=== PATIENT | male | born 1960 | race Caucasian/White ===

== ENCOUNTER 2018-04-04 14:20 | Emergency (ER) | payer OTHER ==
--- NOTE | 2018-04-04 15:04 | RAD REPORT ---
EXAM DESCRIPTION: RAD - Lumbar Spine 3 Views - 04/04/2018 2:56 pm CLINICAL HISTORY: Back pain FINDINGS: Mild anterior subluxation of L5 on S1 is seen. Marked disc space narrowing is present. Mild posterior subluxation of L4 on L5 is present. The bones are osteoporotic. No fracture is visualized
--- NOTE | 2018-04-04 15:38 | EDPHYS ---
Physician Documentation [facility] Name: Gregory Dumont Age: 57 yrs Sex: Male : 1960 Arrival Date: 04/04/2018 Time: 14:22 Bed 15 Private MD: Lucy Gomes ED Physician Cameron Avery HPI: 04/04 15:34 This 57 yrs old Male presents to ER via Ambulatory with complaints of Low rn Back Pain. 15:34 The patient presents with pain that is acute. The symptoms are located in the low back. rn The pain does not radiate. Onset: The symptoms/episode began/occurred 4 day(s) ago. Associated signs and symptoms: The patient has no apparent associated signs or symptoms, Pertinent negatives: abdominal pain, constipation, incontinence, numbness, tingling, urinary retention, weakness. Severity of symptoms: At their worst the symptoms were moderate, in the emergency department the symptoms have improved. The patient has experienced similar episodes in the past. Reports left lower back pain, no trauma, has had before but problems with "tailbone" disks, no bowel/bladder issues. . Historical: - Allergies: 14:30 NKA; aa5 - Home Meds: 15:09 Seroquel 400 mg Oral tab 1 tab once daily [Active]; tw2 - PMHx: 14:30 Bipolar disorder; CVA; HEP C; HYPOGLYCEMIA; Irregular heart rate; aa5 - PSHx: 14:30 None; aa5 - Immunization history:: Adult Immunizations unknown. - Social history:: Smoking status: Patient uses tobacco products, denies chronic smoking, but will smoke occasionally. - Ebola Screening: : No symptoms or risks identified at this time. - Family history:: not pertinent. - Hospitalizations: : No recent hospitalization is reported. ROS: 15:34 Constitutional: Negative for fever, chills, and weight loss, Cardiovascular: Negative rn for chest pain, palpitations, and edema, Respiratory: Negative for shortness of breath, cough, wheezing, and pleuritic chest pain, Abdomen/GI: Negative for abdominal pain, nausea, vomiting, diarrhea, and constipation, Back: Negative for injury MS/Extremity: Negative for injury and deformity, Skin: Negative for injury, rash, and discoloration, Neuro: Negative for headache, weakness, numbness, tingling, and seizure. Exam: 15:34 Constitutional: This is a well developed, well nourished patient who is awake, alert, rn and in no acute distress. Abdomen/GI: Soft, non-tender, with normal bowel sounds. No distension or tympany. No guarding or rebound. No evidence of tenderness throughout. Back: No spinal tenderness. No costovertebral tenderness. Full range of motion. Skin: Warm, dry with normal turgor. Normal color with no rashes, no lesions, and no evidence of cellulitis. MS/ Extremity: Pulses equal, no cyanosis. Neurovascular intact. Full, normal range of motion. Equal circumference. Neuro: Awake and alert, GCS 15, oriented to person, place, time, and situation. Cranial nerves II-XII grossly intact. Motor strength 5/5 in all extremities. Sensory grossly intact. Cerebellar exam normal. Normal gait. Vital Signs: 14:30 BP 116 / 90; Pulse 80; Resp 16 S; Temp 97.9(TE); Pulse Ox 95% on R/A; Weight 72.57 kg aa5 (R); Height 5 ft. 11 in. (180.34 cm) (R); Pain 10/10; 15:14 BP 126 / 86; Pulse 62; Resp 17; Pulse Ox 96% on R/A; tw2 15:56 BP 116 / 89; Pulse 64; Resp 18; Pulse Ox 99% on R/A; tw2 14:30 Body Mass Index 22.32 (72.57 kg, 180.34 cm) aa5 MDM: 14:31 Patient medically screened. rn 15:34 Differential diagnosis: arthritis, strain, Herniated disc. Data reviewed: vital signs, rn nurses notes, radiologic studies, plain films, and as a result, I will discharge patient. Counseling: I had a detailed discussion with the patient and/or guardian regarding: the historical points, exam findings, and any diagnostic results supporting the discharge/admit diagnosis, radiology results, the need for outpatient follow up, to return to the emergency department if symptoms worsen or persist or if there are any questions or concerns that arise at home. Special discussion: I discussed with the patient/guardian in detail that at this point there is no indication for admission to the hospital. It is understood, however, that if the symptoms persist or worsen the patient needs to return immediately for re-evaluation. 04/04 14:38 Order name: XRAY Lumbar Spine (3 Views); Complete Time: 15:34 rn 04/04 14:39 Order name: Urine Dipstick-Ancillary (obtain specimen); Complete Time: 14:56 rn Administered Medications: No medications were administered Disposition: 04/04/18 15:37 Discharged to Home. Impression: Low back pain, Lumbosacral disc herniation and subluxation. - Condition is Stable. - Discharge Instructions: Back Pain, Adult, Herniated Disk, Musculoskeletal Pain. - Prescriptions for Cyclobenzaprine 10 mg Oral Tablet - take 1 tablet by ORAL route every 8 hours As needed; 20 tablet. Medrol (Casimiro) 4 mg Oral Tablets, Dose Pack - take 1 tablet by ORAL route as directed - follow package instructions; 1 packet. - Medication Reconciliation Form, Thank You Letter, Antibiotic Education, Prescription Opioid Use form. - Follow up: Private Physician; When: As needed; Reason: Recheck today's complaints, Re-evaluation by your physician. - Problem is new. - Symptoms have improved. Signatures: Dispatcher [employer] EDMS Cameron Avery MD MD rn Calderon, Audri RN RN aa5 Kaylee Tate RN RN tw2 Corrections: (The following items were deleted from the chart) 15:57 15:37 04/04/2018 15:37 Discharged to Home. Impression: Low back pain; Lumbosacral disc tw2 herniation and subluxation. Condition is Stable. Forms are Medication Reconciliation Form, Thank You Letter, Antibiotic Education, Prescription Opioid Use. Follow up: Private Physician; When: As needed; Reason: Recheck today's complaints, Re-evaluation by your physician. Problem is new. Symptoms have improved. rn
--- NOTE | 2018-04-04 15:38 | ER ---
Nurse's Notes [facility] Name: Gregory Dumont Age: 57 yrs Sex: Male : 1960 Arrival Date: 04/04/2018 Time: 14:22 Bed 15 Private MD: Lucy Gomes Diagnosis: Low back pain;Lumbosacral disc herniation and subluxation Presentation: 04/04 14:28 Presenting complaint: Patient states: left low back pain that began 4 days ago. Pt aa5 denies urinary symptoms, denies pain radiating, denies known injury. Transition of care: patient was not received from another setting of care. Onset of symptoms was March 2018. Risk Assessment: Do you want to hurt yourself or someone else? Patient reports no desire to harm self or others. Initial Sepsis Screen: Does the patient meet any 2 criteria? No. Patient's initial sepsis screen is negative. Does the patient have a suspected source of infection? No. Patient's initial sepsis screen is negative. Care prior to arrival: None. 14:28 Method Of Arrival: Ambulatory aa5 14:28 Acuity: MARION 4 aa5 Triage Assessment: 15:57 General: Behavior is calm. tw2 Historical: - Allergies: 14:30 NKA; aa5 - Home Meds: 15:09 Seroquel 400 mg Oral tab 1 tab once daily [Active]; tw2 - PMHx: 14:30 Bipolar disorder; CVA; HEP C; HYPOGLYCEMIA; Irregular heart rate; aa5 - PSHx: 14:30 None; aa5 - Immunization history:: Adult Immunizations unknown. - Social history:: Smoking status: Patient uses tobacco products, denies chronic smoking, but will smoke occasionally. - Ebola Screening: : No symptoms or risks identified at this time. - Family history:: not pertinent. - Hospitalizations: : No recent hospitalization is reported. Screenin:08 Abuse screen: Denies threats or abuse. Nutritional screening: No deficits noted. tw2 Tuberculosis screening: No symptoms or risk factors identified. Fall Risk None identified. Assessment: 14:30 General: Appears in no apparent distress. Pain: Complains of pain in left low back and tw2 right low back. Neuro: Level of Consciousness is awake, alert, obeys commands, Oriented to person, place, time, situation. Cardiovascular: Denies chest pain, palpitations, Heart tones S1 S2 Capillary refill < 3 seconds Patient's skin is warm and dry. Respiratory: Airway is patent Respiratory effort is even, unlabored, Respiratory pattern is regular, symmetrical, Breath sounds are clear bilaterally. GI: Abdomen is round non-distended, Bowel sounds present X 4 quads. : No signs and/or symptoms were reported regarding the genitourinary system. EENT: No signs and/or symptoms were reported regarding the EENT system. EENT:. Derm: No signs and/or symptoms reported regarding the dermatologic system. Musculoskeletal: Range of motion: intact in all extremities, Reports pain in low back area. 15:14 Reassessment: Patient appears in no apparent distress at this time. No changes from tw2 previously documented assessment. Patient and/or family updated on plan of care and expected duration. Pain level reassessed. Patient is alert, oriented x 3, equal unlabored respirations, skin warm/dry/pink. 15:56 Reassessment: Patient appears in no apparent distress at this time. No changes from tw2 previously documented assessment. Patient and/or family updated on plan of care and expected duration. Pain level reassessed. Patient is alert, oriented x 3, equal unlabored respirations, skin warm/dry/pink. Vital Signs: 14:30 BP 116 / 90; Pulse 80; Resp 16 S; Temp 97.9(TE); Pulse Ox 95% on R/A; Weight 72.57 kg aa5 (R); Height 5 ft. 11 in. (180.34 cm) (R); Pain 10/10; 15:14 BP 126 / 86; Pulse 62; Resp 17; Pulse Ox 96% on R/A; tw2 15:56 BP 116 / 89; Pulse 64; Resp 18; Pulse Ox 99% on R/A; tw2 14:30 Body Mass Index 22.32 (72.57 kg, 180.34 cm) aa5 ED Course: 14:22 Patient arrived in ED. sb2 14:22 Lucy Gomes MD is Private Physician. sb2 14:29 Arm band placed on. aa5 14:30 Triage completed. aa5 14:30 Bed in low position. Call light in reach. Pulse ox on. NIBP on. tw2 14:31 Cameron Avery MD is Attending Physician. rn 14:39 Tate, Kaylee, RN is Primary Nurse. tw2 14:54 Patient moved to radiology via wheelchair. ml 14:54 X-ray completed. Patient tolerated procedure well. ml 14:54 Patient moved back from radiology. ml 14:55 XRAY Lumbar Spine (3 Views) In Process Unspecified. EDMS 15:56 No provider procedures requiring assistance completed. Patient did not have IV access tw2 during this emergency room visit. Administered Medications: No medications were administered Outcome: 15:37 Discharge ordered by . rn 15:56 Discharged to home ambulatory, with significant other. tw2 15:56 Condition: stable 15:56 Discharge instructions given to patient, significant other, Instructed on discharge instructions, follow up and referral plans. no drinking with medication, no driving heavy equipment, medication usage, Demonstrated understanding of instructions, follow-up care, medications, Prescriptions given X 2. 15:57 Patient left the ED. tw2 Signatures: Dispatcher [employer] EDMS Norma Leon Cameron Avery MD MD rn Calderon, Audri, RN RN aa5 Kaylee Tate RN RN tw2 Roro Cheng sb2 Corrections: (The following items were deleted from the chart) 14:31 14:28 Presenting complaint: Patient states: left low back pain that began 4 days ago. aa5 Pt denies urinary symptoms, denies pain radiating. aa5
[2018-04-04 16:04] VITALS: TEMP 97.9
[2018-04-04 16:06] VITALS: BP 116/89; O2SAT 99
== END 2018-04-04 15:57 | disposition home or self-care (01) ==
LOC: ER 14:20
DX: M51.27 Other intervertebral disc displacement, lumbosacral region (principal); B19.20 Unspecified viral hepatitis C without hepatic coma; E16.2 Hypoglycemia, unspecified; F17.200 Nicotine dependence, unspecified, uncomplicated; Z86.73 Personal history of transient ischemic attack (TIA), and cerebral infarction without residual deficits
CPT/HCPCS: 72100; 99283

== ENCOUNTER 2018-04-22 18:32 | Emergency (ER) | payer OTHER ==
[2018-04-22] MEDS ORDERED: CODEINE 30MG/APAP 300MG TAB ONE (20:07)
--- NOTE | 2018-04-22 20:21 | RAD REPORT ---
EXAM DESCRIPTION: RAD - Knee Right 3 View - 04/22/2018 7:26 pm CLINICAL HISTORY: Right knee pain FINDINGS: Postsurgical changes of a right knee arthroplasty are seen. The prosthesis is in good posi tion without evidence loosening. No fracture or dislocation is seen.
--- NOTE | 2018-04-22 20:50 | ER ---
Nurse's Notes [facility] Name: Gregory Dumont Age: 57 yrs Sex: Male : 1960 Arrival Date: 04/22/2018 Time: 18:37 Bed 23 Private MD: Lucy Gomes Diagnosis: Pain in right knee Presentation: 04/22 18:38 Presenting complaint: Patient states: my R knee is hurting since this morning; both my hj knees have had surgery; denies swelling; denies trauma to the area;. Transition of care: patient was not received from another setting of care. Onset of symptoms was April 22, 2018. Risk Assessment: Do you want to hurt yourself or someone else? Patient reports no desire to harm self or others. Initial Sepsis Screen: Does the patient meet any 2 criteria? No. Patient's initial sepsis screen is negative. Does the patient have a suspected source of infection? No. Patient's initial sepsis screen is negative. Care prior to arrival: None. 18:38 Method Of Arrival: Ambulatory 18:38 Acuity: MARION 4 hj Triage Assessment: 18:40 General: Appears in no apparent distress. uncomfortable, Behavior is calm, cooperative, hj appropriate for age. Pain: Complains of pain in right knee. Historical: - Allergies: 18:40 NKA; hj - Home Meds: 18:40 Seroquel 400 mg Oral tab 1 tab once daily [Active]; Trazodone Oral [Active]; [place] hj Carbonate Oral [Active]; Depakote Oral [Active]; - PMHx: 18:40 Bipolar disorder; CVA; HEP C; HYPOGLYCEMIA; Irregular heart rate; hj - PSHx: 18:40 Knee surgery; hj - Immunization history:: Adult Immunizations not immunized. - Social history:: Smoking status: Patient uses tobacco products, smokes one pack cigarettes per day. Patient/guardian denies using alcohol. - Ebola Screening: : Patient negative for fever greater than or equal to 101.5 degrees Fahrenheit, and additional compatible Ebola Virus Disease symptoms Patient denies exposure to infectious person Patient denies travel to an Ebola-affected area in the 21 days before illness onset. Screenin:40 Abuse screen: Denies threats or abuse. Denies injuries from another. Nutritional hj screening: No deficits noted. Tuberculosis screening: No symptoms or risk factors identified. Fall Risk None identified. Assessment: 19:07 General: Appears in no apparent distress. comfortable, slender, well groomed, well tl3 developed, well nourished, Behavior is calm, cooperative, appropriate for age. Pain: Complains of pain in right knee Pain currently is 8 out of 10 on a pain scale. Neuro: Level of Consciousness is awake, alert, obeys commands, Oriented to person, place, time, situation, Appropriate for age. Cardiovascular: Patient's skin is warm and dry. Respiratory: Airway is patent Respiratory effort is even, unlabored, Respiratory pattern is regular, symmetrical. GI: No signs and/or symptoms were reported involving the gastrointestinal system. : No signs and/or symptoms were reported regarding the genitourinary system. EENT: No signs and/or symptoms were reported regarding the EENT system. Derm: No signs and/or symptoms reported regarding the dermatologic system. Musculoskeletal: No signs and/or symptoms reported regarding the musculoskeletal system. 20:08 Reassessment: Patient appears in no apparent distress at this time. No changes from tl3 previously documented assessment. Patient and/or family updated on plan of care and expected duration. Pain level reassessed. Patient is alert, oriented x 3, equal unlabored respirations, skin warm/dry/pink. 21:30 Reassessment: Patient appears in no apparent distress at this time. No changes from tl3 previously documented assessment. Patient and/or family updated on plan of care and expected duration. Pain level reassessed. Patient is alert, oriented x 3, equal unlabored respirations, skin warm/dry/pink. Vital Signs: 18:41 BP 125 / 93; Pulse 97; Resp 18; Temp 98.0(O); Pulse Ox 96% on R/A; Weight 77.11 kg; Height 5 ft. 11 in. (180.34 cm); Pain 10/10; 20:08 BP 121 / 83; Pulse 70; Resp 18; Pulse Ox 99% ; tl3 21:30 BP 132 / 89; Pulse 71; Resp 18; Pulse Ox 96% ; tl3 18:41 Body Mass Index 23.71 (77.11 kg, 180.34 cm) ED Course: 18:37 Patient arrived in ED. mr 18:37 Lucy Gomes MD is Private Physician. mr 18:39 Triage completed. hj 18:40 Arm band placed on right wrist. hj 18:40 Patient has correct armband on for positive identification. Bed in low position. Call hj light in reach. Side rails up X 1. 18:59 [facility] pm1 18:59 Bjorn Nuno MD is Attending Physician. pm1 19:06 Karena Swenson, RN is Primary Nurse. tl3 19:07 Awaiting radiology results. tl3 19:07 No provider procedures requiring assistance completed. X-ray(s) taken. Patient did not tl3 have IV access during this emergency room visit. 19:26 XRAY Knee RIGHT 3 view In Process Unspecified. EDMS 20:49 Panfilo Ruiz MD is Referral Physician. pm1 Administered Medications: 20:09 Drug: Tylenol #3 (300 mg-30 mg) 1 tablet Route: PO; tl3 Outcome: 20:49 Discharge ordered by . pm1 21:57 Discharged to home ambulatory. mg2 21:57 Condition: good 22:21 Patient left the ED. bb 04/23 01:11 Discharge instructions given to patient, Instructed on discharge instructions, follow tl3 up and referral plans. medication usage, Demonstrated understanding of instructions, follow-up care, medications, Prescriptions given X 1. Signatures: Dispatcher [employer] [facility] Carli Taylor Brenda, RN RN bb Lucas Chavez RN RN Himanshu Yates NP REHAB ASSISTANT pm1 Karena Swenson, NIKI PRINCE tl3 Delroy Hernandez RN RN mg2 Corrections: (The following items were deleted from the chart) 04/22 18:42 18:41 Pulse 97bpm; Resp 18bpm; Pulse Ox 96% RA; Temp 98.0F Oral; 77.11 kg; Height 5 ft. hj 11 in.; BMI: 23.7; Pain 10/10; hj
--- NOTE | 2018-04-22 20:50 | EDPHYS ---
Physician Documentation [facility] Name: Gregory Dumont Age: 57 yrs Sex: Male : 1960 Arrival Date: 04/22/2018 Time: 18:37 Bed 23 Private MD: Lucy Gomes ED Physician Bjorn Nuno HPI: 04/22 19:30 This 57 yrs old Male presents to ER via Ambulatory with complaints of Knee pm1 Pain. 19:30 The patient presents with pain. The complaints affect the right knee. Context: The pm1 problem was sustained at home, resulted from an unknown cause, the patient can fully bear weight, the patient is able to ambulate, Problem is a result from a previous injury: No. Onset: The symptoms/episode began/occurred 2 day(s) ago. Modifying factors: the symptoms are aggravated by movement. Associated signs and symptoms: Pertinent negatives calf tenderness, fever, swelling, warmth. Treatment prior to arrival includes: no previous treatment. Severity of symptoms: in the emergency department the symptoms are unchanged. The patient has not experienced similar symptoms in the past. Patient with bilateral knee surgery from Dr. Dubon 1 year ago. Patient without any knee issues since. Two days ago onset of right knee pain. No trauma. No swelling or redness. No fevers. Historical: - Allergies: 18:40 NKA; hj - Home Meds: 18:40 Seroquel 400 mg Oral tab 1 tab once daily [Active]; Trazodone Oral [Active]; [place] hj Carbonate Oral [Active]; Depakote Oral [Active]; - PMHx: 18:40 Bipolar disorder; CVA; HEP C; HYPOGLYCEMIA; Irregular heart rate; hj - PSHx: 18:40 Knee surgery; hj - Immunization history:: Adult Immunizations not immunized. - Social history:: Smoking status: Patient uses tobacco products, smokes one pack cigarettes per day. Patient/guardian denies using alcohol. - Ebola Screening: : Patient negative for fever greater than or equal to 101.5 degrees Fahrenheit, and additional compatible Ebola Virus Disease symptoms Patient denies exposure to infectious person Patient denies travel to an Ebola-affected area in the 21 days before illness onset. ROS: 19:30 Constitutional: Negative for fever, chills, and weight loss, Eyes: Negative for injury, pm1 pain, redness, and discharge, ENT: Negative for injury, pain, and discharge, Neck: Negative for injury, pain, and swelling, Cardiovascular: Negative for chest pain, palpitations, and edema, Respiratory: Negative for shortness of breath, cough, wheezing, and pleuritic chest pain, Abdomen/GI: Negative for abdominal pain, nausea, vomiting, diarrhea, and constipation, Back: Negative for injury and pain, : Negative for injury, bleeding, discharge, and swelling. 19:30 Skin: Negative for injury, rash, and discoloration, Neuro: Negative for headache, weakness, numbness, tingling, and seizure. 19:30 MS/extremity: Positive for pain, of the right knee, Negative for erythema, swelling. Exam: 19:30 Constitutional: This is a well developed, well nourished patient who is awake, alert, pm1 and in no acute distress. Head/Face: Normocephalic, atraumatic. Eyes: Pupils equal round and reactive to light, extra-ocular motions intact. Lids and lashes normal. Conjunctiva and sclera are non-icteric and not injected. Cornea within normal limits. Periorbital areas with no swelling, redness, or edema. ENT: Nares patent. No nasal discharge, no septal abnormalities noted. Tympanic membranes are normal and external auditory canals are clear. Oropharynx with no redness, swelling, or masses, exudates, or evidence of obstruction, uvula midline. Mucous membranes moist. Neck: Trachea midline, no thyromegaly or masses palpated, and no cervical lymphadenopathy. Supple, full range of motion without nuchal rigidity, or vertebral point tenderness. No Meningismus. Chest/axilla: Normal chest wall appearance and motion. Nontender with no deformity. No lesions are appreciated. Cardiovascular: Regular rate and rhythm with a normal S1 and S2. No gallops, murmurs, or rubs. Normal PMI, no JVD. No pulse deficits. Respiratory: Lungs have equal breath sounds bilaterally, clear to auscultation and percussion. No rales, rhonchi or wheezes noted. No increased work of breathing, no retractions or nasal flaring. Abdomen/GI: Soft, non-tender, with normal bowel sounds. No distension or tympany. No guarding or rebound. No evidence of tenderness throughout. Back: No spinal tenderness. No costovertebral tenderness. Full range of motion. Skin: Warm, dry with normal turgor. Normal color with no rashes, no lesions, and no evidence of cellulitis. 19:30 Musculoskeletal/extremity: Extremities: all appear grossly normal, with no appreciated pain with palpation, ROM: intact in all extremities, full active range of motion, in the right knee, full passive range of motion, in the right knee, Circulation is intact in all extremities. 19:30 Neuro: Orientation: is normal, Motor: moves all fours. Vital Signs: 18:41 BP 125 / 93; Pulse 97; Resp 18; Temp 98.0(O); Pulse Ox 96% on R/A; Weight 77.11 kg; hj Height 5 ft. 11 in. (180.34 cm); Pain 10/10; 20:08 BP 121 / 83; Pulse 70; Resp 18; Pulse Ox 99% ; tl3 21:30 BP 132 / 89; Pulse 71; Resp 18; Pulse Ox 96% ; tl3 18:41 Body Mass Index 23.71 (77.11 kg, 180.34 cm) MDM: 19:00 Patient medically screened. pm1 20:48 Data reviewed: vital signs. Data interpreted: Pulse oximetry: on room air is 99 %. pm1 Interpretation: normal. Counseling: I had a detailed discussion with the patient and/or guardian regarding: the historical points, exam findings, and any diagnostic results supporting the discharge/admit diagnosis, radiology results, the need for outpatient follow up, to return to the emergency department if symptoms worsen or persist or if there are any questions or concerns that arise at home. 04/22 18:42 Order name: XRAY Knee RIGHT 3 view; Complete Time: 20:48 Administered Medications: 20:09 Drug: Tylenol #3 (300 mg-30 mg) 1 tablet Route: PO; tl3 Disposition: 04/22/18 20:49 Discharged to Home. Impression: Pain in right knee. - Condition is Stable. - Discharge Instructions: Knee Pain. - Prescriptions for Ultram 50 mg Oral Tablet - take 1 tablet by ORAL route every 6 hours As needed; 20 tablet. - Medication Reconciliation Form, Thank You Letter, Prescription Opioid Use form. - Follow up: Emergency Department; When: As needed; Reason: Worsening of condition. Follow up: Panfilo Dubon MD; When: 2 - 3 days; Reason: Recheck today's complaints, Continuance of care, Re-evaluation by your physician. - Problem is new. - Symptoms have improved. Addendum: 04/24/2018 09:24 Co-signature as Attending Physician, Bjorn Nuno MD I agree with the assessment and c marcelino plan of care. PA/UX SPECIALIST's history reviewed, patient interviewed, and examined. Signatures: Dispatcher [employer] EDMT Bjorn Nuno MD MD cha Ballard, Brenda, RN RN Lucas Gallego, RN RN Himanshu Mari NP UX SPECIALIST pm1 Karena Swenson RN RN tl3 Corrections: (The following items were deleted from the chart) 04/22 22:21 20:49 04/22/2018 20:49 Discharged to Home. Impression: Pain in right knee. Condition is bb Stable. Forms are Medication Reconciliation Form, Thank You Letter, Antibiotic Education, Prescription Opioid Use. Follow up: Emergency Department; When: As needed; Reason: Worsening of condition. Follow up: Panfilo Dubon; When: 2 - 3 days; Reason: Recheck today's complaints, Continuance of care, Re-evaluation by your physician. Problem is new. Symptoms have improved. pm1
[2018-04-22 22:30] VITALS: TEMP 98
[2018-04-22 22:31] VITALS: BP 121/83; O2SAT 99
== END 2018-04-22 22:21 | disposition home or self-care (01) ==
LOC: ER 18:32
DX: M25.561 Pain in right knee (principal); F17.210 Nicotine dependence, cigarettes, uncomplicated; F31.9 Bipolar disorder, unspecified
CPT/HCPCS: 99283

== ENCOUNTER 2018-06-10 20:49 | Emergency (ER) | payer OTHER ==
--- OUTSIDE RECORDS SUMMARY | 2018-06-10 20:51 | XMS REPORT ---
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
--- OUTSIDE RECORDS SUMMARY | 2018-06-10 20:51 | XMS REPORT ---
:1960 Author Organization e[employer] Care Team Providers Name Role Phone Gomes, Na Provider Role Unavailable Allergies, Adverse Reactions, Alerts Substance Reaction Event Type N.K.D.A. 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 multiple joints Problem Smoker F17.200 Active Problem Essential hypertension I10 Active Problem Other chronic pain G89.29 Active Problem Irritability and anger R45.4 Active Assessment Encounter for tobacco use cessation Z71.6 Active counseling Assessment Smoker F17.200 Active Assessment Essential hypertension I10 Active Assessment Mixed hyperlipidemia E78.2 Active Assessment Mild memory disturbance R41.3 Active Assessment Primary osteoarthritis involving 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
--- NOTE | 2018-06-10 21:47 | RAD REPORT ---
EXAM DESCRIPTION: US - Extremity Nonvascular Complete - 06/10/2018 9:40 pm CLINICAL HISTORY: Left axillary mass and pain COMPARISON: None FINDINGS: Patient has a palpable area within the left axilla. Sonogram does not demonstrate a mass/abscess. IMPRESSION: Unremarkable exam
--- NOTE | 2018-06-10 22:02 | EDPHYS ---
Physician Documentation [facility] Name: Gregory Dumont Age: 58 yrs Sex: Male : 1960 Arrival Date: 06/10/2018 Time: 20:52 Bed 27 Private MD: Lucy Gomes ED Physician Cameron Avery HPI: 06/10 21:30 This 58 yrs old Male presents to ER via Ambulatory with complaints of Arm cp Pain, Insect Bite. 21:30 The patient or guardian complains of pain, that is acute. cp 21:30 The complaints affect the left axilla. Context: resulted from possible spider bite. cp Onset: The symptoms/episode began/occurred today. Treatment prior to arrival includes: over the counter medications. Associated signs and symptoms: Pertinent positives: radiating pain down left arm, Pertinent negatives: fever, numbness, swelling, chest pain. Severity of symptoms: in the emergency department the symptoms have improved, mildly. Historical: - Allergies: 20:58 NKA; sr5 - Home Meds: 22:12 Depakote Oral [Active]; Seroquel 400 mg Oral tab 1 tab once daily [Active]; Trazodone tl3 Oral [Active]; - PMHx: 20:58 Bipolar disorder; CVA; HEP C; HYPOGLYCEMIA; Irregular heart rate; sr5 - PSHx: 20:58 Knee surgery; sr5 - Immunization history:: Adult Immunizations unknown, Last tetanus immunization: > 10 years ago. - Social history:: Smoking status: Patient uses tobacco products, denies chronic smoking, but will smoke occasionally. - Ebola Screening: : Patient negative for fever greater than or equal to 101.5 degrees Fahrenheit, and additional compatible Ebola Virus Disease symptoms. ROS: 21:35 Constitutional: Negative for body aches, chills, fever, poor PO intake. cp 21:35 Cardiovascular: Negative for chest pain, edema, palpitations. cp 21:35 Respiratory: Negative for cough, shortness of breath, wheezing. 21:35 Abdomen/GI: Negative for abdominal pain, nausea, vomiting, and diarrhea. 21:35 MS/extremity: Positive for pain, of the left axilla, Negative for injury or acute deformity, paresthesias. 21:35 All other systems are negative. Exam: 21:40 Constitutional: The patient appears in no acute distress, alert, awake, cp non-diaphoretic, non-toxic, well developed, well nourished. 21:40 Head/Face: Normocephalic, atraumatic. cp 21:40 Eyes: Periorbital structures: appear normal, Conjunctiva: normal, no exudate, no cp injection, Sclera: no appreciated abnormality, Lids and lashes: appear normal, bilaterally. 21:40 ENT: External ear(s): are unremarkable, Nose: is normal, Mouth: Lips: moist, Oral mucosa: moist, Posterior pharynx: is normal, airway is patent. 21:40 Neck: ROM/movement: is normal, is supple. 21:40 Chest/axilla: Inspection: normal, Palpation: is normal, no crepitus, no tenderness. 21:40 Cardiovascular: Rate: normal, Rhythm: regular. 21:40 Respiratory: the patient does not display signs of respiratory distress, Respirations: normal, no use of accessory muscles, no retractions, no splinting, no tachypnea. 21:40 Abdomen/GI: Exam negative for discomfort, distension, guarding, Inspection: abdomen appears normal. 21:40 Back: pain, is absent, ROM is normal. 21:40 Musculoskeletal/extremity: Extremities: grossly normal except: noted in the left axilla: pain, tenderness, ROM: full active range of motion, in the left arm. 21:40 Skin: abscess, not appreciated, cellulitis, is not appreciated. Vital Signs: 20:58 BP 146 / 94; Pulse 84; Resp 18; Temp 98.4; Pulse Ox 95% on R/A; Weight 72.57 kg (R); sr5 Height 5 ft. 11 in. (180.34 cm); Pain 6/10; 21:05 BP 132 / 101 LA Supine (auto/reg); Pulse 79; Resp 19; Temp 98.3(O); Pulse Ox 96% on jp3 R/A; Pain 6/10; 20:58 Body Mass Index 22.32 (72.57 kg, 180.34 cm) sr5 MDM: 21:04 Patient medically screened. cp 21:30 Differential diagnosis: abscess, DVT, cellulitis, insect bite. cp 22:00 Data reviewed: vital signs, nurses notes, radiologic studies, plain films, and as a cp result, I will discharge patient. 22:00 Counseling: I had a detailed discussion with the patient and/or guardian regarding: the cp historical points, exam findings, and any diagnostic results supporting the discharge/admit diagnosis, radiology results, to return to the emergency department if symptoms worsen or persist or if there are any questions or concerns that arise at home. 06/10 21:27 Order name: Extremity Nonvascular Complete; Complete Time: 21:48 EDSC 06/10 21:48 Interpretation: Report reviewed. cp Administered Medications: No medications were administered Disposition: 22:30 Chart complete. cp 06/11 01:59 Co-signature as Attending Physician, Cameron Avery MD. rn Disposition: 06/10/18 22:01 Discharged to Home. Impression: Pain in upper arm - Left Axilla. - Condition is Stable. - Prescriptions for Naprosyn 500 mg Oral Tablet - take 1 tablet by ORAL route 2 times per day take with food; 20 tablet. - Medication Reconciliation Form, Thank You Letter, Antibiotic Education, Prescription Opioid Use form. - Follow up: Private Physician; When: 1 - 2 days; Reason: pain continues. - Problem is new. - Symptoms have improved. Signatures: Dispatcher [employer] [facility] Cameron Avery MD MD rn Page, Corey, PA PA cp Branden Baldwin RN RN sr5 Karena Swenson, RN RN tl3 Corrections: (The following items were deleted from the chart) 06/10 21:27 21:26 Extrmty Nonvasular Limited+US.RAD.BRZ ordered. [facility] 22:12 22:01 06/10/2018 22:01 Discharged to Home. Impression: Pain in upper arm - Left Axilla. tl3 Condition is Stable. Forms are Medication Reconciliation Form, Thank You Letter, Antibiotic Education, Prescription Opioid Use. Follow up: Private Physician; When: 1 - 2 days; Reason: pain continues. Problem is new. Symptoms have improved. cp
--- NOTE | 2018-06-10 22:02 | ER ---
Nurse's Notes [facility] Name: Gregory Dumont Age: 58 yrs Sex: Male : 1960 Arrival Date: 06/10/2018 Time: 20:52 Bed 27 Private MD: Lucy Gomes Diagnosis: Pain in upper arm-Left Axilla Presentation: 06/10 20:56 Presenting complaint: Patient states: LEFT arm pain/knot started 7pm, took 2 tabs sr5 ibuprofen. "Think I might have gotten bite by some insect". Transition of care: patient was not received from another setting of care. Onset of symptoms was June 10, 2018. Risk Assessment: Do you want to hurt yourself or someone else? Patient reports no desire to harm self or others. Initial Sepsis Screen: Does the patient meet any 2 criteria? No. Patient's initial sepsis screen is negative. Does the patient have a suspected source of infection? No. Patient's initial sepsis screen is negative. Care prior to arrival: Medication(s) given: patient RX for pain. 20:56 Method Of Arrival: Ambulatory sr5 20:56 Acuity: MARION 4 sr5 Triage Assessment: 20:58 General: Appears uncomfortable, Behavior is calm, cooperative. Pain: Complains of pain sr5 in left arm Pain currently is 6 out of 10 on a pain scale. Quality of pain is described as throbbing. Neuro: No deficits noted. Cardiovascular: No deficits noted. Respiratory: No deficits noted. 22:10 Bite description: by mite, animal information:. tl3 22:11 Bite description: bite sustained to left axilla. tl3 22:12 Bite description: animal information: vaccination(s) is not applicable. tl3 Historical: - Allergies: 20:58 NKA; sr5 - Home Meds: 22:12 Depakote Oral [Active]; Seroquel 400 mg Oral tab 1 tab once daily [Active]; Trazodone tl3 Oral [Active]; - PMHx: 20:58 Bipolar disorder; CVA; HEP C; HYPOGLYCEMIA; Irregular heart rate; sr5 - PSHx: 20:58 Knee surgery; sr5 - Immunization history:: Adult Immunizations unknown, Last tetanus immunization: > 10 years ago. - Social history:: Smoking status: Patient uses tobacco products, denies chronic smoking, but will smoke occasionally. - Ebola Screening: : Patient negative for fever greater than or equal to 101.5 degrees Fahrenheit, and additional compatible Ebola Virus Disease symptoms. Screenin:10 Abuse screen: Denies threats or abuse. Nutritional screening: No deficits noted. tl3 Tuberculosis screening: No symptoms or risk factors identified. Fall Risk None identified. Assessment: 21:10 General: Appears in no apparent distress. uncomfortable, well groomed, well developed, tl3 well nourished, Behavior is calm, cooperative, appropriate for age. Pain: Complains of pain in left arm. Neuro: Level of Consciousness is awake, alert, obeys commands, Oriented to person, place, time, situation, Appropriate for age. Cardiovascular: Patient's skin is warm and dry. Respiratory: Airway is patent Respiratory effort is even, unlabored, Respiratory pattern is regular, symmetrical. GI: No signs and/or symptoms were reported involving the gastrointestinal system. : EENT: No signs and/or symptoms were reported regarding the EENT system. Derm: Skin is intact, Skin is pink, warm \\T\\ dry. pt reports possible "mite" under his left arm, now has pain that radiates down arm. Vital Signs: 20:58 BP 146 / 94; Pulse 84; Resp 18; Temp 98.4; Pulse Ox 95% on R/A; Weight 72.57 kg (R); sr5 Height 5 ft. 11 in. (180.34 cm); Pain 6/10; 21:05 BP 132 / 101 LA Supine (auto/reg); Pulse 79; Resp 19; Temp 98.3(O); Pulse Ox 96% on jp3 R/A; Pain 6/10; 20:58 Body Mass Index 22.32 (72.57 kg, 180.34 cm) sr5 ED Course: 20:52 Patient arrived in ED. es 20:52 Lucy Gomes MD is Private Physician. es 20:57 Triage completed. sr5 20:58 Arm band placed on right wrist. sr5 21:04 Bjorn Boyce PA is PHCP. cp 21:04 Cameron Avery MD is Attending Physician. cp 21:10 No provider procedures requiring assistance completed. Patient did not have IV access tl3 during this emergency room visit. 21:13 Placed in gown. Bed in low position. Call light in reach. Side rails up X 1. Pulse ox jp3 on. NIBP on. 21:33 Karena Swenson, RN is Primary Nurse. tl3 21:37 Ultrasound completed. Patient tolerated well. aa4 21:38 Extremity Nonvascular Complete In Process Unspecified. EDMS Administered Medications: No medications were administered Outcome: 22:01 Discharge ordered by MD. cp 22:10 Discharged to home ambulatory. tl3 22:10 Condition: stable 22:10 Discharge instructions given to patient, family, Instructed on discharge instructions, follow up and referral plans. medication usage, Demonstrated understanding of instructions, follow-up care, medications, Prescriptions given X 1. 22:12 Patient left the ED. tl3 Signatures: Dispatcher [employer] EDMS Aida Serrato Amanda aa4 Bjorn Boyce PA PA cp Resecker, Sam, RN RN sr5 Karena Swenson, RN RN tl3 Jc Mae jp3
[2018-06-10 22:26] VITALS: BP 132/101; TEMP 98.3; O2SAT 96
== END 2018-06-10 22:12 | disposition home or self-care (01) ==
LOC: ER 20:49
DX: M79.622 Pain in left upper arm (principal); Z72.0 Tobacco use; F31.9 Bipolar disorder, unspecified; B18.2 Chronic viral hepatitis C; Z86.73 Personal history of transient ischemic attack (TIA), and cerebral infarction without residual deficits
CPT/HCPCS: 76881; 99283

== ENCOUNTER 2018-06-28 19:18 | Emergency (ER) | payer OTHER ==
--- OUTSIDE RECORDS SUMMARY | 2018-06-28 19:20 | XMS REPORT ---
[...] Start Date End Date Status Dosage Zetia [facility] [id number] 10 MG Orally Once Jun 06, Active 1 tablet a day 2018 Results No Known Results Summary Purpose eClinicalWorks Submission
[2018-06-28 20:47] LABS: Absolute Lymphocytes (CBC) 2.2 K/uL (0.7-4.9); Absolute Monocytes 1.2 K/uL (0.1-1.3); Absolute Neutrophil 9.6 K/uL (1.8-8.0); Basophils % 0.6 % (0-1.3); Hematocrit 45.3 % (39.6-49.0); MCH 31.9 pg (27.0-35.0); MCV 93.8 fL (80-100); MPV 9.9 fL (7.6-11.3); Monocytes % 8.7 % (3.3-12.3); RBC Red Blood Cell Count 4.83 M/uL (4.33-5.43)
[2018-06-28 20:53] LABS: Protime INR 0.9
--- NOTE | 2018-06-28 20:55 | RAD REPORT ---
EXAM DESCRIPTION: RAD - Chest Single View - 06/28/2018 8:50 pm CLINICAL HISTORY: Weakness, dizziness, shortness of breath COMPARISON: September 2017 TECHNIQUE: AP portable chest image was obtained 2038 hours . FINDINGS: No focal mass, consolidation or failure finding. Interstitial markings are prominent but n ot clearly different. Heart and vasculature are normal. No measurable pleural effusion and no pneumot horax. No gross bony abnormality seen. No acute aortic findings suspected. IMPRESSION: Mild chronic interstitial lung disease. No significant change from comparison.
--- NOTE | 2018-06-28 20:58 | RAD REPORT ---
EXAM DESCRIPTION: CT - Head Brain Wo Cont - 06/28/2018 8:43 pm CLINICAL HISTORY: Weakness, dizziness, TIA COMPARISON: CT head November 2017 TECHNIQUE: Axial 5 mm thick images of the head were obtained without IV contrast. All CT scans are performed using dose optimization technique as appropriate and may include automated exposure control or mA/KV adjustment according to patient size. FINDINGS: No intracranial hemorrhage, mass, edema or shift of mid-line structures. No acute cortical based infarction seen. No measurable atrophy or chronic ischemic change. There is heterogeneous dimi nished attenuation in the cerebral white matter. Pattern is similar to the prior study. Early onset c hronic ischemic changes possible. Ventricles are normal. Mastoid air cells and visualized portions of the paranasal sinuses are clear. No acute bony findings. IMPRESSION: No acute infarction. No hemorrhage, mass or acute intracranial finding. White matter disease is evident similar to November. This may be early onset chronic ischemic change. Followup nonemergent MRI imaging may be helpful for more sensitive assessment of white matter.
[2018-06-28 21:07] LABS: ALT/SGPT 18 U/L (12-78); AST/SGOT 16 U/L (15-37); Albumin 4.3 g/dL (3.4-5.0); Alkaline Phosphatase 73 U/L (45-117); BUN Blood Urea Nitrogen 14 mg/dL (7-18); Bicarbonate 25 mmol/L (21-32); Bilirubin Direct 0.1 mg/dL (0-0.2); Bilirubin Total 0.4 mg/dL (0.2-1.0); Glucose Level 82 mg/dL (74-106); Magnesium 2.2 mg/dL (1.8-2.4); Potassium 3.8 mmol/L (3.5-5.1); Protein, Total 7.6 g/dL (6.4-8.2); Sodium Level 138 mmol/L (136-145); Troponin (Emerg Dept Use Only) < 0.02 ng/mL (0.0-0.045)
[2018-06-28 22:18] LABS: Urine Blood NEGATIVE (NEG); Urine Glucose NEGATIVE (NEG); Urine Protein NEGATIVE (NEG); Urine Specific Gravity 1.015 (1.005-1.030); Urine pH 6.5 (5.0-7.0)
--- NOTE | 2018-06-28 22:41 | ER ---
Nurse's Notes [facility] Name: Gregory Dumont Age: 58 yrs Sex: Male : 1960 Arrival Date: 06/28/2018 Time: 19:22 Bed 20 Private MD: Lucy Gomes Diagnosis: Transient cerebral ischemic attack, unspecified Presentation: 06/28 19:30 Presenting complaint: Patient states: he is hypoglycemic and had an episode of low bb blood sugar today at approx [id number] he has had similar symptoms in the past but it has been a long time. Symptoms were blurred vision and difficulty speaking he ate some sugar and felt better but is still having a headache now. Transition of care: patient was not received from another setting of care. Onset of symptoms was June 28, 2018. Risk Assessment: Do you want to hurt yourself or someone else? Patient reports no desire to harm self or others. Initial Sepsis Screen: Does the patient meet any 2 criteria? No. Patient's initial sepsis screen is negative. Does the patient have a suspected source of infection? No. Patient's initial sepsis screen is negative. Care prior to arrival: None. 19:30 Method Of Arrival: Ambulatory bb 19:30 Acuity: MARION 3 bb Historical: - Allergies: 19:49 NKA; bb - Home Meds: 19:49 Seroquel 400 mg Oral tab 1 tab once daily [Active]; Depakote Oral [Active]; Trazodone bb Oral [Active]; - PMHx: 19:49 Bipolar disorder; CVA; HEP C; HYPOGLYCEMIA; Irregular heart rate; bb - PSHx: 19:49 Knee surgery; bb - Immunization history:: Adult Immunizations up to date. - Social history:: Smoking status: Patient uses tobacco products, denies chronic smoking, but will smoke occasionally, Patient/guardian denies using alcohol, street drugs. - Ebola Screening: : Patient negative for fever greater than or equal to 101.5 degrees Fahrenheit, and additional compatible Ebola Virus Disease symptoms. Screenin:42 Abuse screen: Denies threats or abuse. Nutritional screening: No deficits noted. jd3 Tuberculosis screening: No symptoms or risk factors identified. Fall Risk Ambulatory Aid- None/Bed Rest/Nurse Assist (0 pts). Gait- Normal/Bed Rest/Wheelchair (0 pts) Mental Status- Oriented to own ability (0 pts). Total Mcdaniel Fall Scale indicates No Risk (0-24 pts). Assessment: 19:40 General: Appears in no apparent distress. uncomfortable, Behavior is calm, cooperative, jd3 appropriate for age. Pain: Complains of pain in head Quality of pain is described as aching, sharp, Is continuous. Neuro: Level of Consciousness is awake, alert, obeys commands, Oriented to person, place, time, situation, Moves all extremities. Full function Speech is normal, Facial symmetry appears normal, Pupils are PERRLA, Intact. Cardiovascular: Capillary refill < 3 seconds Patient's skin is warm and dry. Respiratory: Airway is patent Respiratory effort is even, unlabored, Respiratory pattern is regular, symmetrical. GI: No signs and/or symptoms were reported involving the gastrointestinal system. : No signs and/or symptoms were reported regarding the genitourinary system. EENT: No signs and/or symptoms were reported regarding the EENT system. Derm: Skin is intact, Skin is dry, Skin is normal, Skin temperature is warm. Musculoskeletal: Circulation, motion, and sensation intact. Range of motion: intact in all extremities. 20:17 Reassessment: Patient appears in no apparent distress at this time. No changes from jd3 previously documented assessment. Patient and/or family updated on plan of care and expected duration. Pain level reassessed. Patient is alert, oriented x 3, equal unlabored respirations, skin warm/dry/pink. 21:39 Reassessment: Patient appears in no apparent distress at this time. No changes from jd3 previously documented assessment. Patient and/or family updated on plan of care and expected duration. Pain level reassessed. Patient is alert, oriented x 3, equal unlabored respirations, skin warm/dry/pink. 22:40 Reassessment: Patient appears in no apparent distress at this time. Patient and/or jd3 family updated on plan of care and expected duration. Pain level reassessed. Patient is alert, oriented x 3, equal unlabored respirations, skin warm/dry/pink. Vital Signs: 19:49 BP 134 / 97; Pulse 83; Resp 16 S; Temp 97.6(O); Pulse Ox 96% on R/A; Weight 74.84 kg bb (R); Height 5 ft. 11 in. (180.34 cm) (R); Pain 10/10; 20:17 BP 120 / 81; Pulse 70; Resp 16 S; Pulse Ox 100% on R/A; jd3 21:38 BP 106 / 87; Pulse 65; Resp 20 S; Pulse Ox 95% on R/A; jd3 22:40 BP 124 / 83; Pulse 67; Resp 16 S; Pulse Ox 96% on R/A; jd3 19:49 Body Mass Index 23.01 (74.84 kg, 180.34 cm) bb NIH Stroke Scale Scores: 21:46 NIHSS Score: 0 jr8 ED Course: 19:22 Patient arrived in ED. es 19:23 Lucy Gomes MD is Private Physician. es 19:31 Carlos Kulkarni, NIKI is Primary Nurse. jd3 19:33 Zane Gonzalez PA is PHCP. jr8 19:33 Bjorn Nuno MD is Attending Physician. jr8 19:43 Patient has correct armband on for positive identification. Bed in low position. Call jd3 light in reach. Side rails up X 1. 19:43 Arm band placed on. jd3 19:45 Triage completed. bb 20:[address] sj 20:36 EKG done, by ED staff, reviewed by Zane NORIEGA. jp3 20:40 Inserted saline lock: 20 gauge in left antecubital area, using aseptic technique. Blood jd3 collected. 20:42 CT Head Brain wo Cont In Process Unspecified. EDMS 20:50 XRAY Chest (1 view) In Process Unspecified. EDMS 21:38 Urine collected: clean catch specimen, clear, justino colored, Amount Voided: 90mL. jp3 22:40 Tigre Romero MD is Referral Physician. jr8 22:47 No provider procedures requiring assistance completed. IV discontinued, intact, jd3 bleeding controlled, No redness/swelling at site. Pressure dressing applied. Administered Medications: 22:43 Drug: Aspirin 325 mg Route: PO; jd3 22:43 Follow up: Response: Medication administered at discharge. jd3 Outcome: 22:40 Discharge ordered by . jr8 22:47 Discharged to home ambulatory, with family. jd3 22:47 Condition: stable 22:47 Discharge instructions given to patient, family, Instructed on discharge instructions, follow up and referral plans. Demonstrated understanding of instructions, follow-up care. 22:47 Patient left the ED. jd3 NIH Stroke Scale - NIH Stroke Score Date: 06/28/2018 Time: 21:46 Total Score = 0 1a. Level of Consciousness (LOC) - 0(Alert) 1b. Level of Consciousness (LOC) (Year \T\ Age) - 0(Both) 1c. LOC Commands (Open \T\ Closes Eyes/Cut Off Machine Unloader) - 0(Both) 2. Best Gaze (Lateral Gaze Paresis) - 0(Normal) 3. Visual Field Loss - 0(No visual loss) 4. Facial Palsy - 0(Normal) 5a. Left Arm: Motor (10-second hold) - 0(No drift) 5b. Right Arm: Motor (10-second hold) - 0(No drift) 6a. Left Leg: Motor (5-second hold - always test supine) - 0(No drift) 6b. Right Leg: Motor (5-second hold - always test supine) - 0(No drift) 7. Limb Ataxia (finger/nose \T\ heel/armstrong - test with eyes open) - 0(Absent) 8. Sensory Loss (pinprick arms/legs/face) - 0(Normal) 9. Best Language: Aphasia (description/naming/reading) - 0(No aphasia) 10. Dysarthria (speech clarity - read or repeat words) - 0(Normal) 11. Extinction and Inattention (visual/tactile/auditory/spatial/personal) - 0(No abnormality) Initials: mihaela Signatures: Dispatcher [employer] Aida Bowie Susan sj Ballard, Brenda, RN RN bb Roszak, Josh, PA PA jr8 Davies, Jonathon, RN RN jJc Ham jp3
--- NOTE | 2018-06-28 22:41 | EDPHYS ---
Physician Documentation [facility] Name: Gregory Dumont Age: 58 yrs Sex: Male : 1960 Arrival Date: 06/28/2018 Time: 19:22 Bed 20 Private MD: Lucy Gomes ED Physician Bjorn Nuno HPI: 06/28 21:46 This 58 yrs old Male presents to ER via Ambulatory with complaints of PROBLEM jr8 WITH SUGAR. 21:46 Onset: The symptoms/episode began/occurred acutely, today. Duration: This was a single jr8 incident. The symptoms are alleviated by nothing. The symptoms are aggravated by nothing. Associated signs and symptoms: The patient has no apparent associated signs or symptoms. Severity of symptoms: At their worst the symptoms were moderate in the emergency department the symptoms have resolved. Patient's baseline: Neuro: alert and fully oriented, Motor: no deficits, Ambulation: walks without assistance, Speech: normal. It is unknown whether or not the patient has had similar symptoms in the past. The patient has not recently seen a physician. At approximately 18:30 tonight patient had sudden onset of slurred speech, blurred vision, left hand numbness, and weakness lasting approximately one hour. Resolved administered sugar packets. Patient currently at baseline. Stated that this has happened in past. Continues to complain of mild headache. Historical: - Allergies: 19:49 NKA; bb - Home Meds: 19:49 Seroquel 400 mg Oral tab 1 tab once daily [Active]; Depakote Oral [Active]; Trazodone bb Oral [Active]; - PMHx: 19:49 Bipolar disorder; CVA; HEP C; HYPOGLYCEMIA; Irregular heart rate; bb - PSHx: 19:49 Knee surgery; bb - Immunization history:: Adult Immunizations up to date. - Social history:: Smoking status: Patient uses tobacco products, denies chronic smoking, but will smoke occasionally, Patient/guardian denies using alcohol, street drugs. - Ebola Screening: : Patient negative for fever greater than or equal to 101.5 degrees Fahrenheit, and additional compatible Ebola Virus Disease symptoms. ROS: 21:46 Eyes: Negative for injury, pain, redness, and discharge, ENT: Negative for injury, jr8 pain, and discharge, Neck: Negative for injury, pain, and swelling, Cardiovascular: Negative for chest pain, palpitations, and edema, Respiratory: Negative for shortness of breath, cough, wheezing, and pleuritic chest pain, Abdomen/GI: Negative for abdominal pain, nausea, vomiting, diarrhea, and constipation, Back: Negative for injury and pain, MS/Extremity: Negative for injury and deformity, Skin: Negative for injury, rash, and discoloration. 21:46 Neuro: Positive for headache, numbness, speech changes, weakness, Negative for altered mental status, dizziness, gait disturbance, loss of consciousness, syncope. Exam: 21:46 Radiologist reports: No acute findings jr8 21:46 Head/Face: Normocephalic, atraumatic. Eyes: Pupils equal round and reactive to light, extra-ocular motions intact. Lids and lashes normal. Conjunctiva and sclera are non-icteric and not injected. Cornea within normal limits. Periorbital areas with no swelling, redness, or edema. ENT: Nares patent. No nasal discharge, no septal abnormalities noted. Tympanic membranes are normal and external auditory canals are clear. Oropharynx with no redness, swelling, or masses, exudates, or evidence of obstruction, uvula midline. Mucous membranes moist. Neck: Trachea midline, no thyromegaly or masses palpated, and no cervical lymphadenopathy. Supple, full range of motion without nuchal rigidity, or vertebral point tenderness. No Meningismus. Cardiovascular: Regular rate and rhythm with a normal S1 and S2. No gallops, murmurs, or rubs. Normal PMI, no JVD. No pulse deficits. Respiratory: Lungs have equal breath sounds bilaterally, clear to auscultation and percussion. No rales, rhonchi or wheezes noted. No increased work of breathing, no retractions or nasal flaring. Abdomen/GI: Soft, non-tender, with normal bowel sounds. No distension or tympany. No guarding or rebound. No evidence of tenderness throughout. Back: No spinal tenderness. No costovertebral tenderness. Full range of motion. Skin: Warm, dry with normal turgor. Normal color with no rashes, no lesions, and no evidence of cellulitis. MS/ Extremity: Pulses equal, no cyanosis. Neurovascular intact. Full, normal range of motion. Neuro: Awake and alert, GCS 15, oriented to person, place, time, and situation. Cranial nerves II-XII grossly intact. Motor strength 5/5 in all extremities. Sensory grossly intact. Cerebellar exam normal. Normal gait. Vital Signs: 19:49 BP 134 / 97; Pulse 83; Resp 16 S; Temp 97.6(O); Pulse Ox 96% on R/A; Weight 74.84 kg bb (R); Height 5 ft. 11 in. (180.34 cm) (R); Pain 10/10; 20:17 BP 120 / 81; Pulse 70; Resp 16 S; Pulse Ox 100% on R/A; jd3 21:38 BP 106 / 87; Pulse 65; Resp 20 S; Pulse Ox 95% on R/A; jd3 22:40 BP 124 / 83; Pulse 67; Resp 16 S; Pulse Ox 96% on R/A; jd3 19:49 Body Mass Index 23.01 (74.84 kg, 180.34 cm) bb NIH Stroke Scale Scores: 21:46 NIHSS Score: 0 jr MDM: 19:33 Patient medically screened. foster 21:46 Data reviewed: vital signs, nurses notes, lab test result(s), EKG, radiologic studies, [facility] CT scan, plain films. Data interpreted: Pulse oximetry: on room air is 95 %. Interpretation: normal. Counseling: I had a detailed discussion with the patient and/or guardian regarding: the historical points, exam findings, and any diagnostic results supporting the discharge/admit diagnosis, lab results, radiology results. ED course: Patient had complete resolution of symptoms. More then likely from blood glucose or TIA. Patient not a TPA candidate . 22:36 ED course: Patient has never had a clinical diagnosis or documented Low BGL before. mihaela Stated that he has gone by this because his mother had it and thought that that is what he was having. Explained to him that there is suspicion for TIA's. Sugar was fine here. Should be admitted and seen by neurologist for further workup. Patient stated that he cannot leave his at home a lone and must leave but would follow up out patient syed. Will give him aspirin here and follow up information since he does not want to be admitted . 06/28 20:18 Order name: Basic Metabolic Panel; Complete Time: 21:14 8 06/28 20:18 Order name: CBC with Diff; Complete Time: 21:14 8 06/28 20:18 Order name: LFT's; Complete Time: 21:14 06/28 20:18 Order name: Magnesium; Complete Time: 21:14 06/28 20:18 Order name: PT-INR; Complete Time: 21:46 06/28 20:18 Order name: Troponin (emerg Dept Use Only); Complete Time: 21:14 06/28 20:18 Order name: XRAY Chest (1 view); Complete Time: 21:14 06/28 20:18 Order name: EKG; Complete Time: 20:19 06/28 20:18 Order name: Cardiac monitoring; Complete Time: 20:21 06/28 20:18 Order name: CT Head Brain wo Cont; Complete Time: 21:14 06/28 20:19 Order name: Nye; Complete Time: 22:19 06/28 21:39 Order name: Urine Dipstick--Ancillary (enter results); Complete Time: 22:19 mt 06/28 21:48 Order name: Glucose, Ancillary Testing; Complete Time: 21:50 EDMS 06/28 20:18 Order name: EKG - Nurse/Tech; Complete Time: 20:48 [facility] 06/28 20:18 Order name: IV Saline Lock; Complete Time: 20:37 [facility] 06/28 20:18 Order name: Labs collected and sent; Complete Time: 20:48 06/28 20:18 Order name: O2 Per Protocol; Complete Time: 20:21 06/28 20:18 Order name: O2 Sat Monitoring; Complete Time: 20:20 [facility] 06/28 20:18 Order name: Urine Dipstick-Ancillary (obtain specimen); Complete Time: 21:41 06/28 20:18 Order name: Glucose Level; Complete Time: 20:20 Administered Medications: 22:43 Drug: Aspirin 325 mg Route: PO; jd3 22:43 Follow up: Response: Medication administered at discharge. jd3 Disposition: 06/29 06:49 Co-signature as Attending Physician, Bjorn Nuno MD I agree with the assessment and foster plan of care. Disposition: 06/28/18 22:40 Discharged to Home. Impression: Transient cerebral ischemic attack, unspecified. - Condition is Stable. - Discharge Instructions: Stroke Prevention, Transient Ischemic Attack. - Medication Reconciliation Form, Thank You Letter, Antibiotic Education, Prescription Opioid Use form. - Follow up: Tigre Romero MD; When: 1 - 2 days; Reason: Recheck today's complaints, Continuance of care, Re-evaluation by your physician. - Problem is new. - Symptoms are resolved. NIH Stroke Scale - NIH Stroke Score Date: 06/28/2018 Time: 21:46 Total Score = 0 1a. Level of Consciousness (LOC) - 0(Alert) 1b. Level of Consciousness (LOC) (Year \T\ Age) - 0(Both) 1c. LOC Commands (Open \T\ Closes Eyes/Wallpaper Installer) - 0(Both) 2. Best Gaze (Lateral Gaze Paresis) - 0(Normal) 3. Visual Field Loss - 0(No visual loss) 4. Facial Palsy - 0(Normal) 5a. Left Arm: Motor (10-second hold) - 0(No drift) 5b. Right Arm: Motor (10-second hold) - 0(No drift) 6a. Left Leg: Motor (5-second hold - always test supine) - 0(No drift) 6b. Right Leg: Motor (5-second hold - always test supine) - 0(No drift) 7. Limb Ataxia (finger/nose \T\ heel/armstrong - test with eyes open) - 0(Absent) 8. Sensory Loss (pinprick arms/legs/face) - 0(Normal) 9. Best Language: Aphasia (description/naming/reading) - 0(No aphasia) 10. Dysarthria (speech clarity - read or repeat words) - 0(Normal) 11. Extinction and Inattention (visual/tactile/auditory/spatial/personal) - 0(No abnormality) Initials: jr8 Signatures: Dispatcher [employer] EDAL Bjorn Nuno MD MD cha Ballard, Brenda, RN RN Zane Snell PA PA jr8 Davies, Jonathon, RN RN jd3 Corrections: (The following items were deleted from the chart) 06/28 22:47 22:40 06/28/2018 22:40 Discharged to Home. Impression: Transient cerebral jd3 ischemic attack, unspecified. Condition is Stable. Forms are Medication Reconciliation Form, Thank You Letter, Antibiotic Education, Prescription Opioid Use. Follow up: Tigre Romero; When: 1 - 2 days; Reason: Recheck today's complaints, Continuance of care, Re-evaluation by your physician. Problem is new. Symptoms are resolved. jr8
[2018-06-28] MEDS ORDERED: ASPIRIN 325 MG TAB ONE (22:48)
[2018-06-28 23:11] VITALS: TEMP 97.6
[2018-06-28 23:15] VITALS: BP 124/83; O2SAT 96
--- NOTE | 2018-06-29 11:06 | EKG ---
Test Date: 2018-06-28 Test Time: 20:33:34 City Letter Carrier: DARLEEN MEASUREMENT RESULTS: Intervals: Rate: 63 MS: 150 QRSD: 100 QT: 422 QTc: 431 [place]: P: 40 MS: 150 QRS: 57 T: 34 INTERPRETIVE STATEMENTS: Normal sinus rhythm Normal ECG Compared to ECG 09/19/2017 20:28:21 Sinus bradycardia no longer present Electronically Signed On 06-29-18 11:03:51 CDT by Hoang Burns
== END 2018-06-28 22:47 | disposition home or self-care (01) ==
LOC: ER 19:18
DX: G45.9 Transient cerebral ischemic attack, unspecified (principal); F31.9 Bipolar disorder, unspecified; Z72.0 Tobacco use
CPT/HCPCS: 36415; 70450; 71045; 80048; 80076; 80178; 81003; 82962; 83735; 84484; 85025; 85610; 93005; 99284

== ENCOUNTER 2018-10-14 12:16 | Emergency (ER) | payer OTHER ==
--- OUTSIDE RECORDS SUMMARY | 2018-10-14 12:17 | XMS REPORT ---
[...] Start Date End Date Status Dosage Zetia [facility] [id number] 10 MG Orally Once Jun 06, Active 1 tablet a day 2018 Results No Known Results Summary Purpose eClinicalWorks Submission
--- NOTE | 2018-10-14 14:48 | ER ---
Nurse's Notes [facility] Name: Gregory Dumont Age: 58 yrs Sex: Male : 1960 Arrival Date: 10/14/2018 Time: 12:22 Bed 18 Private MD: Lucy Gomes Diagnosis: Low back pain-chronic Presentation: 10/14 12:41 Presenting complaint: Patient states: coccyx pain started last night, states he has had sv this pain since he was 20 y.o. Transition of care: patient was not received from another setting of care. Onset of symptoms was October 13, 2018. Care prior to arrival: None. 12:41 Method Of Arrival: Wheelchair sv 12:41 Acuity: MARION 4 sv 12:41 Method Of Arrival: EMS: [facility] ss 15:01 Risk Assessment: Do you want to hurt yourself or someone else? Patient reports no ss desire to harm self or others. Initial Sepsis Screen: Does the patient meet any 2 criteria? No. Patient's initial sepsis screen is negative. Does the patient have a suspected source of infection? No. Patient's initial sepsis screen is negative. Historical: - Allergies: 12:42 NKA; sv - PMHx: 12:42 Bipolar disorder; CVA; HEP C; HYPOGLYCEMIA; Irregular heart rate; sv - PSHx: 12:42 Knee surgery; sv - Immunization history:: Flu vaccine is not up to date. - Social history:: Smoking status: Patient uses tobacco products, smokes one-half pack cigarettes per day. - Ebola Screening: : No symptoms or risks identified at this time. Screenin:15 Abuse screen: Denies threats or abuse. Denies injuries from another. Nutritional ss screening: No deficits noted. Tuberculosis screening: No symptoms or risk factors identified. Never had TB. Fall Risk None identified. Assessment: 14:15 General: Appears in no apparent distress. comfortable, Behavior is calm, cooperative, ss Denies fever, feeling ill, fatigue, chills. Pain: Complains of pain in coccyx Pain currently is 10 out of 10 on a pain scale. Quality of pain is described as aching, Is continuous, chronic. Neuro: Level of Consciousness is awake, alert, obeys commands, Oriented to person, place, time, situation. Neuro: Gait is steady. Cardiovascular: Capillary refill < 3 seconds is brisk in bilateral Patient's skin is warm and dry. Respiratory: Airway is patent Respiratory effort is even, unlabored, Respiratory pattern is regular, symmetrical. GI: Patient currently denies abdominal pain, diarrhea, nausea, vomiting. EENT: Throat is clear. Derm: Skin is intact, is healthy with good turgor, Skin is dry, Skin is pink, warm \T\ dry. normal. Musculoskeletal: Circulation, motion, and sensation intact. Range of motion: intact in all extremities, Swelling absent. Vital Signs: 12:42 BP 107 / 77; Pulse 78; Resp 18; Temp 97.3; Pulse Ox 99% ; Weight 77.11 kg; Height 5 ft. sv 11 in. (180.34 cm); Pain 10/10; 12:42 Body Mass Index 23.71 (77.11 kg, 180.34 cm) sv ED Course: 12:22 Patient arrived in ED. mr 12:22 Lucy Gomes MD is Private Physician. mr 12:41 Triage completed. sv 13:57 Lily Graves FNP-C is [facility]. kb 13:57 Shahnaz Miles MD is Attending Physician. kb 14:15 Patient has correct armband on for positive identification. Bed in low position. Call ss light in reach. 14:45 Aura Jacobs RN is Primary Nurse. ss 14:59 No provider procedures requiring assistance completed. Patient did not have IV access ss during this emergency room visit. Administered Medications: 14:51 Drug: [place] 10 mg-325 mg 1 tabs Route: PO; ss 14:56 Follow up: Response: No adverse reaction; Medication administered at discharge. ss Outcome: 14:47 Discharge ordered by MD. kb 14:59 Discharged to home ambulatory. ss 14:59 Condition: good 14:59 Discharge instructions given to patient, Instructed on discharge instructions, follow up and referral plans. Demonstrated understanding of instructions, follow-up care. 15:02 Patient left the ED. ss Signatures: Lily Graves FNP-C FNP-Ckb Verde, Stephanie, RN RN Elaine Taylor mr Aura Jacobs, NIKI RN ss Corrections: (The following items were deleted from the chart) 15:01 12:41 Transition of care: patient was not received from another setting of care. sv ss
--- NOTE | 2018-10-14 14:48 | EDPHYS ---
Physician Documentation [facility] Name: Gregory Dumont Age: 58 yrs Sex: Male : 1960 Arrival Date: 10/14/2018 Time: 12:22 Bed 18 Private MD: Lucy Gomes ED Physician Shahnaz Miles HPI: 10/14 15:38 This 58 yrs old Male presents to ER via EMS with complaints of Back Pain. kb 15:38 The patient presents with pain that is chronic, with no known mechanism of injury. The kb symptoms are located in the low back, coccyx area. Onset: The symptoms/episode began/occurred 15 year(s) ago. The pain does not radiate. Associated signs and symptoms: The patient has no apparent associated signs or symptoms. The problem was sustained without known cause. Modifying factors: The patient symptoms are alleviated by nothing, the patient symptoms are aggravated by any movement. Severity of symptoms: At their worst the symptoms were moderate, in the emergency department the symptoms are unchanged. The patient has experienced similar episodes in the past, chronically. The patient has not recently seen a physician. Pt reports low back/coccyx pain that started 15 years ago. Has been seen multiple times and told he needed surgery, but he hasn't seen anyone to have it done. . Historical: - Allergies: 12:42 NKA; sv - PMHx: 12:42 Bipolar disorder; CVA; HEP C; HYPOGLYCEMIA; Irregular heart rate; sv - PSHx: 12:42 Knee surgery; sv - Immunization history:: Flu vaccine is not up to date. - Social history:: Smoking status: Patient uses tobacco products, smokes one-half pack cigarettes per day. - Ebola Screening: : No symptoms or risks identified at this time. ROS: 15:37 Constitutional: Negative for fever, chills, and weight loss, Cardiovascular: Negative kb for chest pain, palpitations, and edema, Respiratory: Negative for shortness of breath, cough, wheezing, and pleuritic chest pain, Abdomen/GI: Negative for abdominal pain, nausea, vomiting, diarrhea, and constipation, MS/Extremity: Negative for injury and deformity, Skin: Negative for injury, rash, and discoloration, Neuro: Negative for headache, weakness, numbness, tingling, and seizure. 15:37 Back: Positive for pain at rest, pain with movement, of the sacrum. Exam: 15:37 Constitutional: This is a well developed, well nourished patient who is awake, alert, kb and in no acute distress. Head/Face: Normocephalic, atraumatic. Chest/axilla: Normal chest wall appearance and motion. Nontender with no deformity. No lesions are appreciated. Cardiovascular: Regular rate and rhythm with a normal S1 and S2. No gallops, murmurs, or rubs. Normal PMI, no JVD. No pulse deficits. Respiratory: Lungs have equal breath sounds bilaterally, clear to auscultation and percussion. No rales, rhonchi or wheezes noted. No increased work of breathing, no retractions or nasal flaring. Abdomen/GI: Soft, non-tender, with normal bowel sounds. No distension or tympany. No guarding or rebound. No evidence of tenderness throughout. Skin: Warm, dry with normal turgor. Normal color with no rashes, no lesions, and no evidence of cellulitis. MS/ Extremity: Pulses equal, no cyanosis. Neurovascular intact. Full, normal range of motion. Neuro: Awake and alert, GCS 15, oriented to person, place, time, and situation. Cranial nerves II-XII grossly intact. Motor strength 5/5 in all extremities. Sensory grossly intact. Cerebellar exam normal. Normal gait. 15:37 Back: pain, that is mild, that is moderate, of the sacrum, ROM is painful, with all movement, normal spinal alignment noted. 15:56 Neuro: Orientation: is normal, to person, place, time \T\ situation. Mentation: is kb normal, Memory: is normal, Cranial nerves: grossly normal, Cerebellar function: is grossly normal, Motor: is normal, Sensation: is normal, Gait: is steady. Vital Signs: 12:42 BP 107 / 77; Pulse 78; Resp 18; Temp 97.3; Pulse Ox 99% ; Weight 77.11 kg; Height 5 ft. sv 11 in. (180.34 cm); Pain 10/10; 12:42 Body Mass Index 23.71 (77.11 kg, 180.34 cm) sv MDM: 13:57 Patient medically screened. kb 15:38 Data reviewed: vital signs, nurses notes. Data interpreted: Pulse oximetry: on room air kb is 99 %. Interpretation: normal. Counseling: I had a detailed discussion with the patient and/or guardian regarding: the historical points, exam findings, and any diagnostic results supporting the discharge/admit diagnosis, the need for outpatient follow up, a family practitioner, a neurosurgeon, to return to the emergency department if symptoms worsen or persist or if there are any questions or concerns that arise at home. Administered Medications: 14:51 Drug: [place] 10 mg-325 mg 1 tabs Route: PO; 14:56 Follow up: Response: No adverse reaction; Medication administered at discharge. Disposition: 17:28 Co-signature as Attending Physician, Shahnaz Miles MD. ma2 Disposition: 10/14/18 14:47 Discharged to Home. Impression: Low back pain - chronic. - Condition is Stable. - Discharge Instructions: Back Pain, Adult, [id number]. - Medication Reconciliation Form, Thank You Letter, Antibiotic Education, Prescription Opioid Use form. - Follow up: Emergency Department; When: As needed; Reason: Worsening of condition. Follow up: Private Physician; When: 2 - 3 days; Reason: Recheck today's complaints, Continuance of care, Re-evaluation by your physician. Signatures: Lily Graves, VERO-C VERO-Tracey Vidales RN RN Aura Jacobs RN RN ss Alzahri, Mohammad, MD MD ms2 Corrections: (The following items were deleted from the chart) 15:02 14:47 10/14/2018 14:47 Discharged to Home. Impression: Low back pain - chronic. ss Condition is Stable. Forms are Medication Reconciliation Form, Thank You Letter, Antibiotic Education, Prescription Opioid Use. Follow up: Emergency Department; When: As needed; Reason: Worsening of condition. Follow up: Private Physician; When: 2 - 3 days; Reason: Recheck today's complaints, Continuance of care, Re-evaluation by your physician. kb
[2018-10-14] MEDS ORDERED: HYDROCODONE/APAP 10/325 TAB ONE (14:59)
[2018-10-14 15:30] VITALS: BP 107/77; TEMP 97.3; O2SAT 99
== END 2018-10-14 15:02 | disposition home or self-care (01) ==
LOC: ER 12:16
DX: M54.5 Low back pain (principal); G89.29 Other chronic pain; F17.210 Nicotine dependence, cigarettes, uncomplicated; Z86.73 Personal history of transient ischemic attack (TIA), and cerebral infarction without residual deficits; Z86.19 Personal history of other infectious and parasitic diseases
CPT/HCPCS: 99283

== ENCOUNTER 2019-02-01 09:03 | Emergency (ER) | payer OTHER ==
--- OUTSIDE RECORDS SUMMARY | 2019-02-01 09:05 | XMS REPORT ---
:1960 Author Organization eClinicalWorks Care Team Providers Name Role Phone Gomes, Na Provider Role Unavailable Allergies No Known Allergies Problems Problem Type Condition Code Onset Dates Condition Status Problem Pure hypercholesterolemia E78.00 Active Problem Primary osteoarthritis involving M15.0 Active multiple joints Problem Mixed hyperlipidemia E78.2 Active Problem Otalgia of left ear H92.02 Active Assessment Mild memory disturbance R41.3 Active Problem Dementia in other diseases F02.80 Active classified elsewhere without behavioral disturbance Problem Impacted cerumen of left ear H61.22 Active Problem Paresthesia of skin R20.2 Active Problem Encounter for tobacco use cessation Z71.6 Active counseling Problem Alzheimer''s disease, unspecified G30.9 Active Problem Mild memory disturbance R41.3 Active Problem Smoker F17.200 Active Problem Irritability and anger R45.4 Active Assessment Mixed hyperlipidemia E78.2 Active Problem Bipolar 1 disorder F31.9 Active Problem Arthritis M19.90 Active Problem Elevated blood pressure reading R03.0 Active without diagnosis of hypertension Problem Essential hypertension I10 Active Problem Folliculitis L73.9 Active Problem Other chronic pain G89.29 Active Medications Medication Code System Code Instructions Start End Date Status Dosage Date Vitamin B12 [facility] 90136683237 1000 MCG Orally Active 1 tablet Once a day Ezetimibe [facility] 05532393375 10 MG Orally Once Nov 15, Active 1 tablet a day 2019 Results No Known Results Summary Purpose eClinicalWorks Submission
--- OUTSIDE RECORDS SUMMARY | 2019-02-01 09:05 | XMS REPORT ---
:1960 Author Organization eClinicalWorks Care Team Providers Name Role Phone Gomes, Na Provider Role Unavailable Allergies No Known Allergies Problems Problem Type Condition Code Onset Dates Condition Status Problem Pure hypercholesterolemia E78.00 Active Problem Primary osteoarthritis involving M15.0 Active multiple joints Problem Mixed hyperlipidemia E78.2 Active Problem Otalgia of left ear H92.02 Active Problem Dementia in other diseases F02.80 Active classified elsewhere without behavioral disturbance Problem Impacted cerumen of left ear H61.22 Active Problem Paresthesia of skin R20.2 Active Problem Encounter for tobacco use cessation Z71.6 Active counseling Problem Alzheimer''s disease, unspecified G30.9 Active Problem Mild memory disturbance R41.3 Active Problem Smoker F17.200 Active Problem Irritability and anger R45.4 Active Problem Bipolar 1 disorder F31.9 Active Problem Arthritis M19.90 Active Problem Elevated blood pressure reading R03.0 Active without diagnosis of hypertension Problem Essential hypertension I10 Active Problem Folliculitis L73.9 Active Problem Other chronic pain G89.29 Active Medications Medication Code Code Instructions Start End Date Status Dosage System Date Ranitidine HCl [facility] [place] 48166798511 150 MG Orally Nov 20, Active 1 tablet Twice a day 2019 as needed Results No Known Results Summary Purpose eClinicalWorks Submission
--- OUTSIDE RECORDS SUMMARY | 2019-02-01 09:05 | XMS REPORT ---
:1960 Author Organization eClinicalWorks Care Team Providers Name Role Phone Gomes, Na Provider Role Unavailable Allergies, Adverse Reactions, Alerts Substance Reaction Event Type N.K.D.A. Info Not Available Non Drug Allergy Problems Problem Type Condition Code Onset Dates Condition Status Assessment Paresthesia of skin R20.2 Active Assessment Anesthesia of skin R20.0 Active Assessment Weakness R53.1 Active Assessment Vitamin deficiency E56.9 Active Assessment Mild memory disturbance R41.3 Active Assessment Smoker F17.200 Active Assessment Encounter for tobacco use cessation Z71.6 Active counseling Problem Essential hypertension I10 Active Assessment Dementia in other diseases F02.80 Active classified elsewhere without behavioral disturbance Problem Other chronic pain G89.29 Active Assessment Primary osteoarthritis involving M15.0 Active multiple joints Problem Pure hypercholesterolemia E78.00 Active Problem Primary osteoarthritis involving M15.0 Active multiple joints Problem Mixed hyperlipidemia E78.2 Active Problem Otalgia of left ear H92.02 Active Problem Dementia in other diseases F02.80 Active classified elsewhere without behavioral disturbance Assessment Gastroesophageal reflux disease, K21.9 Active esophagitis presence not specified Assessment Alzheimer''s disease, unspecified G30.9 Active Problem Impacted cerumen of left ear H61.22 Active Assessment Essential hypertension I10 Active Problem Paresthesia of skin R20.2 Active [...] R03.0 Active without diagnosis of hypertension Problem Folliculitis L73.9 Active Medications Medication Code Code Instructions Start End Status Dosage System Date Date Memantine HCl [facility] 21755406235 10 MG Orally Active 1 tablet Twice a day Cyanocobalamin [facility] 46678323709 2500 MCG Active as Sublingual once directed a day Trazodone HCl [facility] 45369440816 100 MG Orally Active 1 tablet Once a day at bedtime Lithobid [facility] 52267672647 300 MG Orally Active 1 tablet twice a day Super B-Complex [facility] 99960079309 - Orally once a Active as day directed Ascorbic Acid [facility] 02119213799 500 MG Orally Active 1 tablet twice a day Ezetimibe ND 71881999643 10 MG Orally Nov 15, Active 1 tablet Once a day 2018 Fish Oil [facility] 16222507478 1000 MG Orally Active 1 capsule Once a day Vitamin B12 [facility] 03271852051 1000 MCG Orally Active 1 tablet Once a day Seroquel [facility] 84190336699 400 MG Orally Dec 14, Active 1 tablet Once a day at 2018 bedtime Atorvastatin [facility] 53475201050 20 MG Orally Inactive 1 tablet Calcium Once a day Vitamin B12 [facility] 59287207960 1000 MCG Orally Active 1 tablet Once a day D3 Maximum [facility] 16539810507 5000 UNIT Active 1 capsule Strength Orally Once a day Melatonin [facility] 92338399207 3 MG Orally Active 1 tablet Once a day at bedtime as needed with food Thiamine [facility] 13917061644 50 MG Orally Active 2 capsules Once a day Co-Enzyme Q-10 [facility] 48978126342 100 MG Orally Active 2 capsule Once a day with a meal Zetia [facility] 47050296691 10 MG Orally Active 1 tablet Once a day Results No Known Results Summary Purpose eClinicalWorks Submission
--- OUTSIDE RECORDS SUMMARY | 2019-02-01 09:05 | XMS REPORT ---
:1960 Author Organization eClinicalWorks Care Team Providers Name Role Phone Gomes, Na Provider Role Unavailable Allergies No Known Allergies Problems Problem Type Condition Code Onset Dates Condition Status Problem Essential hypertension I10 Active Problem Irritability and anger R45.4 Active Problem Smoker F17.200 Active Problem Encounter for tobacco use cessation Z71.6 Active counseling Problem Mild memory disturbance R41.3 Active Problem Paresthesia of skin R20.2 Active Problem Pure hypercholesterolemia E78.00 Active Problem Other chronic pain G89.29 Active Problem Primary osteoarthritis involving M15.0 Active multiple joints Problem Mixed hyperlipidemia E78.2 Active Assessment Primary osteoarthritis involving M15.0 Active multiple joints Problem Elevated blood pressure reading R03.0 Active without diagnosis of hypertension Problem Folliculitis L73.9 Active Assessment Bipolar 1 disorder F31.9 Active Problem Bipolar 1 disorder F31.9 Active Problem Arthritis M19.90 Active Medications Medication Code Code Instructions Start End Date Status Dosage System Date Diclofenac [facility] [place] 08909258501 75 MG Orally May 11, Nov 11, Active 1 tablet Sodium Twice a day 2017 2018 with food or milk Results No Known Results Summary Purpose eClinicalWorks Submission
--- OUTSIDE RECORDS SUMMARY | 2019-02-01 09:05 | XMS REPORT ---
:1960 Author Organization eClinicalWorks Care Team Providers Name Role Phone Gmoes, Na Provider Role Unavailable Allergies No Known [...] Start Date End Date Status Dosage Zetia [facility] [place] 02995229171 10 MG Orally Once Jun 06, Active 1 tablet a day 2018 Results No Known Results Summary Purpose eClinicalWorks Submission
--- OUTSIDE RECORDS SUMMARY | 2019-02-01 09:05 | XMS REPORT ---
:1960 Author Organization eClinicalWorks Care Team Providers Name Role Phone Karla Weinstein Provider Role Unavailable Allergies, Adverse Reactions, Alerts Substance Reaction Event Type N.K.D.A. Info Not Available Non Drug Allergy Problems Problem Type Condition Code Onset Dates Condition Status Problem Pure hypercholesterolemia E78.00 Active Problem Primary osteoarthritis involving M15.0 Active multiple joints Problem Mixed hyperlipidemia E78.2 Active Problem Otalgia of left ear H92.02 Active Assessment Impacted cerumen of left ear H61.22 Active Problem Dementia in other diseases F02.80 Active classified elsewhere without behavioral disturbance Problem Impacted cerumen of left ear H61.22 Active Problem Paresthesia of skin R20.2 Active Problem Encounter for tobacco use cessation Z71.6 Active counseling Problem Alzheimer''s disease, unspecified G30.9 Active Problem Mild memory disturbance R41.3 Active Problem Smoker F17.200 Active Problem Irritability and anger R45.4 Active Assessment Otalgia of left ear H92.02 Active Problem Bipolar 1 disorder F31.9 Active Problem Arthritis M19.90 Active Problem Elevated blood pressure reading R03.0 Active without diagnosis of hypertension Problem Essential hypertension I10 Active Problem Folliculitis L73.9 Active Problem Other chronic pain G89.29 Active Medications Medication Code Code Instructions Start End Status Dosage System Date Date Ascorbic Acid [facility] 47982001839 500 MG Orally Active 1 tablet twice a day Lithobid [facility] 91777357673 300 MG Orally Active 1 tablet twice a day Vitamin B12 ND 56036615883 1000 MCG Orally Active 1 tablet Once a day Fish Oil ND 92548555400 1000 MG Orally Active 1 capsule Once a day Seroquel ND 07368568140 400 MG Orally Dec 14, Active 1 tablet Once a day at 2018 bedtime Zetia ND 99247840534 10 MG Orally Active 1 tablet Once a day Trazodone HCl ND 67724938309 100 MG Orally Active 1 tablet Once a day at bedtime Ezetimibe ND 76863883758 10 MG Orally Nov 15, Active 1 tablet Once a day 2018 Ranitidine HCl [facility] 69553434039 150 MG Orally Nov 20, Active 1 tablet Twice a day 2018 as needed Thiamine [facility] 55273040610 50 MG Orally Active 2 capsules Once a day Melatonin ND 72207160586 3 MG Orally Active 1 tablet Once a day at bedtime as needed with food Ciprodex [facility] 83219465033 0.3-0.1 % Otic Nov 23, Active 4 drops Twice a day 2018 into affected ear Vitamin B12 [facility] 48226980253 1000 MCG Orally Active 1 tablet Once a day Cyanocobalamin [facility] 20642724701 2500 MCG Active as Sublingual once directed a day Memantine HCl [facility] 73832591086 10 MG Orally Active 1 tablet Twice a day Super B-Complex [facility] 67815178578 - Orally once a Active as day directed D3 Maximum [facility] 17021555679 5000 UNIT Active 1 capsule Strength Orally Once a day Co-Enzyme Q-10 [facility] 94940451047 100 MG Orally Active 2 capsule Once a day with a meal Results No Known Results Summary Purpose eClinicalWorks Submission
--- NOTE | 2019-02-01 09:35 | ER ---
Nurse's Notes [facility] Name: Gregory Dumont Age: 58 yrs Sex: Male : 1960 Arrival Date: 02/01/2019 Time: 09:09 Bed 5 Private MD: Lucy Gomes Diagnosis: Rash and other nonspecific skin eruption;Insect bite (nonvenomous) of abdominal wall;Insect bite (nonvenomous) of upper arm-bilateral Presentation: 02/01 09:12 Presenting complaint: Patient states: "I got bed bug bites and I used some bed bug and aa5 flea fogger and now I have hives". 09:12 Transition of care: patient was not received from another setting of care. Onset of aa5 symptoms was January 31, 2019. Risk Assessment: Do you want to hurt yourself or someone else? Patient reports no desire to harm self or others. Care prior to arrival: None. 09:12 Method Of Arrival: Ambulatory aa5 09:12 Acuity: MARION 4 aa5 09:15 Initial Sepsis Screen: Does the patient meet any 2 criteria? No. Patient's initial bp sepsis screen is negative. Does the patient have a suspected source of infection? No. Patient's initial sepsis screen is negative. Triage Assessment: 10:00 General: Appears in no apparent distress. comfortable, Behavior is cooperative, bp appropriate for age, anxious. Historical: - Allergies: 09:12 NKA; aa5 - PMHx: 09:12 Bipolar disorder; CVA; HEP C; HYPOGLYCEMIA; Irregular heart rate; aa5 - PSHx: 09:12 Knee surgery; aa5 - Immunization history:: Adult Immunizations unknown. - Ebola Screening: : No symptoms or risks identified at this time. - Social history:: Smoking status: Patient uses tobacco products, unknown amount. Screenin:22 Abuse screen: Denies threats or abuse. Denies injuries from another. Nutritional bp screening: No deficits noted. Tuberculosis screening: No symptoms or risk factors identified. Fall Risk None identified. Assessment: 09:22 General: Appears in no apparent distress. comfortable, Behavior is cooperative, bp appropriate for age, anxious. Pain: Denies pain. Neuro: Level of Consciousness is awake, alert, obeys commands, Oriented to person, place, time, situation, Appropriate for age. Cardiovascular: No deficits noted. Respiratory: Airway is patent Respiratory effort is even, unlabored, Respiratory pattern is regular, symmetrical. GI: No signs and/or symptoms were reported involving the gastrointestinal system. : No signs and/or symptoms were reported regarding the genitourinary system. EENT: No deficits noted. Derm: Rash noted that is itchy, red, raised. Musculoskeletal: Circulation, motion, and sensation intact. Range of motion: intact in all extremities. Vital Signs: 09:21 BP 131 / 100; Pulse 72; Resp 14; Temp 98; Pulse Ox 92% ; Weight 72.57 kg; bp 10:00 BP 137 / 95; Pulse 75; Resp 16; Pulse Ox 94% ; bp ED Course: 09:09 Patient arrived in ED. mr 09:09 Lucy Gomes MD is Private Physician. mr 09:11 Arm band placed on. aa5 09:16 Himanshu Yates NP is [facility]. pm1 09:16 Marty Sims MD is Attending Physician. pm1 09:21 Triage completed. aa5 09:21 Carlos Eduardo Goddard RN is Primary Nurse. bp 09:22 Patient has correct armband on for positive identification. Bed in low position. Call bp light in reach. Side rails up X2. 10:03 No provider procedures requiring assistance completed. Patient did not have IV access bp during this emergency room visit. Administered Medications: 09:30 Drug: SOLU-Medrol 125 mg Route: IM; Site: right deltoid; bp 10:01 Follow up: Response: No adverse reaction bp 09:30 Drug: Pepcid 20 mg Route: PO; bp 10:01 Follow up: Response: No adverse reaction bp 09:30 Drug: Benadryl 25 mg Route: PO; bp 10:01 Follow up: Response: No adverse reaction bp Outcome: 09:34 Discharge ordered by . pm1 10:03 Discharged to home ambulatory. bp 10:03 Condition: stable 10:03 Discharge instructions given to patient, Instructed on discharge instructions, follow up and referral plans. medication usage, Demonstrated understanding of instructions, follow-up care, medications, Prescriptions given X 3. 10:04 Patient left the ED. bp Signatures: Brandon Elaine Jessie Mcdermott RN RN aa5 Himanshu Yates NP [employer] pm1 Rupesh, Carlos Eduardo, RN RN bp
--- NOTE | 2019-02-01 09:35 | EDPHYS ---
Physician Documentation [facility] Name: Gregory Dumont Age: 58 yrs Sex: Male : 1960 Arrival Date: 02/01/2019 Time: 09:09 Bed 5 Private MD: Lucy Gomes ED Physician Marty Sims HPI: 02/01 09:27 This 58 yrs old Male presents to ER via Ambulatory with complaints of Rash. pm1 09:27 The patient's rash thought to be caused by insect bites, bug spray. The rash is located pm1 on the abdomen, right arm, left arm, right leg and left leg. The rash can be described as urticarial. Onset: The symptoms/episode began/occurred yesterday. Associated signs and symptoms: Pertinent positives: itching, Pertinent negatives: burning sensation, difficulty breathing, swelling of lips, swelling of throat, swelling of tongue, vomiting, wheezing. Severity of symptoms: in the emergency department the symptoms have improved mildly. Treatment given at home: None. The patient has not experienced similar symptoms in the past. The patient has not recently seen a physician. Patient with bites to extremity from bed bugs. He was spraying for them and started getting a rash to his abdomen and extremities that is raised and itchy. The rash to his lower extremities that have now resolved. . Historical: - Allergies: 09:12 NKA; aa5 - PMHx: 09:12 Bipolar disorder; CVA; HEP C; HYPOGLYCEMIA; Irregular heart rate; aa5 - PSHx: 09:12 Knee surgery; aa5 - Immunization history:: Adult Immunizations unknown. - Ebola Screening: : No symptoms or risks identified at this time. - Social history:: Smoking status: Patient uses tobacco products, unknown amount. ROS: 09:27 Constitutional: Negative for fever, chills, and weight loss, Eyes: Negative for injury, pm1 pain, redness, and discharge, ENT: Negative for injury, pain, and discharge, Neck: Negative for injury, pain, and swelling, Cardiovascular: Negative for chest pain, palpitations, and edema, Respiratory: Negative for shortness of breath, cough, wheezing, and pleuritic chest pain, Abdomen/GI: Negative for abdominal pain, nausea, vomiting, diarrhea, and constipation, Back: Negative for injury and pain, : Negative for injury, bleeding, discharge, and swelling, MS/Extremity: Negative for injury and deformity. 09: Neuro: Negative for headache, weakness, numbness, tingling, and seizure. 09: Skin: Positive for rash, of the left arm and right arm and left leg and right leg and abdomen. Exam: : Constitutional: This is a well developed, well nourished patient who is awake, alert, pm1 and in no acute distress. Head/Face: Normocephalic, atraumatic. Eyes: Pupils equal round and reactive to light, extra-ocular motions intact. Lids and lashes normal. Conjunctiva and sclera are non-icteric and not injected. Cornea within normal limits. Periorbital areas with no swelling, redness, or edema. ENT: Nares patent. No nasal discharge, no septal abnormalities noted. Tympanic membranes are normal and external auditory canals are clear. Oropharynx with no redness, swelling, or masses, exudates, or evidence of obstruction, uvula midline. Mucous membranes moist. Neck: Trachea midline, no thyromegaly or masses palpated, and no cervical lymphadenopathy. Supple, full range of motion without nuchal rigidity, or vertebral point tenderness. No Meningismus. Chest/axilla: Normal chest wall appearance and motion. Nontender with no deformity. No lesions are appreciated. Cardiovascular: Regular rate and rhythm with a normal S1 and S2. No gallops, murmurs, or rubs. Normal PMI, no JVD. No pulse deficits. Respiratory: Lungs have equal breath sounds bilaterally, clear to auscultation and percussion. No rales, rhonchi or wheezes noted. No increased work of breathing, no retractions or nasal flaring. Abdomen/GI: Soft, non-tender, with normal bowel sounds. No distension or tympany. No guarding or rebound. No evidence of tenderness throughout. Back: No spinal tenderness. No costovertebral tenderness. Full range of motion. : MS/ Extremity: Pulses equal, no cyanosis. Neurovascular intact. Full, normal range of motion. : Skin: Appearance: normal except for affected area, consistent with urticaria, on the abdomen, right arm and left arm. : Neuro: Orientation: is normal, Motor: is normal, moves all fours. Vital Signs: 09:21 BP 131 / 100; Pulse 72; Resp 14; Temp 98; Pulse Ox 92% ; Weight 72.57 kg; bp 10:00 BP 137 / 95; Pulse 75; Resp 16; Pulse Ox 94% ; bp MDM: 09:22 Patient medically screened. pm1 09:27 Data reviewed: vital signs. Counseling: I had a detailed discussion with the patient pm1 and/or guardian regarding: the historical points, exam findings, and any diagnostic results supporting the discharge/admit diagnosis, the need for outpatient follow up, to return to the emergency department if symptoms worsen or persist or if there are any questions or concerns that arise at home. Administered Medications: 09:30 Drug: SOLU-Medrol 125 mg Route: IM; Site: right deltoid; bp 10:01 Follow up: Response: No adverse reaction bp 09:30 Drug: Pepcid 20 mg Route: PO; bp 10:01 Follow up: Response: No adverse reaction bp 09:30 Drug: Benadryl 25 mg Route: PO; bp 10:01 Follow up: Response: No adverse reaction bp Disposition: 02/01/19 09:34 Discharged to Home. Impression: Rash and other nonspecific skin eruption, Insect bite (nonvenomous) of abdominal wall, Insect bite (nonvenomous) of upper arm - bilateral. - Condition is Stable. - Discharge Instructions: Insect Bite, Rash. - Prescriptions for Benadryl 25 mg Oral Capsule - take 1 capsule by ORAL route every 6 hours As needed; 30 tablet. Pepcid 20 mg Oral Tablet - take 1 tablet by ORAL route every 12 hours for 10 days; 20 tablet. Medrol (Casimiro) 4 mg Oral Tablets, Dose Pack - take 1 tablet by ORAL route as directed - follow package instructions; 1 packet. - Medication Reconciliation Form, Thank You Letter, Antibiotic Education, Prescription Opioid Use form. - Follow up: Emergency Department; When: As needed; Reason: Worsening of condition. Follow up: Private Physician; When: 2 - 3 days; Reason: Recheck today's complaints, Continuance of care, Re-evaluation by your physician. Addendum: 02/04/2019 00:08 Co-signature as Attending Physician, Marty Sims MD. g s Signatures: Jessie Palmer, RN RN aa5 Himanshu Yates, BI[employer] BINDING FOLDER BI[employer] BINDING FOLDER pm1 Sims, Marty, Carlos Eduardo Monson MD, RN RN bp Corrections: (The following items were deleted from the chart) 02/01 09:31 09:27 Patient with bites to extremity from bed bugs. He was spraying for them and pm1 started getting a rash to his abdomen and extremities that is raised and itchy. The rash to his lower extremities that have no resolved. . pm1 10:04 09:34 02/01/2019 09:34 Discharged to Home. Impression: Rash and other nonspecific skin bp eruption; Insect bite (nonvenomous) of abdominal wall; Insect bite (nonvenomous) of upper arm - bilateral. Condition is Stable. Forms are Medication Reconciliation Form, Thank You Letter, Antibiotic Education, Prescription Opioid Use. Follow up: Emergency Department; When: As needed; Reason: Worsening of condition. Follow up: Private Physician; When: 2 - 3 days; Reason: Recheck today's complaints, Continuance of care, Re-evaluation by your physician. pm1
[2019-02-01] MEDS ORDERED: FAMOTIDINE 20 MG TAB ONE (09:42)
[2019-02-01] MEDS ORDERED: METHYLPREDNISOLONE 125 MG INJ ONE (09:42)
[2019-02-01] MEDS ORDERED: DIPHENHYDRAMINE 25 MG TAB/CAP ONE (09:42)
[2019-02-01 10:09] VITALS: TEMP 98
[2019-02-01 10:12] VITALS: BP 137/95; O2SAT 94
== END 2019-02-01 10:04 | disposition home or self-care (01) ==
LOC: ER 09:03
DX: S30.861A Insect bite (nonvenomous) of abdominal wall, initial encounter (principal); S40.862A Insect bite (nonvenomous) of left upper arm, initial encounter; S40.861A Insect bite (nonvenomous) of right upper arm, initial encounter; Z72.0 Tobacco use; Z86.73 Personal history of transient ischemic attack (TIA), and cerebral infarction without residual deficits
CPT/HCPCS: 96372; 99283; J2930

== ENCOUNTER 2019-02-08 15:46 | Emergency (ER) | payer OTHER ==
--- OUTSIDE RECORDS SUMMARY | 2019-02-08 15:48 | XMS REPORT ---
[...] Start Date End Date Status Dosage Zetia [facility] 30402810577 10 MG Orally Once Jun 06, Active 1 tablet a day 2018 Results No Known Results Summary Purpose eClinicalWorks Submission
--- OUTSIDE RECORDS SUMMARY | 2019-02-08 15:48 | XMS REPORT ---
[...] End Date Status Dosage Date Vitamin B12 [facility] 27613763643 1000 MCG Orally Active 1 tablet Once a day Ezetimibe [facility] 52232542783 10 MG Orally Once Nov 15, Active 1 tablet a day 2019 Results No Known Results Summary Purpose eClinicalWorks Submission
--- OUTSIDE RECORDS SUMMARY | 2019-02-08 15:48 | XMS REPORT ---
[...] Status Dosage System Date Date Ascorbic Acid [facility] 14065156534 500 MG Orally Active 1 tablet twice a day Lithobid [facility] 46234152040 300 MG Orally Active 1 tablet twice a day Vitamin B12 ND 03869078399 1000 MCG Orally Active 1 tablet Once a day Fish Oil ND 24694405436 1000 MG Orally Active 1 capsule Once a day Seroquel ND 72195655551 400 MG Orally Dec 14, Active 1 tablet Once a day at 2018 bedtime Zetia ND 19122770277 10 MG Orally Active 1 tablet Once a day Trazodone HCl ND 59880260800 100 MG Orally Active 1 tablet Once a day at bedtime Ezetimibe ND 11048357716 10 MG Orally Nov 15, Active 1 tablet Once a day 2018 Ranitidine HCl [facility] 93016598767 150 MG Orally Nov 20, Active 1 tablet Twice a day 2018 as needed Thiamine [facility] 04606035522 50 MG Orally Active 2 capsules Once a day Melatonin ND 56364441932 3 MG Orally Active 1 tablet Once a day at bedtime as needed with food Ciprodex [facility] 96432946487 0.3-0.1 % Otic Nov 23, Active 4 drops Twice a day 2018 into affected ear Vitamin B12 [facility] 64174014339 1000 MCG Orally Active 1 tablet Once a day Cyanocobalamin [facility] 89036475651 2500 MCG Active as Sublingual once directed a day Memantine HCl [facility] 09470389338 10 MG Orally Active 1 tablet Twice a day Super B-Complex [facility] 90437681647 - Orally once a Active as day directed D3 Maximum [facility] 17171728056 5000 UNIT Active 1 capsule Strength Orally Once a day Co-Enzyme Q-10 [facility] 22731595527 100 MG Orally Active 2 capsule Once a day with a meal Results No Known Results Summary Purpose eClinicalWorks Submission
--- OUTSIDE RECORDS SUMMARY | 2019-02-08 15:48 | XMS REPORT ---
[...] Status Dosage System Date Date Memantine HCl [facility] 47838414378 10 MG Orally Active 1 tablet Twice a day Cyanocobalamin [facility] 56508552431 2500 MCG Active as Sublingual once directed a day Trazodone HCl [facility] 40165954695 100 MG Orally Active 1 tablet Once a day at bedtime Lithobid [facility] 32124113589 300 MG Orally Active 1 tablet twice a day Super B-Complex [facility] 85483215006 - Orally once a Active as day directed Ascorbic Acid [facility] 91456059996 500 MG Orally Active 1 tablet twice a day Ezetimibe ND 45813975143 10 MG Orally Nov 15, Active 1 tablet Once a day 2018 Fish Oil [facility] 12948627558 1000 MG Orally Active 1 capsule Once a day Vitamin B12 [facility] 23689151861 1000 MCG Orally Active 1 tablet Once a day Seroquel [facility] 30912283261 400 MG Orally Dec 14, Active 1 tablet Once a day at 2018 bedtime Atorvastatin [facility] 00544094917 20 MG Orally Inactive 1 tablet Calcium Once a day Vitamin B12 [facility] 12270004014 1000 MCG Orally Active 1 tablet Once a day D3 Maximum [facility] 50339468566 5000 UNIT Active 1 capsule Strength Orally Once a day Melatonin [facility] 82737568068 3 MG Orally Active 1 tablet Once a day at bedtime as needed with food Thiamine [facility] 53521046079 50 MG Orally Active 2 capsules Once a day Co-Enzyme Q-10 [facility] 40987789505 100 MG Orally Active 2 capsule Once a day with a meal Zetia [facility] 04806671534 10 MG Orally Active 1 tablet Once a day Results No Known Results Summary Purpose eClinicalWorks Submission
--- OUTSIDE RECORDS SUMMARY | 2019-02-08 15:48 | XMS REPORT ---
[...] End Date Status Dosage System Date Diclofenac [facility] [place][NOTE 2] 26387292840 75 MG Orally May 11, Nov 11, Active 1 tablet Sodium Twice a day 2017 2018 with food or milk Results No Known Results Summary Purpose eClinicalWorks Submission
--- OUTSIDE RECORDS SUMMARY | 2019-02-08 15:48 | XMS REPORT ---
[...] Date Status Dosage System Date Ranitidine HCl [facility] 32887883241 150 MG Orally Nov 20, Active 1 tablet Twice a day 2019 as needed Results No Known Results Summary Purpose eClinicalWorks Submission
--- NOTE | 2019-02-08 17:23 | RAD REPORT ---
EXAM DESCRIPTION: CT - Head Brain Wo Cont - 02/08/2019 5:02 pm CLINICAL HISTORY: HEADACHE Headache, drowsiness COMPARISON: Head Brain Wo Cont dated 06/28/2018; Head Brain Wo Cont dated 12/09/2017 TECHNIQUE: All CT scans are performed using dose optimization technique as appropriate and may inclu de automated exposure control or mA/KV adjustment according to patient size. FINDINGS: No intracranial hemorrhage, hydrocephalus or extra-axial fluid collection.Mild periventric ular chronic microvascular ischemic changes are seen.No areas of brain edema or evidence of midline s hift. The paranasal sinuses and mastoids are clear. The calvarium is intact. IMPRESSION: No acute intracranial abnormality.
[2019-02-08] MEDS ORDERED: KETOROLAC 30 MG/ML INJ ONE (17:36)
[2019-02-08] MEDS ORDERED: DIPHENHYDRAMINE 50 MG/ML VIAL ONE (17:36)
[2019-02-08] MEDS ORDERED: METOCLOPRAMIDE 10 MG/2mL INJ ONE (17:36)
--- NOTE | 2019-02-08 18:04 | EDPHYS ---
Physician Documentation [facility] Name: Gregory Dumont Age: 58 yrs Sex: Male : 1960 Arrival Date: 02/08/2019 Time: 15:48 Bed 15 Private MD: Lucy Gomes ED Physician Mick Arshad HPI: 02/08 17:17 This 58 yrs old Male presents to ER via Ambulatory with complaints of pm1 Headache. 17:17 The patient complains of pain to the top of head, forehead, left frontal area, left pm1 side of the back of head, left temporal area, right frontal area, right side of the back of head, right temporal area and right side of forehead. The patient describes the headache as aching, constant. Onset: The symptoms/episode began/occurred today, at 12:00. Associated signs and symptoms: Pertinent negatives: dizziness, fever, nausea, neck stiffness, paresthesias, rash, sinus congestion, sinus tenderness, vision changes, vomiting, weakness. Severity of symptoms: in the emergency department the pain is unchanged. Headache History: The patient has had previous headaches and this one is different than previous episodes. The symptoms are alleviated by nothing. the symptoms are aggravated by nothing. The patient has experienced similar episodes in the past, several times. The patient has not recently seen a physician. Historical: - Allergies: 16:22 NKA; ss - PMHx: 16:22 Bipolar disorder; CVA; HEP C; HYPOGLYCEMIA; Irregular heart rate; ss - PSHx: 16:22 Knee surgery; ss - Immunization history:: Adult Immunizations up to date. - Social history:: Smoking status: Patient uses tobacco products, denies chronic smoking, but will smoke occasionally. - Ebola Screening: : Patient denies exposure to infectious person Patient denies travel to an Ebola-affected area in the 21 days before illness onset. ROS: 17:17 Constitutional: Negative for fever, chills, and weight loss, Eyes: Negative for injury, pm1 pain, redness, and discharge, ENT: Negative for injury, pain, and discharge, Neck: Negative for injury, pain, and swelling, Cardiovascular: Negative for chest pain, palpitations, and edema, Respiratory: Negative for shortness of breath, cough, wheezing, and pleuritic chest pain, Abdomen/GI: Negative for abdominal pain, nausea, vomiting, diarrhea, and constipation, Back: Negative for injury and pain, : Negative for injury, bleeding, discharge, and swelling, MS/Extremity: Negative for injury and deformity, Skin: Negative for injury, rash, and discoloration. 17:17 Neuro: Positive for headache. Exam: 17:17 Constitutional: This is a well developed, well nourished patient who is awake, alert, pm1 and in no acute distress. Head/Face: Normocephalic, atraumatic. Eyes: Pupils equal round and reactive to light, extra-ocular motions intact. Lids and lashes normal. Conjunctiva and sclera are non-icteric and not injected. Cornea within normal limits. Periorbital areas with no swelling, redness, or edema. ENT: Nares patent. No nasal discharge, no septal abnormalities noted. Tympanic membranes are normal and external auditory canals are clear. Oropharynx with no redness, swelling, or masses, exudates, or evidence of obstruction, uvula midline. Mucous membranes moist. Neck: Trachea midline, no thyromegaly or masses palpated, and no cervical lymphadenopathy. Supple, full range of motion without nuchal rigidity, or vertebral point tenderness. No Meningismus. Chest/axilla: Normal chest wall appearance and motion. Nontender with no deformity. No lesions are appreciated. Cardiovascular: Regular rate and rhythm with a normal S1 and S2. No gallops, murmurs, or rubs. Normal PMI, no JVD. No pulse deficits. Respiratory: Lungs have equal breath sounds bilaterally, clear to auscultation and percussion. No rales, rhonchi or wheezes noted. No increased work of breathing, no retractions or nasal flaring. Abdomen/GI: Soft, non-tender, with normal bowel sounds. No distension or tympany. No guarding or rebound. No evidence of tenderness throughout. Back: No spinal tenderness. No costovertebral tenderness. Full range of motion. Skin: Warm, dry with normal turgor. Normal color with no rashes, no lesions, and no evidence of cellulitis. MS/ Extremity: Pulses equal, no cyanosis. Neurovascular intact. Full, normal range of motion. 17:17 Neuro: Orientation: is normal, Mentation: is normal, Cranial nerves: CN II- XII are normal as tested, Cerebellar function: normal finger to nose testing, Motor: moves all fours, strength is normal, strength is 5/5 in all extremities, Sensation: is normal, no obvious gross deficits. Vital Signs: 16:22 BP 121 / 78; Pulse 67; Resp 16; Temp 97.7(TE); Pulse Ox 95% on R/A; Weight 72.57 kg; ss Height 5 ft. 11 in. (180.34 cm); Pain 10/10; 17:20 BP 119 / 77; Pulse 63; Resp 17; Pulse Ox 99% ; rb1 18:20 BP 118 / 80; Pulse 64; Resp 17; Pulse Ox 99% on R/A; Pain 8/10; rb1 16:22 Body Mass Index 22.32 (72.57 kg, 180.34 cm) ss MDM: 16:35 Patient medically screened. pm1 17:17 Data reviewed: vital signs. Data interpreted: Pulse oximetry: on room air is 95 %. pm1 Interpretation: normal. 18:02 Counseling: I had a detailed discussion with the patient and/or guardian regarding: the pm1 historical points, exam findings, and any diagnostic results supporting the discharge/admit diagnosis, radiology results, the need for outpatient follow up, for definitive care, a neurologist, to return to the emergency department if symptoms worsen or persist or if there are any questions or concerns that arise at home. 02/08 16:53 Order name: CT Head Brain wo Cont; Complete Time: 17:27 pm1 Administered Medications: 17:45 Drug: Benadryl 25 mg Route: IVP; Site: right wrist; rb1 17:45 Drug: Reglan 10 mg Route: IVP; Site: right wrist; rb1 17:45 Drug: TORadol 30 mg Route: IVP; Site: right wrist; rb1 Disposition: 02/08/19 18:03 Discharged to Home. Impression: Headache. - Condition is Stable. - Discharge Instructions: General Headache Without Cause. - Medication Reconciliation Form, Thank You Letter, Antibiotic Education, Prescription Opioid Use form. - Follow up: Emergency Department; When: As needed; Reason: Worsening of condition. Follow up: Private Physician; When: 2 - 3 days; Reason: Recheck today's complaints, Continuance of care, Re-evaluation by your physician. - Problem is new. - Symptoms have improved. Addendum: 02/13/2019 10:27 Co-signature as Attending Physician, Mick Arshad MD I agree with the assessment and k dr plan of care. Signatures: Dispatcher [employer] EDSC Mick Arshad MD MD [facility] Aura Jacobs RN RN ss Tara Slaughter RN RN rb1 Himanshu Yates, [employer]PER[employer] pm1 Corrections: (The following items were deleted from the chart) 02/08 19:02 18:03 02/08/2019 18:03 Discharged to Home. Impression: Headache. Condition is Stable. rb1 Forms are Medication Reconciliation Form, Thank You Letter, Antibiotic Education, Prescription Opioid Use. Follow up: Emergency Department; When: As needed; Reason: Worsening of condition. Follow up: Private Physician; When: 2 - 3 days; Reason: Recheck today's complaints, Continuance of care, Re-evaluation by your physician. Problem is new. Symptoms have improved. pm1
--- NOTE | 2019-02-08 18:04 | ER ---
Nurse's Notes [facility] Name: Gregory Dumont Age: 58 yrs Sex: Male : 1960 Arrival Date: 02/08/2019 Time: 15:48 Bed 15 Private MD: Lucy Gomes Diagnosis: Headache Presentation: 02/08 16:20 Presenting complaint: Patient states: generalized headache that began at 1200 today. Pt ss has no other symptoms/ complaints at this time. Transition of care: patient was not received from another setting of care. Onset of symptoms was February 08, 2019. Risk Assessment: Do you want to hurt yourself or someone else? Patient reports no desire to harm self or others. Initial Sepsis Screen: Does the patient meet any 2 criteria? No. Patient's initial sepsis screen is negative. Does the patient have a suspected source of infection? No. Patient's initial sepsis screen is negative. Care prior to arrival: None. 16:20 Method Of Arrival: Ambulatory ss 16:20 Acuity: MARION 3 ss Triage Assessment: 16:35 Headache History: The patient has had previous headaches. Pain: Pain currently is 10 rb1 out of 10 on a pain scale. Also complains of no other associated symptoms. Historical: - Allergies: 16:22 NKA; ss - PMHx: 16:22 Bipolar disorder; CVA; HEP C; HYPOGLYCEMIA; Irregular heart rate; ss - PSHx: 16:22 Knee surgery; ss - Immunization history:: Adult Immunizations up to date. - Social history:: Smoking status: Patient uses tobacco products, denies chronic smoking, but will smoke occasionally. - Ebola Screening: : Patient denies exposure to infectious person Patient denies travel to an Ebola-affected area in the 21 days before illness onset. Screenin:35 Abuse screen: Denies threats or abuse. Nutritional screening: No deficits noted. rb1 Tuberculosis screening: No symptoms or risk factors identified. Fall Risk None identified. Assessment: 16:35 General: Appears in no apparent distress. comfortable, Behavior is calm, cooperative. rb1 16:35 Pain: Complains of pain in top of head Pain currently is 10 out of 10 on a pain scale. rb1 Neuro: Level of Consciousness is awake, alert, obeys commands, Oriented to person, place, time, situation. Cardiovascular: Capillary refill < 3 seconds is brisk in bilateral fingers. Respiratory: Airway is patent Respiratory effort is even, unlabored, Respiratory pattern is regular, symmetrical. GI: No signs and/or symptoms were reported involving the gastrointestinal system. : No signs and/or symptoms were reported regarding the genitourinary system. Derm: Skin is pink, warm \T\ dry. Musculoskeletal: Range of motion: intact in all extremities. 17:35 Reassessment: Patient appears in no apparent distress at this time. No changes from rb1 previously documented assessment. 18:33 Reassessment: Patient appears in no apparent distress at this time. Patient and/or rb1 family updated on plan of care and expected duration. Pain level reassessed. Patient is alert, oriented x 3, equal unlabored respirations, skin warm/dry/pink. Patient states feeling better. Vital Signs: 16:22 BP 121 / 78; Pulse 67; Resp 16; Temp 97.7(TE); Pulse Ox 95% on R/A; Weight 72.57 kg; ss Height 5 ft. 11 in. (180.34 cm); Pain 10/10; 17:20 BP 119 / 77; Pulse 63; Resp 17; Pulse Ox 99% ; rb1 18:20 BP 118 / 80; Pulse 64; Resp 17; Pulse Ox 99% on R/A; Pain 8/10; rb1 16:22 Body Mass Index 22.32 (72.57 kg, 180.34 cm) ED Course: 15:48 Patient arrived in ED. as 15:48 Lucy Gomes MD is Private Physician. as 16:22 Triage completed. ss 16:22 Arm band placed on right wrist. ss 16:35 Himanshu Yates NP is PHCP. pm1 16:35 Mick Arshad MD is Attending Physician. pm1 16:35 Patient has correct armband on for positive identification. Bed in low position. Call rb1 light in reach. Side rails up X 1. laboratory monitor on. Pulse ox on. NIBP on. Warm blanket given. 17:01 CT completed. Patient tolerated procedure well. Patient moved to CT via wheelchair. nj Patient moved back from CT. 17:02 CT Head Brain wo Cont In Process Unspecified. EDMS 17:22 Tara Slaughter, NIKI is Primary Nurse. rb1 17:43 Inserted saline lock: 22 gauge in right wrist, using aseptic technique. Blood collected.rb1 19:02 No provider procedures requiring assistance completed. IV discontinued, intact, rb1 bleeding controlled, No redness/swelling at site. Pressure dressing applied. Administered Medications: 17:45 Drug: Benadryl 25 mg Route: IVP; Site: right wrist; rb1 17:45 Drug: Reglan 10 mg Route: IVP; Site: right wrist; rb1 17:45 Drug: TORadol 30 mg Route: IVP; Site: right wrist; rb1 Outcome: 18:03 Discharge ordered by . pm1 19:02 Patient left the ED. rb1 19:02 Discharged to home ambulatory. rb1 19:02 Condition: stable 19:02 Discharge instructions given to patient, Instructed on discharge instructions, follow up and referral plans. Demonstrated understanding of instructions, follow-up care, Prescriptions given X none Signatures: Dispatcher [employer] EDMS Padmini Donovan Shelby, RN RN ss Tara Slaughter RN RN rb1 Hmianshu Yates, [employer]ICE SUPERVISOR pm1 Reagan Ruiz
[2019-02-08 20:16] VITALS: BP 121/78; TEMP 97.7; O2SAT 95
== END 2019-02-08 19:02 | disposition home or self-care (01) ==
LOC: ER 15:46
DX: R51 Headache (principal); F31.9 Bipolar disorder, unspecified; Z72.0 Tobacco use
CPT/HCPCS: 70450; 96375; 96374; 99285; J2765

== ENCOUNTER 2019-02-23 11:56 | Observation (INO) | payer OTHER ==
--- OUTSIDE RECORDS SUMMARY | 2019-02-23 11:58 | XMS REPORT ---
[...] Start Date End Date Status Dosage Zetia [facility] 81144489687 10 MG Orally Once Jun 06, Active 1 tablet a day 2018 Results No Known Results Summary Purpose eClinicalWorks Submission
--- OUTSIDE RECORDS SUMMARY | 2019-02-23 11:59 | XMS REPORT ---
[...] Status Dosage System Date Ranitidine HCl [facility] 13134591268 150 MG Orally Nov 20, Active 1 tablet Twice a day 2019 as needed Results No Known Results Summary Purpose eClinicalWorks Submission
--- OUTSIDE RECORDS SUMMARY | 2019-02-23 11:59 | XMS REPORT ---
[...] End Date Status Dosage System Date Diclofenac [facility] 94662456325 75 MG Orally May 11, Nov 11, Active 1 tablet Sodium Twice a day 2017 2018 with food or milk Results No Known Results Summary Purpose eClinicalWorks Submission
--- OUTSIDE RECORDS SUMMARY | 2019-02-23 11:59 | XMS REPORT ---
[...] Status Dosage System Date Date Ascorbic Acid [facility] 08835864466 500 MG Orally Active 1 tablet twice a day Lithobid [facility] 47160717041 300 MG Orally Active 1 tablet twice a day Vitamin B12 ND 48461399684 1000 MCG Orally Active 1 tablet Once a day Fish Oil ND 69499130185 1000 MG Orally Active 1 capsule Once a day Seroquel ND 34042539460 400 MG Orally Dec 14, Active 1 tablet Once a day at 2018 bedtime Zetia ND 93414043624 10 MG Orally Active 1 tablet Once a day Trazodone HCl ND 73050051574 100 MG Orally Active 1 tablet Once a day at bedtime Ezetimibe ND 01286660103 10 MG Orally Nov 15, Active 1 tablet Once a day 2018 Ranitidine HCl [facility] 73643858823 150 MG Orally Nov 20, Active 1 tablet Twice a day 2018 as needed Thiamine [facility] 84843671226 50 MG Orally Active 2 capsules Once a day Melatonin ND 55011667318 3 MG Orally Active 1 tablet Once a day at bedtime as needed with food Ciprodex [facility] 83090273781 0.3-0.1 % Otic Nov 23, Active 4 drops Twice a day 2018 into affected ear Vitamin B12 [facility] 14580936139 1000 MCG Orally Active 1 tablet Once a day Cyanocobalamin [facility] 51632730104 2500 MCG Active as Sublingual once directed a day Memantine HCl [facility] 86479862850 10 MG Orally Active 1 tablet Twice a day Super B-Complex [facility] 49125503156 - Orally once a Active as day directed D3 Maximum [facility] 66942685660 5000 UNIT Active 1 capsule Strength Orally Once a day Co-Enzyme Q-10 [facility] 12942579294 100 MG Orally Active 2 capsule Once a day with a meal Results No Known Results Summary Purpose eClinicalWorks Submission
--- OUTSIDE RECORDS SUMMARY | 2019-02-23 11:59 | XMS REPORT ---
[...] Dosage System Date Date Memantine HCl [facility] 72558949576 10 MG Orally Active 1 tablet Twice a day Cyanocobalamin [facility] 88827338100 2500 MCG Active as Sublingual once directed a day Trazodone HCl [facility] 73049078029 100 MG Orally Active 1 tablet Once a day at bedtime Lithobid [facility] 43315056512 300 MG Orally Active 1 tablet twice a day Super B-Complex [facility] 90949627755 - Orally once a Active as day directed Ascorbic Acid [facility] 98776362445 500 MG Orally Active 1 tablet twice a day Ezetimibe ND 70232254245 10 MG Orally Nov 15, Active 1 tablet Once a day 2018 Fish Oil [facility] 82561579665 1000 MG Orally Active 1 capsule Once a day Vitamin B12 [facility] 87661593605 1000 MCG Orally Active 1 tablet Once a day Seroquel [facility] 16626284359 400 MG Orally Dec 14, Active 1 tablet Once a day at 2018 bedtime Atorvastatin [facility] 12812716649 20 MG Orally Inactive 1 tablet Calcium Once a day Vitamin B12 [facility] 15055508356 1000 MCG Orally Active 1 tablet Once a day D3 Maximum [facility] 22177506207 5000 UNIT Active 1 capsule Strength Orally Once a day Melatonin [facility] 02726510836 3 MG Orally Active 1 tablet Once a day at bedtime as needed with food Thiamine [facility] 17426808793 50 MG Orally Active 2 capsules Once a day Co-Enzyme Q-10 [facility] 49428266638 100 MG Orally Active 2 capsule Once a day with a meal Zetia [facility] 91471105647 10 MG Orally Active 1 tablet Once a day Results No Known Results Summary Purpose eClinicalWorks Submission
--- OUTSIDE RECORDS SUMMARY | 2019-02-23 11:59 | XMS REPORT ---
[...] End Date Status Dosage Date Vitamin B12 [facility] 13447107052 1000 MCG Orally Active 1 tablet Once a day Ezetimibe [facility] 07370065000 10 MG Orally Once Nov 15, Active 1 tablet a day 2019 Results No Known Results Summary Purpose eClinicalWorks Submission
[2019-02-23] MEDS ORDERED: NA CHLORIDE 0.9% 1,000 ML ONE (15:21)
[2019-02-23 15:22] LABS: Urine Blood NEGATIVE (NEG); Urine Glucose NEGATIVE (NEG); Urine Protein TRACE (NEG); Urine Specific Gravity 1.015 (1.005-1.030)
[2019-02-23 15:36] LABS: Urine Bacteria <20 /HPF (NONE SEEN); Urine RBC <5 /HPF (NONE SEEN)
[2019-02-23 15:37] LABS: Urine Culture Reflex Order NOT NEEDED
[2019-02-23 15:40] LABS: Absolute Lymphocytes (CBC) 1.8 K/uL (0.7-4.9); Absolute Monocytes 1.4 K/uL (0.1-1.3); Absolute Neutrophil 11.3 K/uL (1.8-8.0); Basophils % 0.6 % (0-1.3); Eosinophils % 3.1 % (0-4.4); Hematocrit 48.2 % (39.6-49.0); Lymphocytes % 11.9 % (15.3-44.8); Monocytes % 9.4 % (3.3-12.3); RBC Red Blood Cell Count 5.13 M/uL (4.33-5.43)
[2019-02-23 15:54] LABS: ALT/SGPT 20 U/L (12-78); AST/SGOT 16 U/L (15-37); Albumin 4.3 g/dL (3.4-5.0); Alkaline Phosphatase 84 U/L (45-117); BUN Blood Urea Nitrogen 10 mg/dL (7-18); Bicarbonate 23 mmol/L (21-32); Bilirubin Direct < 0.1 mg/dL (0-0.2); Bilirubin Total 0.5 mg/dL (0.2-1.0); Glucose Level 88 mg/dL (74-106); Lipase 205 U/L (73-393); Potassium 4.1 mmol/L (3.5-5.1); Protein, Total 8.3 g/dL (6.4-8.2); Sodium Level 140 mmol/L (136-145)
--- NOTE | 2019-02-23 16:23 | RAD REPORT ---
EXAM DESCRIPTION: CT - Abdomen Pelvis W Contrast - 02/23/2019 4:10 pm CLINICAL HISTORY: Right-sided abdominal pain for 2 days, history of hep C COMPARISON: CT study April 2017 TECHNIQUE: Biphasic, helical CT imaging of the abdomen and pelvis was performed following 100 ml non -ionic IV contrast. No oral contrast administered. All CT scans are performed using dose optimization technique as appropriate and may include automated exposure control or mA/KV adjustment according to patient size. FINDINGS: Trace pleural fluid in the left lung base. No acute lung base parenchymal process. No ward cardial thickening effusion. The liver, spleen, and pancreas show no suspicious findings. Gallbladder and biliary tree are also wi thout suspicious finding. Symmetric renal function is seen with no hydronephrosis or suspicious renal mass. No pyelonephritis o r acute parenchymal process. Punctate nonobstructing calyx calculi seen in each kidney. Partially gisselle led urinary bladder shows no suspicious finding. Prostate gland and seminal vesicles within normal ra nge. Multiple phleboliths are seen along the pelvic floor. Small bilateral fat filled inguinal hernia s are present. No adrenal abnormalities. Benign lower pole right renal cyst present. No gastric dilatation or wall thickening. No dilated small bowel loops. There are several mildly prom inent fluid-filled distal small bowel loops. No appendicitis findings. Moderate stool volume is prese nt in the colon from cecum through splenic flexure. No acute findings in this portion of the colon. I n the mid descending colon there is short segment of wall thickening of the colon. Patient has divert iculosis in this region. There is stranding in the adjacent fat. More distally the sigmoid colon show s prominent diverticulosis with prominence of the sarabia. No adjacent inflammatory stranding. Mass of the colon is doubtful. No free fluid seen. There is no pneumatosis. No bulky lymphadenopathy, suspicious mass or omental thickening. Vascular calcifications. No acute bone finding. Prominent degenerative changes at the L5-S1 disc spac e. IMPRESSION: Short-segment mild diverticulitis change in the mid descending colon left mid abdomen. Correlation is needed with history and exam findings. Provided history indicated right-sided abdomina l pain. No pyelonephritis, cholecystitis or other finding to explain focal right-sided abdominal pain. Patient has a few mildly prominent distal small bowel loops in a nonspecific enteritis would be possi ble. Trace left pleural effusion.
--- NOTE | 2019-02-23 16:35 | ER ---
Nurse's Notes [facility] Name: Gregory Dumont Age: 58 yrs Sex: Male : 1960 Arrival Date: 02/23/2019 Time: 11:58 Bed 30 Private MD: Lucy Gomes Diagnosis: Recurrent Diverticulitis Presentation: 02/23 12:57 Presenting complaint: Patient states: my pancreas or something on my RIGHT side of my tw2 stomach, i had some cephaxin left over but it has been going on for 2 days. Transition of care: patient was not received from another setting of care. Onset of symptoms was February 23, 2019. Risk Assessment: Do you want to hurt yourself or someone else? Patient reports no desire to harm self or others. Initial Sepsis Screen: Does the patient meet any 2 criteria? No. Patient's initial sepsis screen is negative. Does the patient have a suspected source of infection? No. Patient's initial sepsis screen is negative. Care prior to arrival: None. 12:57 Method Of Arrival: Ambulatory tw2 12:57 Acuity: MARION 3 tw2 Triage Assessment: 12:59 General: Appears in no apparent distress. unkempt, Behavior is calm, cooperative, tw2 appropriate for age. Pain: Complains of pain in left upper quadrant. GI: Reports lower abdominal pain, upper abdominal pain, Patient currently denies nausea. Historical: - Allergies: 12:59 NKA; tw2 - Home Meds: 12:59 Trazodone Oral [Active]; Kalihiwai Carbonate Oral [Active]; "sleeping pill ambersol or tw2 something like that" [Active]; 13:00 Zolpidem Tartrate Oral [Active]; tw2 - PMHx: 12:59 Bipolar disorder; CVA; HEP C; HYPOGLYCEMIA; Irregular heart rate; tw2 - PSHx: 12:59 Knee surgery; tw2 - Immunization history:: Adult Immunizations. - Social history:: Smoking status: Patient/guardian denies using tobacco, Smoking status: Patient uses tobacco products, cigars. - Ebola Screening: : Patient denies travel to an Ebola-affected area in the 21 days before illness onset. Screenin:58 Abuse screen: Denies threats or abuse. Denies injuries from another. Nutritional mg2 screening: No deficits noted. Tuberculosis screening: No symptoms or risk factors identified. 17:54 Fall Risk IV access (20 points). mg2 Assessment: 15:05 General: Appears in no apparent distress. comfortable, Behavior is calm, cooperative. mg2 Pain: Complains of pain in left upper quadrant Pain does not radiate. Pain currently is 5 out of 10 on a pain scale. Quality of pain is described as aching, Pain began gradually, 2-3 days ago. Is intermittent. Neuro: Level of Consciousness is awake, alert, obeys commands, Oriented to person, place, time, situation. Cardiovascular:. Respiratory: Airway is patent Respiratory effort is even, unlabored, Respiratory pattern is regular, symmetrical. GI: Bowel sounds present X 4 quads. Abd is soft Abd is non tender. EENT: No signs and/or symptoms were reported regarding the EENT system. Derm: Skin is intact, is healthy with good turgor, Skin is pink, warm \\T\\ dry. normal. Musculoskeletal: Circulation, motion, and sensation intact. Capillary refill < 3 seconds. 16:46 Reassessment: patient informed about the plan for hospitalization. patient agreed. mg2 Vital Signs: 13:00 BP 109 / 82; Pulse 82; Resp 17; Temp 98.0(O); Pulse Ox 95% on R/A; Weight 77.11 kg (R); tw2 Height 5 ft. 11 in. (180.34 cm); Pain 10/10; 15:06 BP 117 / 89; Pulse 78; Resp 18; Pulse Ox 100% on R/A; mg2 16:10 BP 127 / 93; Pulse 80; Resp 18; Temp 98.1; Pulse Ox 100% on R/A; mg2 18:01 BP 123 / 78; Pulse 81; Resp 18; Temp 98(O); Pulse Ox 100% on R/A; Pain 0/10; mg2 13:00 Body Mass Index 23.71 (77.11 kg, 180.34 cm) tw2 ED Course: 11:58 Patient arrived in ED. rg4 11:58 Lucy Gomes MD is Private Physician. rg4 12:57 Triage completed. tw2 12:57 Arm band placed on. tw2 14:51 Cad[facility]aj[facility]C [facility]. snw 14:51 Mick Arshad MD is Attending Physician. snw 14:57 Delroy Hernandez, RN is Primary Nurse. mg2 15:04 No provider procedures requiring assistance completed. mg2 15:06 Patient has correct armband on for positive identification. Door closed. Warm blanket mg2 given. 15:17 Radiology exam delayed due to lab results not completed at this time. (BUN/Creatinine). vm2 15:18 Inserted saline lock: 20 gauge in right antecubital area, using aseptic technique. mg2 Blood collected. 15:41 Radiology exam delayed due to lab results not completed at this time. (BUN/Creatinine). vm2 16:10 CT Abd/Pelvis - W/Contrast In Process Unspecified. EDMS 16:10 CT completed. Patient tolerated procedure well. Patient moved to CT. Patient moved back ls3 from CT. 16:33 Sara Serrano MD is Hospitalizing Provider. snw 17:54 Patient admitted, IV remains in place. mg2 Administered Medications: 15:18 Drug: NS 0.9% 1000 ml Route: IV; Rate: 125 ml/hr; Site: right antecubital; mg2 18:00 Follow up: Response: No adverse reaction; IV Status: Infusion continued upon admission; mg2 IV Intake: 250ml 16:45 Drug: Ciprofloxacin 400 mg Volume: 200 ml; Route: IVPB; Infused Over: 60 mins; Site: mg2 right antecubital; 18:00 Follow up: Response: No adverse reaction; IV Status: Completed infusion mg2 16:45 Drug: fentaNYL (PF) 25 mcg Route: IVP; Site: right antecubital; mg2 17:47 Follow up: Response: No adverse reaction mg2 Intake: 18:00 IV: 250ml; Total: 250ml. mg2 Outcome: 16:34 Decision to Hospitalize by Provider. snw 17:54 Admitted to Med/surg accompanied by tech, via wheelchair, room 216, with chart, Report mg2 called to NIKI QUINTEROS 17:54 Condition: stable 17:54 Instructed on the need for admit, Demonstrated understanding of instructions. 18:15 Patient left the ED. mg2 Signatures: Dispatcher [employer] EDMS Cadence Najera, QUANTOMETER OPERATOR-C QUANTOMETER OPERATOR-Csnw Kaylee Tate RN RN 2 Lora Almendarez 4 Anne Ballard 2 Delroy Hernandez, NIKI RN mg2 Pablito Mcduffie ls3 Corrections: (The following items were deleted from the chart) 16:12 16:10 BP 127 / 93; mg2 mg2
--- NOTE | 2019-02-23 16:35 | EDPHYS ---
Physician Documentation [facility] Name: Gregory Dumont Age: 58 yrs Sex: Male : 1960 Arrival Date: 02/23/2019 Time: 11:58 Bed 30 Private MD: Lucy Gomes ED Physician Mick Arshad HPI: 02/23 15:23 This 58 yrs old Male presents to ER via Ambulatory with complaints of snw Abdominal Pain, Flank Pain. 15:23 The patient presents with abdominal pain in the lower abdomen, in the left lower snw quadrant. Onset: The symptoms/episode began/occurred 3 day(s) ago, and became persistent. The symptoms do not radiate. Associated signs and symptoms: none. The symptoms are described as crampy, steady. Severity of pain: At its worst the pain was moderate. The patient has experienced similar episodes in the past. It is unknown whether or not the patient has recently seen a physician. pt states he drank some miralax without relief. Pt has hx of diverticulitis and colitis. Historical: - Allergies: 12:59 NKA; tw2 - Home Meds: 12:59 Trazodone Oral [Active]; [place] Carbonate Oral [Active]; "sleeping pill ambersol or tw2 something like that" [Active]; 13:00 Zolpidem Tartrate Oral [Active]; tw2 - PMHx: 12:59 Bipolar disorder; CVA; HEP C; HYPOGLYCEMIA; Irregular heart rate; tw2 - PSHx: 12:59 Knee surgery; tw2 - Immunization history:: Adult Immunizations. - Social history:: Smoking status: Patient/guardian denies using tobacco, Smoking status: Patient uses tobacco products, cigars. - Ebola Screening: : Patient denies travel to an Ebola-affected area in the 21 days before illness onset. ROS: 15:23 Constitutional: Negative for fever, chills, and weight loss, Eyes: Negative for injury, snw pain, redness, and discharge, ENT: Negative for injury, pain, and discharge, Neck: Negative for injury, pain, and swelling, Cardiovascular: Negative for chest pain, palpitations, and edema, Respiratory: Negative for shortness of breath, cough, wheezing, and pleuritic chest pain, Back: Negative for injury and pain, : Negative for injury, bleeding, discharge, and swelling, MS/Extremity: Negative for injury and deformity, Skin: Negative for injury, rash, and discoloration, Neuro: Negative for headache, weakness, numbness, tingling, and seizure. 15:23 Abdomen/GI: Positive for abdominal pain, Negative for vomiting, diarrhea, constipation. Exam: 15:23 Constitutional: This is a well developed, well nourished patient who is awake, alert, snw and in no acute distress. Head/Face: Normocephalic, atraumatic. Eyes: Pupils equal round and reactive to light, extra-ocular motions intact. Lids and lashes normal. Conjunctiva and sclera are non-icteric and not injected. Cornea within normal limits. Periorbital areas with no swelling, redness, or edema. ENT: Nares patent. No nasal discharge, no septal abnormalities noted. Tympanic membranes are normal and external auditory canals are clear. Oropharynx with no redness, swelling, or masses, exudates, or evidence of obstruction, uvula midline. Mucous membranes moist. Neck: Trachea midline, no thyromegaly or masses palpated, and no cervical lymphadenopathy. Supple, full range of motion without nuchal rigidity, or vertebral point tenderness. No Meningismus. Chest/axilla: Normal chest wall appearance and motion. Nontender with no deformity. No lesions are appreciated. Cardiovascular: Regular rate and rhythm with a normal S1 and S2. No gallops, murmurs, or rubs. Normal PMI, no JVD. No pulse deficits. Respiratory: Lungs have equal breath sounds bilaterally, clear to auscultation and percussion. No rales, rhonchi or wheezes noted. No increased work of breathing, no retractions or nasal flaring. Back: No spinal tenderness. No costovertebral tenderness. Full range of motion. Skin: Warm, dry with normal turgor. Normal color with no rashes, no lesions, and no evidence of cellulitis. MS/ Extremity: Pulses equal, no cyanosis. Neurovascular intact. Full, normal range of motion. Neuro: Awake and alert, GCS 15, oriented to person, place, time, and situation. Cranial nerves II-XII grossly intact. Motor strength 5/5 in all extremities. Sensory grossly intact. Cerebellar exam normal. Normal gait. Psych: Awake, alert, with orientation to person, place and time. Behavior, mood, and affect are within normal limits. 15:23 Abdomen/GI: Inspection: obese Bowel sounds: normal, Palpation: mild abdominal tenderness, in the left lower quadrant. Vital Signs: 13:00 BP 109 / 82; Pulse 82; Resp 17; Temp 98.0(O); Pulse Ox 95% on R/A; Weight 77.11 kg (R); tw2 Height 5 ft. 11 in. (180.34 cm); Pain 10/10; 15:06 BP 117 / 89; Pulse 78; Resp 18; Pulse Ox 100% on R/A; mg2 16:10 BP 127 / 93; Pulse 80; Resp 18; Temp 98.1; Pulse Ox 100% on R/A; mg2 18:01 BP 123 / 78; Pulse 81; Resp 18; Temp 98(O); Pulse Ox 100% on R/A; Pain 0/10; mg2 13:00 Body Mass Index 23.71 (77.11 kg, 180.34 cm) tw2 MDM: 14:57 Patient medically screened. snw 16:34 Data reviewed: vital signs, nurses notes. Data interpreted: Pulse oximetry: on room air snw is 100 %. Interpretation: normal. Counseling: I had a detailed discussion with the patient and/or guardian regarding: the historical points, exam findings, and any diagnostic results supporting the discharge/admit diagnosis, the presence of at least one elevated blood pressure reading (>120/80) during this emergency department visit, lab results, radiology results, the need for further work-up and treatment in the hospital. Physician consultation: Sara Serrano MD was called at 16:35, was contacted at 16:35, regarding admission, to the medical/surgical unit. 02/23 14:52 Order name: Urine Microscopic Only; Complete Time: 15:37 snw 02/23 15:06 Order name: Basic Metabolic Panel; Complete Time: 15:55 snw 02/23 15:06 Order name: CBC with Diff; Complete Time: 15:43 snw 02/23 15:06 Order name: Creatinine for Radiology; Complete Time: 15:52 snw 02/23 15:06 Order name: Hepatic Function; Complete Time: 15:55 snw 02/23 15:06 Order name: Lipase; Complete Time: 15:55 snw 02/23 14:52 Order name: Urine Dipstick-Ancillary (obtain specimen); Complete Time: 15:04 snw 02/23 15:08 Order name: Urine Dipstick--Ancillary (enter results); Complete Time: 15:25 eb 02/23 15:13 Order name: [place]; Complete Time: 16:13 snw 02/23 15:13 Order name: CT Abd/Pelvis - W/Contrast; Complete Time: 16:24 snw 02/23 16:46 Order name: NPO EDMS 02/23 15:06 Order name: IV Saline Lock; Complete Time: 15:09 snw 02/23 15:06 Order name: Labs collected and sent; Complete Time: 15:09 snw Administered Medications: 15:18 Drug: NS 0.9% 1000 ml Route: IV; Rate: 125 ml/hr; Site: right antecubital; mg2 18:00 Follow up: Response: No adverse reaction; IV Status: Infusion continued upon admission; mg2 IV Intake: 250ml 16:45 Drug: Ciprofloxacin 400 mg Volume: 200 ml; Route: IVPB; Infused Over: 60 mins; Site: mg2 right antecubital; 18:00 Follow up: Response: No adverse reaction; IV Status: Completed infusion mg2 16:45 Drug: fentaNYL (PF) 25 mcg Route: IVP; Site: right antecubital; mg2 17:47 Follow up: Response: No adverse reaction mg2 Disposition: 02/23/19 16:34 Hospitalization ordered by Sara Serrano for Observation. Preliminary diagnosis is Recurrent Diverticulitis. - Bed requested for Telemetry/MedSurg (observation). - Status is Observation. mg2 - Condition is Stable. - Problem is an acute exacerbation. - Symptoms have worsened. UTI on Admission? No Addendum: 02/24/2019 19:30 Co-signature as Attending Physician, Mick Arshad MD I agree with the assessment and k dr plan of care. Signatures: Dispatcher [employer] [facility] Shiela Graham RN RN Mick Arshad MD MD [facility] Cadence Najera, BUDGET ACCOUNTANT-C BUDGET ACCOUNTANT-Csnw Kaylee Tate RN RN tw2 Delroy Hernandez RN RN mg2 Corrections: (The following items were deleted from the chart) 02/23 17:18 16:34 Hospitalization Ordered by Sara Serrano MD for Observation. Preliminary dw diagnosis is Recurrent Diverticulitis. Bed requested for Telemetry/MedSurg (observation). Status is Observation. Condition is Stable. Problem is an acute exacerbation. Symptoms have worsened. UTI on Admission? No. snw 18:15 17:18 02/23/2019 16:34 Hospitalization Ordered by Sara Serrano MD for Observation. mg2 Preliminary diagnosis is Recurrent Diverticulitis. Bed requested for Telemetry/MedSurg (observation). Status is Observation. Condition is Stable. Problem is an acute exacerbation. Symptoms have worsened. UTI on Admission? No. dw
[2019-02-23] MEDS ORDERED: FENTANYL CITR 100 MCG/2 ML ONE (16:51)
[2019-02-23] MEDS ORDERED: CIPROFLOXACIN 400mg IV 400 MG/200 ML BAG IV ONE (16:51)
--- NOTE | 2019-02-23 17:32 | P.HP ---
Certification for Inpatient Patient admitted to: Observation With expected LOS: <2 Midnights Patient will require the following post-hospital care: None Practitioner: I am a practitioner with admitting privileges, knowledge of patient current condition, hospital course, and medical plan of care. Services: Services provided to patient in accordance with Admission requirements found in Title 42 Section 412.3 of the Code of Federal Regulations Patient History Date of Service: 02/23/19 Reason for admission: Recurrent Diverticulitis History of Present Illness: Mr Dumont is a 58 years old male with history of bipolar disorder, Diverticulosis who start about 1 week ago with abdominal pain. Patient stated that he has had similar episodes in the past were he was admitted for diverticulitis. Patient stated that his pain was initially in the right upper quadrant but no is in the frontal quadrant is getting worse over time and thus he decided to come to the ER. He denied fever, nausea, vomiting or diarrhea. In the ER patient had lab work and imaging done. Lab work and imaging were consistent with possibility diverticulitis and elevated white count and thus patient was admitted for further care. Allergies No Known Allergies Allergy (Verified 04/26/16 10:14) Home Medications: Quetiapine Fumarate [Seroquel] 400 mg PO BEDTIME 08/22/16 Ondansetron HCl [Zofran] 4 mg PO Q6H PRN #30 tablet 08/24/16 Ledipasvir/Sofosbuvir [Harvoni 90-400 mg Tablet] 1 tab PO BEDTIME 05/17/17 Naproxen [Naprosyn] 500 mg PO Q6HP PRN 05/17/17 cloNIDine HCl [Clonidine HCl] 1 tab PO TID 05/17/17 traMADol HCL [Ultram*] 2 tab PO TID 05/17/17 levoFLOXacin [Levaquin] 500 mg PO DAILY #14 tab 05/19/17 metroNIDAZOLE [Flagyl*] 500 mg PO Q8H #42 tablet 05/19/17 - Past Medical/Surgical History Diabetic: No -: Bipolar disorder -: Hypoglycemia -: ADHD -: Osteoarthritis of the knee -: Nephrolithiasis -: Right renal cyst -: Umbilical and inguinal hernia -: Tobacco abuse -: hep C -: Rt knee replacement 08/09/16 Psychosocial/ Personal History: He is , has 2 children, he does not work. - Family History Mother -: Other (see notes) Notes: Hypoglycemia - Social History Alcohol use: No CD- Drugs: No Caffeine use: Yes Review of Systems 10-point ROS is otherwise unremarkable Physical Examination - Physical Exam General: Alert, In no apparent distress HEENT: Atraumatic, PERRLA, Mucous membr. moist/pink, EOMI, Sclerae nonicteric Neck: Supple, 2+ carotid pulse no bruit, No LAD, Without JVD or thyroid abnormality Respiratory: Clear to auscultation bilaterally, Normal air movement Cardiovascular: Regular rate/rhythm, Normal S1 S2 Gastrointestinal: Normal bowel sounds, Tenderness (LLQ) Musculoskeletal: No tenderness Integumentary: No rashes Neurological: Normal gait, Normal speech, Normal strength at 5/5 x4 extr, Normal tone, Normal affect Lymphatics: No axilla or inguinal lymphadenopathy - Studies Laboratory Data (last 24 hrs) 02/23/19 15:15: Creatinine 1.09 02/23/19 15:15: WBC 15.0 H, Hgb 15.9, Hct 48.2, Plt Count 197 02/23/19 15:15: Sodium 140, Potassium 4.1, BUN 10, Creatinine 1.09, Glucose 88, Total Bilirubin 0.5, AST 16, ALT 20, Alkaline Phosphatase 84, Lipase 205 Assessment and Plan - Problems (Diagnosis) (1) Diverticulitis Onset Date: 08/23/16 Current Visit: No Status: Acute Plan: Patient with history of her current diverticulitis and diverticulosis -currently with left lower quadrant pain and elevated leukocytosis -will start patient on IV Cipro and Flagyl at this time -NPO for now -patient will need GI consultation as outpatient for colonoscopy to be done 6 weeks post discharge Qualifiers: Diverticulitis site: large intestine Diverticulitis bleeding: without bleeding Diverticulitis complication: without perforation or abscess Qualified Code(s): K57.32 - Diverticulitis of large intestine without perforation or abscess without bleeding (2) Bipolar disorder Onset Date: 05/17/17 Current Visit: No Status: Chronic Plan: Currently takes lithium. Will restart that here in the hospital Qualifiers: Active/Remission status: remission status unspecified Qualified Code(s): F31.9 - Bipolar disorder, unspecified Discharge Plan: Home Plan to discharge in: 48 Hours - Advance Directives Does patient have a Living Will: No Does patient have a Durable POA for Healthcare: No - Code Status/Comfort Care Code Status Assessed: Yes Critical Care: No
[2019-02-23] MEDS ORDERED: ONDANSETRON 4 MG/2 ML VIAL IV PRN (18:25)
[2019-02-23 18:51] VITALS: BMI 23.7
[2019-02-23] MEDS: NA CHLORIDE 0.9% 1,000 ML IV SCH (18:52)
[2019-02-23] MEDS: METRONIDAZOLE 500mg IVPB 500 MG/100 ML BAG IV SCH (18:52)
[2019-02-23 19:15] VITALS: O2SAT 100
[2019-02-23 20:06] LABS: Urine Appearance CLEAR; Urine Bilirubin NEGATIVE (NEG); Urine Blood NEGATIVE (NEG); Urine Color YELLOW; Urine Glucose NEGATIVE (NEG); Urine Protein NEGATIVE (NEG); Urine Specific Gravity >=1.030 (1.005-1.030); Urine Urobilinogen 0.2 mg/dL (0.2-1.0); Urine pH 6.5 (5.0-7.0)
[2019-02-23 20:12] LABS: Urine Microscopic Reflex NO UMIC
[2019-02-24] MEDS: METRONIDAZOLE 500mg IVPB 500 MG/100 ML BAG IV SCH ×2 (00:38→08:32)
[2019-02-24] MEDS ORDERED: MORPHINE 2 MG/ML SYR IV PRN (03:40)
[2019-02-24] MEDS: NA CHLORIDE 0.9% 1,000 ML IV SCH (03:41)
[2019-02-24 05:25] LABS: Absolute Monocytes 1.2 K/uL (0.1-1.3); Absolute Neutrophil 7.3 K/uL (1.8-8.0); Basophils % 0.5 % (0-1.3); Eosinophils % 5.4 % (0-4.4); Hematocrit 43.5 % (39.6-49.0); Lymphocytes % 17.7 % (15.3-44.8); MPV 9.9 fL (7.6-11.3); Monocytes % 10.9 % (3.3-12.3); RBC Red Blood Cell Count 4.61 M/uL (4.33-5.43)
[2019-02-24 05:36] LABS: Albumin 3.4 g/dL (3.4-5.0); Bilirubin Total 0.5 mg/dL (0.2-1.0); Potassium 4.9 mmol/L (3.5-5.1); Protein, Total 6.6 g/dL (6.4-8.2)
[2019-02-24] MEDS ORDERED: CIPROFLOXACIN 400mg IV 400 MG/200 ML BAG IV SCH (09:00)
[2019-02-24 12:19] VITALS: BP 115/68; TEMP 97
--- NOTE | 2019-02-24 12:20 | P.DS ---
Admission Date: 02/23/19 Discharge Date: 02/24/19 Disposition: ROUTINE DISCHARGE Discharge Condition: GOOD Reason for Admission: Recurrent Diverticulitis - Problems (1) Diverticulitis Onset Date: 08/23/16 Status: Acute Qualifiers: Diverticulitis site: large intestine Diverticulitis bleeding: without bleeding Diverticulitis complication: without perforation or abscess Qualified Code(s): K57.32 - Diverticulitis of large intestine without perforation or abscess without bleeding (2) Bipolar disorder Onset Date: 05/17/17 Status: Chronic Qualifiers: Active/Remission status: remission status unspecified Qualified Code(s): F31.9 - Bipolar disorder, unspecified Brief History of Present Illness: Mr Dumont is a 58 years old male with history of bipolar disorder, Diverticulosis who start about 1 week ago with abdominal pain. Patient stated that he has had similar episodes in the past were he was admitted for diverticulitis. Patient stated that his pain was initially in the right upper quadrant but no is in the frontal quadrant is getting worse over time and thus he decided to come to the ER. He denied fever, nausea, vomiting or diarrhea. In the ER patient had lab work and imaging done. Lab work and imaging were consistent with possibility diverticulitis and elevated white count and thus patient was admitted for further care. Hospital Course: Overall during the hospital stay patient remained stable Patient was initially admitted to the hospital for recurrent diverticulitis. Was started on IV antibiotics. Was monitored here in the hospital for 24 hr. Was kept NPO along with IV fluids. After which will patient had marked improvement in his symptoms. His abdominal pain did resolve and thus he was discharged home under stable condition. Patient was asked to continue taking some full liquid to a GI soft diet for next couple of days and then advance to a regular diet after that. Patient was also asked to follow up with GI in about 6 weeks for followup colonoscopy due to recurrent diverticulitis. Patient demonstrated understanding and thus was discharged home under stable condition. Patient is at high risk for recurrent diverticulitis given the history of tobacco abuse. Vital Signs/Physical Exam: Temp Pulse Resp BP Pulse Ox 97.9 F 66 20 103/62 94 02/24/19 08:00 02/24/19 08:00 02/24/19 08:00 02/24/19 08:00 02/24/19 08:00 General: Alert, In no apparent distress HEENT: Atraumatic, PERRLA, EOMI Neck: Supple, JVD not distended Respiratory: Clear to auscultation bilaterally, Normal air movement Cardiovascular: Regular rate/rhythm, Normal S1 S2 Gastrointestinal: Normal bowel sounds, No tenderness Musculoskeletal: No tenderness Integumentary: No rashes Neurological: Normal speech, Normal tone, Normal affect Lymphatics: No axilla or inguinal lymphadenopathy Laboratory Data at Discharge: WBC 11.2 K/uL (4.3-10.9) H D 02/24/19 04:44 Hgb 14.1 g/dL (13.6-17.9) 02/24/19 04:44 Hct 43.5 % (39.6-49.0) 02/24/19 04:44 Plt Count 190 K/uL (152-406) 02/24/19 04:44 Sodium 143 mmol/L (136-145) 02/24/19 04:44 Potassium 4.9 mmol/L (3.5-5.1) 02/24/19 04:44 BUN 10 mg/dL (7-18) 02/24/19 04:44 Creatinine 1.10 mg/dL (0.55-1.3) 02/24/19 04:44 Glucose 88 mg/dL (74-106) 02/24/19 04:44 Total Bilirubin 0.5 mg/dL (0.2-1.0) 02/24/19 04:44 AST 10 U/L (15-37) L 02/24/19 04:44 ALT 17 U/L (12-78) 02/24/19 04:44 Alkaline Phosphatase 67 U/L (45-117) 02/24/19 04:44 Lipase 205 U/L (73-393) 02/23/19 15:15 Home Medications: [place] Carbonate [Lithotabs *] 1 tab PO DAILY 02/23/19 Trazodone [Desyrel*] 50 mg PO DAILY 02/23/19 Zolpidem Tartrate 5 mg PO DAILY 02/23/19 Ciprofloxacin HCl [Cipro 500 MG Tablet] 500 mg PO DAILY 14 Days #14 tab metroNIDAZOLE [Flagyl] 500 mg PO Q8H 14 Days #42 tablet 02/24/19 New Medications: Ciprofloxacin HCl [Cipro 500 MG Tablet] 500 mg PO DAILY 14 Days #14 tab metroNIDAZOLE [Flagyl] 500 mg PO Q8H 14 Days #42 tablet Diet: Regular Activity: Ad renny Followup: Hong Dawson MD [ASSOCIATE-ACTIVE - CAN ADMIT] -
== END 2019-02-24 11:55 | disposition home or self-care (01) ==
LOC: ER 11:56 → ERHOLD 16:45 → 2ND 17:47
PROVIDERS: ADMIT Family Medicine; ATTEND Family Medicine
DX: K57.32 Diverticulitis of large intestine without perforation or abscess without bleeding (principal); F31.9 Bipolar disorder, unspecified
CPT/HCPCS: 96365 ×3; 96367; 96361; 87040 ×2; 85025 ×2; 80048; 36415; 80178; 80076; 83690; 80053; 74177; 96375; 99285; Q9967; J3010; J2270; J7030 ×2; J0744 ×2; G0378 ×2; 81003; 81015

== ENCOUNTER 2019-02-27 18:03 | Emergency (ER) | payer OTHER ==
--- OUTSIDE RECORDS SUMMARY | 2019-02-27 18:04 | XMS REPORT ---
[...] Start Date End Date Status Dosage Zetia [facility] 68617296698 10 MG Orally Once Jun 06, Active 1 tablet a day 2018 Results No Known Results Summary Purpose eClinicalWorks Submission
--- OUTSIDE RECORDS SUMMARY | 2019-02-27 18:04 | XMS REPORT ---
[...] Date Status Dosage System Date Ranitidine HCl [facility] 77012161922 150 MG Orally Nov 20, Active 1 tablet Twice a day 2019 as needed Results No Known Results Summary Purpose eClinicalWorks Submission
--- OUTSIDE RECORDS SUMMARY | 2019-02-27 18:04 | XMS REPORT ---
[...] End Date Status Dosage System Date Diclofenac [facility] 05152426027 75 MG Orally May 11, Nov 11, Active 1 tablet Sodium Twice a day 2017 2018 with food or milk Results No Known Results Summary Purpose eClinicalWorks Submission
--- OUTSIDE RECORDS SUMMARY | 2019-02-27 18:05 | XMS REPORT ---
[...] End Date Status Dosage Date Vitamin B12 [facility] 58826303674 1000 MCG Orally Active 1 tablet Once a day Ezetimibe [facility] 21461892900 10 MG Orally Once Nov 15, Active 1 tablet a day 2019 Results No Known Results Summary Purpose eClinicalWorks Submission
--- OUTSIDE RECORDS SUMMARY | 2019-02-27 18:05 | XMS REPORT ---
[...] Status Dosage System Date Date Ascorbic Acid [facility] 15026459651 500 MG Orally Active 1 tablet twice a day Lithobid [facility] 19458717175 300 MG Orally Active 1 tablet twice a day Vitamin B12 ND 26385175754 1000 MCG Orally Active 1 tablet Once a day Fish Oil ND 82529098016 1000 MG Orally Active 1 capsule Once a day Seroquel ND 58368570868 400 MG Orally Dec 14, Active 1 tablet Once a day at 2018 bedtime Zetia ND 16933809079 10 MG Orally Active 1 tablet Once a day Trazodone HCl ND 18074441999 100 MG Orally Active 1 tablet Once a day at bedtime Ezetimibe ND 60422092226 10 MG Orally Nov 15, Active 1 tablet Once a day 2018 Ranitidine HCl [facility] 07753750215 150 MG Orally Nov 20, Active 1 tablet Twice a day 2018 as needed Thiamine [facility] 16697298021 50 MG Orally Active 2 capsules Once a day Melatonin ND 67352351504 3 MG Orally Active 1 tablet Once a day at bedtime as needed with food Ciprodex [facility] 30408478827 0.3-0.1 % Otic Nov 23, Active 4 drops Twice a day 2018 into affected ear Vitamin B12 [facility] 14674018629 1000 MCG Orally Active 1 tablet Once a day Cyanocobalamin [facility] 02296571484 2500 MCG Active as Sublingual once directed a day Memantine HCl [facility] 37718971947 10 MG Orally Active 1 tablet Twice a day Super B-Complex [facility] 32862462741 - Orally once a Active as day directed D3 Maximum [facility] 14151271679 5000 UNIT Active 1 capsule Strength Orally Once a day Co-Enzyme Q-10 [facility] 95218883095 100 MG Orally Active 2 capsule Once a day with a meal Results No Known Results Summary Purpose eClinicalWorks Submission
--- OUTSIDE RECORDS SUMMARY | 2019-02-27 18:05 | XMS REPORT ---
[...] Status Dosage System Date Date Memantine HCl [facility] 76920706513 10 MG Orally Active 1 tablet Twice a day Cyanocobalamin [facility] 13815600086 2500 MCG Active as Sublingual once directed a day Trazodone HCl [facility] 74909449665 100 MG Orally Active 1 tablet Once a day at bedtime Lithobid [facility] 06117387498 300 MG Orally Active 1 tablet twice a day Super B-Complex [facility] 78279340173 - Orally once a Active as day directed Ascorbic Acid [facility] 18252125890 500 MG Orally Active 1 tablet twice a day Ezetimibe ND 81869334657 10 MG Orally Nov 15, Active 1 tablet Once a day 2018 Fish Oil [facility] 66225357237 1000 MG Orally Active 1 capsule Once a day Vitamin B12 [facility] 23562833670 1000 MCG Orally Active 1 tablet Once a day Seroquel [facility] 90564038352 400 MG Orally Dec 14, Active 1 tablet Once a day at 2018 bedtime Atorvastatin [facility] 89900340547 20 MG Orally Inactive 1 tablet Calcium Once a day Vitamin B12 [facility] 86611979130 1000 MCG Orally Active 1 tablet Once a day D3 Maximum [facility] 76280089823 5000 UNIT Active 1 capsule Strength Orally Once a day Melatonin [facility] 77457817692 3 MG Orally Active 1 tablet Once a day at bedtime as needed with food Thiamine [facility] 98544878404 50 MG Orally Active 2 capsules Once a day Co-Enzyme Q-10 [facility] 87587389533 100 MG Orally Active 2 capsule Once a day with a meal Zetia [facility] 96124487144 10 MG Orally Active 1 tablet Once a day Results No Known Results Summary Purpose eClinicalWorks Submission
--- NOTE | 2019-02-27 18:33 | EDPHYS ---
Physician Documentation [facility] Name: Gregory Dumont Age: 58 yrs Sex: Male : 1960 Arrival Date: 02/27/2019 Time: 18:08 Bed 12 Private MD: Lucy Gomes ED Physician Bjorn Nuno HPI: 02/27 18:30 This 58 yrs old Male presents to ER via Ambulatory with complaints of Cough. jr8 18:30 The patient or guardian reports cough, that is intermittent, described as moderate, jr8 with no sputum. Onset: The symptoms/episode began/occurred acutely, yesterday. Severity of symptoms: At their worst the symptoms were mild, in the emergency department the symptoms are unchanged. Modifying factors: The symptoms are alleviated by nothing, the symptoms are aggravated by nothing. Associated signs and symptoms: Pertinent positives: rhinorrhea, sneezing. It is unknown whether or not the patient has had similar symptoms in the past. The patient has not recently seen a physician. Historical: - Allergies: 18:10 NKA; aj1 - Home Meds: 18:10 Ambien Oral [Active]; [place] Carbonate Oral [Active]; Trazodone Oral [Active]; aj1 - PMHx: 18:10 Bipolar disorder; CVA; HEP C; HYPOGLYCEMIA; Irregular heart rate; aj1 - Immunization history:: Flu vaccine is up to date. - Social history:: Smoking status: Patient uses tobacco products, smokes one-half pack cigarettes per day. - Ebola Screening: : Patient denies travel to an Ebola-affected area in the 21 days before illness onset. ROS: 18:30 Constitutional: Negative for fever, chills, and weight loss, Eyes: Negative for injury, jr8 pain, redness, and discharge, Neck: Negative for injury, pain, and swelling, Cardiovascular: Negative for chest pain, palpitations, and edema, Abdomen/GI: Negative for abdominal pain, nausea, vomiting, diarrhea, and constipation, Back: Negative for injury and pain, MS/Extremity: Negative for injury and deformity, Skin: Negative for injury, rash, and discoloration, Neuro: Negative for headache, weakness, numbness, tingling, and seizure. 18:30 ENT: Positive for rhinorrhea, Negative for drainage from ear(s), ear pain, nasal discharge, sinus congestion, difficulty swallowing, difficulty handling secretions, hoarseness. 18:30 Respiratory: Positive for cough, Negative for dyspnea on exertion, shortness of breath, sputum production, wheezing. Exam: 18:30 Eyes: Pupils equal round and reactive to light, extra-ocular motions intact. Lids and jr8 lashes normal. Conjunctiva and sclera are non-icteric and not injected. Cornea within normal limits. Periorbital areas with no swelling, redness, or edema. ENT: Nares patent. No nasal discharge, no septal abnormalities noted. Tympanic membranes are normal and external auditory canals are clear. Oropharynx with no redness, swelling, or masses, exudates, or evidence of obstruction, uvula midline. Mucous membranes moist. Neck: Trachea midline, no thyromegaly or masses palpated, and no cervical lymphadenopathy. Supple, full range of motion without nuchal rigidity, or vertebral point tenderness. No Meningismus. Cardiovascular: Regular rate and rhythm with a normal S1 and S2. No gallops, murmurs, or rubs. Normal PMI, no JVD. No pulse deficits. Respiratory: Lungs have equal breath sounds bilaterally, clear to auscultation and percussion. No rales, rhonchi or wheezes noted. No increased work of breathing, no retractions or nasal flaring. Abdomen/GI: Soft, non-tender, with normal bowel sounds. No distension or tympany. No guarding or rebound. No evidence of tenderness throughout. Back: No spinal tenderness. No costovertebral tenderness. Full range of motion. Skin: Warm, dry with normal turgor. Normal color with no rashes, no lesions, and no evidence of cellulitis. MS/ Extremity: Pulses equal, no cyanosis. Neurovascular intact. Full, normal range of motion. Neuro: Awake and alert, GCS 15, oriented to person, place, time, and situation. Cranial nerves II-XII grossly intact. Motor strength 5/5 in all extremities. Sensory grossly intact. Cerebellar exam normal. Normal gait. Vital Signs: 18:10 BP 102 / 80; Pulse 80; Resp 18; Temp 97.3; Pulse Ox 95% on R/A; Weight 77.11 kg; Pain aj1 10/10; MDM: 18:22 Patient medically screened. jr8 18:30 Data reviewed: vital signs, nurses notes, and as a result, I will discharge patient. jr8 Data interpreted: Pulse oximetry: on room air is 95 %. Interpretation: normal. Counseling: I had a detailed discussion with the patient and/or guardian regarding: the historical points, exam findings, and any diagnostic results supporting the discharge/admit diagnosis, lab results, the need for outpatient follow up, a family practitioner, to return to the emergency department if symptoms worsen or persist or if there are any questions or concerns that arise at home. Administered Medications: No medications were administered Disposition: 02/28 07:03 Co-signature as Attending Physician, Bjorn Nuno MD I agree with the assessment and [facility] plan of care. Disposition: 02/27/19 18:32 Discharged to Home. Impression: Other seasonal allergic rhinitis, Cough. - Condition is Stable. - Discharge Instructions: Allergies, Adult, Nasal Allergies, Cough, Adult. - Prescriptions for Flonase Allergy Relief 50 mcg/actuation Nasal spray,suspension - inhale 2 spray by INTRANASAL route once daily; 1 bottle. Guaifenesin AC 10- 100 mg/5 mL Oral Liquid - take 10 milliliter by ORAL route every 4 hours As needed; 240 milliliter. - Medication Reconciliation Form, Thank You Letter, Antibiotic Education, Prescription Opioid Use form. - Follow up: Lucy Gomes MD; When: 5 - 6 days; Reason: Recheck today's complaints, Continuance of care, Re-evaluation by your physician. - Problem is new. - Symptoms have improved. Signatures: Izzy Roth, RN RN aj1 Bjorn Nuno MD MD cha Roszak, Josh, PA PA jr8 Joaquin Silva RN RN rv Corrections: (The following items were deleted from the chart) 02/27 19:02 18:32 02/27/2019 18:32 Discharged to Home. Impression: Other seasonal allergic rv rhinitis; Cough. Condition is Stable. Forms are Medication Reconciliation Form, Thank You Letter, Antibiotic Education, Prescription Opioid Use. Follow up: Lucy Gomes; When: 5 - 6 days; Reason: Recheck today's complaints, Continuance of care, Re-evaluation by your physician. Problem is new. Symptoms have improved. jr8
--- NOTE | 2019-02-27 18:33 | ER ---
Nurse's Notes [facility] Name: Gregory Dumont Age: 58 yrs Sex: Male : 1960 Arrival Date: 02/27/2019 Time: 18:08 Bed 12 Private MD: Lucy Gomes Diagnosis: Other seasonal allergic rhinitis;Cough Presentation: 02/27 18:08 Presenting complaint: Patient states: "I'm sneezing and coughing and I have pain in my aj1 lungs when I cough" Reports symptoms started yesterday. Denies fever. Transition of care: patient was not received from another setting of care. Onset of symptoms was February 26, 2019. Risk Assessment: Do you want to hurt yourself or someone else? Patient reports no desire to harm self or others. Initial Sepsis Screen: Does the patient meet any 2 criteria? No. Patient's initial sepsis screen is negative. Does the patient have a suspected source of infection? Yes: Productive cough/pneumonia. Care prior to arrival: None. 18:08 Method Of Arrival: Ambulatory aj1 18:08 Acuity: MARION 4 aj1 Triage Assessment: 18:10 General: Appears in no apparent distress. comfortable, Behavior is calm, cooperative, aj1 appropriate for age. Pain: Complains of pain in diaphragm. Neuro: Level of Consciousness is awake, alert, obeys commands. Cardiovascular: Patient's skin is warm and dry. Respiratory: Reports cough that is non-productive, Airway is patent Respiratory effort is even, unlabored, Respiratory pattern is regular, symmetrical. Historical: - Allergies: 18:10 NKA; aj1 - Home Meds: 18:10 Ambien Oral [Active]; [place] Carbonate Oral [Active]; Trazodone Oral [Active]; aj1 - PMHx: 18:10 Bipolar disorder; CVA; HEP C; HYPOGLYCEMIA; Irregular heart rate; aj1 - Immunization history:: Flu vaccine is up to date. - Social history:: Smoking status: Patient uses tobacco products, smokes one-half pack cigarettes per day. - Ebola Screening: : Patient denies travel to an Ebola-affected area in the 21 days before illness onset. Screenin:01 Abuse screen: Denies threats or abuse. Denies injuries from another. Nutritional rv screening: No deficits noted. Tuberculosis screening: No symptoms or risk factors identified. Fall Risk None identified. Assessment: 18:35 General: Appears in no apparent distress. comfortable, Behavior is calm, cooperative. rv 18:35 Pain: Denies pain. Neuro: Level of Consciousness is awake, alert, obeys commands, rv Oriented to person, place, time, situation. Cardiovascular: Capillary refill < 3 seconds. Respiratory: Airway is patent. Respiratory: Parent/caregiver reports the patient having cough that is persistent. GI: No signs and/or symptoms were reported involving the gastrointestinal system. : No signs and/or symptoms were reported regarding the genitourinary system. EENT: No signs and/or symptoms were reported regarding the EENT system. Derm: Skin is intact. Musculoskeletal: No signs and/or symptoms reported regarding the musculoskeletal system. Vital Signs: 18:10 BP 102 / 80; Pulse 80; Resp 18; Temp 97.3; Pulse Ox 95% on R/A; Weight 77.11 kg; Pain aj1 10; ED Course: 18:08 Patient arrived in ED. mr 18:08 Lucy Gomes MD is Private Physician. mr 18:09 Triage completed. aj1 18:10 Arm band placed on Patient placed in an exam room. aj1 18:17 Zane Gonzalez PA is PHCP. jr8 18:17 Bjorn Nuno MD is Attending Physician. jr8 18:21 Joaquin Silva RN is Primary Nurse. rv 18:31 Lucy Gomes MD is Referral Physician. jr8 18:35 Patient has correct armband on for positive identification. Bed in low position. Call rv light in reach. Pulse ox on. NIBP on. 19:01 No provider procedures requiring assistance completed. Patient did not have IV access rv during this emergency room visit. Administered Medications: No medications were administered Outcome: 18:32 Discharge ordered by . jr8 19:02 Discharged to home ambulatory. rv 19:02 Condition: good 19:02 Discharge instructions given to patient, Instructed on discharge instructions, follow up and referral plans. medication usage, Demonstrated understanding of instructions, follow-up care, medications, Prescriptions given X 2. 19:02 Patient left the ED. rv Signatures: Izzy Roth RN RN aj1 Elaine Taylor mr Zane Gonzalez PA PA jr8 Joaquin Silva RN RN rv
[2019-02-28 03:51] VITALS: BP 102/80; TEMP 97.3; O2SAT 95
== END 2019-02-27 19:02 | disposition home or self-care (01) ==
LOC: ER 18:03
DX: J30.2 Other seasonal allergic rhinitis (principal); F31.9 Bipolar disorder, unspecified; Z86.73 Personal history of transient ischemic attack (TIA), and cerebral infarction without residual deficits; B19.20 Unspecified viral hepatitis C without hepatic coma; F17.210 Nicotine dependence, cigarettes, uncomplicated
CPT/HCPCS: 99283

== ENCOUNTER 2019-02-28 05:58 | Emergency (ER) | payer OTHER ==
--- OUTSIDE RECORDS SUMMARY | 2019-02-28 06:00 | XMS REPORT ---
[...] End Date Status Dosage Date Vitamin B12 [facility] 84696158928 1000 MCG Orally Active 1 tablet Once a day Ezetimibe [facility] 43197940348 10 MG Orally Once Nov 15, Active 1 tablet a day 2019 Results No Known Results Summary Purpose eClinicalWorks Submission
--- OUTSIDE RECORDS SUMMARY | 2019-02-28 06:00 | XMS REPORT ---
[...] End Date Status Dosage System Date Diclofenac [facility] 29620988198 75 MG Orally May 11, Nov 11, Active 1 tablet Sodium Twice a day 2017 2018 with food or milk Results No Known Results Summary Purpose eClinicalWorks Submission
--- OUTSIDE RECORDS SUMMARY | 2019-02-28 06:00 | XMS REPORT ---
[...] Date Status Dosage System Date Ranitidine HCl [facility] 33350692074 150 MG Orally Nov 20, Active 1 tablet Twice a day 2019 as needed Results No Known Results Summary Purpose eClinicalWorks Submission
--- OUTSIDE RECORDS SUMMARY | 2019-02-28 06:00 | XMS REPORT ---
[...] Status Dosage System Date Date Ascorbic Acid [facility] 25721726072 500 MG Orally Active 1 tablet twice a day Lithobid [facility] 26948368228 300 MG Orally Active 1 tablet twice a day Vitamin B12 ND 15346056039 1000 MCG Orally Active 1 tablet Once a day Fish Oil ND 50364866421 1000 MG Orally Active 1 capsule Once a day Seroquel ND 80792893776 400 MG Orally Dec 14, Active 1 tablet Once a day at 2018 bedtime Zetia ND 93859809518 10 MG Orally Active 1 tablet Once a day Trazodone HCl ND 73038070942 100 MG Orally Active 1 tablet Once a day at bedtime Ezetimibe ND 75421777959 10 MG Orally Nov 15, Active 1 tablet Once a day 2018 Ranitidine HCl [facility] 72530669765 150 MG Orally Nov 20, Active 1 tablet Twice a day 2018 as needed Thiamine [facility] 35661096403 50 MG Orally Active 2 capsules Once a day Melatonin ND 80821687508 3 MG Orally Active 1 tablet Once a day at bedtime as needed with food Ciprodex [facility] 10338356274 0.3-0.1 % Otic Nov 23, Active 4 drops Twice a day 2018 into affected ear Vitamin B12 [facility] 83988251688 1000 MCG Orally Active 1 tablet Once a day Cyanocobalamin [facility] 29199882871 2500 MCG Active as Sublingual once directed a day Memantine HCl [facility] 00288862762 10 MG Orally Active 1 tablet Twice a day Super B-Complex [facility] 28388968033 - Orally once a Active as day directed D3 Maximum [facility] 13661389108 5000 UNIT Active 1 capsule Strength Orally Once a day Co-Enzyme Q-10 [facility] 86790391425 100 MG Orally Active 2 capsule Once a day with a meal Results No Known Results Summary Purpose eClinicalWorks Submission
--- OUTSIDE RECORDS SUMMARY | 2019-02-28 06:00 | XMS REPORT ---
[...] Status Dosage System Date Date Memantine HCl [facility] 48955967690 10 MG Orally Active 1 tablet Twice a day Cyanocobalamin [facility] 48143356895 2500 MCG Active as Sublingual once directed a day Trazodone HCl [facility] 30880689986 100 MG Orally Active 1 tablet Once a day at bedtime Lithobid [facility] 10580335013 300 MG Orally Active 1 tablet twice a day Super B-Complex [facility] 36212417794 - Orally once a Active as day directed Ascorbic Acid [facility] 09805271177 500 MG Orally Active 1 tablet twice a day Ezetimibe ND 61501315545 10 MG Orally Nov 15, Active 1 tablet Once a day 2018 Fish Oil [facility] 39408803293 1000 MG Orally Active 1 capsule Once a day Vitamin B12 [facility] 28378785169 1000 MCG Orally Active 1 tablet Once a day Seroquel [facility] 17138433227 400 MG Orally Dec 14, Active 1 tablet Once a day at 2018 bedtime Atorvastatin [facility] 58034733214 20 MG Orally Inactive 1 tablet Calcium Once a day Vitamin B12 [facility] 63196131702 1000 MCG Orally Active 1 tablet Once a day D3 Maximum [facility] 81555396179 5000 UNIT Active 1 capsule Strength Orally Once a day Melatonin [facility] 08579504411 3 MG Orally Active 1 tablet Once a day at bedtime as needed with food Thiamine [facility] 47105616100 50 MG Orally Active 2 capsules Once a day Co-Enzyme Q-10 [facility] 59212279827 100 MG Orally Active 2 capsule Once a day with a meal Zetia [facility] 67042069658 10 MG Orally Active 1 tablet Once a day Results No Known Results Summary Purpose eClinicalWorks Submission
--- OUTSIDE RECORDS SUMMARY | 2019-02-28 06:00 | XMS REPORT ---
[...] Start Date End Date Status Dosage Zetia [facility] 48285312322 10 MG Orally Once Jun 06, Active 1 tablet a day 2018 Results No Known Results Summary Purpose eClinicalWorks Submission
[2019-02-28] MEDS ORDERED: IBUPROFEN 400 MG TAB ONE (07:01)
--- NOTE | 2019-02-28 07:16 | ER ---
Nurse's Notes [facility] Name: Gregory Dumont Age: 58 yrs Sex: Male : 1960 Arrival Date: 02/28/2019 Time: 06:01 Bed 17 Private MD: Lucy Gomes Diagnosis: Influenza due to identified novel influenza A virus with other respiratory manifestations Presentation: 02/28 06:10 Presenting complaint: Patient states: Pt reports he was seen at ED last week for "upper ea respiratory issues" pt reports he was prescribed flonase. pt reports he is having pain in lower chest, hurts to cough, reports productive cough. Transition of care: patient was not received from another setting of care. Onset of symptoms was February 28, 2019. Risk Assessment: Do you want to hurt yourself or someone else? Patient reports no desire to harm self or others. Initial Sepsis Screen: Does the patient meet any 2 criteria? No. Patient's initial sepsis screen is negative. Does the patient have a suspected source of infection? No. Patient's initial sepsis screen is negative. Care prior to arrival: None. 06:10 Method Of Arrival: Ambulatory ea 06:10 Acuity: MARION 3 ea Triage Assessment: 06:17 General: Appears uncomfortable, Behavior is calm, cooperative, appropriate for age. ea Pain: Complains of pain in right lateral anterior chest and left lateral anterior chest. Neuro: Level of Consciousness is awake, alert, obeys commands, Oriented to person, place, time, situation. Cardiovascular: Patient's skin is warm and dry. Respiratory: Airway is patent Respiratory effort is even, unlabored, Respiratory pattern is regular, symmetrical, Parent/caregiver reports the patient having cough that is productive, persistent. Derm: Skin is pink, warm \\T\\ dry. Historical: - Allergies: 06:14 NKA; ea - Home Meds: 06:14 Trazodone Oral [Active]; [place] Carbonate Oral [Active]; Ambien Oral [Active]; ea "sleeping pill ambersol or something like that" [Active]; - PMHx: 06:14 Irregular heart rate; HYPOGLYCEMIA; HEP C; CVA; Bipolar disorder; ea - Immunization history:: Adult Immunizations up to date. - Social history:: Smoking status: Patient/guardian denies using tobacco. - Ebola Screening: : No symptoms or risks identified at this time. Screenin:16 Abuse screen: Denies threats or abuse. Nutritional screening: No deficits noted. ea Tuberculosis screening: No symptoms or risk factors identified. Fall Risk None identified. Assessment: 06:12 General: Appears in no apparent distress. uncomfortable, Behavior is calm, cooperative, tl2 appropriate for age. Pain: Complains of pain in left lateral anterior chest and right lateral anterior chest Pain does not radiate. Pain began 2-3 days ago. Aggravated by coughing and moving. Neuro: Level of Consciousness is awake, alert, obeys commands, Oriented to person, place, time, situation. Cardiovascular: Rhythm is sinus rhythm. Respiratory: Reports cough that is productive, persistent Airway is patent Respiratory effort is even, unlabored, Respiratory pattern is regular, symmetrical, Denies shortness of breath. GI: No signs and/or symptoms were reported involving the gastrointestinal system. Derm: Skin is pink, warm \\T\\ dry. 07:08 General: Appears in no apparent distress. uncomfortable, Behavior is calm, cooperative, hj appropriate for age. Pain: Complains of pain in left lateral anterior chest and right lateral anterior chest. Neuro: Level of Consciousness is awake, alert, obeys commands, Oriented to person, place, time, situation, Appropriate for age. Cardiovascular: Capillary refill < 3 seconds Patient's skin is warm and dry. Rhythm is sinus rhythm. Respiratory: Reports cough that is productive, persistent Airway is patent Respiratory effort is even, unlabored, Respiratory pattern is regular, symmetrical. GI: No signs and/or symptoms were reported involving the gastrointestinal system. : No signs and/or symptoms were reported regarding the genitourinary system. EENT: No signs and/or symptoms were reported regarding the EENT system. Derm: Skin is pink, warm \\T\\ dry. Musculoskeletal: No signs and/or symptoms reported regarding the musculoskeletal system. 07:24 Reassessment: pt for D/C; awaiting provider to talk to pt for POC;. hj 07:50 Reassessment: provider was looking for pt for POC; pt not in the room; per [place] program technician pt hj left, angry looking banging the door going out of the ED; pt was called several times and no where to be found;. Vital Signs: 06:15 BP 90 / 57; Pulse 71; Resp 19; Temp 97.8; Pulse Ox 97% ; Weight 77.11 kg; Height 5 ft. ea 11 in. (180.34 cm); 07:09 BP 112 / 85; Pulse 58; Resp 18; Pulse Ox 96% on R/A; hj 06:15 Body Mass Index 23.71 (77.11 kg, 180.34 cm) ea Vitals: 06:12 Cardiac Rhythm Assessment Sinus rhythm. tl2 ED Course: 06:01 Patient arrived in ED. am2 06:01 Lucy Gomes MD is Private Physician. am2 06:13 Triage completed. ea 06:14 Bjorn Boyce PA is PHCP. cp 06:14 Hong Schulte MD is Attending Physician. cp 06:15 Patient has correct armband on for positive identification. Bed in low position. Call ea light in reach. Side rails up X2. Pulse ox on. NIBP on. 06:17 Arm band placed on right wrist. Patient placed in an exam room, on a stretcher, on ea pulse oximetry. 06:17 Patient maintains SpO2 saturation greater than 95% on room air. ea 06:32 Influenza Screen (a \\T\\ B) Sent. tl2 06:32 Strep Sent. tl2 06:32 Flu and/or RSV swab sent to lab. Strep swab sent to lab. tl2 06:55 Patient moved to radiology via wheelchair. kw 06:55 X-ray completed. Patient tolerated procedure well. kw 06:55 Patient moved back from radiology. kw 06:56 XRAY Chest Pa And Lat (2 Views) In Process Unspecified. EDIL 07:08 Lucas Chavez RN is Primary Nurse. hj 07:53 No provider procedures requiring assistance completed. Patient did not have IV access hj during this emergency room visit. Administered Medications: 06:49 Drug: Ibuprofen 800 mg Route: PO; tl2 07:13 Follow up: Response: No adverse reaction; Pain is decreased Outcome: 07:15 Discharge ordered by . cp 07:36 Discharge ordered by MD. cp 07:54 Eloped from patient exam room, after seeing physician Time discovered patient gone: February 2018 at 07:45 07:54 Condition: stable 07:54 Patient left the ED. Signatures: Dispatcher [employer] EDIL Karolina Charles Lucas Chavez RN RN hj Page, Corey, PA PA cp Hess, Tahira, RN RN tl2 [place] am2 Janet Lundberg, RN RN ea
--- NOTE | 2019-02-28 07:16 | EDPHYS ---
Physician Documentation [facility] Name: Gregory Dumont Age: 58 yrs Sex: Male : 1960 Arrival Date: 02/28/2019 Time: 06:01 Bed 17 Private MD: Lucy Gomes ED Physician Hong Schulte HPI: 02/28 06:28 This 58 yrs old Male presents to ER via Ambulatory with complaints of Chest cp Pain, Chest Congestion. 06:28 The patient or guardian reports cough, that is intermittent. cp 06:28 Onset: The symptoms/episode began/occurred 24 hour(s) ago. Associated signs and cp symptoms: Pertinent positives: chest pain, with breathing, left and right anterior lower chest, Pertinent negatives: diarrhea, fever, vomiting. Severity of symptoms: in the emergency department the symptoms are unchanged. The patient has been recently seen at the [facility] Emergency Department, yesterday, for similar complaints. Historical: - Allergies: 06:14 NKA; ea - Home Meds: 06:14 Trazodone Oral [Active]; [place] Carbonate Oral [Active]; Ambien Oral [Active]; ea "sleeping pill ambersol or something like that" [Active]; - PMHx: 06:14 Irregular heart rate; HYPOGLYCEMIA; HEP C; CVA; Bipolar disorder; ea - Immunization history:: Adult Immunizations up to date. - Social history:: Smoking status: Patient/guardian denies using tobacco. - Ebola Screening: : No symptoms or risks identified at this time. ROS: 06:35 Constitutional: Negative for body aches, chills, fever, poor PO intake. cp 06:35 Eyes: Negative for injury, pain, redness, and discharge. cp 06:35 ENT: Positive for sore throat, Negative for drainage from ear(s), ear pain, sinus pain. 06:35 Cardiovascular: Positive for chest pain, with cough, of the left lateral anterior chest and right lateral anterior chest, Negative for edema, palpitations. 06:35 Respiratory: Positive for cough, Negative for shortness of breath, wheezing. 06:35 Abdomen/GI: Negative for vomiting, diarrhea, constipation. 06:35 Back: Negative for pain at rest, pain with movement. 06:35 Skin: Negative for rash. 06:35 Neuro: Negative for altered mental status, headache, weakness. 06:35 All other systems are negative. Exam: 06:20 ECG was reviewed by the Attending Physician. cp 06:40 Constitutional: The patient appears in no acute distress, alert, awake, cp non-diaphoretic, non-toxic, well developed, well nourished. 06:40 Head/Face: Normocephalic, atraumatic. cp 06:40 Eyes: Periorbital structures: appear normal, Conjunctiva: normal, no exudate, no cp injection, Sclera: no appreciated abnormality, Lids and lashes: appear normal, bilaterally. 06:40 ENT: External ear(s): are unremarkable, Ear canal(s): are normal, clear, TM's: bulging, cp is not appreciated, bilaterally, erythema, is not appreciated, bilaterally, Nose: is normal, Mouth: Lips: moist, Oral mucosa: pink and intact, moist, Posterior pharynx: is normal, airway is patent, no erythema, no exudate. 06:40 Neck: ROM/movement: is normal, is supple, without pain, no range of motions limitations, no meningismus, no nuchal rigidity. 06:40 Chest/axilla: Inspection: normal, Palpation: is normal, no crepitus, no tenderness. 06:40 Cardiovascular: Rate: normal, Rhythm: regular. 06:40 Respiratory: the patient does not display signs of respiratory distress, Respirations: normal, no use of accessory muscles, no retractions, no splinting, no tachypnea, Breath sounds: are clear throughout, no decreased breath sounds, no stridor, no wheezing. 06:40 Abdomen/GI: Inspection: abdomen appears normal, Palpation: abdomen is soft and non-tender, in all quadrants. 06:40 Back: pain, is absent, ROM is normal. 06:40 Skin: no rash present. Vital Signs: 06:15 BP 90 / 57; Pulse 71; Resp 19; Temp 97.8; Pulse Ox 97% ; Weight 77.11 kg; Height 5 ft. ea 11 in. (180.34 cm); 07:09 BP 112 / 85; Pulse 58; Resp 18; Pulse Ox 96% on R/A; hj 06:15 Body Mass Index 23.71 (77.11 kg, 180.34 cm) ea MDM: 06:15 Patient medically screened. cp 06:30 Differential diagnosis: bronchitis, flu, URI, pneumonia. cp 07:35 Data reviewed: vital signs, nurses notes, lab test result(s), radiologic studies, plain cp films, chest xray negative for focal pneumonia, and as a result, I will discharge patient. 07:35 Test interpretation: by ED physician or midlevel provider: ECG, plain radiologic cp studies. 07:35 Antibiotic administration: Not indicated, the patient has a suspected viral illness. 02/28 06:22 Order name: Influenza Screen (a \\T\\ B); Complete Time: 07:35 02/28 07:35 Interpretation: Normal except: FLUA FLU A ----- \\T\\nbsp; \\T\\nbsp; \\T\\nbsp; \\T\\nbsp; \\T\\nbsp; cp \\T\\nbsp; \\T\\nbsp; \\T\\nbsp; \\T\\nbsp; POSITIVE for FLU A protein antigen. 02/28 06:22 Order name: Strep 02/28 06:22 Order name: XRAY Chest Pa And Lat (2 Views) 02/28 07:38 Order name: Throat Culture EDMS EC:20 Rate is 63 beats/min. Rhythm is regular. OR interval is normal. QRS interval is normal. cp QT interval is normal. T waves are Inverted in lead V2. Interpreted by me. Reviewed by me. Administered Medications: 06:49 Drug: Ibuprofen 800 mg Route: PO; tl2 07:13 Follow up: Response: No adverse reaction; Pain is decreased hj Disposition: 03/01 07:47 Co-signature as Attending Physician, Hong Schulte MD I agree with the assessment and wa plan of care. Disposition: 02/28/19 07:36 Discharged to Home. Impression: Influenza due to identified novel influenza A virus with other respiratory manifestations. - Condition is Stable. - Discharge Instructions: Influenza, Adult. - Prescriptions for Tamiflu 75 mg Oral Capsule - take 1 capsule by ORAL route every 12 hours for 5 days; 10 capsule. Albuterol Sulfate 90 mcg/actuation - inhale 1-2 puff by INHALATION route every 4-6 hours; 1 Inhaler. - Medication Reconciliation Form, Thank You Letter, Antibiotic Education, Prescription Opioid Use form. - Follow up: Private Physician; When: 2 - 3 days; Reason: Recheck today's complaints. - Problem is new. - Symptoms have improved. Signatures: Dispatcher [employer] EDMS Lucas Chavez RN RN hj Bjorn Boyce PA PA cp Tahira Hess, RN RN tl2 Janet Lundberg RN RN ea Hong Schulte MD MD wa Corrections: (The following items were deleted from the chart) 02/28 07:35 07:15 02/28/2019 07:15 Discharged to Home. Impression: Acute bronchitis. Condition is cp Stable. Forms are Medication Reconciliation Form, Thank You Letter, Antibiotic Education, Prescription Opioid Use. Follow up: Private Physician; When: 2 - 3 days; Reason: Recheck today's complaints. Problem is new. Symptoms are unchanged. cp 07:54 07:36 02/28/2019 07:36 Discharged to Home. Impression: Influenza due to identified hj novel influenza A virus with other respiratory manifestations. Condition is Stable. Prescriptions for Zithromax Z-Casimiro 250 mg Oral Tablet - take 1 tablet by ORAL route as directed for 5 days Day 1 - take two (2) tablets one time. Day 2, 3, 4 , 5 take one (1) tablet once daily.; 6 tablet, Albuterol Sulfate 90 mcg/actuation - inhale 1-2 puff by INHALATION route every 4-6 hours; 1 Inhaler. and Forms are Medication Reconciliation Form, Thank You Letter, Antibiotic Education, Prescription Opioid Use. Follow up: Private Physician; When: 2 - 3 days; Reason: Recheck today's complaints. Problem is new. Symptoms have improved. cp
--- NOTE | 2019-02-28 08:39 | RAD REPORT ---
EXAM DESCRIPTION: RAD - Chest Pa And Lat (2 Views) - 02/28/2019 6:58 am CLINICAL HISTORY: COUGH Chest pain. COMPARISON: Chest Single View dated 06/28/2018; Chest Single View dated 09/19/2017; Chest Single View dated 06/14/2017; Chest Single View dated 05/07/2017 FINDINGS: The lungs are mildly emphysematous but clear. The heart is normal in size. No displaced fr actures. IMPRESSION: Mild COPD.
--- NOTE | 2019-02-28 10:53 | EKG ---
Test Date: 2019-02-28 Test Time: 06:11:43 Industrial Engineering Director: ALVIN MEASUREMENT RESULTS: Intervals: Rate: 63 IN: 132 QRSD: 96 QT: 416 QTc: 425 [place]: P: 60 IN: 132 QRS: 70 T: 56 INTERPRETIVE STATEMENTS: Normal sinus rhythm Normal ECG Compared to ECG 06/28/2018 20:33:34 No significant changes Electronically Signed On 02-28-19 10:52:09 CDT by Sebastian Mason
[2019-02-28 17:03] VITALS: TEMP 97.8
[2019-02-28 17:06] VITALS: BP 112/85; O2SAT 96
== END 2019-02-28 07:54 | disposition home or self-care (01) ==
LOC: ER 05:58
DX: J10.1 Influenza due to other identified influenza virus with other respiratory manifestations (principal); Z86.73 Personal history of transient ischemic attack (TIA), and cerebral infarction without residual deficits; F31.9 Bipolar disorder, unspecified
CPT/HCPCS: 71046; 87070; 87081; 87804; 93005; 99285

== ENCOUNTER 2019-04-21 19:04 | Emergency (ER) | payer OTHER ==
--- OUTSIDE RECORDS SUMMARY | 2019-04-21 19:06 | XMS REPORT ---
:1960 [facility] Address [address] [place] [address] Care Team Providers Name Role Phone Unavailable Unavailable Unavailable Problems This patient has no known problems. Allergies, Adverse Reactions, Alerts This patient has no known allergies or adverse reactions. Medications This patient has no known medications.
--- OUTSIDE RECORDS SUMMARY | 2019-04-21 19:06 | XMS REPORT ---
[...] Status Dosage System Date Date Ascorbic Acid FORMER[facility] NAMED [facility] 23502026848 500 MG Orally Active 1 tablet twice a day Lithobid FORMERLY NAMED [facility] 19505596740 300 MG Orally Active 1 tablet twice a day Vitamin B12 ND 80749039552 1000 MCG Orally Active 1 tablet Once a day Fish Oil ND 02807568918 1000 MG Orally Active 1 capsule Once a day Seroquel ND 34036462474 400 MG Orally Dec 14, Active 1 tablet Once a day at 2018 bedtime Zetia ND 41354353575 10 MG Orally Active 1 tablet Once a day Trazodone HCl ND 72060020787 100 MG Orally Active 1 tablet Once a day at bedtime Ezetimibe ND 62137713000 10 MG Orally Nov 15, Active 1 tablet Once a day 2018 Ranitidine HCl FORMER[facility] NAMED [facility] 40840857370 150 MG Orally Nov 20, Active 1 tablet Twice a day 2018 as needed Thiamine FORMERLY NAMED [facility] 57954479501 50 MG Orally Active 2 capsules Once a day Melatonin ND 22503654378 3 MG Orally Active 1 tablet Once a day at bedtime as needed with food Ciprodex FORMERLY NAMED [facility] 09924898143 0.3-0.1 % Otic Nov 23, Active 4 drops Twice a day 2018 into affected ear Vitamin B12 FORMER[facility] NAMED [facility] 72277640795 1000 MCG Orally Active 1 tablet Once a day Cyanocobalamin FORMERLY NAMED [facility] 73378616190 2500 MCG Active as Sublingual once directed a day Memantine HCl FORMER[facility] NAMED [facility] 32800393534 10 MG Orally Active 1 tablet Twice a day Super B-Complex FORMERLY NAMED [facility] 04740342093 - Orally once a Active as day directed D3 Maximum FORMERLY NAMED [facility] 25553563329 5000 UNIT Active 1 capsule Strength Orally Once a day Co-Enzyme Q-10 FORMER[facility] NAMED [facility] 77099103193 100 MG Orally Active 2 capsule Once a day with a meal Results No Known Results Summary Purpose eClinicalWorks Submission
--- OUTSIDE RECORDS SUMMARY | 2019-04-21 19:06 | XMS REPORT ---
[...] Start Date End Date Status Dosage Zetia [facility] 2001 38181692086 10 MG Orally Once Jun 06, Active 1 tablet a day 2018 Results No Known Results Summary Purpose eClinicalWorks Submission
--- OUTSIDE RECORDS SUMMARY | 2019-04-21 19:06 | XMS REPORT ---
[...] [facility] 66029834823 150 MG Orally Nov 20, Active 1 tablet Twice a day 2019 as needed Results No Known Results Summary Purpose eClinicalWorks Submission
--- OUTSIDE RECORDS SUMMARY | 2019-04-21 19:06 | XMS REPORT ---
[...] End Date Status Dosage System Date Diclofenac [facility] 52063142005 75 MG Orally May 11, Nov 11, Active 1 tablet Sodium Twice a day 2017 2018 with food or milk Results No Known Results Summary Purpose eClinicalWorks Submission
--- OUTSIDE RECORDS SUMMARY | 2019-04-21 19:06 | XMS REPORT ---
[...] Dosage System Date Date Memantine HCl [facility] 75931986562 10 MG Orally Active 1 tablet Twice a day Cyanocobalamin [facility] 38171139277 2500 MCG Active as Sublingual once directed a day Trazodone HCl [facility] 75811233329 100 MG Orally Active 1 tablet Once a day at bedtime Lithobid [facility] 74528433262 300 MG Orally Active 1 tablet twice a day Super B-Complex [facility] 19239121798 - Orally once a Active as day directed Ascorbic Acid [facility] 88385655420 500 MG Orally Active 1 tablet twice a day Ezetimibe ND 96876011866 10 MG Orally Nov 15, Active 1 tablet Once a day [address] [facility] 56391796547 1000 MG Orally Active 1 capsule Once a day Vitamin B12 [facility] 18238076855 1000 MCG Orally Active 1 tablet Once a day Seroquel [facility] 87449642265 400 MG Orally Dec 14, Active 1 tablet Once a day at [address] [facility] 79215806953 20 MG Orally Inactive 1 tablet Calcium Once a day Vitamin B12 [facility] 80696386581 1000 MCG Orally Active 1 tablet Once a day D3 Maximum [facility] 73419704661 5000 UNIT Active 1 capsule Strength Orally Once a day Melatonin [facility] 66192521219 3 MG Orally Active 1 tablet Once a day at bedtime as needed with food Thiamine [facility] 01258247265 50 MG Orally Active 2 capsules Once a day Co-Enzyme Q-[address] [facility] 64685865263 100 MG Orally Active 2 capsule Once a day with a meal Zetia [facility] 87228071362 10 MG Orally Active 1 tablet Once a day Results No Known Results Summary Purpose eClinicalWorks Submission
--- OUTSIDE RECORDS SUMMARY | 2019-04-21 19:07 | XMS REPORT ---
[...] End Date Status Dosage Date Vitamin B12 [facility] 79669952055 1000 MCG Orally Active 1 tablet Once a day Ezetimibe [facility] 47293870147 10 MG Orally Once Nov 15, Active 1 tablet a day 2019 Results No Known Results Summary Purpose eClinicalWorks Submission
[2019-04-21 19:51] LABS: Absolute Lymphocytes (CBC) 2.2 K/uL (0.7-4.9); Basophils % 0.5 % (0-1.3); Eosinophils % 3.6 % (0-4.4); Hematocrit 39.3 % (39.6-49.0); Lymphocytes % 22.1 % (15.3-44.8); MPV 9.6 fL (7.6-11.3); Monocytes % 10.9 % (3.3-12.3); RBC Red Blood Cell Count 4.25 M/uL (4.33-5.43)
[2019-04-21 19:53] LABS: Protime INR 0.92
[2019-04-21] MEDS ORDERED: NA CHLORIDE 0.9% 1,000 ML ONE (19:54)
--- NOTE | 2019-04-21 19:55 | RAD REPORT ---
EXAM DESCRIPTION: RAD - Chest Single View - 04/21/2019 7:48 pm CLINICAL HISTORY: dizziness Chest pain. COMPARISON: Chest Pa And Lat (2 Views) dated 02/28/2019; Chest Single View dated 06/28/2018; Chest Sin gle View dated 09/19/2017; Chest Single View dated 06/14/2017 FINDINGS: Portable technique limits examination quality. The lungs are grossly clear. The heart is normal in size. No displaced fractures. IMPRESSION: No acute intrathoracic process suspected.
--- NOTE | 2019-04-21 19:59 | RAD REPORT ---
EXAM DESCRIPTION: CT - Head Brain Wo Cont - 04/21/2019 7:50 pm CLINICAL HISTORY: DIZZINESS Headache, drowsiness COMPARISON: <Comparisons> TECHNIQUE: All CT scans are performed using dose optimization technique as appropriate and may inclu de automated exposure control or mA/KV adjustment according to patient size. FINDINGS: No intracranial hemorrhage, hydrocephalus or extra-axial fluid collection.No areas of brai n edema or evidence of midline shift. The paranasal sinuses and mastoids are clear. The calvarium is intact. IMPRESSION: No acute intracranial abnormality.
[2019-04-21 20:12] LABS: BUN Blood Urea Nitrogen 28 mg/dL (7-18); Bicarbonate 26 mmol/L (21-32); Glucose Level 95 mg/dL (74-106); Potassium 3.5 mmol/L (3.5-5.1); Sodium Level 142 mmol/L (136-145); Troponin (Emerg Dept Use Only) < 0.02 ng/mL (0.0-0.045)
[2019-04-21 21:09] LABS: Barbiturates NEGATIVE (NEGATIVE); Benzodiazepines NEGATIVE (NEGATIVE); Cocaine NEGATIVE (NEGATIVE); METHAMPHETAM NEGATIVE (NEGATIVE); Methadone NEGATIVE (NEGATIVE); Opiates NEGATIVE (NEGATIVE); Phencyclidine NEGATIVE (NEGATIVE); THC Cannibis NEGATIVE (NEGATIVE)
[2019-04-21 21:14] LABS: Urine Blood NEGATIVE (NEG); Urine Glucose NEGATIVE (NEG); Urine Protein NEGATIVE (NEG); Urine Specific Gravity 1.015 (1.005-1.030); Urine pH 6.5 (5.0-7.0)
--- NOTE | 2019-04-21 21:25 | ER ---
Nurse's Notes [facility] Name: Gregory Dumont Age: 58 yrs Sex: Male : 1960 Arrival Date: 04/21/2019 Time: 19:08 Bed 19 Private MD: Diagnosis: Volume depletion Presentation: 04/21 19:11 Presenting complaint: Patient states: I have been feeling bad with WARD, dizziness, la1 nausea since 1600 today. Transition of care: patient was not received from another setting of care. Onset of symptoms was April 21, 2019. Risk Assessment: Do you want to hurt yourself or someone else? Patient reports no desire to harm self or others. Initial Sepsis Screen: Does the patient meet any 2 criteria? No. Patient's initial sepsis screen is negative. Does the patient have a suspected source of infection? No. Patient's initial sepsis screen is negative. Care prior to arrival: None. 19:11 Method Of Arrival: Ambulatory la1 19:11 Acuity: MARION 2 la1 Triage Assessment: 19:16 Headache History: The patient has had previous headaches and this one is similar to cc3 previous episodes. General: Appears in no apparent distress. uncomfortable, Behavior is calm, cooperative, appropriate for age. Pain: Complains of pain in around his head Also complains of shortness of breath, dizziness, lightheaded. Historical: - Allergies: 19:11 NKA; la1 - Home Meds: 19:16 "sleeping pill ambersol or something like that" [Active]; Ambien Oral [Active]; [place] cc3 Carbonate Oral [Active]; Trazodone Oral [Active]; - PMHx: 19:11 Bipolar disorder; CVA; HEP C; HYPOGLYCEMIA; Irregular heart rate; ADD/ADHD; la1 - Immunization history:: Adult Immunizations up to date. - Social history:: Smoking status: Patient uses tobacco products, smokes one-half pack cigarettes per day. - Ebola Screening: : No symptoms or risks identified at this time. Screenin:16 Abuse screen: Denies threats or abuse. Denies injuries from another. Nutritional cc3 screening: No deficits noted. Tuberculosis screening: No symptoms or risk factors identified. Fall Risk Ambulatory Aid- None/Bed Rest/Nurse Assist (0 pts). Gait- Normal/Bed Rest/Wheelchair (0 pts) Mental Status- Oriented to own ability (0 pts). Assessment: 19:16 General: Appears in no apparent distress. uncomfortable, Behavior is calm, cooperative, cc3 appropriate for age. Pain: Complains of pain in around his head Pain currently is 8 out of 10 on a pain scale. Quality of pain is described as aching, Pain began 3 hours ago. Neuro: Level of Consciousness is awake, alert, obeys commands, Oriented to person, place, time, situation, Appropriate for age. Cardiovascular: Capillary refill < 3 seconds Patient's skin is warm and dry. Respiratory: Airway is patent Respiratory effort is even, unlabored, Respiratory pattern is regular, symmetrical. GI: Abdomen is round. : No signs and/or symptoms were reported regarding the genitourinary system. EENT: Reports having white vision when he started to have headaches at 1600H, but now he said he can see clearly. Derm: Skin is intact, is healthy with good turgor, Skin is pink, warm \\T\\ dry. normal, Skin temperature is warm. Musculoskeletal: Circulation, motion, and sensation intact. Range of motion: intact in all extremities. 19:48 Reassessment: Patient appears in no apparent distress at this time. Patient and/or cc3 family updated on plan of care and expected duration. Pain level reassessed. Patient is alert, oriented x 3, equal unlabored respirations, skin warm/dry/pink. Patient taken to CT scan department by the field service poultry technician by wheelchair. 20:10 Reassessment: Patient appears in no apparent distress at this time. Patient and/or cc3 family updated on plan of care and expected duration. Pain level reassessed. Patient is alert, oriented x 3, equal unlabored respirations, skin warm/dry/pink. Patient came back from CT scan department, awaiting result. 21:05 Reassessment: Patient appears in no apparent distress at this time. Patient and/or cc3 family updated on plan of care and expected duration. Pain level reassessed. Patient is alert, oriented x 3, equal unlabored respirations, skin warm/dry/pink. Patient denies pain at this time. 21:24 Reassessment: PAROLE DIRECTOR Cadence discharged the patient home but after the IV fluid completion. cc3 Patient denies pain at this time. 22:11 Reassessment: Patient appears in no apparent distress at this time. Patient and/or cc3 family updated on plan of care and expected duration. Pain level reassessed. Patient is alert, oriented x 3, equal unlabored respirations, skin warm/dry/pink. IV fluid completed, patient discharged home, no prescription given. IV cannula removed and patient left ER vitally stable and ambulatory. No valuables left in the patient's room. Patient denies pain at this time. Patient states feeling better. Patient states symptoms have improved. Vital Signs: 19:10 BP 89 / 64; Pulse 73; Resp 16; Temp 97.1; Pulse Ox 98% on R/A; Weight 77.11 kg; Height la1 5 ft. 11 in. (180.34 cm); 19:16 BP 103 / 82; Pulse 81; Resp 16 S; Pulse Ox 96% on R/A; cc3 20:11 BP 111 / 86; Pulse 87; Resp 17 S; Pulse Ox 97% on R/A; cc3 21:04 BP 120 / 85; Pulse 83; Resp 20 S; Pulse Ox 98% on R/A; cc3 22:00 BP 115 / 87; Pulse 85; Resp 19 S; Pulse Ox 98% on R/A; cc3 19:10 Body Mass Index 23.71 (77.11 kg, 180.34 cm) la1 [place] Coma Score: 21:26 Eye Response: spontaneous(4). Verbal Response: oriented(5). Motor Response: obeys snw commands(6). Total: 15. ED Course: 19:08 Patient arrived in ED. mr 19:11 Arm band placed on left wrist. la1 19:12 Triage completed. la1 19:14 Radha Ramos is Primary Nurse. cc3 19:16 Patient has correct armband on for positive identification. Placed in gown. Bed in low cc3 position. Call light in reach. Side rails up X 1. ekg monitor tech on. Pulse ox on. NIBP on. 19:21 Cadence Najera F[facility]C [facility]. snw 19:21 Luis Fernando Mott MD is Attending Physician. snw 19:44 EKG done, by ED staff, reviewed by Cadence KRISHNAN. Inserted saline lock: 20 ag4 gauge in right antecubital area, using aseptic technique. Blood collected. 19:48 XRAY Chest (1 view) In Process Unspecified. EDMS 19:50 CT Head Brain wo Cont In Process Unspecified. EDMS 21:35 No provider procedures requiring assistance completed. IV discontinued, intact, cc3 bleeding controlled, No redness/swelling at site. Pressure dressing applied. Administered Medications: 19:40 Drug: NS 0.9% 1000 ml Route: IV; Rate: 200 ml/hr; Site: right antecubital; cc3 22:00 Follow up: Response: No adverse reaction; IV Status: Completed infusion; IV Intake: cc3 1000ml Point of Care Testing: Blood Glucose: 19:16 Blood Glucose: 150 mg/dL; jb4 Ranges: Intake: 22:00 IV: 1000ml; Total: 1000ml. cc3 Outcome: 21:24 Discharge ordered by . snw 22:11 Patient left the ED. cc3 22:11 Discharged to home ambulatory. cc3 22:11 Condition: stable 22:11 Discharge instructions given to patient, Instructed on discharge instructions, follow up and referral plans. Demonstrated understanding of instructions, follow-up care. Signatures: Dispatcher [employer] EDNE Cadence Najera, MANAGER BAKERY-C MANAGER BAKERY-Csnw Elaine Taylor Quincy Lundberg, RN RN la1 Surinder Edward RN RN jb4 Radha Ramos cc3 Billy Alanis4 Corrections: (The following items were deleted from the chart) 23:43 22:11 Reassessment: Patient appears in no apparent distress at this time. Patient cc3 and/or family updated on plan of care and expected duration. Pain level reassessed. Patient is alert, oriented x 3, equal unlabored respirations, skin warm/dry/pink. IV fluid completed, patient discharged home, no prescription given. IV cannula removed and patient left ER vitally stable and ambulatory. Patient denies pain at this time. Patient states feeling better. Patient states symptoms have improved. cc3
--- NOTE | 2019-04-21 21:25 | EDPHYS ---
Physician Documentation [facility] Name: Gregory Dumont Age: 58 yrs Sex: Male : 1960 Arrival Date: 04/21/2019 Time: 19:08 Bed 19 Private MD: ED Physician Luis Fernando Mott HPI: 04/21 19:49 This 58 yrs old Male presents to ER via Ambulatory with complaints of snw Headache, Dizziness. 19:49 The patient complains of pain to the forehead, left side of the back of head, left snw temporal area, right side of the back of head and right temporal area. The patient describes the headache as dependent on FSBS. Onset: The symptoms/episode began/occurred throughout the day. Associated signs and symptoms: The patient has no apparent associated signs or symptoms. Severity of symptoms: At its worst the pain was very mild. the symptoms are aggravated by hypoglycemia. The patient has experienced similar episodes in the past. It is unknown whether or not the patient has recently seen a physician. Pt states he would like different sleeping medications. Historical: - Allergies: 19:11 NKA; la1 - Home Meds: 19:16 "sleeping pill ambersol or something like that" [Active]; Ambien Oral [Active]; Iantha cc3 Carbonate Oral [Active]; Trazodone Oral [Active]; - PMHx: 19:11 Bipolar disorder; CVA; HEP C; HYPOGLYCEMIA; Irregular heart rate; ADD/ADHD; la1 - Immunization history:: Adult Immunizations up to date. - Social history:: Smoking status: Patient uses tobacco products, smokes one-half pack cigarettes per day. - Ebola Screening: : No symptoms or risks identified at this time. ROS: 19:48 Eyes: Negative for injury, pain, redness, and discharge, ENT: Negative for injury, snw pain, and discharge, Neck: Negative for injury, pain, and swelling, Cardiovascular: Negative for chest pain, palpitations, and edema, Respiratory: Negative for shortness of breath, cough, wheezing, and pleuritic chest pain, Abdomen/GI: Negative for abdominal pain, nausea, vomiting, diarrhea, and constipation, Back: Negative for injury and pain, : Negative for injury, bleeding, discharge, and swelling, MS/Extremity: Negative for injury and deformity, Skin: Negative for injury, rash, and discoloration, Neuro: Negative for headache, weakness, numbness, tingling, and seizure. 19:48 Constitutional: Positive for hypoglycemia episodes, requests sleeping medications. Exam: 19:48 Constitutional: This is a well developed, well nourished patient who is awake, alert, snw and in no acute distress. Head/Face: Normocephalic, atraumatic. Eyes: Pupils equal round and reactive to light, extra-ocular motions intact. Lids and lashes normal. Conjunctiva and sclera are non-icteric and not injected. Cornea within normal limits. Periorbital areas with no swelling, redness, or edema. ENT: Nares patent. No nasal discharge, no septal abnormalities noted. Tympanic membranes are normal and external auditory canals are clear. Oropharynx with no redness, swelling, or masses, exudates, or evidence of obstruction, uvula midline. Mucous membranes moist. Neck: Trachea midline, no thyromegaly or masses palpated, and no cervical lymphadenopathy. Supple, full range of motion without nuchal rigidity, or vertebral point tenderness. No Meningismus. Chest/axilla: Normal chest wall appearance and motion. Nontender with no deformity. No lesions are appreciated. Cardiovascular: Regular rate and rhythm with a normal S1 and S2. No gallops, murmurs, or rubs. Normal PMI, no JVD. No pulse deficits. Respiratory: Lungs have equal breath sounds bilaterally, clear to auscultation and percussion. No rales, rhonchi or wheezes noted. No increased work of breathing, no retractions or nasal flaring. Abdomen/GI: Soft, non-tender, with normal bowel sounds. No distension or tympany. No guarding or rebound. No evidence of tenderness throughout. Back: No spinal tenderness. No costovertebral tenderness. Full range of motion. Skin: Warm, dry with normal turgor. Normal color with no rashes, no lesions, and no evidence of cellulitis. MS/ Extremity: Pulses equal, no cyanosis. Neurovascular intact. Full, normal range of motion. Neuro: Awake and alert, GCS 15, oriented to person, place, time, and situation. Cranial nerves II-XII grossly intact. Motor strength 5/5 in all extremities. Sensory grossly intact. Cerebellar exam normal. Normal gait. Psych: Awake, alert, with orientation to person, place and time. Behavior, mood, and affect are within normal limits. Vital Signs: 19:10 BP 89 / 64; Pulse 73; Resp 16; Temp 97.1; Pulse Ox 98% on R/A; Weight 77.11 kg; Height la1 5 ft. 11 in. (180.34 cm); 19:16 BP 103 / 82; Pulse 81; Resp 16 S; Pulse Ox 96% on R/A; cc3 20:11 BP 111 / 86; Pulse 87; Resp 17 S; Pulse Ox 97% on R/A; cc3 21:04 BP 120 / 85; Pulse 83; Resp 20 S; Pulse Ox 98% on R/A; cc3 22:00 BP 115 / 87; Pulse 85; Resp 19 S; Pulse Ox 98% on R/A; cc3 19:10 Body Mass Index 23.71 (77.11 kg, 180.34 cm) la1 Reubens Coma Score: 21:26 Eye Response: spontaneous(4). Verbal Response: oriented(5). Motor Response: obeys snw commands(6). Total: 15. MDM: 19:24 Patient medically screened. snw 21:26 Data reviewed: vital signs, nurses notes. Data interpreted: Pulse oximetry: on room air snw is 98 %. Interpretation: normal. Counseling: I had a detailed discussion with the patient and/or guardian regarding: the historical points, exam findings, and any diagnostic results supporting the discharge/admit diagnosis, the presence of at least one elevated blood pressure reading (>120/80) during this emergency department visit, lab results, the need for outpatient follow up, for definitive care, to return to the emergency department if symptoms worsen or persist or if there are any questions or concerns that arise at home. Special discussion: Based on the history and exam findings, there is no indication for further emergent testing or inpatient evaluation. I discussed with the patient/guardian the need to see the primary care provider for further evaluation of the symptoms. 04/21 19:23 Order name: Basic Metabolic Panel; Complete Time: 20:12 snw 04/21 19:23 Order name: CBC with Diff; Complete Time: 19:55 snw 04/21 19:23 Order name: Magnesium; Complete Time: 20:12 snw 04/21 19:23 Order name: PT-INR; Complete Time: 19:55 snw 04/21 19:23 Order name: Troponin (emerg Dept Use Only); Complete Time: 20:12 snw 04/21 19:23 Order name: UDS; Complete Time: 21:16 snw 04/21 19:23 Order name: CT Head Brain wo Cont; Complete Time: 20:12 snw 04/21 19:23 Order name: XRAY Chest (1 view); Complete Time: 20:12 snw 04/21 19:23 Order name: EKG; Complete Time: 19:25 snw 04/21 19:23 Order name: Cardiac monitoring; Complete Time: 19:34 snw 04/21 19:23 Order name: EKG - Nurse/Tech; Complete Time: 19:34 snw 04/21 19:23 Order name: IV Saline Lock; Complete Time: 19:45 snw 04/21 20:52 Order name: Urine Dipstick--Ancillary (enter results); Complete Time: 21:16 mt 04/21 19:23 Order name: Labs collected and sent; Complete Time: 19:45 snw 04/21 19:23 Order name: O2 Per Protocol; Complete Time: 19:34 snw 04/21 19:23 Order name: O2 Sat Monitoring; Complete Time: 19:34 snw Administered Medications: 19:40 Drug: NS 0.9% 1000 ml Route: IV; Rate: 200 ml/hr; Site: right antecubital; cc3 22:00 Follow up: Response: No adverse reaction; IV Status: Completed infusion; IV Intake: cc3 1000ml Point of Care Testing: Blood Glucose: 19:16 Blood Glucose: 150 mg/dL; jb4 Ranges: Critical Glucose Levels:Adult <50 mg/dl or >400 mg/dl <40 mg/dl or >180 mg/dl Disposition: 04/22 01:33 Co-signature as Attending Physician, Luis Fernando Mott MD. pkl Disposition: 04/21/19 21:24 Discharged to Home. Impression: Volume depletion. - Condition is Stable. - Discharge Instructions: Dehydration, Adult, Sleep Studies, Rehydration, Adult. - Medication Reconciliation Form, Thank You Letter, Antibiotic Education, Prescription Opioid Use form. - Follow up: Emergency Department; When: As needed; Reason: Worsening of condition. Follow up: Private Physician; When: 2 - 3 days; Reason: Recheck today's complaints, Continuance of care, Re-evaluation by your physician. Signatures: Dispatcher [employer] EDMS Luis Fernando Mott MD MD pkl Therrien, Shelly, VERO-C VERO-Quincy Toro RN RN la1 Radha Ramos cc3 Corrections: (The following items were deleted from the chart) 04/21 22:11 21:24 04/21/2019 21:24 Discharged to Home. Impression: Volume depletion. Condition is cc3 Stable. Forms are Medication Reconciliation Form, Thank You Letter, Antibiotic Education, Prescription Opioid Use. Follow up: Emergency Department; When: As needed; Reason: Worsening of condition. Follow up: Private Physician; When: 2 - 3 days; Reason: Recheck today's complaints, Continuance of care, Re-evaluation by your physician. snw
[2019-04-21 22:43] VITALS: TEMP 97.1
[2019-04-21 22:47] VITALS: BP 120/85; O2SAT 98
--- NOTE | 2019-04-22 08:43 | EKG ---
Test Date: 2019-04-21 Test Time: 19:30:47 Cytopathologist: AG3 MEASUREMENT RESULTS: Intervals: Rate: 82 HI: 136 QRSD: 104 QT: 382 QTc: 446 [place]: P: 52 HI: 136 QRS: 77 T: 61 INTERPRETIVE STATEMENTS: Normal sinus rhythm Normal ECG Compared to ECG 02/28/2019 06:11:43 No significant changes Electronically Signed On 04-22-19 08:41:22 CDT by Hoang Burns
== END 2019-04-21 22:11 | disposition home or self-care (01) ==
LOC: ER 19:04
DX: E86.9 Volume depletion, unspecified (principal); F31.9 Bipolar disorder, unspecified; F90.9 Attention-deficit hyperactivity disorder, unspecified type; F17.210 Nicotine dependence, cigarettes, uncomplicated; Z86.73 Personal history of transient ischemic attack (TIA), and cerebral infarction without residual deficits
CPT/HCPCS: 96361; 93005; 85025; 80048; 36415; 83735; 85610; 82962; 80307 ×8; 81003; 84484; 70450; 71045; 96360; 99285; J7030

== ENCOUNTER 2019-08-19 13:28 | Inpatient (IN) | payer OTHER ==
[2019-08-19 14:02] LABS: Absolute Lymphocytes (CBC) 0.7 K/uL (0.7-4.9); Basophils % 0.4 % (0-1.3); Hematocrit 43.5 % (39.6-49.0); Lymphocytes % 3.2 % (15.3-44.8); MPV 9.2 fL (7.6-11.3); RBC Red Blood Cell Count 4.88 M/uL (4.33-5.43)
[2019-08-19] MEDS ORDERED: MORPHINE 4 MG/ML SYR ONE ×2 (14:08→17:21)
[2019-08-19] MEDS ORDERED: ONDANSETRON 4 MG/2 ML VIAL ONE (14:08)
[2019-08-19 14:19] LABS: ALT/SGPT 21 U/L (12-78); AST/SGOT 15 U/L (15-37); Albumin 3.8 g/dL (3.4-5.0); Alkaline Phosphatase 92 U/L (45-117); BUN Blood Urea Nitrogen 22 mg/dL (7-18); Bicarbonate 21 mmol/L (21-32); Bilirubin Direct < 0.1 mg/dL (0-0.2); Bilirubin Total 0.4 mg/dL (0.2-1.0); Glucose Level 153 mg/dL (74-106); Lipase 184 U/L (73-393); Potassium 4.5 mmol/L (3.5-5.1); Protein, Total 7.6 g/dL (6.4-8.2); Sodium Level 137 mmol/L (136-145)
[2019-08-19 14:33] LABS: Urine Blood NEGATIVE (NEG); Urine Glucose NEGATIVE (NEG); Urine Protein NEGATIVE (NEG)
[2019-08-19 14:42] LABS: Urine Bacteria 20-50 /HPF (NONE SEEN); Urine Culture Reflex Order REFLEXED; Urine Mucus SLIGHT /HPF (NONE SEEN); Urine RBC <5 /HPF (NONE SEEN)
--- NOTE | 2019-08-19 15:04 | RAD REPORT ---
EXAM DESCRIPTION: CTAbdomen Pelvis W Contrast - 08/19/2019 2:38 pm CLINICAL HISTORY: Abdominal pain. ABD PAIN COMPARISON: Abdomen Pelvis W Contrast dated 02/23/2019; Abdomen Pelvis W Contrast dated 05/16/2017 ; Abdomen Pelvis W Contrast dated 05/07/2017; Abdomen Pelvis W Contrast dated 08/21/2016 TECHNIQUE: Biphasic CT imaging of the abdomen and pelvis was performed with 100 ml non-ionic IV cont rast. All CT scans are performed using dose optimization technique as appropriate and may include automated exposure control or mA/KV adjustment according to patient size. FINDINGS: Linear atelectasis is present in both lung bases. Mild fatty liver. The spleen, pancreas, adrenal glands are normal. Punctate calculi in both kidneys a re seen compatible bilateral nephrolithiasis. 27 mm cyst is present right kidney inferior aspect. No bowel obstruction, free air, free fluid or abscess. Small fat containing umbilical hernia. The sandy endix is normal. 9 cm length of sigmoid colon demonstrates wall thickening and mild pericolonic infla mmatory changes in the left lower quadrant likely indicating mild acute diverticulitis. No abscess. N o evidence of significant lymphadenopathy. Aortoiliac atherosclerosis. Moderate fecal retention in th e colon. No suspicious bony findings. IMPRESSION: Mild acute diverticulitis is possible involving a 9 cm length of the sigmoid colon. Ther e is moderate upstream retention stool. Advise followup colonoscopy after appropriate therapy to excl ude underlying malignancy possibility.
[2019-08-19] MEDS ORDERED: Levofloxacin 750mg IV 750 MG/150 ML BAG IV ONE (15:29)
[2019-08-19] MEDS ORDERED: METRONIDAZOLE 500mg IVPB 500 MG/100 ML BAG IV ONE (15:29)
--- NOTE | 2019-08-19 16:00 | EDPHYS ---
Physician Documentation [facility] Name: Gregory Dumont Age: 59 yrs Sex: Male : 1960 Arrival Date: 08/19/2019 Time: 13:29 Bed 26 Private MD: Lucy Gomes ED Physician Cameron Avery HPI: 08/19 14:29 This 59 yrs old Male presents to ER via Ambulatory with complaints of jmm Abdominal Swelling. 14:29 The patient presents with abdominal pain. Onset: The symptoms/episode began/occurred jmm gradually, today. The symptoms radiate to. Associated signs and symptoms: Pertinent positives: nausea. The symptoms are described as achy, sharp. This is a 59 year old male that presents to the ED with complaints of lower abdominal pain beginning this morning. Pain radiates from the suprapubic region to the left and right lower abdomen. Denies similar episode in the past. . Historical: - Allergies: 13:48 NKA; iw - PMHx: 13:48 ADD/ADHD; Bipolar disorder; CVA; HEP C; HYPOGLYCEMIA; Irregular heart rate; iw - PSHx: 13:48 Knee surgery; iw - Immunization history:: Adult Immunizations not up to date. - Social history:: Smoking status: Patient uses tobacco products, denies chronic smoking, but will smoke occasionally. - Ebola Screening: : Patient negative for fever greater than or equal to 101.5 degrees Fahrenheit, and additional compatible Ebola Virus Disease symptoms Patient denies exposure to infectious person Patient denies travel to an Ebola-affected area in the 21 days before illness onset No symptoms or risks identified at this time. ROS: 14:29 Constitutional: Negative for fever, chills, and weight loss, Cardiovascular: Negative jmm for chest pain, palpitations, and edema, Respiratory: Negative for shortness of breath, cough, wheezing, and pleuritic chest pain. 14:29 Abdomen/GI: Positive for abdominal pain, nausea. 14:29 All other systems are negative. Exam: 14:29 Constitutional: This is a well developed, well nourished patient who is awake, alert, jmm and in no acute distress. Head/Face: atraumatic. Eyes: EOMI, no conjunctival erythema appreciated ENT: Moist Mucus Membranes Neck: Trachea midline, Supple Chest/axilla: Normal chest wall appearance and motion. Cardiovascular: Regular rate and rhythm. No edema appreciated Respiratory: Normal respirations, no respiratory distress appreciated 14:29 Back: Normal ROM Skin: General appearance color normal MS/ Extremity: Moves all extremities, no obvious deformities appreciated, no edema noted to the lower extremities Neuro: Awake and alert, normal gait Psych: Behavior is normal, Mood is normal, Patient is cooperative and pleasant 14:29 Abdomen/GI: Inspection: abdomen appears normal, Bowel sounds: normal, Palpation: soft, moderate abdominal tenderness, in the suprapubic area, right lower quadrant and left lower quadrant. Vital Signs: 13:51 BP 108 / 76; Pulse 89; Resp 16; Temp 98.1; Pulse Ox 96% on R/A; Weight 72.57 kg; Height iw 5 ft. 11 in. (180.34 cm); Pain 10/10; 15:27 BP 108 / 77; Pulse 85; Resp 18; Pulse Ox 95% on R/A; Pain 4/10; mg2 16:39 BP 106 / 76; Pulse 77; Resp 18; Pulse Ox 95% on R/A; mg2 17:15 BP 109 / 66; Pulse 75; Resp 18; Temp 98; Pulse Ox 100% on R/A; mg2 13:51 Body Mass Index 22.31 (72.57 kg, 180.34 cm) iw MDM: 13:57 Patient medically screened. [facility] 15:54 Data reviewed: vital signs, nurses notes. Counseling: I had a detailed discussion with petey the patient and/or guardian regarding: the historical points, exam findings, and any diagnostic results supporting the discharge/admit diagnosis, lab results, radiology results, the need for further work-up and treatment in the hospital. ED course: I discussed the patient with Dr. Ureña whom accepted admission. . 08/19 13:41 Order name: Basic Metabolic Panel; Complete Time: 14:44 mg2 08/19 13:41 Order name: CBC with Diff mg2 08/19 13:41 Order name: Creatinine for Radiology; Complete Time: 14:44 mg2 08/19 13:41 Order name: Hepatic Function; Complete Time: 14:44 mg2 08/19 13:41 Order name: Lipase; Complete Time: 14:44 mg2 08/19 14:26 Order name: Urine Dipstick--Ancillary (enter results); Complete Time: 14:44 ms 08/19 14:03 Order name: CT Abd/Pelvis - IV Contrast Only; Complete Time: 15:20 [facility] 08/19 14:26 Order name: Urine Microscopic Only; Complete Time: 14:44 ms 08/19 14:45 Order name: Urine Culture [facility] 08/19 13:41 Order name: IV Saline Lock; Complete Time: 13:51 mg2 08/19 13:41 Order name: Labs collected and sent; Complete Time: 13:51 mg2 08/19 14:03 Order name: Urine Dipstick-Ancillary (obtain specimen); Complete Time: 14:32 [facility] Administered Medications: 10/16 14:30 Drug: Zofran 4 mg Route: IVP; Site: left antecubital; mg2 08/19 15:48 Follow up: Response: No adverse reaction; Marked relief of symptoms mg2 14:30 Drug: morphine 4 mg Route: IVP; Site: left antecubital; mg2 15:49 Follow up: Response: No adverse reaction; Marked relief of symptoms mg2 15:34 Drug: Flagyl 500 mg Volume: 100 ml; Route: IVPB; Rate: 200 ml/hr; Infused Over: 30 mg2 mins; Site: left antecubital; 17:11 Follow up: Response: No adverse reaction; IV Status: Completed infusion mg2 15:48 Drug: LevaQUIN 750 mg Volume: 150 ml; Route: IVPB; Infused Over: 90 mins; Site: left mg2 antecubital; 17:16 Follow up: Response: No adverse reaction; IV Status: Completed infusion mg2 17:14 Drug: morphine 4 mg Route: IVP; Site: left antecubital; mg2 17:15 Follow up: Response: No adverse reaction mg2 Disposition: 17:33 Co-signature as Attending Physician, Cameron Avery MD. rn Disposition: 08/19/19 15:58 Hospitalization ordered by Dimitris Ureña for Observation. Preliminary diagnosis is Diverticulitis of large intestine without perforation or abscess with bleeding. - Bed requested for Telemetry/MedSurg (observation). - Status is Observation. mg2 - Condition is Stable. - Problem is new. - Symptoms are unchanged. UTI on Admission? Yes Signatures: Dispatcher [employer] EDMD Baudilio Burns PA PA Lima García RN RN Cameron Avery MD MD rn Martinez, Eric em1 [place], Delroy, RN RN mg2 Corrections: (The following items were deleted from the chart) 16:55 15:58 Hospitalization Ordered by Dimitris Ureña DO for Observation. Preliminary em1 diagnosis is Diverticulitis of large intestine without perforation or abscess with bleeding. Bed requested for Telemetry/MedSurg (observation). Status is Observation. Condition is Stable. Problem is new. Symptoms are unchanged. UTI on Admission? Yes. [facility] 17:32 16:55 08/19/2019 15:58 Hospitalization Ordered by Dimitris Ureña DO for Observation. mg2 Preliminary diagnosis is Diverticulitis of large intestine without perforation or abscess with bleeding. Bed requested for Telemetry/MedSurg (observation). Status is Observation. Condition is Stable. Problem is new. Symptoms are unchanged. UTI on Admission? Yes. em1
--- NOTE | 2019-08-19 16:00 | ER ---
Nurse's Notes [facility] Name: Gregory Dumont Age: 59 yrs Sex: Male : 1960 Arrival Date: 08/19/2019 Time: 13:29 Bed 26 Private MD: Lucy Gomes Diagnosis: Diverticulitis of large intestine without perforation or abscess with bleeding Presentation: 08/19 13:47 Presenting complaint: Patient states: lower abd pain started today, denies n/v/d, iw denies urinary s/s. Transition of care: patient was not received from another setting of care. Onset of symptoms was August 19, 2019. Risk Assessment: Do you want to hurt yourself or someone else? Patient reports no desire to harm self or others. Initial Sepsis Screen: Does the patient meet any 2 criteria? No. Patient's initial sepsis screen is negative. Does the patient have a suspected source of infection? No. Patient's initial sepsis screen is negative. Care prior to arrival: None. 13:47 Method Of Arrival: Ambulatory iw 13:47 Acuity: MARION 3 iw Historical: - Allergies: 13:48 NKA; iw - PMHx: 13:48 ADD/ADHD; Bipolar disorder; CVA; HEP C; HYPOGLYCEMIA; Irregular heart rate; iw - PSHx: 13:48 Knee surgery; iw - Immunization history:: Adult Immunizations not up to date. - Social history:: Smoking status: Patient uses tobacco products, denies chronic smoking, but will smoke occasionally. - Ebola Screening: : Patient negative for fever greater than or equal to 101.5 degrees Fahrenheit, and additional compatible Ebola Virus Disease symptoms Patient denies exposure to infectious person Patient denies travel to an Ebola-affected area in the 21 days before illness onset No symptoms or risks identified at this time. Screenin:26 Abuse screen: Denies threats or abuse. Denies injuries from another. Nutritional mg2 screening: No deficits noted. Tuberculosis screening: No symptoms or risk factors identified. Fall Risk IV access (20 points). Assessment: 14:30 General: Appears in no apparent distress. comfortable, Behavior is calm, cooperative. mg2 14:30 Pain: Complains of pain in left lower quadrant and right lower quadrant and suprapubic mg2 area Pain does not radiate. Pain currently is 6 out of 10 on a pain scale. Quality of pain is described as aching, Pain began gradually, Is intermittent. Neuro: Level of Consciousness is awake, alert, obeys commands, Oriented to person, place, time, situation. Cardiovascular: Capillary refill < 3 seconds Patient's skin is warm and dry. Respiratory: Airway is patent Respiratory effort is even, unlabored, Respiratory pattern is regular, symmetrical. GI: Bowel sounds present X 4 quads. Abdomen is tender to palpation X 4 quads. Abd is rigid X 4 quads. GI: Abdomen is round distended. : Urine is see urine dip. EENT: No signs and/or symptoms were reported regarding the EENT system. Derm: Skin is intact, is healthy with good turgor, Skin is pink, warm \T\ dry. normal. Musculoskeletal: Circulation, motion, and sensation intact. Capillary refill < 3 seconds. 15:27 Reassessment: Patient appears in no apparent distress at this time. Patient and/or mg2 family updated on plan of care and expected duration. Pain level reassessed. Patient is alert, oriented x 3, equal unlabored respirations, skin warm/dry/pink. Patient states feeling better. 15:49 Reassessment: dr ureña at bedside with the patient advise for admission. mg2 Vital Signs: 13:51 BP 108 / 76; Pulse 89; Resp 16; Temp 98.1; Pulse Ox 96% on R/A; Weight 72.57 kg; Height iw 5 ft. 11 in. (180.34 cm); Pain 10/10; 15:27 BP 108 / 77; Pulse 85; Resp 18; Pulse Ox 95% on R/A; Pain 4/10; mg2 16:39 BP 106 / 76; Pulse 77; Resp 18; Pulse Ox 95% on R/A; mg2 17:15 BP 109 / 66; Pulse 75; Resp 18; Temp 98; Pulse Ox 100% on R/A; mg2 13:51 Body Mass Index 22.31 (72.57 kg, 180.34 cm) ED Course: 13:29 Patient arrived in ED. as 13:29 Lucy Gomes MD is Private Physician. as 13:38 Delroy Hernandez, RN is Primary Nurse. mg2 13:43 Baudilio Burns PA is [facility] 13:43 Cameron Avery MD is Attending Physician. jmm 13:47 Triage completed. iw 13:51 Arm band placed on. iw 13:55 Inserted saline lock: 20 gauge in left antecubital area, using aseptic technique. Blood mg2 collected. 14:38 CT Abd/Pelvis - IV Contrast Only In Process Unspecified. EDMS 14:38 CT completed. Patient tolerated procedure well. Patient moved back from CT. kw1 15:26 Patient has correct armband on for positive identification. Pulse ox on. NIBP on. mg2 15:26 No provider procedures requiring assistance completed. mg2 15:55 Dimitris Ureña DO is Hospitalizing Provider. jmm 17:15 Patient admitted, IV remains in place. mg2 Administered Medications: 10/16 14:30 Drug: Zofran 4 mg Route: IVP; Site: left antecubital; mg2 08/19 15:48 Follow up: Response: No adverse reaction; Marked relief of symptoms mg2 14:30 Drug: morphine 4 mg Route: IVP; Site: left antecubital; mg2 15:49 Follow up: Response: No adverse reaction; Marked relief of symptoms mg2 15:34 Drug: Flagyl 500 mg Volume: 100 ml; Route: IVPB; Rate: 200 ml/hr; Infused Over: 30 mg2 mins; Site: left antecubital; 17:11 Follow up: Response: No adverse reaction; IV Status: Completed infusion mg2 15:48 Drug: LevaQUIN 750 mg Volume: 150 ml; Route: IVPB; Infused Over: 90 mins; Site: left mg2 antecubital; 17:16 Follow up: Response: No adverse reaction; IV Status: Completed infusion mg2 17:14 Drug: morphine 4 mg Route: IVP; Site: left antecubital; mg2 17:15 Follow up: Response: No adverse reaction mg2 Outcome: 15:58 Decision to Hospitalize by Provider. jmm 17:15 Admitted to Tele accompanied by nurse, via wheelchair, room 424, with chart, Report mg2 called to NIKI Dennison 17:15 Condition: stable 17:15 Instructed on the need for admit, Demonstrated understanding of instructions. 17:32 Patient left the ED. mg2 Signatures: Dispatcher [employer] EDMS Baudilio Burns PA PA jmm Martinez, Amelia as Williams, Irene, RN RN iw Leslie Sewell kw1 Delroy Hernandez RN RN mg2 Corrections: (The following items were deleted from the chart) 13:52 13:51 BP 108 / 7; Pulse 89bpm; Resp 16bpm; Pulse Ox 96% RA; Temp 98.1F; 72.57 kg; iw Height 5 ft. 11 in.; BMI: 22.3; Pain 10/10; iw
--- NOTE | 2019-08-19 17:05 | P.HP ---
Certification for Inpatient Patient admitted to: Inpatient With expected LOS: >2 Midnights Patient will require the following post-hospital care: None Practitioner: I am a practitioner with admitting privileges, knowledge of patient current condition, hospital course, and medical plan of care. Services: Services provided to patient in accordance with Admission requirements found in Title 42 Section 412.3 of the Code of Federal Regulations Patient History Date of Service: 08/19/19 Primary Care Provider: Dr. Gomes; Neurology-Dr. Romero; PSYC-Dr. Moreno Reason for admission: Abdominal pain History of Present Illness: 59-year-old male with history of hepatitis-C, bipolar disorder, COPD and history of CVA. Patient presented with abdominal pain. Over the last 2 days patient has reported increasing pain to the periumbilical region. He rates the pain about a 8/10. It does not radiate. He did not report any significant nausea or vomiting with this. Patient with history of diverticulitis in 2016. Patient came to the ER for further evaluation. In the ER patient evaluated. Vital signs stable. White count 23.3, hemoglobin 15. Sodium 137, potassium 4.5. BUN of 22, creatinine 1.3 with a GFR 54. Glucose 153. Lipase unremarkable. LFTs unremarkable. CT scan revealed a 9 cm area of sigmoid diverticulitis. No obstruction, perforation or abscess noted. Patient was started on IV antibiotic therapy and fluids. Patient was admitted for further evaluation and treatment. When I saw the patient in the ER, he appeared comfortable. Pain improved with medication. Patient has not had a colonoscopy in the past. Patient reported diverticulitis in 2016. Allergies No Known Allergies Allergy (Verified 04/26/16 10:14) Home medications list reviewed: Yes Home Medications: [place] Carbonate [Lithotabs *] 1 tab PO DAILY 02/23/19 Trazodone [Desyrel*] 50 mg PO DAILY 02/23/19 Zolpidem Tartrate 5 mg PO DAILY 02/23/19 Ciprofloxacin HCl [Cipro 500 MG Tablet] 500 mg PO DAILY 14 Days #14 tab metroNIDAZOLE [Flagyl] 500 mg PO Q8H 14 Days #42 tablet 02/24/19 - Past Medical/Surgical History Diabetic: No -: Bipolar disorder -: Hypoglycemia -: ADHD -: Osteoarthritis of the knee -: Nephrolithiasis -: Right renal cyst -: Umbilical and inguinal hernia -: Former tobacco use -: Hepatitis-C -: Rt knee replacement 08/09/16 Psychosocial/ Personal History: He is , has 2 children, he does not work. - Family History Mother -: Other (see notes) Notes: Hypoglycemia - Social History Smoking Status: Former smoker Alcohol use: No CD- Drugs: No Caffeine use: Yes Place of Residence: Home Review of Systems General: As per HPI Eyes: Unremarkable ENT: Unremarkable Respiratory: Unremarkable Cardiovascular: Unremarkable Gastrointestinal: Abdominal Pain, As per HPI Genitourinary: Unremarkable Musculoskeletal: Unremarkable Integumentary: Unremarkable Neurological: Unremarkable Lymphatics: Unremarkable Physical Examination - Physical Exam General: Alert, In no apparent distress, Oriented x3, Cooperative HEENT: Atraumatic, Normocephalic, PERRLA, Mucous membr. moist/pink Neck: Supple Respiratory: Clear to auscultation bilaterally, Normal air movement Cardiovascular: Normal pulses, Regular rate/rhythm Gastrointestinal: Normal bowel sounds, Soft and benign, Non-distended, No masses , No rebound, No guarding, Tenderness (Pain to the periumbilical region. Umbilical hernia noted.) Musculoskeletal: No erythema, No tenderness, No warmth Integumentary: No tenderness/swelling, No erythema, No warmth, No cyanosis Neurological: Normal speech, Normal strength at 5/5 x4 extr, Normal tone, Normal affect - Studies Laboratory Data (last 24 hrs) 08/19/19 13:45: Creatinine 1.35 H 08/19/19 13:45: WBC 23.3 H*, Hgb 15.1, Hct 43.5, Plt Count 257 08/19/19 13:45: Sodium 137, Potassium 4.5, BUN 22 H, Creatinine 1.37 H, Glucose 153 H, Total Bilirubin 0.4, AST 15, ALT 21, Alkaline Phosphatase 92, Lipase 184 Assessment and Plan - Plan Impression: Abdominal pain secondary to recurrent sigmoid diverticulitis Bipolar disorder Acute renal injury likely dehydration COPD Former Tobacco abuse History of CVA Plan: Abdominal pain secondary to recurrent sigmoid diverticulitis: Patient will be admitted for further evaluation and treatment. Will obtain blood cultures. Will continue with IV Cipro and Flagyl. Will keep the patient NPO for bowel rest. Will continue with IV fluids. Electrolyte protocol in place. DVT prophylaxis-Lovenox ordered. Will consult surgery for further evaluation and recommendation. Patient with history of sigmoid diverticulitis in 2016. Patient has not had a colonoscopy in the past. Patient will require colonoscopy in 4-6 weeks with GI after hospitalization. Due to his history of recurrent diverticulitis and age, patient will likely require colectomy with evaluation by colorectal surgery. Await further recommendations from surgery. I will turn the service over to Dr. Serrano tomorrow. I will go over the plan of care with her. Anticipate discharge in the next 2-4 days pending clinical improvement. Bipolar disorder: Patient takes lithium. Will obtain lithium level. Will need to obtain and restart home medication. Acute renal injury likely dehydration: Continue IV fluids. Electrolyte protocol in place. Will monitor lab closely. COPD: Will continue to provide COPD medication. Maintain sats above 93%. Former Tobacco abuse: Continue tobacco cessation education. History of CVA: Continue with DVT prophylaxis-Lovenox. Discharge Plan: Home Plan to discharge in: Greater than 2 days - Advance Directives Does patient have a Living Will: No Does patient have a Durable POA for Healthcare: No - Code Status/Comfort Care Code Status Assessed: Yes (Patient is full code) Time Spent Managing Pts Care (In Minutes): 55
[2019-08-19] MEDS ORDERED: MORPHINE 2 MG/ML SYR IV PRN (17:08)
[2019-08-19] MEDS ORDERED: IPRATROPIUM BROM 0.5MG/2.5ML NEB PRN (17:08)
[2019-08-19] MEDS ORDERED: ACETAMINOPHEN 500 MG TAB PO PRN (17:08)
[2019-08-19] MEDS ORDERED: ONDANSETRON 4 MG/2 ML VIAL IV PRN (17:08)
[2019-08-19] MEDS ORDERED: ACETAMINOPHEN 650MG/RECT SUPP PR PRN (17:08)
[2019-08-19] MEDS ORDERED: LORazepam 2 MG/ML VIAL IV PRN (17:08)
[2019-08-19] MEDS ORDERED: ALBUTEROL 2.5 MG/3 ML NEB SOL NEB PRN (17:08)
[2019-08-19] MEDS: NA CHLORIDE 0.9% 1,000 ML IV SCH (18:29)
[2019-08-19 19:05] LABS: Platelet Estimate ADEQ
[2019-08-19 19:06] LABS: Blood Morphology Comment NOT SEEN (NOT SEEN); Toxic Granulation PRESENT
[2019-08-19] MEDS: ARFORMOTEROL TARTRATE 15 MCG/2 ML VIAL.NEB NEB SCH (20:00)
[2019-08-19] MEDS: CIPROFLOXACIN 400mg IV 400 MG/200 ML BAG IV SCH (21:48)
[2019-08-19] MEDS: FAMOTIDINE 20 MG/2 ML VIAL IV SCH (21:49)
[2019-08-19] MEDS: FENTANYL CITR 100 MCG/2 ML IV PRN (22:00)
[2019-08-20] MEDS: METRONIDAZOLE 500mg IVPB 500 MG/100 ML BAG IV SCH ×3 (01:27→16:25)
[2019-08-20] MEDS: FENTANYL CITR 100 MCG/2 ML IV PRN ×3 (02:16→11:09)
[2019-08-20 04:18] LABS: Absolute Lymphocytes (CBC) 1.4 K/uL (0.7-4.9); Basophils % 0.2 % (0-1.3); Hematocrit 36.7 % (39.6-49.0); Lymphocytes % 8.4 % (15.3-44.8); MPV 9.6 fL (7.6-11.3); RBC Red Blood Cell Count 4.09 M/uL (4.33-5.43)
[2019-08-20 04:32] LABS: Potassium 4.1 mmol/L (3.5-5.1)
[2019-08-20] MEDS: NA CHLORIDE 0.9% 1,000 ML IV SCH ×3 (05:44→16:26)
[2019-08-20 06:12] VITALS: BMI 39.4
[2019-08-20] MEDS: ARFORMOTEROL TARTRATE 15 MCG/2 ML VIAL.NEB NEB SCH ×2 (08:31→20:10)
[2019-08-20] MEDS: CIPROFLOXACIN 400mg IV 400 MG/200 ML BAG IV SCH ×2 (09:34→21:43)
[2019-08-20] MEDS: FAMOTIDINE 20 MG/2 ML VIAL IV SCH ×2 (09:35→21:42)
[2019-08-20] MEDS: ENOXAPARIN 40 MG/0.4 ML SQ SCH (09:35)
[2019-08-20] MEDS: FOLIC ACID 1 MG in NA CHLORIDE 0.9% 50 ML IV SCH (11:09)
[2019-08-20] MEDS ORDERED: TRAMADOL HCL 50 MG TAB PO PRN (14:52)
--- NOTE | 2019-08-20 14:55 | P.PN ---
Subjective Date of Service: 08/20/19 Primary Care Provider: Dr. Gomes; Neurology-Dr. Romero; PSYC-Dr. Moreno Chief Complaint: Abdominal pain Patient seen and examined at bedside with RN. Chart reviewed. Case discussed with general surgery at this time. No complaints to offer overnight. Denies having any nausea vomiting abdominal pain fever chills at this time Review of Systems 10-point ROS is otherwise unremarkable Physical Examination - Vital Signs Temperature: 98.4 F Blood Pressure: 110/65 Pulse: 71 Respirations: 16 Pulse Ox (%): 94 - Physical Exam General: Alert, In no apparent distress HEENT: Atraumatic, PERRLA, EOMI Neck: Supple, JVD not distended Respiratory: Clear to auscultation bilaterally, Normal air movement Cardiovascular: Regular rate/rhythm, Normal S1 S2 Gastrointestinal: Normal bowel sounds, Soft and benign, Non-distended, Tenderness (Generalized tenderness) Musculoskeletal: No tenderness Integumentary: No rashes Neurological: Normal speech, Normal tone, Normal affect Lymphatics: No axilla or inguinal lymphadenopathy - Studies Laboratory Data (last 24 hrs) 08/19/19 13:45: WBC 23.3 H*, Hgb 15.1, Hct 43.5, Plt Count 257 Medications List Reviewed: Yes Assessment And Plan - Current Problems (Diagnosis) (1) Diverticulitis Onset Date: 08/23/16 Current Visit: No Status: Acute Plan: Patient with acute reoccur diverticulitis -currently on IV ciprofloxacin and Flagyl -patient still with abdominal tenderness and bowel movement with possible blood -will keep patient NPO at this time except pain medication -general surgery consulted. Appreciated recommendations -patient will need 6 weeks Follow up with GI for colonoscopy and colorectal surgeon evaluation as well. Qualifiers: Diverticulitis site: large intestine Diverticulitis bleeding: without bleeding Diverticulitis complication: without perforation or abscess Qualified Code(s): K57.32 - Diverticulitis of large intestine without perforation or abscess without bleeding (2) Adult ADHD Onset Date: 08/23/16 Current Visit: No Status: Chronic (3) Bipolar disorder Onset Date: 05/17/17 Current Visit: No Status: Chronic Qualifiers: Active/Remission status: remission status unspecified Qualified Code(s): F31.9 - Bipolar disorder, unspecified (4) Hepatitis C Onset Date: 05/17/17 Current Visit: No Status: Chronic Qualifiers: Viral hepatitis chronicity: unspecified Hepatic coma status: without hepatic coma Qualified Code(s): B19.20 - Unspecified viral hepatitis C without hepatic coma - Plan Pending clinical improvement at this time Discharge Plan: Home Plan to discharge in: Greater than 2 days - Code Status/Comfort Care Code Status Assessed: Yes Critical Care: No
--- NOTE | 2019-08-20 16:18 | CON ---
Date of Consultation: 08/19/2019 Reason For Consultation: Sigmoid diverticulitis. History Of Present Illness: The patient is a 59-year-old gentleman with multiple medical problems, c derrick in with 2-day history of diffuse abdominal pain localizing suprapubic and left lower quadrant. Kenney jones does have a history of diverticulitis 3 years ago. He has not had a colonoscopy. He denies any di arrhea. He does have constipation. He does not have blood in his stool. No dysuria or hematuria. No nausea or vomiting. No sore throat, runny nose, cough, headaches, or dizziness. No chest pain. No fever or chills. No family history of colorectal malignancy. Review of Systems: Otherwise, unremarkable. Past Medical History: Significant for bipolar disorder, hypoglycemia, ADHD, nephrolithiasis, hepatit is C. Past Surgical History: Bilateral knee surgery, umbilical and inguinal hernia surgery. Allergies: NONE. Social History: He used to smoke occasionally, may have tobacco, does not drink anymore. Family History: Significant for hypoglycemia. Physical Examination: Vital Signs: Stable. Currently afebrile. General: He is awake, alert, and oriented x3. Head And Neck: Cranial nerves 2 through 12 are grossly within normal limits. No neck masses. No JV D. Throat clear. Neck is supple. Chest: Clear. Heart: S1 and S2. Abdomen: Soft, nondistended. Positive bowel sounds. Positive suprapubic and left lower quadrant te nderness with minimal rebound. No rigidity or guarding. No abdominal wall hernia appreciated. Extremities: Adequately perfused. Nontender. Neuro: Nonfocal. Laboratory Data: White count on admission was 23.3, this morning 16.9. There is a left shift. Chem istry reviewed and his lactic acid is 1.5, otherwise, it is unremarkable. His CT of the abdomen and pelvis reviewed, impression; mild acute diverticulitis, possible involving a 9 cm rectosigmoid colon. There is moderate upstream retention, so advised to follow up colonoscopy after appropriate therapy to exclude underlying malignant possibility. Assessment: Acute sigmoid diverticulitis, could be colitis also. Recommendation: Would be n.p.o. at this time because he is still very tender. Continue IV antibioti cs. We will get dietitian consultation for dietary modification. We will need oral antibiotics for 2 weeks after discharge. Then, he will need a GI evaluation for colonoscopy in 4 to 6 weeks followin g which we recommended patient to get a segmental colon resection because this is his second episode, he is over 50 years old. No need for any acute intervention at this time. We will follow this lowell ent while in the hospital. DAIJA/JACOB Voice ID: [id number] Report ID: [id number]
[2019-08-20] MEDS: MORPHINE 4 MG/ML SYR IV PRN (21:41)
[2019-08-21] MEDS: METRONIDAZOLE 500mg IVPB 500 MG/100 ML BAG IV SCH ×2 (00:36→08:50)
[2019-08-21] MEDS: MORPHINE 4 MG/ML SYR IV PRN ×3 (02:06→10:02)
[2019-08-21 04:25] LABS: Absolute Lymphocytes (CBC) 1.1 K/uL (0.7-4.9); Basophils % 1.3 % (0-1.3); Hematocrit 37.7 % (39.6-49.0); Lymphocytes % 8.4 % (15.3-44.8); MPV 9.3 fL (7.6-11.3); RBC Red Blood Cell Count 4.18 M/uL (4.33-5.43)
[2019-08-21 04:33] LABS: Magnesium 1.9 mg/dL (1.8-2.4); Potassium 4.2 mmol/L (3.5-5.1)
[2019-08-21] MEDS: NA CHLORIDE 0.9% 1,000 ML IV SCH ×2 (06:04→09:08)
[2019-08-21] MEDS: ENOXAPARIN 40 MG/0.4 ML SQ SCH (08:49)
[2019-08-21] MEDS: FAMOTIDINE 20 MG/2 ML VIAL IV SCH (08:49)
[2019-08-21] MEDS: FOLIC ACID 1 MG in NA CHLORIDE 0.9% 50 ML IV SCH (08:49)
[2019-08-21 08:50] VITALS: BP 103/64; TEMP 97.1
[2019-08-21 09:14] VITALS: O2SAT 95
[2019-08-21] MEDS: CIPROFLOXACIN 400mg IV 400 MG/200 ML BAG IV SCH (09:55)
--- NOTE | 2019-08-21 11:51 | P.DS ---
Admission Date: 08/19/19 Discharge Date: 08/21/19 Primary Care Provider: Dr. Gomes; Neurology-Dr. Romero; PSYC-Dr. Mroeno Disposition: ROUTINE DISCHARGE Discharge Condition: GOOD Reason for Admission: Abdominal pain Consultations: General surgery - Problems (1) Diverticulitis Onset Date: 08/23/16 Current Visit: No Status: Acute Qualifiers: Diverticulitis site: large intestine Diverticulitis bleeding: without bleeding Diverticulitis complication: without perforation or abscess Qualified Code(s): K57.32 - Diverticulitis of large intestine without perforation or abscess without bleeding (2) Adult ADHD Onset Date: 08/23/16 Current Visit: No Status: Chronic (3) Bipolar disorder Onset Date: 05/17/17 Current Visit: No Status: Chronic Qualifiers: Active/Remission status: remission status unspecified Qualified Code(s): F31.9 - Bipolar disorder, unspecified (4) Hepatitis C Onset Date: 05/17/17 Current Visit: No Status: Chronic Qualifiers: Viral hepatitis chronicity: unspecified Hepatic coma status: without hepatic coma Qualified Code(s): B19.20 - Unspecified viral hepatitis C without hepatic coma Brief History of Present Illness: 59-year-old male with history of hepatitis-C, bipolar disorder, COPD and history of CVA. Patient presented with abdominal pain. Over the last 2 days patient has reported increasing pain to the periumbilical region. He rates the pain about a 8/10. It does not radiate. He did not report any significant nausea or vomiting with this. Patient with history of diverticulitis in 2016. Patient came to the ER for further evaluation. In the ER patient evaluated. Vital signs stable. White count 23.3, hemoglobin 15. Sodium 137, potassium 4.5. BUN of 22, creatinine 1.3 with a GFR 54. Glucose 153. Lipase unremarkable. LFTs unremarkable. CT scan revealed a 9 cm area of sigmoid diverticulitis. No obstruction, perforation or abscess noted. Patient was started on IV antibiotic therapy and fluids. Patient was admitted for further evaluation and treatment. When I saw the patient in the ER, he appeared comfortable. Pain improved with medication. Patient has not had a colonoscopy in the past. Patient reported diverticulitis in 2016. Allergies Hospital Course: Overall during the hospital stay patient labile Patient was initially admitted to the hospital for her abdominal pain nausea vomiting was found to have diverticulitis. Was started on IV antibiotics here in the hospital was kept NPO. General surgery was consulted who recommended patient be continued on NPO for next 24 hr and IV antibiotics. Patient had marked improvement in his symptoms with leukocytosis improvement along with diarrhea improvement as well. Patient's diet was advanced to clear liquid and to GI soft which she tolerated well. Patient was thus discharged home under stable condition was asked to follow up with GI in about 6 weeks for followup colonoscopy and colorectal surgeon for possible colectomy given the large size of colon That was involved with diverticulitis. Patient was given prescription p.o. ciprofloxacin and Flagyl to be taken for total 14 days. Vital Signs/Physical Exam: Temp Pulse Resp BP Pulse Ox 97.1 F 63 18 103/64 95 08/21/19 08:00 08/21/19 08:00 08/21/19 10:02 08/21/19 08:00 08/21/19 10:02 General: Alert, In no apparent distress HEENT: Atraumatic, PERRLA, EOMI Neck: Supple, JVD not distended Respiratory: Clear to auscultation bilaterally, Normal air movement Cardiovascular: Regular rate/rhythm, Normal S1 S2 Gastrointestinal: Normal bowel sounds, No tenderness Musculoskeletal: No tenderness Integumentary: No rashes Neurological: Normal speech, Normal tone, Normal affect Lymphatics: No axilla or inguinal lymphadenopathy Laboratory Data at Discharge: WBC 13.3 K/uL (4.3-10.9) H D 08/21/19 03:42 Hgb 12.6 g/dL (13.6-17.9) L 08/21/19 03:42 Hct 37.7 % (39.6-49.0) L 08/21/19 03:42 Plt Count 202 K/uL (152-406) 08/21/19 03:42 Sodium 140 mmol/L (136-145) 08/21/19 03:42 Potassium 4.2 mmol/L (3.5-5.1) 08/21/19 03:42 BUN 12 mg/dL (7-18) 08/21/19 03:42 Creatinine 0.91 mg/dL (0.55-1.3) 08/21/19 03:42 Glucose 89 mg/dL (74-106) 08/21/19 03:42 Magnesium 1.9 mg/dL (1.8-2.4) 08/21/19 03:42 Total Bilirubin 0.4 mg/dL (0.2-1.0) 08/19/19 13:45 AST 15 U/L (15-37) 08/19/19 13:45 ALT 21 U/L (12-78) 08/19/19 13:45 Alkaline Phosphatase 92 U/L (45-117) 08/19/19 13:45 Lipase 184 U/L (73-393) 08/19/19 13:45 Home Medications: [place] Carbonate [Lithotabs *] 1 tab PO BID 02/23/19 Albuterol Sulfate [Proair Hfa] 8.5 gm IH BID 08/19/19 Atorvastatin Calcium [Lipitor*] 20 mg PO BEDTIME 08/19/19 Cyclobenzaprine [Flexeril*] 10 mg PO BEDTIME PRN 08/19/19 Diclofenac Sodium [Diclofenac Sodium ER] 75 mg PO BIDP PRN 08/19/19 [place] Carbonate [[place] Carbonate ER] 1 tab PO BID 08/19/19 Memantine HCl 1 tab PO BID 08/19/19 Mirtazapine 1 tab PO BEDTIME PRN 08/19/19 Psyllium [place] [Metamucil] 425 gm PO BID 08/19/19 Ranitidine [Zantac*] 1 tab PO DAILY 08/19/19 Temazepam 1 tab PO BEDTIME 08/19/19 Umeclidinium Caro [Incruse Ellipta] 1 puff IH DAILY 08/19/19 Venlafaxine HCl [Effexor XR] 1 tab PO BEDTIME 08/19/19 Ciprofloxacin HCl [Cipro 500 MG Tablet] 500 mg PO BID #14 tab 08/21/19 metroNIDAZOLE [Flagyl] 500 mg PO Q8H #28 tablet 08/21/19 New Medications: Ciprofloxacin HCl [Cipro 500 MG Tablet] 500 mg PO BID #14 tab metroNIDAZOLE [Flagyl] 500 mg PO Q8H #28 tablet Diet: ADA Activity: Ad renny Followup: Mina Decker MD [ACTIVE - CAN ADMIT] - 1 Week
--- NOTE | 2019-08-21 15:46 | PN ---
Date of Progress Note: 08/21/2019 Subjective: The patient is awake, alert. No complaint. Vital signs stable, afebrile. White count has come down to 13,000. Physical Examination: Vital Signs: Stable. He is afebrile. Abdomen: Soft, nondistended, nontender. Positive bowel sounds. Assessment: Acute sigmoid diverticulitis. Recommendations: Continue IV antibiotics. Begin diet with clear liquids advance as tolerated. Diet ilan consultation. We will need a colonoscopy in 4-6 weeks. Now, I will recommend colorectal evaluat ion for segmental colon resection as this is second episode for the patient. /MODL Voice ID: [id number] Report ID: [id number]
--- OUTSIDE RECORDS SUMMARY | 2019-08-26 20:22 | XMS REPORT ---
:1960 [facility] Address [address] [place] [address] Care Team Providers Name Role Phone Unavailable Unavailable Unavailable Problems This patient has no known problems. Allergies, Adverse Reactions, Alerts This patient has no known allergies or adverse reactions. Medications This patient has no known medications.
--- OUTSIDE RECORDS SUMMARY | 2019-08-26 20:22 | XMS REPORT ---
:1960 Author Organization [employer] Care Team Providers Name Role Phone Gomes, Na Provider Role Unavailable Allergies No Known Allergies Problems Problem Type Condition Code Onset Dates Condition Status Problem Encounter for tobacco use cessation Z71.6 Active counseling Problem Alzheimer''s disease, unspecified G30.9 Active Problem Mild memory disturbance R41.3 Active Problem Simple chronic bronchitis J41.0 Active Problem Smoker F17.200 Active Problem Erectile dysfunction, unspecified N52.9 Active erectile dysfunction type Problem Elevated blood pressure reading R03.0 Active without diagnosis of hypertension Problem Nicotine dependence, cigarettes, F17.210 Active uncomplicated Problem Hypoglycemia E16.2 Active Problem Dementia in other diseases F02.80 Active classified elsewhere without behavioral disturbance Problem Impacted cerumen of left ear H61.22 Active Problem Otalgia of left ear H92.02 Active Problem Bipolar 1 disorder F31.9 Active Problem Arthritis M19.90 Active Problem Irritability and anger R45.4 Active Problem Folliculitis L73.9 Active Problem Pure hypercholesterolemia E78.00 Active Problem Mixed hyperlipidemia E78.2 Active Problem Essential hypertension I10 Active Problem Primary osteoarthritis involving M15.0 Active multiple joints Problem Other chronic pain G89.29 Active Problem Paresthesia of skin R20.2 Active Medications No Known Medications Results No Known Results Summary Purpose [employer] Submission
--- OUTSIDE RECORDS SUMMARY | 2019-08-26 20:22 | XMS REPORT ---
:1960 Author Organization eClinicalWorks Care Team Providers Name Role Phone Gomes, Na Provider Role Unavailable Allergies, Adverse Reactions, Alerts Substance Reaction Event Type N.K.D.A. Info Not Available Non Drug Allergy Problems Problem Type Condition Code Onset Dates Condition Status Assessment Paresthesia of skin R20.2 Active Assessment Anesthesia of skin R20.0 Active Assessment Weakness R53.1 Active Assessment Erectile dysfunction, unspecified N52.9 Active erectile dysfunction type Assessment Vitamin deficiency E56.9 Active Assessment Mild memory disturbance R41.3 Active Assessment Primary osteoarthritis involving M15.0 Active multiple joints Assessment Simple chronic bronchitis J41.0 Active Assessment Essential hypertension I10 Active Problem Primary osteoarthritis involving M15.0 Active multiple joints Assessment Mixed hyperlipidemia E78.2 Active Problem Paresthesia of skin R20.2 Active Assessment Medicare annual wellness visit, Z00.00 Active subsequent Problem Encounter for tobacco use cessation Z71.6 Active counseling Problem Alzheimer''s disease, unspecified G30.9 Active Problem Mild memory disturbance R41.3 Active Problem Simple chronic bronchitis J41.0 Active Problem Erectile dysfunction, unspecified N52.9 Active erectile dysfunction type Problem Smoker F17.200 Active Problem Elevated blood pressure reading R03.0 Active without diagnosis of hypertension Problem Nicotine dependence, cigarettes, F17.210 Active uncomplicated Problem Hypoglycemia E16.2 Active Problem Dementia in other diseases F02.80 Active classified elsewhere without behavioral disturbance Problem Impacted cerumen of left ear H61.22 Active Problem Otalgia of left ear H92.02 Active Assessment Smoker F17.200 Active Problem Bipolar 1 disorder F31.9 Active Assessment Encounter for tobacco use cessation Z71.6 Active counseling Problem Arthritis M19.90 Active Assessment Nicotine dependence, cigarettes, F17.210 Active uncomplicated Problem Irritability and anger R45.4 Active Assessment Encounter for screening for lung Z12.2 Active cancer Problem Folliculitis L73.9 Active Problem Pure hypercholesterolemia E78.00 Active Problem Mixed hyperlipidemia E78.2 Active Problem Essential hypertension I10 Active Problem Other chronic pain G89.29 Active Medications Medication Code Code Instructions Start End Status Dosage System Date Date Albuterol Sulfate [facility] 53172204391 108 (90 Base) Aug 01, 2 puffs HFA MCG/ACT 2018 Inhalation every 6 hours prn sob Incruse Ellipta [facility] 25542728503 62.5 MCG/INH Aug 01April Active 1 puff Inhalation Once 2018 12, a day 2019 blood glucose ND 0 n/s SC once a January Active one test strip 2018 Alcohol Prep Pads ND 0 topical once a January Active as day , directed 2018 2018 Lithobid [facility] 96557032204 300 MG Orally Active 1 tablet twice a day Seroquel ND 02308552591 400 MG Orally Dec 14, Active 1 tablet Once a day at 2017 bedtime Sildenafil ND 89572389394 100 MG Orally Oct Inactive 1 tablet Citrate Once a day 2018 Atorvastatin [facility] 79985539146 20 MG Orally Active 1 tablet Calcium Once a day Fish Oil [facility] 89398453545 1000 MG Orally Active 1 capsule Once a day Super B-Complex [facility] 45933042486 - Orally once a Active as day directed D3 Maximum [facility] 77314430476 5000 UNIT Active 1 capsule Strength Orally Once a day Memantine HCl [facility] 54497602765 10 MG Orally Active 1 tablet Twice a day Atorvastatin [facility] 59527001672 40 MG Orally Active 1 tablet Calcium Once a day Vitamin B12 [facility] 00831649439 1000 MCG Orally Active 1 tablet Once a day Cyanocobalamin [facility] 33973163704 2500 MCG Active as Sublingual once directed a day Co-Enzyme Q-10 [facility] 92931396448 100 MG Orally Active 2 capsule Once a day with a meal Zetia [facility] 99167157724 10 MG Orally Active 1 tablet Once a day Lancets Super NDC 0 n/s finger January Active one Thin stick once 2018 Diclofenac Sodium [facility] 42882091057 75 MG Orally Active 1 tablet Twice a day prn with food pain or milk Trazodone HCl [facility] 43526513991 100 MG Orally Active 1 tablet Once a day at bedtime Ascorbic Acid [facility] 44534066667 500 MG Orally Active 1 tablet twice a day Cialis [facility] 37708768147 20 MG Orally Aug 01Aug Active 1 tablet 2018 Thiamine [facility] 17324119175 50 MG Orally Active 2 capsules Once a day Vitamin B12 [facility] 35428809483 1000 MCG Orally Active 1 tablet Once a day Melatonin [facility] 53592921515 3 MG Orally Active 1 tablet Once a day at bedtime as needed with food Ezetimibe [facility] 97224531239 10 MG Orally Nov 15, Active 1 tablet Once a day 2018 Results Name Result Date Reference Range Unit Abnormality Flag Ct Low Dose Chest Screening Summary Purpose eClinicalWorks Submission
== END 2019-08-21 13:08 | disposition home or self-care (01) | DRG 392 ==
LOC: ER 13:28 → ERHOLD 16:10 → 4TH 17:12
PROVIDERS: ADMIT Family Medicine; ATTEND Family Medicine
DX: K57.32 Diverticulitis of large intestine without perforation or abscess without bleeding (principal); N17.9 Acute kidney failure, unspecified; F90.9 Attention-deficit hyperactivity disorder, unspecified type; F31.9 Bipolar disorder, unspecified; B18.2 Chronic viral hepatitis C; Z86.73 Personal history of transient ischemic attack (TIA), and cerebral infarction without residual deficits; J44.9 Chronic obstructive pulmonary disease, unspecified; Z96.651 Presence of right artificial knee joint; Z87.891 Personal history of nicotine dependence; E86.0 Dehydration
CPT/HCPCS: 36415; 74177; 80048; 80076; 80178; 81003; 81015; 83605; 83690; 83735; 85025; 87040; 87086; 87088; 96365; 96375; 99285; J0744; J1650; J2405; J3010; J7030; J7605; Q9967

== ENCOUNTER 2019-09-03 20:07 | Emergency (ER) | payer OTHER ==
--- OUTSIDE RECORDS SUMMARY | 2019-09-03 20:10 | XMS REPORT ---
[...] Status Dosage System Date Date Albuterol Sulfate [facility] 28235891084 108 (90 Base) Aug 01, 2 puffs HFA MCG/ACT 2018 Inhalation every 6 hours prn sob Incruse Ellipta [facility] 61729479225 62.5 MCG/INH Aug 01April Active 1 puff Inhalation Once 2018 12, a day 2019 blood glucose ND 0 n/s SC once a January Active one test strip 2018 Alcohol Prep Pads ND 0 topical once a January Active as day , directed 2018 2018 Lithobid [facility] 14117797942 300 MG Orally Active 1 tablet twice a day Seroquel ND 82688092478 400 MG Orally Dec 14, Active 1 tablet Once a day at 2017 bedtime Sildenafil ND 53145248853 100 MG Orally Oct Inactive 1 tablet Citrate Once a day 2018 Atorvastatin [facility] 37557685685 20 MG Orally Active 1 tablet Calcium Once a day Fish Oil [facility] 75187259710 1000 MG Orally Active 1 capsule Once a day Super B-Complex [facility] 79726244903 - Orally once a Active as day directed D3 Maximum [facility] 59858731242 5000 UNIT Active 1 capsule Strength Orally Once a day Memantine HCl [facility] 12870333828 10 MG Orally Active 1 tablet Twice a day Atorvastatin [facility] 71953347614 40 MG Orally Active 1 tablet Calcium Once a day Vitamin B12 [facility] 35672099834 1000 MCG Orally Active 1 tablet Once a day Cyanocobalamin [facility] 13507173031 2500 MCG Active as Sublingual once directed a day Co-Enzyme Q-10 [facility] 69009954492 100 MG Orally Active 2 capsule Once a day with a meal Zetia [facility] 06654778334 10 MG Orally Active 1 tablet Once a day Lancets Super NDC 0 n/s finger January Active one Thin stick once 2018 Diclofenac Sodium [facility] 48031794859 75 MG Orally Active 1 tablet Twice a day prn with food pain or milk Trazodone HCl [facility] 37856300468 100 MG Orally Active 1 tablet Once a day at bedtime Ascorbic Acid [facility] 59444081081 500 MG Orally Active 1 tablet twice a day Cialis [facility] 63262981854 20 MG Orally Aug 01Aug Active 1 tablet 2018 Thiamine [facility] 70407734234 50 MG Orally Active 2 capsules Once a day Vitamin B12 [facility] 62574953656 1000 MCG Orally Active 1 tablet Once a day Melatonin [facility] 16492371356 3 MG Orally Active 1 tablet Once a day at bedtime as needed with food Ezetimibe [facility] 71452592317 10 MG Orally Nov 15, Active 1 tablet Once a day 2018 Results Name Result Date Reference Range Unit Abnormality Flag Ct Low Dose Chest Screening Summary Purpose eClinicalWorks Submission
--- OUTSIDE RECORDS SUMMARY | 2019-09-03 20:10 | XMS REPORT ---
:1960 [facility] Address [address] [place] [address] Care Team Providers Name Role Phone Unavailable Unavailable Unavailable Problems This patient has no known problems. Allergies, Adverse Reactions, Alerts This patient has no known allergies or adverse reactions. Medications This patient has no known medications.
[2019-09-03 20:54] LABS: Hematocrit 41.2 % (39.6-49.0); Lymphocytes % 10.3 % (15.3-44.8); MPV 9.4 fL (7.6-11.3); RBC Red Blood Cell Count 4.59 M/uL (4.33-5.43)
[2019-09-03 20:57] LABS: Urine Blood NEGATIVE (NEG); Urine Glucose NEGATIVE (NEG); Urine Protein NEGATIVE (NEG); Urine Specific Gravity 1.015 (1.005-1.030)
[2019-09-03] MEDS ORDERED: KETOROLAC 30 MG/ML INJ ONE (21:02)
[2019-09-03 21:38] LABS: Albumin 3.6 g/dL (3.4-5.0); Bilirubin Direct 0.1 mg/dL (0-0.2); Bilirubin Total 0.4 mg/dL (0.2-1.0)
--- NOTE | 2019-09-03 23:17 | ER ---
Nurse's Notes [facility] Name: Gregory Dumont Age: 59 yrs Sex: Male : 1960 Arrival Date: 09/03/2019 Time: 20:10 Bed 15 Private MD: Diagnosis: Diverticulitis of large intestine without perforation or abscess without bleeding Presentation: 09/03 20:15 Presenting complaint: Patient states: LLQ pain that began today. Patient reports less ss than a week ago he was diagnosed with colitis, but the pain went away and started back up today, but is more sharp. Transition of care: patient was not received from another setting of care. Onset of symptoms was September 03, 2019. Risk Assessment: Do you want to hurt yourself or someone else? Patient reports no desire to harm self or others. Initial Sepsis Screen: Does the patient meet any 2 criteria? HR > 90 bpm. Does the patient have a suspected source of infection? No. Patient's initial sepsis screen is negative. Care prior to arrival: None. 20:15 Method Of Arrival: Ambulatory ss 20:15 Acuity: MARION 3 ss Historical: - Allergies: 20:17 NKA; ss - PMHx: 20:17 ADD/ADHD; Bipolar disorder; CVA; HEP C; HYPOGLYCEMIA; Irregular heart rate; ss - PSHx: 20:17 Knee surgery; ss - Immunization history:: Adult Immunizations up to date. - Social history:: Smoking status: Patient uses tobacco products, smokes one-half pack cigarettes per day. - Ebola Screening: : Patient denies exposure to infectious person Patient denies travel to an Ebola-affected area in the 21 days before illness onset. Screenin:20 Abuse screen: Denies threats or abuse. Nutritional screening: No deficits noted. jb4 Tuberculosis screening: No symptoms or risk factors identified. Fall Risk None identified. Assessment: 20:20 General: Appears in no apparent distress. comfortable, Behavior is calm, cooperative, jb4 appropriate for age. Pain: Complains of pain in left lower quadrant Pain does not radiate. Pain currently is 8 out of 10 on a pain scale. Quality of pain is described as sharp, stabbing. Neuro: Level of Consciousness is awake, alert, obeys commands, Oriented to person, place, time, situation. Cardiovascular: Patient's skin is warm and dry. Respiratory: Airway is patent Respiratory effort is even, unlabored, Respiratory pattern is regular, symmetrical. GI: Abdomen is round Bowel sounds present X 4 quads. Abd is soft and non tender X 4 quads. Reports lower abdominal pain, Patient currently denies diarrhea, nausea, vomiting. : No deficits noted. No signs and/or symptoms were reported regarding the genitourinary system. EENT: No deficits noted. No signs and/or symptoms were reported regarding the EENT system. Derm: Skin is intact, Skin is pink, warm \\T\\ dry. Musculoskeletal: Circulation, motion, and sensation intact. Range of motion: intact in all extremities. 21:08 Reassessment: Patient appears in no apparent distress at this time. Patient and/or jb4 family updated on plan of care and expected duration. Pain level reassessed. Patient is alert, oriented x 3, equal unlabored respirations, skin warm/dry/pink. PT refused pain Toradol saying it does not work. States " the only thing that works for me is Morphine. Check my records and tell the to check my records from last time." Provider notified. Pt asked if he had a ride home, pt states " yes i have a ride home but don't worry about that Morphine thing I'm good, I don't need it.". 21:55 Reassessment: Patient appears in no apparent distress at this time. Patient and/or jb4 family updated on plan of care and expected duration. Pain level reassessed. Patient is alert, oriented x 3, equal unlabored respirations, skin warm/dry/pink. Provider notified that labs have returned and are ready for review. 23:00 Reassessment: Patient appears in no apparent distress at this time. Patient and/or jb4 family updated on plan of care and expected duration. Pain level reassessed. Patient is alert, oriented x 3, equal unlabored respirations, skin warm/dry/pink. Vital Signs: 20:17 BP 116 / 79; Pulse 102; Resp 20; Temp 98.9(TE); Pulse Ox 96% on R/A; Weight 72.57 kg; ss Height 5 ft. 11 in. (180.34 cm); Pain 10/10; 21:00 BP 112 / 76; Pulse 89; Resp 16; Pulse Ox 97% on R/A; jb4 22:00 BP 118 / 81; Pulse 84; Resp 16; Pulse Ox 95% on R/A; jb4 23:00 BP 121 / 85; Pulse 83; Resp 16; Pulse Ox 95% on R/A; jb4 20:17 Body Mass Index 22.32 (72.57 kg, 180.34 cm) ED Course: 20:10 Patient arrived in ED. cf2 20:15 Surinder Edward, RN is Primary Nurse. jb4 20:16 Triage completed. ss 20:17 Arm band placed on right wrist. ss 20:20 Urine collected: clean catch specimen, clear, justino colored. jp3 20:20 No provider procedures requiring assistance completed. jb4 20:26 Tom Hammer MD is Attending Physician. tw4 20:40 Inserted saline lock: 22 gauge in left antecubital area, using aseptic technique. Blood jp3 collected. Patient maintains SpO2 saturation greater than 95% on room air. 20:40 Initial lab(s) drawn, by in, sent to lab. jp3 20:46 Bed in low position. Call light in reach. Verbal reassurance given. Pulse ox on. NIBP jp3 on. 22:40 CT Abd/Pelvis - IV Contrast Only In Process Unspecified. EDMS 23:30 IV discontinued, intact, bleeding controlled, No redness/swelling at site. Pressure jb4 dressing applied. Administered Medications: 21:05 Not Given (Patient Refused): TORadol 30 mg IVP once jb4 Outcome: 23:16 Discharge ordered by . tw4 23:30 Patient left the ED. aa1 23:30 Discharged to home ambulatory. jb4 23:30 Condition: stable 23:30 Discharge instructions given to patient, Instructed on discharge instructions, follow up and referral plans. medication usage, Demonstrated understanding of instructions, follow-up care, medications, Prescriptions given X 1. Signatures: Dispatcher [employer] EDMS Nichol Ulrich RN RN aa1 Aura Jacobs RN RN Surinder Edward, NIKI PRINCE jb4 Tom Hammer MD MD tw4 Jc Mae jp3 Ángel Marr cf2
--- NOTE | 2019-09-03 23:17 | EDPHYS ---
Physician Documentation [facility] Name: Gregory Dumont Age: 59 yrs Sex: Male : 1960 Arrival Date: 09/03/2019 Time: 20:10 Bed 15 Private MD: ED Physician Tom Hammer HPI: 09/04 06:32 This 59 yrs old Male presents to ER via Ambulatory with complaints of tw4 Abdominal Problem. 06:32 The patient presents with abdominal pain in the left lower quadrant. Onset: The tw4 symptoms/episode began/occurred yesterday. The symptoms do not radiate. Associated signs and symptoms: none. The symptoms are described as intermittent, sharp. Modifying factors: The symptoms are alleviated by nothing, the symptoms are aggravated by nothing. Severity of pain: At its worst the pain was mild in the emergency department the pain has resolved has improved. The patient has experienced a previous episode, and the symptoms today are exactly the same. The patient has been recently been admitted at [facility], was discharged a couple of weeks ago, for similar complaints, but despite evaluation and treatment the patient has continued symptoms. Historical: - Allergies: 09/03 20:17 NKA; ss - PMHx: 20:17 ADD/ADHD; Bipolar disorder; CVA; HEP C; HYPOGLYCEMIA; Irregular heart rate; ss - PSHx: 20:17 Knee surgery; ss - Immunization history:: Adult Immunizations up to date. - Social history:: Smoking status: Patient uses tobacco products, smokes one-half pack cigarettes per day. - Ebola Screening: : Patient denies exposure to infectious person Patient denies travel to an Ebola-affected area in the 21 days before illness onset. ROS: 09/04 06:32 Constitutional: Negative for fever, chills, and weight loss, Eyes: Negative for injury, tw4 pain, redness, and discharge, Cardiovascular: Negative for chest pain, palpitations, and edema, Respiratory: Negative for shortness of breath, cough, wheezing, and pleuritic chest pain, Back: Negative for injury and pain, MS/Extremity: Negative for injury and deformity, Skin: Negative for injury, rash, and discoloration, Neuro: Negative for headache, weakness, numbness, tingling, and seizure. Abdomen/GI: Positive for abdominal pain, Negative for nausea and vomiting, nausea, vomiting, and diarrhea, nausea, abdominal cramps, abdominal distension, anorexia, black/tarry stool, rectal pain. Exam: 06:32 Constitutional: This is a well developed, well nourished patient who is awake, alert, tw4 and in no acute distress. Head/Face: Normocephalic, atraumatic. Chest/axilla: Normal chest wall appearance and motion. Nontender with no deformity. No lesions are appreciated. Cardiovascular: Regular rate and rhythm with a normal S1 and S2. No gallops, murmurs, or rubs. Normal PMI, no JVD. No pulse deficits. Respiratory: Lungs have equal breath sounds bilaterally, clear to auscultation and percussion. No rales, rhonchi or wheezes noted. No increased work of breathing, no retractions or nasal flaring. Abdomen/GI: Soft, non-tender, with normal bowel sounds. No distension or tympany. No guarding or rebound. No evidence of tenderness throughout. Back: No spinal tenderness. No costovertebral tenderness. Full range of motion. MS/ Extremity: Pulses equal, no cyanosis. Neurovascular intact. Full, normal range of motion. Neuro: Awake and alert, GCS 15, oriented to person, place, time, and situation. Cranial nerves II-XII grossly intact. Motor strength 5/5 in all extremities. Sensory grossly intact. Cerebellar exam normal. Normal gait. Vital Signs: 09/03 20:17 BP 116 / 79; Pulse 102; Resp 20; Temp 98.9(TE); Pulse Ox 96% on R/A; Weight 72.57 kg; ss Height 5 ft. 11 in. (180.34 cm); Pain 10/10; 21:00 BP 112 / 76; Pulse 89; Resp 16; Pulse Ox 97% on R/A; jb4 22:00 BP 118 / 81; Pulse 84; Resp 16; Pulse Ox 95% on R/A; jb4 23:00 BP 121 / 85; Pulse 83; Resp 16; Pulse Ox 95% on R/A; jb4 20:17 Body Mass Index 22.32 (72.57 kg, 180.34 cm) MDM: 20:26 Patient medically screened. tw4 09/04 06:32 Differential diagnosis: diverticulitis, non-specific abd pain, Peritonitis, tw4 Prostatitis, Pyelonephritis. Data reviewed: vital signs, nurses notes. Data reviewed: lab test result(s), CBC, white blood cell count, hemoglobin, hematocrit, platelets, reticulocyte count, electrolytes, sodium, potassium, chloride, serum bicarbonate, BUN, creatinine, serum glucose, hepatic panel, radiologic studies, CT scan. Data interpreted: Pulse oximetry: Interpretation: normal. Counseling: I had a detailed discussion with the patient and/or guardian regarding: the historical points, exam findings, and any diagnostic results supporting the discharge/admit diagnosis, lab results, radiology results. Special discussion: Based on the patient's Hx, exam, and Dx evaluation, there is no indication for emergent surgery or inpatient Tx. It is understood by the patient/guardian that if the Sx's persist or worsen they need to return immediately for re-evaluation. I discussed with the patient/guardian in detail that at this point there is no indication for admission to the hospital. It is understood, however, that if the symptoms persist or worsen the patient needs to return immediately for re-evaluation. 09/03 20: Order name: Basic Metabolic Panel; Complete Time: 22: 09/03 22: Interpretation: Normal except: CL 108; GFR 63. 09/03: Order name: CBC with Diff; Complete Time: 22: [facility] 09/03 22: Interpretation: Normal except: WBC 19.6; ANNITA% 76.2; LYM% 10.3; NEUT A 14.9. 09/03: Order name: Creatinine for Radiology; Complete Time: 22: [facility] 09/03 22: Interpretation: Within normal limits: CRE 1.11. 09/03: Order name: Hepatic Function; Complete Time: 22: [facility] 09/03 22: Interpretation: Within normal limits. 09/03: Order name: Lipase; Complete Time: 22: [facility] 09/03 22: Interpretation: Within normal limits: LIP 319. 09/03 20:31 Order name: Urine Dipstick--Ancillary (enter results); Complete Time: 22:01 [facility] 09/03 20: Order name: IV Saline Lock; Complete Time: 20:46 09/03 Order name: Labs collected and sent; Complete Time: 20:46 09/03 22:04 Order name: CT Abd/Pelvis - IV Contrast Only tw4 Administered Medications: 09/03 21:05 Not Given (Patient Refused): TORadol 30 mg IVP once jb4 Disposition: 09/03/19 23:16 Discharged to Home. Impression: Diverticulitis of large intestine without perforation or abscess without bleeding. - Condition is Stable. - Discharge Instructions: Diverticulitis, Diverticulitis, [id number]. - Prescriptions for Tylenol- Codeine #3 300-30 mg Oral Tablet - take 2 tablet by ORAL route every 6 hours As needed; 6 tablet. - Medication Reconciliation Form, Thank You Letter, Antibiotic Education, Prescription Opioid Use form. - Follow up: Private Physician; When: Upon discharge from the Emergency Department; Reason: Recheck today's complaints, Continuance of care. - Problem is new. - Symptoms have improved. Signatures: Dispatcher [employer] EDMS Nichol Ulrich RN RN aa1 Aura Jacobs RN RN Tom Hammer MD MD tw4 Surinder Edward RN jb4 Corrections: (The following items were deleted from the chart) 23:24 23:16 09/03/2019 23:16 Discharged to Home. Impression: Diverticulitis of large tw4 intestine with perforation and abscess without bleeding. Condition is Stable. Forms are Medication Reconciliation Form, Thank You Letter, Antibiotic Education, Prescription Opioid Use. Follow up: Private Physician; When: Upon discharge from the Emergency Department; Reason: Recheck today's complaints, Continuance of care. Problem is new. Symptoms have improved. 4 23:30 23:24 09/03/2019 23:16 Discharged to Home. Impression: Diverticulitis of large aa1 intestine without perforation or abscess without bleeding. Condition is Stable. Discharge Instructions: Diverticulitis, Diverticulitis, [id number]. Prescriptions for Tylenol-Codeine #3 300-30 mg Oral Tablet - take 2 tablet by ORAL route every 6 hours As needed; 6 tablet. and Forms are Medication Reconciliation Form, Thank You Letter, Antibiotic Education, Prescription Opioid Use. Follow up: Private Physician; When: Upon discharge from the Emergency Department; Reason: Recheck today's complaints, Continuance of care. Problem is new. Symptoms have improved. tw4
[2019-09-04 01:33] VITALS: TEMP 98.9
[2019-09-04 01:37] VITALS: O2SAT 95
[2019-09-04 01:39] VITALS: BP 121/85
--- NOTE | 2019-09-04 09:49 | RAD REPORT ---
EXAM DESCRIPTION: CT ABDOMEN PELVIS WITH IV CONTRAST CLINICAL HISTORY: Left lower quadrant pain. COMPARISON: 08/19/2019 TECHNIQUE: CT scan of the abdomen and pelvis was performed with IV contrast. This exam was performed according to our departmental dose-optimization program, which includes automated exposure control, adjustment of the mA and/or kV according to patient size and/or use of iterative reconstruction techn ique. FINDINGS: Mild atelectasis at the right lung base. Pleural or pericardial effusions. The gallbladder is contracted, limiting evaluation. Calcified granulomas in the spleen. The liver, pancreas, and adr enal glands are unremarkable. There are tiny bilateral nonobstructing renal stones. No hydronephrosis . There is focal wall thickening with surrounding inflammatory stranding and diverticula involving the colon. No free air or abscess is seen. The remainder of the small and large bowel including the appen brian are normal. The aorta is normal caliber and contains atherosclerotic calcifications. There are mild degenerative changes of the spine. No abnormal body wall hernia is seen. IMPRESSION: Acute sigmoid diverticulitis without perforation or abscess. Electronically signed by: Shahriar Mcgrath MD 09/03/2019 10:59 PM ELECTION JUDGE Due to temporary technical issues with the PACS/Fluency reporting system, reports are being signed by the in house radiologist as a courtesy to ensure prompt reporting. The interpreting radiologist is f ully responsible for the content of the report.
== END 2019-09-03 23:30 | disposition home or self-care (01) ==
LOC: ER 20:07
DX: K57.32 Diverticulitis of large intestine without perforation or abscess without bleeding (principal); F17.210 Nicotine dependence, cigarettes, uncomplicated
CPT/HCPCS: 85025; 80048; 36415; 80076; 81003; 83690; 74177; 99284; Q9967

== ENCOUNTER 2019-09-05 15:01 | Emergency (ER) | payer OTHER ==
--- OUTSIDE RECORDS SUMMARY | 2019-09-05 15:04 | XMS REPORT ---
[...] Status Dosage System Date Date Albuterol Sulfate [facility] [id number] 108 (90 Base) Aug 01, 2 puffs HFA MCG/ACT 2018 Inhalation every 6 hours prn sob Incruse Ellipta [facility] 94789089202 62.5 MCG/INH Aug 01April Active 1 puff Inhalation Once 2018 12, a day 2019 blood glucose ND 0 n/s SC once a January Active one test strip 2018 Alcohol Prep Pads ND 0 topical once a January Active as day , directed 2018 2018 Lithobid [facility] 58554076496 300 MG Orally Active 1 tablet twice a day Seroquel ND 93724450072 400 MG Orally Dec 14, Active 1 tablet Once a day at 2017 bedtime Sildenafil ND 65853836614 100 MG Orally Oct Inactive 1 tablet Citrate Once a day 2018 Atorvastatin [facility] 41385035773 20 MG Orally Active 1 tablet Calcium Once a day Fish Oil [facility] 04739819954 1000 MG Orally Active 1 capsule Once a day Super B-Complex [facility] 18769091522 - Orally once a Active as day directed D3 Maximum [facility] 81320859806 5000 UNIT Active 1 capsule Strength Orally Once a day Memantine HCl [facility] 67026115251 10 MG Orally Active 1 tablet Twice a day Atorvastatin [facility] 01576915639 40 MG Orally Active 1 tablet Calcium Once a day Vitamin B12 [facility] 25240506017 1000 MCG Orally Active 1 tablet Once a day Cyanocobalamin [facility] 73986799762 2500 MCG Active as Sublingual once directed a day Co-Enzyme Q-10 [facility] 22511077781 100 MG Orally Active 2 capsule Once a day with a meal Zetia [facility] 70272791977 10 MG Orally Active 1 tablet Once a day Lancets Super NDC 0 n/s finger January Active one Thin stick once 2018 Diclofenac Sodium [facility] 20387499694 75 MG Orally Active 1 tablet Twice a day prn with food pain or milk Trazodone HCl [facility] 58423761260 100 MG Orally Active 1 tablet Once a day at bedtime Ascorbic Acid [facility] 43726896066 500 MG Orally Active 1 tablet twice a day Cialis [facility] 27471606430 20 MG Orally Aug 01Aug Active 1 tablet 2018 Thiamine [facility] 18937422392 50 MG Orally Active 2 capsules Once a day Vitamin B12 [facility] 12883666225 1000 MCG Orally Active 1 tablet Once a day Melatonin [facility] 16458425680 3 MG Orally Active 1 tablet Once a day at bedtime as needed with food Ezetimibe [facility] 18591018363 10 MG Orally Nov 15, Active 1 tablet Once a day 2018 Results Name Result Date Reference Range Unit Abnormality Flag Ct Low Dose Chest Screening Summary Purpose eClinicalWorks Submission
--- OUTSIDE RECORDS SUMMARY | 2019-09-05 15:04 | XMS REPORT ---
:1960 [facility] Address [address] [place] [address] Care Team Providers Name Role Phone Unavailable Unavailable Unavailable Problems This patient has no known problems. Allergies, Adverse Reactions, Alerts This patient has no known allergies or adverse reactions. Medications This patient has no known medications.
[2019-09-05] MEDS ORDERED: METOCLOPRAMIDE 10 MG/2mL INJ ONE (16:58)
[2019-09-05] MEDS ORDERED: NA CHLORIDE 0.9% 500 ML ONE (16:58)
[2019-09-05 17:16] LABS: Absolute Lymphocytes (CBC) 1.4 K/uL (0.7-4.9); Basophils % 0.6 % (0-1.3); Hematocrit 39.3 % (39.6-49.0); Lymphocytes % 9.2 % (15.3-44.8); MPV 9.9 fL (7.6-11.3); RBC Red Blood Cell Count 4.41 M/uL (4.33-5.43)
--- NOTE | 2019-09-05 17:21 | RAD REPORT ---
EXAM DESCRIPTION: CT - Head Brain Wo Cont - 09/05/2019 5:06 pm CLINICAL HISTORY: Headache COMPARISON: April 2019 TECHNIQUE: Computed axial tomography of the head was obtained. IV contrast was not requested. All CT scans are performed using dose optimization technique as appropriate and may include automated exposure control or mA/KV adjustment according to patient size. FINDINGS: An intracranial bleed is not seen . The ventricles are normal in caliber. No extra-axial fluid collection is noted. Mild low-density within deep and subcortical white matter a re unchanged perhaps secondary to ischemic changes secondary to small vessel disease Fluid within the sinuses/ mastoids is not seen. IMPRESSION: No acute intracranial abnormality is seen. If patient's symptoms persist MRI of the bra in would be recommended.
[2019-09-05 17:32] LABS: Albumin 3.3 g/dL (3.4-5.0); Bilirubin Total 0.3 mg/dL (0.2-1.0); Protein, Total 6.7 g/dL (6.4-8.2)
--- NOTE | 2019-09-05 18:12 | ER ---
Nurse's Notes [facility] Name: Gregory Dumont Age: 59 yrs Sex: Male : 1960 Arrival Date: 09/05/2019 Time: 15:03 Bed 27 Private MD: Lucy Gomes Diagnosis: Headache Presentation: 09/05 15:22 Presenting complaint: Patient states: "I'm getting some pain up on the top of my head, aj1 2 days its been doing this I don't know if its my blood pressure, I don't know" Denies weakness, numbness, tingling. Denies recent head injury. Transition of care: patient was not received from another setting of care. Onset of symptoms was August 2019. Risk Assessment: Do you want to hurt yourself or someone else? Patient reports no desire to harm self or others. Initial Sepsis Screen: Does the patient meet any 2 criteria? No. Patient's initial sepsis screen is negative. Does the patient have a suspected source of infection? No. Patient's initial sepsis screen is negative. Care prior to arrival: None. 15:22 Method Of Arrival: Ambulatory aj 15:22 Acuity: MARION 3 aj1 Triage Assessment: 15:25 Headache History: Denies prior headaches. General: Appears in no apparent distress. aj1 comfortable, Behavior is calm, cooperative, appropriate for age. Pain: Complains of pain in top of head Pain does not radiate. Pain currently is 8 out of 10 on a pain scale. Quality of pain is described as aching, Pain began 2-3 days ago. Also complains of no other associated symptoms. Neuro: Level of Consciousness is awake, alert, obeys commands, Oriented to person, place, time, situation, Reports headache Denies weakness blurred vision dizziness, paresthesias numbness. Cardiovascular: Patient's skin is warm and dry. Respiratory: Airway is patent Respiratory effort is even, unlabored, Respiratory pattern is regular, symmetrical. Historical: - Allergies: 15:17 NKA; aj1 - Home Meds: 15:17 "sleeping pill ambersol or something like that" [Active]; Ambien Oral [Active]; [place] aj1 Carbonate Oral [Active]; Trazodone Oral [Active]; - PMHx: 15:17 ADD/ADHD; Bipolar disorder; CVA; HEP C; HYPOGLYCEMIA; Irregular heart rate; aj1 - PSHx: 15:25 Knee surgery; aj1 - Immunization history:: Flu vaccine is not up to date. - Social history:: Smoking status: Patient uses tobacco products, denies chronic smoking, but will smoke occasionally. - Ebola Screening: : Patient denies travel to an Ebola-affected area in the 21 days before illness onset. Screenin:19 Abuse screen: Denies threats or abuse. Denies injuries from another. Nutritional rv screening: No deficits noted. Tuberculosis screening: No symptoms or risk factors identified. Fall Risk None identified. Assessment: 18:18 General: Appears in no apparent distress. Behavior is calm, cooperative. Pain: rv Complains of pain in top of head. Neuro: Level of Consciousness is awake, alert, obeys commands, Oriented to person, place, time, situation. Cardiovascular: Patient's skin is warm and dry. Respiratory: Airway is patent. GI: No signs and/or symptoms were reported involving the gastrointestinal system. : No signs and/or symptoms were reported regarding the genitourinary system. EENT: No signs and/or symptoms were reported regarding the EENT system. Derm: Skin is intact. Musculoskeletal: No signs and/or symptoms reported regarding the musculoskeletal system. Vital Signs: 15:25 BP 105 / 71; Pulse 89; Resp 18; Temp 98.3; Pulse Ox 97% on R/A; Weight 72.57 kg (R); aj1 Height 5 ft. 11 in. (180.34 cm) (R); Pain 8/10; 16:30 BP 112 / 74 (/reg); Pulse 73; Resp 18 S; Pulse Ox 95% on R/A; Pain 7/10; jp3 18:23 BP 118 / 76; Pulse 79; Resp 17; Pulse Ox 98% on R/A; rv 15:25 Body Mass Index 22.32 (72.57 kg, 180.34 cm) aj1 ED Course: 15:03 Patient arrived in ED. ag5 15:03 Lucy Gomes MD is Private Physician. ag5 15:17 Triage completed. aj1 15:25 Arm band placed on Patient placed in waiting room, Patient notified of wait time. aj1 16:20 Baudilio Burns PA is PHCP. [facility] 16:20 Shahnaz Miles MD is Attending Physician. m 16:43 Bed in low position. Call light in reach. Side rails up X 1. Verbal reassurance given. jp3 Pulse ox on. NIBP on. 16:44 Patient maintains SpO2 saturation greater than 95% on room air. jp3 16:50 Joaquin Silva, RN is Primary Nurse. rv 17:00 No provider procedures requiring assistance completed. Inserted saline lock: 20 gauge rv in right antecubital area, using aseptic technique. Blood collected. 17:06 CT Head Brain wo Cont In Process Unspecified. EDMS 18:11 Lucy Gomes MD is Referral Physician. jmm 18:22 IV discontinued, intact, bleeding controlled, No redness/swelling at site. Pressure rv dressing applied. Administered Medications: 17:01 Drug: Reglan 10 mg Route: IVP; Site: right antecubital; ss 18:17 Follow up: Response: No adverse reaction; Marked relief of symptoms rv 17:01 Drug: NS 0.9% 500 ml Route: IV; Rate: bolus; Site: right antecubital; ss 18:18 Follow up: IV Status: Completed infusion; IV Intake: 500ml rv Intake: 18:18 IV: 500ml; Total: 500ml. rv Outcome: 18:11 Discharge ordered by MD. [facility] 18:22 Discharged to home ambulatory. rv 18:22 Condition: good 18:22 Discharge instructions given to patient, Instructed on discharge instructions, follow up and referral plans. Demonstrated understanding of instructions, follow-up care. 18:22 Patient left the ED. rv Signatures: Dispatcher [employer] EDOK Izzy Roth RN RN aj1 Baudilio Burns PA PA [facility] Aura Jacobs RN RN ss Joaquin Silva, NIKI RN rv Jc Mae jp3 Aurelia Booker ag5 Corrections: (The following items were deleted from the chart) 15:18 15:14 Presenting complaint: Patient states: "I googled it and it said I have a friction aj1 injury on my penis, but I was still having intercourse. At first it was like a slightly burned area, but I guess from doing it and doing it it just ripped so I have like a perfect cut around this ring. Its been cut cut since like Tuesday. I just needs like an antibiotic or an ointment or something" Denies any drainage from wound. Patient states that it hurts when he pees, but he is not having trouble urinating [facility] 15:14 Transition of care: patient was not received from another setting of care. [place] [id number] 15:14 Onset of symptoms was 2018 [place] [id number] 15:14 Risk Assessment: Do you want to hurt yourself or someone else? Patient reports no [facility] desire to harm self or others. [facility] : 15:14 Initial Sepsis Screen: Does the patient meet any 2 criteria? No. Patient's [facility] initial sepsis screen is negative. Does the patient have a suspected source of infection? No. Patient's initial sepsis screen is negative. [facility] 15:14 Care prior to arrival: None. [place] [id number] 15:14 Method Of Arrival: Ambulatory [place] [id number] 15:14 Acuity: MARION 4 [place] [address] 15:17 Immunization history: Flu vaccine is not up to date. [place] [id number] 15:17 Social history: Smoking status: Patient uses tobacco products, smokes one-half aj1 pack cigarettes per day, aj1
--- NOTE | 2019-09-05 18:12 | EDPHYS ---
Physician Documentation [facility] Name: Gregory Dumont Age: 59 yrs Sex: Male : 1960 Arrival Date: 09/05/2019 Time: 15:03 Bed 27 Private MD: Lucy Gomes ED Physician Shahnaz Miles HPI: 09/05 16:26 This 59 yrs old Male presents to ER via Ambulatory with complaints of jmm Headache. 16:26 The patient complains of pain to the right frontal area, right side of the back of head jmm and right temporal area. Onset: The symptoms/episode began/occurred gradually, 2 day(s) ago. Associated signs and symptoms: Pertinent negatives: fever. The symptoms are alleviated by nothing. the symptoms are aggravated by nothing. This is a 59 year old male with a history of hep c, bipolar that presents to the ED with complaints of right sided headache beginning 2 days ago. Headache gradual onset. Denies fever or neck stiffness. Complains of difficulty reading text but denies vision loss. Denies weakness.. Historical: - Allergies: 15:17 NKA; aj1 - Home Meds: 15:17 "sleeping pill ambersol or something like that" [Active]; Ambien Oral [Active]; [place] aj1 Carbonate Oral [Active]; Trazodone Oral [Active]; - PMHx: 15:17 ADD/ADHD; Bipolar disorder; CVA; HEP C; HYPOGLYCEMIA; Irregular heart rate; aj1 - PSHx: 15:25 Knee surgery; aj1 - Immunization history:: Flu vaccine is not up to date. - Social history:: Smoking status: Patient uses tobacco products, denies chronic smoking, but will smoke occasionally. - Ebola Screening: : Patient denies travel to an Ebola-affected area in the 21 days before illness onset. ROS: 16:26 Constitutional: Negative for fever, chills, and weight loss, Cardiovascular: Negative jmm for chest pain, palpitations, and edema, Respiratory: Negative for shortness of breath, cough, wheezing, and pleuritic chest pain. 16:26 Neuro: Positive for headache. 16:26 All other systems are negative. Exam: 16:26 Constitutional: This is a well developed, well nourished patient who is awake, alert, jmm and in no acute distress. 16:26 Eyes: EOMI, no conjunctival erythema appreciated ENT: Moist Mucus Membranes Neck: Trachea midline, Supple Chest/axilla: Normal chest wall appearance and motion. Cardiovascular: Regular rate and rhythm. No edema appreciated Respiratory: Normal respirations, no respiratory distress appreciated 16:26 Back: Normal ROM Skin: General appearance color normal MS/ Extremity: Moves all extremities, no obvious deformities appreciated, no edema noted to the lower extremities Neuro: Awake and alert, normal gait Psych: Behavior is normal, Mood is normal, Patient is cooperative and pleasant 16:26 Head/face: Exam is negative for erythema, hematoma, tenderness, no temporal tenderness on palpation. 16:26 Abdomen/GI: Inspection: abdomen appears normal, Bowel sounds: normal, Palpation: abdomen is soft and non-tender, in all quadrants. Vital Signs: 15:25 BP 105 / 71; Pulse 89; Resp 18; Temp 98.3; Pulse Ox 97% on R/A; Weight 72.57 kg (R); aj1 Height 5 ft. 11 in. (180.34 cm) (R); Pain 8/10; 16:30 BP 112 / 74 (/reg); Pulse 73; Resp 18 S; Pulse Ox 95% on R/A; Pain 7/10; jp3 18:23 BP 118 / 76; Pulse 79; Resp 17; Pulse Ox 98% on R/A; rv 15:25 Body Mass Index 22.32 (72.57 kg, 180.34 cm) aj1 MDM: 16:26 Patient medically screened. [facility] 18:10 Data reviewed: vital signs, nurses notes. Counseling: I had a detailed discussion with petey the patient and/or guardian regarding: the historical points, exam findings, and any diagnostic results supporting the discharge/admit diagnosis, the need for outpatient follow up, to return to the emergency department if symptoms worsen or persist or if there are any questions or concerns that arise at home. Refusal of service: The patient/guardian displays adequate decision making capability and despite a detailed discussion of alternatives, benefits, risks, and consequences refuses: CT Scan. 18:10 ED course: Abdomen is soft and non tender to palpation. I discussed leukocytosis with petey the patient. No cough, no chest pain, no SOB appreciated. CT negative. I recommended CTA for further evaluation of headache. Patient declined. Patient was otherwise given strict return precautions. Patient understood and agrees with the plan of care. . 09/05 16:45 Order name: CBC with Diff; Complete Time: 17:25 [facility] 09/05 16:45 Order name: CMP; Complete Time: 17:39 [facility] 09/05 16:45 Order name: Saline Lock; Complete Time: 17:01 [facility] 09/05 16:45 Order name: CT Head Brain wo Cont; Complete Time: 17:25 [facility] Administered Medications: 17:01 Drug: Reglan 10 mg Route: IVP; Site: right antecubital; ss 18:17 Follow up: Response: No adverse reaction; Marked relief of symptoms rv 17:01 Drug: NS 0.9% 500 ml Route: IV; Rate: bolus; Site: right antecubital; ss 18:18 Follow up: IV Status: Completed infusion; IV Intake: 500ml rv Disposition: 09/05/19 18:11 Discharged to Home. Impression: Headache. - Condition is Stable. - Discharge Instructions: General Headache Without Cause. - Medication Reconciliation Form, Thank You Letter, Antibiotic Education, Prescription Opioid Use form. - Follow up: Lucy Gomes MD; When: 1 - 2 days; Reason: Recheck today's complaints, Continuance of care, Re-evaluation by your physician. Signatures: Dispatcher [employer] Izzy Chacko RN RN aj1 Baudilio Burns PA PA jmm Smirch, Shelby, RN RN ss Joaquin Silva RN RN rv Corrections: (The following items were deleted from the chart) 15:25 15:17 Immunization history: Flu vaccine is not up to date. 1 aj1 15:25 15:17 Social history: Smoking status: Patient uses tobacco products, smokes one-half aj1 pack cigarettes per day, aj1 18:22 18:11 09/05/2019 18:11 Discharged to Home. Impression: Headache. Condition is Stable. rv Forms are Medication Reconciliation Form, Thank You Letter, Antibiotic Education, Prescription Opioid Use. Follow up: Lucy Gomes; When: 1 - 2 days; Reason: Recheck today's complaints, Continuance of care, Re-evaluation by your physician. [facility]
[2019-09-05 19:40] VITALS: TEMP 98.3
[2019-09-05 19:41] VITALS: BP 112/74; O2SAT 95
== END 2019-09-05 18:22 | disposition home or self-care (01) ==
LOC: ER 15:01
DX: R51 Headache (principal); F31.9 Bipolar disorder, unspecified; B19.20 Unspecified viral hepatitis C without hepatic coma; Z72.0 Tobacco use
CPT/HCPCS: 96361; 85025; 36415; 80053; 70450; 96374; 99284; J2765; J7040

== ENCOUNTER 2019-09-06 19:59 | Emergency (ER) | payer OTHER ==
--- OUTSIDE RECORDS SUMMARY | 2019-09-06 20:01 | XMS REPORT ---
[...] Status Dosage System Date Date Albuterol Sulfate [facility] 11269574201 108 (90 Base) Aug 01, 2 puffs HFA MCG/ACT 2018 Inhalation every 6 hours prn sob Incruse Ellipta [facility] 52254175199 62.5 MCG/INH Aug 01April Active 1 puff Inhalation Once 2018 12, a day 2019 blood glucose ND 0 n/s SC once a January Active one test strip 2018 Alcohol Prep Pads ND 0 topical once a January Active as day , directed 2018 2018 Lithobid [facility] 69780948229 300 MG Orally Active 1 tablet twice a day Seroquel ND 07929654804 400 MG Orally Dec 14, Active 1 tablet Once a day at 2017 bedtime Sildenafil ND 79357860700 100 MG Orally Oct Inactive 1 tablet Citrate Once a day 2018 Atorvastatin [facility] 58367289258 20 MG Orally Active 1 tablet Calcium Once a day Fish Oil [facility] 09773846834 1000 MG Orally Active 1 capsule Once a day Super B-Complex [facility] 65786036116 - Orally once a Active as day directed D3 Maximum [facility] 28942283627 5000 UNIT Active 1 capsule Strength Orally Once a day Memantine HCl [facility] 16912388011 10 MG Orally Active 1 tablet Twice a day Atorvastatin [facility] 40298605063 40 MG Orally Active 1 tablet Calcium Once a day Vitamin B12 [facility] 58406188537 1000 MCG Orally Active 1 tablet Once a day Cyanocobalamin [facility] 25886395760 2500 MCG Active as Sublingual once directed a day Co-Enzyme Q-10 [facility] 71053176921 100 MG Orally Active 2 capsule Once a day with a meal Zetia [facility] 54070727829 10 MG Orally Active 1 tablet Once a day Lancets Super NDC 0 n/s finger January Active one Thin stick once 2018 Diclofenac Sodium [facility] 37007524525 75 MG Orally Active 1 tablet Twice a day prn with food pain or milk Trazodone HCl [facility] 03611024497 100 MG Orally Active 1 tablet Once a day at bedtime Ascorbic Acid [facility] 39052908710 500 MG Orally Active 1 tablet twice a day Cialis [facility] 91230342213 20 MG Orally Aug 01Aug Active 1 tablet 2018 Thiamine [facility] 71642873988 50 MG Orally Active 2 capsules Once a day Vitamin B12 [facility] 61730749864 1000 MCG Orally Active 1 tablet Once a day Melatonin [facility] 36716176641 3 MG Orally Active 1 tablet Once a day at bedtime as needed with food Ezetimibe [facility] 54201463712 10 MG Orally Nov 15, Active 1 tablet Once a day 2018 Results Name Result Date Reference Range Unit Abnormality Flag Ct Low Dose Chest Screening Summary Purpose eClinicalWorks Submission
--- OUTSIDE RECORDS SUMMARY | 2019-09-06 20:01 | XMS REPORT ---
:1960 [facility] Address [address] [place] [address] Care Team Providers Name Role Phone Unavailable Unavailable Unavailable Problems This patient has no known problems. Allergies, Adverse Reactions, Alerts This patient has no known allergies or adverse reactions. Medications This patient has no known medications.
[2019-09-06] MEDS ORDERED: KETOROLAC 30 MG/ML INJ ONE (21:57)
[2019-09-06] MEDS ORDERED: ONDANSETRON 4 MG/2 ML VIAL ONE (21:57)
[2019-09-06] MEDS ORDERED: NA CHLORIDE 0.9% 1,000 ML ONE (21:58)
[2019-09-06 22:06] LABS: Absolute Lymphocytes (CBC) 1.7 K/uL (0.7-4.9); Basophils % 0.7 % (0-1.3); Hematocrit 36.8 % (39.6-49.0); Lymphocytes % 10.8 % (15.3-44.8); MPV 9.5 fL (7.6-11.3); RBC Red Blood Cell Count 4.16 M/uL (4.33-5.43)
[2019-09-06 22:28] LABS: Albumin 3.4 g/dL (3.4-5.0); Bilirubin Total 0.4 mg/dL (0.2-1.0); Potassium 4.2 mmol/L (3.5-5.1); Protein, Total 7.1 g/dL (6.4-8.2)
--- NOTE | 2019-09-07 00:36 | ER ---
Nurse's Notes [facility] Name: Gregory Dumont Age: 59 yrs Sex: Male : 1960 Arrival Date: 09/06/2019 Time: 20:01 Bed 17 Private MD: Diagnosis: Headache;Elevated white blood cell count Presentation: 09/06 20:42 Presenting complaint: Patient states: Patient states he has a "pain in my head", pt ae4 points to right lateral aspect of head. Pt states "if I drink a little Monster, I don't know, I have been trying to get some Flexerils because I have a lot of nerve pain.". Transition of care: patient was not received from another setting of care. Onset of symptoms was September 03, 2019. Risk Assessment: Do you want to hurt yourself or someone else? Patient reports no desire to harm self or others. Initial Sepsis Screen:. Care prior to arrival: None. 20:42 Method Of Arrival: Ambulatory ae4 20:42 Acuity: MARION 3 ae4 20:48 Initial Sepsis Screen: Does the patient meet any 2 criteria? No. Patient's initial ae4 sepsis screen is negative. 22:28 Initial Sepsis Screen: Does the patient have a suspected source of infection? No. wh Patient's initial sepsis screen is negative. Triage Assessment: 20:47 General: Appears in no apparent distress. comfortable, Behavior is cooperative, ae4 Talkative.. Pain: Complains of pain in right temporal area, right occipital area and right uatsdin Pain currently is 10 out of 10 on a pain scale. Neuro: Level of Consciousness is awake, alert, obeys commands, Oriented to person, place, situation. Respiratory: Airway is patent Respiratory effort is even, unlabored, Respiratory pattern is regular, symmetrical. Historical: - Allergies: 20:47 NKA; ae4 - Home Meds: 20:47 [place] Carbonate Oral [Active]; ae4 22:32 "sleeping pill ambersol or something like that" [Active]; wh - PMHx: 22:32 ADD/ADHD; Bipolar disorder; CVA; HEP C; HYPOGLYCEMIA; Irregular heart rate; wh - Immunization history:: Adult Immunizations up to date, Flu vaccine is not up to date. - Social history:: Smoking status: . - Ebola Screening: : Patient denies travel to an Ebola-affected area in the 21 days before illness onset No symptoms or risks identified at this time. - Family history:: not pertinent. Screenin:27 Abuse screen: Denies threats or abuse. Denies injuries from another. Nutritional wh screening: No deficits noted. Tuberculosis screening: No symptoms or risk factors identified. Fall Risk None identified. Assessment: 21:30 General: Appears in no apparent distress. Behavior is calm, cooperative, appropriate wh for age. Pain: Complains of pain in right side of the back of head Pain does not radiate. Pain currently is 5 out of 10 on a pain scale. Neuro: Level of Consciousness is awake, alert, obeys commands, Oriented to person, place, time, situation, Appropriate for age. Cardiovascular: Heart tones S1 S2. Respiratory: Airway is patent Respiratory effort is even, unlabored, Respiratory pattern is regular, symmetrical, Breath sounds are clear bilaterally. GI: Abdomen is flat, non-distended. : No signs and/or symptoms were reported regarding the genitourinary system. EENT: No signs and/or symptoms were reported regarding the EENT system. Derm: Skin is intact, is healthy with good turgor, Skin is pink, warm \\T\\ dry. normal. Musculoskeletal: Circulation, motion, and sensation intact. 22:27 Reassessment: Patient appears in no apparent distress at this time. No changes from previously documented assessment. Patient and/or family updated on plan of care and expected duration. Pain level reassessed. Patient is alert, oriented x 3, equal unlabored respirations, skin warm/dry/pink. 23:25 Reassessment: Patient appears in no apparent distress at this time. No changes from previously documented assessment. Patient and/or family updated on plan of care and expected duration. Pain level reassessed. Patient is alert, oriented x 3, equal unlabored respirations, skin warm/dry/pink. Patient states feeling better. Patient states symptoms have improved. 09/07 00:15 Reassessment: Patient appears in no apparent distress at this time. No changes from previously documented assessment. Patient and/or family updated on plan of care and expected duration. Pain level reassessed. Patient is alert, oriented x 3, equal unlabored respirations, skin warm/dry/pink. Pt sleeping well no signs of distress noted Patient states feeling better. Patient states symptoms have improved. Reassessment:. 01:12 Reassessment: Patient appears in no apparent distress at this time. No changes from previously documented assessment. Patient and/or family updated on plan of care and expected duration. Pain level reassessed. Patient is alert, oriented x 3, equal unlabored respirations, skin warm/dry/pink. PT with Discharge order just awaiting official reading for imaging. MD and Charge nurse aware Patient states feeling better. Patient states symptoms have improved. Vital Signs: 09/06 20:41 BP 136 / 85; Pulse 89; Resp 20; Temp 98.2; Pulse Ox 96% on R/A; Weight 85.28 kg (R); ae4 21:30 BP 137 / 83; Pulse 87; Resp 18; Pulse Ox 97% on R/A; 22:31 BP 130 / 83; Pulse 88; Resp 18; Pulse Ox 96% ; 23:00 BP 124 / 85; Pulse 85; Resp 18; Pulse Ox 97% on R/A; 09/07 00:00 BP 127 / 85; Pulse 77; Resp 18; Pulse Ox 94% ; 01:00 BP 117 / 76; Pulse 83; Resp 18; Pulse Ox 94% ; ED Course: 09/06 20:01 Patient arrived in ED. cl3 20:41 Arm band placed on right wrist. ae4 20:46 Triage completed. ae4 21:20 Jg Rob is Primary Nurse. 21:23 Bjorn Nuno MD is Attending Physician. foster 21:53 Inserted saline lock: 18 gauge in right antecubital area, using aseptic technique. cm6 21:55 Radiology exam delayed due to lab results not completed at this time. (BUN/Creatinine). az 22:28 Patient has correct armband on for positive identification. Bed in low position. Call light in reach. Side rails up X 1. Pulse ox on. NIBP on. 23:39 CT Head Angio In Process Unspecified. EDMS 23:39 Head Brain Wo Cont In Process Unspecified. EDMS 23:39 Chest Single View XRAY In Process Unspecified. EDMS 09/07 00:36 Tigre Romero MD is Referral Physician. foster 01:39 No provider procedures requiring assistance completed. IV discontinued, intact, bleeding controlled, No redness/swelling at site. Administered Medications: 09/06 22:05 Drug: NS 0.9% 1000 ml Route: IV; Rate: 1 bolus; Site: right antecubital; 09/07 01:41 Follow up: Response: No adverse reaction; IV Status: Completed infusion 09/06 22:07 Drug: TORadol 30 mg Route: IVP; Site: right antecubital; 09/07 00:30 Follow up: Response: No adverse reaction 09/06 22:10 Drug: Zofran 4 mg Route: IVP; Site: right antecubital; 09/07 00:30 Follow up: Response: No adverse reaction; Nausea is decreased Outcome: 00:36 Discharge ordered by . foster 01:39 Discharged to home ambulatory. 01:39 Condition: stable 01:39 Discharge instructions given to patient, Instructed on discharge instructions, follow up and referral plans. medication usage, POC Headache with no known cause Demonstrated understanding of instructions, follow-up care, medications, POC Prescriptions given X 2. 01:40 Patient left the ED. Signatures: Dispatcher [employer] EDMS Bjorn Nuno MD MD cha [place] [facility] Camila Joyner Candace cm6 Carter Alvarado RN RN ae4 Ej Forrester cl3 Corrections: (The following items were deleted from the chart) 09/06 22:31 21:30 BP 130 / 83; Pulse 88bpm; Resp 18bpm; Pulse Ox 96%; [facility]
--- NOTE | 2019-09-07 00:37 | EDPHYS ---
Physician Documentation [facility] Name: Gregory Dumont Age: 59 yrs Sex: Male : 1960 Arrival Date: 09/06/2019 Time: 20:01 Bed 17 Private MD: ED Physician Bjorn Nuno HPI: 09/06 21:48 This 59 yrs old Male presents to ER via Ambulatory with complaints of Back Of foster Head Pain. 21:48 The patient complains of pain to the right rastafari and right side of the back of head. foster The patient describes the headache as constant, waxing and waning. Onset: The symptoms/episode began/occurred 2 day(s) ago. Associated signs and symptoms: The patient has no apparent associated signs or symptoms. Severity of symptoms: At its worst the pain was moderate, in the emergency department the pain is unchanged. Headache History: Denies prior headaches. The symptoms are alleviated by nothing. the symptoms are aggravated by nothing. The patient has not experienced similar symptoms in the past. Historical: - Allergies: 20:47 NKA; ae4 - Home Meds: 20:47 [place] Carbonate Oral [Active]; ae4 22:32 "sleeping pill ambersol or something like that" [Active]; wh - PMHx: 22:32 ADD/ADHD; Bipolar disorder; CVA; HEP C; HYPOGLYCEMIA; Irregular heart rate; wh - Immunization history:: Adult Immunizations up to date, Flu vaccine is not up to date. - Social history:: Smoking status: . - Ebola Screening: : Patient denies travel to an Ebola-affected area in the 21 days before illness onset No symptoms or risks identified at this time. - Family history:: not pertinent. ROS: 21:48 Constitutional: Negative for fever, chills, and weight loss, Eyes: Negative for injury, foster pain, redness, and discharge, ENT: Negative for injury, pain, and discharge, Neck: Negative for injury, pain, and swelling, Cardiovascular: Negative for chest pain, palpitations, and edema, Respiratory: Negative for shortness of breath, cough, wheezing, and pleuritic chest pain, Abdomen/GI: Negative for abdominal pain, nausea, vomiting, diarrhea, and constipation, Back: Negative for injury and pain, : Negative for injury, bleeding, discharge, and swelling, MS/Extremity: Negative for injury and deformity, Skin: Negative for injury, rash, and discoloration, Psych: Negative for depression, anxiety, suicide ideation, homicidal ideation, and hallucinations, Allergy/Immunology: Negative for hives, rash, and allergies, Endocrine: Negative for neck swelling, polydipsia, polyuria, polyphagia, and marked weight changes, Hematologic/Lymphatic: Negative for swollen nodes, abnormal bleeding, and unusual bruising. 21:48 Neuro: Positive for headache. Exam: 21:48 Constitutional: This is a well developed, well nourished patient who is awake, alert, foster and in no acute distress. Head/Face: Normocephalic, atraumatic. Eyes: Pupils equal round and reactive to light, extra-ocular motions intact. Lids and lashes normal. Conjunctiva and sclera are non-icteric and not injected. Cornea within normal limits. Periorbital areas with no swelling, redness, or edema. ENT: Nares patent. No nasal discharge, no septal abnormalities noted. Tympanic membranes are normal and external auditory canals are clear. Oropharynx with no redness, swelling, or masses, exudates, or evidence of obstruction, uvula midline. Mucous membranes moist. Neck: Trachea midline, no thyromegaly or masses palpated, and no cervical lymphadenopathy. Supple, full range of motion without nuchal rigidity, or vertebral point tenderness. No Meningismus. Chest/axilla: Normal chest wall appearance and motion. Nontender with no deformity. No lesions are appreciated. Cardiovascular: Regular rate and rhythm with a normal S1 and S2. No gallops, murmurs, or rubs. Normal PMI, no JVD. No pulse deficits. Respiratory: Lungs have equal breath sounds bilaterally, clear to auscultation and percussion. No rales, rhonchi or wheezes noted. No increased work of breathing, no retractions or nasal flaring. Abdomen/GI: Soft, non-tender, with normal bowel sounds. No distension or tympany. No guarding or rebound. No evidence of tenderness throughout. Back: No spinal tenderness. No costovertebral tenderness. Full range of motion. Male : Normal genitalia with no discharge or lesions. Skin: Warm, dry with normal turgor. Normal color with no rashes, no lesions, and no evidence of cellulitis. MS/ Extremity: Pulses equal, no cyanosis. Neurovascular intact. Full, normal range of motion. Neuro: Awake and alert, GCS 15, oriented to person, place, time, and situation. Cranial nerves II-XII grossly intact. Motor strength 5/5 in all extremities. Sensory grossly intact. Cerebellar exam normal. Normal gait. Psych: Awake, alert, with orientation to person, place and time. Behavior, mood, and affect are within normal limits. 21:48 Neck: ROM/movement: limited range of motion, is not appreciated, Meningeal signs: are not present, Kernig's sign is negative, Brudzinski's sign is negative, nuchal rigidity, is not appreciated. Vital Signs: 20:41 BP 136 / 85; Pulse 89; Resp 20; Temp 98.2; Pulse Ox 96% on R/A; Weight 85.28 kg (R); ae4 21:30 BP 137 / 83; Pulse 87; Resp 18; Pulse Ox 97% on R/A; wh 22:31 BP 130 / 83; Pulse 88; Resp 18; Pulse Ox 96% ; 23:00 BP 124 / 85; Pulse 85; Resp 18; Pulse Ox 97% on R/A; 09/07 00:00 BP 127 / 85; Pulse 77; Resp 18; Pulse Ox 94% ; 01:00 BP 117 / 76; Pulse 83; Resp 18; Pulse Ox 94% ; MDM: 09/06 21:23 Patient medically screened. [facility] 21:50 Data reviewed: vital signs, nurses notes, lab test result(s), EKG, radiologic studies, [facility] CT scan. 09/06 21:46 Order name: CBC with Diff [facility] 09/06 21:46 Order name: Comprehensive Metabolic Panel [facility] 09/06 21:46 Order name: CBC with Automated Diff; Complete Time: 22:58 EDMN 09/06 21:46 Order name: Comprehensive Metabolic Panel; Complete Time: 22:58 EDMN 09/07 00:31 Order name: Urine Dipstick--Ancillary (enter results) ar5 09/07 00:31 Order name: Urine Dipstick-Ancillary EDMN 09/06 21:46 Order name: CT Head Angio [facility] 09/06 21:48 Order name: EKG; Complete Time: 21:48 [facility] 09/06 22:51 Order name: Head Brain Wo Cont EDMN 09/06 22:59 Order name: Chest Single View XRAY [facility] 09/06 21:46 Order name: Urine Dipstick-Ancillary (obtain specimen); Complete Time: 00:30 [facility] 09/06 21:48 Order name: EKG - Nurse/Tech; Complete Time: 22:10 [facility] Administered Medications: 22:05 Drug: NS 0.9% 1000 ml Route: IV; Rate: 1 bolus; Site: right antecubital; 09/07 01:41 Follow up: Response: No adverse reaction; IV Status: Completed infusion 09/06 22:07 Drug: TORadol 30 mg Route: IVP; Site: right antecubital; 09/07 00:30 Follow up: Response: No adverse reaction 09/06 22:10 Drug: Zofran 4 mg Route: IVP; Site: right antecubital; 09/07 00:30 Follow up: Response: No adverse reaction; Nausea is decreased Disposition: 09/07/19 00:36 Discharged to Home. Impression: Headache, Elevated white blood cell count. - Condition is Fair. - Discharge Instructions: General Headache Without Cause, General Headache Without Cause, [id number]. - Prescriptions for Fioricet with Codeine 50- 325-40-30 mg Oral capsule - take 1 capsule by ORAL route every 4 hours as needed not to exceed 6 capsules per 24hrs; 20 capsule. Zofran 4 mg Oral Tablet - take 1 tablet by ORAL route every 12 hours As needed; 20 tablet. - Medication Reconciliation Form, Thank You Letter, Antibiotic Education, Prescription Opioid Use form. - Follow up: Private Physician; When: 2 - 3 days; Reason: Recheck today's complaints, Continuance of care, Re-evaluation by your physician. Follow up: Tigre Romero; When: 2 - 3 days; Reason: Recheck today's complaints, Continuance of care, Re-evaluation by your physician. - Problem is new. - Symptoms have improved. Signatures: Dispatcher [employer] Bjorn Page MD MD cha [place], Winsy Carter Alvarado, RN RN ae4 Corrections: (The following items were deleted from the chart) 09/06 23:07 22:58 Head Brain Wo [id number].RAD.BRZ ordered. [facility] 09/07 01:40 00:36 09/07/2019 00:36 Discharged to Home. Impression: Headache; Elevated white blood wh cell count. Condition is Fair. Discharge Instructions: General Headache Without Cause, General Headache Without Cause, [id number]. Prescriptions for Fioricet with Codeine 69-711-90-30 mg Oral capsule - take 1 capsule by ORAL route every 4 hours as needed not to exceed 6 capsules per 24hrs; 20 capsule, Zofran 4 mg Oral Tablet - take 1 tablet by ORAL route every 12 hours As needed; 20 tablet. and Forms are Medication Reconciliation Form, Thank You Letter, Antibiotic Education, Prescription Opioid Use. Follow up: Private Physician; When: 2 - 3 days; Reason: Recheck today's complaints, Continuance of care, Re-evaluation by your physician. Follow up: Tigre Romero; When: 2 - 3 days; Reason: Recheck today's complaints, Continuance of care, Re-evaluation by your physician. Problem is new. Symptoms have improved. foster
[2019-09-07 00:38] LABS: Urine Blood NEGATIVE (NEG); Urine Glucose NEGATIVE (NEG); Urine Protein NEGATIVE (NEG)
[2019-09-07 02:22] VITALS: TEMP 98.2
[2019-09-07 02:28] VITALS: O2SAT 94
[2019-09-07 02:29] VITALS: BP 117/76
--- NOTE | 2019-09-07 08:12 | RAD REPORT ---
EXAM DESCRIPTION: [place] Single View09/06/2019 11:38 pm CLINICAL HISTORY: Cough COMPARISON: July 2019 FINDINGS: The lungs appear clear of acute infiltrate. The heart is normal size The aortic arch/proximal descending thoracic aorta is tortuous/ectatic. Follow-up chest x-ray in 6 mo nths recommended for re-evaluation
--- NOTE | 2019-09-07 10:49 | RAD REPORT ---
EXAM DESCRIPTION: CT - Head angio - 09/07/2019 1:39 am CLINICAL HISTORY: PAIN COMPARISON: None Available. TECHNIQUE: Multiple helical axial tomographic images were obtained of the head without intravenous c ontrast. Subsequent axial images were obtained of the head following administration intravenous contr ast per angiographic protocol. Coronal and sagittal reformatted images were obtained. This exam was p erformed according to our departmental dose-optimization program, which includes automated exposure c ontrol, adjustment of the mA and/or kV according to patient size and/or use of iterative reconstructi on technique. FINDINGS: There is no acute intracranial hemorrhage. No mass. No midline shift. No ventriculomegaly. Duran-white matter differentiation is maintained. Small focal hypodensity in the left cerebellum may represent an old lacunar infarct. Small amount of hypodensity in the periventricular white matter is present which can be seen with chronic microvascular ischemic changes. Mild atherosclerotic disease involving the intracranial segments of the bilateral internal carotid ar teries is demonstrated without significant stenosis or occlusion. Bilateral anterior and middle cereb ral arteries appear patent without significant stenosis or occlusion. Intracranial segments of the bi lateral vertebral arteries, basilar artery, and bilateral posterior cerebral arteries appear patent w ithout significant stenosis or occlusion. No evidence of intracranial aneurysm. Major dural venous si nuses appear patent. Paranasal sinuses are clear. Mastoid air cells and middle ear spaces are clear. Orbits and orbital co ntents are unremarkable. Osseous structures are unremarkable. Surrounding soft tissues are unremarkable. IMPRESSION: 1. No evidence of an acute intracranial mass, hemorrhage, or large territorial type infa rct. 2. Unremarkable head CTA. Electronically signed by: Errol Lopez MD 09/07/2019 1:14 AM PERFORMANCE IMPROVEMENT SPECIALIST Due to temporary technical issues with the PACS/Fluency reporting system, reports are being signed by the in house radiologist as a courtesy to ensure prompt reporting. The interpreting radiologist is f ully responsible for the content of the report
--- NOTE | 2019-09-07 11:34 | RAD REPORT ---
EXAM DESCRIPTION: CT - Head Brain Wo Cont - 09/07/2019 1:30 am CLINICAL HISTORY: PAIN COMPARISON: None Available. TECHNIQUE: Multiple helical axial tomographic images were obtained of the head without intravenous c ontrast. Subsequent axial images were obtained of the head following administration intravenous contr ast per angiographic protocol. Coronal and sagittal reformatted images were obtained. This exam was p erformed according to our departmental dose- FINDINGS: There is no acute intracranial hemorrhage. No mass. No midline shift. No ventriculomegaly. Duran-white matter differentiation is maintained. Small focal hypodensity in the left cerebellum may represent an old lacunar infarct. Small amount of hypodensity in the periventricular white matter is present which can be seen with chronic microvascular ischemic changes. Mild atherosclerotic disease involving the intracranial segments of the bilateral internal carotid ar teries is demonstrated without significant stenosis or occlusion. Bilateral anterior and middle cereb ral arteries appear patent without significant stenosis or occlusion. Intracranial segments of the bi lateral vertebral arteries, basilar artery, and bilateral posterior cerebral arteries appear patent w ithout significant stenosis or occlusion. No evidence of intracranial aneurysm. Major dural venous si nuses appear patent. Paranasal sinuses are clear. Mastoid air cells and middle ear spaces are clear. Orbits and orbital co ntents are unremarkable. Osseous structures are unremarkable. Surrounding soft tissues are unremarkable. IMPRESSION: 1. No evidence of an acute intracranial mass, hemorrhage, or large territorial type infa rct. 2. Unremarkable head CTA. Electronically signed by: Errol Lopez MD 09/07/2019 1:14 AM COILER Due to temporary technical issues with the PACS/Fluency reporting system, reports are being signed by the in house radiologist as a courtesy to ensure prompt reporting. The interpreting radiologist is f lannyly responsible for the content of the report.
--- NOTE | 2019-09-07 11:58 | EKG ---
Test Date: 2019-09-06 Test Time: 22:05:52 Cover Machine Operator: EDITA MEASUREMENT RESULTS: Intervals: Rate: 82 UT: 132 QRSD: 100 QT: 374 QTc: 436 Adrian: P: 53 UT: 132 QRS: 59 T: 33 INTERPRETIVE STATEMENTS: Normal sinus rhythm Normal ECG Compared to ECG 04/21/2019 19:30:47 No significant changes Electronically Signed On 09-07-19 11:56:44 OIL AND GAS FIELD TECHNICIAN by Hoang Burns
== END 2019-09-07 01:40 | disposition home or self-care (01) ==
LOC: ER 19:59
DX: D72.829 Elevated white blood cell count, unspecified (principal); F90.9 Attention-deficit hyperactivity disorder, unspecified type; F31.9 Bipolar disorder, unspecified
CPT/HCPCS: 96361; 93005; 85025; 36415; 81003; 80053; 70450; 70496; 71045; 96375; 96374; 99284; Q9967; J7030; J2405

== ENCOUNTER 2019-09-20 13:00 | Emergency (ER) | payer OTHER ==
--- OUTSIDE RECORDS SUMMARY | 2019-09-20 13:03 | XMS REPORT ---
:1960 [facility] Address [address] [place] [address] Care Team Providers Name Role Phone Unavailable Unavailable Unavailable Problems This patient has no known problems. Allergies, Adverse Reactions, Alerts This patient has no known allergies or adverse reactions. Medications This patient has no known medications.
--- OUTSIDE RECORDS SUMMARY | 2019-09-20 13:03 | XMS REPORT ---
[...] Status Dosage System Date Date Albuterol Sulfate [facility] 14665859600 108 (90 Base) Aug 01, 2 puffs HFA MCG/ACT 2018 Inhalation every 6 hours prn sob Incruse Ellipta [facility] 70459379136 62.5 MCG/INH Aug 01April Active 1 puff Inhalation Once 2018 12, a day 2019 blood glucose ND 0 n/s SC once a January Active one test strip 2018 Alcohol Prep Pads ND 0 topical once a January Active as day , directed 2018 2018 Lithobid [facility] 41220449106 300 MG Orally Active 1 tablet twice a day Seroquel ND 47164559029 400 MG Orally Dec 14, Active 1 tablet Once a day at 2017 bedtime Sildenafil ND 81955322401 100 MG Orally Oct Inactive 1 tablet Citrate Once a day 2018 Atorvastatin [facility] 26138629224 20 MG Orally Active 1 tablet Calcium Once a day Fish Oil [facility] 21002767045 1000 MG Orally Active 1 capsule Once a day Super B-Complex [facility] 73860361053 - Orally once a Active as day directed D3 Maximum [facility] 20027387433 5000 UNIT Active 1 capsule Strength Orally Once a day Memantine HCl [facility] 63180464270 10 MG Orally Active 1 tablet Twice a day Atorvastatin [facility] 59297782596 40 MG Orally Active 1 tablet Calcium Once a day Vitamin B12 [facility] 45865114989 1000 MCG Orally Active 1 tablet Once a day Cyanocobalamin [facility] 78960414488 2500 MCG Active as Sublingual once directed a day Co-Enzyme Q-10 [facility] 87911466605 100 MG Orally Active 2 capsule Once a day with a meal Zetia [facility] 85148818995 10 MG Orally Active 1 tablet Once a day Lancets Super NDC 0 n/s finger January Active one Thin stick once 2018 Diclofenac Sodium [facility] 72145302421 75 MG Orally Active 1 tablet Twice a day prn with food pain or milk Trazodone HCl [facility] 51990017834 100 MG Orally Active 1 tablet Once a day at bedtime Ascorbic Acid [facility] 80221447530 500 MG Orally Active 1 tablet twice a day Cialis [facility] 92602794992 20 MG Orally Aug 01Aug Active 1 tablet 2018 Thiamine [facility] 24133178085 50 MG Orally Active 2 capsules Once a day Vitamin B12 [facility] 61165709311 1000 MCG Orally Active 1 tablet Once a day Melatonin [facility] 32736789417 3 MG Orally Active 1 tablet Once a day at bedtime as needed with food Ezetimibe [facility] 86173951064 10 MG Orally Nov 15, Active 1 tablet Once a day 2018 Results Name Result Date Reference Range Unit Abnormality Flag Ct Low Dose Chest Screening Summary Purpose eClinicalWorks Submission
--- OUTSIDE RECORDS SUMMARY | 2019-09-20 13:03 | XMS REPORT ---
:1960 Author Organization eClinicalWorks Care Team Providers Name Role Phone Gomes, Na Provider Role Unavailable Allergies, Adverse Reactions, Alerts Substance Reaction Event Type N.K.D.A. Info Not Available Non Drug Allergy Problems Problem Type Condition Code Onset Dates Condition Status Assessment 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 Assessment Primary stabbing headache G44.85 Active Problem Paresthesia of skin R20.2 Active Assessment Diverticulitis K57.92 Active Problem Encounter for tobacco use cessation Z71.6 Active counseling Problem Mild memory disturbance R41.3 Active Problem Dementia in other diseases F02.80 Active classified elsewhere without behavioral disturbance Problem Alzheimer''s disease, unspecified G30.9 Active Problem Nicotine dependence, cigarettes, F17.210 Active uncomplicated Problem Simple chronic bronchitis J41.0 Active Problem Irritability and anger R45.4 Active Problem Smoker F17.200 Active Problem 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 Problem Elevated blood pressure reading R03.0 Active without diagnosis of hypertension Problem Otalgia of left ear H92.02 Active Problem Hypoglycemia E16.2 Active Problem Erectile dysfunction, unspecified N52.9 Active erectile dysfunction type Problem Impacted cerumen of left ear H61.22 Active Problem Arthritis M19.90 Active Problem Essential hypertension I10 Active Problem Folliculitis L73.9 Active Problem Bipolar 1 disorder F31.9 Active Problem Mixed hyperlipidemia E78.2 Active Problem Primary osteoarthritis involving M15.0 Active multiple joints Problem Other chronic pain G89.29 Active Problem Pure hypercholesterolemia E78.00 Active Medications Medication Code Code Instructions Start End Status Dosage System Date Date Cipro [facility] 58915604945 500 MG Orally Nov Active 1 tablet every 12 hrs 2018 Metronidazole ND 74677375976 500 MG Orally Nov Active 1 tablet every 6 hours [address] [facility] 88149893706 300 MG Orally Active 1 tablet twice a day Atorvastatin ND 06934046803 20 MG Orally Active 1 tablet Calcium Once a day Co-Enzyme Q-10 ND 26687176357 100 MG Orally Active 2 capsule Once a day with a meal Melatonin [facility] 97985631295 3 MG Orally Active 1 tablet Once a day at bedtime as needed with food Cyanocobalamin [facility] 84608107131 2500 MCG Active as Sublingual once directed a day Memantine HCl ND 54518671885 10 MG Orally Active 1 tablet Twice a day Trazodone HCl [facility] 59510836910 100 MG Orally Active 1 tablet Once a day at bedtime Atorvastatin [facility] 04371358587 40 MG Orally Active 1 tablet Calcium Once a day Fish Oil ND 48219051525 1000 MG Orally Active 1 capsule Once a day Ranitidine HCl [facility] 93580683855 150 MG Active TAKE 1 TABLET BY MOUTH TWICE A DAY Thiamine [facility] 53483542083 50 MG Orally Active 2 capsules Once a day Super B-Complex [facility] 83885425563 - Orally once a Active as day directed Ezetimibe ND 13858830777 10 MG Orally Nov 15, Active 1 tablet Once a day 2018 D3 Maximum [facility] 61666764991 5000 UNIT Active 1 capsule Strength Orally Once a day Cyclobenzaprine ND 93548849141 10 MG Orally Sep 06Sep Active 1 tablet HCl once a day at 2018 11, as needed bedtime 2018 Ascorbic Acid [facility] 82799825041 500 MG Orally Active 1 tablet twice a day Lancets Super Thin NDC 0 n/s finger January Active one stick once 2018 Vitamin B12 [facility] 38056491324 1000 MCG Orally Active 1 tablet Once a day Albuterol Sulfate [facility] 78300358318 108 (90 Base) Aug 01, Active 2 puffs HFA MCG/ACT 2018 Inhalation every 6 hours prn sob Seroquel ND 90215941762 400 MG Orally Dec 14, Active 1 tablet Once a day at 2018 bedtime blood glucose test NDC 0 n/s SC once a January Active one strip day 2018 Diclofenac Sodium [facility] 58275482082 75 MG Orally Active 1 tablet Twice a day prn with food pain or milk Zetia [facility] 28611771296 10 MG Orally Active 1 tablet Once a day Vitamin B12 [facility] 83548535897 1000 MCG Orally Active 1 tablet Once a day Incruse Ellipta [facility] 26237823449 62.5 MCG/INH Aug 01April Active 1 puff Inhalation Once 2019 12, a day 2020 Results No Known Results Summary Purpose eClinicalWorks Submission
[2019-09-20] MEDS ORDERED: NA CHLORIDE 0.9% 1,000 ML ONE (13:42)
[2019-09-20 13:49] LABS: Absolute Lymphocytes (CBC) 1.8 K/uL (0.7-4.9); Basophils % 1.1 % (0-1.3); Hematocrit 42.4 % (39.6-49.0); Lymphocytes % 15.4 % (15.3-44.8); MPV 8.7 fL (7.6-11.3); RBC Red Blood Cell Count 4.74 M/uL (4.33-5.43)
[2019-09-20 14:14] LABS: ALT/SGPT 28 U/L (12-78); AST/SGOT 19 U/L (15-37); Albumin 3.8 g/dL (3.4-5.0); Alkaline Phosphatase 75 U/L (45-117); BUN Blood Urea Nitrogen 14 mg/dL (7-18); Bicarbonate 22 mmol/L (21-32); Bilirubin Direct < 0.1 mg/dL (0-0.2); Bilirubin Total 0.3 mg/dL (0.2-1.0); Glucose Level 99 mg/dL (74-106); Lipase 531 U/L (73-393); Potassium 4.2 mmol/L (3.5-5.1); Protein, Total 7.3 g/dL (6.4-8.2); Sodium Level 140 mmol/L (136-145)
--- NOTE | 2019-09-20 15:49 | ER ---
Nurse's Notes [facility] Name: Gregory Dumont Age: 59 yrs Sex: Male : 1960 Arrival Date: 09/20/2019 Time: 13:02 Bed 17 Private MD: Lucy Gomes Diagnosis: Nausea and vomiting Presentation: 09/20 13:18 Presenting complaint: Patient states: Ate some old chocolate last night and reports N/V jl7 since this morning, weak, denies diarrhea. Transition of care: patient was not received from another setting of care. Onset of symptoms was September 20, 2019. Risk Assessment: Do you want to hurt yourself or someone else?. Initial Sepsis Screen: Does the patient meet any 2 criteria? No. Patient's initial sepsis screen is negative. Does the patient have a suspected source of infection? No. Patient's initial sepsis screen is negative. Care prior to arrival: None. 13:18 Method Of Arrival: Ambulatory [facility] 13:18 Acuity: MARION 3 jl7 Historical: - Allergies: 13:22 NKA; jl7 - Home Meds: 13:22 [place] Carbonate Oral [Active]; venlafaxine oral oral [Active]; jl7 - PMHx: 13:22 ADD/ADHD; Bipolar disorder; CVA; HEP C; HYPOGLYCEMIA; Irregular heart rate; jl7 - PSHx: 13:22 Knee surgery; jl7 - Immunization history:: Adult Immunizations not up to date. - Social history:: Smoking status: Patient uses tobacco products, denies chronic smoking, but will smoke occasionally. - Ebola Screening: : No symptoms or risks identified at this time. Screenin:30 Abuse screen: Denies threats or abuse. Denies injuries from another. Nutritional ca1 screening: No deficits noted. Tuberculosis screening: No symptoms or risk factors identified. Fall Risk IV access (20 points). Assessment: 13:30 General: Appears in no apparent distress. comfortable, Behavior is calm, cooperative, ca1 appropriate for age. Pain: Denies pain. Neuro: Level of Consciousness is awake, alert, obeys commands, Oriented to person, place, time, situation. Cardiovascular: Heart tones S1 S2 present Capillary refill < 3 seconds Patient's skin is warm and dry. Respiratory: Airway is patent Respiratory effort is even, unlabored, Respiratory pattern is regular, symmetrical, Breath sounds are clear bilaterally. GI: Abdomen is round non-distended, Bowel sounds present X 4 quads. Abd is soft and non tender X 4 quads. Reports nausea, vomiting. : No deficits noted. No signs and/or symptoms were reported regarding the genitourinary system. EENT: No deficits noted. No signs and/or symptoms were reported regarding the EENT system. Derm: Skin is intact, is healthy with good turgor, Skin is pink, warm \T\ dry. Musculoskeletal: Circulation, motion, and sensation intact. Capillary refill < 3 seconds, Range of motion: intact in all extremities. 14:32 Reassessment: Patient appears in no apparent distress at this time. Patient is alert, ca1 oriented x 3, equal unlabored respirations, skin warm/dry/pink. 15:36 Reassessment: Patient appears in no apparent distress at this time. Patient is alert, ca1 oriented x 3, equal unlabored respirations, skin warm/dry/pink. Vital Signs: 13:22 BP 114 / 78; Pulse 81; Resp 16; Temp 97.7(O); Pulse Ox 97% on R/A; Weight 86.18 kg (R); jl7 Height 5 ft. 11 in. (180.34 cm) (R); Pain 0/10; 14:01 BP 118 / 83; Pulse 64; Resp 16 S; Pulse Ox 97% on R/A; ca1 14:53 BP 116 / 85; Pulse 56; Pulse Ox 98% on R/A; jb1 15:52 BP 117 / 84; Pulse 61; Resp 17 S; Pulse Ox 98% on R/A; ca1 13:22 Body Mass Index 26.50 (86.18 kg, 180.34 cm) jl7 ED Course: 13:02 Patient arrived in ED. ag5 13:02 Lucy Gomes MD is Private Physician. ag5 13:20 Triage completed. jl7 13:22 Arm band placed on right wrist. jl7 13:25 Zane Gonzalez PA is PHCP. jr8 13:25 Cameron Avery MD is Attending Physician. jr8 13:27 Phoebe Etienne, NIKI is Primary Nurse. ca1 13:30 No provider procedures requiring assistance completed. ca1 13:39 Initial lab(s) drawn, by me, sent to lab. Inserted saline lock: 20 gauge in right jp3 antecubital area, using aseptic technique. Blood collected. Patient maintains SpO2 saturation greater than 95% on room air. 13:40 Bed in low position. Call light in reach. Side rails up X 1. Warm blanket given. Verbal jp3 reassurance given. Pulse ox on. NIBP on. 15:46 Lucy Gomes MD is Referral Physician. jr8 15:57 IV discontinued, intact, bleeding controlled, No redness/swelling at site. Pressure ca1 dressing applied. Administered Medications: 13:44 Drug: NS 0.9% 1000 ml Route: IV; Rate: 1000 ml; Site: right antecubital; ca1 15:53 Follow up: Response: No adverse reaction; IV Status: Completed infusion; IV Intake: ca1 1000ml Intake: 15:53 IV: 1000ml; Total: 1000ml. ca1 Outcome: 15:48 Discharge ordered by MD. jr8 15:57 Discharged to home ambulatory. ca1 15:57 Condition: stable 15:57 Discharge instructions given to patient, Instructed on discharge instructions, follow up and referral plans. medication usage, Demonstrated understanding of instructions, follow-up care, medications, Prescriptions given X 1. 15:58 Patient left the ED. ca1 Signatures: Pablo Bethea1 Zane Gonzalez PA PA jr8 Sherman Brown RN RN jl7 Jc Mae jp3 Phoebe Etienne RN RN ca1 Aurelia Booker ag5 Corrections: (The following items were deleted from the chart) 15:52 15:36 BP 117 / 84; Pulse 61bpm; Resp 17bpm; Spontaneous; Pulse Ox 98% RA; ca1 ca1
--- NOTE | 2019-09-20 15:49 | EDPHYS ---
Physician Documentation [facility] Name: Gregory Dumont Age: 59 yrs Sex: Male : 1960 Arrival Date: 09/20/2019 Time: 13:02 Bed 17 Private MD: Lucy Gomes ED Physician Cameron Avery HPI: 09/20 15:45 This 59 yrs old Male presents to ER via Ambulatory with complaints of jr8 Nausea/Vomiting, General Weakness. 15:45 The patient presents to the emergency department with nausea, vomiting. Onset: The jr8 symptoms/episode began/occurred acutely, today. Possible causes: bad food exposure. The symptoms are aggravated by nothing. The symptoms are alleviated by nothing. Associated signs and symptoms: The patient has no apparent associated signs or symptoms. Severity of symptoms: At their worst the symptoms were mild in the emergency department the symptoms are unchanged. The patient has not experienced similar symptoms in the past. The patient has not recently seen a physician. Historical: - Allergies: 13:22 NKA; jl7 - Home Meds: 13:22 [place] Carbonate Oral [Active]; venlafaxine oral oral [Active]; jl7 - PMHx: 13:22 ADD/ADHD; Bipolar disorder; CVA; HEP C; HYPOGLYCEMIA; Irregular heart rate; jl7 - PSHx: 13:22 Knee surgery; jl7 - Immunization history:: Adult Immunizations not up to date. - Social history:: Smoking status: Patient uses tobacco products, denies chronic smoking, but will smoke occasionally. - Ebola Screening: : No symptoms or risks identified at this time. ROS: 15:45 Eyes: Negative for injury, pain, redness, and discharge, ENT: Negative for injury, jr8 pain, and discharge, Neck: Negative for injury, pain, and swelling, Cardiovascular: Negative for chest pain, palpitations, and edema, Respiratory: Negative for shortness of breath, cough, wheezing, and pleuritic chest pain, Back: Negative for injury and pain, MS/Extremity: Negative for injury and deformity, Skin: Negative for injury, rash, and discoloration, Neuro: Negative for headache, weakness, numbness, tingling, and seizure. 15:45 Abdomen/GI: Positive for nausea and vomiting, Negative for abdominal pain, diarrhea, abdominal distension, anorexia, dysphagia, hematemesis, black/tarry stool, rectal pain, rectal bleeding, bowel incontinence, flatulence. Exam: 15:45 Eyes: Pupils equal round and reactive to light, extra-ocular motions intact. Lids and jr8 lashes normal. Conjunctiva and sclera are non-icteric and not injected. Cornea within normal limits. Periorbital areas with no swelling, redness, or edema. ENT: Nares patent. No nasal discharge, no septal abnormalities noted. Tympanic membranes are normal and external auditory canals are clear. Oropharynx with no redness, swelling, or masses, exudates, or evidence of obstruction, uvula midline. Mucous membranes moist. Neck: Trachea midline, no thyromegaly or masses palpated, and no cervical lymphadenopathy. Supple, full range of motion without nuchal rigidity, or vertebral point tenderness. No Meningismus. Cardiovascular: Regular rate and rhythm with a normal S1 and S2. No gallops, murmurs, or rubs. Normal PMI, no JVD. No pulse deficits. Respiratory: Lungs have equal breath sounds bilaterally, clear to auscultation and percussion. No rales, rhonchi or wheezes noted. No increased work of breathing, no retractions or nasal flaring. Abdomen/GI: Soft, non-tender, with normal bowel sounds. No distension or tympany. No guarding or rebound. No evidence of tenderness throughout. Back: No spinal tenderness. No costovertebral tenderness. Full range of motion. Skin: Warm, dry with normal turgor. Normal color with no rashes, no lesions, and no evidence of cellulitis. MS/ Extremity: Pulses equal, no cyanosis. Neurovascular intact. Full, normal range of motion. Neuro: Awake and alert, GCS 15, oriented to person, place, time, and situation. Cranial nerves II-XII grossly intact. Motor strength 5/5 in all extremities. Sensory grossly intact. Cerebellar exam normal. Normal gait. Vital Signs: 13:22 BP 114 / 78; Pulse 81; Resp 16; Temp 97.7(O); Pulse Ox 97% on R/A; Weight 86.18 kg (R); jl7 Height 5 ft. 11 in. (180.34 cm) (R); Pain 0/10; 14:01 BP 118 / 83; Pulse 64; Resp 16 S; Pulse Ox 97% on R/A; ca1 14:53 BP 116 / 85; Pulse 56; Pulse Ox 98% on R/A; jb1 15:52 BP 117 / 84; Pulse 61; Resp 17 S; Pulse Ox 98% on R/A; ca1 13:22 Body Mass Index 26.50 (86.18 kg, 180.34 cm) jl7 MDM: 13:25 Patient medically screened. jr8 15:46 Data reviewed: vital signs, nurses notes, lab test result(s), and as a result, I will jr8 discharge patient. Data interpreted: Pulse oximetry: on room air is 98 %. Interpretation: normal. Counseling: I had a detailed discussion with the patient and/or guardian regarding: the historical points, exam findings, and any diagnostic results supporting the discharge/admit diagnosis, lab results, the need for outpatient follow up, a family practitioner, to return to the emergency department if symptoms worsen or persist or if there are any questions or concerns that arise at home. Response to treatment: the patient's symptoms have markedly improved after treatment. 09/20 13:25 Order name: Basic Metabolic Panel; Complete Time: 14:52 8 09/20 13:25 Order name: CBC with Diff; Complete Time: 14:03 8 09/20 13:25 Order name: Creatinine for Radiology; Complete Time: 14:52 jr8 09/20 13:25 Order name: Hepatic Function; Complete Time: 14:52 8 09/20 13:25 Order name: Lipase; Complete Time: 14:52 jr8 09/20 13:25 Order name: IV Saline Lock; Complete Time: 13:39 8 09/20 13:25 Order name: Labs collected and sent; Complete Time: 13:39 jr8 Administered Medications: 13:44 Drug: NS 0.9% 1000 ml Route: IV; Rate: 1000 ml; Site: right antecubital; ca1 15:53 Follow up: Response: No adverse reaction; IV Status: Completed infusion; IV Intake: ca1 1000ml Disposition: 17:21 Co-signature as Attending Physician, Cameron Avery MD. rn Disposition: 09/20/19 15:48 Discharged to Home. Impression: Nausea and vomiting. - Condition is Stable. - Discharge Instructions: Nausea and Vomiting, Adult. - Prescriptions for Zofran 4 mg Oral Tablet - take 1 tablet by ORAL route every 12 hours As needed; 20 tablet. - Medication Reconciliation Form, Thank You Letter, Antibiotic Education, Prescription Opioid Use form. - Follow up: Lucy Gomes MD; When: 2 - 3 days; Reason: Recheck today's complaints, Continuance of care, Re-evaluation by your physician. - Problem is new. - Symptoms have improved. Signatures: Dispatcher [employer] EDMS Cameron Avery MD MD rn Roszak, Josh, PA PA jr8 Sherman Brown RN RN jl7 Phoebe Etienne RN RN ca1 Corrections: (The following items were deleted from the chart) 15:58 15:48 09/20/2019 15:48 Discharged to Home. Impression: Nausea and vomiting. Condition ca1 is Stable. Forms are Medication Reconciliation Form, Thank You Letter, Antibiotic Education, Prescription Opioid Use. Follow up: Lucy Gomes; When: 2 - 3 days; Reason: Recheck today's complaints, Continuance of care, Re-evaluation by your physician. Problem is new. Symptoms have improved. jr8
[2019-09-20 16:15] VITALS: TEMP 97.7
[2019-09-20 16:16] VITALS: O2SAT 98
[2019-09-20 16:17] VITALS: BP 117/84
== END 2019-09-20 15:58 | disposition home or self-care (01) ==
LOC: ER 13:00
DX: R11.2 Nausea with vomiting, unspecified (principal); F31.9 Bipolar disorder, unspecified; F90.9 Attention-deficit hyperactivity disorder, unspecified type; Z72.0 Tobacco use
CPT/HCPCS: 96361; 85025; 80048; 36415; 80076; 83690; 96360; 99284; J7030

== ENCOUNTER 2019-09-29 21:45 | Emergency (ER) | payer OTHER ==
--- OUTSIDE RECORDS SUMMARY | 2019-09-29 21:47 | XMS REPORT ---
:1960 Author Organization [facility] Address [address] [place] [address] Care Team Providers Name Role Phone Unavailable Unavailable Unavailable Problems This patient has no known problems. Allergies, Adverse Reactions, Alerts This patient has no known allergies or adverse reactions. Medications This patient has no known medications.
--- OUTSIDE RECORDS SUMMARY | 2019-09-29 21:48 | XMS REPORT ---
[...] Status Dosage System Date Date Albuterol Sulfate [facility] 94373959610 108 (90 Base) Aug 01, 2 puffs HFA MCG/ACT 2018 Inhalation every 6 hours prn sob Incruse Ellipta [facility] 38807140533 62.5 MCG/INH Aug 01April Active 1 puff Inhalation Once 2018 12, a day 2019 blood glucose ND 0 n/s SC once a January Active one test strip 2018 Alcohol Prep Pads ND 0 topical once a January Active as day , directed 2018 [address] [facility] 88060863693 300 MG Orally Active 1 tablet twice a day Seroquel ND 46249803618 400 MG Orally Dec 14, Active 1 tablet Once a day at 2017 bedtime Sildenafil ND 34515250684 100 MG Orally Oct Inactive 1 tablet Citrate Once a day [address] [facility] 42055652936 20 MG Orally Active 1 tablet Calcium Once a day Fish Oil [facility] 86661733067 1000 MG Orally Active 1 capsule Once a day Super B-Complex [facility] 92664478738 - Orally once a Active as day directed D3 Maximum [facility] 84151835685 5000 UNIT Active 1 capsule Strength Orally Once a day Memantine HCl [facility] 21126976806 10 MG Orally Active 1 tablet Twice a day Atorvastatin [facility] 51448454909 40 MG Orally Active 1 tablet Calcium Once a day Vitamin B12 [facility] 65418680679 1000 MCG Orally Active 1 tablet Once a day Cyanocobalamin [facility] 72386063203 2500 MCG Active as Sublingual once directed a day Co-Enzyme Q-[address] [facility] 76554832828 100 MG Orally Active 2 capsule Once a day with a meal Zetia [facility] 05450555214 10 MG Orally Active 1 tablet Once a day Lancets Super NDC 0 n/s finger January Active one Thin stick once [address] [facility] 95144758564 75 MG Orally Active 1 tablet Twice a day prn with food pain or milk Trazodone HCl [facility] 39092315410 100 MG Orally Active 1 tablet Once a day at bedtime Ascorbic Acid [facility] 18431441398 500 MG Orally Active 1 tablet twice a day Cialis [facility] 77174780686 20 MG Orally Aug 01Aug Active 1 tablet [address] [facility] 10657344625 50 MG Orally Active 2 capsules Once a day Vitamin B12 [facility] 11344877219 1000 MCG Orally Active 1 tablet Once a day Melatonin [facility] 67936649123 3 MG Orally Active 1 tablet Once a day at bedtime as needed with food Ezetimibe [facility] 68702547977 10 MG Orally Nov 15, Active 1 tablet Once a day 2018 Results Name Result Date Reference Range Unit Abnormality Flag Ct Low Dose Chest Screening Summary Purpose eClinicalWorks Submission
--- OUTSIDE RECORDS SUMMARY | 2019-09-29 21:48 | XMS REPORT ---
[...] [facility] 23221565569 500 MG Orally Nov Active 1 tablet every 12 hrs 2018 Metronidazole ND 55585477009 500 MG Orally Nov Active 1 tablet every 6 hours [address] [facility] 42237593128 300 MG Orally Active 1 tablet twice a day Atorvastatin ND 13676506188 20 MG Orally Active 1 tablet Calcium Once a day Co-Enzyme Q-10 ND 25144121133 100 MG Orally Active 2 capsule Once a day with a meal Melatonin [facility] 05141841642 3 MG Orally Active 1 tablet Once a day at bedtime as needed with food Cyanocobalamin [facility] 01729171097 2500 MCG Active as Sublingual once directed a day Memantine HCl ND 86042893675 10 MG Orally Active 1 tablet Twice a day Trazodone HCl [facility] 55931218950 100 MG Orally Active 1 tablet Once a day at bedtime Atorvastatin [facility] 73028115358 40 MG Orally Active 1 tablet Calcium Once a day Fish Oil ND 04449091478 1000 MG Orally Active 1 capsule Once a day Ranitidine HCl [facility] 58834770609 150 MG Active TAKE 1 TABLET BY MOUTH TWICE A DAY Thiamine [facility] 17586273323 50 MG Orally Active 2 capsules Once a day Super B-Complex [facility] 10295510392 - Orally once a Active as day directed Ezetimibe ND 56176549156 10 MG Orally Nov 15, Active 1 tablet Once a day 2018 D3 Maximum [facility] 71951970365 5000 UNIT Active 1 capsule Strength Orally Once a day Cyclobenzaprine ND 37549214394 10 MG Orally Sep 06Sep Active 1 tablet HCl once a day at 2018 11, as needed bedtime 2018 Ascorbic Acid [facility] 17224672645 500 MG Orally Active 1 tablet twice a day Lancets Super Thin NDC 0 n/s finger January Active one stick once 2018 Vitamin B12 [facility] 58249013907 1000 MCG Orally Active 1 tablet Once a day Albuterol Sulfate [facility] 16331559274 108 (90 Base) Aug 01, Active 2 puffs HFA MCG/ACT 2018 Inhalation every 6 hours prn sob Seroquel ND 14353922773 400 MG Orally Dec 14, Active 1 tablet Once a day at 2018 bedtime blood glucose test NDC 0 n/s SC once a January Active one strip day 2018 Diclofenac Sodium [facility] 92042754164 75 MG Orally Active 1 tablet Twice a day prn with food pain or milk Zetia [facility] 85468298023 10 MG Orally Active 1 tablet Once a day Vitamin B12 [facility] 18950256232 1000 MCG Orally Active 1 tablet Once a day Incruse Ellipta [facility] 50980124895 62.5 MCG/INH Aug 01April Active 1 puff Inhalation Once 2019 12, a day 2020 Results No Known Results Summary Purpose eClinicalWorks Submission
--- OUTSIDE RECORDS SUMMARY | 2019-09-29 21:48 | XMS REPORT ---
:1960 Author Organization eClinicalWorks Care Team Providers Name Role Phone Gomes, Na Provider Role Unavailable Allergies No Known Allergies Problems Problem Type Condition Code Onset Dates Condition Status Problem Mild memory disturbance R41.3 Active Problem Dementia in other diseases F02.80 Active classified elsewhere without behavioral disturbance Problem Alzheimer''s disease, unspecified G30.9 Active Problem Nicotine dependence, cigarettes, F17.210 Active uncomplicated Problem Irritability and anger R45.4 Active Problem Simple chronic bronchitis J41.0 Active Problem Smoker F17.200 Active Problem Elevated blood pressure reading R03.0 Active without diagnosis of hypertension Problem 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 Problem Otalgia of left ear H92.02 Active [...] Active Problem Pure hypercholesterolemia E78.00 Active Problem Encounter for tobacco use cessation Z71.6 Active counseling Medications No Known Medications Results No Known Results Summary Purpose eClinicalWorks Submission
[2019-09-29] MEDS ORDERED: LIDOCAINE VISCOUS 2% SOLN 15 ML UDC ONE (22:00)
[2019-09-29] MEDS ORDERED: MAGNE/ALUM HYDROXD 30 ML UCUP ONE (22:00)
[2019-09-29] MEDS ORDERED: NA CHLORIDE 0.9% 500 ML ONE (22:00)
[2019-09-29] MEDS ORDERED: ONDANSETRON 4 MG/2 ML VIAL ONE (22:00)
[2019-09-29 22:19] LABS: Absolute Lymphocytes (CBC) 1.7 K/uL (0.7-4.9); Basophils % 0.6 % (0-1.3); Hematocrit 41.1 % (39.6-49.0); MPV 9.5 fL (7.6-11.3); RBC Red Blood Cell Count 4.55 M/uL (4.33-5.43)
[2019-09-29 22:30] LABS: Albumin 3.8 g/dL (3.4-5.0); Bilirubin Direct 0.1 mg/dL (0-0.2); Bilirubin Total 0.4 mg/dL (0.2-1.0); Potassium 3.9 mmol/L (3.5-5.1); Protein, Total 7.2 g/dL (6.4-8.2)
[2019-09-30] MEDS ORDERED: METRONIDAZOLE 500mg IVPB 500 MG/100 ML BAG IV ONE (00:54)
[2019-09-30] MEDS ORDERED: CIPROFLOXACIN 400mg IV 400 MG/200 ML BAG IV ONE (00:54)
--- NOTE | 2019-09-30 01:30 | ER ---
Nurse's Notes [facility] Name: Gregory Dumont Age: 59 yrs Sex: Male : 1960 Arrival Date: 09/29/2019 Time: 21:49 Bed 8 Private MD: Diagnosis: Diverticulitis of large intestine without perforation or abscess without bleeding Presentation: 09/29 21:51 Presenting complaint:. Presenting complaint: EMS states: Pt reports right upper ea quadrant throbbing pain. Reports he was seen for this last week and the pain was relieved for a few days but started again. Transition of care: patient was not received from another setting of care. Onset of symptoms was September 29, 2019. Risk Assessment: Do you want to hurt yourself or someone else? Patient reports no desire to harm self or others. Initial Sepsis Screen: Does the patient meet any 2 criteria? No. Patient's initial sepsis screen is negative. Does the patient have a suspected source of infection? No. Patient's initial sepsis screen is negative. Care prior to arrival: None. 21:51 Method Of Arrival: EMS: [facility] ea 21:51 Acuity: MARION 3 ea Historical: - Allergies: 21:55 NKA; ea - Home Meds: 21:55 venlafaxine Oral [Active]; [place] Carbonate Oral [Active]; ea - PMHx: 21:55 Irregular heart rate; HYPOGLYCEMIA; HEP C; CVA; Bipolar disorder; ADD/ADHD; ea - PSHx: 21:55 Knee surgery; ea - Immunization history:: Adult Immunizations up to date. - Social history:: Smoking status: Patient/guardian denies using tobacco. - Family history:: not pertinent. - Ebola Screening: : No symptoms or risks identified at this time. - Hospitalizations: : No recent hospitalization is reported. Screenin:54 Abuse screen: Denies threats or abuse. Nutritional screening: No deficits noted. ea Tuberculosis screening: No symptoms or risk factors identified. Fall Risk None identified. Assessment: 22:00 Reassessment: pt observed to have bed bugs in his clothing an on himself all clothing bb and personal articles were removed and placed in plastic bags, switch house operator Lucie PRINCE notified and EVS notified. Pest Control notified by EVS. 23:45 Reassessment: Patient and/or family updated on plan of care and expected duration. Pain ea level reassessed. Patient is alert, oriented x 3, equal unlabored respirations, skin warm/dry/pink. 09/30 00:09 Reassessment: Patient and/or family updated on plan of care and expected duration. Pain ea level reassessed. Patient is alert, oriented x 3, equal unlabored respirations, skin warm/dry/pink. 01:00 Reassessment: Patient and/or family updated on plan of care and expected duration. Pain ea level reassessed. Patient is alert, oriented x 3, equal unlabored respirations, skin warm/dry/pink. 02:50 Reassessment: Patient and/or family updated on plan of care and expected duration. Pain ea level reassessed. Patient is alert, oriented x 3, equal unlabored respirations, skin warm/dry/pink. 03:30 Reassessment: Patient and/or family updated on plan of care and expected duration. Pain ea level reassessed. Patient is alert, oriented x 3, equal unlabored respirations, skin warm/dry/pink. Discharge instruction given to patient. Verbalized the understanding of instruction. Pt left ED ambulatory tolerating well. Vital Signs: 09/29 21:53 BP 149 / 102; Pulse 76; Resp 18; Temp 98(O); Pulse Ox 97% on R/A; Weight 74.84 kg; ea Height 5 ft. 11 in. (180.34 cm); Pain 9/10; 22:44 BP 143 / 86; Pulse 59; Resp 18; Pulse Ox 99% on R/A; ea 09/30 00:19 BP 140 / 88; Pulse 86; Resp 18; Pulse Ox 95% on R/A; ea 01:00 BP 137 / 81; Pulse 80; Resp 18; Pulse Ox 99% on R/A; ea 02:00 BP 123 / 78; Pulse 66; Resp 18; Pulse Ox 100% on R/A; ea 03:00 BP 135 / 82; Pulse 60; Resp 18; Pulse Ox 99% on R/A; ea 09/29 21:53 Body Mass Index 23.01 (74.84 kg, 180.34 cm) ea ED Course: 09/29 21:49 Patient arrived in ED. rn 21:49 Cameron Avery MD is Attending Physician. rn 21:53 Triage completed. ea 21:55 Arm band placed on right wrist. Patient placed in an exam room, on a stretcher, on ea pulse oximetry. 21:55 Patient has correct armband on for positive identification. Bed in low position. Call ea light in reach. Side rails up X2. 22:16 Janet Lundberg, RN is Primary Nurse. ea 23:48 CT Abd/Pelvis - IV Contrast Only In Process Unspecified. EDMS 09/30 01:28 Hong Dawson MD is Referral Physician. rn 03:15 IV discontinued, intact, bleeding controlled, No redness/swelling at site. Pressure ea dressing applied. 03:15 No provider procedures requiring assistance completed. ea Administered Medications: 09/29 22:06 Drug: Zofran 4 mg Route: IVP; Site: right antecubital; ea 23:00 Follow up: Response: No adverse reaction ea 22:06 Drug: GI Cocktail without - (Maalox Suspension 30 ml, Lidocaine Liquid 2 % 15 ea ml) Route: PO; 23:00 Follow up: Response: No adverse reaction ea 22:07 Drug: NS 0.9% 500 ml Route: IV; Rate: bolus; Site: right forearm; ea 09/30 00:00 Follow up: IV Status: Completed infusion; IV Intake: 500ml ea 01:04 Drug: Cipro 400 mg Volume: 200 ml; Route: IVPB; Infused Over: 60 mins; Site: right ea antecubital; 02:00 Follow up: Response: No adverse reaction ea 02:00 Follow up: Response: No adverse reaction; IV Status: Completed infusion ea 01:04 Drug: Flagyl 500 mg Volume: 100 ml; Route: IVPB; Rate: 200 ml/hr; Infused Over: 30 ea mins; Site: right antecubital; 02:00 Follow up: Response: No adverse reaction ea 02:00 Follow up: Response: No adverse reaction ea 02:00 Follow up: IV Status: Completed infusion ea Intake: 00:00 IV: 500ml; Total: 500ml. ea Outcome: 01:29 Discharge ordered by . rn 03:34 Discharged to home ambulatory. ea 03:34 Condition: stable 03:34 Discharge instructions given to patient, Instructed on discharge instructions, follow up and referral plans. medication usage, Demonstrated understanding of instructions, follow-up care, medications, Prescriptions given X 2. 03:40 Patient left the ED. ea Signatures: Dispatcher [employer] Karen Aguilar RN RN bb Nieto, Roman, MD MD rn Antunez, Elena, RN RN ea
--- NOTE | 2019-09-30 01:30 | EDPHYS ---
Physician Documentation [facility] Name: Gregory Dumont Age: 59 yrs Sex: Male : 1960 Arrival Date: 09/29/2019 Time: 21:49 Bed 8 Private MD: ED Physician Cameron Avery HPI: 09/29 21:52 This 59 yrs old Male presents to ER via Unassigned with complaints of abd rn pain, nausea. 21:52 The patient presents with abdominal pain in the epigastric area, in the right upper rn quadrant. Onset: The symptoms/episode began/occurred 1 week(s) ago. The symptoms do not radiate. Associated signs and symptoms: Pertinent positives: nausea, Pertinent negatives: blood in stools, chest pain, constipation, diarrhea, dysuria, fever, shortness of breath, testicular pain. Modifying factors: The symptoms are alleviated by nothing, the symptoms are aggravated by food. Severity of pain: At its worst the pain was mild in the emergency department the pain is unchanged. The patient has not experienced similar symptoms in the past. The patient has been recently seen at the [facility] Emergency Department. Reports seen a week ago for same problem, got better initially but returns with recurrence of abd pain, epigastric and RUQ, assoc with nausea, no fever/diarrhea/blood in stool. . Historical: - Allergies: 21:55 NKA; ea - Home Meds: 21:55 venlafaxine Oral [Active]; [place] Carbonate Oral [Active]; ea - PMHx: 21:55 Irregular heart rate; HYPOGLYCEMIA; HEP C; CVA; Bipolar disorder; ADD/ADHD; ea - PSHx: 21:55 Knee surgery; ea - Immunization history:: Adult Immunizations up to date. - Social history:: Smoking status: Patient/guardian denies using tobacco. - Family history:: not pertinent. - Ebola Screening: : No symptoms or risks identified at this time. - Hospitalizations: : No recent hospitalization is reported. ROS: 21:52 Constitutional: Negative for fever, chills, and weight loss, ENT: Negative for injury, rn pain, and discharge, Neck: Negative for injury, pain, and swelling, Cardiovascular: Negative for chest pain, palpitations, and edema, Respiratory: Negative for shortness of breath, cough, wheezing, and pleuritic chest pain, Abdomen/GI: + abd pain and nausea MS/Extremity: Negative for injury and deformity, Skin: Negative for injury, rash, and discoloration, Neuro: Negative for headache, weakness, numbness, tingling, and seizure. Exam: 21:52 Constitutional: This is a well developed, well nourished patient who is awake, alert, rn and in no acute distress. Head/Face: Normocephalic, atraumatic. ENT: dry MM Cardiovascular: Regular rate and rhythm. No pulse deficits. Respiratory: No increased work of breathing, no retractions or nasal flaring. Abdomen/GI: soft, mild epigastric tenderness and RUQ tenderness, neg buenrostro MS/ Extremity: Pulses equal, no cyanosis. Neurovascular intact. Full, normal range of motion. Equal circumference. Neuro: Awake and alert, GCS 15, oriented to person, place, time, and situation. Cranial nerves II-XII grossly intact. Motor strength 5/5 in all extremities. Sensory grossly intact. Cerebellar exam normal. Vital Signs: 21:53 BP 149 / 102; Pulse 76; Resp 18; Temp 98(O); Pulse Ox 97% on R/A; Weight 74.84 kg; ea Height 5 ft. 11 in. (180.34 cm); Pain 9/10; 22:44 BP 143 / 86; Pulse 59; Resp 18; Pulse Ox 99% on R/A; ea 09/30 00:19 BP 140 / 88; Pulse 86; Resp 18; Pulse Ox 95% on R/A; ea 01:00 BP 137 / 81; Pulse 80; Resp 18; Pulse Ox 99% on R/A; ea 02:00 BP 123 / 78; Pulse 66; Resp 18; Pulse Ox 100% on R/A; ea 03:00 BP 135 / 82; Pulse 60; Resp 18; Pulse Ox 99% on R/A; ea 09/29 21:53 Body Mass Index 23.01 (74.84 kg, 180.34 cm) ea MDM: 09/29 21:49 Patient medically screened. rn 09/30 00:49 Differential diagnosis: appendicitis, bowel obstruction, cholecystitis, Cholelithiasis, rn diverticulitis, gastritis, gastroesophageal reflux disease, non-specific abd pain, pancreatitis, Peptic Ulcer Disease, Ureterolithiasis. Data reviewed: vital signs, nurses notes, lab test result(s), radiologic studies, CT scan, and as a result, I will discharge patient. Counseling: I had a detailed discussion with the patient and/or guardian regarding: the historical points, exam findings, and any diagnostic results supporting the discharge/admit diagnosis, lab results, radiology results, the need for outpatient follow up, to return to the emergency department if symptoms worsen or persist or if there are any questions or concerns that arise at home. Response to treatment: the patient's symptoms have mildly improved after treatment, and as a result, I will discharge patient. Special discussion: I discussed with the patient/guardian in detail that at this point there is no indication for admission to the hospital. It is understood, however, that if the symptoms persist or worsen the patient needs to return immediately for re-evaluation. Based on the history and exam findings, there is no indication for further emergent testing or inpatient evaluation. I discussed with the patient/guardian the need to see the home care aide for further evaluation of the symptoms. I discussed with the patient/guardian the need to see the primary care provider for further evaluation of the symptoms. ED course: Pt improved, ct shows mild diverticulitis, no recent abx, will dc home with abx and pain meds. . 09/29 21:50 Order name: Basic Metabolic Panel; Complete Time: 22:36 09/29 21:50 Order name: CBC with Diff; Complete Time: 22:36 09/29 21:50 Order name: Creatinine for Radiology; Complete Time: 22:36 09/29 21:50 Order name: Hepatic Function; Complete Time: 22:36 09/29 21:50 Order name: Lipase; Complete Time: 22:36 09/29 21:51 Order name: CT Abd/Pelvis - IV Contrast Only 09/29 21:50 Order name: IV Saline Lock; Complete Time: 22:15 09/29 21:50 Order name: Labs collected and sent; Complete Time: 22:15 rn Administered Medications: 09/29 22:06 Drug: Zofran 4 mg Route: IVP; Site: right antecubital; ea 23:00 Follow up: Response: No adverse reaction ea 22:06 Drug: GI Cocktail without - (Maalox Suspension 30 ml, Lidocaine Liquid 2 % 15 ea ml) Route: PO; 23:00 Follow up: Response: No adverse reaction ea 22:07 Drug: NS 0.9% 500 ml Route: IV; Rate: bolus; Site: right forearm; ea 09/30 00:00 Follow up: IV Status: Completed infusion; IV Intake: 500ml ea 01:04 Drug: Cipro 400 mg Volume: 200 ml; Route: IVPB; Infused Over: 60 mins; Site: right ea antecubital; 02:00 Follow up: Response: No adverse reaction ea 02:00 Follow up: Response: No adverse reaction; IV Status: Completed infusion ea 01:04 Drug: Flagyl 500 mg Volume: 100 ml; Route: IVPB; Rate: 200 ml/hr; Infused Over: 30 ea mins; Site: right antecubital; 02:00 Follow up: Response: No adverse reaction ea 02:00 Follow up: Response: No adverse reaction ea 02:00 Follow up: IV Status: Completed infusion ea Disposition: 09/30/19 01:29 Discharged to Home. Impression: Diverticulitis of large intestine without perforation or abscess without bleeding. - Condition is Stable. - Discharge Instructions: Diverticulitis. - Prescriptions for Flagyl 500 mg Oral Tablet - take 1 tablet by ORAL route every 8 hours for 10 days; 30 tablet. Ultram 50 mg Oral Tablet - take 1 tablet by ORAL route every 6 hours As needed; 15 tablet. Cipro 500 mg Oral Tablet - take 1 tablet by ORAL route every 12 hours for 10 days; 20 tablet. - Medication Reconciliation Form, Thank You Letter, Antibiotic Education, Prescription Opioid Use form. - Follow up: Hong Dawson MD; When: 5 - 6 days; Reason: Recheck today's complaints, Re-evaluation by your physician. - Problem is new. - Symptoms have improved. Signatures: Dispatcher [employer] EDMS Cameron Avery MD MD rn Antunez, Elena, RN RN ea Corrections: (The following items were deleted from the chart) 03:40 01:29 09/30/2019 01:29 Discharged to Home. Impression: Diverticulitis of large ea intestine without perforation or abscess without bleeding. Condition is Stable. Forms are Medication Reconciliation Form, Thank You Letter, Antibiotic Education, Prescription Opioid Use. Follow up: Hong Dawson; When: 5 - 6 days; Reason: Recheck today's complaints, Re-evaluation by your physician. Problem is new. Symptoms have improved. rn
[2019-09-30 03:57] VITALS: TEMP 98
[2019-09-30 04:00] VITALS: BP 140/88; O2SAT 95
--- NOTE | 2019-10-01 13:00 | RAD REPORT ---
EXAM DESCRIPTION: CT - Abdomen Pelvis W Contrast - 09/30/2019 3:32 am CLINICAL HISTORY: 59-year-old male with abdominal pain TECHNIQUE: Axial CT imaging of the abdomen and pelvis was performed following the administration of intravenous contrast.. Sagittal and coronal reconstructed images were then performed. The CT stud y is performed according to ALARA (as low as reasonably achievable) or ALARA/IMAGE GENTLY, with autom atic adjustment of mA and/or kV according to patient size. Performed on: 09/29/2019 at 11:30 PM. COMPARISON: Prior CT abdomen and pelvis with contrast performed on 09/03/2019 FINDINGS: Lung bases: The lung bases are clear. There is minimal bibasilar atelectasis and/or fibros is. Liver: The liver is normal in size and configuration. No focal hepatic abnormalities are identified. Liver attenuation is within normal limits. There are a few calcified hepatic granulomas. Spleen: The spleen is normal is size, configuration and attenuation. There are a few calcified spleni c granulomas. Gallbladder and bile duct: The gallbladder is well distended and unremarkable. There is no biliary ductal dilatation. Pancreas: The pancreas is grossly normal in size and configuration. Adrenal Glands: The adrenal glands are normal in size and configuration. Kidneys: The kidneys are normal in size and configuration. There is no evidence of hydronephrosis. Th ere is bilateral nonobstructing nephrolithiasis. There is a grossly stable 3.5 cm right renal cyst. Stomach: The stomach is grossly normal. There is no definite hiatal hernia. Bowel: The bowel gas pattern is non specific and non obstructive. There is colonic diverticulosis wit h greatest involvement of the sigmoid portion of the colon. There may be very minimal infiltration of the pericolonic fat surrounding the sigmoid portion of the colon which may reflect early acute diver ticulitis. Appendix: The appendix is normal. Free air: There is no evidence of free air. Free fluid: There is no evidence of free fluid. Vasculature: The aorta is normal in caliber and contour. There are atherosclerotic calcifications carlene ng the abdominal aorta and iliac arteries. The inferior vena cava is grossly unremarkable. Lymphadenopathy: No pathologic lymphadenopathy is identified. Bladder: The bladder is partially distended and smooth in contour. Reproductive: The prostate gland is grossly within normal limits. Bones: No acute osseous abnormalities are identified. There is chronic advanced degenerative disc dis ease at L5-S1 similar when compared to the previous study. Soft tissues: No acute focal soft tissue abnormalities are identified. There are small bilateral fat- containing inguinal hernias. IMPRESSION: 1. Colonic diverticulosis with findings suggestive of possible early acute diverticuli tis involving the sigmoid portion of the colon. There is no peridiverticular abscess or perforation. Findings could reflect resolving diverticulitis when compared to the prior CT scan from 09/03/2019. 2. Bilateral nonobstructing renal calculi. 3. Stable 3.5 cm right renal cyst. 4. Evidence of prior granulomatous disease. 5. Advanced degenerative disc disease at L5-S1. 6. Small bilateral fat-containing inguinal hernias. Electronically signed by: Siobhan Chavez DO 09/30/2019 12:34 AM BUSINESS PLANNING MANAGER Due to temporary technical issues with the PACS/Fluency reporting system, reports are being signed by the in house radiologist as a courtesy to ensure prompt reporting. The interpreting radiologist is f ully responsible for the content of the report.
== END 2019-09-30 03:40 | disposition home or self-care (01) ==
LOC: ER 21:45
DX: K57.32 Diverticulitis of large intestine without perforation or abscess without bleeding (principal); F31.9 Bipolar disorder, unspecified
CPT/HCPCS: 96365; 96361; 96368; 85025; 80048; 36415; 80076; 83690; 74177; 96375; 99284; Q9967; J7040; J2405; J0744

== ENCOUNTER 2019-10-14 11:05 | Inpatient (IN) | payer OTHER ==
--- OUTSIDE RECORDS SUMMARY | 2019-10-14 11:07 | XMS REPORT ---
[...] Dosage System Date Date Albuterol Sulfate [facility] [id number] 108 (90 Base) Aug 01, 2 puffs HFA MCG/ACT 2018 Inhalation every 6 hours prn sob Incruse Ellipta [facility] 63203174138 62.5 MCG/INH Aug 01April Active 1 puff Inhalation Once 2018 12, a day 2019 blood glucose ND 0 n/s SC once a January Active one test strip 2018 Alcohol Prep Pads ND 0 topical once a January Active as day , directed 2018 2018 Lithobid [facility] 79265505004 300 MG Orally Active 1 tablet twice a day Seroquel ND 91945997424 400 MG Orally Dec 14, Active 1 tablet Once a day at 2017 bedtime Sildenafil ND 81898032984 100 MG Orally Oct Inactive 1 tablet Citrate Once a day 2018 Atorvastatin [facility] 21231410753 20 MG Orally Active 1 tablet Calcium Once a day Fish Oil [facility] 37953700704 1000 MG Orally Active 1 capsule Once a day Super B-Complex [facility] 36993466609 - Orally once a Active as day directed D3 Maximum [facility] 55812719641 5000 UNIT Active 1 capsule Strength Orally Once a day Memantine HCl [facility] 61856781189 10 MG Orally Active 1 tablet Twice a day Atorvastatin [facility] 54078743443 40 MG Orally Active 1 tablet Calcium Once a day Vitamin B12 [facility] 47145398060 1000 MCG Orally Active 1 tablet Once a day Cyanocobalamin [facility] 68858514775 2500 MCG Active as Sublingual once directed a day Co-Enzyme Q-10 [facility] 87287369138 100 MG Orally Active 2 capsule Once a day with a meal Zetia [facility] 86336971527 10 MG Orally Active 1 tablet Once a day Lancets Super NDC 0 n/s finger January Active one Thin stick once 2018 Diclofenac Sodium [facility] 68526917857 75 MG Orally Active 1 tablet Twice a day prn with food pain or milk Trazodone HCl [facility] 01241492806 100 MG Orally Active 1 tablet Once a day at bedtime Ascorbic Acid [facility] 01170725213 500 MG Orally Active 1 tablet twice a day Cialis [facility] 31198641831 20 MG Orally Aug 01Aug Active 1 tablet 2018 Thiamine [facility] 07637522650 50 MG Orally Active 2 capsules Once a day Vitamin B12 [facility] 87683945607 1000 MCG Orally Active 1 tablet Once a day Melatonin [facility] 31572800292 3 MG Orally Active 1 tablet Once a day at bedtime as needed with food Ezetimibe [facility] 94459510842 10 MG Orally Nov 15, Active 1 tablet Once a day 2018 Results Name Result Date Reference Range Unit Abnormality Flag Ct Low Dose Chest Screening Summary Purpose eClinicalWorks Submission
--- OUTSIDE RECORDS SUMMARY | 2019-10-14 11:07 | XMS REPORT ---
:1960 Author Organization [facility] Address [address] [place] [address] Care Team Providers Name Role Phone Unavailable Unavailable Unavailable Problems This patient has no known problems. Allergies, Adverse Reactions, Alerts This patient has no known allergies or adverse reactions. Medications This patient has no known medications.
--- OUTSIDE RECORDS SUMMARY | 2019-10-14 11:08 | XMS REPORT ---
[...] End Status Dosage System Date Date Cipro [facility] 50690287083 500 MG Orally Nov Active 1 tablet every 12 hrs 2018 Metronidazole ND 19670619190 500 MG Orally Nov Active 1 tablet every 6 hours 2018 Lithobid [facility] 34309787643 300 MG Orally Active 1 tablet twice a day Atorvastatin ND 71577219753 20 MG Orally Active 1 tablet Calcium Once a day Co-Enzyme Q-10 ND 23041503498 100 MG Orally Active 2 capsule Once a day with a meal Melatonin [facility] 26628964998 3 MG Orally Active 1 tablet Once a day at bedtime as needed with food Cyanocobalamin [facility] 08108205277 2500 MCG Active as Sublingual once directed a day Memantine HCl ND 07901922461 10 MG Orally Active 1 tablet Twice a day Trazodone HCl [facility] 15677466979 100 MG Orally Active 1 tablet Once a day at bedtime Atorvastatin [facility] 23749175640 40 MG Orally Active 1 tablet Calcium Once a day Fish Oil ND 52518901211 1000 MG Orally Active 1 capsule Once a day Ranitidine HCl [facility] 17217011705 150 MG Active TAKE 1 TABLET BY MOUTH TWICE A DAY Thiamine [facility] 03583911950 50 MG Orally Active 2 capsules Once a day Super B-Complex [facility] 84909817383 - Orally once a Active as day directed Ezetimibe ND 20520882956 10 MG Orally Nov 15, Active 1 tablet Once a day 2018 D3 Maximum [facility] 74719232367 5000 UNIT Active 1 capsule Strength Orally Once a day Cyclobenzaprine ND 30137480495 10 MG Orally Sep 06Sep Active 1 tablet HCl once a day at 2018 11, as needed bedtime 2018 Ascorbic Acid [facility] 74002698128 500 MG Orally Active 1 tablet twice a day Lancets Super Thin NDC 0 n/s finger January Active one stick once 2018 Vitamin B12 [facility] 44372392728 1000 MCG Orally Active 1 tablet Once a day Albuterol Sulfate [facility] 15759675743 108 (90 Base) Aug 01, Active 2 puffs HFA MCG/ACT 2018 Inhalation every 6 hours prn sob Seroquel ND 59663809036 400 MG Orally Dec 14, Active 1 tablet Once a day at 2018 bedtime blood glucose test NDC 0 n/s SC once a January Active one strip day 2018 Diclofenac Sodium [facility] 81646385683 75 MG Orally Active 1 tablet Twice a day prn with food pain or milk Zetia [facility] 19372139582 10 MG Orally Active 1 tablet Once a day Vitamin B12 [facility] 50237307275 1000 MCG Orally Active 1 tablet Once a day Incruse Ellipta [facility] 35552556814 62.5 MCG/INH Aug 01April Active 1 puff Inhalation Once 2019 12, a day 2020 Results No Known Results Summary Purpose eClinicalWorks Submission
[2019-10-14] MEDS ORDERED: NA CHLORIDE 0.9% 1,000 ML ONE ×2 (11:27→21:22)
[2019-10-14] MEDS ORDERED: METRONIDAZOLE 500mg IVPB 500 MG/100 ML BAG IV ONE ×2 (12:13→21:22)
[2019-10-14] MEDS ORDERED: CEFTRIAXONE/SWI 1gm 1 GM/10 ML SYR ONE ×2 (12:13→15:47)
[2019-10-14] MEDS ORDERED: CIPROFLOXACIN 400mg IV 400 MG/200 ML BAG IV ONE (12:13)
[2019-10-14] MEDS ORDERED: MORPHINE 4 MG/ML SYR ONE (12:13)
[2019-10-14] MEDS ORDERED: ONDANSETRON 4 MG/2 ML VIAL ONE ×2 (12:13→13:33)
[2019-10-14 12:14] LABS: Absolute Lymphocytes (CBC) 0.5 K/uL (0.7-4.9); Basophils % 0.2 % (0-1.3); Lymphocytes % 3.9 % (15.3-44.8); MPV 8.8 fL (7.6-11.3); Protime INR 0.96; RBC Red Blood Cell Count 4.77 M/uL (4.33-5.43)
[2019-10-14 12:28] LABS: ALT/SGPT 24 U/L (12-78); AST/SGOT 20 U/L (15-37); Albumin 3.9 g/dL (3.4-5.0); Alkaline Phosphatase 63 U/L (45-117); BUN Blood Urea Nitrogen 21 mg/dL (7-18); Bicarbonate 22 mmol/L (21-32); Bilirubin Direct 0.1 mg/dL (0-0.2); Bilirubin Total 0.5 mg/dL (0.2-1.0); Glucose Level 106 mg/dL (74-106); Lipase 184 U/L (73-393); Magnesium 1.9 mg/dL (1.8-2.4); NT PRO-BNP 116 pg/mL (<125); Potassium 3.6 mmol/L (3.5-5.1); Sodium Level 139 mmol/L (136-145); Troponin (Emerg Dept Use Only) < 0.02 ng/mL (0.0-0.045)
[2019-10-14 12:41] LABS: Urine Blood NEGATIVE (NEG); Urine Glucose NEGATIVE (NEG); Urine Protein NEGATIVE (NEG); Urine Specific Gravity 1.025 (1.005-1.030); Urine pH 5.5 (5.0-7.0)
[2019-10-14 12:50] LABS: Blood Morphology Comment NOT SEEN (NOT SEEN); Platelet Estimate ADEQ; Urine White Blood Cell Casts OK
[2019-10-14] MEDS ORDERED: FENTANYL CITR 100 MCG/2 ML ONE ×2 (13:33→20:28)
--- NOTE | 2019-10-14 14:14 | RAD REPORT ---
EXAM DESCRIPTION: CT - Abdomen Pelvis W Contrast - 10/14/2019 1:55 pm CLINICAL HISTORY: Abdominal pain. COMPARISON: September 29, 2019 TECHNIQUE: Computed axial tomography of the abdomen and pelvis was obtained. 100 cc Isovue-300 is ad ministered intravenously. Oral contrast was given. All CT scans are performed using dose optimization technique as appropriate and may include automated exposure control or mA/KV adjustment according to patient size. FINDINGS: Mild fatty liver Splenic granulomata The pancreas and adrenals unremarkable. Small nonobstructing bilateral renal calculi. Stable right renal cyst The appendix is normal caliber. Sigmoid diverticulosis. Thickening of the sigmoid colon. Moderate stranding adjacent to the sigmoid colon consistent with diverticulitis. Small amount of ascites. No free air. Small inguinal hernias contain fat small umbilical hernia Spondylolysis L5 IMPRESSION: Moderate sigmoid diverticulitis
--- NOTE | 2019-10-14 14:16 | RAD REPORT ---
EXAM DESCRIPTION: [place] Single View10/14/2019 11:28 am CLINICAL HISTORY: Chest pain COMPARISON: August 2019 FINDINGS: Area of subsegmental atelectasis within the right lung base. Left lung appears clear. The heart is normal size Tortuous/ectatic aorta
--- NOTE | 2019-10-14 14:24 | ER ---
Nurse's Notes [facility] Name: Gregory Dumont Age: 59 yrs Sex: Male : 1960 Arrival Date: 10/14/2019 Time: 11:10 Bed 15 Private MD: Diagnosis: Abdominal tenderness;Diverticulitis of intestine, part unspecified, without perforation or abscess without bleeding-sigmoid Presentation: 10/14 11:11 Presenting complaint: Patient states: Sudden onset of lower abd pain that began this ss morning. Denies N/V/D. Transition of care: patient was not received from another setting of care. Onset of symptoms was October 14, 2019. Risk Assessment: Do you want to hurt yourself or someone else? Patient reports no desire to harm self or others. Initial Sepsis Screen: Does the patient meet any 2 criteria? No. Patient's initial sepsis screen is negative. Does the patient have a suspected source of infection? No. Patient's initial sepsis screen is negative. Care prior to arrival: IV initiated. 20 GA, in the right wrist, Glucose check: 120. 11:11 Acuity: MARION 2 ss 11:11 Method Of Arrival: EMS: [facility] Historical: - Allergies: 11:13 NKA; ss - PMHx: 11:13 ADD/ADHD; Bipolar disorder; Irregular heart rate; HYPOGLYCEMIA; HEP C; CVA; ss - PSHx: 11:13 Knee surgery; ss - Immunization history:: Adult Immunizations up to date. - Social history:: Smoking status: Patient uses tobacco products, denies chronic smoking, but will smoke occasionally. - Ebola Screening: : Patient denies exposure to infectious person Patient denies travel to an Ebola-affected area in the 21 days before illness onset. - Family history:: not pertinent. Screenin:36 Abuse screen: Denies threats or abuse. Nutritional screening: No deficits noted. ae4 Tuberculosis screening: No symptoms or risk factors identified. Fall Risk None identified. Assessment: 11:10 General: Appears in no apparent distress. comfortable, unkempt, Behavior is ae4 cooperative, anxious, restless, Talkative. Pain: Complains of pain in right lower quadrant and left lower quadrant Pain currently is 10 out of 10 on a pain scale. Quality of pain is described as crampy, Pain began gradually, 1 day ago. Neuro: Level of Consciousness is awake, alert, obeys commands, Oriented to person, place, time, situation. Cardiovascular: Heart tones S1 S2 present Patient's skin is warm and dry. Respiratory: Airway is patent Respiratory effort is even, unlabored, Respiratory pattern is regular, symmetrical, Breath sounds are diminished bilaterally. the patient has mild shortness of breath. GI: Bowel sounds present X 4 quads. Abd is soft Abdomen is tender to palpation in right lower quadrant and left lower quadrant Reports lower abdominal pain, constipation, nausea, vomiting. : No signs and/or symptoms were reported regarding the genitourinary system. EENT: Oral mucosa is dry. Poor dentition noted. Derm: Skin is dry, Scaly Rash noted that is red, raised, on back, buttocks, chest, abdomen, pelvis, right arm, left arm, right leg, left leg and neck. Musculoskeletal: No signs and/or symptoms reported regarding the musculoskeletal system. 11:20 Reassessment: Patient states he used to have "bed bugs", several small brown bugs noted ae4 on person and bed, one large brown bug noted on bed underneath patient. Belongings and clothing put in doubled bags. Paper gown and hair cap applied to patient. Wipes provided for patient to clean off. 15:57 Reassessment: Patient and/or family updated on plan of care and expected duration. Pain ae4 level reassessed. Patient states feeling better. Patient states symptoms have improved. 16:40 Reassessment: Meal tray delivered. Patient appears more relaxed. ae4 10/15 13:59 Reassessment: Called for report. Spoke with NIKI Patiño. Requested for call back after a ca1 couple minutes. Vital Signs: 10/14 11:13 BP 100 / 69; Pulse 72; Resp 19; Pulse Ox 97% on R/A; Weight 72.57 kg; Height 5 ft. 11 ss in. (180.34 cm); Pain 10/10; 11:22 Temp 97.8(O); ae4 12:18 BP 95 / 63; Pulse 67; Resp 17; Temp 97.6(O); Pulse Ox 99% on R/A; mh5 13:37 BP 105 / 72; Pulse 70; Resp 17; Pulse Ox 96% on R/A; ae4 14:20 BP 146 / 82; Pulse 64; Resp 12; Temp 98.4(O); Pulse Ox 94% ; mh5 15:56 BP 99 / 68; Pulse 71; Resp 16; Pulse Ox 93% on R/A; ae4 18:03 BP 128 / 79; Pulse 76; Resp 16; Pulse Ox 97% on R/A; ae4 11:13 Body Mass Index 22.32 (72.57 kg, 180.34 cm) ED Course: 11:10 Patient arrived in ED. ae4 11:10 Bjorn Nuno MD is Attending Physician. foster 11:12 Triage completed. ss 11:13 Arm band placed on left wrist. ss 11:15 Patient maintains SpO2 saturation greater than 95% on room air. 11:17 Carter Alvarado, RN is Primary Nurse. ae4 11:29 XRAY Chest (1 view) In Process Unspecified. EDMS 12:17 Patient has correct armband on for positive identification. Placed in gown. Bed in low mh5 position. Call light in reach. Side rails up X 1. Warm blanket given. Pulse ox on. NIBP on. 12:36 Inserted saline lock: 20 gauge in right antecubital area, using aseptic technique. ae4 Blood collected. Maintain EMS IV. Dressing intact. Site clean \\T\\ dry. Gauge \\T\\ site: 20 Right wrist. 13:58 CT Abd/Pelvis - PO and IV Contrast In Process Unspecified. EDMS 14:22 Jose Montano MD is Hospitalizing Provider. [facility] 20:00 No provider procedures requiring assistance completed. Patient admitted, IV remains in ea place. 10/15 08:08 Primary Nurse role handed off by Carter Alvarado, RN bd Administered Medications: 10/14 11:50 Drug: NS 0.9% 1000 ml Route: IV; Rate: 1 bolus; Site: right antecubital; ae4 18:07 Follow up: IV Status: Completed infusion; IV Intake: 1330ml ae4 12:10 Drug: Zofran 4 mg Route: IVP; Site: right antecubital; ae4 13:44 Follow up: Response: Nausea is decreased ae4 12:12 Drug: morphine 4 mg Route: IVP; Site: right antecubital; ae4 13:44 Follow up: Response: Pain is decreased ae4 13:44 Follow up: Response: RASS: Alert and Calm (0) ae4 12:15 Drug: Rocephin 1 grams Route: IV; Rate: per protocol; Site: right antecubital; ae4 12:20 Follow up: IV Status: Completed infusion; IV Intake: 10ml ae4 12:22 Drug: Cipro 400 mg Volume: 200 ml; Route: IVPB; Infused Over: 60 mins; Site: right ae4 antecubital; 13:30 Follow up: IV Status: Completed infusion; IV Intake: 200ml ae4 12:22 Drug: Flagyl 500 mg Volume: 100 ml; Route: IVPB; Rate: 200 ml/hr; Infused Over: 30 ae4 mins; Site: right antecubital; 18:07 Follow up: IV Status: Completed infusion; IV Intake: 200ml ae4 13:30 Drug: Zofran 4 mg Route: IVP; Site: right antecubital; ae4 18:05 Follow up: Response: Nausea is decreased ae4 13:34 Drug: fentaNYL (PF) 25 mcg Route: IVP; Site: right antecubital; ae4 14:25 Follow up: Response: Pain is unchanged, physician notified ae4 15:50 Drug: Dilaudid 1 mg Route: IVP; Site: right antecubital; ae4 16:00 Follow up: Response: Pain is decreased; RASS: Alert and Calm (0) ae4 15:55 Drug: Rocephin 1 grams Route: IV; Rate: per protocol; Site: right antecubital; ae4 16:00 Follow up: IV Status: Completed infusion; IV Intake: 10ml ae4 18:04 Follow up: IV Status: Completed infusion ae4 20:29 Drug: fentaNYL (PF) 25 mcg {Note: RASS 1.} Route: IVP; Site: right antecubital; ea Intake: 12:20 IV: 10ml; Total: 10ml. ae4 13:30 IV: 200ml; Total: 210ml. ae4 16:00 IV: 10ml; Total: 220ml. ae4 18:07 IV: 200ml; Total: 420ml. ae4 18:07 IV: 1330ml; Total: 1750ml. ae4 Outcome: 14:23 Decision to Hospitalize by Provider. foster 20:00 Admitted to ER Hold. Please see [facility] for further documentation. ea 20:00 Condition: stable 20:00 Instructed on the need for admit. 10/15 16:10 Admitted to Tele accompanied by tech, via wheelchair, room 411, with chart, Report ca1 called to EVERTON Almanzar 16:50 Patient left the ED. Signatures: Dispatcher [employer] EDMS Khushi Thompson Corey, MD MD cha Smirch, Shelby, RN RN ss Baxter, Heather, RN RN hb Martinez, Maria [facility] Janet Lundberg RN RN ea Acob, Cheryl, RN RN ca1 Elliott, Andrea, RN RN ae4 Corrections: (The following items were deleted from the chart) 10/14 12:24 12:18 Pulse 67bpm; Resp 17bpm; Pulse Ox 99% RA; Temp 97.6F Oral; [place] [id number] 10/15 16:13 16:10 Admitted to Tele accompanied by tech, via stretcher, room 411, with chart, Report ca1 called to EVERTON Almanzar ca1
--- NOTE | 2019-10-14 14:25 | EDPHYS ---
Physician Documentation [facility] Name: Gregory Dumont Age: 59 yrs Sex: Male : 1960 Arrival Date: 10/14/2019 Time: 11:10 Bed 15 Private MD: ED Physician Bjorn Nuno HPI: 10/14 11:52 This 59 yrs old Male presents to ER via EMS with complaints of Abd Pain > 50 foster y/o. 11:52 The patient presents with abdominal pain. Onset: The symptoms/episode began/occurred 3 foster day(s) ago. The symptoms do not radiate. Associated signs and symptoms: none. The symptoms are described as crampy. Modifying factors: The symptoms are alleviated by remaining still, the symptoms are aggravated by movement, touching the area, walking. Severity of pain: At its worst the pain was moderate in the emergency department the pain is unchanged. Historical: - Allergies: 11:13 NKA; ss - PMHx: 11:13 ADD/ADHD; Bipolar disorder; Irregular heart rate; HYPOGLYCEMIA; HEP C; CVA; ss - PSHx: 11:13 Knee surgery; ss - Immunization history:: Adult Immunizations up to date. - Social history:: Smoking status: Patient uses tobacco products, denies chronic smoking, but will smoke occasionally. - Ebola Screening: : Patient denies exposure to infectious person Patient denies travel to an Ebola-affected area in the 21 days before illness onset. - Family history:: not pertinent. ROS: 11:52 Constitutional: Negative for fever, chills, and weight loss, Eyes: Negative for injury, foster pain, redness, and discharge, ENT: Negative for injury, pain, and discharge, Neck: Negative for injury, pain, and swelling, Cardiovascular: Negative for chest pain, palpitations, and edema, Respiratory: Negative for shortness of breath, cough, wheezing, and pleuritic chest pain, Back: Negative for injury and pain, : Negative for injury, bleeding, discharge, and swelling, MS/Extremity: Negative for injury and deformity, Skin: Negative for injury, rash, and discoloration, Neuro: Negative for headache, weakness, numbness, tingling, and seizure, Psych: Negative for depression, anxiety, suicide ideation, homicidal ideation, and hallucinations, Allergy/Immunology: Negative for hives, rash, and allergies, Endocrine: Negative for neck swelling, polydipsia, polyuria, polyphagia, and marked weight changes, Hematologic/Lymphatic: Negative for swollen nodes, abnormal bleeding, and unusual bruising. 11:52 Abdomen/GI: Positive for abdominal pain, of the suprapubic area and left lower quadrant. Exam: 11:52 Constitutional: This is a well developed, well nourished patient who is awake, alert, foster and in no acute distress. Head/Face: Normocephalic, atraumatic. Eyes: Pupils equal round and reactive to light, extra-ocular motions intact. Lids and lashes normal. Conjunctiva and sclera are non-icteric and not injected. Cornea within normal limits. Periorbital areas with no swelling, redness, or edema. ENT: Nares patent. No nasal discharge, no septal abnormalities noted. Tympanic membranes are normal and external auditory canals are clear. Oropharynx with no redness, swelling, or masses, exudates, or evidence of obstruction, uvula midline. Mucous membranes moist. Neck: Trachea midline, no thyromegaly or masses palpated, and no cervical lymphadenopathy. Supple, full range of motion without nuchal rigidity, or vertebral point tenderness. No Meningismus. Chest/axilla: Normal chest wall appearance and motion. Nontender with no deformity. No lesions are appreciated. Cardiovascular: Regular rate and rhythm with a normal S1 and S2. No gallops, murmurs, or rubs. Normal PMI, no JVD. No pulse deficits. Respiratory: Lungs have equal breath sounds bilaterally, clear to auscultation and percussion. No rales, rhonchi or wheezes noted. No increased work of breathing, no retractions or nasal flaring. Back: No spinal tenderness. No costovertebral tenderness. Full range of motion. Male : Normal genitalia with no discharge or lesions. Skin: Warm, dry with normal turgor. Normal color with no rashes, no lesions, and no evidence of cellulitis. MS/ Extremity: Pulses equal, no cyanosis. Neurovascular intact. Full, normal range of motion. Neuro: Awake and alert, GCS 15, oriented to person, place, time, and situation. Cranial nerves II-XII grossly intact. Motor strength 5/5 in all extremities. Sensory grossly intact. Cerebellar exam normal. Normal gait. Psych: Awake, alert, with orientation to person, place and time. Behavior, mood, and affect are within normal limits. 11:52 Abdomen/GI: Inspection: distension, Bowel sounds: normal, Palpation: mild abdominal tenderness, moderate abdominal tenderness, in the suprapubic area, left upper quadrant and left lower quadrant, Liver: no appreciated palpable abnormalities, Hernia: not appreciated. Vital Signs: 11:13 BP 100 / 69; Pulse 72; Resp 19; Pulse Ox 97% on R/A; Weight 72.57 kg; Height 5 ft. 11 ss in. (180.34 cm); Pain 10/10; 11:22 Temp 97.8(O); ae4 12:18 BP 95 / 63; Pulse 67; Resp 17; Temp 97.6(O); Pulse Ox 99% on R/A; mh5 13:37 BP 105 / 72; Pulse 70; Resp 17; Pulse Ox 96% on R/A; ae4 14:20 BP 146 / 82; Pulse 64; Resp 12; Temp 98.4(O); Pulse Ox 94% ; mh5 15:56 BP 99 / 68; Pulse 71; Resp 16; Pulse Ox 93% on R/A; ae4 18:03 BP 128 / 79; Pulse 76; Resp 16; Pulse Ox 97% on R/A; ae4 11:13 Body Mass Index 22.32 (72.57 kg, 180.34 cm) ss MDM: 11:10 Patient medically screened. [facility] 11:54 Data reviewed: vital signs, nurses notes, lab test result(s), EKG, radiologic studies, [facility] CT scan, plain films. 10/14 11:14 Order name: Basic Metabolic Panel; Complete Time: 12:58 [facility] 10/14 11:14 Order name: CBC with Diff; Complete Time: 12:58 [facility] 10/14 11:14 Order name: LFT's; Complete Time: 12:58 [facility] 10/14 11:14 Order name: Magnesium; Complete Time: 12:58 [facility] 10/14 11:14 Order name: NT PRO-BNP; Complete Time: 12:58 [facility] 10/14 11:14 Order name: PT-INR; Complete Time: 12:58 [facility] 10/14 11:14 Order name: Troponin (emerg Dept Use Only); Complete Time: 12:58 [facility] 10/14 11:14 Order name: Lipase; Complete Time: 12:58 [facility] 10/14 11:14 Order name: Urine Culture [facility] 10/14 12:03 Order name: Urine Dipstick--Ancillary (enter results); Complete Time: 12:58 10/14 12:50 Order name: CBC Smear Scan; Complete Time: 12:58 [facility] 10/14 15:16 Order name: CBC with Automated Diff [facility] 10/14 15:16 Order name: CBC with Automated Diff [facility] 10/14 15:16 Order name: Comprehensive Metabolic Panel [facility] 10/14 11:14 Order name: XRAY Chest (1 view); Complete Time: 14:25 [facility] 10/14 11:14 Order name: EKG; Complete Time: 11:15 [facility] 10/14 11:14 Order name: CT Abd/Pelvis - PO and IV Contrast; Complete Time: 14:25 [facility] 10/14 15:16 Order name: CONS Pharmacy Consult [facility] 10/14 15:16 Order name: Comprehensive Metabolic Panel [facility] 10/14 11:14 Order name: Cardiac monitoring; Complete Time: 12:05 [facility] 10/14 11:14 Order name: EKG - Nurse/Tech; Complete Time: 12:05 [facility] 10/14 11:14 Order name: IV Saline Lock; Complete Time: 12:07 [facility] 10/14 11:14 Order name: Labs collected and sent; Complete Time: 12:07 [facility] 10/14 11:14 Order name: O2 Per Protocol; Complete Time: 12:07 [facility] 10/14 11:14 Order name: O2 Sat Monitoring; Complete Time: 13:19 [facility] 10/14 11:14 Order name: Urine Dipstick-Ancillary (obtain specimen); Complete Time: 12:05 [facility] 10/14 15:16 Order name: Clear Liquid [facility] 10/14 15:24 Order name: CONS Physician Consult [facility] Administered Medications: 11:50 Drug: NS 0.9% 1000 ml Route: IV; Rate: 1 bolus; Site: right antecubital; ae4 18:07 Follow up: IV Status: Completed infusion; IV Intake: 1330ml ae4 12:10 Drug: Zofran 4 mg Route: IVP; Site: right antecubital; ae4 13:44 Follow up: Response: Nausea is decreased ae4 12:12 Drug: morphine 4 mg Route: IVP; Site: right antecubital; ae4 13:44 Follow up: Response: Pain is decreased ae4 13:44 Follow up: Response: RASS: Alert and Calm (0) ae4 12:15 Drug: Rocephin 1 grams Route: IV; Rate: per protocol; Site: right antecubital; ae4 12:20 Follow up: IV Status: Completed infusion; IV Intake: 10ml ae4 12:22 Drug: Cipro 400 mg Volume: 200 ml; Route: IVPB; Infused Over: 60 mins; Site: right ae4 antecubital; 13:30 Follow up: IV Status: Completed infusion; IV Intake: 200ml ae4 12:22 Drug: Flagyl 500 mg Volume: 100 ml; Route: IVPB; Rate: 200 ml/hr; Infused Over: 30 ae4 mins; Site: right antecubital; 18:07 Follow up: IV Status: Completed infusion; IV Intake: 200ml ae4 13:30 Drug: Zofran 4 mg Route: IVP; Site: right antecubital; ae4 18:05 Follow up: Response: Nausea is decreased ae4 13:34 Drug: fentaNYL (PF) 25 mcg Route: IVP; Site: right antecubital; ae4 14:25 Follow up: Response: Pain is unchanged, physician notified ae4 15:50 Drug: Dilaudid 1 mg Route: IVP; Site: right antecubital; ae4 16:00 Follow up: Response: Pain is decreased; RASS: Alert and Calm (0) ae4 15:55 Drug: Rocephin 1 grams Route: IV; Rate: per protocol; Site: right antecubital; ae4 16:00 Follow up: IV Status: Completed infusion; IV Intake: 10ml ae4 18:04 Follow up: IV Status: Completed infusion ae4 20:29 Drug: fentaNYL (PF) 25 mcg {Note: RASS 1.} Route: IVP; Site: right antecubital; ea Disposition: 10/14/19 14:23 Hospitalization ordered by Jose Montano for Inpatient Admission. Preliminary diagnosis are Abdominal tenderness, Diverticulitis of intestine, part unspecified, without perforation or abscess without bleeding - sigmoid. - Bed requested for Telemetry/MedSurg (Inpatient). - Status is Inpatient Admission. hb - Condition is Fair. - Problem is new. - Symptoms have improved. UTI on Admission? No Signatures: Dispatcher [employer] EDMS Khushi Thompson Bjorn Nuno MD MD cha Smirch, Shelby, RN RN Kim Mullen, NIKI PRINCE Janet Lundberg, RN RN Lynette Whalen Andrea, RN RN ae4 Corrections: (The following items were deleted from the chart) 17:03 14:23 Hospitalization Ordered by Jose Montano MD for Inpatient Admission. Preliminary eb diagnosis is Abdominal tenderness; Diverticulitis of intestine, part unspecified, without perforation or abscess without bleeding - sigmoid. Bed requested for Telemetry/MedSurg (Inpatient). Status is Inpatient Admission. Condition is Fair. Problem is new. Symptoms have improved. UTI on Admission? No. [facility] 10/15 13:05 10/14 17:03 10/14/2019 14:23 Hospitalization Ordered by Jose Montano MD for Inpatient bd Admission. Preliminary diagnosis is Abdominal tenderness; Diverticulitis of intestine, part unspecified, without perforation or abscess without bleeding - sigmoid. Bed requested for [facility] ER HOLD. Status is Inpatient Admission. Condition is Fair. Problem is new. Symptoms have improved. UTI on Admission? No. eb 10/15 16:50 13:05 10/14/2019 14:23 Hospitalization Ordered by Jose Montano MD for Inpatient hb Admission. Preliminary diagnosis is Abdominal tenderness; Diverticulitis of intestine, part unspecified, without perforation or abscess without bleeding - sigmoid. Bed requested for Telemetry/MedSurg (Inpatient). Status is Inpatient Admission. Condition is Fair. Problem is new. Symptoms have improved. UTI on Admission? No. bd
[2019-10-14] MEDS ORDERED: ONDANSETRON 4 MG/2 ML VIAL IV PRN (15:11)
[2019-10-14] MEDS ORDERED: HYDROMORPHONE HCL 1 MG/ML INJ ONE (15:47)
[2019-10-14] MEDS ORDERED: Levofloxacin500mg IV 500 MG/100 ML BAG IV SCH (16:00)
[2019-10-14] MEDS ORDERED: NA CHLORIDE 0.9% 1,000 ML IV SCH (16:00)
[2019-10-14] MEDS: MORPHINE 2 MG/ML SYR IV PRN ×2 (18:29→22:30)
[2019-10-14] MEDS ORDERED: ALBUTEROL INHALER 60 PUFF/8 GM IH SCH (21:00)
[2019-10-14] MEDS ORDERED: LITHIUM CARBONATE 300 MG TAB ONE (21:21)
[2019-10-14] MEDS: NA CHLORIDE 0.9% 1,000 ML IV SCH (21:25)
[2019-10-14] MEDS ORDERED: MORPHINE 2 MG/ML SYR ONE (22:06)
[2019-10-14] MEDS: LITHIUM CARBONATE 300 MG TAB PO SCH (22:30)
[2019-10-14] MEDS: metroNIDAZOLE 500 MG TABLET PO SCH (22:30)
[2019-10-14 23:54] VITALS: BMI 22.3
[2019-10-15] MEDS ORDERED: CYCLOBENZAPRINE 10 MG TAB ONE (00:41)
[2019-10-15] MEDS: CYCLOBENZAPRINE 10 MG TAB PO PRN ×2 (00:43→21:24)
[2019-10-15] MEDS ORDERED: ONDANSETRON 4 MG/2 ML VIAL ONE (01:09)
[2019-10-15] MEDS ORDERED: MORPHINE 2 MG/ML SYR ONE ×3 (01:09→11:16)
--- NOTE | 2019-10-15 01:56 | HP ---
Date of Admission: 10/14/2019 Presenting Complaint: Abdominal pain. History Of Present Illness: A 59-year-old with history of anxiety/depression, hypertension, COPD, re current diverticulitis, follow with GI, Dr. Decker, history of hepatitis C and CVA in the past, who presented because of left lower quadrant pain radiating to the right lower quadrant since last 1 day . The patient states it is similar to his previous history of diverticulitis. He states he has been told by his GI doctor, Dr. Decker that he will have the procedure done which included flattening o f some loops of his colon rather than surgery in the clinic. He feels the pain is crampy in nature. Today, he stated that he would like to go home so that he can make his GI appointment tomorrow. He denies any nausea or vomiting. He denies any recent constipation on admission. On presentation, he was noted with mild leukocytosis at 12,000, a CT findings of moderate sigmoid diverticulitis. His cr eatinine remained at 1.3. Past Medical History: Bipolar, hepatitis C, COPD, CVA, osteoarthritis of the knee, right renal cyst with renal calculi, former tobacco user. Past Surgical History: History of right knee replacement and umbilical inguinal hernia repair. Social History: He resides in the community, is , is unemployed. He is a former smoker, but no regular alcohol intake. Family History: Significant for hypertension, but no abdominal cancer. Review of Systems: All systems reviewed x14 were negative except patient admits to recent rash and has been on taking me dication for bedbugs and he has been taking medications over the counter cream for bedbugs. He state s he has recently had washing of all his clothes. Home Medications: See full medication list. Allergies: NO KNOWN DRUG ALLERGY. Physical Examination: Vitals: Significant for blood pressure of 100/69, pulse of 72, respiratory rate of 18, O2 saturation 97 on room air, temperature 97.8. General: Thin built, disheveled bearded male in pullable sheets. HEENT: Head is atraumatic, normocephalic. Pupils equal, reactive to light. Extraocular motor movem ent intact. Neck: No JVD. No carotid bruit. Respiratory: Good air entry. No crepitation. Cardiovascular: S1, S2. Rate and rhythm regular. GI: Obese, soft. Bowel sounds positive. Tenderness over the left lower quadrant extending to the u mbilicus and down to the right lower quadrant. No rebound or guarding. Rectal: Deferred. Also noted mild excoriation of the skin, but no overt rash. Extremities: No pedal edema. No calf tenderness. Integumentary: Diffuse excoriation valdes, but no overt burrows, or scaly skin lesions. Neuro: Patient is alert, oriented, conversant. No neurological focal motor deficit. Laboratory Data: CT of the abdomen and pelvis shows bilateral renal calculi, moderate stranding arou nd the sigmoid diverticulosis consistent with sigmoid diverticulitis. Chest CT shows tortuous and ec tatic aorta, but otherwise clear lungs. WBC 11.8, 90% neutrophils, hemoglobin 14. INR 0.9. [place] m 3.6, creatinine 1.35, magnesium 1.9. AST, alkaline phosphatase normal. ProBNP of 116. Urinalysis negative. Impression: 1.Recurrent moderate sigmoid diverticulitis. 2.Bedbug infestation. 3.History of bipolar disorder. Plan: We will admit patient to observation for more pain control. We start patient on empirical ant ibiotics with Levaquin and Flagyl. The patient insisting he has appointment with GI in the a.m. We will consult Dr. Decker to see patient while patient is in the hospital. We will do gentle IV flui d hydration. We will do adequate pain control with p.r.n. morphine. We will do liquid diet for now. If patient tolerating well in a.m., then we will consider discharge with p.o. antibiotics. We will do gentle IV fluid hydration for presumed acute on chronic renal failure. We will do subcutaneous L ovenox for DVT prophylaxis. Resume home medication regimen for now. We will use Selenium sulfide sh ampoo for bedbugs and place patient in contact isolation. Disposition: Possible hospital stay for 1 night. EO/MODL Voice ID: [id number]
[2019-10-15] MEDS: MORPHINE 2 MG/ML SYR IV PRN ×4 (02:15→23:36)
[2019-10-15] MEDS ORDERED: MORPHINE 2 MG/ML SYR IV ONE (04:08)
[2019-10-15 04:14] LABS: Absolute Lymphocytes (CBC) 0.7 K/uL (0.7-4.9); Basophils % 0.3 % (0-1.3); Hematocrit 36.6 % (39.6-49.0); Lymphocytes % 4.8 % (15.3-44.8); MPV 9.4 fL (7.6-11.3); RBC Red Blood Cell Count 4.01 M/uL (4.33-5.43)
[2019-10-15 04:24] LABS: Albumin 2.8 g/dL (3.4-5.0); Bilirubin Total 0.4 mg/dL (0.2-1.0); Potassium 4.2 mmol/L (3.5-5.1); Protein, Total 5.6 g/dL (6.4-8.2)
[2019-10-15] MEDS ORDERED: TRAMADOL HCL 50 MG TAB PO PRN (05:43)
[2019-10-15] MEDS: NA CHLORIDE 0.9% 1,000 ML IV SCH ×2 (07:20→16:48)
[2019-10-15] MEDS ORDERED: ENOXAPARIN 40 MG/0.4 ML SQ ONE (08:25)
[2019-10-15] MEDS: ENOXAPARIN 40 MG/0.4 ML SQ SCH (08:53)
[2019-10-15] MEDS: LITHIUM CARBONATE 300 MG TAB PO SCH ×2 (09:55→23:38)
[2019-10-15] MEDS: metroNIDAZOLE 500 MG TABLET PO SCH (10:00)
[2019-10-15] MEDS ORDERED: metroNIDAZOLE 500 MG TABLET ONE (10:06)
[2019-10-15] MEDS ORDERED: LITHIUM CARBONATE 300 MG TAB ONE ×2 (10:06→22:38)
--- NOTE | 2019-10-15 10:20 | EKG ---
Test Date: 2019-10-14 Test Time: 11:57:18 Two Needle Machine Operator: ANA MEASUREMENT RESULTS: Intervals: Rate: 67 [place]: 138 QRSD: 102 QT: 432 QTc: 456 [place]: P: 60 WA: 138 QRS: 62 T: 50 INTERPRETIVE STATEMENTS: Normal sinus rhythm Normal ECG Compared to ECG 09/06/2019 22:05:52 No significant changes Electronically Signed On 10-15-19 10:18:39 COLLEGE DIRECTOR by Sebastian Mason
[2019-10-15] MEDS ORDERED: ALBUTEROL INHALER 60 PUFF/8 GM IH PRN (12:17)
--- NOTE | 2019-10-15 12:17 | P.PN ---
Subjective Date of Service: 10/15/19 Primary Care Provider: unknown Chief Complaint: Abdominal pain Subjective: Improving, Doing well Physical Examination - Vital Signs Temperature: 98.3 F Blood Pressure: 113/75 Pulse: 83 Respirations: 17 Pulse Ox (%): 93 - Physical Exam General: Alert, In no apparent distress, Oriented x3, Cooperative HEENT: Atraumatic Neck: Supple Respiratory: Clear to auscultation bilaterally, Normal air movement Cardiovascular: Normal pulses, Regular rate/rhythm Gastrointestinal: Normal bowel sounds, Soft and benign, Non-distended, Tenderness (Less pain to the abdomen) Musculoskeletal: No erythema, No tenderness, No warmth Integumentary: No tenderness/swelling, No erythema, No warmth, No cyanosis Neurological: Normal speech, Normal strength at 5/5 x4 extr, Normal tone, Normal affect - Studies Laboratory Data (last 24 hrs) 10/14/19 12:01: PT 11.3, INR 0.96 10/14/19 12:01: WBC 11.8 H, Hgb 14.0, Hct 43.0, Plt Count 254 10/14/19 12:01: Sodium 139, Potassium 3.6, BUN 21 H, Creatinine 1.35 H, Glucose 106, Magnesium 1.9, Total Bilirubin 0.5, AST 20, ALT 24, Alkaline Phosphatase 63 , Lipase 184 Medications List Reviewed: Yes Assessment & Plan Discharge Plan: Home Plan to discharge in: 24 Hours Physician Review Additional Text: Impression: Abdominal pain secondary to sigmoid diverticulitis Bed bug infestation Acute renal injury likely dehydration Bipolar disorder Plan: Abdominal pain secondary to sigmoid diverticulitis: Continue antibiotic treatment. Will provide medication for pain. Will transition to oral medication. The will advance diet. If patient improves anticipate further advancement in diet within the next 24 hr. Possible discharge as early as tomorrow with clinical improvement. Bed bug infestation: Will continue to treat and monitor closely. Acute renal injury likely dehydration: Continue IV fluids. Will monitor and adjust appropriately. Bipolar disorder: Continue with medication Time Spent Managing Pts Care (In Minutes): 55
[2019-10-15] MEDS: HYDROCODONE/APAP 7.5/325 MG TAB PO PRN ×2 (13:19→21:23)
[2019-10-15] MEDS ORDERED: HYDROCODONE/APAP 7.5/325 MG TAB ONE (13:19)
[2019-10-15] MEDS: METRONIDAZOLE 500mg IVPB 500 MG/100 ML BAG IV SCH (16:48)
[2019-10-15 17:12] VITALS: O2SAT 97
[2019-10-15] MEDS: Levofloxacin500mg IV 500 MG/100 ML BAG IV SCH (23:37)
[2019-10-16] MEDS: METRONIDAZOLE 500mg IVPB 500 MG/100 ML BAG IV SCH ×3 (01:55→16:00)
[2019-10-16] MEDS: MORPHINE 2 MG/ML SYR IV PRN ×2 (05:09→09:06)
[2019-10-16] MEDS: HYDROCODONE/APAP 7.5/325 MG TAB PO PRN ×3 (06:18→18:12)
[2019-10-16 06:50] LABS: Absolute Lymphocytes (CBC) 0.5 K/uL (0.7-4.9); Basophils % 0.2 % (0-1.3); Hematocrit 36.2 % (39.6-49.0); Lymphocytes % 3.7 % (15.3-44.8); MPV 9.4 fL (7.6-11.3); RBC Red Blood Cell Count 3.97 M/uL (4.33-5.43)
[2019-10-16 07:12] LABS: Potassium 4.4 mmol/L (3.5-5.1)
[2019-10-16] MEDS: NA CHLORIDE 0.9% 1,000 ML IV SCH ×2 (07:54→22:13)
[2019-10-16] MEDS: ENOXAPARIN 40 MG/0.4 ML SQ SCH (07:57)
[2019-10-16] MEDS: LITHIUM CARBONATE 300 MG TAB PO SCH ×2 (10:00→22:12)
--- NOTE | 2019-10-16 11:29 | P.PN ---
Subjective Date of Service: 10/16/19 Primary Care Provider: unknown Chief Complaint: Abdominal pain Subjective: No new changes, No C/O voiced, Tolerating diet (still some abdominal pain but improving -state he did not have a shower yesterday) Review of Systems 10-point ROS is otherwise unremarkable Physical Examination - Vital Signs Temperature: 97.4 F Blood Pressure: 116/70 Pulse: 95 Respirations: 18 Pulse Ox (%): 94 - Physical Exam General: Alert, In no apparent distress, Oriented x3 (bearded) HEENT: Atraumatic, Normocephalic, PERRLA Neck: Supple, 2+ carotid pulse no bruit Respiratory: Clear to auscultation bilaterally, Diminished Cardiovascular: Normal pulses, Regular rate/rhythm Gastrointestinal: Normal bowel sounds, Soft and benign, Tenderness (mild lower abd ) Integumentary: No rashes, No breakdown Neurological: Normal gait, Normal speech, Normal strength at 5/5 x4 extr - Studies Laboratory Last Values WBC 13.9 K/uL (4.3-10.9) H 10/16/19 05:50 RBC 3.97 M/uL (4.33-5.43) L 10/16/19 05:50 Hgb 11.8 g/dL (13.6-17.9) L 10/16/19 05:50 Hct 36.2 % (39.6-49.0) L 10/16/19 05:50 MCV 91.3 fL (80-100) 10/16/19 05:50 MCH 29.8 pg (27.0-35.0) 10/16/19 05:50 MCHC 32.6 g/dL (32.0-36.0) 10/16/19 05:50 RDW 15.4 % (12.1-15.2) H 10/16/19 05:50 Plt Count 190 K/uL (152-406) 10/16/19 05:50 MPV 9.4 fL (7.6-11.3) 10/16/19 05:50 Neutrophils % 84.7 % (41.7-73.7) H 10/16/19 05:50 Lymphocytes % 3.7 % (15.3-44.8) L 10/16/19 05:50 Monocytes % 9.3 % (3.3-12.3) 10/16/19 05:50 Eosinophils % 2.1 % (0-4.4) 10/16/19 05:50 Basophils % 0.2 % (0-1.3) 10/16/19 05:50 Absolute Neutrophils 11.8 K/uL (1.8-8.0) H 10/16/19 05:50 Absolute Lymphocytes 0.5 K/uL (0.7-4.9) L 10/16/19 05:50 Absolute Monocytes 1.3 K/uL (0.1-1.3) 10/16/19 05:50 Absolute Eosinophils 0.3 K/uL (0-0.5) 10/16/19 05:50 Absolute Basophils 0.0 K/uL (0-0.5) 10/16/19 05:50 Morphology Comment Not seen (NOT SEEN) 10/14/19 12:01 PT 11.3 SECONDS (9.5-12.5) 10/14/19 12:01 INR 0.96 10/14/19 12:01 Sodium 140 mmol/L (136-145) 10/16/19 05:50 Potassium 4.4 mmol/L (3.5-5.1) 10/16/19 05:50 Chloride 112 mmol/L (98-107) H 10/16/19 05:50 Carbon Dioxide 22 mmol/L (21-32) 10/16/19 05:50 BUN 7 mg/dL (7-18) 10/16/19 05:50 Creatinine 0.88 mg/dL (0.55-1.3) 10/16/19 05:50 Estimated GFR 89 mL/min (=/>90) L 10/16/19 05:50 Glucose 106 mg/dL (74-106) 10/16/19 05:50 Calcium 8.6 mg/dL (8.5-10.1) 10/16/19 05:50 Magnesium 2.0 mg/dL (1.8-2.4) 10/16/19 05:50 Total Bilirubin 0.4 mg/dL (0.2-1.0) 10/15/19 03:38 Direct Bilirubin 0.1 mg/dL (0-0.2) 10/14/19 12:01 AST 13 U/L (15-37) L 10/15/19 03:38 ALT 17 U/L (12-78) 10/15/19 03:38 Alkaline Phosphatase 45 U/L (45-117) 10/15/19 03:38 Rapid Troponin I < 0.02 ng/mL (0.0-0.045) 10/14/19 12:01 NT-Pro-B Natriuret Pep 116 pg/mL (<125) 10/14/19 12:01 Serum Total Protein 5.6 g/dL (6.4-8.2) L 10/15/19 03:38 Albumin 2.8 g/dL (3.4-5.0) L D 10/15/19 03:38 Globulin 2.8 g/dL (2.3-3.5) 10/15/19 03:38 Albumin/Globulin Ratio 1.0 (1.1-1.8) L 10/15/19 03:38 Lipase 184 U/L (73-393) 10/14/19 12:01 Urine pH 5.5 (5.0-7.0) 10/14/19 12:03 Ur Specific [place] 1.025 (1.005-1.030) 10/14/19 12:03 Urine Ketones Trace (NEG) 10/14/19 12:03 Urine Blood Negative (NEG) 10/14/19 12:03 Urine Nitrite Negative (NEG) 10/14/19 12:03 Ur Leukocyte Esterase Negative (NEG) 10/14/19 12:03 Urine Glucose Negative (NEG) 10/14/19 12:03 Urine Total Protein Negative (NEG) 10/14/19 12:03 Microbiology Data (last 24 hrs): 10/14/19 11:58 Clean Catch Urine [place] Count - Final 10/14/19 11:58 Clean Catch Urine - Final No growth. Medications List Reviewed: Yes Assessment & Plan Physician Review Additional Text: Impression: Abdominal pain secondary to sigmoid diverticulitis Bed bug infestation Acute renal injury likely dehydration Bipolar disorder Plan: -Improving , still some abdominal pain but overall intensity improving -Advised soft diet for now -will add laxative to regime -will d/w with pharmacy for permethrim with shower for bedbug eradication -plan for dc home today Addendum - called for pt with dizziness after earlier eval . patient c/o of chest pain , substernal location now , EKG unremarkable , vitals stable with no orthostatcis - will obtain CE now and follow trend -will hold dc plans for now -start gentle IVF
[2019-10-16] MEDS: CYCLOBENZAPRINE 10 MG TAB PO PRN (22:11)
[2019-10-17] MEDS: HYDROCODONE/APAP 7.5/325 MG TAB PO PRN ×2 (00:10→08:58)
[2019-10-17] MEDS: METRONIDAZOLE 500mg IVPB 500 MG/100 ML BAG IV SCH ×2 (00:10→08:54)
[2019-10-17] MEDS: Levofloxacin500mg IV 500 MG/100 ML BAG IV SCH (00:10)
[2019-10-17 05:49] LABS: Absolute Lymphocytes (CBC) 0.8 K/uL (0.7-4.9); Basophils % 0.2 % (0-1.3); Hematocrit 34.2 % (39.6-49.0); Lymphocytes % 5.8 % (15.3-44.8); MPV 9.3 fL (7.6-11.3); RBC Red Blood Cell Count 3.78 M/uL (4.33-5.43)
[2019-10-17 06:10] LABS: BUN Blood Urea Nitrogen 5 mg/dL (7-18); Bicarbonate 22 mmol/L (21-32); Glucose Level 82 mg/dL (74-106); Potassium 3.9 mmol/L (3.5-5.1); Sodium Level 140 mmol/L (136-145); Troponin I < 0.02 ng/mL (0.0-0.045)
[2019-10-17] MEDS: LITHIUM CARBONATE 300 MG TAB PO SCH (08:59)
[2019-10-17] MEDS: ENOXAPARIN 40 MG/0.4 ML SQ SCH (09:01)
[2019-10-17 09:21] VITALS: BP 148/90; TEMP 98
--- NOTE | 2019-10-19 13:50 | EKG ---
Test Date: 2019-10-16 Test Time: 11:08:52 Director Of Payroll: LISA MEASUREMENT RESULTS: Intervals: Rate: 85 [place]: 136 QRSD: 104 QT: 398 QTc: 473 [place]: P: 52 CO: 136 QRS: 61 T: 36 INTERPRETIVE STATEMENTS: Normal sinus rhythm Normal ECG Compared to ECG 10/14/2019 11:57:18 No significant changes Electronically Signed On 10-19-19 13:47:19 OUTPATIENT DIETITIAN by Hoang Burns
--- NOTE | 2019-11-07 07:42 | P.DS ---
Discharge Date: 10/17/19 Primary Care Provider: unknown Disposition: ROUTINE DISCHARGE Discharge Condition: GOOD Reason for Admission: Abdominal pain Brief History of Present Illness: A 59-year-old with history of anxiety/depression, hypertension, COPD, recurrent diverticulitis, follow with GI, Dr. Decker, history of hepatitis C and CVA in the past, who presented because of left lower quadrant pain radiating to the right lower quadrant since last 1 day. The patient states it is similar to his previous history of diverticulitis. He states he has been told by his GI doctor , Dr. Decker that he will have the procedure done which included flattening of some loops of his colon rather than surgery in the clinic. He feels the pain is crampy in nature. Today, he stated that he would like to go home so that he can make his GI appointment tomorrow. He denies any nausea or vomiting. He denies any recent constipation on admission. On presentation, he was noted with mild leukocytosis at 12,000, a CT findings of moderate sigmoid diverticulitis. His creatinine remained at 1.3. Hospital Course: Patient was treated with IV antibiotic therapy. Patient's clinical symptoms have improved. He is given IV fluids and IV antibiotic therapy. Patient was started on a clear liquid diet and this was advanced and he has tolerated well. Patient is wanting to go home at this time. We will go ahead and discharge patient home with outpatient follow-up in 1-2 weeks. Vital Signs/Physical Exam: Temp Pulse Resp BP Pulse Ox 98 F 91 H 18 148/90 H 94 10/17/19 08:00 10/17/19 08:00 10/17/19 08:58 10/17/19 08:00 10/17/19 08:58 General: Alert, In no apparent distress, Oriented x3 Laboratory Data at Discharge: WBC 13.2 K/uL (4.3-10.9) H 10/17/19 05:09 Hgb 11.6 g/dL (13.6-17.9) L 10/17/19 05:09 Hct 34.2 % (39.6-49.0) L 10/17/19 05:09 Plt Count 200 K/uL (152-406) 10/17/19 05:09 PT 11.3 SECONDS (9.5-12.5) 10/14/19 12:01 INR 0.96 10/14/19 12:01 Sodium 140 mmol/L (136-145) 10/17/19 05:09 Potassium 3.9 mmol/L (3.5-5.1) 10/17/19 05:09 BUN 5 mg/dL (7-18) L 10/17/19 05:09 Creatinine 0.76 mg/dL (0.55-1.3) 10/17/19 05:09 Glucose 82 mg/dL (74-106) 10/17/19 05:09 Magnesium 2.0 mg/dL (1.8-2.4) 10/17/19 05:09 Total Bilirubin 0.4 mg/dL (0.2-1.0) 10/15/19 03:38 AST 13 U/L (15-37) L 10/15/19 03:38 ALT 17 U/L (12-78) 10/15/19 03:38 Alkaline Phosphatase 45 U/L (45-117) 10/15/19 03:38 Troponin I < 0.02 ng/mL (0.0-0.045) 10/17/19 05:09 Lipase 184 U/L (73-393) 10/14/19 12:01 Home Medications: Cyclobenzaprine [Flexeril*] 1 tab PO DAILY 10/24/19 [place] Carbonate [[place] Carbonate ER] 1 tab PO BID 10/24/19 Memantine HCl 1 tab PO BID 10/24/19 Mirtazapine 30 mg PO BEDTIME 10/24/19 Temazepam [Restoril*] 15 mg PO BEDTIME PRN 10/24/19 Venlafaxine HCl [Effexor Xr] 1 cap PO DAILY 10/24/19 Ciprofloxacin HCl [Cipro 500 MG Tablet] 500 mg PO DAILY 14 Days tab 10/30/19 Codeine/APAP [Tylenol W/Codeine #3 tab] 1 tab PO Q6HP PRN #30 tab 10/30/19 metroNIDAZOLE [Flagyl] 500 mg PO Q8H 14 Days tablet 10/30/19 Patient Discharge Instructions: OK TO DC IV AND DC HOME. FOLLOW-UP WITH PCP IN 1-2 WEEKS. FOLLOW-UP WITH GI IN 1-2 WEEKS TO ARRANGE FOR COLONOSCOPY IN 6-12 WEEKS. CALL ME AT [phone] IF ANY QUESTIONS REGARDING HOSPITAL STAY. RETURN TO THE ER IF SYMPTOMS WORSENS. OUTPT COLONOSCOPY IN 6-12 WEEKS WITH GI PHYSICIAN Diet: Regular Activity: Fall precautions Time spent managing pt's care (in minutes): 25
== END 2019-10-17 10:43 | disposition home or self-care (01) | DRG 392 ==
LOC: ER 11:05 → ERHOLD 15:30 → 4TH 10-15 16:09
PROVIDERS: ADMIT Internal Medicine; ATTEND Internal Medicine
DX: K57.32 Diverticulitis of large intestine without perforation or abscess without bleeding (principal); F41.8 Other specified anxiety disorders; I10 Essential (primary) hypertension; J44.9 Chronic obstructive pulmonary disease, unspecified; Z86.73 Personal history of transient ischemic attack (TIA), and cerebral infarction without residual deficits; Z86.19 Personal history of other infectious and parasitic diseases; T14.8XXA Other injury of unspecified body region, initial encounter; W57.XXXA Bitten or stung by nonvenomous insect and other nonvenomous arthropods, initial encounter; Y92.009 Unspecified place in unspecified non-institutional (private) residence as the place of occurrence of the external cause
CPT/HCPCS: 36415; 71045; 74177; 80048; 80053; 80076; 81003; 83605; 83690; 83735; 83880; 84484; 85025; 85610; 87086; 87088; 93005; 96361; 96365; 96366; 96368; 96375; 99285; J0696; J0744; J1170; J1650; J2270; J2405; J3010; J7030; Q9967

== ENCOUNTER 2019-10-24 11:07 | Inpatient (IN) | payer OTHER ==
--- OUTSIDE RECORDS SUMMARY | 2019-10-24 11:09 | XMS REPORT ---
[...] Status Dosage System Date Date Albuterol Sulfate [facility] 87504246519 108 (90 Base) Aug 01, 2 puffs HFA MCG/ACT 2018 Inhalation every 6 hours prn sob Incruse Ellipta [facility] 05435904666 62.5 MCG/INH Aug 01April Active 1 puff Inhalation Once 2018 12, a day 2019 blood glucose ND 0 n/s SC once a January Active one test strip 2018 Alcohol Prep Pads ND 0 topical once a January Active as day , directed 2018 2018 Lithobid [facility] 57129022697 300 MG Orally Active 1 tablet twice a day Seroquel ND 05664415785 400 MG Orally Dec 14, Active 1 tablet Once a day at 2017 bedtime Sildenafil ND 01980313920 100 MG Orally Oct Inactive 1 tablet Citrate Once a day 2018 Atorvastatin [facility] 19718681338 20 MG Orally Active 1 tablet Calcium Once a day Fish Oil [facility] 27302062976 1000 MG Orally Active 1 capsule Once a day Super B-Complex [facility] 72556933329 - Orally once a Active as day directed D3 Maximum [facility] 26163616544 5000 UNIT Active 1 capsule Strength Orally Once a day Memantine HCl [facility] 64492975101 10 MG Orally Active 1 tablet Twice a day Atorvastatin [facility] 92341659240 40 MG Orally Active 1 tablet Calcium Once a day Vitamin B12 [facility] 27535294547 1000 MCG Orally Active 1 tablet Once a day Cyanocobalamin [facility] 48074480578 2500 MCG Active as Sublingual once directed a day Co-Enzyme Q-10 [facility] 37968318156 100 MG Orally Active 2 capsule Once a day with a meal Zetia [facility] 87158910976 10 MG Orally Active 1 tablet Once a day Lancets Super NDC 0 n/s finger January Active one Thin stick once 2018 Diclofenac Sodium [facility] 08915529423 75 MG Orally Active 1 tablet Twice a day prn with food pain or milk Trazodone HCl [facility] 90400691674 100 MG Orally Active 1 tablet Once a day at bedtime Ascorbic Acid [facility] 95922421334 500 MG Orally Active 1 tablet twice a day Cialis [facility] 05741146459 20 MG Orally Aug 01Aug Active 1 tablet 2018 Thiamine [facility] 65249791542 50 MG Orally Active 2 capsules Once a day Vitamin B12 [facility] 13260013264 1000 MCG Orally Active 1 tablet Once a day Melatonin [facility] 00619614206 3 MG Orally Active 1 tablet Once a day at bedtime as needed with food Ezetimibe [facility] 68791598677 10 MG Orally Nov 15, Active 1 tablet Once a day 2018 Results Name Result Date Reference Range Unit Abnormality Flag Ct Low Dose Chest Screening Summary Purpose eClinicalWorks Submission
--- OUTSIDE RECORDS SUMMARY | 2019-10-24 11:09 | XMS REPORT ---
:1960 [facility] Address [address] [place] [address] Care Team Providers Name Role Phone Unavailable Unavailable Unavailable Problems This patient has no known problems. Allergies, Adverse Reactions, Alerts This patient has no known allergies or adverse reactions. Medications This patient has no known medications.
--- OUTSIDE RECORDS SUMMARY | 2019-10-24 11:10 | XMS REPORT ---
[...] End Status Dosage System Date Date Cipro [facility] 73159844013 500 MG Orally Nov Active 1 tablet every 12 hrs 2018 Metronidazole ND 28119222175 500 MG Orally Nov Active 1 tablet every [address] [facility] 08659130785 300 MG Orally Active 1 tablet twice a day Atorvastatin ND 86553905715 20 MG Orally Active 1 tablet Calcium Once a day Co-Enzyme Q-10 ND 81603961918 100 MG Orally Active 2 capsule Once a day with a meal Melatonin [facility] 05777222847 3 MG Orally Active 1 tablet Once a day at bedtime as needed with food Cyanocobalamin [facility] 51695241643 2500 MCG Active as Sublingual once directed a day Memantine HCl ND 48935503674 10 MG Orally Active 1 tablet Twice a day Trazodone HCl [facility] 33595852617 100 MG Orally Active 1 tablet Once a day at bedtime Atorvastatin [facility] 29836142852 40 MG Orally Active 1 tablet Calcium Once a day Fish Oil ND 39535893621 1000 MG Orally Active 1 capsule Once a day Ranitidine HCl [facility] 57128171431 150 MG Active TAKE 1 TABLET BY MOUTH TWICE A DAY Thiamine [facility] 45680806454 50 MG Orally Active 2 capsules Once a day Super B-Complex [facility] 66896315622 - Orally once a Active as day directed Ezetimibe ND 77594661253 10 MG Orally Nov 15, Active 1 tablet Once a day [address] [facility] 54477572312 5000 UNIT Active 1 capsule Strength Orally Once a day Cyclobenzaprine ND 68855553393 10 MG Orally Sep 06Sep Active 1 tablet HCl once a day at 2018 11, as needed bedtime [address] [facility] 80742461098 500 MG Orally Active 1 tablet twice a day Lancets Super Thin NDC 0 n/s finger January Active one stick once [address] [facility] 37489138062 1000 MCG Orally Active 1 tablet Once a day Albuterol Sulfate [facility] 63962632389 108 (90 Base) Aug 01, Active 2 puffs HFA MCG/ACT 2018 Inhalation every 6 hours prn sob Seroquel ND 58023214583 400 MG Orally Dec 14, Active 1 tablet Once a day at 2018 bedtime blood glucose test NDC 0 n/s SC once a January Active one strip day [address] [facility] 67122849251 75 MG Orally Active 1 tablet Twice a day prn with food pain or milk Zetia [facility] 56650860426 10 MG Orally Active 1 tablet Once a day Vitamin B12 [facility] 33490205325 1000 MCG Orally Active 1 tablet Once a day Incruse Ellipta [facility] 61253324349 62.5 MCG/INH Aug 01April Active 1 puff Inhalation Once 2019 12, a day 2020 Results No Known Results Summary Purpose eClinicalWorks Submission
[2019-10-24] MEDS ORDERED: NA CHLORIDE 0.9% 1,000 ML ONE ×2 (11:35→13:47)
[2019-10-24] MEDS ORDERED: FENTANYL CITR 100 MCG/2 ML ONE (11:53)
[2019-10-24 11:54] LABS: ALT/SGPT 16 U/L (12-78); AST/SGOT 11 U/L (15-37); Alkaline Phosphatase 46 U/L (45-117); BUN Blood Urea Nitrogen 8 mg/dL (7-18); Bicarbonate 22 mmol/L (21-32); Bilirubin Direct < 0.1 mg/dL (0-0.2); Bilirubin Total 0.2 mg/dL (0.2-1.0); Glucose Level 138 mg/dL (74-106); Lipase 159 U/L (73-393); Potassium 4.4 mmol/L (3.5-5.1); Protein, Total 6.7 g/dL (6.4-8.2); Sodium Level 140 mmol/L (136-145)
[2019-10-24] MEDS ORDERED: ONDANSETRON 4 MG/2 ML VIAL ONE (11:54)
[2019-10-24 12:03] LABS: Absolute Lymphocytes (CBC) 1.1 K/uL (0.7-4.9); Basophils % 0.5 % (0-1.3); Hematocrit 37.5 % (39.6-49.0); Lymphocytes % 10.2 % (15.3-44.8); MPV 8.4 fL (7.6-11.3); RBC Red Blood Cell Count 4.13 M/uL (4.33-5.43)
--- NOTE | 2019-10-24 12:59 | RAD REPORT ---
EXAM DESCRIPTION: CT - Abdomen Pelvis W Contrast - 10/24/2019 12:36 pm CLINICAL HISTORY: Abdominal pain COMPARISON: September 2019 TECHNIQUE: Computed axial tomography of the abdomen pelvis was obtained. 100 cc Isovue-300 was admin istered intravenously. Oral contrast was not requested which limits evaluation of bowel. All CT scans are performed using dose optimization technique as appropriate and may include automated exposure control or mA/KV adjustment according to patient size. FINDINGS: The liver, spleen, pancreas, and adrenals appear unremarkable Stable right renal cyst. Small nonobstructing bilateral renal calculi Spondylolysis L5. Small inguinal hernias contain fat Stranding adjacent to the sigmoid colon. A 5 x 1 centimeter ill-defined fluid collection lies anterio r to the sigmoid colon. It contains several air bubbles. A a 3 x 1 centimeter fluid collection it is present within the posterior pelvis adjacent to the rectu m. IMPRESSION: Sigmoid diverticulitis. Micro perforation is present. 5 x 1 centimeter ill-defined fluid collection anterior to the sigmoid colon likely early abscess. 3 x 1 centimeter fluid collection within the posterior pelvis likely additional abscess
[2019-10-24 13:20] LABS: Urine Blood NEGATIVE (NEG); Urine Glucose NEGATIVE (NEG); Urine Protein NEGATIVE (NEG); Urine Specific Gravity 1.015 (1.005-1.030); Urine pH 6.5 (5.0-7.0)
[2019-10-24 13:39] LABS: Urine Bacteria <20 /HPF (NONE SEEN); Urine RBC NONE SEEN /HPF (NONE SEEN)
--- NOTE | 2019-10-24 13:41 | RAD REPORT ---
EXAM DESCRIPTION: RAD - Chest Single View - 10/24/2019 1:36 pm CLINICAL HISTORY: abdominal pain Chest pain. COMPARISON: Chest Single View dated 10/14/2019; Chest Single View dated 09/06/2019; Chest Single Vie w dated 04/21/2019; Chest Pa And Lat (2 Views) dated 02/28/2019 FINDINGS: Portable technique limits examination quality. Mild linear subsegmental atelectasis is present the right lung base. The lungs are otherwise clear. T he heart is normal in size. No displaced fractures. IMPRESSION: No acute intrathoracic process suspected.
[2019-10-24] MEDS ORDERED: METRONIDAZOLE 500mg IVPB 500 MG/100 ML BAG IV ONE (13:47)
[2019-10-24] MEDS ORDERED: CEFOXITIN/SWI 1gm 1 GM/10 ML SYR ONE ×2 (13:47→15:00)
--- NOTE | 2019-10-24 13:56 | ER ---
Nurse's Notes [facility] Name: Gregory Dumont Age: 59 yrs Sex: Male : 1960 Arrival Date: 10/24/2019 Time: 11:10 Bed 18 Private MD: Diagnosis: Diverticulitis of large intestine with perforation and abscess without bleeding Presentation: 10/24 11:11 Presenting complaint: Patient states: LLQ pain since this morning, denies vomiting or iw diarrhea, denies urinary s/s, recently diagnosed with diverticulitis, started on abx. Transition of care: patient was not received from another setting of care. Onset of symptoms was October 24, 2019. Risk Assessment: Do you want to hurt yourself or someone else? Patient reports no desire to harm self or others. Initial Sepsis Screen: Does the patient meet any 2 criteria? No. Patient's initial sepsis screen is negative. Does the patient have a suspected source of infection? No. Patient's initial sepsis screen is negative. Care prior to arrival: None. 11:11 Method Of Arrival: EMS: [facility] iw 11:11 Acuity: [facility] 3 iw Historical: - Allergies: 11:14 NKA; iw - Home Meds: 11:14 None [Active]; iw - PMHx: 11:14 ADD/ADHD; Bipolar disorder; CVA; HEP C; HYPOGLYCEMIA; Irregular heart rate; iw - PSHx: 11:14 Knee surgery; iw - Immunization history:: Adult Immunizations not up to date. - Social history:: Smoking status: . - Ebola Screening: : Patient negative for fever greater than or equal to 101.5 degrees Fahrenheit, and additional compatible Ebola Virus Disease symptoms Patient denies exposure to infectious person Patient denies travel to an Ebola-affected area in the 21 days before illness onset No symptoms or risks identified at this time. Screenin:30 Abuse screen: Denies threats or abuse. Nutritional screening: No deficits noted. em Tuberculosis screening: No symptoms or risk factors identified. Fall Risk None identified. Assessment: 11:25 General: Appears in no apparent distress. comfortable, Behavior is calm, cooperative, em Denies fever. Pain: Complains of pain in left lower quadrant Pain currently is 10 out of 10 on a pain scale. Pain began this morning. Neuro: Level of Consciousness is awake, alert, obeys commands, Oriented to person, place, time, situation, Appropriate for age. Cardiovascular: Capillary refill < 3 seconds Patient's skin is warm and dry. Respiratory: Airway is patent Respiratory effort is even, unlabored, Respiratory pattern is regular, symmetrical. GI: Abdomen is round non-distended, Bowel sounds present X 4 quads. Abd is soft X 4 quads Abdomen is tender to palpation in right lower quadrant and left lower quadrant Patient currently denies nausea, vomiting. Derm: Skin is intact, is healthy with good turgor, Skin is pink, warm \T\ dry. Musculoskeletal: Capillary refill < 3 seconds, Range of motion: intact in all extremities. 12:30 Reassessment: Patient appears in no apparent distress at this time. Patient and/or em family updated on plan of care and expected duration. Pain level reassessed. Patient is alert, oriented x 3, equal unlabored respirations, skin warm/dry/pink. rates pain 8/10 Patient states feeling better. 14:11 Reassessment: Patient appears in no apparent distress at this time. Dr. Griffith at em bedside. Vital Signs: 11:16 BP 99 / 62; Pulse 67; Resp 16; Temp 98.2; Pulse Ox 100% ; Weight 73.48 kg; Height 5 ft. iw 11 in. (180.34 cm); Pain 10/10; 13:02 BP 107 / 66; Pulse 60; Resp 18; Pulse Ox 98% on R/A; Pain 8/10; em 14:50 BP 114 / 72; Pulse 64; Resp 18; Pulse Ox 100% on R/A; Pain 8/10; em 11:16 Body Mass Index 22.59 (73.48 kg, 180.34 cm) iw ED Course: 11:10 Patient arrived in ED. iw 11:10 Bjorn Boyce PA is PHCP. cp 11:10 Mick Arshad MD is Attending Physician. cp 11:12 Triage completed. iw 11:16 Arm band placed on. iw 11:17 Fredy Vasquez, RN is Primary Nurse. em 11:30 Patient has correct armband on for positive identification. Placed in gown. Bed in low em position. Call light in reach. Side rails up X2. Pulse ox on. NIBP on. 11:30 Initial lab(s) drawn, by me, sent to lab. Inserted saline lock: 22 gauge in right em forearm, using aseptic technique. Blood collected. 12:18 Fredy Vasquez, RN is Primary Nurse. em 12:35 CT Abd/Pelvis - IV Contrast Only In Process Unspecified. EDMS 13:36 XRAY Chest (1 view) In Process Unspecified. EDMS 13:55 Richard Mariscal MD is Hospitalizing Provider. cp 15:09 No provider procedures requiring assistance completed. Patient admitted, IV remains in em place. Administered Medications: 11:36 Drug: NS 0.9% 1000 ml Route: IV; Rate: 1 bolus; Site: right forearm; em 12:00 Drug: Zofran 4 mg Route: IVP; Site: right forearm; em 13:07 Follow up: Response: No adverse reaction em 12:02 Drug: fentaNYL (PF) 25 mcg Route: IVP; Site: right forearm; em 13:07 Follow up: Response: No adverse reaction; Marked relief of symptoms; Pain is decreased; em RASS: Alert and Calm (0) 12:18 Not Given (Other Intervention Used): fentaNYL (PF) 25 mcg IM once; RASS on ADMIN: em Combtv4, Very Agttd3, Agttd2, Rstlss1, AlertClm0, Drwsy-1, Lt Sdtn-2, Mod Sdtn-3, Dp Sdtn-4, UnArsble-5 13:50 Drug: Mefoxin 2 grams {Note: given IVP per protocol.} Route: IVPB; Infused Over: 30 em mins; Site: right forearm; 13:56 Drug: metroNIDAZOLE 500 mg Volume: 100 ml; Route: IVPB; Infused Over: 30 mins; Site: em right forearm; 14:50 Follow up: Response: No adverse reaction; IV Status: Completed infusion; IV Intake: em 100ml 13:57 Drug: NS 0.9% 1000 ml Route: IV; Rate: 1 bolus; Site: right forearm; em 14:52 Follow up: IV Status: Completed infusion; IV Intake: 1000ml em 14:53 Drug: fentaNYL (PF) 25 mcg {Note: RASS-0.} Route: IVP; Site: right forearm; em 15:26 Follow up: Response: No adverse reaction; Marked relief of symptoms; Pain is decreased; em RASS: Alert and Calm (0) Intake: 14:50 IV: 100ml; Total: 100ml. em 14:52 IV: 1000ml; Total: 1100ml. em Outcome: 13:56 Decision to Hospitalize by Provider. cp 15:09 Admitted to Med/surg accompanied by tech, via stretcher, room 208, with chart, Report em called to NIKI Travis 15:09 Condition: good 15:09 Instructed on the need for admit, Demonstrated understanding of instructions. 15:32 Patient left the ED. em Signatures: Dispatcher [facility] Fredy Najera RN RN em Lima Brown RN RN iw Bjorn Boyce, PA PA cp Corrections: (The following items were deleted from the chart) 14:53 14:53 fentaNYL (PF) 25 mcg IVP in right antecubital em em
--- NOTE | 2019-10-24 13:56 | EDPHYS ---
Physician Documentation [facility] Name: Gregory Dumont Age: 59 yrs Sex: Male : 1960 Arrival Date: 10/24/2019 Time: 11:10 Bed 18 Private MD: ED Physician Mick Arshad HPI: 10/24 11:13 This 59 yrs old Male presents to ER via EMS with complaints of Abdominal Pain.cp 11:13 The patient presents with abdominal pain in the left lower quadrant. cp 11:13 Onset: The symptoms/episode began/occurred this morning. The symptoms radiate to the left flank. Associated signs and symptoms: Pertinent negatives: blood in stools, chest pain, constipation, diarrhea, fever, shortness of breath, testicular pain, vomiting. Severity of pain: in the emergency department the pain is unchanged despite home interventions. 11:13 The patient has been recently been admitted at [facility], for similar complaints, diagnosed with diverticulitis. Patient reports he finished prescribed antibiotics. Hospitalized 10-15-2019. Historical: - Allergies: 11:14 NKA; iw - Home Meds: 11:14 None [Active]; iw - PMHx: 11:14 ADD/ADHD; Bipolar disorder; CVA; HEP C; HYPOGLYCEMIA; Irregular heart rate; iw - PSHx: 11:14 Knee surgery; iw - Immunization history:: Adult Immunizations not up to date. - Social history:: Smoking status: . - Ebola Screening: : Patient negative for fever greater than or equal to 101.5 degrees Fahrenheit, and additional compatible Ebola Virus Disease symptoms Patient denies exposure to infectious person Patient denies travel to an Ebola-affected area in the 21 days before illness onset No symptoms or risks identified at this time. ROS: 11:20 Constitutional: Negative for body aches, chills, fever, poor PO intake. cp 11:20 Eyes: Negative for injury, pain, redness, and discharge. cp 11:20 ENT: Negative for drainage from ear(s), ear pain, sore throat, difficulty swallowing, difficulty handling secretions. 11:20 Cardiovascular: Negative for chest pain, edema, palpitations. 11:20 Respiratory: Negative for cough, shortness of breath, wheezing. 11:20 Abdomen/GI: Positive for abdominal pain, of the left lower quadrant, Negative for vomiting, diarrhea, constipation, black/tarry stool, rectal bleeding. 11:20 Back: Negative for pain at rest, pain with movement, radiated pain. 11:20 : Negative for urinary symptoms, testicular pain 11:20 Skin: Negative for rash. 11:20 Neuro: Negative for altered mental status, headache. 11:20 All other systems are negative. Exam: 11:25 Constitutional: The patient appears in no acute distress, alert, awake, cp non-diaphoretic, non-toxic, well developed, well nourished. 11:25 Head/Face: Normocephalic, atraumatic. cp 11:25 Eyes: Periorbital structures: appear normal, Conjunctiva: normal, no exudate, no injection, Sclera: no appreciated abnormality, Lids and lashes: appear normal, bilaterally. 11:25 ENT: External ear(s): are unremarkable, Nose: is normal, Mouth: Lips: moist, Oral mucosa: pink and intact, moist, Posterior pharynx: is normal, airway is patent, no erythema, no exudate. 11:25 Chest/axilla: Inspection: normal, Palpation: is normal, no crepitus, no tenderness. 11:25 Cardiovascular: Rate: normal, Rhythm: regular, Heart sounds: murmur, not appreciated, Edema: is not appreciated, JVD: is not appreciated. 11:25 Respiratory: the patient does not display signs of respiratory distress, Respirations: normal, no use of accessory muscles, no retractions, no splinting, no tachypnea, labored breathing, is not present, Breath sounds: are clear throughout, no decreased breath sounds, no stridor, no wheezing. 11:25 Abdomen/GI: Inspection: abdomen appears normal, Bowel sounds: active, all quadrants, Palpation: soft, in all quadrants, moderate abdominal tenderness, in the left lower quadrant, rebound tenderness, is not appreciated, voluntary guarding, is elicited in the left lower quadrant, involuntary guarding, is not appreciated. 11:25 Back: pain, is absent, ROM is normal. 11:25 Skin: no rash present. 11:25 Neuro: Orientation: to person, place \T\ time. Mentation: is normal, Motor: moves all fours, strength is normal. Vital Signs: 11:16 BP 99 / 62; Pulse 67; Resp 16; Temp 98.2; Pulse Ox 100% ; Weight 73.48 kg; Height 5 ft. iw 11 in. (180.34 cm); Pain 10/10; 13:02 BP 107 / 66; Pulse 60; Resp 18; Pulse Ox 98% on R/A; Pain 8/10; em 14:50 BP 114 / 72; Pulse 64; Resp 18; Pulse Ox 100% on R/A; Pain 8/10; em 11:16 Body Mass Index 22.59 (73.48 kg, 180.34 cm) iw MDM: 11:13 Patient medically screened. cp 12:00 Differential diagnosis: bowel obstruction, diverticulitis, non-specific abd pain, cp Ureterolithiasis, urinary tract infection, perforation, abscess. 13:26 Physician consultation: Richard Mariscal MD was called at 13:27, was contacted at 13:27, cp regarding admission, to the medical/surgical unit. patient's condition. 13:55 Data reviewed: vital signs, nurses notes, lab test result(s), radiologic studies, CT cp scan, I have discussed the patient's presentation/case with the attending Emergency Department Physician; and as a result, I will admit patient. 13:55 Physician consultation: Edil Griffith MD was called at 13:45, was contacted at 13:45, cp regarding consult, patient's condition. 10/24 11:12 Order name: Basic Metabolic Panel; Complete Time: 13: cp 10/24 13:02 Interpretation: Normal except: CL 113; GLUC 138; GFR 80. cp 10/24 11:12 Order name: CBC with Diff; Complete Time: 13: cp 10/24 13:02 Interpretation: Normal except: WBC 11.1; RBC 4.13; HGB 12.2; HCT 37.5; PLT 365; RDW cp 15.3; ANNITA% 77.4; LYM% 10.2; NEUT A 8.6. 10/24 11:12 Order name: Creatinine for Radiology; Complete Time: 13:02 cp 10/24 11:12 Order name: Hepatic Function; Complete Time: 13: cp 10/24 13:03 Interpretation: Normal except: ALB 3.0; GLOB 3.7; A/G 0.8; AST 11. cp 10/24 11:12 Order name: Lipase; Complete Time: 13: cp 10/24 11:12 Order name: Urine Microscopic Only; Complete Time: 13:41 cp 10/24 11:34 Order name: CT Abd/Pelvis - IV Contrast Only; Complete Time: 13:02 cp 10/24 13:44 Interpretation: Report reviewed. 10/24 13:10 Order name: Urine Dipstick--Ancillary (enter results); Complete Time: 13:24 bd 10/24 13:16 Order name: XRAY Chest (1 view) 10/24 13:26 Order name: Lactate 10/24 13:41 Order name: Urine Culture EDNE 10/24 11:12 Order name: IV Saline Lock; Complete Time: 11:19 cp 10/24 11:12 Order name: Labs collected and sent; Complete Time: 11:19 cp 10/24 11:12 Order name: Urine Dipstick-Ancillary (obtain specimen); Complete Time: 13:07 cp 10/24 13:52 Order name: NPO; Complete Time: 13:58 cp Administered Medications: 11:36 Drug: NS 0.9% 1000 ml Route: IV; Rate: 1 bolus; Site: right forearm; em 12:00 Drug: Zofran 4 mg Route: IVP; Site: right forearm; em 13:07 Follow up: Response: No adverse reaction em 12:02 Drug: fentaNYL (PF) 25 mcg Route: IVP; Site: right forearm; em 13:07 Follow up: Response: No adverse reaction; Marked relief of symptoms; Pain is decreased; em RASS: Alert and Calm (0) 12:18 Not Given (Other Intervention Used): fentaNYL (PF) 25 mcg IM once; RASS on ADMIN: em Combtv4, Very Agttd3, Agttd2, Rstlss1, AlertClm0, Drwsy-1, Lt Sdtn-2, Mod Sdtn-3, Dp Sdtn-4, UnArsble-5 13:50 Drug: Mefoxin 2 grams {Note: given IVP per protocol.} Route: IVPB; Infused Over: 30 em mins; Site: right forearm; 13:56 Drug: metroNIDAZOLE 500 mg Volume: 100 ml; Route: IVPB; Infused Over: 30 mins; Site: em right forearm; 14:50 Follow up: Response: No adverse reaction; IV Status: Completed infusion; IV Intake: em 100ml 13:57 Drug: NS 0.9% 1000 ml Route: IV; Rate: 1 bolus; Site: right forearm; em 14:52 Follow up: IV Status: Completed infusion; IV Intake: 1000ml em 14:53 Drug: fentaNYL (PF) 25 mcg {Note: RASS-0.} Route: IVP; Site: right forearm; em 15:26 Follow up: Response: No adverse reaction; Marked relief of symptoms; Pain is decreased; em RASS: Alert and Calm (0) Disposition: 15:47 Co-signature as Attending Physician, Mick Arshad MD I agree with the assessment and kdr plan of care. Disposition: 10/24/19 13:56 Hospitalization ordered by Richard Mariscal for Inpatient Admission. Preliminary diagnosis is Diverticulitis of large intestine with perforation and abscess without bleeding. - Bed requested for Telemetry/MedSurg (Inpatient). - Status is Inpatient Admission. em - Condition is Stable. - Problem is new. - Symptoms have improved. UTI on Admission? No Signatures: Dispatcher [employer] EDMS Khushi Thompson Kevin, MD MD [facility] Fredy Vasquez RN RN em Lima Brown RN RN iw Bjorn Boyce PA PA cp Corrections: (The following items were deleted from the chart) 14:37 13:56 Hospitalization Ordered by Richard Mariscal MD for Inpatient Admission. Preliminary bd diagnosis is Diverticulitis of large intestine with perforation and abscess without bleeding. Bed requested for Telemetry/MedSurg (Inpatient). Status is Inpatient Admission. Condition is Stable. Problem is new. Symptoms have improved. UTI on Admission? No. cp 15:32 14:37 10/24/2019 13:56 Hospitalization Ordered by Richard Mariscal MD for Inpatient em Admission. Preliminary diagnosis is Diverticulitis of large intestine with perforation and abscess without bleeding. Bed requested for Telemetry/MedSurg (Inpatient). Status is Inpatient Admission. Condition is Stable. Problem is new. Symptoms have improved. UTI on Admission? No. bd
[2019-10-24] MEDS ORDERED: ONDANSETRON 4 MG/2 ML VIAL IV PRN (15:37)
[2019-10-24] MEDS: D5 0.45 NS 1,000 ML IV SCH (15:55)
[2019-10-24] MEDS: MORPHINE 2 MG/ML SYR IV PRN ×2 (17:03→21:03)
[2019-10-24] MEDS: PIPER/TAZO/NS 3.375gm 3.375 GM/100 ML BAG IVPB SCH (17:04)
[2019-10-24 18:03] VITALS: BMI 22.6
[2019-10-24] MEDS ORDERED: KETOROLAC 30 MG/ML INJ IV ONE (18:25)
[2019-10-24] MEDS: METRONIDAZOLE 500mg IVPB 500 MG/100 ML BAG IV SCH (18:31)
--- NOTE | 2019-10-24 19:35 | CON ---
Date of Consultation: 10/24/2019 Reason: Abdominal pain. History Of Present Illness: The patient is a 59-year-old gentleman who comes in with acute onset of left lower quadrant abdominal pain that started this morning. He had a previous episode of similar p ain in August, was diagnosed with acute sigmoid diverticulitis. Was treated with antibiotics. He improved. He was supposed to see GI, he did not and he comes in with acute onset of pain this time. No nausea, vomiting. No diarrhea, constipation. No blood in his stool. No changes in bowel habits . No dysuria or hematuria. No sore throat, runny nose, cough, headaches, or dizziness. No chest pa in. Review of Systems: Otherwise unremarkable. Past Medical History: Significant for bipolar disease. Past Surgical History: See previous dictation. Allergies: NONE. Social History: See my previous dictation. Physical Examination: Vital Signs: Stable. He is afebrile. General: He is awake, alert, and oriented x3. Head and Neck: Cranial nerves 2 through 12 are grossly within normal limits. No neck masses. No JV D. Throat clear. Neck is supple. Chest: Clear. Heart: S1, S2. Abdomen: Soft, nondistended. Positive bowel sounds. Positive left lower quadrant tenderness with m inimal rebound. No rigidity or guarding. Extremities: Adequately perfused. Nontender. Neuro: Nonfocal. Laboratory Data: White count 11.1 with a left shift. CT of the abdomen and pelvis discussed with Dr Andrews and patient has sigmoid diverticulitis, which is slightly improved from the previous CAT scan finding; however, he does have some fluid and microperforation present near the inflamed area. Fluid is not quite an abscess yet. It cannot be drained quite a bit. It is 5 x 1 cm in one area an d 3 x 1 cm in other area. Assessment: Recurrent acute sigmoid diverticulitis. Recommendations: Admit, n.p.o., IV fluid, IV antibiotics, then slowly advance diet as tolerated. Wi ll need a colonoscopy in 4 to 6 weeks. No need for any acute surgical intervention at this time, but I would recommend a segmental colon resection after the colonoscopy. Plan of care discussed in ted mcmillan with the patient. DAIJA/JACOB Voice ID: [id number] Report ID: [id number]
[2019-10-24] MEDS: ALBUTEROL 2.5 MG/3 ML NEB SOL NEB SCH (20:00)
[2019-10-24] MEDS: IPRATROPIUM BROM 0.5MG/2.5ML NEB SCH (20:00)
[2019-10-25] MEDS: D5 0.45 NS 1,000 ML IV SCH ×3 (00:02→15:26)
[2019-10-25] MEDS: PIPER/TAZO/NS 3.375gm 3.375 GM/100 ML BAG IVPB SCH ×2 (00:02→08:13)
[2019-10-25] MEDS: METRONIDAZOLE 500mg IVPB 500 MG/100 ML BAG IV SCH ×4 (00:03→16:52)
--- NOTE | 2019-10-25 00:35 | HP ---
Date of Admission: 10/24/2019 Consultants: Dr. Griffith with General Surgery. Chief Complaint: Abdominal pain. History Of Present Illness: Patient is a 59-year-old male with past medical history of anxiety, depr ession, bipolar disorder, ADHD, hypertension, COPD, hepatitis C, history of CVA, who has had multiple recurrent episodes of diverticulitis most recently on 10/14/2019, was recently discharged on the 1sr and is still on oral antibiotics with couple doses of Flagyl remaining, who had recurrence of his ab dominal pain and therefore came back into the ER for further evaluation. Patient has not had a [facility] e to follow up with Dr. Decker since his discharge. Patient is having pain in the left lower quadr ant, associated with some nausea. No diarrhea. No blood in the stool. No fevers. Does report some chills. His symptoms are constant, moderate, progressively worsening. Pain is nonradiating, crampy in nature. Upon arrival to the ER, his vital signs were stable, he was afebrile. His white count w as 11.1 with left shift. Lactate was normal. His CAT scan showed sigmoid diverticulitis with absces s 5.1 cm as well as 3.1 cm fluid collection in the posterior pelvis indicating an additional abscess. Dr. Griffith with General Surgery was consulted by the ED and he was referred for admission. When see n in the ER, he was awake, alert, and oriented x3, in some mild distress. Past Medical History: Recurrent diverticulitis, bipolar disorder, hepatitis C, COPD, history of CVA, osteoarthritis of the knee, right renal cyst with renal calculi, former tobacco user. Past Surgical History: Right knee replacement and umbilical and inguinal hernia repair. Social History: The patient is , has 2 kids. Unemployed. Former smoker. Denies any alcoho l use. No illicit drug use. Family History: Significant for hypertension. No abdominal cancer. Allergies: NO KNOWN DRUG ALLERGIES. Medications: List reviewed. Review of Systems: Ten-point system reviewed, negative except as per HPI. Physical Examination: VITAL SIGNS: Temperature 98.2, heart rate 67, blood pressure 99/62, respirations 16, O2 100% on room air. GENERAL: Awake, alert, and oriented x3, in some mild distress, ill-appearing male, appears older zeny n stated age. HEENT: Normocephalic, atraumatic PERRLA. EOMI. Dry mucous membranes. Oropharynx is clear. Poor d entition. Conjunctivae are anicteric. Neck: Supple. No JVD. Trachea midline. CV: S1, S2. Regular rate and rhythm. Peripheral pulses present. Respiratory: Moving air well bilaterally. No wheezing or stridor. No use of accessory muscles. Gastrointestinal: Abdomen is soft. Patient has tenderness to palpation on the left lower quadrant w ith some voluntary guarding. No rebound or rigidity. Hypoactive bowel sounds. No distention. Extremities: No clubbing, cyanosis, or edema. No calf tenderness. Neuro: Cranial nerves 2 through 12 intact grossly. No focal neurological deficit. Speech is normal . Skin: No rashes, normal skin turgor. Psych: Mood is somewhat dysphoric. Affect is congruent with mood. Insight and judgment are fair. Laboratory Data: UA; negative nitrite, negative leukocyte esterase, 5-10 wbc's. Sodium 140, potassi um 4.4, chloride 113, CO2 22, BUN 8, creatinine 0.97, glucose 138, lactate 0.7, calcium 8.8, AST 11, ALT 16, albumin 3, lipase 159. WBC 11.1, H and H 12.2 and 37.5, platelets 365, neutrophils 77%. CT scan of the abdomen shows sigmoid diverticulitis, micro perforation is present. A 5 x 1 cm ill-de fined fluid collection anterior to the sigmoid colon, likely early abscess 3 x 1 cm fluid collection within the posterior pelvis, likely additional abscess. Personally reviewed chest x-ray shows no acu te intrathoracic process. Assessment: A 59-year-old male with, 1.Acute diverticulitis with abscess and perforation, failed outpatient treatment. We will start on IV Zosyn. Dr. Griffith has been consulted. We will keep n.p.o. for now. IV analgesia with morphine. Start on D5 half NS. No signs of sepsis. Patient is somewhat hypotensive, but improved with fluids. Blood pressure was initially 99/62. No fevers. Lactate is negative. We will monitor closely for signs of sepsis. 2.Normocytic normochromic anemia. Monitor H and H. 3.Bipolar disorder, not on any medications. 4.History of chronic obstructive pulmonary disease. We will continue with albuterol p.r.n. 5.Hepatitis C. 6.History of cerebrovascular accident, no residual deficit. 7.Osteoarthritis, generalized. 8.Depression and anxiety, stable. 9.Essential hypertension, currently hypotensive. 10.Deep vein thrombosis prophylaxis with SCDs. No chemical anticoagulation due to possible surgical intervention. Plan: Admit patient to Med-Surg, place as inpatient. Length of stay greater than 2 midnights. LUIGI Voice ID: [id number]
[2019-10-25] MEDS: ALBUTEROL 2.5 MG/3 ML NEB SOL NEB SCH ×4 (01:40→19:37)
[2019-10-25] MEDS: IPRATROPIUM BROM 0.5MG/2.5ML NEB SCH ×4 (01:40→19:37)
[2019-10-25] MEDS: MORPHINE 2 MG/ML SYR IV PRN ×4 (02:07→20:54)
[2019-10-25 05:16] LABS: Absolute Lymphocytes (CBC) 1.2 K/uL (0.7-4.9); Basophils % 0.4 % (0-1.3); Hematocrit 33.5 % (39.6-49.0); Lymphocytes % 9.3 % (15.3-44.8); MPV 8.1 fL (7.6-11.3); RBC Red Blood Cell Count 3.71 M/uL (4.33-5.43)
[2019-10-25 05:23] LABS: Potassium 4.5 mmol/L (3.5-5.1)
[2019-10-25] MEDS ORDERED: METRONIDAZOLE 500mg IVPB 500 MG/100 ML BAG IV ONE (11:58)
[2019-10-25] MEDS ORDERED: MORPHINE 2 MG/ML SYR ONE ×3 (12:00→18:40)
[2019-10-25] MEDS ORDERED: ALBUTEROL 2.5 MG/3 ML NEB SOL ONE ×2 (13:16→19:37)
[2019-10-25] MEDS ORDERED: IPRATROPIUM BROM 0.5MG/2.5ML ONE ×2 (13:16→19:37)
[2019-10-25] MEDS: Meropenem 1,000 MG in NA CHLORIDE 0.9% 100 ML IV SCH (16:52)
[2019-10-25] MEDS ORDERED: Meropenem 1000 MG/VIAL IV SCH (17:00)
--- NOTE | 2019-10-25 17:06 | PN ---
Date of Progress Note: 10/25/2019 Subjective: Patient is seen and examined. Chart reviewed and case discussed with RN and with Dr. Barry roberts. Patient is still having some abdominal pain. Still n.p.o. No nausea or vomiting. Medications: Reviewed. Physical Examination: Vital Signs: Temperature 98.1, heart rate 72, blood pressure 118/72, respirations 18, O2 96% on room air. GENERAL: Awake, alert, oriented x3. Ill-appearing male, in some mild distress. Appears older than stated age. CV: S1, S2. Regular rate and rhythm. Peripheral pulses present. Respiratory: Moving air well bilaterally. No wheezing or stridor. No use of accessory muscles. Gastrointestinal: Abdomen is soft. Tenderness to palpation in the left lower quadrant and suprapubi c region. No rebound. Some voluntary guarding is present. No signs of peritonitis. Hypoactive bow el sounds. Extremities: No clubbing, cyanosis, or edema. Neurologic: Nonfocal. Laboratory Data: Sodium 144, potassium 4.5, chloride 116, CO2 23, BUN 6, creatinine 1.13, glucose 15 6, calcium 7.9. WBC 13.4, H and H 11 and 33.5, platelets 330. Neutrophils 79%. Urine culture, no g rowth. Assessment: 59-year-old male with: 1.Acute sigmoid diverticulitis, recurrent with failed outpatient treatment with abscess. No bleedin g. We will adjust IV antibiotics. White blood cell count is trending up. Continues to have pain. Abscess not amenable for drainage. We will continue n.p.o. status. IV analgesia with morphine and a ppreciate Dr. Griffith's input, may require surgical intervention if not improving in the next 24-48 antonio rs. He will eventually need a colonoscopy in 4-[address] Dawson is on the case as well. 2.Normocytic normochromic anemia. Continue to monitor H and H, transfuse as needed. 3.Bipolar disorder. Hold medications for now, not taking anything at home, stable. 4.History of chronic obstructive pulmonary disease. We will continue with nebulizer treatments as n eeded. 5.Chronic hepatitis C without coma. Follow up with GI. 6.History of CVA. No residual deficit. 7.Generalized osteoarthritis, stable. 8.Depression and anxiety, stable. 9.History of hypertension, currently hypotensive. We will hold blood pressure medications for now. 10.Deep venous thrombosis prophylaxis with SCDs. No chemical anticoagulation due to possible surgic al intervention. Plan: Adjust IV antibiotics. Likely discharge in the next 48-72 hours depending on clinical respons e. If worsening, may need surgical intervention. /MODSaray Voice ID: [id number] Report ID: [id number]
--- NOTE | 2019-10-25 18:38 | PN ---
Date of Progress Note: 10/25/2019 Subjective: Patient is awake, alert. Pain is a little bit better. Objective: VITAL SIGNS: Stable. He is afebrile. ABDOMEN: Soft, tender in the left lower quadrant and the suprapubic region, but no peritonitis. Laboratory Data: White count is increased, however, slightly over 13,000. Assessment: Acute sigmoid diverticulitis with microperforation. Recommendations: I would still keep the patient n.p.o., dietary consultation. Change antibiotics to meropenem as this is a recurrent sigmoid diverticulitis. Monitor the patient closely with serial ab dominal exam. No need for any surgical intervention at this time. /MODL Voice ID: [id number] Report ID: [id number]
[2019-10-26] MEDS: D5 0.45 NS 1,000 ML IV SCH ×3 (00:06→15:37)
[2019-10-26] MEDS: Meropenem 1,000 MG in NA CHLORIDE 0.9% 100 ML IV SCH ×3 (00:12→17:32)
[2019-10-26] MEDS: METRONIDAZOLE 500mg IVPB 500 MG/100 ML BAG IV SCH ×5 (00:12→23:13)
[2019-10-26] MEDS: MORPHINE 2 MG/ML SYR IV PRN ×5 (00:52→21:32)
[2019-10-26] MEDS: IPRATROPIUM BROM 0.5MG/2.5ML NEB SCH ×4 (01:50→19:55)
[2019-10-26] MEDS: ALBUTEROL 2.5 MG/3 ML NEB SOL NEB SCH ×4 (01:50→19:55)
[2019-10-26 04:56] LABS: Potassium 4.5 mmol/L (3.5-5.1)
[2019-10-26 05:09] LABS: Basophils % 0.2 % (0-1.3); Hematocrit 36.7 % (39.6-49.0); Lymphocytes % 6.8 % (15.3-44.8); MPV 8.4 fL (7.6-11.3); RBC Red Blood Cell Count 4.08 M/uL (4.33-5.43)
[2019-10-26] MEDS ORDERED: IPRATROPIUM BROM 0.5MG/2.5ML ONE (08:00)
[2019-10-26] MEDS ORDERED: ALBUTEROL 2.5 MG/3 ML NEB SOL ONE (08:00)
[2019-10-26] MEDS ORDERED: MORPHINE 2 MG/ML SYR ONE (09:04)
[2019-10-26] MEDS ORDERED: HYDRALAZINE HCL 20 MG/ML VIAL IV PRN (11:08)
--- NOTE | 2019-10-26 13:33 | PN ---
Date of Progress Note: 10/26/2019 Patient is awake, alert, feels better. Pain is much better. Objective: Vital Signs: Stable. Afebrile. White count is still elevated slightly above 14,000. T here is a slight left shift. Abdomen: Much less tender. No rebound, rigidity, or guarding. The tenderness is in the left lower quadrant. Assessment: Recurrent acute sigmoid diverticulitis with microperforation. Recommendations: We will begin sips of clear liquids. Continue the patient on meropenem. Dietary c onsultation. Patient will need a colonoscopy in 4 to 6 weeks and then most likely a segmental colon resection. /MODL Voice ID: [id number] Report ID: [id number]
--- NOTE | 2019-10-26 15:24 | PN ---
Date of Progress Note: 10/26/2019 Subjective: The patient seen and examined, chart reviewed, and case discussed with RN and Dr. Griffith. The patient states his pain is slightly better. Medications: List reviewed. Physical Examination: Vital Signs: Temperature 98.3, heart rate 74, blood pressure 150/85, respirations 16, O2 of 97% on room air. General: Awake, alert, oriented x3, in some mild distress, ill-appearing male. CV: S1, S2. Regular rate and rhythm. Peripheral pulses present. Respiratory: Moving air well bilaterally. No wheezing or stridor. No use of accessory muscles. Gastrointestinal: Abdomen is soft. Tenderness to palpation in the left lower quadrant and suprapubic region. No guarding or rigidity. Positive bowel sounds. Extremities: No clubbing, cyanosis, or edema. Neurologic: Nonfocal. Laboratory Data: Sodium 140, potassium 4.5, chloride 111, CO2 of 25, BUN 4, creatinine 0.98, glucose 122, calcium 8.5. WBC 14.6, H and H 12.1 and 36.7, platelets 372, neutrophils 82%. Urine culture, no growth to date. Assessment: A 59-year-old male with: 1. Acute sigmoid diverticulitis, recurrent with failed outpatient treatment, now with abscess, no bleeding. Patient was switched to meropenem, however, white blood cell count still trending up. Continues to have pain, clinically seems improved. Continue strict n.p.o. IV analgesia with morphine. Appreciate Dr. Griffith's input, may need surgery if not improving. 2. Normocytic normochromic anemia. Continue to monitor H and H, transfuse as needed. 3. Hypertension. Blood pressure now has improved, initially was 99/62, now in the 140s to 150s. We will add p.r.n. hydralazine. 4. Chronic obstructive pulmonary disease, chronic bronchitis. We will continue with nebulizer treatments p.r.n. 5. Chronic hepatitis C without coma. Outpatient followup for workup and treatment plan. Appreciate GI input. 6. History of cerebrovascular accident. No residual deficit. 7. Generalized osteoarthritis, stable. 8. Depression and anxiety, stable. 9. Deep vein thrombosis prophylaxis. SCDs and ambulation. 10. Bipolar disorder, stable. Disposition. Pending clinical improvement. If deteriorates, may need surgical intervention. SA/MODL Voice ID: [id number] Report ID: [id number]
[2019-10-27] MEDS: Meropenem 1,000 MG in NA CHLORIDE 0.9% 100 ML IV SCH ×3 (00:26→16:24)
[2019-10-27] MEDS: D5 0.45 NS 1,000 ML IV SCH ×6 (00:27→21:31)
[2019-10-27] MEDS: MORPHINE 2 MG/ML SYR IV PRN ×6 (01:19→21:30)
[2019-10-27] MEDS: ALBUTEROL 2.5 MG/3 ML NEB SOL NEB SCH ×4 (01:40→19:40)
[2019-10-27] MEDS: IPRATROPIUM BROM 0.5MG/2.5ML NEB SCH ×4 (01:40→19:40)
[2019-10-27 05:12] LABS: Absolute Lymphocytes (CBC) 1.5 K/uL (0.7-4.9); Basophils % 0.8 % (0-1.3); Hematocrit 34.8 % (39.6-49.0); Lymphocytes % 12.1 % (15.3-44.8); MPV 8.3 fL (7.6-11.3); RBC Red Blood Cell Count 3.93 M/uL (4.33-5.43)
[2019-10-27] MEDS: METRONIDAZOLE 500mg IVPB 500 MG/100 ML BAG IV SCH ×3 (05:19→17:38)
[2019-10-27 05:23] LABS: BUN Blood Urea Nitrogen 3 mg/dL (7-18); Bicarbonate 24 mmol/L (21-32); Glucose Level 132 mg/dL (74-106); Magnesium 1.8 mg/dL (1.8-2.4); Phosphorus 1.7 mg/dL (2.5-4.9); Potassium 3.5 mmol/L (3.5-5.1); Sodium Level 141 mmol/L (136-145)
--- NOTE | 2019-10-27 10:41 | PN ---
Date of Progress Note: 10/27/2019 Patient is awake, alert. Tolerated his clear liquids. Pain is much better. Objective: Vital Signs: Stable. He is afebrile. He has had bowel movements. White count is down to 12.1, and the left shift has normalized. Abdomen: Soft, nondistended, nontender. Positive bowel sounds. Assessment: Acute sigmoid diverticulitis, recurrent, with microperforation. Recommendations: As this is a complicated case, I would recommend continue meropenem for this patien t. Also continue on clear liquids for another 24 hours. We will slowly advance his diet. I think h e would benefit from at least 48 hours more of IV antibiotics. Plan of care discussed with Dr. Mariscal . DAIJA/JACOB Voice ID: [id number] Report ID: [id number]
--- NOTE | 2019-10-27 12:29 | PN ---
Date of Progress Note: 10/27/2019 Subjective: Patient seen and examined, chart reviewed, and case discussed with RN and Dr. Griffith. Patient seems to be doing better, tolerating sips of water and ice chips. Medications list reviewed. Objective: Vital Signs: Temperature 97, heart rate 91, blood pressure 158/95, respirations 18, O2 95% on room air. General: Awake, alert, oriented x3, ill-appearing male, in some mild distress. CV: S1, S2. Regular rate and rhythm. Peripheral pulses present. Respiratory: Moving air well bilaterally. No wheezing or stridor. No use of accessory muscles. Gastrointestinal: Abdomen is soft. Mild tenderness to palpation in the left lower quadrant and suprapubic region. No rebound or guarding. Positive bowel sounds. Extremities: No clubbing, cyanosis, or edema. Neurologic: Nonfocal. Laboratory Data: Sodium 141, potassium 3.5, chloride 111, CO2 24, BUN 3, creatinine 0.83, glucose 132, calcium 8.2, phosphorus 1.7, magnesium 1.8. WBC 12.1, H and H 11.4 and 34.8, platelets 411, neutrophils 73%. Assessment And Plan: A 59-year-old male with. 1. Acute sigmoid diverticulitis, recurrent with failed outpatient treatment, now with abscess. No bleeding. Patient is on meropenem. White blood cell count finally trending downward, still elevated, clinically seems improved. Pain is reduced. Still requiring IV analgesia, tolerating sips of clears. We will hold off on advancing diet for now. Appreciate Dr. Griffith's input. 2. Normocytic normochromic anemia. Continue to monitor H and H, transfuse as needed. 3. Hypophosphatemia. We will replace and monitor. 4. Hypotension, resolved. The patient's blood pressure is now in the 140s systolic. Add hydralazine p.r.n. 5. Chronic obstructive pulmonary disease, chronic bronchitis. We will continue with albuterol and ipratropium as needed, stable, not requiring any supplemental oxygen. 6. Chronic hepatitis C without coma. GI on board. Patient will need outpatient followup for further genotype testing and treatment. 7. History of cerebrovascular accident. No residual deficits. Stable. 8. Generalized osteoarthritis, stable. 9. Major depressive disorder, stable. 10. Generalized anxiety disorder. Ativan as needed. 11. Deep venous thrombosis prophylaxis, Lovenox. No surgical intervention planned at this time. 12. Disposition. Discharge in the next 24-48 hours depending on clinical response. /JACOB Voice ID: [id number] Report ID: [id number] MTDD
[2019-10-27] MEDS: ENOXAPARIN 40 MG/0.4 ML SQ SCH (16:25)
[2019-10-28] MEDS: METRONIDAZOLE 500mg IVPB 500 MG/100 ML BAG IV SCH ×5 (00:21→23:16)
[2019-10-28] MEDS: ALBUTEROL 2.5 MG/3 ML NEB SOL NEB SCH ×4 (01:10→21:15)
[2019-10-28] MEDS: IPRATROPIUM BROM 0.5MG/2.5ML NEB SCH ×4 (01:10→21:15)
[2019-10-28] MEDS: MORPHINE 2 MG/ML SYR IV PRN ×6 (01:31→21:05)
[2019-10-28] MEDS: Meropenem 1,000 MG in NA CHLORIDE 0.9% 100 ML IV SCH ×3 (01:32→17:07)
--- NOTE | 2019-10-28 06:00 | PN ---
Date of Progress Note: 10/28/2019 Subjective: Patient is awake, alert, no complaint. Pain is much better. Objective: Vital Signs: Stable, afebrile. Abdomen: Benign. Laboratory Data: Pending. Assessment: Recurrent acute sigmoid diverticulitis. Recommendations: Continue IV antibiotics. We will advance diet to full liquids today, another 24-48 hours of IV antibiotics and patient could probably be discharged home on oral antibiotics. Clinical ly, patient is doing well. /MODL Voice ID: [id number] Report ID: [id number]
[2019-10-28] MEDS: D5 0.45 NS 1,000 ML IV SCH ×2 (09:25→17:07)
--- NOTE | 2019-10-28 11:50 | P.PN ---
Subjective Date of Service: 10/28/19 Chief Complaint: LLQ pain, sigmoid diverticulitis with associated 5 & 3 cm abscesses Subjective: Improving (He notes less abdominal pain and tolerating full liquid diet.) Review of Systems 10-point ROS is otherwise unremarkable Gastrointestinal: Abdominal Pain (Improved.) Physical Examination - Vital Signs Temperature: 97.9 F Blood Pressure: 153/84 Pulse: 71 Respirations: 18 Pulse Ox (%): 95 - Physical Exam General: Alert, In no apparent distress, Cooperative HEENT: Atraumatic, Normocephalic, PERRLA, EOMI Neck: Supple Respiratory: Normal air movement Cardiovascular: Normal pulses, Regular rate/rhythm Gastrointestinal: Soft and benign, No rebound, No guarding, Tenderness ( Improved.) Neurological: Normal speech, Normal strength at 5/5 x4 extr Assessment And Plan - Current Problems (Diagnosis) (1) Abscess, abdomen Current Visit: Yes Status: Acute (2) LLQ abdominal pain Current Visit: Yes Status: Acute (3) Diverticulitis Onset Date: 08/23/16 Current Visit: No Status: Acute Qualifiers: Diverticulitis site: large intestine Diverticulitis bleeding: without bleeding Diverticulitis complication: without perforation or abscess Qualified Code(s): K57.32 - Diverticulitis of large intestine without perforation or abscess without bleeding (4) Nausea and vomiting Onset Date: 08/23/16 Current Visit: No Status: Acute Qualifiers: Vomiting type: unspecified Vomiting Intractability: non-intractable Qualified Code(s): R11.2 - Nausea with vomiting, unspecified - Plan REC: 1) continue IV antibiotics 2) prn pain medications / antiemetics 3) colonoscopy in 3-4 months after surgery clearance with repeat CT to ensure resolvement of abdominal abscesses
--- NOTE | 2019-10-28 15:29 | PN ---
Date of Progress Note: 10/28/2019 Subjective: Patient seen and examined, chart reviewed, and case discussed with RN. Patient is doing better, now complaining of some pain in the suprapubic region, was on full liquids today. Medications: List reviewed. Physical Examination: Vital Signs: Temperature 97.9, heart rate 71, blood pressure 153/84, respirations 18, O2 95% on room air. General: Awake, alert, oriented x3, in some mild distress due to pain. Appears older than stated ag e. CV: S1, S2. Regular rate and rhythm. Peripheral pulses present. Respiratory: Moving air well bilaterally. No wheezing or stridor. No use of accessory muscles. Gastrointestinal: Abdomen is soft. Tenderness to palpation in the left lower quadrant as well as th e suprapubic region. No guarding or rigidity. Extremities: No clubbing, cyanosis, or edema. Neuro: Cranial nerves 2 through 12 intact grossly. No focal neurological deficit. Skin: Patient has excoriated skin in the lower extremities. Otherwise, no rash. Laboratory Data: Sodium 141, potassium 3.5, chloride 111, CO2 of 24, BUN 3, creatinine 0.83, glucose 132, calcium 8.2. Phosphorus 1.7, magnesium 1.8. WBC 12.1, H and H 11.4/34.8, platelets 411, neutr ophils 73%. Assessment And Plan: 59-year-old male with: 1.Acute sigmoid diverticulitis, recurrent with failed outpatient treatment, currently with abscess. No bleeding. Continue meropenem. WBC count is still elevated currently at 12. Labs from today are pending. Labs listed above are from 10/27/2019. We will continue with close monitoring. Patient h as been advance to full liquids by Dr. Griffith, likely IV antibiotics for another 24 to 48 hours. 2.Normocytic, normochromic anemia. H and H are stable. 3.Hypophosphatemia, replaced. Continue to monitor. 4.Acute hypertension, resolved. 5.Chronic obstructive pulmonary disease, chronic bronchitis. Continue albuterol as needed. Stable. 6.Chronic hepatitis C without coma. Continue with outpatient followup. Appreciate GI input. 7.History of cerebrovascular accident. No residual deficits. Stable. 8.Generalized osteoarthritis, stable. 9.Major depressive disorder, stable. 10.Generalized anxiety disorder. Benzodiazepines as needed. 11.Deep venous thrombosis prophylaxis, Lovenox. 12.Disposition: Home in the next 24 to 48 hours depending on clinical improvement and once cleared by Surgery. /JACOB Voice ID: [id number] Report ID: [id number]
[2019-10-28] MEDS: ENOXAPARIN 40 MG/0.4 ML SQ SCH (17:06)
--- NOTE | 2019-10-28 17:45 | CON ---
Date of Consultation: 10/25/2019 Reason For Consultation: Diverticulitis with abscesses with abnormal CT of the abdomen and pelvis. History Of Present Illness: Patient is a 59-year-old white male with history of bipolar disorder, AD HD, diverticulitis, COPD, stroke, osteoarthritis. Patient presented to the hospital with left lower quadrant pain, 10/10, now down to 8/10. CT of abdomen and pelvis reveals sigmoid diverticulitis with a 5 and 3 cm abscesses noted in the lower abdomen as well. Patient denies any fevers, chills, night sweats, nausea, or vomiting. No diarrhea or constipation. He says this is first episode of diverti culitis, but the chart review says he has history of recurrent diverticulitis. Patient [facility] with Dr. Decker, it appears. Past Medical History: Significant for bipolar disorder, ADHD, recurrent diverticulitis by chart revi ew, hepatitis C, COPD, history of stroke, osteoarthritis of the knee, right renal cyst, renal calculi , former tobacco. He notes bilateral knee replacements and inguinal hernia repair and umbilical keyanna ia repair. Social History: He is x2. He has 2 children. No tobacco. No alcohol, though he is a form er smoker. No illicit drugs. Family History: Father of Parkinson disease. Mother is alive and well, he reports. Allergies: NKDA. Medications: In hospital include albuterol, Lovenox, Flagyl, hydralazine, Atrovent, meropenem, morph ine, Zofran. Review of Systems: Patient has left lower quadrant pain. Denies any melena, hematochezia, hematemesis, coffee-ground em esis, hematuria, polydipsia, chest pain, shortness of breath, seizure, syncope, fevers, chills, night sweats, nausea, vomiting, diarrhea, or constipation. He has depression and aroldo with a history of bipolar disorder. Physical Examination: Vital Signs: Patient is 5 feet 11 inches, 162 pounds, BMI 23 kg/m2. He has a temperature of 98.1 de grees Fahrenheit, pulse 72, respirations 18, blood pressure 118/70, O2 saturation 96%. HEENT: Normocephalic, atraumatic. Anicteric. Pupils equal, round, and reactive to light. Extraocu lar movements intact. Oropharynx is clear. Neck: Supple. No masses. Respiratory: Clear to auscultation bilaterally. Cardiac: Regular rate and rhythm. No gallops. Abdomen: Positive bowel sounds. Soft, nondistended. Mildly obese. Pain in the left lower quadrant area, but no peritoneal or Murray sign. Mild guarding, but no rebound. Extremities: No clubbing, cyanosis, or edema. 2+ pulses. Neuro: Alert and oriented x3. Grossly nonfocal. 5/5 motor strength. Sensation intact to light april ch. Laboratory Data: Patient has a white count of 13.4, hemoglobin 11, hematocrit of 33.5, MCV of 90, pl atelet count 330, polys of 79%, lymphs 9%, monocytes 9%. Patient has a sodium of 144, potassium 4.5, chloride 116, bicarb 23, BUN of 6, creatinine of 1.13, glucose 156, calcium 7.9, total bili 0.2, dir ect bili less than 0.1. AST 11, ALT of 16, alk phos 46, total protein 6.7, albumin 3.0, lipase 159. UA was negative. Imaging: CT of abdomen and pelvis reveals sigmoid diverticulitis with a 5 and 3 cm abscesses noted i n the abdomen associated with this diverticulitis. Impression: 1.Sigmoid diverticulitis with a 5 and 3 cm abscesses noted in the abdomen on CT scan. He has a hist ory of recurrent diverticulitis by chart review; however, he says currently this is his first episode , though he has 10/10 left upper quadrant pain on admission, now down to 8/10 with IV fluids, p.r.n. pain medicines, and antiemetics. He has no fevers, chills, night sweats, nausea, or vomiting current ly. No constipation or diarrhea history. 2.History of bipolar disorder, attention deficit disorder, bilateral knee surgeries, recurrent diver ticulitis by chart review, and other as per above. Recommendations: 1.Continue IV fluids, IV antibiotics. 2.Continue p.r.n. pain medicine, antiemetics. 3.Colonoscopy in 3-4 months after diverticulitis and abscesses has had a chance to resolve and repea t CT scan of abdomen and pelvis has been performed to ensure this, and surgical clearance prior to co lonoscopy. Keep patient n.p.o. for now. MANUEL/JACOB Voice ID: [id number] Report ID: [id number]
[2019-10-28] MEDS: Oxycodone HCl/Acetaminophen 1 TAB TAB PO PRN (23:15)
[2019-10-29] MEDS: Meropenem 1,000 MG in NA CHLORIDE 0.9% 100 ML IV SCH ×3 (01:03→16:19)
[2019-10-29] MEDS: D5 0.45 NS 1,000 ML IV SCH ×2 (01:08→07:37)
[2019-10-29] MEDS: ALBUTEROL 2.5 MG/3 ML NEB SOL NEB SCH ×4 (02:00→19:55)
[2019-10-29] MEDS: IPRATROPIUM BROM 0.5MG/2.5ML NEB SCH ×4 (02:00→19:55)
[2019-10-29] MEDS: Oxycodone HCl/Acetaminophen 1 TAB TAB PO PRN ×6 (03:11→23:11)
[2019-10-29 05:35] LABS: Absolute Lymphocytes (CBC) 1.3 K/uL (0.7-4.9); Basophils % 0.4 % (0-1.3); Hematocrit 35.6 % (39.6-49.0); Lymphocytes % 13.7 % (15.3-44.8); RBC Red Blood Cell Count 4.04 M/uL (4.33-5.43)
[2019-10-29 05:51] LABS: ALT/SGPT 10 U/L (12-78); AST/SGOT 10 U/L (15-37); Albumin 2.7 g/dL (3.4-5.0); Alkaline Phosphatase 41 U/L (45-117); BUN Blood Urea Nitrogen 4 mg/dL (7-18); Bicarbonate 24 mmol/L (21-32); Bilirubin Total 0.3 mg/dL (0.2-1.0); Glucose Level 123 mg/dL (74-106); Potassium 3.7 mmol/L (3.5-5.1); Protein, Total 6.1 g/dL (6.4-8.2); Sodium Level 141 mmol/L (136-145)
[2019-10-29] MEDS: METRONIDAZOLE 500mg IVPB 500 MG/100 ML BAG IV SCH ×4 (06:21→23:57)
--- NOTE | 2019-10-29 14:13 | PN ---
Date of Progress Note: 10/29/2019 Subjective: Patient is seen and examined. Chart reviewed and case discussed with RN. Patient's pain is better, tolerating full liquids. Medications: List reviewed. Physical Examination: Vital Signs: Temperature 97.6, heart rate 69, blood pressure 127/86, respirations 15, O2 of 97% on room air. General: Awake, alert, oriented x3, not in any acute distress. CV: S1, S2. Regular rate and rhythm. Peripheral pulses present. Respiratory: Moving air well bilaterally. No wheezing or stridor. Gastrointestinal: Abdomen is soft. Mild tenderness to palpation in the left lower quadrant and suprapubic region. No rebound or guarding. Positive bowel sounds. Extremities: No clubbing, cyanosis, or edema. Neurologic: Nonfocal. Laboratory Data: Sodium 141, potassium 3.7, chloride 112, CO2 24, BUN 4, creatinine 0.77, glucose 123, calcium 8.5, AST 10, ALT 10, alkaline phosphatase 41, albumin 2.7. WBC 9.8, H and H of 11.8 and 35.6, platelets 434, neutrophils 66%. Assessment: 59-year-old male with: 1. Acute sigmoid diverticulitis, recurrent with failed outpatient treatment with abscess. No bleeding. We will continue meropenem. WBC count now normalized. Pain is significantly better. We will discuss with Dr. Griffith to determine if the patient's diet can be advanced. Appreciate Dr. Dawson's input. Patient will need a colonoscopy as an outpatient once diverticulitis inflammation has completely settled. 2. Hypophosphatemia. We will replace and monitor. 3. Normocytic normochromic anemia. Continue to monitor H and H, transfuse as needed. 4. Acute hypotension, resolved. Blood pressure is now improved. 5. Chronic obstructive pulmonary disease, chronic bronchitis. Continue with albuterol p.r.n. 6. Chronic hepatitis C without coma. Continue with outpatient workup. 7. History of cerebrovascular accident. No residual deficits. Stable. 8. Generalized osteoarthritis, stable. 9. Major depressive disorder, stable. 10. Generalized anxiety disorder. Continue on benzodiazepines as needed. 11. Deep venous thrombosis prophylaxis with Lovenox. Plan: Discharge once cleared from GI and surgery standpoint and tolerating diet. 15:26 ADDENDUM: Spoke with Dr. Griffith. He recommends repeat CT scan in a.m. and repeat CBC pending those results possible discharge in a.m. /JACOB Voice ID: [id number] Report ID: [id number] MTDD
--- NOTE | 2019-10-29 15:49 | PN ---
Date of Progress Note: 10/29/2019 Subjective: Patient is awake, alert, no complaint. Objective: Vital Signs: Stable, afebrile. Abdomen: Soft, nondistended, nontender. Positive bowel sounds. Laboratory Data: White count is normal at 9.8. There is no left shift. Platelets are slightly high at 434. Assessment: Acute recurrent sigmoid diverticulitis. Recommendations: We will advance diet to GI soft. Continue IV antibiotics. Likely discharge tomorr ow. If the platelets keep elevating, we might benefit from a CT of the abdomen and pelvis to make west re patient is not developing an abscess. He had some fluids on the original CAT scan that had not tu rned into abscess at that time, but it may be organizing. We will discuss the details with Dr. Mariscal . DAIJA/JACOB Voice ID: [id number] Report ID: [id number]
[2019-10-29] MEDS: ENOXAPARIN 40 MG/0.4 ML SQ SCH (16:21)
[2019-10-30] MEDS: IPRATROPIUM BROM 0.5MG/2.5ML NEB SCH ×2 (02:00→07:40)
[2019-10-30] MEDS: ALBUTEROL 2.5 MG/3 ML NEB SOL NEB SCH ×2 (02:00→07:40)
[2019-10-30] MEDS: MORPHINE 2 MG/ML SYR IV PRN (02:21)
[2019-10-30] MEDS: Oxycodone HCl/Acetaminophen 1 TAB TAB PO PRN ×2 (04:35→09:39)
[2019-10-30] MEDS: METRONIDAZOLE 500mg IVPB 500 MG/100 ML BAG IV SCH (05:12)
[2019-10-30 06:00] LABS: Absolute Lymphocytes (CBC) 1.2 K/uL (0.7-4.9); Basophils % 0.6 % (0-1.3); Hematocrit 36.6 % (39.6-49.0); Lymphocytes % 11.3 % (15.3-44.8); MPV 7.8 fL (7.6-11.3); RBC Red Blood Cell Count 4.12 M/uL (4.33-5.43)
[2019-10-30 06:17] LABS: Albumin 2.8 g/dL (3.4-5.0); Bilirubin Total 0.2 mg/dL (0.2-1.0); Protein, Total 6.4 g/dL (6.4-8.2)
[2019-10-30 08:37] VITALS: O2SAT 94
--- NOTE | 2019-10-30 08:47 | RAD REPORT ---
EXAM DESCRIPTION: CT - Abdomen Pelvis W Contrast - 10/30/2019 6:23 am CLINICAL HISTORY: abd pain, diverticular abscess, left lower quadrant pain radiating to the left fla nk, hematochezia COMPARISON: Abdomen Pelvis W Contrast dated 10/24/2019 TECHNIQUE: Biphasic, helical CT imaging of the abdomen and pelvis was performed following 100 ml non -ionic IV contrast. Oral contrast was given. All CT scans are performed using dose optimization technique as appropriate and may include automated exposure control or mA/KV adjustment according to patient size. FINDINGS: Minimal atelectasis/ scarring change in each posterior gutter. Trace amounts of bilateral pleural effusion noted. No pericardial thickening or effusion. The liver, spleen, and pancreas show no suspicious findings. Gallbladder and biliary tree are also wi thout suspicious finding. Symmetric renal function is seen with no hydronephrosis or suspicious renal mass. No pyelonephritis o r acute parenchymal process. Lower pole right renal cyst shows no suspicious characteristics. Patient has bilateral 5 mm or less nonobstructing calyx calculi. No obstructing calculus. No adrenal abnorma lities. No gastric dilatation or wall thickening. A 2.5 centimeter diverticulum is seen in the third portion of the duodenum. No acute duodenal process. Proximal small bowel loops show no suspicious findings. A ppendix is normal. Cecum through the descending colon shows no acute finding. Previously detailed sig moid diverticulitis with diverticular abscess again noted. There is a 3 centimeter focal fluid collec tion seen that has developed or matured since the prior examination. extraluminal air is present ursula g the left anterior abdominal wall. The abscess and inflammatory stranding are closely approximated t o small bowel loops. There is secondary involvement of small bowel loops in this region. Oral contras t has reached the involved small bowel loops without extravasation. No distant free air. No mass or bulky lymphadenopathy. No suspicious bony findings. IMPRESSION: Left lower quadrant diverticular abscess is present. Since the October 24 study to adjace nt 3 centimeter and 2.5 centimeter abscess collections have formed. There is still surrounding edemat ous/ inflammatory stranding and extraluminal free air. The abscesses and inflammatory stranding closely approximate and have secondarily involved loops of s mall bowel in the left lower quadrant. No extravasation of the oral contrast. The collections are too small and too closely approximated to the surrounding small bowel loops to al low percutaneous drainage. Sigmoid diverticulitis changes are present but have improved along the margins of the sigmoid colon.
[2019-10-30 09:22] VITALS: BP 132/82; TEMP 97
[2019-10-30] MEDS: Meropenem 1,000 MG in NA CHLORIDE 0.9% 100 ML IV SCH ×3 (09:34)
--- NOTE | 2019-10-30 10:54 | P.DS ---
Admission Date: 10/24/19 Discharge Date: 10/31/19 Disposition: ROUTINE DISCHARGE Discharge Condition: FAIR Reason for Admission: LLQ pain, sigmoid diverticulitis with associated 5 & 3 cm abscesses Consultations: [employer] Operator and general surgeon Hospital Course: Mr. Dumont is a 59-year-old male with past medical history of anxiety, depression, bipolar disorder, ADHD, hypertension, COPD, hepatitis C, history of CVA, who has had multiple recurrent episodes of diverticulitis most recently on 10/14/2019. He presented to the ER with complaints of left low quadrant abdominal pain. His CAT scan showed sigmoid diverticulitis with abscess 5.1 cm as well as 3.1 cm fluid collection in the posterior pelvis indicating an additional abscess. Patient was evaluated by general surgeon and treated conservatively with IV antibiotics, pain control and IV fluid. His symptoms did improve. A repeat CT scan of the abdomen showed some improvement. He was also evaluated by mobile qa tester. He remained hemodynamically stable for discharge home. He has been discharged on oral antibiotics to be taken for 14 days. He will need colonoscopy once acute diverticulitis is completely resolve, 1 month after treatment. Vital Signs/Physical Exam: Temp Pulse Resp BP Pulse Ox 97.0 F 73 16 132/82 95 10/30/19 08:00 10/30/19 08:00 10/30/19 08:00 10/30/19 08:00 10/30/19 08:00 General: Alert, In no apparent distress HEENT: Atraumatic, PERRLA, EOMI Neck: Supple, JVD not distended Respiratory: Clear to auscultation bilaterally, Normal air movement Cardiovascular: Regular rate/rhythm, Normal S1 S2 Gastrointestinal: Normal bowel sounds, No tenderness Musculoskeletal: No tenderness Integumentary: No rashes Neurological: Normal speech, Normal tone, Normal affect Lymphatics: No axilla or inguinal lymphadenopathy Laboratory Data at Discharge: WBC 11.0 K/uL (4.3-10.9) H 10/30/19 05:47 Hgb 12.1 g/dL (13.6-17.9) L 10/30/19 05:47 Hct 36.6 % (39.6-49.0) L 10/30/19 05:47 Plt Count 437 K/uL (152-406) H 10/30/19 05:47 Sodium 140 mmol/L (136-145) 10/30/19 05:47 Potassium 4.0 mmol/L (3.5-5.1) 10/30/19 05:47 BUN 6 mg/dL (7-18) L 10/30/19 05:47 Creatinine 0.91 mg/dL (0.55-1.3) 10/30/19 05:47 Glucose 106 mg/dL (74-106) 10/30/19 05:47 Phosphorus 1.7 mg/dL (2.5-4.9) L 10/27/19 04:24 Magnesium 1.8 mg/dL (1.8-2.4) 10/27/19 04:24 Total Bilirubin 0.2 mg/dL (0.2-1.0) 10/30/19 05:47 AST 12 U/L (15-37) L 10/30/19 05:47 ALT 12 U/L (12-78) 10/30/19 05:47 Alkaline Phosphatase 43 U/L (45-117) L 10/30/19 05:47 Lipase 159 U/L (73-393) 10/24/19 11:30 Home Medications: Cyclobenzaprine [Flexeril*] 1 tab PO DAILY 10/24/19 [place] Carbonate [[place] Carbonate ER] 1 tab PO BID 10/24/19 Memantine HCl 1 tab PO BID 10/24/19 Mirtazapine 30 mg PO BEDTIME 10/24/19 Temazepam [Restoril*] 15 mg PO BEDTIME PRN 10/24/19 Venlafaxine HCl [Effexor Xr] 1 cap PO DAILY 10/24/19 Ciprofloxacin HCl [Cipro 500 MG Tablet] 500 mg PO DAILY 14 Days tab 10/30/19 Codeine/APAP [Tylenol W/Codeine #3 tab] 1 tab PO Q6HP PRN #30 tab 10/30/19 metroNIDAZOLE [Flagyl] 500 mg PO Q8H 14 Days tablet 10/30/19 New Medications: Ciprofloxacin HCl [Cipro 500 MG Tablet] 500 mg PO DAILY 14 Days tab Codeine/APAP [Tylenol W/Codeine #3 tab] 1 tab PO Q6HP PRN #30 tab PRN Reason: Pain metroNIDAZOLE [Flagyl] 500 mg PO Q8H 14 Days tablet Diet: GI Soft Followup: Edil Griffith MD [ACTIVE - CAN ADMIT] - 11/13/19 Hong Dawson MD [ASSOCIATE-ACTIVE - CAN ADMIT] -
--- NOTE | 2019-10-30 12:50 | PN ---
Date of Progress Note: 10/30/2019 Subjective: Patient is awake, alert. No complaint. Objective: Vital Signs: Stable. Afebrile. Laboratory Data: Reviewed. CT of the abdomen and pelvis reviewed. Abdomen is completely benign. Assessment: Recurrent acute perforated microperforation of sigmoid diverticulitis with small abscess , not amenable to drainage percutaneously. Recommendations: Patient is clinically stable. I will keep him on antibiotics for at least 2 weeks. We can re-evaluate. Admit that time as an outpatient and put him on antibiotics for a couple more weeks. He needs a repeat CAT scan. Once this inflammatory issue was resolved, then he will need a c olonoscopy followed likely with a segmental colon resection depending upon the colonoscopy findings. Plan of care discussed in detail with the patient. DAIJA/JACOB Voice ID: [id number] Report ID: [id number]
== END 2019-10-30 11:59 | disposition home or self-care (01) | DRG 392 ==
LOC: ER 11:07 → ERHOLD 13:58 → 2ND 15:08
PROVIDERS: ADMIT Family Medicine; ATTEND Hospitalist
DX: K57.20 Diverticulitis of large intestine with perforation and abscess without bleeding (principal); D64.9 Anemia, unspecified; F31.9 Bipolar disorder, unspecified; B19.20 Unspecified viral hepatitis C without hepatic coma; M15.9 Polyosteoarthritis, unspecified; F41.8 Other specified anxiety disorders; I10 Essential (primary) hypertension; E83.39 Other disorders of phosphorus metabolism; I95.9 Hypotension, unspecified; F90.9 Attention-deficit hyperactivity disorder, unspecified type; F41.1 Generalized anxiety disorder; Z86.73 Personal history of transient ischemic attack (TIA), and cerebral infarction without residual deficits
CPT/HCPCS: 36415; 71045; 74177; 80048; 80053; 80076; 81003; 81015; 83605; 83690; 83735; 84100; 85025; 87086; 87088; 94760; 96365; 96375; 99285; J1650; J2270; J2405; J2543; J3010; J7030; J7799; Q9967

== ENCOUNTER 2019-11-28 12:42 | Emergency (ER) | payer OTHER ==
--- OUTSIDE RECORDS SUMMARY | 2019-11-28 12:46 | XMS REPORT ---
[...] Status Dosage System Date Date Albuterol Sulfate [facility] 93231606010 108 (90 Base) Aug 01, 2 puffs HFA MCG/ACT 2018 Inhalation every 6 hours prn sob Incruse Ellipta [facility] 44317977341 62.5 MCG/INH Aug 01April Active 1 puff Inhalation Once 2018 12, a day 2019 blood glucose ND 0 n/s SC once a January Active one test strip 2018 Alcohol Prep Pads ND 0 topical once a January Active as day , directed 2018 2018 Lithobid [facility] 60247846700 300 MG Orally Active 1 tablet twice a day Seroquel ND 51892837494 400 MG Orally Dec 14, Active 1 tablet Once a day at 2017 bedtime Sildenafil ND 83350407435 100 MG Orally Oct Inactive 1 tablet Citrate Once a day 2018 Atorvastatin [facility] 66493126710 20 MG Orally Active 1 tablet Calcium Once a day Fish Oil [facility] 29714022698 1000 MG Orally Active 1 capsule Once a day Super B-Complex [facility] 81151472496 - Orally once a Active as day directed D3 Maximum [facility] 31129414820 5000 UNIT Active 1 capsule Strength Orally Once a day Memantine HCl [facility] 17370971417 10 MG Orally Active 1 tablet Twice a day Atorvastatin [facility] 39414666391 40 MG Orally Active 1 tablet Calcium Once a day Vitamin B12 [facility] 65945285233 1000 MCG Orally Active 1 tablet Once a day Cyanocobalamin [facility] 36417432109 2500 MCG Active as Sublingual once directed a day Co-Enzyme Q-10 [facility] 63854314591 100 MG Orally Active 2 capsule Once a day with a meal Zetia [facility] 47993183801 10 MG Orally Active 1 tablet Once a day Lancets Super NDC 0 n/s finger January Active one Thin stick once 2018 Diclofenac Sodium [facility] 98442042746 75 MG Orally Active 1 tablet Twice a day prn with food pain or milk Trazodone HCl [facility] 68080607505 100 MG Orally Active 1 tablet Once a day at bedtime Ascorbic Acid [facility] 28925035456 500 MG Orally Active 1 tablet twice a day Cialis [facility] 39105811171 20 MG Orally Aug 01Aug Active 1 tablet 2018 Thiamine [facility] 30484542535 50 MG Orally Active 2 capsules Once a day Vitamin B12 [facility] 60708503089 1000 MCG Orally Active 1 tablet Once a day Melatonin [facility] 05453378765 3 MG Orally Active 1 tablet Once a day at bedtime as needed with food Ezetimibe [facility] 00696117838 10 MG Orally Nov 15, Active 1 tablet Once a day 2018 Results Name Result Date Reference Range Unit Abnormality Flag Ct Low Dose Chest Screening Summary Purpose eClinicalWorks Submission
--- OUTSIDE RECORDS SUMMARY | 2019-11-28 12:46 | XMS REPORT ---
[...] End Status Dosage System Date Date Cipro [facility] 00747659149 500 MG Orally Nov Active 1 tablet every 12 hrs 2018 Metronidazole ND 96670741463 500 MG Orally Nov Active 1 tablet every 6 hours 2018 Lithobid [facility] 19034083564 300 MG Orally Active 1 tablet twice a day Atorvastatin ND 50675297012 20 MG Orally Active 1 tablet Calcium Once a day Co-Enzyme Q-10 ND 75332483791 100 MG Orally Active 2 capsule Once a day with a meal Melatonin [facility] 95787774014 3 MG Orally Active 1 tablet Once a day at bedtime as needed with food Cyanocobalamin [facility] 51708527022 2500 MCG Active as Sublingual once directed a day Memantine HCl ND 14393153516 10 MG Orally Active 1 tablet Twice a day Trazodone HCl [facility] 92265223687 100 MG Orally Active 1 tablet Once a day at bedtime Atorvastatin [facility] 17288060825 40 MG Orally Active 1 tablet Calcium Once a day Fish Oil ND 02858763780 1000 MG Orally Active 1 capsule Once a day Ranitidine HCl [facility] 78764113787 150 MG Active TAKE 1 TABLET BY MOUTH TWICE A DAY Thiamine [facility] 66658407440 50 MG Orally Active 2 capsules Once a day Super B-Complex [facility] 07568180176 - Orally once a Active as day directed Ezetimibe ND 43276535424 10 MG Orally Nov 15, Active 1 tablet Once a day 2018 D3 Maximum [facility] 06430871423 5000 UNIT Active 1 capsule Strength Orally Once a day Cyclobenzaprine ND 44966449056 10 MG Orally Sep 06Sep Active 1 tablet HCl once a day at 2018 11, as needed bedtime 2018 Ascorbic Acid [facility] 48057498347 500 MG Orally Active 1 tablet twice a day Lancets Super Thin NDC 0 n/s finger January Active one stick once 2018 Vitamin B12 [facility] 91135438501 1000 MCG Orally Active 1 tablet Once a day Albuterol Sulfate [facility] 10597237017 108 (90 Base) Aug 01, Active 2 puffs HFA MCG/ACT 2018 Inhalation every 6 hours prn sob Seroquel ND 87762725923 400 MG Orally Dec 14, Active 1 tablet Once a day at 2018 bedtime blood glucose test NDC 0 n/s SC once a January Active one strip day 2018 Diclofenac Sodium [facility] 91419574136 75 MG Orally Active 1 tablet Twice a day prn with food pain or milk Zetia [facility] 56625182531 10 MG Orally Active 1 tablet Once a day Vitamin B12 [facility] 62051120329 1000 MCG Orally Active 1 tablet Once a day Incruse Ellipta [facility] 11384878172 62.5 MCG/INH Aug 01April Active 1 puff Inhalation Once 2019 12, a day 2020 Results No Known Results Summary Purpose eClinicalWorks Submission
--- OUTSIDE RECORDS SUMMARY | 2019-11-28 12:46 | XMS REPORT ---
:1960 [facility] Address [address] [place] [address] Care Team Providers Name Role Phone Unavailable Unavailable Unavailable Problems This patient has no known problems. Allergies, Adverse Reactions, Alerts This patient has no known allergies or adverse reactions. Medications This patient has no known medications.
[2019-11-28 13:29] LABS: Absolute Lymphocytes (CBC) 0.8 K/uL (0.7-4.9); Basophils % 0.8 % (0-1.3); Hematocrit 37.1 % (39.6-49.0); Lymphocytes % 10.7 % (15.3-44.8); MPV 9.1 fL (7.6-11.3); RBC Red Blood Cell Count 4.21 M/uL (4.33-5.43)
[2019-11-28 13:48] LABS: Albumin 3.4 g/dL (3.4-5.0); Bilirubin Direct 0.1 mg/dL (0-0.2); Bilirubin Total 0.4 mg/dL (0.2-1.0); Potassium 3.7 mmol/L (3.5-5.1)
--- NOTE | 2019-11-28 14:58 | RAD REPORT ---
EXAM DESCRIPTION: CT - Abdomen Pelvis W Contrast - 11/28/2019 2:37 pm CLINICAL HISTORY: ABD PAIN COMPARISON: Abdomen Pelvis W Contrast dated 10/30/2019; Abdomen Pelvis W Contrast dated 10/24/2019; Abdomen Pelvis W Contrast dated 10/14/2019; Abdomen Pelvis W Contrast dated 09/29/2019 TECHNIQUE: Biphasic, helical CT imaging of the abdomen and pelvis was performed following 100 ml non -ionic IV contrast. No oral contrast administered. All CT scans are performed using dose optimization technique as appropriate and may include automated exposure control or mA/KV adjustment according to patient size. FINDINGS: No suspicious findings in the lung bases. The liver, spleen, and pancreas show no suspicious findings. Gallbladder and biliary tree are also wi thout suspicious finding. Symmetric renal function is seen with no hydronephrosis or suspicious renal mass. No pyelonephritis o r acute parenchymal process. Nonobstructing calculi are present. Renal cyst in the lower pole right k idney shows no significant change. Mostly contracted urinary bladder shows no suspicious finding. No adrenal abnormalities. No gastric dilatation or gastric wall thickening. No dilated small bowel loops. Wall thickening and d iverticulosis of the proximal sigmoid colon noted. This is the site of prior diverticular abscess and diverticulitis. There is still stranding in the fatty tissues. There is some mild secondary involvem ent of the small bowel in this region. extraluminal air in soft tissue stranding are still present. T he small abscess collections have decreased in size. There is extraluminal air and stranding along th e deep wall of the left mid abdomen. No pneumatosis. No distant free air. No new mass or bulky lymphadenopathy. No suspicious bony findings. IMPRESSION: The left lower abdomen diverticular abscess collections have decreased in size. There do es continue to be extraluminal air and stranding in this location. Remnant diverticulitis seen. No distant free air. No new or progressive abscess collection.
--- NOTE | 2019-11-28 15:30 | EDPHYS ---
Physician Documentation [facility] Name: Gregory Dumont Age: 59 yrs Sex: Male : 1960 Arrival Date: 11/28/2019 Time: 12:49 Bed 18 Private MD: ED Physician Mick Arshad HPI: 11/28 17:25 This 59 yrs old Male presents to ER via EMS with complaints of Abdominal Pain.kdr 17:25 The patient presents with abdominal pain in the left lower quadrant. Onset: The kdr symptoms/episode began/occurred suddenly, today. The symptoms do not radiate. Associated signs and symptoms: none. The symptoms are described as achy, crampy, sharp, steady, vague, waxing/waning. Modifying factors: The symptoms are alleviated by nothing, the symptoms are aggravated by movement, walking. Severity of pain: At its worst the pain was mild. The patient has experienced similar episodes in the past, multiple times. The patient has been recently seen by a physician: the patient's primary care provider. Historical: - Allergies: 12:40 NKA; rb1 - Home Meds: 12:40 [place] Carbonate Oral [Active]; venlafaxine Oral [Active]; rb1 - PMHx: 12:40 ADD/ADHD; Bipolar disorder; CVA; HEP C; HYPOGLYCEMIA; Irregular heart rate; rb1 - PSHx: 12:40 Knee surgery; rb1 - Immunization history:: Adult Immunizations up to date. - Coronavirus screen:: The patient has NOT traveled to [place] in the past 14 days. The patient has NOT had contact with known/suspected case of Coronavirus?. - Social history:: Smoking status: Patient reports the use of cigarette tobacco products, denies chronic smoking, but will smoke occasionally. - Ebola Screening: : Patient negative for fever greater than or equal to 101.5 degrees Fahrenheit, and additional compatible Ebola Virus Disease symptoms. ROS: 17:25 Constitutional: Negative for fever, chills, and weight loss, Eyes: Negative for injury, kdr pain, redness, and discharge, ENT: Negative for injury, pain, and discharge, Neck: Negative for injury, pain, and swelling, Cardiovascular: Negative for chest pain, palpitations, and edema, Respiratory: Negative for shortness of breath, cough, wheezing, and pleuritic chest pain, Back: Negative for injury and pain, : Negative for injury, bleeding, discharge, and swelling, MS/Extremity: Negative for injury and deformity, Skin: Negative for injury, rash, and discoloration, Neuro: Negative for headache, weakness, numbness, tingling, and seizure activity. Psych: Negative for depression, anxiety, suicide ideation, homicidal ideation, and hallucinations, Allergy/Immunology: Negative for hives, rash, and allergies, Endocrine: Negative for neck swelling, polydipsia, polyuria, polyphagia, and marked weight changes, Hematologic/Lymphatic: Negative for swollen nodes, abnormal bleeding, and unusual bruising. 17:25 Abdomen/GI: Positive for abdominal pain, nausea, rectal bleeding, Negative for vomiting, diarrhea, constipation, abdominal distension, anorexia, black/tarry stool, rectal pain. Exam: 17:25 Constitutional: This is a well developed, well nourished patient who is awake, alert, kdr and in no acute distress. Head/Face: Normocephalic, atraumatic. Eyes: Pupils equal round and reactive to light, extra-ocular motions intact. Lids and lashes normal. Conjunctiva and sclera are non-icteric and not injected. Cornea within normal limits. Periorbital areas with no swelling, redness, or edema. Neck: Trachea midline, no thyromegaly or masses palpated, and no cervical lymphadenopathy. Supple, full range of motion without nuchal rigidity, or vertebral point tenderness. No Meningismus. Chest/axilla: Normal chest wall appearance and motion. Nontender with no deformity. No lesions are appreciated. Cardiovascular: Regular rate and rhythm with a normal S1 and S2. No gallops, murmurs, or rubs. Normal PMI, no JVD. No pulse deficits. Respiratory: Lungs have equal breath sounds bilaterally, clear to auscultation and percussion. No rales, rhonchi or wheezes noted. No increased work of breathing, no retractions or nasal flaring. Back: No spinal tenderness. No costovertebral tenderness. Full range of motion. Skin: Warm, dry with normal turgor. Normal color with no rashes, no lesions, and no evidence of cellulitis. MS/ Extremity: Pulses equal, no cyanosis. Neurovascular intact. Full, normal range of motion. Neuro: Awake and alert, GCS 15, oriented to person, place, time, and situation. Cranial nerves II-XII grossly intact. Motor strength 5/5 in all extremities. Sensory grossly intact. Cerebellar exam normal. Normal gait. Psych: Awake, alert, with orientation to person, place and time. Behavior, mood, and affect are within normal limits. 17:25 Abdomen/GI: Inspection: abdomen appears normal, obese Bowel sounds: active, all quadrants, Palpation: soft, mild abdominal tenderness, in the left lower quadrant, Rectal exam: Prostate: normal, rectal tone normal, Stool: guaiac negative. Vital Signs: 12:40 BP 140 / 74; Pulse 73; Resp 17; Temp 98.2(O); Pulse Ox 99% on R/A; Weight 63.5 kg (R); rb1 Height 5 ft. 11 in. (180.34 cm) (R); Pain 8/10; 14:40 BP 152 / 81; Pulse 63; Resp 18; Pulse Ox 98% on R/A; rb1 15:40 BP 147 / 75; Pulse 66; Resp 19; Pulse Ox 100% on R/A; rb1 12:40 Body Mass Index 19.53 (63.50 kg, 180.34 cm) rb1 MDM: 15:29 Patient medically screened. kdr 17:25 Data reviewed: vital signs, nurses notes, lab test result(s), radiologic studies. kdr Counseling: I had a detailed discussion with the patient and/or guardian regarding: the historical points, exam findings, and any diagnostic results supporting the discharge/admit diagnosis, lab results, radiology results, the need for outpatient follow up. 17:30 Special discussion: Based on the patient's Hx, exam, and Dx evaluation, there is no kdr indication for emergent surgery or inpatient Tx. It is understood by the patient/guardian that if the Sx's persist or worsen they need to return immediately for re-evaluation. I discussed with the patient/guardian in detail that at this point there is no indication for admission to the hospital. It is understood, however, that if the symptoms persist or worsen the patient needs to return immediately for re-evaluation. 11/28 13:08 Order name: Basic Metabolic Panel kdr 11/28 13:08 Order name: CBC with Diff kdr 11/28 13:08 Order name: Creatinine for Radiology kdr 11/28 13:08 Order name: Hepatic Function kdr 11/28 13:08 Order name: Lipase kdr 11/28 13:20 Order name: Occult Blood--Ancillary bd 11/28 13:30 Order name: CBC with Automated Diff; Complete Time: 15:26 EDIN 11/28 13:44 Order name: Creatinine (Radiology Only); Complete Time: 15:26 EDIN 11/28 13:49 Order name: Basic Metabolic Panel; Complete Time: 15: EDIN 11/28 13:49 Order name: Liver (Hepatic) Function; Complete Time: 15: EDIN 11/28 13:49 Order name: Lipase; Complete Time: 15:26 EDIN 11/28 14:10 Order name: Occult Blood--Ancillary; Complete Time: 15:26 EDIN 11/28 14:21 Order name: CT Abd/Pelvis - IV Contrast Only kdr 11/28 15:16 Order name: CT; Complete Time: 15:26 EDIN 11/28 13:08 Order name: IV Saline Lock; Complete Time: 13:18 kdr 11/28 13:08 Order name: Labs collected and sent; Complete Time: 13:19 kdr Administered Medications: No medications were administered Disposition: 11/28/19 15:29 Discharged to Home. Impression: Abdominal and pelvic pain, Diverticulosis of small intestine without perforation or abscess with bleeding - Imrpoving frorm last CT and no new/concerning findings. - Condition is Stable. - Discharge Instructions: Abdominal Pain, Adult, [id number]. - Prescriptions for Bentyl 20 mg Oral Tablet - take 1 tablet by ORAL route every 6 hours As needed; 20 tablet. Pepcid 20 mg Oral Tablet - take 1 tablet by ORAL route every 12 hours for 5 days; 10 tablet. Zofran 4 mg Oral Tablet - take 1 tablet by ORAL route every 12 hours As needed; 6 tablet. Tramadol 50 mg Oral Tablet - take 1 tablet by ORAL route every 8 hours as needed; 12 tablet. - Medication Reconciliation Form, Thank You Letter, Antibiotic Education, Prescription Opioid Use form. - Follow up: Private Physician; When: 2 - 3 days; Reason: If symptoms return, Further diagnostic work-up, Recheck today's complaints, Continuance of care, Re-evaluation by your physician. - Problem is an acute exacerbation. - Symptoms have improved. - Notes: Coontinue with your current antibiotics and follow-up with Dr. Decker as soon as possible Signatures: Dispatcher [employer] EDMS Mick Arshad MD MD kdr Tara Slaughter RN RN rb1 Corrections: (The following items were deleted from the chart) 16:36 15:29 11/28/2019 15:29 Discharged to Home. Impression: Abdominal and pelvic pain; rb1 Diverticulosis of small intestine without perforation or abscess with bleeding - Imrpoving frorm last CT and no new/concerning findings. Condition is Stable. Forms are Medication Reconciliation Form, Thank You Letter, Antibiotic Education, Prescription Opioid Use. Follow up: Private Physician; When: 2 - 3 days; Reason: If symptoms return, Further diagnostic work-up, Recheck today's complaints, Continuance of care, Re-evaluation by your physician. Problem is an acute exacerbation. Symptoms have improved. kdr
--- NOTE | 2019-11-28 15:30 | ER ---
Nurse's Notes [facility] Name: Gregory Dumont Age: 59 yrs Sex: Male : 1960 Arrival Date: 11/28/2019 Time: 12:49 Bed 18 Private MD: Diagnosis: Abdominal and pelvic pain;Diverticulosis of small intestine without perforation or abscess with bleeding-Imrpoving frorm last CT and no new/concerning findings Presentation: 11/28 12:40 Presenting complaint: EMS states: C/o abdominal pain. Vital Signs are stable. Pt. rb1 ambulated to the stretcher without difficulty. A \T\ O x 4. 12:40 Transition of care: patient was not received from another setting of care. Onset of rb1 symptoms was November 28, 2019. Risk Assessment: Do you want to hurt yourself or someone else? Patient reports no desire to harm self or others. Initial Sepsis Screen: Does the patient meet any 2 criteria? No. Patient's initial sepsis screen is negative. Does the patient have a suspected source of infection? No. Patient's initial sepsis screen is negative. Care prior to arrival: None. 12:40 Method Of Arrival: EMS: [place] [id number] 12:40 Acuity: MARION 3 rb1 Triage Assessment: 12:40 General: Appears in no apparent distress. comfortable, Behavior is calm, cooperative, rb1 Denies fever. Pain: Complains of pain in left upper quadrant and left lower quadrant Pain currently is 8 out of 10 on a pain scale. Neuro: Level of Consciousness is awake, alert, obeys commands, Oriented to person, place, time, situation. Cardiovascular: Capillary refill < 3 seconds is brisk in bilateral fingers. Respiratory: Airway is patent Respiratory effort is even, unlabored, Respiratory pattern is regular, symmetrical. GI: No signs and/or symptoms were reported involving the gastrointestinal system. : No signs and/or symptoms were reported regarding the genitourinary system. Derm: Skin is pink, warm \T\ dry. Musculoskeletal: Range of motion: intact in all extremities. Historical: - Allergies: 12:40 NKA; rb1 - Home Meds: 12:40 [place] Carbonate Oral [Active]; venlafaxine Oral [Active]; rb1 - PMHx: 12:40 ADD/ADHD; Bipolar disorder; CVA; HEP C; HYPOGLYCEMIA; Irregular heart rate; rb1 - PSHx: 12:40 Knee surgery; rb1 - Immunization history:: Adult Immunizations up to date. - Coronavirus screen:: The patient has NOT traveled to [place] in the past 14 days. The patient has NOT had contact with known/suspected case of Coronavirus?. - Social history:: Smoking status: Patient reports the use of cigarette tobacco products, denies chronic smoking, but will smoke occasionally. - Ebola Screening: : Patient negative for fever greater than or equal to 101.5 degrees Fahrenheit, and additional compatible Ebola Virus Disease symptoms. Screenin:40 Abuse screen: Denies threats or abuse. Nutritional screening: No deficits noted. rb1 Tuberculosis screening: No symptoms or risk factors identified. Fall Risk None identified. Assessment: 12:40 General: See triage assessment. rb1 13:40 Reassessment: Patient appears in no apparent distress at this time. No changes from rb1 previously documented assessment. 14:40 Reassessment: Patient appears in no apparent distress at this time. Patient and/or rb1 family updated on plan of care and expected duration. Pain level reassessed. Patient is alert, oriented x 3, equal unlabored respirations, skin warm/dry/pink. 15:40 Reassessment: Patient appears in no apparent distress at this time. No changes from rb1 previously documented assessment. Vital Signs: 12:40 BP 140 / 74; Pulse 73; Resp 17; Temp 98.2(O); Pulse Ox 99% on R/A; Weight 63.5 kg (R); rb1 Height 5 ft. 11 in. (180.34 cm) (R); Pain 8/10; 14:40 BP 152 / 81; Pulse 63; Resp 18; Pulse Ox 98% on R/A; rb1 15:40 BP 147 / 75; Pulse 66; Resp 19; Pulse Ox 100% on R/A; rb1 12:40 Body Mass Index 19.53 (63.50 kg, 180.34 cm) rb1 ED Course: 12:40 Arm band placed on right wrist. rb1 12:40 Patient has correct armband on for positive identification. Bed in low position. Call rb1 light in reach. Side rails up X 1. Pulse ox on. NIBP on. Warm blanket given. 12:49 Patient arrived in ED. bd 12:49 Tara Slaughter, RN is Primary Nurse. rb1 12:51 Triage completed. rb1 13:07 Mick Arshad MD is Attending Physician. kdr 13:17 Initial lab(s) drawn, by nc, sent to lab. Inserted saline lock: 22 gauge in right lt1 antecubital area, using aseptic technique. 13:19 Lipase Sent. lt1 13:19 Hepatic Function Sent. lt1 13:19 Creatinine for Radiology Sent. lt1 13:19 CBC with Diff Sent. lt1 13:20 Basic Metabolic Panel Sent. lt1 16:09 No provider procedures requiring assistance completed. IV discontinued, intact, rb1 bleeding controlled, No redness/swelling at site. Pressure dressing applied. Administered Medications: No medications were administered Outcome: 15:29 Discharge ordered by . kdr 16:09 Patient left the ED. rb1 16:09 Discharged to home ambulatory. rb1 16:09 Condition: stable 16:09 Discharge instructions given to patient, Instructed on discharge instructions, follow up and referral plans. medication usage, Demonstrated understanding of instructions, follow-up care, medications, Prescriptions given X 4. Signatures: Khushi Thompson Kevin, MD MD [facility] Tara Slaughter, RN RN rb1 Codie Shah lt1 Corrections: (The following items were deleted from the chart) 16:41 16:36 Patient left the ED. rb1 rb1 16:42 16:36 Patient left the ED. rb1 rb1
[2019-11-29 21:51] VITALS: BP 147/75; O2SAT 100
== END 2019-11-28 16:36 | disposition home or self-care (01) ==
LOC: ER 12:42
DX: K57.10 Diverticulosis of small intestine without perforation or abscess without bleeding (principal); Z72.0 Tobacco use; F31.9 Bipolar disorder, unspecified; F90.9 Attention-deficit hyperactivity disorder, unspecified type
CPT/HCPCS: 85025; 80048; 36415; 80076; 82272; 83690; 74177; 99284; Q9967

== ENCOUNTER 2019-12-24 09:20 | Emergency (ER) | payer OTHER ==
--- OUTSIDE RECORDS SUMMARY | 2019-12-24 09:38 | XMS REPORT ---
:1960 [facility] Address [address] [place] [address] Dr. Nicole [address] [place] [id number] Care Team Providers Name Role Phone Unavailable Unavailable Unavailable Problems This patient has no known problems. Allergies, Adverse Reactions, Alerts This patient has no known allergies or adverse reactions. Medications This patient has no known medications.
--- OUTSIDE RECORDS SUMMARY | 2019-12-24 09:39 | XMS REPORT ---
[...] Status Dosage System Date Date Albuterol Sulfate [facility] 73713459844 108 (90 Base) Aug 01, 2 puffs HFA MCG/ACT 2018 Inhalation every 6 hours prn sob Incruse Ellipta [facility] 15484833240 62.5 MCG/INH Aug 01April Active 1 puff Inhalation Once 2018 12, a day 2019 blood glucose ND 0 n/s SC once a January Active one test strip 2018 Alcohol Prep Pads ND 0 topical once a January Active as day , directed 2018 2018 Lithobid [facility] 93145064813 300 MG Orally Active 1 tablet twice a day Seroquel ND 81242094479 400 MG Orally Dec 14, Active 1 tablet Once a day at 2017 bedtime Sildenafil ND 02746403829 100 MG Orally Oct Inactive 1 tablet Citrate Once a day 2018 Atorvastatin [facility] 89899901947 20 MG Orally Active 1 tablet Calcium Once a day Fish Oil [facility] 01990274568 1000 MG Orally Active 1 capsule Once a day Super B-Complex [facility] 04258083519 - Orally once a Active as day directed D3 Maximum [facility] 80129568659 5000 UNIT Active 1 capsule Strength Orally Once a day Memantine HCl [facility] 90892299260 10 MG Orally Active 1 tablet Twice a day Atorvastatin [facility] 53874654919 40 MG Orally Active 1 tablet Calcium Once a day Vitamin B12 [facility] 48726411674 1000 MCG Orally Active 1 tablet Once a day Cyanocobalamin [facility] 30838212634 2500 MCG Active as Sublingual once directed a day Co-Enzyme Q-10 [facility] 72322937339 100 MG Orally Active 2 capsule Once a day with a meal Zetia [facility] 29433412375 10 MG Orally Active 1 tablet Once a day Lancets Super NDC 0 n/s finger January Active one Thin stick once 2018 Diclofenac Sodium [facility] 46884376590 75 MG Orally Active 1 tablet Twice a day prn with food pain or milk Trazodone HCl [facility] 92201579156 100 MG Orally Active 1 tablet Once a day at bedtime Ascorbic Acid [facility] 53933456210 500 MG Orally Active 1 tablet twice a day Cialis [facility] 16146801016 20 MG Orally Aug 01Aug Active 1 tablet 2018 Thiamine [facility] 48565535400 50 MG Orally Active 2 capsules Once a day Vitamin B12 [facility] 30385552597 1000 MCG Orally Active 1 tablet Once a day Melatonin [facility] 23338209620 3 MG Orally Active 1 tablet Once a day at bedtime as needed with food Ezetimibe [facility] 35626484690 10 MG Orally Nov 15, Active 1 tablet Once a day 2018 Results Name Result Date Reference Range Unit Abnormality Flag Ct Low Dose Chest Screening Summary Purpose eClinicalWorks Submission
--- OUTSIDE RECORDS SUMMARY | 2019-12-24 09:39 | XMS REPORT ---
[...] End Status Dosage System Date Date Cipro [facility] 84566538734 500 MG Orally Nov Active 1 tablet every 12 hrs 2018 Metronidazole ND 20812335611 500 MG Orally Nov Active 1 tablet every 6 hours 2018 Lithobid [facility] 55789101360 300 MG Orally Active 1 tablet twice a day Atorvastatin ND 15778809142 20 MG Orally Active 1 tablet Calcium Once a day Co-Enzyme Q-10 ND 33655196069 100 MG Orally Active 2 capsule Once a day with a meal Melatonin [facility] 93146101903 3 MG Orally Active 1 tablet Once a day at bedtime as needed with food Cyanocobalamin [facility] 63590412227 2500 MCG Active as Sublingual once directed a day Memantine HCl ND 21861107324 10 MG Orally Active 1 tablet Twice a day Trazodone HCl [facility] 49619864356 100 MG Orally Active 1 tablet Once a day at bedtime Atorvastatin [facility] 47119882241 40 MG Orally Active 1 tablet Calcium Once a day Fish Oil ND 19113395632 1000 MG Orally Active 1 capsule Once a day Ranitidine HCl [facility] 98219935074 150 MG Active TAKE 1 TABLET BY MOUTH TWICE A DAY Thiamine [facility] 79033097114 50 MG Orally Active 2 capsules Once a day Super B-Complex [facility] 03821988269 - Orally once a Active as day directed Ezetimibe ND 98478037454 10 MG Orally Nov 15, Active 1 tablet Once a day 2018 D3 Maximum [facility] 97421703234 5000 UNIT Active 1 capsule Strength Orally Once a day Cyclobenzaprine ND 65617567509 10 MG Orally Sep 06Sep Active 1 tablet HCl once a day at 2018 11, as needed bedtime 2018 Ascorbic Acid [facility] 43571273558 500 MG Orally Active 1 tablet twice a day Lancets Super Thin NDC 0 n/s finger January Active one stick once 2018 Vitamin B12 [facility] 37246557317 1000 MCG Orally Active 1 tablet Once a day Albuterol Sulfate [facility] 05132698660 108 (90 Base) Aug 01, Active 2 puffs HFA MCG/ACT 2018 Inhalation every 6 hours prn sob Seroquel ND 78387796794 400 MG Orally Dec 14, Active 1 tablet Once a day at 2018 bedtime blood glucose test NDC 0 n/s SC once a January Active one strip day 2018 Diclofenac Sodium [facility] 29093743053 75 MG Orally Active 1 tablet Twice a day prn with food pain or milk Zetia [facility] 92932920510 10 MG Orally Active 1 tablet Once a day Vitamin B12 [facility] 67358393349 1000 MCG Orally Active 1 tablet Once a day Incruse Ellipta [facility] 71079564880 62.5 MCG/INH Aug 01April Active 1 puff Inhalation Once 2019 12, a day 2020 Results No Known Results Summary Purpose eClinicalWorks Submission
[2019-12-24 10:14] LABS: Absolute Lymphocytes (CBC) 1.1 K/uL (0.7-4.9); Basophils % 1.1 % (0-1.3); Hematocrit 41.7 % (39.6-49.0); Lymphocytes % 10.2 % (15.3-44.8); MPV 9.2 fL (7.6-11.3); RBC Red Blood Cell Count 4.75 M/uL (4.33-5.43)
[2019-12-24 10:39] LABS: Albumin 3.5 g/dL (3.4-5.0); Bilirubin Direct 0.1 mg/dL (0-0.2); Bilirubin Total 0.3 mg/dL (0.2-1.0); Thyroid Stimulating Hormone 0.84 uIU/mL (0.360-3.740)
[2019-12-24] MEDS ORDERED: DIAZEPAM 2 MG TABLET ONE (11:04)
--- NOTE | 2019-12-24 11:16 | EDPHYS ---
Physician Documentation [facility] Name: Gregory Dumont Age: 59 yrs Sex: Male : 1960 Arrival Date: 12/24/2019 Time: 09:24 Bed 4 Private MD: Lucy Gomes ED Physician Cameron Avery HPI: 12/23 10:50 This 59 yrs old Male presents to ER via Ambulatory with complaints of tremor. rn 10:50 Reports 3 days of tremor in hands, intermittent, worse when reaching for things, no rn loss of strength, no head injury, no other focal neurological complaint. Reports on abx for diverticulitis, and no change in lithium prescription, has been on for years. . 11:12 Onset: The symptoms/episode began/occurred 3 day(s) ago. Severity of symptoms: At their rn worst the symptoms were mild in the emergency department the symptoms are unchanged. The patient has not experienced similar symptoms in the past. The patient has not recently seen a physician. Historical: - Allergies: 09:39 NKA; sv - PMHx: 09:39 ADD/ADHD; Bipolar disorder; CVA; HEP C; HYPOGLYCEMIA; Irregular heart rate; sv Diverticulitis; - PSHx: 09:39 Knee surgery; sv - Immunization history:: Adult Immunizations up to date. - Social history:: Smoking status: Patient reports the use of cigarette tobacco products, denies chronic smoking, but will smoke occasionally. - Family history:: not pertinent. - Hospitalizations: : No recent hospitalization is reported. ROS: 11:12 Constitutional: Negative for fever, chills, and weight loss, Eyes: Negative for injury, rn pain, redness, and discharge, Neck: Negative for injury, pain, and swelling, Cardiovascular: Negative for chest pain, palpitations, and edema, Respiratory: Negative for shortness of breath, cough, wheezing, and pleuritic chest pain, Abdomen/GI: Negative for abdominal pain, nausea, vomiting, diarrhea, and constipation, Back: Negative for injury and pain, MS/Extremity: Negative for injury and deformity, Skin: Negative for injury, rash, and discoloration, Neuro: Negative for headache, weakness, numbness, tingling, and seizure, + tremors of hands Exam: 11:12 Constitutional: This is a well developed, well nourished patient who is awake, alert, rn and in no acute distress. Head/Face: Normocephalic, atraumatic. ENT: MMM Cardiovascular: Regular rate and rhythm. No pulse deficits. Respiratory: No increased work of breathing, no retractions or nasal flaring. Abdomen/GI: soft, non-tender Skin: Warm, dry MS/ Extremity: Pulses equal, no cyanosis. Neurovascular intact. Full, normal range of motion. Equal circumference. Fine tremor noted when reaching. no tremor noted when hands laying on bed or when still. Vital Signs: 09:37 BP 141 / 103; Pulse 98; Resp 20; Temp 97.7; Pulse Ox 97% ; Weight 58.97 kg; Height 5 sv ft. 11 in. (180.34 cm); Pain 0/10; 10:12 BP 138 / 93; Pulse 82; Resp 18; Pulse Ox 97% on R/A; sv 10:58 BP 136 / 97; Pulse 79; Resp 16; Pulse Ox 99% ; sv 09:37 Body Mass Index 18.13 (58.97 kg, 180.34 cm) sv MDM: 09:27 Patient medically screened. rn 11:12 Differential Diagnosis lithium toxicity, hyperthyroidism, liver problems, intention rn tremor. Data reviewed: vital signs, nurses notes, lab test result(s), and as a result, I will discharge patient. Counseling: I had a detailed discussion with the patient and/or guardian regarding: the historical points, exam findings, and any diagnostic results supporting the discharge/admit diagnosis, lab results, the need for outpatient follow up, to return to the emergency department if symptoms worsen or persist or if there are any questions or concerns that arise at home. Response to treatment: the patient's symptoms have mildly improved after treatment, and as a result, I will discharge patient. Special discussion: I discussed with the patient/guardian in detail that at this point there is no indication for admission to the hospital. It is understood, however, that if the symptoms persist or worsen the patient needs to return immediately for re-evaluation. Based on the history and exam findings, there is no indication for further emergent testing or inpatient evaluation. I discussed with the patient/guardian the need to see the neurologist for further evaluation of the symptoms. ED course: Sees dr. chiu, will make an appointment and f/u. . 12/23 09:44 Order name: CBC with Diff; Complete Time: 10:49 rn 12/23 09:44 Order name: Basic Metabolic Panel; Complete Time: 10:49 rn 12/23 09:44 Order name: [place]; Complete Time: 10:53 rn 12/23 09:44 Order name: LFT's; Complete Time: 10:49 rn 12/23 09:44 Order name: TSH; Complete Time: 10:49 rn 12/23 09:44 Order name: T4 Free; Complete Time: 10:49 rn 12/23 09:44 Order name: IV Start; Complete Time: 10:11 rn Administered Medications: 11:01 Drug: Valium 2 mg Route: PO; sv 11:33 Follow up: Response: No adverse reaction sv Disposition: 12/24/19 11:15 Discharged to Home. Impression: Tremor, unspecified. - Condition is Stable. - Discharge Instructions: Tremor. - Medication Reconciliation Form, Thank You Letter, Antibiotic Education, Prescription Opioid Use form. - Follow up: Tigre Chiu MD; When: As needed; Reason: Recheck today's complaints, Re-evaluation by your physician. - Problem is new. - Symptoms have improved. Signatures: Dispatcher [employer] EDTracey Goetz RN RN Cameron Sabillon MD MD clinical nursing intern: (The following items were deleted from the chart) 11:33 11:15 12/24/2019 11:15 Discharged to Home. Impression: Tremor, unspecified. Condition sv is Stable. Forms are Medication Reconciliation Form, Thank You Letter, Antibiotic Education, Prescription Opioid Use. Follow up: Tigre Chiu; When: As needed; Reason: Recheck today's complaints, Re-evaluation by your physician. Problem is new. Symptoms have improved. rn
--- NOTE | 2019-12-24 11:16 | ER ---
Nurse's Notes [facility] Name: Gregory Dumont Age: 59 yrs Sex: Male : 1960 Arrival Date: 12/24/2019 Time: 09:24 Bed 4 Private MD: Lucy Gomes Diagnosis: Tremor, unspecified Presentation: 12/23 09:37 Chief complaint: Patient states: "My arms and legs have been shaking since Tuesday." sv Denies ETOH. Reports that he has been on abx and stomach meds for a colon infection for about 2 weeks. Coronavirus screen: The patient has NOT traveled to a country currently being monitored by the [facility] within the last 14 days. Proceed with normal triage procedures. The patient has NOT had contact with any known and/or suspected case of coronavirus. Proceed with normal triage procedures. Ebola Screen: No symptoms or risks identified at this time. Initial Sepsis Screen: Does the patient meet any 2 criteria? HR > 90 bpm. No. Patient's initial sepsis screen is negative. Does the patient have a suspected source of infection? No. Patient's initial sepsis screen is negative. Risk Assessment: Do you want to hurt yourself or someone else? Patient reports no desire to harm self or others. 09:37 Method Of Arrival: Ambulatory 09:37 Acuity: MARION 2 sv 09:41 Onset of symptoms was December 22, 2019. Triage Assessment: 09:40 General: Appears in no apparent distress. comfortable, Behavior is calm, cooperative, sv appropriate for age. Pain: Denies pain. Neuro: Level of Consciousness is awake, alert, obeys commands, Oriented to person, place, time, situation, Moves all extremities. Full function Gait is steady, Speech is normal, Facial symmetry appears normal. Respiratory: Airway is patent Respiratory effort is even, unlabored, Respiratory pattern is regular, symmetrical. Derm: Skin is normal. Musculoskeletal: Circulation, motion, and sensation intact. Range of motion: intact in all extremities. Historical: - Allergies: 09:39 NKA; sv - PMHx: 09:39 ADD/ADHD; Bipolar disorder; CVA; HEP C; HYPOGLYCEMIA; Irregular heart rate; sv Diverticulitis; - PSHx: 09:39 Knee surgery; sv - Immunization history:: Adult Immunizations up to date. - Social history:: Smoking status: Patient reports the use of cigarette tobacco products, denies chronic smoking, but will smoke occasionally. - Family history:: not pertinent. - Hospitalizations: : No recent hospitalization is reported. Screenin:40 Abuse screen: Denies threats or abuse. Denies injuries from another. Nutritional sv screening: No deficits noted. Tuberculosis screening: No symptoms or risk factors identified. Fall Risk None identified. Assessment: 10:11 Reassessment: Patient appears in no apparent distress at this time. No changes from sv previously documented assessment. Patient and/or family updated on plan of care and expected duration. Pain level reassessed. Patient is alert, oriented x 3, equal unlabored respirations, skin warm/dry/pink. 11:01 Reassessment: Patient appears in no apparent distress at this time. No changes from sv previously documented assessment. Patient and/or family updated on plan of care and expected duration. Pain level reassessed. Patient is alert, oriented x 3, equal unlabored respirations, skin warm/dry/pink. 11:32 Reassessment: Patient appears in no apparent distress at this time. No changes from sv previously documented assessment. Patient and/or family updated on plan of care and expected duration. Pain level reassessed. Patient is alert, oriented x 3, equal unlabored respirations, skin warm/dry/pink. Vital Signs: 09:37 BP 141 / 103; Pulse 98; Resp 20; Temp 97.7; Pulse Ox 97% ; Weight 58.97 kg; Height 5 sv ft. 11 in. (180.34 cm); Pain 0/10; 10:12 BP 138 / 93; Pulse 82; Resp 18; Pulse Ox 97% on R/A; sv 10:58 BP 136 / 97; Pulse 79; Resp 16; Pulse Ox 99% ; sv 09:37 Body Mass Index 18.13 (58.97 kg, 180.34 cm) sv ED Course: 09:24 Patient arrived in ED. rg4 09:25 Lucy Gomes MD is Private Physician. rg4 09:26 Cameron Avery MD is Attending Physician. rn 09:30 Tracey Ceballos RN is Primary Nurse. sv 09:39 Triage completed. sv 09:40 ED physician to see patient. sv 09:40 Arm band placed on Patient placed in an exam room, on a stretcher, on pulse oximetry. sv 09:40 Patient has correct armband on for positive identification. Placed in gown. Bed in low sv position. Call light in reach. Pulse ox on. NIBP on. Door closed. Head of bed elevated. 10:05 Inserted saline lock: 20 gauge in right antecubital area, using aseptic technique. sv Blood collected. Flushed right antecubital with 5 ml normal saline. 10:11 Awaiting lab results. sv 11:15 Tigre Romero MD is Referral Physician. rn 11:33 No provider procedures requiring assistance completed. IV discontinued, intact, sv bleeding controlled, No redness/swelling at site. Pressure dressing applied. Administered Medications: 11:01 Drug: Valium 2 mg Route: PO; sv 11:33 Follow up: Response: No adverse reaction sv Outcome: 11:15 Discharge ordered by . rn 11:33 Discharged to home ambulatory. sv 11:33 Condition: stable 11:33 Discharge instructions given to patient, Instructed on discharge instructions, follow up and referral plans. Demonstrated understanding of instructions, follow-up care. 11:33 Patient left the ED. sv Signatures: Tracey Ceballos, RN Cameron Khan MD MD rn Garcia, Rubi rg4
[2019-12-24 11:45] VITALS: TEMP 97.7
[2019-12-24 11:48] VITALS: BP 136/97; O2SAT 99
== END 2019-12-24 11:33 | disposition home or self-care (01) ==
LOC: ER 09:20
DX: R25.1 Tremor, unspecified (principal); F17.210 Nicotine dependence, cigarettes, uncomplicated
CPT/HCPCS: 36415; 80048; 80076; 80178; 84439; 84443; 85025; 99284

== ENCOUNTER 2019-12-29 16:00 | Emergency (ER) | payer OTHER ==
--- OUTSIDE RECORDS SUMMARY | 2019-12-29 16:02 | XMS REPORT ---
[...] Status Dosage System Date Date Albuterol Sulfate [facility] 78471884943 108 (90 Base) Aug 01, 2 puffs HFA MCG/ACT 2018 Inhalation every 6 hours prn sob Incruse Ellipta [facility] 89254652005 62.5 MCG/INH Aug 01April Active 1 puff Inhalation Once 2018 12, a day 2019 blood glucose ND 0 n/s SC once a January Active one test strip 2018 Alcohol Prep Pads ND 0 topical once a January Active as day , directed 2018 2018 Lithobid [facility] 50517505834 300 MG Orally Active 1 tablet twice a day Seroquel ND 80268875147 400 MG Orally Dec 14, Active 1 tablet Once a day at 2017 bedtime Sildenafil ND 76158716169 100 MG Orally Oct Inactive 1 tablet Citrate Once a day 2018 Atorvastatin [facility] 09948044650 20 MG Orally Active 1 tablet Calcium Once a day Fish Oil [facility] 16895698027 1000 MG Orally Active 1 capsule Once a day Super B-Complex [facility] 37226948237 - Orally once a Active as day directed D3 Maximum [facility] 40922527996 5000 UNIT Active 1 capsule Strength Orally Once a day Memantine HCl [facility] 47841210725 10 MG Orally Active 1 tablet Twice a day Atorvastatin [facility] 34063908649 40 MG Orally Active 1 tablet Calcium Once a day Vitamin B12 [facility] 52935584777 1000 MCG Orally Active 1 tablet Once a day Cyanocobalamin [facility] 94795005709 2500 MCG Active as Sublingual once directed a day Co-Enzyme Q-10 [facility] 35470884184 100 MG Orally Active 2 capsule Once a day with a meal Zetia [facility] 50182148774 10 MG Orally Active 1 tablet Once a day Lancets Super NDC 0 n/s finger January Active one Thin stick once 2018 Diclofenac Sodium [facility] 47830478608 75 MG Orally Active 1 tablet Twice a day prn with food pain or milk Trazodone HCl [facility] 87535575291 100 MG Orally Active 1 tablet Once a day at bedtime Ascorbic Acid [facility] 57616120658 500 MG Orally Active 1 tablet twice a day Cialis [facility] 92939479806 20 MG Orally Aug 01Aug Active 1 tablet 2018 Thiamine [facility] 66160514460 50 MG Orally Active 2 capsules Once a day Vitamin B12 [facility] 75149669103 1000 MCG Orally Active 1 tablet Once a day Melatonin [facility] 50188077012 3 MG Orally Active 1 tablet Once a day at bedtime as needed with food Ezetimibe [facility] 01650819955 10 MG Orally Nov 15, Active 1 tablet Once a day 2018 Results Name Result Date Reference Range Unit Abnormality Flag Ct Low Dose Chest Screening Summary Purpose eClinicalWorks Submission
--- OUTSIDE RECORDS SUMMARY | 2019-12-29 16:02 | XMS REPORT ---
:1960 [facility] Address [address] Nicole [address] [place] [id number] Care Team Providers Name Role Phone Unavailable Unavailable Unavailable Problems This patient has no known problems. Allergies, Adverse Reactions, Alerts This patient has no known allergies or adverse reactions. Medications This patient has no known medications.
--- OUTSIDE RECORDS SUMMARY | 2019-12-29 16:03 | XMS REPORT ---
[...] Status Dosage System Date Date Cipro [facility] 04128130788 500 MG Orally Nov Active 1 tablet every 12 hrs 2018 Metronidazole ND 00037189557 500 MG Orally Nov Active 1 tablet every 6 hours 2018 Lithobid [facility] 95564037456 300 MG Orally Active 1 tablet twice a day Atorvastatin ND 41604153764 20 MG Orally Active 1 tablet Calcium Once a day Co-Enzyme Q-10 ND 89372761974 100 MG Orally Active 2 capsule Once a day with a meal Melatonin [facility] 19844320509 3 MG Orally Active 1 tablet Once a day at bedtime as needed with food Cyanocobalamin [facility] 49236773451 2500 MCG Active as Sublingual once directed a day Memantine HCl ND 33639965785 10 MG Orally Active 1 tablet Twice a day Trazodone HCl [facility] 61184881914 100 MG Orally Active 1 tablet Once a day at bedtime Atorvastatin [facility] 16622293573 40 MG Orally Active 1 tablet Calcium Once a day Fish Oil ND 42504179952 1000 MG Orally Active 1 capsule Once a day Ranitidine HCl [facility] 84283073629 150 MG Active TAKE 1 TABLET BY MOUTH TWICE A DAY Thiamine [facility] 35946806654 50 MG Orally Active 2 capsules Once a day Super B-Complex [facility] 54039894173 - Orally once a Active as day directed Ezetimibe ND 53689551219 10 MG Orally Nov 15, Active 1 tablet Once a day 2018 D3 Maximum [facility] 62273727686 5000 UNIT Active 1 capsule Strength Orally Once a day Cyclobenzaprine ND 04538059384 10 MG Orally Sep 06Sep Active 1 tablet HCl once a day at 2018 11, as needed bedtime 2018 Ascorbic Acid [facility] 61500841579 500 MG Orally Active 1 tablet twice a day Lancets Super Thin NDC 0 n/s finger January Active one stick once 2018 Vitamin B12 [facility] 35872315021 1000 MCG Orally Active 1 tablet Once a day Albuterol Sulfate [facility] 42776473666 108 (90 Base) Aug 01, Active 2 puffs HFA MCG/ACT 2018 Inhalation every 6 hours prn sob Seroquel ND 90212239343 400 MG Orally Dec 14, Active 1 tablet Once a day at 2018 bedtime blood glucose test NDC 0 n/s SC once a January Active one strip day 2018 Diclofenac Sodium [facility] 55286654133 75 MG Orally Active 1 tablet Twice a day prn with food pain or milk Zetia [facility] 39414800172 10 MG Orally Active 1 tablet Once a day Vitamin B12 [facility] 34710048100 1000 MCG Orally Active 1 tablet Once a day Incruse Ellipta [facility] 99657161431 62.5 MCG/INH Aug 01April Active 1 puff Inhalation Once 2019 12, a day 2020 Results No Known Results Summary Purpose eClinicalWorks Submission
[2019-12-29 17:09] LABS: Absolute Lymphocytes (CBC) 1.5 K/uL (0.7-4.9); Basophils % 1.3 % (0-1.3); Hematocrit 40.1 % (39.6-49.0); Lymphocytes % 16.2 % (15.3-44.8)
[2019-12-29] MEDS ORDERED: MORPHINE 2 MG/ML SYR ONE (17:17)
[2019-12-29] MEDS ORDERED: CIPROFLOXACIN 400mg IV 400 MG/200 ML BAG IV ONE (17:17)
[2019-12-29] MEDS ORDERED: ONDANSETRON 4 MG/2 ML VIAL ONE (17:17)
[2019-12-29] MEDS ORDERED: CEFTRIAXONE/SWI 1gm 1 GM/10 ML SYR ONE (17:17)
[2019-12-29 17:28] LABS: ALT/SGPT 14 U/L (12-78); AST/SGOT 12 U/L (15-37); Albumin 3.3 g/dL (3.4-5.0); Alkaline Phosphatase 61 U/L (45-117); BUN Blood Urea Nitrogen 13 mg/dL (7-18); Bicarbonate 25 mmol/L (21-32); Bilirubin Direct < 0.1 mg/dL (0-0.2); Bilirubin Total 0.1 mg/dL (0.2-1.0); Glucose Level 136 mg/dL (74-106); Lipase 162 U/L (73-393); Potassium 3.7 mmol/L (3.5-5.1); Protein, Total 6.7 g/dL (6.4-8.2); Sodium Level 140 mmol/L (136-145)
[2019-12-29] MEDS ORDERED: METRONIDAZOLE 500mg IVPB 500 MG/100 ML BAG IV ONE (19:03)
[2019-12-29] MEDS ORDERED: NA CHLORIDE 0.9% 1,000 ML ONE (19:03)
--- NOTE | 2019-12-29 19:08 | RAD REPORT ---
EXAM DESCRIPTION: CT - Abdomen Pelvis W Contrast - 12/29/2019 6:48 pm CLINICAL HISTORY: ABD PAIN, history of hepatitis-C, diverticulitis COMPARISON: Abdomen Pelvis W Contrast dated 11/28/2019; Abdomen Pelvis W Contrast dated 10/30/2019 TECHNIQUE: Biphasic, helical CT imaging of the abdomen and pelvis was performed following 100 ml non -ionic IV contrast. Oral contrast was given. All CT scans are performed using dose optimization technique as appropriate and may include automated exposure control or mA/KV adjustment according to patient size. FINDINGS: No suspicious findings in the lung bases. The liver, spleen, and pancreas show no suspicious findings. Gallbladder and biliary tree are also wi thout suspicious finding. Symmetric renal function is seen with no hydronephrosis or suspicious renal mass. No pyelonephritis o r acute parenchymal process. Nonobstructing bladder calculi seen. A 3 centimeter cyst is present lowe r pole right kidney. Nonobstructing calculi are present in the kidneys. No adrenal abnormalities. Stomach is distended by oral contrast and fluid. No gastric wall thickening or mass. Contrast has robson ched the distal small bowel. Numerous phleboliths are seen along the pelvic floor. Moderately large s tool volume fills the colon. Appendicitis is not suspected. Sarab[place] of the proximal sigmoid colon are m ildly prominent. There is mild stranding in the adjacent fat. Patient has a history of a diverticular abscess in this region. No remnant fluid collection. Current stranding may be remnant from the prior process or new inflammatory stranding. No free air or pneumatosis. No other area of inflammatory stranding. No mass or bulky lymphadenopat hy. Fat filled right inguinal hernia is present. A very small umbilical fat only hernia present. No suspicious bony findings. IMPRESSION: Mild prominence of the proximal sigmoid colon sarabia with stranding in the adjacent fat. This is an location of recently treated diverticular abscess. No drainable fluid collection remains. Current findings may simply reflect remnant from that process. A mild acute component cannot be excluded. Moderately large stool volume throughout the colon. Remainder the exam without additional significant or acute component.
[2019-12-29 19:24] LABS: Urine Blood NEGATIVE (NEG); Urine Glucose NEGATIVE (NEG); Urine Protein NEGATIVE (NEG)
--- NOTE | 2019-12-29 19:30 | EDPHYS ---
Physician Documentation [facility] Name: Gregory Dumont Age: 59 yrs Sex: Male : 1960 Arrival Date: 12/29/2019 Time: 16:07 Bed 27 Private MD: TANIA Physician Bjorn Nuno HPI: 12/28 16:46 This 59 yrs old Male presents to ER via EMS with complaints of abdominal pain.foster 16:46 The patient presents with abdominal pain. Onset: The symptoms/episode began/occurred 3 foster day(s) ago. The symptoms do not radiate. Associated signs and symptoms: Pertinent positives: nausea. Modifying factors: The symptoms are alleviated by nothing, the symptoms are aggravated by movement, pressure. Severity of pain: At its worst the pain was mild in the emergency department the pain is unchanged. The patient has experienced similar episodes in the past, multiple times. Historical: - Allergies: 16:09 NKA; ll1 - PMHx: 16:09 Bipolar disorder; Diverticulitis; HEP C; HYPOGLYCEMIA; Irregular heart rate; CVA; ll1 ADD/ADHD; - PSHx: 16:09 Knee surgery; ll1 - Immunization history:: Adult Immunizations up to date. - Social history:: Smoking status: Patient/guardian denies using tobacco, the patient reports quitting approximately 10 years ago, Patient/guardian denies using alcohol, street drugs. - Family history:: not pertinent. ROS: 16:46 Constitutional: Negative for fever, chills, and weight loss, Eyes: Negative for injury, foster pain, redness, and discharge, ENT: Negative for injury, pain, and discharge, Neck: Negative for injury, pain, and swelling, Cardiovascular: Negative for chest pain, palpitations, and edema, Respiratory: Negative for shortness of breath, cough, wheezing, and pleuritic chest pain, Back: Negative for injury and pain, : Negative for injury, bleeding, discharge, and swelling, MS/Extremity: Negative for injury and deformity, Skin: Negative for injury, rash, and discoloration, Neuro: Negative for headache, weakness, numbness, tingling, and seizure, Psych: Negative for depression, anxiety, suicide ideation, homicidal ideation, and hallucinations, Allergy/Immunology: Negative for hives, rash, and allergies, Endocrine: Negative for neck swelling, polydipsia, polyuria, polyphagia, and marked weight changes, Hematologic/Lymphatic: Negative for swollen nodes, abnormal bleeding, and unusual bruising. 16:46 Abdomen/GI: Positive for abdominal pain, of the right upper quadrant, left upper quadrant, right lower quadrant and left lower quadrant. Exam: 16:46 Constitutional: This is a well developed, well nourished patient who is awake, alert, foster and in no acute distress. Head/Face: Normocephalic, atraumatic. Eyes: Pupils equal round and reactive to light, extra-ocular motions intact. Lids and lashes normal. Conjunctiva and sclera are non-icteric and not injected. Cornea within normal limits. Periorbital areas with no swelling, redness, or edema. ENT: Nares patent. No nasal discharge, no septal abnormalities noted. Tympanic membranes are normal and external auditory canals are clear. Oropharynx with no redness, swelling, or masses, exudates, or evidence of obstruction, uvula midline. Mucous membranes moist. Neck: Trachea midline, no thyromegaly or masses palpated, and no cervical lymphadenopathy. Supple, full range of motion without nuchal rigidity, or vertebral point tenderness. No Meningismus. Chest/axilla: Normal chest wall appearance and motion. Nontender with no deformity. No lesions are appreciated. Cardiovascular: Regular rate and rhythm with a normal S1 and S2. No gallops, murmurs, or rubs. Normal PMI, no JVD. No pulse deficits. Respiratory: Lungs have equal breath sounds bilaterally, clear to auscultation and percussion. No rales, rhonchi or wheezes noted. No increased work of breathing, no retractions or nasal flaring. Back: No spinal tenderness. No costovertebral tenderness. Full range of motion. Male : Normal genitalia with no discharge or lesions. Skin: Warm, dry with normal turgor. Normal color with no rashes, no lesions, and no evidence of cellulitis. MS/ Extremity: Pulses equal, no cyanosis. Neurovascular intact. Full, normal range of motion. Neuro: Awake and alert, GCS 15, oriented to person, place, time, and situation. Cranial nerves II-XII grossly intact. Motor strength 5/5 in all extremities. Sensory grossly intact. Cerebellar exam normal. Normal gait. Psych: Awake, alert, with orientation to person, place and time. Behavior, mood, and affect are within normal limits. 16:46 Abdomen/GI: Inspection: abdomen appears normal, Bowel sounds: normal, Palpation: moderate abdominal tenderness, in the right upper quadrant, left upper quadrant and left lower quadrant, Liver: no appreciated palpable abnormalities, Hernia: not appreciated. Vital Signs: 16:07 BP 134 / 92; Pulse 83; Resp 17; Temp 98.0; Pulse Ox 95% ; Pain 9/10; ll1 17:23 BP 143 / 103; Pulse 70; Resp 17; Pulse Ox 97% on R/A; ll1 MDM: 16:11 Patient medically screened. [facility] 16:46 Data reviewed: vital signs, nurses notes, lab test result(s), EKG, radiologic studies. [facility] 12/28 16:40 Order name: Basic Metabolic Panel; Complete Time: 17:[address] [facility] 12/28 16:40 Order name: CBC with Diff; Complete Time: 17:[address] [facility] 12/28 16:40 Order name: Creatinine for Radiology; Complete Time: 18:[address] [facility] 12/28 16:40 Order name: Hepatic Function; Complete Time: 17:[address] [facility] 12/28 16:40 Order name: Lipase; Complete Time: 17:[address] [facility] 12/28 16:40 Order name: Urine Culture [facility] 12/28 16:40 Order name: CT Abd/Pelvis - PO and IV Contrast; Complete Time: 19:[address] [facility] 12/28 19:13 Order name: Urine Dipstick--Ancillary (enter results); Complete Time: 19:28 [facility] 12/28 16:40 Order name: IV Saline Lock; Complete Time: 17:[address] [facility] 12/28 16:40 Order name: Labs collected and sent; Complete Time: 17:[address] [facility] 12/28 16:40 Order name: Urine Dipstick-Ancillary (obtain specimen); Complete Time: 18:[address] [facility] Administered Medications: 17:21 Drug: Rocephin - (cefTRIAXone) 1 grams Route: IVPB; Infused Over: 30 mins; Site: right ll1 antecubital; 17:22 Drug: morphine 2 mg {Note: RASS 0.} Route: IVP; Site: right antecubital; ll1 17:22 Drug: Zofran (Ondansetron) 4 mg Route: IVP; Site: right antecubital; ll1 17:22 Drug: Cipro 400 mg Volume: 200 ml; Route: IVPB; Infused Over: 60 mins; Site: right ll1 antecubital; 18:57 Drug: Flagyl 500 mg Volume: 100 ml; Route: IVPB; Rate: 200 ml/hr; Infused Over: 30 ls4 mins; Site: right antecubital; 18:57 Drug: NS 0.9% 1000 ml Route: IV; Rate: 1 bolus; Site: right antecubital; ls4 Disposition: 12/29/19 19:29 Discharged to Home. Impression: Abdominal tenderness, Bipolar disorder, Diverticular disease of intestine, Diverticulitis of large intestine without perforation or abscess without bleeding - sigmoid. - Condition is Stable. - Discharge Instructions: Abdominal Pain, Adult, Diverticulosis, Abdominal Pain, Adult, [id number]. - Prescriptions for Bentyl 20 mg Oral Tablet - take 1 tablet by ORAL route every 6 hours As needed; 20 tablet. Flagyl 500 mg Oral Tablet - take 1 tablet by ORAL route every 6 hours for 7 days; 30 tablet. Zofran 4 mg Oral Tablet - take 1 tablet by ORAL route every 12 hours As needed; 20 tablet. Cipro 500 mg Oral Tablet - take 1 tablet by ORAL route every 12 hours for 7 days; 14 tablet. Pepcid 20 mg Oral Tablet - take 1 tablet by ORAL route every 12 hours for 10 days; 20 tablet. - Medication Reconciliation Form, Thank You Letter, Antibiotic Education, Prescription Opioid Use form. - Follow up: Private Physician; When: 2 - 3 days; Reason: Recheck today's complaints, Continuance of care, Re-evaluation by your physician. Follow up: Tyron Grimm; When: 2 - 3 days; Reason: Recheck today's complaints, Re-evaluation by your physician. - Problem is new. - Symptoms have improved. Signatures: Dispatcher [employer] EDBjorn Mix MD MD cha Stewart, Lisa RN RN ls4 Christine Forrester RN RN ll1 Corrections: (The following items were deleted from the chart) 19:30 19:29 12/29/2019 19:29 Discharged to Home. Impression: Abdominal tenderness; Bipolar foster disorder; Diverticular disease of intestine. Condition is Stable. Discharge Instructions: Abdominal Pain, Adult, Diverticulosis, Abdominal Pain, Adult, [id number]. Prescriptions for Bentyl 20 mg Oral Tablet - take 1 tablet by ORAL route every 6 hours As needed; 20 tablet, Flagyl 500 mg Oral Tablet - take 1 tablet by ORAL route every 6 hours for 7 days; 30 tablet, Zofran 4 mg Oral Tablet - take 1 tablet by ORAL route every 12 hours As needed; 20 tablet, Cipro 500 mg Oral Tablet - take 1 tablet by ORAL route every 12 hours for 7 days; 14 tablet, Pepcid 20 mg Oral Tablet - take 1 tablet by ORAL route every 12 hours for 10 days; 20 tablet. and Forms are Medication Reconciliation Form, Thank You Letter, Antibiotic Education, Prescription Opioid Use. Follow up: Private Physician; When: 2 - 3 days; Reason: Recheck today's complaints, Continuance of care, Re-evaluation by your physician. Follow up: Tyron Grimm; When: 2 - 3 days; Reason: Recheck today's complaints, Re-evaluation by your physician. Problem is new. Symptoms have improved. [facility] 20:13 19:30 12/29/2019 19:29 Discharged to Home. Impression: Abdominal tenderness; Bipolar ls4 disorder; Diverticular disease of intestine; Diverticulitis of large intestine without perforation or abscess without bleeding - sigmoid. Condition is Stable. Discharge Instructions: Abdominal Pain, Adult, Diverticulosis, Abdominal Pain, Adult, [id number]. Prescriptions for Bentyl 20 mg Oral Tablet - take 1 tablet by ORAL route every 6 hours As needed; 20 tablet, Flagyl 500 mg Oral Tablet - take 1 tablet by ORAL route every 6 hours for 7 days; 30 tablet, Zofran 4 mg Oral Tablet - take 1 tablet by ORAL route every 12 hours As needed; 20 tablet, Cipro 500 mg Oral Tablet - take 1 tablet by ORAL route every 12 hours for 7 days; 14 tablet, Pepcid 20 mg Oral Tablet - take 1 tablet by ORAL route every 12 hours for 10 days; 20 tablet. and Forms are Medication Reconciliation Form, Thank You Letter, Antibiotic Education, Prescription Opioid Use. Follow up: Private Physician; When: 2 - 3 days; Reason: Recheck today's complaints, Continuance of care, Re-evaluation by your physician. Follow up: Tyron Grimm; When: 2 - 3 days; Reason: Recheck today's complaints, Re-evaluation by your physician. Problem is new. Symptoms have improved. foster
--- NOTE | 2019-12-29 19:30 | ER ---
Nurse's Notes [facility] Name: Gregory Dumont Age: 59 yrs Sex: Male : 1960 Arrival Date: 12/29/2019 Time: 16:07 Bed 27 Private MD: Diagnosis: Abdominal tenderness;Bipolar disorder;Diverticular disease of intestine;Diverticulitis of large intestine without perforation or abscess without bleeding-sigmoid Presentation: 12/28 16:07 Chief complaint: Patient states: Abd pain for 2 days. + N/V after eating fried shrimp ll1 and fish. RUQ pain now. Coronavirus screen: The patient has NOT traveled to a country currently being monitored by the CDC within the last 14 days. Ebola Screen: Patient denies travel to an Ebola-affected area in the 21 days before illness onset. Initial Sepsis Screen: Does the patient meet any 2 criteria? No. Patient's initial sepsis screen is negative. Does the patient have a suspected source of infection? No. Patient's initial sepsis screen is negative. Risk Assessment: Do you want to hurt yourself or someone else? Patient reports no desire to harm self or others. 16:07 Method Of Arrival: EMS [facility] 16:07 Acuity: MARION 3 [facility] 16:12 Onset of symptoms was December 28, 2019. [facility] Triage Assessment: 16:10 General: Appears in no apparent distress. Behavior is calm, cooperative. Pain: 1 Complains of pain in RUQ Pain currently is 9 out of 10 on a pain scale. Quality of pain is described as aching, Pain began 1 day ago. Is continuous. Neuro: No deficits noted. Cardiovascular: No deficits noted. Respiratory: No deficits noted. GI: Abdomen is round distended, Bowel sounds present X 4 quads. Abd is soft X 4 quads Abdomen is tender to palpation in right upper quadrant Reports upper abdominal pain, nausea, vomiting. Historical: - Allergies: 16:09 NKA; ll1 - PMHx: 16:09 Bipolar disorder; Diverticulitis; HEP C; HYPOGLYCEMIA; Irregular heart rate; CVA; ll1 ADD/ADHD; - PSHx: 16:09 Knee surgery; ll1 - Immunization history:: Adult Immunizations up to date. - Social history:: Smoking status: Patient/guardian denies using tobacco, the patient reports quitting approximately 10 years ago, Patient/guardian denies using alcohol, street drugs. - Family history:: not pertinent. Screenin:11 Abuse screen: Denies threats or abuse. Nutritional screening: No deficits noted. ll1 Tuberculosis screening: No symptoms or risk factors identified. Fall Risk None identified. IV access (20 points). Ambulatory Aid- None/Bed Rest/Nurse Assist (0 pts). Total Mcdaniel Fall Scale indicates No Risk (0-24 pts). Assessment: 16:27 General: see triage assessment for further details.. ll1 17:30 Reassessment: No changes from previously documented assessment. Patient and/or family ll1 updated on plan of care and expected duration. Pain level reassessed. Patient is alert, oriented x 3, equal unlabored respirations, skin warm/dry/pink. Vital Signs: 16:07 BP 134 / 92; Pulse 83; Resp 17; Temp 98.0; Pulse Ox 95% ; Pain 9/10; ll1 17:23 BP 143 / 103; Pulse 70; Resp 17; Pulse Ox 97% on R/A; ll1 ED Course: 16:00 Arm band placed on Patient placed in an exam room. ll1 16:07 Patient arrived in ED. la1 16:07 Christine Forrester, NIKI is Primary Nurse. ll1 16:09 Triage completed. ll1 16:11 Bjorn Nuno MD is Attending Physician. [facility] 16:12 Patient has correct armband on for positive identification. Bed in low position. Call ll1 light in reach. 18:45 CT completed. Patient tolerated procedure well. Patient moved back from CT. bq 18:49 CT Abd/Pelvis - PO and IV Contrast In Process Unspecified. EDMS 19:29 Tyron Grimm MD is Referral Physician. foster Administered Medications: 17:21 Drug: Rocephin - (cefTRIAXone) 1 grams Route: IVPB; Infused Over: 30 mins; Site: right ll1 antecubital; 17:22 Drug: morphine 2 mg {Note: RASS 0.} Route: IVP; Site: right antecubital; ll1 17:22 Drug: Zofran (Ondansetron) 4 mg Route: IVP; Site: right antecubital; ll1 17:22 Drug: Cipro 400 mg Volume: 200 ml; Route: IVPB; Infused Over: 60 mins; Site: right ll1 antecubital; 18:57 Drug: Flagyl 500 mg Volume: 100 ml; Route: IVPB; Rate: 200 ml/hr; Infused Over: 30 ls4 mins; Site: right antecubital; 18:57 Drug: NS 0.9% 1000 ml Route: IV; Rate: 1 bolus; Site: right antecubital; ls4 Outcome: 19:29 Discharge ordered by MD. hutchison 20:13 Patient left the ED. ls4 Signatures: Dispatcher [employer] EDBjorn Mix MD MD cha Quilty, Betty bq Attema, Lee, WELT BUTTER HAND-C WELT BUTTER HAND-Cla1 Page Cobb, RN RN ls4 Christine Forrester RN RN ll1
[2019-12-29 20:25] VITALS: TEMP 98
[2019-12-29 20:27] VITALS: BP 143/103; O2SAT 97
== END 2019-12-29 20:13 | disposition home or self-care (01) ==
LOC: ER 16:00
DX: K57.30 Diverticulosis of large intestine without perforation or abscess without bleeding (principal); K57.32 Diverticulitis of large intestine without perforation or abscess without bleeding
CPT/HCPCS: 87088; 85025; 87086; 80048; 36415; 80076; 81003; 83690; 74177; 96375; 96374; 99284; Q9967; J2270; J0696; J7030; J2405; J0744

== ENCOUNTER 2020-01-03 17:52 | Emergency (ER) | payer OTHER ==
--- OUTSIDE RECORDS SUMMARY | 2020-01-03 17:54 | XMS REPORT ---
[...] Status Dosage System Date Date Albuterol Sulfate [facility] 01340085869 108 (90 Base) Aug 01, 2 puffs HFA MCG/ACT 2018 Inhalation every 6 hours prn sob Incruse Ellipta [facility] 98000096858 62.5 MCG/INH Aug 01April Active 1 puff Inhalation Once 2018 12, a day 2019 blood glucose ND 0 n/s SC once a January Active one test strip 2018 Alcohol Prep Pads ND 0 topical once a January Active as day , directed 2018 2018 Lithobid [facility] 45090723516 300 MG Orally Active 1 tablet twice a day Seroquel ND 94034051407 400 MG Orally Dec 14, Active 1 tablet Once a day at 2017 bedtime Sildenafil ND 23551452055 100 MG Orally Oct Inactive 1 tablet Citrate Once a day 2018 Atorvastatin [facility] 29123906886 20 MG Orally Active 1 tablet Calcium Once a day Fish Oil [facility] 88051322869 1000 MG Orally Active 1 capsule Once a day Super B-Complex [facility] 63555692423 - Orally once a Active as day directed D3 Maximum [facility] 10246301504 5000 UNIT Active 1 capsule Strength Orally Once a day Memantine HCl [facility] 02306645147 10 MG Orally Active 1 tablet Twice a day Atorvastatin [facility] 54079879279 40 MG Orally Active 1 tablet Calcium Once a day Vitamin B12 [facility] 44294915465 1000 MCG Orally Active 1 tablet Once a day Cyanocobalamin [facility] 56264411518 2500 MCG Active as Sublingual once directed a day Co-Enzyme Q-10 [facility] 97310226379 100 MG Orally Active 2 capsule Once a day with a meal Zetia [facility] 07182994878 10 MG Orally Active 1 tablet Once a day Lancets Super NDC 0 n/s finger January Active one Thin stick once 2018 Diclofenac Sodium [facility] 15422722008 75 MG Orally Active 1 tablet Twice a day prn with food pain or milk Trazodone HCl [facility] 06520923853 100 MG Orally Active 1 tablet Once a day at bedtime Ascorbic Acid [facility] 58631008356 500 MG Orally Active 1 tablet twice a day Cialis [facility] 37011275617 20 MG Orally Aug 01Aug Active 1 tablet 2018 Thiamine [facility] 53061523217 50 MG Orally Active 2 capsules Once a day Vitamin B12 [facility] 21175485838 1000 MCG Orally Active 1 tablet Once a day Melatonin [facility] 65722795638 3 MG Orally Active 1 tablet Once a day at bedtime as needed with food Ezetimibe [facility] 49871356821 10 MG Orally Nov 15, Active 1 tablet Once a day 2018 Results Name Result Date Reference Range Unit Abnormality Flag Ct Low Dose Chest Screening Summary Purpose eClinicalWorks Submission
--- OUTSIDE RECORDS SUMMARY | 2020-01-03 17:54 | XMS REPORT ---
:1960 Author Organization [facility] Address [address] Nicole [address] [place] [id number] Care Team Providers Name Role Phone Unavailable Unavailable Unavailable Problems This patient has no known problems. Allergies, Adverse Reactions, Alerts This patient has no known allergies or adverse reactions. Medications This patient has no known medications.
--- OUTSIDE RECORDS SUMMARY | 2020-01-03 17:55 | XMS REPORT ---
[...] End Status Dosage System Date Date Cipro [facility] 56925580720 500 MG Orally Nov Active 1 tablet every 12 hrs 2018 Metronidazole ND 97433755203 500 MG Orally Nov Active 1 tablet every 6 hours 2018 Lithobid [facility] 83080885733 300 MG Orally Active 1 tablet twice a day Atorvastatin ND 00036600082 20 MG Orally Active 1 tablet Calcium Once a day Co-Enzyme Q-10 ND 42874368822 100 MG Orally Active 2 capsule Once a day with a meal Melatonin [facility] 22782897618 3 MG Orally Active 1 tablet Once a day at bedtime as needed with food Cyanocobalamin [facility] 59925866695 2500 MCG Active as Sublingual once directed a day Memantine HCl ND 13289393789 10 MG Orally Active 1 tablet Twice a day Trazodone HCl [facility] 84446885837 100 MG Orally Active 1 tablet Once a day at bedtime Atorvastatin [facility] 07592976056 40 MG Orally Active 1 tablet Calcium Once a day Fish Oil ND 12579812329 1000 MG Orally Active 1 capsule Once a day Ranitidine HCl [facility] 03733802920 150 MG Active TAKE 1 TABLET BY MOUTH TWICE A DAY Thiamine [facility] 14697928524 50 MG Orally Active 2 capsules Once a day Super B-Complex [facility] 85056515696 - Orally once a Active as day directed Ezetimibe ND 24225070487 10 MG Orally Nov 15, Active 1 tablet Once a day 2018 D3 Maximum [facility] 55423002006 5000 UNIT Active 1 capsule Strength Orally Once a day Cyclobenzaprine ND 58381864296 10 MG Orally Sep 06Sep Active 1 tablet HCl once a day at 2018 11, as needed bedtime 2018 Ascorbic Acid [facility] 37938852285 500 MG Orally Active 1 tablet twice a day Lancets Super Thin NDC 0 n/s finger January Active one stick once 2018 Vitamin B12 [facility] 70650669423 1000 MCG Orally Active 1 tablet Once a day Albuterol Sulfate [facility] 58875464548 108 (90 Base) Aug 01, Active 2 puffs HFA MCG/ACT 2018 Inhalation every 6 hours prn sob Seroquel ND 84278478321 400 MG Orally Dec 14, Active 1 tablet Once a day at 2018 bedtime blood glucose test NDC 0 n/s SC once a January Active one strip day 2018 Diclofenac Sodium [facility] 51091272662 75 MG Orally Active 1 tablet Twice a day prn with food pain or milk Zetia [facility] 03582035003 10 MG Orally Active 1 tablet Once a day Vitamin B12 [facility] 14204013622 1000 MCG Orally Active 1 tablet Once a day Incruse Ellipta [facility] 34690825316 62.5 MCG/INH Aug 01April Active 1 puff Inhalation Once 2019 12, a day 2020 Results No Known Results Summary Purpose eClinicalWorks Submission
[2020-01-03] MEDS ORDERED: DICYCLOMINE HCL 10 MG CAP ONE (18:32)
[2020-01-03 18:33] LABS: Absolute Lymphocytes (CBC) 1.2 K/uL (0.7-4.9); Basophils % 1.3 % (0-1.3); Hematocrit 41.7 % (39.6-49.0); Lymphocytes % 9.7 % (15.3-44.8); MPV 9.6 fL (7.6-11.3); RBC Red Blood Cell Count 4.65 M/uL (4.33-5.43)
--- NOTE | 2020-01-03 19:20 | RAD REPORT ---
EXAM DESCRIPTION: CTAbdomen Pelvis W Contrast - 01/03/2020 7:08 pm CLINICAL HISTORY: Abdominal pain. diverticulitis, increased pain and WBC COMPARISON: Abdomen Pelvis W Contrast dated 12/29/2019; Abdomen Pelvis W Contrast dated 11/28/2019 ; Abdomen Pelvis W Contrast dated 10/30/2019; Abdomen Pelvis W Contrast dated 10/24/2019 TECHNIQUE: Biphasic CT imaging of the abdomen and pelvis was performed with 100 ml non-ionic IV cont rast. All CT scans are performed using dose optimization technique as appropriate and may include automated exposure control or mA/KV adjustment according to patient size. FINDINGS: The lung bases are clear. The liver, spleen, pancreas, adrenal glands are within normal limits. Bilateral caliceal renal stones are present without hydronephrosis. 3 cm cyst is seen inferior right kidney with small thin septatio n. No bowel obstruction, free air, free fluid or abscess. Moderate left lower quadrant sigmoid cued dive rticulitis is again seen. This appears mildly progressive in severity since the comparative study. No evidence of a peridiverticular abscess. Punctate foci of extraluminal air noted. The appendix is nor mal. No evidence of significant lymphadenopathy. No suspicious bony findings. IMPRESSION: Acute sigmoid diverticulitis is again seen, mildly progressive since comparative study. No peridiverticular abscess. After appropriate treatment, followup colonoscopy may be of value. Bilateral nephrolithiasis without hydronephrosis.
[2020-01-03] MEDS ORDERED: HYDROCODONE/APAP 7.5/325 MG TAB ONE (19:28)
[2020-01-03] MEDS ORDERED: ONDANSETRON 4 MG/2 ML VIAL ONE (19:28)
--- NOTE | 2020-01-03 20:31 | EDPHYS ---
Physician Documentation [facility] Name: Gregory Dumont Age: 59 yrs Sex: Male : 1960 Arrival Date: 01/03/2020 Time: 17:54 Bed 14 Private MD: ED Physician Rafa Sequeira HPI: 01/02 18:08 This 59 yrs old Male presents to ER via EMS with complaints of Abdominal Pain.ps1 18:08 Pain localized to LLQ. Non-radiating. Rated as moderate and intermittent. Patient seen ps1 and evaluated for LLQ abdominal pain with known diagnosis of resolving diverticulitis with filled prescriptions of Cipro and Flagyl seen 3 days prior. Patient is at the [facility] and did not want to wait until he could get to his medications to take them. Patient presented afebrile in NAD asking for pain medications, states it is worsening without his medications. Presented at 1730. Did not want to wait. . Historical: - Allergies: 17:59 NKA; em - Home Meds: 17:59 [place] Carbonate Oral [Active]; venlafaxine Oral [Active]; em - PMHx: 17:59 ADD/ADHD; Bipolar disorder; CVA; Diverticulitis; HEP C; HYPOGLYCEMIA; Irregular heart em rate; - PSHx: 17:59 Knee surgery; em - Immunization history:: Adult Immunizations up to date. - Social history:: Smoking status: Patient reports the use of cigarette tobacco products, denies chronic smoking, but will smoke occasionally. ROS: 18:08 Constitutional: Negative for fever, chills, and weight loss, Eyes: Negative for injury, ps1 pain, redness, and discharge, Cardiovascular: Negative for chest pain, palpitations, and edema, Respiratory: Negative for shortness of breath, cough, wheezing, and pleuritic chest pain, MS/Extremity: Negative for injury and deformity, Skin: Negative for injury, rash, and discoloration, Neuro: Negative for headache, weakness, numbness, tingling, and seizure. 18:08 Abdomen/GI: Positive for abdominal pain, Negative for constipation. Exam: 18:08 Constitutional: This is a well developed, well nourished patient who is awake, alert, ps1 and in no acute distress. Head/Face: Normocephalic, atraumatic. Eyes: Pupils equal round and reactive to light, extra-ocular motions intact. Lids and lashes normal. Conjunctiva and sclera are non-icteric and not injected. Chest/axilla: Normal chest wall appearance and motion. Nontender with no deformity. No lesions are appreciated. Cardiovascular: Regular rate and rhythm. No gallops, murmurs, or rubs. Normal PMI, no JVD. No pulse deficits. Respiratory: Lungs have equal breath sounds bilaterally, clear to auscultation and percussion. No rales, rhonchi or wheezes noted. No increased work of breathing, no retractions or nasal flaring. Abdomen/GI: Soft, non-tender, with normal bowel sounds. No distension or tympany. No guarding or rebound. No evidence of tenderness throughout. MS/ Extremity: Pulses equal, no cyanosis. Neurovascular intact. Full, normal range of motion. Vital Signs: 17:56 BP 141 / 95; Pulse 90; Resp 18; Temp 98.0(O); Pulse Ox 100% on R/A; Weight 61.23 kg; em Height 5 ft. 11 in. (180.34 cm); Pain 7/10; 20:43 BP 135 / 78; Pulse 89; Resp 18; Temp 98; Pulse Ox 100% on R/A; mg2 17:56 Body Mass Index 18.83 (61.23 kg, 180.34 cm) em MDM: 18:14 Patient medically screened. ps1 20:13 Data reviewed: vital signs, nurses notes, lab test result(s), radiologic studies, CT jr8 scan. Data interpreted: Pulse oximetry: on room air is 100 %. Interpretation: normal. Counseling: I had a detailed discussion with the patient and/or guardian regarding: the historical points, exam findings, and any diagnostic results supporting the discharge/admit diagnosis, lab results, radiology results, the need for outpatient follow up, a family practitioner, a fountain clerk, to return to the emergency department if symptoms worsen or persist or if there are any questions or concerns that arise at home. ED course: Patient doing better. Wants to go home. Will come back if worse. Will d/c patient back to where he is staying . 01/02 18:07 Order name: CBC with Diff; Complete Time: 18:52 ps1 01/02 18:52 Order name: CT Abd/Pelvis - IV Contrast Only; Complete Time: 19:43 ps1 Administered Medications: 18:34 Drug: Bentyl 10 mg Route: PO; em 19:22 Follow up: Response: No adverse reaction mg2 19:30 Drug: Zofran (Ondansetron) 4 mg Route: PO; mg2 20:42 Follow up: Response: No adverse reaction mg2 19:31 Drug: [place] (7.5 mg-325 mg) 1 tabs Route: PO; mg2 20:42 Follow up: Response: No adverse reaction mg2 Disposition: 01/03 17:11 Co-signature as Attending Physician, Rafa Sequeira MD Did not see or evaluate patient. ps1 Signature for administrative purposes. . Disposition: 01/03/20 20:30 Discharged to Home. Impression: Diverticulitis of large intestine without perforation or abscess without bleeding. - Condition is Stable. - Discharge Instructions: Diverticulitis. - Medication Reconciliation Form, Thank You Letter, Antibiotic Education, Prescription Opioid Use form. - Follow up: Angel Tate MD; When: 7 - 10 days; Reason: Recheck today's complaints, Continuance of care, Re-evaluation by your physician. - Problem is new. - Symptoms have improved. Signatures: Dispatcher [employer] Spenser Ramos RN RN sg Fredy Vasquez RN RN em Zane Gonzalez PA PA jr8 Rafa Sequeira MD MD ps1 Delroy Hernandez RN RN mg2 Corrections: (The following items were deleted from the chart) 01/02 20:43 20:30 01/03/2020 20:30 Discharged to Home. Impression: Diverticulitis of large sg intestine without perforation or abscess without bleeding. Condition is Stable. Forms are Medication Reconciliation Form, Thank You Letter, Antibiotic Education, Prescription Opioid Use. Follow up: Angel Tate; When: 7 - 10 days; Reason: Recheck today's complaints, Continuance of care, Re-evaluation by your physician. Problem is new. Symptoms have improved. jr8
--- NOTE | 2020-01-03 20:31 | ER ---
Nurse's Notes [facility] Name: Gregory Dumont Age: 59 yrs Sex: Male : 1960 Arrival Date: 01/03/2020 Time: 17:54 Bed 14 Private MD: Diagnosis: Diverticulitis of large intestine without perforation or abscess without bleeding Presentation: 01/02 17:56 Chief complaint: EMS states: lower left quad. pain that started today, hx of em diverticulitis, denies n/v/d or fever. Coronavirus screen: The patient has NOT traveled to a country currently being monitored by the [facility] within the last 14 days. The patient has NOT had contact with any known and/or suspected case of coronavirus. Ebola Screen: Patient negative for fever greater than or equal to 101.5 degrees Fahrenheit, and additional compatible Ebola Virus Disease symptoms Patient denies exposure to infectious person. Patient denies travel to an Ebola-affected area in the 21 days before illness onset. No symptoms or risks identified at this time. Initial Sepsis Screen: Does the patient meet any 2 criteria? No. Patient's initial sepsis screen is negative. Does the patient have a suspected source of infection? No. Patient's initial sepsis screen is negative. Risk Assessment: Do you want to hurt yourself or someone else? Patient reports no desire to harm self or others. 17:56 Method Of Arrival: EMS: [facility] em 17:56 Acuity: [place] 3 em 19:35 Onset of symptoms was December 2019. mg2 Historical: - Allergies: 17:59 NKA; em - Home Meds: 17:59 [place] Carbonate Oral [Active]; venlafaxine Oral [Active]; em - PMHx: 17:59 ADD/ADHD; Bipolar disorder; CVA; Diverticulitis; HEP C; HYPOGLYCEMIA; Irregular heart em rate; - PSHx: 17:59 Knee surgery; em - Immunization history:: Adult Immunizations up to date. - Social history:: Smoking status: Patient reports the use of cigarette tobacco products, denies chronic smoking, but will smoke occasionally. Screenin:00 Abuse screen: Denies threats or abuse. Nutritional screening: No deficits noted. em Tuberculosis screening: No symptoms or risk factors identified. Fall Risk None identified. Assessment: 17:56 General: Appears in no apparent distress. comfortable, Behavior is calm, cooperative, em Denies fever. Pain: Complains of pain in left lower quadrant Pain currently is 7 out of 10 on a pain scale. Pain began 3 hours ago. Neuro: Level of Consciousness is awake, alert, obeys commands, Oriented to person, place, time, situation, Appropriate for age. Cardiovascular: Capillary refill < 3 seconds Patient's skin is warm and dry. Respiratory: Airway is patent Respiratory effort is even, unlabored, Respiratory pattern is regular, symmetrical. GI: Abdomen is flat, Bowel sounds present X 4 quads. Abd is soft X 4 quads Abdomen is tender to palpation in left lower quadrant Patient currently denies diarrhea, nausea, vomiting. Derm: Skin is intact, is healthy with good turgor, Skin is pink, warm \T\ dry. Musculoskeletal: Capillary refill < 3 seconds, Range of motion: intact in all extremities. Vital Signs: 17:56 BP 141 / 95; Pulse 90; Resp 18; Temp 98.0(O); Pulse Ox 100% on R/A; Weight 61.23 kg; em Height 5 ft. 11 in. (180.34 cm); Pain 7/10; 20:43 BP 135 / 78; Pulse 89; Resp 18; Temp 98; Pulse Ox 100% on R/A; mg2 17:56 Body Mass Index 18.83 (61.23 kg, 180.34 cm) em ED Course: 17:54 Patient arrived in ED. em 17:55 Fredy Vasquez, RN is Primary Nurse. em 17:57 Triage completed. em 17:58 Rafa Sequeira MD is Attending Physician. ps1 17:59 Arm band placed on. em 18:00 Patient has correct armband on for positive identification. Bed in low position. Call em light in reach. Side rails up X2. Adult w/ patient. Pulse ox on. NIBP on. 18:15 Initial lab(s) drawn, by me, sent to lab. Inserted saline lock: 20 gauge in left em antecubital area, using aseptic technique. Blood collected. 18:54 Zane Gonzalez PA is PHCP. jr8 19:08 CT Abd/Pelvis - IV Contrast Only In Process Unspecified. EDMS 19:35 No provider procedures requiring assistance completed. mg2 20:30 Angel Tate MD is Referral Physician. jr8 20:43 IV discontinued, intact. mg2 Administered Medications: 18:34 Drug: Bentyl 10 mg Route: PO; em 19:22 Follow up: Response: No adverse reaction mg2 19:30 Drug: Zofran (Ondansetron) 4 mg Route: PO; mg2 20:42 Follow up: Response: No adverse reaction mg2 19:31 Drug: [place] (7.5 mg-325 mg) 1 tabs Route: PO; mg2 20:42 Follow up: Response: No adverse reaction mg2 Outcome: 20:30 Discharge ordered by . mihaela 20:42 Discharged to home ambulatory. mg2 20:42 Condition: stable 20:42 Discharge instructions given to patient, Instructed on discharge instructions, follow mg2 up and referral plans. Demonstrated understanding of instructions, follow-up care. 20:43 Patient left the ED. sg Signatures: Dispatcher [employer] Spenser Ramos RN RN sg Fredy Vasquez RN RN em Zane Gonzalez PA PA jr8 Rafa Sequeira MD MD ps1 [place]ose, Michele, RN RN mg2
[2020-01-03 20:52] VITALS: O2SAT 100
[2020-01-03 20:57] VITALS: BP 135/78; TEMP 98
== END 2020-01-03 20:43 | disposition home or self-care (01) ==
LOC: ER 17:52
DX: K57.32 Diverticulitis of large intestine without perforation or abscess without bleeding (principal); F31.9 Bipolar disorder, unspecified; Z72.0 Tobacco use
CPT/HCPCS: 85025; 36415; 74177; 99284; Q9967; J2405

== ENCOUNTER 2020-01-08 18:21 | Emergency (ER) | payer OTHER ==
--- OUTSIDE RECORDS SUMMARY | 2020-01-08 18:24 | XMS REPORT ---
:1960 [facility] Address [address] Nicole [address] [place] [address] Care Team Providers Name Role Phone Unavailable Unavailable Unavailable Problems This patient has no known problems. Allergies, Adverse Reactions, Alerts This patient has no known allergies or adverse reactions. Medications This patient has no known medications.
--- OUTSIDE RECORDS SUMMARY | 2020-01-08 18:25 | XMS REPORT ---
[...] End Status Dosage System Date Date Cipro [facility] 91559273532 500 MG Orally Nov Active 1 tablet every 12 hrs 2018 Metronidazole ND 40995331514 500 MG Orally Nov Active 1 tablet every 6 hours 2018 Lithobid [facility] 67599598656 300 MG Orally Active 1 tablet twice a day Atorvastatin ND 12235710302 20 MG Orally Active 1 tablet Calcium Once a day Co-Enzyme Q-10 ND 90687862377 100 MG Orally Active 2 capsule Once a day with a meal Melatonin [facility] 86696804914 3 MG Orally Active 1 tablet Once a day at bedtime as needed with food Cyanocobalamin [facility] 41803826500 2500 MCG Active as Sublingual once directed a day Memantine HCl ND 31920756321 10 MG Orally Active 1 tablet Twice a day Trazodone HCl [facility] 99145975373 100 MG Orally Active 1 tablet Once a day at bedtime Atorvastatin [facility] 32115644237 40 MG Orally Active 1 tablet Calcium Once a day Fish Oil ND 70630023258 1000 MG Orally Active 1 capsule Once a day Ranitidine HCl [facility] 04751603627 150 MG Active TAKE 1 TABLET BY MOUTH TWICE A DAY Thiamine [facility] 18966516225 50 MG Orally Active 2 capsules Once a day Super B-Complex [facility] 32755375433 - Orally once a Active as day directed Ezetimibe ND 01417737854 10 MG Orally Nov 15, Active 1 tablet Once a day 2018 D3 Maximum [facility] 41438218613 5000 UNIT Active 1 capsule Strength Orally Once a day Cyclobenzaprine ND 43731130836 10 MG Orally Sep 06Sep Active 1 tablet HCl once a day at 2018 11, as needed bedtime 2018 Ascorbic Acid [facility] 58981927982 500 MG Orally Active 1 tablet twice a day Lancets Super Thin NDC 0 n/s finger January Active one stick once 2018 Vitamin B12 [facility] 01235693496 1000 MCG Orally Active 1 tablet Once a day Albuterol Sulfate [facility] 50106982312 108 (90 Base) Aug 01, Active 2 puffs HFA MCG/ACT 2018 Inhalation every 6 hours prn sob Seroquel ND 87658935721 400 MG Orally Dec 14, Active 1 tablet Once a day at 2018 bedtime blood glucose test NDC 0 n/s SC once a January Active one strip day 2018 Diclofenac Sodium [facility] 62090043834 75 MG Orally Active 1 tablet Twice a day prn with food pain or milk Zetia [facility] 51591162672 10 MG Orally Active 1 tablet Once a day Vitamin B12 [facility] 30777960617 1000 MCG Orally Active 1 tablet Once a day Incruse Ellipta [facility] 60128730057 62.5 MCG/INH Aug 01April Active 1 puff Inhalation Once 2019 12, a day 2020 Results No Known Results Summary Purpose eClinicalWorks Submission
--- OUTSIDE RECORDS SUMMARY | 2020-01-08 18:25 | XMS REPORT ---
[...] Status Dosage System Date Date Albuterol Sulfate [facility] 37172135519 108 (90 Base) Aug 01, 2 puffs HFA MCG/ACT 2018 Inhalation every 6 hours prn sob Incruse Ellipta [facility] 21144567707 62.5 MCG/INH Aug 01April Active 1 puff Inhalation Once 2018 12, a day 2019 blood glucose ND 0 n/s SC once a January Active one test strip 2018 Alcohol Prep Pads ND 0 topical once a January Active as day , directed 2018 2018 Lithobid [facility] 09984779720 300 MG Orally Active 1 tablet twice a day Seroquel ND 09276598819 400 MG Orally Dec 14, Active 1 tablet Once a day at 2017 bedtime Sildenafil ND 06038462156 100 MG Orally Oct Inactive 1 tablet Citrate Once a day 2018 Atorvastatin [facility] 79103027204 20 MG Orally Active 1 tablet Calcium Once a day Fish Oil [facility] 13947511318 1000 MG Orally Active 1 capsule Once a day Super B-Complex [facility] 07516973129 - Orally once a Active as day directed D3 Maximum [facility] 22931594325 5000 UNIT Active 1 capsule Strength Orally Once a day Memantine HCl [facility] 82918833212 10 MG Orally Active 1 tablet Twice a day Atorvastatin [facility] 05045218242 40 MG Orally Active 1 tablet Calcium Once a day Vitamin B12 [facility] 18225740122 1000 MCG Orally Active 1 tablet Once a day Cyanocobalamin [facility] 13257338554 2500 MCG Active as Sublingual once directed a day Co-Enzyme Q-10 [facility] 63945782488 100 MG Orally Active 2 capsule Once a day with a meal Zetia [facility] 97515226017 10 MG Orally Active 1 tablet Once a day Lancets Super NDC 0 n/s finger January Active one Thin stick once 2018 Diclofenac Sodium [facility] 30465577026 75 MG Orally Active 1 tablet Twice a day prn with food pain or milk Trazodone HCl [facility] 73265284935 100 MG Orally Active 1 tablet Once a day at bedtime Ascorbic Acid [facility] 59293584897 500 MG Orally Active 1 tablet twice a day Cialis [facility] 06429220254 20 MG Orally Aug 01Aug Active 1 tablet 2018 Thiamine [facility] 01373568855 50 MG Orally Active 2 capsules Once a day Vitamin B12 [facility] 79736112719 1000 MCG Orally Active 1 tablet Once a day Melatonin [facility] 53420136689 3 MG Orally Active 1 tablet Once a day at bedtime as needed with food Ezetimibe [facility] 48064166153 10 MG Orally Nov 15, Active 1 tablet Once a day 2018 Results Name Result Date Reference Range Unit Abnormality Flag Ct Low Dose Chest Screening Summary Purpose eClinicalWorks Submission
[2020-01-08] MEDS ORDERED: METRONIDAZOLE 500mg IVPB 500 MG/100 ML BAG IV ONE (18:51)
[2020-01-08] MEDS ORDERED: CEFTRIAXONE/SWI 1gm 1 GM/10 ML SYR ONE (18:51)
[2020-01-08] MEDS ORDERED: NA CHLORIDE 0.9% 1,000 ML ONE (18:52)
[2020-01-08 19:13] LABS: Absolute Lymphocytes (CBC) 1.4 K/uL (0.7-4.9); Basophils % 0.7 % (0-1.3); Hematocrit 46.1 % (39.6-49.0); Lymphocytes % 11.7 % (15.3-44.8); MPV 9.1 fL (7.6-11.3); RBC Red Blood Cell Count 5.21 M/uL (4.33-5.43)
[2020-01-08 19:30] LABS: Albumin 4.2 g/dL (3.4-5.0); Bilirubin Direct 0.1 mg/dL (0-0.2); Bilirubin Total 0.3 mg/dL (0.2-1.0); Protein, Total 8.4 g/dL (6.4-8.2)
[2020-01-08 19:31] LABS: Potassium 4.3 mmol/L (3.5-5.1)
--- NOTE | 2020-01-08 19:43 | EDPHYS ---
Physician Documentation [facility] Name: Gregory Dumont Age: 59 yrs Sex: Male : 1960 Arrival Date: 01/08/2020 Time: 18:23 Bed 7 Private MD: ED Physician Shahnaz Miles HPI: 01/07 18:42 This 59 yrs old Male presents to ER via EMS with complaints of Abdominal Pain.ma2 18:42 The patient presents with abdominal pain. Onset: The symptoms/episode began/occurred ma2 gradually, 9 day(s) ago. Associated signs and symptoms: Pertinent negatives: anorexia, chest pain, dysuria, headache, testicular pain, vomiting. Severity of pain: At its worst the pain was moderate in the emergency department the pain is unchanged. The patient has not experienced similar symptoms in the past, The patient has experienced similar episodes in the past. Historical: - Allergies: 18:27 NKA; em - Home Meds: 18:27 [place] Carbonate Oral [Active]; venlafaxine Oral [Active]; em - PMHx: 18:27 ADD/ADHD; CVA; Bipolar disorder; HEP C; Diverticulitis; HYPOGLYCEMIA; Irregular heart em rate; - PSHx: 18:27 Knee surgery; em - Immunization history:: Adult Immunizations up to date. - Social history:: Smoking status: Patient reports the use of cigarette tobacco products, denies chronic smoking, but will smoke occasionally. - Family history:: not pertinent. ROS: 18:42 Constitutional: Negative for fever, chills, and weight loss. ma2 18:42 All other systems are negative. Exam: 18:42 Constitutional: This is a well developed, well nourished patient who is awake, alert, ma2 and in no acute distress. Chest/axilla: Normal chest wall appearance and motion. Nontender with no deformity. No lesions are appreciated. Cardiovascular: Regular rate and rhythm with a normal S1 and S2. No gallops, murmurs, or rubs. Normal PMI, no JVD. No pulse deficits. Respiratory: Lungs have equal breath sounds bilaterally, clear to auscultation and percussion. No rales, rhonchi or wheezes noted. No increased work of breathing, no retractions or nasal flaring. Abdomen/GI: Soft, non-tender, with normal bowel sounds. No distension or tympany. No guarding or rebound. No evidence of tenderness throughout. MS/ Extremity: Pulses equal, no cyanosis. Neurovascular intact. Full, normal range of motion. Neuro: Awake and alert, GCS 15, oriented to person, place, time, and situation. Cranial nerves II-XII grossly intact. Motor strength 5/5 in all extremities. Sensory grossly intact. Cerebellar exam normal. Normal gait. Vital Signs: 18:24 BP 135 / 96; Pulse 92; Resp 16; Temp 97.8; Pulse Ox 96% on R/A; Pain 7/10; em 19:43 BP 151 / 94; Pulse 68; Resp 17 S; Pulse Ox 100% on R/A; jd3 21:08 BP 155 / 95; Pulse 61; Resp 17 S; Pulse Ox 99% on R/A; Pain 0/10; jd3 MDM: 18:32 Patient medically screened. [facility] 18:42 Differential diagnosis: cholecystitis, Cholelithiasis, diverticulitis, gastritis. [facility] 19:40 Data reviewed: vital signs, nurses notes. Counseling: I had a detailed discussion with [facility] the patient and/or guardian regarding: the historical points, exam findings, and any diagnostic results supporting the discharge/admit diagnosis, the presence of at least one elevated blood pressure reading (>120/80) during this emergency department visit, the need for outpatient follow up. Response to treatment: the patient's symptoms have markedly improved after treatment. 01/07 18:40 Order name: Basic Metabolic Panel; Complete Time: 19:40 [facility] 01/07 18:40 Order name: CBC with Diff; Complete Time: 19:22 [facility] 01/07 18:40 Order name: Creatinine for Radiology; Complete Time: 19:40 [facility] 01/07 18:40 Order name: Hepatic Function; Complete Time: 19:40 [facility] 01/07 18:40 Order name: Lipase; Complete Time: 19:40 [facility] 01/07 18:40 Order name: CT Abd/Pelvis - IV Contrast Only; Complete Time: 20:52 [facility] 01/07 18:40 Order name: IV Saline Lock; Complete Time: 19:01 [facility] 01/07 18:40 Order name: Labs collected and sent; Complete Time: 19:01 [facility] Administered Medications: 18:55 Drug: NS 0.9% 1000 ml Route: IV; Rate: 1 bolus; Site: right antecubital; em 19:55 Follow up: Response: No adverse reaction; IV Status: Completed infusion; IV Intake: jd3 1000ml 19:00 Drug: Rocephin 1 grams Route: IV; Rate: calculated rate; Site: right antecubital; em 19:05 Follow up: Response: No adverse reaction; IV Status: Completed infusion; IV Intake: [id number] 19:00 Drug: Flagyl 500 mg Volume: 100 ml; Route: IVPB; Rate: 200 ml/hr; Infused Over: 30 em mins; Site: right antecubital; 20:00 Follow up: Response: No adverse reaction; IV Status: Completed infusion; IV Intake: jd3 100ml 20:04 Drug: Zofran (Ondansetron) 4 mg Route: IVP; Site: right antecubital; jd3 21:04 Follow up: Response: No adverse reaction jd3 20:05 Drug: morphine 4 mg Route: IVP; Site: right antecubital; jd3 21:05 Follow up: Response: No adverse reaction; RASS: Alert and Calm (0) jd3 Disposition: 01/08/20 19:41 Discharged to Home. Impression: Diverticular disease of intestine. - Condition is Stable. - Discharge Instructions: Diverticulitis. - Prescriptions for Bentyl 10 mg Oral Capsule - take 1 capsule by ORAL route every 6 hours As needed; 40 capsule. Flagyl 500 mg Oral Tablet - take 1 tablet by ORAL route every 12 hours for 7 days; 14 tablet. Zofran 4 mg Oral Tablet - take 1 tablet by ORAL route every 12 hours As needed; 20 tablet. Cipro 500 mg Oral Tablet - take 1 tablet by ORAL route every 12 hours for 7 days; 14 tablet. Pepcid 20 mg Oral Tablet - take 1 tablet by ORAL route once daily for 10 days; 10 tablet. - Medication Reconciliation Form, Thank You Letter, Antibiotic Education, Prescription Opioid Use form. - Follow up: Private Physician; When: Tomorrow; Reason: Continuance of care. Signatures: Dispatcher [employer] Fredy Najera RN RN em Davies, Jonathon, RN RN jd3 Alzahri, Mohammad, MD MD fl2 Corrections: (The following items were deleted from the chart) 21:11 19:41 01/08/2020 19:41 Discharged to Home. Impression: Diverticular disease of jd3 intestine. Condition is Stable. Prescriptions for Bentyl 10 mg Oral Capsule - take 1 capsule by ORAL route every 6 hours As needed; 40 capsule, Flagyl 500 mg Oral Tablet - take 1 tablet by ORAL route every 12 hours for 7 days; 14 tablet, Zofran 4 mg Oral Tablet - take 1 tablet by ORAL route every 12 hours As needed; 20 tablet, Cipro 500 mg Oral Tablet - take 1 tablet by ORAL route every 12 hours for 7 days; 14 tablet, Pepcid 20 mg Oral Tablet - take 1 tablet by ORAL route once daily for 10 days; 10 tablet. and Forms are Medication Reconciliation Form, Thank You Letter, Antibiotic Education, Prescription Opioid Use. Follow up: Private Physician; When: Tomorrow; Reason: Continuance of care. ma2
--- NOTE | 2020-01-08 19:43 | ER ---
Nurse's Notes [facility] Name: Gregory Dumont Age: 59 yrs Sex: Male : 1960 Arrival Date: 01/08/2020 Time: 18:23 Bed 7 Private MD: Diagnosis: Diverticular disease of intestine Presentation: 01/07 18:24 Chief complaint: EMS states: complaint of left lower abdominal pain for 5 days, reports em Hx of diverticulitis, was seen here on the December, did not fill ABX. Coronavirus screen: Patient denies fever greater than 100.4F, cough, shortness of breath, or difficulty breathing. Proceed with normal triage process. Ebola Screen: Patient negative for fever greater than or equal to 101.5 degrees Fahrenheit, and additional compatible Ebola Virus Disease symptoms Patient denies exposure to infectious person. Patient denies travel to an Ebola-affected area in the 21 days before illness onset. No symptoms or risks identified at this time. Initial Sepsis Screen: Does the patient meet any 2 criteria? No. Patient's initial sepsis screen is negative. Does the patient have a suspected source of infection? No. Patient's initial sepsis screen is negative. Risk Assessment: Do you want to hurt yourself or someone else? Patient reports no desire to harm self or others. 18:24 Method Of Arrival: EMS: [facility] em 18:24 Acuity: MARION 3 em 19:44 Onset of symptoms was January 03, 2020. jd3 Historical: - Allergies: 18:27 NKA; em - Home Meds: 18:27 Kaylor Carbonate Oral [Active]; venlafaxine Oral [Active]; em - PMHx: 18:27 ADD/ADHD; CVA; Bipolar disorder; HEP C; Diverticulitis; HYPOGLYCEMIA; Irregular heart em rate; - PSHx: 18:27 Knee surgery; em - Immunization history:: Adult Immunizations up to date. - Social history:: Smoking status: Patient reports the use of cigarette tobacco products, denies chronic smoking, but will smoke occasionally. - Family history:: not pertinent. Screenin:27 Abuse screen: Denies threats or abuse. Nutritional screening: No deficits noted. em Tuberculosis screening: No symptoms or risk factors identified. Fall Risk None identified. Assessment: 18:24 General: Appears in no apparent distress. comfortable, Behavior is calm, cooperative, em appropriate for age, Denies fever. Pain: Complains of pain in left lower quadrant Pain currently is 7 out of 10 on a pain scale. Neuro: Level of Consciousness is awake, alert, obeys commands, Oriented to person, place, time, situation, Appropriate for age. Cardiovascular: Capillary refill < 3 seconds Patient's skin is warm and dry. Respiratory: Airway is patent Respiratory effort is even, unlabored, Respiratory pattern is regular, symmetrical. GI: Abdomen is flat, Bowel sounds present X 4 quads. Abd is soft X 4 quads Abdomen is tender to palpation in left lower quadrant Reports lower abdominal pain, Patient currently denies nausea, vomiting. Derm: Skin is intact, is healthy with good turgor, Skin is pink, warm \T\ dry. Musculoskeletal: Capillary refill < 3 seconds, Range of motion: intact in all extremities. 19:41 General: Appears in no apparent distress. comfortable, Behavior is calm, cooperative, jd3 appropriate for age. Pain: Complains of pain in left lower quadrant Quality of pain is described as aching, tender. Neuro: Level of Consciousness is awake, alert, obeys commands, Oriented to person, place, time, situation. Cardiovascular: Denies chest pain, Capillary refill < 3 seconds Patient's skin is warm and dry. Respiratory: Airway is patent Respiratory effort is even, unlabored, Respiratory pattern is regular, symmetrical, Denies cough, shortness of breath. GI: Abdomen is flat, Abd is soft X 4 quads Abdomen is tender to palpation in left lower quadrant Reports lower abdominal pain, Patient currently denies nausea, vomiting. : No signs and/or symptoms were reported regarding the genitourinary system. EENT: No signs and/or symptoms were reported regarding the EENT system. Derm: Skin is intact, Skin is dry, Skin is normal, Skin temperature is warm. Musculoskeletal: Circulation, motion, and sensation intact. Range of motion: intact in all extremities. 20:06 Reassessment: awaiting CT result and medication administration before discharge. jd3 21:06 Reassessment: Patient appears in no apparent distress at this time. Patient and/or jd3 family updated on plan of care and expected duration. Pain level reassessed. Patient is alert, oriented x 3, equal unlabored respirations, skin warm/dry/pink. Patient states feeling better. Vital Signs: 18:24 BP 135 / 96; Pulse 92; Resp 16; Temp 97.8; Pulse Ox 96% on R/A; Pain 7/10; em 19:43 BP 151 / 94; Pulse 68; Resp 17 S; Pulse Ox 100% on R/A; jd3 21:08 BP 155 / 95; Pulse 61; Resp 17 S; Pulse Ox 99% on R/A; Pain 0/10; jd3 ED Course: 18:23 Patient arrived in ED. em 18:24 Fredy Vasquez, RN is Primary Nurse. em 18:26 Triage completed. em 18:27 Arm band placed on. em 18:27 Patient has correct armband on for positive identification. Placed in gown. Bed in low em position. Call light in reach. Pulse ox on. NIBP on. 18:32 Shahnaz Miles MD is Attending Physician. ma 19:00 Initial lab(s) drawn, by me, sent to lab. Inserted saline lock: 18 gauge in right em antecubital area, using aseptic technique. Blood collected. 19:45 CT Abd/Pelvis - IV Contrast Only In Process Unspecified. EDMS 21:06 No provider procedures requiring assistance completed. IV discontinued, intact, jd3 bleeding controlled, No redness/swelling at site. Pressure dressing applied. Administered Medications: 18:55 Drug: NS 0.9% 1000 ml Route: IV; Rate: 1 bolus; Site: right antecubital; em 19:55 Follow up: Response: No adverse reaction; IV Status: Completed infusion; IV Intake: jd3 1000ml 19:00 Drug: Rocephin 1 grams Route: IV; Rate: calculated rate; Site: right antecubital; em 19:05 Follow up: Response: No adverse reaction; IV Status: Completed infusion; IV Intake: [id number] 19:00 Drug: Flagyl 500 mg Volume: 100 ml; Route: IVPB; Rate: 200 ml/hr; Infused Over: 30 em mins; Site: right antecubital; 20:00 Follow up: Response: No adverse reaction; IV Status: Completed infusion; IV Intake: jd3 100ml 20:04 Drug: Zofran (Ondansetron) 4 mg Route: IVP; Site: right antecubital; jd3 21:04 Follow up: Response: No adverse reaction jd3 20:05 Drug: morphine 4 mg Route: IVP; Site: right antecubital; jd3 21:05 Follow up: Response: No adverse reaction; RASS: Alert and Calm (0) jd3 Intake: 19:05 IV: 10ml; Total: 10ml. jd3 19:55 IV: 1000ml; Total: 1010ml. jd3 20:00 IV: 100ml; Total: 1110ml. jd3 Outcome: 19:41 Discharge ordered by MD. [place] 21:07 Discharged to home ambulatory. jd3 21:07 Condition: stable 21:07 Discharge instructions given to patient, Instructed on discharge instructions, follow up and referral plans. medication usage, Demonstrated understanding of instructions, follow-up care, medications, Prescriptions given X X 5 21:11 Patient left the ED. jd3 Signatures: Dispatcher [employer] Fredy Najera, RN Carlos Munoz RN RN jd3 Alzahri, Mohammad, MD MD ma2
[2020-01-08] MEDS ORDERED: ONDANSETRON 4 MG/2 ML VIAL ONE (20:04)
[2020-01-08] MEDS ORDERED: MORPHINE 4 MG/ML SYR ONE (20:04)
--- NOTE | 2020-01-08 20:24 | RAD REPORT ---
EXAM DESCRIPTION: CT - Abdomen Pelvis W Contrast - 01/08/2020 7:45 pm CLINICAL HISTORY: Abdominal pain COMPARISON: January 03, 2020 TECHNIQUE: Computed axial tomography of the abdomen pelvis was obtained. 100 cc Isovue-300 was admin istered intravenously. Oral contrast was not requested which limits evaluation of bowel. All CT scans are performed using dose optimization technique as appropriate and may include automated exposure control or mA/KV adjustment according to patient size. FINDINGS: The liver, spleen, pancreas, and adrenals appear unremarkable. Small bilateral nonobstructing renal calculi. Unchanged right renal cyst Mild stranding adjacent to sigmoid colon. Diverticulosis is present. The small amount of extraluminal air has mildly increased. It currently measures approximately 14 x 3 millimeters. . A fluid-filled a bscess is not present Spondylolysis L5. Small right inguinal hernia contains fat Small duodenal diverticulum IMPRESSION: Mild to moderate sigmoid diverticulitis. Mild progression in extraluminal air. A fluid-f illed abscess is not noted
[2020-01-08 23:04] VITALS: BP 155/95; TEMP 97.8; O2SAT 99
== END 2020-01-08 21:11 | disposition home or self-care (01) ==
LOC: ER 18:21
DX: K57.90 Diverticulosis of intestine, part unspecified, without perforation or abscess without bleeding (principal); F31.9 Bipolar disorder, unspecified; Z72.0 Tobacco use
CPT/HCPCS: 85025; 80048; 36415; 80076; 83690; 74177; Q9967; J0696; J7030; J2405; 96365; 96375; 99284

== ENCOUNTER 2020-01-14 12:34 | Emergency (ER) | payer OTHER ==
--- OUTSIDE RECORDS SUMMARY | 2020-01-14 12:36 | XMS REPORT ---
:1960 [facility] Address [address] [place] [address] Dr. Nicole [address] [place] [id number] Care Team Providers Name Role Phone Unavailable Unavailable Unavailable Problems This patient has no known problems. Allergies, Adverse Reactions, Alerts This patient has no known allergies or adverse reactions. Medications This patient has no known medications.
--- OUTSIDE RECORDS SUMMARY | 2020-01-14 12:36 | XMS REPORT ---
[...] Status Dosage System Date Date Cipro [facility] 82733215003 500 MG Orally Nov Active 1 tablet every 12 hrs 2018 Metronidazole ND 04750664392 500 MG Orally Nov Active 1 tablet every 6 hours 2018 Lithobid [facility] 48788120603 300 MG Orally Active 1 tablet twice a day Atorvastatin ND 67701418998 20 MG Orally Active 1 tablet Calcium Once a day Co-Enzyme Q-10 ND 72549121528 100 MG Orally Active 2 capsule Once a day with a meal Melatonin [facility] 56110515461 3 MG Orally Active 1 tablet Once a day at bedtime as needed with food Cyanocobalamin [facility] 68623267258 2500 MCG Active as Sublingual once directed a day Memantine HCl ND 29434151377 10 MG Orally Active 1 tablet Twice a day Trazodone HCl [facility] 18349943054 100 MG Orally Active 1 tablet Once a day at bedtime Atorvastatin [facility] 19858704962 40 MG Orally Active 1 tablet Calcium Once a day Fish Oil ND 29737786914 1000 MG Orally Active 1 capsule Once a day Ranitidine HCl [facility] 65513902411 150 MG Active TAKE 1 TABLET BY MOUTH TWICE A DAY Thiamine [facility] 95245264821 50 MG Orally Active 2 capsules Once a day Super B-Complex [facility] 66562252687 - Orally once a Active as day directed Ezetimibe ND 97950584809 10 MG Orally Nov 15, Active 1 tablet Once a day 2018 D3 Maximum [facility] 19123195057 5000 UNIT Active 1 capsule Strength Orally Once a day Cyclobenzaprine ND 59006278835 10 MG Orally Sep 06Sep Active 1 tablet HCl once a day at 2018 11, as needed bedtime 2018 Ascorbic Acid [facility] 81621183042 500 MG Orally Active 1 tablet twice a day Lancets Super Thin NDC 0 n/s finger January Active one stick once 2018 Vitamin B12 [facility] 25746276869 1000 MCG Orally Active 1 tablet Once a day Albuterol Sulfate [facility] 80022542856 108 (90 Base) Aug 01, Active 2 puffs HFA MCG/ACT 2018 Inhalation every 6 hours prn sob Seroquel ND 45613261417 400 MG Orally Dec 14, Active 1 tablet Once a day at 2018 bedtime blood glucose test NDC 0 n/s SC once a January Active one strip day 2018 Diclofenac Sodium [facility] 99930040751 75 MG Orally Active 1 tablet Twice a day prn with food pain or milk Zetia [facility] 72892037477 10 MG Orally Active 1 tablet Once a day Vitamin B12 [facility] 66379284781 1000 MCG Orally Active 1 tablet Once a day Incruse Ellipta [facility] 14091085355 62.5 MCG/INH Aug 01April Active 1 puff Inhalation Once 2019 12, a day 2020 Results No Known Results Summary Purpose eClinicalWorks Submission
--- OUTSIDE RECORDS SUMMARY | 2020-01-14 12:36 | XMS REPORT ---
[...] Status Dosage System Date Date Albuterol Sulfate [facility] 02202651178 108 (90 Base) Aug 01, 2 puffs HFA MCG/ACT 2018 Inhalation every 6 hours prn sob Incruse Ellipta [facility] 20390783178 62.5 MCG/INH Aug 01April Active 1 puff Inhalation Once 2018 12, a day 2019 blood glucose ND 0 n/s SC once a January Active one test strip 2018 Alcohol Prep Pads ND 0 topical once a January Active as day , directed 2018 [address] [facility] 06471258287 300 MG Orally Active 1 tablet twice a day Seroquel ND 86528286024 400 MG Orally Dec 14, Active 1 tablet Once a day at 2017 bedtime Sildenafil ND 85788960039 100 MG Orally Oct Inactive 1 tablet Citrate Once a day [address] [facility] 11976196109 20 MG Orally Active 1 tablet Calcium Once a day Fish Oil [facility] 53722669245 1000 MG Orally Active 1 capsule Once a day Super B-Complex [facility] 67142804703 - Orally once a Active as day directed D3 Maximum [facility] 77257135436 5000 UNIT Active 1 capsule Strength Orally Once a day Memantine HCl [facility] 47930800008 10 MG Orally Active 1 tablet Twice a day Atorvastatin [facility] 32070244677 40 MG Orally Active 1 tablet Calcium Once a day Vitamin B12 [facility] 23800815077 1000 MCG Orally Active 1 tablet Once a day Cyanocobalamin [facility] 30877070118 2500 MCG Active as Sublingual once directed a day Co-Enzyme Q-[address] [facility] 00243299992 100 MG Orally Active 2 capsule Once a day with a meal Zetia [facility] 53795661693 10 MG Orally Active 1 tablet Once a day Lancets Super NDC 0 n/s finger January Active one Thin stick once 2018 Diclofenac Sodium [facility] 19871130858 75 MG Orally Active 1 tablet Twice a day prn with food pain or milk Trazodone HCl [facility] 20286915624 100 MG Orally Active 1 tablet Once a day at bedtime Ascorbic Acid [facility] 94888654565 500 MG Orally Active 1 tablet twice a day Cialis [facility] 76649122078 20 MG Orally Aug 01Aug Active 1 tablet [address] [facility] 34743636826 50 MG Orally Active 2 capsules Once a day Vitamin B12 [facility] 41414560946 1000 MCG Orally Active 1 tablet Once a day Melatonin [facility] 77009947470 3 MG Orally Active 1 tablet Once a day at bedtime as needed with food Ezetimibe [facility] 36111497089 10 MG Orally Nov 15, Active 1 tablet Once a day 2018 Results Name Result Date Reference Range Unit Abnormality Flag Ct Low Dose Chest Screening Summary Purpose eClinicalWorks Submission
[2020-01-14 13:07] LABS: Absolute Lymphocytes (CBC) 1.2 K/uL (0.7-4.9); Basophils % 0.6 % (0-1.3); Hematocrit 41.3 % (39.6-49.0); Lymphocytes % 8.5 % (15.3-44.8); MPV 9.9 fL (7.6-11.3)
[2020-01-14 13:20] LABS: Albumin 3.7 g/dL (3.4-5.0); Bilirubin Direct 0.1 mg/dL (0-0.2); Bilirubin Total 0.4 mg/dL (0.2-1.0); Protein, Total 6.9 g/dL (6.4-8.2)
[2020-01-14] MEDS ORDERED: NA CHLORIDE 0.9% 1,000 ML ONE (13:26)
--- NOTE | 2020-01-14 13:53 | RAD REPORT ---
EXAM DESCRIPTION: CT - Head Brain Wo Cont - 01/14/2020 1:44 pm CLINICAL HISTORY: DECLINING STATE Headache, drowsiness COMPARISON: Head angio dated 09/06/2019; Head Brain Wo Cont dated 09/06/2019 TECHNIQUE: All CT scans are performed using dose optimization technique as appropriate and may inclu de automated exposure control or mA/KV adjustment according to patient size. FINDINGS: No intracranial hemorrhage, hydrocephalus or extra-axial fluid collection.No areas of brai n edema or evidence of midline shift. The paranasal sinuses and mastoids are clear. The calvarium is intact. IMPRESSION: No acute intracranial abnormality.
--- NOTE | 2020-01-14 14:03 | ER ---
Nurse's Notes [facility] Name: Gregory Dumont Age: 59 yrs Sex: Male : 1960 Arrival Date: 01/14/2020 Time: 12:36 Bed 13 Private MD: Diagnosis: Tremor, unspecified Presentation: 01/13 12:36 Chief complaint: EMS states: EXTREMITY WEAKNESS AND SLURRED SPEECH x4 DAYS. Coronavirus bp screen: Patient denies fever greater than 100.4F, cough, shortness of breath, or difficulty breathing. Proceed with normal triage process. Ebola Screen: No symptoms or risks identified at this time. Initial Sepsis Screen: Does the patient meet any 2 criteria? No. Patient's initial sepsis screen is negative. Does the patient have a suspected source of infection? No. Patient's initial sepsis screen is negative. Risk Assessment: Do you want to hurt yourself or someone else? Patient reports no desire to harm self or others. 12:36 Method Of Arrival: EMS: [facility] bp 12:36 Acuity: MARION 3 bp 12:41 Care prior to arrival: Glucose check: 158. bp Triage Assessment: 12:38 General: Appears in no apparent distress. comfortable, Behavior is cooperative, bp appropriate for age, anxious. Pain: Denies pain. EENT: No deficits noted. Neuro: Reports SLURRED SPEECH. Cardiovascular: No deficits noted. Respiratory: No deficits noted. GI: No signs and/or symptoms were reported involving the gastrointestinal system. : No signs and/or symptoms were reported regarding the genitourinary system. Derm: No deficits noted. Musculoskeletal: No signs and/or symptoms reported regarding the musculoskeletal system. Historical: - Allergies: 12:38 NKA; bp - Home Meds: 12:38 None [Active]; bp - PMHx: 12:38 ADD/ADHD; Bipolar disorder; CVA; Diverticulitis; HEP C; HYPOGLYCEMIA; Irregular heart bp rate; - Immunization history:: Adult Immunizations unknown. - Social history:: Smoking status: unknown Patient/guardian denies using alcohol, street drugs, The patient lives with family. - Family history:: not pertinent. Screenin:40 Abuse screen: Denies threats or abuse. Denies injuries from another. Nutritional bp screening: No deficits noted. Tuberculosis screening: No symptoms or risk factors identified. Fall Risk None identified. Assessment: 12:40 General: SEE TRIAGE NOTE. bp 13:59 Reassessment: ALL CURRENT ORDERS COMPLETED AND RESULTED. VS STABLE. bp 14:36 Reassessment: PT D/C HOME AMBULATORY, DX WITH NONSPECIFIC TREMORS. bp Vital Signs: 12:36 BP 129 / 84; Pulse 84; Resp 16; Temp 97.5; Pulse Ox 98% ; Weight 68.04 kg; bp 12:55 BP 98 / 85; Pulse 66; Resp 16; Pulse Ox 97% ; bp 13:59 BP 131 / 74; Pulse 64; Resp 16; Pulse Ox 100% ; bp 14:36 BP 134 / 89; Pulse 65; Resp 17; Temp 98; Pulse Ox 97% ; bp ED Course: 12:36 Patient arrived in ED. bp 12:36 Shahnaz Miles MD is Attending Physician. ma2 12:38 Triage completed. bp 12:39 Arm band placed on. bp 12:40 Patient has correct armband on for positive identification. Bed in low position. Call bp light in reach. Side rails up X2. 12:42 Carlos Eduardo Goddard, RN is Primary Nurse. bp 12:50 Inserted saline lock: 20 gauge in right forearm, using aseptic technique. Blood bp collected. 13:44 CT Head Brain wo Cont In Process Unspecified. EDMS 14:02 Tigre Romero MD is Referral Physician. ma2 14:36 No provider procedures requiring assistance completed. IV discontinued, intact, bp bleeding controlled, No redness/swelling at site. Pressure dressing applied. Administered Medications: 13:20 Drug: NS 0.9% 1000 ml Route: IV; Rate: 1 bolus; Site: right forearm; bp 14:38 Follow up: IV Status: Completed infusion; IV Intake: 1000ml bp 14:11 Drug: Benadryl 25 mg Route: IVP; Site: right forearm; bp 14:38 Follow up: Response: Marked relief of symptoms bp Intake: 14:38 IV: 1000ml; Total: 1000ml. bp Outcome: 14:02 Discharge ordered by . ma2 14:36 Discharged to home ambulatory. bp 14:36 Condition: stable 14:36 Discharge instructions given to patient, Instructed on discharge instructions, follow up and referral plans. Demonstrated understanding of instructions, follow-up care. 14:38 Patient left the ED. bp Signatures: Dispatcher [employer] EDMS Rupesh, Carlos Eduardo, RN RN bp Shahnaz Miles MD MD ma2
--- NOTE | 2020-01-14 14:03 | EDPHYS ---
Physician Documentation [facility] Name: Gregory Dumont Age: 59 yrs Sex: Male : 1960 Arrival Date: 01/14/2020 Time: 12:36 Bed 13 Private MD: ED Physician Shahnaz Miles HPI: 01/13 13:15 This 59 yrs old Male presents to ER via EMS with complaints of General ma2 Weakness. 13:15 generalized weakness. Onset: The symptoms/episode began/occurred gradually, 3 day(s) ma2 ago. Severity of symptoms: At their worst the symptoms were mild in the emergency department the symptoms are unchanged. The patient has not experienced similar symptoms in the past. Historical: - Allergies: 12:38 NKA; bp - Home Meds: 12:38 None [Active]; bp - PMHx: 12:38 ADD/ADHD; Bipolar disorder; CVA; Diverticulitis; HEP C; HYPOGLYCEMIA; Irregular heart bp rate; - Immunization history:: Adult Immunizations unknown. - Social history:: Smoking status: unknown Patient/guardian denies using alcohol, street drugs, The patient lives with family. - Family history:: not pertinent. ROS: 13:15 Constitutional: Negative for fever, chills, and weight loss. ma2 13:15 All other systems are negative. Exam: 13:15 Constitutional: This is a well developed, well nourished patient who is awake, alert, ma2 and in no acute distress. Head/Face: Normocephalic, atraumatic. Eyes: Pupils equal round and reactive to light, extra-ocular motions intact. Lids and lashes normal. Conjunctiva and sclera are non-icteric and not injected. Cornea within normal limits. Periorbital areas with no swelling, redness, or edema. ENT: Nares patent. No nasal discharge, no septal abnormalities noted. Tympanic membranes are normal and external auditory canals are clear. Oropharynx with no redness, swelling, or masses, exudates, or evidence of obstruction, uvula midline. Mucous membranes moist. Neck: Trachea midline, no thyromegaly or masses palpated, and no cervical lymphadenopathy. Supple, full range of motion without nuchal rigidity, or vertebral point tenderness. No Meningismus. Chest/axilla: Normal chest wall appearance and motion. Nontender with no deformity. No lesions are appreciated. Cardiovascular: Regular rate and rhythm with a normal S1 and S2. No gallops, murmurs, or rubs. Normal PMI, no JVD. No pulse deficits. Respiratory: Lungs have equal breath sounds bilaterally, clear to auscultation and percussion. No rales, rhonchi or wheezes noted. No increased work of breathing, no retractions or nasal flaring. Abdomen/GI: Soft, non-tender, with normal bowel sounds. No distension or tympany. No guarding or rebound. No evidence of tenderness throughout. MS/ Extremity: Pulses equal, no cyanosis. Neurovascular intact. Full, normal range of motion. Neuro: Awake and alert, GCS 15, oriented to person, place, time, and situation. Cranial nerves II-XII grossly intact. Motor strength 5/5 in all extremities. Sensory grossly intact. Cerebellar exam normal. Normal gait. Vital Signs: 12:36 BP 129 / 84; Pulse 84; Resp 16; Temp 97.5; Pulse Ox 98% ; Weight 68.04 kg; bp 12:55 BP 98 / 85; Pulse 66; Resp 16; Pulse Ox 97% ; bp 13:59 BP 131 / 74; Pulse 64; Resp 16; Pulse Ox 100% ; bp 14:36 BP 134 / 89; Pulse 65; Resp 17; Temp 98; Pulse Ox 97% ; bp MDM: 12:36 Patient medically screened. [facility] 13:15 Differential Diagnosis electrolytes abnormalities, dehydrations vs infection . [facility] 14:02 Data reviewed: vital signs, nurses notes. Counseling: I had a detailed discussion with [facility] the patient and/or guardian regarding: the historical points, exam findings, and any diagnostic results supporting the discharge/admit diagnosis, the presence of at least one elevated blood pressure reading (>120/80) during this emergency department visit, the need for outpatient follow up. Response to treatment: the patient's symptoms have resolved after treatment. 01/13 12:36 Order name: Basic Metabolic Panel; Complete Time: 13:23 [facility] 01/13 12:36 Order name: CBC with Diff; Complete Time: 13:14 [facility] 01/13 12:36 Order name: Creatinine for Radiology; Complete Time: 13:23 [facility] 01/13 12:36 Order name: Hepatic Function; Complete Time: 13:23 [facility] 01/13 12:36 Order name: Lipase; Complete Time: 13:23 ma2 01/13 12:49 Order name: AMMONIA; Complete Time: 13:23 ma2 01/13 12:36 Order name: IV Saline Lock; Complete Time: 12:55 ma2 01/13 12:36 Order name: Labs collected and sent; Complete Time: 12:55 ma2 01/13 13:23 Order name: CT Head Brain wo Cont; Complete Time: 14:02 ma2 Administered Medications: 13:20 Drug: NS 0.9% 1000 ml Route: IV; Rate: 1 bolus; Site: right forearm; bp 14:38 Follow up: IV Status: Completed infusion; IV Intake: 1000ml bp 14:11 Drug: Benadryl 25 mg Route: IVP; Site: right forearm; bp 14:38 Follow up: Response: Marked relief of symptoms bp Disposition: 01/14/20 14:02 Discharged to Home. Impression: Tremor, unspecified. - Condition is Stable. - Discharge Instructions: Tremor. - Medication Reconciliation Form, Thank You Letter, Antibiotic Education, Prescription Opioid Use form. - Follow up: Tigre Romero; When: Tomorrow; Reason: Continuance of care. Signatures: Dispatcher [employer] EDCarlos Eduardo Johnson RN RN bp Alzahri, Mohammad, MD MD ma2 Corrections: (The following items were deleted from the chart) 14:38 14:02 01/14/2020 14:02 Discharged to Home. Impression: Tremor, unspecified. Condition bp is Stable. Forms are Medication Reconciliation Form, Thank You Letter, Antibiotic Education, Prescription Opioid Use. Follow up: Tigre Romero; When: Tomorrow; Reason: Continuance of care. ma2
[2020-01-14] MEDS ORDERED: DIPHENHYDRAMINE 50 MG/ML VIAL ONE (14:13)
== END 2020-01-14 14:38 | disposition home or self-care (01) ==
LOC: ER 12:34
DX: R25.1 Tremor, unspecified (principal)
CPT/HCPCS: 96361; 85025; 80048; 36415; 82140; 80076; 83690; 70450; 96374; 99284; J1200; J7030

== ENCOUNTER 2020-02-08 12:24 | Emergency (ER) | payer OTHER ==
--- OUTSIDE RECORDS SUMMARY | 2020-02-08 12:30 | XMS REPORT ---
:1960 Author Organization [employer] Care Team Providers Name Role Phone Gomes, Na Provider Role Unavailable Allergies No Known Allergies Problems Problem Type Condition Code Onset Dates Condition Statu s Problem Mild memory disturbance R41.3 Acti ve Problem Dementia in other diseases F02.80 A ctive classified elsewhere without behavioral disturbance Problem Alzheimer''s disease, unspecified G30.9 Active Problem Nicotine dependence, cigarettes, F17.210 Active uncomplicated Problem Irritability and anger R45.4 Activ e Problem Simple chronic bronchitis J41.0 Ac tive Problem Smoker F17.200 Active Problem Elevated blood pressure reading R03.0 Active without diagnosis of hypertension Problem 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 Problem Otalgia of left ear H92.02 Active Problem Hypoglycemia E16.2 Active Problem Erectile dysfunction, unspecified N52.9 Active erectile dysfunction type Problem Impacted cerumen of left ear H61.22 Active Problem Arthritis M19.90 Active Problem Essential hypertension I10 Activ e Problem Folliculitis L73.9 Active Problem Bipolar 1 disorder F31.9 Active Problem Mixed hyperlipidemia E78.2 Active Problem Primary osteoarthritis involving M15.0 Active multiple joints Problem Other chronic pain G89.29 Active Problem Paresthesia of skin R20.2 Active Problem Pure hypercholesterolemia E78.00 Ac tive Problem Encounter for tobacco use cessation Z71.6 Active counseling Medications No Known Medications Results No Known Results Summary Purpose [employer] Submission
--- OUTSIDE RECORDS SUMMARY | 2020-02-08 12:30 | XMS REPORT ---
:1960 Author Organization [employer] Care Team Providers Name Role Phone Gomes, Na Provider Role Unavailable Allergies No Known Allergies Problems Problem Type Condition Code Onset Dates Condition Statu s Problem Encounter for tobacco use cessation Z71.6 Active counseling Problem Alzheimer''s disease, unspecified G30.9 Active Problem Mild memory disturbance R41.3 Acti ve Problem Simple chronic bronchitis J41.0 Ac tive Problem Smoker F17.200 Active Problem Erectile dysfunction, unspecified N52.9 Active erectile dysfunction type Problem Elevated blood pressure reading R03.0 Active without diagnosis of hypertension Problem Nicotine dependence, cigarettes, F17.210 Active uncomplicated Problem Hypoglycemia E16.2 Active Problem Dementia in other diseases F02.80 A ctive classified elsewhere without behavioral disturbance Problem Impacted cerumen of left ear H61.22 Active Problem Otalgia of left ear H92.02 Active Problem Bipolar 1 disorder F31.9 Active Problem Arthritis M19.90 Active Problem Irritability and anger R45.4 Activ e Problem Folliculitis L73.9 Active Problem Pure hypercholesterolemia E78.00 Ac tive Problem Mixed hyperlipidemia E78.2 Active Problem Essential hypertension I10 Activ e Problem Primary osteoarthritis involving M15.0 Active multiple joints Problem Other chronic pain G89.29 Active Problem Paresthesia of skin R20.2 Active Medications No Known Medications Results No Known Results Summary Purpose [employer] Submission
--- OUTSIDE RECORDS SUMMARY | 2020-02-08 12:30 | XMS REPORT ---
:1960 Author Organization [employer] Care Team Providers Name Role Phone Gomes, Na Provider Role Unavailable Allergies, Adverse Reactions, Alerts Substance Reaction Event Type N.K.D.A. Info Not Available Non Drug Allergy Problems Problem Type Condition Code Onset Dates Condition Statu s Assessment 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 Assessment Primary stabbing headache G44.85 Ac tive Problem Paresthesia of skin R20.2 Active Assessment Diverticulitis K57.92 Active Problem Encounter for tobacco use cessation Z71.6 Active counseling Problem Mild memory disturbance R41.3 Acti ve Problem Dementia in other diseases F02.80 A ctive classified elsewhere without behavioral disturbance Problem Alzheimer''s disease, unspecified G30.9 Active Problem Nicotine dependence, cigarettes, F17.210 Active uncomplicated Problem Simple chronic bronchitis J41.0 Ac tive Problem Irritability and anger R45.4 Activ e Problem Smoker F17.200 Active Problem Primary osteoarthritis [...] pain G89.29 Active Problem Pure hypercholesterolemia E78.00 Ac tive Medications Medication Code Code Instructions Start End Status Dosage System Date Date Cipro [facility] 00863290394 500 MG Orally Nov Active 1 tabl et every 12 hrs 2018 Metronidazole [facility] 88665539566 500 MG Orally Nov Active 1 tablet every 6 hours 2018 Lithobid [facility] 60777447887 300 MG Orally Active 1 tab let twice a day Atorvastatin [facility] 34251993928 20 MG Orally Active 1 tablet Calcium Once a day Co-Enzyme Q-10 [facility] 51140963075 100 MG Orally Active 2 capsule Once a day with a meal Melatonin ND 63888095881 3 MG Orally Active 1 tabl et Once a day at bedtime as needed with food Cyanocobalamin [facility] 88849075341 2500 MCG Active as Sublingual once directed a day Memantine HCl ND 25160436556 10 MG Orally Active 1 tablet Twice a day Trazodone HCl ND 08681560278 100 MG Orally Active 1 tablet Once a day at bedtime Atorvastatin ND 80905421240 40 MG Orally Active 1 tablet Calcium Once a day Fish Oil ND 89960975663 1000 MG Orally Active 1 ca psule Once a day Ranitidine HCl ND 76877732525 150 MG Active TAKE 1 TABLET BY MOUTH TWICE A DAY Thiamine [facility] 33025529101 50 MG Orally Active 2 caps ules Once a day Super B-Complex ND 92954284920 - Orally once a Acti ve as day directed Ezetimibe ND 49279709074 10 MG Orally Nov 15, Active 1 tab let Once a day 2018 D3 Maximum ND 77558359200 5000 UNIT Active 1 capsu le Strength Orally Once a day Cyclobenzaprine ND 93807084893 10 MG Orally Sep 06Sep Active 1 tablet HCl once a day at 2018 11, as needed bedtime 2018 Ascorbic Acid [facility] 16443398541 500 MG Orally Active 1 tablet twice a day Lancets Super Thin NDC 0 n/s finger January Active on e stick once 2018 Vitamin B12 ND 31932157199 1000 MCG Orally Active 1 tablet Once a day Albuterol Sulfate [facility] 66410612409 108 (90 Base) Aug 01, Acti ve 2 puffs HFA MCG/ACT 2019 Inhalation every 6 hours prn sob Seroquel ND 06900032858 400 MG Orally Dec 14, Active 1 tab let Once a day at 2018 bedtime blood glucose test NDC 0 n/s SC once a January Active one strip day 2018 Diclofenac Sodium ND 22269861433 75 MG Orally Activ e 1 tablet Twice a day prn with gonsalo d pain or milk Zetia ND 90217008335 10 MG Orally Active 1 table t Once a day Vitamin B12 [facility] 83936201731 1000 MCG Orally Active 1 tablet Once a day Earle Avitia [facility] 98909141498 62.5 MCG/INH Aug 01April Active 1 puff Inhalation Once 2018 12, a day 2019 Results No Known Results Summary Purpose eClinicalWorks Submission
--- OUTSIDE RECORDS SUMMARY | 2020-02-08 12:30 | XMS REPORT ---
:[address] [facility] t Address 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 Primary Primary Problem Active 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 Smoker Smoker Problem Active Essential Essential Problem Active hypertensio hypertensio n n Other Other Problem Active chronic chronic pain pain Irritabilit Irritabilit Problem Active y and anger y and anger Elevated Elevated Problem Active blood blood pressure pressure reading reading without without diagnosis diagnosis of of hypertensio hypertensio n n Encounter Encounter Problem Active for tobacco for tobacco use use cessation cessation counseling counseling Mild memory Mild memory Problem Active disturbance disturbance Paresthesia Paresthesia Problem Active of skin of skin Otalgia of Otalgia of Problem Active left ear left ear Dementia in Dementia in Problem Active other other diseases diseases classified classified elsewhere elsewhere without without behavioral behavioral disturbance disturbance Impacted Impacted Problem Active cerumen of cerumen of left ear left ear Alzheimer'' Alzheimer'' Problem Active s disease, s disease, unspecified unspecified 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dysfunction dysfunction , , unspecified unspecified erectile erectile dysfunction dysfunction type type Hypoglycemi Hypoglycemi Problem Active a a Simple Simple Problem Active chronic chronic bronchitis bronchitis Nicotine Nicotine Problem Active dependence, dependence, cigarettes, cigarettes, uncomplicat uncomplicat ed ed Primary Primary Problem Active osteoarthri osteoarthri tis of both tis of both knees knees Allergies, Adverse Reactions, Alerts Allergy Allergy Status Severity Reaction(s) Onset Inactive Treating Graham knowles Name Type Date Date Clinician No Known DA Active U 2020-01 Allergies 10 00:00:0 0 Medications Ordered Filled Start Stop Current Ordering Indication Dosage Frequency Signature Comments Components Medication Medication Date Date Medication? Clinician (SIG) Name Name Cyclobenzap Cyclobenzap 2018-10 2019- No Na Gomes 1 tab let rine HCl rine HCl 11-06 as needed 00:00: 00:00 00 :00 Albuterol Albuterol 2018-10 Yes Na Gomes 2 puffs Sulfate HFA Sulfate HFA 00:00: 00 Incruse Incruse 2018-10- No Na Gomes 1 puff Ellipta Ellipta 016 04-27 00:00: 00:00 00 :00 Lancets Lancets Yes Na Gomes one Super Thin Super Thin 02-13 00:00: 00 blood blood 2019- No Na Gomes one glucose glucose 02-13 test strip test strip 00:00: 00:00 00 :00 Ezetimibe Ezetimibe 2019-0 Yes Na Gomes 1 tablet 11-15 00:00: 00 Seroquel Seroquel 2017-0 Yes Na Gomes 1 tablet 12-14 00:00: 00 Vitamin B12 Vitamin B12 Yes Na Gomes 1 tabl et Vitamin B12 Vitamin B12 Yes Na Gomes 1 tabl et Trazodone Trazodone Yes Na Gomes 1 tablet HCl HCl at bedtime Zetia Zetia Yes Na Gomes 1 tablet Fish Oil Fish Oil Yes Na Gomes 1 capsule Ascorbic Ascorbic Yes Na Gomes 1 tablet Acid Acid Lithobid Lithobid Yes Na Gomes 1 tablet Co-Enzyme Co-Enzyme Yes Na Gomes 2 capsule Q-10 Q-10 with a meal Melatonin Melatonin Yes Na Gomes 1 tablet at bedtime as needed with food Cyanocobala Cyanocobala Yes Na Gomes as min min directed Super Super Yes Na Gomes as B-Complex B-Complex directed D3 Maximum D3 Maximum Yes Na Gomes 1 capsul e Strength Strength Thiamine Thiamine Yes Na Gomes 2 capsules Memantine Memantine Yes Na Gomes 1 tablet HCl HCl Atorvastati Atorvastati Yes Na Gomes 1 tabl et n Calcium n Calcium Atorvastati Atorvastati Yes Na Gomes 1 tabl et n Calcium n Calcium Diclofenac Diclofenac Yes Na Gomes 1 tablet Sodium Sodium with food or milk Ranitidine Ranitidine Yes Na Gomes TAKE 1 HCl HCl TABLET BY MOUTH TWICE A DAY Cipro Cipro 2019- No Na Gomes 1 tablet 09-13 00:00 :00 Metronidazo Metronidazo 2019- No Na Gomes 1 tabl et le le 09-13 00:00 :00 Encounters Start End Encounter Admission Attending Care Care Encounter Date/Time Date/Time Type Type Clinicians Facility Department ID 2020-01-01 2020-01-01 [facility] [id number] 16:10:00 16:10:00 [facility] 2019-12-26 2019-12-26 [facility] [id number] 08:44:00 08:44:00 [facility] 2019-12-05 2019-12-05 [facility] [id number] 15:07:00 15:07:00 [facility] 2019-09-24 2019-09-24 [facility] [id number] 09:27:00 09:27:00 [facility] 2019-09-06 2019-09-06 [facility] [id number] 12:00:00 12:00:00 [facility] 2019-08-18 2019-08-18 [facility] [id number] 17:55:00 17:55:00 [facility] 2019-08-012019-08-01 [facility] [id number] 09:00:00 09:00:00 [facility] 2019-06-07 2019-06-07 [facility] [id number] 11:20:00 11:20:00 [facility] 2019-01-04 2019-01-04 [facility] [id number] 14:04:00 14:04:00 [facility] 2018-11-23 2018-11-23 [facility] [id number] 09:15:00 09:15:00 [facility] 2018-11-20 2018-11-20 [facility] [id number] 10:13:00 10:13:00 [facility] 2018-11-15 2018-11-15 [facility] [id number] 15:15:00 15:15:00 [facility] 2018-10-09 2018-10-09 [facility] [id number] 10:19:00 10:19:00 [facility] 2018-06-02 2018-06-02 [facility] [id number] 16:46:00 16:46:00 [facility] 2018-05-11 2018-05-11 [facility] [id number] 09:45:00 09:45:00 [facility] Results Test Description Test Time Test Comments Text Results Atomic Results Result Comments BASIC METABOLIC PANEL 2020-02-01 06:50:00 Test Item Value Reference Range Comments SODIUM (test code = NA) 140 MMOL/L 136-143 POTASSIUM (test code = K) 3.7 MMOL/L 3.5-5.1 CHLORIDE (test code = CL) 109 MMOL/L 98-107 CARBON DIOXIDE (test code = 20 mmol/L 24-31 CO2) GLUCOSE (test code = GLU) 82 mg/dL 70-104 BLOOD UREA NITROGEN (test 12.3 MG/DL 7.0-21.0 code = BUN) GLOMERULAR FILTRATION RATE >=60 max estimate >60 The estimated glomerular (test code = GFR) filtration rat e is computed usingpatient rac e, age (>18), sex, and serum c reatinine. If anyof the needed data elements are missing the Laboratory cannot compute a n estimation of the glomerula r filtration rate. CREATININE (test code = 0.6 mg/dL 0.8-1.5 CREAT) CALCIUM (test code = CA) 8.8 mg/dL 8.8-10.2 CBC W/AUTO [id number] 06:40:00 Test Item Value Reference Range Comments WHITE BLOOD CELL (test code = WBC) 10.3 x10 3/uL 4.8-10.8 RED BLOOD CELL (test code = RBC) 2.84 x10 6/uL 4.70-6.10 HEMOGLOBIN (test code = HGB) 8.4 g/dL 14.5-20 HEMATOCRIT (test code = HCT) 26.1 % 42.0-52.0 MEAN CELL VOLUME (test code = MCV) 91.9 fL 80.0-94.0 MEAN CELL HGB (test code = MCH) 29.6 pg 27-31 MEAN CELL HGB CONCENTRATION (test code = MCHC) 32.2 G/DL 3 3-36.5 RED CELL DISTRIBUTION WIDTH (test code = RDW) 15.1 % 12 .9-16.9 PLATELET COUNT (test code = PLT) 182 150-440 MEAN PLATELET VOLUME (test code = MPV) 11.1 fL 8.9-12.4 NEUTROPHIL % (test code = NT%) 64.2 % 42.2-75.2 LYMPHOCYTE % (test code = LY%) 13.2 % 20.5-51.1 MONOCYTE % (test code = MO%) 12.2 % 1.7-9.3 EOSINOPHIL % (test code = EO%) 9.2 % 0.0-7.0 BASOPHIL % (test code = BA%) 0.7 % 0-2.5 NEUTROPHIL # (test code = NT#) 6.64 x10 3/uL 1.80-7.70 LYMPHOCYTE # (test code = LY#) 1.37 x10 3/uL 1.00-4.80 MONOCYTE # (test code = MO#) 1.26 x10 3/uL 0.00-0.80 EOSINOPHIL # (test code = EO#) 0.95 x10 3/uL 0.00-0.45 BASOPHIL # (test code = BA#) 0.07 x10 3/uL 0.0-0.20 VANCOMYCIN [id number] 13:34:00 Test Item Value Reference Range Comments VANCOMYCIN TROUGH (test code = VANCT) 14.4 mcg/ML 10.0-20.0 Spec Comments: RN PLS DRAW VANCO 30MIN BEFORE DOSE DUE ON 01/30 BASIC METABOLIC [id number] 04:08:00 Test Item Value Reference Range Comments SODIUM (test code = NA) 138 MMOL/L 136-143 POTASSIUM (test code = K) 3.7 MMOL/L 3.5-5.1 CHLORIDE (test code = CL) 103 MMOL/L 98-107 CARBON DIOXIDE (test code 24 mmol/L 24-31 = CO2) GLUCOSE (test code = GLU) 90 mg/dL 70-104 BLOOD UREA NITROGEN (test 14.5 MG/DL 7.0-21.0 code = BUN) GLOMERULAR FILTRATION >=60 max estimate >60 The adiel mated glomerular RATE (test code = GFR) filtratio n rate is computed usingpa tient race, age (>18), sex, and serum creatinine . If anyof the needed data elements are missing the Laboratory cannot compute a n estimation of th e glomerular filtr ation rate. CREATININE (test code = 0.7 mg/dL 0.8-1.5 CREAT) CALCIUM (test code = CA) 8.8 mg/dL 8.8-10.2 [id number] 04:08:00 Test Item Value Reference Range Comments MAGNESIUM (test code = MAG) 1.7 mg/dL 1.4-2.6 CBC W/AUTO [id number] 03:56:00 Test Item Value Reference Range Comments WHITE BLOOD CELL (test code = WBC) 14.8 x10 3/uL 4.8-10.8 RED BLOOD CELL (test code = RBC) 3.26 x10 6/uL 4.70-6.10 HEMOGLOBIN (test code = HGB) 9.6 g/dL 14.5-20 HEMATOCRIT (test code = HCT) 30.2 % 42.0-52.0 MEAN CELL VOLUME (test code = MCV) 92.6 fL 80.0-94.0 MEAN CELL HGB (test code = MCH) 29.4 pg 27-31 MEAN CELL HGB CONCENTRATION (test code = 31.8 G/DL 33-36.5 MCHC) RED CELL DISTRIBUTION WIDTH (test code = RDW) 15.8 % 12 .9-16.9 PLATELET COUNT (test code = PLT) 203 150-440 MEAN PLATELET VOLUME (test code = MPV) 11.0 fL 8.9-12.4 NEUTROPHIL % (test code = NT%) 76.3 % 42.2-75.2 LYMPHOCYTE % (test code = LY%) 9.8 % 20.5-51.1 MONOCYTE % (test code = MO%) 9.4 % 1.7-9.3 EOSINOPHIL % (test code = EO%) 3.5 % 0.0-7.0 BASOPHIL % (test code = BA%) 0.6 % 0-2.5 NEUTROPHIL # (test code = NT#) 11.31 x10 3/uL 1.80-7.70 LYMPHOCYTE # (test code = LY#) 1.46 x10 3/uL 1.00-4.80 MONOCYTE # (test code = MO#) 1.39 x10 3/uL 0.00-0.80 EOSINOPHIL # (test code = EO#) 0.52 x10 3/uL 0.00-0.45 BASOPHIL # (test code = BA#) 0.09 x10 3/uL 0.0-0.20 BASIC METABOLIC [id number] 21:22:00 Test Item Value Reference Range Comments SODIUM (test code = NA) 135 MMOL/L 136-143 POTASSIUM (test code = K) 3.8 MMOL/L 3.5-5.1 CHLORIDE (test code = CL) 99 MMOL/L 98-107 CARBON DIOXIDE (test code 23 mmol/L 24-31 = CO2) GLUCOSE (test code = GLU) 103 mg/dL 70-104 BLOOD UREA NITROGEN (test 14.3 MG/DL 7.0-21.0 code = BUN) GLOMERULAR FILTRATION >=60 max estimate >60 The adiel mated glomerular RATE (test code = GFR) filtratio n rate is computed usingpa tient race, age (>18), sex, and serum creatinine . If anyof the needed data elements are missing the Laboratory cannot compute a n estimation of th e glomerular filtr ation rate. CREATININE (test code = 0.7 mg/dL 0.8-1.5 CREAT) CALCIUM (test code = CA) 9.1 mg/dL 8.8-10.2 RENAL FUNCTION [id number] 21:22:00 Test Item Value Reference Range Comments ALBUMIN (test code = ALB) 3.4 G/DL 3.5-5.0 PHOSPHOROUS (test code = PHOS) 2.0 mg/dL 2.7-4.5 LIVER FUNCTION [id number] 21:22:00 Test Item Value Reference Range Comments TOTAL PROTEIN (test code = PROT) 5.6 g/dL 6.3-8.3 BILIRUBIN TOTAL (test code = BILT) 0.5 mg/dL 0.2-1.0 BILIRUBIN DIRECT (test code = BILD) <0.2 mg/dL 0.0-0.2 SGOT/AST (test code = AST) 9 IU/L 10-34 SGPT/ALT (test code = ALT) 7 U/L 10-44 ALKALINE PHOSPHATASE (test code = ALKP) 63 U/L 45-120 LACTIC [id number] 21:18:00 Test Item Value Reference Range Comments LACTIC ACID (test code = LACT) 9.4 mg/dL 4.5-18.0 PROTHROMBIN [id number] 21:12:00 Test Item Value Reference Range Comments PROTHROMBIN TIME PATIENT 10.8 SECONDS 10.3-12.9 (test code = PTP) INTERNATIONAL NORMAL 0.96 INR UNIT 0.9-1.11 The INR is useful only for RATIO (test code = INR) monitori ng anticoagulant therapy.It may b e unreliable in the initial p hase of antigoagulationa nd in unstable patients. Indica tion for Anticoagulation Recommended INR 1. Prevention of venous thombo embolism 2.0-3.0in hi gh-risk patients; treatm ent of venousthrombosis and pulmonary embolism aftera course of heparin; prevent ion of systemicembolism in a variety of conditions, i ncluding atrial fibrillat ion and prothetic tissue heart valves, 2. Prosthetic me chanical heart valves; 2.5-3.5recurrent systemic embolism. THROMBOPLASTIN TIME [id number] 21:12:00 Test Item Value Reference Range Comments THROMBOPLASTIN TIME PARTIAL 28.6 SECONDS 26.0-35.9 INTE RPRETATIVE (test code = PTT) DATA:Therapeut ic range: Unfractionated h eparin:47 - 71 seconds Argat roban:1.5 to 3 times the base line PTT PROTHROMBIN [id number] 21:09:00 Test Item Value Reference Range Comments PROTHROMBIN TIME PATIENT 10.8 SECONDS 10.3-12.9 (test code = PTP) INTERNATIONAL NORMAL 0.96 INR UNIT 0.9-1.11 The INR is useful only for RATIO (test code = INR) monitori ng anticoagulant therapy.It may b e unreliable in the initial p hase of antigoagulationa nd in unstable patients. Indica tion for Anticoagulation Recommended INR 1. Prevention of venous thombo embolism 2.0-3.0in hi gh-risk patients; treatm ent of venousthrombosis and pulmonary embolism aftera course of heparin; prevent ion of systemicembolism in a variety of conditions, i ncluding atrial fibrillat ion and prothetic tissue heart valves, 2. Prosthetic me chanical heart valves; 2.5-3.5recurrent systemic embolism. THROMBOPLASTIN TIME [id number] 21:09:00 Test Item Value Reference Range Comments THROMBOPLASTIN TIME PARTIAL (test code = PTT) SECONDS 26 .0-35.9 CBC W/AUTO [id number] 21:08:00 Test Item Value Reference Range Comments WHITE BLOOD CELL (test code = WBC) 16.4 x10 3/uL 4.8-10.8 RED BLOOD CELL (test code = RBC) 3.41 x10 6/uL 4.70-6.10 HEMOGLOBIN (test code = HGB) 10.1 g/dL 14.5-20 HEMATOCRIT (test code = HCT) 31.2 % 42.0-52.0 MEAN CELL VOLUME (test code = MCV) 91.5 fL 80.0-94.0 MEAN CELL HGB (test code = MCH) 29.6 pg 27-31 MEAN CELL HGB CONCENTRATION (test code = 32.4 G/DL 33-36.5 MCHC) RED CELL DISTRIBUTION WIDTH (test code = RDW) 15.8 % 12 .9-16.9 PLATELET COUNT (test code = PLT) 217 150-440 MEAN PLATELET VOLUME (test code = MPV) 11.5 fL 8.9-12.4 NEUTROPHIL % (test code = NT%) 80.5 % 42.2-75.2 LYMPHOCYTE % (test code = LY%) 7.3 % 20.5-51.1 MONOCYTE % (test code = MO%) 9.2 % 1.7-9.3 EOSINOPHIL % (test code = EO%) 2.2 % 0.0-7.0 BASOPHIL % (test code = BA%) 0.3 % 0-2.5 NEUTROPHIL # (test code = NT#) 13.19 x10 3/uL 1.80-7.70 LYMPHOCYTE # (test code = LY#) 1.19 x10 3/uL 1.00-4.80 MONOCYTE # (test code = MO#) 1.51 x10 3/uL 0.00-0.80 EOSINOPHIL # (test code = EO#) 0.36 x10 3/uL 0.00-0.45 BASOPHIL # (test code = BA#) 0.05 x10 3/uL 0.0-0.20 CBC W/MANUAL [id number] 05:21:00 Test Item Value Reference Range Comments WHITE BLOOD CELL (test code = WBC) 18.9 x10 3/uL 4.8-10.8 RED BLOOD CELL (test code = RBC) 4.07 x10 6/uL 4.70-6.10 HEMOGLOBIN (test code = HGB) 12.1 g/dL 14.5-20 HEMATOCRIT (test code = HCT) 36.8 % 42.0-52.0 MEAN CELL VOLUME (test code = MCV) 90.4 fL 80.0-94.0 MEAN CELL HGB (test code = MCH) 29.7 pg 27-31 MEAN CELL HGB CONCENTRATION (test code = MCHC) 32.9 G/DL 3 3-36.5 RED CELL DISTRIBUTION WIDTH (test code = RDW) 15.8 % 12 .9-16.9 PLATELET COUNT (test code = PLT) 228 150-440 MEAN PLATELET VOLUME (test code = MPV) 10.9 fL 8.9-12.4 TOTAL CELLS COUNTED (test code = TCC) 100 #CELLS SEGMENTED NEUTROPHILS (test code = SEG) 87 % 43-65 LYMPHOCYTE (test code = LYMPH) 5 % 20.5-45.5 MONOCYTE (test code = MON) 8 % 5.5-11.7 PLATELET ESTIMATE (test code = PLTEST) ADEQUATE ADEQUATE PLATELET MORPHOLOGY (test code = PLTMORPH) NORMAL KATELYN L RENAL FUNCTION [id number] 05:20:00 Test Item Value Reference Range Comments SODIUM (test code = NA) 138 MMOL/L 136-143 POTASSIUM (test code = K) 4.5 MMOL/L 3.5-5.1 CHLORIDE (test code = CL) 99 MMOL/L 98-107 CARBON DIOXIDE (test code 25 mmol/L 24-31 = CO2) GLUCOSE (test code = GLU) 129 mg/dL 70-104 BLOOD UREA NITROGEN (test 12.7 MG/DL 7.0-21.0 code = BUN) GLOMERULAR FILTRATION >=60 max estimate >60 The adiel mated glomerular RATE (test code = GFR) filtratio n rate is computed usingpa tient race, age (>18), sex, and serum creatinine . If anyof the needed data elements are missing the Laboratory cannot compute a n estimation of th e glomerular filtr ation rate. CREATININE (test code = 0.8 mg/dL 0.8-1.5 CREAT) ALBUMIN (test code = ALB) 3.6 G/DL 3.5-5.0 CALCIUM (test code = CA) 9.4 mg/dL 8.8-10.2 PHOSPHOROUS (test code = 2.5 mg/dL 2.7-4.5 PHOS) [id number] 05:20:00 Test Item Value Reference Range Comments MAGNESIUM (test code = MAG) 1.8 mg/dL 1.4-2.6 CBC W/MANUAL [id number] 04:48:00 Test Item Value Reference Range Comments WHITE BLOOD CELL (test code = WBC) 18.9 x10 3/uL 4.8-10.8 RED BLOOD CELL (test code = RBC) 4.07 x10 6/uL 4.70-6.10 HEMOGLOBIN (test code = HGB) 12.1 g/dL 14.5-20 HEMATOCRIT (test code = HCT) 36.8 % 42.0-52.0 MEAN CELL VOLUME (test code = MCV) 90.4 fL 80.0-94.0 MEAN CELL HGB (test code = MCH) 29.7 pg 27-31 MEAN CELL HGB CONCENTRATION (test code = MCHC) 32.9 G/DL 3 3-36.5 RED CELL DISTRIBUTION WIDTH (test code = RDW) 15.8 % 12 .9-16.9 PLATELET COUNT (test code = PLT) 228 150-440 MEAN PLATELET VOLUME (test code = MPV) 10.9 fL 8.9-12.4 TOTAL CELLS COUNTED (test code = TCC) #CELLS SEGMENTED NEUTROPHILS (test code = SEG) % 43-65 LYMPHOCYTE (test code = LYMPH) % 20.5-45.5 CBC W/MANUAL [id number] 04:48:00 Test Item Value Reference Range Comments WHITE BLOOD CELL (test code = WBC) 18.9 x10 3/uL 4.8-10.8 RED BLOOD CELL (test code = RBC) 4.07 x10 6/uL 4.70-6.10 HEMOGLOBIN (test code = HGB) 12.1 g/dL 14.5-20 HEMATOCRIT (test code = HCT) 36.8 % 42.0-52.0 MEAN CELL VOLUME (test code = MCV) 90.4 fL 80.0-94.0 MEAN CELL HGB (test code = MCH) 29.7 pg 27-31 MEAN CELL HGB CONCENTRATION (test code = MCHC) 32.9 G/DL 3 3-36.5 RED CELL DISTRIBUTION WIDTH (test code = RDW) 15.8 % 12 .9-16.9 PLATELET COUNT (test code = PLT) 228 150-440 MEAN PLATELET VOLUME (test code = MPV) 10.9 fL 8.9-12.4 TOTAL CELLS COUNTED (test code = TCC) #CELLS SEGMENTED NEUTROPHILS (test code = SEG) % 43-65 LYMPHOCYTE (test code = LYMPH) % 20.5-45.5 SURGICAL [id number] 12:52:00 RUN DATE: 01/29/20 [facility] - LAB PAGE 1 RUN TIME: 1252 Specimen Inquiry RUN USER: INTERFACE PATIENT: OTONIEL HENDERSON LOC: P.7S POD C U #: [id number] AGE/SX: 59/M ROOM: [facility] RE01/25/20REG DR: Cristopher Doty MD : 64 BED: 1 DIS: STATUS: ADM IN TLOC: SPEC #: [id number] RECD: 01/28/20 STATUS: FAINA REFabiana #: [id number] SIMON: 01/28/[address]: Cristopher Doty MD ENTERED: 01/28/20 SP TYPE: SURG OTHR DR: Roxanna Primary or Family Physician Mio Gilbert MD No,DocORDERED: PATHGM3, PATHGM5/2, PATH SPEC, H E STAIN HISTOLOGY: TISSUE ID BLK PCS PARISH LEV / PROCEDURE DISPOSITION ____ ___ ___ ___ ___ COLON SEG NTUMR A 18 1 TISSUES: A. COLON SEGMENTAL [id number] - Sigmoid Colon Proximal Rectum Anastomatic Donuts, Small Bowel wit CLINICAL HISTORY Diverticulitis FINAL DIAGNOSIS SIGMOID COLON, PROXIMAL RECTUM, SMALL BOWEL, AND ANASTOMOTIC "DONUTS", LOW ANTERIOR RESECTION AND SEGMENTAL RESECTION OF SMALL BOWEL: Sigmoid colon and proximal rectum: - Diverticulitis with microabscesses. - Acute serositis. - Three benign lymph nodes. - Resection margins, viable. Small bowel: - Acute and chronic inflammation, microabscesses, and changes compatible with fistula tract formation. - Acute serositis with microabscesses. - Resection margins, viable with acute inflammation and focal mucosal ulcer. Anastomotic "donuts": - Viable colonic mucosa with mild acute inflammation. - Acute serositis. - One benign lymph node. GROSS DESCRIPTION The specimen is received in a formalin-filled container labeled with at least two patient identifiers and "sigmoid colon, proximal rectum anastomotic donuts, small bowel with fistula". The specimen consists of a segment of large intestine (17 cm in length, 3.5-4 cm in diameter), a segment of small intestine (19 cm in length, 2 cm in diameter), and two ring- shaped (donuts) segments of intestine (2 x 1.7 x 1.5 cm, CONTINUED ON NEXT PAGE RUN DATE: 01/29/20 [facility] - LAB PAGE 2 RUN TIME: 1252 Specimen Inquiry RUN USER: INTERFACE SPEC #: [id number] PATIENT: OTONIEL HENDERSON #[id number] (Continued) GROSS DESCRIPTION (Continued) 2.4 x 2 x 1.5 cm). The middle portion of the large intestine is rigid and thickened, reducing the luminal circumference from 5.5 cm to 3.5 cm circumference. At this site, there is an irregular area of serosa l and soft tissue defects, measuring 4 x 4 cm. A small punctate lesion that communicates to the lumen is present. Sectioning through this region demonstrates increased fibroses in the pericolonic soft tissues associated with possible diverticula. Adjacent to the area of bowel thickening there is an area of mucosal erythema and friability, measuring 1.1 x 0.9 cm. The remainder of the largeintestine shows multiple diverticula. The segment of small intestine is looped and joined at bothends by a line of surgical fabby. There is an area of serosal defect and irregularity measuring1.5 x 1 cm. A punctate full thickness defect is present within this area that opens into the lumen of the small bowel. The lumen contains green-yellow fecal fluid. No mucosal lesions or masses areseen. The ring-shaped "donuts", one with metal surgical fabby and the other with blue sutures,are grossly unremarkable. SECTION CODE: A1: Large intestine margin, en face A2-A3: Opposite large intestine margin, en face A4: Section of large intestine through punctate full thickness defect A5-A6: Section of large intestine with wall thickening and fibroses A7: Section of large intestine with mucosal erythema A8: Section of large intestine with diverticula A9: Small intestine margin, en face A10: Opposite small intestine margin, en face A11: Section of small intestine through full thickness defect A12: Section of small intestine with serosal defect A13: Section of small intestine adjacent to serosal defect A14-A15: Entire ring-shaped donut #1 (with metal staple) A16-A18: Ring-shaped donut #2 (with blue sutures) /th MICROSCOPIC DESCRIPTION Microscopic examination performed. Signed SIGNATURE ON FILE Nita Ashford 01/29/20 1252 END OF REPORT BASIC METABOLIC [id number] 08:29:00 Test Item Value Reference Range Comments SODIUM (test code = NA) 139 MMOL/L 136-143 POTASSIUM (test code = K) 4.0 MMOL/L 3.5-5.1 CHLORIDE (test code = CL) 100 MMOL/L 98-107 CARBON DIOXIDE (test code 23 mmol/L 24-31 = CO2) GLUCOSE (test code = GLU) 138 mg/dL 70-104 BLOOD UREA NITROGEN (test 7.5 MG/DL 7.0-21.0 code = BUN) GLOMERULAR FILTRATION >=60 max estimate >60 The adiel mated glomerular RATE (test code = GFR) filtratio n rate is computed usingpa tient race, age (>18), sex, and serum creatinine . If anyof the needed data elements are missing the Laboratory cannot compute a n estimation of th e glomerular filtr ation rate. CREATININE (test code = 0.8 mg/dL 0.8-1.5 CREAT) CALCIUM (test code = CA) 9.2 mg/dL 8.8-10.2 [id number] 08:29:00 Test Item Value Reference Range Comments MAGNESIUM (test code = MAG) 1.3 mg/dL 1.4-2.6 CBC W/AUTO [id number] 08:04:00 Test Item Value Reference Range Comments WHITE BLOOD CELL (test code = WBC) 20.3 x10 3/uL 4.8-10.8 RED BLOOD CELL (test code = RBC) 4.65 x10 6/uL 4.70-6.10 HEMOGLOBIN (test code = HGB) 13.6 g/dL 14.5-20 HEMATOCRIT (test code = HCT) 42.3 % 42.0-52.0 MEAN CELL VOLUME (test code = MCV) 91.0 fL 80.0-94.0 MEAN CELL HGB (test code = MCH) 29.2 pg 27-31 MEAN CELL HGB CONCENTRATION (test code = 32.2 G/DL 33-36.5 MCHC) RED CELL DISTRIBUTION WIDTH (test code = RDW) 15.6 % 12 .9-16.9 PLATELET COUNT (test code = PLT) 248 150-440 MEAN PLATELET VOLUME (test code = MPV) 10.6 fL 8.9-12.4 NEUTROPHIL % (test code = NT%) 88.7 % 42.2-75.2 LYMPHOCYTE % (test code = LY%) 3.9 % 20.5-51.1 MONOCYTE % (test code = MO%) 6.8 % 1.7-9.3 EOSINOPHIL % (test code = EO%) 0.0 % 0.0-7.0 BASOPHIL % (test code = BA%) 0.2 % 0-2.5 NEUTROPHIL # (test code = NT#) 17.98 x10 3/uL 1.80-7.70 LYMPHOCYTE # (test code = LY#) 0.79 x10 3/uL 1.00-4.80 MONOCYTE # (test code = MO#) 1.38 x10 3/uL 0.00-0.80 EOSINOPHIL # (test code = EO#) 0.01 x10 3/uL 0.00-0.45 BASOPHIL # (test code = BA#) 0.04 x10 3/uL 0.0-0.20 Novel Coronavirus 2019 [id number] 14:20:00 Test Item Value Reference Range Comments Novel Coronavirus 2018 NEGATIVE Positive results are indicative of nCoV (test code = COVID19) the p resence ofCZCU-LhN-9 RNA, clinical correla tion with patient historyand other diagnostic information is n ecessary to determinepatient infection status. Positive results do not rule outbacterial inf ection or co-infection wit h other viruses. Negative results do not preclude SARS-CoV-2 infec tion andshould not be used as the s ole basis for patient manageme ntdecisions. Negative results must be combined with otherclinic al observations, patient history, and epidemiologicali nformation. Detection of YENNY S-CoV-2 RNA may be affected bysampl e collection methods, storage conditions, and/or stageof i nfection. Viral RNA mutations, v accinations, antiviraltherape utics, antibiotics, netta motherapeutic orimmunosuppress ant drugs have not been evaluated f or effectson detection. Resul ts are for the identification o f SARS-CoV-2 RNA usingthe [employer] System under the FDA Emergenc y UseAuthorization . The testing is performed by per alan in the procedures f or the [employer] M2000 moleculard iagnostic SARS-CoV-2 assay in vitro. NEGATIVE Value reported toFirst Name: SAVITA Last Name:[facility] RESULTS READ BACK AND VERIFIEDbyP.LAB.RS, on 01/26/20, @ 1934.- XR ABDOMEN [id number] 14:18:00Patient Name: OTONIEL HENDERSON Unit No: [id number] EXAMS: CPT CODE: [id number] XR ABDOMEN 1V [id number] Abdomen one view supine 01/28/2020 CLINICAL INDICATION: Follow up NGT placement COMPARISON: CT abdomen and pelvis 01/26/2020 LOCATION: W1 IMPRESSION: The side port of an enteric tube projects over the distal esophagus and should be advanced. There is no radiographic evidence for bowel obstruction. There are postsurgical changes in the right lower quadrant. A drainage catheter projects over the left hemiabdomen and pelvis. The lung bases are well aerated. There are no acute-appearing skeletal abnormalities. at 1418 Reported and signed by: BESSIE HERRERA M.D. CC: José Antonio Velez MD; Cristopher Doty MD Technologist: Jordan Islas Time: DAP (Gy m2): Air Kerma (mGy): Trscr Dt/Tm: 01/28/2020 (1418) by:[email or web address] Printed Date/Time: 01/28/2020 (1421) Name: OTONIEL HENDERSON [facility] Phys: José Antonio Zamora MD [address] : 1960 Age: 59 Sex: [place] [address] Loc: P.0733 1 Exam Date: 01/28/2020 Status: ADM IN PH: FAX: PAGE 1 Signed ReportCOMPREHENSIVE METABOLIC [id number] 07:39:00 Test Item Value Reference Range Comments SODIUM (test code = NA) 136 MMOL/L 136-143 POTASSIUM (test code = K) 4.4 MMOL/L 3.5-5.1 CHLORIDE (test code = CL) 102 MMOL/L 98-107 CARBON DIOXIDE (test code 23 mmol/L 24-31 = CO2) GLUCOSE (test code = GLU) 94 mg/dL 70-104 BLOOD UREA NITROGEN (test 6.5 MG/DL 7.0-21.0 code = BUN) GLOMERULAR FILTRATION >=60 max estimate >60 The adiel mated glomerular RATE (test code = GFR) filtratio n rate is computed usingpa tient race, age (>18), sex, and serum creatinine . If anyof the needed data elements are missing the Laboratory cannot compute a n estimation of th e glomerular filtr ation rate. CREATININE (test code = 0.7 mg/dL 0.8-1.5 CREAT) TOTAL PROTEIN (test code 5.8 g/dL 6.3-8.3 = PROT) ALBUMIN (test code = ALB) 3.7 G/DL 3.5-5.0 CALCIUM (test code = CA) 9.7 mg/dL 8.8-10.2 BILIRUBIN TOTAL (test 0.4 mg/dL 0.2-1.0 code = BILT) SGOT/AST (test code = 14 IU/L 10-34 AST) SGPT/ALT (test code = 10 U/L 10-44 ALT) ALKALINE PHOSPHATASE 77 U/L 45-120 (test code = ALKP) [id number] 07:39:00 Test Item Value Reference Range Comments MAGNESIUM (test code = MAG) 1.4 mg/dL 1.4-2.6 CBC W/AUTO [id number] 07:12:00 Test Item Value Reference Range Comments WHITE BLOOD CELL (test code = WBC) 12.7 x10 3/uL 4.8-10.8 RED BLOOD CELL (test code = RBC) 4.52 x10 6/uL 4.70-6.10 HEMOGLOBIN (test code = HGB) 13.3 g/dL 14.5-20 HEMATOCRIT (test code = HCT) 40.4 % 42.0-52.0 MEAN CELL VOLUME (test code = MCV) 89.4 fL 80.0-94.0 MEAN CELL HGB (test code = MCH) 29.4 pg 27-31 MEAN CELL HGB CONCENTRATION (test code = MCHC) 32.9 G/DL 3 3-36.5 RED CELL DISTRIBUTION WIDTH (test code = RDW) 15.9 % 12 .9-16.9 PLATELET COUNT (test code = PLT) 249 150-440 MEAN PLATELET VOLUME (test code = MPV) 10.8 fL 8.9-12.4 NEUTROPHIL % (test code = NT%) 78.0 % 42.2-75.2 LYMPHOCYTE % (test code = LY%) 9.4 % 20.5-51.1 MONOCYTE % (test code = MO%) 7.5 % 1.7-9.3 EOSINOPHIL % (test code = EO%) 4.1 % 0.0-7.0 BASOPHIL % (test code = BA%) 0.8 % 0-2.5 NEUTROPHIL # (test code = NT#) 9.94 x10 3/uL 1.80-7.70 LYMPHOCYTE # (test code = LY#) 1.20 x10 3/uL 1.00-4.80 MONOCYTE # (test code = MO#) 0.95 x10 3/uL 0.00-0.80 EOSINOPHIL # (test code = EO#) 0.52 x10 3/uL 0.00-0.45 BASOPHIL # (test code = BA#) 0.10 x10 3/uL 0.0-0.20 [id number] 15:08:00 Test Item Value Reference Range Comments LITHIUM (test code = 0.5 mmol/L 0.6-1.2 LITH) Detection Limit = 0.1 <0.1 indicates None DetectedPerforme d At: [facility] [address] [place], [place] [id number] So MD Ph:[phone] [id number] 15:08:00 Test Item Value Reference Range Comments LITHIUM (test code = 0.5 mmol/L 0.6-1.2 LITH) Detection Limit = 0.1 <0.1 indicates None DetectedPerforme d At: [facility] [address] [place], [place] [id number] So MD Ph:[phone] Novel Coronavirus 2018 [id number] 07:11:00 Test Item Value Reference Range Comments Novel Coronavirus 2019 nCoV (test code = COVID19) NEGATIVE NEGATIVE Value reported toFirst Name: SAVITA Last Name:[facility] RESULTS READ BACK AND VERIFIEDbyP.LAB.RS, on 01/26/20, @ 1934.COMPREHENSIVE METABOLIC PANEL 2020-01-27 04:39:00 Test Item Value Reference Range Comments SODIUM (test code = NA) 137 MMOL/L 136-143 POTASSIUM (test code = K) 4.2 MMOL/L 3.5-5.1 CHLORIDE (test code = CL) 103 MMOL/L 98-107 CARBON DIOXIDE (test code 25 mmol/L 24-31 = CO2) GLUCOSE (test code = GLU) 87 mg/dL 70-104 BLOOD UREA NITROGEN (test 5.5 MG/DL 7.0-21.0 code = BUN) GLOMERULAR FILTRATION >=60 max estimate >60 The adiel mated glomerular RATE (test code = GFR) filtratio n rate is computed usingpa tient race, age (>18), sex, and serum creatinine . If anyof the needed data elements are missing the Laboratory cannot compute a n estimation of th e glomerular filtr ation rate. CREATININE (test code = 0.7 mg/dL 0.8-1.5 CREAT) TOTAL PROTEIN (test code 6.4 g/dL 6.3-8.3 = PROT) ALBUMIN (test code = ALB) 3.7 G/DL 3.5-5.0 CALCIUM (test code = CA) 9.4 mg/dL 8.8-10.2 BILIRUBIN TOTAL (test 0.3 mg/dL 0.2-1.0 code = BILT) SGOT/AST (test code = 12 IU/L 10-34 AST) SGPT/ALT (test code = 9 U/L 10-44 ALT) ALKALINE PHOSPHATASE 76 U/L 45-120 (test code = ALKP) CBC W/AUTO [id number] 04:21:00 Test Item Value Reference Range Comments WHITE BLOOD CELL (test code = WBC) 9.1 x10 3/uL 4.8-10.8 RED BLOOD CELL (test code = RBC) 4.40 x10 6/uL 4.70-6.10 HEMOGLOBIN (test code = HGB) 13.0 g/dL 14.5-20 HEMATOCRIT (test code = HCT) 40.0 % 42.0-52.0 MEAN CELL VOLUME (test code = MCV) 90.9 fL 80.0-94.0 MEAN CELL HGB (test code = MCH) 29.5 pg 27-31 MEAN CELL HGB CONCENTRATION (test code = MCHC) 32.5 G/DL 3 3-36.5 RED CELL DISTRIBUTION WIDTH (test code = RDW) 16.5 % 12 .9-16.9 PLATELET COUNT (test code = PLT) 240 150-440 MEAN PLATELET VOLUME (test code = MPV) 10.7 fL 8.9-12.4 NEUTROPHIL % (test code = NT%) 63.9 % 42.2-75.2 LYMPHOCYTE % (test code = LY%) 17.4 % 20.5-51.1 MONOCYTE % (test code = MO%) 8.9 % 1.7-9.3 EOSINOPHIL % (test code = EO%) 8.3 % 0.0-7.0 BASOPHIL % (test code = BA%) 1.2 % 0-2.5 NEUTROPHIL # (test code = NT#) 5.84 x10 3/uL 1.80-7.70 LYMPHOCYTE # (test code = LY#) 1.59 x10 3/uL 1.00-4.80 MONOCYTE # (test code = MO#) 0.81 x10 3/uL 0.00-0.80 EOSINOPHIL # (test code = EO#) 0.76 x10 3/uL 0.00-0.45 BASOPHIL # (test code = BA#) 0.11 x10 3/uL 0.0-0.20 - CT ABD PELVIS [id number] 09:58:00Patient Name: OTONIEL HENDERSON Unit No: [id number] EXAMS: CPT CODE: [id number] CT ABD PELVIS W/CONT 56497 CT abdomen and pelvis with IV contrast. Indication: Abdominal pain Location: A1 Comparison: None Technique: CT images of the abdomen and pelvis were obtained from the diaphragm to the pubic symphysis after the administration of intravenous contrast. Coronal and sagittal reformats are provided. One or more of the following dose reduction techniques were used: Automated exposure control, adjustment of the mA and/or kV according to patient size, and/or utilization of iterative reconstruction technique. Findings: Lungs bases: There is atelectasis/scarringat the lung bases. There is a left lower lobe calcified granuloma. Liver: There are 2 calcified granulomas. Gallbladder: There are no radiodense gallstones. There is no significant gallbladder wall thickening or pericholecystic stranding. Pancreas: Unremarkable. Spleen: There are 2 calcified granulomas. Adrenal glands: There is no adrenal mass. Kidneys: There are bilateral renal calculi measuring up to 5 mm on the left. There is no hydronephrosis or hydroureter. There is a septated 3.2 cm right renal cyst. Bowel: There is no bowel obstruction. There is sigmoid colon wall thickening with mild pericolonic stranding and fluid. There are diffuse colonic diverticula. The appendix is within normal limits. Peritoneum: There is no ascites or pneumoperitoneum. Pelvis: The urinary bladder appears smooth-walled. The prostate is not enlarged. Vascular: There is no abdominal aortic aneurysm. Thereare moderate arterial atherosclerotic calcifications. Skeletal: There is no acute fracture. There is mild retrolisthesis of L4 over L5. Multilevel intervertebral cisterns advanced atL5-S1 with endplate sclerosis and vacuum disc phenomenon. Impression: Sigmoid colon wall thickening with pericolonic inflammation, given that there are diffuse, diverticula, this is suggestive of diverticulitis. A sigmoidoscopy is recommended when feasible. No drainable fluid collection or pneumoperitoneum. Bilateral nephrolithiasis without evidence for obstructive uropathy. Evidence of prior granulomatous disease. Bosniak type II septated right renal cyst. Additional findings as above. [facility] - Norbert William MD [address] : 1960 Age: 59 Sex: [place] [address] Loc: P.0723 1 Exam Date: 01/26/2020 Status: ADM IN PH: FAX: PAGE 1 Signed Report (CONTINUED) Patient Name: OTONIEL HENDERSON Unit No: [id number] EXAMS: CPT CODE: [id number] CT ABD PELVIS W/CONT 65472 <Continued> at 0958 Reported and signed by: OTONIEL ROSSI M.D. CC: Cristopher Doty MD; Norbert William MD Technologist: ANTONIO Martin(Jeannine)(CT) CTDI: 11.68 DLP: 602 Trscr Dt/Tm: 01/26/2020 (0958) by:[email or web address] Printed Date/Time: 01/26/2020 (1001)Name: [facility] Phys: VARSHA.Kole - Norbert William MD [address] : 1960 Age: 59 Sex: [place] [address] [facility] [id number] Loc: P.0723 1 Exam Date: 01/26/2020 Status: ADM IN PH: FAX: PAGE 2 Signed ReportCOMPREHENSIVE METABOLIC [id number] 05:50:00 Test Item Value Reference Range Comments SODIUM (test code = NA) 137 MMOL/L 136-143 POTASSIUM (test code = K) 4.8 MMOL/L 3.5-5.1 CHLORIDE (test code = CL) 103 MMOL/L 98-107 CARBON DIOXIDE (test code 23 mmol/L 24-31 = CO2) GLUCOSE (test code = GLU) 92 mg/dL 70-104 BLOOD UREA NITROGEN (test 8.6 MG/DL 7.0-21.0 code = BUN) GLOMERULAR FILTRATION >=60 max estimate >60 The adiel mated glomerular RATE (test code = GFR) filtratio n rate is computed usingpa tient race, age (>18), sex, and serum creatinine . If anyof the needed data elements are missing the Laboratory cannot compute a n estimation of th e glomerular filtr ation rate. CREATININE (test code = 0.8 mg/dL 0.8-1.5 CREAT) TOTAL PROTEIN (test code 5.5 g/dL 6.3-8.3 = PROT) ALBUMIN (test code = ALB) 3.3 G/DL 3.5-5.0 CALCIUM (test code = CA) 8.8 mg/dL 8.8-10.2 BILIRUBIN TOTAL (test 0.2 mg/dL 0.2-1.0 code = BILT) SGOT/AST (test code = 12 IU/L 10-34 AST) SGPT/ALT (test code = 7 U/L 10-44 ALT) ALKALINE PHOSPHATASE 74 U/L 45-120 (test code = ALKP) CBC W/AUTO [id number] 04:55:00 Test Item Value Reference Range Comments WHITE BLOOD CELL (test code = WBC) 8.1 x10 3/uL 4.8-10.8 RED BLOOD CELL (test code = RBC) 4.26 x10 6/uL 4.70-6.10 HEMOGLOBIN (test code = HGB) 12.7 g/dL 14.5-20 HEMATOCRIT (test code = HCT) 39.3 % 42.0-52.0 MEAN CELL VOLUME (test code = MCV) 92.3 fL 80.0-94.0 MEAN CELL HGB (test code = MCH) 29.8 pg 27-31 MEAN CELL HGB CONCENTRATION (test code = MCHC) 32.3 G/DL 3 3-36.5 RED CELL DISTRIBUTION WIDTH (test code = RDW) 16.7 % 12 .9-16.9 PLATELET COUNT (test code = PLT) 236 150-440 MEAN PLATELET VOLUME (test code = MPV) 10.6 fL 8.9-12.4 NEUTROPHIL % (test code = NT%) 47.4 % 42.2-75.2 LYMPHOCYTE % (test code = LY%) 28.5 % 20.5-51.1 MONOCYTE % (test code = MO%) 10.8 % 1.7-9.3 EOSINOPHIL % (test code = EO%) 11.2 % 0.0-7.0 BASOPHIL % (test code = BA%) 1.9 % 0-2.5 NEUTROPHIL # (test code = NT#) 3.82 x10 3/uL 1.80-7.70 LYMPHOCYTE # (test code = LY#) 2.30 x10 3/uL 1.00-4.80 MONOCYTE # (test code = MO#) 0.87 x10 3/uL 0.00-0.80 EOSINOPHIL # (test code = EO#) 0.90 x10 3/uL 0.00-0.45 BASOPHIL # (test code = BA#) 0.15 x10 3/uL 0.0-0.20 COMPREHENSIVE METABOLIC [id number] 18:44:00 Test Item Value Reference Range Comments SODIUM (test code = NA) 137 MMOL/L 136-143 POTASSIUM (test code = K) 4.2 MMOL/L 3.5-5.1 CHLORIDE (test code = CL) 100 MMOL/L 98-107 CARBON DIOXIDE (test code 24 mmol/L 24-31 = CO2) GLUCOSE (test code = GLU) 116 mg/dL 70-104 BLOOD UREA NITROGEN (test 9.0 MG/DL 7.0-21.0 code = BUN) GLOMERULAR FILTRATION >=60 max estimate >60 The adiel mated glomerular RATE (test code = GFR) filtratio n rate is computed usingpa tient race, age (>18), sex, and serum creatinine . If anyof the needed data elements are missing the Laboratory cannot compute a n estimation of th e glomerular filtr ation rate. CREATININE (test code = 0.9 mg/dL 0.8-1.5 CREAT) TOTAL PROTEIN (test code 6.6 g/dL 6.3-8.3 = PROT) ALBUMIN (test code = ALB) 3.8 G/DL 3.5-5.0 CALCIUM (test code = CA) 9.3 mg/dL 8.8-10.2 BILIRUBIN TOTAL (test 0.2 mg/dL 0.2-1.0 code = BILT) SGOT/AST (test code = 13 IU/L 10-34 AST) SGPT/ALT (test code = 10 U/L 10-44 ALT) ALKALINE PHOSPHATASE 77 U/L 45-120 (test code = ALKP) PROTHROMBIN [id number] 18:32:00 Test Item Value Reference Range Comments PROTHROMBIN TIME PATIENT 10.4 SECONDS 10.3-12.9 (test code = PTP) INTERNATIONAL NORMAL 0.92 INR UNIT 0.9-1.11 The INR is useful only for RATIO (test code = INR) monitori ng anticoagulant therapy.It may b e unreliable in the initial p hase of antigoagulationa nd in unstable patients. Indica tion for Anticoagulation Recommended INR 1. Prevention of venous thombo embolism 2.0-3.0in hi gh-risk patients; treatm ent of venousthrombosis and pulmonary embolism aftera course of heparin; prevent ion of systemicembolism in a variety of conditions, i ncluding atrial fibrillat ion and prothetic tissue heart valves, 2. Prosthetic me chanical heart valves; 2.5-3.5recurrent systemic embolism. CBC W/AUTO [id number] 18:26:00 Test Item Value Reference Range Comments WHITE BLOOD CELL (test code = WBC) 8.5 x10 3/uL 4.8-10.8 RED BLOOD CELL (test code = RBC) 4.23 x10 6/uL 4.70-6.10 HEMOGLOBIN (test code = HGB) 12.6 g/dL 14.5-20 HEMATOCRIT (test code = HCT) 39.0 % 42.0-52.0 MEAN CELL VOLUME (test code = MCV) 92.2 fL 80.0-94.0 MEAN CELL HGB (test code = MCH) 29.8 pg 27-31 MEAN CELL HGB CONCENTRATION (test code = MCHC) 32.3 G/DL 3 3-36.5 RED CELL DISTRIBUTION WIDTH (test code = RDW) 16.7 % 12 .9-16.9 PLATELET COUNT (test code = PLT) 259 150-440 MEAN PLATELET VOLUME (test code = MPV) 10.5 fL 8.9-12.4 NEUTROPHIL % (test code = NT%) 51.7 % 42.2-75.2 LYMPHOCYTE % (test code = LY%) 25.1 % 20.5-51.1 MONOCYTE % (test code = MO%) 12.3 % 1.7-9.3 EOSINOPHIL % (test code = EO%) 9.6 % 0.0-7.0 BASOPHIL % (test code = BA%) 1.2 % 0-2.5 NEUTROPHIL # (test code = NT#) 4.40 x10 3/uL 1.80-7.70 LYMPHOCYTE # (test code = LY#) 2.14 x10 3/uL 1.00-4.80 MONOCYTE # (test code = MO#) 1.05 x10 3/uL 0.00-0.80 EOSINOPHIL # (test code = EO#) 0.82 x10 3/uL 0.00-0.45 BASOPHIL # (test code = BA#) 0.10 x10 3/uL 0.0-0.20
--- OUTSIDE RECORDS SUMMARY | 2020-02-08 12:30 | XMS REPORT ---
:1960 Author Organization [employer] Care Team Providers Name Role Phone Gomes, Na Provider Role Unavailable Allergies, Adverse Reactions, Alerts Substance Reaction Event Type N.K.D.A. 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 Assessment Simple chronic bronchitis J41.0 Ac tive Assessment Essential hypertension I10 Activ e Problem Primary osteoarthritis involving M15.0 Active multiple joints Assessment Mixed hyperlipidemia E78.2 Active Problem Paresthesia of skin R20.2 Active Assessment Medicare annual wellness visit, Z00.00 Active subsequent Problem Encounter for tobacco use cessation Z71.6 Active counseling Problem Alzheimer''s disease, unspecified G30.9 Active Problem Mild memory disturbance R41.3 Acti ve Problem Simple chronic bronchitis J41.0 Ac tive Problem Erectile dysfunction, unspecified N52.9 Active erectile [...] Problem Irritability and anger R45.4 Activ e Assessment Encounter for screening for lung Z12.2 Active cancer Problem Folliculitis L73.9 Active Problem Pure hypercholesterolemia E78.00 Ac tive Problem Mixed hyperlipidemia E78.2 Active Problem Essential hypertension I10 Activ e Problem Other chronic pain G89.29 Active Medications Medication Code Code Instructions Start End Status Dosage System Date Date Albuterol Sulfate [facility] [id number] 108 (90 Base) Aug 01, Acti ve 2 puffs HFA MCG/ACT 2019 Inhalation every 6 hours prn sob Incruse Ellipta [facility] 37669570007 62.5 MCG/INH Aug 01April Active 1 puff Inhalation Once 2018 12, a day 2019 blood glucose ND 0 n/s SC once a January Active one test strip day 2018 Alcohol Prep Pads ND 0 topical once a January Active as day , , directed 2018 2018 Lithobid [facility] 20225343144 300 MG Orally Active 1 tab let twice a day Seroquel ND 13133079805 400 MG Orally Dec 14, Active 1 tab let Once a day at 2018 bedtime Sildenafil [facility] 76002149928 100 MG Orally Jul Inactive 1 tablet Citrate Once a day 2018 Atorvastatin [facility] 00217131941 20 MG Orally Active 1 tablet Calcium Once a day Fish Oil [facility] 31788312882 1000 MG Orally Active 1 ca psule Once a day Super B-Complex [facility] 04170641974 - Orally once a Acti ve as day directed D3 Maximum [facility] 87273473963 5000 UNIT Active 1 capsu le Strength Orally Once a day Memantine HCl [facility] 29295079689 10 MG Orally Active 1 tablet Twice a day Atorvastatin [facility] 18321633210 40 MG Orally Active 1 tablet Calcium Once a day Vitamin B12 [facility] 99141555149 1000 MCG Orally Active 1 tablet Once a day Cyanocobalamin [facility] 10422449162 2500 MCG Active as Sublingual once directed a day Co-Enzyme Q-10 [facility] 23902792324 100 MG Orally Active 2 capsule Once a day with a meal Zetia [facility] 69306510624 10 MG Orally Active 1 table t Once a day Lancets Super NDC 0 n/s finger January Active one Thin stick once 2018 Diclofenac Sodium [facility] 37498726880 75 MG Orally Activ e 1 tablet Twice a day prn with gonsalo d pain or milk Trazodone HCl [facility] 31256723617 100 MG Orally Active 1 tablet Once a day at bedtime Ascorbic Acid [facility] 09271986385 500 MG Orally Active 1 tablet twice a day Cialis [facility] 62402016898 20 MG Orally Aug 01Aug Active 1 table t 2018 Thiamine [facility] 56055319009 50 MG Orally Active 2 caps ules Once a day Vitamin B12 [facility] 13732565539 1000 MCG Orally Active 1 tablet Once a day Melatonin [facility] 72302890009 3 MG Orally Active 1 tabl et Once a day at bedtime as needed with food Ezetimibe [facility] 52702966771 10 MG Orally Nov 15, Active 1 tab let Once a day 2018 Results Name Result Date Reference Range Unit Abnormali ty Flag Ct Low Dose Chest Screening Summary Purpose [employer] Submission
--- NOTE | 2020-02-08 12:42 | ER ---
Nurse's Notes [facility] Name: Gregory Dumont Age: 59 yrs Sex: Male : 1960 Arrival Date: 02/08/2020 Time: 12:25 Bed 16 Private MD: Diagnosis: Post op incision bleeding Presentation: 02/07 12:25 Chief complaint: EMS states: IRRITATED WAISTLINE SURGICAL INCISION. Coronavirus screen: bp Proceed with normal triage. Ebola Screen: No symptoms or risks identified at this time. Initial Sepsis Screen: Does the patient meet any 2 criteria? No. Patient's initial sepsis screen is negative. Does the patient have a suspected source of infection? No. Patient's initial sepsis screen is negative. Risk Assessment: Do you want to hurt yourself or someone else? Patient reports no desire to harm self or others. Onset of symptoms is unknown. 12:25 Method Of Arrival: EMS: [facility] bp 12:25 Acuity: MARION 5 bp 12:31 Note PT SEEN AND CLEARED BY EMS ON SCENE FOR SAME Y/D. bp Triage Assessment: 12:29 General: Appears in no apparent distress. comfortable, Behavior is cooperative, bp appropriate for age, anxious. Pain: Complains of pain in suprapubic area. EENT: No deficits noted. Neuro: No deficits noted. Cardiovascular: No deficits noted. Respiratory: No deficits noted. GI: No signs and/or symptoms were reported involving the gastrointestinal system. : No signs and/or symptoms were reported regarding the genitourinary system. Derm: No deficits noted. Musculoskeletal: No deficits noted. Historical: - Allergies: 12:29 NKA; bp - Home Meds: 12:29 None [Active]; bp - PMHx: 12:29 ADD/ADHD; Bipolar disorder; CVA; Diverticulitis; HEP C; HYPOGLYCEMIA; Irregular heart bp rate; - Immunization history:: Adult Immunizations unknown. - Social history:: Smoking status: unknown. - Family history:: not pertinent. Screenin:31 Abuse screen: Denies threats or abuse. Denies injuries from another. Nutritional bp screening: No deficits noted. Tuberculosis screening: No symptoms or risk factors identified. Fall Risk None identified. Assessment: 12:31 General: SEE TRIAGE NOTE. bp 13:18 Reassessment: PT D/C HOME AMBULATORY, DX WITH SURGICAL WOUND CHECK. bp Vital Signs: 12:25 BP 106 / 72; Pulse 92; Resp 17; Temp 98; Pulse Ox 98% ; bp ED Course: 12:25 Patient arrived in ED. bp 12:28 Triage completed. bp 12:29 Arm band placed on. bp 12:31 Patient has correct armband on for positive identification. Bed in low position. Call bp light in reach. Side rails up X2. 12:33 Bill Marie DO is Attending Physician. ms3 13:18 Carlos Eduardo Goddard, RN is Primary Nurse. bp 13:18 No provider procedures requiring assistance completed. Patient did not have IV access bp during this emergency room visit. Dressings: ABD pad X 1; suprapubic area. Administered Medications: No medications were administered Outcome: 12:42 Discharge ordered by . ms3 13:18 Discharged to home ambulatory. bp 13:18 Condition: stable 13:18 Discharge instructions given to patient, Instructed on discharge instructions, follow up and referral plans. wound care, Demonstrated understanding of instructions, follow-up care, wound care. 13:20 Patient left the ED. bp Signatures: Carlos Eduardo Goddard, RN RN bp Bill Marie DO DO ms3
--- NOTE | 2020-02-08 13:21 | EDPHYS ---
Physician Documentation [facility] Name: Gregory Dumont Age: 59 yrs Sex: Male : 1960 Arrival Date: 02/08/2020 Time: 12:25 Bed 16 Private MD: ED Physician Bill Marie HPI: 02/07 12:46 This 59 yrs old Male presents to ER via EMS with complaints of Wound Check. ms3 12:46 Patient presents to ED for recheck of: Surgical incision. The affected area is on the ms3 abdomen. Progress: The patient reports No problems other than some bleeding from wound yesterday and again this morning.. Historical: - Allergies: 12:29 NKA; bp - Home Meds: 12:29 None [Active]; bp - PMHx: 12:29 ADD/ADHD; Bipolar disorder; CVA; Diverticulitis; HEP C; HYPOGLYCEMIA; Irregular heart bp rate; - Immunization history:: Adult Immunizations unknown. - Social history:: Smoking status: unknown. - Family history:: not pertinent. ROS: 12:46 Constitutional: Negative for fever, and chills. Eyes: Negative for injury, pain, ms3 redness, and discharge, ENT: Negative for injury, pain, and discharge, Neck: Negative for injury, pain, and swelling, Cardiovascular: Negative for chest pain, and palpitations. Respiratory: Negative for shortness of breath, cough, wheezing, and pleuritic chest pain, Abdomen/GI: Negative for abdominal pain, nausea, vomiting, diarrhea, and constipation, Back: Negative for injury and pain, MS/Extremity: Negative for injury and deformity, Neuro: Negative for headache, weakness, numbness, tingling. Exam: 12:46 Constitutional: This is a well developed, well nourished patient who is awake, alert, ms3 and in no acute distress. Head/Face: Normocephalic, atraumatic. Neck: Trachea midline, no cervical lymphadenopathy. Supple, full range of motion without nuchal rigidity, or vertebral point tenderness. No Meningismus. Cardiovascular: Regular rate and rhythm with a normal S1 and S2. No gallops, murmurs, or rubs. Normal PMI, no JVD. No pulse deficits. Respiratory: Lungs have equal breath sounds bilaterally, clear to auscultation and percussion. No rales, rhonchi or wheezes noted. No increased work of breathing, no retractions or nasal flaring. Abdomen/GI: Soft, non-tender, with normal bowel sounds. No distension or tympany. No guarding or rebound. No evidence of tenderness throughout. Back: No spinal tenderness. No costovertebral tenderness. Full range of motion. 12:46 Skin: Exam negative for Appearance: normal except for affected area, RLQ incision clean, no erythema, no drainage, no bleeding. Vital Signs: 12:25 BP 106 / 72; Pulse 92; Resp 17; Temp 98; Pulse Ox 98% ; bp MDM: 12:39 Patient medically screened. ms3 12:46 Data reviewed: vital signs, nurses notes, penitentiary records. Counseling: I had a ms3 detailed discussion with the patient and/or guardian regarding: the historical points, exam findings, and any diagnostic results supporting the discharge/admit diagnosis, lab results, the need for outpatient follow up. ED course: Discussed incision care with pt. Pt to follow up with Dr Mathew in 2-3 days for incision re-evaluation. Pt understands/ agrees with plan. All questions answered. Return precautions discussed. Pt a/o x4, nad, non-toxic, ambulatory in ED, incision hemostatic. Administered Medications: No medications were administered Disposition: 12:46 Co-signature as Attending Physician, Bill Marie DO. ms3 Disposition: 02/08/20 12:42 Discharged to Home. Impression: Post op incision bleeding. - Condition is Stable. - Discharge Instructions: Incision Care, Adult. - Medication Reconciliation Form, Thank You Letter, Antibiotic Education, Prescription Opioid Use form. - Follow up: Private Physician; When: 2 - 3 days; Reason: Re-evaluation by your physician. Signatures: Carlos Eduardo Goddard RN RN Bill Mckee DO DO ms3 Corrections: (The following items were deleted from the chart) 13:20 12:42 02/08/2020 12:42 Discharged to Home. Impression: Post op incision bleeding. bp Condition is Stable. Forms are Medication Reconciliation Form, Thank You Letter, Antibiotic Education, Prescription Opioid Use. Follow up: Private Physician; When: 2 - 3 days; Reason: Re-evaluation by your physician. ms3
[2020-02-08 13:38] VITALS: BP 106/72; TEMP 98; O2SAT 98
== END 2020-02-08 13:20 | disposition home or self-care (01) ==
LOC: ER 12:24
DX: L76.22 Postprocedural hemorrhage of skin and subcutaneous tissue following other procedure (principal)
CPT/HCPCS: 99283

== ENCOUNTER 2020-02-09 21:22 | Emergency (ER) | payer OTHER ==
--- OUTSIDE RECORDS SUMMARY | 2020-02-09 21:27 | XMS REPORT ---
[...] Status Dosage System Date Date Albuterol Sulfate [facility] 71714002012 108 (90 Base) Aug 01, Acti ve 2 puffs HFA MCG/ACT 2019 Inhalation every 6 hours prn sob Incruse Ellipta [facility] 96086687946 62.5 MCG/INH Aug 01April Active 1 puff Inhalation Once 2018 12, a day 2019 blood glucose ND 0 n/s SC once a January Active one test strip day 2018 Alcohol Prep Pads ND 0 topical once a January Active as day , , directed 2018 2018 Lithobid [facility] 45035665000 300 MG Orally Active 1 tab let twice a day Seroquel ND 01496454075 400 MG Orally Dec 14, Active 1 tab let Once a day at 2018 bedtime Sildenafil [facility] 86705005293 100 MG Orally Jul Inactive 1 tablet Citrate Once a day 2018 Atorvastatin [facility] 78898884202 20 MG Orally Active 1 tablet Calcium Once a day Fish Oil [facility] 11733286479 1000 MG Orally Active 1 ca psule Once a day Super B-Complex [facility] 86584894800 - Orally once a Acti ve as day directed D3 Maximum [facility] 72952257286 5000 UNIT Active 1 capsu le Strength Orally Once a day Memantine HCl [facility] 11101883811 10 MG Orally Active 1 tablet Twice a day Atorvastatin [facility] 42649922671 40 MG Orally Active 1 tablet Calcium Once a day Vitamin B12 [facility] 07806717351 1000 MCG Orally Active 1 tablet Once a day Cyanocobalamin [facility] 97787841982 2500 MCG Active as Sublingual once directed a day Co-Enzyme Q-10 [facility] 24014693451 100 MG Orally Active 2 capsule Once a day with a meal Zetia [facility] 09493562617 10 MG Orally Active 1 table t Once a day Lancets Super NDC 0 n/s finger January Active one Thin stick once 2018 Diclofenac Sodium [facility] 22407940055 75 MG Orally Activ e 1 tablet Twice a day prn with gonsalo d pain or milk Trazodone HCl [facility] 12529126751 100 MG Orally Active 1 tablet Once a day at bedtime Ascorbic Acid [facility] 31825558513 500 MG Orally Active 1 tablet twice a day Cialis [facility] 06676551170 20 MG Orally Aug 01Aug Active 1 table t 2018 Thiamine [facility] 48447210623 50 MG Orally Active 2 caps ules Once a day Vitamin B12 [facility] 22921852860 1000 MCG Orally Active 1 tablet Once a day Melatonin [facility] 19021440817 3 MG Orally Active 1 tabl et Once a day at bedtime as needed with food Ezetimibe [facility] 07494280927 10 MG Orally Nov 15, Active 1 tab let Once a day 2018 Results Name Result Date Reference Range Unit Abnormali ty Flag Ct Low Dose Chest Screening Summary Purpose eClinicalWorks Submission
--- OUTSIDE RECORDS SUMMARY | 2020-02-09 21:27 | XMS REPORT ---
:1960 Author Organization [facility] t Address [address] [place] [address] Care Team Providers Name Role Phone Unavailable [...] ID 2020-01-01 2020-01-01 [id number] 16:10:00 16:10:00 [employer] [facility] Medicine 2019-12-26 2019-12-26 [facility] [id number] 08:44:00 08:44:00 [employer] [facility] 2019-12-05 2019-12-05 [facility] [id number] 15:07:00 15:07:00 [employer] [facility] 2019-09-24 2019-09-24 [facility] [id number] 09:27:00 09:27:00 [employer] [facility] 2019-09-06 2019-09-06 [facility] [id number] 12:00:00 12:00:00 [employer] [facility] 2019-08-18 2019-08-18 [facility] [id number] 17:55:00 17:55:00 [employer] [facility] 2019-08-012019-08-01 [facility] [id number] 09:00:00 09:00:00 [employer] [facility] 2019-06-07 2019-06-07 [facility] [id number] 11:20:00 11:20:00 [employer] [facility] 2019-01-04 2019-01-04 [facility] [id number] 14:04:00 14:04:00 [employer] [facility] 2018-11-23 2018-11-23 [facility] [id number] 09:15:00 09:15:00 [facility] 2018-11-20 2018-11-20 [facility] [id number] 10:13:00 10:13:00 [facility] 2018-11-15 2018-11-15 [facility] [id number] 15:15:00 15:15:00 [facility] 2018-10-09 2018-10-09 [facility] [id number] 10:19:00 10:19:00 [facility] 2018-06-02 2018-06-02 [facility] [id number] 16:46:00 16:46:00 [facility] 2018-05-11 2018-05-11 [facility] [id number] 09:45:00 09:45:00 [facility] Results Test Description Test Time Test [...] = CA) 8.8 mg/dL 8.8-10.2 CBC W/AUTO [id number] 06:40:00 Test Item Value Reference Range Comments [...] = BA#) 0.07 x10 3/uL 0.0-0.20 VANCOMYCIN [id number] 13:34:00 Test Item Value Reference Range Comments VANCOMYCIN TROUGH (test code = VANCT) 14.4 mcg/ML 10.0-20.0 Spec Comments: RN PLS DRAW VANCO 30MIN BEFORE DOSE DUE ON 01/30 BASIC METABOLIC [id number] 04:08:00 Test Item Value Reference Range Comments [...] (test code = CA) 8.8 mg/dL 8.8-10.2 [id number] 04:08:00 Test Item Value Reference Range Comments MAGNESIUM (test code = MAG) 1.7 mg/dL 1.4-2.6 CBC W/AUTO [id number] 03:56:00 Test Item Value Reference Range Comments [...] BA#) 0.09 x10 3/uL 0.0-0.20 BASIC METABOLIC [id number] 21:22:00 Test Item Value Reference Range Comments [...] = CA) 9.1 mg/dL 8.8-10.2 RENAL FUNCTION [id number] 21:22:00 Test Item Value Reference Range Comments ALBUMIN (test code = ALB) 3.4 G/DL 3.5-5.0 PHOSPHOROUS (test code = PHOS) 2.0 mg/dL 2.7-4.5 LIVER FUNCTION [id number] 21:22:00 Test Item Value Reference Range Comments TOTAL PROTEIN (test code = PROT) 5.6 g/dL 6.3-8.3 BILIRUBIN TOTAL (test code = BILT) 0.5 mg/dL 0.2-1.0 BILIRUBIN DIRECT (test code = BILD) <0.2 mg/dL 0.0-0.2 SGOT/AST (test code = AST) 9 IU/L 10-34 SGPT/ALT (test code = ALT) 7 U/L 10-44 ALKALINE PHOSPHATASE (test code = ALKP) 63 U/L 45-120 LACTIC [id number] 21:18:00 Test Item Value Reference Range Comments LACTIC ACID (test code = LACT) 9.4 mg/dL 4.5-18.0 PROTHROMBIN [id number] 21:12:00 Test Item Value Reference Range Comments [...] heart valves; 2.5-3.5recurrent systemic embolism. THROMBOPLASTIN TIME [id number] 21:12:00 Test Item Value Reference Range Comments THROMBOPLASTIN TIME PARTIAL 28.6 SECONDS 26.0-35.9 INTE RPRETATIVE (test code = PTT) DATA:Therapeut ic range: Unfractionated h eparin:47 - 71 seconds Argat roban:1.5 to 3 times the base line PTT PROTHROMBIN [id number] 21:09:00 Test Item Value Reference Range Comments [...] heart valves; 2.5-3.5recurrent systemic embolism. THROMBOPLASTIN TIME [id number] 21:09:00 Test Item Value Reference Range Comments THROMBOPLASTIN TIME PARTIAL (test code = PTT) SECONDS 26 .0-35.9 CBC W/AUTO [id number] 21:08:00 Test Item Value Reference Range Comments [...] BA#) 0.05 x10 3/uL 0.0-0.20 CBC W/MANUAL [id number] 05:21:00 Test Item Value Reference Range Comments [...] = PLTMORPH) NORMAL KATELYN L RENAL FUNCTION [id number] 05:20:00 Test Item Value Reference Range Comments [...] (test code = 2.5 mg/dL 2.7-4.5 PHOS) [id number] 05:20:00 Test Item Value Reference Range Comments MAGNESIUM (test code = MAG) 1.8 mg/dL 1.4-2.6 CBC W/MANUAL [id number] 04:48:00 Test Item Value Reference Range Comments [...] code = LYMPH) % 20.5-45.5 CBC W/MANUAL [id number] 04:48:00 Test Item Value Reference Range Comments [...] (test code = LYMPH) % 20.5-45.5 SURGICAL [id number] 12:52:00 RUN DATE: 01/29/20 [facility] - LAB PAGE 1 RUN TIME: 1252 Specimen Inquiry RUN USER: INTERFACE PATIENT: OTONIEL HENDERSON LOC: P.7S POD C U #: [id number] AGE/SX: 59/M ROOM: [facility] RE01/25/20REG DR: Cristopher Doty MD : [birth year] BED: 1 DIS: STATUS: ADM IN TLOC: SPEC #: [id number] RECD: 01/28/20 STATUS: FAINA REFabiana #: [id number] SIMON: 01/28/[address]: Cristopher Doty MD ENTERED: 01/28/20 SP TYPE: SURG OTHR DR: Roxanna Primary or Family Physician Mio Gilbert MD No,DocORDERED: PATHGM3, PATHGM5/2, PATH SPEC, H E STAIN HISTOLOGY: TISSUE ID BLK PCS PARISH LEV / PROCEDURE DISPOSITION ____ ___ ___ ___ ___ COLON SEG NTUMR A 18 1 TISSUES: A. COLON SEGMENTAL [id number] - Sigmoid Colon Proximal Rectum Anastomatic Donuts, [...] CONTINUED ON NEXT PAGE RUN DATE: 01/29/20 [facility] - LAB PAGE 2 RUN TIME: 1252 Specimen Inquiry RUN USER: INTERFACE SPEC #: [id number] PATIENT: OTONIEL HENDERSON #[id number] (Continued) GROSS DESCRIPTION (Continued) 2.4 x 2 [...] 01/29/20 1252 END OF REPORT BASIC METABOLIC [id number] 08:29:00 Test Item Value Reference Range Comments [...] (test code = CA) 9.2 mg/dL 8.8-10.2 [id number] 08:29:00 Test Item Value Reference Range Comments MAGNESIUM (test code = MAG) 1.3 mg/dL 1.4-2.6 CBC W/AUTO [id number] 08:04:00 Test Item Value Reference Range Comments [...] 0.04 x10 3/uL 0.0-0.20 Novel Coronavirus 2019 [id number] 14:20:00 Test Item Value Reference Range Comments Novel Coronavirus 2018 NEGATIVE Positive results are indicative of nCoV (test code = COVID19) the p resence [id number]-JlQ-7 RNA, clinical correla tion with patient historyand [...] the identification o f SARS-CoV-2 RNA usingthe [employer] System under the FDA Emergenc y UseAuthorization . The testing is performed by per alan in the procedures f or the [employer] M2000 moleculard iagnostic SARS-CoV-2 assay in vitro. NEGATIVE Value reported toFirst Name: SAVITA Last Name:[facility] RESULTS READ BACK AND VERIFIEDbyP.LAB.RS, on 01/26/20, @ 1934.- XR ABDOMEN [id number] 14:18:00Patient Name: OTONIEL HENDERSON Unit No: [id number] EXAMS: CPT CODE: [id number] XR ABDOMEN 1V 58958 Abdomen one view supine 01/28/2020 CLINICAL INDICATION: [...] Printed Date/Time: 01/28/2020 (1421) Name: OTONIEL HENDERSON [facility] Phys: José Antonio Zamora MD [address] : 1960 Age: 59 Sex: [place] [address] Loc: P.0733 1 Exam Date: 01/28/2020 Status: ADM IN PH: FAX: PAGE 1 Signed ReportCOMPREHENSIVE METABOLIC [id number] 07:39:00 Test Item Value Reference Range Comments [...] 77 U/L 45-120 (test code = ALKP) [id number] 07:39:00 Test Item Value Reference Range Comments MAGNESIUM (test code = MAG) 1.4 mg/dL 1.4-2.6 CBC W/AUTO [id number] 07:12:00 Test Item Value Reference Range Comments [...] code = BA#) 0.10 x10 3/uL 0.0-0.20 [id number] 15:08:00 Test Item Value Reference Range Comments LITHIUM (test code = 0.5 mmol/L 0.6-1.2 LITH) Detection Limit = 0.1 <0.1 indicates None DetectedPerforme d At: [facility] [address] [place], [place] [id number] So MD Ph:[phone] [id number] 15:08:00 Test Item Value Reference Range Comments LITHIUM (test code = 0.5 mmol/L 0.6-1.2 LITH) Detection Limit = 0.1 <0.1 indicates None DetectedPerforme d At: [facility] [address] [place], [place] [id number] So MD Ph:[phone] Novel Coronavirus 2018 [id number] 07:11:00 Test Item Value Reference Range Comments [...] 45-120 (test code = ALKP) CBC W/AUTO [id number] 04:21:00 Test Item Value Reference Range Comments [...] x10 3/uL 0.0-0.20 - CT ABD PELVIS [id number] 09:58:00Patient Name: OTONIEL HENDERSON Unit No: [id number] EXAMS: CPT CODE: [id number] CT ABD PELVIS W/CONT 51552 CT abdomen and pelvis with IV contrast. [...] renal cyst. Additional findings as above. [facility]: VAR[facility]. - Norbert William MD [address] : 1960 Age: 59 Sex: [place] [address] Loc: P.0723 1 Exam Date: 01/26/2020 Status: ADM IN PH: FAX: PAGE 1 Signed Report (CONTINUED) Patient Name: OTONIEL HENDERSON Unit No: [id number] EXAMS: CPT CODE: [id number] CT ABD PELVIS W/CONT 29607 <Continued> at 0958 Reported and signed by: OTONIEL ROSSI M.D. CC: Cristopher Doty MD; Norbert William MD Technologist: ANTONIO Martin(Jeannine)(CT) CTDI: 11.68 DLP: 602 Trscr Dt/Tm: 01/26/2020 (0958) by:[email or web address] Printed Date/Time: 01/26/2020 (1001)[facility] Phys: VARSHA.Kole - Norbert William MD [address] : 1960 Age: 59 Sex: [place] [address] [id number] Loc: P.0723 1 Exam Date: 01/26/2020 Status: ADM IN PH: FAX: PAGE 2 Signed ReportCOMPREHENSIVE METABOLIC [id number] 05:50:00 Test Item Value Reference Range Comments [...] 45-120 (test code = ALKP) CBC W/AUTO [id number] 04:55:00 Test Item Value Reference Range Comments [...] BA#) 0.15 x10 3/uL 0.0-0.20 COMPREHENSIVE METABOLIC [id number] 18:44:00 Test Item Value Reference Range Comments [...] U/L 45-120 (test code = ALKP) PROTHROMBIN [id number] 18:32:00 Test Item Value Reference Range Comments [...] heart valves; 2.5-3.5recurrent systemic embolism. CBC W/AUTO [id number] 18:26:00 Test Item Value Reference Range Comments [...]
--- OUTSIDE RECORDS SUMMARY | 2020-02-09 21:27 | XMS REPORT ---
[...] End Status Dosage System Date Date Cipro [facility] 65821242721 500 MG Orally Nov Active 1 tabl et every 12 hrs 2018 Metronidazole [facility] 58359172031 500 MG Orally Nov Active 1 tablet every 6 hours 2018 Lithobid [facility] 07907500464 300 MG Orally Active 1 tab let twice a day Atorvastatin [facility] 90053497729 20 MG Orally Active 1 tablet Calcium Once a day Co-Enzyme Q-10 [facility] 30527121758 100 MG Orally Active 2 capsule Once a day with a meal Melatonin ND 66131785182 3 MG Orally Active 1 tabl et Once a day at bedtime as needed with food Cyanocobalamin [facility] 49848637597 2500 MCG Active as Sublingual once directed a day Memantine HCl ND 88309085099 10 MG Orally Active 1 tablet Twice a day Trazodone HCl ND 56956871252 100 MG Orally Active 1 tablet Once a day at bedtime Atorvastatin ND 86340924454 40 MG Orally Active 1 tablet Calcium Once a day Fish Oil ND 62359377937 1000 MG Orally Active 1 ca psule Once a day Ranitidine HCl ND 71121960535 150 MG Active TAKE 1 TABLET BY MOUTH TWICE A DAY Thiamine [facility] 74080618914 50 MG Orally Active 2 caps ules Once a day Super B-Complex ND 87366446930 - Orally once a Acti ve as day directed Ezetimibe ND 12559505815 10 MG Orally Nov 15, Active 1 tab let Once a day 2018 D3 Maximum ND 68936385081 5000 UNIT Active 1 capsu le Strength Orally Once a day Cyclobenzaprine ND 13169403951 10 MG Orally Sep 06Sep Active 1 tablet HCl once a day at 2018 11, as needed bedtime 2018 Ascorbic Acid [facility] 31508867440 500 MG Orally Active 1 tablet twice a day Lancets Super Thin NDC 0 n/s finger January Active on e stick once 2018 Vitamin B12 ND 36576978820 1000 MCG Orally Active 1 tablet Once a day Albuterol Sulfate [facility] 98381703607 108 (90 Base) Aug 01, Acti ve 2 puffs HFA MCG/ACT 2019 Inhalation every 6 hours prn sob Seroquel ND 60305257348 400 MG Orally Dec 14, Active 1 tab let Once a day at 2018 bedtime blood glucose test NDC 0 n/s SC once a January Active one strip day 2018 Diclofenac Sodium ND 88801716060 75 MG Orally Activ e 1 tablet Twice a day prn with gonsalo d pain or milk Zetia ND 90399863509 10 MG Orally Active 1 table t Once a day Vitamin B12 [facility] 50020067450 1000 MCG Orally Active 1 tablet Once a day Earle Avitia [facility] 63554607602 62.5 MCG/INH Aug 01April Active 1 puff Inhalation Once 2018 12, a day 2019 Results No Known Results Summary Purpose eClinicalWorks Submission
[2020-02-09 21:47] LABS: Absolute Lymphocytes (CBC) 2.1 K/uL (0.7-4.9); Hematocrit 32.2 % (39.6-49.0); Lymphocytes % 16.4 % (15.3-44.8); MPV 8.2 fL (7.6-11.3); RBC Red Blood Cell Count 3.57 M/uL (4.33-5.43)
[2020-02-09 21:52] LABS: Protime INR 0.98
[2020-02-09 22:02] LABS: Albumin 3.6 g/dL (3.4-5.0); Bilirubin Direct 0.1 mg/dL (0-0.2); Bilirubin Total 0.4 mg/dL (0.2-1.0); Potassium 4.5 mmol/L (3.5-5.1); Protein, Total 7.7 g/dL (6.4-8.2)
[2020-02-09] MEDS ORDERED: SILVER NITRATE 1 APPL TOP ONE ×2 (22:14→22:15)
--- NOTE | 2020-02-10 00:30 | ER ---
Nurse's Notes [facility] Name: Gregory Dumont Age: 59 yrs Sex: Male : 1960 Arrival Date: 02/09/2020 Time: 21:30 Bed 4 Private MD: Diagnosis: Bilateral lower abdomen intramuscular hematoma;Postop incision bleeding Presentation: 02/08 21:30 Chief complaint: EMS states: He has an incision above the groin from a prior surgery jb4 that is draining more than normal and keeps oozing blood. Coronavirus screen: Proceed with normal triage. Ebola Screen: No symptoms or risks identified at this time. Initial Sepsis Screen: Does the patient meet any 2 criteria? No. Patient's initial sepsis screen is negative. Does the patient have a suspected source of infection? No. Patient's initial sepsis screen is negative. Risk Assessment: Do you want to hurt yourself or someone else? Patient reports no desire to harm self or others. Onset of symptoms was February 07, 2020. Transition of care: patient was not received from another setting of care. 21:30 Method Of Arrival: EMS: [facility] jb4 21:30 Acuity: [facility] 3 jb4 Historical: - Allergies: 21:37 NKA; jb4 - PMHx: 21:37 ADD/ADHD; Bipolar disorder; CVA; Diverticulitis; HEP C; HYPOGLYCEMIA; Irregular heart jb4 rate; - PSHx: 21:37 abdominal; jb4 - Immunization history:: Adult Immunizations up to date. - Social history:: Smoking status: Patient reports the use of cigarette tobacco products, cigars. Screenin:30 Abuse screen: Denies threats or abuse. Nutritional screening: No deficits noted. jb4 Tuberculosis screening: No symptoms or risk factors identified. Fall Risk None identified. Assessment: 21:30 General: Appears in no apparent distress. comfortable, Behavior is calm, cooperative, jb4 appropriate for age. Pain: Denies pain. Neuro: Level of Consciousness is awake, alert, obeys commands, Oriented to person, place, time, situation. Cardiovascular: Patient's skin is warm and dry. Respiratory: Airway is patent Respiratory effort is even, unlabored, Respiratory pattern is regular, symmetrical. GI: No signs and/or symptoms were reported involving the gastrointestinal system. bruising is noted to the right lower abdomen. : No signs and/or symptoms were reported regarding the genitourinary system. EENT: No signs and/or symptoms were reported regarding the EENT system. Derm: Skin is pink, warm \T\ dry. Musculoskeletal: Circulation, motion, and sensation intact. Range of motion: intact in all extremities. Injury Description: Surgical incision noted to the lower abdomen. 22:30 Reassessment: Patient appears in no apparent distress at this time. Patient and/or jb4 family updated on plan of care and expected duration. Pain level reassessed. Patient is alert, oriented x 3, equal unlabored respirations, skin warm/dry/pink. 23:31 Reassessment: Patient appears in no apparent distress at this time. Patient and/or jb4 family updated on plan of care and expected duration. Pain level reassessed. Patient is alert, oriented x 3, equal unlabored respirations, skin warm/dry/pink. 02/09 00:30 Reassessment: Patient appears in no apparent distress at this time. Patient and/or jb4 family updated on plan of care and expected duration. Pain level reassessed. Patient is alert, oriented x 3, equal unlabored respirations, skin warm/dry/pink. PT verbalized understanding of d/c and follow up instructions. Denies questions or concerns. Vital Signs: 02/08 21:30 BP 114 / 79; Pulse 81; Resp 16; Temp 98.5(O); Pulse Ox 100% on R/A; Weight 54.43 kg jb4 (R); Height 5 ft. 11 in. (180.34 cm) (R); Pain 0/10; 22:20 BP 126 / 80; Pulse 73; Resp 16; Pulse Ox 100% on R/A; jb4 23:30 BP 123 / 85; Pulse 86; Resp 16; Pulse Ox 100% on R/A; jb4 02/09 00:15 BP 118 / 82; Pulse 84; Resp 16; Pulse Ox 100% on R/A; jb4 02/08 21:30 Body Mass Index 16.74 (54.43 kg, 180.34 cm) jb4 ED Course: 02/08 20:37 Inserted saline lock: 20 gauge in right antecubital area, using aseptic technique. jb4 ,using aseptic technique. Started by TANIA Stein Tech Blood collected. 20:37 Initial lab(s) drawn, by ED staff, sent to lab. jb4 21:30 Patient arrived in ED. jb4 21:30 Bjorn Boyce PA is PHCP. cp 21:30 Luis Fernando Mott MD is Attending Physician. cp 21:30 Placed in gown. Bed in low position. Call light in reach. Side rails up X 1. Pulse ox jb4 on. NIBP on. Warm blanket given. 21:32 Triage completed. jb4 21:37 Arm band placed on left wrist. jb4 21:41 Surinder Edward, RN is Primary Nurse. jb4 22:54 CT Abd/Pelvis - IV Contrast Only In Process Unspecified. EDMS 02/09 00:30 No provider procedures requiring assistance completed. IV discontinued, intact, jb4 bleeding controlled, No redness/swelling at site. Pressure dressing applied. Administered Medications: 02/08 22:36 Not Given (Physician Discretion): Silver Nitrate Applicators 1 application Topical jb4 once; to bedside Outcome: 02/09 00:29 Discharge ordered by MD. cp 00:30 Discharged to home ambulatory. jb4 00:30 Condition: stable 00:30 Discharge instructions given to patient, Instructed on discharge instructions, follow up and referral plans. Demonstrated understanding of instructions, follow-up care. 00:39 Patient left the ED. jb4 Signatures: Dispatcher [employer] EDTN Bjorn Boyce PA PA cp Surinder Edward, RN RN jb4
--- NOTE | 2020-02-10 00:30 | EDPHYS ---
Physician Documentation [facility] Name: Gregory Dumont Age: 59 yrs Sex: Male : 1960 Arrival Date: 02/09/2020 Time: 21:30 Bed 4 Private MD: ED Physician Luis Fernando Mott HPI: 02/08 21:40 This 59 yrs old Male presents to ER via EMS with complaints of Post Surgical cp Bleeding. 21:40 The patient represents for recheck after previously being evaluated for bleeding from cp surgical incision. 21:40 The patient was previously evaluated in the emergency department 2 day(s) ago. cp 21:40 Previous care: wound dressed. cp Historical: - Allergies: 21:37 NKA; jb4 - PMHx: 21:37 ADD/ADHD; Bipolar disorder; CVA; Diverticulitis; HEP C; HYPOGLYCEMIA; Irregular heart jb4 rate; - PSHx: 21:37 abdominal; jb4 - Immunization history:: Adult Immunizations up to date. - Social history:: Smoking status: Patient reports the use of cigarette tobacco products, cigars. ROS: 21:45 Constitutional: Negative for body aches, chills, fever. cp 21:45 Cardiovascular: Negative for chest pain. cp 21:45 Respiratory: Negative for cough, shortness of breath, wheezing. 21:45 Abdomen/GI: Negative for abdominal pain, nausea, vomiting, and diarrhea. 21:45 Skin: Positive for of the left lower abdomen, bleeding from surgical incision. 21:45 Neuro: Negative for altered mental status, headache. 21:45 All other systems are negative. Exam: 21:55 Constitutional: The patient appears in no acute distress, alert, awake, non-toxic, well cp developed, well nourished. 21:55 Head/Face: Normocephalic, atraumatic. cp 21:55 Eyes: Periorbital structures: appear normal, Conjunctiva: normal, no exudate, no injection, Lids and lashes: appear normal, bilaterally. 21:55 ENT: External ear(s): are unremarkable, Nose: is normal, Mouth: is normal. 21:55 Chest/axilla: Inspection: normal, Palpation: is normal, no crepitus, no tenderness. 21:55 Cardiovascular: Rate: normal, Rhythm: regular. 21:55 Respiratory: the patient does not display signs of respiratory distress, Respirations: normal, no use of accessory muscles, labored breathing, is not present, Breath sounds: are clear throughout, no decreased breath sounds. 21:55 Abdomen/GI: Inspection: bruising, right lower quadrant and left lower quadrant, distension, is not seen, several incisional scars noted with LLQ incisional scar expressing dark colored blood, Bowel sounds: active, all quadrants, Palpation: abdomen is soft and non-tender, in all quadrants. 21:55 Skin: cellulitis, is not appreciated, no rash present. 21:55 Neuro: Orientation: to person, place \T\ time. Mentation: is normal, Motor: moves all fours, strength is normal. Vital Signs: 21:30 BP 114 / 79; Pulse 81; Resp 16; Temp 98.5(O); Pulse Ox 100% on R/A; Weight 54.43 kg jb4 (R); Height 5 ft. 11 in. (180.34 cm) (R); Pain 0/10; 22:20 BP 126 / 80; Pulse 73; Resp 16; Pulse Ox 100% on R/A; jb4 23:30 BP 123 / 85; Pulse 86; Resp 16; Pulse Ox 100% on R/A; jb4 02/09 00:15 BP 118 / 82; Pulse 84; Resp 16; Pulse Ox 100% on R/A; jb4 02/08 21:30 Body Mass Index 16.74 (54.43 kg, 180.34 cm) jb4 MDM: 02/08 21:36 Patient medically screened. cp 21:45 Differential diagnosis: abscess, cellulitis, infected surgical wound. cp 02/09 00:15 Data reviewed: vital signs, nurses notes, lab test result(s), radiologic studies, CT cp scan. Counseling: I had a detailed discussion with the patient and/or guardian regarding: the historical points, exam findings, and any diagnostic results supporting the discharge/admit diagnosis, lab results, radiology results, the need for outpatient follow up, surgeon who performed abdominal surgery, to return to the emergency department if symptoms worsen or persist or if there are any questions or concerns that arise at home. Response to treatment: the patient's symptoms have mildly improved after treatment. ED course: Unable to contact charley at this time as patient unable provide name of surgeon and/or contact info. 02/08 21:33 Order name: Basic Metabolic Panel; Complete Time: 22:08 cp 02/08 22:08 Interpretation: Normal except: CL 109; BUN 20; GFR 58. cp 02/08 21:33 Order name: CBC with Diff; Complete Time: 21:58 cp 02/08 22:09 Interpretation: Normal except: WBC 12.9; RBC 3.57; HGB 10.5; HCT 32.2; RDW 15.5; cp EOSINOPHIL % 5.9; NEUT A 8.6; EOSA 0.8. 02/08 21:33 Order name: LFT's; Complete Time: 22:08 cp 02/08 22:09 Interpretation: Normal except: GLOB 4.1; A/G 0.9. cp 02/08 21:33 Order name: PT-INR; Complete Time: 21:58 cp 02/08 22:14 Order name: CT Abd/Pelvis - IV Contrast Only cp 02/08 21:33 Order name: Cardiac monitoring; Complete Time: 21:41 cp 02/08 21:33 Order name: IV Saline Lock; Complete Time: 21:41 cp 02/08 21:33 Order name: Labs collected and sent; Complete Time: 21:41 cp 02/08 21:33 Order name: O2 Per Protocol; Complete Time: 21:41 cp 02/08 21:33 Order name: O2 Sat Monitoring; Complete Time: 21:41 cp 02/08 22:29 Order name: NPO; Complete Time: 22:36 cp 02/09 00:15 Order name: Wound dressing; Complete Time: 00:38 cp Administered Medications: 02/08 22:36 Not Given (Physician Discretion): Silver Nitrate Applicators 1 application Topical jb4 once; to bedside Disposition: 02/09 00:45 Chart complete. cp 01:07 Co-signature as Attending Physician, Luis Fernando Mott MD. abdi Disposition: 02/10/20 00:29 Discharged to Home. Impression: Bilateral lower abdomen intramuscular hematoma, Postop incision bleeding. - Condition is Stable. - Discharge Instructions: Hematoma, Wound Care. - Medication Reconciliation Form, Thank You Letter, Antibiotic Education, Prescription Opioid Use form. - Follow up: Private Physician; When: primary surgeon; Reason: Wound Recheck. - Problem is new. - Symptoms have improved. Signatures: Dispatcher [employer] EDLuis Fernando Casillas MD MD pkl Bjorn Boyce PA PA cp Surinder Edward, RN RN jb4 Corrections: (The following items were deleted from the chart) 02/08 22:09 21:58 Normal except: WBC 12.9; RBC 3.57; HGB 10.5; HCT 32.2; RDW 15.5; EOSINOPHIL % cp 5.9; NEUT A 8.6. cp 02/09 00:39 00:29 02/10/2020 00:29 Discharged to Home. Impression: Bilateral lower abdomen jb4 intramuscular hematoma; Postop incision bleeding. Condition is Stable. Forms are Medication Reconciliation Form, Thank You Letter, Antibiotic Education, Prescription Opioid Use. Follow up: Private Physician; When: primary surgeon; Reason: Wound Recheck. Problem is new. Symptoms have improved. cp
[2020-02-10 00:44] VITALS: TEMP 98.5; O2SAT 100
[2020-02-10 00:47] VITALS: BP 123/85
--- NOTE | 2020-02-10 11:58 | RAD REPORT ---
EXAM DESCRIPTION: CT - Abdomen Pelvis W Contrast - 02/10/2020 6:56 am CLINICAL HISTORY: Post op bleeding TECHNIQUE: Contiguous axial images obtained through the abdomen and pelvis following the uneventful administration of IV contrast. Coronal and sagittal reformatted images were provided. This exam was performed according to our departmental dose-optimization program, which includes autom ated exposure control, adjustment of the mA and/or kV according to patient size and/or use of iterati ve reconstruction technique. COMPARISON: 09/29/2019 FINDINGS: Lung bases: Minimal right basilar subsegmental atelectasis/pleural parenchymal scar. Liver: Hepatic parenchymal calcifications compatible with remote granulomatous organism exposure. Gallbladder and biliary system: Unremarkable Pancreas: Unremarkable Spleen: Splenic parenchymal calcifications compatible with remote granulomatous organism exposure. Adrenals: Unremarkable Kidneys: Normal renal cortical enhancement. 3.3 cm minimally septated cyst at the lower pole on the r ight. Bilateral calculi. No hydronephrosis. Bowel: Duodenal diverticula. Right abdominal small bowel anastomosis. Sigmoid anastomosis. Mild infil trative changes along the distal descending and proximal to mid sigmoid colon. No appreciable wall th ickening. Moderate stool. No obstruction. Appendix: Normal caliber appendix. No findings to suggest acute appendicitis. Urinary bladder: Unremarkable Reproductive: Unremarkable as visualized Lymph nodes: No pathologically enlarged lymph nodes. Peritoneum: Small amount of hemorrhagic fluid subjacent to the right lower rectus muscle. No free air . Vessels: Moderate atherosclerotic disease. No abdominal aortic aneurysm. Abdominal wall: Tiny fat-containing umbilical and small bilateral fat-containing inguinal hernias. He terogeneous enlargement of the bilateral lower rectus abdominis muscles measuring approximately 9.9 x 2.6 x 8.1 cm in maximum dimensions. Lower ventral abdominal wall incisional scar. Subincisional flui d measuring approximately 7.9 x 1.6 x 2.3 cm. This collection extends to and appears contiguous with the rectus abdominis muscles. Bones: Multilevel spondylosis. No acute fracture. IMPRESSION: 1. Bilateral lower rectus abdominis intramuscular hematoma measuring approximately 9.9 x 2.6 x 8.1 cm in maximum dimensions. Lower ventral abdominal wall subincisional fluid collection melchor suring approximately 7.9 x 1.6 x 2.3 cm. This collection extends to and appears contiguous with the r ectus muscles. Please correlate clinically for any signs and symptoms of infection. 2. Postsurgical changes at the level of the sigmoid colon. Mild infiltrative changes surrounding th e distal descending and proximal to mid sigmoid colon without appreciable wall thickening. Findings m ay be related to recent postoperative state. 3. Other findings as above. Electronically signed by: Chiki Winn MD 02/09/2020 11:43 PM CDT Due to temporary technical issues with the PACS/Fluency reporting system, reports are being signed by the in house radiologist as a courtesy to ensure prompt reporting. The interpreting radiologist is f ully responsible for the content of the report.
== END 2020-02-10 00:39 | disposition home or self-care (01) ==
LOC: ER 21:22
DX: L76.32 Postprocedural hematoma of skin and subcutaneous tissue following other procedure (principal); F17.290 Nicotine dependence, other tobacco product, uncomplicated
CPT/HCPCS: 85025; 80048; 36415; 85610; 80076; 74177; Q9967; 99284

== ENCOUNTER 2020-03-27 14:06 | Emergency (ER) | payer OTHER ==
--- OUTSIDE RECORDS SUMMARY | 2020-03-27 14:09 | XMS REPORT | Continuity of Care Document ---
:1960 Author Organization [facility] t Address [address] [place] [address] Care Team Providers Name Role Phone Unavailable Unavailable Unavailable Payers Payer Name Policy Type Policy Number Effective Date Expiration Date S ource Problems Condition Condition Condition Status Onset Resolution Last Treating Co mments Source Name Details Category Date Date Treatment Clinician Date Folliculit Folliculit Problem Active [facility] Arthritis Arthritis Problem [facility] Bipolar 1 Bipolar [address] [facility] disorder disorder [facility] Mixed Mixed Problem Active [facility] hyperlipid hyperlipid Greta kes - emia emia Memoria l [facility] Pure Pure Problem Active [facility] hyperchole hyperchole Greta kes - sterolemia sterolemia Me moria l [facility] 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 Greta kes - itis itis Memoria involving involving l multiple multiple Outpat i joints joints ent Clinics Smoker Smoker Problem Active [facility] Essential Essential Problem Active [facility] hypertensi hypertensi Greta kes - on on [facility] l [facility] Other Other Problem Active [facility] chronic chronic [facility] pain pain [facility] l [facility] Irritabili Irritabili Problem Active [facility] ty and ty and [facility] - anger anger [facility] l [facility] Elevated Elevated Problem Active [facility] blood blood [facility] - pressure pressure Memori a reading reading l without without Outpati diagnosis diagnosis ent of of Clinics hypertensi hypertensi on on Encounter Encounter Problem Active [facility] for for [facility] - tobacco tobacco Memoria use use l cessation cessation Outp ati counseling counseling en t Clinics Mild Mild Problem Active [facility] memory memory [facility] - disturbanc disturbanc Me moria e e l [facility] Paresthesi Paresthesi Problem Active [facility] a of skin a of skin Luke s - [facility]oria l [facility] Otalgia of Otalgia of Problem Active [facility] left ear left ear [facility] Dementia Dementia Problem Active [facility] in other in other [facility] - diseases diseases Memori a classified classified l elsewhere elsewhere Outp ati without without ent behavioral behavioral Cl inics disturbanc disturbanc e e Impacted Impacted Problem Active [facility] cerumen of cerumen of Greta kes - left ear left ear Memori a l [facility] Alzheimer' Alzheimer' Problem Active [facility] - disease, disease, Memori a unspecifie unspecifie l d d [facility] 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[facility] dysfunctio dysfunctio Greta kes - n, n, Memoria unspecifie unspecifie l d erectile d erectile Ou tpati dysfunctio dysfunctio en t n type n type Clinics Hypoglycem Hypoglycem Problem Active [facility] ia ia [facility] Simple Simple Problem Active [facility] chronic chronic [facility] - bronchitis bronchitis Me moria l [facility] Nicotine Nicotine Problem Active [facility] dependence dependence Greta kes - , , Memoria cigarettes cigarettes l , , [facility] uncomplica uncomplica en t mann mann Clinics 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 Greta kes - itis of itis of Memoria both knees both knees l [facility] Allergies, Adverse Reactions, Alerts Allergy Allergy Status Severity Reaction(s) Onset Inactive Treating Comm ents Source Name Type Date Date Clinician No Known DA Active [facility]-24 [facility] [address] Medications Ordered Filled Start Stop Current Ordering Indication Dosage Frequency Signature Comments Components Source Medication Medication Date Date Medication? Clinician (SIG) Name Name Cyclobenzap Cyclobenzap 2018-10 2019- No Na Gomes [address] [facility] rine HCl rine HCl 11-06 12-11 as needed L ukes - 00:00: 00:00 Memoria 00 :00 l Outpati ent Clinics Albuterol Albuterol 2018-10 Yes Na Gomes [address] [facility] Sulfate HFA Sulfate HFA 0-16 L ukes - 00:00: Memoria 00 l Outpati ent Clinics Incruse Incruse 2018-10 2020- No Na Gomes [address] Ellipta Ellipta 0-16 07-12 [facility] - 00:[facility]: [facility] 00 :[facility] l Out[facility] ent Clinics Lancets Lancets Yes Na Gomes one [facility] Super Thin Super Thin 4-30 Mark es - 00:00: Memoria 00 l Outpati ent Clinics blood blood 2018- 2020- No Na Gomes one [facility] glucose glucose 4-30 - [facility] - test strip test strip 00:00: 00:00 Memoria 00 :00 l Outpati ent Clinics Ezetimibe Ezetimibe Yes Na Gomes [address] [facility] 1-30 [facility] - 00:[facility]: Memoria 00 l Outpati ent Clinics Seroquel Seroquel Yes Na Gomes [address] [facility] 2-28 [facility] - 00:00: [facility]oria 00 l Outpati ent Clinics Vitamin B12 Vitamin B12 Yes Na Gomes [address] [facility] Vitamin B12 Vitamin B12 Yes Na Gomes [address] [facility] Trazodone Trazodone Yes Na Gomes [address] [facility] HCl HCl at bedtime [facility] Zetia Zetia Yes Na Gomes [address] [facility] Fish Oil Fish Oil Yes Na Gomes [address] [facility]ics Ascorbic Ascorbic Yes Na Gomes [address] [facility] [address] Acid Acid [facility]ics Lithobid Lithobid Yes Na Gomes [address] [facility] Co-Enzyme Co-Enzyme Yes Na Gomes [address] Q-10 Q-10 with a [facility] - meal [facility]oria l Outpati ent Clinics Melatonin Melatonin Yes Na Gomes [address] [facility] at bedtime [facility] - as needed Memoria with food l Outpati ent Clinics Cyanocobala Cyanocobala Yes Na Gomes as [facility] min min directed [facility]ics Super Super Yes Na Gomes as [facility] B-Complex B-Complex directed L ukes - Mem[facility] l Outpat[facility] ent Clinics D3 Maximum D3 Maximum Yes Na Gomes [address] [facility] [address] Strength Strength [facility] Thiamine Thiamine Yes Na Gomes [address] [facility] Memantine Memantine Yes Na Gomes [address] [facility] [address] HCl HCl [facility] Atorvastati Atorvastati Yes Na Gomes [address] [facility] n Calcium n Calcium [facility] Atorvastati Atorvastati Yes Na Gomes [address] [facility] n Calcium n Calcium [facility] Diclofenac Diclofenac Yes Na Gomes [address] [facility] [address] Sodium Sodium with food [facility] - or milk Memoria l Outpati ent Clinics Ranitidine Ranitidine Yes Na Gomes TAKE [address] [facility] HCl HCl TABLET BY [facility] - MOUTH Memoria TWICE A l DAY Outpati ent Clinics Cipro Cipro 2019- No Na Gomes 1 tablet [facility] 09-13 [facility] - 00:00 Memoria :00 l Outpati ent Clinics Metronidazo Metronidazo 2019- No Na Gomes [address] [facility] [address] le le 09-13 [facility] - 00:00 Memoria :00 l Outpati ent Clinics Procedures This patient has no known procedures. Encounters Start End Encounter Admission Attending Care Care Encounter Source Date/Time Date/Time Type Type Clinicians Facility Department ID 2020-01-01 2020-01-01 [facility] [id number] [facility] [address] 16:10:00 16:10:00 [employer] [facility] Medicine Medicine Outpati ent Clinics 2019-12-26 2019-12-26 [facility] [id number] 08:44:00 08:44:00 [employer] [facility] Medicine Medicine Outpati ent Clinics 2019-12-05 2019-12-05 [facility] [id number] 15:07:00 15:07:00 [employer] [facility] Medicine Outpati ent Clinics 2019-09-24 2019-09-24 [facility] [id number] 09:27:00 09:27:[place] [employer] [place] [facility] Medicine l Medicine Outpati ent Clinics 2019-09-06 2019-09-06 [facility] [id number] [address] 12:00:00 12:00:00 [place] [employer] [place] - Drive [facility] l Medicine Outpati ent Clinics 2019-08-18 2019-08-18 [facility] [id number] 17:55:00 17:55:00 [place] [employer] [place] [email or web address] [facility] Medicine l Medicine Outpati ent Clinics 2019-08-01 2019-08-01 [facility] [id number] 09:00:00 09:00:00 [place] [email or web address] [facility] l Medicine Outpati ent Clinics 2019-06-07 2019-06-07 [facility] [id number] 11:20:00 11:20:00 [place] [email or web address] [facility] Medicine l Medicine Outpati ent Clinics 2019-01-04 2019-01-04 [facility] [id number] 14:04:00 14:04:00 [place] [employer] [facility] l Medicine Outpati ent Clinics 2018-11-23 2018-11-23 [facility] [id number] 09:15:00 09:15:00 t Urgent Urgent Care L [facility] l Outpati ent Clinics 2018-11-20 2018-11-20 [facility] [id number] 10:13:00 10:13:00 [place] [employer] [facility] Medicine l Medicine Outpati ent Clinics 2018-11-15 2018-11-15 [facility] [id number] [address] 15:15:00 15:15:00 [place] [employer] [address] [facility] Medicine l Medicine Outpati ent Clinics 2018-10-09 2018-10-09 [facility] [id number] 10:19:00 10:19:00 [place] [employer] Cardiovascular [facility] 2018-06-02 2018-06-02 Outpatient Shannan Solomon [id number] 16:46:00 16:46:00 [facility] 2018-05-11 2018-05-11 Outpatient Shannan Solomon [id number] 09:45:00 09:45:00 [facility] Results Test Description Test Time Test Comments Results Result Comments Source BASIC METABOLIC PANEL 2020-02-01 06:50:00 Test Item Value Reference Range Interpretation Comme nts SODIUM (test code = NA) 140 MMOL/L 136-143 N POTASSIUM (test code = K) 3.7 MMOL/L 3.5-5.1 N CHLORIDE (test code = CL) 109 MMOL/L 98-107 H CARBON DIOXIDE (test code = 20 mmol/L 24-31 L CO2) GLUCOSE (test code = GLU) 82 mg/dL 70-104 N BLOOD UREA NITROGEN (test 12.3 MG/DL 7.0-21.0 N code = BUN) GLOMERULAR FILTRATION RATE >=60 max estimate >60 The estimated glomerular (test code = GFR) filtration rate is computed usingpatient ra ce, age (>18), sex, and serum creatinine. If anyof the neede d data elements are mi ssing the Laboratory marce ot compute an estimation of t he glomerular filtration rate . CREATININE (test code = 0.6 mg/dL 0.8-1.5 L CREAT) CALCIUM (test code = CA) 8.8 mg/dL 8.8-10.2 N CBC W/AUTO [id number] 06:40:00 Test Item Value Reference Range Interpretation Comments WHITE BLOOD CELL (test code = 10.3 x10 3/uL 4.8-10.8 N WBC) RED BLOOD CELL (test code = 2.84 x10 6/uL 4.70-6.10 L RBC) HEMOGLOBIN (test code = HGB) 8.4 g/dL 14.5-20 L HEMATOCRIT (test code = HCT) 26.1 % 42.0-52.0 L MEAN CELL VOLUME (test code = 91.9 fL 80.0-94.0 N MCV) MEAN CELL HGB (test code = MCH) 29.6 pg 27-31 N MEAN CELL HGB CONCENTRATION 32.2 G/DL 33-36.5 L (test code = MCHC) RED CELL DISTRIBUTION WIDTH 15.1 % 12.9-16.9 N (test code = RDW) PLATELET COUNT (test code = 182 150-440 N PLT) MEAN PLATELET VOLUME (test code 11.1 fL 8.9-12.4 N = MPV) NEUTROPHIL % (test code = NT%) 64.2 % 42.2-75.2 N LYMPHOCYTE % (test code = LY%) 13.2 % 20.5-51.1 L MONOCYTE % (test code = MO%) 12.2 % 1.7-9.3 H EOSINOPHIL % (test code = EO%) 9.2 % 0.0-7.0 H BASOPHIL % (test code = BA%) 0.7 % 0-2.5 N NEUTROPHIL # (test code = NT#) 6.64 x10 3/uL 1.80-7.70 N LYMPHOCYTE # (test code = LY#) 1.37 x10 3/uL 1.00-4.80 N MONOCYTE # (test code = MO#) 1.26 x10 3/uL 0.00-0.80 H EOSINOPHIL # (test code = EO#) 0.95 x10 3/uL 0.00-0.45 H BASOPHIL # (test code = BA#) 0.07 x10 3/uL 0.0-0.20 N VANCOMYCIN [id number] 13:34:00 Test Item Value Reference Range Interpretation Comments VANCOMYCIN TROUGH (test code = 14.4 mcg/ML 10.0-20.0 N VANCT) Spec Comments: RN PLS DRAW VANCO 30MIN BEFORE DOSE DUE ON 01/30 BASIC METABOLIC [id number] 04:08:00 Test Item Value Reference Range Interpretation Comments SODIUM (test code 138 MMOL/L 136-143 N = NA) POTASSIUM (test 3.7 MMOL/L 3.5-5.1 N code = K) CHLORIDE (test 103 MMOL/L 98-107 N code = CL) CARBON DIOXIDE 24 mmol/L 24-31 N (test code = CO2) GLUCOSE (test code 90 mg/dL 70-104 N = GLU) BLOOD UREA 14.5 MG/DL 7.0-21.0 N NITROGEN (test code = BUN) GLOMERULAR >=60 max >60 The estimated FILTRATION RATE estimate glomerular (test code = GFR) filtration rate is computed usingpatient ra ce, age (>18), sex, and serum creatinin e. If anyof the neede d data elements a re missing the Laboratory marce ot compute an estimation of t he glomerular filtration rate . CREATININE (test 0.7 mg/dL 0.8-1.5 L code = CREAT) CALCIUM (test code 8.8 mg/dL 8.8-10.2 N = CA) [id number] 04:08:00 Test Item Value Reference Range Interpretation Comments MAGNESIUM (test code = MAG) 1.7 mg/dL 1.4-2.6 N CBC W/AUTO [id number] 03:56:00 Test Item Value Reference Range Interpretation Comments WHITE BLOOD CELL (test code = 14.8 x10 3/uL 4.8-10.8 H WBC) RED BLOOD CELL (test code = 3.26 x10 6/uL 4.70-6.10 L RBC) HEMOGLOBIN (test code = HGB) 9.6 g/dL 14.5-20 L HEMATOCRIT (test code = HCT) 30.2 % 42.0-52.0 L MEAN CELL VOLUME (test code = 92.6 fL 80.0-94.0 N MCV) MEAN CELL HGB (test code = 29.4 pg 27-31 N MCH) MEAN CELL HGB CONCENTRATION 31.8 G/DL 33-36.5 L (test code = MCHC) RED CELL DISTRIBUTION WIDTH 15.8 % 12.9-16.9 N (test code = RDW) PLATELET COUNT (test code = 203 150-440 N PLT) MEAN PLATELET VOLUME (test 11.0 fL 8.9-12.4 N code = MPV) NEUTROPHIL % (test code = NT%) 76.3 % 42.2-75.2 H LYMPHOCYTE % (test code = LY%) 9.8 % 20.5-51.1 L MONOCYTE % (test code = MO%) 9.4 % 1.7-9.3 H EOSINOPHIL % (test code = EO%) 3.5 % 0.0-7.0 N BASOPHIL % (test code = BA%) 0.6 % 0-2.5 N NEUTROPHIL # (test code = NT#) 11.31 x10 3/uL 1.80-7.70 H LYMPHOCYTE # (test code = LY#) 1.46 x10 3/uL 1.00-4.80 N MONOCYTE # (test code = MO#) 1.39 x10 3/uL 0.00-0.80 H EOSINOPHIL # (test code = EO#) 0.52 x10 3/uL 0.00-0.45 H BASOPHIL # (test code = BA#) 0.09 x10 3/uL 0.0-0.20 N BASIC METABOLIC [id number] 21:22:00 Test Item Value Reference Range Interpretation Comments SODIUM (test code 135 MMOL/L 136-143 L = NA) POTASSIUM (test 3.8 MMOL/L 3.5-5.1 N code = K) CHLORIDE (test 99 MMOL/L 98-107 N code = CL) CARBON DIOXIDE 23 mmol/L 24-31 L (test code = CO2) GLUCOSE (test code 103 mg/dL 70-104 N = GLU) BLOOD UREA 14.3 MG/DL 7.0-21.0 N NITROGEN (test code = BUN) GLOMERULAR >=60 max >60 The estimated FILTRATION RATE estimate glomerular (test code = GFR) filtration rate is computed usingpatient ra ce, age (>18), sex, and serum creatinin e. If anyof the neede d data elements a re missing the Laboratory marce ot compute an estimation of t he glomerular filtration rate . CREATININE (test 0.7 mg/dL 0.8-1.5 L code = CREAT) CALCIUM (test code 9.1 mg/dL 8.8-10.2 N = CA) RENAL FUNCTION [id number] 21:22:00 Test Item Value Reference Range Interpretation Comments ALBUMIN (test code = ALB) 3.4 G/DL 3.5-5.0 L PHOSPHOROUS (test code = PHOS) 2.0 mg/dL 2.7-4.5 L LIVER FUNCTION [id number] 21:22:00 Test Item Value Reference Range Interpretation Comments TOTAL PROTEIN (test code = PROT) 5.6 g/dL 6.3-8.3 L BILIRUBIN TOTAL (test code = BILT) 0.5 mg/dL 0.2-1.0 N BILIRUBIN DIRECT (test code = <0.2 mg/dL 0.0-0.2 N BILD) SGOT/AST (test code = AST) 9 IU/L 10-34 L SGPT/ALT (test code = ALT) 7 U/L 10-44 L ALKALINE PHOSPHATASE (test code = 63 U/L 45-120 N ALKP) LACTIC [id number] 21:18:00 Test Item Value Reference Range Interpretation Comments LACTIC ACID (test code = LACT) 9.4 mg/dL 4.5-18.0 N PROTHROMBIN [id number] 21:12:00 Test Item Value Reference Range Interpretation Comments PROTHROMBIN TIME 10.8 SECONDS 10.3-12.9 N PATIENT (test code = PTP) INTERNATIONAL 0.96 INR UNIT 0.9-1.11 N The INR is us eful only NORMAL RATIO (test for monit oring code = INR) anticoagulant therapy.It may be unreliable in t he initial phase o f antigoagulation and in unstable patien ts. Indication for Anticoagulation Recommend ed INR 1. Prevention o f venous thomboembolism 2.0-3.0in high -risk patients; treat ment of venousthrombosi s and pulmonary embol ism aftera course o f heparin; preven tion of systemicembolis m in a variety of cond itions, including atria l fibrillation an d prothetic tissu e heart valves, 2. Pros thetic mechanical hear t valves; 2.5-3.5recurren t systemic emboli sm. THROMBOPLASTIN TIME [id number] 21:12:00 Test Item Value Reference Range Interpretation Comments THROMBOPLASTIN TIME 28.6 SECONDS 26.0-35.9 N INTERPRE TATIVE PARTIAL (test code = : erapeutic PTT) range: Unfractionated heparin:47 - 71 seconds Argatroban:1.5 to 3 times the basel ine PTT PROTHROMBIN [id number] 21:09:00 Test Item Value Reference Range Interpretation Comments PROTHROMBIN TIME 10.8 SECONDS 10.3-12.9 N PATIENT (test code = PTP) INTERNATIONAL 0.96 INR UNIT 0.9-1.11 N The INR is us eful only NORMAL RATIO (test for monit oring code = INR) anticoagulant therapy.It may be unreliable in t he initial phase o f antigoagulation and in unstable patien ts. Indication for Anticoagulation Recommend ed INR 1. Prevention o f venous thomboembolism 2.0-3.0in high -risk patients; treat ment of venousthrombosi s and pulmonary embol ism aftera course o f heparin; preven tion of systemicembolis m in a variety of cond itions, including atria l fibrillation an d prothetic tissu e heart valves, 2. Pros thetic mechanical hear t valves; 2.5-3.5recurren t systemic emboli sm. THROMBOPLASTIN TIME [id number] 21:09:00 Test Item Value Reference Range Interpretation Comments THROMBOPLASTIN TIME PARTIAL (test SECONDS 26.0-35.9 code = PTT) CBC W/AUTO [id number] 21:08:00 Test Item Value Reference Range Interpretation Comments WHITE BLOOD CELL (test code = 16.4 x10 3/uL 4.8-10.8 H WBC) RED BLOOD CELL (test code = 3.41 x10 6/uL 4.70-6.10 L RBC) HEMOGLOBIN (test code = HGB) 10.1 g/dL 14.5-20 L HEMATOCRIT (test code = HCT) 31.2 % 42.0-52.0 L MEAN CELL VOLUME (test code = 91.5 fL 80.0-94.0 N MCV) MEAN CELL HGB (test code = 29.6 pg 27-31 N MCH) MEAN CELL HGB CONCENTRATION 32.4 G/DL 33-36.5 L (test code = MCHC) RED CELL DISTRIBUTION WIDTH 15.8 % 12.9-16.9 N (test code = RDW) PLATELET COUNT (test code = 217 150-440 N PLT) MEAN PLATELET VOLUME (test 11.5 fL 8.9-12.4 N code = MPV) NEUTROPHIL % (test code = NT%) 80.5 % 42.2-75.2 H LYMPHOCYTE % (test code = LY%) 7.3 % 20.5-51.1 L MONOCYTE % (test code = MO%) 9.2 % 1.7-9.3 N EOSINOPHIL % (test code = EO%) 2.2 % 0.0-7.0 N BASOPHIL % (test code = BA%) 0.3 % 0-2.5 N NEUTROPHIL # (test code = NT#) 13.19 x10 3/uL 1.80-7.70 H LYMPHOCYTE # (test code = LY#) 1.19 x10 3/uL 1.00-4.80 N MONOCYTE # (test code = MO#) 1.51 x10 3/uL 0.00-0.80 H EOSINOPHIL # (test code = EO#) 0.36 x10 3/uL 0.00-0.45 N BASOPHIL # (test code = BA#) 0.05 x10 3/uL 0.0-0.20 N CBC W/MANUAL [id number] 05:21:00 Test Item Value Reference Range Interpretation Comments WHITE BLOOD CELL (test code = 18.9 x10 3/uL 4.8-10.8 H WBC) RED BLOOD CELL (test code = 4.07 x10 6/uL 4.70-6.10 L RBC) HEMOGLOBIN (test code = HGB) 12.1 g/dL 14.5-20 L HEMATOCRIT (test code = HCT) 36.8 % 42.0-52.0 L MEAN CELL VOLUME (test code = 90.4 fL 80.0-94.0 N MCV) MEAN CELL HGB (test code = MCH) 29.7 pg 27-31 N MEAN CELL HGB CONCENTRATION 32.9 G/DL 33-36.5 L (test code = MCHC) RED CELL DISTRIBUTION WIDTH 15.8 % 12.9-16.9 N (test code = RDW) PLATELET COUNT (test code = 228 150-440 N PLT) MEAN PLATELET VOLUME (test code 10.9 fL 8.9-12.4 N = MPV) TOTAL CELLS COUNTED (test code 100 #CELLS = TCC) SEGMENTED NEUTROPHILS (test 87 % 43-65 H code = SEG) LYMPHOCYTE (test code = LYMPH) 5 % 20.5-45.5 L MONOCYTE (test code = MON) 8 % 5.5-11.7 N PLATELET ESTIMATE (test code = ADEQUATE ADEQUATE PLTEST) PLATELET MORPHOLOGY (test code NORMAL NORMAL = PLTMORPH) RENAL FUNCTION [id number] 05:20:00 Test Item Value Reference Range Interpretation Comments SODIUM (test code = 138 MMOL/L 136-143 N NA) POTASSIUM (test 4.5 MMOL/L 3.5-5.1 N code = K) CHLORIDE (test code 99 MMOL/L 98-107 N = CL) CARBON DIOXIDE 25 mmol/L 24-31 N (test code = CO2) GLUCOSE (test code 129 mg/dL 70-104 H = GLU) BLOOD UREA NITROGEN 12.7 MG/DL 7.0-21.0 N (test code = BUN) GLOMERULAR >=60 max >60 The estimated FILTRATION RATE estimate glomerular (test code = GFR) filtration rate is computed usingpatient ra ce, age (>18), sex, and serum creatinin e. If anyof the ne eded data elements a re missing the Laboratory marce ot compute an estimation of t he glomerular filtration rate . CREATININE (test 0.8 mg/dL 0.8-1.5 N code = CREAT) ALBUMIN (test code 3.6 G/DL 3.5-5.0 N = ALB) CALCIUM (test code 9.4 mg/dL 8.8-10.2 N = CA) PHOSPHOROUS (test 2.5 mg/dL 2.7-4.5 L code = PHOS) [id number] 05:20:00 Test Item Value Reference Range Interpretation Comments MAGNESIUM (test code = MAG) 1.8 mg/dL 1.4-2.6 N CBC W/MANUAL [id number] 04:48:00 Test Item Value Reference Range Interpretation Comments WHITE BLOOD CELL (test code = 18.9 x10 3/uL 4.8-10.8 H WBC) RED BLOOD CELL (test code = 4.07 x10 6/uL 4.70-6.10 L RBC) HEMOGLOBIN (test code = HGB) 12.1 g/dL 14.5-20 L HEMATOCRIT (test code = HCT) 36.8 % 42.0-52.0 L MEAN CELL VOLUME (test code = 90.4 fL 80.0-94.0 N MCV) MEAN CELL HGB (test code = MCH) 29.7 pg 27-31 N MEAN CELL HGB CONCENTRATION 32.9 G/DL 33-36.5 L (test code = MCHC) RED CELL DISTRIBUTION WIDTH 15.8 % 12.9-16.9 N (test code = RDW) PLATELET COUNT (test code = 228 150-440 N PLT) MEAN PLATELET VOLUME (test code 10.9 fL 8.9-12.4 N = MPV) TOTAL CELLS COUNTED (test code #CELLS = TCC) SEGMENTED NEUTROPHILS (test % 43-65 code = SEG) LYMPHOCYTE (test code = LYMPH) % 20.5-45.5 CBC W/MANUAL [id number] 04:48:00 Test Item Value Reference Range Interpretation Comments WHITE BLOOD CELL (test code = 18.9 x10 3/uL 4.8-10.8 H WBC) RED BLOOD CELL (test code = 4.07 x10 6/uL 4.70-6.10 L RBC) HEMOGLOBIN (test code = HGB) 12.1 g/dL 14.5-20 L HEMATOCRIT (test code = HCT) 36.8 % 42.0-52.0 L MEAN CELL VOLUME (test code = 90.4 fL 80.0-94.0 N MCV) MEAN CELL HGB (test code = MCH) 29.7 pg 27-31 N MEAN CELL HGB CONCENTRATION 32.9 G/DL 33-36.5 L (test code = MCHC) RED CELL DISTRIBUTION WIDTH 15.8 % 12.9-16.9 N (test code = RDW) PLATELET COUNT (test code = 228 150-440 N PLT) MEAN PLATELET VOLUME (test code 10.9 fL 8.9-12.4 N = MPV) TOTAL CELLS COUNTED (test code #CELLS = TCC) SEGMENTED NEUTROPHILS (test % 43-65 code = SEG) LYMPHOCYTE (test code = LYMPH) % 20.5-45.5 SURGICAL [id number] 12:52:00 RUN DATE: 01/29/20 [facility] - LAB PAGE 1 RUN TIME: 1252 Specimen Inquiry RUN USER: INTERFACE PATIENT: OTONIEL HENDERSON LOC: P.7S POD C U #: [id number] AGE/SX: 59/M ROOM: [facility] RE01/25/20REG DR: Cristopher Doty MD : 64 BED: 1 DIS: STATUS: ADM IN TLOC: SPEC #: [id number] RECD: 01/28/20 STATUS: FAINA REFabiana #: [id number] SIMON: 01/28/[address]: Cristopher Doty MD ENTERED: 01/28/20 SP TYPE: SURG OTHR DR: Roxanna Primary or Family Physician Mio Gilbert MD No,DocORDERED: PATHGM3, PATHGM5/2, PATH SPEC, H E STAIN HISTOLOGY: TISSUE ID BLK PCS PARISH LEV / PROCEDURE DISPOSITION ____ ___ ___ ___ ___ COLON SEG NTUMR A 18 1 TISSUES: A. COLON SEGMENTAL [id number] - Sigmoid Colon Proximal Rectum Anastomatic Donuts, [...] CONTINUED ON NEXT PAGE RUN DATE: 01/29/20 [facility] - LAB PAGE 2 RUN TIME: 1252 Specimen Inquiry RUN USER: INTERFACE SPEC #: [id number] PATIENT: OTONIEL HENDERSON #[id number] (Continued) GROSS DESCRIPTION (Continued) 2.4 x 2 [...] A16-A18: Ring-shaped donut #2 (with blue sutures) LABORER HOISTING/th MICROSCOPIC DESCRIPTION Microscopic examination performed. Signed SIGNATURE ON FILE Nita Ashford 01/29/20 1252 END OF REPORT BASIC METABOLIC [id number] 08:29:00 Test Item Value Reference Range Interpretation Comments SODIUM (test code 139 MMOL/L 136-143 N = NA) POTASSIUM (test 4.0 MMOL/L 3.5-5.1 N code = K) CHLORIDE (test 100 MMOL/L 98-107 N code = CL) CARBON DIOXIDE 23 mmol/L 24-31 L (test code = CO2) GLUCOSE (test code 138 mg/dL 70-104 H = GLU) BLOOD UREA 7.5 MG/DL 7.0-21.0 N NITROGEN (test code = BUN) GLOMERULAR >=60 max >60 The estimated FILTRATION RATE estimate glomerular (test code = GFR) filtration rate is computed usingpatient ra ce, age (>18), sex, and serum creatinin e. If anyof the neede d data elements a re missing the Laboratory marce ot compute an estimation of t he glomerular filtration rate . CREATININE (test 0.8 mg/dL 0.8-1.5 N code = CREAT) CALCIUM (test code 9.2 mg/dL 8.8-10.2 N = CA) [id number] 08:29:00 Test Item Value Reference Range Interpretation Comments MAGNESIUM (test code = MAG) 1.3 mg/dL 1.4-2.6 L CBC W/AUTO [id number] 08:04:00 Test Item Value Reference Range Interpretation Comments WHITE BLOOD CELL (test code = 20.3 x10 3/uL 4.8-10.8 H WBC) RED BLOOD CELL (test code = 4.65 x10 6/uL 4.70-6.10 L RBC) HEMOGLOBIN (test code = HGB) 13.6 g/dL 14.5-20 L HEMATOCRIT (test code = HCT) 42.3 % 42.0-52.0 N MEAN CELL VOLUME (test code = 91.0 fL 80.0-94.0 N MCV) MEAN CELL HGB (test code = 29.2 pg 27-31 N MCH) MEAN CELL HGB CONCENTRATION 32.2 G/DL 33-36.5 L (test code = MCHC) RED CELL DISTRIBUTION WIDTH 15.6 % 12.9-16.9 N (test code = RDW) PLATELET COUNT (test code = 248 150-440 N PLT) MEAN PLATELET VOLUME (test 10.6 fL 8.9-12.4 N code = MPV) NEUTROPHIL % (test code = NT%) 88.7 % 42.2-75.2 H LYMPHOCYTE % (test code = LY%) 3.9 % 20.5-51.1 L MONOCYTE % (test code = MO%) 6.8 % 1.7-9.3 N EOSINOPHIL % (test code = EO%) 0.0 % 0.0-7.0 N BASOPHIL % (test code = BA%) 0.2 % 0-2.5 N NEUTROPHIL # (test code = NT#) 17.98 x10 3/uL 1.80-7.70 H LYMPHOCYTE # (test code = LY#) 0.79 x10 3/uL 1.00-4.80 L MONOCYTE # (test code = MO#) 1.38 x10 3/uL 0.00-0.80 H EOSINOPHIL # (test code = EO#) 0.01 x10 3/uL 0.00-0.45 N BASOPHIL # (test code = BA#) 0.04 x10 3/uL 0.0-0.20 N Novel Coronavirus 2018 [id number] 14:20:00 Test Item Value Reference Range Interpretation Comments Novel Coronavirus NEGATIVE Positive r esults are 2019 nCoV (test indicative o f the presence code = COVID19) [id number] RNA, clinical correlation wit h patient historyand othe r diagnostic info rmation is necessary to determinepatien t infection status. Positiv e results do not rule out bacterial infection or co -infection with other viru ses. Negative result s do not preclude SARS-C oV-2 infection andsh ould not be used as the viviana e basis for patient managementdecis ions. Negative result s must be combined with otherclinical observations, p atient history, and epidemiological information . Detection of SARS-CoV-2 RNA may be affe cted bysample collec tion methods, storag e conditions, and /or stageof infection. Vi ral RNA mutations, vacc inations, antiviraltherap eutics, antibiotics, chemotherapeuti c orimmunosuppres radha drugs have not been e valuated for effectson d etection. Results are for the identification of SARS-CoV-2 RNA usingthe [employer] M2000 Sy stem under the FDA Emergen cy UseAuthorizatio n. The testing is perf ormed by personneltrabryan d in the procedures for the [employer] M2000 molecular diagnostic SARS-CoV-2 assa y in vitro. NEGATIVE Value reported toFirst Name: SAVITA Last Name:[facility] RESULTS READ BACK AND VERIFIEDbyP.LAB.RS, on 01/26/20, @ 1934.- XR ABDOMEN [id number] 14:18:00Patient Name: OTONIEL HENDERSON Unit No: [id number] EXAMS: CPT CODE: [id number] XR ABDOMEN 1V [id number] Abdomen one view supine 01/28/2020 CLINICAL INDICATION: [...] Velez MD; Cristopher Doty MD Technologist: Jordan Dudley Fluoro Time: DAP (Gy m2): Air Kerma (mGy): Trscr Dt/Tm: 01/28/2020 (1418) by:[email or web address] Printed Date/Time: 01/28/2020 (1421) Name: OTONIEL HENDERSON [facility] Phys: José Antonio Zamora MD [address] : 1960 Age: 59 Sex: [place] [address] Loc: [id number] 1 Exam Date: 01/28/2020 Status: ADM IN PH: FAX: PAGE 1 Signed ReportCOMPREHENSIVE METABOLIC [id number] 07:39:00 Test Item Value Reference Range Interpretation Comments SODIUM (test code = 136 MMOL/L 136-143 N NA) POTASSIUM (test 4.4 MMOL/L 3.5-5.1 N code = K) CHLORIDE (test code 102 MMOL/L 98-107 N = CL) CARBON DIOXIDE 23 mmol/L 24-31 L (test code = CO2) GLUCOSE (test code 94 mg/dL 70-104 N = GLU) BLOOD UREA NITROGEN 6.5 MG/DL 7.0-21.0 L (test code = BUN) GLOMERULAR >=60 max >60 The estimated FILTRATION RATE estimate glomerular (test code = GFR) filtration rate is computed usingpatient ra ce, age (>18), sex, and serum creatinin e. If anyof the ne eded data elements a re missing the Laboratory marce ot compute an estimation of t he glomerular filtration rate . CREATININE (test 0.7 mg/dL 0.8-1.5 L code = CREAT) TOTAL PROTEIN (test 5.8 g/dL 6.3-8.3 L code = PROT) ALBUMIN (test code 3.7 G/DL 3.5-5.0 N = ALB) CALCIUM (test code 9.7 mg/dL 8.8-10.2 N = CA) BILIRUBIN TOTAL 0.4 mg/dL 0.2-1.0 N (test code = BILT) SGOT/AST (test code 14 IU/L 10-34 N = AST) SGPT/ALT (test code 10 U/L 10-44 N = ALT) ALKALINE 77 U/L 45-120 N PHOSPHATASE (test code = ALKP) [id number] 07:39:00 Test Item Value Reference Range Interpretation Comments MAGNESIUM (test code = MAG) 1.4 mg/dL 1.4-2.6 N CBC W/AUTO [id number] 07:12:00 Test Item Value Reference Range Interpretation Comments WHITE BLOOD CELL (test code = 12.7 x10 3/uL 4.8-10.8 H WBC) RED BLOOD CELL (test code = 4.52 x10 6/uL 4.70-6.10 L RBC) HEMOGLOBIN (test code = HGB) 13.3 g/dL 14.5-20 L HEMATOCRIT (test code = HCT) 40.4 % 42.0-52.0 L MEAN CELL VOLUME (test code = 89.4 fL 80.0-94.0 N MCV) MEAN CELL HGB (test code = MCH) 29.4 pg 27-31 N MEAN CELL HGB CONCENTRATION 32.9 G/DL 33-36.5 L (test code = MCHC) RED CELL DISTRIBUTION WIDTH 15.9 % 12.9-16.9 N (test code = RDW) PLATELET COUNT (test code = 249 150-440 N PLT) MEAN PLATELET VOLUME (test code 10.8 fL 8.9-12.4 N = MPV) NEUTROPHIL % (test code = NT%) 78.0 % 42.2-75.2 H LYMPHOCYTE % (test code = LY%) 9.4 % 20.5-51.1 L MONOCYTE % (test code = MO%) 7.5 % 1.7-9.3 N EOSINOPHIL % (test code = EO%) 4.1 % 0.0-7.0 N BASOPHIL % (test code = BA%) 0.8 % 0-2.5 N NEUTROPHIL # (test code = NT#) 9.94 x10 3/uL 1.80-7.70 H LYMPHOCYTE # (test code = LY#) 1.20 x10 3/uL 1.00-4.80 N MONOCYTE # (test code = MO#) 0.95 x10 3/uL 0.00-0.80 H EOSINOPHIL # (test code = EO#) 0.52 x10 3/uL 0.00-0.45 H BASOPHIL # (test code = BA#) 0.10 x10 3/uL 0.0-0.20 N [id number] 15:08:00 Test Item Value Reference Range Interpretation Comments LITHIUM (test 0.5 mmol/L 0.6-1.2 L code = LITH) Detection Limit = 0.1 <0.1 indicate s None DetectedPerform ed At: [facility] [address] [id number] Jacky So MD Ph:[phone] [id number] 15:08:00 Test Item Value Reference Range Interpretation Comments LITHIUM (test 0.5 mmol/L 0.6-1.2 L code = LITH) Detection Limit = 0.1 <0.1 indicate s None DetectedPerform ed At: [facility] [address] [id number] Kyle L MD Ph:[phone] Novel Coronavirus 2018 [id number] 07:11:00 Test Item Value Reference Range Interpretation Comments Novel Coronavirus 2019 nCoV (test NEGATIVE code = COVID19) NEGATIVE Value reported toFirst Name: SAVITA Last Name:[facility] RESULTS READ BACK AND VERIFIEDbyP.LAB.RS, on 01/26/20, @ 1934.COMPREHENSIVE METABOLIC PANEL 2020-01-27 04:39:00 Test Item Value Reference Range Interpretation Comments SODIUM (test code = 137 MMOL/L 136-143 N NA) POTASSIUM (test 4.2 MMOL/L 3.5-5.1 N code = K) CHLORIDE (test code 103 MMOL/L 98-107 N = CL) CARBON DIOXIDE 25 mmol/L 24-31 N (test code = CO2) GLUCOSE (test code 87 mg/dL 70-104 N = GLU) BLOOD UREA NITROGEN 5.5 MG/DL 7.0-21.0 L (test code = BUN) GLOMERULAR >=60 max >60 The estimated FILTRATION RATE estimate glomerular (test code = GFR) filtration rate is computed usingpatient ra ce, age (>18), sex, and serum creatinin e. If anyof the ne eded data elements a re missing the Laboratory marce ot compute an estimation of t he glomerular filtration rate . CREATININE (test 0.7 mg/dL 0.8-1.5 L code = CREAT) TOTAL PROTEIN (test 6.4 g/dL 6.3-8.3 N code = PROT) ALBUMIN (test code 3.7 G/DL 3.5-5.0 N = ALB) CALCIUM (test code 9.4 mg/dL 8.8-10.2 N = CA) BILIRUBIN TOTAL 0.3 mg/dL 0.2-1.0 N (test code = BILT) SGOT/AST (test code 12 IU/L 10-34 N = AST) SGPT/ALT (test code 9 U/L 10-44 L = ALT) ALKALINE 76 U/L 45-120 N PHOSPHATASE (test code = ALKP) CBC W/AUTO [id number] 04:21:00 Test Item Value Reference Range Interpretation Comments WHITE BLOOD CELL (test code = 9.1 x10 3/uL 4.8-10.8 N WBC) RED BLOOD CELL (test code = 4.40 x10 6/uL 4.70-6.10 L RBC) HEMOGLOBIN (test code = HGB) 13.0 g/dL 14.5-20 L HEMATOCRIT (test code = HCT) 40.0 % 42.0-52.0 L MEAN CELL VOLUME (test code = 90.9 fL 80.0-94.0 N MCV) MEAN CELL HGB (test code = MCH) 29.5 pg 27-31 N MEAN CELL HGB CONCENTRATION 32.5 G/DL 33-36.5 L (test code = MCHC) RED CELL DISTRIBUTION WIDTH 16.5 % 12.9-16.9 N (test code = RDW) PLATELET COUNT (test code = 240 150-440 N PLT) MEAN PLATELET VOLUME (test code 10.7 fL 8.9-12.4 N = MPV) NEUTROPHIL % (test code = NT%) 63.9 % 42.2-75.2 N LYMPHOCYTE % (test code = LY%) 17.4 % 20.5-51.1 L MONOCYTE % (test code = MO%) 8.9 % 1.7-9.3 N EOSINOPHIL % (test code = EO%) 8.3 % 0.0-7.0 H BASOPHIL % (test code = BA%) 1.2 % 0-2.5 N NEUTROPHIL # (test code = NT#) 5.84 x10 3/uL 1.80-7.70 N LYMPHOCYTE # (test code = LY#) 1.59 x10 3/uL 1.00-4.80 N MONOCYTE # (test code = MO#) 0.81 x10 3/uL 0.00-0.80 H EOSINOPHIL # (test code = EO#) 0.76 x10 3/uL 0.00-0.45 H BASOPHIL # (test code = BA#) 0.11 x10 3/uL 0.0-0.20 N - CT ABD PELVIS [id number] 09:58:00Patient Name: OTONIEL HENDERSON Unit No: [id number] EXAMS: CPT CODE: [id number] CT ABD PELVIS W/CONT 88624 CT abdomen and pelvis with IV contrast. [...] renal cyst. Additional findings as above. Name: OTONIEL HENDERSON [facility] Phys: VARSHA.Kole - Norbert William MD [address] : 1960 Age: 59 Sex: [place] [address] Loc: [id number] 1 Exam Date: 01/26/2020 Status: ADM IN PH: FAX: PAGE 1 Signed Report (CONTINUED) Patient Name: OTONIEL HENDERSON Unit No: [id number] EXAMS: CPT CODE: [id number] CT ABD PELVIS W/CONT 83710 <Continued> at 0958 Reported and signed by: OTONIEL ROSSI M.D. CC: Cristopher Doty MD; Norbert William MD Technologist: ANTONIO Martin(Jeannine)(CT) CTDI: 11.68 DLP: 602 Trscr Dt/Tm: 01/26/2020 (0958) by:[email or web address] Printed Date/Time: 01/26/2020 (1001)Name: OTONIEL HENDERSON [facility] Phys: VARSHA.Kole - Norbert William MD [address] : 1960 Age: 59 Sex: [place] [address] Loc: [id number] 1 Exam Date: 01/26/2020 Status: ADM IN PH: FAX: PAGE 2 Signed ReportCOMPREHENSIVE METABOLIC [id number] 05:50:00 Test Item Value Reference Range Interpretation Comments SODIUM (test code = 137 MMOL/L 136-143 N NA) POTASSIUM (test 4.8 MMOL/L 3.5-5.1 N code = K) CHLORIDE (test code 103 MMOL/L 98-107 N = CL) CARBON DIOXIDE 23 mmol/L 24-31 L (test code = CO2) GLUCOSE (test code 92 mg/dL 70-104 N = GLU) BLOOD UREA NITROGEN 8.6 MG/DL 7.0-21.0 N (test code = BUN) GLOMERULAR >=60 max >60 The estimated FILTRATION RATE estimate glomerular (test code = GFR) filtration rate is computed usingpatient ra ce, age (>18), sex, and serum creatinin e. If anyof the ne eded data elements a re missing the Laboratory marce ot compute an estimation of t he glomerular filtration rate . CREATININE (test 0.8 mg/dL 0.8-1.5 N code = CREAT) TOTAL PROTEIN (test 5.5 g/dL 6.3-8.3 L code = PROT) ALBUMIN (test code 3.3 G/DL 3.5-5.0 L = ALB) CALCIUM (test code 8.8 mg/dL 8.8-10.2 N = CA) BILIRUBIN TOTAL 0.2 mg/dL 0.2-1.0 N (test code = BILT) SGOT/AST (test code 12 IU/L 10-34 N = AST) SGPT/ALT (test code 7 U/L 10-44 L = ALT) ALKALINE 74 U/L 45-120 N PHOSPHATASE (test code = ALKP) CBC W/AUTO [id number] 04:55:00 Test Item Value Reference Range Interpretation Comments WHITE BLOOD CELL (test code = 8.1 x10 3/uL 4.8-10.8 N WBC) RED BLOOD CELL (test code = 4.26 x10 6/uL 4.70-6.10 L RBC) HEMOGLOBIN (test code = HGB) 12.7 g/dL 14.5-20 L HEMATOCRIT (test code = HCT) 39.3 % 42.0-52.0 L MEAN CELL VOLUME (test code = 92.3 fL 80.0-94.0 N MCV) MEAN CELL HGB (test code = MCH) 29.8 pg 27-31 N MEAN CELL HGB CONCENTRATION 32.3 G/DL 33-36.5 L (test code = MCHC) RED CELL DISTRIBUTION WIDTH 16.7 % 12.9-16.9 N (test code = RDW) PLATELET COUNT (test code = 236 150-440 N PLT) MEAN PLATELET VOLUME (test code 10.6 fL 8.9-12.4 N = MPV) NEUTROPHIL % (test code = NT%) 47.4 % 42.2-75.2 N LYMPHOCYTE % (test code = LY%) 28.5 % 20.5-51.1 N MONOCYTE % (test code = MO%) 10.8 % 1.7-9.3 H EOSINOPHIL % (test code = EO%) 11.2 % 0.0-7.0 H BASOPHIL % (test code = BA%) 1.9 % 0-2.5 N NEUTROPHIL # (test code = NT#) 3.82 x10 3/uL 1.80-7.70 N LYMPHOCYTE # (test code = LY#) 2.30 x10 3/uL 1.00-4.80 N MONOCYTE # (test code = MO#) 0.87 x10 3/uL 0.00-0.80 H EOSINOPHIL # (test code = EO#) 0.90 x10 3/uL 0.00-0.45 H BASOPHIL # (test code = BA#) 0.15 x10 3/uL 0.0-0.20 N COMPREHENSIVE METABOLIC [id number] 18:44:00 Test Item Value Reference Range Interpretation Comments SODIUM (test code = 137 MMOL/L 136-143 N NA) POTASSIUM (test 4.2 MMOL/L 3.5-5.1 N code = K) CHLORIDE (test code 100 MMOL/L 98-107 N = CL) CARBON DIOXIDE 24 mmol/L 24-31 N (test code = CO2) GLUCOSE (test code 116 mg/dL 70-104 H = GLU) BLOOD UREA NITROGEN 9.0 MG/DL 7.0-21.0 N (test code = BUN) GLOMERULAR >=60 max >60 The estimated FILTRATION RATE estimate glomerular (test code = GFR) filtration rate is computed usingpatient ra ce, age (>18), sex, and serum creatinin e. If anyof the ne eded data elements a re missing the Laboratory marce ot compute an estimation of t he glomerular filtration rate . CREATININE (test 0.9 mg/dL 0.8-1.5 N code = CREAT) TOTAL PROTEIN (test 6.6 g/dL 6.3-8.3 N code = PROT) ALBUMIN (test code 3.8 G/DL 3.5-5.0 N = ALB) CALCIUM (test code 9.3 mg/dL 8.8-10.2 N = CA) BILIRUBIN TOTAL 0.2 mg/dL 0.2-1.0 N (test code = BILT) SGOT/AST (test code 13 IU/L 10-34 N = AST) SGPT/ALT (test code 10 U/L 10-44 N = ALT) ALKALINE 77 U/L 45-120 N PHOSPHATASE (test code = ALKP) PROTHROMBIN [id number] 18:32:00 Test Item Value Reference Range Interpretation Comments PROTHROMBIN TIME 10.4 SECONDS 10.3-12.9 N PATIENT (test code = PTP) INTERNATIONAL 0.92 INR UNIT 0.9-1.11 N The INR is us eful only NORMAL RATIO (test for monit oring code = INR) anticoagulant therapy.It may be unreliable in t he initial phase o f antigoagulation and in unstable patien ts. Indication for Anticoagulation Recommend ed INR 1. Prevention o f venous thomboembolism 2.0-3.0in high -risk patients; treat ment of venousthrombosi s and pulmonary embol ism aftera course o f heparin; preven tion of systemicembolis m in a variety of cond itions, including atria l fibrillation an d prothetic tissu e heart valves, 2. Pros thetic mechanical hear t valves; 2.5-3.5recurren t systemic emboli sm. CBC W/AUTO [id number] 18:26:00 Test Item Value Reference Range Interpretation Comments WHITE BLOOD CELL (test code = 8.5 x10 3/uL 4.8-10.8 N WBC) RED BLOOD CELL (test code = 4.23 x10 6/uL 4.70-6.10 L RBC) HEMOGLOBIN (test code = HGB) 12.6 g/dL 14.5-20 L HEMATOCRIT (test code = HCT) 39.0 % 42.0-52.0 L MEAN CELL VOLUME (test code = 92.2 fL 80.0-94.0 N MCV) MEAN CELL HGB (test code = MCH) 29.8 pg 27-31 N MEAN CELL HGB CONCENTRATION 32.3 G/DL 33-36.5 L (test code = MCHC) RED CELL DISTRIBUTION WIDTH 16.7 % 12.9-16.9 N (test code = RDW) PLATELET COUNT (test code = 259 150-440 N PLT) MEAN PLATELET VOLUME (test code 10.5 fL 8.9-12.4 N = MPV) NEUTROPHIL % (test code = NT%) 51.7 % 42.2-75.2 N LYMPHOCYTE % (test code = LY%) 25.1 % 20.5-51.1 N MONOCYTE % (test code = MO%) 12.3 % 1.7-9.3 H EOSINOPHIL % (test code = EO%) 9.6 % 0.0-7.0 H BASOPHIL % (test code = BA%) 1.2 % 0-2.5 N NEUTROPHIL # (test code = NT#) 4.40 x10 3/uL 1.80-7.70 N LYMPHOCYTE # (test code = LY#) 2.14 x10 3/uL 1.00-4.80 N MONOCYTE # (test code = MO#) 1.05 x10 3/uL 0.00-0.80 H EOSINOPHIL # (test code = EO#) 0.82 x10 3/uL 0.00-0.45 H BASOPHIL # (test code = BA#) 0.10 x10 3/uL 0.0-0.20 N
[2020-03-27] MEDS ORDERED: ONDANSETRON 4 MG/2 ML VIAL ONE (15:35)
[2020-03-27] MEDS ORDERED: MORPHINE 4 MG/ML SYR ONE (15:35)
[2020-03-27 15:49] LABS: Absolute Lymphocytes (CBC) 2.1 K/uL (0.7-4.9); Basophils % 0.8 % (0-1.3); Hematocrit 39.9 % (39.6-49.0); Lymphocytes % 23.3 % (15.3-44.8); MPV 9.4 fL (7.6-11.3); RBC Red Blood Cell Count 4.56 M/uL (4.33-5.43)
[2020-03-27 16:02] LABS: ALT/SGPT 24 U/L (12-78); AST/SGOT 20 U/L (15-37); Albumin 3.6 g/dL (3.4-5.0); Alkaline Phosphatase 100 U/L (45-117); BUN Blood Urea Nitrogen 10 mg/dL (7-18); Bicarbonate 27 mmol/L (21-32); Bilirubin Direct < 0.1 mg/dL (0-0.2); Bilirubin Total 0.2 mg/dL (0.2-1.0); Glucose Level 94 mg/dL (74-106); Lipase 233 U/L (73-393); Potassium 3.5 mmol/L (3.5-5.1); Protein, Total 7.3 g/dL (6.4-8.2); Sodium Level 142 mmol/L (136-145)
--- NOTE | 2020-03-27 17:40 | RAD REPORT ---
EXAM DESCRIPTION: CTAbdomen Pelvis W Contrast - 03/27/2020 5:08 pm CLINICAL HISTORY: Abdominal pain. ABD PAIN COMPARISON: Abdomen Pelvis W Contrast dated 02/09/2020; Abdomen Pelvis W Contrast dated 01/08/2020 ; Abdomen Pelvis W Contrast dated 01/03/2020; Abdomen Pelvis W Contrast dated 12/29/2019 TECHNIQUE: Biphasic CT imaging of the abdomen and pelvis was performed with 100 ml non-ionic IV cont rast. All CT scans are performed using dose optimization technique as appropriate and may include automated exposure control or mA/KV adjustment according to patient size. FINDINGS: The lung bases are clear. The liver, spleen, pancreas, adrenal glands are within normal limits. Bilateral caliceal stones witho ut hydronephrosis. 24 mm cyst inferior right kidney. No bowel obstruction, free air, free fluid or abscess. Postsurgical changes involve the sigmoid colon and small bowel. The appendix is normal. Small fat containing bilateral inguinal hernias. No evidenc e of significant lymphadenopathy. Prominent lower lumbar degenerative changes are present greatest at L5-S1 with vacuum disc degenerati on. IMPRESSION: Bilateral nephrolithiasis without hydronephrosis.
--- NOTE | 2020-03-27 17:44 | EDPHYS ---
Physician Documentation [facility] Name: Gregory Dumont Age: 59 yrs Sex: Male : 1960 Arrival Date: 03/27/2020 Time: 14:08 Bed 13 Private MD: ED Physician Mick Arshad HPI: 03/27 15:05 This 59 yrs old Male presents to ER via Ambulatory with complaints of m Abdominal Pain. 15:05 The patient presents with abdominal pain in the lower abdomen, in the left lower jmm quadrant. Onset: The symptoms/episode began/occurred gradually, today. The symptoms do not radiate. Associated signs and symptoms: Pertinent negatives: nausea and vomiting, diarrhea, fever, testicular pain. The symptoms are described as achy. The patient has experienced similar episodes in the past, several times. Historical: - Allergies: 14:21 NKA; hb - PMHx: 14:21 Bipolar disorder; Diverticulitis; HEP C; HYPOGLYCEMIA; Irregular heart rate; CVA; hb ADD/ADHD; - PSHx: 14:21 abdominal; hb - Immunization history:: Flu vaccine is not up to date. - Social history:: Smoking status: Patient reports the use of cigarette tobacco products, smokes two packs cigarettes per day. Patient/guardian denies using street drugs. ROS: 15:05 Constitutional: Negative for fever, chills, and weight loss, Cardiovascular: Negative jmm for chest pain, palpitations, and edema, Respiratory: Negative for shortness of breath, cough, wheezing, and pleuritic chest pain. 15:05 Neuro: Negative for headache, weakness, numbness, tingling, and seizure. 15:05 Abdomen/GI: Positive for abdominal pain. 15:05 All other systems are negative. Exam: 15:05 Constitutional: This is a well developed, well nourished patient who is awake, alert, jmm and in no acute distress. Head/Face: atraumatic. Eyes: EOMI, no conjunctival erythema appreciated ENT: Moist Mucus Membranes Neck: Trachea midline, Supple Chest/axilla: Normal chest wall appearance and motion. Cardiovascular: Regular rate and rhythm. No edema appreciated Respiratory: Normal respirations, no respiratory distress appreciated Abdomen/GI: Non distended, soft Back: Normal ROM Skin: General appearance color normal MS/ Extremity: Moves all extremities, no obvious deformities appreciated, no edema noted to the lower extremities Neuro: Awake and alert, normal gait Psych: Behavior is normal, Mood is normal, Patient is cooperative and pleasant 15:05 Abdomen/GI: Inspection: abdomen appears normal, Bowel sounds: normal, Palpation: soft, mild abdominal tenderness, in the left upper quadrant and left lower quadrant. Vital Signs: 14:22 BP 136 / 94; Pulse 82; Resp 18; Temp 97.9; Pulse Ox 98% ; Pain 10/10; hb 17:00 BP 160 / 98; Pulse 73; Resp 18; Pulse Ox 98% on R/A; vc 17:45 BP 169 / 102; Pulse 71; Resp 18; Pulse Ox 99% on R/A; vc MDM: 15:04 Patient medically screened. [facility] 17:42 Data reviewed: vital signs, nurses notes. Counseling: I had a detailed discussion with petey the patient and/or guardian regarding: the historical points, exam findings, and any diagnostic results supporting the discharge/admit diagnosis, radiology results, the need for outpatient follow up, to return to the emergency department if symptoms worsen or persist or if there are any questions or concerns that arise at home. ED course: CT negative for an acute process. Patient advised to follow up with pcp and otherwise given strict return precautions. Patient understood and agrees with the plan of care. . 03/27 15:05 Order name: Basic Metabolic Panel; Complete Time: 16:05 [facility] 03/27 15:05 Order name: CBC with Diff; Complete Time: 16:05 [facility] 03/27 15:05 Order name: Hepatic Function; Complete Time: 16:05 [facility] 03/27 15:05 Order name: Lipase; Complete Time: 16:05 [facility] 03/27 15:05 Order name: CT Abd/Pelvis - IV Contrast Only; Complete Time: 17:46 [facility] 03/27 15:05 Order name: IV Saline Lock; Complete Time: 15:48 [facility] 03/27 15:05 Order name: Labs collected and sent; Complete Time: 15:48 [facility] 03/27 15:05 Order name: Urine Dipstick-Ancillary (obtain specimen); Complete Time: 16:35 [facility] Administered Medications: 15:51 Drug: morphine 4 mg Route: IVP; Site: left antecubital; vc 17:46 Follow up: Response: No adverse reaction vc 15:51 Drug: Zofran (Ondansetron) 4 mg Route: IVP; Site: left antecubital; vc 17:46 Follow up: Response: No adverse reaction vc Disposition: 18:44 Co-signature as Attending Physician, Mick Arshad MD I agree with the assessment and kdr plan of care. Disposition: 03/27/20 17:43 Discharged to Home. Impression: Lower abdominal pain, unspecified. - Condition is Stable. - Discharge Instructions: Abdominal Pain, Adult. - Prescriptions for Bentyl 20 mg Oral Tablet - take 2 tablet by ORAL route every 6 hours As needed; 40 tablet. - Medication Reconciliation Form, Thank You Letter, Antibiotic Education, Prescription Opioid Use form. - Follow up: Private Physician; When: 2 - 3 days; Reason: Recheck today's complaints, Continuance of care, Re-evaluation by your physician. Signatures: Dispatcher [employer] EDMS Mick Arshad MD MD kdr Mickail, Joel, PA PA jmm Baxter, Heather, RN RN Prachi Mak RN RN vc Corrections: (The following items were deleted from the chart) 18:38 17:43 03/27/2020 17:43 Discharged to Home. Impression: Lower abdominal pain, vc unspecified. Condition is Stable. Forms are Medication Reconciliation Form, Thank You Letter, Antibiotic Education, Prescription Opioid Use. Follow up: Private Physician; When: 2 - 3 days; Reason: Recheck today's complaints, Continuance of care, Re-evaluation by your physician. petey
--- NOTE | 2020-03-27 17:44 | ER ---
Nurse's Notes [facility] Name: Gregory Dumont Age: 59 yrs Sex: Male : 1960 Arrival Date: 03/27/2020 Time: 14:08 Bed 13 Private MD: Diagnosis: Lower abdominal pain, unspecified Presentation: 03/27 14:22 Chief complaint: Patient states: Left sided abdominal pain for 1 day. No N/V/D. No hb fever. Coronavirus screen: Proceed with normal triage. Patient denies a cough. Patient denies shortness of breath or difficulty breathing. Patient denies measured and/or subjective temperature greater than 100.4F prior to today's visit. Patient denies travel on a cruise ship or to a country the [facility] currently lists as an affected area. Patient denies contact with known and/or suspected case of COVID-19. Ebola Screen: Patient denies travel to an Ebola-affected area in the 21 days before illness onset. Initial Sepsis Screen: Does the patient meet any 2 criteria? No. Patient's initial sepsis screen is negative. Does the patient have a suspected source of infection? Yes: Acute abdominal pain. Risk Assessment: Do you want to hurt yourself or someone else? Patient reports no desire to harm self or others. Risk Assessment: Do you want to hurt yourself or someone else? Patient reports no desire to harm self or others. Onset of symptoms was March 27, 2020. 14:22 Method Of Arrival: Ambulatory hb 14:22 Acuity: MARION 3 hb Historical: - Allergies: 14:21 NKA; hb - PMHx: 14:21 Bipolar disorder; Diverticulitis; HEP C; HYPOGLYCEMIA; Irregular heart rate; CVA; hb ADD/ADHD; - PSHx: 14:21 abdominal; hb - Immunization history:: Flu vaccine is not up to date. - Social history:: Smoking status: Patient reports the use of cigarette tobacco products, smokes two packs cigarettes per day. Patient/guardian denies using street drugs. Screenin:00 Abuse screen: Denies threats or abuse. Nutritional screening: No deficits noted. vc Tuberculosis screening: No symptoms or risk factors identified. Fall Risk None identified. Assessment: 15:00 General: Appears in no apparent distress. uncomfortable, Behavior is calm, cooperative, vc appropriate for age. Pain: Complains of pain in left lower quadrant and left upper quadrant Pain radiates to right lower quadrant Pain currently is 10 out of 10 on a pain scale. Quality of pain is described as sharp. Neuro: Level of Consciousness is awake, alert, obeys commands, Oriented to person, place, time, situation, Appropriate for age. Cardiovascular: Capillary refill < 3 seconds Patient's skin is warm and dry. Respiratory: No deficits noted. Airway is patent Respiratory effort is even, unlabored, Respiratory pattern is regular, symmetrical. GI: Abdomen is round non-distended, Bowel sounds Abd is soft Abdomen is tender to palpation X 4 quads. : No signs and/or symptoms were reported regarding the genitourinary system. Derm: Skin is intact, is healthy with good turgor. 16:00 Reassessment: Patient appears in no apparent distress at this time. Patient and/or vc family updated on plan of care and expected duration. Pain level reassessed. Patient is alert, oriented x 3, equal unlabored respirations, skin warm/dry/pink. 17:00 Reassessment: Patient appears in no apparent distress at this time. Patient and/or vc family updated on plan of care and expected duration. Pain level reassessed. Patient is alert, oriented x 3, equal unlabored respirations, skin warm/dry/pink. 18:23 Reassessment: patient waiting on disc from CT before discharge. vc Vital Signs: 14:22 BP 136 / 94; Pulse 82; Resp 18; Temp 97.9; Pulse Ox 98% ; Pain 10/10; hb 17:00 BP 160 / 98; Pulse 73; Resp 18; Pulse Ox 98% on R/A; vc 17:45 BP 169 / 102; Pulse 71; Resp 18; Pulse Ox 99% on R/A; vc ED Course: 14:08 Patient arrived in ED. am2 14:23 Triage completed. hb 14:23 Arm band placed on Patient notified of wait time. hb 14:58 Baudilio Burns PA is PHCP. [facility] 14:58 Mick Arshad MD is Attending Physician. [facility] 15:23 Prachi Phelps RN is Primary Nurse. vc 15:42 Missed attempt(s): 20 gauge in right forearm. Bleeding controlled, band aid applied, jp3 catheter tip intact. 15:48 Inserted saline lock: 20 gauge in left forearm, using aseptic technique. Blood jp3 collected. Patient maintains SpO2 saturation greater than 95% on room air. 15:48 Initial lab(s) drawn, by me, sent to lab. jp3 15:50 Placed in gown. Bed in low position. Call light in reach. Verbal reassurance given. jp3 Pulse ox on. NIBP on. 17:09 CT Abd/Pelvis - IV Contrast Only In Process Unspecified. EDMS 18:30 No provider procedures requiring assistance completed. IV discontinued, intact, vc bleeding controlled, No redness/swelling at site. Pressure dressing applied. Administered Medications: 15:51 Drug: morphine 4 mg Route: IVP; Site: left antecubital; vc 17:46 Follow up: Response: No adverse reaction vc 15:51 Drug: Zofran (Ondansetron) 4 mg Route: IVP; Site: left antecubital; vc 17:46 Follow up: Response: No adverse reaction vc Outcome: 17:43 Discharge ordered by . petey 18:25 Discharged to home ambulatory. vc 18:25 Condition: good 18:25 Discharge instructions given to patient, Instructed on discharge instructions, follow up and referral plans. Demonstrated understanding of instructions, follow-up care, medications, Prescriptions given X 1. 18:38 Patient left the ED. vc Signatures: Dispatcher [employer] EDMS Baudilio Burns PA PA jmm Baxter, Heather, NIKI RN Lily Oliva am2 Jc Mae jp3 Prachi Phelps RN RN vc Corrections: (The following items were deleted from the chart) 16:01 15:48 Inserted saline lock: 20 gauge in left antecubital area, using aseptic technique. jp3 Blood collected. jp3
[2020-03-27 18:47] VITALS: TEMP 97.9
[2020-03-27 18:49] VITALS: BP 169/102; O2SAT 99
== END 2020-03-27 18:38 | disposition home or self-care (01) ==
LOC: ER 14:06
DX: R10.32 Left lower quadrant pain (principal); F17.210 Nicotine dependence, cigarettes, uncomplicated
CPT/HCPCS: 85025; 80048; 36415; 80076; 83690; 74177; 96375; 96374; 99284; Q9967; J2405

== ENCOUNTER 2020-03-28 15:55 | Emergency (ER) | payer OTHER ==
--- OUTSIDE RECORDS SUMMARY | 2020-03-28 15:59 | XMS REPORT | Continuity of Care Document ---
:1960 Author Organization [facility] t Address [address] [place] [address] Care Team Providers Name Role Phone Unavailable Unavailable Unavailable Payers Payer Name Policy Type Policy Number Effective Date Expiration Date S ource Problems Condition Condition Condition Status Onset Resolution Last Treating Co mments Source Name Details Category Date Date Treatment Clinician Date Folliculit Folliculit Problem Active [facility] Arthritis Arthritis Problem [facility] Bipolar 1 Bipolar [address] [facility] disorder disorder [facility] Mixed Mixed Problem Active [facility] hyperlipid hyperlipid Greta kes - emia emia Memoria l [facility]ics Pure Pure Problem Active [facility] hyperchole hyperchole Greta kes - sterolemia sterolemia Me moria l [facility] 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 Greta kes - itis itis Memoria involving involving l multiple multiple Outpat i joints joints ent Clinics Smoker Smoker Problem Active [facility] Essential Essential Problem Active [facility] hypertensi hypertensi Greta kes - on on Memoria l [facility] Other Other Problem Active [facility] chronic chronic [facility] pain pain [facility] Irritabili Irritabili Problem Active [facility] ty and ty and [facility] anger anger [facility] l [facility] Elevated Elevated Problem Active [...] disturbanc disturbanc Me moria e e l [facility] Paresthesi Paresthesi Problem Active [facility] a of skin a of skin [facility] Otalgia of Otalgia of Problem Active [facility] left ear left ear [facility] Dementia Dementia Problem Active [facility] in other in other [facility] diseases diseases Memori a classified classified l elsewhere elsewhere Outp ati without without ent behavioral behavioral Cl inics disturbanc disturbanc e e Impacted Impacted Problem Active [facility] cerumen of cerumen of [place] kes - left ear left ear Memori a l [facility] Alzheimer' Alzheimer' Problem Active [facility] '[facility] - disease, disease, Memori a unspecifie unspecifie l d d [facility] 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[facility] t dysfunctio dysfunctio [place]ta kes - n, n, Memoria unspecifie unspecifie l d erectile d erectile Ou tpati dysfunctio dysfunctio en t n type n type Clinics Hypoglycem Hypoglycem Problem Active [facility] ia ia [facility] Simple Simple Problem Active [facility] chronic chronic [facility] - bronchitis bronchitis Me moria l [facility] Nicotine Nicotine Problem Active [facility] dependence dependence [facility] kes - , , Memoria cigarettes cigarettes l , , [facility] uncomplica uncomplica en t mann mann Clinics 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 Greta kes - itis of itis of Memoria both knees both knees l [facility] Allergies, Adverse Reactions, Alerts Allergy Allergy Status Severity Reaction(s) Onset Inactive Treating Comm ents Source Name Type Date Date Clinician No Known DA Active [facility] 01-24 [place] [facility] 00:00: [facility] [address] Medications Ordered Filled [...] ID 2020-01-01 2020-01-01 [facility] [id number] [address] 16:10:00 16:10:00 [place] [facility] Medicine Medicine Outpati ent Clinics 2019-12-26 2019-12-26 [facility] [id number] 08:44:00 08:44:00 [place] [facility] Medicine Medicine Outpati ent Clinics 2019-12-05 2019-12-05 [facility] [id number] 15:07:00 15:07:00 [place] [facility] Medicine Outpati ent Clinics 2019-09-24 2019-09-24 [facility] [id number] 09:27:00 09:27:00 [place] [employer] [facility] Medicine l Medicine Outpati ent Clinics 2019-09-06 2019-09-06 [facility] [id number] 12:00:00 12:00:00 [place] - Drive [facility] l Medicine Outpati ent Clinics 2019-08-18 2019-08-18 [facility] [id number] 17:55:00 17:55:00 [place] [employer] - Family [employer] [facility] Medicine l Medicine Outpati ent Clinics 2019-08-01 2019-08-01 [facility] [id number] 09:00:00 09:00:00 t [place] [employer] - [employer] [facility] l Medicine Outpati ent Clinics 2019-06-07 2019-06-07 [facility] [id number] 11:20:00 11:20:00 t [place] [employer] - [employer] [facility] Medicine l Medicine Outpati ent Clinics 2019-01-04 2019-01-04 [facility] [id number] 14:04:00 14:04:00 t [place] [employer] [facility] l Medicine Outpati ent Clinics 2018-11-23 2018-11-23 [facility] [id number] 09:15:00 09:15:00 t [facility] l Outpati ent Clinics 2018-11-20 2018-11-20 [facility] [id number] 10:13:00 10:13:00 t [place] [employer] [facility] Medicine l Medicine Outpati ent Clinics 2018-11-15 2018-11-15 [facility] [id number] 15:15:00 15:15:00 t [place] [employer] [address] [facility] Medicine l Medicine Outpati ent Clinics 2018-10-09 2018-10-09 [facility] [id number] 10:19:00 10:19:00 t [place] [employer] [facility] 2018-06-02 2018-06-02 Outpatient Shannan Solomon [id number] 16:46:00 16:46:00 [facility] 2018-05-11 2018-05-11 Outpatient Shannan Solomon [id number] 09:45:00 09:45:00 [facility] Results Test Description Test Time Test Comments [...] CA) 8.8 mg/dL 8.8-10.2 N CBC W/AUTO [id number] 06:40:00 Test Item Value Reference Range Interpretation [...] BA#) 0.07 x10 3/uL 0.0-0.20 N VANCOMYCIN [id number] 13:34:00 Test Item Value Reference Range Interpretation Comments VANCOMYCIN TROUGH (test code = 14.4 mcg/ML 10.0-20.0 N VANCT) Spec Comments: RN PLS DRAW VANCO 30MIN BEFORE DOSE DUE ON 01/30 BASIC METABOLIC [id number] 04:08:00 Test Item Value Reference Range Interpretation [...] code 8.8 mg/dL 8.8-10.2 N = CA) [id number] 04:08:00 Test Item Value Reference Range Interpretation Comments MAGNESIUM (test code = MAG) 1.7 mg/dL 1.4-2.6 N CBC W/AUTO [id number] 03:56:00 Test Item Value Reference Range Interpretation [...] 0.09 x10 3/uL 0.0-0.20 N BASIC METABOLIC [id number] 21:22:00 Test Item Value Reference Range Interpretation [...] mg/dL 8.8-10.2 N = CA) RENAL FUNCTION [id number] 21:22:00 Test Item Value Reference Range Interpretation Comments ALBUMIN (test code = ALB) 3.4 G/DL 3.5-5.0 L PHOSPHOROUS (test code = PHOS) 2.0 mg/dL 2.7-4.5 L LIVER FUNCTION [id number] 21:22:00 Test Item Value Reference Range Interpretation [...] = 63 U/L 45-120 N ALKP) LACTIC [id number] 21:18:00 Test Item Value Reference Range Interpretation Comments LACTIC ACID (test code = LACT) 9.4 mg/dL 4.5-18.0 N PROTHROMBIN [id number] 21:12:00 Test Item Value Reference Range Interpretation [...] 2.5-3.5recurren t systemic emboli sm. THROMBOPLASTIN TIME [id number] 21:12:00 Test Item Value Reference Range Interpretation Comments THROMBOPLASTIN TIME 28.6 SECONDS 26.0-35.9 N INTERPRE TATIVE PARTIAL (test code = : erapeutic PTT) range: Unfractionated heparin:47 - 71 seconds Argatroban:1.5 to 3 times the basel ine PTT PROTHROMBIN [id number] 21:09:00 Test Item Value Reference Range Interpretation [...] 2.5-3.5recurren t systemic emboli sm. THROMBOPLASTIN TIME [id number] 21:09:00 Test Item Value Reference Range Interpretation Comments THROMBOPLASTIN TIME PARTIAL (test SECONDS 26.0-35.9 code = PTT) CBC W/AUTO [id number] 21:08:00 Test Item Value Reference Range Interpretation [...] 0.05 x10 3/uL 0.0-0.20 N CBC W/MANUAL [id number] 05:21:00 Test Item Value Reference Range Interpretation [...] code NORMAL NORMAL = PLTMORPH) RENAL FUNCTION [id number] 05:20:00 Test Item Value Reference Range Interpretation [...] 2.5 mg/dL 2.7-4.5 L code = PHOS) [id number] 05:20:00 Test Item Value Reference Range Interpretation Comments MAGNESIUM (test code = MAG) 1.8 mg/dL 1.4-2.6 N CBC W/MANUAL [id number] 04:48:00 Test Item Value Reference Range Interpretation [...] code = LYMPH) % 20.5-45.5 CBC W/MANUAL [id number] 04:48:00 Test Item Value Reference Range Interpretation [...] (test code = LYMPH) % 20.5-45.5 SURGICAL [id number] 12:52:00 RUN DATE: 01/29/20 [facility] - LAB PAGE 1 RUN TIME: 1252 Specimen Inquiry RUN USER: INTERFACE PATIENT: OTONIEL HENDERSON LOC: P.7S POD C U #: [id number] AGE/SX: 59/M ROOM: [facility] RE01/25/20REG DR: Cristopher Doty MD : [birth year] BED: 1 DIS: STATUS: ADM IN TLOC: SPEC #: [id number] RECD: 01/28/20 STATUS: FAINA REFabiana #: [id number] SIMON: 01/28/[address]: Cristopher Doty MD ENTERED: 01/28/20 SP TYPE: SURG OTHR DR: Roxanna Primary or Family Physician Mio Gilbert MD No,DocORDERED: PATHGM3, PATHGM5/2, PATH SPEC, H E STAIN HISTOLOGY: TISSUE ID BLK PCS PARISH LEV / PROCEDURE DISPOSITION ____ ___ ___ ___ ___ COLON SEG NTUMR A 18 1 TISSUES: A. 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 Signed SIGNATURE ON FILE Nita Ashford 01/29/20 1252 END OF REPORT BASIC METABOLIC [id number] 08:29:00 Test Item Value Reference Range Interpretation [...] code 9.2 mg/dL 8.8-10.2 N = CA) [id number] 08:29:00 Test Item Value Reference Range Interpretation Comments MAGNESIUM (test code = MAG) 1.3 mg/dL 1.4-2.6 L CBC W/AUTO [id number] 08:04:00 Test Item Value Reference Range Interpretation [...] x10 3/uL 0.0-0.20 N Novel Coronavirus 2018 [id number] 14:20:00 Test Item Value Reference Range Interpretation Comments Novel Coronavirus NEGATIVE Positive r esults are 2019 nCoV (test indicative o f the presence code = COVID19) [id number] RNA, clinical correlation wit h patient historyand [...] for the identification of SARS-CoV-2 RNA usingthe [employer] M2000 Sy stem under the FDA Emergen cy UseAuthorizatio n. The testing is perf ormed by personneltrabryan d in the procedures for the [employer] M2000 molecular diagnostic SARS-CoV-2 assa y in vitro. NEGATIVE Value reported toFirst Name: SAVITA Last Name:[place] RESULTS READ BACK AND VERIFIEDbyP.LAB.RS, on 01/26/20, @ 1934.- XR ABDOMEN [id number] 14:18:00Patient Name: OTONIEL HENDERSON Unit No: [id number] EXAMS: CPT CODE: [id number] XR ABDOMEN 1V [id number] Abdomen one view supine 01/28/2020 CLINICAL INDICATION: [...] Printed Date/Time: 01/28/2020 (1421) Name: OTONIEL HENDERSON [facility] Phys: José Antonio Zamora MD [address] : 1960 Age: 59 Sex: [place] [address] Loc: P.0733 1 Exam Date: 01/28/2020 Status: ADM IN PH: FAX: PAGE 1 Signed ReportCOMPREHENSIVE METABOLIC [id number] 07:39:00 Test Item Value Reference Range Interpretation [...] 45-120 N PHOSPHATASE (test code = ALKP) [id number] 07:39:00 Test Item Value Reference Range Interpretation Comments MAGNESIUM (test code = MAG) 1.4 mg/dL 1.4-2.6 N CBC W/AUTO [id number] 07:12:00 Test Item Value Reference Range Interpretation [...] = BA#) 0.10 x10 3/uL 0.0-0.20 N [id number] 15:08:00 Test Item Value Reference Range Interpretation Comments LITHIUM (test 0.5 mmol/L 0.6-1.2 L code = LITH) Detection Limit = 0.1 <0.1 indicate s None DetectedPerform ed At: [facility] [address] [id number] Jacky So MD Ph:[phone] [id number] 15:08:00 Test Item Value Reference Range Interpretation Comments LITHIUM (test 0.5 mmol/L 0.6-1.2 L code = LITH) Detection Limit = 0.1 <0.1 indicate s None DetectedPerform ed At: HD [facility] [address] [id number] Kyle L MD Ph:[phone] Novel Coronavirus 2018 [id number] 07:11:00 Test Item Value Reference Range Interpretation [...] PHOSPHATASE (test code = ALKP) CBC W/AUTO [id number] 04:21:00 Test Item Value Reference Range Interpretation [...] 3/uL 0.0-0.20 N - CT ABD PELVIS [id number] 09:58:00Patient Name: OTONIEL HENDERSON Unit No: [id number] EXAMS: CPT CODE: [id number] CT ABD PELVIS W/CONT 42444 CT abdomen and pelvis with IV contrast. [...] Additional findings as above. Name: OTONIEL HENDERSON [facility] Phys: VARSHA.Kole - Norbert William MD [address] : 1960 Age: 59 Sex: [place] [address] Loc: P.0723 1 Exam Date: 01/26/2020 Status: ADM IN PH: FAX: PAGE 1 Signed Report (CONTINUED) Patient Name: OTONIEL HENDERSON Unit No: [id number] EXAMS: CPT CODE: [id number] CT ABD PELVIS W/CONT 67646 <Continued> at 0958 Reported and signed by: OTONIEL ROSSI M.D. CC: Cristopher Doty MD; Norbert William MD Technologist: ANTONIO Martin(Jeannine)(CT) CTDI: 11.68 DLP: 602 Trscr Dt/Tm: 01/26/2020 (0958) by:[email or web address] Printed Date/Time: 01/26/2020 (1001)Name: OTONIEL HENDERSON [facility] Phys: VARSHA.Kole - Norbert William MD [address] : 1960 Age: 59 Sex: [place] [address] Loc: P.0723 1 Exam Date: 01/26/2020 Status: ADM IN PH: FAX: PAGE 2 Signed ReportCOMPREHENSIVE METABOLIC [id number] 05:50:00 Test Item Value Reference Range Interpretation [...] PHOSPHATASE (test code = ALKP) CBC W/AUTO [id number] 04:55:00 Test Item Value Reference Range Interpretation [...] 0.15 x10 3/uL 0.0-0.20 N COMPREHENSIVE METABOLIC [id number] 18:44:00 Test Item Value Reference Range Interpretation [...] N PHOSPHATASE (test code = ALKP) PROTHROMBIN [id number] 18:32:00 Test Item Value Reference Range Interpretation [...] 2.5-3.5recurren t systemic emboli sm. CBC W/AUTO [id number] 18:26:00 Test Item Value Reference Range Interpretation [...]
[2020-03-28 17:21] LABS: Protime INR 0.88
[2020-03-28] MEDS ORDERED: MORPHINE 4 MG/ML SYR ONE (17:29)
[2020-03-28] MEDS ORDERED: ONDANSETRON 4 MG/2 ML VIAL ONE (17:29)
[2020-03-28 17:33] LABS: Absolute Lymphocytes (CBC) 1.8 K/uL (0.7-4.9); Basophils % 0.5 % (0-1.3); Hematocrit 37.2 % (39.6-49.0); Lymphocytes % 20.4 % (15.3-44.8); MPV 9.6 fL (7.6-11.3); RBC Red Blood Cell Count 4.21 M/uL (4.33-5.43)
--- NOTE | 2020-03-28 17:39 | RAD REPORT ---
EXAM DESCRIPTION: CT - Abdomen Angio - 03/28/2020 5:27 pm CLINICAL HISTORY: hx of mesenteric ischemia has severe pain on/off TECHNIQUE: During dynamic enhancement using nonionic IV contrast axial 3 millimeter thick images of the abdomen and upper pelvis were obtained to evaluate the abdominal aorta. Sagittal and coronal refo rmatted images were generated and reviewed. All CT scans are performed using dose optimization technique as appropriate and may include automated exposure control or mA/KV adjustment according to patient size. COMPARISON: CT abdomen and pelvis March 27 FINDINGS: Aorta is normal in diameter. No dissection, displaced calcification or other emergent aor tic finding. Prominent calcifications are seen in the proximal aspect of each common iliac artery wit hout significant stenosis. No celiac atherosclerotic change or suspicious finding noted. There prominent calcifications at the o rigin of the superior mesenteric artery. Mural thrombus is seen in the initial 13 mm. There is an sandy roximately 40% diameter stenosis. Inferior mesenteric artery is patent. This vascular pattern is not generally associated with mesenteric ischemia. No bowel wall thickening or edema seen. Food distends the stomach. No acute gastric finding. Duodenal diverticulum is present. No free air, free fluid or inflammatory stranding. No hernia, mass or bulky lymphadenopathy. The live r, spleen, pancreas, gallbladder, biliary tree and adrenal glands show no new or suspicious findings. Nephrolithiasis again noted. No acute renal parenchymal finding. IMPRESSION: No aortic aneurysm, aortic dissection or acute aortic finding seen. 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 Celiac artery is widely patent in the inferior mesenteric artery is patent. This pattern is generally not associated w ith mesenteric ischemia. No new or suspicious finding from prior day imaging.
[2020-03-28 17:41] LABS: ALT/SGPT 23 U/L (12-78); AST/SGOT 20 U/L (15-37); Albumin 3.5 g/dL (3.4-5.0); Alkaline Phosphatase 90 U/L (45-117); BUN Blood Urea Nitrogen 13 mg/dL (7-18); Bicarbonate 27 mmol/L (21-32); Bilirubin Direct < 0.1 mg/dL (0-0.2); Bilirubin Total 0.2 mg/dL (0.2-1.0); Glucose Level 103 mg/dL (74-106); Lipase 244 U/L (73-393); Potassium 3.7 mmol/L (3.5-5.1); Protein, Total 6.5 g/dL (6.4-8.2); Sodium Level 141 mmol/L (136-145)
--- NOTE | 2020-03-28 18:36 | ER ---
Nurse's Notes [facility] Name: Gregory Dumont Age: 59 yrs Sex: Male : 1960 Arrival Date: 03/28/2020 Time: 15:57 Bed 6 Private MD: Diagnosis: Calculus of kidney-left Presentation: 03/28 16:10 Chief complaint: Patient states: Was here yesterday for same thing. Yesterday,I was ca1 just having L lower abdominal pain, today it is going the back on the R side. I had a colon surgery 4-6 weeks. I started having the pain yesterday that's when I came here. Coronavirus screen: Proceed with normal triage. Patient denies a cough. Patient denies shortness of breath or difficulty breathing. Patient denies measured and/or subjective temperature greater than 100.4F prior to today's visit. Patient denies travel on a cruise ship or to a country the [facility] currently lists as an affected area. Patient denies contact with known and/or suspected case of COVID-19. Ebola Screen: Patient negative for fever greater than or equal to 101.5 degrees Fahrenheit, and additional compatible Ebola Virus Disease symptoms Patient denies exposure to infectious person. Patient denies travel to an Ebola-affected area in the 21 days before illness onset. No symptoms or risks identified at this time. Initial Sepsis Screen: Does the patient meet any 2 criteria? No. Patient's initial sepsis screen is negative. Does the patient have a suspected source of infection? No. Patient's initial sepsis screen is negative. Risk Assessment: Do you want to hurt yourself or someone else? Patient reports no desire to harm self or others. Onset of symptoms was March 28, 2020. 16:10 Method Of Arrival: Ambulatory ca1 16:10 Acuity: MARION 3 ca1 Triage Assessment: 16:14 General: Appears in no apparent distress. comfortable, Behavior is calm, cooperative, ca1 appropriate for age. Pain: Complains of pain in left lower quadrant Pain radiates to left low back. Historical: - Allergies: 16:14 NKA; ca1 - Home Meds: 16:14 dicyclomine 20 mg oral tab 2 tabs twice a day [Active]; ca1 - PMHx: 16:14 ADD/ADHD; Bipolar disorder; CVA; Diverticulitis; HEP C; HYPOGLYCEMIA; Irregular heart ca1 rate; - Immunization history:: Adult Immunizations up to date. - Social history:: Smoking status: Patient reports the use of cigarette tobacco products, cigars, Patient/guardian denies using alcohol, street drugs, The patient lives with spouse. - Family history:: not pertinent. Screenin:45 Abuse screen: Denies threats or abuse. Nutritional screening: No deficits noted. aa5 Tuberculosis screening: No symptoms or risk factors identified. Fall Risk None identified. Assessment: 16:45 General: Appears comfortable, Behavior is calm, cooperative. Pain: Complains of pain in aa5 left lower quadrant Pain radiates to left low back Pain currently is 10 out of 10 on a pain scale. Quality of pain is described as sharp, shooting, Is continuous. Neuro: Level of Consciousness is awake, alert, obeys commands, Oriented to person, place, time, situation. Cardiovascular: Patient's skin is warm and dry. Respiratory: Airway is patent Respiratory effort is even, unlabored, Respiratory pattern is regular, symmetrical. GI: Abdomen is round non-distended, Bowel sounds present X 4 quads. Abd is soft and non tender X 4 quads. Patient currently denies diarrhea, nausea, vomiting. : Denies inability to void. EENT: No signs and/or symptoms were reported regarding the EENT system. Derm: Skin is pink, warm \T\ dry. Musculoskeletal: Range of motion: intact in all extremities. 17:20 Reassessment: To bedside to medicate pt, pt currently in CT . aa5 17:30 Reassessment: Patient is alert, oriented x 3, equal unlabored respirations, skin aa5 warm/dry/pink. Pt back from CT . 18:00 Reassessment: Patient is alert, oriented x 3, equal unlabored respirations, skin aa5 warm/dry/pink. Dressing changed to lower abdomen incision, incision with 3 small open areas noted, pt reports drainage but no drainage noted at this time. . Vital Signs: 16:10 BP 123 / 86; Pulse 86; Resp 15 S; Temp 97.7(TE); Pulse Ox 98% on R/A; Weight 72.57 kg ca1 (R); Height 5 ft. 11 in. (180.34 cm) (R); Pain 10/10; 17:30 BP 130 / 84; Pulse 80; Resp 18 S; Pulse Ox 97% on R/A; aa5 16:10 Body Mass Index 22.32 (72.57 kg, 180.34 cm) ca1 ED Course: 15:57 Patient arrived in ED. as 16:13 Triage completed. ca1 16:14 Arm band placed on right wrist. ca1 16:22 Bjorn Boyce PA is PHCP. cp 16:40 Shahnaz Miles MD is Attending Physician. maIsabel 16:42 Jessie Palmer RN is Primary Nurse. aa5 16:45 Patient has correct armband on for positive identification. Bed in low position. Call aa5 light in reach. Side rails up X 1. Pulse ox on. NIBP on. 17:10 Initial lab(s) drawn, by me, sent to lab. Inserted saline lock: 20 gauge in right aa5 antecubital area, using aseptic technique. Blood collected. 17:28 CT Abdomen - Angio In Process Unspecified. EDMS 18:50 No provider procedures requiring assistance completed. IV discontinued, intact, iw bleeding controlled, No redness/swelling at site. Pressure dressing applied. Administered Medications: 17:30 Drug: morphine 4 mg Route: IVP; Site: right antecubital; aa5 17:40 Follow up: Response: No adverse reaction aa5 17:30 Drug: Zofran (Ondansetron) 4 mg Route: IVP; Site: right antecubital; aa5 17:40 Follow up: Response: No adverse reaction aa5 18:45 Drug: [place] 5 mg-325 mg 1 tabs Route: PO; iw 18:50 Follow up: Response: No adverse reaction iw Outcome: 18:36 Discharge ordered by . ma2 18:50 Discharged to home ambulatory. iw 18:50 Condition: good 18:50 Discharge instructions given to patient, Instructed on discharge instructions, follow up and referral plans. medication usage, Demonstrated understanding of instructions, follow-up care, medications, Prescriptions given X 1. 18:50 Patient left the ED. iw Signatures: Dispatcher [employer] Padmini Casey Irene, RN RN Jessie Palmer RN RN aa5 Bjorn Boyce PA PA cp Alzahri, Mohammad, MD MD ma2 Acob, Cheryl, RN RN ca1 Corrections: (The following items were deleted from the chart) 16:15 16:10 Chief complaint: Patient states: Was here yesterday for same thing. Yesterday,I ca1 was just having R lower abdominal pain, today it is going the back on the R side. I had a colon surgery 4-6 weeks. I started having the pain yesterday that's when I came here. ca1
--- NOTE | 2020-03-28 18:36 | EDPHYS ---
Physician Documentation [facility] Name: Gregory Dumont Age: 59 yrs Sex: Male : 1960 Arrival Date: 03/28/2020 Time: 15:57 Bed 6 Private MD: ED Physician Shahnaz Miles HPI: 03/28 17:17 This 59 yrs old Male presents to ER via Ambulatory with complaints of ma2 Abdominal Pain, Back Pain. 17:17 The patient presents with pain that is acute. The symptoms are located in the left ma2 lower quadrant, abd pain . Onset: The symptoms/episode began/occurred suddenly, 2 day(s) ago. Associated signs and symptoms: Pertinent positives: abdominal pain, Pertinent negatives: constipation, dysuria, headache, nausea, numbness, vomiting, weakness. Severity of symptoms: At their worst the symptoms were severe, in the emergency department the symptoms are unchanged, have resolved. The patient has experienced similar episodes in the past. Historical: - Allergies: 16:14 NKA; ca1 - Home Meds: 16:14 dicyclomine 20 mg oral tab 2 tabs twice a day [Active]; ca1 - PMHx: 16:14 ADD/ADHD; Bipolar disorder; CVA; Diverticulitis; HEP C; HYPOGLYCEMIA; Irregular heart ca1 rate; - Immunization history:: Adult Immunizations up to date. - Social history:: Smoking status: Patient reports the use of cigarette tobacco products, cigars, Patient/guardian denies using alcohol, street drugs, The patient lives with spouse. - Family history:: not pertinent. ROS: 17:17 Constitutional: Negative for fever, chills, and weight loss. ma2 17:17 All other systems are negative. Exam: 17:17 Constitutional: This is a well developed, well nourished patient who is awake, alert, ma2 and in no acute distress. Head/Face: Normocephalic, atraumatic. Eyes: Pupils equal round and reactive to light, extra-ocular motions intact. Lids and lashes normal. Conjunctiva and sclera are non-icteric and not injected. Cornea within normal limits. Periorbital areas with no swelling, redness, or edema. ENT: Nares patent. No nasal discharge, no septal abnormalities noted. Tympanic membranes are normal and external auditory canals are clear. Oropharynx with no redness, swelling, or masses, exudates, or evidence of obstruction, uvula midline. Mucous membranes moist. Neck: Trachea midline, no thyromegaly or masses palpated, and no cervical lymphadenopathy. Supple, full range of motion without nuchal rigidity, or vertebral point tenderness. No Meningismus. Chest/axilla: Normal chest wall appearance and motion. Nontender with no deformity. No lesions are appreciated. Cardiovascular: Regular rate and rhythm with a normal S1 and S2. No gallops, murmurs, or rubs. Normal PMI, no JVD. No pulse deficits. Respiratory: Lungs have equal breath sounds bilaterally, clear to auscultation and percussion. No rales, rhonchi or wheezes noted. No increased work of breathing, no retractions or nasal flaring. Abdomen/GI: surgical scard are dry, partially healed in good order, Soft, non-tender, with normal bowel sounds. No distension or tympany. No guarding or rebound. No evidence of tenderness throughout. Vital Signs: 16:10 BP 123 / 86; Pulse 86; Resp 15 S; Temp 97.7(TE); Pulse Ox 98% on R/A; Weight 72.57 kg ca1 (R); Height 5 ft. 11 in. (180.34 cm) (R); Pain 10/10; 17:30 BP 130 / 84; Pulse 80; Resp 18 S; Pulse Ox 97% on R/A; aa5 16:10 Body Mass Index 22.32 (72.57 kg, 180.34 cm) ca1 MDM: 16:44 Patient medically screened. me2 17:17 Differential diagnosis: Hydronephrosis Inflammatory Bowel Disease mesenteric ischemia. me2 18:35 Data reviewed: vital signs, nurses notes. Counseling: I had a detailed discussion with ma2 the patient and/or guardian regarding: the historical points, exam findings, and any diagnostic results supporting the discharge/admit diagnosis, the presence of at least one elevated blood pressure reading (>120/80) during this emergency department visit, the need for outpatient follow up. Response to treatment: the patient's symptoms have markedly improved after treatment. 03/28 16:54 Order name: Basic Metabolic Panel; Complete Time: 18:11 [facility] 03/28 16:54 Order name: CBC with Diff; Complete Time: 18:11 [facility] 03/28 16:54 Order name: Hepatic Function; Complete Time: 18:11 [facility] 03/28 16:54 Order name: Lipase; Complete Time: 18:11 [facility] 03/28 16:54 Order name: PT-INR; Complete Time: 18: [facility] 03/28 17:51 Order name: Urine Dipstick--Ancillary (enter results) 03/28 16:54 Order name: IV Saline Lock; Complete Time: 17:19 [facility] 03/28 16:54 Order name: Labs collected and sent; Complete Time: 17:19 [facility] 03/28 16:54 Order name: Urine Dipstick-Ancillary (obtain specimen); Complete Time: 18:18 [facility] 03/28 16:54 Order name: CT Abdomen - Angio; Complete Time: 18: Administered Medications: 17:30 Drug: morphine 4 mg Route: IVP; Site: right antecubital; aa5 17:40 Follow up: Response: No adverse reaction aa5 17:30 Drug: Zofran (Ondansetron) 4 mg Route: IVP; Site: right antecubital; aa5 17:40 Follow up: Response: No adverse reaction aa5 18:45 Drug: [place] 5 mg-325 mg 1 tabs Route: PO; iw 18:50 Follow up: Response: No adverse reaction iw Disposition: 03/28/20 18:36 Discharged to Home. Impression: Calculus of kidney - left. - Condition is Stable. - Discharge Instructions: Kidney Stones. - Prescriptions for Flomax 0.4 mg Oral Capsule, Sust. Release 24 hr - take 1 capsule by ORAL route once daily 1/2 hour following the same meal each day; 30 capsule. - Medication Reconciliation Form, Thank You Letter, Antibiotic Education, Prescription Opioid Use form. - Follow up: Private Physician; When: Tomorrow; Reason: If symptoms return, Continuance of care. Signatures: Dispatcher [employer] Lima Castro RN RN iw Jessie Palmer RN RN aa5 Shahnaz Miles MD MD ma2 Phoebe Etienne RN RN ca1 Corrections: (The following items were deleted from the chart) 18:50 18:36 03/28/2020 18:36 Discharged to Home. Impression: Calculus of kidney - left. iw Condition is Stable. Forms are Medication Reconciliation Form, Thank You Letter, Antibiotic Education, Prescription Opioid Use. Follow up: Private Physician; When: Tomorrow; Reason: If symptoms return, Continuance of care. ma2
[2020-03-28] MEDS ORDERED: HYDROCODONE/APAP 5/325 MG TAB ONE (18:49)
[2020-03-28 18:50] LABS: Urine Blood NEGATIVE (NEG); Urine Glucose NEGATIVE (NEG); Urine Protein NEGATIVE (NEG); Urine Specific Gravity 1.015 (1.005-1.030)
[2020-03-28 19:03] VITALS: BP 123/86; TEMP 97.7; O2SAT 98
== END 2020-03-28 18:50 | disposition home or self-care (01) ==
LOC: ER 15:55
DX: N20.0 Calculus of kidney (principal); F17.210 Nicotine dependence, cigarettes, uncomplicated
CPT/HCPCS: 85025; 80048; 36415; 85610; 80076; 81003; 83690; 74175; 96375; 96374; 99284; Q9967; J2405

== ENCOUNTER 2020-04-08 05:50 | Emergency (ER) | payer OTHER ==
--- OUTSIDE RECORDS SUMMARY | 2020-04-08 05:54 | XMS REPORT | Continuity of Care Document ---
:1960 Author Organization [facility] t Address [address] [place] [address] Care Team Providers Name Role Phone Unavailable Unavailable Unavailable Payers Payer Name Policy Type Policy Number Effective Date Expiration Date S ource Problems Condition Condition Condition Status Onset Resolution Last Treating Co mments Source Name Details Category Date Date Treatment Clinician Date Folliculit Folliculit Problem Active [facility] Arthritis Arthritis Problem [facility] Bipolar 1 Bipolar [address] [facility] disorder disorder [facility] Mixed Mixed Problem Active [facility] hyperlipid hyperlipid Greta kes - emia emia [facility] Pure Pure Problem Active [facility] hyperchole hyperchole Greta kes - sterolemia sterolemia Me moria l [facility] 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 Greta kes - itis itis Memoria involving involving l multiple multiple Outpat i joints joints ent Clinics Smoker Smoker Problem [facility] Essential Essential Problem Active [facility] hypertensi hypertensi Greta kes - on on [facility] Other Other Problem Active [facility] chronic chronic [facility] pain pain [facility]ics Irritabili Irritabili Problem Active [facility] ty and ty and [facility] anger anger [facility] Elevated Elevated Problem Active [facility] [...] disturbanc disturbanc Me moria e e l [facility] Paresthesi Paresthesi Problem Active [facility] a of skin a of skin [facility] Otalgia of Otalgia of Problem Active [facility] left ear left ear [facility] Dementia Dementia Problem Active [facility] in other in other [facility] - diseases diseases Memori a classified classified l elsewhere elsewhere Outp ati without without ent behavioral behavioral Cl inics disturbanc disturbanc e e Impacted Impacted Problem Active [facility] t cerumen of cerumen of Greta kes - left ear left ear Memori a l [facility] Alzheimer' Alzheimer' Problem Active [facility] - disease, disease, Memori a unspecifie unspecifie l d d [facility] 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[facility] t dysfunctio dysfunctio Greta kes - n, n, Memoria unspecifie unspecifie l d erectile d erectile Ou tpati dysfunctio dysfunctio en t n type n type Clinics Hypoglycem Hypoglycem Problem Active [facility] ia ia [facility] Simple Simple Problem Active [facility] chronic chronic [facility] - bronchitis bronchitis Me moria l [facility] Nicotine Nicotine Problem Active [facility] dependence dependence [facility] kes - , , Memoria cigarettes cigarettes l , , [facility] uncomplica uncomplica en t mann mann Clinics 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 Greta kes - itis of itis of Memoria both knees both knees l [facility] Allergies, Adverse Reactions, Alerts Allergy Allergy Status Severity Reaction(s) Onset Inactive Treating Comm ents Source Name Type Date Date Clinician No Known DA Active [facility] 01-24 [place] [facility] 00:00: [facility] [address] Medications Ordered [...] Clinics Vitamin B12 Vitamin B12 Yes Na Ogmes [address] [facility] [...] ID 2020-01-01 2020-01-01 [facility] [id number] [address] 16:10:00 16:10:00 [facility] Medicine Medicine Outpati ent Clinics 2019-12-26 2019-12-26 [facility] [id number] [address] 08:44:00 08:44:00 [facility] Medicine Medicine Outpati ent Clinics 2019-12-05 2019-12-05 [facility] [id number] [address] 15:07:00 15:07:00 [facility] Medicine Outpati ent Clinics 2019-09-24 2019-09-24 [facility] [id number] 09:27:00 09:27:00 t [facility] [employer] s - [facility] Medicine l Medicine Outpati ent Clinics 2019-09-06 2019-09-06 [facility] [id number] 12:00:00 12:00:00 t Pyote [employer] - Drive [facility] Medicine Outpati ent Clinics 2019-08-18 2019-08-18 [facility] [id number] 17:55:00 17:55:00 t Pyote [employer] - [employer] [facility] Medicine l Medicine Outpati ent Clinics 2019-08-01 2019-08-01 [facility] [id number] 09:00:00 09:00:00 t Pyote [employer] s - [employer] [facility] Medicine Outpati ent Clinics 2019-06-07 2019-06-07 [facility] [id number] 11:20:00 11:20:00 t Pyote [employer] s - [employer] [facility] Medicine l Medicine Outpati ent Clinics 2019-01-04 2019-01-04 [facility] [id number] 14:04:00 14:04:00 t [employer] [place] [facility] l Medicine Outpati ent Clinics 2018-11-23 2018-11-23 [facility] [id number] 09[facility]15:00 09:15:00 t [facility] l Outpati ent Clinics 2018-11-20 2018-11-20 [facility] [id number] 10:13:00 10:13:00 t [employer] [place] [facility] Medicine l Medicine Outpati ent Clinics 2018-11-15 2018-11-15 [facility] [id number] 15:15:00 15:15:00 t [employer] [address] [facility] Medicine l Medicine Outpati ent Clinics 2018-10-09 2018-10-09 [facility] [id number] 10:19:00 10:19:00 t [employer] [place] [facility] 2018-06-02 2018-06-02 Outpatient Shannan Solomon [id number] 16:46:00 16:46:00 [facility] 2018-05-11 2018-05-11 Outpatient Shannan Solomon [id number] 09:45:00 09:45:00 [facility] Results Test Description Test Time Test [...] CA) 8.8 mg/dL 8.8-10.2 N CBC W/AUTO [id number] 06:40:00 Test Item Value Reference Range Interpretation [...] BA#) 0.07 x10 3/uL 0.0-0.20 N VANCOMYCIN [id number] 13:34:00 Test Item Value Reference Range Interpretation Comments VANCOMYCIN TROUGH (test code = 14.4 mcg/ML 10.0-20.0 N VANCT) Spec Comments: RN PLS DRAW VANCO 30MIN BEFORE DOSE DUE ON 01/30 BASIC METABOLIC [id number] 04:08:00 Test Item Value Reference Range Interpretation [...] code 8.8 mg/dL 8.8-10.2 N = CA) [id number] 04:08:00 Test Item Value Reference Range Interpretation Comments MAGNESIUM (test code = MAG) 1.7 mg/dL 1.4-2.6 N CBC W/AUTO [id number] 03:56:00 Test Item Value Reference Range Interpretation [...] 0.09 x10 3/uL 0.0-0.20 N BASIC METABOLIC [id number] 21:22:00 Test Item Value Reference Range Interpretation [...] mg/dL 8.8-10.2 N = CA) RENAL FUNCTION [id number] 21:22:00 Test Item Value Reference Range Interpretation Comments ALBUMIN (test code = ALB) 3.4 G/DL 3.5-5.0 L PHOSPHOROUS (test code = PHOS) 2.0 mg/dL 2.7-4.5 L LIVER FUNCTION [id number] 21:22:00 Test Item Value Reference Range Interpretation [...] = 63 U/L 45-120 N ALKP) LACTIC [id number] 21:18:00 Test Item Value Reference Range Interpretation Comments LACTIC ACID (test code = LACT) 9.4 mg/dL 4.5-18.0 N PROTHROMBIN [id number] 21:12:00 Test Item Value Reference Range Interpretation [...] 2.5-3.5recurren t systemic emboli sm. THROMBOPLASTIN TIME [id number] 21:12:00 Test Item Value Reference Range Interpretation Comments THROMBOPLASTIN TIME 28.6 SECONDS 26.0-35.9 N INTERPRE TATIVE PARTIAL (test code = : erapeutic PTT) range: Unfractionated heparin:47 - 71 seconds Argatroban:1.5 to 3 times the basel ine PTT PROTHROMBIN [id number] 21:09:00 Test Item Value Reference Range Interpretation [...] 2.5-3.5recurren t systemic emboli sm. THROMBOPLASTIN TIME [id number] 21:09:00 Test Item Value Reference Range Interpretation Comments THROMBOPLASTIN TIME PARTIAL (test SECONDS 26.0-35.9 code = PTT) CBC W/AUTO [id number] 21:08:00 Test Item Value Reference Range Interpretation [...] 0.05 x10 3/uL 0.0-0.20 N CBC W/MANUAL [id number] 05:21:00 Test Item Value Reference Range Interpretation [...] code NORMAL NORMAL = PLTMORPH) RENAL FUNCTION [id number] 05:20:00 Test Item Value Reference Range Interpretation [...] 2.5 mg/dL 2.7-4.5 L code = PHOS) [id number] 05:20:00 Test Item Value Reference Range Interpretation Comments MAGNESIUM (test code = MAG) 1.8 mg/dL 1.4-2.6 N CBC W/MANUAL [id number] 04:48:00 Test Item Value Reference Range Interpretation [...] code = LYMPH) % 20.5-45.5 CBC W/MANUAL [id number] 04:48:00 Test Item Value Reference Range Interpretation [...] (test code = LYMPH) % 20.5-45.5 SURGICAL [id number] 12:52:00 RUN DATE: 01/29/20 [facility] - LAB PAGE 1 RUN TIME: 1252 Specimen Inquiry RUN USER: INTERFACE PATIENT: OTONIEL HENDERSON LOC: P.7S POD C U #: [id number] AGE/SX: 59/M ROOM: [facility] RE01/25/20REG DR: Cristopher Doty MD : 64 BED: 1 DIS: STATUS: ADM IN TLOC: SPEC #: [id number] RECD: 01/28/20 STATUS: FAINA REFabiana #: [id number] SIMON: 01/28/[address]: Cristopher Doty MD ENTERED: 01/28/20 SP TYPE: SURG OTHR DR: Roxanna Primary or Family Physician Mio Gilbert MD No,DocORDERED: PATHGM3, PATHGM5/2, PATH SPEC, H E STAIN HISTOLOGY: TISSUE ID BLK PCS PARISH LEV / PROCEDURE DISPOSITION ____ ___ ___ ___ ___ COLON SEG NTUMR A 18 1 TISSUES: A. COLON SEGMENTAL [id number] - Sigmoid Colon Proximal Rectum Anastomatic Donuts, [...] CONTINUED ON NEXT PAGE RUN DATE: 01/29/20 [facility] - LAB PAGE 2 RUN TIME: 1252 Specimen Inquiry RUN USER: INTERFACE SPEC #: [id number] PATIENT: OTONIEL HENDERSON #[id number] (Continued) GROSS DESCRIPTION (Continued) 2.4 x 2 [...] A16-A18: Ring-shaped donut #2 (with blue sutures) NURSE CASE MANAGEMENT/th MICROSCOPIC DESCRIPTION Microscopic examination performed. Signed SIGNATURE ON FILE Nita Ashford 01/29/20 1252 END OF REPORT BASIC METABOLIC [id number] 08:29:00 Test Item Value Reference Range Interpretation [...] code 9.2 mg/dL 8.8-10.2 N = CA) [id number] 08:29:00 Test Item Value Reference Range Interpretation Comments MAGNESIUM (test code = MAG) 1.3 mg/dL 1.4-2.6 L CBC W/AUTO [id number] 08:04:00 Test Item Value Reference Range Interpretation [...] x10 3/uL 0.0-0.20 N Novel Coronavirus 2018 [id number] 14:20:00 Test Item Value Reference Range Interpretation Comments Novel Coronavirus NEGATIVE Positive r esults are 2019 nCoV (test indicative o f the presence code = COVID19) [id number] RNA, clinical correlation wit h patient historyand [...] for the identification of SARS-CoV-2 RNA usingthe Stalkthis M2000 Sy stem under the FDA Emergen cy UseAuthorizatio n. The testing is perf ormed by personneltrabryan d in the procedures for the [place] M2000 molecular diagnostic SARS-CoV-2 assa y in vitro. NEGATIVE Value reported toFirst Name: SAVITA Last Name:[place] RESULTS READ BACK AND VERIFIEDbyP.LAB.RS, on 01/26/20, @ 1934.- XR ABDOMEN [id number] 14:18:00Patient Name: OTONIEL HENDERSON Unit No: [id number] EXAMS: CPT CODE: [id number] XR ABDOMEN 1V [id number] Abdomen one view supine 01/28/2020 CLINICAL INDICATION: [...] Printed Date/Time: 01/28/2020 (1421) Name: OTONIEL HENDERSON [facility] Phys: José Antonio Zamora MD [address] : 1960 Age: 59 Sex: [place] [address] Loc: P.0733 1 Exam Date: 01/28/2020 Status: ADM IN PH: FAX: PAGE 1 Signed ReportCOMPREHENSIVE METABOLIC [id number] 07:39:00 Test Item Value Reference Range Interpretation [...] 45-120 N PHOSPHATASE (test code = ALKP) [id number] 07:39:00 Test Item Value Reference Range Interpretation Comments MAGNESIUM (test code = MAG) 1.4 mg/dL 1.4-2.6 N CBC W/AUTO [id number] 07:12:00 Test Item Value Reference Range Interpretation [...] = BA#) 0.10 x10 3/uL 0.0-0.20 N [id number] 15:08:00 Test Item Value Reference Range Interpretation Comments LITHIUM (test 0.5 mmol/L 0.6-1.2 L code = LITH) Detection Limit = 0.1 <0.1 indicate s None DetectedPerform ed At: [facility] [address] [id number] Jacky So MD Ph:[phone] [id number] 15:08:00 Test Item Value Reference Range Interpretation Comments LITHIUM (test 0.5 mmol/L 0.6-1.2 L code = LITH) Detection Limit = 0.1 <0.1 indicate s None DetectedPerform ed At: HD [facility] [address] [id number] Kyle L MD Ph:[phone] Novel Coronavirus 2018 [id number] 07:11:00 Test Item Value Reference Range Interpretation [...] PHOSPHATASE (test code = ALKP) CBC W/AUTO [id number] 04:21:00 Test Item Value Reference Range Interpretation [...] 3/uL 0.0-0.20 N - CT ABD PELVIS [id number] 09:58:00Patient Name: OTONIEL HENDERSON Unit No: [id number] EXAMS: CPT CODE: [id number] CT ABD PELVIS W/CONT 74802 CT abdomen and pelvis with IV contrast. [...] Additional findings as above. Name: OTONIEL HENDERSON [facility] Phys: VARSHA.Kole - Norbert William MD [address] : 1960 Age: 59 Sex: [place] [address] Loc: P.0723 1 Exam Date: 01/26/2020 Status: ADM IN PH: FAX: PAGE 1 Signed Report (CONTINUED) Patient Name: OTONIEL HENDERSON Unit No: [id number] EXAMS: CPT CODE: [id number] CT ABD PELVIS W/CONT 84281 <Continued> at 0958 Reported and signed by: OTONIEL ROSSI M.D. CC: Cristopher Doty MD; Norbert William MD Technologist: ANTONIO Martin(Jeannine)(CT) CTDI: 11.68 DLP: 602 Trscr Dt/Tm: 01/26/2020 (0958) by:[email or web address] Printed Date/Time: 01/26/2020 (1001)Name: OTONIEL HENDERSON [facility] Phys: VARSHA.Kole - Norbert William MD [address] : 1960 Age: 59 Sex: [place] [address] Loc: P.0723 1 Exam Date: 01/26/2020 Status: ADM IN PH: FAX: PAGE 2 Signed ReportCOMPREHENSIVE METABOLIC [id number] 05:50:00 Test Item Value Reference Range Interpretation [...] PHOSPHATASE (test code = ALKP) CBC W/AUTO [id number] 04:55:00 Test Item Value Reference Range Interpretation [...] 0.15 x10 3/uL 0.0-0.20 N COMPREHENSIVE METABOLIC [id number] 18:44:00 Test Item Value Reference Range Interpretation [...] N PHOSPHATASE (test code = ALKP) PROTHROMBIN [id number] 18:32:00 Test Item Value Reference Range Interpretation [...] 2.5-3.5recurren t systemic emboli sm. CBC W/AUTO [id number] 18:26:00 Test Item Value Reference Range Interpretation [...]
[2020-04-08] MEDS ORDERED: MORPHINE 4 MG/ML SYR ONE (06:39)
[2020-04-08] MEDS ORDERED: NA CHLORIDE 0.9% 1,000 ML ONE (06:39)
[2020-04-08] MEDS ORDERED: ONDANSETRON 4 MG/2 ML VIAL ONE (06:39)
[2020-04-08 06:54] LABS: Absolute Lymphocytes (CBC) 1.9 K/uL (0.7-4.9); Basophils % 0.8 % (0-1.3); Hematocrit 42.8 % (39.6-49.0); Lymphocytes % 28.3 % (15.3-44.8); RBC Red Blood Cell Count 4.89 M/uL (4.33-5.43)
[2020-04-08 07:13] LABS: ALT/SGPT 26 U/L (12-78); AST/SGOT 18 U/L (15-37); Albumin 4.1 g/dL (3.4-5.0); Alkaline Phosphatase 94 U/L (45-117); BUN Blood Urea Nitrogen 14 mg/dL (7-18); Bicarbonate 21 mmol/L (21-32); Bilirubin Direct < 0.1 mg/dL (0-0.2); Bilirubin Total 0.2 mg/dL (0.2-1.0); Glucose Level 99 mg/dL (74-106); Lipase 355 U/L (73-393); Potassium 4.1 mmol/L (3.5-5.1); Protein, Total 7.5 g/dL (6.4-8.2); Sodium Level 138 mmol/L (136-145)
--- NOTE | 2020-04-08 07:36 | RAD REPORT ---
EXAM DESCRIPTION: CT - Abdomen Pelvis W Contrast - 04/08/2020 7:19 am CLINICAL HISTORY: ABD PAIN COMPARISON: Abdomen Pelvis W Contrast dated 03/27/2020; Abdomen Pelvis W Contrast dated 02/09/2020 TECHNIQUE: Biphasic, helical CT imaging of the abdomen and pelvis was performed following 100 ml non -ionic IV contrast. No oral contrast administered. All CT scans are performed using dose optimization technique as appropriate and may include automated exposure control or mA/KV adjustment according to patient size. FINDINGS: No suspicious findings in the lung bases. The liver, spleen, and pancreas show no suspicious findings. Gallbladder and biliary tree are also wi thout suspicious finding. Symmetric renal function is seen with no hydronephrosis or suspicious renal mass. No pyelonephritis o r acute parenchymal process. Bilateral nonobstructing calyx calculi are present. The patient has a 3 centimeter lower pole right renal cyst with no suspicious change from comparison. Partially filled ur inary bladder shows no suspicious finding. No adrenal abnormalities. No prostate enlargement. Numerou s pelvic floor phleboliths are present. Gastric sarabia appear thickened on this study. However, this is believed to be due to absence of intra luminal content. Gastric sarabia did not appear abnormally thickened on the short interval March 27. Small bowel loops are not dilated. There are multiple fluid-filled distal small bowel loops extend ing to the ileocecal valve. No wall thickening or mass. Rectosigmoid anastomosis shows no suspicious finding. Moderate stool volume seen in the right-side of the colon. Small bowel anastomosis shows no suspicious finding. No free air, free fluid or inflammatory stranding. No mass or bulky lymphadenop athy. Patient has a very small umbilical hernia. Small bilateral fat filled inguinal hernias are pres ent. There are postsurgical changes noted to the lower abdominal wall. No active process suspected. R emnants of the lower abdominal wall rectus hematoma remain. Disc and bony degenerative changes are present. L5 pars defects are present with very minimal L5 subl uxation. Dense arterial tree calcifications are present. IMPRESSION: No bowel obstruction, free air or surgically emergent finding. Patient has numerous fluid-filled distal small bowel loops. Pattern favors a nonspecific enteritis. Additional nonacute findings detailed in the body of the report.
--- NOTE | 2020-04-08 07:44 | ER ---
Nurse's Notes [facility] Name: Gregory Dumont Age: 59 yrs Sex: Male : 1960 Arrival Date: 04/08/2020 Time: 05:51 Bed 4 Private MD: Diagnosis: Lower abdominal pain, unspecified Presentation: 04/08 05:50 Chief complaint: Patient states: Abdominal pain, reports nausea, pain and nausea sg worsening this morning. Coronavirus screen: Proceed with normal triage. Ebola Screen: Patient negative for fever greater than or equal to 101.5 degrees Fahrenheit, and additional compatible Ebola Virus Disease symptoms Patient denies exposure to infectious person. Patient denies travel to an Ebola-affected area in the 21 days before illness onset. No symptoms or risks identified at this time. Initial Sepsis Screen: Does the patient meet any 2 criteria? No. Patient's initial sepsis screen is negative. Does the patient have a suspected source of infection? No. Patient's initial sepsis screen is negative. Risk Assessment: Do you want to hurt yourself or someone else? Patient reports no desire to harm self or others. Onset of symptoms was April 08, 2020. Care prior to arrival: None. Mechanism of Injury: No Mechanism of Injury. Transition of care: patient was not received from another setting of care. 05:50 Method Of Arrival: Ambulatory sg 05:50 Acuity: MARION 3 sg Historical: - Allergies: 05:56 NKA; sg - PMHx: 05:56 ADD/ADHD; Bipolar disorder; CVA; Diverticulitis; HEP C; HYPOGLYCEMIA; Irregular heart sg rate; - Immunization history:: Adult Immunizations up to date. - Social history:: Smoking status: Patient denies any tobacco usage or history of. Screenin:30 Abuse screen: Denies threats or abuse. Denies injuries from another. Nutritional mg2 screening: No deficits noted. Tuberculosis screening: No symptoms or risk factors identified. Fall Risk IV access (20 points). Assessment: 06:28 General: Appears in no apparent distress. comfortable, Behavior is calm, cooperative. mg2 Pain: Complains of pain in Lmiddle abdomen Pain does not radiate. Pain currently is 10 out of 10 on a pain scale. Quality of pain is described as aching, Pain began gradually. Neuro: Level of Consciousness is awake, alert, obeys commands, Oriented to person, place, time, situation. Cardiovascular: Capillary refill < 3 seconds Patient's skin is warm and dry. Respiratory: Airway is patent Respiratory effort is even, unlabored, Respiratory pattern is regular, symmetrical. GI: Bowel sounds present X 4 quads. Abdomen has rebound tenderness in left upper quadrant. : Reports history of kidney stones. EENT: No signs and/or symptoms were reported regarding the EENT system. Derm: Skin is intact, is healthy with good turgor, Skin is pink, warm \T\ dry. normal. Musculoskeletal: Circulation, motion, and sensation intact. Capillary refill < 3 seconds. 06:29 Reassessment: patient said he had a recent abdominal surgery 6 weeks ago. mg2 08:29 Reassessment: bedbugs noted in bed and on floor in room after discharge. [id number] Vital Signs: 05:50 BP 142 / 70; Pulse 89; Resp 18; Temp 97.7; Pulse Ox 100% on R/A; sg ED Course: 05:51 Patient arrived in ED. ag3 05:56 Arm band placed on. sg 05:58 Triage completed. sg 06:22 Lily Graves FNP-C [facility]. kb 06:22 Contreras Estrada MD is Attending Physician. kb 06:27 Delroy Hernandez, NIKI is Primary Nurse. mg2 06:30 Patient has correct armband on for positive identification. Door closed. Warm blanket mg2 given. 06:30 No provider procedures requiring assistance completed. mg2 06:50 Inserted saline lock: 20 gauge in right wrist, using aseptic technique. Blood collected.mg2 07:19 CT Abd/Pelvis - IV Contrast Only In Process Unspecified. EDMS Administered Medications: 06:48 Drug: Zofran (Ondansetron) 4 mg Route: IVP; Site: right wrist; mg2 06:49 Drug: NS 0.9% 1000 ml Route: IV; Rate: 1000 ml; Site: right wrist; mg2 06:49 Drug: morphine 4 mg Route: IVP; Site: right wrist; mg2 Outcome: 07:43 Discharge ordered by . kb 08:24 Patient left the ED. hb Signatures: Dispatcher [employer] EDMS Lily Graves FNP-C FNP-Ckb Gay, Steven, RN RN Kim Mullen RN RN hb Sherman Brown RN RN jl7 Delroy Hernandez, RN RN mg2 Mo, Delma ag3
--- NOTE | 2020-04-08 07:45 | EDPHYS ---
Physician Documentation [facility] Name: Gregory Dumont Age: 59 yrs Sex: Male : 1960 Arrival Date: 04/08/2020 Time: 05:51 Bed 4 Private MD: ED Physician Contreras Estrdaa HPI: 04/08 07:05 This 59 yrs old Male presents to ER via Ambulatory with complaints of kb Abdominal Pain. 07:05 The patient presents with abdominal pain in the left upper quadrant, in the left lower kb quadrant. Onset: The symptoms/episode began/occurred this morning. The symptoms do not radiate. Associated signs and symptoms: none. Pertinent negatives: nausea, vomiting, and diarrhea, constipation, fever. The symptoms are described as constant. Modifying factors: The symptoms are alleviated by nothing, the symptoms are aggravated by nothing. Severity of pain: At its worst the pain was moderate in the emergency department the pain is unchanged. The patient has experienced similar episodes in the past. The patient has not recently seen a physician. Pt reports left abd pain that started this morning. STates he had an abd surgery in [place] about 6 weeks ago for a pocket in his colon that had to be removed. Incisions healed.. Historical: - Allergies: 05:56 NKA; sg - PMHx: 05:56 ADD/ADHD; Bipolar disorder; CVA; Diverticulitis; HEP C; HYPOGLYCEMIA; Irregular heart sg rate; - Immunization history:: Adult Immunizations up to date. - Social history:: Smoking status: Patient denies any tobacco usage or history of. ROS: 07:03 Constitutional: Negative for fever, chills, and weight loss, Cardiovascular: Negative kb for chest pain, palpitations, and edema, Respiratory: Negative for shortness of breath, cough, wheezing, and pleuritic chest pain, Back: Negative for injury and pain, MS/Extremity: Negative for injury and deformity, Skin: Negative for injury, rash, and discoloration, Neuro: Negative for headache, weakness, numbness, tingling, and seizure. 07:03 Abdomen/GI: Positive for abdominal pain, Negative for nausea, vomiting, and diarrhea, constipation. Exam: 07:03 Constitutional: This is a well developed, well nourished patient who is awake, alert, kb and in no acute distress. Head/Face: Normocephalic, atraumatic. Chest/axilla: Normal chest wall appearance and motion. Nontender with no deformity. No lesions are appreciated. Cardiovascular: Regular rate and rhythm with a normal S1 and S2. No gallops, murmurs, or rubs. Normal PMI, no JVD. No pulse deficits. Respiratory: Lungs have equal breath sounds bilaterally, clear to auscultation and percussion. No rales, rhonchi or wheezes noted. No increased work of breathing, no retractions or nasal flaring. Back: No spinal tenderness. No costovertebral tenderness. Full range of motion. Skin: Warm, dry with normal turgor. Normal color with no rashes, no lesions, and no evidence of cellulitis. MS/ Extremity: Pulses equal, no cyanosis. Neurovascular intact. Full, normal range of motion. Neuro: Awake and alert, GCS 15, oriented to person, place, time, and situation. Cranial nerves II-XII grossly intact. Motor strength 5/5 in all extremities. Sensory grossly intact. Cerebellar exam normal. Normal gait. 07:03 Abdomen/GI: Inspection: scar(s), Bowel sounds: normal, in all quadrants, Palpation: soft, in all quadrants, moderate abdominal tenderness, in the left upper quadrant and left lower quadrant. Vital Signs: 05:50 BP 142 / 70; Pulse 89; Resp 18; Temp 97.7; Pulse Ox 100% on R/A; sg MDM: 06:22 Patient medically screened. kb 07:03 Data reviewed: vital signs, nurses notes. Data interpreted: Pulse oximetry: on room air kb is 100 %. Interpretation: normal. 07:43 Counseling: I had a detailed discussion with the patient and/or guardian regarding: the kb historical points, exam findings, and any diagnostic results supporting the discharge/admit diagnosis, lab results, radiology results, the need for outpatient follow up, a family practitioner, to return to the emergency department if symptoms worsen or persist or if there are any questions or concerns that arise at home. 04/08 06:25 Order name: Basic Metabolic Panel; Complete Time: 07:15 kb 04/08 06:25 Order name: CBC with Diff; Complete Time: 07:01 kb 04/08 06:25 Order name: Hepatic Function; Complete Time: 07:15 kb 04/08 06:25 Order name: Lipase; Complete Time: 07:15 kb 04/08 06:25 Order name: CT Abd/Pelvis - IV Contrast Only; Complete Time: 07:42 kb 04/08 06:25 Order name: IV Saline Lock; Complete Time: 06:49 kb 04/08 06:25 Order name: Labs collected and sent; Complete Time: 06:49 kb Administered Medications: 06:48 Drug: Zofran (Ondansetron) 4 mg Route: IVP; Site: right wrist; mg2 06:49 Drug: NS 0.9% 1000 ml Route: IV; Rate: 1000 ml; Site: right wrist; mg2 06:49 Drug: morphine 4 mg Route: IVP; Site: right wrist; mg2 Disposition: 04/08/20 07:43 Discharged to Home. Impression: Lower abdominal pain, unspecified. - Condition is Stable. - Discharge Instructions: Abdominal Pain, Adult, [id number]. - Prescriptions for Cyclobenzaprine 10 mg Oral Tablet - take 1 tablet by ORAL route every 8 hours As needed; 21 tablet. - Medication Reconciliation Form, Thank You Letter, Antibiotic Education, Prescription Opioid Use form. - Follow up: Private Physician; When: 2 - 3 days; Reason: Recheck today's complaints, Continuance of care, Re-evaluation by your physician. Follow up: Emergency Department; When: As needed; Reason: Worsening of condition. Addendum: 04/10/2020 19:42 Co-signature as Attending Physician, Contreras Estrada MD. m Signatures: Dispatcher [employer] EDND Lily Graves, EARRINGS FABRICATOR-C EARRINGS FABRICATOR-Ckb Spenser Tafoya RN RN Kim Mullen RN RN hb Gardose, Michele, RN RN [facility] [place] Contreras Estrada MD MD [email or web address] Corrections: (The following items were deleted from the chart) 04/08 08:24 07:43 04/08/2020 07:43 Discharged to Home. Impression: Lower abdominal pain, hb unspecified. Condition is Stable. Forms are Medication Reconciliation Form, Thank You Letter, Antibiotic Education, Prescription Opioid Use. Follow up: Private Physician; When: 2 - 3 days; Reason: Recheck today's complaints, Continuance of care, Re-evaluation by your physician. Follow up: Emergency Department; When: As needed; Reason: Worsening of condition. kb
[2020-04-08 08:43] VITALS: BP 142/70; TEMP 97.7; O2SAT 100
== END 2020-04-08 08:24 | disposition home or self-care (01) ==
LOC: ER 05:50
DX: R10.30 Lower abdominal pain, unspecified (principal)
CPT/HCPCS: 85025; 80048; 36415; 80076; 83690; 74177; 96375; 96374; 99284; Q9967; J7030; J2405

== ENCOUNTER 2021-03-01 19:49 | Emergency (ER) | payer OTHER ==
--- OUTSIDE RECORDS SUMMARY | 2021-03-01 19:53 | XMS REPORT | Continuity of Care Document ---
:1960 Author Organization [facility] t Address [address] [place] [address] Care Team Providers Name Role Phone Unavailable Unavailable Unavailable Payers Payer Name Policy Type Policy Number Effective Date Expiration Date S ource Problems Condition Condition Condition Status Onset Resolution Last Treating Co mments Source Name Details Category Date Date Treatment Clinician Date Folliculit Folliculit Problem Active [facility] Arthritis Arthritis Problem [facility] Bipolar 1 Bipolar [address] [facility] disorder disorder [facility] Mixed Mixed Problem Active [facility] hyperlipid hyperlipid [facility] - emia emia [facility]ics Pure Pure Problem Active [facility] hyperchole hyperchole [facility] - sterolemia sterolemia Me [facility]ia [facility] 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 [facility] - itis itis Memoria involving involving l multiple multiple Outpat i joints joints ent Clinics Smoker Smoker Problem [facility] Essential Essential Problem Active [facility] hypertensi hypertensi [facility] - on on [facility] Other Other Problem Active [facility] chronic chronic [facility] pain pain [facility]ics Irritabili Irritabili Problem Active [facility] ty and ty and [facility] anger anger [facility] Elevated Elevated Problem Active [facility] [...] disturbanc disturbanc Me moria e e l Outpati ent Clinics Paresthesi Paresthesi Problem Active [facility] a of skin a of skin [facility] Otalgia of Otalgia of Problem Active [facility] left ear left ear [facility] Dementia Dementia Problem Active [facility] other in other [facility] diseases diseases Memori a classified classified l elsewhere elsewhere Outp ati without without ent behavioral behavioral Cl inics disturbanc disturbanc e e Impacted Impacted Problem Active [facility] cerumen of cerumen of [facility] - left ear left ear Memori a l Outpati ent Clinics Alzheimer' Alzheimer' Problem Active [facility] - disease, disease, Memori a unspecifie unspecifie l d d Outpati ent Clinics 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[facility] dysfunctio dysfunctio [facility] - n, n, Memoria unspecifie unspecifie l d erectile d erectile Ou tpati dysfunctio dysfunctio en t n type n type Clinics Hypoglycem Hypoglycem Problem Active [facility] ia ia [facility] Simple Simple Problem Active [facility] chronic chronic [facility] bronchitis bronchitis Me moria l Outpati ent Clinics Nicotine Nicotine Problem Active [facility] dependence dependence [facility] - , , Memoria cigarettes cigarettes l , , Outpati uncomplica uncomplica en t mann mann Clinics 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 [facility] - itis of itis of Memoria both knees both knees l Outpati ent Clinics Seasonal Seasonal Diagnosis Active [facility] allergic allergic [facility] - rhinitis, rhinitis, Zac amandeep unspecifie unspecifie l d trigger d trigger Outp ati ent Clinics Allergies, Adverse Reactions, Alerts Allergy Allergy Status Severity Reaction(s) Onset Inactive Treating Comm ents Source Name Type Date Date Clinician No Known DA Active [facility]ie 10-30 Clear s 00:00: Patel 00 [facility] No Known DA Active [facility] Allergie 4-10 Niland s 00:00: [facility] 00 are [facility] Medications Ordered Filled Start Stop Current Ordering Indication Dosage Frequency Signature Comments Components Source Medication Medication Date Date Medication? Clinician (SIG) Name Name Lisa Gonzalez Yes Na Gomes 2 spray in [facility] 8-07 each [facility] - 00:00: nostril [facility] 00 l Outpati ent Clinics Procedures This patient has no known procedures. Encounters Start End Encounter Admission Attending Care Care Encounter Source Date/Time Date/Time Type Type Clinicians Facility Department ID 2020-06-20 2020-06-20 [facility] [id number] [facility] 10:36:00 10:36:00 t [employer] [facility] Family Medicine l Medicine Outpati ent Clinics 2020-05-23 2020-05-23 [facility] [id number] [address] 16:20:00 16:20:00 [employer] [facility] Medicine Medicine Outpati ent Clinics 2020-05-23 2020-05-23 [facility] [id number] 15:25:00 15:25:00 t [employer] [facility] Medicine l Medicine Outpati ent Clinics 2020-01-01 2020-01-01 [facility] [id number] [address] 16:10:00 16:10:00 t [employer] [facility] Medicine Medicine Outpati ent Clinics 2019-12-26 2019-12-26 [facility] [id number] [address] 08:44:00 08:44:00 t [employer] [facility] Medicine l Medicine Outpati ent Clinics 2019-12-05 2019-12-05 [facility] [id number] [address] 15:07:00 15:07:00 t [employer] [facility] Medicine Medicine Outpati ent Clinics 2019-09-24 2019-09-24 [facility] [id number] 09:27:00 09:27:00 t [employer] [facility] Medicine Medicine Outpati ent Clinics 2019-09-06 2019-09-06 [facility] [id number] 12:00:00 12:00:00 t [employer] [facility] Medicine l Medicine Outpati ent Clinics 2019-08-18 2019-08-18 [facility] [id number] 17:55:00 17:55:00 t [employer] [address] [facility] l Medicine Outpati ent Clinics 2019-08-01 2019-08-01 [facility] [id number] 09:00:00 09:00:00 t [employer] [facility] Medicine l Medicine Outpati ent Clinics 2019-06-07 2019-06-07 [facility] [id number] 11:20:00 11:20:00 t [employer] [facility] l Medicine Outpati ent Clinics 2019-01-04 2019-01-04 [facility] [id number] 14:04:00 14:04:00 t [employer] [facility] l Medicine Outpati ent Clinics 2018-11-23 2018-11-23 [facility] [id number] 09:15:00 09:15:00 t [facility]gent [facility] l Outpati ent Clinics 2018-11-20 2018-11-20 [facility] [id number] 10:13:00 10:13:00 t [employer] [facility] l Medicine Outpati ent Clinics 2018-11-15 2018-11-15 [facility] [id number] 15:15:00 15:15:00 t [employer] [facility] Medicine l Medicine Outpati ent Clinics 2018-10-09 2018-10-09 [facility] [id number] 10:19:00 10:19:00 t [employer] [facility] Medicine l Medicine Outpati ent Clinics 2018-06-02 2018-06-02 [facility] [id number] 16:46:00 16:46:00 t [employer] [facility] Medicine l Medicine Outpati ent Clinics 2018-05-11 2018-05-11 [facility] [id number] 09:45:00 09:45:00 t [employer] [facility] Results Test Description Test Time Test Comments Results Result Comments Source HOMOCYSTEINE PROFILE 2020-11-01 10:10:00 Test Item Value Reference Range Interpretation Comme nts HOMOCYSTEINE (test code = 15.3 umol/L 0.0-14.5 A Pe rformed At: HD [facility] HOMOCY) [address] 770 [id number] So MD Ph:[phone] RAPID PLASMA [id number] 06:11:00 Test Item Value Reference Range Interpretation Comments RAPID PLASMA REAGIN Non Reactive Non Reactive Performe d At: HD (test code = RPR) [facility] [id number] [place], [place] [id number] jyoti So MD Ph:[phone] - CT HEAD/BRAIN W/O [id number] 14:36:00 [facility] 1960 Sex: M Name: OTONIEL HENDERSON [facility] : 1960 Age/S: 60 / M [address] [place] Unit #: [id number] Loc:[place]zy [place] [address] Phys: Ximena Valdes MD Acct: [id number] Dis Date: Status: ADM IN PHONE #: [phone] Exam Date: 10/31/2020 1420 FAX #: Reason: CVA EXAMS: CPT: [id number] CT HEAD/BRAIN W/O CONT [id number] HISTORY: CVA. CT brain, unenhanced. Reformatted sagittal and coronal images. COMPARISON: October 30, 2020, yesterday. Automated exposure control, iterative reconstruction technique, and/or adjustment of mA and/or kV according to patient's sizewas utilized for optimum radiation dose reduction. An unenhanced study of the brain was performed. Similar cortical pattern seen with no areas of cortical hemorrhage or new edema changes. Smaller encephalomalacia in the left occipital cortex. Small microinfarct in the medial thalamus on the left, stable. Hypodensities in the white matter may support chronic microvascular ischemia change or other white matter process but appearing to be fairly stable. No hemorrhage, mass effect, or findings of CVA can be seen. Noevidence of ventricular shift. The posterior fossa structures appear to be intact. Bone window settings do not show any evidence of skull fracture. Visualized sinuses appear to be clear. . IMPRESSION: No acute appearing intracranial abnormality. No findings of hemorrhage or acute CVA can be documented. Location: U19 at 1436 Reported and signed by: Otoniel Busch M.D CC: Ximena Valdes MD; Karen Shoemaker Technologist:RT Ratna (R)(CT) CTDI: DLP: Trnscb Date/Time: 10/31/2020 (1436) [email or web address] Orig Print D/T: S: 10/31/2020 (1556) PAGE 1 Signed ReportSED [id number] 10:34:00 Test Item Value Reference Range Interpretation Comments SED RATE (test code = SEDW) 7 mm/hr 0-15 SED RATE [id number] 10:33:00 Test Item Value Reference Range Interpretation Comments SED RATE WESTERGREN (test code = 7 mm/hr 0-15 N SEDW) [id number] 07:00:00 Test Item Value Reference Range Interpretation Comments GLYCOSYLATED HEMOGLOBIN (HA1C) 5.5 % A1C 0.0-5.7 N (test code = GLYHGB) ESTIMATED AVERAGE GLUCOSE (test 111 MG/DLest code = EAG) BASIC METABOLIC [id number] 06:55:00 Test Item Value Reference Range Interpretation Comments SODIUM (test code = NA) 142 mmol/L 134-147 N POTASSIUM (test code = 4.1 mmol/L 3.4-5.0 N K) CHLORIDE (test code = 113 mmol/L 100-108 H CL) CARBON DIOXIDE (test 22 mmol/L 21-32 N code = CO2) ANION GAP (test code = 7.0 GAP calc 4.0-15.0 N GAP) GLUCOSE (test code = 94 MG/DL 70-110 N GLU) BLOOD UREA NITROGEN 10 MG/DL 7-18 N (test code = BUN) GLOMERULAR FILTRATION >=60 max estimate >60 RATE (test code = GFR) estGFR CREATININE (test code = 1.0 MG/DL 0.8-1.3 N CREAT) CALCIUM (test code = CA) 9.0 MG/DL 8.5-10.1 N Comment: FASTING IN AM PATIENT SHOULD BE FASTING OVERNIGHT 10-12 HRS. TAKE BLOOD TO LABASAP. MUST SEPAPATE SERUM FROM CELLS WITHIN 1 HR AND FREEZE SERUM PROMPTLY.LIPID PROFILE (CORONARY RISK)2020-10-31 06:55:00 Test Item Value Reference Range Interpretation Comments TRIGLYCERIDES (test code = TRIG) 293 MG/DL 0-150 H CHOLESTEROL (test code = CHOL) 211 MG/DL 133-200 H CHOLESTEROL/HDL RATIO (test code = 6.39 RATIO >0 CHOLHDL) HDL CHOLESTEROL (test code = HDL) 33 MG/DL 40-59 L NON-HDL CHOLESTEROL (test code = 178 mg/dL <130 H NHDL) LIPOPROTEIN LDL (test code = LDL) 132 MG/DL 0-129 H LDL/HDL (test code = LDL/HDL) 4.00 Ratio 1.48-3.22 Avg H Comment: FASTING IN AM PATIENT SHOULD BE FASTING OVERNIGHT 10-12 HRS. TAKE BLOOD TO [facility]. MUST SEPAPATE SERUM FROM CELLS WITHIN 1 HR AND FREEZE SERUM PROMPTLY.HOMOCYSTEINE [id number] 06:55:00 Test Item Value Reference Range Interpretation Comments HOMOCYSTEINE (test code = HOMOCY) mcMOL/L <9 Comment: FASTING IN AM PATIENT SHOULD BE FASTING OVERNIGHT 10-12 HRS. TAKE BLOOD TO [facility]. MUST SEPAPATE SERUM FROM CELLS WITHIN 1 HR AND FREEZE SERUM PROMPTLY.CBC W/AUTO [id number] 06:41:00 Test Item Value Reference Range Interpretation Comments WHITE BLOOD CELL (test code = 9.5 K/mm3 3.5-11.0 N WBC) RED BLOOD CELL (test code = 4.46 M/mm3 4.70-6.10 L RBC) HEMOGLOBIN (test code = HGB) 13.5 G/DL 12.3-15.9 N HEMATOCRIT (test code = HCT) 41.0 % 35.8-46.7 N MEAN CELL VOLUME (test code = 91.9 Fl 86.3-98.9 N MCV) MEAN CELL HGB (test code = MCH) 30.3 pg 28.9-34.4 N MEAN CELL HGB CONCETRATION 32.9 G/DL 32.1-34.5 N (test code = MCHC) RED CELL DISTRIBUTION WIDTH 14.4 SD 11.5-14.5 N (test code = RDW) PLATELET COUNT (test code = 212 K/mm3 150-450 N PLT) MEAN PLATELET VOLUME (test code 11.10 fL 7.0-9.6 H = MPV) NEUTROPHIL % (test code = NT%) 66.2 % 40-76 N IMMATURE GRANULOCYTE % (test 0.2 % 0.0-5.0 N code = IG%) LYMPHOCYTE % (test code = LY%) 13.5 % 20.5-51.1 L MONOCYTE % (test code = MO%) 10.8 % 1.7-9.3 H EOSINOPHIL % (test code = EO%) 8.6 % 0.0-6.0 H BASOPHIL % (test code = BA%) 0.7 % 0.0-2.0 N NUCLEATED RBC % (test code = 0.0 /100WBC% 0.0-1.0 N NRBC%) NEUTROPHIL # (test code = NT#) 6.3 K/mm3 1.8-7.6 N IMMATURE GRANULOCYTE # (test 0.02 x10 3/uL 0.00-0.03 N code = IG#) LYMPHOCYTE # (test code = LY#) 1.3 K/mm3 0.6-3.0 N MONOCYTE # (test code = MO#) 1.0 K/mm3 0.2-1.5 N EOSINOPHIL # (test code = EO#) 0.8 K/mm3 0.0-0.4 H BASOPHIL # (test code = BA#) 0.1 K/mm3 0.0-0.2 N NUCLEATED RBC # (test code = 0.0 K/mm3 0.00-0.01 N NRBC#) MANUAL DIFF REQUIRED (test code NO DIFF/SCN CRITERIA = MDIFF) GLUCOSE BEDSIDE [id number] 23:18:00 Test Item Value Reference Range Interpretation Comments GLUCOSE BEDSIDE TESTING (test code = 94 mg/dL 70-110 N GLUBED) COVID 19 INHOUSE [id number] 15:04:00 Test Item Value Reference Range Interpretation Comments COVID 19 INHOUSE AG NEGATIVE Negative Per manu facturer, (test code = negative result s should [id number]) be treated aspr esumptive and, if inconsi stent with clinical signs andsymptoms or necessary for patient man agement, should betested with an alternative mol ecular assay. Negative resultsdo not preclude SA RS-CoV-2 infection and s hould not be usedas the s ole basis for patient man agement decisions. Neg ative results should be considered in t he context of apatient's r ecent exposures, hist ory, presence of cli nicalsigns and symptoms co nsistent with COVID-19. UA RFLX MICR CULT IF [id number] 14:02:00 Test Item Value Reference Range Interpretation Comments UA COLOR (test code = COLU) YELLOW discript YEL/STRAW UA APPEARANCE (test code = CLEAR discript CLEAR APPU) UA GLUCOSE DIPSTICK (test NEGATIVE mg/dL NEG code = DGLUU) UA BILIRUBIN DIPSTICK (test NEGATIVE mg/dL NEG code = BILU) UA KETONE DIPSTICK (test NEGATIVE mg/dL NEG code = KETU) UA SPECIFIC GRAVITY (test <=1.005 SG 1.005-1.030 code = SGU) UA BLOOD DIPSTICK (test NEGATIVE mg/DL NEG code = TOVA) UA PH DIPSTICK (test code = 6.5 pH UNITS 5.0-7.0 YOSEF) UA PROTEIN DIPSTICK (test NEGATIVE mg/dL NEG code = PROU) UA UROBILINIOGEN DIPSTICK 0.2 mg/dL <2.0 (test code = URO) UA NITRITE DIPSTICK (test NEGATIVE SCREEN NEG code = RIRI) UA LEUKOCYTE ESTERASE NEGATIVE Leuk/mcL NEGATIVE DIPSTICK (test code = LEUU) UA CULTURE NEEDED? (test Criteria Culture CHK code = UACULT) Indication for culture: Dysuria/FrequencyUA RFLX MICR CULT IF INDICATED 2020-10-30 14:02:00 Test Item Value Reference Range Interpretation Comments UA COLOR (test code = YELLOW discript YEL/STRAW COLU) UA APPEARANCE (test code CLEAR discript CLEAR = APPU) UA GLUCOSE DIPSTICK (test NEGATIVE mg/dL NEG code = DGLUU) UA BILIRUBIN DIPSTICK NEGATIVE mg/dL NEG (test code = BILU) UA KETONE DIPSTICK (test NEGATIVE mg/dL NEG code = KETU) UA SPECIFIC GRAVITY (test <=1.005 SG 1.005-1.030 code = SGU) UA BLOOD DIPSTICK (test NEGATIVE mg/DL NEG code = TOVA) UA PH DIPSTICK (test code 6.5 pH UNITS 5.0-7.0 = YOSEF) UA PROTEIN DIPSTICK (test NEGATIVE mg/dL NEG code = PROU) UA UROBILINIOGEN DIPSTICK 0.2 mg/dL <2.0 (test code = URO) UA NITRITE DIPSTICK (test NEGATIVE SCREEN NEG code = RIRI) UA LEUKOCYTE ESTERASE NEGATIVE Leuk/mcL NEGATIVE DIPSTICK (test code = LEUU) UA CULTURE NEEDED? (test NO, WBC<10 Criteria Culture CHK code = UACULT) Indication for culture: Dysuria/Frequency- CT ANGIO [id number] 13:00:00 [facility] 1960 Sex: M Name: OTONIEL HENDERSON [facility] : 1960 Age/S: 60 / M [id number] [place] Unit #: [id number] Loc:[place] [address] Phys: Anjum Rivera MD Acct: [id number] Dis Date: Status: PRE ER PHONE #: [phone] Exam Date: 10/30/2020 1235 FAX #: Reason: slurred speech EXAMS: CPT: [id number] CT ANGIO NECK [id number]: - CT ANGIO HEAD, - CT ANGIO NECK. LOCATION: B2. HISTORY: slurred speech. COMPARISON: None. TECHNIQUE: Contiguous axial sections were obtained from the vertex to the aortic arch after administration of intravenous contrast (100 mL Isovue 370). Coronal and sagittal MIPs were available for review. This exam was performed according to our departmental dose-optimization program, which includes automated exposure control, adjustment of the mA and/or kV according to patient size, and/or use of iterative reconstruction technique. FINDINGS: Mixed calcific plaques are seen at the aortic arch. Mixed calcific plaques are seen in bilateral common carotid arteries and carotid bifurcations without significant stenosis. Mixed calcific plaques are seen in bilateral cervical, cavernous, and supraclinoid ICAs without significant stenosis. Intracranially, bilateral ICA bifurcations are normal with patent bilateral anterior and middle cerebral arteries. A 2nd right REECE arises off the left REECE. No stenosis or occlusion is noted on either side. Anterior communicating artery appears unremarkable. The orig in of the left vertebral artery is obscured by venous streak artifact. Bilateral vertebral arteries are patent. Vertebrobasilar junction is normal with normal-appearing basilar artery. Superior cerebellar and posterior cerebral arteries are unremarkable. No aneurysmsare seen in the anterior or posterior circulations. Orbits and globes are intact. Paranasal sinuses and mastoid air cells are clear. No enhancing neck masses are demonstrated. There is no adenopathy in the neck. The thyroid gland appears normal. Lung apices are clear. Remote-appearing left 2nd rib fracture is present. IMPRESSION: No large v essel occlusion is identified. Bilateral carotid atherosclerotic disease without significant PAGE 1 Signed Report (CONTINUED) Name: OTONIEL HENDERSON : 1960 Age/S: 60 / M [id number] [place] Unit #: [id number] Loc: [place] [address] Phys: Anjum Rivera MD Acct: [id number] Dis Date: Status: PRE ER PHONE #: [phone] Date: 10/30/2020 1235 FAX #: Reason: slurred speech EXAMS: CPT: [id number] ANGIO NECK [address] <Continued> stenosis. Findings were personally discussed with Dr. Rivera at 1253 hours on 10/30/2020. All qualitative and quantitative assessments of carotid bifurcation and proximal internal carotid artery stenosis are made referencing the distal internal carotid artery (NASCET criteria). FOR INTERNAL CODING PURPOSES ONLY RESULT CODE: CVR at 1300 Reported and signed by: Katarzyna Lozada M.D. CC: Anjum Rivera MD Technologist:Yohan Love, RT(R)(CT); Kr CTDI: DLP: Trnscb Date/Time: 10/30/2020 (1300) [email or web address] Orig Print D/T: S: 10/30/2020 (0173) PAGE 2 Signed Report- CT ANGIO [id number] 13:00:00 [facility] 1960 Sex: M Name: OTONIEL HENDERSON [facility] : 1960 Age/S: 60 / M [id number] [place] Unit #: [id number] Loc:[place] [address] Phys: Anjum Rivera MD Acct: [id number] Dis Date: Status: PRE ER PHONE #: [phone] Exam Date: 10/30/2020 1233 FAX #: Reason: slurred speech EXAMS: CPT: [id number] CT ANGIO HEAD [id number]: - CT ANGIO HEAD, - CT ANGIO NECK. LOCATION: B2. HISTORY: slurred speech. COMPARISON: None. TECHNIQUE: Contiguous axial sections were obtained from the vertex to the aortic arch after administration of intravenous contrast (100 mL Isovue 370). Coronal and sagittal MIPs were available for review. This exam was performed according to our departmental dose-optimization program, which includes automated exposure control, adjustment of the mA and/or kV according to patient size, and/or use of iterative reconstruction technique. FINDINGS: Mixed calcific plaques are seen at the aortic arch. Mixed calcific plaques are seen in bilateral common carotid arteries and carotid bifurcations without significant stenosis. Mixed calcific plaques are seen in bilateral cervical, cavernous, and supraclinoid ICAs without significant stenosis. Intracranially, bilateral ICA bifurcations are normal with patent bilateral anterior and middle cerebral arteries. A 2nd right REECE arises off the left REECE. No stenosis or occlusion is noted on either side. Anterior communicating artery appears unremarkable. The orig in of the left vertebral artery is obscured by venous streak artifact. Bilateral vertebral arteries are patent. Vertebrobasilar junction is normal with normal-appearing basilar artery. Superior cerebellar and posterior cerebral arteries are unremarkable. No aneurysmsare seen in the anterior or posterior circulations. Orbits and globes are intact. Paranasal sinuses and mastoid air cells are clear. No enhancing neck masses are demonstrated. There is no adenopathy in the neck. The thyroid gland appears normal. Lung apices are clear. Remote-appearing left 2nd rib fracture is present. IMPRESSION: No large v essel occlusion is identified. Bilateral carotid atherosclerotic disease without significant PAGE 1 Signed Report (CONTINUED) Name: OTONIEL HENDERSON : 1960 Age/S: 60 / M [address] [address] [place] Unit #: [id number] Loc: [place] [address] Phys: Anjum Rivera MD Acct: [id number] Dis Date: Status: PRE ER PHONE #: [phone] Date: 10/30/2020 1233 FAX #: Reason: slurred speech EXAMS: CPT: [id number] ANGIO HEAD [id number] <Continued> stenosis. Findings were personally discussed with Dr. Rivera at 1253 hours on 10/30/2020. All qualitative and quantitative assessments of carotid bifurcation and proximal internal carotid artery stenosis are made referencing the distal internal carotid artery (NASCET criteria). FOR INTERNAL CODING PURPOSES ONLY RESULT CODE: CVR at 1300 Reported and signed by: Katarzyna Lozada M.D. CC: Anjum Rivera MD Technologist:Yohan Love, RT(R)(CT); Kr CTDI: DLP: Trnscb Date/Time: 10/30/2020 (1300) [email or web address] Orig Print D/T: S: 10/30/2020 (1833) PAGE 2 Signed ReportBASIC METABOLIC [id number] 12:50:00 Test Item Value Reference Range Interpretation Comments SODIUM (test code = NA) 140 mmol/L 134-147 N POTASSIUM (test code = 3.6 mmol/L 3.4-5.0 N K) CHLORIDE (test code = 109 mmol/L 100-108 H CL) CARBON DIOXIDE (test 24 mmol/L 21-32 N code = CO2) ANION GAP (test code = 7.0 GAP calc 4.0-15.0 N GAP) GLUCOSE (test code = 134 MG/DL 70-110 H GLU) BLOOD UREA NITROGEN 14 MG/DL 7-18 N (test code = BUN) GLOMERULAR FILTRATION >=60 max estimate >60 RATE (test code = GFR) estGFR CREATININE (test code = 1.0 MG/DL 0.8-1.3 N CREAT) CALCIUM (test code = CA) 8.9 MG/DL 8.5-10.1 N Completed by Nursing: [id number] 12:50:00 Test Item Value Reference Range Interpretation Comments TROPONIN-I (test < 0.015 NG/ML 0.000-0.045 N Negative: </= 0.045 code = TROPI) Positive: >/= 0.046 Correlation wit h serial results, other cardiac markers, and cl inical findings is nec essary to determine the c linical significance of this result. Quantit ative results using d ifferent methodologies s hould not be compared to one another as nume rical results may suman yby method. Completed by Nursing: NOPROTHROMBIN [id number] 12:47:00 Test Item Value Reference Range Interpretation Comments PT PATIENT (test code = PTP) 10.5 SECONDS 9.3-12.9 N INTERNATIONAL NORMAL RATIO 0.94 INR Unit 0.8-1.2 N (test code = INR) THROMBOPLASTIN TIME [id number] 12:47:00 Test Item Value Reference Range Interpretation Comments THROMBOPLASTIN TIME PARTIAL 27.9 SECONDS 26-35 N (test code = PTT) BASIC METABOLIC [id number] 12:43:00 Test Item Value Reference Range Interpretation Comments SODIUM (test code = NA) 140 mmol/L 134-147 N POTASSIUM (test code = K) 3.6 mmol/L 3.4-5.0 N CHLORIDE (test code = CL) 109 mmol/L 100-108 H CARBON DIOXIDE (test code = CO2) 24 mmol/L 21-32 N ANION GAP (test code = GAP) 7.0 GAP calc 4.0-15.0 N GLUCOSE (test code = GLU) 134 MG/DL 70-110 H BLOOD UREA NITROGEN (test code = 14 MG/DL 7-18 N BUN) GLOMERULAR FILTRATION RATE (test estGFR >60 code = GFR) CREATININE (test code = CREAT) MG/DL 0.8-1.3 CALCIUM (test code = CA) 8.9 MG/DL 8.5-10.1 N Completed by Nursing: [id number] 12:43:00 Test Item Value Reference Range Interpretation Comments TROPONIN-I (test code = TROPI) NG/ML 0.000-0.045 Completed by Nursing: NO- CT HEAD/BRAIN W/O [id number] 12:40:00 [facility] 1960 Sex: M Name: OTONIEL HENDERSON [facility] : 1960 Age/S: 60 / M [address] [place] Unit #: [id number] Loc:[place] [address] Phys: Anjum Rivera MD Acct: [id number] Dis Date: Status: PRE ER PHONE #: [phone] Exam Date: 10/30/2020 1231 FAX #: Reason: Code Stroke EXAMS: CPT: [id number] CT HEAD/BRAIN W/O CONT [id number]: - CT HEAD/BRAIN W/O CONT. LOCATION: S17. HISTORY: Code Stroke, right-sided weakness, slurred speech, history of stroke. COMPARISON: None. TECHNIQUE: Routine CT of the head was performed without intravenous contrast as per protocol. One or more the following dose reduction techniques were used: Automated exposure control, adjustment of mA and/or kV according to patient size, and use of iterative reconstruction technique. FINDINGS: Brain Parenchyma: No hemorrhage or infarction. No mass effect or midline shift. There are low attenuation regions within the periventricular white matter, this is nonspecific, most commonly associated with microvascular ischemic changes. Atherosclerotic vascular calcifications. Small region of encephalomalacia involving left thalamus and left occipital lobe. Extra Axial Spaces: Unremarkable. Ventricular System: Unremarkable. Osseous Structures: Unremarkable. Visualized Paranasal Sinuses: Unremarkable. IMPRESSION: No acute intracranial abnormality nor hemorrhage. Findings discussed with MD Miguel at 10/30/2020 12:35 PM. FOR INTERNAL CODING PURPOSES ONLY RESULT CODE: CVRMD PAGE 1 Signed Report (CONTINUED) Name: OTONIEL HENDERSON [facility] : 1960 Age/S: 60 / M [address] Unit #: [id number] Loc: [place] [address] Phys: Anjum Rivera MD Acct: [id number] Dis Date: Status: PRE ER PHONE #: [phone] Exam Date: 10/30/2020 1231 FAX #: Reason: Code Stroke EXAMS: CPT: [id number] CT HEAD/BRAIN W/O CONT 24768 <Continued> at 1240 Reported and signed by: Manjinder Antonio M.D. CC: Anjum Rivera MD Technologist:Yohan Love, RT(R)(CT); Kr CTDI: DLP: Trnscb Date/Time: 10/30/2020 (1240) [email or web address] Orig Print D/T: S: 10/30/2020 (7677) PAGE 2 Signed ReportCBC W/O [id number] 12:35:00 Test Item Value Reference Range Interpretation Comments WHITE BLOOD CELL (test code = WBC) 8.4 K/mm3 3.5-11.0 N RED BLOOD CELL (test code = RBC) 4.54 M/mm3 4.70-6.10 L HEMOGLOBIN (test code = HGB) 13.7 G/DL 12.3-15.9 N HEMATOCRIT (test code = HCT) 40.2 % 35.8-46.7 N MEAN CELL VOLUME (test code = MCV) 88.5 Fl 86.3-98.9 N MEAN CELL HGB (test code = MCH) 30.2 pg 28.9-34.4 N MEAN CELL HGB CONCETRATION (test 34.1 G/DL 32.1-34.5 N code = MCHC) RED CELL DISTRIBUTION WIDTH (test 14.0 SD 11.5-14.5 N code = RDW) PLATELET COUNT (test code = PLT) 205 K/mm3 150-450 N MEAN PLATELET VOLUME (test code = 10.70 fL 7.0-9.6 H MPV) GLUCOSE BEDSIDE [id number] 12:29:00 Test Item Value Reference Range Interpretation Comments GLUCOSE BEDSIDE TESTING (test code 140 mg/dL 70-110 H = GLUBED) BASIC METABOLIC [id number] 06:50:00 Test Item Value Reference Range Interpretation Comments SODIUM (test code 140 MMOL/L 136-143 N = NA) POTASSIUM (test 3.7 MMOL/L 3.5-5.1 N code = K) CHLORIDE (test 109 MMOL/L 98-107 H code = CL) CARBON DIOXIDE 20 mmol/L 24-31 L (test code = CO2) GLUCOSE (test code 82 mg/dL 70-104 N = GLU) BLOOD UREA 12.3 MG/DL 7.0-21.0 N NITROGEN (test code = BUN) GLOMERULAR >=60 max >60 The estimated FILTRATION RATE estimate glomerular (test code = GFR) filtration rate is computed usingpatient ra ce, age (>18), sex, and serum creatinin e. If anyof the neede d data elements a re missing the Laboratory marce ot compute an estimation of t he glomerular filtration rate . CREATININE (test 0.6 mg/dL 0.8-1.5 L code = CREAT) CALCIUM (test code 8.8 mg/dL 8.8-10.2 N = CA) CBC W/AUTO [id number] 06:40:00 Test Item Value Reference Range Interpretation [...] BA#) 0.07 x10 3/uL 0.0-0.20 N VANCOMYCIN [id number] 13:34:00 Test Item Value Reference Range Interpretation Comments VANCOMYCIN TROUGH (test code = 14.4 mcg/ML 10.0-20.0 N VANCT) Spec Comments: RN PLS DRAW VANCO 30MIN BEFORE DOSE DUE ON 01/30 BASIC METABOLIC [id number] 04:08:00 Test Item Value Reference Range Interpretation [...] code 8.8 mg/dL 8.8-10.2 N = CA) [id number] 04:08:00 Test Item Value Reference Range Interpretation Comments MAGNESIUM (test code = MAG) 1.7 mg/dL 1.4-2.6 N CBC W/AUTO [id number] 03:56:00 Test Item Value Reference Range Interpretation [...] 0.09 x10 3/uL 0.0-0.20 N BASIC METABOLIC [id number] 21:22:00 Test Item Value Reference Range Interpretation [...] mg/dL 8.8-10.2 N = CA) RENAL FUNCTION [id number] 21:22:00 Test Item Value Reference Range Interpretation Comments ALBUMIN (test code = ALB) 3.4 G/DL 3.5-5.0 L PHOSPHOROUS (test code = PHOS) 2.0 mg/dL 2.7-4.5 L LIVER FUNCTION [id number] 21:22:00 Test Item Value Reference Range Interpretation [...] = 63 U/L 45-120 N ALKP) LACTIC [id number] 21:18:00 Test Item Value Reference Range Interpretation Comments LACTIC ACID (test code = LACT) 9.4 mg/dL 4.5-18.0 N PROTHROMBIN [id number] 21:12:00 Test Item Value Reference Range Interpretation [...] 2.5-3.5recurren t systemic emboli sm. THROMBOPLASTIN TIME [id number] 21:12:00 Test Item Value Reference Range Interpretation Comments THROMBOPLASTIN TIME 28.6 SECONDS 26.0-35.9 N INTERPRE TATIVE PARTIAL (test code = DATA: erapeutic PTT) range: Unfractionated heparin:47 - 71 seconds Argatroban:1.5 to 3 times the basel ine PTT PROTHROMBIN [id number] 21:09:00 Test Item Value Reference Range Interpretation [...] 2.5-3.5recurren t systemic emboli sm. THROMBOPLASTIN TIME [id number] 21:09:00 Test Item Value Reference Range Interpretation Comments THROMBOPLASTIN TIME PARTIAL (test SECONDS 26.0-35.9 code = PTT) CBC W/AUTO [id number] 21:08:00 Test Item Value Reference Range Interpretation [...] 0.05 x10 3/uL 0.0-0.20 N CBC W/MANUAL [id number] 05:21:00 Test Item Value Reference Range Interpretation [...] code NORMAL NORMAL = PLTMORPH) RENAL FUNCTION [id number] 05:20:00 Test Item Value Reference Range Interpretation [...] 2.5 mg/dL 2.7-4.5 L code = PHOS) [id number] 05:20:00 Test Item Value Reference Range Interpretation Comments MAGNESIUM (test code = MAG) 1.8 mg/dL 1.4-2.6 N CBC W/MANUAL [id number] 04:48:00 Test Item Value Reference Range Interpretation [...] code = LYMPH) % 20.5-45.5 CBC W/MANUAL [id number] 04:48:00 Test Item Value Reference Range Interpretation [...] (test code = LYMPH) % 20.5-45.5 SURGICAL [id number] 12:52:00 RUN DATE: 01/29/20 [facility] - LAB PAGE 1 RUN TIME: 1252 Specimen Inquiry RUN USER: INTERFACE PATIENT: OTONIEL HENDERSON LOC: P.7S POD C U #: [id number] AGE/SX: 59/M ROOM: [facility] RE01/25/20REG DR: Cristopher Doty MD : [birth year] BED: 1 DIS: STATUS: ADM IN TLOC: SPEC #: [id number] RECD: 01/28/20 STATUS: FAINA CASTANON #: [id number] SIMON: 01/28/[address] [facility] [address]: Cristopher Doty MD ENTERED: 01/28/20 SP TYPE: SURG OTHR DR: Roxanna Primary or Family Physician Mio Gilbert MD No,DocORDERED: PATHGM3, PATHGM5/2, PATH SPEC, H E STAIN HISTOLOGY: TISSUE ID BLK PCS PARISH LEV / PROCEDURE DISPOSITION ____ ___ ___ ___ ___ COLON SEG NTUMR A 18 1 TISSUES: A. COLON SEGMENTAL [id number] - Sigmoid Colon Proximal Rectum Anastomatic Donuts, [...] CONTINUED ON NEXT PAGE RUN DATE: 01/29/20 [facility] - LAB PAGE 2 RUN TIME: 1252 Specimen Inquiry RUN USER: INTERFACE SPEC #: [id number] PATIENT: OTONIEL HENDERSON #[id number] (Continued) GROSS DESCRIPTION (Continued) 2.4 x 2 [...] A16-A18: Ring-shaped donut #2 (with blue sutures) COATING MIXER/th MICROSCOPIC DESCRIPTION Microscopic examination performed. Signed SIGNATURE ON FILE Nita Ashford 01/29/20 1252 END OF REPORT BASIC METABOLIC [id number] 08:29:00 Test Item Value Reference Range Interpretation [...] code 9.2 mg/dL 8.8-10.2 N = CA) [id number] 08:29:00 Test Item Value Reference Range Interpretation Comments MAGNESIUM (test code = MAG) 1.3 mg/dL 1.4-2.6 L CBC W/AUTO [id number] 08:04:00 Test Item Value Reference Range Interpretation [...] x10 3/uL 0.0-0.20 N Novel Coronavirus 2018 [id number] 14:20:00 Test Item Value Reference Range Interpretation Comments Novel Coronavirus NEGATIVE Positive r esults are 2019 nCoV (test indicative o f the presence code = COVID19) icPYPR-UmI-3 RNA, clinical correlation wit h patient historyand [...] for the identification of SARS-CoV-2 RNA usingthe [employer] M2000 Sy stem under the FDA Emergen cy UseAuthorizatio n. The testing is perf ormed by personneltraine d in the procedures for the [employer] M2000 molecular diagnostic SARS-CoV-2 assa y in vitro. NEGATIVE Value reported toFirst Name: SAVITA Last Name:[facility] RESULTS READ BACK AND VERIFIEDbyP.LAB.RS, on 01/26/20, @ 1934.- XR ABDOMEN [id number] 14:18:00Patient Name: OTONIEL HENDERSON Unit No: [id number] EXAMS: CPT CODE: [id number] XR ABDOMEN 1V 73571 Abdomen one view supine 01/28/2020 CLINICAL INDICATION: [...] Printed Date/Time: 01/28/2020 (1421) Name: [facility]EL [facility] Phys: José Antonio Zamora MD [address] : 1960 Age: 59 Sex: [place] [address] Loc: P.0733 1 Exam Date: 01/28/2020 Status: ADM IN PH: FAX: PAGE 1 Signed ReportCOMPREHENSIVE METABOLIC [id number] 07:39:00 Test Item Value Reference Range Interpretation [...] 45-120 N PHOSPHATASE (test code = ALKP) [id number] 07:39:00 Test Item Value Reference Range Interpretation Comments MAGNESIUM (test code = MAG) 1.4 mg/dL 1.4-2.6 N CBC W/AUTO [id number] 07:12:00 Test Item Value Reference Range Interpretation [...] = BA#) 0.10 x10 3/uL 0.0-0.20 N [id number] 15:08:00 Test Item Value Reference Range Interpretation Comments LITHIUM (test 0.5 mmol/L 0.6-1.2 L code = LITH) Detection Limit = 0.1 <0.1 indicate s None DetectedPerform ed At: [address] [id number] So MD Ph:[phone] [id number] 15:08:00 Test Item Value Reference Range Interpretation Comments LITHIUM (test 0.5 mmol/L 0.6-1.2 L code = LITH) Detection Limit = 0.1 <0.1 indicate s None DetectedPerform ed At: [address] [id number] So MD Ph:[phone] Novel Coronavirus 2019 [id number] 07:11:00 Test Item Value Reference Range Interpretation [...] PHOSPHATASE (test code = ALKP) CBC W/AUTO [id number] 04:21:00 Test Item Value Reference Range Interpretation [...] 3/uL 0.0-0.20 N - CT ABD PELVIS [id number] 09:58:00Patient Name: OTONIEL HENDERSON Unit No: [id number] EXAMS: CPT CODE: [id number] CT ABD PELVIS W/CONT 12391 CT abdomen and pelvis with IV contrast. [...] Additional findings as above. Name: OTONIEL [facility] Phys: [email or web address] - Norbert William MD [address] : 1960 Age: 59 Sex: [place] [address] Loc: P.0723 1 Exam Date: 01/26/2020 Status: ADM IN PH: FAX: PAGE 1 Signed Report (CONTINUED) Patient Name: OTONIEL HENDERSON Unit No: [id number] EXAMS: CPT CODE: [id number] CT ABD PELVIS W/CONT 76849 <Continued> at 0958 Reported and signed by: OTONIEL ROSSI M.D. CC: Cristopher Doty MD; Norbert William MD Technologist: ANTONIO Martin(Jeannine)(CT) CTDI: 11.68 DLP: 602 Trscr Dt/Tm: 01/26/2020 (0958) by:[email or web address] Printed Date/Time: 01/26/2020 (1001)Name: OTONIEL [facility] Phys: - Norbert William MD [address] : 1960 Age: 59 Sex: [place] [address] Loc: P.0723 1 Exam Date: 01/26/2020 Status: ADM IN PH: FAX: PAGE 2 Signed ReportCOMPREHENSIVE METABOLIC [id number] 05:50:00 Test Item Value Reference Range Interpretation [...] PHOSPHATASE (test code = ALKP) CBC W/AUTO [id number] 04:55:00 Test Item Value Reference Range Interpretation [...] 0.15 x10 3/uL 0.0-0.20 N COMPREHENSIVE METABOLIC [id number] 18:44:00 Test Item Value Reference Range Interpretation [...] N PHOSPHATASE (test code = ALKP) PROTHROMBIN [id number] 18:32:00 Test Item Value Reference Range Interpretation [...] 2.5-3.5recurren t systemic emboli sm. CBC W/AUTO [id number] 18:26:00 Test Item Value Reference Range Interpretation [...]
[2021-03-01] MEDS ORDERED: predniSONE 20 MG TAB ONE (23:10)
[2021-03-01] MEDS ORDERED: IPRATROPIUM BROM 0.5MG/2.5ML ONE (23:11)
[2021-03-01] MEDS ORDERED: ALBUTEROL 2.5 MG/3 ML NEB SOL ONE (23:11)
--- NOTE | 2021-03-01 23:39 | ER ---
Nurse's Notes [facility] Name: Gregory Dumont Age: 60 yrs Sex: Male : 1960 Arrival Date: 03/01/2021 Time: 19:52 Bed 20 Private MD: Diagnosis: Bronchitis, not specified as acute or chronic Presentation: 03/01 20:01 Chief complaint: Patient states: L rib pain and a lot of coughing with phlegm started ca1 about a week [employer]. Denies chest pain. Coronavirus screen: Client denies travel out of the [place] in the last 14 days. cough unrelated to allergies, Client presents with at least one sign or symptom that may indicate coronavirus-19. Standard/surgical mask placed on the client. Provider contacted for isolation considerations. Ebola Screen: Patient negative for fever greater than or equal to 101.5 degrees Fahrenheit, and additional compatible Ebola Virus Disease symptoms Patient denies exposure to infectious person. Patient denies travel to an Ebola-affected area in the 21 days before illness onset. No symptoms or risks identified at this time. Initial Sepsis Screen: Does the patient meet any 2 criteria? No. Patient's initial sepsis screen is negative. Does the patient have a suspected source of infection? No. Patient's initial sepsis screen is negative. Risk Assessment: Do you want to hurt yourself or someone else? Patient reports no desire to harm self or others. Onset of symptoms was March 01, 2021. 20:01 Method Of Arrival: Ambulatory ca1 20:01 Acuity: MARION 3 ca1 Historical: - Allergies: 20:06 NKA; ca1 - PMHx: 20:06 ADD/ADHD; Bipolar disorder; CVA; Diverticulitis; HEP C; HYPOGLYCEMIA; Irregular heart ca1 rate; - PSHx: 20:06 None; ca1 - Immunization history:: Client reports receiving the 1st dose of the Covid vaccine, Flu vaccine is up to date. - Social history:: Smoking status: Patient reports the use of cigarette tobacco products, smokes three packs cigarettes per day. Screenin:44 Abuse screen: Denies threats or abuse. Denies injuries from another. Nutritional rr5 screening: No deficits noted. Tuberculosis screening: No symptoms or risk factors identified. Fall Risk None identified. Total Mcdaniel Fall Scale indicates No Risk (0-24 pts). Assessment: 20:06 Reassessment:. ca1 22:30 General: Appears in no apparent distress. comfortable, Behavior is calm, cooperative, rr5 appropriate for age. 22:30 Pain: Complains of pain in diaphragm Pain Quality of pain is described as aching, Pain rr5 began gradually, Is intermittent. Neuro: Level of Consciousness is awake, alert, obeys commands, Oriented to person, place, time. Cardiovascular: Capillary refill < 3 seconds Patient's skin is warm and dry. Respiratory: Reports pain with cough Airway is patent Respiratory effort is even, unlabored, Respiratory pattern is regular, symmetrical. GI: No signs and/or symptoms were reported involving the gastrointestinal system. : No signs and/or symptoms were reported regarding the genitourinary system. EENT: No signs and/or symptoms were reported regarding the EENT system. Derm: Skin temperature is warm. Musculoskeletal: Capillary refill < 3 seconds. 23:42 Reassessment: Patient appears in no apparent distress at this time. Patient is alert, rr5 oriented x 3, equal unlabored respirations, skin warm/dry/pink. discharge instruction given and explained without complaints made Patient states feeling better. Patient states symptoms have improved. Vital Signs: 20:01 BP 123 / 83; Pulse 66; Resp 18 S; Temp 97.8(TE); Pulse Ox 95% on R/A; Weight 72.57 kg ca1 (M); Height 5 ft. 11 in. (180.34 cm) (R); Pain 10/10; 22:30 BP 141 / 70; Pulse 76; Resp 20; Pulse Ox 97% ; rr5 23:44 BP 126 / 75; Pulse 70; Resp 19; Pulse Ox 98% ; rr5 20:01 Body Mass Index 22.32 (72.57 kg, 180.34 cm) ca1 ED Course: 19:52 Patient arrived in ED. am4 20:05 Triage completed. ca1 20:06 Arm band placed on right wrist. ca1 22:05 CXR XRAY In Process Unspecified. EDMS 22:27 Reynold Ga, RN is Primary Nurse. rr5 22:27 Himanshu Yates NP is PHCP. pm1 22:27 Luis Fernando Mott MD is Attending Physician. pm1 23:00 Patient has correct armband on for positive identification. Pulse ox on. NIBP on. rr5 23:46 No provider procedures requiring assistance completed. Patient did not have IV access rr5 during this emergency room visit. Patient maintains SpO2 saturation greater than 95% on room air. Administered Medications: 23:05 Drug: Albuterol - atroVENT (ipratropium) (3:1) (2.5 mg - 0.5 mg) 3 ml Route: Nebulizer; rr5 23:47 Follow up: Response: No adverse reaction; Marked relief of symptoms rr5 23:05 Drug: predniSONE 60 mg Route: PO; rr5 23:47 Follow up: Response: No adverse reaction rr5 Outcome: 23:39 Discharge ordered by MD. pm1 23:46 Discharged to home ambulatory. rr5 23:46 Condition: stable 23:46 Discharge instructions given to patient, Instructed on discharge instructions, follow up and referral plans. medication usage, Demonstrated understanding of instructions, follow-up care, medications, Prescriptions given X 2. 23:48 Patient left the ED. rr5 Signatures: Dispatcher [employer] EDMS Himanshu Yates, KIRK CLIENT RESOURCE SPECIALIST pm1 Reynold Ga RN RN rr5 Phoebe Etienne RN RN ca1 Estefania Donovan 4
--- NOTE | 2021-03-01 23:39 | EDPHYS ---
Physician Documentation [facility] Name: Gregory Dumont Age: 60 yrs Sex: Male : 1960 Arrival Date: 03/01/2021 Time: 19:52 Bed 20 Private MD: ED Physician Luis Fernando Mott HPI: 03/01 22:45 This 60 yrs old Male presents to ER via Ambulatory with complaints of L rib pm1 pain, Painful Cough. 22:45 The patient or guardian reports cough, with productive sputum, that is yellow. Onset: pm1 The symptoms/episode began/occurred 1 week(s) ago. Severity of symptoms: in the emergency department the symptoms are unchanged. Modifying factors: The symptoms are alleviated by nothing, the symptoms are aggravated by nothing. Associated signs and symptoms: Pertinent positives: left lower rib pain. The patient has not recently seen a physician. Historical: - Allergies: 20:06 NKA; ca1 - PMHx: 20:06 ADD/ADHD; Bipolar disorder; CVA; Diverticulitis; HEP C; HYPOGLYCEMIA; Irregular heart ca1 rate; - PSHx: 20:06 None; ca1 - Immunization history:: Client reports receiving the 1st dose of the Covid vaccine, Flu vaccine is up to date. - Social history:: Smoking status: Patient reports the use of cigarette tobacco products, smokes three packs cigarettes per day. ROS: 22:45 Constitutional: Negative for fever, chills, and weight loss, Eyes: Negative for injury, pm1 pain, redness, and discharge, ENT: Negative for injury, pain, and discharge, Neck: Negative for injury, pain, and swelling, Cardiovascular: Negative for chest pain, palpitations, and edema. 22:45 Abdomen/GI: Negative for abdominal pain, nausea, vomiting, diarrhea, and constipation, Back: Negative for injury and pain. 22:45 MS/Extremity: Negative for injury and deformity, Skin: Negative for injury, rash, and discoloration, Neuro: Negative for headache, weakness, numbness, tingling, and seizure. 22:45 Respiratory: Positive for cough, wheezing, sputum, Negative for shortness of breath. Exam: 22:45 Constitutional: This is a well developed, well nourished patient who is awake, alert, pm1 and in no acute distress. Head/Face: Normocephalic, atraumatic. Eyes: Pupils equal round and reactive to light, extra-ocular motions intact. Lids and lashes normal. Conjunctiva and sclera are non-icteric and not injected. Cornea within normal limits. Periorbital areas with no swelling, redness, or edema. ENT: Nares patent. No nasal discharge, no septal abnormalities noted. Tympanic membranes are normal and external auditory canals are clear. Oropharynx with no redness, swelling, or masses, exudates, or evidence of obstruction, uvula midline. Mucous membranes moist. Neck: Trachea midline, no thyromegaly or masses palpated, and no cervical lymphadenopathy. Supple, full range of motion without nuchal rigidity, or vertebral point tenderness. No Meningismus. 22:45 Chest/axilla: Normal chest wall appearance and motion. Nontender with no deformity. No lesions are appreciated. Cardiovascular: Regular rate and rhythm with a normal S1 and S2. No gallops, murmurs, or rubs. Normal PMI, no JVD. No pulse deficits. 22:45 Back: No spinal tenderness. No costovertebral tenderness. Full range of motion. Skin: Warm, dry with normal turgor. Normal color with no rashes, no lesions, and no evidence of cellulitis. MS/ Extremity: Pulses equal, no cyanosis. Neurovascular intact. Full, normal range of motion. 22:45 Respiratory: the patient does not display signs of respiratory distress, Breath sounds: wheezing: expiratory that is mild, is heard in the right posterior upper lobe, right posterior middle lobe and right posterior lower lobe. 22:45 Abdomen/GI: Inspection: abdomen appears normal, Palpation: abdomen is soft and non-tender, in all quadrants. 22:45 Neuro: Exam negative for acute changes, Orientation: is normal, Mentation: is normal, Motor: is normal, moves all fours. Vital Signs: 20:01 BP 123 / 83; Pulse 66; Resp 18 S; Temp 97.8(TE); Pulse Ox 95% on R/A; Weight 72.57 kg ca1 (M); Height 5 ft. 11 in. (180.34 cm) (R); Pain 10/10; 22:30 BP 141 / 70; Pulse 76; Resp 20; Pulse Ox 97% ; rr5 23:44 BP 126 / 75; Pulse 70; Resp 19; Pulse Ox 98% ; rr5 20:01 Body Mass Index 22.32 (72.57 kg, 180.34 cm) ca1 MDM: 22:27 Patient medically screened. pm1 23:38 Data reviewed: vital signs. Data interpreted: Pulse oximetry: on room air is 95 %. pm1 Interpretation: normal. Counseling: I had a detailed discussion with the patient and/or guardian regarding: the historical points, exam findings, and any diagnostic results supporting the discharge/admit diagnosis, lab results, radiology results, the need for outpatient follow up, to return to the emergency department if symptoms worsen or persist or if there are any questions or concerns that arise at home. 03/01 21:17 Order name: SARS-COV-2 RT PCR; Complete Time: 22:28 EDMS 03/01 21:11 Order name: CXR XRAY iw Administered Medications: 23:05 Drug: Albuterol - atroVENT (ipratropium) (3:1) (2.5 mg - 0.5 mg) 3 ml Route: Nebulizer; rr5 23:47 Follow up: Response: No adverse reaction; Marked relief of symptoms rr5 23:05 Drug: predniSONE 60 mg Route: PO; rr5 23:47 Follow up: Response: No adverse reaction rr5 Disposition: 03/02 06:11 Co-signature as Attending Physician, Luis Fernando Mott MD. pkl Disposition: 03/01/21 23:39 Discharged to Home. Impression: Bronchitis, not specified as acute or chronic. - Condition is Stable. - Discharge Instructions: Acute Bronchitis, Adult, How to Use an Inhaler, Cough, Adult. - Prescriptions for Prednisone 20 mg Oral Tablet - take 3 tablet by ORAL route once daily for 5 days; 15 tablet. Albuterol Sulfate 90 mcg/actuation - inhale 1-2 puff by INHALATION route every 4-6 hours; 1 Inhaler. Guaifenesin AC 10- 100 mg/5 mL Oral Liquid - take 10 milliliter by ORAL route every 4 hours As needed; 240 milliliter. - Medication Reconciliation Form, Thank You Letter, Antibiotic Education, Prescription Opioid Use form. - Follow up: Emergency Department; When: As needed; Reason: Worsening of condition. Follow up: Private Physician; When: 2 - 3 days; Reason: Recheck today's complaints, Continuance of care, Re-evaluation by your physician. - Problem is new. - Symptoms have improved. Signatures: Dispatcher [employer] [facility] Luis Fernando Mott MD MD pkl Himanshu Yates, TRANSITION LEAD TRANSITION LEAD pm1 Reynold Ga, RN RN rr5 Phoebe Etienne RN RN ca1 Corrections: (The following items were deleted from the chart) 03/01 20:31 20:08 CORONAVIRUS+ ordered. [facility] 23:48 23:39 03/01/2021 23:39 Discharged to Home. Impression: Bronchitis, not specified as rr5 acute or chronic. Condition is Stable. Forms are Medication Reconciliation Form, Thank You Letter, Antibiotic Education, Prescription Opioid Use. Follow up: Emergency Department; When: As needed; Reason: Worsening of condition. Follow up: Private Physician; When: 2 - 3 days; Reason: Recheck today's complaints, Continuance of care, Re-evaluation by your physician. Problem is new. Symptoms have improved. pm1
[2021-03-02] VITALS: TEMP 97.8
[2021-03-02 00:30] VITALS: BP 126/75; O2SAT 98
--- NOTE | 2021-03-02 07:39 | RAD REPORT ---
EXAM DESCRIPTION: [place] Single View03/01/2021 10:05 pm CLINICAL HISTORY: Cough COMPARISON: 2019 FINDINGS: Lungs appear clear of acute infiltrate. The heart is normal size. Aorta is tortuous/ectatic. Old left rib fractures noted
== END 2021-03-01 23:48 | disposition home or self-care (01) ==
LOC: ER 19:49
DX: J40 Bronchitis, not specified as acute or chronic (principal); F17.210 Nicotine dependence, cigarettes, uncomplicated; Z20.822 Contact with and (suspected) exposure to COVID-19
CPT/HCPCS: 71045; U0003; 99285; J7512

== ENCOUNTER 2021-04-04 19:48 | Emergency (ER) | payer OTHER ==
--- OUTSIDE RECORDS SUMMARY | 2021-04-04 20:03 | XMS REPORT | Continuity of Care Document ---
:1960 Author Organization [facility] t Address 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 kes - itis itis Memoria involving involving l multiple multiple Outpat i joints joints ent Clinics Smoker Smoker Problem [facility] Essential Essential Problem Active [facility] hypertensi hypertensi Greta kes - on on Memoria l [facility] Other Other Problem Active [...] Allergie 10-30 Clear s 00:00: Patel 00 [facility] No Known DA Active [facility] Allergie 4-10 Greig s 00:00: [facility] 00 are [facility] Medications Ordered Filled Start Stop Current Ordering Indication Dosage Frequency Signature Comments Components Source Medication Medication Date Date Medication? Clinician (SIG) Name Name Lisa Gonzalez Yes Na Gomes 2 spray in [facility] 8-07 each [facility] 00:[facility]: nostril [facility] 00 l Outpati ent Clinics Procedures This patient has no known procedures. Encounters Start End Encounter Admission Attending Care Care Encounter Source Date/Time Date/Time Type Type Clinicians Facility Department ID 2020-06-20 2020-06-20 [facility] [id number] [facility] 10:36:00 10:36:00 t DataRPM [facility] l Medicine Outpati ent Clinics 2020-05-23 2020-05-23 [facility] [id number] [address] 16:20:00 16:20:00 [employer] [facility] Medicine Medicine Outpati ent Clinics 2020-05-23 2020-05-23 [facility] [id number] 15:25:00 15:25:00 t DataRPM [facility] Medicine l Medicine Outpati ent Clinics 2020-01-01 2020-01-01 [facility] [id number] 16:10:00 16:10:00 t DataRPM [facility] Medicine Medicine Outpati ent Clinics 2019-12-26 2019-12-26 [facility] [id number] [address] 08:44:00 08:44:00 t DataRPM [facility] Medicine l Medicine Outpati ent Clinics 2019-12-05 2019-12-05 [facility] [id number] 15:07:00 15:07:00 t DataRPM [facility] Medicine Medicine Outpati ent Clinics 2019-09-24 2019-09-24 [facility] [id number] 09:27:00 09:27:00 t DataRPM [facility] Medicine Medicine Outpati ent Clinics 2019-09-06 2019-09-06 [facility] [id number] 12:00:00 12:00:00 [address] - [employer] [facility] Medicine l Medicine Outpati ent Clinics 2019-08-18 2019-08-18 [facility] [id number] 17:55:00 17:55:00 t [address] [employer] [address] [facility] l Medicine Outpati ent Clinics 2019-08-01 2019-08-01 [facility] [id number] 09:00:00 09:00:00 t [employer] [employer] [facility] Medicine l Medicine Outpati ent Clinics 2019-06-07 2019-06-07 [facility] [id number] 11:20:00 11:20:00 t [employer] [facility] l Medicine Outpati ent Clinics 2019-01-04 2019-01-04 [facility] [id number] 14:04:00 14:04:00 t [employer] [facility] l Medicine Outpati ent Clinics 2018-11-23 2018-11-23 [facility] [id number] 09:15:00 09:15:00 t Urgent Ur[facility] L [facility] l Outpati ent Clinics 2018-11-20 2018-11-20 [facility] [id number] 10:13:00 10:13:00 t PROFICIO s [employer] [facility] l Medicine Outpati ent Clinics 2018-11-15 2018-11-15 [facility] [id number] 15[facility]15:00 15:15:00 t [employer] [facility] Medicine l Medicine Outpati ent Clinics 2018-10-09 2018-10-09 [facility] [id number] 10:19:00 10:19:00 t [employer] [facility] Medicine l Medicine Outpati ent Clinics 2018-06-02 2018-06-02 [facility] [id number] 16:46:00 16:46:00 t [employer] [facility] Medicine l Medicine Outpati ent Clinics 2018-05-11 2018-05-11 [facility] [id number] 09:45:00 09:45:00 t PROFICIO s [employer] [facility] Medicine [facility] Clin[facility] Results Test Description Test Time Test Comments Results Result Comments Source HOMOCYSTEINE PROFILE 2020-11-01 10:10:00 Test Item Value Reference Range Interpretation Comme nts HOMOCYSTEINE (test code = 15.3 umol/L 0.0-14.5 A Pe rformed At: HD [facility] HOMOCY) [address] 770 [id number] So MD Ph:[phone] RAPID PLASMA [id number] 06:11:00 Test Item Value Reference Range Interpretation Comments RAPID PLASMA REAGIN Non Reactive Non Reactive Performe d At: HD (test code = RPR) [facility] [address] [place], [place] [id number] jyoti So MD Ph:[phone] - CT HEAD/BRAIN W/O [id number] 14:36:00 [facility] 1960 Sex: M Name: OTONIEL HENDERSON [facility] : 1960 Age/S: 60 / M [address] Unit #: [id number] Loc:[place] [address] Phys: Ximena Valdes MD Acct: [id number] Dis Date: Status: ADM IN PHONE #: [phone] Exam Date: 10/31/2020 1420 FAX #: Reason: CVA EXAMS: CPT: [id number] CT HEAD/BRAIN W/O CONT [id number] HISTORY: CVA. CT brain, unenhanced. Reformatted sagittal [...] (1436) t.GERMAINR.RCM1 Orig Print D/T: S: 10/31/2020 (6922) PAGE 1 Signed ReportSED [id number] 10:34:00 Test Item Value Reference Range Interpretation Comments SED RATE (test code = SEDW) 7 mm/hr 0-15 SED RATE [id number] 10:33:00 Test Item Value Reference Range Interpretation Comments SED RATE WESTERGREN (test code = 7 mm/hr 0-15 N SEDW) [id number] 07:00:00 Test Item Value Reference Range Interpretation Comments GLYCOSYLATED HEMOGLOBIN (HA1C) 5.5 % A1C 0.0-5.7 N (test code = GLYHGB) ESTIMATED AVERAGE GLUCOSE (test 111 MG/DLest code = EAG) BASIC METABOLIC [id number] 06:55:00 Test Item Value Reference Range Interpretation [...] WITHIN 1 HR AND FREEZE SERUM PROMPTLY.HOMOCYSTEINE [id number] 06:55:00 Test Item Value Reference Range Interpretation Comments HOMOCYSTEINE (test code = HOMOCY) mcMOL/L <9 Comment: FASTING IN AM PATIENT SHOULD BE FASTING OVERNIGHT 10-12 HRS. TAKE BLOOD TO LABASAP. MUST SEPAPATE SERUM FROM CELLS WITHIN 1 HR AND FREEZE SERUM PROMPTLY.CBC W/AUTO [id number] 06:41:00 Test Item Value Reference Range Interpretation [...] NO DIFF/SCN CRITERIA = MDIFF) GLUCOSE BEDSIDE [id number] 23:18:00 Test Item Value Reference Range Interpretation Comments GLUCOSE BEDSIDE TESTING (test code = 94 mg/dL 70-110 N GLUBED) COVID 19 INHOUSE [id number] 15:04:00 Test Item Value Reference Range Interpretation Comments COVID 19 INHOUSE AG NEGATIVE Negative Per manu facturer, (test code = negative result s should [id number]) be treated aspr esumptive and, if inconsi [...] with COVID-19. UA RFLX MICR CULT IF [id number] 14:02:00 Test Item Value Reference Range Interpretation [...] UACULT) Indication for culture: Dysuria/Frequency- CT ANGIO [id number] 13:00:00 [facility] : 1960 Sex: M Name: OTONIEL HENDERSON [facility] : 1960 Age/S: 60 / M [address] Unit #: [id number] Loc:[place] [address] Phys: Anjum Rivera MD Acct: [id number] Dis Date: Status: PRE ER PHONE #: [phone] Exam Date: 10/30/2020 1235 FAX #: Reason: slurred speech EXAMS: CPT: [id number] CT ANGIO NECK [id number]: - CT ANGIO HEAD, - CT ANGIO [...] HENDERSON : 1960 Age/S: 60 / M [address] Unit #: [id number] Loc: [place] [address] Phys: Anjum Rivera MD Acct: [id number] Dis Date: Status: PRE ER PHONE #: [phone] Date: 10/30/2020 1235 FAX #: Reason: slurred speech EXAMS: CPT: [id number] ANGIO NECK 80535 <Continued> stenosis. Findings were personally discussed with [...] (1300) t.SDR.PR7 Orig Print D/T: S: 10/30/2020 (8253) PAGE 2 Signed Report- CT ANGIO [id number] 13:00:00 [facility] 1960 Sex: M Name: OTONIEL HENDERSON [facility] : 1960 Age/S: 60 / M [address] Unit #: [id number] Loc:[place] [address] Phys: Anjum Rivera MD Acct: [id number] Dis Date: Status: PRE ER PHONE #: [phone] Exam Date: 10/30/2020 1233 FAX #: Reason: slurred speech EXAMS: CPT: [id number] CT ANGIO HEAD [id number]: - CT ANGIO HEAD, - CT ANGIO [...] HENDERSON : 1960 Age/S: 60 / M [address] Unit #: [id number] Loc: [place] [address] Phys: Anjum Rivera MD Acct: [id number] Dis Date: Status: PRE ER PHONE #: [phone] Date: 10/30/2020 1233 FAX #: Reason: slurred speech EXAMS: CPT: [id number] ANGIO HEAD 580[address] <Continued> stenosis. Findings were personally discussed with Dr. iRvera at 1253 hours on 10/30/2020. All qualitative [...] (1300) t.GERMAINR.PR7 Orig Print D/T: S: 10/30/2020 (1923) PAGE 2 Signed ReportBASIC METABOLIC [id number] 12:50:00 Test Item Value Reference Range Interpretation [...] 8.9 MG/DL 8.5-10.1 N Completed by Nursing: [id number] 12:50:00 Test Item Value Reference Range Interpretation [...] suman yby method. Completed by Nursing: NOPROTHROMBIN [id number] 12:47:00 Test Item Value Reference Range Interpretation Comments PT PATIENT (test code = PTP) 10.5 SECONDS 9.3-12.9 N INTERNATIONAL NORMAL RATIO 0.94 INR Unit 0.8-1.2 N (test code = INR) THROMBOPLASTIN TIME [id number] 12:47:00 Test Item Value Reference Range Interpretation Comments THROMBOPLASTIN TIME PARTIAL 27.9 SECONDS 26-35 N (test code = PTT) BASIC METABOLIC [id number] 12:43:00 Test Item Value Reference Range Interpretation [...] 8.9 MG/DL 8.5-10.1 N Completed by Nursing: [id number] 12:43:00 Test Item Value Reference Range Interpretation Comments TROPONIN-I (test code = TROPI) NG/ML 0.000-0.045 Completed by Nursing: NO- CT HEAD/BRAIN W/O [id number] 12:40:00 [facility] 1960 Sex: M Name: OTONIEL HENDERSON [facility] : 1960 Age/S: 60 / M [address] Unit #: [id number] Loc:[place] [address] Phys: Anjum Rivera MD Acct: [id number] Dis Date: Status: PRE ER PHONE #: [phone] Exam Date: 10/30/2020 1231 FAX #: Reason: Code Stroke EXAMS: CPT: [id number] CT HEAD/BRAIN W/O CONT [id number]: - CT HEAD/BRAIN W/O CONT. LOCATION: S17. [...] 1 Signed Report (CONTINUED) Name: OTONIEL HENDERSON [facility] : 1960 Age/S: 60 / M [address] Unit #: [id number] Loc: [place] [address] Phys: Anjum Rivera MD Acct: [id number] Dis Date: Status: PRE ER PHONE #: [phone] Exam Date: 10/30/2020 1231 FAX #: Reason: Code Stroke EXAMS: CPT: [id number] CT HEAD/BRAIN W/O CONT 60598 <Continued> at 1240 Reported and signed by: Manjinder Antonio M.D. CC: Anjum Rivera MD Technologist:Yohan Love, RT(R)(CT); Kr CTDI: DLP: Trnscb Date/Time: 10/30/2020 (1240) t.GERMAINR.ANS4 Orig Print D/T: S: 10/30/2020 (2635) PAGE 2 Signed ReportCBC W/O [id number] 12:35:00 Test Item Value Reference Range Interpretation [...] 10.70 fL 7.0-9.6 H MPV) GLUCOSE BEDSIDE [id number] 12:29:00 Test Item Value Reference Range Interpretation Comments GLUCOSE BEDSIDE TESTING (test code 140 mg/dL 70-110 H = GLUBED) BASIC METABOLIC [id number] 06:50:00 Test Item Value Reference Range Interpretation [...] mg/dL 8.8-10.2 N = CA) CBC W/AUTO [id number] 06:40:00 Test Item Value Reference Range Interpretation [...] BA#) 0.07 x10 3/uL 0.0-0.20 N VANCOMYCIN [id number] 13:34:00 Test Item Value Reference Range Interpretation Comments VANCOMYCIN TROUGH (test code = 14.4 mcg/ML 10.0-20.0 N VANCT) Spec Comments: RN PLS DRAW VANCO 30MIN BEFORE DOSE DUE ON 01/30 BASIC METABOLIC [id number] 04:08:00 Test Item Value Reference Range Interpretation [...] code 8.8 mg/dL 8.8-10.2 N = CA) [id number] 04:08:00 Test Item Value Reference Range Interpretation Comments MAGNESIUM (test code = MAG) 1.7 mg/dL 1.4-2.6 N CBC W/AUTO [id number] 03:56:00 Test Item Value Reference Range Interpretation [...] 0.09 x10 3/uL 0.0-0.20 N BASIC METABOLIC [id number] 21:22:00 Test Item Value Reference Range Interpretation [...] mg/dL 8.8-10.2 N = CA) RENAL FUNCTION [id number] 21:22:00 Test Item Value Reference Range Interpretation Comments ALBUMIN (test code = ALB) 3.4 G/DL 3.5-5.0 L PHOSPHOROUS (test code = PHOS) 2.0 mg/dL 2.7-4.5 L LIVER FUNCTION [id number] 21:22:00 Test Item Value Reference Range Interpretation [...] = 63 U/L 45-120 N ALKP) LACTIC [id number] 21:18:00 Test Item Value Reference Range Interpretation Comments LACTIC ACID (test code = LACT) 9.4 mg/dL 4.5-18.0 N PROTHROMBIN [id number] 21:12:00 Test Item Value Reference Range Interpretation [...] 2.5-3.5recurren t systemic emboli sm. THROMBOPLASTIN TIME [id number] 21:12:00 Test Item Value Reference Range Interpretation Comments THROMBOPLASTIN TIME 28.6 SECONDS 26.0-35.9 N INTERPRE TATIVE PARTIAL (test code = DATA: erapeutic PTT) range: Unfractionated heparin:47 - 71 seconds Argatroban:1.5 to 3 times the basel ine PTT PROTHROMBIN [id number] 21:09:00 Test Item Value Reference Range Interpretation [...] 2.5-3.5recurren t systemic emboli sm. THROMBOPLASTIN TIME [id number] 21:09:00 Test Item Value Reference Range Interpretation Comments THROMBOPLASTIN TIME PARTIAL (test SECONDS 26.0-35.9 code = PTT) CBC W/AUTO [id number] 21:08:00 Test Item Value Reference Range Interpretation [...] 0.05 x10 3/uL 0.0-0.20 N CBC W/MANUAL [id number] 05:21:00 Test Item Value Reference Range Interpretation [...] code NORMAL NORMAL = PLTMORPH) RENAL FUNCTION [id number] 05:20:00 Test Item Value Reference Range Interpretation [...] 2.5 mg/dL 2.7-4.5 L code = PHOS) [id number] 05:20:00 Test Item Value Reference Range Interpretation Comments MAGNESIUM (test code = MAG) 1.8 mg/dL 1.4-2.6 N CBC W/MANUAL [id number] 04:48:00 Test Item Value Reference Range Interpretation [...] code = LYMPH) % 20.5-45.5 CBC W/MANUAL [id number] 04:48:00 Test Item Value Reference Range Interpretation [...] (test code = LYMPH) % 20.5-45.5 SURGICAL [id number] 12:52:00 RUN DATE: 01/29/20 [facility] - LAB PAGE 1 RUN TIME: 1252 Specimen Inquiry RUN USER: INTERFACE PATIENT: OTONIEL HENDERSON LOC: P.7S POD C U #: [id number] AGE/SX: 59/M ROOM: [facility] RE01/25/20REG DR: Cristopher Doty MD : [birth year] BED: 1 DIS: STATUS: ADM IN TLOC: SPEC #: [id number] RECD: 01/28/20 STATUS: FAINA CASTANON #: [id number] SIMON: 01/28/20 [facility] DR: Cristopher Doty MD ENTERED: 01/28/20 SP TYPE: SURG OTHR DR: Roxanna Primary or Family Physician Mio Gilbert MD No,DocORDERED: PATHGM3, PATHGM5/2, PATH SPEC, H E STAIN HISTOLOGY: TISSUE ID BLK PCS PARISH LEV / PROCEDURE DISPOSITION ____ ___ ___ ___ ___ COLON SEG NTUMR A 18 1 TISSUES: A. 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 Signed SIGNATURE ON FILE Nita Ashford 01/29/20 1252 END OF REPORT BASIC METABOLIC [id number] 08:29:00 Test Item Value Reference Range Interpretation [...] code 9.2 mg/dL 8.8-10.2 N = CA) [id number] 08:29:00 Test Item Value Reference Range Interpretation Comments MAGNESIUM (test code = MAG) 1.3 mg/dL 1.4-2.6 L CBC W/AUTO [id number] 08:04:00 Test Item Value Reference Range Interpretation [...] x10 3/uL 0.0-0.20 N Novel Coronavirus 2018 [id number] 14:20:00 Test Item Value Reference Range Interpretation Comments Novel Coronavirus NEGATIVE Positive r esults are 2019 nCoV (test indicative o f the presence code = COVID19) phLFTB-PiX-7 RNA, clinical correlation wit h patient historyand [...] for the identification of SARS-CoV-2 RNA usingthe [employer] M2000 Sy stem under the FDA Emergen cy UseAuthorizatio n. The testing is perf ormed by personneltraine d in the procedures for the [employer] M2000 molecular diagnostic SARS-CoV-2 assa y in vitro. NEGATIVE Value reported toFirst Name: SAVITA Last Name:[facility] RESULTS READ BACK AND VERIFIEDbyP.LAB.RS, on 01/26/20, @ 1934.- XR ABDOMEN [id number] 14:18:00Patient Name: OTONIEL HENDERSON Unit No: [id number] EXAMS: CPT CODE: [id number] XR ABDOMEN 1V 52108 Abdomen one view supine 01/28/2020 CLINICAL INDICATION: [...] Printed Date/Time: 01/28/2020 (1421) Name: OTONIEL HENDERSON [facility] Phys: José Antonio Zamora MD [address] : 1960 Age: 59 Sex: [place] [address] Loc: P.0733 1 Exam Date: 01/28/2020 Status: ADM IN PH: FAX: PAGE 1 Signed ReportCOMPREHENSIVE METABOLIC [id number] 07:39:00 Test Item Value Reference Range Interpretation [...] 45-120 N PHOSPHATASE (test code = ALKP) [id number] 07:39:00 Test Item Value Reference Range Interpretation Comments MAGNESIUM (test code = MAG) 1.4 mg/dL 1.4-2.6 N CBC W/AUTO [id number] 07:12:00 Test Item Value Reference Range Interpretation [...] = BA#) 0.10 x10 3/uL 0.0-0.20 N [id number] 15:08:00 Test Item Value Reference Range Interpretation Comments LITHIUM (test 0.5 mmol/L 0.6-1.2 L code = LITH) Detection Limit = 0.1 <0.1 indicate s None DetectedPerform ed At: [address] [id number] So MD Ph:[phone] [id number] 15:08:00 Test Item Value Reference Range Interpretation Comments LITHIUM (test 0.5 mmol/L 0.6-1.2 L code = LITH) Detection Limit = 0.1 <0.1 indicate s None DetectedPerform ed At: [address] [id number] So MD Ph:[phone] Novel Coronavirus 2019 [id number] 07:11:00 Test Item Value Reference Range Interpretation [...] PHOSPHATASE (test code = ALKP) CBC W/AUTO [id number] 04:21:00 Test Item Value Reference Range Interpretation [...] 3/uL 0.0-0.20 N - CT ABD PELVIS [id number] 09:58:00Patient Name: OTONIEL HENDERSON Unit No: [id number] EXAMS: CPT CODE: [id number] CT ABD PELVIS W/CONT 75191 CT abdomen and pelvis with IV contrast. [...] Additional findings as above. Name: OTONIEL HENDERSON [facility] Phys: [email or web address] - Norbert William MD [address] : 1960 Age: 59 Sex: [place] [address] Loc: P.0723 1 Exam Date: 01/26/2020 Status: ADM IN PH: FAX: PAGE 1 Signed Report (CONTINUED) Patient Name: OTONIEL HENDERSON Unit No: [id number] EXAMS: CPT CODE: [id number] CT ABD PELVIS W/CONT 23086 <Continued> at 0958 Reported and signed by: OTONIEL ROSSI M.D. CC: Cristopher Doty MD; Norbert William MD Technologist: ANTONIO Martin(Jeannine)(CT) CTDI: 11.68 DLP: 602 Trscr Dt/Tm: 01/26/2020 (0958) by:[email or web address] Printed Date/Time: 01/26/2020 (1001)Name: OTONIEL HENDERSON [facility] Phys: - Norbert William MD [address] : 1960 Age: 59 Sex: [place] [address] Loc: P.0723 1 Exam Date: 01/26/2020 Status: ADM IN PH: FAX: PAGE 2 Signed ReportCOMPREHENSIVE METABOLIC [id number] 05:50:00 Test Item Value Reference Range Interpretation [...] PHOSPHATASE (test code = ALKP) CBC W/AUTO [id number] 04:55:00 Test Item Value Reference Range Interpretation [...] 0.15 x10 3/uL 0.0-0.20 N COMPREHENSIVE METABOLIC [id number] 18:44:00 Test Item Value Reference Range Interpretation [...] N PHOSPHATASE (test code = ALKP) PROTHROMBIN [id number] 18:32:00 Test Item Value Reference Range Interpretation [...] 2.5-3.5recurren t systemic emboli sm. CBC W/AUTO [id number] 18:26:00 Test Item Value Reference Range Interpretation [...]
[2021-04-04 20:27] LABS: Absolute Lymphocytes (CBC) 2.4 K/uL (0.7-4.9); Hematocrit 37.8 % (39.6-49.0); Lymphocytes % 26.9 % (15.3-44.8); MPV 8.3 fL (7.6-11.3); RBC Red Blood Cell Count 4.31 M/uL (4.33-5.43)
[2021-04-04] MEDS ORDERED: NA CHLORIDE 0.9% 1,000 ML ONE (20:29)
[2021-04-04 20:31] LABS: Protime INR 1.02
[2021-04-04 20:38] LABS: Barbiturates NEGATIVE (NEGATIVE); Benzodiazepines NEGATIVE (NEGATIVE); Cocaine NEGATIVE (NEGATIVE); METHAMPHETAM NEGATIVE (NEGATIVE); Methadone NEGATIVE (NEGATIVE); Opiates NEGATIVE (NEGATIVE); Phencyclidine NEGATIVE (NEGATIVE); THC Cannibis NEGATIVE (NEGATIVE)
[2021-04-04 20:42] LABS: ALT/SGPT 23 U/L (12-78); AST/SGOT 17 U/L (15-37); Albumin 3.3 g/dL (3.4-5.0); Alkaline Phosphatase 92 U/L (45-117); BUN Blood Urea Nitrogen 16 mg/dL (7-18); Bicarbonate 18 mmol/L (21-32); Bilirubin Direct < 0.1 mg/dL (0-0.2); Bilirubin Total 0.2 mg/dL (0.2-1.0); Creatine Phosphokinase 142 U/L (39-308); Glucose Level 107 mg/dL (74-106); Potassium 3.7 mmol/L (3.5-5.1); Protein, Total 7.1 g/dL (6.4-8.2); Sodium Level 138 mmol/L (136-145); Troponin (Emerg Dept Use Only) < 0.02 ng/mL (0.0-0.045)
--- NOTE | 2021-04-04 20:44 | RAD REPORT ---
EXAM DESCRIPTION: CT - Head Brain Wo Cont - 04/04/2021 8:31 pm CLINICAL HISTORY: Alteration of awareness/confusion COMPARISON: December 2019 TECHNIQUE: Computed axial tomography of the head was obtained. IV contrast was not requested. All CT scans are performed using dose optimization technique as appropriate and may include automated exposure control or mA/KV adjustment according to patient size. FINDINGS: An intracranial bleed is not seen . The ventricles are normal in caliber. No extra-axial fluid collection is noted. Mild within periventricular, deep and subcortical white matter may represent ischemic changes seconda ry to small vessel disease. 9 millimeter low-density area has developed within the right centrum semi ovale Fluid within the sinuses/ mastoids is not seen. IMPRESSION: 9 millimeter low-density area has developed within the right centrum semiovale. This may represent an infarct. Does not appear acute. If the patient continues to have symptoms to suggest acute cerebral pathology MRI would be recommende d
--- NOTE | 2021-04-05 06:27 | EDPHYS ---
Physician Documentation [facility] Name: Gregory Dumont Age: 60 yrs Sex: Male : 1960 Arrival Date: 04/04/2021 Time: 19:50 Bed 13 Private MD: ED Physician Contreras Estrada HPI: 04/04 19:55 This 60 yrs old Male presents to ER via EMS with complaints of Altered Mental [facility] Status. 19:55 The patient presents with confusion. Onset: The symptoms/episode began/occurred just jmm prior to arrival. Possible causes: alcohol, low blood sugar, seizure. Associated signs and symptoms: The patient has no apparent associated signs or symptoms. Patient's baseline: Neuro: alert and fully oriented, Motor: no deficits, Ambulation: Speech: normal. The patient has experienced similar episodes in the past. Historical: - Allergies: 20:31 No Known Allergies; ak2 - Immunization history:: Adult Immunizations up to date. - Social history:: Smoking status: Patient reports the use of cigarette tobacco products, unknown amount. ROS: 19:55 Constitutional: Negative for fever, chills, and weight loss, Cardiovascular: Negative [facility] for chest pain, palpitations, and edema, Respiratory: Negative for shortness of breath, cough, wheezing, and pleuritic chest pain, Abdomen/GI: Negative for abdominal pain, nausea, vomiting, diarrhea, and constipation, Neuro: Negative for headache, weakness, numbness, tingling, and seizure. 19:55 All other systems are negative. Exam: 19:55 Head/Face: atraumatic. Eyes: EOMI, no conjunctival erythema appreciated ENT: Moist [facility] Mucus Membranes Neck: Trachea midline, Supple Chest/axilla: Normal chest wall appearance and motion. Cardiovascular: Regular rate and rhythm. No edema appreciated Respiratory: Normal respirations, no respiratory distress appreciated Abdomen/GI: Non distended, soft Back: Normal ROM Skin: General appearance color normal MS/ Extremity: Moves all extremities, no obvious deformities appreciated, no edema noted to the lower extremities Neuro: Awake and alert, normal gait Psych: Behavior is normal, Mood is normal, Patient is cooperative and pleasant 23:49 ECG was reviewed by the Attending Physician. [facility] Vital Signs: 20:29 BP 103 / 72; Pulse 84; Resp 16; Temp 98.4; Pulse Ox 96% on R/A; Weight 99.79 kg; Height ak2 5 ft. 10 in. (177.80 cm); 21:33 BP 115 / 68; Pulse 81; Resp 18; Pulse Ox 100% on R/A; ak2 04/05 00:10 BP 123 / 75; Pulse 74; Resp 18; Pulse Ox 98% on R/A; ak2 02:23 BP 114 / 76; Pulse 79; Resp 18; Pulse Ox 98% on R/A; ak2 04:55 BP 119 / 71; Pulse 72; Resp 18; Pulse Ox 100% on R/A; ak2 05:50 BP 113 / 67; Pulse 75; Resp 18; Pulse Ox 98% on R/A; ak2 04/04 20:29 Body Mass Index 31.57 (99.79 kg, 177.80 cm) ak2 MDM: 04/04 19:57 Patient medically screened. [facility] 04/05 01:02 Transition of care: After a detail discussion of the patient's case, care is [facility] transferred to Contreras Estrada MD. 06:25 Differential Diagnosis: electrolyte abnormality, alcohol intoxication, hypoglycemia, mh7 intracranial bleed, volume depletion. Data reviewed: vital signs, nurses notes, lab test result(s), CBC, drug level(s), alcohol, electrolytes, radiologic studies, CT scan. Data interpreted: Pulse oximetry: on room air is 98 %. Interpretation: normal. Counseling: I had a detailed discussion with the patient and/or guardian regarding: the historical points, exam findings, and any diagnostic results supporting the discharge/admit diagnosis, lab results, radiology results, the need for outpatient follow up, to return to the emergency department if symptoms worsen or persist or if there are any questions or concerns that arise at home. Response to treatment: the patient's symptoms have resolved after treatment, the patient's blood pressure is in an acceptable range, mental status has returned to baseline, the patient no longer shows bradycardia, the patient is not short of breath, the patient is not tachycardic, the patient's pain is gone, the patient's temperature has normalized. 04/04 19:55 Order name: Acetaminophen [facility] 04/04 19:55 Order name: Basic Metabolic Panel [facility] 04/04 19:55 Order name: CBC with Diff [facility] 04/04 19:55 Order name: ETOH Level; Complete Time: 20:47 [facility] 04/04 19:55 Order name: Hepatic Function; Complete Time: 20:47 [facility] 04/04 19:55 Order name: PT-INR; Complete Time: 20:47 [facility] 04/04 19:55 Order name: Ptt, Activated; Complete Time: 20:47 [facility] 04/04 19:55 Order name: Salicylate; Complete Time: 20:47 [facility] 04/04 19:55 Order name: Urine Drug Screen; Complete Time: 20:47 [facility] 04/04 19:55 Order name: Troponin (emerg Dept Use Only); Complete Time: 20:47 [facility] 04/04 19:55 Order name: CPK; Complete Time: 20:47 [facility] 04/04 19:55 Order name: Acetaminophen Level; Complete Time: 20:47 [facility] 04/04 19:55 Order name: Basic Metabolic Panel; Complete Time: 20:47 [facility] 04/04 19:55 Order name: CBC with Automated Diff; Complete Time: 20:47 [facility] 04/04 19:55 Order name: EKG; Complete Time: 19:55 [facility] 04/04 19:55 Order name: EKG - Nurse/Tech [facility] 04/04 19:55 Order name: IV Saline Lock [facility] 04/04 19:55 Order name: Labs collected and sent [facility] 04/04 19:55 Order name: Suicide Screening ([place]) [facility] 04/04 19:55 Order name: Urine Dipstick-Ancillary (obtain specimen) [facility] 04/04 19:55 Order name: CT Head Brain wo Cont; Complete Time: 20:47 [facility] 04/04 20:57 Order name: Glucose, Ancillary Testing; Complete Time: 21:07 EDMS EC/19 23:49 Rate is 80 beats/min. Rhythm is regular. QRS [place] is Normal. VT interval is normal. QRS jmm interval is normal. QT interval is normal. No Q waves. T waves are Normal. No ST changes noted. Reviewed by me. Administered Medications: 20:34 Drug: NS 0.9% (30 ml/kg) 30 ml/kg Route: IV; Rate: bolus; Site: right forearm; ak2 Disposition: 04/05 07:16 Co-signature as Attending Physician, Contreras Estrada MD. mh7 Disposition: 04/05/21 06:27 Discharged to Home. Impression: Alcohol abuse with intoxication. - Condition is Stable. - Discharge Instructions: Alcohol Intoxication, [id number]. - Medication Reconciliation Form, Thank You Letter, Antibiotic Education, Prescription Opioid Use form. - Follow up: Private Physician; When: 1 - 2 days; Reason: Worsening of condition, Recheck today's complaints, Continuance of care, Re-evaluation by your physician. - Problem is an acute exacerbation. - Symptoms have improved. Signatures: Dispatcher [employer] EDMS Baudilio Burns PA PA jmm Holmes, Maurice, MD MD mh7 Donald Cr2 Corrections: (The following items were deleted from the chart) 06:31 06:27 04/05/2021 06:27 Discharged to Home. Impression: Alcohol abuse with intoxication. ak2 Condition is Stable. Forms are Medication Reconciliation Form, Thank You Letter, Antibiotic Education, Prescription Opioid Use. Follow up: Private Physician; When: 1 - 2 days; Reason: Worsening of condition, Recheck today's complaints, Continuance of care, Re-evaluation by your physician. Problem is an acute exacerbation. Symptoms have improved. mh7
--- NOTE | 2021-04-05 06:27 | ER ---
Nurse's Notes [facility] Name: Gregory Dumont Age: 60 yrs Sex: Male : 1960 Arrival Date: 04/04/2021 Time: 19:50 Bed 13 Private MD: Diagnosis: Alcohol abuse with intoxication Presentation: 04/04 20:29 Chief complaint: Patient states: [place] ems [place], poss seizure. ak2 Coronavirus screen: Client denies travel out of the [place] in the last 14 days. At this time, the client does not indicate any symptoms associated with coronavirus-19. Ebola Screen: Patient negative for fever greater than or equal to 101.5 degrees Fahrenheit, and additional compatible Ebola Virus Disease symptoms Patient denies exposure to infectious person. Patient denies travel to an Ebola-affected area in the 21 days before illness onset. No symptoms or risks identified at this time. Initial Sepsis Screen: Does the patient meet any 2 criteria? No. Patient's initial sepsis screen is negative. Initial Sepsis Screen: Does the patient have a suspected source of infection? No. Patient's initial sepsis screen is negative. Risk Assessment: Do you want to hurt yourself or someone else? Patient reports no desire to harm self or others. Onset of symptoms was April 04, 2021. 20:29 Method Of Arrival: EMS: [facility] ak2 20:29 Acuity: MARION 3 ak2 Triage Assessment: 20:31 General: Appears in no apparent distress. Behavior is drowsy. Pain: Denies pain. Neuro: ak2 Level of Consciousness is confused, lethargic. Historical: - Allergies: 20:31 No Known Allergies; ak2 - Immunization history:: Adult Immunizations up to date. - Social history:: Smoking status: Patient reports the use of cigarette tobacco products, unknown amount. Screenin:33 Abuse screen: Denies threats or abuse. Denies injuries from another. Nutritional ak2 screening: No deficits noted. Tuberculosis screening: No symptoms or risk factors identified. Fall Risk Mental Status- Overestimates/Forgets Limitations (15 pts.). Assessment: 20:33 Reassessment:. Neuro: Oriented to person. Cardiovascular: No deficits noted. ak2 Respiratory: No deficits noted. 21:33 Reassessment: Patient and/or family updated on plan of care and expected duration. Pain ak2 level reassessed. 04/05 00:10 Reassessment: Patient and/or family updated on plan of care and expected duration. Pain ak2 level reassessed. 02:23 Reassessment: Patient and/or family updated on plan of care and expected duration. Pain ak2 level reassessed. 04:55 Reassessment: Patient and/or family updated on plan of care and expected duration. Pain ak2 level reassessed. 05:50 Reassessment: Patient and/or family updated on plan of care and expected duration. Pain ak2 level reassessed. Vital Signs: 04/04 20:29 BP 103 / 72; Pulse 84; Resp 16; Temp 98.4; Pulse Ox 96% on R/A; Weight 99.79 kg; Height ak2 5 ft. 10 in. (177.80 cm); 21:33 BP 115 / 68; Pulse 81; Resp 18; Pulse Ox 100% on R/A; ak2 04/05 00:10 BP 123 / 75; Pulse 74; Resp 18; Pulse Ox 98% on R/A; ak2 02:23 BP 114 / 76; Pulse 79; Resp 18; Pulse Ox 98% on R/A; ak2 04:55 BP 119 / 71; Pulse 72; Resp 18; Pulse Ox 100% on R/A; ak2 05:50 BP 113 / 67; Pulse 75; Resp 18; Pulse Ox 98% on R/A; ak2 04/04 20:29 Body Mass Index 31.57 (99.79 kg, 177.80 cm) ak2 ED Course: 04/04 19:50 Patient arrived in ED. cf2 19:54 Baudilio Burns PA is PHCP. [facility] 19:54 Contreras Estrada MD is Attending Physician. jmm 20:28 Donald Cr is Primary Nurse. ak2 20:30 CT Head Brain wo Cont In Process Unspecified. EDMS 20:31 Triage completed. ak2 20:31 Arm band placed on right wrist. ak2 20:33 EKG completed in triage. Results shown to MD. ak2 20:33 Patient has correct armband on for positive identification. Side rails up X2. ak2 20:33 No provider procedures requiring assistance completed. Inserted saline lock: 18 gauge ak2 in right forearm, using aseptic technique. 04/05 06:27 IV discontinued. ak2 Administered Medications: 04/04 20:34 Drug: NS 0.9% (30 ml/kg) 30 ml/kg Route: IV; Rate: bolus; Site: right forearm; ak2 Outcome: 04/05 06:27 Discharge ordered by . mh7 06:27 Discharged to home ambulatory. ak2 06:27 Condition: good 06:27 Discharge instructions given to patient. 06:31 Patient left the ED. ak2 Signatures: Dispatcher [employer] EDMS Baudilio Burns PA PA jmm Frazier, [place] 2 Contreras Estrada MD MD [facility] Donald Cr ne2
[2021-04-05 06:38] VITALS: TEMP 98.4
[2021-04-05 06:46] VITALS: BP 113/67; O2SAT 98
== END 2021-04-05 06:31 | disposition home or self-care (01) ==
LOC: ER 19:48
DX: F10.129 Alcohol abuse with intoxication, unspecified (principal); F17.210 Nicotine dependence, cigarettes, uncomplicated
CPT/HCPCS: 85025; 80048; 36415; 80320; 82550; 80329 ×2; 85610; 82947; 80076; 80307 ×8; 85730; 84484; 70450; J7030; 96374; 99284

== ENCOUNTER 2021-06-23 10:06 | Emergency (ER) | payer OTHER ==
--- OUTSIDE RECORDS SUMMARY | 2021-06-23 10:14 | XMS REPORT | Continuity of Care Document ---
:1960 Author Organization [facility] t Address 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 Greta kes - itis itis Memoria involving involving l multiple multiple Outpat i joints joints ent Clinics Smoker Smoker Problem [facility] Essential Essential Problem Active [facility] hypertensi hypertensi Greta kes - on on Memoria l Outpati ent Clinics Other Other Problem Active [facility] - bronchitis bronchitis Me [facility] Nicotine Nicotine Problem Active [facility] dependence dependence Greta kes - , , Memoria cigarettes cigarettes l , , Outpati uncomplica uncomplica en t mann mann Clinics 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 Greta kes - itis of itis of Memoria both knees both knees l [facility] Seasonal Seasonal Diagnosis Active [facility] allergic allergic [facility] - rhinitis, rhinitis, Zac amandeep unspecifie unspecifie l d trigger d trigger Outp ati ent Clinics Allergies, Adverse Reactions, Alerts Allergy Allergy Status Severity Reaction(s) Onset Inactive Treating Comm ents Source Name Type Date Date Clinician No Known DA Active [facility] 1-14 Clear s 00:00: Patel 00 [facility] No Known DA Active [facility] Allergie 4-10 [place] s 00:00: [facility] 00 are [facility] Medications Ordered Filled Start Stop Current Ordering Indication Dosage Frequency Signature Comments Components Source Medication Medication Date Date Medication? Clinician (SIG) Name Name Flonase Flonase Yes Na Gomes [address] [facility] 8-07 each [facility] - 00:00: nostril [facility] 00 l Outpati ent Clinics Procedures This patient has no known procedures. Encounters Start End Encounter Admission Attending Care Care Encounter Source Date/Time Date/Time Type Type Clinicians Facility Department ID 2020-06-20 2020-06-20 [facility] [id number] [facility] 10:36:00 10:36:00 [employer] [facility] l Medicine Outpati ent Clinics 2020-05-23 2020-05-23 [facility] [id number] 16:20:00 16:20:00 t [email or web address] [facility] Medicine l Medicine Outpati ent Clinics 2020-05-23 2020-05-23 [facility] [id number] 15:25:00 15:25:00 [employer] [facility] Medicine l Medicine Outpati ent Clinics 2020-01-01 2020-01-01 [facility] [id number] [address] 16:10:00 16:10:00 [employer] [facility] Family Medicine l Medicine Outpati ent Clinics 2019-12-26 2019-12-26 [facility] [id number] 08:44:00 08:44:00 t [email or web address] [facility] Medicine l Medicine Outpati ent Clinics 2019-12-05 2019-12-05 [facility] [id number] [address] 15:07:00 15:07:00 [employer] [facility] Medicine l Medicine Outpati ent Clinics 2019-09-24 2019-09-24 [facility] [id number] 09:27:00 09:27:00 [place] [employer] [facility] Medicine l Medicine Outpati ent Clinics 2019-09-06 2019-09-06 [facility] [id number] 12:00:00 12:00:00 [place] [employer] [address] [facility] l Medicine Outpati ent Clinics 2019-08-18 2019-08-18 [facility] [id number] 17:55:00 17:55:00 [place] [employer] [facility] Medicine l Medicine Outpati ent Clinics 2019-08-01 2019-08-01 [facility] [id number] 09:00:00 09:00:00 [place] [employer] [facility] l Medicine Outpati ent Clinics 2019-06-07 2019-06-07 [facility] [id number] 11:20:00 11:20:00 [place] [employer] [facility] l Medicine Outpati ent Clinics 2019-01-04 2019-01-04 [facility] [id number] 14:04:00 14:04:00 t [email or web address] [facility] l Medicine Outpati ent Clinics 2018-11-23 2018-11-23 [facility] [id number] 09:15:00 09:15:00 t [facility] l Outpati ent Clinics 2018-11-20 2018-11-20 [facility] [id number] 10:13:00 10:13:00 t [place] [employer] [facility] Medicine l Medicine Outpati ent Clinics 2018-11-15 2018-11-15 [facility] [id number] 15:15:00 15:15:00 t [place] [employer] [facility] Medicine l Medicine Outpati ent Clinics 2018-10-09 2018-10-09 [facility] [id number] 10:19:00 10:19:00 t [place] [employer] [facility] l Medicine Outpati ent Clinics 2018-06-02 2018-06-02 [facility] [id number] 16:46:00 16:46:[address] [facility] s - Drive [facility] ent [facility] 2018-05-11 2018-05-11 [facility] [id number] 09:45:00 09:45:[address] Luke s - Drive [facility] Results Test Description Test Time Test Comments Results Result Comments Source HOMOCYSTEINE PROFILE 2020-11-01 10:10:00 Test Item Value Reference Range Interpretation Comme nts HOMOCYSTEINE (test code = 15.3 umol/L 0.0-14.5 A Pe rformed At: HD [facility] HOMO) [address] [id number] So MD Ph:[phone] RAPID PLASMA [id number] 06:11:00 Test Item Value Reference Range Interpretation Comments RAPID PLASMA REAGIN Non Reactive Non Reactive Performe d At: HD (test code = RPR) [facility] [address] [id number] jyoti So MD Ph:[phone] - CT HEAD/BRAIN W/O [id number] 14:36:00 [facility] 1960 Sex: M Name: OTONIEL HENDERSON [facility] : 1960 Age/S: 60 / M [id number] Unit #: [id number] Loc:[place] [address] Phys: Ximena Valdes MD Acct: [id number] Dis Date: Status: ADM IN PHONE #: [phone] Exam Date: 10/31/2020 1420 FAX #: Reason: CVA EXAMS: CPT: [id number] CT HEAD/BRAIN W/O CONT [id number] HISTORY: CVA. CT brain, unenhanced. Reformatted sagittal [...] Busch M.D CC: Ximena Valdes MD; Karen PHAM [place] Technologist:RT Ratna (R)(CT) CTDI: DLP: Trnscb Date/Time: 10/31/2020 (1436) [email or web address].RCM1 Orig Print D/T: S: 10/31/2020 (9123) PAGE 1 Signed ReportSED [id number] 10:34:00 Test Item Value Reference Range Interpretation Comments SED RATE (test code = SEDW) 7 mm/hr 0-15 SED RATE [id number] 10:33:00 Test Item Value Reference Range Interpretation Comments SED RATE WESTERGREN (test code = 7 mm/hr 0-15 N SEDW) [id number] 07:00:00 Test Item Value Reference Range Interpretation Comments GLYCOSYLATED HEMOGLOBIN (HA1C) 5.5 % A1C 0.0-5.7 N (test code = GLYHGB) ESTIMATED AVERAGE GLUCOSE (test 111 MG/DLest code = EAG) BASIC METABOLIC [id number] 06:55:00 Test Item Value Reference Range Interpretation [...] WITHIN 1 HR AND FREEZE SERUM PROMPTLY.HOMOCYSTEINE [id number] 06:55:00 Test Item Value Reference Range Interpretation Comments HOMOCYSTEINE (test code = HOMOCY) mcMOL/L <9 Comment: FASTING IN AM PATIENT SHOULD BE FASTING OVERNIGHT 10-12 HRS. TAKE BLOOD TO LABASAP. MUST SEPAPATE SERUM FROM CELLS WITHIN 1 HR AND FREEZE SERUM PROMPTLY.CBC W/AUTO [id number] 06:41:00 Test Item Value Reference Range Interpretation [...] NO DIFF/SCN CRITERIA = MDIFF) GLUCOSE BEDSIDE [id number] 23:18:00 Test Item Value Reference Range Interpretation Comments GLUCOSE BEDSIDE TESTING (test code = 94 mg/dL 70-110 N GLUBED) COVID 19 INHOUSE [id number] 15:04:00 Test Item Value Reference Range Interpretation Comments COVID 19 INHOUSE AG NEGATIVE Negative Per manu facturer, (test code = negative result s should [id number]) be treated aspr esumptive and, if inconsi [...] with COVID-19. UA RFLX MICR CULT IF [id number] 14:02:00 Test Item Value Reference Range Interpretation [...] UACULT) Indication for culture: Dysuria/Frequency- CT ANGIO [id number] 13:00:00 [facility] BEAT[facility]Z OTONIEL Elayne : 1960 Sex: M Name: OTONIEL HENDERSON : 1960 Age/S: 60 / M [id number] Unit #: [id number] Loc:[place] [address] Phys: Anjum Rivera MD Acct: [id number] Dis Date: Status: PRE ER PHONE #: [phone] Exam Date: 10/30/2020 123 FAX #: Reason: slurred speech EXAMS: CPT: [id number] CT ANGIO NECK [id number]: - CT ANGIO HEAD, - CT ANGIO [...] HENDERSON : 1960 Age/S: 60 / M [id number] Unit #: [id number] Loc: [place] [address] Phys: Anjum Rivera MD Acct: [id number] Dis Date: Status: PRE ER PHONE #: [phone] Date: 10/30/2020 1235 FAX #: Reason: slurred speech EXAMS: CPT: [id number] ANGIO NECK [address] <Continued> stenosis. Findings were personally discussed with [...] Kr CTDI: DLP: Trnscb Date/Time: 10/30/2020 (1300) [email or web address] Orig Print D/T: S: 10/30/2020 (1303) PAGE 2 Signed Report- CT ANGIO [id number] 13:00:00 [facility] 1960 Sex: M Name: OTONIEL HENDERSON [facility] : 1960 Age/S: 60 / M [id number] Unit #: [id number] Loc:[place] [address] Phys: Anjum Rivera MD Acct: [id number] Dis Date: Status: PRE ER PHONE #: [phone] Exam Date: 10/30/2020 1236 FAX #: Reason: slurred speech EXAMS: CPT: [id number] CT ANGIO HEAD [id number]: - CT ANGIO HEAD, - CT ANGIO [...] PAGE 1 Signed Report (CONTINUED) [facility] 1960 Age/S: 60 / M [id number] Unit #: [id number] Loc: [place] [address] Phys: Anjum Rivera MD Acct: [id number] Dis Date: Status: PRE ER PHONE #: [phone] Date: 10/30/2020 1233 FAX #: Reason: slurred speech EXAMS: CPT: [id number] ANGIO HEAD [address] <Continued> stenosis. Findings were personally discussed with [...] (1300) [email or web address].PR7 Orig Print D/T: S: 10/30/2020 (1303) PAGE 2 Signed ReportBASIC METABOLIC [id number] 12:50:00 Test Item Value Reference Range Interpretation [...] 8.9 MG/DL 8.5-10.1 N Completed by Nursing: [id number] 12:50:00 Test Item Value Reference Range Interpretation [...] suman yby method. Completed by Nursing: NOPROTHROMBIN [id number] 12:47:00 Test Item Value Reference Range Interpretation Comments PT PATIENT (test code = PTP) 10.5 SECONDS 9.3-12.9 N INTERNATIONAL NORMAL RATIO 0.94 INR Unit 0.8-1.2 N (test code = INR) THROMBOPLASTIN TIME [id number] 12:47:00 Test Item Value Reference Range Interpretation Comments THROMBOPLASTIN TIME PARTIAL 27.9 SECONDS 26-35 N (test code = PTT) BASIC METABOLIC [id number] 12:43:00 Test Item Value Reference Range Interpretation [...] 8.9 MG/DL 8.5-10.1 N Completed by Nursing: [id number] 12:43:00 Test Item Value Reference Range Interpretation Comments TROPONIN-I (test code = TROPI) NG/ML 0.000-0.045 Completed by Nursing: NO- CT HEAD/BRAIN W/O [id number] 12:40:00 [facility] 1960 Sex: M Name: OTONIEL HENDERSON [facility] : 1960 Age/S: 60 / M [id number] Unit #: [id number] Loc:[place] [address] Phys: Anjum Rivera MD Acct: [id number] Dis Date: Status: PRE ER PHONE #: [phone] Exam Date: 10/30/2020 1231 FAX #: Reason: Code Stroke EXAMS: CPT: [id number] CT HEAD/BRAIN W/O CONT [id number]: - CT HEAD/BRAIN W/O CONT. LOCATION: S17. [...] HENDERSON : 1960 Age/S: 60 / M [address] Unit #: [id number] Loc: [place] [address] Phys: Anjum Rivera MD Acct: [id number] Dis Date: Status: PRE ER PHONE #: [phone] Exam Date: 10/30/2020 1231 FAX #: Reason: Code Stroke EXAMS: CPT: [id number] CT HEAD/BRAIN W/O CONT 30814 <Continued> at 1240 Reported and signed by: Manjinder Antonio M.D. CC: Anjum Rivera MD Technologist:Yohan Love, RT(R)(CT); Kr CTDI: DLP: Trnscb Date/Time: 10/30/2020 (1240) t.SDR.ANS4 Orig Print D/T: S: 10/30/2020 (1243) PAGE 2 Signed ReportCBC W/O [id number] 12:35:00 Test Item Value Reference Range Interpretation [...] 10.70 fL 7.0-9.6 H MPV) GLUCOSE BEDSIDE [id number] 12:29:00 Test Item Value Reference Range Interpretation Comments GLUCOSE BEDSIDE TESTING (test code 140 mg/dL 70-110 H = GLUBED) BASIC METABOLIC [id number] 06:50:00 Test Item Value Reference Range Interpretation [...] mg/dL 8.8-10.2 N = CA) CBC W/AUTO [id number] 06:40:00 Test Item Value Reference Range Interpretation [...] BA#) 0.07 x10 3/uL 0.0-0.20 N VANCOMYCIN [id number] 13:34:00 Test Item Value Reference Range Interpretation Comments VANCOMYCIN TROUGH (test code = 14.4 mcg/ML 10.0-20.0 N VANCT) Spec Comments: RN PLS DRAW VANCO 30MIN BEFORE DOSE DUE ON 01/30 BASIC METABOLIC [id number] 04:08:00 Test Item Value Reference Range Interpretation [...] code 8.8 mg/dL 8.8-10.2 N = CA) [id number] 04:08:00 Test Item Value Reference Range Interpretation Comments MAGNESIUM (test code = MAG) 1.7 mg/dL 1.4-2.6 N CBC W/AUTO [id number] 03:56:00 Test Item Value Reference Range Interpretation [...] 0.09 x10 3/uL 0.0-0.20 N BASIC METABOLIC [id number] 21:22:00 Test Item Value Reference Range Interpretation [...] mg/dL 8.8-10.2 N = CA) RENAL FUNCTION [id number] 21:22:00 Test Item Value Reference Range Interpretation Comments ALBUMIN (test code = ALB) 3.4 G/DL 3.5-5.0 L PHOSPHOROUS (test code = PHOS) 2.0 mg/dL 2.7-4.5 L LIVER FUNCTION [id number] 21:22:00 Test Item Value Reference Range Interpretation [...] = 63 U/L 45-120 N ALKP) LACTIC [id number] 21:18:00 Test Item Value Reference Range Interpretation Comments LACTIC ACID (test code = LACT) 9.4 mg/dL 4.5-18.0 N PROTHROMBIN [id number] 21:12:00 Test Item Value Reference Range Interpretation [...] 2.5-3.5recurren t systemic emboli sm. THROMBOPLASTIN TIME [id number] 21:12:00 Test Item Value Reference Range Interpretation Comments THROMBOPLASTIN TIME 28.6 SECONDS 26.0-35.9 N INTERPRE TATIVE PARTIAL (test code = DATA: erapeutic PTT) range: Unfractionated heparin:47 - 71 seconds Argatroban:1.5 to 3 times the basel ine PTT PROTHROMBIN [id number] 21:09:00 Test Item Value Reference Range Interpretation [...] 2.5-3.5recurren t systemic emboli sm. THROMBOPLASTIN TIME [id number] 21:09:00 Test Item Value Reference Range Interpretation Comments THROMBOPLASTIN TIME PARTIAL (test SECONDS 26.0-35.9 code = PTT) CBC W/AUTO [id number] 21:08:00 Test Item Value Reference Range Interpretation [...] 0.05 x10 3/uL 0.0-0.20 N CBC W/MANUAL [id number] 05:21:00 Test Item Value Reference Range Interpretation [...] code NORMAL NORMAL = PLTMORPH) RENAL FUNCTION [id number] 05:20:00 Test Item Value Reference Range Interpretation [...] 2.5 mg/dL 2.7-4.5 L code = PHOS) [id number] 05:20:00 Test Item Value Reference Range Interpretation Comments MAGNESIUM (test code = MAG) 1.8 mg/dL 1.4-2.6 N CBC W/MANUAL [id number] 04:48:00 Test Item Value Reference Range Interpretation [...] code = LYMPH) % 20.5-45.5 CBC W/MANUAL [id number] 04:48:00 Test Item Value Reference Range Interpretation [...] (test code = LYMPH) % 20.5-45.5 SURGICAL [id number] 12:52:00 RUN DATE: 01/29/20 [facility] - LAB PAGE 1 RUN TIME: 1252 Specimen Inquiry RUN USER: INTERFACE PATIENT: OTONIEL HENDERSON LOC: P7S POD C U #: [id number] AGE/SX: 59/M ROOM: [facility] RE01/25/20REG DR: Cristopher Doty MD : [birth year] BED: 1 DIS: STATUS: ADM IN TLOC: SPEC #: [id number] RECD: 01/28/20 STATUS: SOUJacky REQ #: [id number] SIMON: 01/28/[address]: Cristopher Doty MD ENTERED: 01/28/20 SP TYPE: SURG OTHR DR: Roxanna Primary or Family Physician Mio Gilbert MD No,DocORDERED: PATHGM3, PATHGM5/2, PATH SPEC, H E STAIN HISTOLOGY: TISSUE ID BLK PCS PARISH LEV / PROCEDURE DISPOSITION ____ ___ ___ ___ ___ COLON SEG NTUMR A 18 1 TISSUES: A. COLON SEGMENTAL [id number] - Sigmoid Colon Proximal Rectum Anastomatic Donuts, [...] NEXT PAGE RUN DATE: 01/29/20 [facility] - LAB PAGE 2 RUN TIME: 1252 Specimen Inquiry RUN USER: INTERFACE SPEC #: [id number] PATIENT: OTONIEL HENDERSON #[id number] (Continued) GROSS DESCRIPTION (Continued) 2.4 x 2 [...] A16-A18: Ring-shaped donut #2 (with blue sutures) ATTENDING PSYCHIATRIST/th MICROSCOPIC DESCRIPTION Microscopic examination performed. Signed SIGNATURE ON FILE Nita Ashford 01/29/20 1252 END OF REPORT BASIC METABOLIC [id number] 08:29:00 Test Item Value Reference Range Interpretation [...] code 9.2 mg/dL 8.8-10.2 N = CA) [id number] 08:29:00 Test Item Value Reference Range Interpretation Comments MAGNESIUM (test code = MAG) 1.3 mg/dL 1.4-2.6 L CBC W/AUTO [id number] 08:04:00 Test Item Value Reference Range Interpretation [...] x10 3/uL 0.0-0.20 N Novel Coronavirus 2018 [id number] 14:20:00 Test Item Value Reference Range Interpretation Comments Novel Coronavirus NEGATIVE Positive r esults are 2019 nCoV (test indicative o f the presence code = COVID19) sbGAWR-EbO-0 RNA, clinical correlation wit h patient historyand [...] for the identification of SARS-CoV-2 RNA usingthe Urbina M2000 Sy stem under the FDA Emergen cy UseEllihorizatio n. The testing is perf ormed by yair rudd in the procedures for the Urbina M2000 molecular diagnostic SARS-CoV-2 assa y in vitro. NEGATIVE Value reported toFirst Name: SAVITA Last Name:[facility] RESULTS READ BACK AND VERIFIEDbyP.LAB.RS, on 01/26/20, @ 1934.- XR ABDOMEN [id number] 14:18:00Patient Name: OTONIEL HENDERSON Unit No: [id number] EXAMS: CPT CODE: [id number] XR ABDOMEN 1V 35173 Abdomen one view supine 01/28/2020 CLINICAL INDICATION: [...] Dt/Tm: 01/28/2020 (1418) by:[email or web address] Printed Date/Time: 01/28/2020 (1428) Name: OTONIEL HENDERSON [facility] Phys: José Antonio Zamora MD [address] : 1960 Age: 59 Sex: [place] [address] Loc: P.0733 1 Exam Date: 01/28/2020 Status: ADM IN PH: FAX: PAGE 1 Signed ReportCOMPREHENSIVE METABOLIC [id number] 07:39:00 Test Item Value Reference Range Interpretation [...] 45-120 N PHOSPHATASE (test code = ALKP) [id number] 07:39:00 Test Item Value Reference Range Interpretation Comments MAGNESIUM (test code = MAG) 1.4 mg/dL 1.4-2.6 N CBC W/AUTO [id number] 07:12:00 Test Item Value Reference Range Interpretation [...] = BA#) 0.10 x10 3/uL 0.0-0.20 N [id number] 15:08:00 Test Item Value Reference Range Interpretation Comments LITHIUM (test 0.5 mmol/L 0.6-1.2 L code = LITH) Detection Limit = 0.1 <0.1 indicate s None DetectedPerform ed At: [facility] [id number] Kyle L MD Ph:[phone] [id number] 15:08:00 Test Item Value Reference Range Interpretation Comments LITHIUM (test 0.5 mmol/L 0.6-1.2 L code = LITH) Detection Limit = 0.1 <0.1 indicate s None DetectedPerform ed At: [facility] [id number] Jacky So MD Ph:[phone] Novel Coronavirus 2019 [id number] 07:11:00 Test Item Value Reference Range Interpretation [...] PHOSPHATASE (test code = ALKP) CBC W/AUTO [id number] 04:21:00 Test Item Value Reference Range Interpretation [...] 3/uL 0.0-0.20 N - CT ABD PELVIS [id number] 09:58:00Patient Name: OTONIEL HENDERSON Unit No: [id number] EXAMS: CPT CODE: [id number] CT ABD PELVIS W/CONT 21713 CT abdomen and pelvis with IV contrast. [...] Additional findings as above. Name: OTONIEL HENDERSON [facility] Phys: [email or web address] - Norbert William MD [address] : 1960 Age: 59 Sex: [place] [address] Loc: P.0723 1 Exam Date: 01/26/2020 Status: ADM IN PH: FAX: PAGE 1 Signed Report (CONTINUED) Patient Name: OTONIEL HENDERSON Unit No: [id number] EXAMS: CPT CODE: [id number] CT ABD PELVIS W/CONT 63618 <Continued> at 0958 Reported and signed by: OTONIEL ROSSI M.D. CC: Cristopher Doty MD; Norbert William MD Technologist: ANTONIO Martin(R)(CT) CTDI: 11.68 DLP: 602 Trscr Dt/Tm: 01/26/2020 (0958) by:[email or web address] Printed Date/Time: 01/26/2020 (1001)[facility]: VAR[facility]. - Norbert William MD [address] : 1960 Age: 59 Sex: [place] [address] Loc: P.0723 1 Exam Date: 01/26/2020 Status: ADM IN PH: FAX: PAGE 2 Signed ReportCOMPREHENSIVE METABOLIC [id number] 05:50:00 Test Item Value Reference Range Interpretation [...] PHOSPHATASE (test code = ALKP) CBC W/AUTO [id number] 04:55:00 Test Item Value Reference Range Interpretation [...] 0.15 x10 3/uL 0.0-0.20 N COMPREHENSIVE METABOLIC [id number] 18:44:00 Test Item Value Reference Range Interpretation [...] N PHOSPHATASE (test code = ALKP) PROTHROMBIN [id number] 18:32:00 Test Item Value Reference Range Interpretation [...] 2.5-3.5recurren t systemic emboli sm. CBC W/AUTO [id number] 18:26:00 Test Item Value Reference Range Interpretation [...]
--- NOTE | 2021-06-23 11:28 | RAD REPORT ---
EXAM DESCRIPTION: CT - Head Brain Wo Cont - 06/23/2021 11:18 am CLINICAL HISTORY: DIZZINESS COMPARISON: Head Brain Wo Cont dated 04/04/2021; Head Brain Wo Cont dated 01/14/2020 TECHNIQUE: All CT scans are performed using dose optimization technique as appropriate and may inclu de automated exposure control or mA/KV adjustment according to patient size. FINDINGS: No intracranial hemorrhage, hydrocephalus or extra-axial fluid collection.Patchy areas of white matter hypoattenuation within the subcortical and deep white matter. Remote left cerebellar inf arct. Some of the white matter changes were not clearly identified on the prior CT. The paranasal sinuses and mastoids are clear. The calvarium is intact. IMPRESSION: No acute large vascular territory infarct. Nonspecific subcortical and deep white matter hypoattenuation likely represent a combination of chronic small vessel ischemic changes and a age-in determinate infarcts. If concern for acute infarct, recommend MRI. No acute intracranial hemorrhage.
--- NOTE | 2021-06-23 11:28 | RAD REPORT ---
EXAM DESCRIPTION: RAD - Chest Single View - 06/23/2021 11:23 am CLINICAL HISTORY: Cough;Chest pain COMPARISON: Chest Single View dated 03/01/2021; Chest Single View dated 10/24/2019; Chest Single View d ated 10/14/2019; Chest Single View dated 09/06/2019 FINDINGS: Lines: None. Lungs: No evidence of edema or pneumonia. Pleural: No significant pleural effusions or pneumothorax. Cardiac: The heart size is within normal limits. Bones: No acute fractures. Other: IMPRESSION: No acute cardiopulmonary disease.
[2021-06-23 11:33] LABS: Absolute Lymphocytes (CBC) 1.3 K/uL (0.7-4.9); Basophils % 0.8 % (0-1.3); Hematocrit 38.8 % (39.6-49.0); Lymphocytes % 12.7 % (15.3-44.8); MPV 8.1 fL (7.6-11.3); RBC Red Blood Cell Count 4.47 M/uL (4.33-5.43)
[2021-06-23 11:34] LABS: Protime INR 0.95
[2021-06-23] MEDS ORDERED: NA CHLORIDE 0.9% 1,000 ML ONE (11:38)
[2021-06-23 11:42] LABS: ALT/SGPT 18 U/L (12-78); AST/SGOT 16 U/L (15-37); Albumin 3.3 g/dL (3.4-5.0); Alkaline Phosphatase 70 U/L (45-117); BUN Blood Urea Nitrogen 13 mg/dL (7-18); Bicarbonate 23 mmol/L (21-32); Bilirubin Direct 0.1 mg/dL (0-0.2); Bilirubin Total 0.4 mg/dL (0.2-1.0); Glucose Level 88 mg/dL (74-106); Lipase 155 U/L (73-393); Magnesium 2.1 mg/dL (1.8-2.4); NT PRO-BNP 98 pg/mL (<125); Potassium 4.3 mmol/L (3.5-5.1); Protein, Total 6.9 g/dL (6.4-8.2); Sodium Level 135 mmol/L (136-145); Troponin (Emerg Dept Use Only) < 0.02 ng/mL (0.0-0.045)
[2021-06-23] MEDS ORDERED: ONDANSETRON 4 MG/2 ML VIAL ONE (12:48)
[2021-06-23] MEDS ORDERED: MORPHINE 4 MG/ML SYR ONE (12:48)
--- NOTE | 2021-06-23 12:51 | ER ---
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 Was just sitting ll1 in vehicle, riding along. No strenuous activity. No CP, but noticed bilateral elbow pain. Coronavirus screen: Vaccine status: Patient reports receiving the 2nd dose of the covid vaccine. Client denies travel out of the [place] in the last 14 days. At this time, the client does not indicate any symptoms associated with coronavirus-19. Ebola Screen: Patient denies travel to an Ebola-affected area in the 21 days before illness onset. Initial Sepsis Screen: Does the patient meet any 2 criteria? HR > 90 bpm. No. Patient's initial sepsis screen is negative. Does the patient have a suspected source of infection? Yes: Other: dizzy. Risk Assessment: Do you want to hurt yourself or someone else? Patient reports no desire to harm self or others. Onset of symptoms was June 23, 2021. 10:17 Method Of Arrival: Ambulatory 1 10:17 Acuity: MARION 3 ll1 Triage Assessment: 10:57 General: Appears in no apparent distress. Pain: Complains of pain in general pain, legs kh1 arm chest Pain does not radiate. Pain currently is 8 out of 10 on a pain scale. EENT: No deficits noted. Neuro: No deficits noted. Level of Consciousness is awake, alert, obeys commands, Oriented to person, place, time, situation, Film Projector Operator are Gait is Speech is normal. Respiratory: Reports shortness of breath Onset: The symptoms/episode began/occurred suddenly, the patient has mild shortness of breath. 11:01 General: Behavior is calm, cooperative. 1 Historical: - Allergies: 10:16 No Known Allergies; ll1 - PMHx: 10:16 strokes x 3; Hypertensive disorder; ll1 - PSHx: 10:16 knee replacements; ll1 - Immunization history:: Client reports receiving the 2nd dose of the Covid vaccine, Flu vaccine is not up to date. - Social history:: Smoking status: Patient reports the use of cigarette tobacco products, smokes one pack cigarettes per day. - Family history:: not pertinent. Screenin:01 Abuse screen: Denies threats or abuse. Nutritional screening: No deficits noted. 1 Tuberculosis screening: No symptoms or risk factors identified. Fall Risk No IV (0 pts). Assessment: 11:00 Cardiovascular: Rhythm is regular Chest pain is described as mild. Respiratory: No [facility] deficits noted. Reports shortness of breath at rest Airway is patent Respiratory effort is even, unlabored. 12:00 Reassessment: Patient appears in no apparent distress at this time. No changes from [facility] previously documented assessment. Patient and/or family updated on plan of care and expected duration. Pain level reassessed. 13:00 Reassessment: Patient appears in no apparent distress at this time. No changes from [facility] previously documented assessment. Patient and/or family updated on plan of care and expected duration. Pain level reassessed. 14:00 Reassessment: Patient appears in no apparent distress at this time. No changes from [facility] previously documented assessment. Patient and/or family updated on plan of care and expected duration. Pain level reassessed. Vital Signs: 10:17 BP 117 / 77; Pulse 93; Resp 18; Temp 98.0; Pulse Ox 93% ; Weight 81.65 kg; Height 5 ft. ll1 11 in. (180.34 cm); Pain 8/10; 10:57 BP 131 / 84; Pulse 82; Resp 22; Temp 97.6; Pulse Ox 91% 2 lpm ; kh1 12:56 BP 135 / 82; Pulse 78; Resp 20; Pulse Ox 92% ; kh1 15:00 BP 155 / 95; Pulse 71; Resp 16; Pulse Ox 93% ; kg 16:15 BP 140 / 95; Pulse 96; Resp 20; Pulse Ox 95% on R/A; kg 10:17 Body Mass Index 25.10 (81.65 kg, 180.34 cm) ll1 NIH Stroke Scale Scores: 14:28 NIHSS Score: 0 foster ED Course: 10:07 Patient arrived in ED. jl7 10:14 Arm band placed on. ll1 10:20 Triage completed. ll1 10:57 Kaye Mason is Primary Nurse. kh1 10:59 Bjorn Nuno MD is Attending Physician. [facility] 11:01 Patient has correct armband on for positive identification. Bed in low position. Call [facility] light in reach. Side rails up X 1. Adult w/ patient. 11:01 No provider procedures requiring assistance completed. kh1 11:18 CT Head Brain wo Cont In Process Unspecified. EDMS 11:22 XRAY Chest (1 view) In Process Unspecified. EDMS 11:44 CBC with Automated Diff Sent. kh1 11:44 Basic Metabolic Panel Sent. kh1 11:44 CBC with Diff Sent. kh1 11:44 PT-INR Sent. kh1 12:50 Hoang Burns MD is Referral Physician. [facility] 16:01 IV discontinued, intact, bleeding controlled, No redness/swelling at site. Pressure kh1 dressing applied. Administered Medications: 11:44 Drug: NS 0.9% 1000 ml Route: IV; Rate: 1 bolus; Site: left forearm; kh1 12:28 Drug: morphine 4 mg Route: IVP; Site: left forearm; kh1 16:41 Follow up: Response: No adverse reaction kg 12:28 Drug: Zofran (Ondansetron) 4 mg Route: IVP; Site: left forearm; kh1 16:41 Follow up: Response: No adverse reaction kg 15:58 Not Given (pt left before givenn): Aspirin Chewable Tablet 162 mg PO once kh Outcome: 12:50 Discharge ordered by . [facility] 16:01 Discharged to home ambulatory. kh1 16:01 Condition: stable 16:01 Discharge instructions given to patient. 16:42 Patient left the ED. kg NIH Stroke Scale - NIH Stroke Score Date: 06/23/2021 Time: 14:28 Total Score = 0 1a. Level of Consciousness (LOC) - 0(Alert) 1b. Level of Consciousness (LOC) (Month \T\ Age) - 0(Both) 1c. LOC Commands (Open \T\ Closes Eyes/Chief Risk Officer) - 0(Both) 2. Best Gaze (Lateral Gaze Paresis) - 0(Normal) 3. Visual Field Loss - 0(No visual loss) 4. Facial Palsy - 0(Normal) 5a. Left Arm: Motor (10-second hold) - 0(No drift) 5b. Right Arm: Motor (10-second hold) - 0(No drift) 6a. Left Leg: Motor (5-second hold - always test supine) - 0(No drift) 6b. Right Leg: Motor (5-second hold - always test supine) - 0(No drift) 7. Limb Ataxia (finger/nose \T\ heel/armstrong - test with eyes open) - 0(Absent) 8. Sensory Loss (pinprick arms/legs/face) - 0(Normal) 9. Best Language: Aphasia (description/naming/reading) - 0(No aphasia) 10. Dysarthria (speech clarity - read or repeat words) - 0(Normal) 11. Extinction and Inattention (visual/tactile/auditory/spatial/personal) - 0(No abnormality) Initials: foster Signatures: Dispatcher [employer] EDMS Bjorn Nuno MD MD cha Leal, Jahala RN RN jl7 Christine Forrester RN RN ll1 Stephanie Zhou RN RN kg Kaye Mason 1 Corrections: (The following items were deleted from the chart) 10:17 10:16 PSHx: None; ll1 ll1
--- NOTE | 2021-06-23 12:52 | EDPHYS ---
Physician Documentation [facility] Name: Gregory Dumont Age: 61 yrs Sex: Male : 1960 Arrival Date: 06/23/2021 Time: 10:07 Bed 27 Private MD: ED Physician Bjorn Nuno HPI: 06/23 12:42 This 61 yrs old Male presents to ER via Ambulatory with complaints of foster Dizziness, Shortness Of Breath. 12:42 The patient presents with dizziness, generalized weakness. Onset: The symptoms/episode foster began/occurred just prior to arrival. Context: occurred sitting. Modifying factors: The symptoms are alleviated by nothing, the symptoms are aggravated by nothing. Associated signs and symptoms: The patient has no apparent associated signs or symptoms. Severity of symptoms: At their worst the symptoms were mild moderate in the emergency department the symptoms are unchanged. Patient's baseline: Neuro: alert and fully oriented. The patient has experienced similar episodes in the past, multiple times. Historical: - Allergies: 10:16 No Known Allergies; ll1 - PMHx: 10:16 strokes x 3; Hypertensive disorder; ll1 - PSHx: 10:16 knee replacements; ll1 - Immunization history:: Client reports receiving the 2nd dose of the Covid vaccine, Flu vaccine is not up to date. - Social history:: Smoking status: Patient reports the use of cigarette tobacco products, smokes one pack cigarettes per day. - Family history:: not pertinent. ROS: 12:42 Constitutional: Negative for fever, chills, and weight loss, Eyes: Negative for injury, foster pain, redness, and discharge, ENT: Negative for injury, pain, and discharge, Neck: Negative for injury, pain, and swelling, Cardiovascular: Negative for chest pain, palpitations, and edema, Respiratory: Negative for shortness of breath, cough, wheezing, and pleuritic chest pain, Abdomen/GI: Negative for abdominal pain, nausea, vomiting, diarrhea, and constipation, Back: Negative for injury and pain, : Negative for injury, bleeding, discharge, and swelling, MS/Extremity: Negative for injury and deformity, Skin: Negative for injury, rash, and discoloration, Neuro: Negative for headache, weakness, numbness, tingling, and seizure, Psych: Negative for depression, anxiety, suicide ideation, homicidal ideation, and hallucinations, Allergy/Immunology: Negative for hives, rash, and allergies, Endocrine: Negative for neck swelling, polydipsia, polyuria, polyphagia, and marked weight changes, Hematologic/Lymphatic: Negative for swollen nodes, abnormal bleeding, and unusual bruising. Exam: 12:42 Constitutional: This is a well developed, well nourished patient who is awake, alert, foster and in no acute distress. Head/Face: Normocephalic, atraumatic. Eyes: Pupils equal round and reactive to light, extra-ocular motions intact. Lids and lashes normal. Conjunctiva and sclera are non-icteric and not injected. Cornea within normal limits. Periorbital areas with no swelling, redness, or edema. ENT: Nares patent. No nasal discharge, no septal abnormalities noted. Tympanic membranes are normal and external auditory canals are clear. Oropharynx with no redness, swelling, or masses, exudates, or evidence of obstruction, uvula midline. Mucous membranes moist. Neck: Trachea midline, no thyromegaly or masses palpated, and no cervical lymphadenopathy. Supple, full range of motion without nuchal rigidity, or vertebral point tenderness. No Meningismus. Chest/axilla: Normal chest wall appearance and motion. Nontender with no deformity. No lesions are appreciated. Cardiovascular: Regular rate and rhythm with a normal S1 and S2. No gallops, murmurs, or rubs. Normal PMI, no JVD. No pulse deficits. Respiratory: Lungs have equal breath sounds bilaterally, clear to auscultation and percussion. No rales, rhonchi or wheezes noted. No increased work of breathing, no retractions or nasal flaring. Abdomen/GI: Soft, non-tender, with normal bowel sounds. No distension or tympany. No guarding or rebound. No evidence of tenderness throughout. Back: No spinal tenderness. No costovertebral tenderness. Full range of motion. Male : Normal genitalia with no discharge or lesions. Skin: Warm, dry with normal turgor. Normal color with no rashes, no lesions, and no evidence of cellulitis. MS/ Extremity: Pulses equal, no cyanosis. Neurovascular intact. Full, normal range of motion. Neuro: Awake and alert, GCS 15, oriented to person, place, time, and situation. Cranial nerves II-XII grossly intact. Motor strength 5/5 in all extremities. Sensory grossly intact. Cerebellar exam normal. Normal gait. Psych: Awake, alert, with orientation to person, place and time. Behavior, mood, and affect are within normal limits. 12:51 ECG was reviewed by the Attending Physician. foster Vital Signs: 10:17 BP 117 / 77; Pulse 93; Resp 18; Temp 98.0; Pulse Ox 93% ; Weight 81.65 kg; Height 5 ft. ll1 11 in. (180.34 cm); Pain 8/10; 10:57 BP 131 / 84; Pulse 82; Resp 22; Temp 97.6; Pulse Ox 91% 2 lpm ; kh1 12:56 BP 135 / 82; Pulse 78; Resp 20; Pulse Ox 92% ; kh1 15:00 BP 155 / 95; Pulse 71; Resp 16; Pulse Ox 93% ; kg 16:15 BP 140 / 95; Pulse 96; Resp 20; Pulse Ox 95% on R/A; kg 10:17 Body Mass Index 25.10 (81.65 kg, 180.34 cm) ll1 NIH Stroke Scale Scores: 14:28 NIHSS Score: 0 foster MDM: 10:59 Patient medically screened. foster 12:45 Differential diagnosis: cardiac arrhythmia, generalized weakness, hypovolemia, foster near-syncope. Data reviewed: vital signs, nurses notes, lab test result(s), EKG, radiologic studies, CT scan, plain films. Data interpreted: route supervisor: rate is 82 beats/min, rhythm is regular. Data interpreted: Pulse oximetry: on room air is 91 %. Test interpretation: by ED physician or midlevel provider: ECG, plain radiologic studies. Counseling: I had a detailed discussion with the patient and/or guardian regarding: the historical points, exam findings, and any diagnostic results supporting the discharge/admit diagnosis, lab results, radiology results. 06/23 11:03 Order name: Basic Metabolic Panel [facility] 06/23 11:03 Order name: CBC with Diff [facility] 06/23 11:03 Order name: LFT's; Complete Time: 12:13 foster 06/23 11:03 Order name: Magnesium; Complete Time: 12:13 [facility] 06/23 11:03 Order name: NT PRO-BNP; Complete Time: 12:13 [facility] 06/23 11:03 Order name: PT-INR; Complete Time: 12:13 [facility] 06/23 11:03 Order name: Troponin (emerg Dept Use Only); Complete Time: 12:13 [facility] 06/23 11:03 Order name: XRAY Chest (1 view); Complete Time: 12:13 [facility] 06/23 11:03 Order name: Lipase; Complete Time: 12:13 [facility] 06/23 11:03 Order name: CT Head Brain wo Cont; Complete Time: 12:13 [facility] 06/23 11:04 Order name: Basic Metabolic Panel; Complete Time: 12:13 [facility] 06/23 11:04 Order name: CBC with Automated Diff; Complete Time: 12:13 [facility] 06/23 11:03 Order name: EKG; Complete Time: 11:04 [facility] 06/23 11:03 Order name: Cardiac monitoring; Complete Time: 11:43 [facility] 06/23 11:03 Order name: EKG - Nurse/Tech; Complete Time: 11:43 [facility] 06/23 11:03 Order name: IV Saline Lock; Complete Time: 11:43 [facility] 06/23 11:03 Order name: Labs collected and sent; Complete Time: 11:43 [facility] 06/23 11:03 Order name: O2 Per Protocol; Complete Time: 11:43 [facility] 06/23 11:03 Order name: O2 Sat Monitoring; Complete Time: 11:43 [facility] 06/23 11:03 Order name: Urine Dipstick-Ancillary (obtain specimen) [facility] EC:51 Rate is 69 beats/min. Rhythm is regular. QRS [place] is Normal. SC interval is normal. QRS foster interval is normal. QT interval is normal. No Q waves. T waves are Normal. No ST changes noted. Clinical impression: Normal ECG, NSR w/ Non-specific ST/T Changes, and No evidence of ischemia. Interpreted by me. Reviewed by me. Administered Medications: 11:44 Drug: NS 0.9% 1000 ml Route: IV; Rate: 1 bolus; Site: left forearm; kh1 12:28 Drug: morphine 4 mg Route: IVP; Site: left forearm; kh1 16:41 Follow up: Response: No adverse reaction kg 12:28 Drug: Zofran (Ondansetron) 4 mg Route: IVP; Site: left forearm; kh1 16:41 Follow up: Response: No adverse reaction kg 15:58 Not Given (pt left before givenn): Aspirin Chewable Tablet 162 mg PO once kh1 Disposition Summary: 06/23/21 12:50 Discharge Ordered Location: Home foster Problem: new foster Symptoms: have improved foster Condition: Stable foster Diagnosis - Osteoarthritis, unspecified site foster - Essential (primary) hypertension foster Followup: foster - With: Private Physician - When: 2 - 3 days - Reason: Recheck today's complaints, Continuance of care, Re-evaluation by your physician Followup: foster - With: Hoang Burns MD - When: 2 - 3 days - Reason: Recheck today's complaints, Re-evaluation by your physician Discharge Instructions: - Discharge Summary Sheet foster - Arthritis foster - Hypertension, Adult foster - Hypertension, Adult, [id number] foster - Arthritis, [id number] foster - Aspirin and Your Heart foster - Managing Your Hypertension foster Forms: - Medication Reconciliation Form foster - Thank You Letter foster - Antibiotic Education foster - Prescription Opioid Use foster NIH Stroke Scale - NIH Stroke Score Date: 06/23/2021 Time: 14:28 Total Score = 0 1a. Level of Consciousness (LOC) - 0(Alert) 1b. Level of Consciousness (LOC) (Month \T\ Age) - 0(Both) 1c. LOC Commands (Open \T\ Closes Eyes/Specimen Preparation Assistant) - 0(Both) 2. Best Gaze (Lateral Gaze Paresis) - 0(Normal) 3. Visual Field Loss - 0(No visual loss) 4. Facial Palsy - 0(Normal) 5a. Left Arm: Motor (10-second hold) - 0(No drift) 5b. Right Arm: Motor (10-second hold) - 0(No drift) 6a. Left Leg: Motor (5-second hold - always test supine) - 0(No drift) 6b. Right Leg: Motor (5-second hold - always test supine) - 0(No drift) 7. Limb Ataxia (finger/nose \T\ heel/armstrong - test with eyes open) - 0(Absent) 8. Sensory Loss (pinprick arms/legs/face) - 0(Normal) 9. Best Language: Aphasia (description/naming/reading) - 0(No aphasia) 10. Dysarthria (speech clarity - read or repeat words) - 0(Normal) 11. Extinction and Inattention (visual/tactile/auditory/spatial/personal) - 0(No abnormality) Initials: foster Signatures: Dispatcher [employer] Bjorn Page MD MD cha Lewis, Lynsay, RN RN ll1 Kaye Mason [facility] Stephanie Zhou RN kg Corrections: (The following items were deleted from the chart) 10:17 10:16 PSHx: None; 1 1
[2021-06-23 17:09] VITALS: BP 140/95
[2021-06-23 17:16] VITALS: TEMP 98.2
[2021-06-23 17:21] VITALS: O2SAT 100
--- NOTE | 2021-06-24 11:29 | EKG ---
Test Date: 2021-06-23 Test Time: 11:37:34 Shake Splitter: LAKESHA MEASUREMENT RESULTS: Intervals: Rate: 69 CA: 136 QRSD: 92 QT: 422 QTc: 452 [place]: P: 65 CA: 136 QRS: 77 T: 63 INTERPRETIVE STATEMENTS: Normal sinus rhythm Normal ECG Compared to ECG 04/04/2021 19:58:34 No significant changes Electronically Signed On 06-24-21 11:26:55 CDT by Hoang Burns
== END 2021-06-23 16:42 | disposition home or self-care (01) ==
LOC: ER 10:06
DX: I10 Essential (primary) hypertension (principal); M19.90 Unspecified osteoarthritis, unspecified site; F17.210 Nicotine dependence, cigarettes, uncomplicated; Z86.73 Personal history of transient ischemic attack (TIA), and cerebral infarction without residual deficits
CPT/HCPCS: 93005; 85025; 80048; 36415; 83735; 85610; 80076; 84484; 83690; 83880; 70450; 71045; 96375; 96374; 99284; J7030; J2405

== ENCOUNTER 2021-07-27 16:58 | Emergency (ER) | payer OTHER ==
--- NOTE | 2021-07-27 18:18 | ER ---
Nurse's Notes [facility] Name: Gregory Dumont Age: 61 yrs Sex: Male : 1960 Arrival Date: 07/27/2021 Time: 16:59 Bed 8 Private MD: Diagnosis: Low back pain;Coccyx pain Presentation: 07/27 16:59 Chief complaint: EMS states: Toned out for back pain, pt with chronic back pain and jl7 reports "Threw his back out." Pt states on arrival to ED to look up Dr. Nuno's from previous ED visits to know what to treat pt with. Coronavirus screen: Vaccine status: Patient reports being unvaccinated. Ebola Screen: No symptoms or risks identified at this time. Initial Sepsis Screen: Does the patient meet any 2 criteria? No. Patient's initial sepsis screen is negative. Does the patient have a suspected source of infection? No. Patient's initial sepsis screen is negative. Risk Assessment: Do you want to hurt yourself or someone else? Patient reports no desire to harm self or others. Onset of symptoms was July 27, 2021. Care prior to arrival: None. 16:59 Method Of Arrival: EMS: [facility] jl7 16:59 Acuity: MARION 4 jl7 Triage Assessment: 17:02 General: Appears in no apparent distress. uncomfortable, Behavior is calm, cooperative. jl7 Pain: Complains of pain in back. Neuro: Level of Consciousness is awake, alert, obeys commands, Oriented to person, place, time, situation. Cardiovascular: Patient's skin is warm and dry. Respiratory: Airway is patent Respiratory effort is even, unlabored, Respiratory pattern is regular, symmetrical. Derm: Skin is pink, warm \\T\\ dry. Musculoskeletal: Swelling absent. Historical: - Allergies: 17:02 No Known Allergies; jl7 - PMHx: 17:02 Hypertensive disorder; strokes x 3; jl7 - PSHx: 17:02 knee replacements; jl7 - Immunization history:: Adult Immunizations not up to date. - Social history:: Smoking status: Patient reports the use of cigarette tobacco products. Screenin:03 Abuse screen: Denies threats or abuse. Denies injuries from another. Nutritional jl7 screening: No deficits noted. Tuberculosis screening: No symptoms or risk factors identified. Fall Risk None identified. Assessment: 17:05 General: SEE TRIAGE NOTE. bp 18:04 Reassessment: No changes from previously documented assessment. Patient and/or family bp updated on plan of care and expected duration. Pain level reassessed. Neuro: Level of Consciousness is awake, alert, obeys commands, Oriented to person, place, time, situation, Appropriate for age. 18:38 Reassessment: Pt discharged, requesting for ER doc to refill home medication. jl7 18:54 Reassessment: PT D/C HOME AMBULATORY, DX WITH CHRONIC BACK PAIN. bp Vital Signs: 16:59 BP 154 / 92; Pulse 73; Resp 17; Temp 97.1; Pulse Ox 97% ; Weight 86.18 kg; Height 5 ft. jl7 11 in. (180.34 cm); Pain 10/10; 18:06 BP 180 / 103; Pulse 80; Resp 18; Pulse Ox 95% ; bp 16:59 Body Mass Index 26.50 (86.18 kg, 180.34 cm) jl7 ED Course: 16:59 Patient arrived in ED. jl7 17:02 Triage completed. jl7 17:02 Arm band placed on right wrist. jl7 17:03 Patient has correct armband on for positive identification. Bed in low position. Call jl7 light in reach. Side rails up X 1. Pulse ox on. NIBP on. 17:06 Sherman Brown, NIKI is Primary Nurse. jl7 17:15 Mick Arshad MD is Attending Physician. kdr 17:50 Inserted saline lock: 20 gauge in right antecubital area, using aseptic technique. jl7 18:54 No provider procedures requiring assistance completed. IV discontinued, intact, bp bleeding controlled, No redness/swelling at site. Pressure dressing applied. Administered Medications: 18:02 Drug: morphine 4 mg Route: IVP; Site: right antecubital; jl7 18:53 Follow up: Response: No adverse reaction bp 18:02 Drug: SOLU-Medrol (methylPrednisoLONE) 125 mg Route: IVP; Site: right antecubital; jl7 18:53 Follow up: Response: No adverse reaction bp 18:02 Drug: Zofran (Ondansetron) 4 mg Route: IVP; Site: right antecubital; jl7 18:54 Follow up: Response: No adverse reaction bp 18:02 Drug: Flexeril (cyclobenzaprine) 10 mg Route: PO; bp 18:54 Follow up: Response: No adverse reaction bp 18:02 Drug: Ketorolac 15 mg Route: IVP; Site: right antecubital; jl7 18:54 Follow up: Response: No adverse reaction bp Outcome: 18:18 Discharge ordered by . kdr 18:54 Discharged to home ambulatory. bp 18:54 Condition: stable 18:54 Discharge instructions given to patient, Instructed on discharge instructions, follow up and referral plans. medication usage, Demonstrated understanding of instructions, follow-up care, medications, Prescriptions given X 3. 18:56 Patient left the ED. bp Signatures: Mick Arshad MD MD kdr Sherman Brown RN RN jl7 Carlos Eduardo Goddard, RN RN bp Corrections: (The following items were deleted from the chart) 18:05 17:50 Inserted saline lock: 20 gauge in right forearm, using aseptic technique. bp jl7 18:06 18:02 Ketorolac 15 mg IVP in right forearm bp jl7 18:06 18:02 morphine 4 mg IVP in right forearm bp jl7 18:06 18:02 SOLU-Medrol (methylPrednisoLONE) 125 mg IVP in right forearm bp jl7 18:06 18:02 Zofran (Ondansetron) 4 mg IVP in right forearm bp jl7
[2021-07-27] MEDS ORDERED: MORPHINE 4 MG/ML SYR ONE (18:19)
[2021-07-27] MEDS ORDERED: CYCLOBENZAPRINE 10 MG TAB ONE (18:19)
[2021-07-27] MEDS ORDERED: METHYLPREDNISOLONE 125 MG INJ ONE (18:19)
--- NOTE | 2021-07-27 18:19 | EDPHYS ---
Physician Documentation [facility] Name: Gregory Dumont Age: 61 yrs Sex: Male : 1960 Arrival Date: 07/27/2021 Time: 16:59 Bed 8 Private MD: ED Physician Mick Arshad Historical: - Allergies: 07/27 17:02 No Known Allergies; jl7 - PMHx: 17:02 Hypertensive disorder; strokes x 3; jl7 - PSHx: 17:02 knee replacements; jl7 - Immunization history:: Adult Immunizations not up to date. - Social history:: Smoking status: Patient reports the use of cigarette tobacco products. Vital Signs: 16:59 BP 154 / 92; Pulse 73; Resp 17; Temp 97.1; Pulse Ox 97% ; Weight 86.18 kg; Height 5 ft. jl7 11 in. (180.34 cm); Pain 10/10; 18:06 BP 180 / 103; Pulse 80; Resp 18; Pulse Ox 95% ; bp 16:59 Body Mass Index 26.50 (86.18 kg, 180.34 cm) jl7 MDM: 18:18 Patient medically screened. kdr Administered Medications: 18:02 Drug: morphine 4 mg Route: IVP; Site: right antecubital; jl7 18:53 Follow up: Response: No adverse reaction bp 18:02 Drug: SOLU-Medrol (methylPrednisoLONE) 125 mg Route: IVP; Site: right antecubital; jl7 18:53 Follow up: Response: No adverse reaction bp 18:02 Drug: Zofran (Ondansetron) 4 mg Route: IVP; Site: right antecubital; jl7 18:54 Follow up: Response: No adverse reaction bp 18:02 Drug: Flexeril (cyclobenzaprine) 10 mg Route: PO; bp 18:54 Follow up: Response: No adverse reaction bp 18:02 Drug: Ketorolac 15 mg Route: IVP; Site: right antecubital; jl7 18:54 Follow up: Response: No adverse reaction bp Disposition Summary: 07/27/21 18:18 Discharge Ordered Location: Home kdr Problem: an acute exacerbation kdr Symptoms: have improved kdr Condition: Stable kdr Diagnosis - Low back pain kdr - Coccyx pain kdr Followup: kdr - With: Private Physician - When: 2 - 3 days - Reason: If symptoms return, Further diagnostic work-up, Recheck today's complaints, Continuance of care, Re-evaluation by your physician Discharge Instructions: - Discharge Summary Sheet kdr - Acute Back Pain, Adult kdr - Chronic Back Pain kdr Forms: - Medication Reconciliation Form kdr - Thank You Letter kdr - Prescription Opioid Use kdr Prescriptions: - Ibuprofen 600 mg Oral Tablet - take 1 tablet by ORAL route every 6 hours As needed take with food; 15 tablet; kdr Refills: 0, Product Selection Permitted - Cyclobenzaprine 10 mg Oral Tablet - take 1 tablet by ORAL route every 8 hours As needed; 15 tablet; Refills: 0, kdr Product Selection Permitted - gabapentin 400 mg Oral capsule - take 1 capsule by ORAL route At bedtime; 15 capsule; Refills: 0, Product kdr Selection Permitted - Tramadol 50 mg Oral Tablet - take 1 tablet by ORAL route every 8 hours as needed; 12 tablet; Refills: 0, kdr Product Selection Permitted Signatures: Mick Arshad MD MD kdr Leal, Jahala RN RN jl7 Carlos Eduardo Goddard, RN RN bp
[2021-07-27] MEDS ORDERED: KETOROLAC 30 MG/ML INJ ONE (18:20)
[2021-07-27] MEDS ORDERED: ONDANSETRON 4 MG/2 ML VIAL ONE (18:20)
[2021-07-27 19:10] VITALS: TEMP 97.1
[2021-07-27 19:11] VITALS: BP 180/103; O2SAT 95
== END 2021-07-27 18:56 | disposition home or self-care (01) ==
LOC: ER 16:58
DX: M53.3 Sacrococcygeal disorders, not elsewhere classified (principal); I10 Essential (primary) hypertension; F17.210 Nicotine dependence, cigarettes, uncomplicated; Z86.73 Personal history of transient ischemic attack (TIA), and cerebral infarction without residual deficits
CPT/HCPCS: 96375; 96374; 99284; J2930; J2405

== ENCOUNTER 2021-08-03 17:39 | Emergency (ER) | payer OTHER ==
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
[2021-08-03 18:31] VITALS: BP 115/83; TEMP 97.5; O2SAT 95
== END 2021-08-03 18:23 | disposition home or self-care (01) ==
LOC: ER 17:39
DX: G89.4 Chronic pain syndrome (principal); I10 Essential (primary) hypertension; F17.210 Nicotine dependence, cigarettes, uncomplicated; Z86.73 Personal history of transient ischemic attack (TIA), and cerebral infarction without residual deficits
CPT/HCPCS: 99282

== ENCOUNTER 2021-08-10 10:12 | Inpatient (IN) | payer OTHER ==
[2021-08-10 11:49] LABS: Absolute Lymphocytes (CBC) 1.9 K/uL (0.7-4.9); Basophils % 0.6 % (0-1.3); Hematocrit 44.7 % (39.6-49.0); Lymphocytes % 16.9 % (15.3-44.8); MPV 8.6 fL (7.6-11.3); RBC Red Blood Cell Count 5.25 M/uL (4.33-5.43)
[2021-08-10 11:50] LABS: Protime INR 0.93
--- NOTE | 2021-08-10 11:56 | RAD REPORT ---
EXAM DESCRIPTION: CT - Head Brain Wo Cont - 08/10/2021 11:38 am CLINICAL HISTORY: NUMBNESS Headache, drowsiness COMPARISON: Head Brain Wo Cont dated 06/23/2021; Head Brain Wo Cont dated 04/04/2021 TECHNIQUE: All CT scans are performed using dose optimization technique as appropriate and may inclu de automated exposure control or mA/KV adjustment according to patient size. FINDINGS: No intracranial hemorrhage, hydrocephalus or extra-axial fluid collection.16 mm area of di minished density in the right basal ganglia most compatible with subacute CVA.No areas of brain edema or evidence of midline shift. The paranasal sinuses and mastoids are clear. The calvarium is intact. IMPRESSION: 16 mm nonhemorrhagic subacute CVA suspected right basal ganglia. No acute bleed is evident.
--- NOTE | 2021-08-10 12:15 | ER ---
Nurse's Notes [facility] Name: Gregory Dumont Age: 61 yrs Sex: Male : 1960 Arrival Date: 08/10/2021 Time: 10:15 Bed 14 Private MD: Diagnosis: Cerebral infarction, unspecified Presentation: 08/10 10:33 Chief complaint: Patient states: "I got lightheaded and dizzy today and almost passed aa5 out". Pt denies nausea/vomiting. Coronavirus screen: At this time, the client does not indicate any symptoms associated with coronavirus-19. Ebola Screen: No symptoms or risks identified at this time. Initial Sepsis Screen: Does the patient meet any 2 criteria? HR > 90 bpm. Does the patient have a suspected source of infection? No. Patient's initial sepsis screen is negative. Risk Assessment: Do you want to hurt yourself or someone else? Patient reports no desire to harm self or others. Onset of symptoms was August 10, 2021. 10:33 Method Of Arrival: Wheelchair aa5 10:33 Acuity: MARION 3 aa5 Historical: - Allergies: 10:33 No Known Allergies; aa5 - PMHx: 10:32 Hypertensive disorder; strokes x 3; aa5 - PSHx: 10:32 knee replacements; aa5 - Immunization history:: Client reports receiving the 2nd dose of the Covid vaccine. - Social history:: Smoking status: Patient reports the use of cigarette tobacco products, smokes one pack cigarettes per day. Screenin:42 Abuse screen: Denies threats or abuse. Nutritional screening: No deficits noted. tw2 Tuberculosis screening: No symptoms or risk factors identified. Fall Risk Secondary diagnosis (15 points) impaired mobility. 10:42 Fall Risk Secondary diagnosis (15 points) CVA. tw2 Assessment: 10:40 General: Appears in no apparent distress. unkempt, Behavior is calm, cooperative, tw2 appropriate for age. General: significant other reports "i think he has an infection in his gums that is causing this because his teeth are bad and he wont go to the dentist". Pain: Complains of pain in "bad teeth". Neuro: Level of Consciousness is awake, alert, obeys commands, Oriented to person, place, time, situation. Cardiovascular: Capillary refill < 3 seconds. Respiratory: Airway is patent Respiratory effort is even, unlabored, Respiratory pattern is regular, symmetrical. GI: No signs and/or symptoms were reported involving the gastrointestinal system. Abdomen is round non-distended. Musculoskeletal: Range of motion: intact in all extremities. 11:18 Reassessment: provider at bedside at this time. tw2 11:58 Reassessment: Patient appears in no apparent distress at this time. No changes from tw2 previously documented assessment. Patient and/or family updated on plan of care and expected duration. Pain level reassessed. Patient is alert, oriented x 3, equal unlabored respirations, skin warm/dry/pink. 12:03 Reassessment: provider at bedside at this time. tw2 12:24 Reassessment: hospitalist at bedside at this time. tw2 14:58 Reassessment: Patient appears in no apparent distress at this time. No changes from tw2 previously documented assessment. Patient and/or family updated on plan of care and expected duration. Pain level reassessed. Patient is alert, oriented x 3, equal unlabored respirations, skin warm/dry/pink. Vital Signs: 10:33 BP 111 / 79; Pulse 95; Resp 16 S; Temp 97.8(TE); Pulse Ox 97% on R/A; Weight 86.18 kg; aa5 Height 5 ft. 11 in. (180.34 cm) (R); 11:58 BP 120 / 88; Pulse 73; Resp 20; Pulse Ox 96% on R/A; tw2 13:00 BP 114 / 98; Pulse 84; Resp 17; Pulse Ox 96% on R/A; tw2 14:00 BP 140 / 98; Pulse 80; Resp 17; Pulse Ox 98% on R/A; tw2 14:56 BP 149 / 96; Pulse 74; Resp 17; Pulse Ox 97% on R/A; tw2 10:33 Body Mass Index 26.50 (86.18 kg, 180.34 cm) aa5 NIH Stroke Scale Scores: 12:11 NIHSS Score: 1 8 ED Course: 10:15 Patient arrived in ED. as 10:33 Arm band placed on. aa5 10:34 Triage completed. aa5 10:35 Bed in low position. Call light in reach. pvc monitor on. Pulse ox on. NIBP on. tw2 10:39 Zane Gonzalez PA is PHCP. jr8 10:39 Marsha Serrano MD is Attending Physician. jr8 10:40 Kaylee Tate, NIKI is Primary Nurse. tw2 11:30 Inserted saline lock: 20 gauge in left forearm, using aseptic technique. Blood tw2 collected. 11:38 CT Head Brain wo Cont In Process Unspecified. EDMS 12:14 Dionte Prieto is Hospitalizing Provider. jr8 12:23 XRAY Chest (1 view) In Process Unspecified. EDMS 15:03 No provider procedures requiring assistance completed. Patient admitted, IV remains in tw2 place. Administered Medications: 12:42 Drug: Aspirin 81 mg Route: PO; tw2 15:13 Follow up: Response: No adverse reaction tw2 12:42 Drug: PlaVIX (clopidogrel) 75 mg Route: PO; tw2 15:13 Follow up: Response: No adverse reaction tw2 12:42 Drug: foLIC Acid 1 mg Route: IVPB; Site: left forearm; tw2 12:43 Follow up: Response: No adverse reaction; IV Status: Completed infusion; IV Intake: tw2 0.2ml Intake: 12:43 IV: 0ml; Total: 0ml. tw2 Outcome: 12:14 Decision to Hospitalize by Provider. jr8 15:03 Admitted to tw2 15:03 Admitted to Med/surg accompanied by tech, via stretcher, room 425, with chart, Report called to NIKI Welch 15:03 Condition: stable 15:03 Instructed on follow up and referral plans. 15:13 Patient left the ED. tw2 NIH Stroke Scale - NIH Stroke Score Date: 08/10/2021 Time: 12:11 Total Score = 1 1a. Level of Consciousness (LOC) - 0(Alert) 1b. Level of Consciousness (LOC) (Month \\T\\ Age) - 0(Both) 1c. LOC Commands (Open \\T\\ Closes Eyes/Import Customs Clearing Agent) - 0(Both) 2. Best Gaze (Lateral Gaze Paresis) - 0(Normal) 3. Visual Field Loss - 0(No visual loss) 4. Facial Palsy - 0(Normal) 5a. Left Arm: Motor (10-second hold) - 0(No drift) 5b. Right Arm: Motor (10-second hold) - 0(No drift) 6a. Left Leg: Motor (5-second hold - always test supine) - 0(No drift) 6b. Right Leg: Motor (5-second hold - always test supine) - 0(No drift) 7. Limb Ataxia (finger/nose \\T\\ heel/armstrong - test with eyes open) - 0(Absent) 8. Sensory Loss (pinprick arms/legs/face) - 1(Mild to moderate loss) 9. Best Language: Aphasia (description/naming/reading) - 0(No aphasia) 10. Dysarthria (speech clarity - read or repeat words) - 0(Normal) 11. Extinction and Inattention (visual/tactile/auditory/spatial/personal) - 0(No abnormality) Initials: jr8 Signatures: Dispatcher [employer] EDMS Padmini Donovan Audri, RN RN aa5 Zane Gonzalez PA PA jr8 Kaylee Tate RN RN tw2 Corrections: (The following items were deleted from the chart) 10:35 10:33 86.18 kg; Height 5 ft. 11 in. Reported; BMI: 26.5; aa5 aa5
--- NOTE | 2021-08-10 12:15 | EDPHYS ---
Physician Documentation [facility] Name: Gregory Dumont Age: 61 yrs Sex: Male : 1960 Arrival Date: 08/10/2021 Time: 10:15 Bed 14 Private MD: ED Physician Marsha Serrano HPI: 08/10 12:11 This 61 yrs old Male presents to ER via Wheelchair with complaints of Near jr8 Syncope. 12:11 This is a 61-year-old male patient that presented to the emergency room with complaints jr8 of dizziness and feeling that he was going to pass out. Patient stated that he had increased numbness to the left side of his body as well. Patient stated that he has had strokes in the past with some mild weakness to the left side that has evolved over the last several months. Today though the numbness had worsened.. Historical: - Allergies: 10:33 No Known Allergies; aa5 - PMHx: 10:32 Hypertensive disorder; strokes x 3; aa5 - PSHx: 10:32 knee replacements; aa5 - Immunization history:: Client reports receiving the 2nd dose of the Covid vaccine. - Social history:: Smoking status: Patient reports the use of cigarette tobacco products, smokes one pack cigarettes per day. ROS: 12:11 Eyes: Negative for injury, pain, redness, and discharge, ENT: Negative for injury, jr8 pain, and discharge, Neck: Negative for injury, pain, and swelling, Cardiovascular: Negative for chest pain, palpitations, and edema, Respiratory: Negative for shortness of breath, cough, wheezing, and pleuritic chest pain, Abdomen/GI: Negative for abdominal pain, nausea, vomiting, diarrhea, and constipation, Back: Negative for injury and pain, MS/Extremity: Negative for injury and deformity, Skin: Negative for injury, rash, and discoloration. 12:11 Neuro: Positive for numbness, weakness, of the left arm and left leg. Exam: 12:11 Constitutional: This is a well developed, well nourished patient who is awake, alert, jr8 and in no acute distress. Eyes: Pupils equal round and reactive to light, extra-ocular motions intact. Lids and lashes normal. Conjunctiva and sclera are non-icteric and not injected. Cornea within normal limits. Periorbital areas with no swelling, redness, or edema. ENT: Nares patent. No nasal discharge, no septal abnormalities noted. Tympanic membranes are normal and external auditory canals are clear. Oropharynx with no redness, swelling, or masses, exudates, or evidence of obstruction, uvula midline. Mucous membranes moist. Neck: Trachea midline, no thyromegaly or masses palpated, and no cervical lymphadenopathy. Supple, full range of motion without nuchal rigidity, or vertebral point tenderness. No Meningismus. Cardiovascular: Regular rate and rhythm with a normal S1 and S2. No gallops, murmurs, or rubs. Normal PMI, no JVD. No pulse deficits. Respiratory: Lungs have equal breath sounds bilaterally, clear to auscultation and percussion. No rales, rhonchi or wheezes noted. No increased work of breathing, no retractions or nasal flaring. Abdomen/GI: Soft, non-tender, with normal bowel sounds. No distension or tympany. No guarding or rebound. No evidence of tenderness throughout. Back: No spinal tenderness. No costovertebral tenderness. Full range of motion. Skin: Warm, dry with normal turgor. Normal color with no rashes, no lesions, and no evidence of cellulitis. MS/ Extremity: Pulses equal, no cyanosis. Neurovascular intact. Full, normal range of motion. 12:11 Neuro: Orientation: to person, place \\T\\ time. Mentation: is normal, Memory: is normal, Cranial nerves: CN I not tested, CN II- XII are normal as tested, visual ng are intact. extraocular movements are intact, Facial palsy and sensory deficits are absent. Speech is clear and appropriate. Tongue strength is normal, Cerebellar function: normal finger to nose testing, heel to armstrong testing is normal, Motor: moves all fours, Sensation: numbness, that is mild, of the face, left arm and left leg, seizure activity, is not displayed by the patient, Abnormal movements: there are no abnormal movements. Vital Signs: 10:33 BP 111 / 79; Pulse 95; Resp 16 S; Temp 97.8(TE); Pulse Ox 97% on R/A; Weight 86.18 kg; aa5 Height 5 ft. 11 in. (180.34 cm) (R); 11:58 BP 120 / 88; Pulse 73; Resp 20; Pulse Ox 96% on R/A; tw2 13:00 BP 114 / 98; Pulse 84; Resp 17; Pulse Ox 96% on R/A; tw2 14:00 BP 140 / 98; Pulse 80; Resp 17; Pulse Ox 98% on R/A; tw2 14:56 BP 149 / 96; Pulse 74; Resp 17; Pulse Ox 97% on R/A; tw2 10:33 Body Mass Index 26.50 (86.18 kg, 180.34 cm) aa5 NIH Stroke Scale Scores: 12:11 NIHSS Score: 1 MDM: 10:39 Patient medically screened. 12:11 Data reviewed: vital signs, nurses notes, lab test result(s), EKG, radiologic studies, jr8 CT scan, plain films. Data interpreted: Pulse oximetry: on room air is 96 %. Interpretation: normal. Counseling: I had a detailed discussion with the patient and/or guardian regarding: the historical points, exam findings, and any diagnostic results supporting the discharge/admit diagnosis, lab results, radiology results, the need for further work-up and treatment in the hospital. 08/10 11:21 Order name: Basic Metabolic Panel; Complete Time: 13:07 8 08/10 11:21 Order name: CBC with Diff; Complete Time: 12:[address] [facility] 08/10 11:21 Order name: LFT's; Complete Time: 13: 8 08/10 11:21 Order name: Magnesium; Complete Time: 13:07 8 08/10 11:21 Order name: NT PRO-BNP; Complete Time: 13:07 8 08/10 11:21 Order name: PT-INR; Complete Time: 12:00 8 08/10 11:21 Order name: Troponin (emerg Dept Use Only); Complete Time: 13:07 8 08/10 11:21 Order name: XRAY Chest (1 view); Complete Time: 12:47 8 08/10 11:21 Order name: CT Head Brain wo Cont; Complete Time: 12:00 8 08/10 12:17 Order name: COVID-19 (Coronavirus) Document "Date of Onset" if Symptomatic 5 08/10 13:50 Order name: COVID-19/FLU A+B; Complete Time: 14:09 [facility] 08/10 11:21 Order name: EKG; Complete Time: 11:21 8 08/10 11:21 Order name: Cardiac monitoring; Complete Time: 11:23 8 08/10 11:21 Order name: EKG - Nurse/Tech; Complete Time: 11:32 8 08/10 11:21 Order name: IV Saline Lock; Complete Time: 11:33 8 08/10 11:21 Order name: Labs collected and sent; Complete Time: 11:33 8 08/10 11:21 Order name: O2 Per Protocol; Complete Time: 11:23 8 08/10 11:21 Order name: O2 Sat Monitoring; Complete Time: 11: Administered Medications: 12:42 Drug: Aspirin 81 mg Route: PO; tw2 15:13 Follow up: Response: No adverse reaction tw2 12:42 Drug: PlaVIX (clopidogrel) 75 mg Route: PO; tw2 15:13 Follow up: Response: No adverse reaction tw2 12:42 Drug: foLIC Acid 1 mg Route: IVPB; Site: left forearm; tw2 12:43 Follow up: Response: No adverse reaction; IV Status: Completed infusion; IV Intake: tw2 0.2ml Disposition: 08/11 08:52 Co-signature as Attending Physician, Marsha Serrano MD I agree with the assessment and sp3 plan of care. Disposition Summary: 08/10/21 12:14 Hospitalization Ordered Hospitalization Status: Inpatient Admission [facility] Provider: Dionte Prieto Location: Telemetry/MedSur (Inpatient) [facility] Condition: Stable [facility] Problem: new [facility] Symptoms: are unchanged [facility] Bed/Room Type: Standard [facility] Room Assignment: 425(08/10/21 14:14) dw Diagnosis - Cerebral infarction, unspecified jr Discharge Instructions: - Discharge Summary Sheet tw2 Forms: - Medication Reconciliation Form jr8 - SBAR form jr8 NIH Stroke Scale - NIH Stroke Score Date: 08/10/2021 Time: 12:11 Total Score = 1 1a. Level of Consciousness (LOC) - 0(Alert) 1b. Level of Consciousness (LOC) (Month \\T\\ Age) - 0(Both) 1c. LOC Commands (Open \\T\\ Closes Eyes/Business Banking Sales Assistant) - 0(Both) 2. Best Gaze (Lateral Gaze Paresis) - 0(Normal) 3. Visual Field Loss - 0(No visual loss) 4. Facial Palsy - 0(Normal) 5a. Left Arm: Motor (10-second hold) - 0(No drift) 5b. Right Arm: Motor (10-second hold) - 0(No drift) 6a. Left Leg: Motor (5-second hold - always test supine) - 0(No drift) 6b. Right Leg: Motor (5-second hold - always test supine) - 0(No drift) 7. Limb Ataxia (finger/nose \\T\\ heel/armstrong - test with eyes open) - 0(Absent) 8. Sensory Loss (pinprick arms/legs/face) - 1(Mild to moderate loss) 9. Best Language: Aphasia (description/naming/reading) - 0(No aphasia) 10. Dysarthria (speech clarity - read or repeat words) - 0(Normal) 11. Extinction and Inattention (visual/tactile/auditory/spatial/personal) - 0(No abnormality) Initials: mihaela Signatures: Dispatcher [employer] Shiela Jaramillo RN RN dw Jessie Palmer RN RN aa5 Zane Gonzalez PA PA jr8 Wise, Tara, RN RN tw2 Marsha Serrano MD MD sp3 Corrections: (The following items were deleted from the chart) 08/10 14:14 12:14 mihaela medrano
--- NOTE | 2021-08-10 12:42 | RAD REPORT ---
EXAM DESCRIPTION: RAD - Chest Single View - 08/10/2021 12:23 pm CLINICAL HISTORY: CHEST PAIN Chest pain. COMPARISON: Chest Single View dated 06/23/2021; Chest Single View dated 03/01/2021; Chest Single View d ated 10/24/2019; Chest Single View dated 10/14/2019 FINDINGS: Portable technique limits examination quality. The lungs are grossly clear. The heart is normal in size. Mildly tortuous thoracic aorta. No displace d fractures.Old traumatic changes left superior posterior thoracic cage. IMPRESSION: No acute intrathoracic process suspected.
[2021-08-10] MEDS ORDERED: ASPIRIN EC 81 MG TAB PO ONE (12:46)
[2021-08-10] MEDS ORDERED: CLOPIDOGREL 75 MG TABLET ONE (12:47)
[2021-08-10] MEDS ORDERED: FOLIC ACID 5 MG/ML VIAL ONE (12:48)
[2021-08-10 13:02] LABS: ALT/SGPT 27 U/L (12-78); AST/SGOT 18 U/L (15-37); Albumin 3.6 g/dL (3.4-5.0); Alkaline Phosphatase 94 U/L (45-117); BUN Blood Urea Nitrogen 9 mg/dL (7-18); Bicarbonate 22 mmol/L (21-32); Bilirubin Direct < 0.1 mg/dL (0-0.2); Bilirubin Total 0.3 mg/dL (0.2-1.0); Glucose Level 92 mg/dL (74-106); Magnesium 2.2 mg/dL (1.8-2.4); NT PRO-BNP 219 pg/mL (<125); Potassium 4.5 mmol/L (3.5-5.1); Protein, Total 7.5 g/dL (6.4-8.2); Sodium Level 141 mmol/L (136-145); Troponin (Emerg Dept Use Only) < 0.02 ng/mL (0.0-0.045)
--- NOTE | 2021-08-10 13:12 | P.HP ---
Certification for Inpatient Patient admitted to: Observation With expected LOS: <2 Midnights Patient will require the following post-hospital care: None Practitioner: I am a practitioner with admitting privileges, knowledge of patient current condition, hospital course, and medical plan of care. Services: Services provided to patient in accordance with Admission requirements found in Title 42 Section 412.3 of the Code of Federal Regulations Patient History Date of Service: 08/10/21 Primary Care Provider: Dr. Rodriguez Reason for admission: Sub Acute CVA History of Present Illness: Chest Single View - 08/10/2021 12:23 pm CLINICAL HISTORY: CHEST PAIN COMPARISON: Chest Single View dated 06/23/2021; Chest Single View dated 03/01/2021; Chest Single View dated 10/24/2019; Chest Single View dated 10/14/2019 FINDINGS: Portable technique limits examination quality. The lungs are grossly clear. The heart is normal in size. Mildly tortuous thoracic aorta. No displaced fractures.Old traumatic changes left superior posterior thoracic cage. IMPRESSION: No acute intrathoracic process suspected. CT - Head Brain Wo Cont - 08/10/2021 11:38 am CLINICAL HISTORY: NUMBNESS Headache, drowsiness COMPARISON: Head Brain Wo Cont dated 06/23/2021; Head Brain Wo Cont dated 04/04/2021 TECHNIQUE: All CT scans are performed using dose optimization technique as appropriate and may include automated exposure control or mA/KV adjustment according to patient size. FINDINGS: No intracranial hemorrhage, hydrocephalus or extra-axial fluid collection.16 mm area of diminished density in the right basal ganglia most compatible with subacute CVA.No areas of brain edema or evidence of midline shift. The paranasal sinuses and mastoids are clear. The calvarium is intact. IMPRESSION: 16 mm nonhemorrhagic subacute CVA suspected right basal ganglia. No acute bleed is evident. CBC remarkable for elevated WBC (11). Pt notes this is chronic finding. Chemistries pending. The patient has a history of a closed head injury in approximately 2009. He notes history of CVA in 1997 and 2 CVAs in May 2020. He has no residual effects from these prior strokes per patient. Approximately 9 months ago the patient began to experience left-sided weakness which included his side arm hand and foot. These episodes would occur once every couple of months up until now. He would develop weakness in his hand arm side and leg which would last approximately 2 days. While experiencing the weakness there was some difficulty getting around but he was still able to walk although he states that he wobbled. This morning he noted lightheadedness and dizziness and developed some left- sided weakness. At this time he still has mild left-sided weakness. Allergies No Known Allergies Allergy (Verified 08/19/19 17:27) Home Medications: Cyclobenzaprine [Flexeril*] 1 tab PO DAILY 10/24/19 [place] Carbonate [[place] Carbonate ER] 1 tab PO BID 10/24/19 Memantine HCl 1 tab PO BID 10/24/19 Mirtazapine 30 mg PO BEDTIME 10/24/19 Temazepam [Restoril*] 15 mg PO BEDTIME PRN 10/24/19 Venlafaxine HCl [Effexor Xr] 1 cap PO DAILY 10/24/19 Ciprofloxacin HCl [Cipro 500 MG Tablet] 500 mg PO DAILY 14 Days tab 10/30/19 Codeine/APAP [Tylenol W/Codeine #3 tab] 1 tab PO Q6HP PRN #30 tab 10/30/19 metroNIDAZOLE [Flagyl] 500 mg PO Q8H 14 Days tablet 10/30/19 - Past Medical/Surgical History Has patient received pneumonia vaccine in the past: Yes Diabetic: No -: Bipolar disorder -: Hypoglycemia -: ADHD -: Osteoarthritis of the knee -: Nephrolithiasis -: Right renal cyst -: CVA 3 times -: Former tobacco use -: Hepatitis-C -: Depression -: Irregular HR -: Rt knee replacement 08/09/16 -: Lt knee replacement Psychosocial/ Personal History: He is , has 2 children, he does not work. - Family History Mother -: Other (see notes) Notes: Hypoglycemia - Social History Smoking Status: Heavy Tobacco smoker (>10 cigarettes/day) Alcohol use: No CD- Drugs: No Caffeine use: Yes Place of Residence: Home Review of Systems 10-point ROS is otherwise unremarkable General: Weakness (Episodes of lightheadedness and weakness) Eyes: Unremarkable ENT: Unremarkable Respiratory: Unremarkable Cardiovascular: Unremarkable Gastrointestinal: Unremarkable Genitourinary: Unremarkable Musculoskeletal: Back Pain, Other (Left sided discomfort) Integumentary: Unremarkable Neurological: Weakness, Numbness Lymphatics: Unremarkable Physical Examination - Physical Exam General: Alert, In no apparent distress, Oriented x3 HEENT: Atraumatic, Normocephalic, PERRLA Neck: Supple, JVD not distended Respiratory: Clear to auscultation bilaterally, Normal air movement Cardiovascular: No edema, Normal pulses, Regular rate/rhythm Capillary refill: <2 Seconds Gastrointestinal: Normal bowel sounds, Soft and benign, Distended (Mildly distended. Of concern to pt but he has been told it is weight gain) Musculoskeletal: No clubbing, No swelling, No contractures Integumentary: No rashes, No breakdown Neurological: Abnormal gait, Abnormal strength (left sided weakness. Able to move but decreased strength), Abnormal sensation External genitalia: Deferred Rectal: Deferred - Studies Laboratory Data (last 24 hrs) 08/10/21 11:30: PT 10.7, INR 0.93 08/10/21 11:30: WBC 11.00 H, Hgb 15.2, Hct 44.7, Plt Count 246 08/10/21 11:30: Sodium 141, Potassium 4.5, BUN 9, Creatinine 1.07, Glucose 92, Magnesium 2.2, Total Bilirubin 0.3, AST 18, ALT 27, Alkaline Phosphatase 94 Assessment and Plan - Plan Assessment: Subacute CVA HTN Hypoglycemia CVA hx Plan: Subacute CVA: Admit for observation, Neurology consult. Q four hour neurochecks. HTN: Currently non-contributory Hypoglycemia Currently non-contributory CVA hx Currently non-contributory DVT PPx: Lovenox 40mg SQ CODE STATUS: Full Code Discharge Plan: Home Plan to discharge in: 48 Hours - Advance Directives Does patient have a Living Will: No Does patient have a Durable POA for Healthcare: No - Code Status/Comfort Care Code Status Assessed: Yes Code Status: Full Code Critical Care: No Time Spent Managing Pts Care (In Minutes): 70
[2021-08-10 13:50] LABS: SARS-COV-2 RT PCR NEGATIVE (NEGATIVE)
[2021-08-10] MEDS ORDERED: ACETAMINOPHEN 500 MG TAB PO PRN (16:05)
[2021-08-10] MEDS ORDERED: ONDANSETRON 4 MG/2 ML VIAL IV PRN (16:05)
[2021-08-10] MEDS: MORPHINE 2 MG/ML SYR IV PRN ×2 (16:53→20:40)
[2021-08-10] MEDS: ENOXAPARIN 40 MG/0.4 ML SQ SCH (16:53)
[2021-08-10] MEDS ORDERED: ENOXAPARIN 40 MG/0.4 ML SQ SCH (17:00)
[2021-08-10] MEDS ORDERED: ASPIRIN EC 81 MG TAB PO SCH (17:00)
[2021-08-10 17:23] LABS: NT PRO-BNP 164 pg/mL (<125); Troponin I < 0.02 ng/mL (0.0-0.045)
[2021-08-10 17:55] VITALS: BMI 27.1
[2021-08-10 20:13] LABS: Urine Appearance CLEAR (Clear); Urine Bilirubin NEGATIVE (Negative); Urine Blood NEGATIVE (Negative); Urine Color YELLOW (Yellow); Urine Glucose NEGATIVE (Negative); Urine Protein NEGATIVE (Negative); Urine Specific Gravity 1.015 (1.005-1.030); Urine Urobilinogen 0.2 mg/dL (0.2-1.0); Urine pH 6.5 (5.0-7.0)
[2021-08-10] MEDS: TRAMADOL HCL 50 MG TAB PO PRN (20:39)
[2021-08-10 20:41] LABS: Urine Microscopic Reflex NO UMIC
[2021-08-11] MEDS: MORPHINE 2 MG/ML SYR IV PRN ×3 (00:37→08:54)
[2021-08-11] MEDS: TRAMADOL HCL 50 MG TAB PO PRN ×3 (03:31→18:56)
[2021-08-11 04:13] LABS: Basophils % 0.5 % (0-1.3); Hematocrit 39.7 % (39.6-49.0); Lymphocytes % 18.2 % (15.3-44.8); MPV 8.6 fL (7.6-11.3); RBC Red Blood Cell Count 4.62 M/uL (4.33-5.43)
[2021-08-11 04:33] LABS: ALT/SGPT 28 U/L (12-78); AST/SGOT 16 U/L (15-37); Albumin 3.1 g/dL (3.4-5.0); Alkaline Phosphatase 81 U/L (45-117); BUN Blood Urea Nitrogen 10 mg/dL (7-18); Bicarbonate 25 mmol/L (21-32); Bilirubin Total 0.3 mg/dL (0.2-1.0); Glucose Level 110 mg/dL (74-106); HDL Cholesterol 29 mg/dL (40-60); Protein, Total 6.5 g/dL (6.4-8.2); Sodium Level 141 mmol/L (136-145)
[2021-08-11 04:46] LABS: LDL, Direct 139 mg/dL (100-129)
[2021-08-11] MEDS: ENOXAPARIN 40 MG/0.4 ML SQ SCH (07:13)
[2021-08-11] MEDS: ASPIRIN EC 81 MG TAB PO SCH (07:14)
[2021-08-11] MEDS ORDERED: ARFORMOTEROL TARTRATE 15 MCG/2 ML VIAL.NEB ONE (08:05)
--- NOTE | 2021-08-11 12:14 | EKG ---
Test Date: 2021-08-10 Test Time: 18:23:07 Admissions Dean: LISA MEASUREMENT RESULTS: Intervals: Rate: 77 KS: 128 QRSD: 100 QT: 422 QTc: 477 [place]: P: 59 KS: 128 QRS: 73 T: 63 INTERPRETIVE STATEMENTS: Normal sinus rhythm Normal ECG Compared to ECG 08/10/2021 11:28:18 No significant changes Electronically Signed On 08-11-21 12:12:52 CDT by Hoang Burns
--- NOTE | 2021-08-11 12:16 | EKG ---
Test Date: 2021-08-10 Test Time: 11:28:18 Chief Strategy Officer: ALEXI MEASUREMENT RESULTS: Intervals: Rate: 76 ME: 126 QRSD: 88 QT: 408 QTc: 459 [place]: P: 73 ME: 126 QRS: 84 T: 82 INTERPRETIVE STATEMENTS: Normal sinus rhythm Normal ECG Compared to ECG 06/23/2021 11:37:34 No significant changes Electronically Signed On 08-11-21 12:13:05 CDT by Hoang Burns
--- NOTE | 2021-08-11 17:36 | P.PN ---
Date of Service: 08/11/21 Subjective: No acute events overnight Patient without any new complaints, reports left-sided numbness and weakness of upper and lower extremities Continues to have intermittent dizziness/feel like the room is spinning when he gets up at times ROS: 10 point ROS as noted above, otherwise negative Physical exam GEN: Alert, oriented, NAD HEENT: Normal conjunctiva, sclera anicteric CV: Regular rate and rhythm, no edema Pulm: Nonlabored respirations on room air ABD: Soft, nontender, nondistended Integumentary: No rashes Neuro: LUE/LLE: 4+/5, decreased sensation to light touch in left upper and left lower extremity Problem List Subacute CVA HTN Bipolar disorder History of hepatitis C COPD History of multiple CVAs CT with right basal ganglia findings concerning for stroke Continue aspirin, statin Unsure/unclear what medications patient was taking Neurology was consulted MRI ordered Monitor on telemetry Patient with history of multiple CVAs, high risk PT consulted, patient reports unsteadiness and vertigo-like symptoms May benefit from SNF versus rehab Dispo: anticipate dc in 1-2 days, possible SNF/rehab vs home Time Spent Managing Pts Care (In Minutes): 35
[2021-08-11] MEDS: LIDOCAINE 4% PATCH TOP SCH (18:57)
--- NOTE | 2021-08-11 19:44 | RAD REPORT ---
EXAM DESCRIPTION: MRI - Brain W/Wo Cont - 08/11/2021 6:45 pm CLINICAL HISTORY: Dizziness COMPARISON: Head CT 08/10/2021 TECHNIQUE: Sagittal and axial T1-weighted images were obtained. Axial PD/heavily T2-weighted and T2- FLAIR images were obtained along with axial DWI/ADC mapping sequences. Axial and coronal post-contras t T1-weighted images were also obtained. FINDINGS: T2 hyperintense 18 mm focus in the region of the right thalamus corresponding with the fin dings on the CT from 08/10/2021. No diffusion restriction is seen. No abnormal enhancement. No mass e ffect or midline shift. No hydrocephalus . Moderate chronic small vessel ischemic changes with sequel a of remote khalil radiata infarcts. Post-contrast images show normal enhancement. No dural thickening. Mastoid air cells and paranasal sinuses are clear. IMPRESSION: Findings most consistent with a subacute right thalamic infarct. No acute intracranial a bnormality or abnormal enhancement is identified.
--- NOTE | 2021-08-11 20:50 | RAD REPORT ---
EXAM DESCRIPTION: MRI - MRA Head Wo Cont - 08/11/2021 6:45 pm CLINICAL HISTORY: cva CVA COMPARISON: Brain W/Wo Cont dated 08/11/2021 FINDINGS: 3D noncontrast [id number] MR angiography of the [place] of [place] was performed. No aneurysm, flow-limiting stenosis or vascular malformation is seen. Forward flow seen in codominant vertebral arteries. The visualized dural venous sinuses appear patent. IMPRESSION: No significant flow abnormality of the [place] is identified.
--- NOTE | 2021-08-11 20:52 | RAD REPORT ---
EXAM DESCRIPTION: MRI - MRA Neck W/Wo Cont - 08/11/2021 6:45 pm CLINICAL HISTORY: cva COMPARISON: No comparisons FINDINGS: Contrast enhance 2D [id number] MR angiography of the neck vessels was performed. No hemodynamically significant stenosis identified. Undulation of the right proximal ICA at the bifur cation probably within normal limits. No other similar abnormalities identified. IMPRESSION: No hemodynamically significant stenosis is present within the neck.
--- NOTE | 2021-08-11 22:01 | CON ---
Consultation called because of possible new stroke. History Of Present Illness: Mr. Amaya is a 61-year-old patient with bipolar disorder and report ed, per the patient, 6 strokes. He has had 3 CT scans of his head, which have shown 3 different area s involving subacute to chronic strokes. He comes today after reportedly nearly falling out of a foster ir as he almost passed out. He said his left side became somewhat weaker and he has a prosthetic lef t knee, which does not support him, plus he has numbness in the left side. At [facility] th e patient actually has refused to get out of bed with physical therapist stating he cannot stand and is refusing to stand. His head CT scan, which was compared to multiple prior studies, he has had a t otal of least [address] scans in about 4 years, showed chronic strokes. There is a 16 mm area of non hemorrhagic subacute stroke identified in the right basal ganglia that study was done yesterday. The re was a CT scan from June 23, 2021 and showing a remote left cerebellar infarct and a CT scan fr om April 04, 2021 showing a 9 mm low-density area in the right centrum semiovale, which represented li ayush chronic infarct. Past Medical History: As noted including hypertension, bipolar disorder, multiple strokes. Past Surgical History: Left knee replacement by Dr. Dubon 4 years ago. Allergies: NO KNOWN DRUG ALLERGIES. Home Medications: He has not been taking aspirin regularly, although he should and reports actually not being compliant with medications. Review of Systems: Not reliable, but the patient denies any fevers or chills. No paralysis or myalgias. Physical Examination: Vital Signs: Blood pressure 129/80, pulse 70, respiratory rate 16, temperature 97.4, oxygen saturati on 95%. General: Mr. Amaya is resting in bed. He is in no acute distress. He appears normocephalic, a traumatic. Sclerae appears anicteric. Oropharynx is moist. Neck: Supple. Chest: Clear. Heart: Regular. Extremities: Show no significant edema, cyanosis, or clubbing. Neurologic: The patient is very con frontational, refusing to provide answers to simple questions and is tangential in his answers. It i s very difficult to determine if he has true weakness, however, he claims the left side is weaker zeny n the right and he cannot feel much in the left compared to the right side. He is able to lift his r ight leg off the bed and hold for a count of 5. He could not lift the left leg off the bed and he re fused to stand. Otherwise, no reflexes on the left and trace reflex in the right upper and lower ext remity. His coordination appears intact. Laboratory Studies: Complete blood count with differential is essentially unremarkable. Coagulation panel unremarkable. Chemistries essentially unremarkable. Glucose 90 to 210. His triglycerides 44 8. Total cholesterol 236, LDL cholesterol 139, HDL 29. Liver function studies unremarkable. Urinal ysis unremarkable. COVID-19 test, influenza A and B negative. MRA of his head and neck, MRI of the brain are pending. Electrocardiogram is normal. Assessment: Mr. Amaya is a 61-year-old patient with multiple stroke risk factors reportedly mul tiple strokes. He also smokes pack cigarettes daily and has bipolar disorder and is noncompliant wit h medications. He refuses to participate in any formal therapy. At this point, the patient may be d ischarged to his facility. He will require assistance for his transfers and mobilization at some i nt. Hopefully, he can begin to participate in physical therapy to regain some useful transfers and also distances in terms of his ambulation, perhaps with a walker. He will follow up in clinic as needed. RONNIE Voice ID: [id number] Report ID: [id number]
[2021-08-12 04:33] VITALS: BP 144/75
[2021-08-12 05:03] LABS: Albumin 3.3 g/dL (3.4-5.0); Bilirubin Total 0.5 mg/dL (0.2-1.0); Potassium 4.3 mmol/L (3.5-5.1); Protein, Total 7.2 g/dL (6.4-8.2)
[2021-08-12 05:05] LABS: Absolute Lymphocytes (CBC) 1.6 K/uL (0.7-4.9); Basophils % 0.5 % (0-1.3); Hematocrit 43.2 % (39.6-49.0); Lymphocytes % 12.4 % (15.3-44.8); MPV 8.6 fL (7.6-11.3); RBC Red Blood Cell Count 5.09 M/uL (4.33-5.43)
[2021-08-12] MEDS: TRAMADOL HCL 50 MG TAB PO PRN (07:28)
[2021-08-12] MEDS: LIDOCAINE 4% PATCH TOP SCH (07:29)
[2021-08-12] MEDS: ENOXAPARIN 40 MG/0.4 ML SQ SCH (07:30)
[2021-08-12] MEDS: ASPIRIN EC 81 MG TAB PO SCH (07:35)
[2021-08-12 07:38] VITALS: TEMP 98
--- NOTE | 2021-08-12 08:27 | RAD REPORT ---
EXAM DESCRIPTION: US - CP - 08/12/2021 7:03 am CLINICAL HISTORY: CVA, h/o multiple CVAs COMPARISON: MRA Neck W/Wo Cont dated 08/11/2021 TECHNIQUE: Real-time sonographic evaluation of both carotid systems was performed. Doppler interroga tion was performed with waveform tracing bilaterally. FINDINGS: Normal high resistance waveforms are noted in both external carotid arteries. The common c arotid arteries and internal carotid arteries show normal low resistance waveforms. Mild soft plaque noted at the bilateral carotid bifurcations Peak systolic and end diastolic velocity values and the ICA/CCA ratios are in the non-hemodynamically significant range. Antegrade flow seen in both vertebral arteries. IMPRESSION: Mild soft plaque at the carotid bifurcations. No evidence of a hemodynamically significant stenosis.
[2021-08-12 08:37] VITALS: O2SAT 95
[2021-08-12] MEDS ORDERED: FOLIC ACID 1 MG TABLET PO SCH (09:00)
--- NOTE | 2021-08-12 09:15 | P.DS ---
Admission Date: 08/11/21 Discharge Date: 08/12/21 Primary Care Provider: Dr. Rodriguez Disposition: ROUTINE DISCHARGE Discharge Condition: GOOD Reason for Admission: Sub Acute CVA Consultations: Neurology - Dr. Romero Procedures: CXR (08/10): No acute intrathoracic process suspected. CT Head (08/10): IMPRESSION: 16 mm nonhemorrhagic subacute CVA suspected right basal ganglia. No acute bleed is evident. MRI Brain (08/11): IMPRESSION: Findings most consistent with a subacute right thalamic infarct. No acute intracranial abnormality or abnormal enhancement is identified. MRA Brain (08/11): IMPRESSION: No significant flow abnormality of the [place] of [place] is identified. MRA Neck (08/11): IMPRESSION: No hemodynamically significant stenosis is present within the neck. Carotid U/S (08/12): FINDINGS: Normal high resistance waveforms are noted in both external carotid arteries. The common carotid arteries and internal carotid arteries show normal low resistance waveforms. Mild soft plaque noted at the bilateral carotid bifurcations Peak systolic and end diastolic velocity values and the ICA/CCA ratios are in the non- hemodynamically significant range. Antegrade flow seen in both vertebral arteries. IMPRESSION: Mild soft plaque at the carotid bifurcations. No evidence of a hemodynamically significant stenosis. Problem List Subacute CVA HTN Bipolar disorder History of hepatitis C COPD History of multiple CVAs Brief History of Present Illness: 61yo M, PMH: closed head injury ~2009, CVA in 1997, 2 CVAs in 2019 with no residual effects. PResented to ED due to Left sided weakness, numbness, lightheadedness, and balance issues. Reports over last 9 months he has been having similar episodes of similar symptoms intermittently. He presented to ED this time as it wasn't seeming to get better like before. Hospital Course: Workup consistent with a subacute R thalamic infarct seen on MRI. Patient did not want to work with PT while inpatient and did not want to go to inpatient rehab or SNF. He had some mild improvement of his symptoms. He was adamant on being discharged home. CT, MRA, Carotid U/S were all negative for any specific cause for his stroke. An echo was ordered for completion, however patient did not want to wait for it to be done. He was advised to f/u with PCP / neurology who can help facilitate having an echocardiogram done as an outpatient. Patient reported taking eliquis for the last 2-3 months for PE. He did miss an occasional dose, which may have contributed to the stroke. Compliance to his medications was reviewed and he was discharged to continue eliquis, statin, and folic acid. Vital Signs/Physical Exam: Physical exam GEN: Alert, oriented, NAD HEENT: Normal conjunctiva, sclera anicteric CV: Regular rate and rhythm, no edema Pulm: Nonlabored respirations on room air ABD: Soft, nontender, nondistended Integumentary: No rashes Neuro: LUE/LLE: 5-/5, decreased sensation to light touch in left upper extremity, left abdomen / chest, and left lower extremity Temp Pulse Resp BP Pulse Ox 98 F 78 18 144/75 H 98 08/12/21 07:36 08/12/21 07:36 08/12/21 07:36 08/12/21 07:36 08/12/21 07:36 Laboratory Data at Discharge: WBC 12.70 K/uL (4.3-10.9) H D 08/12/21 03:23 Hgb 15.0 g/dL (13.6-17.9) 08/12/21 03:23 Hct 43.2 % (39.6-49.0) 08/12/21 03:23 Plt Count 238 K/uL (152-406) 08/12/21 03:23 PT 10.7 SECONDS (9.5-12.5) 08/10/21 11:30 INR 0.93 08/10/21 11:30 Sodium 139 mmol/L (136-145) 08/12/21 03:23 Potassium 4.3 mmol/L (3.5-5.1) 08/12/21 03:23 BUN 10 mg/dL (7-18) 08/12/21 03:23 Creatinine 1.05 mg/dL (0.55-1.3) 08/12/21 03:23 Glucose 111 mg/dL (74-106) H 08/12/21 03:23 Magnesium 2.2 mg/dL (1.8-2.4) 08/10/21 11:30 Total Bilirubin 0.5 mg/dL (0.2-1.0) 08/12/21 03:23 AST 15 U/L (15-37) 08/12/21 03:23 ALT 29 U/L (12-78) 08/12/21 03:23 Alkaline Phosphatase 95 U/L (45-117) 08/12/21 03:23 Troponin I < 0.02 ng/mL (0.0-0.045) 08/12/21 00:12 Triglycerides 448 mg/dL (<150) H 08/11/21 03:27 Cholesterol 236 mg/dL (<200) H 08/11/21 03:27 LDL Cholesterol Direct 139 mg/dL (100-129) H 08/11/21 03:27 HDL Cholesterol 29 mg/dL (40-60) L 08/11/21 03:27 Cholesterol/HDL Ratio 8.14 08/11/21 03:27 Home Medications: RX: Cyclobenzaprine [Flexeril*] 1 tab PO DAILY 10/24/19 RX: [place] Carbonate [[place] Carbonate ER] 1 tab PO BID 10/24/19 RX: Memantine HCl 1 tab PO BID 10/24/19 RX: Mirtazapine 30 mg PO BEDTIME 10/24/19 RX: Temazepam [Restoril*] 15 mg PO BEDTIME PRN 10/24/19 RX: Venlafaxine HCl [Effexor Xr] 1 cap PO DAILY 10/24/19 RX: Codeine/APAP [Tylenol #3*] 1 tab PO Q6HP PRN #30 tab 10/30/19 RX: Atorvastatin Calcium [Lipitor] 40 mg PO BEDTIME 30 Days #30 tab 08/12/21 RX: Folic Acid 1 mg PO DAILY 30 Days #30 tablet 08/12/21 New Medications: RX: Folic Acid 1 mg PO DAILY 30 Days #30 tablet RX: Atorvastatin Calcium [Lipitor] 40 mg PO BEDTIME 30 Days #30 tab Physician Discharge Instructions: You were found to have a R sided stroke, causing your numbness, weakness, and balance issues on your left side. You had some improvement of your symptoms. Please follow up with your PCP in 3-5 days. Follow up with Neurology in 1-2 months. Continue eliquis as previously prescribed, continue your bipolar medications, you are prescribed atorvastatin (cholesterol pill) to help protect from future strokes and to help with your high cholesterol. Recommend folic acid for the next 2 months as well. Diet: AHA Activity: Fall precautions Followup: Tigre Romero MD [ASSOCIATE-ACTIVE - CAN ADMIT] - (Call to schedule appointment) NONE,NONE [Primary Care Provider] - Time spent managing pt's care (in minutes): 45
[2021-08-12] MEDS ORDERED: ATORVASTATIN 40 MG TAB PO SCH (21:00)
== END 2021-08-12 09:42 | disposition home or self-care (01) | DRG 65 ==
LOC: ER 10:12 → ERHOLD 12:58 → 4TH 15:05 → OBSVTOIN 08-11 12:12
PROVIDERS: ADMIT Internal Medicine; ATTEND Hospitalist
DX: I63.9 Cerebral infarction, unspecified (principal); G81.91 Hemiplegia, unspecified affecting right dominant side; E16.2 Hypoglycemia, unspecified; I10 Essential (primary) hypertension; F31.9 Bipolar disorder, unspecified; J44.9 Chronic obstructive pulmonary disease, unspecified; F17.210 Nicotine dependence, cigarettes, uncomplicated; R55 Syncope and collapse; R29.701 NIHSS score 1; Z96.659 Presence of unspecified artificial knee joint; Z86.73 Personal history of transient ischemic attack (TIA), and cerebral infarction without residual deficits; Z79.899 Other long term (current) drug therapy; Z91.14 Patient's other noncompliance with medication regimen; Z96.653 Presence of artificial knee joint, bilateral; Z20.822 Contact with and (suspected) exposure to COVID-19
CPT/HCPCS: 0240U; 36415; 70450; 70544; 70549; 70553; 71045; 80048; 80053; 80061; 80076; 81003; 83735; 83880; 84484; 85025; 85610; 93005; 93880; 94760; 96374; 97161; 99285; A9577; G0378; J1650; J2270; J2405; J7605

== ENCOUNTER 2021-08-17 12:10 | Inpatient (IN) | payer OTHER ==
--- NOTE | 2021-08-17 12:55 | RAD REPORT ---
EXAM DESCRIPTION: CT - Ct Stroke Brain Wo Cont - 08/17/2021 12:44 pm CLINICAL HISTORY: DIZZINESS COMPARISON: Head Brain Wo Cont dated 08/10/2021; Head Brain Wo Cont dated 06/23/2021; MRA Head Wo Cont dated 08/11/2021; Brain W/Wo Cont dated 08/11/2021 TECHNIQUE: All CT scans are performed using dose optimization technique as appropriate and may inclu de automated exposure control or mA/KV adjustment according to patient size. FINDINGS: No intracranial hemorrhage, hydrocephalus or extra-axial fluid collection.Sequela of prior right posterior frontal and colonic infarcts with similar distribution to 08/10/2021. The paranasal sinuses and mastoids are clear. The calvarium is intact. IMPRESSION: Subacute and/or chronic are right sided cerebral and thalamic infarcts without infarct e xtension or hemorrhage.
[2021-08-17 13:10] LABS: Absolute Lymphocytes (CBC) 1.5 K/uL (0.7-4.9); Basophils % 0.5 % (0-1.3); Hematocrit 39.5 % (39.6-49.0); Lymphocytes % 13.3 % (15.3-44.8); MPV 8.2 fL (7.6-11.3); Protime INR 1.2; RBC Red Blood Cell Count 4.54 M/uL (4.33-5.43)
[2021-08-17 13:34] LABS: ALT/SGPT 25 U/L (12-78); AST/SGOT 15 U/L (15-37); Alkaline Phosphatase 78 U/L (45-117); BUN Blood Urea Nitrogen 9 mg/dL (7-18); Bicarbonate 24 mmol/L (21-32); Bilirubin Direct < 0.1 mg/dL (0-0.2); Bilirubin Total 0.3 mg/dL (0.2-1.0); Glucose Level 125 mg/dL (74-106); NT PRO-BNP 119 pg/mL (<125); Potassium 3.6 mmol/L (3.5-5.1); Protein, Total 6.4 g/dL (6.4-8.2); Sodium Level 141 mmol/L (136-145); Troponin (Emerg Dept Use Only) < 0.02 ng/mL (0.0-0.045)
[2021-08-17] MEDS ORDERED: NA CHLORIDE 0.9% 1,000 ML ONE (13:48)
[2021-08-17] MEDS ORDERED: FAMOTIDINE 20 MG/2 ML VIAL IV ONE (13:48)
[2021-08-17] MEDS ORDERED: FOLIC ACID 5 MG/ML VIAL ONE (13:50)
--- NOTE | 2021-08-17 13:59 | RAD REPORT ---
EXAM DESCRIPTION: RAD - Chest Single View - 08/17/2021 1:53 pm CLINICAL HISTORY: COUGH COMPARISON: Chest Single View dated 08/10/2021; Chest Single View dated 06/23/2021; Chest Single View dated 03/01/2021; Chest Single View dated 10/24/2019 FINDINGS: Lines: None. Lungs: No evidence of edema or pneumonia. Pleural: No significant pleural effusions or pneumothorax. Cardiac: The heart size is within normal limits. Bones: No acute fractures. Other: IMPRESSION: No acute cardiopulmonary disease.
[2021-08-17] MEDS ORDERED: ONDANSETRON 4 MG/2 ML VIAL ONE ×2 (14:22→20:48)
[2021-08-17] MEDS ORDERED: MORPHINE 4 MG/ML SYR ONE ×3 (14:22→20:48)
--- NOTE | 2021-08-17 14:32 | RAD REPORT ---
EXAM DESCRIPTION: MRI - Brain Wo Cont - 08/17/2021 2:18 pm CLINICAL HISTORY: Dizziness;Numbness COMPARISON: Brain W/Wo Cont dated 08/11/2021; MRA Head Wo Cont dated 08/11/2021; Head Brain Wo Cont dated 08/10/2021 TECHNIQUE: Sagittal T1-weighted images were obtained along with PD/heavily T2-weighted and T2-FLAIR images. Axial DWI and ADC mapping sequences were also obtained along with coronal heavily T2-weighted images were obtained. FINDINGS: No intracranial hemorrhage, mass or acute infarction. There is no edema or shift of midlin e structures. No extra-axial fluid collections. Signal voids are seen as a normal finding in the sushant r intracranial vessels. Moderate chronic small vessel ischemic changes. Sequela of remote right the l ine neck and khalil radiata infarcts. Mastoid air cells and paranasal sinuses are clear. IMPRESSION: No acute intracranial abnormality. Previously noted diffusion restriction has resolved.
--- NOTE | 2021-08-17 15:22 | ER ---
Nurse's Notes [facility] Name: Gregory Dumont Age: 61 yrs Sex: Male : 1960 Arrival Date: 08/17/2021 Time: 12:11 Bed 5 Private MD: Diagnosis: Third [oculomotor] nerve palsy, left eye;Cerebral infarction, unspecified;Essential (primary) hypertension;Tobacco abuse counseling;Tobacco use Presentation: 08/17 12:26 Chief complaint: EMS states: Toned out for numbness and weakness from left side, pt ll3 reports waking up at 0500 and his eyes were crossed, lead nitrate processor strength equal bilaterally. Coronavirus screen: At this time, the client does not indicate any symptoms associated with coronavirus-19. Ebola Screen: No symptoms or risks identified at this time. Initial Sepsis Screen: Does the patient meet any 2 criteria? No. Patient's initial sepsis screen is negative. Does the patient have a suspected source of infection? No. Patient's initial sepsis screen is negative. Risk Assessment: Do you want to hurt yourself or someone else? Patient reports no desire to harm self or others. Onset of symptoms is unknown. Care prior to arrival: IV initiated. 20 GA, in the left forearm. 12:26 Method Of Arrival: EMS: [facility] ll3 12:26 Acuity: MARION 3 ll3 Triage Assessment: 12:33 General: Appears in no apparent distress. uncomfortable, Behavior is calm, cooperative, ll3 appropriate for age. Pain: Complains of pain in left arm and left leg Pain currently is 10 out of 10 on a pain scale. Neuro: Level of Consciousness is awake, alert, obeys commands, Oriented to person, place, time, situation, Appropriate for age Vehicle Damage Appraiser are equal bilaterally Moves all extremities. Full function Speech is normal, Facial symmetry appears normal. Cardiovascular: Patient's skin is warm and dry. Respiratory: Airway is patent Respiratory effort is even, unlabored, Respiratory pattern is regular, symmetrical. Derm: Skin is pink, warm \T\ dry. Historical: - Allergies: 12:33 No Known Allergies; ll3 - Home Meds: 22:12 gabapentin 400 mg Oral cap [Active]; bs2 - PMHx: 12:33 Hypertensive disorder; strokes x 3; ll3 - PSHx: 12:33 knee replacements; ll3 - Immunization history:: Client reports receiving the 2nd dose of the Covid vaccine, moderna. - Social history:: Smoking status: Patient reports the use of cigarette tobacco products, cigars. - Family history:: not pertinent. Screenin:15 VAN Screening: Arm Drift: Patient shows no arm weakness. Patient is VAN negative. The jl7 patient has not been NPO before screening. The patient is currently on the following diet: Home The patient is alert, able to follow commands. The patient does not exhibit slurred or garbled speech The patient is not exhibiting difficulty speaking. The patient does not exhibit difficulty understanding words. The patient is able to swallow own secretions with no drooling or need for suction. Patient tolerated one teaspoon of water. No drooling, immediate coughing, gurgling, or clearing of the throat was noted. The patient tolerated 90mL of water. No drooling, immediate coughing, gurgling, or clearing of the throat was noted. The patient passed the bedside swallow screening. Oral medications may be given as ordered. Contact Physician for further diet orders. Provider notified of bedside swallow screening results: Bjorn Nuno MD. 13:17 Abuse screen: Denies threats or abuse. Denies injuries from another. Nutritional ll3 screening: No deficits noted. Tuberculosis screening: No symptoms or risk factors identified. Fall Risk IV access (20 points). Total Mcdaniel Fall Scale indicates No Risk (0-24 pts). Assessment: 12:30 General: See triage. jl7 13:26 Reassessment: Pt requesting pain medicine, Dr. Nuno notified, VO for 4 mg Morphine jl7 IVP and 4 mg Zofran IVP, pt medicated as ordered. 16:50 Reassessment: Pt requesting more pain medication, Dr. Nuno notified, VO for 4 mg jl7 Morphine, IVP, pt medicated as ordered. Vital Signs: 12:26 BP 148 / 99; Pulse 69; Resp 14; Temp 97.7; Pulse Ox 96% on R/A; Weight 86.18 kg; Height ll3 5 ft. 11 in. (180.34 cm); Pain 10/10; 12:45 BP 150 / 91; Pulse 70; Resp 18; Pulse Ox 96% ; jl7 13:17 BP 139 / 94; Pulse 64; Resp 20; Pulse Ox 99% ; ll3 14:00 BP 158 / 85; Pulse 65; Resp 19; Pulse Ox 98% ; jl7 16:00 BP 167 / 97; Pulse 67; Resp 15; Pulse Ox 96% ; jl7 16:45 BP 154 / 96; Pulse 76; Resp 19; Pulse Ox 97% ; jl7 19:15 BP 186 / 111; Pulse 80; Resp 17; Pulse Ox 96% on R/A; jt3 22:13 BP 166 / 93; Pulse 75; Resp 17; Temp 98.6; Pulse Ox 95% ; Pain 9/10; bs2 12:26 Body Mass Index 26.50 (86.18 kg, 180.34 cm) ll3 NIH Stroke Scale Scores: 12:15 NIHSS Score: 3 jl7 14:52 NIHSS Score: 9 [facility] ED Course: 12:11 Patient arrived in ED. mh5 12:15 Joseph Celaya, RN is Primary Nurse. jt3 12:25 Sherman Brown, NIKI is Primary Nurse. jl7 12:29 Bjorn Nuno MD is Attending Physician. foster 12:33 Triage completed. ll3 12:33 Arm band placed on right wrist. ll3 12:34 Patient has correct armband on for positive identification. Placed in gown. Bed in low mh5 position. Call light in reach. Side rails up X 1. Adult w/ patient. Warm blanket given. rock singer on. Pulse ox on. NIBP on. 12:35 EKG done, by ED staff, reviewed by Bjorn Nuno MD. mh5 12:44 CT Stroke Brain w/o Contrast In Process Unspecified. EDMS 13:00 Initial lab(s) drawn, by me, sent to lab. Maintain EMS IV. Dressing intact. Good blood ll3 return noted. Site clean \T\ dry. Gauge \T\ site: 20 LFA. 13:53 XRAY Chest (1 view) In Process Unspecified. EDMS 14:06 Brain Wo Cont In Process Unspecified. EDMS 15:19 Shahnaz Rao MD is Hospitalizing Provider. foster 17:16 No provider procedures requiring assistance completed. Patient admitted, IV remains in jl7 place. intact, No redness/swelling at site. Administered Medications: 13:00 Drug: NS 0.9% 1000 ml Route: IV; Rate: 1 bolus; Site: left forearm; ll3 14:00 Follow up: Response: No adverse reaction; IV Status: Completed infusion; IV Intake: jl7 1000ml 13:00 Drug: foLIC Acid 1 mg Route: IVPB; Site: left forearm; ll3 13:02 Follow up: Response: No adverse reaction; IV Status: Completed infusion jl7 13:00 Drug: Pepcid (famotidine) 20 mg Route: IVP; Site: left forearm; ll3 17:21 Follow up: Response: No adverse reaction jl7 13:26 Drug: morphine 4 mg Route: IVP; Site: left forearm; jl7 13:40 Follow up: Response: No adverse reaction; Pain is decreased jl7 13:26 Drug: Zofran (Ondansetron) 4 mg Route: IVP; Site: left forearm; jl7 13:40 Follow up: Response: No adverse reaction jl7 16:44 Drug: Aspirin 162 mg Route: PO; jl7 17:22 Follow up: Response: No adverse reaction jl7 16:45 Drug: morphine 4 mg Route: IVP; Site: left forearm; jl7 20:16 Follow up: Response: No adverse reaction bs2 19:50 Drug: Norvasc (amlodipine) 5 mg Route: PO; bs2 19:50 Drug: morphine 4 mg Route: IVP; Site: left forearm; bs2 19:50 Drug: Zofran (Ondansetron) 4 mg Route: IVP; Site: left forearm; bs2 Intake: 14:00 IV: 1000ml; Total: 1000ml. jl7 Outcome: 15:22 Decision to Hospitalize by Provider. foster 22:13 Admitted to Med/surg accompanied by tech, room 229. bs2 22:13 Condition: improved 22:13 Instructed on the need for admit. 22:15 Patient left the ED. mw2 NIH Stroke Scale - NIH Stroke Score Date: 08/17/2021 Time: 12:15 Total Score = 3 1a. Level of Consciousness (LOC) - 0(Alert) 1b. Level of Consciousness (LOC) (Month \T\ Age) - 0(Both) 1c. LOC Commands (Open \T\ Closes Eyes/Best Worker) - 0(Both) 2. Best Gaze (Lateral Gaze Paresis) - 2(Forced deviation) 3. Visual Field Loss - 0(No visual loss) 4. Facial Palsy - 0(Normal) 5a. Left Arm: Motor (10-second hold) - 0(No drift) 5b. Right Arm: Motor (10-second hold) - 0(No drift) 6a. Left Leg: Motor (5-second hold - always test supine) - 1(Drift) 6b. Right Leg: Motor (5-second hold - always test supine) - 0(No drift) 7. Limb Ataxia (finger/nose \T\ heel/armstrong - test with eyes open) - 0(Absent) 8. Sensory Loss (pinprick arms/legs/face) - 0(Normal) 9. Best Language: Aphasia (description/naming/reading) - 0(No aphasia) 10. Dysarthria (speech clarity - read or repeat words) - 0(Normal) 11. Extinction and Inattention (visual/tactile/auditory/spatial/personal) - 0(No abnormality) Initials: jl7 NIH Stroke Scale - NIH Stroke Score Date: 08/17/2021 Time: 14:52 Total Score = 9 1a. Level of Consciousness (LOC) - 0(Alert) 1b. Level of Consciousness (LOC) (Month \T\ Age) - 0(Both) 1c. LOC Commands (Open \T\ Closes Eyes/Best Worker) - 0(Both) 2. Best Gaze (Lateral Gaze Paresis) - 2(Forced deviation) 3. Visual Field Loss - 0(No visual loss) 4. Facial Palsy - 0(Normal) 5a. Left Arm: Motor (10-second hold) - 1(Drift) 5b. Right Arm: Motor (10-second hold) - 0(No drift) 6a. Left Leg: Motor (5-second hold - always test supine) - 1(Drift) 6b. Right Leg: Motor (5-second hold - always test supine) - 0(No drift) 7. Limb Ataxia (finger/nose \T\ heel/armstrong - test with eyes open) - 2(Present in two limbs) 8. Sensory Loss (pinprick arms/legs/face) - 1(Mild to moderate loss) 9. Best Language: Aphasia (description/naming/reading) - 1(Mild to moderate aphasia) 10. Dysarthria (speech clarity - read or repeat words) - 1(Mild to Moderate) 11. Extinction and Inattention (visual/tactile/auditory/spatial/personal) - 0(No abnormality) Initials: foster Signatures: Dispatcher [employer] Bjorn Page MD MD cha Martinez, Maria 5 Sherman Brown, RN RN jl7 Ines Salgado 2 Angelina Horvath RN RN bs2 Joseph Celaya RN RN jt3 Kaylen Peterson RN RN ll3
--- NOTE | 2021-08-17 15:23 | EDPHYS ---
Physician Documentation [facility] Name: Gregory Dumont Age: 61 yrs Sex: Male : 1960 Arrival Date: 08/17/2021 Time: 12:11 Bed 5 Private MD: ED Physician Bjorn Nuno HPI: 08/17 14:52 This 61 yrs old Male presents to ER via EMS with complaints of Poss TIA. foster 14:52 The patient is experiencing double vision, caused by an unknown mechanism. Onset: The foster symptoms/episode began/occurred at 08:00. Duration: the symptoms are continuous. Aggravated by nothing. Alleviated by nothing. Associated signs and symptoms: Pertinent positives: dizziness. The patient's problem is reported as paresthesias, in left upper extremity, in left lower extremity, in left side of face, weakness, in the left upper extremity, in the left lower extremity, in the left side of face. Onset: The symptoms/episode began/occurred 1 week(s) ago. Duration: The episode is continuous, the symptoms became worse 7 hour(s) ago. Context: the episode(s) was witnessed, by no one, occurred at home, occurred while the patient was at rest. The symptoms are alleviated by nothing. The symptoms are aggravated by nothing. The patient presents to the emergency department with weakness of the left lower extremity, right lower extremity, left side of the face, paresthesias of the left lower extremity, left upper extremity, left side of the face, that is mild, a vision problem, diplopia, left eye wont cross midline. Historical: - Allergies: 12:33 No Known Allergies; ll3 - Home Meds: 22:12 gabapentin 400 mg Oral cap [Active]; bs2 - PMHx: 12:33 Hypertensive disorder; strokes x 3; ll3 - PSHx: 12:33 knee replacements; ll3 - Immunization history:: Client reports receiving the 2nd dose of the Covid vaccine, moderna. - Social history:: Smoking status: Patient reports the use of cigarette tobacco products, cigars. - Family history:: not pertinent. ROS: 14:52 Constitutional: Negative for fever, chills, and weight loss, ENT: Negative for injury, foster pain, and discharge, Neck: Negative for injury, pain, and swelling, Cardiovascular: Negative for chest pain, palpitations, and edema, Respiratory: Negative for shortness of breath, cough, wheezing, and pleuritic chest pain, Abdomen/GI: Negative for abdominal pain, nausea, vomiting, diarrhea, and constipation, Back: Negative for injury and pain, : Negative for injury, bleeding, discharge, and swelling, Skin: Negative for injury, rash, and discoloration, Psych: Negative for depression, anxiety, suicide ideation, homicidal ideation, and hallucinations, Allergy/Immunology: Negative for hives, rash, and allergies, Endocrine: Negative for neck swelling, polydipsia, polyuria, polyphagia, and marked weight changes, Hematologic/Lymphatic: Negative for swollen nodes, abnormal bleeding, and unusual bruising. 14:52 Eyes: Positive for diplopia, left eye wont cross midline. 14:52 ENT: Positive for ear pain. 14:52 Neck: Negative for injury or acute deformity, mass, pain with movement, pain at rest, stiffness, tenderness. 14:52 Cardiovascular: Negative for chest pain, edema, palpitations. 14:52 Neuro: Positive for gait disturbance, speech changes, tingling, weakness, of the left arm and left leg. Exam: 14:52 Radiologist reports: no changes or extension, old changes foster 14:52 Constitutional: This is a well developed, well nourished patient who is awake, alert, and in no acute distress. Head/Face: Normocephalic, atraumatic. ENT: Nares patent. No nasal discharge, no septal abnormalities noted. Tympanic membranes are normal and external auditory canals are clear. Oropharynx with no redness, swelling, or masses, exudates, or evidence of obstruction, uvula midline. Mucous membranes moist. Neck: Trachea midline, no thyromegaly or masses palpated, and no cervical lymphadenopathy. Supple, full range of motion without nuchal rigidity, or vertebral point tenderness. No Meningismus. Chest/axilla: Normal chest wall appearance and motion. Nontender with no deformity. No lesions are appreciated. Cardiovascular: Regular rate and rhythm with a normal S1 and S2. No gallops, murmurs, or rubs. Normal PMI, no JVD. No pulse deficits. Respiratory: Lungs have equal breath sounds bilaterally, clear to auscultation and percussion. No rales, rhonchi or wheezes noted. No increased work of breathing, no retractions or nasal flaring. Abdomen/GI: Soft, non-tender, with normal bowel sounds. No distension or tympany. No guarding or rebound. No evidence of tenderness throughout. Back: No spinal tenderness. No costovertebral tenderness. Full range of motion. Male : Normal genitalia with no discharge or lesions. Skin: Warm, dry with normal turgor. Normal color with no rashes, no lesions, and no evidence of cellulitis. MS/ Extremity: Pulses equal, no cyanosis. Neurovascular intact. Full, normal range of motion. Psych: Awake, alert, with orientation to person, place and time. Behavior, mood, and affect are within normal limits. 14:52 Eyes: Periorbital structures: appear normal, no acute changes, Pupils: no acute changes, equal, round, and reactive to light and accomodation, Extraocular movements: intact throughout, Conjunctiva: normal, no acute changes, Corneas: are normal, no acute changes, no evidence of abrasion, no foreign body. 14:52 Neuro: Orientation: is normal, appropriate for stated age, no acute changes, Mentation: is normal, appropriate for stated age, no acute changes, Memory: is normal, appropriate for stated age, no acute changes, Cranial nerves: is grossly normal based on the patient's age, no acute changes, Speech is slurred, Motor: strength is 4/5 in the left arm and left leg, Sensation: light touch is decreased in the left arm and left leg. 14:52 Psych: Exam negative for acute changes, exam not indicated, Behavior/mood is pleasant, cooperative, Affect is calm, Oriented to person, place, time, Patient has no thoughts/intents to harm self or others. Judgement / Insight is normal. Memory is normal. Delusions/hallucinations are not present. 15:18 ECG was reviewed by the Attending Physician. foster Vital Signs: 12:26 BP 148 / 99; Pulse 69; Resp 14; Temp 97.7; Pulse Ox 96% on R/A; Weight 86.18 kg; Height ll3 5 ft. 11 in. (180.34 cm); Pain 10/10; 12:45 BP 150 / 91; Pulse 70; Resp 18; Pulse Ox 96% ; jl7 13:17 BP 139 / 94; Pulse 64; Resp 20; Pulse Ox 99% ; ll3 14:00 BP 158 / 85; Pulse 65; Resp 19; Pulse Ox 98% ; jl7 16:00 BP 167 / 97; Pulse 67; Resp 15; Pulse Ox 96% ; jl7 16:45 BP 154 / 96; Pulse 76; Resp 19; Pulse Ox 97% ; jl7 19:15 BP 186 / 111; Pulse 80; Resp 17; Pulse Ox 96% on R/A; jt3 22:13 BP 166 / 93; Pulse 75; Resp 17; Temp 98.6; Pulse Ox 95% ; Pain 9/10; bs2 12:26 Body Mass Index 26.50 (86.18 kg, 180.34 cm) ll3 NIH Stroke Scale Scores: 12:15 NIHSS Score: 3 jl7 14:52 NIHSS Score: 9 foster MDM: 12:29 Patient medically screened. [facility] 15:08 Differential diagnosis: CVA, TIA, Dementia, paralysis. Data reviewed: vital signs, [facility] nurses notes, lab test result(s), EKG, radiologic studies, CT scan, plain films. Data interpreted: quality control inspector heading: rate is 64 beats/min, rhythm is regular, Pulse oximetry: on room air is 99 %. Test interpretation: by ED physician or midlevel provider: ECG, plain radiologic studies. Counseling: I had a detailed discussion with the patient and/or guardian regarding: the historical points, exam findings, and any diagnostic results supporting the discharge/admit diagnosis, lab results, radiology results, the need for further work-up and treatment in the hospital. 08/17 12:31 Order name: Basic Metabolic Panel; Complete Time: 14:20 [facility] 08/17 12:31 Order name: CBC with Diff; Complete Time: 14:20 [facility] 08/17 12:31 Order name: LFT's; Complete Time: 14:20 [facility] 08/17 12:31 Order name: Magnesium; Complete Time: 14:20 [facility] 08/17 12:31 Order name: NT PRO-BNP; Complete Time: 14:20 [facility] 08/17 12:31 Order name: PT-INR; Complete Time: 14:20 [facility] 08/17 12:31 Order name: Troponin (emerg Dept Use Only); Complete Time: 14:20 [facility] 08/17 12:31 Order name: XRAY Chest (1 view); Complete Time: 14:20 [facility] 08/17 12:31 Order name: CRP; Complete Time: 14:20 [facility] 08/17 12:31 Order name: Sed Rate; Complete Time: 14:20 [facility] 08/17 12:31 Order name: CT Stroke Brain w/o Contrast; Complete Time: 14:20 [facility] 08/17 16:26 Order name: SARS-COV-2 RT PCR EDME 08/17 12:31 Order name: EKG; Complete Time: 12:31 [facility] 08/17 14:05 Order name: Brain Wo Cont; Complete Time: 14:46 [facility] 08/17 16:51 Order name: Physical Therapy Consult [facility] 08/17 16:51 Order name: NPO EDME 08/17 16:51 Order name: Echo with Doppler EDME 08/17 16:53 Order name: Chest Pa And Lat (2 Views) EDME 08/17 12:31 Order name: Cardiac monitoring; Complete Time: 12:34 [facility] 08/17 12:31 Order name: EKG - Nurse/Tech; Complete Time: 12:34 [facility] 08/17 12:31 Order name: IV Saline Lock; Complete Time: 12:58 [facility] 08/17 12:31 Order name: Labs collected and sent; Complete Time: 12:58 [facility] 08/17 12:31 Order name: O2 Per Protocol; Complete Time: 12:58 [facility] 08/17 12:31 Order name: O2 Sat Monitoring; Complete Time: 12:58 [facility] 08/17 16:51 Order name: EKG Electrocardiogram [facility] 08/17 16:52 Order name: Speech Therapy Consult EDME EC:18 Rate is 69 beats/min. Rhythm is regular. QRS [place] is Normal. [place] interval is normal. QRS foster interval is normal. QT interval is normal. No Q waves. T waves are Normal. No ST changes noted. Clinical impression: Normal ECG and No evidence of ischemia. Interpreted by me. Reviewed by me. Administered Medications: 13:00 Drug: NS 0.9% 1000 ml Route: IV; Rate: 1 bolus; Site: left forearm; ll3 14:00 Follow up: Response: No adverse reaction; IV Status: Completed infusion; IV Intake: jl7 1000ml 13:00 Drug: foLIC Acid 1 mg Route: IVPB; Site: left forearm; ll3 13:02 Follow up: Response: No adverse reaction; IV Status: Completed infusion jl7 13:00 Drug: Pepcid (famotidine) 20 mg Route: IVP; Site: left forearm; ll3 17:21 Follow up: Response: No adverse reaction jl7 13:26 Drug: morphine 4 mg Route: IVP; Site: left forearm; jl7 13:40 Follow up: Response: No adverse reaction; Pain is decreased jl7 13:26 Drug: Zofran (Ondansetron) 4 mg Route: IVP; Site: left forearm; jl7 13:40 Follow up: Response: No adverse reaction jl7 16:44 Drug: Aspirin 162 mg Route: PO; jl7 17:22 Follow up: Response: No adverse reaction jl7 16:45 Drug: morphine 4 mg Route: IVP; Site: left forearm; jl7 20:16 Follow up: Response: No adverse reaction bs2 19:50 Drug: Norvasc (amlodipine) 5 mg Route: PO; bs2 19:50 Drug: morphine 4 mg Route: IVP; Site: left forearm; bs2 19:50 Drug: Zofran (Ondansetron) 4 mg Route: IVP; Site: left forearm; bs2 Disposition Summary: 08/17/21 15:22 Hospitalization Ordered Hospitalization Status: Inpatient Admission foster Provider: Shahnaz Rao cha Condition: Fair foster Problem: new foster Symptoms: have improved foster Bed/Room Type: Standard foster Location: Telemetry/MedSurg (Inpatient)(08/17/21 17:45) bd Room Assignment: 229(08/17/21 17:45) bd Diagnosis - Third [oculomotor] nerve palsy, left eye foster - Cerebral infarction, unspecified foster - Essential (primary) hypertension foster - Tobacco abuse counseling foster - Tobacco use foster Forms: - Medication Reconciliation Form foster - SBAR form foster NIH Stroke Scale - NIH Stroke Score Date: 08/17/2021 Time: 12:15 Total Score = 3 1a. Level of Consciousness (LOC) - 0(Alert) 1b. Level of Consciousness (LOC) (Month \T\ Age) - 0(Both) 1c. LOC Commands (Open \T\ Closes Eyes/Professor Of Oceanography) - 0(Both) 2. Best Gaze (Lateral Gaze Paresis) - 2(Forced deviation) 3. Visual Field Loss - 0(No visual loss) 4. Facial Palsy - 0(Normal) 5a. Left Arm: Motor (10-second hold) - 0(No drift) 5b. Right Arm: Motor (10-second hold) - 0(No drift) 6a. Left Leg: Motor (5-second hold - always test supine) - 1(Drift) 6b. Right Leg: Motor (5-second hold - always test supine) - 0(No drift) 7. Limb Ataxia (finger/nose \T\ heel/armstrong - test with eyes open) - 0(Absent) 8. Sensory Loss (pinprick arms/legs/face) - 0(Normal) 9. Best Language: Aphasia (description/naming/reading) - 0(No aphasia) 10. Dysarthria (speech clarity - read or repeat words) - 0(Normal) 11. Extinction and Inattention (visual/tactile/auditory/spatial/personal) - 0(No abnormality) Initials: jl7 NIH Stroke Scale - NIH Stroke Score Date: 08/17/2021 Time: 14:52 Total Score = 9 1a. Level of Consciousness (LOC) - 0(Alert) 1b. Level of Consciousness (LOC) (Month \T\ Age) - 0(Both) 1c. LOC Commands (Open \T\ Closes Eyes/Professor Of Oceanography) - 0(Both) 2. Best Gaze (Lateral Gaze Paresis) - 2(Forced deviation) 3. Visual Field Loss - 0(No visual loss) 4. Facial Palsy - 0(Normal) 5a. Left Arm: Motor (10-second hold) - 1(Drift) 5b. Right Arm: Motor (10-second hold) - 0(No drift) 6a. Left Leg: Motor (5-second hold - always test supine) - 1(Drift) 6b. Right Leg: Motor (5-second hold - always test supine) - 0(No drift) 7. Limb Ataxia (finger/nose \T\ heel/armstrong - test with eyes open) - 2(Present in two limbs) 8. Sensory Loss (pinprick arms/legs/face) - 1(Mild to moderate loss) 9. Best Language: Aphasia (description/naming/reading) - 1(Mild to moderate aphasia) 10. Dysarthria (speech clarity - read or repeat words) - 1(Mild to Moderate) 11. Extinction and Inattention (visual/tactile/auditory/spatial/personal) - 0(No abnormality) Initials: foster Signatures: Dispatcher [employer] Khushi Gallardo Corey, MD MD cha Leal, Jahala, RN RN jl7 Angelina Horvath RN RN bs2 Kaylen Peterson, RN RN ll3 Corrections: (The following items were deleted from the chart) 14:05 12:31 MR STROKE PROTOCOL+MRI.RAD.BRZ ordered. EDMS EDMS 16:26 15:27 CORONAVIRUS+MR.LAB.BRZ ordered. EDMS EDMS 17:15 15:22 Telemetry/MedSurg (Inpatient) foster bd 17:15 15:22 foster bd 17:45 17:15 BR ER HOLD bd bd 17:45 17:15 ERHOLD- bd bd
[2021-08-17] MEDS ORDERED: ASPIRIN EC 81 MG TAB PO ONE (15:44)
[2021-08-17] MEDS ORDERED: ONDANSETRON 4 MG/2 ML VIAL IV PRN (16:47)
[2021-08-17] MEDS: NA CHLORIDE 0.9% 1,000 ML IV SCH (17:00)
[2021-08-17] MEDS: ENOXAPARIN 40 MG/0.4 ML SQ SCH (18:00)
[2021-08-17] MEDS ORDERED: AMLODIPINE 5 MG TAB ONE (20:49)
[2021-08-17] MEDS ORDERED: ATORVASTATIN 20 MG TAB PO SCH (21:00)
[2021-08-17] MEDS ORDERED: ATORVASTATIN 40 MG TAB PO SCH (21:00)
[2021-08-17] MEDS ORDERED: HYDRALAZINE HCL 20 MG/ML VIAL IV PRN (21:16)
[2021-08-17] MEDS: CYCLOBENZAPRINE 10 MG TAB PO PRN (22:05)
[2021-08-17] MEDS ORDERED: GABAPENTIN 300 MG CAP ONE (22:31)
[2021-08-17] MEDS ORDERED: GABAPENTIN 400 MG CAP PO SCH (23:00)
[2021-08-18 00:14] VITALS: O2SAT 97; BMI 26.4
[2021-08-18] MEDS: ACETAMINOPHEN 500 MG TAB PO PRN ×2 (04:06→08:36)
[2021-08-18 06:17] LABS: Absolute Lymphocytes (CBC) 1.2 K/uL (0.7-4.9); Basophils % 0.5 % (0-1.3); Hematocrit 39.8 % (39.6-49.0); Lymphocytes % 11.5 % (15.3-44.8); MPV 8.2 fL (7.6-11.3); RBC Red Blood Cell Count 4.61 M/uL (4.33-5.43)
[2021-08-18 06:42] LABS: Albumin 2.9 g/dL (3.4-5.0); Bilirubin Total 0.3 mg/dL (0.2-1.0); Magnesium 1.9 mg/dL (1.8-2.4); Phosphorus 3.2 mg/dL (2.5-4.9); Potassium 4.2 mmol/L (3.5-5.1); Protein, Total 6.3 g/dL (6.4-8.2)
[2021-08-18] MEDS: ENOXAPARIN 40 MG/0.4 ML SQ SCH (08:36)
[2021-08-18] MEDS ORDERED: ASPIRIN EC 81 MG TAB PO SCH (09:00)
[2021-08-18] MEDS ORDERED: CLOPIDOGREL 75 MG TABLET PO SCH (09:00)
[2021-08-18] MEDS: CYCLOBENZAPRINE 10 MG TAB PO PRN (10:01)
[2021-08-18] MEDS ORDERED: MORPHINE 2 MG/ML SYR IV PRN (10:57)
--- NOTE | 2021-08-18 11:49 | EKG ---
Test Date: 2021-08-17 Test Time: 12:33:12 Aircraft Maintenance Instructor: ANA MEASUREMENT RESULTS: Intervals: Rate: 69 MT: 132 QRSD: 96 QT: 440 QTc: 471 [place]: P: 54 MT: 132 QRS: 74 T: 68 INTERPRETIVE STATEMENTS: Normal sinus rhythm Normal ECG Compared to ECG 08/10/2021 18:23:07 No significant changes Electronically Signed On 08-18-21 11:46:19 CDT by Hoang Burns
[2021-08-18 12:24] VITALS: BP 154/78; TEMP 96.9
[2021-08-18] MEDS: NA CHLORIDE 0.9% 1,000 ML IV SCH (13:50)
--- NOTE | 2021-08-18 16:15 | P.HP ---
Certification for Inpatient Patient admitted to: Inpatient With expected LOS: >2 Midnights Patient will require the following post-hospital care: None Practitioner: I am a practitioner with admitting privileges, knowledge of patient current condition, hospital course, and medical plan of care. Services: Services provided to patient in accordance with Admission requirements found in Title 42 Section 412.3 of the Code of Federal Regulations Patient History Date of Service: 08/17/21 Reason for admission: Acute CVA History of Present Illness: Pt is a 61yo presents with diplopia and dizziness; patient presents with weakness of the left lower extremity and right lower extremity; paresthesia of the left lower extremity, left upper extremity, left side of the face and diplopia, and the left eye won't cross midline. Patient came into the ER for further work-up. Patient's MRI is pending. Concern for patient with having posterior circulation stroke. Patient be admitted for further treatment. Allergies No Known Allergies Allergy (Verified 08/19/19 17:27) Home Medications: Cyclobenzaprine [Flexeril*] 1 tab PO DAILY 10/24/19 Jenera Carbonate [Jenera Carbonate ER] 1 tab PO BID 10/24/19 Memantine HCl 1 tab PO BID 10/24/19 Mirtazapine 30 mg PO BEDTIME 10/24/19 Temazepam [Restoril*] 15 mg PO BEDTIME PRN 10/24/19 Venlafaxine HCl [Effexor Xr] 1 cap PO DAILY 10/24/19 Codeine/APAP [Tylenol #3*] 1 tab PO Q6HP PRN #30 tab 10/30/19 Atorvastatin Calcium [Lipitor] 40 mg PO BEDTIME 30 Days #30 tab 08/12/21 Folic Acid 1 mg PO DAILY 30 Days #30 tablet 08/12/21 Aspirin [Aspirin EC 81 MG] 81 mg PO DAILY #30 tablet 08/18/21 Clopidogrel Bisulfate [Plavix*] 75 mg PO DAILY #30 tablet 08/18/21 Gabapentin [Neurontin*] 400 mg PO BEDTIME #30 cap 08/18/21 - Past Medical/Surgical History Has patient received pneumonia vaccine in the past: No Diabetic: No -: Bipolar disorder -: Hypoglycemia -: ADHD -: Osteoarthritis of the knee -: Nephrolithiasis -: Right renal cyst -: CVA 3 times -: Former tobacco use -: Hepatitis-C -: Depression -: Irregular HR -: Rt knee replacement 08/09/16 -: Lt knee replacement Psychosocial/ Personal History: He is , has 2 children, he does not work. - Family History Mother Medical History: Other (see notes) Notes: Hypoglycemia - Social History Smoking Status: Former smoker Alcohol use: No CD- Drugs: No Caffeine use: Yes Place of Residence: Home Review of Systems 10-point ROS is otherwise unremarkable Physical Examination - Vital Signs Temperature: 96.9 F Blood Pressure: 154/78 Pulse: 76 Respirations: 16 Pulse Ox (%): 95 - Physical Exam General: Alert, In no apparent distress, Oriented x3 HEENT: Atraumatic, PERRLA, Mucous membr. moist/pink, EOMI, Sclerae nonicteric Neck: Supple, 2+ carotid pulse no bruit, No LAD, Without JVD or thyroid abnormality Respiratory: Clear to auscultation bilaterally, Normal air movement Cardiovascular: Regular rate/rhythm, Normal S1 S2 Gastrointestinal: Normal bowel sounds, No tenderness Musculoskeletal: No tenderness Integumentary: No rashes Neurological: Normal speech, Normal tone, Normal affect, Abnormal gait, Abnormal strength, Abnormal sensation Lymphatics: No axilla or inguinal lymphadenopathy Assessment & Plan - Problems (Diagnosis) (1) Acute CVA (cerebrovascular accident) Current Visit: Yes Status: Acute (2) Adult ADHD Onset Date: 08/23/16 Current Visit: No Status: Chronic (3) Bipolar disorder Onset Date: 05/17/17 Current Visit: No Status: Chronic Qualifiers: Active/Remission status: remission status unspecified Qualified Code(s): F31.9 - Bipolar disorder, unspecified (4) Hepatitis C Onset Date: 05/17/17 Current Visit: No Status: Chronic Qualifiers: Viral hepatitis chronicity: unspecified Hepatic coma status: without hepatic coma Qualified Code(s): B19.20 - Unspecified viral hepatitis C without hepatic coma (5) History of right knee joint replacement Current Visit: No Status: Chronic (6) Nephrolithiasis Onset Date: 08/23/16 Current Visit: No Status: Chronic - Plan 1. Physical therapy evaluation 2. Speech therapy evaluation 3. Anti-platelet therapy and statin therapy 4. Lipid profile in the morning 5. MRI of the brain 6. Physically patient is doing well and may benefit more from outpatient physical therapy and inpatient rehab 7. Neurology consultation 8. Permissive hypertension and gradual blood pressure control 9. Neuro checks every 4 hr 10. GI and DVT prophylaxis - Advance Directives Does patient have a Living Will: No Does patient have a Durable POA for Healthcare: No - Code Status/Comfort Care Code Status Assessed: Yes Code Status: Full Code Critical Care: No Time Spent Managing PTS Care (In Minutes): 45
[2021-08-18] MEDS ORDERED: GABAPENTIN 300 MG CAP PO SCH (21:00)
== END 2021-08-18 16:11 | disposition home or self-care (01) | DRG 66 ==
LOC: ER 12:10 → ERHOLD 16:55 → 2ND 19:26
PROVIDERS: ADMIT Hospitalist; ATTEND Hospitalist
DX: I63.9 Cerebral infarction, unspecified (principal); I10 Essential (primary) hypertension; H53.2 Diplopia; H49.02 Third [oculomotor] nerve palsy, left eye; M19.90 Unspecified osteoarthritis, unspecified site; N20.0 Calculus of kidney; F31.9 Bipolar disorder, unspecified; F90.9 Attention-deficit hyperactivity disorder, unspecified type; F17.210 Nicotine dependence, cigarettes, uncomplicated; B19.20 Unspecified viral hepatitis C without hepatic coma; R20.2 Paresthesia of skin; R42 Dizziness and giddiness; R29.703 NIHSS score 3; Z79.899 Other long term (current) drug therapy; Z96.659 Presence of unspecified artificial knee joint; Z86.73 Personal history of transient ischemic attack (TIA), and cerebral infarction without residual deficits; Z79.82 Long term (current) use of aspirin; Z96.653 Presence of artificial knee joint, bilateral; Z79.02 Long term (current) use of antithrombotics/antiplatelets; Z20.822 Contact with and (suspected) exposure to COVID-19
CPT/HCPCS: 36415; 70450; 70551; 71045; 80048; 80053; 80061; 80076; 83735; 83880; 84100; 84484; 85025; 85610; 85652; 86140; 93005; 96361; 96374; 96375; 99285; J0360; J1650; J2405; J7030; U0003

== ENCOUNTER 2021-08-29 14:27 | Emergency (ER) | payer OTHER ==
[2021-08-29 15:39] LABS: Protime INR 0.86
[2021-08-29 15:41] LABS: Absolute Lymphocytes (CBC) 2.2 K/uL (0.7-4.9); Basophils % 0.5 % (0-1.3); Hematocrit 40.4 % (39.6-49.0); Lymphocytes % 16.9 % (15.3-44.8); MPV 8.3 fL (7.6-11.3); RBC Red Blood Cell Count 4.67 M/uL (4.33-5.43)
[2021-08-29 15:52] LABS: ALT/SGPT 21 U/L (12-78); AST/SGOT 10 U/L (15-37); Albumin 3.3 g/dL (3.4-5.0); Alkaline Phosphatase 91 U/L (45-117); BUN Blood Urea Nitrogen 4 mg/dL (7-18); Bicarbonate 22 mmol/L (21-32); Bilirubin Direct < 0.1 mg/dL (0-0.2); Bilirubin Total 0.2 mg/dL (0.2-1.0); Glucose Level 181 mg/dL (74-106); Magnesium 1.9 mg/dL (1.8-2.4); NT PRO-BNP 75 pg/mL (<125); Potassium 3.6 mmol/L (3.5-5.1); Protein, Total 6.8 g/dL (6.4-8.2); Sodium Level 141 mmol/L (136-145); Troponin (Emerg Dept Use Only) < 0.02 ng/mL (0.0-0.045)
[2021-08-29] MEDS ORDERED: MORPHINE 4 MG/ML SYR ONE (15:55)
[2021-08-29] MEDS ORDERED: ONDANSETRON 4 MG/2 ML VIAL ONE (15:55)
--- NOTE | 2021-08-29 16:25 | RAD REPORT ---
EXAM DESCRIPTION: CT - Head Brain Wo Cont - 08/29/2021 4:10 pm CLINICAL HISTORY: DIZZINESS COMPARISON: Ct Stroke Brain Wo Cont dated 08/17/2021; Brain Wo Cont dated 08/17/2021 TECHNIQUE: Axial 5 mm thick images of the head were obtained without IV contrast. All CT scans are performed using dose optimization technique as appropriate and may include automated exposure control or mA/KV adjustment according to patient size. FINDINGS: No intracranial hemorrhage, mass, edema or shift of mid-line structures. No acute cortical based infarction identified. No cortical edema for sulcal effacement identified. Approximately 10 mm cystic area posterior right thalamus is possibly a prominent perivascular space or old CVA. Patient has areas of diminished attenuation in the medial left thalamus, each basal ganglia and scattered in the cerebral white matter. These are not substantially different from prior imaging. Mastoid air cells and visualized portions of the paranasal sinuses are clear. No acute bony findings. IMPRESSION: No intracranial hemorrhage identified. No mass, edema or midline shift. Patient has advanced for age chronic ischemic changes in the white matter, basal ganglia and thalamus tissues. Pattern is not substantially different from comparison. Severity this chronic pattern coul d easily mask areas of nonhemorrhagic acute CVA.
--- NOTE | 2021-08-29 16:38 | RAD REPORT ---
EXAM DESCRIPTION: RAD - Chest Single View - 08/29/2021 3:33 pm CLINICAL HISTORY: MALAISE COMPARISON: Portable August 17 TECHNIQUE: AP portable chest image was obtained 08/29/2021 3:33 pm . FINDINGS: Lungs are clear. Heart and vasculature are normal. No measurable pleural effusion and no p neumothorax. No acute bony abnormality seen. No acute aortic findings suspected. IMPRESSION: No acute cardiopulmonary process. No significant change from comparison study.
[2021-08-29] MEDS ORDERED: NA CHLORIDE 0.9% 1,000 ML ONE (17:28)
--- NOTE | 2021-08-29 18:41 | ER ---
Nurse's Notes [facility] Name: Gregory Dumont Age: 61 yrs Sex: Male : 1960 Arrival Date: 08/29/2021 Time: 14:27 Bed 19 Private MD: Diagnosis: Chest pain, unspecified;Orthostatic hypotension;Dehydration Presentation: 08/29 14:49 Chief complaint: Patient states: "I was walking to the kitchen and fell onto the floor vg1 and was having a stroke." Pt stated pt was on the floor for about five minutes. Denies hitting head. Incident happened around 0900. Pt states that is still having dizziness, weakness, and chest pain. Coronavirus screen: Vaccine status: Patient reports receiving the 2nd dose of the covid vaccine. Client denies travel out of the [place] in the last 14 days. Ebola Screen: Patient negative for fever greater than or equal to 101.5 degrees Fahrenheit, and additional compatible Ebola Virus Disease symptoms. Initial Sepsis Screen: Does the patient meet any 2 criteria? No. Patient's initial sepsis screen is negative. Does the patient have a suspected source of infection? No. Patient's initial sepsis screen is negative. 14:49 Method Of Arrival: Wheelchair vg1 15:02 Risk Assessment: Do you want to hurt yourself or someone else? Patient reports no vg1 desire to harm self or others. Onset of symptoms was August 29, 2021. 15:02 Acuity: MARION 3 vg1 Triage Assessment: 15:02 General: Appears in no apparent distress. comfortable, Behavior is calm, cooperative. vg1 Pain: Complains of pain in chest Pain currently is 10 out of 10 on a pain scale. Neuro: Level of Consciousness is awake, alert, obeys commands, Oriented to person, place, time, situation, [place] are equal bilaterally Moves all extremities. Gait is unsteady, Speech is normal, Facial symmetry appears normal. Historical: - Allergies: 15:02 No Known Allergies; vg1 - Home Meds: 15:02 gabapentin 400 mg Oral cap [Active]; vg1 - PMHx: 15:02 Hypertensive disorder; strokes x 3; Bipolar disorder; ADHD; Anxiety; vg1 - Immunization history:: Client reports receiving the 2nd dose of the Covid vaccine. - Social history:: Smoking status: Patient reports the use of cigarette tobacco products, smokes one pack cigarettes per day. Screenin:04 Abuse screen: Denies threats or abuse. Nutritional screening: No deficits noted. ll1 Tuberculosis screening: No symptoms or risk factors identified. Fall Risk Fall in past 12 months (25 points). IV access (20 points). Gait- Weak (10 pts.). Total Mcdaniel Fall Scale indicates High Risk Score (45 or more points). Fall prevention measures have been instituted. Side Rails Up X 2 Placed Close to Nursing Station Frequent Obs/Assessments Occuring Family Present and informed to notify staff if the need to leave the bedside As available patient and family educated on Fall Prevention Program and Strategies. Assessment: 16:00 Reassessment: No changes from previously documented assessment. Patient and/or family ll1 updated on plan of care and expected duration. Pain level reassessed. Patient is alert, oriented x 3, equal unlabored respirations, skin warm/dry/pink. 17:00 Reassessment: No changes from previously documented assessment. Patient and/or family ll1 updated on plan of care and expected duration. Pain level reassessed. Patient is alert, oriented x 3, equal unlabored respirations, skin warm/dry/pink. 18:00 Reassessment: No changes from previously documented assessment. Patient and/or family ll1 updated on plan of care and expected duration. Pain level reassessed. Patient is alert, oriented x 3, equal unlabored respirations, skin warm/dry/pink. 19:00 Reassessment: No changes from previously documented assessment. Patient and/or family ll1 updated on plan of care and expected duration. Pain level reassessed. Patient is alert, oriented x 3, equal unlabored respirations, skin warm/dry/pink. Vital Signs: 14:49 BP 99 / 74; Pulse 99; Resp 18; Temp 99.1; Pulse Ox 97% ; Weight 84.37 kg; Height 5 ft. vg1 11 in. (180.34 cm); Pain 10/10; 16:54 BP 131 / 86 RA Supine; Pulse 84; Resp 16; Pulse Ox 95% on R/A; dh3 16:56 BP 121 / 92 RA Sitting; Pulse 87; Resp 16; Pulse Ox 96% on R/A; dh3 16:58 BP 113 / 74; Pulse 91; Resp 17; Pulse Ox 95% on R/A; dh3 19:04 BP 149 / 100; Pulse 89; Resp 17; Pulse Ox 95% ; ll1 14:49 Body Mass Index 25.94 (84.37 kg, 180.34 cm) vg1 Carlos Coma Score: 15:02 Eye Response: spontaneous(4). Verbal Response: oriented(5). Motor Response: obeys vg1 commands(6). Total: 15. ED Course: 14:27 Patient arrived in ED. as 15:02 Triage completed. vg1 15:02 Arm band placed on. vg1 15:06 Lima Brown, NIKI is Primary Nurse. iw 15:11 Himanshu Yates NP is PHCP. pm1 15:11 Bjorn Nuno MD is Attending Physician. pm1 15:33 XRAY Chest (1 view) In Process Unspecified. EDMS 15:35 Inserted saline lock: 20 gauge in left forearm, using aseptic technique. Blood ll1 collected. 16:10 CT Head Brain wo Cont In Process Unspecified. EDMS 19:04 No provider procedures requiring assistance completed. IV discontinued, intact, ll1 bleeding controlled, No redness/swelling at site. Pressure dressing applied. 19:05 Patient has correct armband on for positive identification. Bed in low position. Call ll1 light in reach. Side rails up X 1. cardiopulmonary technologist on. Pulse ox on. NIBP on. 19:05 Seizure precautions initiated. ll1 Administered Medications: 16:03 Drug: morphine 4 mg {Note: rass 0.} Route: IVP; Site: left forearm; ll1 17:31 Follow up: Response: No adverse reaction ll1 16:03 Drug: Zofran (Ondansetron) 4 mg Route: IVP; Site: left forearm; ll1 17:31 Follow up: Response: No adverse reaction; Pain is decreased; RASS: Alert and Calm (0) ll1 17:31 Drug: NS 0.9% 1000 ml Route: IV; Rate: 1000 ml; Site: left forearm; ll1 19:00 Follow up: Response: No adverse reaction; IV Status: Completed infusion; IV Intake: ll1 1000ml Intake: 19:00 IV: 1000ml; Total: 1000ml. ll1 Outcome: 18:41 Discharge ordered by . pm1 19:04 Discharged to home via wheelchair. ll1 19:04 Condition: stable 19:04 Discharge instructions given to patient, Instructed on discharge instructions, follow up and referral plans. medication usage, Demonstrated understanding of instructions, follow-up care, medications, Prescriptions given X 3. 19:06 Patient left the ED. ll1 Signatures: Dispatcher [employer] Padmini Casey Irene, RN RN iw Himanshu Yates NP CYBER SOFTWARE ENGINEER pm1 Vickie Kent 3 Anne Almendarez RN RN 1 Christine Forrester RN RN ll1
--- NOTE | 2021-08-29 18:42 | EDPHYS ---
Physician Documentation [facility] Name: Gregory Dumont Age: 61 yrs Sex: Male : 1960 Arrival Date: 08/29/2021 Time: 14:27 Bed 19 Private MD: ED Physician Bjorn Nuno HPI: 08/29 17:06 This 61 yrs old Male presents to ER via Wheelchair with complaints of pm1 Dizziness, Seizure, Chest Pain. 17:06 The patient presents with generalized weakness. Onset: The symptoms/episode pm1 began/occurred yesterday. Context: occurred at home, occurred while the patient was walking, just prior to the episode the patient experienced chest pain. Modifying factors: The symptoms are alleviated by nothing, the symptoms are aggravated by Running out of his pain medications. Associated signs and symptoms: Pertinent negatives: abdominal pain, head injury, headache, nausea, shortness of breath, vomiting. Severity of symptoms: Severity of symptoms: in the emergency department the symptoms Patient reports chest pain. Dizziness resolved. Patient's baseline: Neuro: alert and fully oriented, Motor: no deficits, Ambulation: walks without assistance. The patient has not recently seen a physician. Patient reports onset of chest pain, dizziness and weakness onset yesterday. Reports three episodes all occurred while he was walking to the kitchen. He would experience chest pain then get weak and have to get on his knees. Reports history of this in the past and it was resolved with pain medications. Patient attributes his symptoms to running out of his tramadol prior to onset of current symptoms. Historical: - Allergies: 15:02 No Known Allergies; vg1 - Home Meds: 15:02 gabapentin 400 mg Oral cap [Active]; vg1 - PMHx: 15:02 Hypertensive disorder; strokes x 3; Bipolar disorder; ADHD; Anxiety; vg1 - Immunization history:: Client reports receiving the 2nd dose of the Covid vaccine. - Social history:: Smoking status: Patient reports the use of cigarette tobacco products, smokes one pack cigarettes per day. ROS: 17:06 Constitutional: Negative for fever, chills, and weight loss, Respiratory: Negative for pm1 shortness of breath, cough, wheezing, and pleuritic chest pain. 17:06 Abdomen/GI: Negative for abdominal pain, nausea, vomiting, diarrhea, and constipation, Back: Negative for injury and pain, MS/Extremity: Negative for injury and deformity, Skin: Negative for injury, rash, and discoloration. 17:06 Cardiovascular: Positive for chest pain, Negative for edema, palpitations. 17:06 Neuro: Positive for dizziness, Generalized weakness. Possible seizure, Negative for altered mental status, headache, numbness, tingling. 17:06 All other systems are negative. Exam: 17:06 Constitutional: This is a well developed, well nourished patient who is awake, alert, pm1 and in no acute distress. Head/Face: Normocephalic, atraumatic. 17:06 Back: No spinal tenderness. No costovertebral tenderness. Full range of motion. Skin: Warm, dry with normal turgor. Normal color with no rashes, no lesions, and no evidence of cellulitis. MS/ Extremity: Pulses equal, no cyanosis. Neurovascular intact. Full, normal range of motion. 17:06 Cardiovascular: Exam negative for acute changes, Rate: normal, Rhythm: regular, Pulses: no pulse deficits are appreciated, Heart sounds: normal, normal S1and S2, Edema: is not appreciated. 17:06 Respiratory: Exam negative for acute changes, the patient does not display signs of respiratory distress, Respirations: no acute changes, Breath sounds: are clear throughout. 17:06 Abdomen/GI: Exam negative for acute changes, Inspection: abdomen appears normal, Palpation: abdomen is soft and non-tender, in all quadrants. 17:06 Neuro: Exam negative for acute changes, Orientation: is normal, Mentation: is normal, Cranial nerves: CN II- XII are normal as tested, Motor: no acute changes, moves all fours. Vital Signs: 14:49 BP 99 / 74; Pulse 99; Resp 18; Temp 99.1; Pulse Ox 97% ; Weight 84.37 kg; Height 5 ft. vg1 11 in. (180.34 cm); Pain 10/10; 16:54 BP 131 / 86 RA Supine; Pulse 84; Resp 16; Pulse Ox 95% on R/A; dh3 16:56 BP 121 / 92 RA Sitting; Pulse 87; Resp 16; Pulse Ox 96% on R/A; dh3 16:58 BP 113 / 74; Pulse 91; Resp 17; Pulse Ox 95% on R/A; dh3 19:04 BP 149 / 100; Pulse 89; Resp 17; Pulse Ox 95% ; ll1 14:49 Body Mass Index 25.94 (84.37 kg, 180.34 cm) vg1 Carlos Coma Score: 15:02 Eye Response: spontaneous(4). Verbal Response: oriented(5). Motor Response: obeys vg1 commands(6). Total: 15. MDM: 15:12 Patient medically screened. [facility] 18:35 Data reviewed: vital signs. Data interpreted: Pulse oximetry: on room air is 95 %. pm1 Interpretation: normal. 18:35 ED course: Patient would like his prescriptions refilled and to go home. Patient pm1 instructed to drink more fluids because he reports poor PO intake at home. 18:35 Counseling: I had a detailed discussion with the patient and/or guardian regarding: the pm1 historical points, exam findings, and any diagnostic results supporting the discharge/admit diagnosis, lab results, radiology results, the need for outpatient follow up, to return to the emergency department if symptoms worsen or persist or if there are any questions or concerns that arise at home. 08/30 02:28 ED course: [place] reviewed. pm1 08/29 15:06 Order name: Basic Metabolic Panel 08/29 15:06 Order name: CBC with Diff 08/29 15:06 Order name: LFT's; Complete Time: 15:54 08/29 15:06 Order name: Magnesium; Complete Time: 15:54 08/29 15:06 Order name: NT PRO-BNP; Complete Time: 15:54 08/29 15:06 Order name: PT-INR; Complete Time: 15:42 08/29 15:06 Order name: Troponin (emerg Dept Use Only); Complete Time: 15:54 08/29 15:06 Order name: XRAY Chest (1 view); Complete Time: 16:53 08/29 15:07 Order name: Basic Metabolic Panel; Complete Time: 15:54 EDMS 08/29 15:07 Order name: CBC with Automated Diff; Complete Time: 15:54 EDMS 08/29 15:42 Order name: CT Head Brain wo Cont; Complete Time: 16:35 pm1 08/29 15:06 Order name: EKG; Complete Time: 15:07 08/29 15:06 Order name: Cardiac monitoring; Complete Time: 15:07 08/29 15:06 Order name: EKG - Nurse/Tech; Complete Time: 15:07 08/29 15:06 Order name: IV Saline Lock; Complete Time: 15:06 08/29 15:06 Order name: Labs collected and sent; Complete Time: 15:06 08/29 15:06 Order name: O2 Per Protocol; Complete Time: 15:06 08/29 15:06 Order name: O2 Sat Monitoring; Complete Time: 15:06 08/29 15:42 Order name: Orthostatic Blood Pressure; Complete Time: 17:02 pm1 Administered Medications: 08/29 16:03 Drug: morphine 4 mg {Note: rass 0.} Route: IVP; Site: left forearm; 1 17:31 Follow up: Response: No adverse reaction [facility] 16:03 Drug: Zofran (Ondansetron) 4 mg Route: IVP; Site: left forearm; ll1 17:31 Follow up: Response: No adverse reaction; Pain is decreased; RASS: Alert and Calm (0) 1 17:31 Drug: NS 0.9% 1000 ml Route: IV; Rate: 1000 ml; Site: left forearm; ll1 19:00 Follow up: Response: No adverse reaction; IV Status: Completed infusion; IV Intake: ll1 1000ml Disposition: 08/30 03:45 Co-signature as Attending Physician, Bjorn Nuno MD I agree with the assessment and foster plan of care. Disposition Summary: 08/29/21 18:41 Discharge Ordered Location: Home pm1 Problem: new pm1 Symptoms: have improved pm1 Condition: Stable pm1 Diagnosis - Chest pain, unspecified pm1 - Orthostatic hypotension pm1 - Dehydration pm1 Followup: pm1 - With: Emergency Department - When: As needed - Reason: Worsening of condition Followup: pm1 - With: Private Physician - When: 2 - 3 days - Reason: Recheck today's complaints, Continuance of care, Re-evaluation by your physician Discharge Instructions: - Discharge Summary Sheet pm1 - Nonspecific Chest Pain, Adult pm1 - Dehydration, Adult pm1 - Orthostatic Hypotension pm1 - Rehydration, Adult pm1 Forms: - Medication Reconciliation Form pm1 - Thank You Letter pm1 - Antibiotic Education pm1 - Prescription Opioid Use pm1 Prescriptions: - Risperdal 1 mg Oral tablet - take 1 tablet by ORAL route 3 times per day; 30 tablet; Refills: 0, Product pm1 Selection Permitted - Ibuprofen 600 mg Oral Tablet - take 1 tablet by ORAL route every 6 hours As needed take with food; 15 tablet; pm1 Refills: 0, Product Selection Permitted - Tramadol 50 mg Oral Tablet - take 1 tablet by ORAL route every 8 hours as needed; 12 tablet; Refills: 0, pm1 Product Selection Permitted Signatures: Dispatcher [employer] Bjorn Page MD MD cha Williams, Irene RN RN Himanshu Dasilva, KIRK CURTAIN STITCHER pm1 Anne Almendarez RN RN vg1 Christine Forrester RN RN ll1
[2021-08-29 19:44] VITALS: TEMP 99.1
[2021-08-29 19:48] VITALS: O2SAT 95
[2021-08-29 19:49] VITALS: BP 149/100
--- OUTSIDE RECORDS SUMMARY | 2021-08-30 00:05 | XMS REPORT | Continuity of Care Document ---
:1960 Author Organization [facility] t Address [address] [place] [address] Care Team Providers Name Role Phone Caryn BLOUNT Primary Care Physician Unavailable Steffi Gilbert Attending Clinician Unavailable CELI Attending Clinician Unavailable Celi PAINTING MACHINE OPERATOR Attending Clinician Lucio Attending Clinician Unavailable Soren Attending Clinician Unavailable Physician, Primary or Family Admitting Clinician UnavailSteffi Guo Admitting Clinician Unavailable Payers Payer Name Policy Type Policy Number Effective Date Expiration Date S jorge MEDICARE PART A [id number] 2009 \\T\\ B 00:00:00 [place] [id number] 2020 00:00:00 Problems Condition Condition Condition Status Onset Resolution Last Treating Co mments Source Name Details Category Date Date Treatment Clinician Date Pulmonary Pulmonary Disease Active Uni vers embolism, embolism, 6-05 [place] Stroke Stroke Disease Active Univers 9-24 ity of 00:00: Medical Branch Chest pain Chest pain Disease Active U nivers 9-23 ity of 00:00: Medical Branch Acute Acute Disease Active Univers right right 9-23 ity of arterial arterial 00:00: [place] ischemic ischemic 00 Medica l stroke, stroke, Branch middle middle cerebral cerebral artery artery (MCA) (MCA) Tobacco Tobacco Disease Active Univers abuse abuse 4-16 ity of 00:00: Medical Branch Total knee Total knee Disease Active 2015-10 U nivers replacemen replacemen 0-24 it y of t status t status 00:00: Medical Branch Right knee Right knee Disease Active U nivers pain pain 9-20 ity of 00:00: Medical Branch Cerebral Cerebral Disease Active Overview: Un cecile thrombosis thrombosis 3-17 Formattin ity of 00:00: g of this note Medical might be Branch different from the original. 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 Otalgia of Otalgia of Problem Active C [...] trigger d trigger Outp ati ent Clinics Folliculit Folliculit Problem Active [facility] Arthritis Arthritis Problem [facility] Bipolar 1 Bipolar [address] [facility] disorder disorder [facility] Mixed Mixed Problem Active [facility] hyperlipid hyperlipid [place] - emia emia [facility]ics Pure Pure Problem Active [facility] hyperchole hyperchole [place] - sterolemia sterolemia Me moria l [facility] 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 [place] - itis itis Memoria involving involving l multiple multiple Outpat i joints joints ent Clinics Smoker Smoker Problem [facility] Essential Essential Problem Active [facility] hypertensi hypertensi [place] - on on [facility] Other Other Problem Active [facility] chronic chronic [facility] pain [facility]ics Irritabili Irritabili Problem Active [facility] ty and ty and [facility] anger anger [facility] Elevated Elevated Problem Active [facility] [...] disturbanc disturbanc Me moria e e l [facility] Paresthesi Paresthesi Problem Active [facility] a of skin a of skin [facility] Allergies, Adverse Reactions, Alerts Allergy Allergy Status Severity Reaction(s) Onset Inactive Treating Comm ents Source Name Type Date Date Clinician No Known DA Active U [facility]ie 1-14 [place] s 00:00: Patel 00 [facility] No Known DA Active U 2020-0 [facility] Allergie 1-14 [place] 00:00: Patel 00 [facility] No Known DA Active U 2019-0 [facility] Allergie 4-10 [place] [facility] 00:[facility] No Known DA Active U 2020-0 [facility] Allergie 4-10 [place] 00:[facility] 00 [facility] NO KNOWN Drug Active Univers ALLERGIE Class ity of S [facility] Social History Social Habit Start Date Stop Date Quantity Comments Source History of tobacco Cigar Smoker Univ ersity of use [facility] History SDOH University o f Alcohol Frequency [facility] edical Branch History SDNY University o f Alcohol Std Drinks [facility] History SDOH University o f Alcohol Binge [facility] [place] [facility] Branch Exposure to Not sure [place] of SARS-CoV-2 (event) [facility] Sex Assigned At [facility] Medicine Alcohol intake 2021-08-27 2021-08-27 0 /d University of 00:00:00 00:00:00 [facility] Education 2021-03-21 2021-03-21 14 [place] of 00:00:00 00:00:00 [facility] Cigarettes smoked 2016-06-11 2016-06-11 Univers ity of current (pack per 00:00:00 00:00:00 ) - Reported Branch Cigarette 2016-06-11 2016-06-11 University of pack-years 00:00:00 00:00:00 [facility] Tobacco use and 2016-06-11 2016-06-11 Never used Universit y of exposure 00:00:00 00:00:00 [facility] Alcohol Comment 2016-06-11 2016-06-11 sober for 20 Univers ity of 00:00:00 00:00:00 years [facility] Smoking Status Start Date Stop Date Source Unknown if ever smoked [facility] Current some day smoker 2016-06-11 00:00:00 [facility] Medications Ordered Filled Start Stop Current Ordering Indication Dosage Frequency Signature Comments Components Source Medication Medication Date Date Medication? Clinician (SIG) Name Name gabapentin 2020-10- Yes [id number] TAKE 1 Univers 400 mg 10-27 CAPSULE BY ity of capsule 00:00: 05:59 MOUTH [place] 00 :00 EVERY 8 Medical HOURS Branch gabapentin 2020-2020- Yes [id number] TAKE 1 Univers 400 mg 1-11 12-12 CAPSULE BY ity of capsule 00:00: 05:59 MOUTH [place] 00 :00 EVERY 8 Medical HOURS Branch hydrOXYzine 2020- Yes [id number] 50mg Take 1 Univers 50 mg 1-10 tablet by ity of tablet 00:00: mouth [place] 00 every 8 Medical (eight) Branch hours as needed for Itching or Anxiety. cyclobenzap 2020-10 Yes [id number] 10mg Take 1 Univers rine 10 mg 1-10 tablet by ity of tablet 00:00: mouth 3 [place] 00 (three) Medical times Branch daily. hydrOXYzine 2020-10 Yes [id number] 50mg Take 1 Univers 50 mg 1-10 tablet by ity of tablet 00:00: mouth [place] 00 every 8 Medical (eight) Branch hours as needed for Itching or Anxiety. cyclobenzap 2020-10 Yes [id number] 10mg Take 1 Univers rine 10 mg 1-10 tablet by ity of tablet 00:00: mouth 3 [place] 00 (three) Medical times Branch daily. risperiDONE Yes 1mg Take 1 mg U nivers 1 mg tablet 9-15 by mouth 3 it y of 00:00: (three) [place] 00 times Medical daily. Branch risperiDONE Yes 1mg Take 1 mg U nivers 1 mg tablet 9-15 by mouth 3 it y of 00:00: (three) [place] 00 times Medical daily. Branch gabapentin 2020-0 2020- No TAKE 1 Univ ers 400 mg - 11-11 CAPSULE BY ity of capsule 00:00: 00:00 MOUTH [place] 00 :00 EVERY 8 Medical HOURS Branch gabapentin 2020-0 2020- No TAKE 1 Univ ers 400 mg 9- 11-11 CAPSULE BY ity of capsule 00:00: 00:00 MOUTH [place] 00 :00 EVERY 8 Medical HOURS Branch fluticasone 2020-0 Yes Univer s propionate 7-27 ity of 50 00:00: [place] mcg/actuati 00 Medical on nasal Branch spray fluticasone 2020-0 Yes Univer s propionate 7-27 ity of 50 00:00: [place] mcg/actuati 00 Medical on nasal Branch spray apixaban 2020-0 Yes 1291 Take 10 mg Uni vers (ELIQUIS 6-06 po bid x 7 ity o f DVT-PE 00:00: days then [place] TREAT 30D 00 5 mg po Medical START) 5 mg bid x 3 Branc h (74 tabs) 5 months mg VTE Indication starter s: a clot pack in the lung aspirin 81 Yes [id number] 81mg Take 1 U nivers mg chewable 6-06 tablet by ity of tablet 00:00: mouth [place] 00 daily. Medical Branch apixaban Yes 1291 Take 10 mg Uni vers (ELIQUIS 6-06 po bid x 7 ity o f DVT-PE 00:00: days then [place] TREAT 30D 00 5 mg po Medical START) 5 mg bid x 3 Branc h (74 tabs) 5 months mg VTE Indication starter s: a clot pack in the lung aspirin Yes [id number] 81mg Take 1 U nivers mg chewable 6-06 tablet by ity of tablet 00:00: mouth [place] 00 daily. Medical Branch acetaminoph Yes [id number] 2{tbl} Take 2 Un cecile en-codeine 2-15 tablets by ity of (TYLENOL-CO 00:00: mouth [place] DEINE #3) 00 every 6 Medical 300-30 mg (six) Branch tablet hours as needed for Pain (scale 7-10). Indication s: acute pain acetaminoph Yes 4647 2{tbl} Take 2 Un cecile en-codeine 2-15 tablets by ity of (TYLENOL-CO 00:00: mouth [place] DEINE #3) 00 every 6 Medical 300-30 mg (six) Branch tablet hours as needed for Pain (scale 7-10). Indication s: acute pain amLODIPine Yes [id number] 2.5mg Take 1 Univers 2.5 mg 9-29 tablet by ity of tablet 00:00: mouth [place] 00 daily. Medical Branch amLODIPine 0 Yes [id number] 2.5mg Take 1 Univers 2.5 mg 9-29 tablet by ity of tablet 00:00: mouth [place] 00 daily. Medical Branch atorvastati Yes [id number] 40mg Take 1 Univers n 40 mg 9-28 tablet ity of tablet 00:00: through 00 enteral Medical tube at Branch bedtime. atorvastati Yes [id number] 40mg Take 1 Univers n 40 mg 9-28 tablet ity of tablet 00:00: through 00 enteral Medical tube at Branch bedtime. Flonase Flonase Yes Na Gomes [address] [facility] [address] 8-07 each [facility] 00:00: nostril Memoria 00 l Outpati ent Clinics Vital Signs Vital Name Observation Time Observation Value Comments Source Heart rate 2021-08-28 95 /min rechecked prior University o f 03:20:00 to discharge [facility] Systolic blood 2021-08-27 93 mm[Hg] University of pressure 20:54:00 [facility] Diastolic blood 2021-08-27 65 mm[Hg] University o f pressure 20:54:00 [facility] Respiratory rate 2021-08-27 20 /min [facility] 20:54:00 [facility] Body height 2021-08-27 180.3 cm University 20:54:00 [facility] Body weight 2021-08-27 84.414 kg University 20:54:00 [facility] BMI 2021-08-27 25.96 kg/m2 University 20:54:00 [facility] Oxygen saturation 2021-08-27 98 /min [facility] Arterial blood 20:54:00 [facility] by Pulse oximetry [place] Procedures Procedure Date / Time Performed Performing Clinician [facility] karen [id number] 2020-10-30 00:00:00 SPANI [facility] [id number] 2020-01-28 00:00:[address] [facility] [id number] 2020-01-28 00:00:[address] [facility] [id number] 2020-01-28 00:00:[address] [facility] [id number] 2020-01-28 00:00:[address] [facility] [id number] 2020-01-28 00:00:[address] [facility] Plan of Care Planned Activity Planned Date Details Comments Source Future Scheduled Test HEPATITIS C SCREENING [facility] [code = HEPATITIS C Medicine SCREENING] Future Scheduled Test HIV SCREENING [code = [facility] of HIV SCREENING] Medicine Future Scheduled Test FLU VACCINE > 6 MONTHS [facility] [code = FLU VACCINE > 6 Medi cine MONTHS] Future Scheduled Test COLON CANCER SCREENING: [facility] COLONOSCOPY [code = Medicine COLON CANCER SCREENING: COLONOSCOPY] Future Scheduled Test MEDICARE AWV [code = [facility] MEDICARE AWV] Medicine Future Scheduled Test TETANUS SHOT (ADULT) [facility] [code = TETANUS SHOT Medicin e (ADULT)] Encounters Start End Encounter Admission Attending Care Care Encounter Source Date/Time Date/Time Type Type Clinicians Facility Department ID 2020-10-30 Inpatient [facility] REGINALDO [id number] [facility] 12:19:00 [id number] [facility] [place] 2020-01-28 Inpatient Mio Frances [facility] 46 [facility] 16:09:00 [id number] [facility] 2020-01-25 Inpatient Mio Frances [facility] MEDI.[id number] [facility] 16:41:00 [facility] 2021-08-27 2021-08-27 [facility] [id number] Univers 14:30:00 15:34:39 [facility] 2021-08-27 2021-08-27 [facility] [id number] Univers 14:13:41 15:34:39 Visit Angy [facility] [id number] abby TYRONE [id number] Joseph as ERICA?BLEA [id number] [address] MEDICAL OFFICE BUILDING 2020-10-31 2020-10-31 Outpatient FELIX Valdes LABO [id number] [facility] 00:22:00 00:22:00 Olad[place] [address] [facility] 2020-06-20 2020-06-20 [facility] [id number] 10:36:00 10:36:00 thredUP [facility] Medicine Outpati ent [facility] 2020-05-23 2020-05-23 [facility] [id number] 16:20:00 16:20:00 [facility] Medicine Outpati ent [facility] 2020-05-23 2020-05-23 [facility] [id number] 15:25:00 15:25:00 t Okay Resonergy LuK[place]ado s - Drive [facility] Medicine Medicine Outpati ent Clinics 2020-01-28 2020-01-28 Outpatient DORIAN Doty REF [id number] [facility] 14:20:00 14:20:00 Cristopher [id number] [facility] 2020-01-01 2020-01-01 [facility] [id number] 16:10:00 16:10:00 t Okay Okay PopJam Luke s - Drive [facility] Medicine l Medicine Outpati ent Clinics 2019-12-26 2019-12-26 [facility] [id number] 08:44:00 08:44:00 t Okay Okay [employer] [place] - Drive [facility] Medicine Outpati ent Clinics 2019-12-05 2019-12-05 [facility] [id number] 15:07:00 15:07:00 t Okay Okay [employer] [place] - [address] [facility] Medicine l Medicine Outpati ent Clinics 2019-09-24 2019-09-24 [facility] [id number] 09:27:00 09:27:00 t Okay Okay PopJam Luke s - Drive [facility] Medicine l Medicine Outpati ent Clinics 2019-09-06 2019-09-06 [facility] [id number] 12:00:00 12:00:00 t Okay Resonergy [place] s - Drive [facility] Medicine l Medicine Outpati ent Clinics 2019-08-18 2019-08-18 [facility] [id number] 17:55:00 17:55:00 t Okay Okay [employer] [place] - Drive [facility] Medicine l Medicine Outpati ent Clinics 2019-08-01 2019-08-01 [facility] [id number] 09:00:00 09:00:00 t Okay Okay [employer] [place] - Drive [facility] l Medicine Outpati ent Clinics 2019-06-07 2019-06-07 [facility] [id number] 11:20:00 11:20:00 t Okay Okay [employer] [place] - Drive [facility] l Medicine Outpati ent Clinics 2019-01-04 2019-01-04 [facility] [id number] 14:04:00 14:04:00 t [employer] s [employer] [facility] Medicine Outpati ent Clinics 2018-11-23 2018-11-23 [facility] [id number] 09:15:00 09:15:00 t Urgent Urgent Care L [facility] l Outpati ent Clinics 2018-11-20 2018-11-20 [facility] [id number] 10:13:00 10:13:00 t [employer] s - [employer] [facility] Medicine Medicine Outpati ent Clinics 2018-11-15 2018-11-15 [facility] [id number] 15:15:00 15:15:00 t thredUP [facility] Medicine Outpati ent Clinics 2018-10-09 2018-10-09 [facility] [id number] 10:19:00 10:19:00 t thredUP [facility] Medicine Outpati ent Clinics 2018-06-02 2018-06-02 [facility] [id number] 16:46:00 16:46:00 t thredUP [facility] Medicine Outpati ent Clinics 2018-05-11 2018-05-11 [facility] [id number] 09:45:00 09:45:00 t thredUP [facility] Medicine Outpati ent Clinics Results Test Description Test Time Test Comments Results Result Comments Source HOMOCYSTEINE PROFILE 2020-11-01 10:10:00 Test Item Value Reference Range Interpretation Comme nts HOMOCYSTEINE (test code = 15.3 umol/L 0.0-14.5 A Pe rformed At: HD [facility] HOMOCY) [id number] [place], [place] [id number] So MD Ph:[phone] [facility] RAPID PLASMA [id number] 06:11:00 Test Item Value Reference Range Interpretation Comments RAPID PLASMA REAGIN Non Reactive Non Reactive Performe d At: HD (test code = RPR) [facility] Ho [id number] [place], [place] [id number] jyoti So MD Ph:[phone] - CT HEAD/BRAIN W/O [id number] 14:36:[address] [facility] [place] : 1960 Sex: M Name: OTONIEL HENDERSON [facility] : 1960 Age/S: 60 / M [address] [address] [place] Unit #: [id number] Loc:[place] [address] Phys: Ximena Valdes MD Acct: [id number] Dis Date: Status: ADM IN PHONE #: [phone] Exam Date: 10/31/2020 1420 FAX #: Reason: CVA EXAMS: CPT: [id number] CT HEAD/BRAIN W/O CONT [id number] HISTORY: CVA. CT brain, unenhanced. Reformatted sagittal [...] M.D CC: Ximena Valdes MD; Karen PHAM [place] Technologist:Lela Brunner, RT (R)(CT) CTDI: DLP: Trnscb Date/Time: 10/31/2020 (1436) [email or web address] Orig Print D/T: S: 10/31/2020 (2259) PAGE 1 Signed ReportSED [id number] 10:34:00 Test Item Value Reference Range Interpretation Comments SED RATE (test code = SEDW) 7 mm/hr 0-15 SED RATE [id number] 10:33:00 Test Item Value Reference Range Interpretation Comments SED RATE WESTERGREN (test code = 7 mm/hr 0-15 N SEDW) [id number] 07:00:00 Test Item Value Reference Range Interpretation Comments GLYCOSYLATED HEMOGLOBIN (HA1C) 5.5 % A1C 0.0-5.7 N (test code = GLYHGB) ESTIMATED AVERAGE GLUCOSE (test 111 MG/DLest code = EAG) BASIC METABOLIC [id number] 06:55:00 Test Item Value Reference Range Interpretation [...] WITHIN 1 HR AND FREEZE SERUM PROMPTLY.HOMOCYSTEINE [id number] 06:55:00 Test Item Value Reference Range Interpretation Comments HOMOCYSTEINE (test code = HOMOCY) mcMOL/L <9 Comment: FASTING IN AM PATIENT SHOULD BE FASTING OVERNIGHT 10-12 HRS. TAKE BLOOD TO LABASAP. MUST SEPAPATE SERUM FROM CELLS WITHIN 1 HR AND FREEZE SERUM PROMPTLY.CBC W/AUTO [id number] 06:41:00 Test Item Value Reference Range Interpretation [...] NO DIFF/SCN CRITERIA = MDIFF) GLUCOSE BEDSIDE [id number] 23:18:00 Test Item Value Reference Range Interpretation Comments GLUCOSE BEDSIDE TESTING (test code = 94 mg/dL 70-110 N GLUBED) COVID 19 INHOUSE [id number] 15:04:00 Test Item Value Reference Range Interpretation Comments COVID 19 INHOUSE AG NEGATIVE Negative Per manu facturer, (test code = negative result s should [id number]) be treated aspr esumptive and, if inconsi [...] with COVID-19. UA RFLX MICR CULT IF [id number] 14:02:00 Test Item Value Reference Range Interpretation [...] UACULT) Indication for culture: Dysuria/Frequency- CT ANGIO [id number] 13:00:[address] [facility] [place] : 1960 Sex: M Name: OTONIEL HENDERSON [facility] : 1960 Age/S: 60 / M [id number] [address] [place] Unit #: [id number] Loc:[place] [address] Phys: Anjum Rivera MD Acct: [id number] Dis Date: Status: PRE ER PHONE #: [phone] Exam Date: 10/30/2020 1238 FAX #: Reason: slurred speech EXAMS: CPT: [id number] CT ANGIO NECK [id number]: - CT ANGIO HEAD, - CT ANGIO [...] 1 Signed Report (CONTINUED) Name: OTONIEL HENDERSON [facility] : 1960 Age/S: 60 / M [id number] [address] [place] Unit #: [id number] Loc: [place] [address] Phys: Anjum Rivera MD Acct: [id number] Dis Date: Status: PRE ER PHONE #: [phone] Date: 10/30/2020 1235 FAX #: Reason: slurred speech EXAMS: CPT: [id number] ANGIO NECK [address] <Continued> stenosis. Findings were personally discussed with [...] (1300) [email or web address].PR7 Orig Print D/T: S: 10/30/2020 (9793) PAGE 2 Signed Report- CT ANGIO [id number] 13:00:[address] [facility] [place] : 1960 Sex: M Name: OTONIEL HENDERSON [facility] : 1960 Age/S: 60 / M [id number] [address] [place] Unit #: [id number] Loc:[place] [address] Phys: Anjum Rivera MD Acct: [id number] Dis Date: Status: PRE ER PHONE #: [phone] Exam Date: 10/30/2020 1233 FAX #: Reason: slurred speech EXAMS: CPT: [id number] CT ANGIO HEAD [id number]: - CT ANGIO HEAD, - CT ANGIO [...] PAGE 1 Signed Report (CONTINUED) Name: [place]TONIEL [place] : 1960 Age/S: 60 / M [id number] [address] [place] Unit #: [id number] Loc: [place] [address] Phys: Anjum Rivera MD Acct: [id number] Dis Date: Status: PRE ER PHONE #: [phone] Date: 10/30/2020 1233 FAX #: Reason: slurred speech EXAMS: CPT: [id number] ANGIO HEAD [address] <Continued> stenosis. Findings were personally discussed with [...] (1300) t.SDR.PR7 Orig Print D/T: S: 10/30/2020 (6442) PAGE 2 Signed ReportBASIC METABOLIC [id number] 12:50:00 Test Item Value Reference Range Interpretation [...] 8.9 MG/DL 8.5-10.1 N Completed by Nursing: [id number] 12:50:00 Test Item Value Reference Range Interpretation [...] suman yby method. Completed by Nursing: NOPROTHROMBIN [id number] 12:47:00 Test Item Value Reference Range Interpretation Comments PT PATIENT (test code = PTP) 10.5 SECONDS 9.3-12.9 N INTERNATIONAL NORMAL RATIO 0.94 INR Unit 0.8-1.2 N (test code = INR) THROMBOPLASTIN TIME [id number] 12:47:00 Test Item Value Reference Range Interpretation Comments THROMBOPLASTIN TIME PARTIAL 27.9 SECONDS 26-35 N (test code = PTT) BASIC METABOLIC [id number] 12:43:00 Test Item Value Reference Range Interpretation [...] 8.9 MG/DL 8.5-10.1 N Completed by Nursing: [id number] 12:43:00 Test Item Value Reference Range Interpretation Comments TROPONIN-I (test code = TROPI) NG/ML 0.000-0.045 Completed by Nursing: NO- CT HEAD/BRAIN W/O [id number] 12:40:[address] [facility] [place] : 1960 Sex: M Name: OTONIEL HENDERSON [facility] : 1960 Age/S: 60 / M [id number] [address] [place] Unit #: [id number] Loc:[place] [address] Phys: Anjum Rivera MD Acct: [id number] Dis Date: Status: PRE ER PHONE #: [phone] Exam Date: 10/30/2020 1231 FAX #: Reason: Code Stroke EXAMS: CPT: [id number] CT HEAD/BRAIN W/O CONT [id number]: - CT HEAD/BRAIN W/O CONT. LOCATION: S17. [...] 1 Signed Report (CONTINUED) Name: OTONIEL HENDERSON [place] : 1960 Age/S: 60 / M [id number] [address] [place] Unit #: [id number] Loc: [place] [address] Phys: Anjum Rivera MD Acct: [id number] Dis Date: Status: PRE ER PHONE #: [phone] Exam Date: 10/30/2020 1231 FAX #: Reason: Code Stroke EXAMS: CPT: [id number] CT HEAD/BRAIN W/O CONT [id number] <Continued> at 1240 Reported and signed by: Manjinder Antonio M.D. CC: Anjum Rivera MD Technologist:Yohan Love, RT(R)(CT); Kr CTDI: DLP: Trnscb Date/Time: 10/30/2020 (1240) [email or web address].[email or web address] Orig Print D/T: S: 10/30/2020 (3999) PAGE 2 Signed ReportCBC W/O [id number] 12:35:00 Test Item Value Reference Range Interpretation [...] 10.70 fL 7.0-9.6 H MPV) GLUCOSE BEDSIDE [id number] 12:29:00 Test Item Value Reference Range Interpretation Comments GLUCOSE BEDSIDE TESTING (test code 140 mg/dL 70-110 H = GLUBED) BASIC METABOLIC [id number] 06:50:00 Test Item Value Reference Range Interpretation [...] mg/dL 8.8-10.2 N = CA) CBC W/AUTO [id number] 06:40:00 Test Item Value Reference Range Interpretation [...] BA#) 0.07 x10 3/uL 0.0-0.20 N VANCOMYCIN [id number] 13:34:00 Test Item Value Reference Range Interpretation Comments VANCOMYCIN TROUGH (test code = 14.4 mcg/ML 10.0-20.0 N VANCT) Spec Comments: RN PLS DRAW VANCO 30MIN BEFORE DOSE DUE ON 01/30 BASIC METABOLIC [id number] 04:08:00 Test Item Value Reference Range Interpretation [...] code 8.8 mg/dL 8.8-10.2 N = CA) [id number] 04:08:00 Test Item Value Reference Range Interpretation Comments MAGNESIUM (test code = MAG) 1.7 mg/dL 1.4-2.6 N CBC W/AUTO [id number] 03:56:00 Test Item Value Reference Range Interpretation [...] 0.09 x10 3/uL 0.0-0.20 N BASIC METABOLIC [id number] 21:22:00 Test Item Value Reference Range Interpretation [...] mg/dL 8.8-10.2 N = CA) RENAL FUNCTION [id number] 21:22:00 Test Item Value Reference Range Interpretation Comments ALBUMIN (test code = ALB) 3.4 G/DL 3.5-5.0 L PHOSPHOROUS (test code = PHOS) 2.0 mg/dL 2.7-4.5 L LIVER FUNCTION [id number] 21:22:00 Test Item Value Reference Range Interpretation [...] = 63 U/L 45-120 N ALKP) LACTIC [id number] 21:18:00 Test Item Value Reference Range Interpretation Comments LACTIC ACID (test code = LACT) 9.4 mg/dL 4.5-18.0 N PROTHROMBIN [id number] 21:12:00 Test Item Value Reference Range Interpretation [...] 2.5-3.5recurren t systemic emboli sm. THROMBOPLASTIN TIME [id number] 21:12:00 Test Item Value Reference Range Interpretation Comments THROMBOPLASTIN TIME 28.6 SECONDS 26.0-35.9 N INTERPRE TATIVE PARTIAL (test code = DATA: erapeutic PTT) range: Unfractionated heparin:47 - 71 seconds Argatroban:1.5 to 3 times the basel ine PTT PROTHROMBIN [id number] 21:09:00 Test Item Value Reference Range Interpretation [...] 2.5-3.5recurren t systemic emboli sm. THROMBOPLASTIN TIME [id number] 21:09:00 Test Item Value Reference Range Interpretation Comments THROMBOPLASTIN TIME PARTIAL (test SECONDS 26.0-35.9 code = PTT) CBC W/AUTO [id number] 21:08:00 Test Item Value Reference Range Interpretation [...] 0.05 x10 3/uL 0.0-0.20 N CBC W/MANUAL [id number] 05:21:00 Test Item Value Reference Range Interpretation [...] code NORMAL NORMAL = PLTMORPH) RENAL FUNCTION [id number] 05:20:00 Test Item Value Reference Range Interpretation [...] 2.5 mg/dL 2.7-4.5 L code = PHOS) [id number] 05:20:00 Test Item Value Reference Range Interpretation Comments MAGNESIUM (test code = MAG) 1.8 mg/dL 1.4-2.6 N CBC W/MANUAL [id number] 04:48:00 Test Item Value Reference Range Interpretation [...] code = LYMPH) % 20.5-45.5 CBC W/MANUAL [id number] 04:48:00 Test Item Value Reference Range Interpretation [...] (test code = LYMPH) % 20.5-45.5 SURGICAL [id number] 12:52:00 RUN DATE: 01/29/20 [facility] - LAB PAGE 1 RUN TIME: 1252 Specimen Inquiry RUN USER: INTERFACE PATIENT: OTONIEL HENDERSON LOC: PJuliana ABDIFATAH C U #: [id number] AGE/SX: 59/M ROOM: [facility] RE01/25/20REG DR: Cristopher Doty MD : 64 BED: 1 DIS: STATUS: ADM IN TLOC: SPEC #: [id number] RECD: 01/28/20 STATUS: SOUJacky REQ #: [id number] SIMON: 01/28/[address] [facility] [address]: Cristopher Doty MD ENTERED: 01/28/20 SP TYPE: SURG OTHR DR: Roxanna Primary or Family Physician Mio Gilbert MD,DocORDERED: PATHGM3, PATHGM5/2, PATH SPEC, H E STAIN HISTOLOGY: TISSUE ID BLK PCS PARISH LEV / PROCEDURE DISPOSITION ____ ___ ___ ___ ___ COLON SEG NTUMR A 18 1 TISSUES: A. 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 Signed SIGNATURE ON FILE Nita Ashford 01/29/20 1252 END OF REPORT BASIC METABOLIC [id number] 08:29:00 Test Item Value Reference Range Interpretation [...] code 9.2 mg/dL 8.8-10.2 N = CA) [id number] 08:29:00 Test Item Value Reference Range Interpretation Comments MAGNESIUM (test code = MAG) 1.3 mg/dL 1.4-2.6 L CBC W/AUTO [id number] 08:04:00 Test Item Value Reference Range Interpretation [...] x10 3/uL 0.0-0.20 N Novel Coronavirus 2018 [id number] 14:20:00 Test Item Value Reference Range Interpretation Comments Novel Coronavirus NEGATIVE Positive r esults are 2018 nCoV (test indicative o f the presence code = COVID19) pyZEDA-IbK-1 RNA, clinical correlation wit h patient historyand [...] personneltraine d in the procedures for the [place] M2000 molecular diagnostic SARS-CoV-2 assa y in vitro. NEGATIVE Value reported toFirst Name: SAVITA Last Name:[facility] RESULTS READ BACK AND VERIFIEDbyP.LAB.RS, on 01/26/20, @ 1934.- XR ABDOMEN [id number] 14:18:00Patient Name: OTONIEL HENDERSON Unit No: [id number] EXAMS: CPT CODE: [id number] XR ABDOMEN 1V 08160 Abdomen one view supine 01/28/2020 CLINICAL INDICATION: [...] Dt/Tm: 01/28/2020 (1418) by:[email or web address] Printed Date/Time: 01/28/2020 (3029) [facility]: José Antonio Zamora MD [address] : 1960 Age: 59 Sex: [place] [address] Loc: P.0733 1 Exam Date: 01/28/2020 Status: ADM IN PH: FAX: PAGE 1 Signed ReportCOMPREHENSIVE METABOLIC [id number] 07:39:00 Test Item Value Reference Range Interpretation [...] 45-120 N PHOSPHATASE (test code = ALKP) [id number] 07:39:00 Test Item Value Reference Range Interpretation Comments MAGNESIUM (test code = MAG) 1.4 mg/dL 1.4-2.6 N CBC W/AUTO [id number] 07:12:00 Test Item Value Reference Range Interpretation [...] = BA#) 0.10 x10 3/uL 0.0-0.20 N [id number] 15:08:00 Test Item Value Reference Range Interpretation Comments LITHIUM (test 0.5 mmol/L 0.6-1.2 L code = LITH) Detection Limit = 0.1 <0.1 indicate s None DetectedPerform ed At: [facility] [id number] So MD Ph:[phone] [id number] 15:08:00 Test Item Value Reference Range Interpretation Comments LITHIUM (test 0.5 mmol/L 0.6-1.2 L code = LITH) Detection Limit = 0.1 <0.1 indicate s None DetectedPerform ed At: [facility] [address] [id number] oS MD Ph:[phone] Novel Coronavirus 2019 [id number] 07:11:00 Test Item Value Reference Range Interpretation [...] PHOSPHATASE (test code = ALKP) CBC W/AUTO [id number] 04:21:00 Test Item Value Reference Range Interpretation [...] 3/uL 0.0-0.20 N - CT ABD PELVIS [id number] 09:58:00Patient Name: OTOINEL HENDERSON Unit No: [id number] EXAMS: CPT CODE: [id number] CT ABD PELVIS W/CONT 37737 CT abdomen and pelvis with IV contrast. [...] renal cyst. Additional findings as above. [facility]: ALONSO Norbert William MD [address] : 1960 Age: 59 Sex: M [place] [address] Loc: P.0723 1 Exam Date: 01/26/2020 Status: ADM IN PH: FAX: PAGE 1 Signed Report (CONTINUED) Patient Name: OTONIEL HENDERSON Unit No: [id number] EXAMS: CPT CODE: [id number] CT ABD PELVIS W/CONT 13995 <Continued> at 0958 Reported and signed by: OTONIEL ROSSI M.D. CC: Cristopher Doty MD; Norbert William MD Technologist: ANTONIO Martin(R)(CT) CTDI: 11.68 DLP: 602 Trscr Dt/Tm: 01/26/2020 (0958) by:[email or web address] Printed Date/Time: 01/26/2020 (1001)[facility] - Norbert William MD [address] : 1960 Age: 59 Sex: M [place] [address] Loc: P.0723 1 Exam Date: 01/26/2020 Status: ADM IN PH: FAX: PAGE 2 Signed ReportCOMPREHENSIVE METABOLIC [id number] 05:50:00 Test Item Value Reference Range Interpretation [...] PHOSPHATASE (test code = ALKP) CBC W/AUTO [id number] 04:55:00 Test Item Value Reference Range Interpretation [...] 0.15 x10 3/uL 0.0-0.20 N COMPREHENSIVE METABOLIC [id number] 18:44:00 Test Item Value Reference Range Interpretation [...] N PHOSPHATASE (test code = ALKP) PROTHROMBIN [id number] 18:32:00 Test Item Value Reference Range Interpretation [...] 2.5-3.5recurren t systemic emboli sm. CBC W/AUTO [id number] 18:26:00 Test Item Value Reference Range Interpretation [...]
== END 2021-08-29 19:06 | disposition home or self-care (01) ==
LOC: ER 14:27
DX: R07.9 Chest pain, unspecified (principal); I95.1 Orthostatic hypotension; E86.0 Dehydration
CPT/HCPCS: 96361; 93005; 85025; 80048; 36415; 83735; 85610; 80076; 84484; 83880; 70450; 71045; 96375; 96374; 99284; J7030; J2405

== ENCOUNTER 2021-10-28 13:50 | Emergency (ER) | payer OTHER ==
--- OUTSIDE RECORDS SUMMARY | 2021-10-28 14:00 | XMS REPORT | Continuity of Care Document ---
:1960 Author Organization [facility] t Address [address] [place] [address] Care Team Providers Name Role Phone Caryn BLOUNT Primary Care Physician Unavailable Steffi Gilbert Attending Clinician Unavailable JIE Attending Clinician Unavailable Caryn SUAREZ Attending Clinician Unavailable Jie CALDWELL Attending Clinician Caryn Steen Attending Clinician Elba Attending Clinician Unavailable A_Byrd Attending Clinician Unavailable Lucio Attending Clinician Unavailable Soren Attending Clinician Unavailable Physician, Primary or Family Admitting Clinician UnavailSteffi Guo Admitting Clinician Unavailable Elba Admitting Clinician Unavailable A_Byrd Admitting Clinician Unavailable Payers Payer Name Policy Type Policy Number Effective Date Expiration Date S jorge MEDICARE PART A \\T\\ [id number] 2009 B 00:00:00 MEDICAID [facility] [id number] 2020 00:00:00 [place]ARE B-[place]: [id number] [employer] [facility] [id number] 2020 COMMUNITY PLAN - 00:00:00 [facility] (MEDICAID HMO) Problems Condition Condition Condition Status Onset Resolution Last Treating Co mments Source Name Details Category Date Date Treatment Clinician Date Pulmonary Pulmonary Disease Active Uni vers embolism, embolism, 6-05 [place]y [place] Stroke Stroke Disease Active Univers 9-24 ity of 00:00: [place] 00 Medical Branch Chest pain Chest pain Disease Active U nivers 9-23 ity of 00:00: [place] 00 Medical Branch Acute Acute Disease Active Univers right right 9-23 ity of arterial arterial 00:00: [place] ischemic ischemic 00 Medica l stroke, stroke, Branch middle middle cerebral cerebral artery artery (MCA) (MCA) Tobacco Tobacco Disease Active Univers abuse abuse 4-16 ity of 00:00: [place] 00 Medical Branch Total knee Total knee Disease Active 2015-10 U nivers replacemen replacemen 0-24 it y of t status t status 00:00: [place] 00 Medical Branch Right knee Right knee Disease Active U nivers pain pain 9-20 ity of 00:00: [place] 00 Medical Branch Cerebral Cerebral Disease Active Overview: Un cecile thrombosis thrombosis 3-17 Formattin ity of 00:00: g of this [place] note Medical might be Branch different from the original. ICD10 Diagnosis Term Manager Relocation Utility Primary Primary Problem Active [facility] [...] St disorder disorder [facility] Mixed Mixed Problem Active [facility] hyperlipid hyperlipid [facility] - em[facility] Pure Pure Problem Active [facility] hyperchole hyperchole [place]es - sterolemia sterolemia Me moria l [facility] Allergies, Adverse Reactions, Alerts Allergy Allergy Status Severity Reaction(s) Onset Inactive Treating Comm ents Source Name Type Date Date Clinician No Known DA Active U [facility] Allergie 1-14 Clear s 00:00: Patel 00 [facility] No Known DA Active U 0 [facility] Allergie 1-14 Clear s 00:00: Patel 00 [facility] No Known DA Active U 0 [facility] 4-10 [facility] No Known DA Active U 0 [facility] Allergie 4-10 [facility] 00:[facility]: [facility] 00 are [facility] NO KNOWN Drug Active Univers ALLERGIE Class ity of S [facility] Social History Social Habit Start Date Stop Date Quantity Comments Source History of tobacco Cigar Smoker Univ ersity of use [facility] History SDOH University o f [facility] SDMD University o f Alcohol Std Drinks [facility] History SDMD University o f Alcohol Binge [facility] Exposure to Not sure [place] of SARS-CoV-2 (event) [facility] Alcohol intake 2021-09-04 2021-09-04 0 /d [facility] 00:00:00 00:00:00 [facility] Education 2021-03-21 2021-03-21 14 [facility] 00:00:00 00:00:00 [facility] Cigarettes smoked 2016-06-11 2016-06-11 Univers ity of current (pack per 00:00:00 00:00:00 [facility]) - Reported Branch Cigarette 2016-06-11 2016-06-11 University of pack-years 00:00:00 00:00:00 [facility] Tobacco use and 2016-06-11 2016-06-11 Never used Universit y of exposure 00:00:00 00:00:00 [facility] Alcohol Comment 2016-06-11 2016-06-11 sober for 20 Univers ity of 00:00:00 00:00:00 years [facility] Smoking Status Start Date Stop Date Source Unknown if ever smoked [facility] Current some day smoker 2016-06-11 00:00:00 [facility] Medications Ordered Filled Start Stop Current Ordering Indication Dosage Frequency Signature Comments Components Source Medication Medication Date Date Medication? Clinician (SIG) Name Name clopidogreL 2020-10 Yes [id number] 75mg Take 1 Univers 75 mg 1-19 tablet by ity of tablet 00:00: mouth [place] 00 daily. Medical Branch clopidogreL 2020-10 Yes [id number] 75mg Take 1 Univers 75 mg 1-19 tablet by ity of tablet 00:00: mouth [place] 00 daily. Medical Branch gabapentin 2020-10- Yes [id number] TAKE 1 Univers 400 mg 1-11 12-12 CAPSULE BY ity of capsule 00:00: 05:59 MOUTH [place] 00 :00 EVERY 8 Medical HOURS Branch gabapentin 2020-10- Yes [id number] TAKE 1 Univers 400 mg 1-11 12-12 CAPSULE BY ity of capsule 00:00: 05:59 MOUTH [place] 00 :00 EVERY 8 Medical HOURS Branch hydrOXYzine 2020-10 Yes [id number] 50mg Take 1 Univers 50 mg 1-10 tablet by ity of tablet 00:00: mouth [place] 00 every 8 Medical (eight) Branch hours as needed for Itching or Anxiety. cyclobenzap 2020-10 Yes [id number] 10mg Take 1 Univers rine 10 mg 1-10 tablet by ity of tablet 00:00: mouth 3 [place] 00 (three) Medical times Branch daily. hydrOXYzine 2020-10 Yes [id number] 50mg Take 1 Univers 50 mg 1-10 tablet by ity of tablet 00:00: mouth [place] 00 every 8 Medical (eight) Branch hours as needed for Itching or Anxiety. cyclobenzap 2020-10 Yes [id number] 10mg Take 1 Univers rine 10 mg 1-10 tablet by ity of tablet 00:00: mouth 3 [place] 00 (three) Medical times Branch daily. risperiDONE Yes 1mg Take 1 mg U nivers 1 mg tablet 9-15 by mouth 3 it y of 00:00: (three) [place] 00 times Medical daily. Branch risperiDONE Yes 1mg Take 1 mg U nivers 1 mg tablet 9-15 by mouth 3 it y of 00:00: (three) [place] 00 times Medical daily. Branch fluticasone Yes Univer s propionate 7-27 ity of 50 00:00: [place] mcg/actuati 00 Medical on nasal Branch spray fluticasone Yes Univer s propionate 7-27 ity of 50 00:00: [place] mcg/actuati 00 Medical on nasal Branch spray aspirin 81 Yes [id number] 81mg Take 1 U nivers mg chewable 6-06 tablet by ity of tablet 00:00: mouth [place] 00 daily. Medical Branch aspirin 81 Yes [id number] 81mg Take 1 U nivers mg chewable [...] (scale 7-10). Indication s: acute pain amLODIPine 2019-0 Yes [id number] 2.5mg Take 1 Univers 2.5 mg 9-29 tablet by ity of tablet 00:00: mouth [place] 00 daily. Medical Branch amLODIPine 2019-0 Yes [id number] 2.5mg Take 1 Univers 2.5 mg 9-29 tablet by ity of tablet 00:00: mouth [place] 00 daily. Medical Branch atorvastati 2019-0 Yes [id number] 40mg Take 1 Univers n 40 mg 9-28 tablet ity of tablet 00:00: through 00 enteral Medical tube at [place] bedtime. atorvastati 2019-0 Yes [id number] 40mg Take 1 Univers n 40 mg 9-28 tablet ity of tablet 00:00: through 00 enteral Medical tube at [place] bedtime. Flonase Flonase 2019-0 Yes Na Gomes [address] [facility] 8-07 each [facility] 00:[facility] nostril [facility] l Outpati ent Clinics Procedures Procedure Date / Time Performed Performing Clinician [facility] karen [id number] 2020-10-30 00:00:00 SPANI [facility] [id number] 2020-01-28 00:00:00 WEAMA.02 [facility] [id number] 2020-01-28 00:00:00 WEAMA.02 [facility] [id number] 2020-01-28 00:00:00 WEAMA.02 [facility] [id number] 2020-01-28 00:00:00 WEAMA.02 [facility] [id number] 2020-01-28 00:00:00 WEAMA.02 [facility] Plan of Care Planned Activity Planned Date Details Comments Source Future Scheduled Test COLON CANCER SCREENING: [facility] COLONOSCOPY [code = Medicine COLON CANCER SCREENING: COLONOSCOPY] Future Scheduled Test MEDICARE AWV [code = [employer] MEDICARE AWV] Medicine Future Scheduled Test TETANUS SHOT (ADULT) [facility] [code = TETANUS SHOT Medicin e (ADULT)] Future Scheduled Test HEPATITIS C SCREENING [facility] [code = HEPATITIS C Medicine SCREENING] Future Scheduled Test HIV SCREENING [code = [facility] HIV SCREENING] Medicine Future Scheduled Test FLU VACCINE > 6 MONTHS [facility] [code = FLU VACCINE > 6 Medi cine MONTHS] Encounters Start End Encounter Admission Attending Care Care Encounter Source Date/Time Date/Time Type Type Clinicians Facility Department ID 2020-10-30 Inpatient [facility] REGINALDO [id number] [facility] 12:19:00 [id number] [facility] 2020-01-28 Inpatient EL Gilbert, Mio [facility] DAYS [id number] [facility] 16:09:00 [id number] [facility] 2020-01-25 Inpatient EL Gilbert, Mio [facility] MEDI. [id number] [facility] 16:41:00 [facility] 2021-11-20 2021-11-20 Outpatient [facility] [id number] Univers 16:00:00 16:00:00 SOLE [id number] [facility] 2021-10-02 2021-10-02 Outpatient R [facility] [id number] [facility] 09:00:00 09:00:00 SOLE [id number] [facility] 2021-10-02 2021-10-02 Outpatient R JIE [facility] [id number] Univers 09:00:00 09:00:00 SOLE [facility] 2021-10-01 2021-10-01 Outpatient R DANIELA, [facility] [id number] [facility] 13:00:00 13:00:00 DELMY [id number] [facility] 2021-09-17 2021-09-17 [facility] [id number] Univers 00:00:00 00:00:00 Sole HANSEN [id number] i ty of [facility] [id number] [place] PROFESS[place] [id number] [address] 2021-09-15 2021-09-15 [facility]phone [facility] [id number] Univers 00:00:00 00:00:00 Digna Caryn [facility] [id number] i ty [facility] [id number] Joseph as ERICA?BLEA [id number] [address] MEDICAL OFFICE [facility] 2021-06-10 2021-06-10 Outpatient Zuniga_F [facility] [id number] [place] 09:20:00 09:20:00 [facility] 2021-06-03 2021-06-03 Outpatient A_Byrd [facility] [id number] [place] 10:29:00 10:29:00 [facility]18 [facility] 2020-10-31 2020-10-31 Outpatient FELIX Valdes LABO [id number] [facility] 00:22:00 00:22:00 Oladipo [address] [facility] 2020-06-20 2020-06-20 [facility] [id number] 10:36:00 10:36:00 Learn with Homer Lebeau [employer] [facility] Medicine Outpati ent Clinics 2020-05-23 2020-05-23 [facility] [id number] 16:20:00 16:20:00 [place] [employer] LuEntelos s - Drive [facility] Medicine Outpati ent Clinics 2020-05-23 2020-05-23 [facility] [id number] 15:25:00 15:25:00 [place] [employer] s - Drive [facility] Medicine Outpati ent Clinics 2020-01-28 2020-01-28 Outpatient SorenDORIANN REF [id number] [facility] 14:20:00 14:20:00 Cristopher [id number] [facility] 2020-01-01 2020-01-01 [facility] [id number] 16:10:00 16:10:00 [place] [employer] [facility] Medicine Outpati ent Clinics 2019-12-26 2019-12-26 [facility] [id number] 08:44:00 08:44:00 [place] [employer] [facility] Medicine Outpati ent Clinics 2019-12-05 2019-12-05 [facility] [id number] 15:07:00 15:07:00 [place] [employer] [facility] Medicine Outpati ent Clinics 2019-09-24 2019-09-24 [facility] [id number] 09:27:00 09:27:00 t [place] [employer] [facility] Medicine Outpati ent Clinics 2019-09-06 2019-09-06 [facility] [id number] 12:00:00 12:00:00 t [place] [employer] - Drive [facility] Medicine Outpati ent Clinics 2019-08-18 2019-08-18 [facility] [id number] 17:55:00 17:55:00 t [place] [employer] - Drive [facility] Medicine Outpati ent Clinics 2019-08-01 2019-08-01 [facility] [id number] 09:00:00 09:00:00 [place] [employer] - Drive [facility] Medicine Outpati ent Clinics 2019-06-07 2019-06-07 [facility] [id number] 11:20:00 11:20:00 t [place] [employer] [facility] Medicine Outpati ent Clinics 2019-01-04 2019-01-04 [facility] [id number] 14:04:00 14:04:00 t [place] [employer] TRAKLOK [facility] Medicine Outpati ent Clinics 2018-11-23 2018-11-23 [facility] [id number] 09:15:00 09:15:00 t [facility] Outpati ent Clinics 2018-11-20 2018-11-20 [facility] [id number] 10:13:00 10:13:[address] TRAKLOK [facility] Medicine Outpati ent Clinics 2018-11-15 2018-11-15 [facility] [id number] 15:15:00 15:15:[address] TRAKLOK [facility] Medicine Outpati ent Clinics 2018-10-09 2018-10-09 [facility] [id number] 10:19:00 10:19:00 t [employer] [facility] Medicine Outpati ent Clinics 2018-06-02 2018-06-02 [facility] [id number] 16:46:00 16:46:[address] s - [employer] [facility] Medicine Outpati ent Clinics 2018-05-11 2018-05-11 [facility] [id number] 09:45:00 09:45:[address] TRAKLOK [facility] Medicine Outpati ent Clinics Results Test Description Test Time Test Comments Results Result Comments Source HOMOCYSTEINE PROFILE 2020-11-01 10:10:00 Test Item Value Reference Range Interpretation Comme nts HOMOCYSTEINE (test code = 15.3 umol/L 0.0-14.5 A Pe rformed At: [facility] HOMOCY) [id number] [place], [place] [id number] So MD Ph:[phone] RAPID PLASMA [id number] 06:11:00 Test Item Value Reference Range Interpretation Comments RAPID PLASMA REAGIN Non Reactive Non Reactive Performe d At: HD (test code = RPR) [facility] [id number] [facility] [place] [id number] ukaren Jacky So MD Ph:[phone] - CT HEAD/BRAIN W/O [id number] 14:36:00 [facility] : 1960 Sex: M Name: OTONIEL HENDERSON [facility] : 1960 Age/S: 60 / M [id number] Unit #: [id number] Loc:[place] [address] Phys: Ximena Valdes MD Acct: [id number] Dis Date: Status: ADM IN PHONE #: [phone] Exam Date: 10/31/2020 1420 FAX #: Reason: CVA EXAMS: CPT: [id number] CT HEAD/BRAIN W/O CONT [id number] HISTORY: CVA. CT brain, unenhanced. Reformatted sagittal [...] M.D CC: Ximena Valdes MD; Karen Shoemaker Technologist:Lela Brunner RT (R)(CT) CTDI: DLP: Trnscb Date/Time: 10/31/2020 (1436) [email or web address] Orig Print D/T: S: 10/31/2020 (1439) PAGE 1 Signed ReportSED [id number] 10:34:00 Test Item Value Reference Range Interpretation Comments SED RATE (test code = SEDW) 7 mm/hr 0-15 SED RATE [id number] 10:33:00 Test Item Value Reference Range Interpretation Comments SED RATE WESTERGREN (test code = 7 mm/hr 0-15 N SEDW) [id number] 07:00:00 Test Item Value Reference Range Interpretation Comments GLYCOSYLATED HEMOGLOBIN (HA1C) 5.5 % A1C 0.0-5.7 N (test code = GLYHGB) ESTIMATED AVERAGE GLUCOSE (test 111 MG/DLest code = EAG) BASIC METABOLIC [id number] 06:55:00 Test Item Value Reference Range Interpretation [...] WITHIN 1 HR AND FREEZE SERUM PROMPTLY.HOMOCYSTEINE [id number] 06:55:00 Test Item Value Reference Range Interpretation Comments HOMOCYSTEINE (test code = HOMOCY) mcMOL/L <9 Comment: FASTING IN AM PATIENT SHOULD BE FASTING OVERNIGHT 10-12 HRS. TAKE BLOOD TO LABASAP. MUST SEPAPATE SERUM FROM CELLS WITHIN 1 HR AND FREEZE SERUM PROMPTLY.CBC W/AUTO [id number] 06:41:00 Test Item Value Reference Range Interpretation [...] NO DIFF/SCN CRITERIA = MDIFF) GLUCOSE BEDSIDE [id number] 23:18:00 Test Item Value Reference Range Interpretation Comments GLUCOSE BEDSIDE TESTING (test code = 94 mg/dL 70-110 N GLUBED) COVID 19 INHOUSE [id number] 15:04:00 Test Item Value Reference Range Interpretation Comments COVID 19 INHOUSE AG NEGATIVE Negative Per [facility] facturer, (test code = negative result s should [id number]) be treated aspr esumptive and, if inconsi [...] with COVID-19. UA RFLX MICR CULT IF [id number] 14:02:00 Test Item Value Reference Range Interpretation [...] UACULT) Indication for culture: Dysuria/Frequency- CT ANGIO [id number] 13:00:00 [facility] [place] [facility] : 1960 Sex: M Name: OTONIEL HENDERSON [facility] : 1960 Age/S: 60 / M [id number] Unit #: [id number] Loc:[place] [address] Phys: Anjum Rivera MD Acct: [id number] Dis Date: Status: PRE ER PHONE #: [phone] Exam Date: 10/30/2020 1235 FAX #: Reason: slurred speech EXAMS: CPT: [id number] CT ANGIO NECK [id number]: - CT ANGIO HEAD, - CT ANGIO [...] 1 Signed Report (CONTINUED) Name: OTONIEL HENDERSON [place] : 1960 Age/S: 60 / M [id number] Unit #: [id number] Loc: [place] [address] Phys: Anjum Rivera MD Acct: [id number] Dis Date: Status: PRE ER PHONE #: [phone] Date: 10/30/2020 1235 FAX #: Reason: slurred speech EXAMS: CPT: [id number] ANGIO NECK 04036 <Continued> stenosis. Findings were personally discussed with [...] (1303) PAGE 2 Signed Report- CT ANGIO [id number] 13:00:00 [facility] [place] [facility] : 1960 Sex: M Name: OTONIEL HENDERSON [facility] : 1960 Age/S: 60 / M [id number] Unit #: [id number] Loc:[place] [address] Phys: Anjum Rivera MD Acct: [id number] Dis Date: Status: PRE ER PHONE #: [phone] Exam Date: 10/30/2020 1233 FAX #: Reason: slurred speech EXAMS: CPT: [id number] CT ANGIO HEAD [id number]: - CT ANGIO HEAD, - CT ANGIO [...] Signed Report (CONTINUED) Name: OTONIEL HENDERSON [facility] : 1960 Age/S: 60 / M [id number] Unit #: [id number] Loc: [place] [address] Phys: Anjum Rivera MD Acct: [id number] Dis Date: Status: PRE ER PHONE #: [phone] Date: 10/30/2020 1233 FAX #: Reason: slurred speech EXAMS: CPT: [id number] ANGIO HEAD 65971 <Continued> stenosis. Findings were personally discussed with [...] Kr CTDI: DLP: Trnscb Date/Time: 10/30/2020 (1300) [email or web address] Orig Print D/T: S: 10/30/2020 (9400) PAGE 2 Signed ReportBASIC METABOLIC [id number] 12:50:00 Test Item Value Reference Range Interpretation [...] 8.9 MG/DL 8.5-10.1 N Completed by Nursing: [id number] 12:50:00 Test Item Value Reference Range Interpretation [...] suman yby method. Completed by Nursing: NOPROTHROMBIN [id number] 12:47:00 Test Item Value Reference Range Interpretation Comments PT PATIENT (test code = PTP) 10.5 SECONDS 9.3-12.9 N INTERNATIONAL NORMAL RATIO 0.94 INR Unit 0.8-1.2 N (test code = INR) THROMBOPLASTIN TIME [id number] 12:47:00 Test Item Value Reference Range Interpretation Comments THROMBOPLASTIN TIME PARTIAL 27.9 SECONDS 26-35 N (test code = PTT) BASIC METABOLIC [id number] 12:43:00 Test Item Value Reference Range Interpretation [...] 8.9 MG/DL 8.5-10.1 N Completed by Nursing: [id number] 12:43:00 Test Item Value Reference Range Interpretation Comments TROPONIN-I (test code = TROPI) NG/ML 0.000-0.045 Completed by Nursing: NO- CT HEAD/BRAIN W/O [id number] 12:40:00 [facility] 1960 Sex: M Name: OTONIEL HENDERSON [facility] : 1960 Age/S: 60 / M [id number] Unit #: [id number] Loc:[place] [address] Phys: Anjum Rivera MD Acct: [id number] Dis Date: Status: PRE ER PHONE #: [phone] Exam Date: 10/30/2020 1231 FAX #: Reason: Code Stroke EXAMS: CPT: [id number] CT HEAD/BRAIN W/O CONT [id number]: - CT HEAD/BRAIN W/O CONT. LOCATION: S17. [...] Signed Report (CONTINUED) Name: OTONIEL HENDERSON [facility] : 1960 Age/S: 60 / M [id number] [facility] Unit #: [id number] Loc: [place] [address] Phys: Anjum Rivera MD Acct: [id number] Dis Date: Status: PRE ER PHONE #: [phone] Exam Date: 10/30/2020 1231 FAX #: Reason: Code Stroke EXAMS: CPT: [id number] CT HEAD/BRAIN W/O CONT 10270 <Continued> at 1240 Reported and signed by: Manjinder Antonio M.D. CC: Anjum Rivera MD Technologist:Yohan Love, RT(R)(CT); Kr CTDI: DLP: Trnscb Date/Time: 10/30/2020 (1240) MorganANS4 Orig Print D/T: S: 10/30/2020 (9289) PAGE 2 Signed ReportCBC W/O [id number] 12:35:00 Test Item Value Reference Range Interpretation [...] 10.70 fL 7.0-9.6 H MPV) GLUCOSE BEDSIDE [id number] 12:29:00 Test Item Value Reference Range Interpretation Comments GLUCOSE BEDSIDE TESTING (test code 140 mg/dL 70-110 H = GLUBED) BASIC METABOLIC [id number] 06:50:00 Test Item Value Reference Range Interpretation [...] mg/dL 8.8-10.2 N = CA) CBC W/AUTO [id number] 06:40:00 Test Item Value Reference Range Interpretation [...] BA#) 0.07 x10 3/uL 0.0-0.20 N VANCOMYCIN [id number] 13:34:00 Test Item Value Reference Range Interpretation Comments VANCOMYCIN TROUGH (test code = 14.4 mcg/ML 10.0-20.0 N VANCT) Spec Comments: RN PLS DRAW VANCO 30MIN BEFORE DOSE DUE ON 01/30 BASIC METABOLIC [id number] 04:08:00 Test Item Value Reference Range Interpretation [...] code 8.8 mg/dL 8.8-10.2 N = CA) [id number] 04:08:00 Test Item Value Reference Range Interpretation Comments MAGNESIUM (test code = MAG) 1.7 mg/dL 1.4-2.6 N CBC W/AUTO [id number] 03:56:00 Test Item Value Reference Range Interpretation [...] 0.09 x10 3/uL 0.0-0.20 N BASIC METABOLIC [id number] 21:22:00 Test Item Value Reference Range Interpretation [...] mg/dL 8.8-10.2 N = CA) RENAL FUNCTION [id number] 21:22:00 Test Item Value Reference Range Interpretation Comments ALBUMIN (test code = ALB) 3.4 G/DL 3.5-5.0 L PHOSPHOROUS (test code = PHOS) 2.0 mg/dL 2.7-4.5 L LIVER FUNCTION [id number] 21:22:00 Test Item Value Reference Range Interpretation [...] = 63 U/L 45-120 N ALKP) LACTIC [id number] 21:18:00 Test Item Value Reference Range Interpretation Comments LACTIC ACID (test code = LACT) 9.4 mg/dL 4.5-18.0 N PROTHROMBIN [id number] 21:12:00 Test Item Value Reference Range Interpretation [...] 2.5-3.5recurren t systemic emboli sm. THROMBOPLASTIN TIME [id number] 21:12:00 Test Item Value Reference Range Interpretation Comments THROMBOPLASTIN TIME 28.6 SECONDS 26.0-35.9 N INTERPRE TATIVE PARTIAL (test code = DATA: erapeutic PTT) range: Unfractionated heparin:47 - 71 seconds Argatroban:1.5 to 3 times the basel ine PTT PROTHROMBIN [id number] 21:09:00 Test Item Value Reference Range Interpretation [...] 2.5-3.5recurren t systemic emboli sm. THROMBOPLASTIN TIME [id number] 21:09:00 Test Item Value Reference Range Interpretation Comments THROMBOPLASTIN TIME PARTIAL (test SECONDS 26.0-35.9 code = PTT) CBC W/AUTO [id number] 21:08:00 Test Item Value Reference Range Interpretation [...] 0.05 x10 3/uL 0.0-0.20 N CBC W/MANUAL [id number] 05:21:00 Test Item Value Reference Range Interpretation [...] code NORMAL NORMAL = PLTMORPH) RENAL FUNCTION [id number] 05:20:00 Test Item Value Reference Range Interpretation [...] 2.5 mg/dL 2.7-4.5 L code = PHOS) [id number] 05:20:00 Test Item Value Reference Range Interpretation Comments MAGNESIUM (test code = MAG) 1.8 mg/dL 1.4-2.6 N CBC W/MANUAL [id number] 04:48:00 Test Item Value Reference Range Interpretation [...] code = LYMPH) % 20.5-45.5 CBC W/MANUAL [id number] 04:48:00 Test Item Value Reference Range Interpretation [...] (test code = LYMPH) % 20.5-45.5 SURGICAL [id number] 12:52:00 RUN DATE: 01/29/20 [facility] - LAB PAGE 1 RUN TIME: 1252 Specimen Inquiry RUN USER: INTERFACE PATIENT: OTONIEL HENDERSON [facility] U #: [id number] AGE/SX: 59/M ROOM: [facility] RE01/25/20REG DR: Cristopher Doty MD : 64 BED: 1 DIS: STATUS: ADM IN TLOC: SPEC #: [id number] RECD: 01/28/20 STATUS: SOUT REQ #: [id number] SIMON: 01/28/20 [facility] DR: Cristopher Doty MD ENTERED: 01/28/20 SP TYPE: SURG OTHR DR: No Primary or Family Physician Mio Gilbert MD No,DocORDERED: PATHGM3, PATHGM5/2, PATH SPEC, H E STAIN HISTOLOGY: TISSUE ID BLK PCS PARISH LEV / PROCEDURE DISPOSITION ____ ___ ___ ___ ___ COLON SEG NTUMR A 18 1 TISSUES: A. COLON SEGMENTAL [id number] - Sigmoid Colon Proximal Rectum Anastomatic Donuts, [...] CONTINUED ON NEXT PAGE RUN DATE: 01/29/20 [facility] - LAB PAGE 2 RUN TIME: 1252 Specimen Inquiry RUN USER: INTERFACE SPEC #: [id number] PATIENT: OTONIEL HENDERSON #[id number] (Continued) GROSS DESCRIPTION (Continued) 2.4 x 2 [...] A16-A18: Ring-shaped donut #2 (with blue sutures) CREDIT CARD SPECIALIST/th MICROSCOPIC DESCRIPTION Microscopic examination performed. Signed SIGNATURE ON FILE Nita Ashford 01/29/20 1252 END OF REPORT BASIC METABOLIC [id number] 08:29:00 Test Item Value Reference Range Interpretation [...] code 9.2 mg/dL 8.8-10.2 N = CA) [id number] 08:29:00 Test Item Value Reference Range Interpretation Comments MAGNESIUM (test code = MAG) 1.3 mg/dL 1.4-2.6 L CBC W/AUTO [id number] 08:04:00 Test Item Value Reference Range Interpretation [...] x10 3/uL 0.0-0.20 N Novel Coronavirus 2018 [id number] 14:20:00 Test Item Value Reference Range Interpretation Comments Novel Coronavirus NEGATIVE Positive r esults are 2018 nCoV (test indicative o f the presence code = COVID19) [id number] RNA, clinical correlation wit h patient historyand [...] VERIFIEDbyP.LAB.RS, on 01/26/20, @ 1934.- XR ABDOMEN [id number] 14:18:00Patient Name: OTONIEL HENDERSON Unit No: [id number] EXAMS: CPT CODE: [id number] XR ABDOMEN 1V 69521 Abdomen one view supine 01/28/2020 CLINICAL INDICATION: [...] (1418) by:[email or web address] Printed Date/Time: 01/28/2020 (1421) [facility]: José Antonio Zamora MD [address] : 1960 Age: 59 Sex: [place] [id number] Loc: P.0733 1 Exam Date: 01/28/2020 Status: ADM IN PH: FAX: PAGE 1 Signed ReportCOMPREHENSIVE METABOLIC [id number] 07:39:00 Test Item Value Reference Range Interpretation [...] 45-120 N PHOSPHATASE (test code = ALKP) [id number] 07:39:00 Test Item Value Reference Range Interpretation Comments MAGNESIUM (test code = MAG) 1.4 mg/dL 1.4-2.6 N CBC W/AUTO [id number] 07:12:00 Test Item Value Reference Range Interpretation [...] = BA#) 0.10 x10 3/uL 0.0-0.20 N [id number] 15:08:00 Test Item Value Reference Range Interpretation Comments LITHIUM (test 0.5 mmol/L 0.6-1.2 L code = LITH) Detection Limit = 0.1 <0.1 indicate s None DetectedPerform ed At: [facility] [id number] So MD Ph:[phone] [id number] 15:08:00 Test Item Value Reference Range Interpretation Comments LITHIUM (test 0.5 mmol/L 0.6-1.2 L code = LITH) Detection Limit = 0.1 <0.1 indicate s None DetectedPerform ed At: [facility] [address] [id number] So MD Ph:[phone] Novel Coronavirus 2019 [id number] 07:11:00 Test Item Value Reference Range Interpretation [...] PHOSPHATASE (test code = ALKP) CBC W/AUTO [id number] 04:21:00 Test Item Value Reference Range Interpretation [...] 3/uL 0.0-0.20 N - CT ABD PELVIS [id number] 09:58:00Patient Name: OTONIEL HENDERSON Unit No: [id number] EXAMS: CPT CODE: [id number] CT ABD PELVIS W/CONT 21443 CT abdomen and pelvis with IV contrast. [...] renal cyst. Additional findings as above. [facility] VAR[facility] Norbert William MD [address] DOB: 1960 Age: 59 Sex: M [place] [id number] Loc: P.0723 1 Exam Date: 01/26/2020 Status: ADM IN PH: FAX: PAGE 1 Signed Report (CONTINUED) Patient Name: OTONIEL HENDERSON Unit No: [id number] EXAMS: CPT CODE: [id number] CT ABD PELVIS W/CONT 22274 <Continued> at 0958 Reported and signed by: OTONIEL ROSSI M.D. CC: Cristopher Doty MD; Norbert William MD Technologist: ANTONIO Martin(R)(CT) CTDI: 11.68 DLP: 602 Trscr Dt/Tm: 01/26/2020 (0958) by:[email or web address] Printed Date/Time: 01/26/2020 (1001)[facility] VAR[facility] - Norbert William MD [address]: 1960 Age: 59 Sex: M [place] [id number] Loc: P.0723 1 Exam Date: 01/26/2020 Status: ADM IN PH: FAX: PAGE 2 Signed ReportCOMPREHENSIVE METABOLIC [id number] 05:50:00 Test Item Value Reference Range Interpretation [...] PHOSPHATASE (test code = ALKP) CBC W/AUTO [id number] 04:55:00 Test Item Value Reference Range Interpretation [...] 0.15 x10 3/uL 0.0-0.20 N COMPREHENSIVE METABOLIC [id number] 18:44:00 Test Item Value Reference Range Interpretation [...] N PHOSPHATASE (test code = ALKP) PROTHROMBIN [id number] 18:32:00 Test Item Value Reference Range Interpretation [...] 2.5-3.5recurren t systemic emboli sm. CBC W/AUTO [id number] 18:26:00 Test Item Value Reference Range Interpretation [...]
[2021-10-28 16:29] LABS: Absolute Lymphocytes (CBC) 1.5 K/uL (0.7-4.9); Hematocrit 36.6 % (39.6-49.0); Lymphocytes % 15.2 % (15.3-44.8); MPV 8.3 fL (7.6-11.3); RBC Red Blood Cell Count 4.21 M/uL (4.33-5.43)
[2021-10-28] MEDS ORDERED: LEVALBUTEROL 1.25 MG/3 ML NEB ONE (16:34)
[2021-10-28 16:44] LABS: Protime INR 0.94
[2021-10-28 16:50] LABS: Potassium 3.5 mmol/L (3.5-5.1)
[2021-10-28 17:19] LABS: SARS-COV-2 RT PCR NEGATIVE (NEGATIVE)
--- NOTE | 2021-10-28 17:48 | RAD REPORT ---
EXAM DESCRIPTION: RAD - Chest Single View - 10/28/2021 5:29 pm CLINICAL HISTORY: Cough;Dyspnea COMPARISON: Chest Single View dated 08/29/2021; Chest Single View dated 08/17/2021; Chest Single View dated 08/10/2021; Chest Single View dated 06/23/2021 FINDINGS: Lines: Loop recorder. Lungs: No evidence of edema or pneumonia. Pleural: No significant pleural effusions or pneumothorax. Cardiac: The heart size is within normal limits. Bones: No acute fractures. Remote left-sided rib fractures. Other: IMPRESSION: No acute cardiopulmonary disease.
[2021-10-28] MEDS ORDERED: AZITHROMYCIN 250 MG TAB ONE (18:11)
[2021-10-28] MEDS ORDERED: METHYLPREDNISOLONE 125 MG INJ ONE (18:11)
--- NOTE | 2021-10-28 18:11 | EDPHYS ---
Physician Documentation [facility] Name: Gregory Dumont Age: 61 yrs Sex: Male : 1960 Arrival Date: 10/28/2021 Time: 13:51 Bed 13 Private MD: ED Physician Cameron Avery HPI: 10/28 16:14 This 61 yrs old Male presents to ER via EMS with complaints of Cough, Shortness Of rn Breath. 16:14 The patient or guardian reports cough, difficulty breathing. Onset: The rn symptoms/episode began/occurred 1 week(s) ago. Severity of symptoms: At their worst the symptoms were mild, in the emergency department the symptoms are unchanged. Modifying factors: The symptoms are alleviated by nothing, the symptoms are aggravated by nothing. Associated signs and symptoms: Pertinent positives: rhinorrhea, Pertinent negatives: chest pain. The patient has experienced similar episodes in the past. The patient has not recently seen a physician. Historical: - Home Meds: 13:53 gabapentin 400 mg Oral cap [Active]; jl7 - PMHx: 13:53 adhd; Anxiety; Bipolar disorder; Hypertensive disorder; strokes x 3; jl7 - PSHx: 13:53 knee replacements; jl7 - Immunization history:: Adult Immunizations up to date, Client reports receiving the 2nd dose of the Covid vaccine. - Social history:: Smoking status: unknown. - Family history:: not pertinent. - Hospitalizations: : No recent hospitalization is reported. ROS: 16:14 Constitutional: Negative for fever, chills, and weight loss, Eyes: Negative for injury, rn pain, redness, and discharge, Neck: Negative for injury, pain, and swelling, Cardiovascular: Negative for chest pain, palpitations, and edema, Respiratory: Positive for cough and shortness of breath Abdomen/GI: Negative for abdominal pain, nausea, vomiting, diarrhea, and constipation, Back: Negative for injury and pain, : Negative for injury, bleeding, discharge, and swelling, MS/Extremity: Negative for injury and deformity, Skin: Negative for injury, rash, and discoloration, Neuro: Negative for headache, weakness, numbness, tingling, and seizure. Exam: 16:14 Constitutional: Thin male, disheveled, no acute distress Head/Face: Normocephalic, rn atraumatic. Eyes: Periorbital areas with no swelling, redness, or edema. ENT: No stridor, moist mucous membranes Cardiovascular: Regular rate and rhythm. No pulse deficits. Respiratory: Mild tachypnea. Faint wheezing with wet cough, no retractions Abdomen/GI: Soft, non-tender Skin: Warm, dry, no cyanosis MS/ Extremity: Pulses equal, no cyanosis. Neurovascular intact. Neuro: Awake and alert, GCS 15, speech is very difficult to understand but does answer yes or no questions. Moves all 4 extremities. Patient able to wheel himself in and out of room. Patient using phone speaking with . Vital Signs: 13:51 BP 113 / 75; Pulse 80; Resp 18; Temp 97.7; Pulse Ox 96% on R/A; jl7 16:48 BP 113 / 74; Pulse 60; Resp 18; Pulse Ox 100% ; jh6 17:30 BP 107 / 76; Pulse 60; Resp 20; Pulse Ox 98% on 2 lpm NC; jh6 18:40 BP 126 / 80; Pulse 71; Resp 20; Pulse Ox 98% on 2 lpm NC; jh6 MDM: 15:33 Patient medically screened. rn 17:52 Differential Diagnosis: Bronchitis Influenza Upper Respiratory Infection Viral Syndrome rn Pneumonia Other COVID, FLU, COPD. Data reviewed: vital signs, nurses notes, lab test result(s), radiologic studies, plain films, and as a result, I will discharge patient. Counseling: I had a detailed discussion with the patient and/or guardian regarding: the historical points, exam findings, and any diagnostic results supporting the discharge/admit diagnosis, lab results, radiology results, the need for outpatient follow up, to return to the emergency department if symptoms worsen or persist or if there are any questions or concerns that arise at home. Response to treatment: the patient's symptoms have markedly improved after treatment, and as a result, I will discharge patient. 10/28 15:42 Order name: BMP; Complete Time: 17:20 rn 10/28 15:42 Order name: Blood Culture Adult (2) rn 10/28 15:42 Order name: CBC with Diff; Complete Time: 17:20 rn 10/28 15:42 Order name: NT PRO-BNP; Complete Time: 17:20 rn 10/28 15:42 Order name: PT-INR; Complete Time: 17:20 rn 10/28 15:42 Order name: Ptt, Activated; Complete Time: 17:20 rn 10/28 15:42 Order name: XRAY CXR (1 view); Complete Time: 17:51 rn 10/28 15:42 Order name: EKG; Complete Time: 15:44 rn 10/28 15:43 Order name: Procalcitonin; Complete Time: 17:20 rn 10/28 17:49 Order name: COVID-19/FLU A+B/RSV; Complete Time: 17:51 EDMS 10/28 15:42 Order name: Cardiac monitoring; Complete Time: 16:09 rn 10/28 15:42 Order name: EKG - Nurse/Tech; Complete Time: 16:09 rn 10/28 15:42 Order name: IV Saline Lock; Complete Time: 16:36 rn 10/28 15:42 Order name: Labs collected and sent; Complete Time: 16:36 rn 10/28 15:42 Order name: O2 Per Protocol; Complete Time: 16:36 rn 10/28 15:42 Order name: O2 Sat Monitoring; Complete Time: 16:36 rn Administered Medications: 16:30 Drug: Xopenex (levalbuterol) 1.25 mg Route: Inhalation; jh6 18:19 Drug: SOLU-Medrol (methylPrednisoLONE) 125 mg Route: IVP; Site: left forearm; 6 18:41 Follow up: Response: No adverse reaction 6 18:19 Drug: Zithromax (azithromycin) 500 mg Route: PO; jh6 18:41 Follow up: Response: No adverse reaction [facility] Disposition Summary: 10/28/21 18:10 Discharge Ordered Location: Home rn Problem: new rn Symptoms: have improved rn Condition: Stable rn Diagnosis - Acute bronchitis due to respiratory syncytial virus rn Followup: rn - With: Private Physician - When: As needed - Reason: Recheck today's complaints, Re-evaluation by your physician Discharge Instructions: - Discharge Summary Sheet rn - Acute Bronchitis, Adult rn - Respiratory Syncytial Virus Infection, Adult rn Forms: - Medication Reconciliation Form rn - Thank You Letter rn - Antibiotic tavern keeper - Prescription Opioid Use rn Prescriptions: - albuterol sulfate 90 mcg/actuation Inhalation HFA aerosol inhaler - inhale 2 puff by INHALATION route every 4-6 hours; 1 Inhaler; Refills: 0, rn Product Selection Permitted - Prednisone 20 mg Oral Tablet - take 3 tablets by ORAL route once daily for 5 days; 15 tablet; Refills: 0, rn Product Selection Permitted - Zithromax Z-Casimiro 250 mg Oral Tablet - take 1 tablet by ORAL route as directed for 5 days Day 1 - take two (2) tablets rn one time. Day 2, 3, 4 , 5 take one (1) tablet once daily.; 6 tablet; Refills: 0, Product Selection Permitted Signatures: Dispatcher [employer] EDMS Cameron Avery MD MD rn Leal, Jahala RN RN jl7 Marilyn Chávez RN RN jh6 Corrections: (The following items were deleted from the chart) 17:49 15:43 COVID-19/FLU A+B+MOL.LAB.BRZ ordered. EDMS EDMS 17:49 17:20 COVID-19/FLU A+B+MOL.LAB.BRZ reviewed. rn EDMS
--- NOTE | 2021-10-28 18:11 | ER ---
Nurse's Notes [facility] Name: Gregory Dumont Age: 61 yrs Sex: Male : 1960 Arrival Date: 10/28/2021 Time: 13:51 Bed 13 Private MD: Diagnosis: Acute bronchitis due to respiratory syncytial virus Presentation: 10/28 13:51 Chief complaint: EMS states: per [facility] pt states that the pt has had cough and jl7 SOB x1 week. Pt has previous stroke hx that causes verbal deficits; he can answer yes and no questions. Pt has the hx of previous stroke and HTN. Coronavirus screen: Vaccine status: Patient reports receiving the 2nd dose of the covid vaccine. Client denies travel out of the [place] in the last 14 days. Client presents with at least one sign or symptom that may indicate coronavirus-19. Standard/surgical mask placed on the client. Ebola Screen: Patient negative for fever greater than or equal to 101.5 degrees Fahrenheit, and additional compatible Ebola Virus Disease symptoms Patient denies exposure to infectious person. Patient denies travel to an Ebola-affected area in the 21 days before illness onset. Initial Sepsis Screen: Does the patient meet any 2 criteria? No. Patient's initial sepsis screen is negative. Does the patient have a suspected source of infection? No. Patient's initial sepsis screen is negative. Risk Assessment: Do you want to hurt yourself or someone else? Patient reports no desire to harm self or others. Onset of symptoms was October 21, 2020. 13:51 Method Of Arrival: EMS: [facility] 13:51 Acuity: MARION 3 jl7 Triage Assessment: 13:53 General: Appears in no apparent distress. comfortable, slender, unkempt, Behavior is jl7 calm, cooperative, appropriate for age. Pain: Denies pain. Respiratory: Reports shortness of breath cough that is Onset: The symptoms/episode began/occurred x1 week. 13:54 Respiratory: the patient has mild shortness of breath. jl7 Historical: - Home Meds: 13:53 gabapentin 400 mg Oral cap [Active]; jl7 - PMHx: 13:53 adhd; Anxiety; Bipolar disorder; Hypertensive disorder; strokes x 3; jl7 - PSHx: 13:53 knee replacements; jl7 - Immunization history:: Adult Immunizations up to date, Client reports receiving the 2nd dose of the Covid vaccine. - Social history:: Smoking status: unknown. - Family history:: not pertinent. - Hospitalizations: : No recent hospitalization is reported. Screenin:54 Abuse screen: Denies threats or abuse. Denies injuries from another. Nutritional jl7 screening: No deficits noted. Tuberculosis screening: No symptoms or risk factors identified. Fall Risk Fall in past 12 months (25 points). Secondary diagnosis (15 points) impaired mobility. Assessment: 13:54 Cardiovascular: Rhythm is regular. Respiratory: Airway is patent Respiratory effort is jl7 even, unlabored, Breath sounds are clear. Vital Signs: 13:51 BP 113 / 75; Pulse 80; Resp 18; Temp 97.7; Pulse Ox 96% on R/A; jl7 16:48 BP 113 / 74; Pulse 60; Resp 18; Pulse Ox 100% ; jh6 17:30 BP 107 / 76; Pulse 60; Resp 20; Pulse Ox 98% on 2 lpm NC; jh6 18:40 BP 126 / 80; Pulse 71; Resp 20; Pulse Ox 98% on 2 lpm NC; 6 ED Course: 13:51 Patient arrived in ED. as 13:53 Triage completed. jl7 13:54 Patient has correct armband on for positive identification. jl7 13:55 Arm band placed on right wrist. Patient placed in waiting room. jl7 15:30 Marilyn Chávez, RN is Primary Nurse. 6 15:33 Cameron Avery MD is Attending Physician. rn 16:09 Patient has correct armband on for positive identification. Placed in gown. Bed in low mh5 position. Warm blanket given. Pillow given. telemetry monitor on. Pulse ox on. NIBP on. 16:10 EKG done, COVID swab sent to lab. [facility] 16:36 Initial lab(s) drawn, by ED staff, sent to lab. EKG done, by ED staff, reviewed by Betty Avery MD COVID swab sent to lab. 16:37 Procalcitonin Sent. [facility] 17:28 XRAY CXR (1 view) In Process Unspecified. EDMS 18:41 No provider procedures requiring assistance completed. IV discontinued, intact, [facility] bleeding controlled, No redness/swelling at site. Pressure dressing applied. Administered Medications: 16:30 Drug: Xopenex (levalbuterol) 1.25 mg Route: Inhalation; [facility] 18:19 Drug: SOLU-Medrol (methylPrednisoLONE) 125 mg Route: IVP; Site: left forearm; [facility] 18:41 Follow up: Response: No adverse reaction [facility] 18:19 Drug: Zithromax (azithromycin) 500 mg Route: PO; 6 18:41 Follow up: Response: No adverse reaction [facility] Outcome: 18:10 Discharge ordered by . rn 18:42 Discharged to home ambulatory. 6 18:42 Condition: stable 18:42 Discharge instructions given to Instructed on discharge instructions, follow up and referral plans. Demonstrated understanding of instructions, follow-up care, medications, Prescriptions given X 3. 18:53 Patient left the ED. [facility] Signatures: Dispatcher [employer] Padmini Casey Roman, MD MD rn Martinez, Maria 5 Sherman Brown RN RN jl7 Marilyn Chávez RN RN jh6 Corrections: (The following items were deleted from the chart) 17:49 16:37 COVID-19/FLU A+B+MOL.LAB.BRZ drawn and sent. 5 VLADISLAV
[2021-10-28 19:35] VITALS: TEMP 97.7
[2021-10-28 19:42] VITALS: BP 126/80; O2SAT 98
== END 2021-10-28 18:53 | disposition home or self-care (01) ==
LOC: ER 13:50
DX: J20.5 Acute bronchitis due to respiratory syncytial virus (principal); Z20.822 Contact with and (suspected) exposure to COVID-19; I10 Essential (primary) hypertension
CPT/HCPCS: 93005; 87040 ×2; 85025; 80048; 36415; 87205 ×2; 85610; 85730; 84145; 83880; 0241U; 71045; 96374; 99285; J2930

== ENCOUNTER 2022-01-02 19:12 | Observation (INO) | payer OTHER ==
--- OUTSIDE RECORDS SUMMARY | 2022-01-02 19:21 | XMS REPORT | Continuity of Care Document ---
:1960 Author Organization [facility] t Address [address] [place] [address] Care Team Providers Name Role Phone Jie CALDWELL Primary Care Physician EVERETT Attending Clinician Unavailable [id number] Attending Clinician Unavailable Saray Gomes Attending Clinician Unavailable Steffi Gilbert Attending Clinician Unavailable Jie CALDWELL Attending Clinician Eric_Iza Attending Clinician Unavailable A_Byrd Attending Clinician Unavailable Lucio Attending Clinician Unavailable Soren Attending Clinician Unavailable [id number] Admitting Clinician Unavailable Physician, Primary or Family Admitting Clinician UnavailSteffi Guo Admitting Clinician Unavailable Eric_Iza Admitting Clinician Unavailable A_Byrd Admitting Clinician Unavailable Payers Payer Name Policy Type Policy Number Effective Date Expiration Date S [facility] [id number] 2021 2022 STARPLUS OON 00:00:00 00:00:00 EXCEPT [facility] MEDICARE [place]: [id number] [employer] [facility] [id number] 2020 COMMUNITY PLAN - 00:00:00 [place]MEDICAID HMO) Problems Condition Condition Condition Status Onset Resolution Last Treating Co mments Source Name Details Category Date Date Treatment Clinician Date Dyslipidem Dyslipidem Disease Active U nivers ia ia 2-23 ity of 00:00: [place] 00 Medical Branch Speech and Speech and Disease Active U nivers language language 2-23 ity of deficit [place] Medical effect of effect of Bran ch stroke stroke Medicare Medicare Disease Active Unive rs annual annual 2-08 ity of wellness wellness 00:00: [place] visit, visit, 00 Medical initial initial Branch 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 2-04 it y of 00:00: [place] 00 Medical Branch Essential Essential Disease Active Uni vers hypertensi hypertensi 2-04 it y of on on 00:00: [place] 00 Medical Branch Nicotine Nicotine Disease Active Unive rs dependence dependence 2-04 it y of with with 00:00: [place] current current 00 Medical use use Branch Chronic Chronic Disease Active Univers bilateral bilateral 2-04 ity of low back low back 00:00: [place] pain with pain with 00 Medi diogenes bilateral bilateral Bran ch sciatica sciatica Prediabete Prediabete Disease Active U nivers s s 2-04 ity of 00:00: [place] 00 Medical Branch Pulmonary Pulmonary Disease Active Uni vers embolism, embolism, 6-05 [place]y of bilateral bilateral 00:[place] Cerebrovas Cerebrovas Disease Active U nivers cular cular 9-24 ity of disease disease 00:00: [place] 00 Medical Branch Chest pain Chest pain Disease Active U nivers 9-23 ity of 00:00: [place] 00 Medical Branch Acute Acute Disease Active Univers right right 9-23 ity of arterial arterial 00:00: [place] ischemic ischemic 00 Medica l stroke, stroke, Branch middle middle cerebral cerebral artery artery (MCA) (MCA) Tobacco Tobacco Disease Active Univers abuse abuse 4-16 ity of 00:00: [place] [facility] Total knee Total knee Disease Active 2015-10 U nivers replacemen replacemen 0-24 it y of t status t status 00:00: [place] [facility] Right knee Right knee Disease Active U nivers pain pain 9-20 ity of 00:00: [place] [facility] Cerebral Cerebral Disease Active Overview: Un cecile thrombosis thrombosis 3-17 Formattin ity of 00:00: g of this note Medical might be Branch different from the original. ICD10 Diagnosis Term Group Underwriter Utility Seasonal Seasonal Diagnosis Active [facility] allergic [...] knees both knees l Outpati ent Clinics Allergies, Adverse Reactions, Alerts Allergy Allergy Status Severity Reaction(s) Onset Inactive Treating Comm ents Source Name Type Date Date Clinician No Known DA Active U 0 [facility] 10-30 [place] 00:00: Patel [address] [place] [address] No Known DA Active U 0 [facility] 10-30 [place] 00:: [address] No Known DA Active U 0 [facility] 01-24 [place] 00:00: [facility] 00 are [facility] No Known DA Active U 0 [facility]ie 01-24 [place] 00:00: [facility] 00 are [facility] Social History Social Habit Start Date Stop Date Quantity Comments Source History of tobacco Cigar Smoker Univ ersity of use [place] [facility] History [facility] o f Alcohol Frequency [facility] edical Branch History [facility] o f Alcohol Std Drinks [facility] History [facility] o f Alcohol Binge [place] Medic al Branch Exposure to Not sure [place] of SARS-CoV-2 (event) [facility] Sex Assigned [facility] Medicine Alcohol intake 2021-12-24 2021-12-24 0 /d University of 00:00:00 00:00:00 [facility] Education 2021-03-21 2021-03-21 14 University of 00:00:00 00:00:00 [facility] Cigarettes smoked 2016-06-11 2016-06-11 Univers ity of current (pack per 00:00:00 00:00:00 [facility] ) - Reported Branch Cigarette 2016-06-11 2016-06-11 University of pack-years 00:00:00 00:00:00 [facility] Tobacco use and 2016-06-11 2016-06-11 Never used Universit y of exposure 00:00:00 00:00:00 [facility] Alcohol Comment 2016-06-11 2016-06-11 sober for 20 Univers ity of 00:00:00 00:00:00 years [facility] Smoking Status Start Date Stop Date Source Unknown if ever smoked [facility] Current some day smoker 2016-06-11 00:00:00 [facility] Medications Ordered Filled Start Stop Current Ordering Indication Dosage Frequency Signature Comments Components Source Medication Medication Date Date Medication? Clinician (SIG) Name Name sildenafiL Yes [id number] 25mg Take 1 Univers (VIAGRA) 25 3-09 tablet by ity of mg tablet 00:00[place] 00 needed Medical (Erectile Branch Dsyfynctio n). Take 1 Take 30 mins prior to being intimate. Do not exceed 50mg in 24H. Do not mix with any other medication traMADoL Yes [id number] 1{tbl} Take 1 Univers 100 mg Tab 3-09 tablet by ity of 00:00: mouth 3 [place] 00 (three) Medical times Branch daily as needed for Pain (scale 7-10). lisinopriL- Yes [id number] .5{tbl} Take 0.5 Univers hydrochloro 3-09 tablets by it y of thiazide 00:00: mouth [place] 10-12.5 mg 00 daily. Medical per tablet Branch carvediloL Yes [id number] 1.5625m Take 0.5 Univers (COREG) 3-09 g tablets by ity of 3.125 mg 00:00: mouth 2 [place] tablet 00 (two) Medical times Branch daily with meals. tiZANidine Yes [id number] 2mg Take 1 Univers 2 mg tablet 3-09 tablet by ity of 00:00: mouth [place] 00 every 8 Medical (eight) Branch hours as needed (muscle spasms). diclofenac Yes [id number] 75mg Take 1 Univers 75 mg EC 2-25 05 tablet by ity of tablet 00:00: mouth 2 [place] 00 (two) Medical times Branch daily with meals. nicotine 7 Yes [id number] 1{patch Apply 1 Univers mg/24 hr 2-23 } Patch to ity of patch 00:00: area(s) [place] 00 every 24 Medical (twenty-fo Branch ur) hours. Apply 21mg patch daily x 6 weeks; then apply 14mf patch daily x 2 weeks; then apply 7mg patch daily x 2 weeks. Stop smoking on initiation of therapy nicotine 21 Yes [id number] 1{patch Apply 1 Univers mg/24 hr 2-23 } Patch to ity of patch 00:00: area(s) [place] 00 daily. Medical Apply 21mg Branch patch daily x 6 weeks; then apply 14mf patch daily x 2 weeks; then apply 7mg patch daily x 2 weeks. Stop smoking on initiation of therapy nicotine 14 Yes [id number] 1{patch Apply 1 Univers mg/24 hr 2-23 } Patch to ity of patch 00:00: area(s) [place] 00 every 24 Medical (twenty-fo Branch ur) hours. Apply 21mg patch daily x 6 weeks; then apply 14mf patch daily x 2 weeks; then apply 7mg patch daily x 2 weeks. Stop smoking on initiation of therapy clopidogreL Yes [id number] 75mg Take 1 Univers 75 mg 2-07 tablet by ity of tablet 00:00: mouth [place] 00 daily. Medical Branch carvediloL 2021- No [id number] 3.125mg Take 1 Univers (COREG) 2-07 03-09 tablet by ity of 3.125 mg 00:00: 00:00 mouth 2 [place] tablet 00 :00 (two) Medical times Branch daily with meals. atorvastati Yes [id number] 80mg Take 1 Univers n 80 mg 2-04 tablet ity of tablet 00:00: through [place] 00 enteral Medical tube at Branch bedtime. amLODIPine Yes [id number] 2.5mg Take 1 Univers 2.5 mg 2-04 tablet by ity of tablet 00:00: mouth [place] 00 daily. Medical Branch aspirin 81 0 Yes [id number] 81mg Take 1 U nivers mg chewable 2-04 tablet by ity of tablet 00:00: mouth [place] 00 daily. Medical Branch gabapentin Yes [id number] 400mg Take 1 Univers 400 mg 2-04 capsule by ity of capsule 00:00: mouth 3 [place] 00 (three) Medical times Branch daily. Diclofenac Yes [id number] Apply to Univers Sodium 2-04 area(s) 4 ity of (VOLTAREN) 00:00: (four) [place] 1 % gel 00 times Medical daily. Branch Apply 4 g qid lisinopriL- 2- No [id number] 1{tbl} Take 1 Univers hydrochloro 2-04 - tablet by it y of thiazide 00:00: 00:00 mouth [place] 10-12.5 mg 00 :00 daily. Medical per tablet Branch acetaminoph 2021- No [id number] 650mg Take 1 Univers en (TYLENOL 2-04 -09 tablet by it y of ARTHRITIS 00:00: 00:00 mouth [place] PAIN) 650 00 :00 every 8 Medical mg CR (eight) Branch tablet hours as needed for Pain. tiZANidine 2021- No [id number] 2mg Take 1 Univers 2 mg tablet 2-01 17-09 tablet by it y of 00:00: 00:00 mouth [place] 00 :00 every 8 Medical (eight) Branch hours as needed (muscle spasms). hydrOXYzine 2020-10- No [id number] 50mg Take 1 Univers 50 mg 1-10 -09 tablet by ity of tablet 00:00: 00:00 mouth [place] 00 :00 every 8 Medical (eight) Branch hours as needed for Itching or Anxiety. cyclobenzap 2020-10- No [id number] 10mg Take 1 Univers rine 10 mg 1-10 12-23 tablet by ity of tablet 00:00: 00:00 mouth 3 [place] 00 :00 (three) Medical times Branch daily. risperiDONE Yes 1mg Take 1 mg U nivers 1 mg tablet 9-15 by mouth 3 it y of 00:00: (three) [place] 00 times Medical daily. Branch fluticasone Yes Univer s propionate 7-27 ity of 50 00:00: [place] mcg/actuati 00 Medical on nasal Branch spray acetaminoph 2021- No [id number] 2{tbl} Take 2 U nivers en-codeine 2-15 12-23 tablets by it y of (TYLENOL-CO 00:00: 00:00 [place] DEINE #3) 00 :00 every 6 Medical 300-30 mg (six) Branch tablet hours as needed for Pain (scale 7-10). Indication s: acute pain Flonase Flonase Yes Na Gomes [address] [facility] 05-23 [facility] 00[facility] nostril [facility] l Outpati ent Clinics Immunizations Ordered Filled Immunization Date Status Comments [facility] e Immunization Name Name SARS-COV-2 COVID-19 2021-05-30 Completed Unive rsity of MODERNA VACCINE 00:00:00 [facility] SARS-COV-2 COVID-19 2021-03-18 Completed Unive rsity of MODERNA VACCINE 00:00:00 [facility] SARS-COV-2 COVID-19 2021-02-04 Completed Unive rsity of MODERNA VACCINE 00:00:00 [facility] Vital Signs Vital Name Observation Time Observation Value Comments Source Systolic blood 2021-12-23 16:52:00 104 mm[Hg] Univer sity of pressure [facility] Diastolic blood 2021-12-23 16:52:00 72 mm[Hg] Unive rsity of pressure [facility] Heart rate 2021-12-23 16:52:00 73 /min Universi ty [facility] Body temperature 2021-12-23 16:52:00 36.28 Terri Univ ersity [facility] Respiratory rate 2021-12-23 16:52:00 18 /min [facility] Body height 2021-12-23 16:52:00 180.3 cm [facility] Body weight 2021-12-23 16:52:00 85.276 kg [facility] BMI 2021-12-23 16:52:00 26.22 kg/m2 [facility] Oxygen saturation in 2021-12-23 16:52:00 95 /min [facility] Arterial blood by [facility] Pulse oximetry Branch Procedures Procedure Date / Time Performed Performing Clinician [facility] karen [id number] 2020-10-30 00:00:00 [facility] [id number] 2020-01-28 00:00:00 WEAMA.[email or web address] [facility] [id number] 2020-01-28 00:00:00 WEAMA.02 [facility] [id number] 2020-01-28 00:00:00 WEAMA.02 [facility] [id number] 2020-01-28 00:00:00 WEAMA.02 [facility] [id number] 2020-01-28 00:00:00 WEAMA.02 [facility] Plan of Care Planned Activity Planned Date Details Comments Source Future Scheduled Test COLON CANCER SCREENING: [facility] COLONOSCOPY [code = Medicine COLON CANCER SCREENING: COLONOSCOPY] Future Scheduled Test MEDICARE AWV [code = [facility] of MEDICARE AWV] Medicine Future Scheduled Test TETANUS SHOT (ADULT) [facility] [code = TETANUS SHOT Medicin e (ADULT)] Future Scheduled Test HEPATITIS C SCREENING [facility] [code = HEPATITIS C Medicine SCREENING] Future Scheduled Test HIV SCREENING [code = [facility] of HIV SCREENING] Medicine Future Scheduled Test FLU VACCINE > 6 MONTHS [facility] [code = FLU VACCINE > 6 Medi cine MONTHS] Encounters Start End Encounter Admission Attending Care Care Encounter Source Date/Time Date/Time Type Type Clinicians Facility Department ID 2022-01-01 Outpatient EVERETT [facility] [id number] [place] 15:24:56 [facility]ly [facility] 2021-11-13 Outpatient [facility] [id number] [place] 15:22:56 Health 2021-11-12 Outpatient 3 [id number] [facility] CVA [id number] [facility] 10:42:58 1002 2021-11-12 Outpatient 3 [id number] [facility] REF [id number] [facility] 10:40:46 0927 2021-11-11 Outpatient Gomes, Na STLMLC [facility] [id number] [facility] 11:17:41 [id number] [facility] 2021-11-11 Outpatient Gomes, Na STLMLC [facility] [id number] 11:00:18 [id number] [facility] 2021-11-11 Out[facility] Gomes[facility] [id number] 11:00:09 [id number] [facility] 2020-10-30 [facility] 12:19:00 [id number] [facility] 2020-01-28 Inpatient Mio Frances [facility] [id number] [facility] 16:09:00 [id number] [facility] 2020-01-25 Inpatient Mio Frances [facility] . [id number] [facility] 16:41:00 [facility] 2021-12-23 2021-12-23 Office [facility], [facility] [id number] Univers 10:40:00 11:29:29 Visit Marcial HANSEN [id number] kailash Cole [id number] Nichole GALLEGOS [id number] Nm dical NAL 044 [facility] 2021-06-10 2021-06-10 [id number] [place] 09:20:00 09:20:00 0825 [facility] 2021-06-03 2021-06-03 Outpatient A_Byrd MM MMG [id number] [place] 10:29:00 10:29:00 0818 [facility] 2020-10-31 2020-10-31 Outpatient DORIAN ValdesJOVANNI LABO [id number] [facility] 00:22:00 00:22:00 Oladipo [address] [facility] 2020-06-20 2020-06-20 [facility] [id number] 10:36:00 10:36:00 t [place] [employer] s - Drive [facility] Medicine l Medicine Outpati ent Clinics 2020-05-23 2020-05-23 [facility] [id number] 16:20:00 16:20:00 t [place] [employer] LuOpenText s - Drive [facility] l Medicine Outpati ent Clinics 2020-05-23 2020-05-23 [facility] [id number] 15:25:00 15:25:00 t [place] g[facility] s - Drive [facility] l Medicine Outpati ent Clinics 2020-01-28 2020-01-28 Outpatient Soren, [facility] RE[facility] [id number] [facility] 14:20:00 14:20:00 Cristopher [id number] [facility] 2020-01-01 2020-01-01 [facility] [id number] 16:10:00 16:10:00 t [place] g[place] [employer] - [employer] [facility] Medicine Outpati ent Clinics 2019-12-26 2019-12-26 [facility] [id number] 08:44:00 08:44:00 t [place] [facility] [employer] - [employer] [facility] Medicine l Medicine Outpati ent Clinics 2019-12-05 2019-12-05 [facility] [id number] 15:07:00 15:07:00 t [place] [employer] - [employer] [facility] Medicine l Medicine Outpati ent Clinics 2019-09-24 2019-09-24 [facility] [id number] 09:27:00 09:27:00 t [place] g[employer] [place] - Drive [facility] Medicine l Medicine Outpati ent Clinics 2019-09-06 2019-09-06 [facility] [id number] 12:00:00 12:00:00 t [place] g[employer] s - Drive [facility] l Medicine Outpati ent Clinics 2019-08-18 2019-08-18 [facility] [id number] 17:55:00 17:55:00 t [place] [employer] [place] - Drive [facility] l Medicine Outpati ent Clinics 2019-08-01 2019-08-01 [facility] [id number] 09:00:00 09:00:00 t [employer] [facility] Medicine l Medicine Outpati ent Clinics 2019-06-07 2019-06-07 [facility] [id number] 11:20:00 11:20:00 t [employer] [facility] l Medicine Outpati ent Clinics 2019-01-04 2019-01-04 [facility] [id number] 14:04:00 14:04:00 t [employer] [facility] Medicine l Medicine Outpati ent Clinics 2018-11-23 2018-11-23 [facility] [id number] [facility] 09:15:00 09:15:00 t [facility] l Outpati ent Clinics 2018-11-20 2018-11-20 [facility] [id number] 10:13:00 10:13:00 t [employer] [facility] Medicine l Medicine Outpati ent Clinics 2018-11-15 2018-11-15 [facility] [id number] [facility] 15:15:00 15:15:00 t [employer] [facility] Medicine l Medicine Outpati ent Clinics 2018-10-09 2018-10-09 [facility] [id number] 10:19:00 10:19:00 t [employer] [facility] Medicine l Medicine Outpati ent Clinics 2018-06-02 2018-06-02 [facility] [id number] 16:46:00 16:46:00 t [employer] [facility] Medicine l Medicine Outpati ent Clinics 2018-05-11 2018-05-11 [facility] [id number] 09:45:00 09:45:00 t [employer] [facility] Medicine Outpati ent Clinics Results Test Description Test Time Test Comments Results Result Comments Source HOMOCYSTEINE PROFILE 2020-11-01 10:10:00 Test Item Value Reference Range Interpretation Comme nts HOMOCYSTEINE (test code = 15.3 umol/L 0.0-14.5 A Pe rformed At: HD [facility] HOMOCY) [id number] [place], [place] [id number] So MD Ph:[phone] RAPID PLASMA [id number] 06:11:00 Test Item Value Reference Range Interpretation Comments RAPID PLASMA REAGIN Non Reactive Non Reactive Performe d At: HD (test code = RPR) [facility] Ho [id number] [place], [place] [id number] jyoti So MD Ph:[phone] - CT HEAD/BRAIN W/O [id number] 14:36:00 [facility] 1960 Sex: M Name: OTONIEL HENDERSON [facility] : 1960 Age/S: 60 / M [id number] [facility] [place] Unit #: [id number] Loc:[place] [address] Phys: Ximena Valdes MD Acct: [id number] Dis Date: Status: ADM IN PHONE #: [phone] Exam Date: 10/31/2020 1420 FAX #: Reason: CVA EXAMS: CPT: [id number] CT HEAD/BRAIN W/O CONT [id number] HISTORY: CVA. CT brain, unenhanced. Reformatted sagittal [...] (R)(CT) CTDI: DLP: Trnscb Date/Time: 10/31/2020 (1436) [email or web address] Orig Print D/T: S: 10/31/2020 (1439) PAGE 1 Signed ReportSED [id number] 10:34:00 Test Item Value Reference Range Interpretation Comments SED RATE (test code = SEDW) 7 mm/hr 0-15 SED RATE [id number] 10:33:00 Test Item Value Reference Range Interpretation Comments SED RATE WESTERGREN (test code = 7 mm/hr 0-15 N SEDW) [id number] 07:00:00 Test Item Value Reference Range Interpretation Comments GLYCOSYLATED HEMOGLOBIN (HA1C) 5.5 % A1C 0.0-5.7 N (test code = GLYHGB) ESTIMATED AVERAGE GLUCOSE (test 111 MG/DLest code = EAG) BASIC METABOLIC [id number] 06:55:00 Test Item Value Reference Range Interpretation [...] WITHIN 1 HR AND FREEZE SERUM PROMPTLY.HOMOCYSTEINE [id number] 06:55:00 Test Item Value Reference Range Interpretation Comments HOMOCYSTEINE (test code = HOMOCY) mcMOL/L <9 Comment: FASTING IN AM PATIENT SHOULD BE FASTING OVERNIGHT 10-12 HRS. TAKE BLOOD TO LABASAP. MUST SEPAPATE SERUM FROM CELLS WITHIN 1 HR AND FREEZE SERUM PROMPTLY.CBC W/AUTO [id number] 06:41:00 Test Item Value Reference Range Interpretation [...] NO DIFF/SCN CRITERIA = MDIFF) GLUCOSE BEDSIDE [id number] 23:18:00 Test Item Value Reference Range Interpretation Comments GLUCOSE BEDSIDE TESTING (test code = 94 mg/dL 70-110 N GLUBED) COVID 19 INHOUSE [id number] 15:04:00 Test Item Value Reference Range Interpretation Comments COVID 19 INHOUSE AG NEGATIVE Negative Per manu facturer, (test code = negative result s should [id number]) be treated aspr esumptive and, if inconsi [...] with COVID-19. UA RFLX MICR CULT IF [id number] 14:02:00 Test Item Value Reference Range Interpretation [...] UACULT) Indication for culture: Dysuria/Frequency- CT ANGIO [id number] 13:00:00 [facility] : 1960 Sex: M Name: OTONIEL HENDERSON [facility] : 1960 Age/S: 60 / M [id number] [address] [place] Unit #: [id number] Loc:[place] [address] Phys: Anjum Rivera MD Acct: [id number] Dis Date: Status: PRE ER PHONE #: [phone] Exam Date: 10/30/2020 1235 FAX #: Reason: slurred speech EXAMS: CPT: [id number] CT ANGIO NECK [id number]: - CT ANGIO HEAD, - CT ANGIO [...] 1 Signed Report (CONTINUED) Name: OTONIEL HENDERSON [facility] : 1960 Age/S: 60 / M [id number] [facility] [place] Unit #: [id number] Loc: [place] [address] Phys: Anjum Rivera MD Acct: [id number] Dis Date: Status: PRE ER PHONE #: [phone] Date: 10/30/2020 1230 FAX #: Reason: slurred speech EXAMS: CPT: [id number] ANGIO NECK 22509 <Continued> stenosis. Findings were personally discussed with [...] (1303) PAGE 2 Signed Report- CT ANGIO [id number] 13:00:00 [facility] : 1960 Sex: M Name: OTONIEL HENDERSON [facility] : 1960 Age/S: 60 / M [id number] [address] [place] Unit #: [id number] Loc:[place] [address] Phys: Anjum Rivera MD Acct: [id number] Dis Date: Status: PRE ER PHONE #: [phone] Exam Date: 10/30/2020 1233 FAX #: Reason: slurred speech EXAMS: CPT: [id number] CT ANGIO HEAD [id number]: - CT ANGIO HEAD, - CT ANGIO [...] 1 Signed Report (CONTINUED) Name: [facility]ENDERSON [facility] 1960 Age/S: 60 / M [id number] [facility] [place] Unit #: [id number] Loc: [place] [address] Phys: Anjum Rivera MD Acct: [id number] Dis Date: Status: PRE ER PHONE #: [phone] Date: 10/30/2020 1233 FAX #: Reason: slurred speech EXAMS: CPT: [id number] ANGIO HEAD [id number] <Continued> stenosis. Findings were personally discussed with [...] (1300) [email or web address] Orig Print D/T: S: 10/30/2020 (1303) PAGE 2 Signed ReportBASIC METABOLIC [id number] 12:50:00 Test Item Value Reference Range Interpretation [...] 8.9 MG/DL 8.5-10.1 N Completed by Nursing: [id number] 12:50:00 Test Item Value Reference Range Interpretation [...] may suman yby method. Completed by Nursing: EMMANUELROTHROMBIN [id number] 12:47:00 Test Item Value Reference Range Interpretation Comments PT PATIENT (test code = PTP) 10.5 SECONDS 9.3-12.9 N INTERNATIONAL NORMAL RATIO 0.94 INR Unit 0.8-1.2 N (test code = INR) THROMBOPLASTIN TIME [id number] 12:47:00 Test Item Value Reference Range Interpretation Comments THROMBOPLASTIN TIME PARTIAL 27.9 SECONDS 26-35 N (test code = PTT) BASIC METABOLIC [id number] 12:43:00 Test Item Value Reference Range Interpretation [...] 8.9 MG/DL 8.5-10.1 N Completed by Nursing: [id number] 12:43:00 Test Item Value Reference Range Interpretation Comments TROPONIN-I (test code = TROPI) NG/ML 0.000-0.045 Completed by Nursing: NO- CT HEAD/BRAIN W/O [id number] 12:40:00 [facility] : 1960 Sex: M Name: OTONIEL HENDERSON : 1960 Age/S: 60 / M [id number] Unit #: [id number] Loc:Jerzy Gunn [address] Phys: Anjum Rivera MD Acct: [id number] Dis Date: Status: PRE ER PHONE #: [phone] Exam Date: 10/30/2020 1231 FAX #: Reason: Code Stroke EXAMS: CPT: [id number] CT HEAD/BRAIN W/O CONT [id number]: - CT HEAD/BRAIN W/O CONT. LOCATION: S17. [...] HENDERSON : 1960 Age/S: 60 / M [address] Unit #: [id number] Loc: Jerzy Gunn [address] Phys: Anjum Rivera MD Acct: [id number] Dis Date: Status: PRE ER PHONE #: [phone] Exam Date: 10/30/2020 1231 FAX #: Reason: Code Stroke EXAMS: CPT: [id number] CT HEAD/BRAIN W/O CONT 37627 <Continued> at 1240 Reported and signed by: Manjinder Antonio M.D. CC: Anjum Rivera MD Technologist:Yohan Love, RT(R)(CT); Kr CTDI: DLP: Trnscb Date/Time: 10/30/2020 (1240) [email or web address] Orig Print D/T: S: 10/30/2020 (0600) PAGE 2 Signed ReportCBC W/O [id number] 12:35:00 Test Item Value Reference Range Interpretation [...] 10.70 fL 7.0-9.6 H MPV) GLUCOSE BEDSIDE [id number] 12:29:00 Test Item Value Reference Range Interpretation Comments GLUCOSE BEDSIDE TESTING (test code 140 mg/dL 70-110 H = GLUBED) BASIC METABOLIC [id number] 06:50:00 Test Item Value Reference Range Interpretation [...] mg/dL 8.8-10.2 N = CA) CBC W/AUTO [id number] 06:40:00 Test Item Value Reference Range Interpretation [...] BA#) 0.07 x10 3/uL 0.0-0.20 N VANCOMYCIN [id number] 13:34:00 Test Item Value Reference Range Interpretation Comments VANCOMYCIN TROUGH (test code = 14.4 mcg/ML 10.0-20.0 N VANCT) Spec Comments: RN PLS DRAW VANCO 30MIN BEFORE DOSE DUE ON 01/30 BASIC METABOLIC [id number] 04:08:00 Test Item Value Reference Range Interpretation [...] code 8.8 mg/dL 8.8-10.2 N = CA) [id number] 04:08:00 Test Item Value Reference Range Interpretation Comments MAGNESIUM (test code = MAG) 1.7 mg/dL 1.4-2.6 N CBC W/AUTO [id number] 03:56:00 Test Item Value Reference Range Interpretation [...] 0.09 x10 3/uL 0.0-0.20 N BASIC METABOLIC [id number] 21:22:00 Test Item Value Reference Range Interpretation [...] mg/dL 8.8-10.2 N = CA) RENAL FUNCTION [id number] 21:22:00 Test Item Value Reference Range Interpretation Comments ALBUMIN (test code = ALB) 3.4 G/DL 3.5-5.0 L PHOSPHOROUS (test code = PHOS) 2.0 mg/dL 2.7-4.5 L LIVER FUNCTION [id number] 21:22:00 Test Item Value Reference Range Interpretation [...] = 63 U/L 45-120 N ALKP) LACTIC [id number] 21:18:00 Test Item Value Reference Range Interpretation Comments LACTIC ACID (test code = LACT) 9.4 mg/dL 4.5-18.0 N PROTHROMBIN [id number] 21:12:00 Test Item Value Reference Range Interpretation [...] 2.5-3.5recurren t systemic emboli sm. THROMBOPLASTIN TIME [id number] 21:12:00 Test Item Value Reference Range Interpretation Comments THROMBOPLASTIN TIME 28.6 SECONDS 26.0-35.9 N INTERPRE TATIVE PARTIAL (test code = DATA: erapeutic PTT) range: Unfractionated heparin:47 - 71 seconds Argatroban:1.5 to 3 times the basel ine PTT PROTHROMBIN [id number] 21:09:00 Test Item Value Reference Range Interpretation [...] 2.5-3.5recurren t systemic emboli sm. THROMBOPLASTIN TIME [id number] 21:09:00 Test Item Value Reference Range Interpretation Comments THROMBOPLASTIN TIME PARTIAL (test SECONDS 26.0-35.9 code = PTT) CBC W/AUTO [id number] 21:08:00 Test Item Value Reference Range Interpretation [...] 0.05 x10 3/uL 0.0-0.20 N CBC W/MANUAL [id number] 05:21:00 Test Item Value Reference Range Interpretation [...] code NORMAL NORMAL = PLTMORPH) RENAL FUNCTION [id number] 05:20:00 Test Item Value Reference Range Interpretation [...] 2.5 mg/dL 2.7-4.5 L code = PHOS) [id number] 05:20:00 Test Item Value Reference Range Interpretation Comments MAGNESIUM (test code = MAG) 1.8 mg/dL 1.4-2.6 N CBC W/MANUAL [id number] 04:48:00 Test Item Value Reference Range Interpretation [...] code = LYMPH) % 20.5-45.5 CBC W/MANUAL [id number] 04:48:00 Test Item Value Reference Range Interpretation [...] (test code = LYMPH) % 20.5-45.5 SURGICAL [id number] 12:52:00 RUN DATE: 01/29/20 [facility] - LAB PAGE 1 RUN TIME: 1252 Specimen Inquiry RUN USER: INTERFACE PATIENT: OTONIEL HENDERSON LOC: PJuliana7 POD C U #: [id number] AGE/SX: 59/M ROOM: [facility] RE01/25/20[facility] DR: Cristopher Doty MD : [birth year] BED: 1 DIS: STATUS: ADM IN TLOC: SPEC #: [id number] RECD: 01/28/20-2599 STATUS: FAINA CASTANON #: [id number] SIMON: 01/28/20-[address] [facility] [address]: Cristopher Doty MD ENTERED: 01/28/209007 SP TYPE: SURG OTHR DR: Roxanna Primary or Family Physician Mio Gilbert MD No,DocORDERED: PATHGM3, PATHGM5/2, PATH SPEC, H E STAIN HISTOLOGY: TISSUE ID BLK PCS PARISH LEV / PROCEDURE DISPOSITION ____ ___ ___ ___ ___ COLON SEG NTUMR A 18 1 TISSUES: A. 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 Signed SIGNATURE ON FILE Nita Ashford 01/29/20 1252 END OF REPORT BASIC METABOLIC [id number] 08:29:00 Test Item Value Reference Range Interpretation [...] code 9.2 mg/dL 8.8-10.2 N = CA) [id number] 08:29:00 Test Item Value Reference Range Interpretation Comments MAGNESIUM (test code = MAG) 1.3 mg/dL 1.4-2.6 L CBC W/AUTO [id number] 08:04:00 Test Item Value Reference Range Interpretation [...] x10 3/uL 0.0-0.20 N Novel Coronavirus 2018 [id number] 14:20:00 Test Item Value Reference Range Interpretation Comments Novel Coronavirus NEGATIVE Positive r esults are 2018 nCoV (test indicative o f the presence code = COVID19) [id number]-KmR-1 RNA, clinical correlation wit h patient historyand [...] VERIFIEDbyP.LAB.RS, on 01/26/20, @ 1934.- XR ABDOMEN [id number] 14:18:00Patient Name: OTONIEL HENDERSON Unit No: [id number] EXAMS: CPT CODE: [id number] XR ABDOMEN 1V 21603 Abdomen one view supine 01/28/2020 CLINICAL INDICATION: [...] (1418) by:[email or web address] Printed Date/Time: 01/28/2020 (1428) [facility] José Antonio Zamora MD [address] : 1960 Age: 59 [place]: [place] [address] [facility] [id number] Loc: P.0733 1 Exam Date: 01/28/2020 Status: ADM IN PH: FAX: PAGE 1 Signed ReportCOMPREHENSIVE METABOLIC [id number] 07:39:00 Test Item Value Reference Range Interpretation [...] 45-120 N PHOSPHATASE (test code = ALKP) [id number] 07:39:00 Test Item Value Reference Range Interpretation Comments MAGNESIUM (test code = MAG) 1.4 mg/dL 1.4-2.6 N CBC W/AUTO [id number] 07:12:00 Test Item Value Reference Range Interpretation [...] = BA#) 0.10 x10 3/uL 0.0-0.20 N [id number] 15:08:00 Test Item Value Reference Range Interpretation Comments LITHIUM (test 0.5 mmol/L 0.6-1.2 L code = LITH) Detection Limit = 0.1 <0.1 indicate s None DetectedPerform ed At: [facility] [id number] So MD Ph:[phone] [id number] 15:08:00 Test Item Value Reference Range Interpretation Comments LITHIUM (test 0.5 mmol/L 0.6-1.2 L code = LITH) Detection Limit = 0.1 <0.1 indicate s None DetectedPerform ed At: [facility] [id number] So MD Ph:[phone] Novel Coronavirus 2019 [id number] 07:11:00 Test Item Value Reference Range Interpretation [...] PHOSPHATASE (test code = ALKP) CBC W/AUTO [id number] 04:21:00 Test Item Value Reference Range Interpretation [...] 3/uL 0.0-0.20 N - CT ABD PELVIS [id number] 09:58:00Patient Name: OTONIEL HENDERSON Unit No: [id number] EXAMS: CPT CODE: [id number] CT ABD PELVIS W/CONT 42704 CT abdomen and pelvis with IV contrast. [...] renal cyst. Additional findings as above. Name: [facility] Phys: VARSHA - Norbert William MD [address] DOB: 1960 Age: 59 Sex: [place] [address] Loc: P.0723 1 Exam Date: 01/26/2020 Status: ADM IN PH: FAX: PAGE 1 Signed Report (CONTINUED) Patient Name: OTONIEL HENDERSON Unit No: [id number] EXAMS: CPT CODE: [id number] CT ABD PELVIS W/CONT 55617 <Continued> at 0958 Reported and signed by: OTONIEL ROSSI M.D. CC: Cristopher Doty MD; Norbert William MD Technologist: ANTONIO Martin(Jeannine)(CT) CTDI: 11.68 DLP: 602 Trscr Dt/Tm: 01/26/2020 (0958) by:[email or web address] Printed Date/Time: 01/26/2020 (1001)Name: [facility] Phys: VARSHA - Norbert William MD [address] DOB: 1960 Age: 59 Sex: [place] [address] Loc: P.0723 1 Exam Date: 01/26/2020 Status: ADM IN PH: FAX: PAGE 2 Signed ReportCOMPREHENSIVE METABOLIC [id number] 05:50:00 Test Item Value Reference Range Interpretation [...] PHOSPHATASE (test code = ALKP) CBC W/AUTO [id number] 04:55:00 Test Item Value Reference Range Interpretation [...] 0.15 x10 3/uL 0.0-0.20 N COMPREHENSIVE METABOLIC [id number] 18:44:00 Test Item Value Reference Range Interpretation [...] N PHOSPHATASE (test code = ALKP) PROTHROMBIN [id number] 18:32:00 Test Item Value Reference Range Interpretation [...] 2.5-3.5recurren t systemic emboli sm. CBC W/AUTO [id number] 18:26:00 Test Item Value Reference Range Interpretation [...]
--- NOTE | 2022-01-02 20:31 | RAD REPORT ---
EXAM DESCRIPTION: CT - Head Brain Wo Cont - 01/02/2022 8:15 pm CLINICAL HISTORY: Headache;Dizziness COMPARISON: Head Brain Wo Cont dated 08/29/2021; Ct Stroke Brain Wo Cont dated 08/17/2021 TECHNIQUE: All CT scans are performed using dose optimization technique as appropriate and may inclu de automated exposure control or mA/KV adjustment according to patient size. FINDINGS: No intracranial hemorrhage, hydrocephalus or extra-axial fluid collection.No areas of brai n edema or evidence of midline shift. Chronic small vessel ischemic changes. Remote right basal gangl ia lacunar infarct. Remote left occipital infarct. Remote bilateral frontal lobe infarcts. The paranasal sinuses and mastoids are clear. The calvarium is intact. IMPRESSION: No acute intracranial abnormality. Sequela of remote infarcts.
[2022-01-02] MEDS ORDERED: NA CHLORIDE 0.9% 1,000 ML ONE (20:53)
--- NOTE | 2022-01-02 20:57 | RAD REPORT ---
EXAM DESCRIPTION: RAD - Chest Single View - 01/02/2022 8:43 pm CLINICAL HISTORY: Dizziness COMPARISON: Chest Single View dated 10/28/2021; Chest Single View dated 08/29/2021; Chest Single View dated 08/17/2021; Chest Single View dated 08/10/2021 FINDINGS: Lines: None. Lungs: No evidence of edema or pneumonia. Pleural: No significant pleural effusions or pneumothorax. Cardiac: The heart size is within normal limits. Bones: No acute fractures. Other: Loop recorder overlying the heart. IMPRESSION: No acute cardiopulmonary disease.
[2022-01-02 21:23] LABS: Absolute Lymphocytes (CBC) 1.4 K/uL (0.7-4.9); Lymphocytes % 14.7 % (15.3-44.8); MPV 8.7 fL (7.6-11.3); RBC Red Blood Cell Count 4.45 M/uL (4.33-5.43)
[2022-01-02 21:39] LABS: Magnesium 2.2 mg/dL (1.8-2.4); Potassium 4.1 mmol/L (3.5-5.1); Troponin High Sensitivity 13.3 pg/mL (<58.9)
--- NOTE | 2022-01-02 22:14 | EDPHYS ---
Physician Documentation [facility] Name: Gregory Dumont Age: 61 yrs Sex: Male : 1960 Arrival Date: 01/02/2022 Time: 19:16 Bed 25 Private MD: Lucy Gomes ED Physician Bill Marie HPI: 01/02 19:51 This 61 yrs old Male presents to ER via Wheelchair with complaints of Chest Pain. ms3 19:51 This 61 yrs old Male presents to ER via Wheelchair with complaints of Chest Pain. ms3 19:51 The patient complains of pain to the forehead. The patient describes the headache as ms3 aching. Onset: The symptoms/episode began/occurred 4 month(s) ago. Associated signs and symptoms: Pertinent positives: dizziness, Pertinent negatives:. The symptoms are alleviated by nothing. the symptoms are aggravated by nothing. 61-year-old male presents for headache, dizziness, and generalized weakness the patient states began 4 months ago. Patient denies alleviating or inciting factors. Patient states he is having moderate frontal head pain. Patient states he has had some dizziness.. Historical: - Home Meds: 19:51 gabapentin 400 mg Oral cap [Active]; ld1 - PMHx: 19:51 adhd; Anxiety; Bipolar disorder; Hypertensive disorder; strokes x 3; ld1 - PSHx: 19:51 knee replacements; ld1 - Immunization history:: Adult Immunizations up to date, Client reports having NOT received the Covid vaccine. - Social history:: Smoking status: Patient reports the use of cigarette tobacco products, smokes one pack cigarettes per day. Patient/guardian denies using alcohol. ROS: 19:51 Constitutional: Negative for fever, and chills. Eyes: Negative for injury, pain, ms3 redness, and discharge, Neck: Negative for injury, pain, and swelling, Cardiovascular: Negative for chest pain, and palpitations. Respiratory: Negative for shortness of breath, cough, wheezing, and pleuritic chest pain, Abdomen/GI: Negative for abdominal pain, nausea, vomiting, diarrhea, and constipation, Back: Negative for injury and pain, MS/Extremity: Negative for injury and deformity, Skin: Negative for injury, rash, and discoloration. 19:51 Neuro: Positive for dizziness, headache. 19:51 All other systems are negative. Exam: 19:51 Constitutional: This is a well developed, well nourished patient who is awake, alert, ms3 and in no acute distress. Head/Face: Normocephalic, atraumatic. ENT: Nares patent. No nasal discharge, no septal abnormalities noted. Tympanic membranes are normal and external auditory canals are clear. Oropharynx with no redness, swelling, or masses, exudates, or evidence of obstruction, uvula midline. Mucous membranes moist. Neck: Trachea midline, no cervical lymphadenopathy. Supple, full range of motion without nuchal rigidity, or vertebral point tenderness. No Meningismus. Chest/axilla: Normal chest wall appearance and motion. Nontender with no deformity. Cardiovascular: Regular rate and rhythm with a normal S1 and S2. No gallops, murmurs, or rubs. Normal PMI, no JVD. No pulse deficits. Respiratory: Lungs have equal breath sounds bilaterally, clear to auscultation and percussion. No rales, rhonchi or wheezes noted. No increased work of breathing, no retractions or nasal flaring. Abdomen/GI: Soft, non-tender, with normal bowel sounds. No distension or tympany. No guarding or rebound. No evidence of tenderness throughout. Back: No spinal tenderness. No costovertebral tenderness. Full range of motion. 19:51 Neuro: Orientation: is normal, Mentation: is normal, Cerebellar function: normal finger to nose testing. 22:39 ECG was reviewed by the Attending Physician. ms3 Vital Signs: 19:47 BP 70 / 58; Pulse 61; Resp 18; Temp 97.7(TE); Pulse Ox 94% on R/A; Weight 88.45 kg; ld1 Height 5 ft. 11 in. (180.34 cm); Pain 0/10; 21:18 BP 101 / 62; Pulse 59; Resp 18; ss7 01/03 01:32 BP 118 / 62 LA Supine (auto/reg); Pulse 59 MON; Resp 16 S; Pulse Ox 98% on R/A; Pain sv1 4/10; 01/02 19:47 Body Mass Index 27.20 (88.45 kg, 180.34 cm) ld1 MDM: 01/02 19:51 Differential diagnosis: cerebral vascular accident, hyponatremia, subarachnoid bleed, ms3 subdural hematoma. Data reviewed: vital signs, nurses notes, lab test result(s). Data interpreted: Pulse oximetry: on room air is 98 %. Interpretation: normal. 20:14 Patient medically screened. ms3 23:00 Counseling: I had a detailed discussion with the patient and/or guardian regarding: the ms3 historical points, exam findings, and any diagnostic results supporting the discharge/admit diagnosis, lab results, radiology results, the need for further work-up and treatment in the hospital. ED course: Discussed patient with KIRK Mathew, and he accepts patient. All questions answered. Discussed plan for admission with patient and he understands/ agrees with plan.. 01/02 19:49 Order name: Basic Metabolic Panel; Complete Time: 22:03 ms3 01/02 19:49 Order name: CBC with Diff; Complete Time: 21:30 ms3 01/02 19:49 Order name: Magnesium; Complete Time: 22:03 ms3 01/02 19:49 Order name: Troponin HS; Complete Time: 22:03 ms3 01/02 22:14 Order name: COVID-19 SARS RT PCR (Document "Date of Onset" if Symptomatic); Complete ms3 Time: 23:03 01/03 05:00 Order name: CBC with Automated Diff EDMS 01/02 19:49 Order name: XRAY Chest (1 view); Complete Time: 20:59 ms3 01/02 19:49 Order name: EKG; Complete Time: 19:50 ms3 01/02 19:49 Order name: CT Head Brain wo Cont; Complete Time: 20:40 ms3 20 05:21 Order name: Comprehensive Metabolic Panel EDMS 01/02 19:49 Order name: Cardiac monitoring; Complete Time: 21:23 ms3 01/02 19:49 Order name: EKG - Nurse/Tech; Complete Time: 22:43 ms3 01/02 19:49 Order name: IV Saline Lock; Complete Time: 21:22 ms3 01/02 19:49 Order name: Labs collected and sent; Complete Time: 21:22 ms3 01/02 19:49 Order name: O2 Per Protocol; Complete Time: 21:22 ms3 01/02 19:49 Order name: O2 Sat Monitoring; Complete Time: 21:22 ms3 EC:39 Rate is 48 beats/min. Rhythm is regular, Sinus bradycardia. CO interval is normal. QRS ms3 interval is normal. Clinical impression: Sinus bradycardia. Interpreted by me. Administered Medications: 21:18 CANCELLED (Physician Discretion): NS 0.9% 1000 ml IV at 125 ml/hr continuous ss7 21:18 Drug: NS 0.9% 1000 ml Route: IV; Rate: 1 bolus; Site: left forearm; ss7 22:43 Follow up: IV Status: Completed infusion; IV converted to saline lock sv1 23:30 Drug: HYDROcodone-acetaminophen 5 mg-325 mg 1 tabs Route: PO; sv1 Disposition Summary: 01/02/22 22:14 Hospitalization Ordered Hospitalization Status: Observation ms3 Condition: Stable ms3 Problem: new ms3 Symptoms: have improved ms3 Bed/Room Type: Standard ms3 Provider: Prince Adriano(01/02/22 23:00) la1 Location: Telemetry/MedSurg (observation)(01/03/22 21:11) cg Room Assignment: [facility](01/03/22 21:11) cg Diagnosis - Hypotension, unspecified ms3 - generalized weakness ms3 - headache ms3 Forms: - Medication Reconciliation Form ms3 - SBAR form ms3 Signatures: Dispatcher [employer] EDMS Quincy Lundberg, EULOGIO PLY CUTTER-Cla1 Lucie Almendarez, RN RN cg Bill Marie DO DO ms3 Zamzam Yeung, RN RN ld1 Spenser Joseph RN RN sv1 Nini Horvath RN RN ss7 Corrections: (The following items were deleted from the chart) 21:18 20:37 NS 0.9% 1000 ml IV at 125 ml/hr continuous ordered. ms3 ss7 21:18 21:00 NS 0.9% 1000 ml IV at 125 ml/hr continuous given. ss7 ss7 21:18 21:01 NS 0.9% 1000 ml IV at 125 ml/hr continuous ordered. ss7 ss7 23:00 22:14 Reynold Avery ms3 la1 23:27 22:14 Telemetry/MedSurg (observation) ms3 cg 23:27 22:14 ms3 cg 01/03 21:11 01/02 23:27 [facility] ER HOLD cg cg 01/03 21:11 01/02 23:27 ERHOLD- cg cg
--- NOTE | 2022-01-02 22:14 | ER ---
Nurse's Notes [facility] Name: Gregory Dumont Age: 61 yrs Sex: Male : 1960 Arrival Date: 01/02/2022 Time: 19:16 Bed 25 Private MD: Lucy Gomes Diagnosis: Hypotension, unspecified;generalized weakness;headache Presentation: 01/02 19:47 Chief complaint: Patient states: Had a stroke 4 months ago - pt c/o difficulty walking. ld1 Angel chest pain at this time. Coronavirus screen: At this time, the client does not indicate any symptoms associated with coronavirus-19. Ebola Screen: No symptoms or risks identified at this time. 19:47 Method Of Arrival: Wheelchair ld1 19:50 Initial Sepsis Screen: Does the patient meet any 2 criteria? No. Patient's initial ld1 sepsis screen is negative. Does the patient have a suspected source of infection? No. Patient's initial sepsis screen is negative. Risk Assessment: Do you want to hurt yourself or someone else? Patient reports no desire to harm self or others. Onset of symptoms was January 02, 2022. 19:50 Acuity: MARION 2 ld1 Triage Assessment: 19:51 General: Appears in no apparent distress. comfortable, Behavior is calm, cooperative, ld1 appropriate for age. Pain: Denies pain. Neuro: Level of Consciousness is awake, alert, obeys commands, Oriented to place, time, situation, Appropriate for age. Cardiovascular: Capillary refill < 3 seconds Patient's skin is warm and dry. Rhythm is regular. Respiratory: Airway is patent Respiratory effort is even, unlabored. GI: Abdomen is flat, non-distended. Historical: - Home Meds: 19:51 gabapentin 400 mg Oral cap [Active]; ld1 - PMHx: 19:51 adhd; Anxiety; Bipolar disorder; Hypertensive disorder; strokes x 3; ld1 - PSHx: 19:51 knee replacements; ld1 - Immunization history:: Adult Immunizations up to date, Client reports having NOT received the Covid vaccine. - Social history:: Smoking status: Patient reports the use of cigarette tobacco products, smokes one pack cigarettes per day. Patient/guardian denies using alcohol. Screenin/20 01:36 Abuse screen: Denies threats or abuse. Nutritional screening: No deficits noted. sv1 Tuberculosis screening: No symptoms or risk factors identified. Fall Risk No fall in past 12 months (0 pts). No secondary diagnosis (0 pts). IV access (20 points). Ambulatory Aid- Crutches/Cane/Walker (15 pts). Gait- Weak (10 pts.). Mental Status- Oriented to own ability (0 pts). Assessment: 01:37 Pain: Pain does not radiate. Pain began gradually, 4 hours ago. sv1 Vital Signs: 01/02 19:47 BP 70 / 58; Pulse 61; Resp 18; Temp 97.7(TE); Pulse Ox 94% on R/A; Weight 88.45 kg; ld1 Height 5 ft. 11 in. (180.34 cm); Pain 0/10; 21:18 BP 101 / 62; Pulse 59; Resp 18; ss7 01/03 01:32 BP 118 / 62 LA Supine (auto/reg); Pulse 59 MON; Resp 16 S; Pulse Ox 98% on R/A; Pain sv1 4; 01/02 19:47 Body Mass Index 27.20 (88.45 kg, 180.34 cm) ld1 ED Course: 01/02 19:16 Patient arrived in ED. es 19:17 Lucy Gomes MD is Private Physician. es 19:42 Bill Marie DO is Attending Physician. ms3 19:51 Triage completed. ld1 19:51 Arm band placed on right wrist. ld1 20:14 Spenser Joseph, RN is Primary Nurse. sv1 20:15 CT Head Brain wo Cont In Process Unspecified. EDMS 20:43 XRAY Chest (1 view) In Process Unspecified. EDMS 21:00 Inserted saline lock: 20 gauge in left forearm, using aseptic technique. ss7 21:22 Basic Metabolic Panel Sent. sv1 21:22 CBC with Diff Sent. sv1 21:22 Magnesium Sent. sv1 21:22 Troponin HS Sent. sv1 22:13 Reynold Avery MD is Hospitalizing Provider. ms3 22:20 COVID-19 SARS RT PCR (Document "Date of Onset" if Symptomatic) Sent. ld1 23:00 Prince Oh MD is Hospitalizing Provider. la1 01/03 01:37 Patient has correct armband on for positive identification. Bed in low position. Call sv1 light in reach. Side rails up X2. groundwater monitoring technician on. 01:37 Patient maintains SpO2 saturation greater than 95% on room air. sv1 17:57 Primary Nurse role handed off by Spenser Joseph, RN ll1 Administered Medications: 01/02 21:18 CANCELLED (Physician Discretion): NS 0.9% 1000 ml IV at 125 ml/hr continuous ss7 21:18 Drug: NS 0.9% 1000 ml Route: IV; Rate: 1 bolus; Site: left forearm; ss7 22:43 Follow up: IV Status: Completed infusion; IV converted to saline lock sv1 23:30 Drug: HYDROcodone-acetaminophen 5 mg-325 mg 1 tabs Route: PO; sv1 Outcome: 22:14 Decision to Hospitalize by Provider. ms3 01/03 23:47 Patient left the ED. vc1 Signatures: Dispatcher [employer] EDMS Aida Serrato Lee, YARD LABOR SUPERVISOR-C YARD LABOR SUPERVISOR-Cla1 Christine Forrester RN RN ll1 Bill Marie DO DO ms3 Zamzam Yeung, RN RN ld1 Spensre Joseph, RN RN sv1 Prachi Phelps RN RN vc1 Nini Horvath RN RN ss7 Corrections: (The following items were deleted from the chart) 01/02 19:52 19:47 BP 70 / 53; Pulse 61bpm; Resp 18bpm; Pulse Ox 94% RA; Temp 97.7F Temporal; 88.45 ld1 kg; Height 5 ft. 11 in.; BMI: 27.2; Pain 0/10; ld1 20:12 19:50 Acuity: MARION 3 ld1 ld1 21:01 21:00 NS 0.9% 1000 ml IV at 125 ml/hr in left forearm ss7 ss7
--- NOTE | 2022-01-02 23:51 | P.HP ---
Certification for Inpatient Patient admitted to: Observation With expected LOS: <2 Midnights Patient will require the following post-hospital care: None Practitioner: I am a practitioner with admitting privileges, knowledge of patient current condition, hospital course, and medical plan of care. Services: Services provided to patient in accordance with Admission requirements found in Title 42 Section 412.3 of the Code of Federal Regulations Patient History Date of Service: 01/02/22 Reason for admission: Hypotension, weakness History of Present Illness: 61-year-old male with history of multiple CVA, hypertension, bipolar disorder/anxiety presents the emergency department for generalized weakness and difficulty walking. Patient had a stroke August of last year which resulted in having significalntly slurred speech and dysphasia. He reports feeling unsteady on his feet and weak at home. His initial Bp was in the 70s, his labs showed stable CKD, otherwise unremarkable. Ct showed findings from previous CVA nothing acute. BP improved after fluids, pt still feels unsteady on feet. ED provider wishes to admit for observations. Allergies No Known Allergies Allergy (Verified 08/19/19 17:27) Home Medications: Cyclobenzaprine [Flexeril*] 1 tab PO DAILY 10/24/19 [place] Carbonate [[place] Carbonate ER] 1 tab PO BID 10/24/19 Memantine HCl 1 tab PO BID 10/24/19 Mirtazapine 30 mg PO BEDTIME 10/24/19 Temazepam [Restoril*] 15 mg PO BEDTIME PRN 10/24/19 Venlafaxine HCl [Effexor Xr] 1 cap PO DAILY 10/24/19 Codeine/APAP [Tylenol #3*] 1 tab PO Q6HP PRN #30 tab 10/30/19 Atorvastatin Calcium [Lipitor] 40 mg PO BEDTIME 30 Days #30 tab 08/12/21 Folic Acid 1 mg PO DAILY 30 Days #30 tablet 08/12/21 Aspirin [Aspirin EC 81 MG] 81 mg PO DAILY #30 08/18/21 Clopidogrel Bisulfate [Plavix*] 75 mg PO DAILY #30 tablet 08/18/21 Gabapentin [Neurontin*] 400 mg PO BEDTIME #30 cap 08/18/21 - Past Medical/Surgical History Diabetic: No -: Bipolar disorder -: Hypoglycemia -: ADHD -: Osteoarthritis of the knee -: Nephrolithiasis -: Right renal cyst -: CVA 3 times -: Former tobacco use -: Hepatitis-C -: Depression -: Irregular HR -: Rt knee replacement 08/09/16 -: Lt knee replacement Psychosocial/ Personal History: He is , has 2 children, he does not work. - Family History Mother -: Other (see notes) Notes: Hypoglycemia - Social History Alcohol use: No CD- Drugs: No Caffeine use: Yes Place of Residence: Home Review of Systems 10-point ROS is otherwise unremarkable General: Weakness Neurological: Other (unsteady gait. ) Physical Examination - Physical Exam General: Alert, In no apparent distress, Oriented x3 HEENT: Atraumatic, PERRLA, Mucous membr. moist/pink, EOMI, Sclerae nonicteric Neck: Supple, 2+ carotid pulse no bruit, No LAD, Without JVD or thyroid abnormality Respiratory: Normal air movement Cardiovascular: Regular rate/rhythm, Normal S1 S2 Capillary refill: <2 Seconds Gastrointestinal: Normal bowel sounds, No tenderness Musculoskeletal: No tenderness Integumentary: No rashes Neurological: Normal tone, Normal affect, Abnormal speech (slurred speech, dysphasia) - Studies Laboratory Data (last 24 hrs) 01/02/22 20:02: WBC 9.70, Hgb 13.3 L, Hct 39.0 L, Plt Count 241 01/02/22 20:02: Sodium 138, Potassium 4.1, BUN 23 H, Creatinine 1.42 H, Glucose 90, Magnesium 2.2 Assessment and Plan - Plan Assessment: Weakness, unsteady gait, hypotension History multiple CVA with slurred speech, dysphasia CKD 3 BPD/anxiety Plan: Weakness, unsteady gait, hypotension: Patient bolused IV fluids in the ER blood pressure has improved. Will patient evaluate physical therapy in the morning to determine capacity for ambulation. Patient very difficult to understand given his speech after CVA but reports speech has not changed from his previous CVA. Continue medications including aspirin, Plavix, folic acid. History multiple CVA with slurred speech, dysphasia: Continue home meds aspirin, statin, folic acid. CT without acute changes, patient reports his speech is similar to previous only new symptom is he feels weak and unsteady on his feet. Will provide fluids overnight, obtain orthostatic vitals in the morning believe his weakness was related to hypotension given that initial blood pressure was 70 systolic. CKD 3: Stable continue IV fluids, consult nephrology for worsening. BPD/anxiety: Continue home meds DVT PPX: Lovenox Code status: Full Discharge Plan: Home Plan to discharge in: 24 Hours - Advance Directives Does patient have a Living Will: No Does patient have a Durable POA for Healthcare: No - Code Status/Comfort Care Code Status Assessed: Yes (Full code) Critical Care: No Time Spent Managing Pts Care (In Minutes): 55
[2022-01-03] MEDS ORDERED: HYDROCODONE/APAP 5/325 MG TAB ONE (00:54)
[2022-01-03] MEDS: NA CHLORIDE 0.9% 1,000 ML IV SCH ×3 (02:14→20:51)
[2022-01-03] MEDS ORDERED: ONDANSETRON 4 MG/2 ML VIAL IV PRN (02:14)
[2022-01-03] MEDS ORDERED: NA CHLORIDE 0.9% 1,000 ML ONE ×3 (02:21→20:52)
[2022-01-03 04:59] LABS: Absolute Lymphocytes (CBC) 1.4 K/uL (0.7-4.9); Hematocrit 39.2 % (39.6-49.0); Lymphocytes % 14.8 % (15.3-44.8); MPV 8.9 fL (7.6-11.3); RBC Red Blood Cell Count 4.34 M/uL (4.33-5.43)
[2022-01-03 05:21] LABS: Albumin 3.6 g/dL (3.4-5.0); Bilirubin Total 0.5 mg/dL (0.2-1.0); Potassium 3.8 mmol/L (3.5-5.1); Protein, Total 7.1 g/dL (6.4-8.2)
[2022-01-03 06:27] VITALS: BMI 30.5
[2022-01-03] MEDS: ENOXAPARIN 40 MG/0.4 ML SQ SCH (08:22)
[2022-01-03] MEDS ORDERED: ENOXAPARIN 40 MG/0.4 ML SQ ONE (08:24)
[2022-01-03] MEDS ORDERED: INFLUENZA VACCINE (for 6+ mo) 0.5 ML DOSE IMVAC ONE (09:00)
--- NOTE | 2022-01-03 10:51 | P.PN ---
Subjective Date of Service: 01/03/22 Chief Complaint: Hypotension, weakness Subjective: Improving Physical Examination - Vital Signs Temperature: 98.6 F Blood Pressure: 148/81 Pulse: 68 Respirations: 16 Pulse Ox (%): 98 - Physical Exam General: In no apparent distress, Cooperative HEENT: Atraumatic, Normocephalic Respiratory: Clear to auscultation bilaterally, Normal air movement Cardiovascular: Regular rate/rhythm, Normal S1 S2, Other (bradycardic) Gastrointestinal: Soft and benign, Non-distended Musculoskeletal: No clubbing, No swelling, No contractures, No erythema Neurological: Normal affect, Other (aphasic) - Studies Laboratory Data (last 24 hrs) 01/02/22 20:02: WBC 9.70, Hgb 13.3 L, Hct 39.0 L, Plt Count 241 01/02/22 20:02: Sodium 138, Potassium 4.1, BUN 23 H, Creatinine 1.42 H, Glucose 90, Magnesium 2.2 Assessment And Plan - Current Problems (Diagnosis) (1) Ataxia Current Visit: Yes Status: Acute (2) CVA (cerebral vascular accident) Current Visit: Yes Status: Acute (3) Adult ADHD Onset Date: 08/23/16 Current Visit: No Status: Chronic (4) Bipolar disorder Onset Date: 05/17/17 Current Visit: No Status: Chronic Qualifiers: Active/Remission status: remission status unspecified Qualified Code(s): F31.9 - Bipolar disorder, unspecified (5) Hepatitis C Onset Date: 05/17/17 Current Visit: No Status: Chronic Qualifiers: Viral hepatitis chronicity: unspecified Hepatic coma status: without hepatic coma Qualified Code(s): B19.20 - Unspecified viral hepatitis C without hepatic coma Physician Review Additional Text: 01/03/22 10:49 Assessment Patient is a 61 year old male with a PMH of CVA with residual aphasia and dysphagia. He is admitted for evaluation of ataxia. Mildly hypotensive and bradycardic on admission. Ataxia, high fall risk Dizziness ROSALEE Recent CVA Bradycardia PLAN: Continue telemetry monitoring Renal insufficiency much improved with IVF Follow TTE and orthostatic vitals EKG with sinus bradycardia Cardiology consulted for pacemaker assessment He will also need PT Continue DVT ppx
[2022-01-03] MEDS ORDERED: TEMAZEPAM 15 MG CAP PO PRN (10:53)
[2022-01-03] MEDS: MEMANTINE HCL 10 MG TABLET PO SCH ×2 (21:00→21:28)
[2022-01-03] MEDS: MIRTAZAPINE 15 MG TAB PO SCH ×2 (21:00→21:28)
[2022-01-03] MEDS ORDERED: MIRTAZAPINE 15 MG TAB PO SCH (21:00)
[2022-01-03] MEDS ORDERED: HOME MED 1 EA UNK (Mirtazapine [Mirtazapine] 30 MG Tablet) PO SCH (21:00)
[2022-01-03] MEDS ORDERED: ATORVASTATIN 40 MG TAB PO SCH (21:00)
[2022-01-03] MEDS: LITHIUM CARBONATE 300 MG PO SCH (21:00)
[2022-01-03] MEDS ORDERED: ATORVASTATIN 20 MG TAB ONE (21:27)
[2022-01-03] MEDS ORDERED: LITHIUM CARBONATE 300 MG CAP ONE (21:29)
[2022-01-03 22:21] VITALS: O2SAT 99
[2022-01-04 03:48] LABS: Absolute Lymphocytes (CBC) 1.3 K/uL (0.7-4.9); Hematocrit 40.9 % (39.6-49.0); Lymphocytes % 10.8 % (15.3-44.8); MPV 8.8 fL (7.6-11.3); RBC Red Blood Cell Count 4.66 M/uL (4.33-5.43)
[2022-01-04 04:10] LABS: ALT/SGPT 24 U/L (12-78); AST/SGOT 23 U/L (15-37); Albumin 3.9 g/dL (3.4-5.0); Alkaline Phosphatase 100 U/L (45-117); BUN Blood Urea Nitrogen 10 mg/dL (7-18); Bicarbonate 23 mmol/L (21-32); Bilirubin Total 0.5 mg/dL (0.2-1.0); Glucose Level 110 mg/dL (74-106); Potassium 3.7 mmol/L (3.5-5.1); Protein, Total 7.5 g/dL (6.4-8.2); Sodium Level 138 mmol/L (136-145)
[2022-01-04] MEDS ORDERED: POTASSIUM CL SA 10 MEQ TAB PO ONE (08:00)
[2022-01-04] MEDS: NA CHLORIDE 0.9% 1,000 ML IV SCH (08:14)
--- NOTE | 2022-01-04 08:21 | EKG ---
Test Date: 2022-01-03 Test Time: 07:29:40 [place] Operator: MEASUREMENT RESULTS: Intervals: Rate: 38 MI: 138 QRSD: 96 QT: 460 QTc: 365 [place]: P: 74 MI: 138 QRS: 85 T: 83 INTERPRETIVE STATEMENTS: Marked sinus bradycardia with sinus arrhythmia Abnormal ECG Compared to ECG 01/02/2022 22:39:35 No significant changes Electronically Signed On 01-04-22 08:19:48 CDT by Hoang Burns
--- NOTE | 2022-01-04 08:22 | EKG ---
Test Date: 2022-01-02 Test Time: 22:39:35 [place] Farmer: [place] DAILY MEASUREMENT RESULTS: Intervals: Rate: 48 DC: 138 QRSD: 98 QT: 474 QTc: 423 [place]: P: 63 DC: 138 QRS: 79 T: 72 INTERPRETIVE STATEMENTS: Marked sinus bradycardia Abnormal ECG Compared to ECG 10/28/2021 16:19:08 Sinus rhythm no longer present Electronically Signed On 01-04-22 08:19:53 CDT by Hoang Burns
[2022-01-04 08:44] VITALS: BP 135/72; TEMP 98.6
[2022-01-04] MEDS ORDERED: HOME MED 1 EA UNK (Venlafaxine Hcl [Effexor Xr] 150 MG Cap.Er.24h) PO SCH (09:00)
[2022-01-04] MEDS ORDERED: FOLIC ACID 1 MG TABLET PO SCH (09:00)
[2022-01-04] MEDS ORDERED: CLOPIDOGREL 75 MG TABLET PO SCH (09:00)
[2022-01-04] MEDS ORDERED: VENLAFAXINE HCL XR 75 MG CAP PO SCH (09:00)
[2022-01-04] MEDS ORDERED: ASPIRIN EC 81 MG TAB PO SCH (09:00)
[2022-01-04] MEDS: LITHIUM CARBONATE 300 MG PO SCH (09:00)
[2022-01-04] MEDS: MEMANTINE HCL 10 MG TABLET PO SCH (09:24)
[2022-01-04] MEDS: ENOXAPARIN 40 MG/0.4 ML SQ SCH (09:25)
--- NOTE | 2022-01-04 10:02 | P.DS ---
Discharge Date: 01/04/22 Disposition: ROUTINE DISCHARGE Discharge Condition: GOOD Reason for Admission: Hypotension, weakness Brief History of Present Illness: 61-year-old male with history of multiple CVA, hypertension, bipolar disorder/anxiety presents the emergency department for generalized weakness and difficulty walking. Patient had a stroke August of last year which resulted in having significalntly slurred speech and dysphasia. He reports feeling unsteady on his feet and weak at home. His initial Bp was in the 70s, his labs showed stable CKD, otherwise unremarkable. Ct showed findings from previous CVA nothing acute. BP improved after fluids, pt still feels unsteady on feet. ED provider wishes to admit for observations. Hospital Course: Patient is doing well. Heart rate is stable. Blood pressure is stable. Patient is wanting to go home. He has been asking since 5:00 this morning to go home. At this time, he is stable for discharge. Vital Signs/Physical Exam: Temp Pulse Resp BP Pulse Ox 98.6 F 91 H 18 135/72 98 01/04/22 08:00 01/04/22 08:00 01/04/22 08:00 01/04/22 08:00 01/04/22 08:00 General: Alert, In no apparent distress, Oriented x3 Laboratory Data at Discharge: WBC 11.80 K/uL (4.3-10.9) H D 01/04/22 03:00 Hgb 13.7 g/dL (13.6-17.9) 01/04/22 03:00 Hct 40.9 % (39.6-49.0) 01/04/22 03:00 Plt Count 245 K/uL (152-406) 01/04/22 03:00 Sodium 138 mmol/L (136-145) 01/04/22 03:00 Potassium 3.7 mmol/L (3.5-5.1) 01/04/22 03:00 BUN 10 mg/dL (7-18) 01/04/22 03:00 Creatinine 0.85 mg/dL (0.55-1.3) 01/04/22 03:00 Glucose 110 mg/dL (74-106) H 01/04/22 03:00 Magnesium 2.2 mg/dL (1.8-2.4) 01/02/22 20:02 Total Bilirubin 0.5 mg/dL (0.2-1.0) 01/04/22 03:00 AST 23 U/L (15-37) 01/04/22 03:00 ALT 24 U/L (12-78) 01/04/22 03:00 Alkaline Phosphatase 100 U/L (45-117) 01/04/22 03:00 Home Medications: Cyclobenzaprine [Flexeril*] 1 tab PO DAILY 10/24/19 [place] Carbonate [[place] Carbonate ER] 1 tab PO BID 10/24/19 Memantine HCl 1 tab PO BID 10/24/19 Mirtazapine 30 mg PO BEDTIME 10/24/19 Temazepam [Restoril*] 15 mg PO BEDTIME PRN 10/24/19 Venlafaxine HCl [Effexor Xr] 1 cap PO DAILY 10/24/19 Codeine/APAP [Tylenol #3*] 1 tab PO Q6HP PRN #30 tab 10/30/19 Atorvastatin Calcium [Lipitor] 40 mg PO BEDTIME 30 Days #30 tab 08/12/21 Folic Acid 1 mg PO DAILY 30 Days #30 tablet 08/12/21 Aspirin [Aspirin EC 81 MG] 81 mg PO DAILY #30 tablet. 08/18/21 Clopidogrel Bisulfate [Plavix*] 75 mg PO DAILY #30 tablet 08/18/21 Gabapentin [Neurontin*] 400 mg PO BEDTIME #30 cap 08/18/21 Cefdinir [Omnicef] 300 mg PO BID #14 capsule 01/04/22 New Medications: Cefdinir [Omnicef] 300 mg PO BID #14 capsule Physician Discharge Instructions: -DC IV and DC home -Follow-up with PCP in 1 to 2 weeks -Follow-up with Cardiology and neurology in 1 to 2 weeks -Please call Dr. Rao at [phone] if any questions regarding hospital stay -Please call nursing station at [phone] if any nursing or medication questions -Return to the emergency room if symptoms worsen Diet: AHA Activity: Fall precautions Followup: NONE,NONE [Primary Care Provider] - Time spent managing pt's care (in minutes): 35
== END 2022-01-04 10:30 | disposition home or self-care (01) ==
LOC: ER 19:12 → ERHOLD 23:03 → 4TH 01-03 22:47
PROVIDERS: ADMIT Internal Medicine; ATTEND Hospitalist
DX: R27.0 Ataxia, unspecified (principal); I95.9 Hypotension, unspecified; R53.1 Weakness; R00.1 Bradycardia, unspecified; I69.921 Dysphasia following unspecified cerebrovascular disease; I69.920 Aphasia following unspecified cerebrovascular disease; I69.991 Dysphagia following unspecified cerebrovascular disease; R13.10 Dysphagia, unspecified; I12.9 Hypertensive chronic kidney disease with stage 1 through stage 4 chronic kidney disease, or unspecified chronic kidney disease; N18.30 Chronic kidney disease, stage 3 unspecified; N17.9 Acute kidney failure, unspecified; F31.9 Bipolar disorder, unspecified; F41.9 Anxiety disorder, unspecified; F32.A Depression, unspecified; F90.9 Attention-deficit hyperactivity disorder, unspecified type; B19.20 Unspecified viral hepatitis C without hepatic coma; R51.9 Headache, unspecified; N28.1 Cyst of kidney, acquired; M17.10 Unilateral primary osteoarthritis, unspecified knee; N20.0 Calculus of kidney; Z79.02 Long term (current) use of antithrombotics/antiplatelets; Z79.82 Long term (current) use of aspirin; Z79.899 Other long term (current) drug therapy; Z96.653 Presence of artificial knee joint, bilateral; Z87.891 Personal history of nicotine dependence; Z20.822 Contact with and (suspected) exposure to COVID-19
CPT/HCPCS: 93005 ×2; 85025 ×3; 80048; 36415 ×2; 83735; 84484; 80053 ×2; 70450; 71045; 97116; 97161; 97530 ×2; 96360; 99285; U0003; J1650 ×2; J7030 ×5; G0378 ×3

== ENCOUNTER 2022-01-24 12:39 | Inpatient (IN) | payer OTHER ==
--- OUTSIDE RECORDS SUMMARY | 2022-01-24 12:44 | XMS REPORT | Continuity of Care Document ---
:1960 Author Organization [facility] t Address [address] [place] [address] Care Team Providers Name Role Phone Jie CALDWELL Primary Care Physician EVERETT Attending Clinician Unavailable [id number] Attending Clinician Unavailable Saray Gomes Attending Clinician Unavailable Steffi Gilbert Attending Clinician Unavailable Jie CALDWELL Attending Clinician Eric_Iza Attending Clinician Unavailable A_Byrd Attending Clinician Unavailable Lucio Attending Clinician Unavailable Soren Attending Clinician Unavailable [id number] Admitting Clinician Unavailable Physician, Primary or Family Admitting Clinician UnavailSteffi Guo Admitting Clinician Unavailable Eric_Iza Admitting Clinician Unavailable A_Byrd Admitting Clinician Unavailable Payers Payer Name Policy Type Policy Number Effective Date Expiration Date S ource [place] MEDICA[place] [id number] 2021 00:00:00 [facility] [id number] 2021 2022 STARPLUS OON 00:00:00 00:00:[address] [facility] MEDICARE B-[place]: [id number] [place] [facility] [id number] 2020 COMMUNITY PLAN - 00:00:00 [place] STAR PLUS (MEDICAID HMO) Problems Condition Condition Condition Status Onset Resolution Last Treating Co mments Source Name Details Category Date Date Treatment Clinician Date ADHD ADHD Disease Active Univers (attention (attention 4-06 it y of deficit deficit 00:00: [place] hyperactiv hyperactiv 00 Me dical ity ity Branch disorder), disorder), combined combined type type Bipolar 1 Bipolar 1 Disease Active Uni vers disorder, disorder, 4-06 ity of mixed, mixed, 00:00: [place] mild mild 00 Medical Branch Lumbar Lumbar Disease Active Univers paraspinal paraspinal 4-06 it y of muscle muscle 00:00: [place] spasm spasm 00 Medical Branch ROSALEE (acute ROSALEE (acute Disease Active U herrera kidney kidney 3-24 ity of injury) injury) 00:00: [place] 00 Medical Branch Orthostati Orthostati Disease Active U mindiers c c 3-23 ity of hypotensio hypotensio [place] [facility] Hospital Disease Active Unive rs discharge discharge 3-23 ity of follow-up [place] Hypotensio Hypotensio Disease Active U mindiers n n 3-23 ity of 00:00: [place] 00 Medical Branch Dyslipidem Dyslipidem Disease Active U herrera ia ia 2-23 ity of 00:00: [place] 00 Medical Branch Speech and Speech and Disease Active U herrera language language 2-23 ity of deficit as deficit as [place] 00 Medical effect of effect of Bran ch stroke stroke Medicare Medicare Disease Active Unive rs annual annual 2-08 ity of wellness wellness 00:00: [place] visit, visit, 00 Medical initial initial Branch [...] nivers s s 2-04 ity of 00:00: [place] 00 Medical Branch Pulmonary Pulmonary Disease Active Uni vers embolism, embolism, 6-05 ity of bilateral bilateral [place] Cerebrovas Cerebrovas Disease Active U nivers cular cular 9-24 ity of disease disease 00:00: [place] Medical Branch Chest pain Chest pain Disease Active U nivers 9-23 ity of 00:00: [place] 00 Medical Branch Acute Acute Disease Active Univers right right 9-23 ity of arterial arterial 00:00: [place] ischemic ischemic 00 Medica l stroke, stroke, Branch middle middle cerebral cerebral artery artery (MCA) (MCA) Tobacco Tobacco Disease Active Univers abuse abuse 4-16 ity of 00:00: [place] 00 Medical Branch Status Status Disease Active 2015-10 Univers post total post total 0-24 it y of left knee left [place] 00:[place] replacemen replacemen 00 Me dical t t Branch Bilateral Bilateral Disease Active Uni vers chronic chronic 9-20 ity of knee pain knee pain [place] Cerebral Cerebral Disease Active Overview: Un cecile thrombosis thrombosis 3-17 Formattin ity of 00:00: g of this [place] 00 note Medical might be Branch different from the original. ICD10 Diagnosis Term Heel Seam Rubber Utility Nicotine Nicotine Problem Active [facility] [...] [facility] Arthritis Arthritis Problem [...] Greta kes - on on [facility] Other Other Problem [...] St ia ia [facility] Simple Simple Problem Active [facility] chronic chronic [facility] - bronchitis bronchitis Me moria l [facility] Allergies, Adverse Reactions, Alerts Allergy Allergy Status Severity Reaction(s) Onset Inactive Treating Comm ents Source Name Type Date Date Clinician No Known DA Active U [facility] Allergie 1-14 Clear s 00:00: Pat[place] 00 [facility] No Known DA Active U [facility] Allergie 14 [place] [facility] 00:00: Pat[place] 00 [facility] No Known DA Active U [facility] Allergie 4-10 [facility] 00:00: Health [address] [facility] No Known DA Active U 0 [facility] Allergie 4-10 [facility] 00:00: Health [address] [facility] Social History Social Habit Start Date Stop Date Quantity Comments Source History of tobacco Cigar Smoker Univ ersity of use [facility] History [facility] o f Alcohol Frequency [facility] History [facility] o f Alcohol Std Drinks [facility] History [facility] o f Alcohol Binge [facility] Exposure to Not sure [facility] SARS-CoV-2 (event) [facility] Alcohol intake 2022-01-20 2022-01-20 0 /d [place] of 00:00:00 00:00:[address] [facility] Education 2021-03-21 2021-03-21 14 [facility] 00:00:00 00:00:[address] [facility] Cigarettes smoked 2016-06-11 2016-06-11 Univers ity of current (pack per 00:00:00 00:00:00 [facility] ) - Reported Branch Cigarette 2016-06-11 2016-06-11 University of pack-years 00:00:00 00:00:[address] [facility] Tobacco use and 2016-06-11 2016-06-11 Never used Universit y of exposure 00:00:00 00:00:[address] [facility] Alcohol Comment 2016-06-11 2016-06-11 sober for 20 Univers ity of 00:00:00 00:00:[address] [facility] Smoking Status Start Date Stop Date Source Unknown if ever smoked [facility] Current some day smoker 2016-06-11 00:00:00 [facility] Medications Ordered Filled Start Stop Current Ordering Indication Dosage Frequency Signature Comments Components Source Medication Medication Date Date Medication? Clinician (SIG) Name Name tiZANidine Yes [id number] 2mg Take 1 Univers 2 mg tablet 4-06 05 tablet by ity of 00:00: mouth [place] 00 every 8 Medical (eight) Branch hours as needed (muscle spasms). sildenafil Yes [id number] 20mg Take 1 Univers (REVATIO) 4-06 tablet by ity o f 20 mg 00:00: mouth as [place] tablet 00 needed Medical (Take 1 Branch tablet by mouth as needed (Erectile Dsyfynctio n). Take 1 Take 30 mins prior to being intimate. Do not exceed 40mg in 24H. Do not mix with any other medication ). tiZANidine Yes [id number] 2mg Take 1 Univers 2 mg tablet 4-06 05 tablet by ity of 00:00: mouth [place] 00 every 8 Medical (eight) Branch hours as needed (muscle spasms). sildenafil Yes [id number] 20mg Take 1 Univers (REVATIO) 4-06 tablet by ity o f 20 mg 00:00: mouth as [place] tablet 00 needed Medical (Take 1 Branch tablet by mouth as needed (Erectile Dsyfynctio n). Take 1 Take 30 mins prior to being intimate. Do not exceed 40mg in 24H. Do not mix with any other medication ). ALBUTEROL 0 Yes 8.5g Inhale 8.5 Un cecile INHALE 3-24 g every 4 ity of 14:32: (four) [place] 56 hours. Medical Branch atomoxetine 0 Yes 40mg Take 40 mg Univers 40 mg 3-24 by mouth ity of capsule 14:32: daily. [place] 56 Medical Branch traZODone 0 Yes 150mg Take 150 Uni vers 100 mg 3-24 mg by ity of tablet 14:32: mouth at [place] 56 bedtime. Medical Branch duloxetine Yes 30mg Take 30 mg U nivers HCl 3-24 by mouth ity of (DULOXETINE 14:32: at [place] ORAL) 56 bedtime. Medical Branch ALBUTEROL Yes 8.5g Inhale 8.5 Un cecile INHALE 3-24 g every 4 ity of 14:32: (four) [place] 56 hours. Medical Branch atomoxetine Yes 40mg Take 40 mg Univers 40 mg 3-24 by mouth ity of capsule 14:32: daily. [place] 56 Medical Branch traZODone Yes 150mg Take 150 Uni vers 100 mg 3-24 mg by ity of tablet 14:32: mouth at [place] [address] bedtime. Medical Branch duloxetine Yes 30mg Take 30 mg U nivers HCl 3-24 by mouth ity of (DULOXETINE 14:32: at [place] ORAL) 56 bedtime. Medical Branch traMADoL Yes [id number] 1{tbl} Take 1 Univers 100 mg Tab 3-09 tablet by ity of 00:00: mouth 3 [place] 00 (three) Medical times Branch daily as needed for Pain (scale 7-10). traMADoL Yes [id number] 1{tbl} Take 1 Univers 100 mg Tab 3-09 tablet by ity of 00:00: mouth 3 [place] 00 (three) Medical times Branch daily as needed for Pain (scale 7-10). diclofenac Yes [id number] 75mg Take 1 Univers 75 mg EC 2-25 05 tablet by ity of tablet 00:00: mouth 2 [place] 00 (two) Medical times Branch daily with meals. diclofenac 2021-0 Yes [id number] 75mg Take 1 Univers 75 mg EC 2-25 05 tablet by ity of tablet 00:00: mouth 2 [place] 00 (two) Medical times Branch daily with meals. nicotine 7 Yes [id number] 1{patch Apply 1 Univers mg/24 hr 2-23 } Patch to ity of patch 00:00: area(s) [place] 00 every 24 Medical (twenty-fo Branch ur) hours. Apply 21mg patch daily x 6 weeks; then apply 14mf patch daily x 2 weeks; then apply 7mg patch daily x 2 weeks. Stop smoking on initiation of therapy nicotine 21 2-0 Yes [id number] 1{patch Apply 1 Univers mg/24 hr 2-23 } Patch to ity of patch 00:00: area(s) [place] 00 daily. Medical Apply 21mg Branch patch daily x 6 weeks; then apply 14mf patch daily x 2 weeks; then apply 7mg patch daily x 2 weeks. Stop smoking on initiation of therapy nicotine Yes [id number] 1{patch Apply 1 Univers mg/24 hr 2-23 } Patch to ity of patch 00:00: area(s) [place] 00 every 24 Medical (twenty-fo Branch ur) hours. Apply 21mg patch daily x 6 weeks; then apply 14mf patch daily x 2 weeks; then apply 7mg patch daily x 2 weeks. Stop smoking on initiation of therapy nicotine Yes [id number] 1{patch Apply 1 Univers mg/24 hr 2-23 } Patch to ity of patch 00:00: area(s) [place] 00 every 24 Medical (twenty-fo Branch ur) hours. Apply 21mg patch daily x 6 weeks; then apply 14mf patch daily x 2 weeks; then apply 7mg patch daily x 2 weeks. Stop smoking on initiation of therapy nicotine Yes [id number] 1{patch Apply 1 Univers mg/24 hr 2-23 } Patch to ity of patch 00:00: area(s) [place] 00 daily. Medical Apply 21mg Branch patch daily x 6 weeks; then apply 14mf patch daily x 2 weeks; then apply 7mg patch daily x 2 weeks. Stop smoking on initiation of therapy nicotine Yes [id number] 1{patch Apply 1 Univers mg/24 hr 2-23 } Patch to ity of patch 00:00: area(s) [place] 00 every 24 Medical (twenty-fo Branch ur) hours. Apply 21mg patch daily x 6 weeks; then apply 14mf patch daily x 2 weeks; then apply 7mg patch daily x 2 weeks. Stop smoking on initiation of therapy clopidogreL Yes [id number] 75mg Take 1 Univers 75 mg 2-07 tablet by ity of tablet 00:00: mouth [place] 00 daily. Medical Branch clopidogreL 2021-0 Yes [id number] 75mg Take 1 Univers 75 mg 2-07 tablet by ity of tablet 00:00: mouth [place] 00 daily. Medical Branch atorvastati Yes [id number] 80mg Take 1 Univers n 80 mg 2-04 tablet ity of tablet 00:00: through 00 enteral Medical tube at [place] bedtime. gabapentin 2021-0 Yes [id number] 400mg Take 1 Univers 400 mg 2-04 capsule by ity of capsule 00:00: mouth 3 00 (three) Medical times Branch daily. atorvastati Yes [id number] 80mg Take 1 Univers n 80 mg 2-04 tablet ity of tablet 00:00: through 00 enteral Medical tube at [place] bedtime. gabapentin 2021- Yes [id number] 400mg Take 1 Univers 400 mg 2-04 capsule by ity of capsule 00:00: mouth 3 00 (three) Medical times [place] daily. risperiDONE 2020- Yes 1mg Take 1 mg U nivers 1 mg tablet 9-15 by mouth 3 it y of 00:00: (three) [place] 00 times Medical daily. Branch risperiDONE Yes 1mg Take 1 mg U nivers 1 mg tablet 9-15 by mouth 3 it y of 00:00: (three) [place] 00 times Medical daily. Branch Flonase Flonase Yes Na Gomes [address] 8-07 each [facility] 00[facility] Immunizations Ordered Filled Immunization Date Status Comments [facility] e Immunization Name Name SARS-COV-2 COVID-19 2021-05-30 Completed Unive rsity of MODERNA VACCINE 00:00:00 [facility] SARS-COV-2 COVID-19 2021-05-30 Completed Unive rsity of MODERNA VACCINE 00:00:00 [facility] SARS-COV-2 COVID-19 2021-03-18 Completed Unive rsity of MODERNA VACCINE 00:00:00 [facility] SARS-COV-2 COVID-19 2021-03-18 Completed Unive rsity of MODERNA VACCINE 00:00:00 [facility] SARS-COV-2 COVID-19 2021-02-04 Completed Unive rsity of MODERNA VACCINE 00:00:00 [facility] SARS-COV-2 COVID-19 2021-02-04 Completed Unive rsity of MODERNA VACCINE 00:00:00 [facility] ical Branch Procedures Procedure Date / Time Performed Performing Clinician Julia jones [id number] 2020-10-30 00:00:00 SPANI [facility] [id number] 2020-01-28 00:00:00 WEAMA.02 [facility] [id number] 2020-01-28 00:00:00 WEAMA.02 [facility] [id number] 2020-01-28 00:00:00 WEAMA.02 [facility] [id number] 2020-01-28 00:00:00 WEAMA.02 [facility] [id number] 2020-01-28 00:00:00 WEAMA.02 [facility] Plan of Care Planned Activity Planned Date Details Comments Source Future Scheduled Test COLON CANCER SCREENING: [facility] COLONOSCOPY [code = Medicine COLON CANCER SCREENING: COLONOSCOPY] Future Scheduled Test MEDICARE AWV [code = [employer] MEDICARE AWV] Medicine Future Scheduled Test TETANUS SHOT (ADULT) [facility] [code = TETANUS SHOT Medicin e (ADULT)] Future Scheduled Test HEPATITIS C SCREENING [facility] [code = HEPATITIS C Medicine SCREENING] Future Scheduled Test HIV SCREENING [code = [facility] HIV SCREENING] Medicine Future Scheduled Test FLU VACCINE > 6 MONTHS [facility] [code = FLU VACCINE > 6 Medi cine MONTHS] Encounters Start End Encounter Admission Attending Care Care Encounter Source Date/Time Date/Time Type Type Clinicians Facility Department ID 2022-01-19 Outpatient EVERETT [facility] [id number] [place] 03:16:47 [facility] [id number] [facility] 2022-01-18 Outpatient [facility] [id number] [place] 12:57:31 [id number] [facility] 2022-01-01 Outpatient [place]ETT [facility] [id number] [place] 15:24:56 [facility] 2021-11-13 Outpatient [facility] [id number] [place] 15:22:56 Health 2021-11-12 Outpatient [id number] [facility] CVA E[facility] 10:42:58 1002 2021-11-12 Outpatient [id number] E[facility] REF ENCPL 10:40:46 0927 2021-11-11 Outpatient Lucy Gomes STLMLC STLMLC [id number] 11:17:41 [id number] [facility] 2021-11-11 Outpatient Gomes, Na STLMLC STLMLC [id number] 11:00:18 [id number] [facility] 2021-11-11 Outpatient Mireya Na STLMLC STLMLC [id number] 11:00:09 [id number] [facility] 2020-10-30 Inpatient HCAPM REGINALDO [id number] [facility] 12:19:00 [id number] [facility] 2020-01-28 Inpatient EL Gilbert, Mio [facility] [id number] [facility] 16:09:00 [id number] [facility] 2020-01-25 Inpatient EL Gilbert, Mio [facility] . [id number] [facility] 16:41:00 [facility] 2022-01-21 2022-01-21 Telephone [facility] [id number] Univers 00:00:00 00:00:00 Marcial HANSEN [id number] i ty of [place] [id number] [place] PROF[place] [id number] N[place] dical NAL [address] [place] [address] 2022-01-20 2022-01-20 Telephone [facility] [id number] Univers 00:00:00 00:00:00 Marcial HANSEN [id number] i ty of [place] 4.2.7.2.686 [place] [phone] Nc dical NAL [address] [place] [address] 2021-06-10 2021-06-10 Outpatient Zuniga_F [facility] [id number] [place] 09:20:00 09:20:00 0825 [facility] 2021-06-03 2021-06-03 Outpatient A_Byrd [facility] [id number] [place] 10:29:00 10:29:00 [id number] [facility] 2020-10-31 2020-10-31 Outpatient Lucio, FELIX LABO [id number] [facility] 00:22:00 00:22:00 Oladipo [id number] [facility] 2020-06-20 2020-06-20 [facility] [id number] [address] 10:36:00 10:36:00 t [place] GrupHediye Luke s - Drive [facility] Medicine l Medicine Outpati ent Clinics 2020-05-23 2020-05-23 [facility] [id number] 16:20:00 16:20:00 [place] GrupHediye LuInCast s - Drive [facility] l Medicine Outpati ent Clinics 2020-05-23 2020-05-23 [facility] [id number] 15:25:00 15:25:00 [place] Yebhi s - [facility] [place] [facility] Medicine Outpati ent Clinics 2020-01-28 2020-01-28 Outpatient Soren, [facility] REF [id number] [facility] 14:20:00 14:20:00 [facility] [id number] [place] [address] 2020-01-01 2020-01-01 [facility] [id number] 16:10:00 16:10:00 [place] Y[place] s - [facility] [place] [facility] Medicine Outpati ent Clinics 2019-12-26 2019-12-26 [facility] [id number] 08:44:00 08:44:00 [place] Yeb[place] s - [facility] [place] [facility] Medicine Outpati ent Clinics 2019-12-05 2019-12-05 [facility] [id number] 15:07:00 15:07:00 [place] Yeb[place] s - [facility] Medicine Medicine Outpati ent Clinics 2019-09-24 2019-09-24 [facility] [id number] 09:27:00 09:27:00 [place] Y[place] s - Drive [facility] [place] [facility] Medicine Outpati ent Clinics 2019-09-06 2019-09-06 [facility] [id number] 12:00:00 12:00:00 [place] Y[place] s - Drive [facility] [place] [facility] Medicine Outpati ent Clinics 2019-08-18 2019-08-18 [facility] [id number] 17:55:00 17:55:00 [place] Y[place] s - Drive [facility] Family Medicine l Medicine Outpati ent Clinics 2019-08-01 2019-08-01 [facility] [id number] 09:00:00 09:00:00 [place] Y[place] s - Drive [facility] Medicine l Medicine Outpati ent Clinics 2019-06-07 2019-06-07 [facility] [id number] 11:20:00 11:20:00 [place] Y[place] s - Drive [facility] Medicine l Medicine Outpati ent Clinics 2019-01-04 2019-01-04 [facility] [id number] 14:04:00 14:04:00 [place] Y[place] s - Drive [facility] Medicine l Medicine Outpati ent Clinics 2018-11-23 2018-11-23 [facility] [id number] 09:15:00 09:15:00 t [facility] l Outpati ent Clinics 2018-11-20 2018-11-20 [facility] [id number] 10:13:00 10:13:00 [place] Yeb[place] s - Drive [facility] Medicine l Medicine Outpati ent Clinics 2018-11-15 2018-11-15 [facility] [id number] 15:15:00 15:15:00 [place] Yeb[place] s - Drive [facility] Medicine l Medicine Outpati ent Clinics 2018-10-09 2018-10-09 [facility] [id number] 10:19:00 10:19:00 [place] Y[place] s - Drive [facility] Medicine l Medicine Outpati ent Clinics 2018-06-02 2018-06-02 [facility] [id number] 16:46:00 16:46:00 [place] Y[place] s - Drive [facility] Medicine l Medicine Outpati ent Clinics 2018-05-11 2018-05-11 [facility] [id number] 09:45:00 09:45:00 [place] Y[place] s - Drive [facility] Medicine l Medicine Outpati ent Clinics Results Test Description Test Time Test Comments Results Result Comments Source HOMOCYSTEINE PROFILE 2020-11-01 10:10:00 Test Item Value Reference Range Interpretation Comme nts HOMOCYSTEINE (test code = 15.3 umol/L 0.0-14.5 A Pe rformed At: HD [facility] HOMOCY) [id number] [place], [place] [id number] So MD Ph:[phone] RAPID PLASMA [id number] 06:11:00 Test Item Value Reference Range Interpretation Comments RAPID PLASMA REAGIN Non Reactive Non Reactive Performe d At: HD (test code = RPR) [facility] Ho [id number] [place], [place] [id number] jyoti So MD Ph:[phone] - CT HEAD/BRAIN W/O [id number] 14:36:00 [facility] 1960 Sex: M Name: OTONIEL HENDERSON [facility] : 1960 Age/S: 60 / M [address] [facility] [place] Unit #: [id number] Loc:[place] [address] Phys: Ximena Valdes MD Acct: [id number] Dis Date: Status: ADM IN PHONE #: [phone] Exam Date: 10/31/2020 1420 FAX #: Reason: CVA EXAMS: CPT: [id number] CT HEAD/BRAIN W/O CONT [id number] HISTORY: CVA. CT brain, unenhanced. Reformatted sagittal [...] U19 at 1436 Reported and signed by: Otnoiel Busch M.D CC: Ximena Valdes MD; Karen Shoemaker Technologist:RT Ratna (R)(CT) CTDI: DLP: Trnscb Date/Time: 10/31/2020 (1436) [email or web address] Orig Print D/T: S: 10/31/2020 (6659) PAGE 1 Signed ReportSED [id number] 10:34:00 Test Item Value Reference Range Interpretation Comments SED RATE (test code = SEDW) 7 mm/hr 0-15 SED RATE [id number] 10:33:00 Test Item Value Reference Range Interpretation Comments SED RATE WESTERGREN (test code = 7 mm/hr 0-15 N SEDW) [id number] 07:00:00 Test Item Value Reference Range Interpretation Comments GLYCOSYLATED HEMOGLOBIN (HA1C) 5.5 % A1C 0.0-5.7 N (test code = GLYHGB) ESTIMATED AVERAGE GLUCOSE (test 111 MG/DLest code = EAG) BASIC METABOLIC [id number] 06:55:00 Test Item Value Reference Range Interpretation [...] WITHIN 1 HR AND FREEZE SERUM PROMPTLY.HOMOCYSTEINE [id number] 06:55:00 Test Item Value Reference Range Interpretation Comments HOMOCYSTEINE (test code = HOMOCY) mcMOL/L <9 Comment: FASTING IN AM PATIENT SHOULD BE FASTING OVERNIGHT 10-12 HRS. TAKE BLOOD TO LABASAP. MUST SEPAPATE SERUM FROM CELLS WITHIN 1 HR AND FREEZE SERUM PROMPTLY.CBC W/AUTO [id number] 06:41:00 Test Item Value Reference Range Interpretation [...] NO DIFF/SCN CRITERIA = MDIFF) GLUCOSE BEDSIDE [id number] 23:18:00 Test Item Value Reference Range Interpretation Comments GLUCOSE BEDSIDE TESTING (test code = 94 mg/dL 70-110 N GLUBED) COVID 19 INHOUSE [id number] 15:04:00 Test Item Value Reference Range Interpretation Comments COVID 19 INHOUSE AG NEGATIVE Negative Per manu facturer, (test code = negative result s should [id number]) be treated aspr esumptive and, if inconsi [...] with COVID-19. UA RFLX MICR CULT IF [id number] 14:02:00 Test Item Value Reference Range Interpretation [...] UACULT) Indication for culture: Dysuria/Frequency- CT ANGIO [id number] 13:00:00 [facility] : 1960 Sex: M Name: OTONIEL HENDERSON [facility] : 1960 Age/S: 60 / M [address] [address] [place] Unit #: [id number] Loc:[place] [address] Phys: Anjum Rivera MD Acct: [id number] Dis Date: Status: PRE ER PHONE #: [phone] Exam Date: 10/30/2020 1235 FAX #: Reason: slurred speech EXAMS: CPT: [id number] CT ANGIO NECK [id number]: - CT ANGIO HEAD, - CT ANGIO [...] 1 Signed Report (CONTINUED) Name: OTONIEL HENDERSON [facility] [facility] : 1960 Age/S: 60 / M [address] [address] Unit #: [id number] Loc: [place] [address] Phys: Anjum Rivera MD Acct: [id number] Dis Date: Status: PRE ER PHONE #: [phone] Date: 10/30/2020 1235 FAX #: Reason: slurred speech EXAMS: CPT: [id number] ANGIO NECK 93398 <Continued> stenosis. Findings were personally discussed with [...] (1300) [email or web address] Orig Print D/T: S: 10/30/2020 (3553) PAGE 2 Signed Report- CT ANGIO [id number] 13:00:00 [facility] 1960 Sex: M Name: OTONIEL HENDERSON [facility] : 1960 Age/S: 60 / M [address] Unit #: [id number] Loc:[place] [address] Phys: Anjum Rivera MD Acct: [id number] Dis Date: Status: PRE ER PHONE #: [phone] Exam Date: 10/30/2020 1233 FAX #: Reason: slurred speech EXAMS: CPT: [id number] CT ANGIO HEAD 99141TBFPTTOXDOY: - CT ANGIO HEAD, - CT ANGIO [...] 1 Signed Report (CONTINUED) Name: [facility] 1960 Age/S: 60 / M [address] [address] Unit #: [id number] Loc: [place] [address] Phys: Anjum Rivera MD Acct: [id number] Dis Date: Status: PRE ER PHONE #: [phone] Date: 10/30/2020 1233 FAX #: Reason: slurred speech EXAMS: CPT: [id number] ANGIO HEAD 47846 <Continued> stenosis. Findings were personally discussed with [...] 10/30/2020 (1303) PAGE 2 Signed ReportBASIC METABOLIC [id number] 12:50:00 Test Item Value Reference Range Interpretation [...] 8.9 MG/DL 8.5-10.1 N Completed by Nursing: [id number] 12:50:00 Test Item Value Reference Range Interpretation [...] suman yby method. Completed by Nursing: NOPROTHROMBIN [id number] 12:47:00 Test Item Value Reference Range Interpretation Comments PT PATIENT (test code = PTP) 10.5 SECONDS 9.3-12.9 N INTERNATIONAL NORMAL RATIO 0.94 INR Unit 0.8-1.2 N (test code = INR) THROMBOPLASTIN TIME [id number] 12:47:00 Test Item Value Reference Range Interpretation Comments THROMBOPLASTIN TIME PARTIAL 27.9 SECONDS 26-35 N (test code = PTT) BASIC METABOLIC [id number] 12:43:00 Test Item Value Reference Range Interpretation [...] 8.9 MG/DL 8.5-10.1 N Completed by Nursing: [id number] 12:43:00 Test Item Value Reference Range Interpretation Comments TROPONIN-I (test code = TROPI) NG/ML 0.000-0.045 Completed by Nursing: NO- CT HEAD/BRAIN W/O [id number] 12:40:[address] [facility]AT[facility]ay[facility] : 1960 Sex: M Name: OTONIEL HENDERSON : 1960 Age/S: 60 / M [address] [address] Unit #: [id number] Loc:[place] [address] Phys: Anjum Rivera MD Acct: [id number] Dis Date: Status: PRE ER PHONE #: [phone] Exam Date: 10/30/2020 1231 FAX #: Reason: Code Stroke EXAMS: CPT: [id number] CT HEAD/BRAIN W/O CONT [id number]: - CT HEAD/BRAIN W/O CONT. LOCATION: S17. [...] HENDERSON : 1960 Age/S: 60 / M [address] [address] Unit #: [id number] Loc: [place] [address] Phys: Anjum Rivera MD Acct: [id number] Dis Date: Status: PRE ER PHONE #: [phone] Exam Date: 10/30/2020 1231 FAX #: Reason: Code Stroke EXAMS: CPT: [id number] CT HEAD/BRAIN W/O CONT 57493 <Continued> at 1240 Reported and signed by: Manjinder Antonio M.D. CC: Anjum Rivera MD Technologist:Yohan Love, RT(R)(CT); Kr CTDI: DLP: Trnscb Date/Time: 10/30/2020 (1240) [email or web address] Orig Print D/T: S: 10/30/2020 (3643) PAGE 2 Signed ReportCBC W/O [id number] 12:35:00 Test Item Value Reference Range Interpretation [...] 10.70 fL 7.0-9.6 H MPV) GLUCOSE BEDSIDE [id number] 12:29:00 Test Item Value Reference Range Interpretation Comments GLUCOSE BEDSIDE TESTING (test code 140 mg/dL 70-110 H = GLUBED) BASIC METABOLIC [id number] 06:50:00 Test Item Value Reference Range Interpretation [...] mg/dL 8.8-10.2 N = CA) CBC W/AUTO [id number] 06:40:00 Test Item Value Reference Range Interpretation [...] BA#) 0.07 x10 3/uL 0.0-0.20 N VANCOMYCIN [id number] 13:34:00 Test Item Value Reference Range Interpretation Comments VANCOMYCIN TROUGH (test code = 14.4 mcg/ML 10.0-20.0 N VANCT) Spec Comments: RN PLS DRAW VANCO 30MIN BEFORE DOSE DUE ON 01/30 BASIC METABOLIC [id number] 04:08:00 Test Item Value Reference Range Interpretation [...] code 8.8 mg/dL 8.8-10.2 N = CA) [id number] 04:08:00 Test Item Value Reference Range Interpretation Comments MAGNESIUM (test code = MAG) 1.7 mg/dL 1.4-2.6 N CBC W/AUTO [id number] 03:56:00 Test Item Value Reference Range Interpretation [...] 0.09 x10 3/uL 0.0-0.20 N BASIC METABOLIC [id number] 21:22:00 Test Item Value Reference Range Interpretation [...] mg/dL 8.8-10.2 N = CA) RENAL FUNCTION [id number] 21:22:00 Test Item Value Reference Range Interpretation Comments ALBUMIN (test code = ALB) 3.4 G/DL 3.5-5.0 L PHOSPHOROUS (test code = PHOS) 2.0 mg/dL 2.7-4.5 L LIVER FUNCTION [id number] 21:22:00 Test Item Value Reference Range Interpretation [...] = 63 U/L 45-120 N ALKP) LACTIC [id number] 21:18:00 Test Item Value Reference Range Interpretation Comments LACTIC ACID (test code = LACT) 9.4 mg/dL 4.5-18.0 N PROTHROMBIN [id number] 21:12:00 Test Item Value Reference Range Interpretation [...] 2.5-3.5recurren t systemic emboli sm. THROMBOPLASTIN TIME [id number] 21:12:00 Test Item Value Reference Range Interpretation Comments THROMBOPLASTIN TIME 28.6 SECONDS 26.0-35.9 N INTERPRE TATIVE PARTIAL (test code = DATA: erapeutic PTT) range: Unfractionated heparin:47 - 71 seconds Argatroban:1.5 to 3 times the basel ine PTT PROTHROMBIN [id number] 21:09:00 Test Item Value Reference Range Interpretation [...] 2.5-3.5recurren t systemic emboli sm. THROMBOPLASTIN TIME [id number] 21:09:00 Test Item Value Reference Range Interpretation Comments THROMBOPLASTIN TIME PARTIAL (test SECONDS 26.0-35.9 code = PTT) CBC W/AUTO [id number] 21:08:00 Test Item Value Reference Range Interpretation [...] 0.05 x10 3/uL 0.0-0.20 N CBC W/MANUAL [id number] 05:21:00 Test Item Value Reference Range Interpretation [...] code NORMAL NORMAL = PLTMORPH) RENAL FUNCTION [id number] 05:20:00 Test Item Value Reference Range Interpretation [...] 2.5 mg/dL 2.7-4.5 L code = PHOS) [id number] 05:20:00 Test Item Value Reference Range Interpretation Comments MAGNESIUM (test code = MAG) 1.8 mg/dL 1.4-2.6 N CBC W/MANUAL [id number] 04:48:00 Test Item Value Reference Range Interpretation [...] code = LYMPH) % 20.5-45.5 CBC W/MANUAL [id number] 04:48:00 Test Item Value Reference Range Interpretation [...] (test code = LYMPH) % 20.5-45.5 SURGICAL [id number] 12:52:00 RUN DATE: 01/29/20 [facility] - LAB PAGE 1 RUN TIME: 1252 Specimen Inquiry RUN USER: INTERFACE PATIENT: OTONIEL HENDERSON LOC: PJayeS POD C U #: [id number] AGE/SX: 59/M ROOM: [facility] RE01/25/20REG DR: Cristopher Doty MD : [birth year] BED: 1 DIS: STATUS: ADM IN TLOC: SPEC #: [id number] RECD: 01/28/20 STATUS: FAINA CASTANON #: [id number] SIMON: 01/28/[address] [facility] [address]: Cristopher Doty MD ENTERED: 01/28/20 SP TYPE: SURG OTHR DR: Roxanna Primary or Family Physician Mio Gilbert MD No,DocORDERED: PATHGM3, PATHGM5/2, PATH SPEC, H E STAIN HISTOLOGY: TISSUE ID BLK PCS PARISH LEV / PROCEDURE DISPOSITION ____ ___ ___ ___ ___ COLON SEG NTUMR A 18 1 TISSUES: A. 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 Signed SIGNATURE ON FILE Nita Ashford 01/29/20 1252 END OF REPORT BASIC METABOLIC [id number] 08:29:00 Test Item Value Reference Range Interpretation [...] code 9.2 mg/dL 8.8-10.2 N = CA) [id number] 08:29:00 Test Item Value Reference Range Interpretation Comments MAGNESIUM (test code = MAG) 1.3 mg/dL 1.4-2.6 L CBC W/AUTO [id number] 08:04:00 Test Item Value Reference Range Interpretation [...] x10 3/uL 0.0-0.20 N Novel Coronavirus 2018 [id number] 14:20:00 Test Item Value Reference Range Interpretation Comments Novel Coronavirus NEGATIVE Positive r esults are 2018 nCoV (test indicative o f the presence code = COVID19) yqTIMD-NlZ-5 RNA, clinical correlation wit h patient historyand [...] VERIFIEDbyP.LAB.RS, on 01/26/20, @ 1934.- XR ABDOMEN [id number] 14:18:00Patient Name: OTONIEL HENDERSON Unit No: [id number] EXAMS: CPT CODE: [id number] XR ABDOMEN 1V 22357 Abdomen one view supine 01/28/2020 CLINICAL INDICATION: [...] Printed Date/Time: 01/28/2020 (1421) Name: OTONIEL HENDERSON [facility] Phys: José Antonio Zamora MD [address] : 1960 Age: 59 Sex: [place] [address] Loc: P.0733 1 Exam Date: 01/28/2020 Status: ADM IN PH: FAX: PAGE 1 Signed ReportCOMPREHENSIVE METABOLIC [id number] 07:39:00 Test Item Value Reference Range Interpretation [...] 45-120 N PHOSPHATASE (test code = ALKP) [id number] 07:39:00 Test Item Value Reference Range Interpretation Comments MAGNESIUM (test code = MAG) 1.4 mg/dL 1.4-2.6 N CBC W/AUTO [id number] 07:12:00 Test Item Value Reference Range Interpretation [...] = BA#) 0.10 x10 3/uL 0.0-0.20 N [id number] 15:08:00 Test Item Value Reference Range Interpretation Comments LITHIUM (test 0.5 mmol/L 0.6-1.2 L code = LITH) Detection Limit = 0.1 <0.1 indicate s None DetectedPerform ed At: [address] [id number] So MD Ph:[phone] [id number] 15:08:00 Test Item Value Reference Range Interpretation Comments LITHIUM (test 0.5 mmol/L 0.6-1.2 L code = LITH) Detection Limit = 0.1 <0.1 indicate s None DetectedPerform ed At: [facility] [id number] So MD Ph:[phone] Novel Coronavirus 2019 [id number] 07:11:00 Test Item Value Reference Range Interpretation [...] PHOSPHATASE (test code = ALKP) CBC W/AUTO [id number] 04:21:00 Test Item Value Reference Range Interpretation [...] 3/uL 0.0-0.20 N - CT ABD PELVIS [id number] 09:58:00Patient Name: OTONIEL HENDERSON Unit No: [id number] EXAMS: CPT CODE: [id number] CT ABD PELVIS W/CONT 38616 CT abdomen and pelvis with IV contrast. [...] Additional findings as above. Name: OTONIEL HENDERSON [facility] Phys: VARSHA.02 - Norbert William MD [address] : 1960 Age: 59 Sex: [place] [address] Loc: P.0723 1 Exam Date: 01/26/2020 Status: ADM IN PH: FAX: PAGE 1 Signed Report (CONTINUED) Patient Name: OTONIEL HENDERSON Unit No: [id number] EXAMS: CPT CODE: [id number] CT ABD PELVIS W/CONT 30752 <Continued> at 0958 Reported and signed by: OTONIEL ROSSI M.D. CC: Cristopher Doty MD; Norbert William MD Technologist: ANTONIO Martin(Jeannine)(CT) CTDI: 11.68 DLP: 602 Trscr Dt/Tm: 01/26/2020 (0958) by:[email or web address] Printed Date/Time: 01/26/2020 (1001)Name: OTONIEL HENDERSON [facility] Phys: VARSHA.[email or web address] - Norbert William MD [address] : 1960 Age: 59 Sex: [place] [address] [id number] Loc: P.0723 1 Exam Date: 01/26/2020 Status: ADM IN PH: FAX: PAGE 2 Signed ReportCOMPREHENSIVE METABOLIC [id number] 05:50:00 Test Item Value Reference Range Interpretation [...] PHOSPHATASE (test code = ALKP) CBC W/AUTO [id number] 04:55:00 Test Item Value Reference Range Interpretation [...] 0.15 x10 3/uL 0.0-0.20 N COMPREHENSIVE METABOLIC [id number] 18:44:00 Test Item Value Reference Range Interpretation [...] N PHOSPHATASE (test code = ALKP) PROTHROMBIN [id number] 18:32:00 Test Item Value Reference Range Interpretation [...] 2.5-3.5recurren t systemic emboli sm. CBC W/AUTO [id number] 18:26:00 Test Item Value Reference Range Interpretation [...]
--- NOTE | 2022-01-24 14:28 | RAD REPORT ---
EXAM DESCRIPTION: CT - Head Brain Wo Cont - 01/24/2022 2:17 pm CLINICAL HISTORY: AMS COMPARISON: Head Brain Wo Cont dated 01/02/2022; Head Brain Wo Cont dated 08/29/2021 TECHNIQUE: All CT scans are performed using dose optimization technique as appropriate and may inclu de automated exposure control or mA/KV adjustment according to patient size. FINDINGS: Interval development of a moderate left-sided MCA territory infarct. Background of chronic small vessel ischemic changes. No acute intracranial hemorrhage. No mass effect or midline shift. Ot her scattered areas of white matter hypoattenuation. The paranasal sinuses and mastoids are clear. The calvarium is intact. IMPRESSION: New moderate sized left MCA territory infarct may be acute or subacute. MRI could better evaluate.
--- NOTE | 2022-01-24 14:31 | RAD REPORT ---
EXAM DESCRIPTION: RAD - Chest Single View - 01/24/2022 2:25 pm CLINICAL HISTORY: AMS COMPARISON: Chest Single View dated 01/02/2022; Chest Single View dated 10/28/2021; Chest Single View dated 08/29/2021; Chest Single View dated 08/17/2021 FINDINGS: Lines: None. Lungs: No evidence of edema or pneumonia. Pleural: No significant pleural effusions or pneumothorax. Cardiac: The heart size is within normal limits. Bones: No acute fractures. Other: Loop recorder overlies the chest. IMPRESSION: No acute cardiopulmonary disease.
[2022-01-24 15:00] LABS: Absolute Lymphocytes (CBC) 1.3 K/uL (0.7-4.9); Hematocrit 39.7 % (39.6-49.0); MPV 8.6 fL (7.6-11.3); RBC Red Blood Cell Count 4.56 M/uL (4.33-5.43)
[2022-01-24 15:08] LABS: Protime INR 1.04
[2022-01-24 15:12] LABS: Albumin 3.9 g/dL (3.4-5.0); Bilirubin Direct 0.2 mg/dL (0-0.2); Bilirubin Total 0.4 mg/dL (0.2-1.0); Potassium 3.9 mmol/L (3.5-5.1); Protein, Total 7.6 g/dL (6.4-8.2); Troponin High Sensitivity 18.3 pg/mL (<58.9)
[2022-01-24] MEDS ORDERED: LORazepam 2 MG/ML VIAL ONE ×3 (15:17→16:34)
[2022-01-24] MEDS ORDERED: NA CHLORIDE 0.9% 500 ML ONE (15:44)
[2022-01-24] MEDS ORDERED: ATORVASTATIN 20 MG TAB ONE (15:44)
[2022-01-24] MEDS ORDERED: CLOPIDOGREL 75 MG TABLET ONE (15:44)
[2022-01-24] MEDS ORDERED: ASPIRIN 325 MG TAB ONE (15:44)
[2022-01-24] MEDS ORDERED: FOLIC ACID 5 MG/ML VIAL ONE (15:45)
[2022-01-24] MEDS ORDERED: WATER FOR INJ,STERILE 10 ML ONE (16:34)
[2022-01-24] MEDS ORDERED: ZIPRASIDONE MESYLA 20 MG/VIAL IM ONE (16:34)
[2022-01-24] MEDS ORDERED: DIPHENHYDRAMINE 50 MG/ML VIAL ONE (18:19)
--- NOTE | 2022-01-24 22:06 | RAD REPORT ---
EXAM DESCRIPTION: CT - Head angio - 01/24/2022 9:58 pm CLINICAL HISTORY: Aphasia;Confused COMPARISON: Head Brain Wo Cont dated 01/24/2022; Head Brain Wo Cont dated 01/02/2022 TECHNIQUE: CT angiography of the head was performed with MIPs. All CT scans are performed using dose optimization technique as appropriate and may include automated exposure control or mA/KV adjustment according to patient size. FINDINGS: Anterior circulation: High -grade stenosis measuring approximately 8 millimeters in length of the left distal M1 segment of the middle cerebral artery. No arteriovenous malformation identified. Posterior circulation: No aneurysm or large vessel occlusion. No hemodynamically significant stenosis. No arteriovenous malf ormation identified. IMPRESSION: Segmental high-grade stenosis involving the distal left M1 segment of the middle cerebra l artery corresponding with the area of suspected infarct. Calcified plaque at the ICAs, otherwise no clinically significant findings identified.
--- NOTE | 2022-01-24 22:28 | ER ---
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 States he ll1 stopped talking to her in complete sentences two days ago. Eating normal. No fever. No N/V/D. Coronavirus screen: Vaccine status: Patient reports receiving the 2nd dose of the covid vaccine. Client denies travel out of the [place] in the last 14 days. At this time, the client does not indicate any symptoms associated with coronavirus-19. Ebola Screen: Patient denies travel to an Ebola-affected area in the 21 days before illness onset. Initial Sepsis Screen: Does the patient meet any 2 criteria? HR > 90 bpm. No. Patient's initial sepsis screen is negative. Does the patient have a suspected source of infection? No. Patient's initial sepsis screen is negative. Risk Assessment: Do you want to hurt yourself or someone else? Patient reports no desire to harm self or others. Onset of symptoms was January 22, 2022. 12:48 Method Of Arrival: Ambulatory ll1 12:48 Acuity: MARION 3 ll1 Triage Assessment: 12:51 General: Appears unkempt, Behavior is calm, cooperative, appropriate for age. Pain: ll1 Complains of pain in shoulder. Neuro: Reports not talking in complete sentences. . Musculoskeletal: Reports pain in shoulder. Injury Description: Bruise. Historical: - Allergies: 12:50 No Known Allergies; ll1 - PMHx: 12:50 Anxiety; Bipolar disorder; Hypertensive disorder; strokes x 3; adhd; ll1 - PSHx: 12:50 knee replacements; ll1 - Immunization history:: Client reports receiving the 2nd dose of the Covid vaccine. - Social history:: Smoking status: Patient reports the use of cigarette tobacco products, smokes one-half pack cigarettes per day. Screenin:08 Abuse screen: Denies threats or abuse. Nutritional screening: No deficits noted. vg1 Tuberculosis screening: No symptoms or risk factors identified. Fall Risk No fall in past 12 months (0 pts). No secondary diagnosis (0 pts). IV access (20 points). Ambulatory Aid- Crutches/Cane/Walker (15 pts). Gait- Weak (10 pts.). Mental Status- Overestimates/Forgets Limitations (15 pts.). Total Mcdaniel Fall Scale indicates High Risk Score (45 or more points). Fall prevention measures have been instituted. Side Rails Up X 2 Placed Close to Nursing Station Family Present and informed to notify staff if the need to leave the bedside. 16:00 The patient has not been NPO before screening. The patient is alert, able to follow vg1 commands. Pt unable to speak The patient is exhibiting difficulty speaking. pt appears to have minimal comprehension The patient is able to swallow own secretions with no drooling or need for suction. The patient did not tolerate one teaspoon of water. Drooling, immediate coughing, gurgling, or clearing of the throat was noted. Bedside swallow screening discontinued. Patient kept NPO until cleared by Speech Therapy or Physician. The patient failed the bedside swallow screening. The patient will be kept NPO until cleared by Speech Therapy or Physician. Provider notified of bedside swallow screening results: Himanshu Yates FLOOR CLERK. Assessment: 14:08 General: Appears in no apparent distress. comfortable, Behavior is calm, cooperative. vg1 Pain: Denies pain. Neuro: Level of Consciousness is awake, alert, obeys commands, Oriented to person, Moves all extremities. Gait is unsteady, Speech pt stated pt had a stroke in August and has been doing speech therapy, stated pt has trouble speaking at times. Facial symmetry appears normal. Cardiovascular: Patient's skin is warm and dry. Respiratory: Airway is patent Respiratory effort is even, unlabored. GI: No signs and/or symptoms were reported involving the gastrointestinal system. : No signs and/or symptoms were reported regarding the genitourinary system. EENT: No signs and/or symptoms were reported regarding the EENT system. Derm: Skin is intact, is healthy with good turgor. Musculoskeletal: Circulation, motion, and sensation intact. 15:10 Reassessment: Patient appears in no apparent distress at this time. Patient and/or vg1 family updated on plan of care and expected duration. Pain level reassessed. Pt appears to be agitated, multiple attempts to get out of bed. 15:53 Reassessment: pt remains to be agitated after a total of 2 mg of Ativan, attempting to vg1 get OOB and aggressively grabbing RN and not following directions; provider notified; received VO from Dr Nuno to administer a Ativan 2 mg IVP x1 and Geodon 20 mg IM x1. 16:00 Reassessment: pt failed swallow screen, provider notified, PO meds not administered. vg1 17:29 Reassessment: Patient appears in no apparent distress at this time. Patient and/or vg1 family updated on plan of care and expected duration. Pain level reassessed. 18:18 Reassessment: Pt appears to be agitated and attempting to get OOB; provider notified. vg1 Received VO to administer Benadryl 25 mg IVP x1. Vital Signs: 12:48 BP 130 / 81; Pulse 115; Resp 17; Temp 97.6; Pulse Ox 98% ; Weight 81.65 kg; Height 5 ll1 ft. 11 in. (180.34 cm); 15:00 BP 130 / 81; Pulse 100; Resp 18; Pulse Ox 100% ; vg1 16:00 BP 140 / 117; Pulse 95; Resp 17; Pulse Ox 97% on R/A; vg1 17:00 BP 141 / 88; Pulse 81; Resp 22; Pulse Ox 97% on R/A; vg1 18:30 BP 163 / 129; Pulse 99; Resp 18 S; Pulse Ox 98% on R/A; as6 21:12 BP 181 / 116; Pulse 88; Resp 21 S; Pulse Ox 100% on R/A; as6 22:04 BP 203 / 119; Pulse 96; Resp 20 S; Pulse Ox 98% on R/A; as6 23:20 BP 174 / 93; Pulse 92; Resp 19; Pulse Ox 98% on R/A; kd3 12:48 Body Mass Index 25.10 (81.65 kg, 180.34 cm) ll1 NIH Stroke Scale Scores: 14:05 NIHSS Score: 8 vg1 14:05 NIHSS Score: 8 pm1 ED Course: 12:40 Patient arrived in ED. ds1 12:50 Triage completed. ll1 12:51 Arm band placed on. ll1 13:46 Himanshu Yates NP is PHCP. pm1 13:46 Bjorn Nuno MD is Attending Physician. pm1 13:55 Anne Almendarez, RN is Primary Nurse. vg1 14:08 Patient has correct armband on for positive identification. Placed in gown. Bed in low vg1 position. Call light in reach. Side rails up X2. Adult w/ patient. 14:08 No provider procedures requiring assistance completed. vg1 14:18 CT Head Brain wo Cont In Process Unspecified. EDMS 14:26 XRAY Chest (1 view) In Process Unspecified. EDMS 17:31 Cleaned of incontinence. Linen changed. vg1 20:11 Primary Nurse role handed off by Anne Almendarez, RN cs9 20:30 Ayesha Disla, NIKI is Primary Nurse. kd3 21:35 Missed attempt(s): Bleeding controlled, band aid applied, catheter tip intact. oe 21:41 Inserted saline lock: 20 gauge in right antecubital area, using aseptic technique. as6 22:00 CT Head Angio In Process Unspecified. EDMS 22:26 Shahnaz Rao MD is Hospitalizing Provider. pm1 01/25 00:56 Patient admitted, IV remains in place. kd3 Administered Medications: 01/24 15:20 Drug: Ativan (LORazepam) 1 mg Route: IVP; Site: left forearm; vg1 15:35 Follow up: Response: No adverse reaction; No change in condition vg1 01/25 00:57 Follow up: Response: No adverse reaction kd3 01/24 15:40 Drug: NS 0.9% 500 ml Route: IV; Rate: bolus; Site: left antecubital; vg1 16:59 Follow up: IV Status: Completed infusion; IV Intake: 500ml vg1 01/25 00:58 Follow up: Response: No adverse reaction kd3 01/24 15:40 Drug: foLIC Acid 1 mg Route: IVPB; Site: left antecubital; vg1 17:00 Follow up: Response: No adverse reaction vg1 01/25 00:58 Follow up: Response: No adverse reaction kd3 00:58 Follow up: IV Status: Completed infusion kd3 01/24 15:43 Drug: Ativan (LORazepam) 1 mg Route: IVP; Site: left forearm; vg1 15:50 Follow up: Response: No adverse reaction; No change in condition vg1 01/25 00:58 Follow up: Response: No adverse reaction kd3 01/24 16:43 Drug: Geodon (ziprasidone) 20 mg Route: IM; Site: left deltoid; vg1 18:19 Follow up: Response: No adverse reaction; No change in condition vg1 01/25 00:59 Follow up: Response: No adverse reaction kd3 01/24 16:44 Drug: Ativan (LORazepam) 1 mg Route: IVP; Site: left antecubital; vg1 16:58 Not Given (pt failed swallow screenn): Lipitor (atorvastatin) 40 mg PO once vg1 16:58 Not Given (Pt failed swallow screenn): PlaVIX (clopidogrel) 75 mg PO once vg1 16:59 Not Given (pt failed swallow screenn): Aspirin 325 mg PO once vg1 18:05 Drug: Ativan (LORazepam) 2 mg Route: IVP; Site: left antecubital; vg1 18:18 Follow up: Response: No adverse reaction; No change in condition vg1 01/25 00:59 Follow up: Response: No adverse reaction kd3 01/24 18:19 Drug: Benadryl (diphenhydrAMINE) 25 mg Route: IVP; Site: left forearm; vg1 01/25 00:59 Follow up: Response: No adverse reaction kd3 01/24 22:01 Drug: NS 0.9% 1000 ml Route: IV; Rate: 125 ml/hr; Site: right antecubital; as6 01/25 01:00 Follow up: Response: No adverse reaction kd3 01/24 22:43 Drug: Labetalol 10 mg Route: IVP; Infused Over: 2 mins; Site: left antecubital; kd3 01/25 00:59 Follow up: Response: Blood pressure is lowered kd3 01/24 22:50 Drug: Lovenox (enoxaparin) 1 mg/kg Route: Sub-Q; Site: left lower abdomen; kd3 01/25 00:59 Follow up: Response: No adverse reaction kd3 01/24 23:23 Drug: Labetalol 10 mg Route: IVP; Infused Over: 2 mins; Site: right antecubital; as6 01/25 01:00 Follow up: Response: Blood pressure is lowered kd3 Intake: 01/24 16:59 IV: 500ml; Total: 500ml. vg1 Outcome: 22:27 Decision to Hospitalize by Provider. pm1 01/25 00:55 Admitted to Med/surg accompanied by tech, room 216, Report called to Steven PRINCE kd3 Condition: stable Discharge instructions given to patient, Instructed on the need for admit, Demonstrated understanding of instructions, follow-up care. 01:13 Patient left the ED. kd3 NIH Stroke Scale - NIH Stroke Score Date: 01/24/2022 Time: 14:05 Total Score = 8 1a. Level of Consciousness (LOC) - 0(Alert) 1b. Level of Consciousness (LOC) (Month \T\ Age) - 2(Neither) 1c. LOC Commands (Open \T\ Closes Eyes/It Security Specialist) - 1(One) 2. Best Gaze (Lateral Gaze Paresis) - 0(Normal) 3. Visual Field Loss - 0(No visual loss) 4. Facial Palsy - 0(Normal) 5a. Left Arm: Motor (10-second hold) - 0(No drift) 5b. Right Arm: Motor (10-second hold) - 0(No drift) 6a. Left Leg: Motor (5-second hold - always test supine) - 0(No drift) 6b. Right Leg: Motor (5-second hold - always test supine) - 0(No drift) 7. Limb Ataxia (finger/nose \T\ heel/armstrong - test with eyes open) - 0(Absent) 8. Sensory Loss (pinprick arms/legs/face) - 0(Normal) 9. Best Language: Aphasia (description/naming/reading) - 3(Mute, global aphasia) 10. Dysarthria (speech clarity - read or repeat words) - 2(Severe) 11. Extinction and Inattention (visual/tactile/auditory/spatial/personal) - 0(No abnormality) Initials: vg1 NIH Stroke Scale - NIH Stroke Score Date: 01/24/2022 Time: 14:05 Total Score = 8 1a. Level of Consciousness (LOC) - 0(Alert) 1b. Level of Consciousness (LOC) (Month \T\ Age) - 2(Neither) 1c. LOC Commands (Open \T\ Closes Eyes/It Security Specialist) - 1(One) 2. Best Gaze (Lateral Gaze Paresis) - 0(Normal) 3. Visual Field Loss - 0(No visual loss) 4. Facial Palsy - 0(Normal) 5a. Left Arm: Motor (10-second hold) - 0(No drift) 5b. Right Arm: Motor (10-second hold) - 0(No drift) 6a. Left Leg: Motor (5-second hold - always test supine) - 0(No drift) 6b. Right Leg: Motor (5-second hold - always test supine) - 0(No drift) 7. Limb Ataxia (finger/nose \T\ heel/armstrong - test with eyes open) - 0(Absent) 8. Sensory Loss (pinprick arms/legs/face) - 0(Normal) 9. Best Language: Aphasia (description/naming/reading) - 3(Mute, global aphasia) 10. Dysarthria (speech clarity - read or repeat words) - 2(Severe) 11. Extinction and Inattention (visual/tactile/auditory/spatial/personal) - 0(No abnormality) Initials: pm1 Signatures: Dispatcher [employer] [facility] Charlene Berry ds1 Himanshu Yates, KIRK FLOOR CLERK pm1 Isreal Tenorio Victoria, RN RN vg1 Christine Forrester RN RN [email or web address] Kayleen Couch 9 Burke Malik, NIKI PRINCE as6 Ayesha Disla RN RN kd3 Corrections: (The following items were deleted from the chart) 01/24 14:12 14:08 Neuro: Level of Consciousness is awake, alert, obeys commands, Oriented vg1 to person, place, time, situation, Moves all extremities. Gait is unsteady, Speech pt stated pt had a stroke in August and has been doing speech therapy, stated pt has trouble speaking at times. Facial symmetry appears normal, vg1 16:25 16:16 Reassessment: pt failed swallow screen, provider notified, PO meds not vg1 administered. vg1 16:26 14:05 The patient has not been NPO before screening. The patient is alert, able vg1 to follow commands. Pt unable to speak The patient is exhibiting difficulty speaking. pt appears to have minimal comprehension The patient is able to swallow own secretions with no drooling or need for suction. The patient did not tolerate one teaspoon of water. Drooling, immediate coughing, gurgling, or clearing of the throat was noted. Bedside swallow screening discontinued. Patient kept NPO until cleared by Speech Therapy or Physician. The patient failed the bedside swallow screening. The patient will be kept NPO until cleared by Speech Therapy or Physician. Provider notified of bedside swallow screening results: Himanshu Yates NP vg1 17:03 16:00 Response: No adverse reaction; No change in condition vg1 vg1 17:03 16:00 Response: No adverse reaction; No change in condition vg1 vg1 17:30 17:29 Reassessment: Patient appears in no apparent distress at this time. vg1 Patient and/or family updated on plan of care and expected duration. Pain level reassessed. vg1 21:42 21:41 Missed attempt(s): Bleeding controlled, band aid applied, catheter tip oe intact. oe 21:45 21:41 Inserted saline lock: 20 gauge in left antecubital area, using aseptic as6 technique. oe
--- NOTE | 2022-01-24 22:28 | EDPHYS ---
Physician Documentation [facility] Name: Gregory Dumont Age: 61 yrs Sex: Male : 1960 Arrival Date: 01/24/2022 Time: 12:40 Bed 5 Private MD: ED Physician Bjorn Nuno HPI: 01/24 14:05 This 61 yrs old Male presents to ER via Ambulatory with complaints of Fall Injury. pm1 14:05 Details of fall: The patient fell from an upright position, while standing. Onset: The pm1 symptoms/episode began/occurred just prior to arrival. Associated injuries: The patient sustained right scapular area, contusion. Severity of symptoms: in the emergency department the symptoms have improved. The patient has not recently seen a physician. Patient presenting to the ER with complaints of fall injury to right posterior shoulder. Patient was walking and fell back with resulting contusion to right shoulder that has since resolved since arrival to the ER. No head injury no headache no neck pain. Patient's also reports that he has not been talking to her for over 48 hours. Typically he is able to talk to her in sentences, for greater than 48 hours he has only been able to say 1 word at a time. Patient's significant other thought that he was just upset and not talking to your initially because she had just told him that she wanted a divorce, and that he was just getting her the silent treatment. Historical: - Allergies: 12:50 No Known Allergies; ll1 - PMHx: 12:50 Anxiety; Bipolar disorder; Hypertensive disorder; strokes x 3; adhd; ll1 - PSHx: 12:50 knee replacements; ll1 - Immunization history:: Client reports receiving the 2nd dose of the Covid vaccine. - Social history:: Smoking status: Patient reports the use of cigarette tobacco products, smokes one-half pack cigarettes per day. ROS: 14:05 Constitutional: Negative for fever, chills, and weight loss, Cardiovascular: Negative pm1 for chest pain, palpitations, and edema, Respiratory: Negative for shortness of breath, cough, wheezing, and pleuritic chest pain, Abdomen/GI: Negative for abdominal pain, nausea, vomiting, diarrhea, and constipation, Back: Negative for injury and pain, Skin: Negative for injury, rash, and discoloration. 14:05 MS/extremity: Positive for contusion, of the right scapular area, Negative for decreased range of motion, deformity. 14:05 Neuro: Positive for Change in speech greater than 2 days ago after they had an argument about her requesting a divorce from him. 14:05 All other systems are negative. Exam: 14:05 Back: No spinal tenderness. No costovertebral tenderness. Full range of motion. No pm1 contusion prsesent Skin: Warm, dry with normal turgor. Normal color with no rashes, no lesions, and no evidence of cellulitis. MS/ Extremity: Pulses equal, no cyanosis. Neurovascular intact. Full, normal range of motion. 14:05 Constitutional: The patient appears in no acute distress, awake, comfortable, non-diaphoretic, non-toxic, well developed, well hydrated, well groomed, well nourished, restless. 14:05 Head/face: Exam is negative for 14:05 Cardiovascular: Exam negative for acute changes, Rate: normal, Rhythm: regular, Pulses: no pulse deficits are appreciated. 14:05 Respiratory: Exam negative for acute changes, respiratory distress, shortness of breath, Breath sounds: are clear throughout. 14:05 Abdomen/GI: Exam negative for acute changes, Inspection: abdomen appears normal, Palpation: abdomen is soft and non-tender, in all quadrants. 14:05 Neuro: Exam negative for acute changes. Vital Signs: 12:48 BP 130 / 81; Pulse 115; Resp 17; Temp 97.6; Pulse Ox 98% ; Weight 81.65 kg; Height 5 ll1 ft. 11 in. (180.34 cm); 15:00 BP 130 / 81; Pulse 100; Resp 18; Pulse Ox 100% ; vg1 16:00 BP 140 / 117; Pulse 95; Resp 17; Pulse Ox 97% on R/A; vg1 17:00 BP 141 / 88; Pulse 81; Resp 22; Pulse Ox 97% on R/A; vg1 18:30 BP 163 / 129; Pulse 99; Resp 18 S; Pulse Ox 98% on R/A; as6 21:12 BP 181 / 116; Pulse 88; Resp 21 S; Pulse Ox 100% on R/A; as6 22:04 BP 203 / 119; Pulse 96; Resp 20 S; Pulse Ox 98% on R/A; as6 23:20 BP 174 / 93; Pulse 92; Resp 19; Pulse Ox 98% on R/A; kd3 12:48 Body Mass Index 25.10 (81.65 kg, 180.34 cm) ll1 NIH Stroke Scale Scores: 14:05 NIHSS Score: 8 vg1 14:05 NIHSS Score: 8 pm1 MDM: 13:46 Patient medically screened. pm1 13:57 Data reviewed: vital signs. Data interpreted: Pulse oximetry: on room air is 98 %. pm1 Interpretation: normal. 15:05 Physician consultation: Tigre Romero MD regarding consult, patient's condition, CTA, pm1 ultrasounds carotid, MRI tomorrow. Will continue his aspirin, atorvastatin, Plavix, and folic acid. 15:10 Physician consultation: Shahnaz Rao MD regarding admission, patient's condition, pm1 would like CTA. 17:38 ED course: Pending CTA for disposition . pm1 22:19 Counseling: I had a detailed discussion with the patient and/or guardian regarding: the pm1 historical points, exam findings, and any diagnostic results supporting the discharge/admit diagnosis, lab results, radiology results. 22:24 Physician consultation: Fabiola NORIEGA was called at 22:25, was contacted at 22:25, pm1 regarding and will see patient in ED. 01/24 14:05 Order name: Basic Metabolic Panel; Complete Time: 15:16 pm1 01/24 14:05 Order name: CBC with Diff; Complete Time: 15:16 pm1 01/24 14:05 Order name: LFT's; Complete Time: 15:16 pm1 01/24 14:05 Order name: NT PRO-BNP; Complete Time: 15:16 pm1 01/24 14:05 Order name: PT-INR; Complete Time: 15:16 pm1 01/24 14:05 Order name: Troponin HS; Complete Time: 15:16 pm1 01/24 14:05 Order name: XRAY Chest (1 view); Complete Time: 14:50 pm1 01/24 14:05 Order name: CT Head Brain wo Cont; Complete Time: 14:50 pm1 01/24 14:05 Order name: UDS; Complete Time: 00:07 pm1 01/24 14:53 Order name: COVID-19 SARS RT PCR (Document "Date of Onset" if Symptomatic); Complete ph Time: 17:21 01/24 15:11 Order name: CT Head Angio; Complete Time: 22:13 pm1 01/24 23:55 Order name: Urine Dipstick-Ancillary; Complete Time: 00:07 EDMS 01/24 14:05 Order name: EKG; Complete Time: 14:06 pm1 01/24 14:05 Order name: Cardiac monitoring; Complete Time: 14:58 pm1 01/24 23:27 Order name: Social Service Consult EDKY 01/24 14:05 Order name: EKG - Nurse/Tech; Complete Time: 14:58 pm1 01/24 14:05 Order name: IV Saline Lock; Complete Time: 14:58 pm1 01/24 14:05 Order name: Labs collected and sent; Complete Time: 14:59 pm1 01/24 14:05 Order name: O2 Per Protocol; Complete Time: 14:08 pm1 01/24 14:05 Order name: O2 Sat Monitoring; Complete Time: 14:08 pm1 01/24 14:05 Order name: Urine Dipstick-Ancillary (obtain specimen); Complete Time: 00:06 pm1 Administered Medications: 15:20 Drug: Ativan (LORazepam) 1 mg Route: IVP; Site: left forearm; vg1 15:35 Follow up: Response: No adverse reaction; No change in condition 01/25 00:57 Follow up: Response: No adverse reaction 01/24 15:40 Drug: NS 0.9% 500 ml Route: IV; Rate: bolus; Site: left antecubital; vg1 16:59 Follow up: IV Status: Completed infusion; IV Intake: 500ml 01/25 00:58 Follow up: Response: No adverse reaction 01/24 15:40 Drug: foLIC Acid 1 mg Route: IVPB; Site: left antecubital; vg1 17:00 Follow up: Response: No adverse reaction 01/25 00:58 Follow up: Response: No adverse reaction kd3 00:58 Follow up: IV Status: Completed infusion 01/24 15:43 Drug: Ativan (LORazepam) 1 mg Route: IVP; Site: left forearm; vg1 15:50 Follow up: Response: No adverse reaction; No change in condition 01/25 00:58 Follow up: Response: No adverse reaction 01/24 16:43 Drug: Geodon (ziprasidone) 20 mg Route: IM; Site: left deltoid; vg1 18:19 Follow up: Response: No adverse reaction; No change in condition vg1 01/25 00:59 Follow up: Response: No adverse reaction kd3 01/24 16:44 Drug: Ativan (LORazepam) 1 mg Route: IVP; Site: left antecubital; vg1 16:58 Not Given (pt failed swallow screenn): Lipitor (atorvastatin) 40 mg PO once vg1 16:58 Not Given (Pt failed swallow screenn): PlaVIX (clopidogrel) 75 mg PO once vg1 16:59 Not Given (pt failed swallow screenn): Aspirin 325 mg PO once vg1 18:05 Drug: Ativan (LORazepam) 2 mg Route: IVP; Site: left antecubital; vg1 18:18 Follow up: Response: No adverse reaction; No change in condition vg1 01/25 00:59 Follow up: Response: No adverse reaction kd3 01/24 18:19 Drug: Benadryl (diphenhydrAMINE) 25 mg Route: IVP; Site: left forearm; vg1 01/25 00:59 Follow up: Response: No adverse reaction kd3 01/24 22:01 Drug: NS 0.9% 1000 ml Route: IV; Rate: 125 ml/hr; Site: right antecubital; as6 01/25 01:00 Follow up: Response: No adverse reaction kd3 01/24 22:43 Drug: Labetalol 10 mg Route: IVP; Infused Over: 2 mins; Site: left antecubital; kd3 01/25 00:59 Follow up: Response: Blood pressure is lowered kd3 01/24 22:50 Drug: Lovenox (enoxaparin) 1 mg/kg Route: Sub-Q; Site: left lower abdomen; kd3 01/25 00:59 Follow up: Response: No adverse reaction kd3 01/24 23:23 Drug: Labetalol 10 mg Route: IVP; Infused Over: 2 mins; Site: right antecubital; as6 01/25 01:00 Follow up: Response: Blood pressure is lowered kd3 Disposition Summary: 01/24/22 22:27 Hospitalization Ordered Hospitalization Status: Inpatient Admission pm1 Provider: Rao, Mohammad pm1 Location: Telemetry/MedSurg (Inpatient) pm1 Condition: Stable pm1 Problem: new pm1 Symptoms: have improved pm1 Bed/Room Type: Standard pm1 Room Assignment: 216(01/24/22 23:31) lp1 Diagnosis - Cerebral infarction, unspecified pm1 Forms: - Medication Reconciliation Form pm1 - SBAR form pm1 NIH Stroke Scale - NIH Stroke Score Date: 01/24/2022 Time: 14:05 Total Score = 8 1a. Level of Consciousness (LOC) - 0(Alert) 1b. Level of Consciousness (LOC) (Month \\T\\ Age) - 2(Neither) 1c. LOC Commands (Open \\T\\ Closes Eyes/Compensation/Benefits Specialist) - 1(One) 2. Best Gaze (Lateral Gaze Paresis) - 0(Normal) 3. Visual Field Loss - 0(No visual loss) 4. Facial Palsy - 0(Normal) 5a. Left Arm: Motor (10-second hold) - 0(No drift) 5b. Right Arm: Motor (10-second hold) - 0(No drift) 6a. Left Leg: Motor (5-second hold - always test supine) - 0(No drift) 6b. Right Leg: Motor (5-second hold - always test supine) - 0(No drift) 7. Limb Ataxia (finger/nose \\T\\ heel/armstrong - test with eyes open) - 0(Absent) 8. Sensory Loss (pinprick arms/legs/face) - 0(Normal) 9. Best Language: Aphasia (description/naming/reading) - 3(Mute, global aphasia) 10. Dysarthria (speech clarity - read or repeat words) - 2(Severe) 11. Extinction and Inattention (visual/tactile/auditory/spatial/personal) - 0(No abnormality) Initials: vg1 NIH Stroke Scale - NIH Stroke Score Date: 01/24/2022 Time: 14:05 Total Score = 8 1a. Level of Consciousness (LOC) - 0(Alert) 1b. Level of Consciousness (LOC) (Month \\T\\ Age) - 2(Neither) 1c. LOC Commands (Open \\T\\ Closes Eyes/Compensation/Benefits Specialist) - 1(One) 2. Best Gaze (Lateral Gaze Paresis) - 0(Normal) 3. Visual Field Loss - 0(No visual loss) 4. Facial Palsy - 0(Normal) 5a. Left Arm: Motor (10-second hold) - 0(No drift) 5b. Right Arm: Motor (10-second hold) - 0(No drift) 6a. Left Leg: Motor (5-second hold - always test supine) - 0(No drift) 6b. Right Leg: Motor (5-second hold - always test supine) - 0(No drift) 7. Limb Ataxia (finger/nose \\T\\ heel/armstrong - test with eyes open) - 0(Absent) 8. Sensory Loss (pinprick arms/legs/face) - 0(Normal) 9. Best Language: Aphasia (description/naming/reading) - 3(Mute, global aphasia) 10. Dysarthria (speech clarity - read or repeat words) - 2(Severe) 11. Extinction and Inattention (visual/tactile/auditory/spatial/personal) - 0(No abnormality) Initials: pm1 Addendum: 01/28/2022 18:38 Co-signature as Attending Physician, Bjorn Nuno MD I agree with the [facility] assessment and plan of care. Signatures: Dispatcher [employer] Bjorn Page MD MD [facility] Lupis Suárez, RN RN lp1 Himanshu Yates, CLAM DREDGE BOAT CAPTAIN CLAM DREDGE BOAT CAPTAIN pm1 Anne Almendarez, RN RN vg1 Christine Forrester RN RN ll1 Burke Malik, RN RN as6 Ayesha Disla, RN RN kd3 Corrections: (The following items were deleted from the chart) 01/24 23:11 15:12 Carotid Artery Bilateral+[id number] ordered. EDKY EDKY 23:31 22:27 pm1 lp1
[2022-01-24] MEDS ORDERED: ENOXAPARIN 100 MG/ML SYR SQ ONE (22:34)
[2022-01-24] MEDS ORDERED: LABETALOL 20 MG/4ML SYRINGE IV ONE ×2 (22:47→23:24)
--- NOTE | 2022-01-24 23:25 | P.HP ---
Certification for Inpatient Patient admitted to: Inpatient With expected LOS: >2 Midnights Patient will require the following post-hospital care: Rehabilitation Practitioner: I am a practitioner with admitting privileges, knowledge of patient current condition, hospital course, and medical plan of care. Services: Services provided to patient in accordance with Admission requirements found in Title 42 Section 412.3 of the Code of Federal Regulations Patient History Date of Service: 01/25/22 Reason for admission: CVA History of Present Illness: Patient is a 61-year-old male with hypertension, history of CVA x3 resulting in weakness and dysphagia, bipolar disorder, who presented to the ED with initial complaint of a fall injury. Patient's reports that he was walking and fell back with resulting contusion to the right shoulder that has since resolved since arrival to the ER. No head injury, headache or neck pain. Patient's also reports that he has not been talking her for over 48 hours. He is typically is able to talk with her in complete sentences, but for greater than 48 hours, he has only been able to say 1 word at a time. Patient's thought that he was just upset and not talking to her because she had told him that she wanted a divorce. His initial stroke scale was 8. Head CT showed new moderate size left MCA territory infarct that may be acute or subacute. CTA showed segmental high-grade stenosis involving the distal left M1 segment of the middle cerebral artery corresponding with the area of suspected infarct. Calcified plaque at the ICAs, otherwise no clinically significant findings identified. Other labs significant for sodium of 131 and BNP of 879. Patient was prescribed atorvastatin, aspirin, Plavix, and folic acid however patient's states that he is not very compliant with his medications. Patient failed his swallow study and was unable to take the aspirin and Plavix here. Dr. Romero was called and wishes for patient to be on therapeutic dose of Lovenox and plan for MRI in the morning. Will admit patient for further evaluation and treatment. Allergies No Known Allergies Allergy (Verified 01/03/22 20:03) Home Medications: Cyclobenzaprine [Flexeril*] 1 tab PO DAILY 10/24/[address] [place] Carbonate [[place] Carbonate ER] 1 tab PO BID 10/24/19 Memantine HCl 1 tab PO BID 10/24/19 Mirtazapine 30 mg PO BEDTIME 10/24/19 Temazepam [Restoril*] 15 mg PO BEDTIME PRN 10/24/19 Venlafaxine HCl [Effexor Xr] 1 cap PO DAILY 10/24/19 Codeine/APAP [Tylenol #3*] 1 tab PO Q6HP PRN #30 tab 10/30/19 Atorvastatin Calcium [Lipitor] 40 mg PO BEDTIME 30 Days #30 tab 08/12/21 Folic Acid 1 mg PO DAILY 30 Days #30 tablet 08/12/21 Aspirin [Aspirin EC 81 MG] 81 mg PO DAILY #30 tablet. 08/18/21 Clopidogrel Bisulfate [Plavix*] 75 mg PO DAILY #30 tablet 08/18/21 Gabapentin [Neurontin*] 400 mg PO BEDTIME #30 cap 08/18/21 Cefdinir [Omnicef] 300 mg PO BID #14 capsule 01/04/22 - Past Medical/Surgical History Diabetic: No -: Bipolar disorder -: Hypoglycemia -: ADHD -: Osteoarthritis of the knee -: Nephrolithiasis -: Right renal cyst -: CVA 3 times -: Former tobacco use -: Hepatitis-C -: Depression -: Irregular HR -: Rt knee replacement 08/09/16 -: Lt knee replacement Psychosocial/ Personal History: He is , has 2 children, he does not work. - Family History Mother -: Other (see notes) Notes: Hypoglycemia - Social History Smoking Status: Former smoker Alcohol use: No CD- Drugs: No Caffeine use: Yes Place of Residence: Home Review of Systems is unable to be obtained Physical Examination - Physical Exam General: In no apparent distress, Disheveled HEENT: Atraumatic, PERRLA, Sclerae nonicteric Neck: Supple, 2+ carotid pulse no bruit, No LAD, Without JVD or thyroid abnormality Respiratory: Clear to auscultation bilaterally, Normal air movement Cardiovascular: No edema, Regular rate/rhythm, Normal S1 S2 Gastrointestinal: Normal bowel sounds, No tenderness Musculoskeletal: No tenderness Integumentary: No rashes Neurological: Abnormal speech, Abnormal affect Lymphatics: No axilla or inguinal lymphadenopathy - Studies Laboratory Data (last 24 hrs) 01/24/22 14:39: PT 11.5, INR 1.04 01/24/22 14:39: WBC 12.1 H, Hgb 13.4 L, Hct 39.7, Plt Count 262 01/24/22 14:39: Sodium 131 L, Potassium 3.9, BUN 9, Creatinine 1.11, Glucose 118 H, Total Bilirubin 0.4, AST 17, ALT 24, Alkaline Phosphatase 89 Assessment and Plan - Problems (Diagnosis) (1) Acute CVA (cerebrovascular accident) Current Visit: Yes Status: Acute (2) Hypertension Current Visit: Yes Status: Chronic Qualifiers: Hypertension type: primary hypertension Qualified Code(s): I10 - Essential (primary) hypertension (3) Bipolar disorder Onset Date: 05/17/17 Current Visit: No Status: Chronic Qualifiers: Active/Remission status: remission status unspecified Qualified Code(s): F31.9 - Bipolar disorder, unspecified (4) CKD (chronic kidney disease) stage 2, GFR 60-89 ml/min Current Visit: Yes Status: Chronic - Plan -keep patient n.p.o. since he failed a swallow study, continue therapeutic dose Lovenox, IV folic acid, IV fluids, and antihypertensives as he has been hypertensive ranging from 180s to 200 systolic -Patient has had expressive aphasia for greater than [address] verified acute/subacute stroke. MRI ordered for the morning. Dr. Romero has been notified of the situation. -Patient will need some sort of rehab for long-term care facility upon discharge. building services engineer consult placed. -Patient has also had some agitation and required Geodon and Ativan. Ordered as needed. -Continue home medications as appropriate Discharge Plan: Other Plan to discharge in: Greater than 2 days - Advance Directives Does patient have a Living Will: No Does patient have a Durable POA for Healthcare: No - Code Status/Comfort Care Code Status Assessed: Yes (Full) Critical Care: No Time Spent Managing Pts Care (In Minutes): 70
[2022-01-24 23:55] LABS: Urine Blood Trace-intact (Negative); Urine Glucose Negative (Negative); Urine Protein Negative (Negative); Urine pH 7.5 (5.0-7.0)
[2022-01-25 00:04] LABS: Barbiturates NEGATIVE (NEGATIVE); Benzodiazepines NEGATIVE (NEGATIVE); Cocaine NEGATIVE (NEGATIVE); METHAMPHETAM NEGATIVE (NEGATIVE); Methadone NEGATIVE (NEGATIVE); Opiates NEGATIVE (NEGATIVE); Phencyclidine NEGATIVE (NEGATIVE); THC Cannibis NEGATIVE (NEGATIVE)
[2022-01-25] MEDS: NA CHLORIDE 0.9% 1,000 ML IV SCH ×3 (00:42→21:17)
[2022-01-25] MEDS ORDERED: HYDRALAZINE HCL 20 MG/ML VIAL IV PRN (00:42)
[2022-01-25] MEDS ORDERED: ONDANSETRON 4 MG/2 ML VIAL IV PRN (00:42)
[2022-01-25 01:35] VITALS: BMI 24.4
[2022-01-25 05:39] LABS: Absolute Lymphocytes (CBC) 1.1 K/uL (0.7-4.9); Hematocrit 39.5 % (39.6-49.0); Lymphocytes % 8.6 % (15.3-44.8); MPV 8.7 fL (7.6-11.3); RBC Red Blood Cell Count 4.57 M/uL (4.33-5.43)
[2022-01-25] MEDS: LORazepam 2 MG/ML VIAL IV PRN (05:39)
[2022-01-25 05:54] LABS: Albumin 3.6 g/dL (3.4-5.0); Bilirubin Total 0.5 mg/dL (0.2-1.0); Magnesium 1.8 mg/dL (1.8-2.4); Phosphorus 2.4 mg/dL (2.5-4.9); Potassium 3.4 mmol/L (3.5-5.1); Protein, Total 7.3 g/dL (6.4-8.2)
--- NOTE | 2022-01-25 07:37 | P.PN ---
Subjective Date of Service: 01/25/22 Chief Complaint: CVA Subjective: No new changes Physical Examination - Vital Signs Temperature: 97.7 F Blood Pressure: 195/110 Pulse: 85 Respirations: 19 Pulse Ox (%): 96 - Physical Exam General: Demented HEENT: Atraumatic, Normocephalic Neck: Supple Respiratory: Normal air movement Cardiovascular: Regular rate/rhythm, Normal S1 S2 Gastrointestinal: Soft and benign Neurological: Dementia - Studies Laboratory Data (last 24 hrs) 01/24/22 14:39: PT 11.5, INR 1.04 01/24/22 14:39: WBC 12.1 H, Hgb 13.4 L, Hct 39.7, Plt Count 262 01/24/22 14:39: Sodium 131 L, Potassium 3.9, BUN 9, Creatinine 1.11, Glucose 118 H, Total Bilirubin 0.4, AST 17, ALT 24, Alkaline Phosphatase 89 Assessment And Plan - Plan CVA- New infarct noted in MCA territory. we will continue aspirin and lovenox therapy. we will obtain echocardiogram for eval of cva. Hypertension-We will allow permissive hypertension for management pending neurology evaluation. Hyperlipidemia: we will continue statin therapy. CKD 2-Stable kidney function. we will follow closely.
[2022-01-25] MEDS: ENOXAPARIN 80 MG/0.8 ML SQ SCH ×2 (08:02→20:11)
--- NOTE | 2022-01-25 09:38 | EKG ---
Test Date: 2022-01-24 Test Time: 14:33:09 Link Trainer Teacher: JARED MEASUREMENT RESULTS: Intervals: Rate: 95 CO: 116 QRSD: 82 QT: 364 QTc: 457 [place]: P: 90 CO: 116 QRS: 86 T: 84 INTERPRETIVE STATEMENTS: Normal sinus rhythm ST abnormality, possible digitalis effect Abnormal ECG Compared to ECG 01/03/2022 07:29:40 ST (T wave) deviation now present Sinus bradycardia no longer present Sinus arrhythmia no longer present Electronically Signed On 01-25-22 09:35:38 CDT by Hoang Burns
[2022-01-25] MEDS: FOLIC ACID 1 MG in NA CHLORIDE 0.9% 50 ML IV SCH (10:53)
--- NOTE | 2022-01-25 12:30 | ECHO ---
HEIGHT: 5 ft 11 in WEIGHT: 175 lb 3.2 oz DATE OF STUDY: 01/25/[address]: Geronimo Aldridge MD 2-DIMENSIONAL: YES M.MODE: YES DOPPLER: YES COLOR FLOW: YES TDS: YES PORTABLE: YES DEFINITY: NO BUBBLE STUDY: NO DIAGNOSIS: STROKE WORKUP CARDIAC HISTORY: CATHERIZATION: NO SURGERY: NO PROSTHETIC VALVE: NO PACEMAKER: NO MEASUREMENTS (cm) DIASTOLIC (NORMALS) SYSTOLIC (NORMALS) IVSd (0.6-1.2) LA Diam (1.9-4.0) LVEF 55-60% LVIDd (3.5-5.7) LVIDs (2.0-3.5) %FS % LVPWd (0.6-1.2) Ao Diam (2.0-3.7) 2 DIMENSIONAL ASSESSMENT: RIGHT ATRIUM: LEFT ATRIUM: RIGHT VENTRICLE: LEFT VENTRICLE: TRICUSPID VALVE: MITRAL VALVE: PULMONIC VALVE: AORTIC VALVE: PERICARDIAL EFFUSION: AORTIC ROOT: LEFT VENTRICULAR WALL MOTION: DOPPLER/COLOR FLOW: COMMENTS: VERY POOR WINDOWS. LEFT VENTRICULAR EJECTION FRACTION IS NORMAL 55-60% TECHNOLOGIST: Ty ARMENDARIZ
--- NOTE | 2022-01-26 00:48 | CON ---
Consultation called because of stroke. History Of Present Illness: Mr. White is a 61-year-old right-handed patient with bipo lar disorder, hypertension, multiple strokes at least 3, which has left him with resulting dysphagia, bilateral weakness, who now comes in after his noted he could not answer her and was falling mo re and he would only speak with one word for at least 2 days prior to admission. The patient's apparently told him that she would get a divorce and she felt that his lack of ability to speak was r eally that, but eventually, she brought him to [facility] where he was found to have an elev ated NIH Stroke Scale of [address] scan in the emergency room identified a moderate-sized lef t MCA infarct. Repeat head CT scan showed the stroke was present and there was also with CT angiogra m, high-grade segmental stenosis in the distal left M1 segment of the middle cerebral artery which co rresponded to the area of infarct. There was no hemorrhagic conversion. His echocardiogram identifi ed ejection fraction 55% to 60% with poor windows. His electrocardiograms showed a normal sinus rhyt hm. As noted since hospitalization, the patient has not been verbal. He also appears to be asleep, but c an be aroused and may open the eyes and look around. He is not communicating. Past Medical History: As noted in addition to osteoarthritis of the knees, nephrolithiasis, right re nal cyst, hepatitis C, depression, cardiac arrhythmia. Past Surgical History: Right knee replacement and left knee replacement. Allergies: NO KNOWN DRUG ALLERGIES. Medications: At home: Flexeril daily, lithium twice daily, memantine twice daily, mirtazapine 30 mg at bedtime, Restoril 15 mg at bedtime, Effexor daily, Tylenol No. 3 every 6 hours as needed, Lipitor 40 mg at bedtime, folic acid 1 mg daily, aspirin 81 mg daily, Plavix 75 mg daily, Neurontin 400 mg a t bedtime, Omnicef 300 mg twice daily. Social History: The patient lives at home with his . He has 2 children. Is not employed. Plea se note that the patient is not a smoker or a drinker. Family History: Mother with hypoglycemia. Review of Systems: Cannot be obtained at this point. The patient is not verbally interacting. Physical Examination: Vital Signs: Blood pressure 154/86, pulse 75, respiratory rate 18, temperature 98.4, oxygen saturati on 98% on room air. Weight 175 pounds, height 5 feet 11 inches, BMI 24. General: Mr. White is resting in bed. He appears to be in no acute distress. Does appear norm ocephalic, atraumatic. Sclerae are anicteric. Oropharynx is moist. Neck: Supple. Chest: Clear. Heart: Regular. Extremities: Show no significant edema or cyanosis. Neurological: He is not spontaneously speaking or verbally responding to questions. Did slightly op en the eyes and look around. It was difficult to assess the strength, but there appears to be some m ore right-sided weakness than left in the upper and lower extremities. Otherwise, cannot really asse ss at this point as the patient is not up and interacting. With Physical Therapy, he did not track. The physical therapist came in and attempted to assess mobility, but he did not respond. Laboratory Studies: Complete blood count differential showed a slightly elevated white blood cell co unt of 13.2 with 83.3% neutrophils. INR 1.04. Sodium 135, potassium 3.4, creatinine 0.88, glucose r beny 118 to 141, calcium 9.2, phosphorus 2.4. Liver function studies are normal. LDL 52, HDL 43. U rine: Trace blood, 1+ ketones. Toxicology screen is negative. COVID-19 is negative. Assessment: Mr. White is a 61-year-old patient with psychiatric issues, multiple strokes, who h as a new M1 distribution stroke in the left middle cerebral artery with aphasia and right-sided weakn ess. He has had 3 prior strokes and significant weakness throughout. At this point, he is very apha sic, not responding to verbal stimulation, not tracking, and not spontaneously speaking. He, at this point, has significant deficits with a poor prognosis for very good recovery. However, it is still possible, he may regain more communication. At this point, given his young age of 61, therapy perhap s in a [facility] facility may be more appropriate as he is unable to follow any instructions to perform more aggressive physical therapy. Continue aspirin, Plavix, folic acid, and statin and cher ge hypertension. Continue Psychiatric medications. Again, he may be discharged to [facility] o nce an appropriate location is identified. RONNIE Voice ID: [id number] Report ID: [id number]
[2022-01-26] MEDS: LORazepam 2 MG/ML VIAL IV PRN ×4 (01:04→19:15)
[2022-01-26] MEDS: NA CHLORIDE 0.9% 1,000 ML IV SCH ×3 (05:45→20:59)
[2022-01-26 06:09] LABS: Absolute Lymphocytes (CBC) 1.8 K/uL (0.7-4.9); Hematocrit 36.8 % (39.6-49.0); Lymphocytes % 18.4 % (15.3-44.8); MPV 8.9 fL (7.6-11.3); RBC Red Blood Cell Count 4.23 M/uL (4.33-5.43)
[2022-01-26 06:22] LABS: ALT/SGPT 21 U/L (12-78); AST/SGOT 14 U/L (15-37); Albumin 3.3 g/dL (3.4-5.0); Alkaline Phosphatase 73 U/L (45-117); BUN Blood Urea Nitrogen 12 mg/dL (7-18); Bicarbonate 21 mmol/L (21-32); Bilirubin Total 0.5 mg/dL (0.2-1.0); Glucose Level 97 mg/dL (74-106); Potassium 3.3 mmol/L (3.5-5.1); Protein, Total 6.6 g/dL (6.4-8.2); Sodium Level 139 mmol/L (136-145)
[2022-01-26] MEDS: FOLIC ACID 1 MG in NA CHLORIDE 0.9% 50 ML IV SCH (09:01)
[2022-01-26] MEDS: ENOXAPARIN 80 MG/0.8 ML SQ SCH ×2 (09:02→20:29)
--- NOTE | 2022-01-26 13:46 | P.PN ---
Subjective Date of Service: 01/26/22 Chief Complaint: CVA Subjective: No new changes, Improving Physical Examination - Vital Signs Temperature: 97.4 F Blood Pressure: 165/79 Pulse: 58 Respirations: 16 Pulse Ox (%): 97 - Physical Exam General: Alert HEENT: Atraumatic, Normocephalic Neck: Supple Respiratory: Normal air movement Cardiovascular: Regular rate/rhythm, Normal S1 S2 Gastrointestinal: Soft and benign Musculoskeletal: No swelling Neurological: Dementia Assessment And Plan - Plan CVA- No new developments. New infarct noted in MCA territory. we will continue aspirin and lovenox therapy. we will obtain echocardiogram for eval of cva. Neurology following. PT/OT/ST ordered. Hypertension- We will start antihypertensive medications for blood pressure management. Hyperlipidemia: we will continue statin therapy. CKD 2- Stable kidney function. we will follow closely.
--- NOTE | 2022-01-26 18:16 | EKG ---
Test Date: 2022-01-26 Test Time: 07:20:34 [employer] Operator: TONI MEASUREMENT RESULTS: Intervals: Rate: 60 MI: 130 QRSD: 88 QT: 456 QTc: 456 [place]: P: 70 MI: 130 QRS: 76 T: 65 INTERPRETIVE STATEMENTS: Normal sinus rhythm with sinus arrhythmia Normal ECG Compared to ECG 01/24/2022 14:33:09 ST (T wave) deviation no longer present Electronically Signed On 01-26-22 18:15:20 CDT by Hoang Burns
[2022-01-26] MEDS: LITHIUM CARBONATE 300 MG PO SCH (20:31)
[2022-01-26] MEDS: MEMANTINE HCL 10 MG TABLET PO SCH (20:31)
[2022-01-26] MEDS: ATORVASTATIN 40 MG TAB PO SCH (20:31)
[2022-01-27 05:55] LABS: Absolute Lymphocytes (CBC) 1.5 K/uL (0.7-4.9); Hematocrit 38.6 % (39.6-49.0); Lymphocytes % 16.5 % (15.3-44.8); MPV 8.7 fL (7.6-11.3); RBC Red Blood Cell Count 4.41 M/uL (4.33-5.43)
[2022-01-27 06:35] LABS: ALT/SGPT 24 U/L (12-78); Albumin 3.2 g/dL (3.4-5.0); Alkaline Phosphatase 75 U/L (45-117); BUN Blood Urea Nitrogen 12 mg/dL (7-18); Bicarbonate 19 mmol/L (21-32); Bilirubin Total 0.4 mg/dL (0.2-1.0); Glucose Level 81 mg/dL (74-106); Protein, Total 6.4 g/dL (6.4-8.2); Sodium Level 139 mmol/L (136-145)
[2022-01-27 06:36] LABS: AST/SGOT 20 U/L (15-37); Potassium 3.5 mmol/L (3.5-5.1)
[2022-01-27] MEDS: NA CHLORIDE 0.9% 1,000 ML IV SCH ×2 (06:38→15:34)
[2022-01-27] MEDS: LORazepam 2 MG/ML VIAL IV PRN ×3 (07:47→22:53)
[2022-01-27] MEDS: ENOXAPARIN 80 MG/0.8 ML SQ SCH ×2 (07:47→22:53)
[2022-01-27] MEDS: LITHIUM CARBONATE 300 MG PO SCH ×2 (08:59→21:00)
[2022-01-27] MEDS: VENLAFAXINE HCL XR 75 MG CAP PO SCH (08:59)
[2022-01-27] MEDS: CLOPIDOGREL 75 MG TABLET PO SCH (08:59)
[2022-01-27] MEDS: MEMANTINE HCL 10 MG TABLET PO SCH ×2 (08:59→22:53)
[2022-01-27] MEDS: FOLIC ACID 1 MG in NA CHLORIDE 0.9% 50 ML IV SCH (09:32)
--- NOTE | 2022-01-27 12:28 | P.PN ---
Subjective Date of Service: 01/27/22 Chief Complaint: CVA Subjective: No new changes, Improving Physical Examination - Vital Signs Temperature: 97.8 F Blood Pressure: 171/93 Pulse: 66 Respirations: 18 Pulse Ox (%): 96 - Physical Exam General: Alert HEENT: Atraumatic, Normocephalic Neck: Supple Respiratory: Normal air movement Cardiovascular: Regular rate/rhythm, Normal S1 S2 Gastrointestinal: Soft and benign Assessment And Plan - Plan CVA- No new developments. New infarct noted in MCA territory. we will continue aspirin and lovenox therapy. Neurology following. PT/OT/ST ordered. Hypertension- We will continue antihypertensive medications for blood pressure management. Hyperlipidemia: we will continue statin therapy. CKD 2- Stable kidney function. we will follow closely. Dementia: We will continue memantine for management Prophylaxis: Lovenox for DVT prophylaxis/stroke management
[2022-01-27] MEDS: ATORVASTATIN 40 MG TAB PO SCH (22:53)
[2022-01-27] MEDS: MIRTAZAPINE 15 MG TAB PO SCH (22:54)
[2022-01-27] MEDS: ENSURE ENLIVE 237 ML CAN PO SCH (22:55)
[2022-01-28] MEDS ORDERED: HALOPERIDOL LACT 5 MG/ML INJ IV ONE (01:04)
[2022-01-28] MEDS: NA CHLORIDE 0.9% 1,000 ML IV SCH ×2 (01:09→11:10)
[2022-01-28] MEDS ORDERED: HALOPERIDOL LACT 5 MG/ML INJ ONE (01:10)
[2022-01-28] MEDS: ENSURE ENLIVE 237 ML CAN PO SCH ×2 (09:00→20:29)
[2022-01-28] MEDS: LITHIUM CARBONATE 300 MG PO SCH ×2 (09:00→20:28)
[2022-01-28] MEDS: FOLIC ACID 1 MG in NA CHLORIDE 0.9% 50 ML IV SCH (09:40)
[2022-01-28] MEDS: VENLAFAXINE HCL XR 75 MG CAP PO SCH (09:43)
[2022-01-28] MEDS: CLOPIDOGREL 75 MG TABLET PO SCH (09:43)
[2022-01-28] MEDS: MEMANTINE HCL 10 MG TABLET PO SCH ×2 (09:43→20:28)
[2022-01-28] MEDS: ENOXAPARIN 80 MG/0.8 ML SQ SCH ×2 (09:43→20:27)
[2022-01-28] MEDS: LORazepam 2 MG/ML VIAL IV PRN (14:51)
[2022-01-28] MEDS: ATORVASTATIN 40 MG TAB PO SCH (20:28)
[2022-01-28] MEDS: MIRTAZAPINE 15 MG TAB PO SCH (20:28)
[2022-01-29] MEDS: NA CHLORIDE 0.9% 1,000 ML IV SCH ×3 (02:05→23:44)
--- NOTE | 2022-01-29 07:23 | P.PN ---
Subjective Date of Service: 01/29/22 Chief Complaint: CVA Subjective: No new changes, Improving Physical Examination - Vital Signs Temperature: 97.5 F Blood Pressure: 128/73 Pulse: 63 Respirations: 17 Pulse Ox (%): 96 - Physical Exam General: Alert, Oriented x3 HEENT: Atraumatic, Normocephalic Neck: Supple Respiratory: Normal air movement Cardiovascular: Regular rate/rhythm, Normal S1 S2 Gastrointestinal: Soft and benign Musculoskeletal: No swelling Neurological: Normal speech Assessment And Plan - Plan CVA- No new developments. New infarct noted in MCA territory. we will continue aspirin and lovenox therapy. Neurology following. PT/OT/ST recommendations noted. we will follow closely. Hypertension- We will continue antihypertensive medications for blood pressure management. Hyperlipidemia: we will continue statin therapy. CKD 2- Stable kidney function. we will follow closely. Dementia: We will continue memantine for management Prophylaxis: Lovenox for DVT prophylaxis/stroke management
--- NOTE | 2022-01-29 07:23 | P.PN ---
Subjective Date of Service: 01/29/22 Chief Complaint: CVA Subjective: No new changes Physical Examination - Vital Signs Temperature: 97.5 F Blood Pressure: 128/73 Pulse: 63 Respirations: 17 Pulse Ox (%): 96 - Physical Exam General: Alert, In no apparent distress HEENT: Atraumatic, Normocephalic Neck: Supple Respiratory: Normal air movement Cardiovascular: Regular rate/rhythm, Normal S1 S2 Gastrointestinal: Soft and benign Musculoskeletal: No swelling Assessment And Plan - Plan CVA- No new developments. New infarct noted in MCA territory. we will continue aspirin and lovenox therapy. Neurology following. PT/OT/ST recommendations noted. awaiting SNF placement. Hypertension- We will continue antihypertensive medications for blood pressure management. Hyperlipidemia: we will continue statin therapy. CKD 2- Stable kidney function. we will follow closely. Dementia: We will continue memantine for management Prophylaxis: Lovenox for DVT prophylaxis/stroke management
[2022-01-29] MEDS: ENSURE ENLIVE 237 ML CAN PO SCH ×2 (09:00→23:46)
[2022-01-29] MEDS: LITHIUM CARBONATE 300 MG PO SCH ×2 (09:00→21:00)
[2022-01-29] MEDS: CLOPIDOGREL 75 MG TABLET PO SCH (10:00)
[2022-01-29] MEDS: ENOXAPARIN 80 MG/0.8 ML SQ SCH (10:00)
[2022-01-29] MEDS: MEMANTINE HCL 10 MG TABLET PO SCH ×2 (10:00→23:45)
[2022-01-29] MEDS: VENLAFAXINE HCL XR 75 MG CAP PO SCH (10:00)
[2022-01-29] MEDS: FOLIC ACID 1 MG in NA CHLORIDE 0.9% 50 ML IV SCH (12:12)
[2022-01-29] MEDS: MIRTAZAPINE 15 MG TAB PO SCH (23:44)
[2022-01-29] MEDS: ATORVASTATIN 40 MG TAB PO SCH (23:45)
[2022-01-30] MEDS: ENOXAPARIN 80 MG/0.8 ML SQ SCH ×3 (00:27→20:22)
[2022-01-30] MEDS: NA CHLORIDE 0.9% 1,000 ML IV SCH ×3 (00:42→20:31)
--- NOTE | 2022-01-30 07:38 | P.PN ---
Subjective Date of Service: 01/30/22 Chief Complaint: CVA Subjective: No new changes Physical Examination - Vital Signs Temperature: 97.6 F Blood Pressure: 141/84 Pulse: 59 Respirations: 17 Pulse Ox (%): 96 - Physical Exam General: Alert HEENT: Atraumatic, Normocephalic Neck: Supple Respiratory: Normal air movement Cardiovascular: Regular rate/rhythm, Normal S1 S2 Gastrointestinal: Soft and benign Assessment And Plan - Plan CVA- Has been on rehabilitation. we will continue aspirin and lovenox therapy. Neurology following. PT/OT/ST recommendations noted. we will follow closely. Hypertension- We will continue antihypertensive medications for blood pressure management. Hyperlipidemia: we will continue statin therapy. CKD 2- Stable kidney function. we will follow closely. Dementia: We will continue memantine for management Prophylaxis: Lovenox for DVT prophylaxis/stroke management
[2022-01-30] MEDS: LITHIUM CARBONATE 300 MG PO SCH ×2 (09:00→20:22)
[2022-01-30] MEDS: MEMANTINE HCL 10 MG TABLET PO SCH ×2 (09:13→20:22)
[2022-01-30] MEDS: VENLAFAXINE HCL XR 75 MG CAP PO SCH (09:13)
[2022-01-30] MEDS: FOLIC ACID 1 MG in NA CHLORIDE 0.9% 50 ML IV SCH (09:13)
[2022-01-30] MEDS: CLOPIDOGREL 75 MG TABLET PO SCH (09:13)
[2022-01-30] MEDS: ENSURE ENLIVE 237 ML CAN PO SCH ×2 (09:14→20:23)
[2022-01-30] MEDS: MIRTAZAPINE 15 MG TAB PO SCH (20:21)
[2022-01-30] MEDS: ATORVASTATIN 40 MG TAB PO SCH (20:22)
--- NOTE | 2022-01-31 07:46 | P.PN ---
Subjective Date of Service: 01/31/22 Chief Complaint: CVA Subjective: No new changes, Improving Physical Examination - Vital Signs Temperature: 97.4 F Blood Pressure: 136/76 Pulse: 57 Respirations: 16 Pulse Ox (%): 97 - Physical Exam General: Alert HEENT: Atraumatic, Normocephalic Respiratory: Normal air movement Gastrointestinal: Soft and benign Neurological: Normal speech Assessment And Plan - Plan CVA- Has been on rehabilitation. we will continue aspirin and lovenox therapy. Neurology following. PT/OT/ST recommendations noted. we will follow closely. Hypertension- We will continue antihypertensive medications for blood pressure management. Hyperlipidemia: we will continue statin therapy. CKD 2- Stable kidney function. we will follow closely. Dementia: We will continue memantine for management Prophylaxis: Lovenox for DVT prophylaxis/stroke management
[2022-01-31] MEDS: LITHIUM CARBONATE 300 MG PO SCH ×2 (08:08→20:59)
[2022-01-31] MEDS: MEMANTINE HCL 10 MG TABLET PO SCH ×2 (08:08→20:58)
[2022-01-31] MEDS: CLOPIDOGREL 75 MG TABLET PO SCH (08:08)
[2022-01-31] MEDS: ENOXAPARIN 80 MG/0.8 ML SQ SCH ×2 (08:08→20:56)
[2022-01-31] MEDS: ENSURE ENLIVE 237 ML CAN PO SCH ×2 (08:09→20:59)
[2022-01-31] MEDS: VENLAFAXINE HCL XR 75 MG CAP PO SCH (08:09)
[2022-01-31] MEDS: NA CHLORIDE 0.9% 1,000 ML IV SCH ×2 (08:09→16:42)
[2022-01-31] MEDS: FOLIC ACID 1 MG in NA CHLORIDE 0.9% 50 ML IV SCH (09:14)
[2022-01-31] MEDS: ATORVASTATIN 40 MG TAB PO SCH (20:58)
[2022-01-31] MEDS: MIRTAZAPINE 15 MG TAB PO SCH (20:58)
[2022-01-31] MEDS ORDERED: ENOXAPARIN 80 MG/0.8 ML SQ SCH (21:00)
[2022-02-01] MEDS: NA CHLORIDE 0.9% 1,000 ML IV SCH (02:42)
[2022-02-01] MEDS: FOLIC ACID 1 MG in NA CHLORIDE 0.9% 50 ML IV SCH (09:00)
[2022-02-01] MEDS: ENSURE ENLIVE 237 ML CAN PO SCH ×2 (09:00→20:51)
[2022-02-01] MEDS: LITHIUM CARBONATE 300 MG PO SCH ×2 (09:00→20:51)
[2022-02-01] MEDS: VENLAFAXINE HCL XR 75 MG CAP PO SCH (09:25)
[2022-02-01] MEDS: MEMANTINE HCL 10 MG TABLET PO SCH ×2 (09:25→20:50)
[2022-02-01] MEDS: ENOXAPARIN 80 MG/0.8 ML SQ SCH ×2 (09:26→20:51)
[2022-02-01] MEDS: CLOPIDOGREL 75 MG TABLET PO SCH (09:26)
[2022-02-01] MEDS: MIRTAZAPINE 15 MG TAB PO SCH (20:51)
[2022-02-01] MEDS: ATORVASTATIN 40 MG TAB PO SCH (20:51)
[2022-02-02] MEDS: CLOPIDOGREL 75 MG TABLET PO SCH (08:20)
[2022-02-02] MEDS: LITHIUM CARBONATE 300 MG PO SCH ×2 (08:21→20:49)
[2022-02-02] MEDS: ENSURE ENLIVE 237 ML CAN PO SCH ×2 (08:21→20:44)
[2022-02-02] MEDS: ENOXAPARIN 80 MG/0.8 ML SQ SCH ×2 (08:21→20:44)
[2022-02-02] MEDS: MEMANTINE HCL 10 MG TABLET PO SCH ×2 (08:21→20:43)
[2022-02-02] MEDS: VENLAFAXINE HCL XR 75 MG CAP PO SCH (08:21)
[2022-02-02] MEDS: FOLIC ACID 1 MG TABLET PO SCH (08:21)
[2022-02-02] MEDS: MIRTAZAPINE 15 MG TAB PO SCH (20:44)
[2022-02-02] MEDS: ATORVASTATIN 40 MG TAB PO SCH (20:44)
[2022-02-03] MEDS: ENSURE ENLIVE 237 ML CAN PO SCH ×2 (09:00→21:22)
[2022-02-03] MEDS: LITHIUM CARBONATE 300 MG PO SCH (09:00)
[2022-02-03] MEDS: MEMANTINE HCL 10 MG TABLET PO SCH ×2 (09:10→21:22)
[2022-02-03] MEDS: ENOXAPARIN 80 MG/0.8 ML SQ SCH ×2 (09:10→21:22)
[2022-02-03] MEDS: FOLIC ACID 1 MG TABLET PO SCH (09:10)
[2022-02-03] MEDS: VENLAFAXINE HCL XR 75 MG CAP PO SCH (09:10)
[2022-02-03] MEDS: CLOPIDOGREL 75 MG TABLET PO SCH (09:15)
[2022-02-03] MEDS: MIRTAZAPINE 15 MG TAB PO SCH (21:22)
[2022-02-03] MEDS: ATORVASTATIN 40 MG TAB PO SCH (21:22)
[2022-02-04 04:42] VITALS: O2SAT 91
[2022-02-04] MEDS: ENOXAPARIN 80 MG/0.8 ML SQ SCH (09:22)
[2022-02-04] MEDS: FOLIC ACID 1 MG TABLET PO SCH (09:23)
[2022-02-04] MEDS: ENSURE ENLIVE 237 ML CAN PO SCH (09:23)
[2022-02-04] MEDS: VENLAFAXINE HCL XR 75 MG CAP PO SCH (09:23)
[2022-02-04] MEDS: MEMANTINE HCL 10 MG TABLET PO SCH (09:23)
[2022-02-04] MEDS: CLOPIDOGREL 75 MG TABLET PO SCH (09:23)
[2022-02-04 14:12] VITALS: BP 138/84; TEMP 98.1
== END 2022-02-04 14:12 | disposition left against medical advice (07) | DRG 65 ==
LOC: ER 12:39 → ERHOLD 23:17 → 2ND 01-25 00:22
PROVIDERS: ADMIT Hospitalist; ATTEND Internal Medicine Nephrology
DX: I63.512 Cerebral infarction due to unspecified occlusion or stenosis of left middle cerebral artery (principal); G81.91 Hemiplegia, unspecified affecting right dominant side; I69.359 Hemiplegia and hemiparesis following cerebral infarction affecting unspecified side; R47.01 Aphasia; R29.708 NIHSS score 8; I12.9 Hypertensive chronic kidney disease with stage 1 through stage 4 chronic kidney disease, or unspecified chronic kidney disease; N18.2 Chronic kidney disease, stage 2 (mild); E78.5 Hyperlipidemia, unspecified; F03.90 Unspecified dementia, unspecified severity, without behavioral disturbance, psychotic disturbance, mood disturbance, and anxiety; F31.9 Bipolar disorder, unspecified; B19.20 Unspecified viral hepatitis C without hepatic coma; S40.011A Contusion of right shoulder, initial encounter; W19.XXXA Unspecified fall, initial encounter; Y92.009 Unspecified place in unspecified non-institutional (private) residence as the place of occurrence of the external cause; Z53.29 Procedure and treatment not carried out because of patient's decision for other reasons; Z96.653 Presence of artificial knee joint, bilateral; Z87.891 Personal history of nicotine dependence; Z20.822 Contact with and (suspected) exposure to COVID-19
CPT/HCPCS: 36415; 70450; 70496; 71045; 80048; 80053; 80061; 80076; 80178; 80307; 81003; 82947; 83735; 83880; 84100; 84439; 84484; 85025; 85610; 92610; 93005; 93306; 96372; 97110; 97112; 97116; 97161; 97530; 99285; J0360; J1200; J1630; J1650; J3486; J7030; J7040; Q9967; U0003

== ENCOUNTER 2022-03-01 23:27 | Emergency (ER) | payer OTHER ==
--- OUTSIDE RECORDS SUMMARY | 2022-03-01 23:44 | XMS REPORT | Continuity of Care Document ---
:1960 Author Organization [facility] t Address [address] [place] [address] Care Team Providers Name Role Phone LAURA Primary Care Physician Unavailable EVERETT Attending Clinician Unavailable [id number] Attending Clinician Unavailable Saray Gomes Attending Clinician Unavailable Steffi Gilbert Attending Clinician Unavailable LAURA Attending Clinician Unavailable Fito ARMENDARIZ Attending Clinician Unavailable Fito Armendariz DO Attending Clinician Doctor Unassigned, Name Attending Clinician Unavailable Attending Clinician Unavailable Laura CALDWELL Attending Clinician Gustavo Attending Clinician [phone] El[place] Attending Clinician Unavailable A_Byrd Attending Clinician Unavailable Lucio Attending Clinician Unavailable Soren Attending Clinician Unavailable [id number] Admitting Clinician Unavailable Physician, Primary or Family Admitting Clinician UnavailSteffi Guo Admitting Clinician Unavailable Fito ARMENDARIZ Admitting Clinician Unavailable [email or web address] Admitting Clinician Unavailable Elba Admitting Clinician Unavailable Caryn_Gustabo Admitting Clinician Unavailable Payers Payer Name Policy Type Policy Number Effective Date Expiration Date S jorge [facility] [id number] 2021 2022 STARPLUS OON EXCEPT 00:00:00 00:00:00 [facility] [place]ICA[place] [id number] 2021 00:00:00 [facility] DUAL [id number] 2021 COMP HMO D SNP 00:00:00 [facility] STAR PLUS [id number] 2021 00:00:00 [employer] - [id number] [address] [facility] 00:00:00 (MEDICARE REPLACEMENT/ADVANTA GE - HMO) [facility] - [id number] 2021 MEDICARE SOLUTIONS 00:00:00 - MEDICARE COMPLETE (MEDICARE REPLACEMENT HMO) [place]IC[place] B-[place]: [id number] [employer] [facility] [id number] 2020 COMMUNITY PLAN - 00:00:00 [place] STAR PLUS (MEDICAID HMO) Problems Condition Condition Condition Status Onset Resolution Last Treating Co mments Source Name Details Category Date Date Treatment Clinician Date ADHD ADHD Disease Active Univers (attention (attention 4-06 it y of deficit deficit 00:00: [place] hyperactiv hyperactiv 00 Me dical ity ity [...] Medical Branch Orthostati Orthostati Disease Active U herrera c c 3-23 ity of hypotensio [place] [facility] Disease Active Unive rs discharge discharge 3-23 ity of follow[place] Hypotensio Hypotensio Disease Active U nivers n n 3-23 ity of 00:00: [place] 00 Medical Branch Dyslipidem Dyslipidem Disease Active U nivers ia ia 2-23 ity of 00:00: [place] [facility] Speech and Speech and Disease Active U nivers language language 2-23 ity of deficit [place] 00 Medical effect of effect of Bran ch stroke stroke Medicare Medicare Disease Active Unive rs annual annual 2-08 ity of wellness wellness 00:00: [place] visit, visit, 00 Medical initial initial Branch 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 2-04 it y of 00:00: [place] 00 Medical Branch Essential Essential Disease Active Uni vers hypertensi hypertensi 2-04 it y of on on 00:00: [place] 00 Medical Branch Nicotine Nicotine Disease Active Unive rs dependence dependence 2-04 it y of with with 00:00: [place] current current 00 Medical use use Branch [...] Branch Chest pain Chest pain Disease Active 2019- U nivers 9-23 ity of 00:00: [place] 00 Medical Branch Acute Acute Disease Active 2019- Univers right right 9-23 ity of arterial arterial 00:00: [place] ischemic ischemic 00 Medica l stroke, stroke, Branch middle middle cerebral cerebral artery artery (MCA) (MCA) Tobacco Tobacco Disease Active Univers abuse abuse 4-16 ity of 00:00: [place] 00 Medical Branch Status Status Disease Active [...] Formattin ity of 00:00: g of this [place] 00 note Medical might be Branch different from the original. 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 [facility] Seasonal Seasonal Diagnosis Active Com mon allergic allergic Spirit rhinitis, rhinitis, - CH I unspecifie unspecifie St d trigger d [facility] Folliculit Folliculit Problem Active Graham mark is is [facility] Arthritis Arthritis Problem Active Com mon [facility] Bipolar 1 Bipolar 1 Problem Active Com mon disorder disorder [facility] Mixed Mixed Problem Active Common hyperlipid hyperlipid Sp kyle emia [facility] Pure Pure Problem Active Common hyperchole hyperchole Sp kyle sterolemia sterolemia - [facility] Primary Primary Problem Active 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 - [facility]I involving involving St multiple [facility] joints joints Medical Center Smoker Smoker Problem Active Common [facility] Essential Essential Problem Active Com mon hypertensi hypertensi Sp kyle on on [facility] Other Other Problem Active Common chronic chronic Spirit pain pain - CH[facility] Irritabili Irritabili Problem Active C ommon ty and ty and Spirit anger anger - [facility] Elevated Elevated Problem Active Commo n blood blood Spirit pressure pressure - [facility]I reading reading St without without [facility] diagnosis diagnosis Medi diogenes of of Center hypertensi hypertensi on on Encounter Encounter Problem Active Com mon for for Spirit tobacco tobacco - [facility]I use use St cessation cessation [facility] Mild Mild Problem Active Common memory memory Spirit disturbanc disturbanc - CHI e e [facility] Paresthesi Paresthesi Problem Active C ommon a of skin a of skin Spir it - CHI [facility] Otalgia of Otalgia of Problem Active C ommon left ear left ear Spirit - [facility] Dementia Dementia Problem Active Commo n in other in other Spirit diseases diseases - [facility]I classified classified St elsewhere elsewhere Lu s without without Medical behavioral behavioral Ce nter disturbanc disturbanc e e Impacted Impacted Problem Active Commo n cerumen of cerumen of Sp kyle left ear left ear - [facility] Alzheimer' Alzheimer' Problem Active C ommon 's 's Spirit disease, disease, - [facility]I unspecifie unspecifie d [facility] Allergies, Adverse Reactions, Alerts Allergy Allergy Status Severity Reaction(s) Onset Inactive Treating Comm ents Source Name Type Date Date Clinician No Known DA Active U 0 [facility]14 [place] 00:[facility]: Pat[place] 00 [facility] No Known DA Active U [facility] Allergie 1-14 [place] 00:[facility]: Pat[place] 00 [facility] No Known DA Active U 0 [facility]ie - [place] [facility] 00 are [facility] No Known DA Active U 0 [facility] Allergie -10 [place] [facility] 00:[facility]: [facility] 00 are [facility] NO KNOWN Drug Active Univers ALLERGIE Class ity of S [place] [facility] Social History Social Habit Start Date Stop Date Quantity Comments Source History of tobacco Cigar Smoker Univ ersity of use [place] [facility] History SDND University o f Alcohol Frequency [place] M ed[facility] History [facility] University o f Alcohol Std Drinks [place] [facility] History [facility] University o f Alcohol Binge [place] [facility] al Branch Sex Assigned [facility] l[facility] Medicine Alcohol intake 2022-02-19 2022-02-19 0 /d University of 00:00:00 00:00:00 [facility] Education 2021-03-21 2021-03-21 14 [facility] 00:00:00 00:00:00 [facility] Cigarettes smoked 2016-06-11 2016-06-11 Univers ity of current (pack per 00:00:00 00:00:00 ) - Reported Branch Cigarette 2016-06-11 2016-06-11 University of pack-years 00:00:00 00:00:00 [facility] Tobacco use and 2016-06-11 2016-06-11 Never used Universit y of exposure 00:00:00 00:00:00 [facility] Alcohol Comment 2016-06-11 2016-06-11 sober for 20 Univers ity of 00:00:00 00:00:00 years [facility] Smoking Status Start Date Stop Date Source Unknown if ever smoked [facility] Current some day smoker 2016-06-11 00:00:00 [facility] of [facility] Medications Ordered Filled Start Stop Current Ordering Indication Dosage Frequency Signature Comments Components Source Medication Medication Date Date Medication? Clinician (SIG) Name Name HYDROcodone 2021- No 1{tbl} 1 tablet, Univers -acetaminop 5-06 05-06 Oral, ity of hen (NORCO 17:15: 16:09 ONCE, 1 Joseph as 5) 5-325 mg 00 :00 dose, On Medi diogenes tablet 1 Tue02/19/22 Branc h tablet at 1215, ALEK DICLOFENAC Yes [id number] TAKE 1 Univers 75 mg EC 4-25 05 TABLET BY ity of tablet 00:00: MOUTH [place] 00 TWICE Medical DAILY WITH Branch MEALS DICLOFENAC 2021-0 Yes [id number] TAKE 1 Univers 75 mg EC 4-25 05 TABLET BY ity of tablet 00:00: MOUTH 00 TWICE Medical DAILY WITH Branch MEALS DICLOFENAC 2021-0 Yes [id number] TAKE 1 Univers 75 mg EC 4-25 05 TABLET BY ity of tablet 00:00: MOUTH 00 TWICE Medical DAILY WITH Branch MEALS GABAPENTIN 2021-0 Yes [id number] TAKE 1 Univers 400 mg 4-11 CAPSULE BY ity of capsule 00:00: MOUTH [place] 00 THREE Medical TIMES Branch DAILY GABAPENTIN 2021-0 Yes [id number] TAKE 1 Univers 400 mg 4-11 CAPSULE BY ity of capsule 00:00: MOUTH [place] 00 THREE Medical TIMES Branch DAILY GABAPENTIN 2021-0 Yes [id number] TAKE 1 Univers 400 mg 4-11 CAPSULE BY ity of capsule 00:00: MOUTH [place] 00 THREE Medical TIMES Branch DAILY tiZANidine 0 Yes [id number] 2mg Take 1 Univers 2 mg tablet 4-06 05 tablet by ity of 00:00: mouth [place] 00 every 8 Medical (eight) Branch hours as needed (muscle spasms). sildenafil 0 Yes [id number] 20mg Take 1 Univers (REVATIO) 4-06 tablet by ity o f 20 mg 00:00: mouth as [place] tablet 00 needed Medical (Take 1 Branch tablet by mouth as needed (Erectile Dsyfynctio n). Take 1 Take 30 mins prior to being intimate. Do not exceed 40mg in 24H. Do not mix with any other medication ). tiZANidine 0 Yes [id number] 2mg Take 1 Univers 2 mg tablet 4-06 05 tablet by ity of 00:00: mouth [place] 00 every 8 Medical (eight) Branch hours as needed (muscle spasms). sildenafil Yes [id number] 20mg Take 1 Univers (REVATIO) 4-06 tablet by ity o f 20 mg 00:00: mouth as [place] tablet 00 needed Medical (Take 1 Branch tablet by mouth as needed (Erectile Dsyfynctio n). Take 1 Take 30 mins prior to being intimate. Do not exceed 40mg in 24H. Do not mix with any other medication ). tiZANidine 0 Yes [id number] 2mg Take 1 Univers 2 mg tablet 4-06 05 tablet by ity of 00:00: mouth [place] 00 every 8 Medical (eight) Branch hours as needed (muscle spasms). sildenafil 0 Yes [id number] 20mg Take 1 Univers (REVATIO) 4-06 tablet [...] g every 4 ity of 14:32: (four) [place] 56 hours. Medical Branch atomoxetine 2021-0 Yes 40mg Take 40 mg Univers 40 mg 3-24 by mouth ity of capsule 14:32: daily. [place] [address] Medical Branch traZODone 2021-0 Yes 150mg Take 150 Uni vers 100 mg 3-24 mg by ity of tablet 14:32: mouth at [place] [address] bedtime. Medical Branch duloxetine 2021-0 Yes 30mg Take 30 mg U nivers HCl 3-24 by mouth ity of (DULOXETINE 14:32: at [place] ORAL) 56 bedtime. Medical Branch ALBUTEROL 2021-0 Yes 8.5g Inhale 8.5 Un cecile INHALE 3-24 g every 4 ity of 14:32: (four) [place] 56 hours. Medical Branch atomoxetine 2021-0 Yes 40mg Take 40 mg Univers 40 mg 3-24 by mouth ity of capsule 14:32: daily. [place] [address] Medical Branch traZODone 2021-0 Yes 150mg Take 150 Uni vers 100 mg 3-24 mg by ity of tablet 14:32: mouth at [place] [address] bedtime. Medical Branch duloxetine 0 Yes 30mg Take 30 mg U nivers HCl 3-24 by mouth ity of (DULOXETINE 14:32: at [place] ORAL) 56 bedtime. Medical Branch ALBUTEROL 2021-0 Yes 8.5g Inhale 8.5 Un cecile INHALE 3-24 g every 4 ity of 14:32: (four) [place] 56 hours. Medical Branch atomoxetine 2021-0 Yes 40mg Take 40 mg Univers 40 mg 3-24 by mouth ity of capsule 14:32: daily. [place] [address] Medical Branch traZODone 2021-0 Yes 150mg Take 150 Uni vers 100 mg 3-24 mg by ity of tablet 14:32: mouth at [place] [address] bedtime. Medical Branch duloxetine 2021-0 Yes 30mg Take 30 mg U nivers HCl 3-24 by mouth ity of (DULOXETINE 14:32: at [place] ORAL) 56 bedtime. Medical Branch traMADoL 2021-0 Yes [id number] 1{tbl} Take 1 Univers 100 mg Tab 3-09 tablet by ity of 00:00: mouth 3 [place] 00 (three) Medical times Branch daily as needed for Pain (scale 7-10). traMADoL Yes [id number] 1{tbl} Take 1 Univers 100 mg Tab 3-09 tablet by ity of 00:00: mouth 3 [place] 00 (three) Medical times Branch daily as needed for Pain (scale 7-10). traMADoL Yes [id number] 1{tbl} Take 1 Univers 100 mg Tab 3-09 tablet by ity of 00:00: mouth 3 [place] 00 (three) Medical times Branch daily as needed for Pain (scale 7-10). nicotine Yes [id number] 1{patch Apply 1 Univers mg/24 hr 2-23 } Patch to ity of patch 00:00: area(s) [place] 00 every 24 Medical (twenty-fo Branch ur) hours. Apply 21mg patch daily x 6 weeks; then apply 14mf patch daily x 2 weeks; then apply 7mg patch daily x 2 weeks. Stop smoking on initiation of therapy nicotine Yes [id number] 1{patch Apply 1 Univers mg/24 hr 2-23 } Patch to ity of patch 00:00: area(s) [place] 00 daily. Medical Apply 21mg Branch patch daily x 6 weeks; then apply 14mf patch daily x 2 weeks; then apply 7mg patch daily x 2 weeks. Stop smoking on initiation of therapy nicotine Yes [id number] 1{patch Apply 1 Univers mg/24 hr 2-23 } Patch to ity of patch 00:00: area(s) [place] 00 every 24 Medical (twenty- Branch ur) hours. Apply 21mg patch daily x 6 weeks; then apply 14mf patch daily x 2 weeks; then apply 7mg patch daily x 2 weeks. Stop smoking on initiation of therapy nicotine Yes [id number] 1{patch Apply 1 Univers mg/24 hr 2-23 } Patch to ity of patch 00:00: area(s) [place] 00 every 24 Medical (twenty-fo Branch ur) hours. Apply 21mg patch daily x 6 weeks; then apply 14mf patch daily x 2 weeks; then apply 7mg patch daily x 2 weeks. Stop smoking on initiation of therapy nicotine Yes [id number] 1{patch Apply 1 Univers mg/24 hr 2-23 } Patch to ity of patch 00:00: area(s) [place] 00 daily. Medical Apply 21mg Branch patch daily x 6 weeks; then apply 14mf patch daily x 2 weeks; then apply 7mg patch daily x 2 weeks. Stop smoking on initiation of therapy nicotine Yes [id number] 1{patch Apply 1 Univers mg/24 hr 2-23 } Patch to ity of patch 00:00: area(s) [place] 00 every 24 Medical (twenty-fo Branch ur) hours. Apply 21mg patch daily x 6 weeks; then apply 14mf patch daily x 2 weeks; then apply 7mg patch daily x 2 weeks. Stop smoking on initiation of therapy nicotine Yes [id number] 1{patch Apply 1 Univers mg/24 hr 2-23 } Patch to ity of patch 00:00: area(s) [place] 00 every 24 Medical (twenty-fo Branch ur) hours. Apply 21mg patch daily x 6 weeks; then apply 14mf patch daily x 2 weeks; then apply 7mg patch daily x 2 weeks. Stop smoking on initiation of therapy nicotine Yes [id number] 1{patch Apply 1 Univers mg/24 hr 2-23 } Patch to ity of patch 00:00: area(s) [place] 00 daily. Medical Apply 21mg Branch patch daily x 6 weeks; then apply 14mf patch daily x 2 weeks; then apply 7mg patch daily x 2 weeks. Stop smoking on initiation of therapy nicotine Yes [id number] 1{patch Apply 1 Univers mg/24 hr 2-23 } Patch to ity of patch 00:00: area(s) [place] 00 every 24 Medical (twenty-fo Branch ur) hours. Apply 21mg patch daily x 6 weeks; then apply 14mf patch daily x 2 weeks; then apply 7mg patch daily x 2 weeks. Stop smoking on initiation of therapy clopidogreL 2021-0 Yes [id number] 75mg Take 1 Univers 75 mg 2-07 tablet by ity of tablet 00:00: mouth [place] 00 daily. Medical Branch clopidogreL 2021-0 Yes [id number] 75mg Take 1 Univers 75 mg 2-07 tablet by ity of tablet 00:00: mouth [place] 00 daily. Medical Branch clopidogreL 2021-0 Yes [id number] 75mg Take 1 Univers 75 mg 2-07 tablet by ity of tablet 00:00: mouth [place] 00 daily. Medical Branch atorvastati 2021-0 Yes [id number] 80mg Take 1 Univers n 80 mg 2-04 tablet ity of tablet 00:00: through [place] 00 enteral Medical tube at [place] bedtime. atorvastati 2021-0 Yes [id number] 80mg Take 1 Univers n 80 mg 2-04 tablet ity of tablet 00:00: through [place] 00 enteral Medical tube at [place] bedtime. atorvastati 2021-0 Yes [id number] 80mg Take 1 Univers n 80 mg 2-04 tablet ity of tablet 00:00: through [place] 00 enteral Medical tube at [place] bedtime. risperiDONE Yes 1mg Take 1 mg U nivers 1 mg tablet 9-15 by mouth 3 it y of 00:00: (three) [place] 00 times Medical daily. Branch risperiDONE 0 Yes 1mg Take 1 mg U nivers 1 mg tablet 9-15 by mouth 3 it y of 00:00: (three) [place] 00 times Medical daily. Branch risperiDONE Yes 1mg Take 1 mg U nivers 1 mg tablet 9-15 by mouth 3 it y of 00:00: (three) [place] 00 times Medical daily. Branch Flonase Flonase Yes Na Gomes 2 spray in Common 07 each Spirit 00:00: nostril - [facility] 00 [facility] Immunizations Ordered Filled Immunization Date Status Comments [facility] e Immunization Name Name SARS-COV-2 COVID-19 2021-05-30 Completed Unive rsity of MODERNA VACCINE 00:00:00 [facility] SARS-COV-2 COVID-19 2021-05-30 Completed Unive rsity of MODERNA VACCINE 00:00:00 [facility] SARS-COV-2 COVID-19 2021-05-30 Completed Unive rsity of MODERNA VACCINE 00:00:00 [facility] SARS-COV-2 COVID-19 2021-03-18 Completed Unive rsity of MODERNA VACCINE 00:00:00 [facility] SARS-COV-2 COVID-19 2021-03-18 Completed Unive rsity of MODERNA VACCINE 00:00:00 [facility] SARS-COV-2 COVID-19 2021-03-18 Completed Unive rsity of MODERNA VACCINE 00:00:00 [facility] SARS-COV-2 COVID-19 2021-02-04 Completed Unive rsity of MODERNA VACCINE 00:00:00 [facility] SARS-COV-2 COVID-19 2021-02-04 Completed Unive rsity of MODERNA VACCINE 00:00:00 [facility] SARS-COV-2 COVID-19 2021-02-04 Completed Unive rsity of MODERNA VACCINE 00:00:00 [facility] Vital Signs Vital Name Observation Time Observation Value Comments Source Systolic blood 2022-02-19 16:05:00 144 mm[Hg] Univer sity of pressure [facility] Diastolic blood 2022-02-19 16:05:00 99 mm[Hg] Unive rsity of pressure [facility] Heart rate 2022-02-19 16:05:00 85 /min [facility] Body temperature 2022-02-19 16:05:00 36.5 Terri [facility] Respiratory rate 2022-02-19 16:05:00 18 /min [facility] Body weight 2022-02-19 16:05:00 82.101 kg [facility] BMI 2022-02-19 16:05:00 25.24 kg/m2 [facility] Oxygen saturation in 2022-02-19 16:05:00 99 /min [facility] blood by [facility] Pulse oximetry Branch Procedures Procedure Date / Time Performed Performing Clinician [facility] e XR HUMERUS 2 VW LEFT 2022-02-19 16:30:29 Marce Armendariz [facility] XR SHOULDER 2+ VW 2022-02-19 16:30:29 Marce Armendariz [facility] CONSENT/REFUSAL FOR 2022-02-19 16:00:18 Doctor Unassigned, No Un [facility] DIAGNOSIS AND Name Medical Branch TREATMENT [id number] 2020-10-30 00:00:00 SPANI [facility] [id number] 2020-01-28 00:00:00 [email or web address] [facility] [id number] 2020-01-28 00:00:00 [email or web address].02 [facility] [id number] 2020-01-28 00:00:00 [email or web address].02 [facility] [id number] 2020-01-28 00:00:00 [email or web address].02 [facility] [id number] 2020-01-28 00:00:00 [email or web address] [facility] Plan of Care Planned Activity Planned Date Details Comments Source Future Scheduled Test COLON CANCER SCREENING: [facility] COLONOSCOPY [code = Medicine COLON CANCER SCREENING: COLONOSCOPY] Future Scheduled Test MEDICARE AWV [code = [facility] MEDICARE AWV] Medicine Future Scheduled Test TETANUS SHOT (ADULT) [facility] [code = TETANUS SHOT Medicin e (ADULT)] Future Scheduled Test HEPATITIS C SCREENING [facility] [code = HEPATITIS C Medicine SCREENING] Future Scheduled Test HIV SCREENING [code = [facility] HIV SCREENING] Medicine Future Scheduled Test FLU VACCINE > 6 MONTHS [facility] [code = FLU VACCINE > 6 Medi cine MONTHS] Encounters Start End Encounter Admission Attending Care Care Encounter Source Date/Time Date/Time Type Type Clinicians Facility Department ID 2022-01-25 Outpatient [facility] [id number] [place] 11:56:41 [id number] [facility] 2022-01-19 Outpatient [facility]AR[facility]AND [facility] [id number] [place] 03:16:47 [facility] [id number] [facility] 2022-01-18 Outpatient [facility] [id number] [place] 12:57:31 [id number] [facility] 2022-01-01 [facility] [id number] [place] 15:24:56 [facility] 2021-11-13 Outpatient [facility] [id number] [place] 15:22:56 [facility] 2021-11-12 Outpatient [id number] [facility] CVA [facility] 10:42:58 1002 2021-11-12 Outpatient [id number] [facility] REF [id number] E[facility] 10:40:46 0927 2021-11-11 [facility] [id number] 2 Common 11:17:41 [id number] [facility] 2021-11-11 [facility] [id number] 2 Common 11:00:18 [id number] [facility] 2021-11-11 Outpatient Lucy Gomes STLMLC STLMLC [id number] 2 Common 11:00:09 [id number] [facility] 2020-10-30 [facility]patient [facility] [id number] [facility] 12:19[id number] 2020-01-28 Inpatient Mio Frances [facility] [id number] [facility] 16:09:00 [id number] [facility] 2020-01-25 Inpatient Mio Frances [facility] [id number] [facility] 16:41:00 [facility] 2022-03-25 2022-03-25 Outpatient R LAURA [facility] [id number] Univers 10:40:00 10:40:00 SOLE abby [facility] 2022-03-03 2022-03-03 [id number] Univers 16:00:00 16:00:00 SOLE morales [facility] 2022-02-19 2022-02-19 [facility] [id number] Univers 11:05:00 12:06:00 MARCE morales [facility] 2022-02-19 2022-02-19 [facility] [id number] Univers 11:05:00 12:06:00 Marce HANSEN [id number] ity of [place] [id number] [facility] [id number] [facility] 084 Branch 2022-02-19 2022-02-19 Orders Doctor GINA [id number] Univers 00:00:00 00:00:00 Only Unassigned, FERN [id number] [facility] [id number] [facility] [id number] [facility] 009 Branch 2022-02-15 2022-02-15 Outpatient [id number] DISP DISP [id number] Dispatc 09:30:00 09:30:00 3 Health 2022-02-11 2022-02-11 Telephone Laura [facility] [id number] Univers 00:00:00 00:00:00 Sole HANSEN [id number] i [facility]AS [id number] Nichole norman EMERSONTAMMI [id number] Ut dical NAL 044 [facility] 2022-02-09 2022-02-09 Outpatient [id number] DISP DISP [id number] Dispatc 04:40:00 04:40:00 3 [address] [facility] 2022-02-09 2022-02-09 Outpatient Gustavo, DISP DISP a40 [id number] 00:00:00 00:00:00 Brianda [id number] 2021-06-10 2021-06-10 Outpatient Zuniga[facility]F [facility] [id number]- [id number] [place] 09:20:00 09:20:00 [facility]25 [facility] 2021-06-03 2021-06-03 Outpatient A_Byrd [facility] [id number] 021 [place] 10:29:00 10:29:00 0818 [facility] 2020-10-31 2020-10-31 Outpatient Lucio, HCACL LABO [id number] [facility] 00:22:00 00:22:00 Oladipo [address] [facility] 2020-06-20 2020-06-20 [facility] [id number] Common 10:36:00 10:36:[address] [facility] 2020-05-23 2020-05-23 [facility] 31 [id number] Common 16:20:00 16:20:[address] [facility] 2020-05-23 2020-05-23 [facility] 31 [id number] Common 15:25:00 15:25:00 [place] [employer] [address] [facility] 2020-01-28 2020-01-28 Outpatient DORIAN DotyNW REF [id number] [facility] 14:20:00 14:20:00 Cristopher [id number] [facility] 2020-01-01 2020-01-01 [facility] 30 [id number] Common 16:10:00 16:10:00 [place] [address] [facility] 2019-12-26 2019-12-26 [facility] 29 [id number] Common 08:44:00 08:44:00 [place] [address] [facility] 2019-12-05 2019-12-05 [facility] 29 [id number] Common 15:07:00 15:07:00 [place] [address] [facility] 2019-09-24 2019-09-24 [facility] 28 [id number] Common 09:27:00 09:27:00 [place] [address] [facility] 2019-09-06 2019-09-06 [facility] 28 [id number] Common 12:00:00 12:00:00 [place] [address] [facility] 2019-08-18 2019-08-18 [facility] 28 [id number] Common 17:55:00 17:55:00 [place] [address] [place] [address] [facility] 2019-08-01 2019-08-01 [facility] 27 [id number] Common 09:00:00 09:00:00 [place] [address] [place] [address] [facility] 2019-06-07 2019-06-07 [facility] 26 [id number] Common 11:20:00 11:20:00 [place] [address] [facility] 2019-01-04 2019-01-04 [facility] 24 [id number] Common 14:04:00 14:04:00 [address] [place] [address] [facility] 2018-11-23 2018-11-23 [facility] 24 [id number] Common 09:15:00 09:15:00 [facility] 2018-11-20 2018-11-20 [facility] 24 [id number] Common 10:13:00 10:13:00 [place] [address] [facility] 2018-11-15 2018-11-15 [facility] 23 [id number] Common 15:15:00 15:15:00 [place] [address] [facility] 2018-10-09 2018-10-09 [facility] 23 [id number] Common 10:19:00 10:19:00 [place] [address] [facility] 2018-06-02 2018-06-02 [facility] 15 [id number] Common 16:46:00 16:46:00 [address] [place] [address] [facility] 2018-05-11 2018-05-11 [facility] 13 [id number] Common 09:45:00 09:45:00 [address] [place] [address] [place] [address] [facility] Results Test Description Test Time Test Comments Results Result Comments Source HOMOCYSTEINE PROFILE 2020-11-01 10:10:00 Test Item Value Reference Range Interpretation Comme nts HOMOCYSTEINE (test code = 15.3 umol/L 0.0-14.5 A Pe rformed At: HD [facility] HOMOCY) [address] 770 [id number] So MD Ph:[phone] RAPID PLASMA [id number] 06:11:00 Test Item Value Reference Range Interpretation Comments RAPID PLASMA REAGIN Non Reactive Non Reactive Performe d At: HD (test code = RPR) [facility] Ho [id number] [place], [place] [id number] jyoti So MD Ph:[phone] - CT HEAD/BRAIN W/O [id number] 14:36:00 [facility] 1960 Sex: M Name: OTONIEL HENDERSON : 1960 Age/S: 60 / M [id number] Unit #: [id number] Loc:[place] [address] Phys: Ximena Valdes MD Acct: [id number] Dis Date: Status: ADM IN PHONE #: [phone] Exam Date: 10/31/2020 1420 FAX #: Reason: CVA EXAMS: CPT: [id number] CT HEAD/BRAIN W/O CONT [id number] HISTORY: CVA. CT brain, unenhanced. Reformatted sagittal [...] M.D CC: Ximena Valdes MD; Karen PHAM Navid Technologist:RT Ratna (R)(CT) CTDI: DLP: Trnscb Date/Time: 10/31/2020 (1436) t.SDR.RCM1 Orig Print D/T: S: 10/31/2020 (4926) PAGE 1 Signed ReportSED [id number] 10:34:00 Test Item Value Reference Range Interpretation Comments SED RATE (test code = SEDW) 7 mm/hr 0-15 SED RATE [id number] 10:33:00 Test Item Value Reference Range Interpretation Comments SED RATE WESTERGREN (test code = 7 mm/hr 0-15 N SEDW) [id number] 07:00:00 Test Item Value Reference Range Interpretation Comments GLYCOSYLATED HEMOGLOBIN (HA1C) 5.5 % A1C 0.0-5.7 N (test code = GLYHGB) ESTIMATED AVERAGE GLUCOSE (test 111 MG/DLest code = EAG) BASIC METABOLIC [id number] 06:55:00 Test Item Value Reference Range Interpretation [...] WITHIN 1 HR AND FREEZE SERUM PROMPTLY.HOMOCYSTEINE [id number] 06:55:00 Test Item Value Reference Range Interpretation Comments HOMOCYSTEINE (test code = HOMOCY) mcMOL/L <9 Comment: FASTING IN AM PATIENT SHOULD BE FASTING OVERNIGHT 10-12 HRS. TAKE BLOOD TO LABASAP. MUST SEPAPATE SERUM FROM CELLS WITHIN 1 HR AND FREEZE SERUM PROMPTLY.CBC W/AUTO [id number] 06:41:00 Test Item Value Reference Range Interpretation [...] NO DIFF/SCN CRITERIA = MDIFF) GLUCOSE BEDSIDE [id number] 23:18:00 Test Item Value Reference Range Interpretation Comments GLUCOSE BEDSIDE TESTING (test code = 94 mg/dL 70-110 N GLUBED) COVID 19 INHOUSE [id number] 15:04:00 Test Item Value Reference Range Interpretation Comments COVID 19 INHOUSE AG NEGATIVE Negative Per manu facturer, (test code = negative result s should [id number]) be treated aspr esumptive and, if inconsi [...] with COVID-19. UA RFLX MICR CULT IF [id number] 14:02:00 Test Item Value Reference Range Interpretation [...] UACULT) Indication for culture: Dysuria/Frequency- CT ANGIO [id number] 13:00:00 [facility] 1960 Sex: M Name: OTONIEL HENDERSON [facility] : 1960 Age/S: 60 / M [id number] Unit #: [id number] Loc:[place] [address] Phys: Anjum Rivera MD Acct: [id number] Dis Date: Status: PRE ER PHONE #: [phone] Exam Date: 10/30/2020 1237 FAX #: Reason: slurred speech EXAMS: CPT: [id number] CT ANGIO NECK [id number]: - CT ANGIO HEAD, - CT ANGIO [...] Signed Report (CONTINUED) Name: OTONIEL HENDERSON [facility] [place] : 1960 Age/S: 60 / M [address] Unit #: [id number] Loc: [place] [address] Phys: Anjum Rivera MD Acct: [id number] Dis Date: Status: PRE ER PHONE #: [phone] Date: 10/30/2020 1235 FAX #: Reason: slurred speech EXAMS: CPT: [id number] ANGIO NECK 34648 <Continued> stenosis. Findings were personally discussed with [...] (1300) tSEVERINOR.PR7 Orig Print D/T: S: 10/30/2020 (0913) PAGE 2 Signed Report- CT ANGIO [id number] 13:00:00 [facility] : 1960 Sex: M Name: OTONIEL HENDERSON [facility] [place] : 1960 Age/S: 60 / M [address] Unit #: [id number] Loc:[place] [address] Phys: Anjum Rivera MD Acct: [id number] Dis Date: Status: PRE ER PHONE #: [phone] Exam Date: 10/30/2020 1233 FAX #: Reason: slurred speech EXAMS: CPT: [id number] CT ANGIO HEAD [id number]: - CT ANGIO HEAD, - CT ANGIO [...] HENDERSON : 1960 Age/S: 60 / M [address] Unit #: [id number] Loc: [place] [address] Phys: Anjum Rivera MD Acct: [id number] Dis Date: Status: PRE ER PHONE #: [phone] Date: 10/30/2020 1233 FAX #: Reason: slurred speech EXAMS: CPT: [id number] ANGIO HEAD 644[address] <Continued> stenosis. Findings were personally discussed with [...] 10/30/2020 (1303) PAGE 2 Signed ReportBASIC METABOLIC [id number] 12:50:00 Test Item Value Reference Range Interpretation [...] 8.9 MG/DL 8.5-10.1 N Completed by Nursing: [id number] 12:50:00 Test Item Value Reference Range Interpretation [...] suman yby method. Completed by Nursing: NOPROTHROMBIN [id number] 12:47:00 Test Item Value Reference Range Interpretation Comments PT PATIENT (test code = PTP) 10.5 SECONDS 9.3-12.9 N INTERNATIONAL NORMAL RATIO 0.94 INR Unit 0.8-1.2 N (test code = INR) THROMBOPLASTIN TIME [id number] 12:47:00 Test Item Value Reference Range Interpretation Comments THROMBOPLASTIN TIME PARTIAL 27.9 SECONDS 26-35 N (test code = PTT) BASIC METABOLIC [id number] 12:43:00 Test Item Value Reference Range Interpretation [...] 8.9 MG/DL 8.5-10.1 N Completed by Nursing: [id number] 12:43:00 Test Item Value Reference Range Interpretation Comments TROPONIN-I (test code = TROPI) NG/ML 0.000-0.045 Completed by Nursing: NO- CT HEAD/BRAIN W/O [id number] 12:40:00 [facility] : 1960 Sex: M Name: OTONIEL HENDERSON [facility] : 1960 Age/S: 60 / M [address] Unit #: [id number] Loc:[place] [address] Phys: Anjum Rivera MD Acct: [id number] Dis Date: Status: PRE ER PHONE #: [phone] Exam Date: 10/30/2020 1231 FAX #: Reason: Code Stroke EXAMS: CPT: [id number] CT HEAD/BRAIN W/O CONT [id number]: - CT HEAD/BRAIN W/O CONT. LOCATION: S17. [...] [place] : 1960 Age/S: 60 / M [address] Unit #: [id number] Loc: [place] [address] Phys: Anjum Rivera MD Acct: [id number] Dis Date: Status: PRE ER PHONE #: [phone] Exam Date: 10/30/2020 1231 FAX #: Reason: Code Stroke EXAMS: CPT: [id number] CT HEAD/BRAIN W/O CONT 66533 <Continued> at 1240 Reported and signed by: Manjinder Antonio M.D. CC: Anjum Rivera MD Technologist:Yohan Love, RT(R)(CT); Kr CTDI: DLP: Trnscb Date/Time: 10/30/2020 (1240) t.SDR.ANS4 Orig Print D/T: S: 10/30/2020 (0093) PAGE 2 Signed ReportCBC W/O [id number] 12:35:00 Test Item Value Reference Range Interpretation [...] 10.70 fL 7.0-9.6 H MPV) GLUCOSE BEDSIDE [id number] 12:29:00 Test Item Value Reference Range Interpretation Comments GLUCOSE BEDSIDE TESTING (test code 140 mg/dL 70-110 H = GLUBED) BASIC METABOLIC [id number] 06:50:00 Test Item Value Reference Range Interpretation [...] mg/dL 8.8-10.2 N = CA) CBC W/AUTO [id number] 06:40:00 Test Item Value Reference Range Interpretation [...] BA#) 0.07 x10 3/uL 0.0-0.20 N VANCOMYCIN [id number] 13:34:00 Test Item Value Reference Range Interpretation Comments VANCOMYCIN TROUGH (test code = 14.4 mcg/ML 10.0-20.0 N VANCT) Spec Comments: RN PLS DRAW VANCO 30MIN BEFORE DOSE DUE ON 01/30 BASIC METABOLIC [id number] 04:08:00 Test Item Value Reference Range Interpretation [...] code 8.8 mg/dL 8.8-10.2 N = CA) [id number] 04:08:00 Test Item Value Reference Range Interpretation Comments MAGNESIUM (test code = MAG) 1.7 mg/dL 1.4-2.6 N CBC W/AUTO [id number] 03:56:00 Test Item Value Reference Range Interpretation [...] 0.09 x10 3/uL 0.0-0.20 N BASIC METABOLIC [id number] 21:22:00 Test Item Value Reference Range Interpretation [...] mg/dL 8.8-10.2 N = CA) RENAL FUNCTION [id number] 21:22:00 Test Item Value Reference Range Interpretation Comments ALBUMIN (test code = ALB) 3.4 G/DL 3.5-5.0 L PHOSPHOROUS (test code = PHOS) 2.0 mg/dL 2.7-4.5 L LIVER FUNCTION [id number] 21:22:00 Test Item Value Reference Range Interpretation [...] = 63 U/L 45-120 N ALKP) LACTIC [id number] 21:18:00 Test Item Value Reference Range Interpretation Comments LACTIC ACID (test code = LACT) 9.4 mg/dL 4.5-18.0 N PROTHROMBIN [id number] 21:12:00 Test Item Value Reference Range Interpretation [...] 2.5-3.5recurren t systemic emboli sm. THROMBOPLASTIN TIME [id number] 21:12:00 Test Item Value Reference Range Interpretation Comments THROMBOPLASTIN TIME 28.6 SECONDS 26.0-35.9 N INTERPRE TATIVE PARTIAL (test code = DATA: erapeutic PTT) range: Unfractionated heparin:47 - 71 seconds Argatroban:1.5 to 3 times the basel ine PTT PROTHROMBIN [id number] 21:09:00 Test Item Value Reference Range Interpretation [...] 2.5-3.5recurren t systemic emboli sm. THROMBOPLASTIN TIME [id number] 21:09:00 Test Item Value Reference Range Interpretation Comments THROMBOPLASTIN TIME PARTIAL (test SECONDS 26.0-35.9 code = PTT) CBC W/AUTO [id number] 21:08:00 Test Item Value Reference Range Interpretation [...] 0.05 x10 3/uL 0.0-0.20 N CBC W/MANUAL [id number] 05:21:00 Test Item Value Reference Range Interpretation [...] code NORMAL NORMAL = PLTMORPH) RENAL FUNCTION [id number] 05:20:00 Test Item Value Reference Range Interpretation [...] 2.5 mg/dL 2.7-4.5 L code = PHOS) [id number] 05:20:00 Test Item Value Reference Range Interpretation Comments MAGNESIUM (test code = MAG) 1.8 mg/dL 1.4-2.6 N CBC W/MANUAL [id number] 04:48:00 Test Item Value Reference Range Interpretation [...] code = LYMPH) % 20.5-45.5 CBC W/MANUAL [id number] 04:48:00 Test Item Value Reference Range Interpretation [...] (test code = LYMPH) % 20.5-45.5 SURGICAL [id number] 12:52:00 RUN DATE: 01/29/20 [facility] - LAB PAGE 1 RUN TIME: 1252 Specimen Inquiry RUN USER: INTERFACE PATIENT: OTONIEL HENDERSON LOC: PJuliana7S POD C U #: [id number] AGE/SX: 59/M ROOM: [facility] RE01/25/20REG DR: Cristopher Doty MD : [birth year] BED: 1 DIS: STATUS: ADM IN TLOC: SPEC #: [id number] RECD: 01/28/20 STATUS: SOUJacky REQ #: [id number] SIMON: 01/28/[address] [facility] DR: Cristopher Doty MD ENTERED: 01/28/20 SP TYPE: SURG OTHR DR: Roxanna Primary or Family Physician Mio Gilbert MD No,DocORDERED: PATHGM3, PATHGM5/2, PATH SPEC, H E STAIN HISTOLOGY: TISSUE ID BLK PCS PARISH LEV / PROCEDURE DISPOSITION ____ ___ ___ ___ ___ COLON SEG NTUMR A 18 1 TISSUES: A. 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 Signed SIGNATURE ON FILE Nita Ashford 01/29/20 3472 END OF REPORT BASIC METABOLIC [id number] 08:29:00 Test Item Value Reference Range Interpretation [...] code 9.2 mg/dL 8.8-10.2 N = CA) [id number] 08:29:00 Test Item Value Reference Range Interpretation Comments MAGNESIUM (test code = MAG) 1.3 mg/dL 1.4-2.6 L CBC W/AUTO [id number] 08:04:00 Test Item Value Reference Range Interpretation [...] x10 3/uL 0.0-0.20 N Novel Coronavirus 2018 [id number] 14:20:00 Test Item Value Reference Range Interpretation Comments Novel Coronavirus NEGATIVE Positive r esults are 2018 nCoV (test indicative o f the presence code = COVID19) cqYWZL-HrJ-6 RNA, clinical correlation wit h patient historyand [...] for the identification of SARS-CoV-2 RNA usingthe [employer] M[employer] Sy stem under the FDA Emergen cy UseAuthorizatio n. The testing is perf ormed by personneltrabryan d in the procedures for the [employer] M2000 molecular diagnostic SARS-CoV-2 assa y in vitro. NEGATIVE Value reported toFirst Name: SAVITA Last Name:[facility] [place] RESULTS READ BACK AND VERIFIEDbyP.LAB.RS, on 01/26/20, @ 1934.- XR ABDOMEN [id number] 14:18:00Patient Name: OTONIEL HENDERSON Unit No: [id number] EXAMS: CPT CODE: [id number] XR ABDOMEN 1V 46142 Abdomen one view supine 01/28/2020 CLINICAL INDICATION: [...] m2): Air Kerma (mGy): Trscr Dt/Tm: 01/28/2020 (1415) by:[email or web address] Printed Date/Time: 01/28/2020 (8772) Name: OTONIEL HENDERSON [facility] Phys: José Antonio Zamora MD [address] : 1960 Age: 59 Sex: [place] [address] [facility] [id number] Loc: P.0733 1 Exam Date: 01/28/2020 Status: ADM IN PH: FAX: PAGE 1 Signed ReportCOMPREHENSIVE METABOLIC [id number] 07:39:00 Test Item Value Reference Range Interpretation [...] 45-120 N PHOSPHATASE (test code = ALKP) [id number] 07:39:00 Test Item Value Reference Range Interpretation Comments MAGNESIUM (test code = MAG) 1.4 mg/dL 1.4-2.6 N CBC W/AUTO [id number] 07:12:00 Test Item Value Reference Range Interpretation [...] = BA#) 0.10 x10 3/uL 0.0-0.20 N [id number] 15:08:00 Test Item Value Reference Range Interpretation Comments LITHIUM (test 0.5 mmol/L 0.6-1.2 L code = LITH) Detection Limit = 0.1 <0.1 indicate s None DetectedPerform ed At: HD [facility] [address] [id number] Kyle L MD Ph:[phone] [id number] 15:08:00 Test Item Value Reference Range Interpretation Comments LITHIUM (test 0.5 mmol/L 0.6-1.2 L code = LITH) Detection Limit = 0.1 <0.1 indicate s None DetectedPerform ed At: HD [facility] [address] [id number] So MD Ph:[phone] Novel Coronavirus 2019 [id number] 07:11:00 Test Item Value Reference Range Interpretation [...] PHOSPHATASE (test code = ALKP) CBC W/AUTO [id number] 04:21:00 Test Item Value Reference Range Interpretation [...] 3/uL 0.0-0.20 N - CT ABD PELVIS [id number] 09:58:00Patient Name: OTONIEL HENDERSON Unit No: [id number] EXAMS: CPT CODE: [id number] CT ABD PELVIS W/CONT 76293 CT abdomen and pelvis with IV contrast. [...] renal cyst. Additional findings as above. [facility] Phys: WEVILMA. - Norbert William MD [address] : 1960 Age: 59 Sex: M [place] [address] Loc: P.0723 1 Exam Date: 01/26/2020 Status: ADM IN PH: FAX: PAGE 1 Signed Report (CONTINUED) Patient Name: OTONIEL HENDERSON Unit No: [id number] EXAMS: CPT CODE: [id number] CT ABD PELVIS W/CONT 02335 <Continued> at 0958 Reported and signed by: OTONIEL ROSSI M.D. CC: Cristopher Doty MD; Norbert William MD Technologist: ANTONIO Valle)(CT) CTDI: 11.68 DLP: 602 Trscr Dt/Tm: 01/26/2020 (0958) by:[email or web address] Printed Date/Time: 01/26/2020 (1001)Name: OTONIEL HENDERSON [facility] Phys: ALONSOVILMA. - Norbert William MD [address] : 1960 Age: 59 Sex: [place] [address] Loc: P.0723 1 Exam Date: 01/26/2020 Status: ADM IN PH: FAX: PAGE 2 Signed ReportCOMPREHENSIVE METABOLIC [id number] 05:50:00 Test Item Value Reference Range Interpretation [...] PHOSPHATASE (test code = ALKP) CBC W/AUTO [id number] 04:55:00 Test Item Value Reference Range Interpretation [...] 0.15 x10 3/uL 0.0-0.20 N COMPREHENSIVE METABOLIC [id number] 18:44:00 Test Item Value Reference Range Interpretation [...] N PHOSPHATASE (test code = ALKP) PROTHROMBIN [id number] 18:32:00 Test Item Value Reference Range Interpretation [...] 2.5-3.5recurren t systemic emboli sm. CBC W/AUTO [id number] 18:26:00 Test Item Value Reference Range Interpretation [...]
--- NOTE | 2022-03-02 01:40 | ER ---
Nurse's Notes [facility] Name: Gregory Dumont Age: 61 yrs Sex: Male : 1960 Arrival Date: 03/01/2022 Time: 23:30 Bed 10 Private MD: Diagnosis: Presentation: 03/01 23:50 Chief complaint: Patient states: "I am bleeding from my lower abdomen." Pt has open bb wound "previous incision site" from colon surgery. Coronavirus screen: At this time, the client does not indicate any symptoms associated with coronavirus-19. Ebola Screen: No symptoms or risks identified at this time. Initial Sepsis Screen: Does the patient meet any 2 criteria? No. Patient's initial sepsis screen is negative. Does the patient have a suspected source of infection? No. Patient's initial sepsis screen is negative. Risk Assessment: Do you want to hurt yourself or someone else? Patient reports no desire to harm self or others. Onset of symptoms was March 01, 2022. 23:50 Method Of Arrival: Ambulatory bb 23:50 Acuity: MARION 3 bb Triage Assessment: 23:52 General: Appears in no apparent distress. comfortable, Behavior is calm, cooperative, bb appropriate for age. Pain: Denies pain. EENT: No signs and/or symptoms were reported regarding the EENT system. Neuro: Level of Consciousness is awake, alert, obeys commands, Oriented to person, place, time, situation. Cardiovascular: Capillary refill < 3 seconds Patient's skin is warm and dry. Respiratory: Airway is patent Respiratory effort is even, unlabored. GI: Abdomen is round non-distended, Patient currently denies abdominal pain. Derm: Wound noted suprapubic area. Historical: - Allergies: 23:52 No Known Allergies; bb - PMHx: 23:52 adhd; Anxiety; Bipolar disorder; Hypertensive disorder; strokes x 3; bb - PSHx: 23:52 knee replacements; bb - Immunization history:: Adult Immunizations up to date, Client reports receiving the 2nd dose of the Covid vaccine. - Social history:: Smoking status: Reported history of juuling and/or vaping. Patient/guardian denies using alcohol. Vital Signs: 23:50 BP 97 / 67; Pulse 79; Resp 18; Temp 98.1(O); Pulse Ox 98% on R/A; Weight 86.18 kg; bb Height 5 ft. 11 in. (180.34 cm); Pain 0/10; 23:50 Body Mass Index 26.50 (86.18 kg, 180.34 cm) [place] ED Course: 23:30 Patient arrived in ED. ross 23:51 Triage completed. [place] 23:52 Arm band placed on right wrist. bb Administered Medications: No medications were administered Outcome: 03/02 01:40 Patient left the ED. bb Signatures: Karen Bojorquez RN RN Brittany Ramírez
[2022-03-02 01:51] VITALS: BP 97/67; TEMP 98.1; O2SAT 98
== END 2022-03-02 01:40 | disposition left against medical advice (07) ==
LOC: ER 23:27
DX: Z02.9 Encounter for administrative examinations, unspecified (principal)
CPT/HCPCS: 99281

== ENCOUNTER 2022-03-02 08:24 | Emergency (ER) | payer OTHER ==
--- OUTSIDE RECORDS SUMMARY | 2022-03-02 08:29 | XMS REPORT | Continuity of Care Document ---
:1960 Author Organization [facility] t Address [address] [place] [address] Care Team Providers Name Role Phone LAURA Primary Care Physician Unavailable EVERETT Attending Clinician Unavailable [id number] Attending Clinician Unavailable Saray Gomes Attending Clinician Unavailable Steffi Gilbert Attending Clinician Unavailable LAURA Attending Clinician Unavailable Fito ARMENDARIZ Attending Clinician Unavailable Fito Armendariz DO Attending Clinician Doctor Unassigned, Name Attending Clinician Unavailable [email or web address] Attending Clinician Unavailable Laura CALDWELL Attending Clinician Gustavo Attending Clinician [phone] Elba Attending Clinician Unavailable A_Byrd Attending Clinician Unavailable Lucio Attending Clinician Unavailable Soren Attending Clinician Unavailable [id number] Admitting Clinician Unavailable Physician, Primary or Family Admitting Clinician UnavailSteffi Guo Admitting Clinician Unavailable Fito ARMENDARIZ Admitting Clinician Unavailable [email or web address] Admitting Clinician Unavailable Elba Admitting Clinician Unavailable Caryn_Gustabo Admitting Clinician Unavailable Payers Payer Name Policy Type Policy Number Effective Date Expiration Date S jorge [facility] [id number] 2021 2022 STARPLUS OON EXCEPT 00:00:00 00:00:00 [facility] [place] MEDICA[place] [id number] 2021 00:00:00 [facility] DUAL [id number] 2021 COMP HMO D SNP 00:00:00 [facility] STAR PLUS [id number] 2021 00:00:00 [employer] - [id number] 2021 UNITED [email or web address] 00:00:00 (MEDICARE REPLACEMENT/ADVANTA GE - HMO) [facility] - [id number] 2021 MEDICARE SOLUTIONS 00:00:00 - MEDICARE COMPLETE (MEDICARE REPLACEMENT HMO) [place]IC[place] B-[place]: [id number] [email or web address] [facility] [id number] 2020 COMMUNITY PLAN - 00:00:00 [place] STAR PLUS (MEDICAID HMO) Problems Condition Condition Condition Status Onset Resolution Last Treating Co mments Source Name Details Category Date Date Treatment Clinician Date ADHD ADHD Disease Active Univers (attention (attention 4-06 it y of deficit deficit 00:00: [place] hyperactiv hyperactiv 00 Me dical ity ity [...] ity of follow-up [place] Hypotensio Hypotensio Disease Active U [...] annual 2-08 ity of wellness wellness 00:00: [place] visit, visit, 00 Medical initial initial Branch 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 2-04 it y of 00:00: [place] [facility] Essential Essential Disease Active Uni vers hypertensi hypertensi 2-04 it y of on on 00:00: [place] 00 Medical Branch Nicotine Nicotine Disease Active Unive rs dependence dependence 2-04 it y of with with 00:00: [place] current current 00 Medical use use Branch Chronic Chronic Disease Active Univers bilateral bilateral 2-04 ity of low back low back 00:00: [place] pain with pain with 00 Medi diogenes bilateral bilateral Bran ch sciatica sciatica Prediabete Prediabete Disease Active U nivers s s 2-04 ity of 00:00: [place] [facility] Pulmonary Pulmonary Disease Active Uni [...] ity of 00:00: [place] 00 Medical Branch Status Status Disease Active [...] Formattin ity of 00:00: g of this [place] 00 note Medical might be Branch different from the original. ICD10 Diagnosis Term Radio Station Manager Utility 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Commo n dysfunctio dysfunctio Sp kyle n, n, - [facility]I unspecifie unspecifie St d erectile d erectile Greta kes dysfunctio dysfunctio Me dical n type n type Center Hypoglycem Hypoglycem Problem Active [place] [facility] Simple Simple Problem Active Common chronic chronic Spirit bronchitis bronchitis - [facility] Nicotine Nicotine Problem Active Commo n dependence dependence Sp kyle , , - CHI cigarettes cigarettes St , , Lu uncomplica uncomplica Me dical mann mann Center Primary Primary Problem Active 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 [facility] Seasonal Seasonal Diagnosis Active Com mon allergic allergic Spirit rhinitis, rhinitis, - CH I unspecifie unspecifie St d trigger d [facility] Folliculit Folliculit Problem Active [place] is is [facility] Arthritis Arthritis Problem Active Com mon [facility] Bipolar 1 Bipolar 1 Problem Active Com mon disorder disorder Spirit [facility] Mixed Mixed Problem Active Common hyperlipid hyperlipid Sp kyle emia emia [facility] Pure Pure Problem Active Common hyperchole hyperchole Sp kyle sterolemia sterolemia - [facility] Primary Primary Problem Active 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 - CHI involving involving St multiple [facility] joints joints Medical Center Smoker Smoker Problem Active Common [facility] Essential Essential Problem Active Com mon hypertensi hypertensi Sp kyle on on [facility] Other Other Problem Active Common chronic chronic Spirit pain pain - CHI [facility] Irritabili Irritabili Problem Active C ommon ty and ty and Spirit anger anger - CHI [facility] Elevated Elevated Problem Active Commo n blood blood Spirit pressure pressure - CHI reading reading [facility] without without [facility] diagnosis diagnosis Medi diogenes of of Center hypertensi hypertensi on on Encounter Encounter Problem Active Com mon for for Spirit tobacco tobacco - CHI use use St cessation cessation [facility] Mild Mild Problem Active Common memory memory Spirit disturbanc disturbanc - CHI e e [facility] Paresthesi Paresthesi Problem Active C ommon a of skin a of skin Spir it - CHI [facility] Otalgia of Otalgia of Problem Active C ommon left ear left ear Spirit - [facility] Dementia Dementia Problem Active Commo n in other in other Spirit diseases diseases - CHI classified classified St elsewhere elsewhere Celina s without without Medical behavioral behavioral Ce nter disturbanc disturbanc e e Impacted Impacted Problem Active Commo n cerumen of cerumen of Sp kyle left ear left ear - [facility] Alzheimer' Alzheimer' Problem Active C ommon 's 's Spirit disease, disease, - CHI unspecifie unspecifie [facility] Allergies, Adverse Reactions, Alerts Allergy Allergy Status Severity Reaction(s) Onset Inactive Treating Comm ents Source Name Type Date Date Clinician No Known DA Active U [facility] 1-14 [place] [facility] 00:00: Patel 00 [facility] No Known DA Active U [facility] 14 [facility] 00:00: Patel 00 [facility] No Known DA Active U 0 [facility] - [facility] 00:00: Health 00 are [facility] No Known DA Active U 0 [facility] 00:00: Health 00 are [facility] NO KNOWN Drug Active Univers ALLERGIE Class ity of S [place] [facility] Social History Social Habit Start Date Stop Date Quantity Comments Source History of tobacco Cigar Smoker Univ ersity of use [place] [facility] History [facility] o f Alcohol Frequency [place] M edical [facility] History [facility] o f Alcohol Std Drinks [place] [facility] History [facility] o f Alcohol Binge [facility] al Branch [facility] Alcohol intake 2022-02-19 2022-02-19 0 /d University of 00:00:00 00:00:00 [facility] Education 2021-03-21 2021-03-21 14 [facility] 00:00:00 00:00:00 [facility] Cigarettes smoked 2016-06-11 2016-06-11 Univers ity of current (pack per 00:00:00 00:00:00 ) - Reported Branch Cigarette 2016-06-11 2016-06-11 University of pack-years 00:00:00 00:00:00 [facility] Tobacco use and 2016-06-11 2016-06-11 Never used Universit y of exposure 00:00:00 00:00:00 [facility] Alcohol Comment 2016-06-11 2016-06-11 sober for 20 Univers ity of 00:00:00 00:00:00 years [facility] Smoking Status Start Date Stop Date Source Unknown if ever smoked [facility] Current some day smoker 2016-06-11 00:00:00 [facility] Medications Ordered Filled Start Stop [...] h tablet at 1215, ALEK DICLOFENAC Yes [id number] TAKE 1 Univers 75 mg EC 4-25 05 TABLET BY ity of tablet 00:00: MOUTH 00 TWICE Medical DAILY WITH Branch MEALS DICLOFENAC 2021-0 Yes [id number] TAKE 1 Univers 75 mg EC 4-25 05 TABLET BY ity of tablet 00:00: MOUTH 00 TWICE Medical DAILY WITH Branch MEALS DICLOFENAC 2021-0 Yes [id number] TAKE 1 Univers 75 mg EC 4-25 05 TABLET BY ity of tablet 00:00: MOUTH 00 TWICE Medical DAILY WITH Branch MEALS GABAPENTIN 2021-0 Yes [id number] TAKE 1 Univers 400 mg 4-11 CAPSULE BY ity of capsule 00:00: MOUTH 00 THREE Medical TIMES Branch DAILY GABAPENTIN 2022-0 Yes [id number] TAKE 1 Univers 400 mg 4-11 CAPSULE BY ity of capsule 00:00: MOUTH [place] 00 THREE Medical TIMES Branch DAILY GABAPENTIN 0 Yes [id number] TAKE 1 Univers 400 mg 4-11 CAPSULE BY ity of capsule 00:00: MOUTH [place] 00 THREE Medical TIMES Branch DAILY tiZANidine 0 Yes [id number] 2mg Take 1 Univers 2 mg tablet 4-06 05 tablet by ity of 00:00: mouth [place] 00 every 8 Medical (eight) Branch hours as needed (muscle spasms). sildenafil Yes [id number] 20mg Take 1 Univers (REVATIO) 4-06 tablet by ity o f 20 mg 00:00: mouth as [place] tablet 00 needed Medical (Take 1 Branch tablet by mouth as needed (Erectile Dsyfynctio n). Take 1 Take 30 mins prior to being intimate. Do not exceed 40mg in 24H. Do not mix with any other medication ). tiZANidine Yes [id number] 2mg Take 1 Univers 2 mg tablet 4- 05 tablet by ity of 00:00: mouth [place] 00 every 8 Medical (eight) Branch hours as needed (muscle spasms). sildenafil Yes [id number] 20mg Take 1 Univers (REVATIO) 4-06 tablet by ity o f 20 mg 00:00: mouth as [place] tablet 00 needed Medical (Take 1 Branch tablet by mouth as needed (Erectile Dsyfynctio n). Take 1 Take 30 mins prior to being intimate. Do not exceed 40mg in 24H. Do not mix with any other medication ). tiZANidine Yes [id number] 2mg Take 1 Univers 2 mg tablet 4-06 05 tablet by ity of 00:00: mouth [place] 00 every 8 Medical (eight) Branch hours as needed (muscle spasms). sildenafil 0 Yes [id number] 20mg Take 1 Univers (REVATIO) 4-06 tablet by ity o f 20 mg 00:00: mouth as [place] tablet 00 needed Medical (Take 1 Branch tablet by mouth as needed (Erectile Dsyfynctio n). Take 1 Take 30 mins prior to being intimate. Do not exceed 40mg in 24H. Do not mix with any other medication ). ALBUTEROL 2022-0 Yes 8.5g Inhale 8.5 Un cecile INHALE 3-24 g every 4 ity of 14:32: (four) [place] 56 hours. Medical Branch atomoxetine 0 Yes 40mg Take 40 mg Univers 40 mg 3-24 by mouth ity of capsule 14:32: daily. [place] [address] Medical Branch traZODone 2021-0 Yes 150mg Take 150 Uni vers 100 mg 3-24 mg by ity of tablet 14:32: mouth at [place] [address] bedtime. Medical Branch duloxetine 0 Yes 30mg Take 30 mg U nivers HCl 3-24 by mouth ity of (DULOXETINE 14:32: at [place] ORAL) 56 bedtime. Medical Branch ALBUTEROL 0 Yes 8.5g Inhale 8.5 Un cecile INHALE 3-24 g every 4 ity of 14:32: (four) [place] 56 hours. Medical Branch atomoxetine 2021-0 Yes 40mg Take 40 mg Univers 40 mg 3-24 by mouth ity of capsule 14:32: daily. [place] [address] Medical Branch traZODone 2021-0 Yes 150mg Take 150 Uni vers 100 mg 3-24 mg by ity of tablet 14:32: mouth at [place] [address] bedtime. Medical Branch duloxetine 0 Yes 30mg Take 30 mg U nivers HCl 3-24 by mouth ity of (DULOXETINE 14:32: at [place] ORAL) 56 bedtime. Medical Branch ALBUTEROL 0 Yes 8.5g Inhale 8.5 Un cecile INHALE 3-24 g every 4 ity of 14:32: (four) [place] 56 hours. Medical Branch atomoxetine 0 Yes 40mg Take 40 mg Univers 40 mg 3-24 by mouth ity of capsule 14:32: daily. [place] [address] Medical Branch traZODone 2021-0 Yes 150mg Take 150 Uni vers 100 mg 3-24 mg by ity of tablet 14:32: mouth at [place] [address] bedtime. Medical Branch duloxetine 0 Yes 30mg Take 30 mg U nivers HCl 3-24 by mouth ity of (DULOXETINE 14:32: at [place] ORAL) 56 bedtime. Medical Branch traMADoL 2021-0 Yes [id number] 1{tbl} Take 1 Univers 100 mg Tab 3-09 tablet by ity of 00:00: mouth 3 [place] 00 (three) Medical times Branch daily as needed for Pain (scale 7-10). traMADoL Yes [id number] 1{tbl} Take 1 Univers 100 mg Tab 3-09 tablet by ity of 00:00: mouth 3 [place] 00 (three) Medical times Branch daily as needed for Pain (scale 7-10). traMADoL Yes [id number] 1{tbl} Take 1 Univers 100 mg Tab 3-09 tablet by ity of 00:00: mouth 3 [place] 00 (three) Medical times Branch daily as needed for Pain (scale 7-10). nicotine Yes [id number] 1{patch Apply 1 Univers mg/24 hr 2-23 } Patch to ity of patch 00:00: area(s) [place] 00 every 24 Medical (twenty- Branch ur) hours. Apply 21mg patch daily x 6 weeks; then apply 14mf patch daily x 2 weeks; then apply 7mg patch daily x 2 weeks. Stop smoking on initiation of therapy nicotine Yes [id number] 1{patch Apply 1 Univers mg/24 hr 2-23 } Patch to ity of patch 00:00: area(s) [place] 00 daily. Medical Apply 21mg Branch patch daily x 6 weeks; then apply 14mf patch daily x 2 weeks; then apply 7mg patch daily x 2 weeks. Stop smoking on initiation of therapy nicotine Yes [id number] 1{patch Apply 1 Univers mg/24 hr 2-23 } Patch to ity of patch 00:00: area(s) [place] 00 every 24 Medical (twenty- Branch ur) hours. Apply 21mg patch daily x 6 weeks; then apply 14mf patch daily x 2 weeks; then apply 7mg patch daily x 2 weeks. Stop smoking on initiation of therapy nicotine Yes [id number] 1{patch Apply 1 Univers mg/24 hr 2-23 } Patch to ity of patch 00:00: area(s) [place] 00 every 24 Medical (twenty-fo Branch ur) hours. Apply 21mg patch daily x 6 weeks; then apply 14mf patch daily x 2 weeks; then apply 7mg patch daily x 2 weeks. Stop smoking on initiation of therapy nicotine Yes [id number] 1{patch Apply 1 Univers mg/24 hr 2-23 } Patch to ity of patch 00:00: area(s) [place] 00 daily. Medical Apply 21mg Branch patch daily x 6 weeks; then apply 14mf patch daily x 2 weeks; then apply 7mg patch daily x 2 weeks. Stop smoking on initiation of therapy nicotine Yes [id number] 1{patch Apply 1 Univers mg/24 hr 2-23 } Patch to ity of patch 00:00: area(s) [place] 00 every 24 Medical (twenty-fo Branch ur) hours. Apply 21mg patch daily x 6 weeks; then apply 14mf patch daily x 2 weeks; then apply 7mg patch daily x 2 weeks. Stop smoking on initiation of therapy nicotine Yes [id number] 1{patch Apply 1 Univers mg/24 hr 2-23 } Patch to ity of patch 00:00: area(s) [place] 00 every 24 Medical (twenty-fo Branch ur) hours. Apply 21mg patch daily x 6 weeks; then apply 14mf patch daily x 2 weeks; then apply 7mg patch daily x 2 weeks. Stop smoking on initiation of therapy nicotine Yes [id number] 1{patch Apply 1 Univers mg/24 hr 2-23 } Patch to ity of patch 00:00: area(s) [place] 00 daily. Medical Apply 21mg Branch patch daily x 6 weeks; then apply 14mf patch daily x 2 weeks; then apply 7mg patch daily x 2 weeks. Stop smoking on initiation of therapy nicotine Yes [id number] 1{patch Apply 1 Univers mg/24 hr 2-23 } Patch to ity of patch 00:00: area(s) [place] 00 every 24 Medical (twenty-fo Branch ur) hours. Apply 21mg patch daily x 6 weeks; then apply 14mf patch daily x 2 weeks; then apply 7mg patch daily x 2 weeks. Stop smoking on initiation of therapy clopidogreL 2021- Yes [id number] 75mg Take 1 Univers 75 mg 2-07 tablet by ity of tablet 00:00: mouth [place] 00 daily. Medical Branch clopidogreL Yes [id number] 75mg Take 1 Univers 75 mg 2-07 tablet by ity of tablet 00:00: mouth [place] 00 daily. Medical Branch clopidogreL Yes [id number] 75mg Take 1 Univers 75 mg 2-07 tablet by ity of tablet 00:00: mouth [place] 00 daily. Medical Branch atorvastati 2021-0 Yes [id number] 80mg Take 1 Univers n 80 mg 2-04 tablet ity of tablet 00:00: through [place] 00 enteral Medical tube at [place] bedtime. atorvastati 2021-0 Yes [id number] 80mg Take 1 Univers n 80 mg 2-04 tablet ity of tablet 00:00: through [place] 00 enteral Medical tube at [place] bedtime. atorvastati 0 Yes [id number] 80mg Take 1 Univers n 80 mg 2-04 tablet ity of tablet 00:00: through [place] 00 enteral Medical tube at [place] bedtime. risperiDONE Yes 1mg Take 1 mg U nivers 1 mg tablet 9-15 by mouth 3 it y of 00:00: (three) [place] 00 times Medical daily. Branch risperiDONE Yes 1mg Take 1 mg U nivers 1 mg tablet 9-15 by mouth 3 it y of 00:00: (three) [place] 00 times Medical daily. Branch risperiDONE Yes 1mg Take 1 mg U nivers 1 mg tablet 9-15 by mouth 3 it y of 00:00: (three) [place] 00 times Medical daily. Branch Flonase Flonase Yes Na Gomes 2 spray in Common 05-23 each Spirit 00:00: nostril - [facility] 00 [facility] Immunizations Ordered Filled Immunization Date Status Comments [facility] e Immunization Name Name SARS-COV-2 COVID-19 2021-05-30 Completed Unive rsity of MODERNA VACCINE 00:00:00 [facility] [place] SARS-COV-2 COVID-19 2021-05-30 Completed Unive rsity of MODERNA VACCINE 00:00:00 [facility] [place] SARS-COV-2 COVID-19 2021-05-30 Completed Unive rsity of MODERNA VACCINE 00:00:00 [facility] [place] SARS-COV-2 COVID-19 2021-03-18 Completed Unive rsity of MODERNA VACCINE 00:00:00 [facility] [place] SARS-COV-2 COVID-19 2021-03-18 Completed Unive rsity of MODERNA VACCINE 00:00:00 [facility] [place] SARS-COV-2 COVID-19 2021-03-18 Completed Unive rsity of MODERNA VACCINE 00:00:00 [facility] ical Branch SARS-COV-2 COVID-19 2021-02-04 Completed Unive rsity of MODERNA VACCINE 00:00:00 [facility] Branch SARS-COV-2 COVID-19 2021-02-04 Completed Unive rsity of MODERNA VACCINE 00:00:00 [facility] Branch SARS-COV-2 COVID-19 2021-02-04 Completed Unive rsity of MODERNA VACCINE 00:00:00 [facility] [place] Vital Signs Vital Name Observation Time Observation Value Comments Source Systolic blood 2022-02-19 16:05:00 144 mm[Hg] Univer sity of pressure [facility] Diastolic blood 2022-02-19 16:05:00 99 mm[Hg] Unive rsity of pressure [facility] Heart rate 2022-02-19 16:05:00 85 /min [facility] Body temperature 2022-02-19 16:05:00 36.5 Terri [facility] Respiratory rate 2022-02-19 16:05:00 18 /min [facility] Body weight 2022-02-19 16:05:00 82.101 kg [facility] BMI 2022-02-19 16:05:00 25.24 kg/m2 [facility] Oxygen saturation in 2022-02-19 16:05:00 99 /min [facility] blood by [facility] Pulse oximetry Branch Procedures Procedure Date / Time Performed Performing Clinician Sunny e XR HUMERUS 2 VW LEFT 2022-02-19 16:30:29 Marce Armendariz [facility] XR SHOULDER 2+ VW 2022-02-19 16:30:29 Marce Armendariz [facility] CONSENT/REFUSAL FOR 2022-02-19 16:00:18 [facility] Name Medical Branch TREATMENT [id number] 2020-10-30 00:00:00 GERRY [facility] [id number] 2020-01-28 00:00:00 [email or web address] [facility] [id number] 2020-01-28 00:00:00 [email or web address] [facility] [id number] 2020-01-28 00:00:00 [email or web address] [facility] [id number] 2020-01-28 00:00:00 [email or web address] [facility] [id number] 2020-01-28 00:00:00 [email or web address] [facility] Plan of Care Planned Activity Planned Date Details Comments Source Future Scheduled Test COLON CANCER SCREENING: [facility] COLONOSCOPY [code = Medicine COLON CANCER SCREENING: COLONOSCOPY] Future Scheduled Test MEDICARE AWV [code = [facility] MEDICARE AWV] Medicine Future Scheduled Test TETANUS SHOT (ADULT) [facility] [code = TETANUS SHOT Medicin e (ADULT)] Future Scheduled Test HEPATITIS C SCREENING [facility] [code = HEPATITIS C Medicine SCREENING] Future Scheduled Test HIV SCREENING [code = [facility] HIV SCREENING] Medicine Future Scheduled Test FLU VACCINE > 6 MONTHS [facility] [code = FLU VACCINE > 6 Medi cine MONTHS] Encounters Start End Encounter Admission Attending Care Care Encounter Source Date/Time Date/Time Type Type Clinicians Facility Department ID 2022-01-25 Outpatient [facility] [id number] [place] 11:56:41 [id number] [facility] 2022-01-19 [facility] [id number] [place] 03:16:47 [facility] [id number] [facility] 2022-01-18 Outpatient [facility] [id number] [place] 12:57:31 [id number] [facility] 2022-01-01 Outpatient EVERETT [facility] [id number] [place] 15:24:56 [facility] 2021-11-13 Outpatient [facility] [id number] [place] 15:22:56 [facility] 2021-11-12 Outpatient 3 [id number] ENC[facility] CVA ENCPL 10:42:58 1002 2021-11-12 Outpatient 3 [id number] [facility] REF [id number] ENC[facility] 10:40:46 0927 2021-11-11 Outpatient Gomes Lucy [facility] [id number] 2 Common 11:17:41 [id number] [facility] 2021-11-11 Outpatient Lucy Gomes [facility] [id number] 2 Common 11:00:18 [id number] [facility] 2021-11-11 Outpatient Lucy Gomes STLMLC STLC [id number] 2 Common 11:00:09 [id number] [facility] 2020-10-30 Inpatient [facility] [id number] [facility] 12:19:00 [id number] [facility] 2020-01-28 Inpatient Mio Frances [facility] [id number] [facility] 16:09:00 [id number] [facility] 2020-01-25 Inpatient XAVIER Gilbert Mio [facility] [id number].01 [id number] [facility] 16:41:00 [facility] 2022-03-25 2022-03-25 Outpatient R [facility] [id number] Univers 10:40:00 10:40:00 SOLE abby [facility] 2022-03-03 2022-03-03 Outpatient R [facility] [id number] Univers 16:00:00 16:00:00 SOLE morales [facility] 2022-02-19 2022-02-19 [id number] Univers 11:05:00 12:06:00 MARCE morales [facility] 2022-02-19 2022-02-19 [facility] [id number] Univers 11:05:00 12:06:00 Marce HANSEN [id number] ity of [place] [id number] [facility] [id number] [facility] 084 Branch 2022-02-19 2022-02-19 Orders Doctor GINA [id number] Univers 00:00:00 00:00:00 Only Unassigned, FERN [id number] ity of [facility] [id number] [facility] [id number] [facility] 009 Branch 2022-02-15 2022-02-15 Outpatient [id number] DISP DISP [id number] Dispatc 09:30:00 09:30:00 3 [facility] 2022-02-11 2022-02-[address] [facility] [id number] [facility] 00:00:00 00:00:00 Sole HANSEN [id number] [facility] PARAS [id number] Nichole norman [place]MI [id number] Ok dical NAL 044 [facility] 2022-02-09 2022-02-09 Outpatient [id number] DISP DISP [id number] Dispatc 04:40:00 04:40:00 3 [facility] 2022-02-09 2022-02-09 Outpatient Zackjosuekaren, DISP DISP [id number] 00:00:00 00:00:00 Brianda [id number] 2021-06-10 2021-06-10 Outpatient Zuniga_F [facility] [id number] [place] 09:20:00 09:20:00 [id number] [facility] 2021-06-03 2021-06-03 Outpatient A_Byrd [facility] [id number] 021 [place] 10:29:00 10:29:00 [facility] 2020-10-31 2020-10-31 Outpatient Lucio, HCACL LABO [id number] [facility] 00:22:00 00:22:00 Oladipo [address] [facility] 2020-06-20 2020-06-20 [facility] [id number] Common 10:36:00 10:36:[address] [place] [facility] [facility] 2020-05-23 2020-05-23 [facility] [id number] Common 16:20:00 16:20:[address] [facility] 2020-05-23 2020-05-23 [facility] [id number] Common 15:25:00 15:25:[address] [facility] 2020-01-28 2020-01-28 Outpatient DORIAN DotyNW REF [id number] [facility] 14:20:00 14:20:[id number] [facility] 2020-01-01 2020-01-01 [facility] 30 [id number] Common 16:10:00 16:10:[address] [facility] 2019-12-26 2019-12-26 [facility] 29 [id number] Common 08:44:00 08:44:[address] [facility] 2019-12-05 2019-12-05 [facility] 29 [id number] Common 15:07:00 15:07:[address] [facility] 2019-09-24 2019-09-24 [facility] [id number] Common 09:27:00 09:27:[address] [facility] 2019-09-06 2019-09-06 [facility] [id number] Common 12:00:00 12:00:[address] [facility] 2019-08-18 2019-08-18 [facility] 28 [id number] Common 17:55:00 17:55:[address] [facility] 2019-08-01 2019-08-01 [facility] 27 [id number] Common 09:00:00 09:00:[address] [facility] 2019-06-07 2019-06-07 [facility] [id number] Common 11:20:00 11:20:[address] [facility] 2019-01-04 2019-01-04 [facility] 24 [id number] Common 14:04:00 14:04:[address] [facility] 2018-11-23 2018-11-23 [facility] 24 [id number] Common 09:15:00 09:15:00 [facility] 2018-11-20 2018-11-20 [facility] 24 [id number] Common 10:13:00 10:13:[address] [facility] 2018-11-15 2018-11-15 [facility] 23 [id number] Common 15:15:00 15:15:[address] [facility] 2018-10-09 2018-10-09 [facility] 23 [id number] Common 10:19:00 10:19:[address] [facility] 2018-06-02 2018-06-02 [facility] 15 [id number] Common 16:46:00 16:46:[address] [facility] 2018-05-11 2018-05-11 [facility] 13 [id number] Common 09:45:00 09:45:[address] [facility] Results Test Description Test Time Test Comments Results Result Comments Source HOMOCYSTEINE PROFILE 2020-11-01 10:10:00 Test Item Value Reference Range Interpretation Comme nts HOMOCYSTEINE (test code = 15.3 umol/L 0.0-14.5 A Pe rformed At: HD [facility] HOMOCY) [address] [id number] So MD Ph:[phone] RAPID PLASMA [id number] 06:11:00 Test Item Value Reference Range Interpretation Comments RAPID PLASMA REAGIN Non Reactive Non Reactive Performe d At: HD (test code = RPR) [facility] [place], [place] [id number] jyoti So MD Ph:[phone] - CT HEAD/BRAIN W/O [id number] 14:36:00 [facility] : 1960 Sex: M Name: [place]TONIEL [place] : 1960 Age/S: 60 / M [id number] [address] [address] Unit #: [id number] Loc:[place] [address] Phys: Ximena Valdes MD Acct: [id number] Dis Date: Status: ADM IN PHONE #: [phone] Exam Date: 10/31/2020 1420 FAX #: Reason: CVA EXAMS: CPT: [id number] CT HEAD/BRAIN W/O CONT [id number] HISTORY: CVA. CT brain, unenhanced. Reformatted sagittal [...] M.D CC: Ximena Valdes MD; Karen PHAM [place] Technologist:Lela Brunner RT (R)(CT) CTDI: DLP: Trnscb Date/Time: 10/31/2020 (1436) t.SDR.RCM1 Orig Print D/T: S: 10/31/2020 (6338) PAGE 1 Signed ReportSED [id number] 10:34:00 Test Item Value Reference Range Interpretation Comments SED RATE (test code = SEDW) 7 mm/hr 0-15 SED RATE [id number] 10:33:00 Test Item Value Reference Range Interpretation Comments SED RATE WESTERGREN (test code = 7 mm/hr 0-15 N SEDW) [id number] 07:00:00 Test Item Value Reference Range Interpretation Comments GLYCOSYLATED HEMOGLOBIN (HA1C) 5.5 % A1C 0.0-5.7 N (test code = GLYHGB) ESTIMATED AVERAGE GLUCOSE (test 111 MG/DLest code = EAG) BASIC METABOLIC [id number] 06:55:00 Test Item Value Reference Range Interpretation [...] WITHIN 1 HR AND FREEZE SERUM PROMPTLY.HOMOCYSTEINE [id number] 06:55:00 Test Item Value Reference Range Interpretation Comments HOMOCYSTEINE (test code = HOMOCY) mcMOL/L <9 Comment: FASTING IN AM PATIENT SHOULD BE FASTING OVERNIGHT 10-12 HRS. TAKE BLOOD TO LABASAP. MUST SEPAPATE SERUM FROM CELLS WITHIN 1 HR AND FREEZE SERUM PROMPTLY.CBC W/AUTO [id number] 06:41:00 Test Item Value Reference Range Interpretation [...] NO DIFF/SCN CRITERIA = MDIFF) GLUCOSE BEDSIDE [id number] 23:18:00 Test Item Value Reference Range Interpretation Comments GLUCOSE BEDSIDE TESTING (test code = 94 mg/dL 70-110 N GLUBED) COVID 19 INHOUSE [id number] 15:04:00 Test Item Value Reference Range Interpretation Comments COVID 19 INHOUSE AG NEGATIVE Negative Per manu facturer, (test code = negative result s should [id number]) be treated aspr esumptive and, if inconsi [...] with COVID-19. UA RFLX MICR CULT IF [id number] 14:02:00 Test Item Value Reference Range Interpretation [...] UACULT) Indication for culture: Dysuria/Frequency- CT ANGIO [id number] 13:00:00 [facility] : 1960 Sex: M Name: OTONIEL HENDERSON [facility] : 1960 Age/S: 60 / M [id number] [address] [address] [address] Unit #: [id number] Loc:[place] [address] Phys: Anjum Rivera MD Acct: [id number] Dis Date: Status: PRE ER PHONE #: [phone] Exam Date: 10/30/2020 1238 FAX #: Reason: slurred speech EXAMS: CPT: [id number] CT ANGIO NECK [id number]: - CT ANGIO HEAD, - CT ANGIO [...] 1 Signed Report (CONTINUED) Name: OTONIEL HENDERSON [facility] : 1960 Age/S: 60 / M [address] [address] [place] [address] Unit #: [id number] Loc: [place] [address] Phys: Anjum Rivera MD Acct: [id number] Dis Date: Status: PRE ER PHONE #: [phone] Date: 10/30/2020 1235 FAX #: Reason: slurred speech EXAMS: CPT: [id number] ANGIO NECK 67[address] <Continued> stenosis. Findings were personally discussed with [...] (1300) [email or web address].[email or web address] Orig Print D/T: S: 10/30/2020 (1303) PAGE 2 Signed Report- CT ANGIO [id number] 13:00:00 [facility] : 1960 Sex: M Name: OTONIEL HENDERSON [facility] : 1960 Age/S: 60 / M [id number] [address] [address] [address] Unit #: [id number] Loc:[place] [address] Phys: Anjum Rivera MD Acct: [id number] Dis Date: Status: PRE ER PHONE #: [phone] Exam Date: 10/30/2020 1233 FAX #: Reason: slurred speech EXAMS: CPT: [id number] CT ANGIO HEAD [id number]: - CT ANGIO HEAD, - CT ANGIO [...] HENDERSON : 1960 Age/S: 60 / M [id number] [address] [address] Unit #: [id number] Loc: [place] [address] Phys: Anjum Rivera MD Acct: [id number] Dis Date: Status: PRE ER PHONE #: [phone] Date: 10/30/2020 1233 FAX #: Reason: slurred speech EXAMS: CPT: [id number] ANGIO HEAD 695[address] <Continued> stenosis. Findings were personally discussed with [...] 10/30/2020 (1303) PAGE 2 Signed ReportBASIC METABOLIC [id number] 12:50:00 Test Item Value Reference Range Interpretation [...] 8.9 MG/DL 8.5-10.1 N Completed by Nursing: [id number] 12:50:00 Test Item Value Reference Range Interpretation [...] suman yby method. Completed by Nursing: NOPROTHROMBIN [id number] 12:47:00 Test Item Value Reference Range Interpretation Comments PT PATIENT (test code = PTP) 10.5 SECONDS 9.3-12.9 N INTERNATIONAL NORMAL RATIO 0.94 INR Unit 0.8-1.2 N (test code = INR) THROMBOPLASTIN TIME [id number] 12:47:00 Test Item Value Reference Range Interpretation Comments THROMBOPLASTIN TIME PARTIAL 27.9 SECONDS 26-35 N (test code = PTT) BASIC METABOLIC [id number] 12:43:00 Test Item Value Reference Range Interpretation [...] 8.9 MG/DL 8.5-10.1 N Completed by Nursing: [id number] 12:43:00 Test Item Value Reference Range Interpretation Comments TROPONIN-I (test code = TROPI) NG/ML 0.000-0.045 Completed by Nursing: NO- CT HEAD/BRAIN W/O [id number] 12:40:00 [facility] : 1960 Sex: M Name: OTONIEL HENDERSON [facility] : 1960 Age/S: 60 / M [id number] [address] [address] [address] Unit #: [id number] Loc:[place] [address] Phys: Anjum Rivera MD Acct: [id number] Dis Date: Status: PRE ER PHONE #: [phone] Exam Date: 10/30/2020 1231 FAX #: Reason: Code Stroke EXAMS: CPT: [id number] CT HEAD/BRAIN W/O CONT [id number]: - CT HEAD/BRAIN W/O CONT. LOCATION: S17. [...] HENDERSON : 1960 Age/S: 60 / M [address] [address] [address] Unit #: [id number] Loc: [place] [address] Phys: Anjum Rivera MD Acct: [id number] Dis Date: Status: PRE ER PHONE #: [phone] Exam Date: 10/30/2020 1231 FAX #: Reason: Code Stroke EXAMS: CPT: [id number] CT HEAD/BRAIN W/O CONT 90299 <Continued> at 1240 Reported and signed by: Manjinder Antonio M.D. CC: Anjum Rivera MD Technologist:Yohan Love, RT(R)(CT); Kr CTDI: DLP: Trnscb Date/Time: 10/30/2020 (1240) t.SDR.ANS4 Orig Print D/T: S: 10/30/2020 (7863) PAGE 2 Signed ReportCBC W/O [id number] 12:35:00 Test Item Value Reference Range Interpretation [...] 10.70 fL 7.0-9.6 H MPV) GLUCOSE BEDSIDE [id number] 12:29:00 Test Item Value Reference Range Interpretation Comments GLUCOSE BEDSIDE TESTING (test code 140 mg/dL 70-110 H = GLUBED) BASIC METABOLIC [id number] 06:50:00 Test Item Value Reference Range Interpretation [...] mg/dL 8.8-10.2 N = CA) CBC W/AUTO [id number] 06:40:00 Test Item Value Reference Range Interpretation [...] BA#) 0.07 x10 3/uL 0.0-0.20 N VANCOMYCIN [id number] 13:34:00 Test Item Value Reference Range Interpretation Comments VANCOMYCIN TROUGH (test code = 14.4 mcg/ML 10.0-20.0 N VANCT) Spec Comments: RN PLS DRAW VANCO 30MIN BEFORE DOSE DUE ON 01/30 BASIC METABOLIC [id number] 04:08:00 Test Item Value Reference Range Interpretation [...] code 8.8 mg/dL 8.8-10.2 N = CA) [id number] 04:08:00 Test Item Value Reference Range Interpretation Comments MAGNESIUM (test code = MAG) 1.7 mg/dL 1.4-2.6 N CBC W/AUTO [id number] 03:56:00 Test Item Value Reference Range Interpretation [...] 0.09 x10 3/uL 0.0-0.20 N BASIC METABOLIC [id number] 21:22:00 Test Item Value Reference Range Interpretation [...] mg/dL 8.8-10.2 N = CA) RENAL FUNCTION [id number] 21:22:00 Test Item Value Reference Range Interpretation Comments ALBUMIN (test code = ALB) 3.4 G/DL 3.5-5.0 L PHOSPHOROUS (test code = PHOS) 2.0 mg/dL 2.7-4.5 L LIVER FUNCTION [id number] 21:22:00 Test Item Value Reference Range Interpretation [...] = 63 U/L 45-120 N ALKP) LACTIC [id number] 21:18:00 Test Item Value Reference Range Interpretation Comments LACTIC ACID (test code = LACT) 9.4 mg/dL 4.5-18.0 N PROTHROMBIN [id number] 21:12:00 Test Item Value Reference Range Interpretation [...] 2.5-3.5recurren t systemic emboli sm. THROMBOPLASTIN TIME [id number] 21:12:00 Test Item Value Reference Range Interpretation Comments THROMBOPLASTIN TIME 28.6 SECONDS 26.0-35.9 N INTERPRE TATIVE PARTIAL (test code = DATA: erapeutic PTT) range: Unfractionated heparin:47 - 71 seconds Argatroban:1.5 to 3 times the basel ine PTT PROTHROMBIN [id number] 21:09:00 Test Item Value Reference Range Interpretation [...] 2.5-3.5recurren t systemic emboli sm. THROMBOPLASTIN TIME [id number] 21:09:00 Test Item Value Reference Range Interpretation Comments THROMBOPLASTIN TIME PARTIAL (test SECONDS 26.0-35.9 code = PTT) CBC W/AUTO [id number] 21:08:00 Test Item Value Reference Range Interpretation [...] 0.05 x10 3/uL 0.0-0.20 N CBC W/MANUAL [id number] 05:21:00 Test Item Value Reference Range Interpretation [...] code NORMAL NORMAL = PLTMORPH) RENAL FUNCTION [id number] 05:20:00 Test Item Value Reference Range Interpretation [...] 2.5 mg/dL 2.7-4.5 L code = PHOS) [id number] 05:20:00 Test Item Value Reference Range Interpretation Comments MAGNESIUM (test code = MAG) 1.8 mg/dL 1.4-2.6 N CBC W/MANUAL [id number] 04:48:00 Test Item Value Reference Range Interpretation [...] code = LYMPH) % 20.5-45.5 CBC W/MANUAL [id number] 04:48:00 Test Item Value Reference Range Interpretation [...] (test code = LYMPH) % 20.5-45.5 SURGICAL [id number] 12:52:00 RUN DATE: 01/29/20 [facility] - LAB PAGE 1 RUN TIME: 1252 Specimen Inquiry RUN USER: INTERFACE PATIENT: OTONIEL HENDERSON LOC: P.7S POD C U #: [id number] AGE/SX: 59/M ROOM: [facility] RE01/25/20REG DR: Cristopher Doty MD : [birth year] BED: 1 DIS: STATUS: ADM IN TLOC: SPEC #: [id number] RECD: 01/28/20 STATUS: NELSONJacky REQ #: [id number] SIMON: 01/28/[address] [facility] [address]: Cristopher Doty MD ENTERED: 01/28/20 SP TYPE: SURG OTHR DR: Roxanna Primary or Family Physician Mio Gilbert MD No,DocORDERED: PATHGM3, PATHGM5/2, PATH SPEC, H E STAIN HISTOLOGY: TISSUE ID BLK PCS PARISH LEV / PROCEDURE DISPOSITION ____ ___ ___ ___ ___ COLON SEG NTUMR A 18 1 TISSUES: A. 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 Signed SIGNATURE ON FILE Nita Ashford 01/29/20 1252 END OF REPORT BASIC METABOLIC [id number] 08:29:00 Test Item Value Reference Range Interpretation [...] code 9.2 mg/dL 8.8-10.2 N = CA) [id number] 08:29:00 Test Item Value Reference Range Interpretation Comments MAGNESIUM (test code = MAG) 1.3 mg/dL 1.4-2.6 L CBC W/AUTO [id number] 08:04:00 Test Item Value Reference Range Interpretation [...] x10 3/uL 0.0-0.20 N Novel Coronavirus 2018 [id number] 14:20:00 Test Item Value Reference Range Interpretation Comments Novel Coronavirus NEGATIVE Positive r esults are 2019 nCoV (test indicative o f the presence code = COVID19) lvCOLO-FfF-3 RNA, clinical correlation wit h patient historyand [...] for the identification of SARS-CoV-2 RNA usingthe [employer] M2000 Sy stem under the FDA Emergen cy UseAuthorizatio n. The testing is perf ormed by annatrabryan rudd in the procedures for the [employer] M2000 molecular diagnostic SARS-CoV-2 assa y in vitro. NEGATIVE Value reported toFirst Name: SAVITA Last Name:[place] RESULTS READ BACK AND VERIFIEDbyP.LAB.RS, on 01/26/20, @ 1934.- XR ABDOMEN [id number] 14:18:00Patient Name: OTONIEL HENDERSON Unit No: [id number] EXAMS: CPT CODE: [id number] XR ABDOMEN 1V 81447 Abdomen one view supine 01/28/2020 CLINICAL INDICATION: [...] Printed Date/Time: 01/28/2020 (1421) Name: OTONIEL HENDERSON [facility] Phys: José Antonio Zamora MD [address] : 1960 Age: 59 Sex: Steffi Brewer, [place] [address] [id number] Loc: P.0733 1 Exam Date: 01/28/2020 Status: ADM IN PH: FAX: PAGE 1 Signed ReportCOMPREHENSIVE METABOLIC [id number] 07:39:00 Test Item Value Reference Range Interpretation [...] 45-120 N PHOSPHATASE (test code = ALKP) [id number] 07:39:00 Test Item Value Reference Range Interpretation Comments MAGNESIUM (test code = MAG) 1.4 mg/dL 1.4-2.6 N CBC W/AUTO [id number] 07:12:00 Test Item Value Reference Range Interpretation [...] = BA#) 0.10 x10 3/uL 0.0-0.20 N [id number] 15:08:00 Test Item Value Reference Range Interpretation Comments LITHIUM (test 0.5 mmol/L 0.6-1.2 L code = LITH) Detection Limit = 0.1 <0.1 indicate s None DetectedPerform ed At: HD [facility] [address] [id number] Kyle L MD Ph:[phone] [id number] 15:08:00 Test Item Value Reference Range Interpretation Comments LITHIUM (test 0.5 mmol/L 0.6-1.2 L code = LITH) Detection Limit = 0.1 <0.1 indicate s None DetectedPerform ed At: HD [facility] [address] [id number] Kyle L MD Ph:[phone] Novel Coronavirus 2019 [id number] 07:11:00 Test Item Value Reference Range Interpretation [...] PHOSPHATASE (test code = ALKP) CBC W/AUTO [id number] 04:21:00 Test Item Value Reference Range Interpretation [...] 3/uL 0.0-0.20 N - CT ABD PELVIS [id number] 09:58:00Patient Name: OTONIEL HENDERSON Unit No: [id number] EXAMS: CPT CODE: [id number] CT ABD PELVIS W/CONT 96076 CT abdomen and pelvis with IV contrast. [...] renal cyst. Additional findings as above. Name: [place],[facility] Phys: VARSHA. - Norbert William MD [address] : 1960 Age: 59 Sex: M [place] [id number] Loc: P.0723 1 Exam Date: 01/26/2020 Status: ADM IN PH: FAX: PAGE 1 Signed Report (CONTINUED) Patient Name: OTONIEL HENDERSON Unit No: [id number] EXAMS: CPT CODE: [id number] CT ABD PELVIS W/CONT 35558 <Continued> at 0958 Reported and signed by: OTONIEL ROSSI M.D. CC: Cristopher Doty MD; Norbert William MD Technologist: ANTONIO Martin(Jeannine)(CT) CTDI: 11.68 DLP: 602 Trscr Dt/Tm: 01/26/2020 (0958) by:[email or web address] Printed Date/Time: 01/26/2020 (1001)[facility]: VARSHA. - Norbert William MD [address] : 1960 Age: 59 Sex: M [facility] [place] [address] Loc: P.0723 1 Exam Date: 01/26/2020 Status: ADM IN PH: FAX: PAGE 2 Signed ReportCOMPREHENSIVE METABOLIC [id number] 05:50:00 Test Item Value Reference Range Interpretation [...] PHOSPHATASE (test code = ALKP) CBC W/AUTO [id number] 04:55:00 Test Item Value Reference Range Interpretation [...] 0.15 x10 3/uL 0.0-0.20 N COMPREHENSIVE METABOLIC [id number] 18:44:00 Test Item Value Reference Range Interpretation [...] N PHOSPHATASE (test code = ALKP) PROTHROMBIN [id number] 18:32:00 Test Item Value Reference Range Interpretation [...] 2.5-3.5recurren t systemic emboli sm. CBC W/AUTO [id number] 18:26:00 Test Item Value Reference Range Interpretation [...]
[2022-03-02 09:28] LABS: Absolute Lymphocytes (CBC) 1.3 K/uL (0.7-4.9); Hematocrit 37.6 % (39.6-49.0); Lymphocytes % 16.9 % (15.3-44.8); RBC Red Blood Cell Count 4.32 M/uL (4.33-5.43)
[2022-03-02] MEDS ORDERED: NA CHLORIDE 0.9% 1,000 ML ONE (09:35)
[2022-03-02 09:43] LABS: Albumin 3.4 g/dL (3.4-5.0); Bilirubin Total 0.3 mg/dL (0.2-1.0); Potassium 3.7 mmol/L (3.5-5.1); Protein, Total 6.5 g/dL (6.4-8.2)
--- NOTE | 2022-03-02 11:04 | RAD REPORT ---
EXAM DESCRIPTION: CT - Abdomen Pelvis W Contrast - 03/02/2022 10:08 am CLINICAL HISTORY: cellulitismidline infraumbilical abdomen COMPARISON: Abdomen Pelvis W Contrast dated 04/08/2020; Abdomen Pelvis W Contrast dated 03/27/2020 TECHNIQUE: Biphasic, helical CT imaging of the abdomen and pelvis was performed following 100 ml non -ionic IV contrast. No oral contrast administered. All CT scans are performed using dose optimization technique as appropriate and may include automated exposure control or mA/KV adjustment according to patient size. FINDINGS: No suspicious findings in the lung bases. The liver, spleen, and pancreas show no suspicious findings. Gallbladder and biliary tree are also wi thout suspicious finding. Symmetric renal function is seen with no hydronephrosis or suspicious renal mass. No pyelonephritis o r acute parenchymal process. Small bilateral nonobstructing calyx calculi present. Approximately 3.5 centimeter cyst is present in the lower pole of the left kidney. This is similar or perhaps slightly increased from prior imaging when direct imaged image measurement performed. This is not regarded as significant. No adrenal abnormalities. Partially filled urinary bladder shows no suspicious finding. No prostate gland or seminal vesicle abnormality. Numerous pelvic floor phleboliths are present. No dilated bowel loops or bowel wall thickening. Duodenal diverticulum is present. Rectosigmoid regio n anastomosis shows no suspicious findings. There is diverticulosis in the sigmoid colon mild in degr ee. Right mid abdomen small bowel anastomosis shows no acute finding. No free air, free fluid or pneu matosis. No mass or bulky lymphadenopathy seen. The patient has a small 10 mm diameter fat only umbi lical hernia. Small bilateral fat filled inguinal hernias are present. The hernia is are similar to p rior imaging. In the omental fat approximately 5 cm superior to the umbilicus there are focal soft tissue mass is e vident largest at 2.5 cm in size. These are centrally hypodense with thin enhancing rims. These are n ew or enlarged from prior imaging. There is mild congestion or edema of the adjacent fat. These are p ositioned anteriorly to the transverse colon which shows no focal abnormality itself. No suspicious bony findings. History indicates skin wound infraumbilical midline abdomen. On CT imaging there is no skin thickenin g in the infraumbilical abdominal wall. Underlying fat shows no congestion or edema. The deeper abdom inal wall is unremarkable. IMPRESSION: No CT abnormalities are seen at the site of skin wound infraumbilical midline abdomen. The patient does have new areas of soft tissue low-density nodularity in the omental fat approximatel y 5 cm superior to the umbilicus. There is mild stranding and edema in the adjacent fat. These omental area findings are new or progressive from prior imaging. An infection/inflammatory proc ess is possible. There is no malignant history known to elevate concern for omental neoplastic implan ts. These omental foci are in proximity to the transverse colon but there is no evidence for a transv erse colon acute or chronic abnormality.
[2022-03-02] MEDS ORDERED: METRONIDAZOLE 500mg IVPB 500 MG/100 ML BAG IV ONE (13:11)
[2022-03-02] MEDS ORDERED: levoFLOXacin 500 MG TAB ONE (13:12)
--- NOTE | 2022-03-02 13:34 | EDPHYS ---
Physician Documentation [facility] Name: Gregory Dumont Age: 61 yrs Sex: Male : 1960 Arrival Date: 03/02/2022 Time: 08:28 Bed 17 Private MD: TANIA Physician Bjorn Nuno HPI: 03/02 09:06 This 61 yrs old Male presents to ER via Ambulatory with complaints of Wound Recheck. pm1 09:06 The affected area is on the suprapubic area. Previous treatment: Treatment type: The pm1 patient's original treatment included Abdominal surgery 2 years ago. The patient has not experienced similar symptoms in the past. The patient has not recently seen a physician. 61-year-old patient presenting to the ER with complaints of wound evaluation. Patient had abdominal surgery 2 years ago and and the wound completely healed. Patient reports onset of redness and discharge, that is clear, to the area last night. Patient without abdominal pain, fever, nausea vomiting diarrhea. Historical: - Allergies: 08:38 No Known Allergies; ww - PMHx: 08:38 adhd; Anxiety; Bipolar disorder; Hypertensive disorder; strokes x 3; ww - PSHx: 08:38 knee replacements; colon resection; ww - Immunization history:: Adult Immunizations up to date. - Social history:: Smoking status: Patient reports the use of cigarette tobacco products, Reported history of juuling and/or vaping. ROS: 09:06 Constitutional: Negative for fever, chills, and weight loss, Cardiovascular: Negative pm1 for chest pain, palpitations, and edema, Respiratory: Negative for shortness of breath, cough, wheezing, and pleuritic chest pain, Abdomen/GI: Negative for abdominal pain, nausea, vomiting, diarrhea, and constipation, MS/Extremity: Negative for injury and deformity. 09:06 Neuro: Negative for headache, weakness, numbness, tingling, and seizure. 09:06 Skin: Positive for rash, of the suprapubic area. 09:06 All other systems are negative. Exam: 09:06 Constitutional: This is a well developed, well nourished patient who is awake, alert, pm1 and in no acute distress. Head/Face: Normocephalic, atraumatic. 09:06 Eyes: Exam is negative for acute changes, Extraocular movements: no acute changes. 09:06 ENT: Exam is negative for acute changes, Mouth: no acute changes, Lips: normal, moist, Oral mucosa: normal, pink and intact, moist. 09:06 Cardiovascular: Exam negative for acute changes, Rate: normal, Rhythm: regular, Pulses: no pulse deficits are appreciated, Heart sounds: normal. 09:06 Respiratory: Exam negative for acute changes, respiratory distress, shortness of breath. 09:06 Abdomen/GI: Palpation: abdomen is soft and non-tender, in all quadrants. 09:06 Skin: Appearance: normal except for affected area, abscess, not appreciated, cellulitis, that is minimal, on the Proximal to suprapubic area. 09:06 Neuro: Orientation: no acute changes, per family, Mentation: no acute changes, per family. Vital Signs: 08:36 BP 90 / 69; Pulse 75; Resp 18; Temp 97.9; Pulse Ox 97% ; Weight 86.18 kg; Height 5 ft. ww 11 in. (180.34 cm); Pain 0/10; 10:34 BP 130 / 77; Pulse 77; Resp 16; Pulse Ox 99% on R/A; vg1 11:30 BP 149 / 83; Pulse 56; Resp 15; Pulse Ox 97% on R/A; vg1 12:15 BP 148 / 88; Pulse 62; Resp 16; Pulse Ox 100% on R/A; vg1 08:36 Body Mass Index 26.50 (86.18 kg, 180.34 cm) ww MDM: 08:49 Patient medically screened. [facility] 13:31 Data reviewed: vital signs. Data interpreted: Pulse oximetry: on room air is 100 %. pm1 Interpretation: normal. Counseling: I had a detailed discussion with the patient and/or guardian regarding: the historical points, exam findings, and any diagnostic results supporting the discharge/admit diagnosis, lab results, radiology results, the need for outpatient follow up, to return to the emergency department if symptoms worsen or persist or if there are any questions or concerns that arise at home. 13:31 ED course: Patient without any abdominal pain. Abdominal CT findings are not located at pm1 the area of patient concern and complaint. Patient with cellulitis/candidiasis present to proximal to suprapubic area. Discussed case with Dr. Nuno and will discharge patient home with quinolone and Flagyl to cover for abdominal findings and quinolone along with topical antibiotics will provide coverage for cellulitis. 03/02 09:02 Order name: CBC with Diff; Complete Time: 09:39 pm1 03/02 09:02 Order name: CMP; Complete Time: 09:55 pm1 03/02 09:02 Order name: Lipase; Complete Time: 09:55 pm1 03/02 09:02 Order name: CT Abd/Pelvis - IV Contrast Only; Complete Time: 11:09 pm1 03/02 09:02 Order name: IV Saline Lock; Complete Time: 09:23 pm1 03/02 09:02 Order name: Labs collected and sent; Complete Time: 09:23 pm1 Administered Medications: 09:34 Drug: NS 0.9% 1000 ml Route: IV; Rate: 1 bolus; Site: right forearm; vg1 11:57 Follow up: IV Status: Completed infusion; IV Intake: 1000ml vg1 13:10 Drug: LevaQUIN (levofloxacin) 500 mg Route: PO; vg1 14:20 Follow up: Response: No adverse reaction jl7 13:12 Drug: Flagyl (metroNIDAZOLE) 500 mg Volume: 100 ml; Route: IVPB; Rate: 200 ml/hr; vg1 Infused Over: 30 mins; Site: right wrist; 14:00 Follow up: Response: No adverse reaction; IV Status: Completed infusion jl7 Disposition Summary: 03/02/22 13:34 Discharge Ordered Location: Home pm1 Problem: new pm1 Symptoms: have improved pm1 Condition: Stable pm1 Diagnosis - Cellulitis of abdominal wall pm1 Followup: pm1 - With: Emergency Department - When: As needed - Reason: Worsening of condition Followup: pm1 - With: Tyron Grimm MD - When: 2 - 3 days - Reason: Recheck today's complaints, Continuance of care, Re-evaluation by your physician Discharge Instructions: - Discharge Summary Sheet pm1 - Cellulitis, Adult pm1 Forms: - Medication Reconciliation Form pm1 - Thank You Letter pm1 - Antibiotic Education pm1 - Prescription Opioid Use pm1 Prescriptions: - Flagyl 500 mg Oral Tablet - take 1 tablet by ORAL route every 8 hours for 10 days; 30 tablet; Refills: 0, pm1 Product Selection Permitted - levofloxacin 500 mg Oral Tablet - take 1 tablet by ORAL route once daily for 10 days; 10 tablet; Refills: 0, pm1 Product Selection Permitted - mupirocin 2 % Topical ointment - apply 1 application by TOPICAL route 3 times per day; 1 tube; Refills: 0, pm1 Product Selection Permitted Signatures: Dispatcher [employer] Bjorn Page MD MD cha Marinas, Patrick, [employer] pm1 Anne Almendarez RN RN vg1 Liza Faye RN RN ww Sherman Brown RN jl7
--- NOTE | 2022-03-02 13:34 | ER ---
Nurse's Notes [facility] Name: Gregory Dumont Age: 61 yrs Sex: Male : 1960 Arrival Date: 03/02/2022 Time: 08:28 Bed 17 [facility] MD: Diagnosis: Cellulitis of abdominal wall Presentation: 03/02 08:36 Chief complaint: Patient states: Had a colon surgery a few years ago and has a wound ww that is now opened again and draining. They noticed the draining last night. Coronavirus screen: Vaccine status: Patient reports receiving the 2nd dose of the covid vaccine. Client denies travel out of the [place] in the last 14 days. Ebola Screen: Patient denies travel to an Ebola-affected area in the 21 days before illness onset. Initial Sepsis Screen: Does the patient meet any 2 criteria? No. Patient's initial sepsis screen is negative. Does the patient have a suspected source of infection? No. Patient's initial sepsis screen is negative. Risk Assessment: Do you want to hurt yourself or someone else? Patient reports no desire to harm self or others. Onset of symptoms is unknown. 08:36 Method Of Arrival: Ambulatory ww 08:36 Acuity: MARION 3 ww Triage Assessment: 08:38 General: Appears in no apparent distress. Behavior is calm. Pain: Denies pain. Neuro: ww Level of Consciousness is awake, alert, obeys commands, Moves all extremities. Gait is steady. Respiratory: Airway is patent Respiratory effort is even, unlabored, Respiratory pattern is regular, symmetrical. Historical: - Allergies: 08:38 No Known Allergies; ww - PMHx: 08:38 adhd; Anxiety; Bipolar disorder; Hypertensive disorder; strokes x 3; ww - PSHx: 08:38 knee replacements; colon resection; ww - Immunization history:: Adult Immunizations up to date. - Social history:: Smoking status: Patient reports the use of cigarette tobacco products, Reported history of juuling and/or vaping. Screenin:23 Abuse screen: Denies threats or abuse. Nutritional screening: No deficits noted. vg1 Tuberculosis screening: No symptoms or risk factors identified. Fall Risk No fall in past 12 months (0 pts). No secondary diagnosis (0 pts). IV access (20 points). Ambulatory Aid- None/Bed Rest/Nurse Assist (0 pts). Gait- Normal/Bed Rest/Wheelchair (0 pts) Mental Status- Oriented to own ability (0 pts). Total Mcdaniel Fall Scale indicates No Risk (0-24 pts). Assessment: 09:23 General: Appears in no apparent distress. comfortable, Behavior is calm, cooperative. vg1 Pain: Complains of pain in suprapubic area Pain currently is 0 out of 10 on a pain scale. Pain began 1 day ago. Neuro: Zimmerman Agitation-Sedation Scale (RASS): 0 - Alert and Calm Level of Consciousness is awake, alert, obeys commands, Oriented to person, place. Cardiovascular: Patient's skin is warm and dry. Respiratory: Airway is patent Respiratory effort is even, unlabored. GI: Abdomen is flat, pt appears to have half dollar size redness under the ABD fold pt denies pain or tenderness; no drainage noted; site appears to have an odor. Patient currently denies nausea, vomiting. : No signs and/or symptoms were reported regarding the genitourinary system. EENT: No signs and/or symptoms were reported regarding the EENT system. Derm: Skin is red, Wound noted suprapubic area. Musculoskeletal: Circulation, motion, and sensation intact. 10:34 Reassessment: Patient appears in no apparent distress at this time. No changes from vg1 previously documented assessment. Patient and/or family updated on plan of care and expected duration. Pain level reassessed. Patient is alert, oriented x 3, equal unlabored respirations, skin warm/dry/pink. 11:53 Reassessment: Patient appears in no apparent distress at this time. No changes from vg1 previously documented assessment. Patient and/or family updated on plan of care and expected duration. Pain level reassessed. Patient is alert, oriented x 3, equal unlabored respirations, skin warm/dry/pink. 13:03 Reassessment: Patient appears in no apparent distress at this time. Patient and/or vg1 family updated on plan of care and expected duration. Pain level reassessed. Patient is alert, oriented x 3, equal unlabored respirations, skin warm/dry/pink. Patient denies pain at this time. 13:46 Reassessment: Pt will be discharged once medications are done infusing. ld1 Vital Signs: 08:36 BP 90 / 69; Pulse 75; Resp 18; Temp 97.9; Pulse Ox 97% ; Weight 86.18 kg; Height 5 ft. ww 11 in. (180.34 cm); Pain 0/10; 10:34 BP 130 / 77; Pulse 77; Resp 16; Pulse Ox 99% on R/A; vg1 11:30 BP 149 / 83; Pulse 56; Resp 15; Pulse Ox 97% on R/A; vg1 12:15 BP 148 / 88; Pulse 62; Resp 16; Pulse Ox 100% on R/A; vg1 08:36 Body Mass Index 26.50 (86.18 kg, 180.34 cm) ED Course: 08:28 Patient arrived in ED. mr 08:37 Triage completed. ww 08:38 Arm band placed on right wrist. ww 08:48 Himanshu Yates NP is PHCP. pm1 08:48 Bjorn Nuno MD is Attending Physician. pm1 08:57 Anne Almendarez, RN is Primary Nurse. vg1 09:23 Patient has correct armband on for positive identification. Bed in low position. Call vg1 light in reach. Side rails up X 1. Adult w/ patient. 09:23 Inserted saline lock: 20 gauge in right forearm, using aseptic technique. ,using vg1 aseptic technique. 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 10:10 CT Abd/Pelvis - IV Contrast Only In Process Unspecified. EDMS 13:31 Tyron Grimm MD is Referral Physician. pm1 14:19 No provider procedures requiring assistance completed. IV discontinued, intact, jl7 bleeding controlled, No redness/swelling at site. Pressure dressing applied. Administered Medications: 09:34 Drug: NS 0.9% 1000 ml Route: IV; Rate: 1 bolus; Site: right forearm; vg1 11:57 Follow up: IV Status: Completed infusion; IV Intake: 1000ml vg1 13:10 Drug: LevaQUIN (levofloxacin) 500 mg Route: PO; vg1 14:20 Follow up: Response: No adverse reaction jl7 13:12 Drug: Flagyl (metroNIDAZOLE) 500 mg Volume: 100 ml; Route: IVPB; Rate: 200 ml/hr; vg1 Infused Over: 30 mins; Site: right wrist; 14:00 Follow up: Response: No adverse reaction; IV Status: Completed infusion jl7 Medication: 09:23 VIS not applicable for this client. vg1 Intake: 11:57 IV: 1000ml; Total: 1000ml. vg1 Outcome: 13:34 Discharge ordered by MD. pm1 14:19 Discharged to home with family. [email or web address] 14:19 Condition: stable 14:19 Discharge instructions given to patient, Instructed on discharge instructions, follow up and referral plans. medication usage, Demonstrated understanding of instructions, follow-up care, medications, Prescriptions given X 3. 14:20 Patient left the ED. jl7 Signatures: Dispatcher [employer] EDElaine Molina MilanHimanshu, VEGETABLE PACKER VEGETABLE PACKER pm1 Sherman Brown, RN RN jl7 Anne Almendarez, RN RN vg1 Zamzam Yeung, RN RN ld1 Liza Faye, RN RN ww
[2022-03-02 14:26] VITALS: TEMP 97.9
[2022-03-02 14:32] VITALS: BP 148/88; O2SAT 100
== END 2022-03-02 14:20 | disposition home or self-care (01) ==
LOC: ER 08:24
DX: L03.311 Cellulitis of abdominal wall (principal); I10 Essential (primary) hypertension; Z72.0 Tobacco use
CPT/HCPCS: 85025; 36415; 83690; 80053; 74177; Q9967; J7030; J3490; 96361; 96365; 99284

== ENCOUNTER 2022-03-07 12:37 | Emergency (ER) | payer OTHER ==
--- OUTSIDE RECORDS SUMMARY | 2022-03-07 12:41 | XMS REPORT | Continuity of Care Document ---
:1960 Author Organization [facility] t Address [address] [place] [address] Care Team Providers Name Role Phone Laura CALDWELL Primary Care Physician EVERETT Attending Clinician Unavailable [id number] Attending Clinician Unavailable Saray Gomes Attending Clinician Unavailable Steffi Gilbert Attending Clinician Unavailable LAURA Attending Clinician Unavailable [email or web address] Attending Clinician Unavailable Laura CALDWELL Attending Clinician Fito ARMENDARIZ Attending Clinician Unavailable Fito Armendariz DO Attending Clinician Doctor Unassigned, Name Attending Clinician Unavailable Gustavo Attending Clinician [phone] Zuniga_F Attending Clinician Unavailable A_Byrd Attending Clinician Unavailable Lucio Attending Clinician Unavailable Soren Attending Clinician Unavailable [id number] Admitting Clinician Unavailable Physician, Primary or Family Admitting Clinician UnavailSteffi Guo Admitting Clinician Unavailable [email or web address] Admitting Clinician Unavailable Fito ARMENDARIZ Admitting Clinician Unavailable Eric_F Admitting Clinician Unavailable A_Byrd Admitting Clinician Unavailable Payers Payer Name Policy Type Policy Number Effective Date Expiration Date S jorge [facility] COMMUNITY [id number] 2021 2022 STARPLUS OON EXCEPT 00:00:00 00:00:00 [facility] [place] MEDICAID [id number] 2021 00:00:00 [facility]LLMED/[facility] DUAL [id number] 2021 COMP HMO D SNP 00:00:00 [facility] STAR PLUS [id number] 2021 00:00:00 [employer] - [id number] 2021 UNITED HEALTHCARE 00:00:00 (MEDICARE REPLACEMENT/ADVANTA GE - HMO) [facility] - AARP - [id number] 2021 MEDICARE SOLUTIONS 00:00:00 - MEDICARE COMPLETE (MEDICARE REPLACEMENT HMO) [place]IC[place] B-[place]: [id number] [employer] [facility] [id number] 2020-10-17 COMMUNITY PLAN - 00:00:00 [place] STAR PLUS (MEDICAID HMO) Problems Condition Condition Condition Status Onset Resolution Last Treating Co mments Source Name Details Category Date Date Treatment Clinician Date Stress Stress Disease Active Univers reaction reaction 5-18 ity of with with 00:00: [place] psychomoto psychomoto 00 Me dical r r Branch agitation agitation Anger Anger Disease Active Univers reaction reaction 5-18 ity of 00:00: [place] 00 Medical Branch Aphasia as Aphasia as Disease Active U nivers late late 5-18 [place] of effect of [place] stroke 00 [place] Cellulitis Cellulitis Disease Active U nivers , , 5-18 [place]y of abdominal abdominal 00:[place] wall wall 00 Medical [place] ADHD ADHD Disease Active Univers (attention (attention [...] ROSALEE (acute ROSALEE (acute Disease Active U nivers kidney kidney 3-24 ity of injury) injury) 00:00: [place] 00 Medical Branch Orthostati Orthostati Disease Active U nivers c c 3-23 ity of hypotensio hypotensio [...] annual 2-08 ity of wellness wellness 00:00: [place] visit, visit, 00 Medical initial initial Branch [...] cular 9-24 ity of disease disease 00:00: [place] Medical Branch Chest pain Chest pain Disease Active U nivers 9-23 ity of 00:00: [place] Medical Branch Acute Acute Disease Active Univers right right 9-23 ity of arterial arterial 00:00: [place] ischemic ischemic 00 Medica l stroke, stroke, Branch middle middle cerebral cerebral artery artery (MCA) (MCA) Tobacco Tobacco Disease Active Univers abuse abuse 4-16 ity of 00:00: [place] Medical Branch Status Status Disease Active 2015-10 Univers post total post total 0-24 it y of left knee left [place] 00[place] replac[place] replacemen 00 Me dical t t Branch Bilateral Bilateral Disease Active Uni vers chronic chronic 9-20 ity of knee pain knee pain [place] Cerebral Cerebral Disease Active Overview: Un cecile thrombosis thrombosis 3-17 Formattin ity of 00:00: g of this note Medical might be Branch different from the original. 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 [facility] Seasonal Seasonal Diagnosis Active Com mon allergic allergic Spirit rhinitis, rhinitis, - CH I unspecifie unspecifie d trigger d [facility] Folliculit Folliculit Problem Active C ommon is is Spirit [facility] Arthritis Arthritis Problem Active Com mon [facility] Bipolar 1 Bipolar 1 Problem Active Com mon disorder disorder [facility] Mixed Mixed Problem Active Common hyperlipid hyperlipid Sp kyle emia emia [facility] Pure Pure Problem Active Common hyperchole hyperchole Sp kyle sterolemia sterolemia - [facility] Primary Primary Problem Active 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 - CHI involving involving St multiple [facility] joints joints [facility] Center Smoker Smoker Problem Active Common [facility] Essential Essential Problem Active Com mon hypertensi hypertensi Sp kyle on on - CHI [facility] Other Other Problem Active Common chronic chronic Spirit pain pain - CHI [facility] Irritabili Irritabili Problem Active C ommon ty and ty and Spirit anger anger - [facility] Elevated Elevated Problem Active Commo n blood blood Spirit pressure pressure - CHI reading reading St without without [facility] diagnosis diagnosis [facility] of Center hypertensi hypertensi on on Encounter Encounter Problem Active Com mon for for Spirit tobacco tobacco - CHI use use St cessation cessation [facility] counseling counseling [facility] Mild Mild Problem Active Common memory memory Spirit disturbanc disturbanc - CHI e e [facility] Paresthesi Paresthesi Problem Active C ommon a of skin a of skin Spir it - CHI [facility] Otalgia of Otalgia of Problem Active C ommon left ear left ear Spirit - [facility] Dementia Dementia Problem Active Commo n in other in other Spirit diseases diseases - CHI classified classified St elsewhere elsewhere Pixley s without without Medical behavioral behavioral Ce nter disturbanc disturbanc e e Impacted Impacted Problem Active Commo n cerumen of cerumen of Sp kyle left ear left ear - [facility] Alzheimer' Alzheimer' Problem Active C ommon 's 's Spirit disease, disease, - CHI unspecifie unspecifie d [facility] 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Commo n dysfunctio dysfunctio Sp kyle n, n, - CHI unspecifie unspecifie [facility] erectile d erectile Greta kes dysfunctio dysfunctio Me dical n type n type Center Hypoglycem Hypoglycem Problem Active C ommon ia ia Spirit - [facility] Simple Simple Problem Active Common chronic chronic Spirit bronchitis bronchitis - [facility] Nicotine Nicotine Problem Active Commo n dependence dependence Sp kyle , , - CHI cigarettes cigarettes St , , Lu uncomplica uncomplica [facility] Allergies, Adverse Reactions, Alerts Allergy Allergy Status Severity Reaction(s) Onset Inactive Treating Comm ents Source Name Type Date Date Clinician No Known DA Active U [facility] Allergie 10-30 Clear s 00:00: Patel 00 [facility] No Known DA Active U [facility] Allergie 10-30 Clear s 00:00: Pat[place] 00 [facility] No Known DA Active U 2020-0 [facility] Allergie 4-10 [place] [facility] 00:[facility]: [facility] 00 [facility] No Known DA Active U 2020-0 [facility] Allergie 4-10 [place] 00:00: [facility] 00 are [facility] NO KNOWN Drug Active Univers ALLERGIE Class ity of S [facility] Social History Social Habit Start Date Stop Date Quantity Comments Source History of tobacco Cigar Smoker [facility] ersity of use [facility] History SDOH University o f Alcohol Frequency [facility] edical History SDOH University o f Alcohol Std Drinks [facility] History [facility] University o f Alcohol Binge [facility] [place] [facility] Medicine Alcohol intake 2022-03-03 2022-03-03 0 /d [place] of 00:00:00 00:00:00 [facility] Education 2021-03-21 2021-03-21 14 [facility] 00:00:00 00:00:00 [facility] Cigarettes smoked 2016-06-11 2016-06-11 Univers ity of current (pack per 00:00:00 00:00:00 [facility] ) - Reported Branch Cigarette 2016-06-11 2016-06-11 University of pack-years 00:00:00 00:00:00 [facility] Tobacco use and 2016-06-11 2016-06-11 Never used Universit y of exposure 00:00:00 00:00:00 [facility] Alcohol Comment 2016-06-11 2016-06-11 sober for 20 Univers ity of 00:00:00 00:00:00 years [facility] Smoking Status Start Date Stop Date Source Unknown if ever smoked [facility] Current some day smoker 2016-06-11 00:00:00 [facility] Medications Ordered Filled Start Stop Current Ordering Indication Dosage Frequency Signature Comments Components Source Medication Medication Date Date Medication? Clinician (SIG) Name Name HYDROcodone 2021- No 1{tbl} 1 tablet, Univers -acetaminop 5-03 21-06 Oral, ity of hen (NORCO 17:15: 16:09 ONCE, 1 Joseph as 5) 5-325 mg 00 :00 dose, On Medi diogenes tablet 1 Tue02/19/22 Branc h tablet at 1215, ALEK DICLOFENAC Yes [id number] TAKE 1 Univers 75 mg EC 4-25 05 TABLET BY ity of tablet 00:00: MOUTH [place] 00 TWICE Medical DAILY WITH Branch MEALS DICLOFENAC 2021-0 Yes [id number] TAKE 1 Univers 75 mg EC 4-25 05 TABLET BY ity of tablet 00:00: MOUTH [place] 00 TWICE Medical DAILY WITH Branch MEALS DICLOFENAC 2021-0 Yes [id number] TAKE 1 Univers 75 mg EC 4-25 05 TABLET BY ity of tablet 00:00: MOUTH [place] 00 TWICE Medical DAILY WITH Branch MEALS DICLOFENAC 2021-0 Yes [id number] TAKE 1 Univers 75 mg EC 4-25 05 TABLET BY ity of tablet 00:00: MOUTH [place] 00 TWICE Medical DAILY WITH Branch MEALS GABAPENTIN 2021-0 Yes [id number] TAKE 1 Univers 400 mg 4-11 CAPSULE BY ity of capsule 00:00: MOUTH [place] 00 THREE Medical TIMES Branch DAILY GABAPENTIN 2021-0 Yes [id number] TAKE 1 Univers 400 mg 4-11 CAPSULE BY ity of capsule 00:00: MOUTH [place] 00 THREE Medical TIMES Branch DAILY GABAPENTIN 2021-0 Yes [id number] TAKE 1 Univers 400 mg 4-11 CAPSULE BY ity of capsule 00:00: MOUTH [place] 00 THREE Medical TIMES Branch DAILY GABAPENTIN 2021-0 Yes [id number] TAKE 1 Univers 400 mg 4-11 CAPSULE BY ity of capsule 00:00: MOUTH [place] 00 THREE Medical TIMES Branch DAILY tiZANidine 2021-0 Yes [id number] 2mg Take 1 Univers 2 mg tablet 4-06 05 tablet by ity of 00:00: mouth [place] 00 every 8 Medical (eight) Branch hours as needed (muscle spasms). sildenafil 2021-0 Yes [id number] 20mg Take 1 Univers (REVATIO) 4-06 tablet by ity o f 20 mg 00:00: mouth as [place] tablet 00 needed Medical (Take 1 Branch tablet by mouth as needed (Erectile Dsyfynctio n). Take 1 Take 30 mins prior to being intimate. Do not exceed 40mg in 24H. Do not mix with any other medication ). tiZANidine 2021-0 Yes [id number] 2mg Take 1 Univers 2 mg tablet 4-06 05 tablet by ity of 00:00: mouth [place] 00 every 8 Medical (eight) Branch hours as needed (muscle spasms). sildenafil 2021-0 Yes [id number] 20mg Take 1 Univers (REVATIO) 4-06 tablet by ity o f 20 mg 00:00: mouth as [place] tablet 00 needed Medical (Take 1 Branch tablet by mouth as needed (Erectile Dsyfynctio n). Take 1 Take 30 mins prior to being intimate. Do not exceed 40mg in 24H. Do not mix with any other medication ). tiZANidine 2021-0 Yes [id number] 2mg Take 1 Univers 2 mg tablet 4- 05 tablet by ity of 00:00: mouth [place] 00 every 8 Medical (eight) Branch hours as needed (muscle spasms). sildenafil 2021-0 Yes [id number] 20mg Take 1 Univers (REVATIO) 4-06 tablet by ity o f 20 mg 00:00: mouth as [place] tablet 00 needed Medical (Take 1 Branch tablet by mouth as needed (Erectile Dsyfynctio n). Take 1 Take 30 mins prior to being intimate. Do not exceed 40mg in 24H. Do not mix with any other medication ). tiZANidine 2021-0 Yes [id number] 2mg Take 1 Univers 2 mg tablet 4- 05 tablet by ity of 00:00: mouth [place] 00 every 8 Medical (eight) Branch hours as needed (muscle spasms). sildenafil 2021-0 Yes [id number] 20mg Take 1 Univers (REVATIO) 4-06 tablet [...] 14:32: daily. [place] 56 Medical Branch traZODone 2021-0 Yes 150mg Take 150 Uni vers 100 mg 3-24 mg by ity of tablet 14:32: mouth at [place] [address] bedtime. Medical Branch duloxetine 2021-0 Yes 30mg Take 30 mg U nivers HCl 3-24 by mouth ity of (DULOXETINE 14:32: at [place] ORAL) 56 bedtime. Medical Branch ALBUTEROL 2021-0 Yes 8.5g Inhale 8.5 Un cecile INHALE 3-24 g every 4 ity of 14:32: (four) [place] 56 hours. Medical Branch atomoxetine 2021-0 Yes 40mg Take 40 mg Univers 40 mg 3-24 by mouth ity of capsule 14:32: daily. [place] [address] Medical Branch traZODone 2021-0 Yes 150mg Take 150 Uni vers 100 mg 3-24 mg by ity of tablet 14:32: mouth at [place] [address] bedtime. Medical Branch duloxetine 0 Yes 30mg Take 30 mg U nivers HCl 3-24 by mouth ity of (DULOXETINE 14:32: at [place] ORAL) 56 bedtime. Medical Branch ALBUTEROL 2021-0 Yes 8.5g Inhale 8.5 Un cecile INHALE 3-24 g every 4 ity of 14:32: (four) [place] 56 hours. Medical Branch atomoxetine 0 Yes 40mg Take 40 mg Univers 40 mg 3-24 by mouth ity of capsule 14:32: daily. [place] [address] Medical Branch traZODone 2021-0 Yes 150mg Take 150 Uni vers 100 mg 3-24 mg by ity of tablet 14:32: mouth at [place] [address] bedtime. Medical Branch duloxetine 0 Yes 30mg Take 30 mg U nivers HCl 3-24 by mouth ity of (DULOXETINE 14:32: at [place] ORAL) 56 bedtime. Medical Branch ALBUTEROL 0 Yes 8.5g Inhale 8.5 Un cecile INHALE 3-24 g every 4 ity of 14:32: (four) [place] 56 hours. Medical Branch atomoxetine 0 Yes 40mg Take 40 mg Univers 40 mg 3-24 by mouth ity of capsule 14:32: daily. [place] [address] Medical Branch traZODone 2021-0 Yes 150mg Take 150 Uni vers 100 mg 3-24 mg by ity of tablet 14:32: mouth at [place] [address] bedtime. Medical Branch duloxetine 2021-0 Yes 30mg Take 30 mg U nivers HCl 3-24 by mouth ity of (DULOXETINE 14:32: at [place] ORAL) 56 bedtime. Medical Branch traMADoL 2021-0 Yes [id number] 1{tbl} Take 1 Univers 100 mg Tab 3-09 tablet by ity of 00:00: mouth 3 [place] 00 (three) Medical times Branch daily as needed for Pain (scale 7-10). traMADoL Yes [id number] 1{tbl} Take 1 Univers 100 mg Tab 3-09 tablet by ity of 00:00: mouth 3 [place] 00 (three) Medical times Branch daily as needed for Pain (scale 7-10). traMADoL Yes [id number] 1{tbl} Take 1 Univers 100 mg Tab 3-09 tablet by ity of 00:00: mouth 3 [place] 00 (three) Medical times Branch daily as needed for Pain (scale 7-10). traMADoL Yes [id number] 1{tbl} Take 1 Univers 100 mg Tab 3-09 tablet by ity of 00:00: mouth 3 00 (three) Medical times Branch daily as needed for Pain (scale 7-10). nicotine Yes [id number] 1{patch Apply 1 Univers mg/24 hr 2-23 } Patch to ity of patch 00:00: area(s) [place] 00 every 24 Medical (twenty-fo Branch ur) hours. Apply 21mg patch daily x 6 weeks; then apply 14mf patch daily x 2 weeks; then apply 7mg patch daily x 2 weeks. Stop smoking on initiation of therapy nicotine Yes [id number] 1{patch Apply 1 Univers mg/24 hr 2-23 } Patch to ity of patch 00:00: area(s) [place] 00 daily. Medical Apply 21mg Branch patch daily x 6 weeks; then apply 14mf patch daily x 2 weeks; then apply 7mg patch daily x 2 weeks. Stop smoking on initiation of therapy nicotine Yes [id number] 1{patch Apply 1 Univers mg/24 hr 2-23 } Patch to ity of patch 00:00: area(s) [place] 00 every 24 Medical (twenty-fo Branch ur) hours. Apply 21mg patch daily x 6 weeks; then apply 14mf patch daily x 2 weeks; then apply 7mg patch daily x 2 weeks. Stop smoking on initiation of therapy nicotine Yes [id number] 1{patch Apply 1 Univers mg/24 hr 2-23 } Patch to ity of patch 00:00: area(s) [place] 00 every 24 Medical (twenty-fo Branch ur) hours. Apply 21mg patch daily x 6 weeks; then apply 14mf patch daily x 2 weeks; then apply 7mg patch daily x 2 weeks. Stop smoking on initiation of therapy nicotine Yes [id number] 1{patch Apply 1 Univers mg/24 hr 2-23 } Patch to ity of patch 00:00: area(s) [place] 00 daily. Medical Apply 21mg Branch patch daily x 6 weeks; then apply 14mf patch daily x 2 weeks; then apply 7mg patch daily x 2 weeks. Stop smoking on initiation of therapy nicotine Yes [id number] 1{patch Apply 1 Univers mg/24 hr 2-23 } Patch to ity of patch 00:00: area(s) [place] 00 every 24 Medical (twenty-fo Branch ur) hours. Apply 21mg patch daily x 6 weeks; then apply 14mf patch daily x 2 weeks; then apply 7mg patch daily x 2 weeks. Stop smoking on initiation of therapy nicotine Yes [id number] 1{patch Apply 1 Univers mg/24 hr 2-23 } Patch to ity of patch 00:00: area(s) [place] 00 every 24 Medical (twenty-fo Branch ur) hours. Apply 21mg patch daily x 6 weeks; then apply 14mf patch daily x 2 weeks; then apply 7mg patch daily x 2 weeks. Stop smoking on initiation of therapy nicotine Yes [id number] 1{patch Apply 1 Univers mg/24 hr 2-23 } Patch to ity of patch 00:00: area(s) [place] 00 daily. Medical Apply 21mg Branch patch daily x 6 weeks; then apply 14mf patch daily x 2 weeks; then apply 7mg patch daily x 2 weeks. Stop smoking on initiation of therapy nicotine Yes [id number] 1{patch Apply 1 Univers mg/24 hr 2-23 } Patch to ity of patch 00:00: area(s) [place] 00 every 24 Medical (twenty-fo Branch ur) hours. Apply 21mg patch daily x 6 weeks; then apply 14mf patch daily x 2 weeks; then apply 7mg patch daily x 2 weeks. Stop smoking on initiation of therapy nicotine Yes [id number] 1{patch Apply 1 Univers mg/24 hr 2-23 } Patch to ity of patch 00:00: area(s) [place] 00 every 24 Medical (twenty-fo Branch ur) hours. Apply 21mg patch daily x 6 weeks; then apply 14mf patch daily x 2 weeks; then apply 7mg patch daily x 2 weeks. Stop smoking on initiation of therapy nicotine 21 2021-0 Yes [id number] 1{patch Apply 1 Univers mg/24 hr 2-23 } Patch to ity of patch 00:00: area(s) [place] 00 daily. Medical Apply 21mg Branch patch daily x 6 weeks; then apply 14mf patch daily x 2 weeks; then apply 7mg patch daily x 2 weeks. Stop smoking on initiation of therapy nicotine 14 2021-0 Yes [id number] 1{patch Apply 1 Univers mg/24 hr 2-23 } Patch to ity of patch 00:00: area(s) [place] 00 every 24 Medical ([facility] Branch ur) hours. Apply 21mg patch daily x 6 weeks; then apply 14mf patch daily x 2 weeks; then apply 7mg patch daily x 2 weeks. Stop smoking on initiation of therapy clopidogreL 2021-0 Yes [id number] 75mg Take 1 Univers 75 mg 2-07 tablet by ity of tablet 00:00: mouth [place] 00 daily. [facility] Branch clopidogreL 2021-0 Yes [id number] 75mg Take 1 Univers 75 mg 2-07 tablet by ity of tablet 00:00: mouth [place] 00 daily. [facility] Branch clopidogreL 2021-0 Yes [id number] 75mg Take 1 Univers 75 mg 2-07 tablet by ity of tablet 00:00: mouth [place] 00 daily. [facility] Branch clopidogreL 2021-0 Yes [id number] 75mg Take 1 Univers 75 mg 2-07 tablet by ity of tablet 00:00: mouth [place] 00 daily. [facility] Branch atorvastati 2021-0 Yes [id number] 80mg Take 1 Univers n 80 mg 2-04 tablet ity of tablet 00:00: through [place] 00 enteral Medical tube at [place] bedtime. atorvastati 2021-0 Yes [id number] 80mg Take 1 Univers n 80 mg 2-04 tablet ity of tablet 00:00: through [place] 00 enteral Medical tube at [place] bedtime. atorvastati 2021-0 Yes [id number] 80mg Take 1 Univers n 80 mg 2-04 tablet ity of tablet 00:00: through [place] 00 enteral Medical tube at [place] bedtime. atorvastati 0 Yes [id number] 80mg Take 1 Univers n 80 mg 2-04 tablet ity of tablet 00:00: through [place] 00 enteral Medical tube at [place] bedtime. risperiDONE Yes 1mg Take 1 mg [...] mouth 3 it y of 00:00: (three) [place] 00 times Medical daily. Branch Flonase Flonase Yes Na Gomes 2 spray in Common 05-23 each Spirit 00:00: nostril - [facility]I 00 [facility] Immunizations Ordered Filled Immunization Date Status Comments [facility] e Immunization Name Name SARS-COV-2 COVID-19 2021-05-30 Completed Unive rsity of MODERNA VACCINE 00:00:00 [facility] SARS-COV-2 COVID-19 2021-05-30 Completed Unive rsity of MODERNA VACCINE 00:00:00 [facility] SARS-COV-2 COVID-19 2021-05-30 Completed Unive rsity of MODERNA VACCINE 00:00:00 [facility] SARS-COV-2 COVID-19 2021-05-30 Completed Unive rsity of MODERNA VACCINE 00:00:00 [facility] SARS-COV-2 COVID-19 2021-03-18 Completed Unive rsity of MODERNA VACCINE 00:00:00 [facility] SARS-COV-2 COVID-19 2021-03-18 Completed Unive rsity of MODERNA VACCINE 00:00:00 [facility] SARS-COV-2 COVID-19 2021-03-18 Completed Unive rsity of MODERNA VACCINE 00:00:00 [facility] SARS-COV-2 COVID-19 2021-03-18 Completed Unive rsity of MODERNA VACCINE 00:00:00 [facility] SARS-COV-2 COVID-19 2021-02-04 Completed Unive rsity of MODERNA VACCINE 00:00:00 [facility] SARS-COV-2 COVID-19 2021-02-04 Completed Unive rsity of MODERNA VACCINE 00:00:00 [facility] SARS-COV-2 COVID-19 2021-02-04 Completed Unive rsity of MODERNA VACCINE 00:00:00 [facility] SARS-COV-2 COVID-19 2021-02-04 Completed Unive rsity of MODERNA VACCINE 00:00:00 [facility] Vital Signs Vital Name Observation Time Observation Value Comments Source Systolic blood 2022-02-19 16:05:00 144 mm[Hg] Univer sity of pressure [facility] Diastolic blood 2022-02-19 16:05:00 99 mm[Hg] Unive rsity of pressure [facility] Heart rate 2022-02-19 16:05:00 85 /min [facility] Body temperature 2022-02-19 16:05:00 36.5 [facility] Respiratory rate 2022-02-19 16:05:00 18 /min [facility] acute hospital Body weight 2022-02-19 16:05:00 82.101 kg [facility] BMI 2022-02-19 16:05:00 25.24 kg/m2 [facility] Oxygen saturation in 2022-02-19 16:05:00 99 /min [facility] blood by [facility] Pulse oximetry Branch Procedures Procedure Date / Time Performed Performing Clinician Sour e XR HUMERUS 2 VW LEFT 2022-02-19 16:30:29 Marce Armendariz [facility] XR SHOULDER 2+ VW 2022-02-19 16:30:29 Marce Armendariz [facility] CONSENT/REFUSAL FOR 2022-02-19 16:00:18 Doctor Unassigned, No Un [facility] DIAGNOSIS AND Name [facility] TREATMENT [id number] 2020-10-30 00:00:00 SPANI [facility] [place] [id number] 2020-01-28 00:00:00 [email or web address] [facility] [id number] 2020-01-28 00:00:00 [email or web address] [facility] [id number] 2020-01-28 00:00:00 [email or web address] [facility] [id number] 2020-01-28 00:00:00 [email or web address] [facility] [id number] 2020-01-28 00:00:00 [email or web address] [facility] Plan of Care Planned Activity Planned Date Details Comments Source Future Scheduled Test COLON CANCER SCREENING: [facility] COLONOSCOPY [code = Medicine COLON CANCER SCREENING: COLONOSCOPY] Future Scheduled Test MEDICARE AWV [code = [facility] MEDICARE AWV] Medicine Future Scheduled Test TETANUS SHOT (ADULT) [facility] [code = TETANUS SHOT Medicin e (ADULT)] Future Scheduled Test HEPATITIS C SCREENING [facility] [code = HEPATITIS C Medicine SCREENING] Future Scheduled Test HIV SCREENING [code = [facility] HIV SCREENING] Medicine Future Scheduled Test FLU VACCINE > 6 MONTHS [facility] [code = FLU VACCINE > 6 Medi cine MONTHS] Encounters Start End Encounter Admission Attending Care Care Encounter Source Date/Time Date/Time Type Type Clinicians Facility Department ID 2022-01-25 Outpatient [facility] [id number] [place] 11:56:41 [id number] [facility] 2022-01-19 Outpatient [place] [facility] [id number] [place] 03:16:47 [facility] [id number] [place] [address] 2022-01-18 Outpatient [facility] [id number] [place] 12:57:31 [id number] [facility] 2022-01-01 Outpatient [place] [facility] [id number] [place] 15:24:56 [facility] 2021-11-13 Outpatient [facility] [id number] [place] 15:22:56 Health 2021-11-12 Outpatient 3 [id number] ENCPL CVA ENCPL 10:42:58 1002 2021-11-12 Outpatient 3 [id number] ENCPL REF ENCPL 10:40:46 0927 2021-11-11 Outpatient Lucy Gomes STLMLC STLMLC [id number] Common 11:17:41 54288 [facility] 2021-11-11 Outpatient Gomes, Na STLMLC STLC [id number] 2 Common 11:00:18 54702 [facility] 2021-11-11 Outpatient Gomes, Na STLMLC STLC [id number] 2 Common 11:00:09 31815 [facility] 2020-10-30 Inpatient HCAPM REGINALDO [id number] [facility] 12:19:00 56023 [facility] 2020-01-28 Inpatient Mio Frances [facility] 46 [facility] 16:09:00 [id number] [facility] 2020-01-25 Inpatient XAVIER Gilbert Mio [facility] MEDI.[id number]- [id number] [facility] 16:41:00 [facility] 2022-03-25 2022-03-25 Outpatient R LAURA [facility] [id number] Univers 10:40:00 10:40:00 [facility] 2022-03-05 2022-03-05 Outpatient [id number] DISP DISP [id number] Dispatc 03:55:00 03:55:00 3 [id number] [facility] 2022-03-04 2022-03-04 [facility] [id number] Univers 00:00:00 00:00:00 Sloe HANSEN 350.1.13.10 i kiah [facility] 4.2.7.2.686 Nichole GALLEGOS [id number] Ut dical [address] 2022-03-03 2022-03-03 Outpatient R LAURA [facility] [id number] Univers 16:00:00 16:00:00 SOLE morales [facility] 2022-02-19 2022-02-19 Emergency X KALA RUST ERT [id number] Univers 11:05:00 12:06:00 MARCE morales [facility] 2022-02-19 2022-02-19 [facility] 1.2.840.114 [id number] Univers 11:05:00 12:06:00 Marce HANSEN 350.1.13.10 ity of [place] [id number] [facility] [address] 2022-02-19 2022-02-19 Orders Doctor GINA 1.2.840.114 [id number] Univers 00:00:00 00:00:00 Only Unassigned, FERN 350.1.13.10 ity of [place] [facility] 4.2.7.2.686 Joseph as [id number] [facility] [address] 2022-02-15 2022-02-15 Outpatient [id number] DISP DISP 618 485- Dispatc 09:30:00 09:30:00 3 72360 h Health 2022-02-11 2022-02-11 Telephone [facility] 1.2.840.114 [id number] [facility] 00:00:00 00:00:00 Sole HANSEN 350.1.13.10 i ty of [place].[address] [place] [address] [facility] [id number] Ut dical [facility] 044 [facility] 2022-02-09 2022-02-09 Outpatient [id number] DISP DISP 61- Dispatc 04:40:00 04:40:00 3 [id number] h Health 2022-02-09 2022-02-09 Outpatient Gustavo, DISP DISP a40 [id number]-o 00:00:00 00:00:00 Brianda [id number]-11ec-a [id number] 2021-06-10 2021-06-10 Outpatient Zuniga_F [facility] [id number]- [id number] [place] 09:20:00 09:20:00 [facility] 2021-06-03 2021-06-03 Outpatient A_Byrd [facility] [id number] [place] 10:29:00 10:29:00 [facility] 2020-10-31 2020-10-31 Outpatient FELIX Valdes [id number] [facility] 00:22:00 00:22:00 Oladipo 18177 [facility] 2020-06-20 2020-06-20 [facility] [id number] Common 10:36:00 10:36:[address] [facility] 2020-05-23 2020-05-23 [facility] 31 [id number] Common 16:20:00 16:20:[address] [facility] 2020-05-23 2020-05-23 [facility] 31 [id number] Common 15:25:00 15:25:[address] [facility] 2020-01-28 2020-01-28 Outpatient Doty, [facility] RE[facility] [id number] [facility] 14:20:00 14:20:00 Cristopher [id number] [facility] 2020-01-01 2020-01-01 Out[facility] 30 [id number] Common 16:10:00 16:10:[address] [facility] 2019-12-26 2019-12-26 [facility] 29 [id number] Common 08:44:00 08:44:[address] [facility] 2019-12-05 2019-12-05 [facility] 29 [id number] Common 15:07:00 15:07:[address] [facility] 2019-09-24 2019-09-24 [facility] 28 [id number] Common 09:27:00 09:27:[address] [facility] 2019-09-06 2019-09-06 [facility] 28 [id number] Common 12:00:00 12:00:[address] [facility] 2019-08-18 2019-08-18 Out[facility] 28 [id number] Common 17:55:00 17:55:[address] [facility] 2019-08-01 2019-08-01 [facility] 27 [id number] Common 09:00:00 09:00:[address] [facility] 2019-06-07 2019-06-07 Out[facility] 26 [id number] Common 11:20:00 11:20:[address] [facility] 2019-01-04 2019-01-04 [facility] 24 [id number] Common 14:04:00 14:04:[address] [facility] 2018-11-23 2018-11-23 [facility] 24 [id number] Common 09:15:00 09:15:00 [facility] 2018-11-20 2018-11-20 [facility] 24 [id number] Common 10:13:00 10:13:[address] [facility] 2018-11-15 2018-11-15 [facility] 23 [id number] Common 15:15:00 15:15:[address] [facility] 2018-10-09 2018-10-09 [facility] 23 [id number] Common 10:19:00 10:19:[address] [facility] 2018-06-02 2018-06-02 [facility] 15 [id number] Common 16:46:00 16:46:[address] [facility] 2018-05-11 2018-05-11 Out[facility] 13 [id number] Common 09:45:00 09:45:[address] [facility] Results Test Description Test Time Test Comments Results Result Comments Source HOMOCYSTEINE PROFILE 2020-11-01 10:10:00 Test Item Value Reference Range Interpretation Comme nts HOMOCYSTEINE (test code = 15.3 umol/L 0.0-14.5 A Pe rformed At: HD [facility] HOMOCY) [id number] [place], [place] [id number] Jacky So MD Ph:[phone] RAPID PLASMA [id number] 06:11:00 Test Item Value Reference Range Interpretation Comments RAPID PLASMA REAGIN Non Reactive Non Reactive Performe d At: HD (test code = RPR) [facility] [id number] [place] [id number] jyoti Jacky So MD Ph:[phone] - CT HEAD/BRAIN W/O [id number] 14:36:00 [facility] : 1960 Sex: M Name: OTONIEL HENDERSON [facility] : 1960 Age/S: 60 / M [address] Unit #: [id number] Loc:[place] [address] Phys: Ximena Valdes MD Acct: [id number] Dis Date: Status: ADM IN PHONE #: [phone] Exam Date: 10/31/2020 1420 FAX #: Reason: CVA EXAMS: CPT: [id number] CT HEAD/BRAIN W/O CONT [id number] HISTORY: CVA. CT brain, unenhanced. Reformatted sagittal [...] RT (R)(CT) CTDI: DLP: Trnscb Date/Time: 10/31/2020 (143) t.[email or web address] Orig Print D/T: S: 10/31/2020 (1439) PAGE 1 Signed ReportSED [id number] 10:34:00 Test Item Value Reference Range Interpretation Comments SED RATE (test code = SEDW) 7 mm/hr 0-15 SED RATE [id number] 10:33:00 Test Item Value Reference Range Interpretation Comments SED RATE WESTERGREN (test code = 7 mm/hr 0-15 N SEDW) [id number] 07:00:00 Test Item Value Reference Range Interpretation Comments GLYCOSYLATED HEMOGLOBIN (HA1C) 5.5 % A1C 0.0-5.7 N (test code = GLYHGB) ESTIMATED AVERAGE GLUCOSE (test 111 MG/DLest code = EAG) BASIC METABOLIC [id number] 06:55:00 Test Item Value Reference Range Interpretation [...] WITHIN 1 HR AND FREEZE SERUM PROMPTLY.HOMOCYSTEINE [id number] 06:55:00 Test Item Value Reference Range Interpretation Comments HOMOCYSTEINE (test code = HOMOCY) mcMOL/L <9 Comment: FASTING IN AM PATIENT SHOULD BE FASTING OVERNIGHT 10-12 HRS. TAKE BLOOD TO LABASAP. MUST SEPAPATE SERUM FROM CELLS WITHIN 1 HR AND FREEZE SERUM PROMPTLY.CBC W/AUTO [id number] 06:41:00 Test Item Value Reference Range Interpretation [...] NO DIFF/SCN CRITERIA = MDIFF) GLUCOSE BEDSIDE [id number] 23:18:00 Test Item Value Reference Range Interpretation Comments GLUCOSE BEDSIDE TESTING (test code = 94 mg/dL 70-110 N GLUBED) COVID 19 INHOUSE [id number] 15:04:00 Test Item Value Reference Range Interpretation Comments COVID 19 INHOUSE AG NEGATIVE Negative Per [facility] facturer, (test code = negative result s should [id number]) be treated aspr esumptive and, if inconsi [...] with COVID-19. UA RFLX MICR CULT IF [id number] 14:02:00 Test Item Value Reference Range Interpretation [...] UACULT) Indication for culture: Dysuria/Frequency- CT ANGIO [id number] 13:00:00 [facility] : 1960 Sex: M Name: OTONIEL HENDERSON [facility] : 1960 Age/S: 60 / M [id number] Unit #: [id number] Loc:[place] [address] Phys: Anjum Rivera MD Acct: [id number] Dis Date: Status: PRE ER PHONE #: [phone] Exam Date: 10/30/2020 1235 FAX #: Reason: slurred speech EXAMS: CPT: [id number] CT ANGIO NECK [id number]: - CT ANGIO HEAD, - CT ANGIO [...] Report (CONTINUED) Name: OTONIEL HENDERSON [facility] [place] : 1960 Age/S: 60 / M [address] Unit #: [id number] Loc: [place] [address] Phys: Anjum Rivera MD Acct: [id number] Dis Date: Status: PRE ER PHONE #: [phone] Date: 10/30/2020 123 FAX #: Reason: slurred speech EXAMS: CPT: [id number] ANGIO NECK 754[address] <Continued> stenosis. Findings were personally discussed with [...] (1303) PAGE 2 Signed Report- CT ANGIO [id number] 13:00:00 [facility] : 1960 Sex: M Name: OTONIEL HENDERSON [facility] : 1960 Age/S: 60 / M [address] Unit #: [id number] Loc:[place] [address] Phys: Anjum Rivera MD Acct: [id number] Dis Date: Status: PRE ER PHONE #: [phone] Exam Date: 10/30/2020 1233 FAX #: Reason: slurred speech EXAMS: CPT: [id number] CT ANGIO HEAD [id number]: - CT ANGIO HEAD, - CT ANGIO [...] Signed Report (CONTINUED) Name: OTONIEL HENDERSON [facility] : 1960 Age/S: 60 / M [address] Unit #: [id number] Loc: [place] [address] Phys: Anjum Rivera MD Acct: [id number] Dis Date: Status: PRE ER PHONE #: [phone] Date: 10/30/2020 1233 FAX #: Reason: slurred speech EXAMS: CPT: [id number] ANGIO HEAD 570[address] <Continued> stenosis. Findings were personally discussed with [...] Kr CTDI: DLP: Trnscb Date/Time: 10/30/2020 (1300) [email or web address] Orig Print D/T: S: 10/30/2020 (8963) PAGE 2 Signed ReportBASIC METABOLIC [id number] 12:50:00 Test Item Value Reference Range Interpretation [...] 8.9 MG/DL 8.5-10.1 N Completed by Nursing: [id number] 12:50:00 Test Item Value Reference Range Interpretation [...] suman yby method. Completed by Nursing: NOPROTHROMBIN [id number] 12:47:00 Test Item Value Reference Range Interpretation Comments PT PATIENT (test code = PTP) 10.5 SECONDS 9.3-12.9 N INTERNATIONAL NORMAL RATIO 0.94 INR Unit 0.8-1.2 N (test code = INR) THROMBOPLASTIN TIME [id number] 12:47:00 Test Item Value Reference Range Interpretation Comments THROMBOPLASTIN TIME PARTIAL 27.9 SECONDS 26-35 N (test code = PTT) BASIC METABOLIC [id number] 12:43:00 Test Item Value Reference Range Interpretation [...] 8.9 MG/DL 8.5-10.1 N Completed by Nursing: [id number] 12:43:00 Test Item Value Reference Range Interpretation Comments TROPONIN-I (test code = TROPI) NG/ML 0.000-0.045 Completed by Nursing: NO- CT HEAD/BRAIN W/O [id number] 12:40:00 [facility] BEAT[facility]Z OTONIEL Elayne : 1960 Sex: M Name: BEATRIZOTONIEL Elayne [facility] : 1960 Age/S: 60 / M [address] Unit #: [id number] Loc:[place] [address] Phys: Anjum Rivera MD Acct: [id number] Dis Date: Status: PRE ER PHONE #: [phone] Exam Date: 10/30/2020 1231 FAX #: Reason: Code Stroke EXAMS: CPT: [id number] CT HEAD/BRAIN W/O CONT [id number]: - CT HEAD/BRAIN W/O CONT. LOCATION: S17. [...] 1 Signed Report (CONTINUED) Name: OTONIEL HENDERSON [place] : 1960 Age/S: 60 / M [address] [facility] Unit #: [id number] Loc: [place] [address] Phys: Anjum Rivera MD Acct: [id number] Dis Date: Status: PRE ER PHONE #: [phone] Exam Date: 10/30/2020 1231 FAX #: Reason: Code Stroke EXAMS: CPT: [id number] CT HEAD/BRAIN W/O CONT 03677 <Continued> at 1240 Reported and signed by: Manjinder Antonio M.D. CC: Anjum Rivera MD Technologist:Yohan Love, RT(R)(CT); Kr CTDI: DLP: Trnscb Date/Time: 10/30/2020 (1240) [email or web address] Orig Print D/T: S: 10/30/2020 (7941) PAGE 2 Signed ReportCBC W/O [id number] 12:35:00 Test Item Value Reference Range Interpretation [...] 10.70 fL 7.0-9.6 H MPV) GLUCOSE BEDSIDE [id number] 12:29:00 Test Item Value Reference Range Interpretation Comments GLUCOSE BEDSIDE TESTING (test code 140 mg/dL 70-110 H = GLUBED) BASIC METABOLIC [id number] 06:50:00 Test Item Value Reference Range Interpretation [...] mg/dL 8.8-10.2 N = CA) CBC W/AUTO [id number] 06:40:00 Test Item Value Reference Range Interpretation [...] BA#) 0.07 x10 3/uL 0.0-0.20 N VANCOMYCIN [id number] 13:34:00 Test Item Value Reference Range Interpretation Comments VANCOMYCIN TROUGH (test code = 14.4 mcg/ML 10.0-20.0 N VANCT) Spec Comments: RN PLS DRAW VANCO 30MIN BEFORE DOSE DUE ON 01/30 BASIC METABOLIC [id number] 04:08:00 Test Item Value Reference Range Interpretation [...] code 8.8 mg/dL 8.8-10.2 N = CA) [id number] 04:08:00 Test Item Value Reference Range Interpretation Comments MAGNESIUM (test code = MAG) 1.7 mg/dL 1.4-2.6 N CBC W/AUTO [id number] 03:56:00 Test Item Value Reference Range Interpretation [...] 0.09 x10 3/uL 0.0-0.20 N BASIC METABOLIC [id number] 21:22:00 Test Item Value Reference Range Interpretation [...] mg/dL 8.8-10.2 N = CA) RENAL FUNCTION [id number] 21:22:00 Test Item Value Reference Range Interpretation Comments ALBUMIN (test code = ALB) 3.4 G/DL 3.5-5.0 L PHOSPHOROUS (test code = PHOS) 2.0 mg/dL 2.7-4.5 L LIVER FUNCTION [id number] 21:22:00 Test Item Value Reference Range Interpretation [...] = 63 U/L 45-120 N ALKP) LACTIC [id number] 21:18:00 Test Item Value Reference Range Interpretation Comments LACTIC ACID (test code = LACT) 9.4 mg/dL 4.5-18.0 N PROTHROMBIN [id number] 21:12:00 Test Item Value Reference Range Interpretation [...] 2.5-3.5recurren t systemic emboli sm. THROMBOPLASTIN TIME [id number] 21:12:00 Test Item Value Reference Range Interpretation Comments THROMBOPLASTIN TIME 28.6 SECONDS 26.0-35.9 N INTERPRE TATIVE PARTIAL (test code = DATA: erapeutic PTT) range: Unfractionated heparin:47 - 71 seconds Argatroban:1.5 to 3 times the basel ine PTT PROTHROMBIN [id number] 21:09:00 Test Item Value Reference Range Interpretation [...] 2.5-3.5recurren t systemic emboli sm. THROMBOPLASTIN TIME [id number] 21:09:00 Test Item Value Reference Range Interpretation Comments THROMBOPLASTIN TIME PARTIAL (test SECONDS 26.0-35.9 code = PTT) CBC W/AUTO [id number] 21:08:00 Test Item Value Reference Range Interpretation [...] 0.05 x10 3/uL 0.0-0.20 N CBC W/MANUAL [id number] 05:21:00 Test Item Value Reference Range Interpretation [...] code NORMAL NORMAL = PLTMORPH) RENAL FUNCTION [id number] 05:20:00 Test Item Value Reference Range Interpretation [...] 2.5 mg/dL 2.7-4.5 L code = PHOS) [id number] 05:20:00 Test Item Value Reference Range Interpretation Comments MAGNESIUM (test code = MAG) 1.8 mg/dL 1.4-2.6 N CBC W/MANUAL [id number] 04:48:00 Test Item Value Reference Range Interpretation [...] code = LYMPH) % 20.5-45.5 CBC W/MANUAL [id number] 04:48:00 Test Item Value Reference Range Interpretation [...] (test code = LYMPH) % 20.5-45.5 SURGICAL [id number] 12:52:00 RUN DATE: 01/29/20 [place] [facility] - LAB PAGE 1 RUN TIME: 1252 Specimen Inquiry RUN USER: INTERFACE PATIENT: [facility] #: [id number] AGE/SX: 59/M ROOM: [facility] RE01/25/20[facility] DR: Cristopher Doty MD : [birth year] BED: 1 DIS: STATUS: ADM IN TLOC: SPEC #: [id number] RECD: 01/28/20 STATUS: SOUT REQ #: [id number] SIMON: 01/28/20 [facility] DR: Cristopher Doty MD ENTERED: 01/28/20 SP TYPE: SURG OTHR DR: No Primary or Family Physician Mio Gilbert MD No,DocORDERED: PATHGM3, PATHGM5/2, PATH SPEC, H E STAIN HISTOLOGY: TISSUE ID BLK PCS PARISH LEV / PROCEDURE DISPOSITION ____ ___ ___ ___ ___ COLON SEG NTUMR A 18 1 TISSUES: A. COLON SEGMENTAL [id number] - Sigmoid Colon Proximal Rectum Anastomatic Donuts, [...] CONTINUED ON NEXT PAGE RUN DATE: 01/29/20 [facility] - LAB PAGE 2 RUN TIME: 1252 Specimen Inquiry RUN USER: INTERFACE SPEC #: [id number] PATIENT: OTONIEL HENDERSON #[id number] (Continued) GROSS DESCRIPTION (Continued) 2.4 x 2 [...] A16-A18: Ring-shaped donut #2 (with blue sutures) SPORTS DOCTOR/th MICROSCOPIC DESCRIPTION Microscopic examination performed. Signed SIGNATURE ON FILE Nita Ashford 01/29/20 1252 END OF REPORT BASIC METABOLIC [id number] 08:29:00 Test Item Value Reference Range Interpretation [...] code 9.2 mg/dL 8.8-10.2 N = CA) [id number] 08:29:00 Test Item Value Reference Range Interpretation Comments MAGNESIUM (test code = MAG) 1.3 mg/dL 1.4-2.6 L CBC W/AUTO [id number] 08:04:00 Test Item Value Reference Range Interpretation [...] x10 3/uL 0.0-0.20 N Novel Coronavirus 2018 [id number] 14:20:00 Test Item Value Reference Range Interpretation Comments Novel Coronavirus NEGATIVE Positive r esults are 2018 nCoV (test indicative o f the presence code = COVID19) mfZGCQ-ZiW-2 RNA, clinical correlation wit h patient historyand [...] VERIFIEDbyP.LAB.RS, on 01/26/20, @ 1934.- XR ABDOMEN [id number] 14:18:00Patient Name: OTONIEL HENDERSON Unit No: [id number] EXAMS: CPT CODE: [id number] XR ABDOMEN 1V 80064 Abdomen one view supine 01/28/2020 CLINICAL INDICATION: [...] Dt/Tm: 01/28/2020 (1418) by:[email or web address] Printed Date/Time: 01/28/2020 (1426) [facility]: José Antonio Zamora MD [address] : 1960 Age: 59 Sex: [place] [address] Loc: P.0733 1 Exam Date: 01/28/2020 Status: ADM IN PH: FAX: PAGE 1 Signed ReportCOMPREHENSIVE METABOLIC [id number] 07:39:00 Test Item Value Reference Range Interpretation [...] 45-120 N PHOSPHATASE (test code = ALKP) [id number] 07:39:00 Test Item Value Reference Range Interpretation Comments MAGNESIUM (test code = MAG) 1.4 mg/dL 1.4-2.6 N CBC W/AUTO [id number] 07:12:00 Test Item Value Reference Range Interpretation [...] = BA#) 0.10 x10 3/uL 0.0-0.20 N [id number] 15:08:00 Test Item Value Reference Range Interpretation Comments LITHIUM (test 0.5 mmol/L 0.6-1.2 L code = LITH) Detection Limit = 0.1 <0.1 indicate s None DetectedPerform ed At: [facility] [address] [id number] So MD Ph:[phone] [id number] 15:08:00 Test Item Value Reference Range Interpretation Comments LITHIUM (test 0.5 mmol/L 0.6-1.2 L code = LITH) Detection Limit = 0.1 <0.1 indicate s None DetectedPerform ed At: [facility] [address] [id number] So MD Ph:[phone] Novel Coronavirus 2019 [id number] 07:11:00 Test Item Value Reference Range Interpretation [...] PHOSPHATASE (test code = ALKP) CBC W/AUTO [id number] 04:21:00 Test Item Value Reference Range Interpretation [...] 3/uL 0.0-0.20 N - CT ABD PELVIS [id number] 09:58:00Patient Name: OTONIEL HENDERSON Unit No: [id number] EXAMS: CPT CODE: [id number] CT ABD PELVIS W/CONT 6[address]22 CT abdomen and pelvis with IV contrast. [...] renal cyst. Additional findings as above. [facility]: VARSHA Norbert William MD [address] : 1960 Age: 59 Sex: M [place] [address] Loc: P.0723 1 Exam Date: 01/26/2020 Status: ADM IN PH: FAX: PAGE 1 Signed Report (CONTINUED) Patient Name: OTONIEL HENDERSON Unit No: [id number] EXAMS: CPT CODE: [id number] CT ABD PELVIS W/CONT 40242 <Continued> at 0958 Reported and signed by: OTONIEL ROSSI M.D. CC: Cristopher Doty MD; Norbert William MD Technologist: ANTONIO Martin(R)(CT) CTDI: 11.68 DLP: 602 Trscr Dt/Tm: 01/26/2020 (0958) by:[email or web address] Printed Date/Time: 01/26/2020 (1001)[facility] Phys: VARSHA. - Norbert William MD [address] DOB: 1960 Age: 59 Sex: M [place] [address] Loc: P.0723 1 Exam Date: 01/26/2020 Status: ADM IN PH: FAX: PAGE 2 Signed ReportCOMPREHENSIVE METABOLIC [id number] 05:50:00 Test Item Value Reference Range Interpretation [...] PHOSPHATASE (test code = ALKP) CBC W/AUTO [id number] 04:55:00 Test Item Value Reference Range Interpretation [...] 0.15 x10 3/uL 0.0-0.20 N COMPREHENSIVE METABOLIC [id number] 18:44:00 Test Item Value Reference Range Interpretation [...] N PHOSPHATASE (test code = ALKP) PROTHROMBIN [id number] 18:32:00 Test Item Value Reference Range Interpretation [...] 2.5-3.5recurren t systemic emboli sm. CBC W/AUTO [id number] 18:26:00 Test Item Value Reference Range Interpretation [...]
--- NOTE | 2022-03-07 15:06 | RAD REPORT ---
EXAM DESCRIPTION: RAD - Chest Single View - 03/07/2022 2:59 pm CLINICAL HISTORY: CHEST PAIN Chest pain. COMPARISON: Chest Single View dated 01/24/2022; Chest Single View dated 01/02/2022; Chest Single View dated 10/28/2021; Chest Single View dated 08/29/2021 FINDINGS: Portable technique limits examination quality. The lungs are grossly clear. The heart is normal in size. Significant tortuous thoracic aorta. No dis placed fractures.Old left posterior rib fractures. IMPRESSION: No acute intrathoracic process suspected.
[2022-03-07 15:07] LABS: Absolute Lymphocytes (CBC) 1.5 K/uL (0.7-4.9); Lymphocytes % 13.9 % (15.3-44.8); MPV 9.1 fL (7.6-11.3); RBC Red Blood Cell Count 4.83 M/uL (4.33-5.43)
[2022-03-07 15:11] LABS: Protime INR 0.95
[2022-03-07] MEDS ORDERED: MORPHINE 4 MG/ML SYR ONE (15:14)
[2022-03-07] MEDS ORDERED: ONDANSETRON 4 MG/2 ML VIAL ONE (15:15)
[2022-03-07 15:28] LABS: Albumin 3.8 g/dL (3.4-5.0); Bilirubin Direct 0.1 mg/dL (0-0.2); Bilirubin Total 0.3 mg/dL (0.2-1.0); Magnesium 1.8 mg/dL (1.8-2.4); Potassium 4.1 mmol/L (3.5-5.1); Protein, Total 7.3 g/dL (6.4-8.2); Troponin High Sensitivity 12.1 pg/mL (<58.9)
--- NOTE | 2022-03-07 16:15 | EDPHYS ---
Physician Documentation [facility] Name: Gregory Dumont Age: 61 yrs Sex: Male : 1960 Arrival Date: 03/07/2022 Time: 12:38 Bed 6 Private MD: ED Physician Shahnaz Miles HPI: 03/07 13:45 This 61 yrs old Male presents to ER via Ambulatory with complaints of Chest Pain. pm1 13:45 The patient or guardian reports chest pain that is located primarily in the right pm1 lateral anterior chest. 13:45 Onset: last night. The pain does not radiate. Associated signs and symptoms: The pm1 patient has no apparent associated signs or symptoms, Pertinent negatives: abdominal pain, cough, dizziness, headache, nausea, shortness of breath, vomiting. The chest pain is described as sharp. Duration: The patient or guardian reports a single episode, that is still ongoing. Modifying factors: the symptoms are aggravated by cough, deep breath, palpation of area, movement of right arm. Severity of pain: in the emergency department the pain is unchanged. The patient has not experienced similar symptoms in the past. The patient has not recently seen a physician. Historical: - Allergies: 12:48 No Known Allergies; vg1 - PMHx: 12:48 adhd; Anxiety; Bipolar disorder; Hypertensive disorder; strokes x 3; vg1 - PSHx: 12:48 colon resection; knee replacements; vg1 - Immunization history:: Client reports receiving the 2nd dose of the Covid vaccine. - Social history:: Smoking status: Reported history of juuling and/or vaping. ROS: 13:45 Constitutional: Negative for fever, chills, and weight loss, Respiratory: Negative for pm1 shortness of breath, cough, wheezing, and pleuritic chest pain. 13:45 Abdomen/GI: Negative for abdominal pain, nausea, vomiting, diarrhea, and constipation, MS/Extremity: Negative for injury and deformity, Skin: Negative for injury, rash, and discoloration, Neuro: Negative for headache, weakness, numbness, tingling, and seizure. 13:45 Cardiovascular: Positive for chest pain, Negative for edema, palpitations. 13:45 All other systems are negative. Exam: 13:45 Constitutional: This is a well developed, well nourished patient who is awake, alert, pm1 and in no acute distress. Head/Face: Normocephalic, atraumatic. 13:45 Back: No spinal tenderness. No costovertebral tenderness. Full range of motion. Skin: Warm, dry with normal turgor. Normal color with no rashes, no lesions, and no evidence of cellulitis. MS/ Extremity: Pulses equal, no cyanosis. Neurovascular intact. Full, normal range of motion. 13:45 Chest/axilla: Inspection: normal, Palpation: crepitus, is not appreciated, tenderness, of the right lateral anterior chest, that totally reproduces the patient's complaints. 13:45 Cardiovascular: Exam negative for acute changes, Rate: normal, Rhythm: regular, Pulses: no pulse deficits are appreciated, Heart sounds: normal, normal S1and S2. 13:45 Respiratory: Exam negative for acute changes, respiratory distress, shortness of breath, Breath sounds: are clear throughout. 13:45 Neuro: Exam negative for acute changes, Orientation: is normal, Mentation: is normal, Motor: is normal, moves all fours. Vital Signs: 12:46 BP 132 / 86; Pulse 74; Resp 20; Temp 98.8(TE); Pulse Ox 96% on R/A; Weight 77.11 kg; vg1 Height 5 ft. 11 in. (180.34 cm); Pain 10/10; 15:40 BP 167 / 91; Pulse 52; Resp 18; ww 17:00 BP 155 / 101; Pulse 50; Resp 17; Pulse Ox 96% ; ll1 12:46 Body Mass Index 23.71 (77.11 kg, 180.34 cm) vg1 MDM: 14:24 Data reviewed: vital signs. Data interpreted: Pulse oximetry: on room air is 96 %. pm1 Interpretation: normal. 14:29 Patient medically screened. pm1 16:07 Counseling: I had a detailed discussion with the patient and/or guardian regarding: the pm1 historical points, exam findings, and any diagnostic results supporting the discharge/admit diagnosis, lab results, radiology results, the need for outpatient follow up, to return to the emergency department if symptoms worsen or persist or if there are any questions or concerns that arise at home. 03/07 13:44 Order name: Basic Metabolic Panel; Complete Time: 15:37 pm1 03/07 13:44 Order name: CBC with Diff; Complete Time: 15:17 pm1 03/07 13:44 Order name: LFT's; Complete Time: 15:37 pm1 03/07 13:44 Order name: Magnesium; Complete Time: 15:37 pm03/07 13:44 Order name: NT PRO-BNP; Complete Time: 15:37 pm1 03/07 13:44 Order name: PT-INR; Complete Time: 15:17 pm1 03/07 13:44 Order name: Troponin HS; Complete Time: 15:37 pm1 03/07 13:44 Order name: XRAY Chest (1 view); Complete Time: 15:17 pm1 03/07 13:44 Order name: EKG; Complete Time: 13:45 pm1 03/07 13:44 Order name: Cardiac monitoring; Complete Time: 14:48 pm03/07 13:44 Order name: EKG - Nurse/Tech; Complete Time: 14:48 pm03/07 13:44 Order name: IV Saline Lock; Complete Time: 14:49 pm03/07 13:44 Order name: Labs collected and sent; Complete Time: 14:49 pm03/07 13:44 Order name: O2 Per Protocol; Complete Time: 14:48 pm03/07 13:44 Order name: O2 Sat Monitoring; Complete Time: 14:48 pm1 Administered Medications: 15:17 Drug: morphine 4 mg Route: IVP; Site: left forearm; ll1 17:01 Follow up: Response: No adverse reaction ll1 15:17 Drug: Zofran (Ondansetron) 4 mg Route: IVP; Site: left forearm; ll1 17:01 Follow up: Response: No adverse reaction ll1 16:32 Drug: Ketorolac 30 mg Route: IVP; Site: left forearm; ll1 17:01 Follow up: Response: No adverse reaction; Pain is decreased; RASS: Alert and Calm (0) ll1 16:32 Drug: Lidoderm Patch 5 % (700 mg/patch) 1 patches Route: Topical; Site: anterior chest ll1 wall; 17:01 Follow up: Response: No adverse reaction ll1 Disposition Summary: 03/07/22 16:15 Discharge Ordered Location: Home pm1 Problem: new pm1 Symptoms: have improved pm1 Condition: Stable pm1 Diagnosis - Chest pain, unspecified pm1 Followup: pm1 - With: Emergency Department - When: As needed - Reason: Worsening of condition Followup: pm1 - With: Private Physician - When: 2 - 3 days - Reason: Recheck today's complaints, Continuance of care, Re-evaluation by your physician Discharge Instructions: - Discharge Summary Sheet pm1 - Nonspecific Chest Pain, Adult pm1 - Chest Wall Pain pm1 Forms: - Medication Reconciliation Form pm1 - Thank You Letter pm1 - Antibiotic Education pm1 - Prescription Opioid Use pm1 Prescriptions: - Cyclobenzaprine 10 mg Oral Tablet - take 1 tablet by ORAL route every 8 hours As needed; 30 tablet; Refills: 0, pm1 Product Selection Permitted Signatures: Dispatcher [employer] EDMS Himanshu Yates NP TENTERING MACHINE OFF BEARER pm1 Anne Almendarez RN RN vg1 Christine Forrester RN RN ll1
--- NOTE | 2022-03-07 16:15 | ER ---
Nurse's Notes [facility] Name: Gregory Dumont Age: 61 yrs Sex: Male : 1960 Arrival Date: 03/07/2022 Time: 12:38 Bed 6 Private MD: Diagnosis: Chest pain, unspecified Presentation: 03/07 12:46 Chief complaint: Spouse and/or significant other states: chest pain began last night; vg1 states worse with movement and deep inhalation. Coronavirus screen: Vaccine status: Patient reports receiving the 2nd dose of the covid vaccine. Client denies travel out of the [place] in the last 14 days. Ebola Screen: Patient denies exposure to infectious person. Patient denies travel to an Ebola-affected area in the 21 days before illness onset. Initial Sepsis Screen: Does the patient meet any 2 criteria? No. Patient's initial sepsis screen is negative. Does the patient have a suspected source of infection? No. Patient's initial sepsis screen is negative. Risk Assessment: Do you want to hurt yourself or someone else? Patient reports no desire to harm self or others. Onset of symptoms was March 06, 2022. 12:46 Method Of Arrival: Ambulatory vg1 12:46 Acuity: MARION 3 vg1 Triage Assessment: 12:48 General: Appears uncomfortable, Behavior is cooperative. Pain: Complains of pain in vg1 right lateral anterior chest Pain currently is 10 out of 10 on a pain scale. Cardiovascular: Patient's skin is warm and dry. Respiratory: Reports pain with respiration Airway is patent Respiratory effort is even, unlabored. Historical: - Allergies: 12:48 No Known Allergies; vg1 - PMHx: 12:48 adhd; Anxiety; Bipolar disorder; Hypertensive disorder; strokes x 3; vg1 - PSHx: 12:48 colon resection; knee replacements; vg1 - Immunization history:: Client reports receiving the 2nd dose of the Covid vaccine. - Social history:: Smoking status: Reported history of juuling and/or vaping. Screenin:40 Abuse screen: Denies threats or abuse. Nutritional screening: No deficits noted. ll1 Tuberculosis screening: No symptoms or risk factors identified. 15:36 Fall Risk None identified. ww Assessment: 14:40 Reassessment: No changes from previously documented assessment. Patient and/or family ll1 updated on plan of care and expected duration. Pain level reassessed. Patient is alert, oriented x 3, equal unlabored respirations, skin warm/dry/pink. 15:36 General: Appears in no apparent distress. Behavior is cooperative. Pain: Complains of ww pain in anterior aspect of right upper chest and right breast Pain does not radiate. Respiratory: Airway is patent Respiratory effort is even, unlabored, Respiratory pattern is regular, symmetrical. 16:30 Reassessment: No changes from previously documented assessment. Patient and/or family ll1 updated on plan of care and expected duration. Pain level reassessed. Patient is alert, oriented x 3, equal unlabored respirations, skin warm/dry/pink. Pain: Pain began 2-3 days ago. 17:01 Reassessment: No changes from previously documented assessment. Patient and/or family ll1 updated on plan of care and expected duration. Pain level reassessed. Patient is alert, oriented x 3, equal unlabored respirations, skin warm/dry/pink. Vital Signs: 12:46 BP 132 / 86; Pulse 74; Resp 20; Temp 98.8(TE); Pulse Ox 96% on R/A; Weight 77.11 kg; vg1 Height 5 ft. 11 in. (180.34 cm); Pain 10/10; 15:40 BP 167 / 91; Pulse 52; Resp 18; ww 17:00 BP 155 / 101; Pulse 50; Resp 17; Pulse Ox 96% ; ll1 12:46 Body Mass Index 23.71 (77.11 kg, 180.34 cm) vg1 ED Course: 12:38 Patient arrived in ED. ds1 12:48 Triage completed. vg1 12:48 Arm band placed on. vg1 13:44 Himanshu Yates NP is PHCP. pm1 13:44 Shahnaz Miles MD is Attending Physician. pm1 14:40 Christine Forrester RN is Primary Nurse. ll1 14:40 Patient placed in an exam room, on a stretcher. ll1 14:41 Patient has correct armband on for positive identification. Bed in low position. Call ll1 light in reach. Side rails up X2. Client placed on continuous cardiac and pulse oximetry monitoring. NIBP monitoring applied. 15:00 Inserted saline lock: 20 gauge in left forearm, using aseptic technique. ww 15:01 XRAY Chest (1 view) In Process Unspecified. EDMS 17:03 No provider procedures requiring assistance completed. IV discontinued, intact, ll1 bleeding controlled, No redness/swelling at site. Pressure dressing applied. Patient maintains SpO2 saturation greater than 95% on room air. Administered Medications: 15:17 Drug: morphine 4 mg Route: IVP; Site: left forearm; ll1 17:01 Follow up: Response: No adverse reaction ll1 15:17 Drug: Zofran (Ondansetron) 4 mg Route: IVP; Site: left forearm; ll1 17:01 Follow up: Response: No adverse reaction ll1 16:32 Drug: Ketorolac 30 mg Route: IVP; Site: left forearm; ll1 17:01 Follow up: Response: No adverse reaction; Pain is decreased; RASS: Alert and Calm (0) ll1 16:32 Drug: Lidoderm Patch 5 % (700 mg/patch) 1 patches Route: Topical; Site: anterior chest ll1 wall; 17:01 Follow up: Response: No adverse reaction 1 Medication: 14:41 VIS not applicable for this client. 1 Outcome: 16:15 Discharge ordered by . pm1 17:03 Discharged to home ambulatory. ll1 17:03 Condition: stable 17:03 Discharge instructions given to patient, family, Instructed on discharge instructions, follow up and referral plans. no drinking with medication, no driving heavy equipment, medication usage, Demonstrated understanding of instructions, follow-up care, medications, Prescriptions given X 1. 17:03 Patient left the ED. 1 Signatures: Dispatcher [employer] EDAR Charlene Berry ds1 Himanshu Yates NP IT CONSULTING MANAGER pm1 Anne Almendarez RN RN vg1 Christine Forrester RN RN ll1 Liza Faye RN RN ww Corrections: (The following items were deleted from the chart) 12:51 12:46 Acuity: MARION 2 vg1 vg1
[2022-03-07] MEDS ORDERED: KETOROLAC 30 MG/ML INJ ONE (16:31)
[2022-03-07] MEDS ORDERED: LIDOCAINE 4% PATCH ONE (16:32)
[2022-03-07 17:13] VITALS: TEMP 98.8; O2SAT 96
[2022-03-07 17:19] VITALS: BP 155/101
--- NOTE | 2022-03-08 11:25 | EKG ---
Test Date: 2022-03-07 Test Time: 14:43:08 Residential Plumber: KEILY MEASUREMENT RESULTS: Intervals: Rate: 49 DE: 134 QRSD: 94 QT: 454 QTc: 410 [place]: P: 53 DE: 134 QRS: 82 T: 83 INTERPRETIVE STATEMENTS: Sinus bradycardia Otherwise normal ECG Compared to ECG 01/26/2022 07:20:34 Sinus rhythm no longer present Sinus arrhythmia no longer present Electronically Signed On 03-08-22 11:23:25 CDT by Hoang Burns
== END 2022-03-07 17:03 | disposition home or self-care (01) ==
LOC: ER 12:37
DX: R07.9 Chest pain, unspecified (principal); I10 Essential (primary) hypertension; F41.9 Anxiety disorder, unspecified; Z86.73 Personal history of transient ischemic attack (TIA), and cerebral infarction without residual deficits
CPT/HCPCS: 93005; 85025; 80048; 36415; 83735; 85610; 80076; 84484; 83880; 71045; 96375; 96374; 99284; J2001; J2405

== ENCOUNTER 2022-04-09 12:04 | Emergency (ER) | payer OTHER ==
--- OUTSIDE RECORDS SUMMARY | 2022-04-09 12:10 | XMS REPORT | Continuity of Care Document ---
:1960 Author Organization [facility] t Address [address] [place] [address] Care Team Providers Name Role Phone Laura CALDWELL Primary Care Physician EVERETT Attending Clinician Unavailable [id number] Attending Clinician Unavailable Saray Gomes Attending Clinician Unavailable Steffi Gilbert Attending Clinician Unavailable KWESI Attending Clinician Unavailable LAURA Attending Clinician Unavailable Laura CALDWELL Attending Clinician Osito Garcia Attending Clinician Caryn Arteaga MD Attending Clinician [email or web address] Attending Clinician Unavailable Gustavo Attending Clinician [phone] Elba Attending Clinician Unavailable A_Byrd Attending Clinician Unavailable Lucio Attending Clinician Unavailable Soren Attending Clinician Unavailable [id number] Admitting Clinician Unavailable Physician, Primary or Family Admitting Clinician UnavailStefif Guo Admitting Clinician Unavailable [email or web address] Admitting Clinician Unavailable Elba Admitting Clinician Unavailable A_Byrd Admitting Clinician Unavailable Payers Payer Name Policy Type Policy Number Effective Date Expiration Date S jorge [facility] [id number] 2021 2022 STARPLUS OON EXCEPT 00:00:00 00:00:00 [facility] [place] MEDICA[place] [id number] 2021 00:00:00 [facility] DUAL [id number] 2021 COMP HMO D SNP 00:00:00 [facility] STAR PLUS [id number] 2021 00:00:00 [employer] - [id number] 2021 [facility] 00:00:00 (MEDICARE REPLACEMENT/ADVANTA GE - HMO) [facility] - AARP - [id number] 2021 MEDICARE SOLUTIONS 00:00:00 - MEDICARE COMPLETE (MEDICARE REPLACEMENT HMO) [place] B[place]: [id number] [employer] [facility] [id number] 2020 COMMUNITY PLAN - 00:00:00 [place] STAR PLUS (MEDICAID HMO) Problems Condition Condition Condition Status Onset Resolution Last Treating Co mments Source Name Details Category Date Date Treatment Clinician Date Scabies Scabies Disease Active Univers exposure exposure 6-09 ity of 00:00: [place] 00 Medical Branch Stress Stress Disease Active [facility] reaction reaction [...] [place] [facility] Disease Active Unive rs discharge discharge 3-23 it[place] of [place] Hypotensio Hypotensio Disease Active U nivers n n 3-23 ity of 00:00: [place] 00 Medical Branch Dyslipidem Dyslipidem Disease Active U herrera ia ia 2-23 ity of 00:00: [place] 00 Medical Branch Speech and Speech and Disease Active U mindiers language language 2-23 ity of deficit as [place] as [place] late late 00 Medical effect of effect of Bran ch stroke stroke Medicare Medicare Disease Active Unive rs annual annual 2-08 ity of wellness wellness 00:00: [place] visit, visit, 00 Medical initial initial Branch [...] nivers s s 2-04 ity of 00:00: Medical Branch Pulmonary Pulmonary Disease Active Uni vers embolism, embolism, 6-05 [place] bilateral [place] Cerebrovas Cerebrovas Disease Active U nivers cular cular 9-24 ity of disease disease 00:00: Medical Branch Chest pain Chest pain Disease Active U nivers 9-23 ity of 00:00: [place] [facility] Acute Acute Disease Active Univers right right 9-23 ity of arterial arterial 00:00: [place] ischemic ischemic 00 Medica l stroke, stroke, Branch middle middle cerebral cerebral artery artery (MCA) (MCA) Vapes Vapes Disease Active Univers nicotine nicotine 4-16 ity of containing containing [place] substance substance 00 Medi diogenes Branch Status Status Disease Active 2015-10 Univers [...] Formattin ity of 00:00: g of this 00 note Medical might be Branch different from the original. ICD10 Diagnosis Term Student Services Coordinator Utility Impacted Impacted Problem Active Commo n cerumen of cerumen of Sp kyle left ear left ear - [facility] Alzheimer' Alzheimer' Problem Active C ommon 's 's Spirit disease, disease, - [facility] unspecifie unspecifie [facility] d d [facility] 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Commo n dysfunctio dysfunctio Sp kyle n, n, - [facility] unspecifie unspecifie [facility] d erectile d erectile Greta kes dysfunctio dysfunctio Me dical n type n type Center Hypoglycem Hypoglycem Problem Active C ommon ia ia Spirit - [facility] Simple Simple Problem Active Common chronic chronic Spirit bronchitis bronchitis - [facility] Nicotine Nicotine Problem Active Commo n dependence dependence Sp kyle , , - [facility] cigarettes cigarettes St , , [facility]complic[facility]complic[facility] Primary Primary Problem Active 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 [facility] Seasonal Seasonal Diagnosis Active Com mon allergic allergic Spirit rhinitis, rhinitis, - [facility] I unspecifie unspecifie St d trigger d [facility] Folliculit Folliculit Problem Active C ommon is is Spirit [facility] Arthritis Arthritis Problem Active Com mon Spirit [facility] Bipolar 1 Bipolar 1 Problem Active Com mon disorder disorder Spirit [facility] Mixed Mixed Problem Active Common hyperlipid hyperlipid Sp kyle emia emia [facility] Pure Pure Problem Active Common hyperchole hyperchole Sp kyle sterolemia sterolemia [facility] Primary Primary Problem Active 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 - [facility] involving involving [facility] multiple [facility] joints joints [facility] [place] Smoker Smoker Problem Active Common Spirit [facility] Essential Essential Problem Active Com mon hypertensi hypertensi Sp kyle on on - [facility] Other Other Problem Active Common chronic chronic Spirit pain pain - [facility] Irritabili Irritabili Problem Active C ommon ty and ty and Spirit anger anger [facility] Elevated Elevated Problem Active Commo n blood blood Spirit pressure pressure - [facility] reading reading St without without [facility] diagnosis diagnosis [facility] hypertensi hypertensi on on Encounter Encounter Problem Active Com mon for for Spirit tobacco tobacco - [facility] use use St cessation cessation [facility] counseling counseling [facility] Mild Mild Problem Active Common memory memory Spirit disturbanc disturbanc - [facility] e e [facility] Paresthesi Paresthesi Problem Active C ommon a of skin a of skin Spir it - [facility] Otalgia of Otalgia of Problem Active C ommon left ear left ear Spirit [facility] Dementia Dementia Problem Active Commo n in other in other Spirit diseases diseases - [facility] classified classified St elsewhere elsewhere Lu s without without Medical behavioral behavioral Ce nter disturbanc disturbanc e e Allergies, Adverse Reactions, Alerts Allergy Allergy Status Severity Reaction(s) Onset Inactive Treating Comm ents Source Name Type Date Date Clinician No Known DA Active U 2021-0 [facility] Allergie 1-14 [place] [facility] 00:[facility]: [place] 00 [facility] No Known DA Active U 2020-0 [facility] Allergie 1-14 [place] 00:00: [place] 00 [facility] No Known DA Active U 2019-0 [facility] Allergie 4-10 [place] [facility] 00:[facility]: [facility] are [facility] No Known DA Active U 2020-0 [facility] Allergie 4-10 [place] 00:00: [facility] 00 are [facility] NO KNOWN Drug Active Univers ALLERGIE Class ity of S [facility] Social History Social Habit Start Date Stop Date Quantity Comments Source Sex Assigned At [facility] Medicine History of tobacco Cigar Smoker [facility] ersity of use [facility] History SDOH University o f [facility] SDMA University o f Alcohol Std Drinks [facility] History [facility] o f Alcohol Binge [facility] Branch Exposure to 2022-03-22 2022-04-01 Not sure University SARS-CoV-2 (event) 00:00:00 09:42:00 [facility] Alcohol intake 2022-03-29 2022-03-29 0 /d University of 00:00:00 00:00:00 [facility] Education 2021-03-21 2021-03-21 14 University of 00:00:00 00:00:00 [facility] Cigarettes smoked 2016-06-11 2016-06-11 Univers ity of current (pack per 00:00:00 00:00:00 ) - Reported Branch Cigarette 2016-06-11 2016-06-11 University of pack-years 00:00:00 00:00:00 [facility] Tobacco use and 2016-06-11 2016-06-11 Never used Universit y of exposure 00:00:00 00:00:00 [facility] Alcohol Comment 2016-06-11 2016-06-11 sober for 20 Univers ity of 00:00:00 00:00:00 years [facility] Smoking Status Start Date Stop Date Source Unknown if ever smoked [facility] Current some day smoker 2016-06-11 00:00:00 [facility] Medications Ordered Filled Start Stop Current Ordering Indication Dosage Frequency Signature Comments Components Source Medication Medication Date Date Medication? Clinician (SIG) Name Name gabapentin Yes [id number] 400mg Take 1 Univers 400 mg 6-14 capsule by ity of capsule 00:00: mouth (three) Medical times Branch daily. traMADoL 2022-0 Yes [id number] 1{tbl} Take 1 Univers 100 mg Tab 6-14 tablet by ity of 00:00: mouth (three) Medical times Branch daily as needed for Pain (scale 7-10). gabapentin 2022-0 Yes [id number] 400mg Take 1 Univers 400 mg 6-14 capsule by ity of capsule 00:00: mouth (three) Medical times Branch daily. traMADoL 2022-0 Yes [id number] 1{tbl} Take 1 Univers 100 mg Tab 6-14 tablet by ity of 00:00: mouth (three) Medical times Branch daily as needed for Pain (scale 7-10). gabapentin 2022-0 Yes [id number] 400mg Take 1 Univers 400 mg 6-14 capsule by ity of capsule 00:00: mouth (three) Medical times Branch daily. traMADoL 2022-0 Yes [id number] 1{tbl} Take 1 Univers 100 mg Tab 6-14 tablet by ity of 00:00: mouth (three) Medical times Branch daily as needed for Pain (scale 7-10). gabapentin 2022-0 Yes [id number] 400mg Take 1 Univers 400 mg 6-14 capsule by ity of capsule 00:00: mouth (three) Medical times Branch daily. traMADoL 2022-0 Yes [id number] 1{tbl} Take 1 Univers 100 mg Tab 6-14 tablet by ity of 00:00: mouth (three) Medical times Branch daily as needed for Pain (scale 7-10). gabapentin 2022-0 Yes [id number] 400mg Take 1 Univers 400 mg 6-14 capsule by ity of capsule 00:00: mouth (three) Medical times Branch daily. traMADoL 2022-0 Yes [id number] 1{tbl} Take 1 Univers 100 mg Tab 6-14 tablet by ity of 00:00: mouth (three) Medical times Branch daily as needed for Pain (scale 7-10). gabapentin 2022-0 Yes [id number] 400mg Take 1 Univers 400 mg 6-14 capsule by ity of capsule 00:00: mouth 3 [place] 00 (three) Medical times Branch daily. traMADoL 2021-0 Yes [id number] 1{tbl} Take 1 Univers 100 mg Tab 6-14 tablet by ity of 00:00: mouth 3 00 (three) Medical times Branch daily as needed for Pain (scale 7-10). ALBUTEROL 2021-0 Yes 8.5g Inhale 8.5 Un cecile INHALE 6-09 g every 4 ity of 10:27: (four) [place] 17 hours. Medical Branch atomoxetine 2021-0 Yes 40mg Take 40 mg Univers 40 mg 6-09 by mouth ity of capsule 10:27: daily. Medical Branch traZODone 2021-0 Yes 150mg Take 150 Uni vers 100 mg 6-09 mg by ity of tablet 10:27: mouth at [place] [address] bedtime. Medical Branch duloxetine 2021-0 Yes 30mg Take 30 mg U nivers HCl 6-09 by mouth ity of (DULOXETINE 10:27: at [place] ORAL) bedtime. Medical Branch ALBUTEROL 2021-0 Yes 8.5g Inhale 8.5 Un cecile INHALE 6-09 g every 4 ity of 10:27: (four) [place] [address] hours. Medical Branch atomoxetine 2021-0 Yes 40mg Take 40 mg Univers 40 mg 6-09 by mouth ity of capsule 10:27: daily. Medical Branch traZODone 2021-0 Yes 150mg Take 150 Uni vers 100 mg 6-09 mg by ity of tablet 10:27: mouth at [place] [address] bedtime. Medical Branch duloxetine 2021-0 Yes 30mg Take 30 mg U nivers HCl 6-09 by mouth ity of (DULOXETINE 10:27: at [place] ORAL) 17 bedtime. Medical Branch ALBUTEROL 2021-0 Yes 8.5g Inhale 8.5 Un cecile INHALE 6-09 g every 4 ity of 10:27: (four) [place] [address] hours. Medical Branch atomoxetine 2021-0 Yes 40mg Take 40 mg Univers 40 mg 6-09 by mouth ity of capsule 10:27: daily. [place] [address] Medical Branch traZODone 2021-0 Yes 150mg Take 150 Uni vers 100 mg 6-09 mg by ity of tablet 10:27: mouth at [place] [address] bedtime. Medical Branch duloxetine 2-0 Yes 30mg Take 30 mg U nivers HCl 6-09 by mouth ity of (DULOXETINE 10:27: at [place] ORAL) 17 bedtime. Medical Branch ALBUTEROL 2-0 Yes 8.5g Inhale 8.5 Un cecile INHALE 6-09 g every 4 ity of 10:27: (four) [place] 17 hours. Medical Branch atomoxetine 2-0 Yes 40mg Take 40 mg Univers 40 mg 6-09 by mouth ity of capsule 10:27: daily. [place] [address] Medical Branch traZODone 2021-0 Yes 150mg Take 150 Uni vers 100 mg 6-09 mg by ity of tablet 10:27: mouth at [place] [address] bedtime. Medical Branch duloxetine 2021-0 Yes 30mg Take 30 mg U nivers HCl 6-09 by mouth ity of (DULOXETINE 10:27: at [facility]) 17 bedtime. Medical Branch ALBUTEROL 2-0 Yes 8.5g Inhale 8.5 Un cecile INHALE 6-09 g every 4 ity of 10:27: (four) [place] [address] hours. Medical Branch atomoxetine 2021-0 Yes 40mg Take 40 mg Univers 40 mg 6-09 by mouth ity of capsule 10:27: daily. [place] [address] Medical Branch traZODone 2021-0 Yes 150mg Take 150 Uni vers 100 mg 6-09 mg by ity of tablet 10:27: mouth at [place] [address] bedtime. Medical Branch duloxetine 2021-0 Yes 30mg Take 30 mg U nivers HCl 6-09 by mouth ity of (DULOXETINE 10:27: at [place] ORAL) bedtime. Medical Branch ALBUTEROL 2-0 Yes 8.5g Inhale 8.5 Un cecile INHALE 6-09 g every 4 ity of 10:27: (four) [place] 17 hours. Medical Branch atomoxetine 2-0 Yes 40mg Take 40 mg Univers 40 mg 6-09 by mouth ity of capsule 10:27: daily. [place] [address] Medical Branch traZODone 2-0 Yes 150mg Take 150 Uni vers 100 mg 6-09 mg by ity of tablet 10:27: mouth at [place] [address] bedtime. Medical Branch duloxetine 2-0 Yes 30mg Take 30 mg U nivers HCl 6-09 by mouth ity of (DULOXETINE 10:27: at [place] ORAL) 17 bedtime. Medical Branch ALBUTEROL 2021-0 Yes 8.5g Inhale 8.5 Un cecile INHALE 6-09 g every 4 ity of 10:27: (four) [place] 17 hours. Medical Branch atomoxetine 2021-0 Yes 40mg Take 40 mg Univers 40 mg 6-09 by mouth ity of capsule 10:27: daily. [place] [address] Medical Branch traZODone 2021-0 Yes 150mg Take 150 Uni vers 100 mg 6-09 mg by ity of tablet 10:27: mouth at [place] 17 bedtime. Medical Branch duloxetine 2021-0 Yes 30mg Take 30 mg U nivers HCl 6-09 by mouth ity of (DULOXETINE 10:27: at [place] ORAL) 17 bedtime. Medical Branch permethrin 2021-0 Yes [id number] Apply to Univers 5 % cream - [id number] area(s) ity o f 00:00: daily. [place] 00 Apply to Medical body from Branch neck down x 8 - 14 H, then wash off. permethrin 2021-0 Yes [id number] Apply to Univers 5 % cream - [id number] area(s) ity o f 00:00: daily. [place] 00 Apply to Medical body from Branch neck down x 8 - 14 H, then wash off. permethrin 2021-0 Yes [id number] Apply to Univers 5 % cream - 238876 area(s) ity o f 00:00: daily. [place] 00 Apply to Medical body from Branch neck down x 8 - 14 H, then wash off. permethrin 2-0 Yes [id number] Apply to Univers 5 % cream - [id number] area(s) ity o f 00:00: daily. [place] 00 Apply to Medical body from Branch neck down x 8 - 14 H, then wash off. permethrin 2022-0 Yes [id number] Apply to Univers 5 % cream - [id number] area(s) ity o f 00:00: daily. [place] 00 Apply to Medical body from Branch neck down x 8 - 14 H, then wash off. permethrin 2022-0 Yes [id number] Apply to Univers 5 % cream - [id number] area(s) ity o f 00:00: daily. [place] 00 Apply to Medical body from Branch neck down x 8 - 14 H, then wash off. permethrin 2021-0 Yes [id number] Apply to Univers 5 % cream 03-25 [id number] area(s) ity o f 00:00: daily. 00 Apply to Medical body from Branch neck down x 8 - 14 H, then wash off. TIZANIDINE 2022-0 Yes [id number] TAKE 1 Univers 2 mg tablet 6-03 05 TABLET BY ity of 00:00: MOUTH EVERY 8 Medical HOURS Branch NEEDED FOR MUSCLE SPASMS TIZANIDINE 2-0 Yes [id number] TAKE 1 Univers 2 mg tablet 6-03 05 TABLET BY ity of 00:00: MOUTH EVERY 8 Medical HOURS Branch NEEDED FOR MUSCLE SPASMS TIZANIDINE 2-0 Yes [id number] TAKE 1 Univers 2 mg tablet 6-03 05 TABLET BY ity of 00:00: MOUTH EVERY 8 Medical HOURS Branch NEEDED FOR MUSCLE SPASMS TIZANIDINE 2-0 Yes [id number] TAKE 1 Univers 2 mg tablet 6-03 05 TABLET BY ity of 00:00: MOUTH EVERY 8 Medical HOURS Branch NEEDED FOR MUSCLE SPASMS TIZANIDINE 2-0 Yes [id number] TAKE 1 Univers 2 mg tablet 6-03 05 TABLET BY ity of 00:00: MOUTH EVERY 8 Medical HOURS Branch NEEDED FOR MUSCLE SPASMS TIZANIDINE 2-0 Yes [id number] TAKE 1 Univers 2 mg tablet 6-03 05 TABLET BY ity of 00:00: MOUTH EVERY 8 Medical HOURS Branch NEEDED FOR MUSCLE SPASMS TIZANIDINE 2-0 Yes [id number] TAKE 1 Univers 2 mg tablet 6-03 05 TABLET BY ity of 00:00: MOUTH 00 EVERY 8 Medical HOURS Branch NEEDED FOR MUSCLE SPASMS DICLOFENAC 2022-0 Yes [id number] TAKE 1 Univers 75 mg EC 4-25 05 TABLET BY ity of tablet 00:00: MOUTH 00 TWICE Medical DAILY WITH Branch MEALS DICLOFENAC 2022-0 Yes [id number] TAKE 1 Univers 75 mg EC 4-25 05 TABLET BY ity of tablet 00:00: MOUTH 00 TWICE Medical DAILY WITH Branch MEALS DICLOFENAC 2022-0 Yes [id number] TAKE 1 Univers 75 mg EC 4-25 05 TABLET BY ity of tablet 00:00: MOUTH [place] 00 TWICE Medical DAILY WITH Branch MEALS DICLOFENAC 2021-0 Yes [id number] TAKE 1 Univers 75 mg EC 4-25 05 TABLET BY ity of tablet 00:00: MOUTH [place] 00 TWICE Medical DAILY WITH Branch MEALS DICLOFENAC 2021-0 Yes [id number] TAKE 1 Univers 75 mg EC 4-25 05 TABLET BY ity of tablet 00:00: MOUTH [place] 00 TWICE Medical DAILY WITH Branch MEALS DICLOFENAC 2021-0 Yes [id number] TAKE 1 Univers 75 mg EC 4-25 05 TABLET BY ity of tablet 00:00: MOUTH [place] 00 TWICE Medical DAILY WITH Branch MEALS DICLOFENAC 2021-0 Yes [id number] TAKE 1 Univers 75 mg EC 4-25 05 TABLET BY ity of tablet 00:00: MOUTH [place] 00 TWICE Medical DAILY WITH Branch MEALS GABAPENTIN 2021-0 Yes [id number] TAKE 1 Univers 400 mg 4-11 CAPSULE BY ity of capsule 00:00: MOUTH [place] 00 THREE Medical TIMES Branch DAILY GABAPENTIN 2021-0 2021- No [id number] TAKE 1 Univers 400 mg 4-11 06-14 CAPSULE BY ity of capsule 00:00: 00:00 MOUTH [place] 00 :00 THREE Medical TIMES Branch DAILY sildenafil 2021-0 Yes [id number] 20mg Take 1 Univers (REVATIO) 4-06 tablet by ity o f 20 mg 00:00: mouth as [place] tablet 00 needed Medical (Take 1 Branch tablet by mouth as needed (Erectile Dsyfynctio n). Take 1 Take 30 mins prior to being intimate. Do not exceed 40mg in 24H. Do not mix with any other medication ). sildenafil 2021-0 Yes [id number] 20mg Take 1 Univers (REVATIO) 4-06 tablet by ity o f 20 mg 00:00: mouth as [place] tablet 00 needed Medical (Take 1 Branch tablet by mouth as needed (Erectile Dsyfynctio n). Take 1 Take 30 mins prior to being intimate. Do not exceed 40mg in 24H. Do not mix with any other medication ). sildenafil 2021-0 Yes [id number] 20mg Take 1 Univers (REVATIO) 4-06 tablet by ity o f 20 mg 00:00: mouth as [place] tablet 00 needed Medical (Take 1 Branch tablet by mouth as needed (Erectile Dsyfynctio n). Take 1 Take 30 mins prior to being intimate. Do not exceed 40mg in 24H. Do not mix with any other medication ). sildenafil Yes [id number] 20mg Take 1 Univers (REVATIO) 4-06 tablet by ity o f 20 mg 00:00: mouth as [place] tablet 00 needed Medical (Take 1 Branch tablet by mouth as needed (Erectile Dsyfynctio n). Take 1 Take 30 mins prior to being intimate. Do not exceed 40mg in 24H. Do not mix with any other medication ). sildenafil Yes [id number] 20mg Take 1 Univers (REVATIO) 4-06 tablet by ity o f 20 mg 00:00: mouth as [place] tablet 00 needed Medical (Take 1 Branch tablet by mouth as needed (Erectile Dsyfynctio n). Take 1 Take 30 mins prior to being intimate. Do not exceed 40mg in 24H. Do not mix with any other medication ). sildenafil Yes [id number] 20mg Take 1 Univers (REVATIO) 4-06 tablet by ity o f 20 mg 00:00: mouth as [place] tablet 00 needed Medical (Take 1 Branch tablet by mouth as needed (Erectile Dsyfynctio n). Take 1 Take 30 mins prior to being intimate. Do not exceed 40mg in 24H. Do not mix with any other medication ). sildenafil Yes [id number] 20mg Take 1 Univers (REVATIO) 4-06 tablet by ity o f 20 mg 00:00: mouth as [place] tablet 00 needed Medical (Take 1 Branch tablet by mouth as needed (Erectile Dsyfynctio n). Take 1 Take 30 mins prior to being intimate. Do not exceed 40mg in 24H. Do not mix with any other medication ). traMADoL Yes [id number] 1{tbl} Take 1 Univers 100 mg Tab 3-09 tablet by ity of 00:00: mouth 3 [place] 00 (three) Medical times Branch daily as needed for Pain (scale 7-10). traMADoL 2021- No [id number] 1{tbl} Take 1 Univers 100 mg Tab 3-09 06-14 tablet by ity of 00:00: 00:00 mouth 3 [place] 00 :00 (three) Medical times Branch daily as needed for Pain (scale 7-10). nicotine 7 2021-0 Yes [id number] 1{patch Apply 1 Univers mg/24 hr 2-23 } Patch to ity of patch 00:00: area(s) [place] 00 every 24 Medical (twenty-fo Branch ur) hours. Apply 21mg patch daily x 6 weeks; then apply 14mf patch daily x 2 weeks; then apply 7mg patch daily x 2 weeks. Stop smoking on initiation of therapy nicotine Yes [id number] 1{patch Apply 1 Univers mg/24 hr 2-23 } Patch to ity of patch 00:00: area(s) [place] 00 daily. Medical Apply 21mg Branch patch daily x 6 weeks; then apply 14mf patch daily x 2 weeks; then apply 7mg patch daily x 2 weeks. Stop smoking on initiation of therapy nicotine Yes [id number] 1{patch Apply 1 Univers mg/24 hr 2-23 } Patch to ity of patch 00:00: area(s) [place] 00 every 24 Medical (twenty-fo Branch ur) hours. Apply 21mg patch daily x 6 weeks; then apply 14mf patch daily x 2 weeks; then apply 7mg patch daily x 2 weeks. Stop smoking on initiation of therapy nicotine Yes [id number] 1{patch Apply 1 Univers mg/24 hr 2-23 } Patch to ity of patch 00:00: area(s) [place] 00 every 24 Medical (twenty-fo Branch ur) hours. Apply 21mg patch daily x 6 weeks; then apply 14mf patch daily x 2 weeks; then apply 7mg patch daily x 2 weeks. Stop smoking on initiation of therapy nicotine Yes [id number] 1{patch Apply 1 Univers mg/24 hr 2-23 } Patch to ity of patch 00:00: area(s) [place] 00 daily. Medical Apply 21mg Branch patch daily x 6 weeks; then apply 14mf patch daily x 2 weeks; then apply 7mg patch daily x 2 weeks. Stop smoking on initiation of therapy nicotine Yes [id number] 1{patch Apply 1 Univers mg/24 hr 2-23 } Patch to ity of patch 00:00: area(s) [place] 00 every 24 Medical (twenty-fo Branch ur) hours. Apply 21mg patch daily x 6 weeks; then apply 14mf patch daily x 2 weeks; then apply 7mg patch daily x 2 weeks. Stop smoking on initiation of therapy nicotine Yes [id number] 1{patch Apply 1 Univers mg/24 hr 2-23 } Patch to ity of patch 00:00: area(s) [place] 00 every 24 Medical (twenty-fo Branch ur) hours. Apply 21mg patch daily x 6 weeks; then apply 14mf patch daily x 2 weeks; then apply 7mg patch daily x 2 weeks. Stop smoking on initiation of therapy nicotine Yes [id number] 1{patch Apply 1 Univers mg/24 hr 2-23 } Patch to ity of patch 00:00: area(s) [place] 00 daily. Medical Apply 21mg Branch patch daily x 6 weeks; then apply 14mf patch daily x 2 weeks; then apply 7mg patch daily x 2 weeks. Stop smoking on initiation of therapy nicotine Yes [id number] 1{patch Apply 1 Univers mg/24 hr 2-23 } Patch to ity of patch 00:00: area(s) [place] 00 every 24 Medical (twenty-fo Branch ur) hours. Apply 21mg patch daily x 6 weeks; then apply 14mf patch daily x 2 weeks; then apply 7mg patch daily x 2 weeks. Stop smoking on initiation of therapy nicotine Yes [id number] 1{patch Apply 1 Univers mg/24 hr 2-23 } Patch to ity of patch 00:00: area(s) [place] 00 every 24 Medical (twenty-fo Branch ur) hours. Apply 21mg patch daily x 6 weeks; then apply 14mf patch daily x 2 weeks; then apply 7mg patch daily x 2 weeks. Stop smoking on initiation of therapy nicotine Yes [id number] 1{patch Apply 1 Univers mg/24 hr 2-23 } Patch to ity of patch 00:00: area(s) [place] 00 daily. Medical Apply 21mg Branch patch daily x 6 weeks; then apply 14mf patch daily x 2 weeks; then apply 7mg patch daily x 2 weeks. Stop smoking on initiation of therapy nicotine Yes [id number] 1{patch Apply 1 Univers mg/24 hr 2-23 } Patch to ity of patch 00:00: area(s) [place] 00 every 24 Medical (twenty-fo Branch ur) hours. Apply 21mg patch daily x 6 weeks; then apply 14mf patch daily x 2 weeks; then apply 7mg patch daily x 2 weeks. Stop smoking on initiation of therapy nicotine Yes [id number] 1{patch Apply 1 Univers mg/24 hr 2-23 } Patch to ity of patch 00:00: area(s) [place] 00 every 24 Medical (twenty-fo Branch ur) hours. Apply 21mg patch daily x 6 weeks; then apply 14mf patch daily x 2 weeks; then apply 7mg patch daily x 2 weeks. Stop smoking on initiation of therapy nicotine Yes [id number] 1{patch Apply 1 Univers mg/24 hr 2-23 } Patch to ity of patch 00:00: area(s) [place] 00 daily. Medical Apply 21mg Branch patch daily x 6 weeks; then apply 14mf patch daily x 2 weeks; then apply 7mg patch daily x 2 weeks. Stop smoking on initiation of therapy nicotine Yes [id number] 1{patch Apply 1 Univers mg/24 hr 2-23 } Patch to ity of patch 00:00: area(s) [place] 00 every 24 Medical (twenty-fo Branch ur) hours. Apply 21mg patch daily x 6 weeks; then apply 14mf patch daily x 2 weeks; then apply 7mg patch daily x 2 weeks. Stop smoking on initiation of therapy nicotine Yes [id number] 1{patch Apply 1 Univers mg/24 hr 2-23 } Patch to ity of patch 00:00: area(s) [place] 00 every 24 Medical (twenty-fo Branch ur) hours. Apply 21mg patch daily x 6 weeks; then apply 14mf patch daily x 2 weeks; then apply 7mg patch daily x 2 weeks. Stop smoking on initiation of therapy nicotine Yes [id number] 1{patch Apply 1 Univers mg/24 hr 2-23 } Patch to ity of patch 00:00: area(s) [place] 00 daily. Medical Apply 21mg Branch patch daily x 6 weeks; then apply 14mf patch daily x 2 weeks; then apply 7mg patch daily x 2 weeks. Stop smoking on initiation of therapy nicotine Yes [id number] 1{patch Apply 1 Univers mg/24 hr 2-23 } Patch to ity of patch 00:00: area(s) [place] 00 every 24 Medical (twenty-fo Branch ur) hours. Apply 21mg patch daily x 6 weeks; then apply 14mf patch daily x 2 weeks; then apply 7mg patch daily x 2 weeks. Stop smoking on initiation of therapy nicotine 7 2021-0 Yes [id number] 1{patch Apply 1 Univers mg/24 hr 2-23 } Patch to ity of patch 00:00: area(s) [place] 00 every 24 Medical (twenty-fo Branch ur) hours. Apply 21mg patch daily x 6 weeks; then apply 14mf patch daily x 2 weeks; then apply 7mg patch daily x 2 weeks. Stop smoking on initiation of therapy nicotine 21 2021-0 Yes [id number] 1{patch Apply 1 Univers mg/24 hr 2-23 } Patch to ity of patch 00:00: area(s) [place] 00 daily. Medical Apply 21mg Branch patch daily x 6 weeks; then apply 14mf patch daily x 2 weeks; then apply 7mg patch daily x 2 weeks. Stop smoking on initiation of therapy nicotine 14 0 Yes [id number] 1{patch Apply 1 Univers mg/24 hr 2-23 } Patch to ity of patch 00:00: area(s) [place] 00 every 24 Medical (twenty-fo Branch ur) hours. Apply 21mg patch daily x 6 weeks; then apply 14mf patch daily x 2 weeks; then apply 7mg patch daily x 2 weeks. Stop smoking on initiation of therapy clopidogreL 2021-0 Yes [id number] 75mg Take 1 Univers 75 mg 2-07 tablet by ity of tablet 00:00: mouth [place] 00 daily. Medical Branch clopidogreL 2021-0 Yes [id number] 75mg Take 1 Univers 75 mg 2-07 tablet by ity of tablet 00:00: mouth [place] 00 daily. Medical Branch clopidogreL 2021-0 Yes [id number] 75mg Take 1 Univers 75 mg 2-07 tablet by ity of tablet 00:00: mouth [place] 00 daily. Medical Branch clopidogreL 2021-0 Yes [id number] 75mg Take 1 Univers 75 mg 2-07 tablet by ity of tablet 00:00: mouth [place] 00 daily. Medical Branch clopidogreL 2021-0 Yes [id number] 75mg Take 1 Univers 75 mg 2-07 tablet by ity of tablet 00:00: mouth [place] 00 daily. Medical Branch clopidogreL 2021-0 Yes [id number] 75mg Take 1 Univers 75 mg 2-07 tablet by ity of tablet 00:00: mouth [place] 00 daily. Medical Branch clopidogreL 2021-0 Yes [id number] 75mg Take 1 Univers 75 mg 2-07 tablet by ity of tablet 00:00: mouth [place] 00 daily. Medical Branch atorvastati 2021-0 Yes [id number] 80mg Take 1 Univers n 80 mg 2-04 tablet ity of tablet 00:00: through [place] 00 enteral Medical tube at [place] bedtime. atorvastati 2021-0 Yes [id number] 80mg Take 1 Univers n 80 mg 2-04 tablet ity of tablet 00:00: through [place] enteral Medical tube at [place] bedtime. atorvastati 2021-0 Yes [id number] 80mg Take 1 Univers n 80 mg 2-04 tablet ity of tablet 00:00: through [place] enteral Medical tube at [place] bedtime. atorvastati 2021-0 Yes [id number] 80mg Take 1 Univers n 80 mg 2-04 tablet ity of tablet 00:00: through [place] enteral Medical tube at [facility]. atorvastati 2021-0 Yes [id number] 80mg Take 1 Univers n 80 mg 2-04 tablet ity of tablet 00:00: through [place] enteral Medical tube at [place] bedtime. atorvastati 2021-0 Yes [id number] 80mg Take 1 Univers n 80 mg 2-04 tablet ity of tablet 00:00: through [place] enteral Medical tube at [place] bedtime. atorvastati 2021-0 Yes [id number] 80mg Take 1 Univers n 80 mg 2-04 tablet ity of tablet 00:00: through [place] [facility]eral Medical [facility] [place] risperiDONE 2020-0 Yes 1mg Take 1 mg U nivers 1 mg tablet 9-15 by mouth 3 it y of 00:00: (three) [place] 00 times Medical daily. Branch risperiDONE 2020-0 Yes 1mg Take 1 mg U nivers 1 mg tablet 9-15 by mouth 3 it y of 00:00: (three) [place] 00 times Medical daily. Branch risperiDONE 2020-0 Yes 1mg Take 1 mg U nivers 1 mg tablet 9-15 by mouth 3 it y of 00:00: (three) [place] 00 times Medical daily. Branch risperiDONE 2020-0 Yes 1mg Take 1 mg U nivers 1 mg tablet 9-15 by mouth 3 it y of 00:00: (three) [place] 00 times Medical daily. Branch risperiDONE 2020-0 Yes 1mg Take 1 mg U nivers 1 mg tablet 9-15 by mouth 3 it y of 00:00: (three) [place] 00 times Medical daily. Branch risperiDONE 2020-0 Yes 1mg Take 1 mg U nivers 1 mg tablet 9-15 by mouth 3 it y of 00:00: (three) [place] 00 times Medical daily. Branch risperiDONE 2020-0 Yes 1mg Take 1 mg U nivers 1 mg tablet 9-15 by mouth 3 it y of 00:00: (three) [place] 00 times Medical daily. Branch Flonase Flonase Yes Na Gomes 2 spray in Common 05-23 each Spirit 00:00: nostril - [facility] 00 [facility] Immunizations Ordered Filled Immunization Date Status Comments [facility] e Immunization Name Name SARS-COV-2 COVID-19 2021-05-30 Completed Unive rsity of MODERNA VACCINE 00:00:00 [facility] SARS-COV-2 COVID-19 2021-05-30 Completed Unive rsity of MODERNA VACCINE 00:00:00 [facility] SARS-COV-2 COVID-19 2021-05-30 Completed Unive rsity of MODERNA VACCINE 00:00:00 [facility] SARS-COV-2 COVID-19 2021-05-30 Completed Unive rsity of MODERNA VACCINE 00:00:00 [facility] SARS-COV-2 COVID-19 2021-05-30 Completed Unive rsity of MODERNA VACCINE 00:00:00 [facility] SARS-COV-2 COVID-19 2021-05-30 Completed Unive rsity of MODERNA VACCINE 00:00:00 [facility] SARS-COV-2 COVID-19 2021-05-30 Completed Unive rsity of MODERNA VACCINE 00:00:00 [facility] SARS-COV-2 COVID-19 2021-03-18 Completed Unive rsity of MODERNA VACCINE 00:00:00 [facility] SARS-COV-2 COVID-19 2021-03-18 Completed Unive rsity of MODERNA VACCINE 00:00:00 [place] [facility] SARS-COV-2 COVID-19 2021-03-18 Completed Unive rsity of MODERNA VACCINE 00:00:00 [facility] ical Branch SARS-COV-2 COVID-19 2021-03-18 Completed Unive rsity of MODERNA VACCINE 00:00:00 [facility] ical Branch SARS-COV-2 COVID-19 2021-03-18 Completed Unive rsity of MODERNA VACCINE 00:00:00 [facility] ical Branch SARS-COV-2 COVID-19 2021-03-18 Completed Unive rsity of MODERNA VACCINE 00:00:[facility] COVID-19 2021-03-18 Completed Unive rsity of MODERNA VACCINE 00:00:00 [facility] SARS-[facility]OV[facility]2 COVID-19 2021-02-04 Completed Unive rsity of MODERNA VACCINE 00:00:00 [facility] SARS-COV-2 COVID-19 2021-02-04 Completed Unive rsity of MODERNA VACCINE 00:00:00 [facility] SARS-COV-2 COVID-19 2021-02-04 Completed Unive rsity of MODERNA VACCINE 00:00:00 [facility] SARS-COV-2 COVID-19 2021-02-04 Completed Unive rsity of MODERNA VACCINE 00:00:00 [facility] SARS-COV-2 COVID-19 2021-02-04 Completed Unive rsity of MODERNA VACCINE 00:00:00 [facility] SARS-COV-2 COVID-19 2021-02-04 Completed Unive rsity of MODERNA VACCINE 00:00:00 [facility] SARS-COV-2 COVID-19 2021-02-04 Completed Unive rsity of MODERNA VACCINE 00:00:00 [facility] Vital Signs Vital Name Observation Time Observation Value Comments Source Systolic blood 2022-03-25 15:27:00 116 mm[Hg] Univer sity of pressure [facility] Diastolic blood 2022-03-25 15:27:00 70 mm[Hg] Unive rsity of pressure [facility] Heart rate 2022-03-25 15:27:00 69 [facility] 2022-03-25 15:27:00 16 /min [facility] Body height 2022-03-25 15:27:00 180.3 cm [facility] Body weight 2022-03-25 15:27:00 78.926 kg [facility] BMI 2022-03-25 15:27:00 24.27 kg/m2 [facility] Oxygen saturation in 2022-03-25 15:27:00 96 /min [facility] Arterial blood by [facility] Pulse oximetry Branch Procedures Procedure Date / Time Performed Performing Clinician [facility] karen [id number] 2020-10-30 00:00:00 SPANI [facility] [id number] 2020-01-28 00:00:00 WEAMA.02 [facility] [id number] 2020-01-28 00:00:00 WEAMA.02 [facility] [id number] 2020-01-28 00:00:00 WEAMA.02 [facility] [id number] 2020-01-28 00:00:00 WEAMA.02 [facility] [id number] 2020-01-28 00:00:00 WEAMA.02 [facility] Plan of Care Planned Activity Planned Date Details Comments Source Future Scheduled Test COLON CANCER SCREENING: [facility] COLONOSCOPY [code = Medicine COLON CANCER SCREENING: COLONOSCOPY] Future Scheduled Test MEDICARE AWV [code = [facility] MEDICARE AWV] Medicine Future Scheduled Test TETANUS SHOT (ADULT) [facility] [code = TETANUS SHOT Medicin e (ADULT)] Future Scheduled Test HEPATITIS C SCREENING [facility] [code = HEPATITIS C Medicine SCREENING] Future Scheduled Test HIV SCREENING [code = [facility] HIV SCREENING] Medicine Future Scheduled Test FLU VACCINE > [address] [facility] [code = FLU VACCINE > 6 Medi cine MONTHS] Encounters Start End Encounter Admission Attending Care Care Encounter Source Date/Time Date/Time Type Type Clinicians Facility Department ID 2022-01-25 Outpatient [facility] [id number] [place] 11:56:[id number] [facility] 2022-01-19 Outpatient EVERETT [facility] [id number] [place] 03:16:[id number] [facility] 2022-01-18 Outpatient [facility] [id number] [place] 12:57:[id number] [facility] 2022-01-01 Outpatient EVERETT, [facility] [id number] [place] 15:24:[address] [facility] 2021-11-13 Outpatient [facility] [id number] [place] 15:22:56 [facility] 2021-11-12 Outpatient 3 [id number] ENCPL CVA ENCPL 10:42:58 1002 2021-11-12 Outpatient 3 [id number] ENCPL REF ENCPL 10:40:46 0927 2021-11-11 Outpatient Gomes, Na STLMLC STLMLC [id number] Common 11:17:41 [id number] [facility] 2021-11-11 Outpatient Gomes, Na STLMLC STLMLC [id number] Common 11:00:18 43030 [facility] 2021-11-11 Outpatient Gomes, Na STLMLC STLMLC [id number] Common 11:00:09 [id number] [facility] 2020-10-30 [facility]patient [facility] REGINALDO [id number] [facility] 12:19:[id number] [facility] 2020-01-28 Inpatient EL Gilbert, Mio [facility] [id number] [facility] 16:09:00 [id number] [facility] 2020-01-25 Inpatient EL Gilbert, Mio [facility] MEDI.01 [id number] [facility] 16:41:00 [facility] 2022-06-10 2022-06-10 Outpatient ANNY [facility] [id number] Univers 10:40:00 10:40:00 ALEA [id number] [facility] 2022-04-15 2022-04-15 Outpatient R LAURA [facility] [id number] Univers 00:00:00 00:00:00 SOLE [id number] [facility] [place] 2022-04-15 2022-04-15 Outpatient R LAURA [facility] [id number] Univers 00:00:00 00:00:00 SOLE [facility] [place] 2022-04-06 2022-04-06 [facility]phone [facility] [id number] Univers 00:00:00 00:00:00 Sole HANSEN [id number] i ty of [facility] 4.2.[place].2.[place] [phone] [facility] 044 [facility] 2022-04-06 2022-04-06 [facility] [id number] Univers 00:00:00 00:00:00 [facility] [id number] it y of [facility] 4.2.7.2.686 Joseph as ERICA?BLEA [id number] [address] 2022-04-06 2022-04-06 Telephone [facility] [id number] Univers 00:00:00 00:00:00 Lynette HANSEN [id number] ity of [facility] [id number] [phone] [facility] 231 [facility] 2022-04-05 2022-04-05 [facility] [id number] Univers 00:00:00 00:00:00 Sole HANS[place] [id number] i ty of [facility] [id number] [id number] [address] 2022-04-01 2022-04-01 [address]io[address].840.114 9 [id number] Univers 00:00:00 00:00:00 Sole HANS[place] [id number] i ty of [facility] [id number] [place] [id number] [address] 2022-03-29 2022-03-29 [facility] [id number] Univers 00:00:00 00:00:00 Sole HANS[place] [id number] i ty of [facility] [id number] [id number] [address] 2022-03-25 2022-03-25 Office Laura [facility] [id number] [facility] 10:40:00 11:50:35 Visit Sole HANSEN 350.1.13.10 i [place] 4.2.7.2.686 Nichole GALLEGOS [phone] Pa dical NAL 044 [facility] 2022-03-05 2022-03-05 Outpatient [id number] DISP DISP [id number] Dispatc 03:55:00 03:55:00 [facility] 2022-02-15 2022-02-15 Outpatient [id number] DISP DISP [id number] Dispatc 09:30:00 09:30:00 [facility] 2022-02-09 2022-02-09 Outpatient [id number] DISP DISP [id number]- Dispatc 04:40:00 04:40:00 [facility] 2022-02-09 2022-02-09 Outpatient Gustavo, DISP DISP [id number] 00:00:00 00:00:00 Susanneluz mariahipolito [id number] 2021-06-10 2021-06-10 Outpatient Zuniga_F [facility] [id number] [place] 09:20:00 09:20:00 [facility] 2021-06-03 2021-06-03 Outpatient A_Byrd [facility] [id number] [place] 10:29:00 10:29:00 [facility] 2020-10-31 2020-10-31 Outpatient Lucio, HCACL LABO [id number] [facility] 00:22:00 00:22:00 Oladipo [address] [facility] 2020-06-20 2020-06-20 Outpatient Shannan Campbellt [id number] Common 10:36:00 10:36:00 t Patientco [facility] Spiration [facility] 2020-05-23 2020-05-23 Outpatient Brazfior Campbellt [id number] Common 16:20:00 16:20:[address] [facility] 2020-05-23 2020-05-23 Outpatient [facility] [id number] Common 15:25:00 15:25:[address] [facility] 2020-01-28 2020-01-28 Outpatient DORIAN DotyNW REF [id number] [facility] 14:20:00 14:20:00 Cristopher [id number] [facility] 2020-01-01 2020-01-01 Outpatient [facility] [id number] Common 16:10:00 16:10:[address] [facility] 2019-12-26 2019-12-26 Outpatient [facility] [id number] Common 08:44:00 08:44:[address] [facility] 2019-12-05 2019-12-05 Outpatient [facility] [id number] Common 15:07:00 15:07:[address] [facility] 2019-09-24 2019-09-24 Outpatient [facility] [id number] Common 09:27:00 09:27:[address] [facility] 2019-09-06 2019-09-06 Outpatient [facility] [id number] Common 12:00:00 12:00:[address] [facility] 2019-08-18 2019-08-18 Outpatient [facility] [id number] Common 17:55:00 17:55:[address] [facility] 2019-08-01 2019-08-01 Outpatient [facility] [id number] Common 09:00:00 09:00:[address] [facility] 2019-06-07 2019-06-07 Outpatient [facility] [id number] Common 11:20:00 11:20:[address] [facility] 2019-01-04 2019-01-04 Outpatient [facility] [id number] Common 14:04:00 14:04:[address] [facility] 2018-11-23 2018-11-23 Outpatient [facility] [id number] Common 09:15:00 09:15:00 [facility] 2018-11-20 2018-11-20 Outpatient [facility] [id number] Common 10:13:00 10:13:[address] [facility] 2018-11-15 2018-11-15 Outpatient [facility] [id number] Common 15:15:00 15:15:[address] [facility] 2018-10-09 2018-10-09 Outpatient [facility] [id number] Common 10:19:00 10:19:[address] [facility] 2018-06-02 2018-06-02 Outpatient [facility] [id number] Common 16:46:00 16:46:[address] [facility] 2018-05-11 2018-05-11 Outpatient [facility] [id number] Common 09:45:00 09:45:[address] [facility] Results Test Description Test Time Test Comments Results Result Comments Source HOMOCYSTEINE PROFILE 2020-11-01 10:10:00 Test Item Value Reference Range Interpretation Comme nts HOMOCYSTEINE (test code = 15.3 umol/L 0.0-14.5 A Pe rformed At: HD [facility] HOMOCY) [id number] [place], [place] [id number] So MD Ph:[phone] [facility] RAPID PLASMA [id number] 06:11:00 Test Item Value Reference Range Interpretation Comments RAPID PLASMA REAGIN Non Reactive Non Reactive Performe d At: HD (test code = RPR) [facility] Ho [id number] [place], [place] [id number] jyoti So MD Ph:[phone] - CT HEAD/BRAIN W/O [id number] 14:36:00 [facility] 1960 Sex: M Name: OTONIEL HENDERSON [facility] : 1960 Age/S: 60 / M [id number] Unit #: [id number] Loc:[place] [address] Phys: Ximena Valdes MD Acct: [id number] Dis Date: Status: ADM IN PHONE #: [phone] Exam Date: 10/31/2020 1420 FAX #: Reason: CVA EXAMS: CPT: [id number] CT HEAD/BRAIN W/O CONT [id number] HISTORY: CVA. CT brain, unenhanced. Reformatted sagittal [...] CC: Ximena Valdes MD; Karen PHAM Navid Technologist:Lela Brunner, RT (R)(CT) CTDI: DLP: Trnscb Date/Time: 10/31/2020 (1436) [email or web address] Orig Print D/T: S: 10/31/2020 (5354) PAGE 1 Signed ReportSED [id number] 10:34:00 Test Item Value Reference Range Interpretation Comments SED RATE (test code = SEDW) 7 mm/hr 0-15 SED RATE [id number] 10:33:00 Test Item Value Reference Range Interpretation Comments SED RATE WESTERGREN (test code = 7 mm/hr 0-15 N SEDW) [id number] 07:00:00 Test Item Value Reference Range Interpretation Comments GLYCOSYLATED HEMOGLOBIN (HA1C) 5.5 % A1C 0.0-5.7 N (test code = GLYHGB) ESTIMATED AVERAGE GLUCOSE (test 111 MG/DLest code = EAG) BASIC METABOLIC [id number] 06:55:00 Test Item Value Reference Range Interpretation [...] WITHIN 1 HR AND FREEZE SERUM PROMPTLY.HOMOCYSTEINE [id number] 06:55:00 Test Item Value Reference Range Interpretation Comments HOMOCYSTEINE (test code = HOMOCY) mcMOL/L <9 Comment: FASTING IN AM PATIENT SHOULD BE FASTING OVERNIGHT 10-12 HRS. TAKE BLOOD TO LABASAP. MUST SEPAPATE SERUM FROM CELLS WITHIN 1 HR AND FREEZE SERUM PROMPTLY.CBC W/AUTO [id number] 06:41:00 Test Item Value Reference Range Interpretation [...] NO DIFF/SCN CRITERIA = MDIFF) GLUCOSE BEDSIDE [id number] 23:18:00 Test Item Value Reference Range Interpretation Comments GLUCOSE BEDSIDE TESTING (test code = 94 mg/dL 70-110 N GLUBED) COVID 19 INHOUSE [id number] 15:04:00 Test Item Value Reference Range Interpretation Comments COVID 19 INHOUSE AG NEGATIVE Negative Per manu facturer, (test code = negative result s should [id number]) be treated aspr esumptive and, if inconsi [...] with COVID-19. UA RFLX MICR CULT IF [id number] 14:02:00 Test Item Value Reference Range Interpretation [...] UACULT) Indication for culture: Dysuria/Frequency- CT ANGIO [id number] 13:00:00 [facility] 1960 Sex: M Name: OTONIEL HENDERSON [facility] : 1960 Age/S: 60 / M [id number] Unit #: [id number] Loc:[place] [address] Phys: Anjum Rivera MD Acct: [id number] Dis Date: Status: PRE ER PHONE #: [phone] Exam Date: 10/30/2020 1231 FAX #: Reason: slurred speech EXAMS: CPT: [id number] CT ANGIO NECK [id number]: - CT ANGIO HEAD, - CT ANGIO [...] Signed Report (CONTINUED) Name: OTONIEL HENDERSON [facility] : 1960 Age/S: 60 / M [id number] Unit #: [id number] Loc: [place] [address] Phys: Anjum Rivera MD Acct: [id number] Dis Date: Status: PRE ER PHONE #: [phone] Date: 10/30/2020 1235 FAX #: Reason: slurred speech EXAMS: CPT: [id number] ANGIO NECK 98755 <Continued> stenosis. Findings were personally discussed with [...] (1300) [email or web address] Orig Print D/T: S: 10/30/2020 (4021) PAGE 2 Signed Report- CT ANGIO [id number] 13:00:00 [facility] 1960 Sex: M Name: OTONIEL HENDERSON [facility] : 1960 Age/S: 60 / M [id number] Unit #: [id number] Loc:[place] [address] Phys: Anjum Rivera MD Acct: [id number] Dis Date: Status: PRE ER PHONE #: [phone] Exam Date: 10/30/2020 1233 FAX #: Reason: slurred speech EXAMS: CPT: [id number] CT ANGIO HEAD [id number]: - CT ANGIO HEAD, - CT ANGIO [...] 1 Signed Report (CONTINUED) Name: OTONIEL HENDERSON [place] : 1960 Age/S: 60 / M [id number] Unit #: [id number] Loc: [place] [address] Phys: Anjum Rivera MD Acct: [id number] Dis Date: Status: PRE ER PHONE #: [phone] Date: 10/30/2020 1233 FAX #: Reason: slurred speech EXAMS: CPT: [id number] ANGIO HEAD 20723 <Continued> stenosis. Findings were personally discussed with [...] RT(R)(CT); Kr CTDI: DLP: Trnscb Date/Time: 10/30/2020 (3316) [email or web address] Orig Print D/T: S: 10/30/2020 (9764) PAGE 2 Signed ReportBASIC METABOLIC [id number] 12:50:00 Test Item Value Reference Range Interpretation [...] 8.9 MG/DL 8.5-10.1 N Completed by Nursing: [id number] 12:50:00 Test Item Value Reference Range Interpretation [...] suman yby method. Completed by Nursing: NOPROTHROMBIN [id number] 12:47:00 Test Item Value Reference Range Interpretation Comments PT PATIENT (test code = PTP) 10.5 SECONDS 9.3-12.9 N INTERNATIONAL NORMAL RATIO 0.94 INR Unit 0.8-1.2 N (test code = INR) THROMBOPLASTIN TIME [id number] 12:47:00 Test Item Value Reference Range Interpretation Comments THROMBOPLASTIN TIME PARTIAL 27.9 SECONDS 26-35 N (test code = PTT) BASIC METABOLIC [id number] 12:43:00 Test Item Value Reference Range Interpretation [...] 8.9 MG/DL 8.5-10.1 N Completed by Nursing: [id number] 12:43:00 Test Item Value Reference Range Interpretation Comments TROPONIN-I (test code = TROPI) NG/ML 0.000-0.045 Completed by Nursing: NO- CT HEAD/BRAIN W/O [id number] 12:40:00 [facility] 1960 Sex: M Name: OTONIEL HENDERSON [facility] : 1960 Age/S: 60 / M [address] Unit #: [id number] Loc:Jerzy Gunn [address] Phys: Anjum Rivera MD Acct: [id number] Dis Date: Status: PRE ER PHONE #: [phone] Exam Date: 10/30/2020 1231 FAX #: Reason: Code Stroke EXAMS: CPT: [id number] CT HEAD/BRAIN W/O CONT [id number]: - CT HEAD/BRAIN W/O CONT. LOCATION: S17. [...] 1 Signed Report (CONTINUED) Name: OTONIEL HENDERSON [place] : 1960 Age/S: 60 / M [address] Unit #: [id number] Loc: [place] [address] Phys: Anjum Rivera MD Acct: [id number] Dis Date: Status: PRE ER PHONE #: [phone] Exam Date: 10/30/2020 1231 FAX #: Reason: Code Stroke EXAMS: CPT: [id number] CT HEAD/BRAIN W/O CONT 79559 <Continued> at 1240 Reported and signed by: Manjinder Antonio M.D. CC: Anjum Rivera MD Technologist:Yohan Love, RT(R)(CT); Kr CTDI: DLP: Trnscb Date/Time: 10/30/2020 (1240) [email or web address] Orig Print D/T: S: 10/30/2020 (4448) PAGE 2 Signed ReportCBC W/O [id number] 12:35:00 Test Item Value Reference Range Interpretation [...] 10.70 fL 7.0-9.6 H MPV) GLUCOSE BEDSIDE [id number] 12:29:00 Test Item Value Reference Range Interpretation Comments GLUCOSE BEDSIDE TESTING (test code 140 mg/dL 70-110 H = GLUBED) BASIC METABOLIC [id number] 06:50:00 Test Item Value Reference Range Interpretation [...] mg/dL 8.8-10.2 N = CA) CBC W/AUTO [id number] 06:40:00 Test Item Value Reference Range Interpretation [...] BA#) 0.07 x10 3/uL 0.0-0.20 N VANCOMYCIN [id number] 13:34:00 Test Item Value Reference Range Interpretation Comments VANCOMYCIN TROUGH (test code = 14.4 mcg/ML 10.0-20.0 N VANCT) Spec Comments: RN PLS DRAW VANCO 30MIN BEFORE DOSE DUE ON 01/30 BASIC METABOLIC [id number] 04:08:00 Test Item Value Reference Range Interpretation [...] code 8.8 mg/dL 8.8-10.2 N = CA) [id number] 04:08:00 Test Item Value Reference Range Interpretation Comments MAGNESIUM (test code = MAG) 1.7 mg/dL 1.4-2.6 N CBC W/AUTO [id number] 03:56:00 Test Item Value Reference Range Interpretation [...] 0.09 x10 3/uL 0.0-0.20 N BASIC METABOLIC [id number] 21:22:00 Test Item Value Reference Range Interpretation [...] mg/dL 8.8-10.2 N = CA) RENAL FUNCTION [id number] 21:22:00 Test Item Value Reference Range Interpretation Comments ALBUMIN (test code = ALB) 3.4 G/DL 3.5-5.0 L PHOSPHOROUS (test code = PHOS) 2.0 mg/dL 2.7-4.5 L LIVER FUNCTION [id number] 21:22:00 Test Item Value Reference Range Interpretation [...] = 63 U/L 45-120 N ALKP) LACTIC [id number] 21:18:00 Test Item Value Reference Range Interpretation Comments LACTIC ACID (test code = LACT) 9.4 mg/dL 4.5-18.0 N PROTHROMBIN [id number] 21:12:00 Test Item Value Reference Range Interpretation [...] 2.5-3.5recurren t systemic emboli sm. THROMBOPLASTIN TIME [id number] 21:12:00 Test Item Value Reference Range Interpretation Comments THROMBOPLASTIN TIME 28.6 SECONDS 26.0-35.9 N INTERPRE TATIVE PARTIAL (test code = DATA: erapeutic PTT) range: Unfractionated heparin:47 - 71 seconds Argatroban:1.5 to 3 times the basel ine PTT PROTHROMBIN [id number] 21:09:00 Test Item Value Reference Range Interpretation [...] 2.5-3.5recurren t systemic emboli sm. THROMBOPLASTIN TIME [id number] 21:09:00 Test Item Value Reference Range Interpretation Comments THROMBOPLASTIN TIME PARTIAL (test SECONDS 26.0-35.9 code = PTT) CBC W/AUTO [id number] 21:08:00 Test Item Value Reference Range Interpretation [...] 0.05 x10 3/uL 0.0-0.20 N CBC W/MANUAL [id number] 05:21:00 Test Item Value Reference Range Interpretation [...] code NORMAL NORMAL = PLTMORPH) RENAL FUNCTION [id number] 05:20:00 Test Item Value Reference Range Interpretation [...] 2.5 mg/dL 2.7-4.5 L code = PHOS) [id number] 05:20:00 Test Item Value Reference Range Interpretation Comments MAGNESIUM (test code = MAG) 1.8 mg/dL 1.4-2.6 N CBC W/MANUAL [id number] 04:48:00 Test Item Value Reference Range Interpretation [...] code = LYMPH) % 20.5-45.5 CBC W/MANUAL [id number] 04:48:00 Test Item Value Reference Range Interpretation [...] (test code = LYMPH) % 20.5-45.5 SURGICAL [id number] 12:52:00 RUN DATE: 01/29/20 [facility] - LAB PAGE 1 RUN TIME: 1252 Specimen Inquiry RUN USER: INTERFACE PATIENT: OTONIEL HENDERSON LOC: PJuliana7 POD C U #: [id number] AGE/SX: 59/M ROOM: [facility] RE01/25/20REG DR: Cristopher Doty MD : [birth year] BED: 1 DIS: STATUS: ADM IN TLOC: SPEC #: [id number] RECD: 01/28/20 STATUS: SOUT REQ #: [id number] SIMON: 01/28/[address] [facility] DR: Cristopher Doty MD ENTERED: 01/28/20 SP TYPE: SURG OTHR DR: Roxanna Primary or Family Physician Mio Gilbert MD,DocORDERED: PATHGM3, PATHGM5/2, PATH SPEC, H E STAIN HISTOLOGY: TISSUE ID BLK PCS PARISH LEV / PROCEDURE DISPOSITION ____ ___ ___ ___ ___ COLON SEG NTUMR A 18 1 TISSUES: A. 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 Signed SIGNATURE ON FILE Nita Ashford 01/29/20 1252 END OF REPORT BASIC METABOLIC [id number] 08:29:00 Test Item Value Reference Range Interpretation [...] code 9.2 mg/dL 8.8-10.2 N = CA) [id number] 08:29:00 Test Item Value Reference Range Interpretation Comments MAGNESIUM (test code = MAG) 1.3 mg/dL 1.4-2.6 L CBC W/AUTO [id number] 08:04:00 Test Item Value Reference Range Interpretation [...] x10 3/uL 0.0-0.20 N Novel Coronavirus 2018 [id number] 14:20:00 Test Item Value Reference Range Interpretation Comments Novel Coronavirus NEGATIVE Positive r esults are 2018 nCoV (test indicative o f the presence code = COVID19) [id number] RNA, clinical correlation wit h patient historyand [...] VERIFIEDbyP.LAB.RS, on 01/26/20, @ 1934.- XR ABDOMEN [id number] 14:18:00Patient Name: OTONIEL HENDERSON Unit No: [id number] EXAMS: CPT CODE: [id number] XR ABDOMEN 1V 74744 Abdomen one view supine 01/28/2020 CLINICAL INDICATION: [...] Dt/Tm: 01/28/2020 (1418) by:[email or web address] Printed Date/Time: 01/28/2020 (5928) Name: OTONIEL HENDERSON [facility] Phys: José Antonio Zamora MD [address] : 1960 Age: 59 Sex: [place] [address] Loc: P.0733 1 Exam Date: 01/28/2020 Status: ADM IN PH: FAX: PAGE 1 Signed ReportCOMPREHENSIVE METABOLIC [id number] 07:39:00 Test Item Value Reference Range Interpretation [...] 45-120 N PHOSPHATASE (test code = ALKP) [id number] 07:39:00 Test Item Value Reference Range Interpretation Comments MAGNESIUM (test code = MAG) 1.4 mg/dL 1.4-2.6 N CBC W/AUTO [id number] 07:12:00 Test Item Value Reference Range Interpretation [...] = BA#) 0.10 x10 3/uL 0.0-0.20 N [id number] 15:08:00 Test Item Value Reference Range Interpretation Comments LITHIUM (test 0.5 mmol/L 0.6-1.2 L code = LITH) Detection Limit = 0.1 <0.1 indicate s None DetectedPerform ed At: [facility] [address] [id number] So MD Ph:[phone] [id number] 15:08:00 Test Item Value Reference Range Interpretation Comments LITHIUM (test 0.5 mmol/L 0.6-1.2 L code = LITH) Detection Limit = 0.1 <0.1 indicate s None DetectedPerform ed At: [facility] [address] [id number] So MD Ph:[phone] Novel Coronavirus 2019 [id number] 07:11:00 Test Item Value Reference Range Interpretation [...] PHOSPHATASE (test code = ALKP) CBC W/AUTO [id number] 04:21:00 Test Item Value Reference Range Interpretation [...] 3/uL 0.0-0.20 N - CT ABD PELVIS [id number] 09:58:00Patient Name: OTONIEL HENDERSON Unit No: [id number] EXAMS: CPT CODE: [id number] CT ABD PELVIS W/CONT 27314 CT abdomen and pelvis with IV contrast. [...] renal cyst. Additional findings as above. [facility]: VARSHA. Norbert William MD [address] : 1960 Age: 59 Sex: M [place] [address] Loc: P.0723 1 Exam Date: 01/26/2020 Status: ADM IN PH: FAX: PAGE 1 Signed Report (CONTINUED) Patient Name: OTONIEL HENDERSON Unit No: [id number] EXAMS: CPT CODE: [id number] CT ABD PELVIS W/CONT 22300 <Continued> at 0958 Reported and signed by: OTONIEL ROSSI M.D. CC: Cristopher Doty MD; Norbert William MD Technologist: ANTONIO Martin(Jeannine)(CT) CTDI: 11.68 DLP: 602 Trscr Dt/Tm: 01/26/2020 (0958) by:[email or web address] Printed Date/Time: 01/26/2020 (1001)[facility] Phys: VARSHA Norbert William MD [address] : 1960 Age: 59 Sex: M [place] [address] Loc: P.0723 1 Exam Date: 01/26/2020 Status: ADM IN PH: FAX: PAGE 2 Signed ReportCOMPREHENSIVE METABOLIC [id number] 05:50:00 Test Item Value Reference Range Interpretation [...] PHOSPHATASE (test code = ALKP) CBC W/AUTO [id number] 04:55:00 Test Item Value Reference Range Interpretation [...] 0.15 x10 3/uL 0.0-0.20 N COMPREHENSIVE METABOLIC [id number] 18:44:00 Test Item Value Reference Range Interpretation [...] N PHOSPHATASE (test code = ALKP) PROTHROMBIN [id number] 18:32:00 Test Item Value Reference Range Interpretation [...] 2.5-3.5recurren t systemic emboli sm. CBC W/AUTO [id number] 18:26:00 Test Item Value Reference Range Interpretation [...]
[2022-04-09] MEDS ORDERED: MORPHINE 2 MG/ML SYR ONE (12:30)
[2022-04-09] MEDS ORDERED: NA CHLORIDE 0.9% 500 ML ONE ×2 (12:30→17:17)
[2022-04-09 12:42] LABS: Absolute Lymphocytes (CBC) 1.3 K/uL (0.7-4.9); Hematocrit 20.9 % (39.6-49.0); Lymphocytes % 9.5 % (15.3-44.8); MPV 9.2 fL (7.6-11.3); RBC Red Blood Cell Count 2.24 M/uL (4.33-5.43)
[2022-04-09 13:06] LABS: Albumin 3.2 g/dL (3.4-5.0); Bilirubin Total 0.2 mg/dL (0.2-1.0); Potassium 4.3 mmol/L (3.5-5.1); Protein, Total 6.1 g/dL (6.4-8.2)
--- NOTE | 2022-04-09 13:47 | EDPHYS ---
Physician Documentation [facility] Name: Gregory Dumont Age: 61 yrs Sex: Male : 1960 Arrival Date: 04/09/2022 Time: 12:13 Bed 13 Private MD: ED Physician Cameron Avery HPI: 04/09 12:24 This 61 yrs old Male presents to ER via EMS with complaints of Abdominal Pain, rn Nausea/Vomiting/Diarrhea. 12:24 The patient presents to the emergency department with nausea, diarrhea, abdominal pain. rn Onset: The symptoms/episode began/occurred this morning. Possible causes: unknown. The symptoms are aggravated by pressure, The symptoms are alleviated by nothing. Associated signs and symptoms: Pertinent positives: abdominal pain, diarrhea, nausea, Pertinent negatives: fever, GI bleeding. Severity of symptoms: At their worst the symptoms were moderate in the emergency department the symptoms are unchanged. The patient has not experienced similar symptoms in the past. The patient has not recently seen a physician. 12:24 reports woke up this AM with nausea and diarrhea, as well as abd pain. 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 + generalized weakness. No appetite. states at baseline mentally, has left sided weakness and aphasia from previous stroke. . Historical: - Allergies: 12:15 No Known Allergies; ld1 - PMHx: 12:15 adhd; Anxiety; Bipolar disorder; Hypertensive disorder; strokes x 3; ld1 - PSHx: 12:15 colon resection; knee replacements; ld1 - Immunization history:: Adult Immunizations up to date, Client reports having NOT received the Covid vaccine. - Social history:: Smoking status: Patient reports the use of cigarette tobacco products, smokes one-half pack cigarettes per day, Patient/guardian denies using alcohol. - Family history:: not pertinent. - Hospitalizations: : No recent hospitalization is reported. ROS: 12:24 Constitutional: Negative for fever, chills, and weight loss, Eyes: Negative for injury, rn pain, redness, and discharge, Cardiovascular: Negative for chest pain, palpitations, and edema, Respiratory: Negative for shortness of breath, cough, wheezing, and pleuritic chest pain, Abdomen/GI: + abd pain/nausea/diarrhea Back: Negative for injury and pain, MS/Extremity: Negative for injury and deformity, Skin: Negative for injury, rash, and discoloration, Neuro: Negative for headache, numbness, tingling, and seizure. Exam: 12:24 Constitutional: This is a well developed, well nourished patient who is awake, alert, rn and in no acute distress. Head/Face: Normocephalic, atraumatic. Cardiovascular: Regular rate and rhythm. No pulse deficits. Respiratory: No increased work of breathing, no retractions or nasal flaring. Abdomen/GI: soft, + tender right and lower abd quadrants Skin: Warm, dry MS/ Extremity: Pulses equal, no cyanosis. Neuro: Awake and alert, GCS 15, oriented to person, place, time, and situation. Vital Signs: 12:13 BP 105 / 59; Pulse 81; Resp 22; Temp 97.6(O); Pulse Ox 100% on R/A; Weight 77.11 kg; ld1 Height 5 ft. 11 in. (180.34 cm); Pain 7/10; 13:00 BP 106 / 67; Pulse 81; Resp 18; Pulse Ox 100% on R/A; ld1 14:30 BP 110 / 66; Pulse 81; Resp 18; Pulse Ox 100% ; ld1 16:08 BP 109 / 66; Pulse 77; Resp 18; Pulse Ox 100% on R/A; Pain 8/10; ld1 17:25 BP 109 / 72; Pulse 87; Resp 15; Pulse Ox 99% on R/A; ld1 17:55 BP 111 / 69; Pulse 87; Resp 24; Pulse Ox 100% on R/A; ld1 12:13 Body Mass Index 23.71 (77.11 kg, 180.34 cm) ld1 MDM: 12:13 Patient medically screened. rn 13:45 Differential diagnosis: Nonspecific abd pain, gastritis, appendicitis, viral rn gastroenteritis, gastroenteritis, GI Bleed. Data reviewed: vital signs, nurses notes, lab test result(s), and as a result, I will admit patient. Counseling: I had a detailed discussion with the patient and/or guardian regarding: the historical points, exam findings, and any diagnostic results supporting the discharge/admit diagnosis, lab results, the need to transfer to another facility, for higher level of care, [facility] does not immediately have the required specialist. 04/09 12:13 Order name: CBC with Diff; Complete Time: 13:31 rn 06/24 12:13 Order name: CMP; Complete Time: 13:31 rn 04/09 12:13 Order name: Lipase; Complete Time: 13:31 rn 04/09 12:14 Order name: SARS-COV-2 RT PCR (Document "Date of Onset" if Symptomatic); Complete Time: rn 14:27 04/09 13:32 Order name: Type And Screen rn 04/09 13:37 Order name: Bb Add On eb 04/09 12:13 Order name: CT Abd/Pelvis - IV Contrast Only; Complete Time: 15:59 rn 04/09 13:46 Order name: Packed RBC Leukored EDTN 04/09 15:13 Order name: Urine Dipstick-Ancillary; Complete Time: 15:29 EDTN 04/09 16:49 Order name: ABO/RH no charge; Complete Time: 17:34 EDTN 04/09 12:13 Order name: IV Saline Lock; Complete Time: 12:21 rn 04/09 12:13 Order name: Labs collected and sent; Complete Time: 12:34 rn 04/09 12:13 Order name: Urine Dipstick-Ancillary (obtain specimen); Complete Time: 15:09 rn Administered Medications: 12:28 Drug: morphine 2 mg Route: IVP; Infused Over: 4 mins; Site: left antecubital; ld1 12:29 Drug: NS 0.9% 500 ml Route: IV; Rate: bolus; Site: left antecubital; ld1 15:09 Drug: ProTONIX (pantoprazole) 40 mg Route: IVP; Site: right antecubital; ld1 15:09 Drug: ProTONIX (pantoprazole) 8 mg/hr Route: IV; Rate: 25 ml/hr; Site: right ld1 antecubital; 16:08 Drug: fentaNYL (PF) 50 mcg Route: IVP; Site: right antecubital; ld1 Point of Care Testing: Guaiac: 13:45 Stool Guaiac: Positive; Stool Hemoccult Control: Pass; rn Disposition Summary: 04/09/22 13:47 Transfer Ordered Transfer Location: [facility] rn Reason: Higher level of care rn Condition: Stable rn Problem: new rn Symptoms: are unchanged rn Accepting Physician: (04/09/22 18:26) ld1 Diagnosis - GI Bleed/ Gastrointestinal hemorrhage, unspecified rn Forms: - Medication Reconciliation Form rn - SBAR form rn Signatures: Dispatcher [employer] EDCameron Bran MD MD rn Dibbern, Lauren, RN RN ld1 Corrections: (The following items were deleted from the chart) 18:26 13:47 Dr. lynn ld1
--- NOTE | 2022-04-09 13:47 | ER ---
Nurse's Notes [facility] Name: Gregory Dumont Age: 61 yrs Sex: Male : 1960 Arrival Date: 04/09/2022 Time: 12:13 Bed 13 Private MD: Diagnosis: GI Bleed/ Gastrointestinal hemorrhage, unspecified Presentation: 04/09 12:13 Chief complaint: Patient states: N/V/D - Left shoulder/arm pain, RLQ pain. Coronavirus ld1 screen: At this time, the client does not indicate any symptoms associated with coronavirus-19. Ebola Screen: No symptoms or risks identified at this time. Initial Sepsis Screen: Does the patient meet any 2 criteria? No. Patient's initial sepsis screen is negative. Does the patient have a suspected source of infection? No. Patient's initial sepsis screen is negative. Risk Assessment: Do you want to hurt yourself or someone else? Patient reports no desire to harm self or others. Onset of symptoms was April 09, 2022. 12:13 Method Of Arrival: EMS: [facility] ld1 12:13 Acuity: MARION 3 ld1 Triage Assessment: 12:15 General: Appears in no apparent distress. comfortable, Behavior is calm, cooperative, ld1 appropriate for age. Pain: Complains of pain in right lower quadrant Pain does not radiate. Pain currently is 5 out of 10 on a pain scale. EENT: No signs and/or symptoms were reported regarding the EENT system. Neuro: Level of Consciousness is awake, alert, obeys commands, Oriented to person, place, time, situation. Cardiovascular: Capillary refill < 3 seconds Patient's skin is warm and dry. Respiratory: Airway is patent Respiratory effort is even, unlabored. GI: Abdomen is flat, non-distended, Reports lower abdominal pain. GI: Reports diarrhea, nausea, vomiting. : No signs and/or symptoms were reported regarding the genitourinary system. Derm: No signs and/or symptoms reported regarding the dermatologic system. Musculoskeletal: No signs and/or symptoms reported regarding the musculoskeletal system. Historical: - Allergies: 12:15 No Known Allergies; ld1 - PMHx: 12:15 adhd; Anxiety; Bipolar disorder; Hypertensive disorder; strokes x 3; ld1 - PSHx: 12:15 colon resection; knee replacements; ld1 - Immunization history:: Adult Immunizations up to date, Client reports having NOT received the Covid vaccine. - Social history:: Smoking status: Patient reports the use of cigarette tobacco products, smokes one-half pack cigarettes per day, Patient/guardian denies using alcohol. - Family history:: not pertinent. - Hospitalizations: : No recent hospitalization is reported. Screenin:18 Abuse screen: Denies threats or abuse. Denies injuries from another. Nutritional ld1 screening: No deficits noted. Tuberculosis screening: No symptoms or risk factors identified. Fall Risk None identified. Assessment: 12:18 Reassessment: See triage assessment. ld1 14:00 Reassessment: Patient appears in no apparent distress at this time. No changes from ld1 previously documented assessment. Patient and/or family updated on plan of care and expected duration. Pain level reassessed. 15:00 Reassessment: Patient appears in no apparent distress at this time. Patient and/or ld1 family updated on plan of care and expected duration. Pain level reassessed. Patient is alert, oriented x 3, equal unlabored respirations, skin warm/dry/pink. Pt reporting pain. Notified ERP. See [facility] for orders. 16:30 Reassessment: Patient appears in no apparent distress at this time. Patient and/or ld1 family updated on plan of care and expected duration. Pain level reassessed. Patient is alert, oriented x 3, equal unlabored respirations, skin warm/dry/pink. 17:25 Reassessment: Patient appears in no apparent distress at this time. PRBC transfusion ld1 initiated. 18:23 Reassessment: No changes from previously documented assessment. Patient denies pain at ld1 this time. Patient states symptoms have improved. 18:24 Reassessment: Patient appears in no apparent distress at this time. Patient and/or ld1 family updated on plan of care and expected duration. Pain level reassessed. Patient is alert, oriented x 3, equal unlabored respirations, skin warm/dry/pink. EMS at bedside - transferring pt to [facility], infusion continued during transfer. 18:25 GI: Bowel sounds present X 4 quads. Abd is soft Abdomen is tender to palpation X 4 ld1 quads. Vital Signs: 12:13 BP 105 / 59; Pulse 81; Resp 22; Temp 97.6(O); Pulse Ox 100% on R/A; Weight 77.11 kg; ld1 Height 5 ft. 11 in. (180.34 cm); Pain 7/10; 13:00 BP 106 / 67; Pulse 81; Resp 18; Pulse Ox 100% on R/A; ld1 14:30 BP 110 / 66; Pulse 81; Resp 18; Pulse Ox 100% ; ld1 16:08 BP 109 / 66; Pulse 77; Resp 18; Pulse Ox 100% on R/A; Pain 8/10; ld1 17:25 BP 109 / 72; Pulse 87; Resp 15; Pulse Ox 99% on R/A; ld1 17:55 BP 111 / 69; Pulse 87; Resp 24; Pulse Ox 100% on R/A; ld1 12:13 Body Mass Index 23.71 (77.11 kg, 180.34 cm) ld1 ED Course: 12:13 Patient arrived in ED. ld1 12:13 Cameron Avery MD is Attending Physician. rn 12:15 Triage completed. ld1 12:15 Arm band placed on right wrist. ld1 12:18 Patient has correct armband on for positive identification. Placed in gown. Bed in low ld1 position. Call light in reach. Side rails up X2. vehicle monitor technician on. Pulse ox on. NIBP on. Door closed. Noise minimized. Warm blanket given. 12:18 No provider procedures requiring assistance completed. Maintain EMS IV. Dressing ld1 intact. Good blood return noted. Site clean \\T\\ dry. Gauge \\T\\ site: 20G LFA. 12:28 SARS-COV-2 RT PCR (Document "Date of Onset" if Symptomatic) Sent. ld1 12:30 Zamzam Yeung, NIKI is Primary Nurse. ld1 15:09 Type And Screen Sent. ld1 15:14 Bb Add On Sent. mb7 15:33 CT Abd/Pelvis - IV Contrast Only In Process Unspecified. EDMS 16:02 initiated a transfer with Mazin Rascon from the [facility]. eb 16:[address] Rodriguez the hospitalist furniture lumber production worker for [facility] with Dr. Avery for eb patient transfer consultation. 16:47 administrative approval given by Mazin Rascon/ patient has been accepted to [facility] B523/ Dr. Rodriguez has accepted the patient in transfer/ report to be called to the transfer center at [phone]. 18:26 Patient transferred, IV remains in place. ld1 Administered Medications: 12:28 Drug: morphine 2 mg Route: IVP; Infused Over: 4 mins; Site: left antecubital; ld1 12:29 Drug: NS 0.9% 500 ml Route: IV; Rate: bolus; Site: left antecubital; ld1 15:09 Drug: ProTONIX (pantoprazole) 40 mg Route: IVP; Site: right antecubital; ld1 15:09 Drug: ProTONIX (pantoprazole) 8 mg/hr Route: IV; Rate: 25 ml/hr; Site: right ld1 antecubital; 16:08 Drug: fentaNYL (PF) 50 mcg Route: IVP; Site: right antecubital; ld1 Medication: 12:18 VIS not applicable for this client. ld1 Point of Care Testing: Guaiac: 13:45 Stool Guaiac: Positive; Stool Hemoccult Control: Pass; rn Outcome: 13:47 ER care complete, transfer ordered by . rn 18:26 Transferred by ground EMS to [facility]. ld1 18:26 Condition: stable 18:26 Instructed on the need for transfer. 18:26 Patient left the ED. ld1 Signatures: Dispatcher [employer] Cameron Narvaez MD MD rn Botello, Elizabeth eb Dibbern, Lauren, RN RN ld1 Elaine Morgan 7
[2022-04-09] MEDS ORDERED: PANTOPRAZOLE 40 MG INJ ONE (13:52)
[2022-04-09] MEDS ORDERED: NA CHLORIDE 0.9% 250 ML ONE (13:53)
[2022-04-09 15:13] LABS: Urine Blood Negative (Negative); Urine Glucose Negative (Negative); Urine Protein Negative (Negative); Urine Specific Gravity 1.015 (1.005-1.030)
--- NOTE | 2022-04-09 15:57 | RAD REPORT ---
EXAM DESCRIPTION: CT - Abdomen Pelvis W Contrast - 04/09/2022 3:32 pm CLINICAL HISTORY: Abdominal pain, acute, nonlocalized COMPARISON: Abdomen Pelvis W Contrast dated 03/02/2022 TECHNIQUE: Biphasic, helical CT imaging of the abdomen and pelvis was performed following 100 ml non -ionic IV contrast. Oral contrast was given. All CT scans are performed using dose optimization technique as appropriate and may include automated exposure control or mA/KV adjustment according to patient size. FINDINGS: No suspicious findings in the lung bases. The liver, spleen, and pancreas show no suspicious findings. Gallbladder and biliary tree are also wi thout suspicious finding. Symmetric renal function is seen with no hydronephrosis or suspicious renal mass. No pyelonephritis o r acute parenchymal process. Patient has bilateral 2-7 mm sized nonobstructing calyx calculi. No blad naty calculi seen. Numerous pelvic floor phleboliths are present. No adrenal abnormalities. No bladder wall thickening or mass. No bladder calculi present. No dilated bowel loops or bowel wall thickening. Two moderate-sized diverticula seen in the distal du odenum. There is some motion degradation limiting the examination. An acute GI process is not suspect ed. No free air, free fluid or inflammatory stranding. No mass or bulky lymphadenopathy. Bilateral fat filled small inguinal hernias are present. A 10 mm umbilical hernia seen. Disc and bone degenerative changes are present. No acute or pathologic bone process seen. Advanced L5 -S1 disc and endplate degenerative changes are present. Slightly less prominent but still significant L4-5 degenerative disc disease seen. Dense arterial calcifications are present. IMPRESSION: CT abdomen and pelvis imaging shows no acute or emergent finding. Dense vascular calcifications present for patient age. Mesenteric ischemia not suspected. Advanced for age of lower lumbar L4-S1 degenerative disc disease.
[2022-04-09] MEDS ORDERED: FENTANYL CITR 100 MCG/2 ML ONE (15:59)
[2022-04-09 18:51] VITALS: TEMP 97.6
[2022-04-09 18:58] VITALS: BP 111/69; O2SAT 100
== END 2022-04-09 18:26 | disposition short-term general hospital (02) ==
LOC: ER 12:04
PROC: 30233N1 Transfusion of Nonautologous Red Blood Cells into Peripheral Vein, Percutaneous Approach (ICD-10-PCS; principal; 2022-04-09)
DX: K92.2 Gastrointestinal hemorrhage, unspecified (principal); I10 Essential (primary) hypertension; F17.210 Nicotine dependence, cigarettes, uncomplicated; Z20.822 Contact with and (suspected) exposure to COVID-19
CPT/HCPCS: 85025; 36415; 86900; 86850; 86901; 81003; 83690; 80053; 74177; 99285; 36430; U0003; Q9967; C9113; J3010; J2270; P9016; J7050; J7040 ×2

== ENCOUNTER 2022-04-28 17:12 | Emergency (ER) | payer OTHER | END 2022-04-28 18:23 | disposition left against medical advice (07) | LOC: ER 17:12 | DX: Z02.9 Encounter for administrative examinations, unspecified (principal) ==

== ENCOUNTER 2022-06-28 16:33 | Observation (INO) | payer OTHER ==
--- OUTSIDE RECORDS SUMMARY | 2022-06-28 16:40 | XMS REPORT | Continuity of Care Document ---
:1960 Author Organization [facility] t Address [address] [place] [address] Support Name Relationship Address Phone ANY HENDERSON Spouse [id number] [place] [address] ALBERTO HENDERSON Spouse [id number] Unavailable [address] [place] [address] Family, Family Family/Other [address] [place] [address] UN Unavailable Unavailable Unavailable Any Henderson Spouse [address] [address] MICHELLE HENDERSON [phone] [place] [address] ALBERTO HENDERSON Spouse [address] [place] [address] MACEYLENNYALBERTO Unavailable [address] [phone] [place] [address] PHYSICIAN, NO Primary Care Physician Unavailable Unavailab mohamud JAMES MD [facility] Emergency Provider [address] [place] [address] ANY HENDERSON Unavailable [address] [place] [address] BEATRIZ ANY Unavailable [address] [place] [address] MD ROCHELLE CORDOVA JR Admitting Provider [address] [place] [address] ALBERTO HENDERSON X [address] [place] [address] MARY Yang Unavailable Mary Reno Sibling Unavailable NO EMERGENCY, CONTACT Unavailable [address] [facility] [place] [address] Care Team Providers Name Role Phone Pcp-None Primary Care Physician Unavailable MARIA VICTORIA FLOYD Attending Clinician Unavailable [id number] Attending Clinician Unavailable Lucy Gomes Attending Clinician Unavailable Mio Gilbert Attending Clinician Unavailable SOLE SANCHEZ Attending Clinician Unavailable JAMES MENDES Attending Clinician Unavailable Sole Sanchez MD Attending Clinician [facility] Attending Clinician SUMEET CAMARENA Attending Clinician Unavailable ONELIA BERMAN Attending Clinician Unavailable Erickson Abraham Attending Clinician Unavailable JODI BRIAN Attending Clinician Unavailable [email or web address] Attending Clinician Unavailable KIRA GOODWIN Attending Clinician Unavailable Russ Rodriguez MD Attending Clinician Otoniel Crain MD Attending Clinician Kira Goodwin MD Attending Clinician Khoa Castro DO Attending Clinician [phone] Leonardo Abarca MD Attending Clinician Yohan Smith CRNA Attending Clinician [phone] RUSS RODRIGUEZ Attending Clinician Unavailable Brianda Chen Attending Clinician [phone] LATASHA SANTILLAN Attending Clinician Unavailable NIKKI BRAVO Attending Clinician Unavailable NIKKI BRAVO Attending Clinician Unavailable Zuniga_F Attending Clinician Unavailable A_Byrd Attending Clinician Unavailable Ximena Valdes Attending Clinician Unavailable Cristopher Doty Attending Clinician Unavailable [id number] Admitting Clinician Unavailable Mio Gilbert Admitting Clinician Unavailable SOLE SANCHEZ Admitting Clinician Unavailable Alexa Flores Admitting Clinician Unavailable [email or web address] Admitting Clinician Unavailable OTONIEL CRAIN Admitting Clinician Unavailable Zuniga_F Admitting Clinician Unavailable A_Byrd Admitting Clinician Unavailable Physician, No Primary or Family Admitting Clinician Unavaila ble Payers Payer Name Policy Type Policy Number Effective Date Expiration Date S [facility] [id number] 2018 STARPLUS OON EXCEPT 00:00:00 [facility] [place] MEDICAID [id number] 2021 00:00:00 [employer]/UHC DUAL [id number] 2022 COMP HMO D SNP 00:00:00 [employer] - [id number] 2021 [facility] 00:00:00 (MEDICARE REPLACEMENT/ADVANTA GE - HMO) [employer] MEDICARE [id number] 2021 00:00:00 [facility] STAR [id number] 2022 PLAN 00:00:00 [facility] - AARP - [id number] 2021 MEDICARE SOLUTIONS 00:00:00 - MEDICARE COMPLETE (MEDICARE REPLACEMENT HMO) MEDICAID [facility] [place] [id number] 2017 2018 00:00:00 00:00:00 MEDICARE PART A \\T\\ [id number] 2021 B 00:00:00 00:00:00 [place]: [id number] [place] [facility] [id number] 2020 COMMUNITY PLAN - 00:00:00 [place] STAR PLUS (MEDICAID HMO) Problems Condition Condition Condition Status Onset Resolution Last Treating Co mments Source Name Details Category Date Date Treatment Clinician Date Dehydratio Dehydratio Disease Active U nivers n n 8-30 ity of 00:00: Medical Branch Anxiety, Anxiety, Disease Active Unive rs generalize generalize 8-30 it y of d d 00:00: Medical Branch Bipolar Bipolar Disease Active Univers disorder disorder 8-30 ity of without without 00:00: [place] psychotic psychotic 00 Medi diogenes features features Branch Migraine Migraine Disease Active Unive rs equivalent equivalent 8-12 it y of syndrome syndrome 00:00: Medical Branch Vision Vision Disease Active Univers changes changes 8-12 ity of 00:00: Medical Branch Primary Primary Disease Active Univers insomnia insomnia 8-12 ity of 00:00: [place] Medical Branch Duodenal Duodenal Disease Active Unive rs ulcer ulcer 7-07 ity of 00:00: Medical Branch Chronic Chronic Disease Active Univers left left 7-07 ity of shoulder shoulder 00:00: [place] pain pain 00 Medical Branch Chronic Chronic Disease Active Univers pain pain 7-07 ity of syndrome syndrome 00:00: Medical Branch GI bleed GI bleed Disease [facility] Scabies Scabies Disease Active Univers exposure exposure 6-09 ity of 00:00: Medical Branch Stress Stress Disease Active Univers reaction reaction 5-18 ity of with with 00:00: [place] psychomoto psychomoto 00 Me dical r r Branch agitation agitation Anger Anger Disease Active Univers reaction reaction 5-18 ity of 00:00: Medical Branch Aphasia as Aphasia as Disease Active U nivers late late 5-18 ity of effect of effect of 00:00: Nichole norman stroke stroke 00 Medical Branch Cellulitis Cellulitis Disease Active U nivers , , 5-18 ity of abdominal abdominal 00:00: Nichole norman wall wall 00 Medical Branch ADHD ADHD [...] kidney 3-24 ity of injury) injury) 00:00: 00 Medical Branch Hospital [facility] Disease Active Unive rs discharge discharge 3-23 ity of follow-up [place]up 00:[place] Hypotensio Hypotensio Disease Active U nivers n n 3-23 ity of 00:00: Medical Branch Orthostati Orthostati Disease Active U nivers c syncope c syncope 3-23 ity of 00:00: [place] 00 Medical [...] annual 2-08 ity of wellness wellness 00:00: [place] visit, visit, 00 Medical initial initial Branch Essential Essential Disease Active Uni vers hypertensi hypertensi 2-04 it y of on on 00:00: [place] 00 Medical Branch Nicotine Nicotine Disease Active Unive rs dependence dependence 2-04 it y of with with 00:00: [place] current current 00 Medical use use Branch Chronic Chronic Disease Active Univers bilateral bilateral 2-04 ity of low back low back 00:00: [place] pain with pain with 00 Medi diogenes bilateral bilateral Bran ch sciatica sciatica Prediabete Prediabete Disease Active U nivers s s 2-04 ity of 00:00: [place] 00 Medical Branch Cerebral Cerebral Disease Active Unive rs infarction infarction 2-04 it y of involving involving 00:00: [place] left left 00 Medical middle middle Branch cerebral cerebral artery artery Pulmonary Pulmonary Disease Active Uni vers embolism, embolism, 6-05 ity of bilateral bilateral 00:[place] Ischemic Ischemic Disease Active Unive rs cerebrovas cerebrovas 9-24 it y of cular cular 00:00: [place] accident accident 00 Medica l (CVA) of (CVA) of Branch frontal frontal lobe lobe Chest pain Chest pain Disease Active U [...] Status Status Disease Active 2015-10 Univers post post 0-24 ity of bilateral bilateral 00:[place] knee 00 Medical replacemen replacemen Br anch ts ts Bilateral Bilateral Disease Active Uni vers chronic chronic 9-20 ity of knee pain knee pain 00:[place] Cerebral Cerebral Disease Active Overview: Un cecile thrombosis thrombosis 3-17 Formattin ity of 00:00: g of this [place] 00 note Medical might be Branch different from the original. 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 Folliculit Folliculit Problem Active C ommon is is [facility] Arthritis Arthritis Problem Active Com mon [facility] Bipolar 1 Bipolar 1 Problem Active Com mon disorder disorder [facility] Mixed Mixed Problem Active Common hyperlipid hyperlipid Sp kyle emia emia [facility] Pure Pure Problem Active Common hyperchole hyperchole Sp kyle sterolemia sterolemia - [facility] Primary Primary Problem Active Common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 Sp kyle itis is - [facility] involving involving St multiple [facility] joints joints Medical Center Smoker Smoker Problem Active Common [facility] Essential Essential Problem Active Com mon hypertensi hypertensi Sp kyle on on - [facility] Other Other Problem Active Common chronic chronic Spirit pain pain - [facility] Irritabili Irritabili Problem Active C ommon ty and ty and Spirit anger anger - [facility] Elevated Elevated Problem Active Commo n blood blood Spirit pressure pressure - [facility] reading reading [facility] without [facility] diagnosis diagnosis Medi diogenes of of Center hypertensi hypertensi on on Encounter Encounter Problem Active Com mon for for Spirit tobacco tobacco - [facility] use use [facility] counseling counseling Ut dicia Center Mild Mild Problem Active Common memory memory Spirit disturbanc disturbanc - CHI e e [facility] Paresthesi Paresthesi Problem Active C ommon a of skin a of skin Spir it [facility] Otalgia of Otalgia of Problem Active C ommon left ear left ear [facility] Dementia Dementia Problem Active Commo n in other in other Spirit diseases diseases - [facility]I classified classified [facility] without without Medical behavioral behavioral Ce nter disturbanc disturbanc e e Impacted Impacted Problem Active Commo n cerumen of cerumen of Sp kyle left ear left ear - [facility] Alzheimer' Alzheimer' Problem Active C ommon 's 's Spirit disease, disease, - [facility]I unspecifie unspecifie [facility] d d [facility] 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Commo n dysfunctio dysfunctio Sp kyle n, n, - [facility]I unspecifie unspecifie [facility] d erectile d erectile Greta kes dysfunctio dysfunctio Me dical n type n type Center Hypoglycem Hypoglycem Problem Active C ommon ia ia Spirit - [facility] Simple Simple Problem Active Common chronic chronic Spirit bronchitis bronchitis - [facility] Nicotine Nicotine Problem Active Commo n dependence dependence Sp kyle , , - [facility]I cigarettes cigarettes St , , [facility] uncomplica uncomplica Me dical mann mann Center Primary Primary Problem Active 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 [facility] Seasonal Seasonal Diagnosis Active Com mon allergic allergic Spirit rhinitis, rhinitis, - CH I unspecifie unspecifie St d trigger d [facility] Allergies, Adverse Reactions, Alerts Allergy Allergy Status Severity Reaction(s) Onset Inactive Treating Comm ents Source Name Type Date Date Clinician No Known DA Active U [facility] Drug 8-04 Allergie 00:00: s 00 No Known DA Active U [facility] Allergie 1-14 [facility] 00:00: Patel 00 [facility] No Known DA Active U [facility] Allergie 1-14 [facility] 00:00: Pat[place] 00 [facility] No Known DA Active U 0 [facility] Allergie 4-10 [place] 00:00: Health 00 are [facility] No Known DA Active U 0 [facility] Allergie 4-10 [place] 00:00: Health 00 are [facility] NO KNOWN Drug Active Univers ALLERGIE Class ity of S [facility] NO KNOWN Allergy Active [facility] Social History Social Habit Start Date Stop Date Quantity Comments Source History SDOH [facility] Alcohol Std Drinks Medica l Center History SDOH [facility] Alcohol Binge Medical Eric ter History SDOH [facility] Alcohol Comment Medical C enter History of tobacco Cigar Smoker Univ ersity of use [facility] Alcohol intake 2022-04-10 2022-04-[address] [facility] 00:[facility] 00:00:00 non-drinker Medical Ilirelayne r (finding) Tobacco use and 2022-04-09 2022-04-[address] [facility] kes exposure 00:00:00 00:00:00 Medical Center History SDOH 2022-04-09 2022-04-[address] [facility] Alcohol Frequency 00:00:00 00:00:00 Medical Center Cigarettes smoked 2021-07-23 2021-07-23 Univers ity of current (pack per 00:00:00 00:00:00 [facility] ) - Reported Branch Cigarette 2021-07-23 2021-07-23 University of pack-years 00:00:00 00:00:00 [facility] Education 2021-03-21 2021-03-21 14 University of 00:00:00 00:00:00 [facility] Sex [birth year] At [birth year] HERIBERTO Brand 00:00:00 00:00:00 [facility] Smoking Status Start Date Stop Date Source Unknown if ever smoked [facility] Never smoker [facility] Occasional tobacco smoker 2021-07-23 00:00:00 Un iversity of [facility] Medications Ordered Filled Start Stop Current Ordering Indication Dosage Frequency Signature Comments Components Source Medication Medication Date Date Medication? Clinician (SIG) Name Name GABAPENTIN Yes [id number] TAKE 1 Univers 400 mg 9-07 CAPSULE BY ity of capsule 00:00: MOUTH [place] [address] THREE Medical TIMES Branch DAILY GABAPENTIN Yes [id number] TAKE 1 Univers 400 mg 9-07 CAPSULE BY ity of capsule 00:00: MOUTH [place] [address] THREE Medical TIMES Branch DAILY amLODIPine 2021-0 Yes [id number] 2.5mg Take 0.5 Univers 5 mg tablet 8-30 tablets by it y of 00:00: mouth in [place] [address] the Medical morning. Branch amLODIPine 2021-0 Yes [id number] 2.5mg Take 0.5 Univers 5 mg tablet 8-30 tablets by it y of 00:00: mouth in [place] [address] the Medical morning. Branch amLODIPine 2021- Yes [id number] 2.5mg Take 0.5 Univers 5 mg tablet 8-30 tablets by it y of 00:00: mouth in [place] 00 the Medical morning. Branch amLODIPine Yes [id number] 2.5mg Take 0.5 Univers 5 mg tablet 8-30 tablets by it y of 00:00: mouth in [place] 00 the Medical morning. Branch butalbital- Yes [id number] 1{tbl} Take 1 Univers aspirin-caf 8-12 tablet by ity of feine per 00:00: mouth [place] tablet 00 every 6 Medical (six) Branch hours as needed for Pain. butalbital- Yes [id number] 1{tbl} Take 1 Univers aspirin-caf 8-12 tablet by ity of feine per 00:00: mouth [place] tablet 00 every 6 Medical (six) Branch hours as needed for Pain. butalbital- Yes [id number] 1{tbl} Take 1 Univers aspirin-caf 8-12 tablet by ity of feine per 00:00: mouth [place] tablet 00 every 6 Medical (six) Branch hours as needed for Pain. butalbital- Yes [id number] 1{tbl} Take 1 Univers aspirin-caf 8-12 tablet by ity of feine per 00:00: mouth [place] tablet 00 every 6 Medical (six) Branch hours as needed for Pain. ATORVASTATI Yes [id number] GIVE 1 Univers N 80 mg 8-01 TABLET ity of tablet 00:00: THROUGH [place] 00 ENTERAL Medical TUBE AT Branch BEDTIME ATORVASTATI 0 Yes [id number] GIVE 1 Univers N 80 mg 8-01 TABLET ity of tablet 00:00: THROUGH [place] 00 ENTERAL Medical TUBE AT Branch BEDTIME ATORVASTATI 0 Yes [id number] GIVE 1 Univers N 80 mg 8-01 TABLET ity of tablet 00:00: THROUGH [place] ENTERAL Medical TUBE AT [place] BEDTIME ATORVASTATI 0 Yes [id number] GIVE 1 Univers N 80 mg 8-01 TABLET ity of tablet 00:00: THROUGH [place] 00 ENTERAL Medical TUBE AT Branch BEDTIME acetaminoph 2021-0 Yes [id number] 650mg Take 1 Univers en (TYLENOL 7-07 [id number] tablet by i ty of ARTHRITIS 00:00: mouth [place] PAIN) 650 00 every 8 Medical mg CR (eight) Branch tablet hours as needed for Pain. Diclofenac 2022-0 Yes [id number] Apply to Univers Sodium 7-07 [id number] area(s) 4 ity of (VOLTAREN) 00:00: (four) [place] 1 % gel 00 times Medical daily. Branch Apply 4 g qid Lidocaine 5 2021-0 Yes [id number] Apply to Univers % cream 7-07 [id number] area(s) 2 ity o f 00:00: (two) [place] 00 times Medical daily as Branch needed for Pain (scale 4-6). Apply 5g to affected areas BID PRN acetaminoph 2021-0 Yes [id number] 650mg Take 1 Univers en (TYLENOL 7-07 [id number] tablet by i ty of ARTHRITIS 00:00: mouth [place] PAIN) 650 00 every 8 Medical mg CR (eight) Branch tablet hours as needed for Pain. Diclofenac 2021-0 Yes [id number] Apply to Univers Sodium 7-07 [id number] area(s) 4 ity of (VOLTAREN) 00:00: (four) [place] 1 % gel 00 times Medical daily. Branch Apply 4 g qid Lidocaine 5 2021-0 Yes [id number] Apply to Univers % cream 7-07 [id number] area(s) 2 ity o f 00:00: (two) [place] 00 times Medical daily as Branch needed for Pain (scale 4-6). Apply 5g to affected areas BID PRN acetaminoph 2021-0 Yes [id number] 650mg Take 1 Univers en (TYLENOL 7-07 [id number] tablet by i ty of ARTHRITIS 00:00: mouth [place] PAIN) 650 00 every 8 Medical mg CR (eight) Branch tablet hours as needed for Pain. Diclofenac 2021-0 Yes [id number] Apply to Univers Sodium 7-07 [id number] area(s) 4 ity of (VOLTAREN) 00:00: (four) [place] 1 % gel 00 times Medical daily. Branch Apply 4 g qid Lidocaine 5 2021-0 Yes [id number] Apply to Univers % cream 7-07 [id number] area(s) 2 ity o f 00:00: (two) [place] 00 times Medical daily as Branch needed for Pain (scale 4-6). Apply 5g to affected areas BID PRN acetaminoph 2-0 Yes [id number] 650mg Take 1 Univers en (TYLENOL 7-07 [id number] tablet by i ty of ARTHRITIS 00:00: mouth [place] PAIN) 650 00 every 8 Medical mg CR (eight) Branch tablet hours as needed for Pain. Diclofenac Yes [id number] Apply to Univers Sodium 04-22 [id number] area(s) 4 ity of (VOLTAREN) 00:00: (four) [place] 1 % gel 00 times Medical daily. Branch Apply 4 g qid Lidocaine 5 0 Yes [id number] Apply to Univers % cream 04-22 [id number] area(s) 2 ity o f 00:00: (two) [place] 00 times Medical daily as Branch needed for Pain (scale 4-6). Apply 5g to affected areas BID PRN gabapentin 0 Yes 100mg [id number] Take [address] (NEURONTIN) 6-26 [id number] mg by L ukes 100 MG 11:44: 3D mouth 3 Medical capsule 44 (three) Center times daily. atorvastati 0 Yes 40mg QD Take [address] n (LIPITOR) 6-26 by mouth Luke s 40 MG 11:44: daily. Medical tablet 44 Center pantoprazol Yes Univer s e 40 mg EC 6-26 ity of tablet 00:00: [place] [facility] Branch pantoprazol 2021-0 Yes Univer s e 40 mg EC 6-26 ity of tablet 00:00: [place] [facility] Branch pantoprazol 2021-0 Yes Univer s e 40 mg EC 6-26 ity of tablet 00:00: [place] [facility] Branch pantoprazol 2021-0 Yes Univer s e 40 mg EC 6-26 ity of tablet 00:00: [place] [facility] Branch pantoprazol 2021-0 2021- No 40mg Q.5D Take [address] e 6-26 07-26 tablet (40 [facility] (PROTONIX) 00:00: 23:59 mg total) M edical 40 MG 00 :00 by mouth 2 Center tablet (two) times daily for 30 days. gabapentin 0 Yes [id number] 400mg Take 1 Univers 400 mg 6-14 capsule by ity of capsule 00:00: mouth 3 [place] 00 (three) Medical times Branch daily. traMADoL 0 Yes [id number] 1{tbl} Take 1 Univers 100 mg Tab 6-14 tablet by ity of 00:00: mouth 3 [place] 00 (three) Medical times Branch daily as needed for Pain (scale 7-10). traMADoL 2021-0 Yes [id number] 1{tbl} Take 1 Univers 100 mg Tab 6-14 tablet by ity of 00:00: mouth 3 [place] 00 (three) Medical times Branch daily as needed for Pain (scale 7-10). traMADoL 2021-0 Yes [id number] 1{tbl} Take 1 Univers 100 mg Tab 6-14 tablet by ity of 00:00: mouth 3 [place] 00 (three) Medical times Branch daily as needed for Pain (scale 7-10). traMADoL 2021-0 Yes [id number] 1{tbl} Take 1 Univers 100 mg Tab 6-14 tablet by ity of 00:00: mouth 3 [place] 00 (three) Medical times Branch daily as needed for Pain (scale 7-10). gabapentin 2021-2021- No [id number] 400mg Take 1 Univers 400 mg 6-14 -07 capsule by ity of capsule 00:00: 00:00 mouth 3 [place] 00 :00 (three) Medical times Branch daily. ALBUTEROL 0 Yes 8.5g Inhale 8.5 Un cecile INHALE 6-09 g every 4 ity of 10:27: (four) [place] [address] hours. Medical Branch atomoxetine 0 Yes 40mg Take 40 mg Univers 40 mg 6-09 by mouth ity of capsule 10:27: daily. [place] [address] Medical Branch traZODone 2021-0 Yes 150mg Take 150 Uni vers 100 mg 6-09 mg by ity of tablet 10:27: mouth at [place] [address] bedtime. Medical Branch duloxetine 0 Yes 30mg Take 30 mg U nivers HCl 6-09 by mouth ity of (DULOXETINE 10:27: at [facility]) bedtime. Medical Branch ALBUTEROL 2021-0 Yes 8.5g Inhale 8.5 Un cecile INHALE 6-09 g every 4 ity of 10:27: (four) [place] [address] hours. Medical Branch atomoxetine 2021-0 Yes 40mg Take 40 mg Univers 40 mg 6-09 by mouth ity of capsule 10:27: daily. [place] [address] Medical Branch traZODone 2021-0 Yes 150mg Take 150 Uni vers 100 mg 6-09 mg by ity of tablet 10:27: mouth at [place] [address] bedtime. Medical Branch duloxetine 2022-0 Yes 30mg Take 30 mg U nivers HCl 6-09 by mouth ity of (DULOXETINE 10:27: at [place] ORAL) 17 bedtime. Medical Branch ALBUTEROL 2-0 Yes 8.5g Inhale 8.5 Un cecile INHALE 6-09 g every 4 ity of 10:27: (four) [place] 17 hours. Medical Branch atomoxetine 2022-0 Yes 40mg Take 40 mg Univers 40 mg 6-09 by mouth ity of capsule 10:27: daily. [place] [address] Medical Branch traZODone 2022-0 Yes 150mg Take 150 Uni vers 100 mg 6-09 mg by ity of tablet 10:27: mouth at [place] [address] bedtime. Medical Branch duloxetine 2022-0 Yes 30mg Take 30 mg U nivers HCl 6-09 by mouth ity of (DULOXETINE 10:27: at [place] ORAL) 17 bedtime. Medical Branch ALBUTEROL 2-0 Yes 8.5g Inhale 8.5 Un cecile INHALE 6-09 g every 4 ity of 10:27: (four) [place] 17 hours. Medical Branch atomoxetine 2-0 Yes 40mg Take 40 mg Univers 40 mg 6-09 by mouth ity of capsule 10:27: daily. [place] [address] Medical Branch traZODone 2022-0 Yes 150mg Take 150 Uni vers 100 mg 6-09 mg by ity of tablet 10:27: mouth at [place] [address] bedtime. Medical Branch duloxetine 2-0 Yes 30mg Take 30 mg U nivers HCl 6-09 by mouth ity of (DULOXETINE 10:27: at [place] ORAL) 17 bedtime. Medical Branch permethrin 2022-0 Yes [id number] Apply to Univers 5 % cream 6- [id number] area(s) ity o f 00:00: daily. [place] 00 Apply to Medical body from Branch neck down x 8 - 14 H, then wash off. permethrin 2022-0 Yes [id number] Apply to Univers 5 % cream 6- [id number] area(s) ity o f 00:00: daily. [place] 00 Apply to Medical body from Branch neck down x 8 - 14 H, then wash off. permethrin 2022-0 Yes [id number] Apply to Univers 5 % cream 6- [id number] area(s) ity o f 00:00: daily. [place] 00 Apply to Medical body from Branch neck down x 8 - 14 H, then wash off. permethrin Yes [id number] Apply to Univers 5 % cream 03-25 [id number] area(s) ity o f 00:00: daily. [place] 00 Apply to Medical body from Branch neck down x 8 - 14 H, then wash off. sildenafil Yes [id number] 20mg Take 1 Univers (REVATIO) 4-06 tablet by ity o f 20 mg 00:00: mouth as [place] tablet 00 needed Medical (Take 1 Branch tablet by mouth as needed (Erectile Dsyfynctio n). Take 1 Take 30 mins prior to being intimate. Do not exceed 40mg in 24H. Do not mix with any other medication ). sildenafil Yes [id number] 20mg Take 1 Univers (REVATIO) 4-06 tablet by ity o f 20 mg 00:00: mouth as [place] tablet 00 needed Medical (Take 1 Branch tablet by mouth as needed (Erectile Dsyfynctio n). Take 1 Take 30 mins prior to being intimate. Do not exceed 40mg in 24H. Do not mix with any other medication ). sildenafil Yes [id number] 20mg Take 1 Univers (REVATIO) 4-06 tablet by ity o f 20 mg 00:00: mouth as [place] tablet 00 needed Medical (Take 1 Branch tablet by mouth as needed (Erectile Dsyfynctio n). Take 1 Take 30 mins prior to being intimate. Do not exceed 40mg in 24H. Do not mix with any other medication ). sildenafil Yes [id number] 20mg Take 1 Univers (REVATIO) 4-06 tablet by ity o f 20 mg 00:00: mouth as [place] tablet 00 needed Medical (Take 1 Branch tablet by mouth as needed (Erectile Dsyfynctio n). Take 1 Take 30 mins prior to being intimate. Do not exceed 40mg in 24H. Do not mix with any other medication ). nicotine 7 Yes [id number] 1{patch Apply 1 Univers mg/24 hr 2-23 } Patch to ity of patch 00:00: area(s) [place] 00 every 24 Medical (twenty-fo Branch ur) hours. Apply 21mg patch daily x 6 weeks; then apply 14mf patch daily x 2 weeks; then apply 7mg patch daily x 2 weeks. Stop smoking on initiation of therapy nicotine Yes [id number] 1{patch Apply 1 Univers mg/24 hr 2-23 } Patch to ity of patch 00:00: area(s) [place] 00 daily. Medical Apply 21mg Branch patch daily x 6 weeks; then apply 14mf patch daily x 2 weeks; then apply 7mg patch daily x 2 weeks. Stop smoking on initiation of therapy nicotine Yes [id number] 1{patch Apply 1 Univers mg/24 hr 2-23 } Patch to ity of patch 00:00: area(s) [place] 00 every 24 Medical (twenty-fo Branch ur) hours. Apply 21mg patch daily x 6 weeks; then apply 14mf patch daily x 2 weeks; then apply 7mg patch daily x 2 weeks. Stop smoking on initiation of therapy nicotine Yes [id number] 1{patch Apply 1 Univers mg/24 hr 2-23 } Patch to ity of patch 00:00: area(s) [place] 00 every 24 Medical (twenty-fo Branch ur) hours. Apply 21mg patch daily x 6 weeks; then apply 14mf patch daily x 2 weeks; then apply 7mg patch daily x 2 weeks. Stop smoking on initiation of therapy nicotine Yes [id number] 1{patch Apply 1 Univers mg/24 hr 2-23 } Patch to ity of patch 00:00: area(s) [place] 00 daily. Medical Apply 21mg Branch patch daily x 6 weeks; then apply 14mf patch daily x 2 weeks; then apply 7mg patch daily x 2 weeks. Stop smoking on initiation of therapy nicotine Yes [id number] 1{patch Apply 1 Univers mg/24 hr 2-23 } Patch to ity of patch 00:00: area(s) [place] 00 every 24 Medical (twenty-fo Branch ur) hours. Apply 21mg patch daily x 6 weeks; then apply 14mf patch daily x 2 weeks; then apply 7mg patch daily x 2 weeks. Stop smoking on initiation of therapy nicotine Yes [id number] 1{patch Apply 1 Univers mg/24 hr 2-23 } Patch to ity of patch 00:00: area(s) [place] 00 every 24 Medical (twenty-fo Branch ur) hours. Apply 21mg patch daily x 6 weeks; then apply 14mf patch daily x 2 weeks; then apply 7mg patch daily x 2 weeks. Stop smoking on initiation of therapy nicotine Yes [id number] 1{patch Apply 1 Univers mg/24 hr 2-23 } Patch to ity of patch 00:00: area(s) [place] 00 daily. Medical Apply 21mg Branch patch daily x 6 weeks; then apply 14mf patch daily x 2 weeks; then apply 7mg patch daily x 2 weeks. Stop smoking on initiation of therapy nicotine Yes [id number] 1{patch Apply 1 Univers mg/24 hr 2-23 } Patch to ity of patch 00:00: area(s) [place] 00 every 24 Medical (twenty-fo Branch ur) hours. Apply 21mg patch daily x 6 weeks; then apply 14mf patch daily x 2 weeks; then apply 7mg patch daily x 2 weeks. Stop smoking on initiation of therapy nicotine Yes [id number] 1{patch Apply 1 Univers mg/24 hr 2-23 } Patch to ity of patch 00:00: area(s) [place] 00 every 24 Medical (twenty-fo Branch ur) hours. Apply 21mg patch daily x 6 weeks; then apply 14mf patch daily x 2 weeks; then apply 7mg patch daily x 2 weeks. Stop smoking on initiation of therapy nicotine Yes [id number] 1{patch Apply 1 Univers mg/24 hr 2-23 } Patch to ity of patch 00:00: area(s) [place] 00 daily. Medical Apply 21mg Branch patch daily x 6 weeks; then apply 14mf patch daily x 2 weeks; then apply 7mg patch daily x 2 weeks. Stop smoking on initiation of therapy nicotine Yes [id number] 1{patch Apply 1 Univers mg/24 hr 2-23 } Patch to ity of patch 00:00: area(s) [place] 00 every 24 Medical (twenty-fo Branch ur) hours. Apply 21mg patch daily x 6 weeks; then apply 14mf patch daily x 2 weeks; then apply 7mg patch daily x 2 weeks. Stop smoking on initiation of therapy clopidogreL Yes [id number] 75mg Take 1 Univers 75 mg 2-07 tablet by ity of tablet 00:00: mouth [place] 00 daily. Medical Branch clopidogreL 2021-0 Yes [id number] 75mg Take 1 Univers 75 mg 2-07 tablet by ity of tablet 00:00: mouth [place] 00 daily. Medical Branch clopidogreL 2021-0 Yes [id number] 75mg Take 1 Univers 75 mg 2-07 tablet by ity of tablet 00:00: mouth [place] 00 daily. Medical Branch clopidogreL 2021-0 Yes [id number] 75mg Take 1 Univers 75 mg 2-07 tablet by ity of tablet 00:00: mouth [place] 00 daily. Medical Branch risperiDONE 2020-0 Yes 1mg Take 1 mg U nivers 1 mg tablet 9-15 by mouth 3 it y of 00:00: (three) [place] 00 times Medical daily. Branch risperiDONE 0 [...] Spirit 00:00: nostril - [facility] 00 [facility] Immunizations Ordered Filled Immunization Date Status Comments [facility] Branch e Immunization Name Name SARS-COV-2 COVID-19 2021-05-30 Completed Unive rsity of MODERNA 12+ YRS 00:00:00 [place] Med ical VACCINE Branch SARS-COV-2 COVID-19 2021-05-30 Completed Unive rsity of MODERNA 12+ YRS 00:00:00 [place] Med ical VACCINE Branch SARS-COV-2 COVID-19 2021-05-30 Completed Unive rsity of MODERNA 12+ YRS 00:00:00 [place] Med ical VACCINE Branch SARS-COV-2 COVID-19 2021-05-30 Completed Unive rsity of MODERNA 12+ YRS 00:00:00 [place] Med ical VACCINE Branch SARS-COV-2 COVID-19 2021-03-18 Completed Unive rsity of MODERNA 12+ YRS 00:00:00 [place] Med ical VACCINE Branch SARS-COV-2 COVID-19 2021-03-18 Completed Unive rsity of MODERNA 12+ YRS 00:00:00 [place] Med ical VACCINE Branch SARS-COV-2 COVID-19 2021-03-18 Completed Unive rsity of MODERNA 12+ YRS 00:00:00 [place] Med ical VACCINE Branch SARS-COV-2 COVID-19 2021-03-18 Completed Unive rsity of MODERNA 12+ YRS 00:00:00 [place] Med ical VACCINE Branch SARS-COV-2 COVID-19 2021-02-04 Completed Unive rsity of MODERNA 12+ YRS 00:00:00 [place] Med ical VACCINE Branch SARS-COV-2 COVID-19 2021-02-04 Completed Unive rsity of MODERNA 12+ YRS 00:00:00 [place] Med ical VACCINE Branch SARS-COV-2 COVID-19 2021-02-04 Completed Unive rsity of MODERNA 12+ YRS 00:00:00 [place] Med ical VACCINE Branch SARS-COV-2 COVID-19 2021-02-04 Completed Unive rsity of MODERNA 12+ YRS 00:00:00 [place] Med ical VACCINE Branch Vital Signs Vital Name Observation Time Observation Value Comments Source HEIGHT 2022-04-09 20:00:00 180.3 cm WEIGHT 2022-04-09 20:00:00 80.65 kg HEIGHT 2022-04-09 20:00:00 180.3 cm WEIGHT 2022-04-09 20:00:00 80.65 kg HEIGHT 2022-04-09 20:00:00 180.3 cm WEIGHT 2022-04-09 20:00:00 80.65 kg Systolic blood 2022-04-11 07:17:00 138 mm[Hg] [facility] Diastolic blood 2022-04-11 07:17:00 69 mm[Hg] [facility] Heart rate 2022-04-11 07:17:00 81 /min [facility] Body temperature 2022-04-11 07:17:00 36.28 Terri [facility] Respiratory rate 2022-04-11 07:17:00 18 /min [facility] Oxygen saturation in 2022-04-11 07:17:00 95 /min [facility] Arterial blood by Medical Ce nter Pulse oximetry Body height 2022-04-09 20:00:00 180.3 cm [facility] Body weight 2022-04-09 20:00:00 80.65 kg [facility] BMI 2022-04-09 20:00:00 24.80 kg/m2 [facility] Procedures Procedure Date / Time Performing Source Performed Clinician PREPARE LEUKO-REDUCED RBC 2022-04-[address] [facility] 23:54:00 [facility] CBC W/PLT COUNT & AUTO 2022-04-11 Otoniel Crain [facility] DIFFERENTIAL 03:48:00 [facility] CBC W/PLT COUNT & AUTO 2022-04-11 Otoniel Crain [facility] DIFFERENTIAL 03:48:00 [facility] BASIC METABOLIC PANEL (7) 2022-04-[address] [facility] 03:48:00 [facility] HEPATIC FUNCTION PANEL 2022-04-11 Otoniel Crain [facility] 03:48:00 [facility] REPORT OF PROCEDURE - ENDOSCOPY 2022-04-10 Khoa Castro [facility] URL 12:42:42 [facility] ESOPHAGOGASTRODUODENOSCOPY 2022-04-10 Khoa Castro [facility]areth 12:33:00 [facility] TRANSFUSE LEUKO-REDUCED RED BLOOD 2022-04-10 Ootniel Crain [facility] [place] CELLS 07:00:00 [facility] BASIC METABOLIC PANEL (7) 2022-04-[address] [facility] 04:54:00 [facility] HEPATIC FUNCTION PANEL 2022-04-10 Otoniel Crain [facility] 04:54:00 [facility] CBC W/PLT COUNT & AUTO 2022-04-10 BreannOtoniel diaz [facility] DIFFERENTIAL 04:54:00 [facility] CBC W/PLT COUNT & AUTO 2022-04-[address] [facility] [facility] DIFFERENTIAL 04:54:00 [facility] ABORH, MANUAL 2022-04-[address] [facility] 01:23:00 [facility] BRAIN WITHOUT IV CONTRAST 2022-04-09 Breann, Otoniel [facility] 23:05:00 [facility] BASIC METABOLIC PANEL (7) 2022-04-09 Breann, Otoniel [facility] 22:27:00 [facility] HEPATIC FUNCTION PANEL 2022-04-09 Breann, Otoniel [facility] 22:27:00 [facility] MAGNESIUM 2022-04-09 Breann, Otoniel [facility] 22:27:00 [facility] PHOSPHORUS 2022-04-09 Breann, Otoniel [facility] 22:27:00 [facility] PROTHROMBIN TIME/INR 2022-04-09 Breann[facility]toniel [facility] 22:27:00 [facility] CBC W/PLT COUNT & AUTO 2022-04-09 Breann, Otoniel [facility] DIFFERENTIAL 22:27:00 [facility] TYPE AND SCREEN, AUTOMATED 2022-04-09 Breann, Otoniel [facility] 22:27:00 [facility] CBC W/PLT COUNT & AUTO 2022-04-09 Breann, Otoniel [facility] DIFFERENTIAL 22:27:00 [facility] [id number] 2020-10-[address] [facility] 00:00:00 Medical Center [id number] 2020-01-28 WEAMA.02 [facility] 00:00:00 [facility] [id number] 2020-01-28 WEAMA.02 [facility] 00:00:00 [facility] [id number] 2020-01-28 WEAMA.02 [facility] 00:00:00 [facility] [place] [facility] [id number] 2020-01-28 WEAMA.02 [facility] 00:00:00 [facility] [id number] 2020-01-28 WEAMA.02 [facility] 00:00:00 [facility] Plan of Care Planned Activity Planned Date Details Comments Source Future Scheduled 2022-06-17 INFLUENZA VACCINE (#1) [facility] 00:[facility]:00 [code = INFLUENZA Medical Ce nter VACCINE (#1)] Future Scheduled 2021-10-[address] [facility] 00:00:00 (12+) [code = Medical Center DEPRESSION SCREENING (12+)] Future Scheduled 2021-10-17 Medicare IPPE (WELCOME [facility] 00:00:00 TO MEDICARE) [code = Medical Center Medicare IPPE (WELCOME TO MEDICARE)] Future Scheduled 2012 SHINGLES VACCINES ([address] [facility] 00:00:00 2) [code = SHINGLES Medical Center VACCINES (1 of 2)] Future Scheduled 1997 Lipid panel (procedure) [facility] 00:00:00 [code = 43128674] Medical Ce nter Future Scheduled 1981 DTAP/TDAP/TD VACCINES [facility] 00:00:00 (1 - Tdap) [code = Medical C enter DTAP/TDAP/TD VACCINES (1 - Tdap)] Future Scheduled 1980 HEPATITIS C [facility]CRE[facility]ING [facility] 00:00:00 [code = HEPATITIS C Medical Center SCREENING] Future Scheduled 1962 COVID-19 VACCINE (#1) [facility] 00:00:00 [code = COVID-[address] VACCINE (#1)] Future Scheduled 1962 CT Colonography (combo) [facility] 00:00:00 [code = CT Colonography [facility] (combo)] Future Scheduled 1962 Screening for malignant [facility] Test 00:00:00 neoplasm of colon Medical Ce nter (procedure) [code = 299426032] Future Scheduled 1962 Screening for malignant [facility] Test 00:00:00 neoplasm of colon Medical Ce nter (procedure) [code = 561915518] Future Scheduled 1962 Screening for malignant [facility] Test 00:00:00 neoplasm of colon Medical Ce nter (procedure) [code = 532337622] Future Scheduled 1962 Screening for malignant [facility] Test 00:00:00 neoplasm of colon Medical Ce nter (procedure) [code = 251238522] Future Scheduled 1962 Sigmoidoscopy [code = [facility] 00:00:00 Sigmoidoscopy] Medical Cente r Future Scheduled COLON CANCER SCREENING: [facility] COLONOSCOPY [code = Medicine COLON CANCER SCREENING: COLONOSCOPY] Future Scheduled MEDICARE AWV [code = [facility] MEDICARE AWV] Medicine Future Scheduled TETANUS SHOT (ADULT) [facility] [code = TETANUS SHOT Medicin e (ADULT)] Future Scheduled HEPATITIS C SCREENING [facility] [code = HEPATITIS C Medicine SCREENING] Future Scheduled HIV SCREENING [code = [facility] Test HIV SCREENING] Medicine Future Scheduled FLU VACCINE > 6 MONTHS B [facility] [code = FLU VACCINE > 6 Medi cine MONTHS] Encounters Start End Encounter Admission Attending Care Care Encounter Source Date/Time Date/Time Type Type Clinicians Facility Department ID 2022-06-23 Outpatient [facility] [id number] [place] 06:55:39 [id number] [facility] 2022-06-17 Outpatient [facility] [id number] [place] 15:06:08 [id number] [facility] 2022-06-15 Outpatient [facility] [id number] [place] 03:04:43 [id number] [facility] 2022-06-14 Outpatient [facility] [id number] [place] 12:31:39 [id number] [facility] 2022-04-23 Outpatient HOAA, [facility] [id number] [place] 02:50:32 [facility] [id number] [facility] 2022-04-22 Outpatient [facility] [id number] [place] 10:56:19 [id number] [facility] 2022-04-20 Outpatient HOAA, [facility] [id number] [place] 02:10:13 [facility] [id number] [facility] 2022-01-25 Outpatient [facility] [id number] [place] 11:56:41 [id number] [facility] 2022-01-19 Outpatient HOAA, [facility] [id number] [place] 03:16:47 MUNACHI [id number] [facility] 2022-01-18 Outpatient [facility] [id number] [place] 12:57:31 [id number] [facility] 2022-01-01 Outpatient HOAA, [facility] [id number] [place] 15:24:56 [facility] 2021-11-13 Outpatient [facility] [id number] [place] 15:22:56 [facility] 2021-11-12 Outpatient [id number] ENC[facility] CVA [id number] ENCPL 10:42:58 1002 2021-11-12 Outpatient 3 [id number] ENCPL REF ENCPL 10:40:46 [id number] 2021-11-11 Outpatient Gomes, Na STLMLC STLMLC [id number] Common 11:17:41 [id number] [facility] 2021-11-11 Outpatient Goems, Na STLMLC STLMLC [id number] Common 11:00:18 [id number] [facility] 2021-11-11 Outpatient Gomes, Na STLMLC STLMLC [id number] Common 11:00:09 [id number] [facility] 2020-10-30 Inpatient [facility]DO [id number] [facility] 12:19:00 69 [facility] 2020-01-25 Inpatient Mio Frances [facility] MEDI.01 [id number] [facility] 16:41:00 41 [facility] 2022-12-14 2022-12-14 [facility] [id number] Univers 09:40:00 09:40:00 SOLE [id number] [facility] 2022-08-27 2022-08-27 [facility] [id number] Univers 08:00:00 08:00:00 SOLE [facility] 2022-07-13 2022-07-13 Outpatient R VAUGHN [facility] [id number] Univers 10:00:00 10:00:00 JAMES [id number] [facility] 2022-06-28 2022-06-28 Telephone [facility] [id number] Univers 00:00:00 00:00:00 Sole HANSEN [id number] i [place] [id number] Nichole GALLEGOS [id number] [address] 2022-06-23 2022-06-23 [facility] [id number] Univers 00:00:00 00:00:00 Sole HANSEN [id number] i ty [id number] [id number] Ut dical NAL [address] [facility] 2022-06-22 2022-06-22 Outpatient R LAURA [facility] [id number] Univers 09:00:00 09:00:00 SOLE abby [facility] 2022-06-22 2022-06-22 [facility]phone [facility] [id number] Univers 00:00:00 00:00:00 Sole HANSEN [id number] i ty [id number] [id number] Ut dical NAL [address] [place] [address] 2022-06-16 2022-06-16 [facility] [id number] Univers 00:00:00 00:00:00 Outreach Lupis HANSEN [id number] ity [facility] [id number] [id number] Ut dical [facility] 044 [facility] 2022-06-10 2022-06-12 Outpatient Elayne CAMARENA [facility] MED [id number] [facility] 14:17:00 17:41:00 SUMEET 2022-06-10 2022-06-10 [facility] [id number] [facility] 11:09:00 23:59:00 ONELIA 2022-06-08 2022-06-08 [facility] [id number] Univers 11:02:05 23:59:00 SOLE morales [facility] 2022-05-20 2022-05-22 Inpatient Emergency Jarad [facility] [id number] [facility] 23:02:00 16:15:00 [facility] 49 2022-05-20 2022-05-20 Inpatient Emergency Jarad [facility] [id number] [facility] 23:02:00 16:26:00 [facility] 2022-04-29 2022-04-29 Outpatient R SNEHAL [facility] [id number] Univers 12:30:00 13:00:19 RANIA [facility] 2022-04-21 2022-04-21 Outpatient [id number] DISP DISP [id number] Dispatc 05:02:00 05:02:00 3 [facility] 2022-04-15 2022-04-15 Outpatient Jeannine SANCHEZ [facility] [id number] Artem 08:21:09 23:59:00 SOLE carmen [facility] 2022-04-09 2022-04-11 Inpatient ER GOODWIN, [facility] [id number] [facility] 19:43:00 11:44:00 KIRA 2022-04-09 2022-04-11 Hospital Russ Rodriguez Graham [facility] [id number] 19:43:00 11:44:00 Encounter Otoniel Crain [facility] Kira [facility] 2022-04-10 2022-04-10 Surgery Gloria, [facility] [id number] 12:40:00 13:10:00 [facility] 2022-04-10 2022-04-10 Anesthesia Rima, Leonardo Hendrickspta [facility] [id number] 12:33:00 12:43:00 Event Yohan Smith Luis [facility] 2022-04-10 2022-04-[address] [facility] [id number] [facility] 00:[facility]00 00:00:00 [facility] 2022-04-06 2022-04-06 Outpatient EVERET[facility] [id number] [place] 11:00:00 11:00:00 [facility] 2022-03-05 2022-03-05 Outpatient DISP DISP [id number] Dispatc 03:55:00 03:55:00 3 [facility] 2022-02-15 2022-02-15 Outpatient [id number] DISP DISP [id number] Dispatc 09:30:00 09:30:00 3 [facility] 2022-02-09 2022-02-09 Outpatient [id number] DISP DISP [id number] Dispatc 04:40:00 04:40:00 3 Health 2022-02-09 2022-02-09 Outpatient Gustavo DISP DISP [id number] 00:00:00 00:00:00 Brianda [id number] 2021-12-11 2021-12-11 Outpatient Jeannine TYRELL [facility] [id number] Univers 08:35:00 23:59:00 LATASHA [facility] 2021-12-11 2021-12-11 Outpatient Jeannine TYRELL [facility] [id number] Univers 08:45:00 08:45:00 LATASHA [id number] [facility] 2021-07-31 2021-07-31 Outpatient NIKKI GANDHI [facility] [id number] Univers 10:00:00 10:27:40 NIKKI BRAVO [facility] 2021-06-10 2021-06-10 Outpatient [facility] [id number] [place] 09:20:00 09:20:00 0825 [facility] Group 2021-06-03 2021-06-03 Outpatient [facility] [id number] [place] 10:29:00 10:29:00 0818 Medical Group 2020-10-31 2020-10-31 Outpatient FELIX Valdes LABO [id number] [facility] 00:22:00 00:22:[address] [place] [address] 2020-06-20 2020-06-20 Outpatient [facility] [id number] Common 10:36:00 10:36:[address] [facility] 2020-05-23 2020-05-23 Outpatient [facility] [id number] Common 16:20:00 16:20:00 [place] [address] [employer] [address] Sp[address] [facility] 2020-05-23 2020-05-23 Outpatient [facility] [id number] Common 15:25:00 15:25:[address] [facility] 2020-01-28 2020-01-28 Outpatient Soren, DORIANNW REF [id number] [facility] 14:20:00 14:20:00 Cristopher Nick [facility] 2020-01-01 2020-01-01 Outpatient [facility] [id number] Common 16:10:00 16:10:[address] [facility] 2019-12-26 2019-12-26 Outpatient [facility] [id number] Common 08:44:00 08:44:[address] [facility] 2019-12-05 2019-12-05 Outpatient [facility] [id number] Common 15:07:00 15:07:[address] [facility] 2019-09-24 2019-09-24 Outpatient [facility] [id number] Common 09:27:00 09:27:[address] [facility] 2019-09-06 2019-09-06 Outpatient [facility] [id number] Common 12:00:00 12:00:[address] [facility] 2019-08-18 2019-08-18 Outpatient [facility] [id number] Common 17:55:00 17:55:[address] [facility] 2019-08-01 2019-08-01 Outpatient [facility] [id number] Common 09:00:00 09:00:[address] [facility] 2019-06-07 2019-06-07 Outpatient [facility] [id number] Common 11:20:00 11:20:[address] [facility] 2019-01-04 2019-01-04 Outpatient [facility] [id number] Common 14:04:00 14:04:[address] [facility] 2018-11-23 2018-11-23 Outpatient [facility] [id number] Common 09:15:00 09:15:00 t Urgent [facility] 2018-11-20 2018-11-20 Outpatient [facility] [id number] Common 10:13:00 10:13:[address] [facility] 2018-11-15 2018-11-15 Outpatient [facility] [id number] Common 15:15:00 15:15:[address] [facility] 2018-10-09 2018-10-09 Outpatient [facility] [id number] Common 10:19:00 10:19:[address] [facility] 2018-06-02 2018-06-02 Outpatient [facility] [id number] Common 16:46:00 16:46:[address] [facility] 2018-05-11 2018-05-11 Outpatient [facility] [id number] Common 09:45:00 09:45:[address] [facility] Results Test Description Test Time Test Comments Results Result Comments Source Lactic Acid 2022-05-22 08:30:00 Test Item Value Reference Range Interpretation Comme nts Lactic Acid (test code = LACTIC) 1.6 mmol/L 0.5-2.0 N Complete Blood Count Auto [id number] 08:20:00 Test Item Value Reference Range Interpretation Comments White Blood Count (test code = 7.6 x10 3/uL 4.4-10.5 N WBCT) Red Blood Count (test code = 3.64 x10 6/uL 4.10-5.70 L RBC) Hemoglobin (test code = HGBT) 10.1 g/dL 13.4-17.4 L Hematocrit (test code = HCTT) 30.9 % 38.7-52.0 L Mean Corpuscular Volume (test 84.90 fL 80.00-100.00 N code = MCV) Mean Corpuscular Hemoglobin 27.7 pg 27.0-32.5 N (test code = MCH) Mean Corpuscular HGB Conc 32.70 g/dL 32.00-37.50 N (test code = MCHC) RDW Coefficient of Variation 16.7 % 11.5-14.5 H (test code = RDWCV) Platelet Count (test code = 219.0 x10 3/uL 140.0-440.0 N PLTT) Mean Platelet Volume (test 11.6 fL code = MPV) Immature Granulocytes % (Auto) 0.3 % 0.0-5.0 N (test code = IMMGRAN%) Neutrophils % (Auto) (test 67.7 % 36.0-70.0 N code = NE%) Lymphocytes % (Auto) (test 14.4 % 12.0-44.0 N code = LY%) Monocytes % (Auto) (test code 9.7 % 0.0-11.0 N = MO%) Eosinophils % (Auto) (test 7.2 % 0.0-7.0 H code = EO%) Basophils % (Auto) (test code 0.7 % 0.0-2.0 N = BA%) Immature Granulocytes # (Auto) 0.02 x10 3/uL (test code = IMMGRAN#) Neutrophils # (Auto) (test 5.2 x10 3/uL 1.6-7.4 N code = NE#) Lymphocytes # (Auto) (test 1.10 x10 3/uL 0.50-4.60 N code = LY#) Monocytes # (Auto) (test code 0.74 x10 3/uL 0.00-1.20 N = MO#) Eosinophils # (Auto) (test 0.55 x10 3/uL 0.00-0.74 N code = EO#) Basophils # (Auto) (test code 0.05 x10 3/uL 0.00-0.21 N = BA#) nRBC Abs (test code = NRBCA) 0 nRBC Pct (test code = NRBCP) 0 % Basic Metabolic [id number] 08:20:00 Test Item Value Reference Range Interpretation Comments SODIUM (test code = NA) 140.0 mmol/L 136.0-145.0 N Potassium,K (test code = K) 3.9 mmol/L 3.0-5.1 N Chloride (test code = CL) 114 mmol/L 98-107 H Carbon Dioxide (test code = CO2) 23 mmol/L 20-31 N Anion Gap (test code = GAP) 3 mmol/L 5-15 L Blood Urea Nitrogen (test code = 15 mg/dL 9-23 N BUN) Creatinine (test code = CREATT) 1.14 mg/dL 0.55-1.02 H Creatinine Clr Calc Pharmacy 71.62 mL/min (test code = CRCLPHA) Estimated GFR ( Marion > 60 mL/min/1.73m2 (test code = EGFRAA) Estimated GFR (Non Afr Marion > 60 mL/min/1.73m2 (test code = EGFRNAA) BUN/Creatinine Ratio (test code 13 ratio 10-20 N = BCRATIO) Glucose (test code = GLU) 119 mg/dL 74-106 H Osmolality,Calculated (test code 291.3 = OSMOC) Calcium (test code = CA) 8.5 mg/dL 8.3-10.6 N Lactic [id number] 21:10:00 Test Item Value Reference Range Interpretation Comments Lactic Acid (test 2.3 mmol/L 0.5-2.0 HH Critical v alue called code = LACTIC) to shannan joiner ck by jaime yang rn on: 05/20/22 at 222 0by [id number]. Troponin I High [id number] 20:20:00 Test Item Value Reference Range Interpretation Comments Troponin I High 13.04 pg/mL 0-45 N Interpretive Comments:* Sensitivity (test The 99th p ercentile URL code = TROPHS) for the assay is <45 pg/ml.* A rise and fall in Troponin I w ith at least onevalue above the 99th percen tile with clinical e vidence ofmyocardial is chemia would support a diagnosis of AM I. Adelta of at le ast 20% is recommended to assess acutecha nges in results above t he 99th percentile in serialmeasureme nts.* High concentrat ions of Biotin, a water soluble B-vitamin(B7) u sed in over the counte r supplements and fortherapeutic purposes, has b een tested and show s <10% changeup to 3,5 00 ng/mL Biotin using th is Siemens Atellic a TNIHassay. Resu lts obtained should be evaluated in conjunctionwith clinical findin gs. UA, Urinalysis Rflx Cult/[id number] 18:35:00 Test Item Value Reference Range Interpretation Comments Color,Urine (test code = UCOL) Yellow Yellow Clarity,Urine (test code = Clear Clear UCLAR) Ph, Urine (test code = UPH) 7.5 5.0-9.0 N Specific [place],Urine (test 1.010 1.005-1.030 N code = USG) Blood,Urine (test code = UBLD) Negative mg/dL Negative Protein,Urine (test code = 30 mg/dL Negative A UPRO) Glucose,Urine (UA) (test code Negative mg/dL Negative = UGLU) Ketones,Urine (test code = Negative mg/dL Negative UKET) Nitrate,Urine (test code = Negative Negative UNIT) Bilirubin,Urine (test code = Negative mg/dL Negative UBIL) Urobilinogen,Urine (test code 0.2 E.U./dL Normal = UURO) Leukocyte Esterase,Urine (test Negative mg/dL Negative code = ULEU) UF REFLEXUF REFLEXUrine [id number] 18:35:00 Test Item Value Reference Range Interpretation Comments RBC,Urine (test code = URBCUF) None Seen /HPF 0-2 WBC,Urine (test code = UWBCUF) 0-5 /HPF 0-5 Epithelial Cell,Urine (test 0-5 /HPF 0-5 code = UECUF) Casts,Urine (test code = 0-5 /LPF None Seen UCASTUF) Bacteria,Urine (test code = None Seen /hpf None Seen UBACTUF) UF REFLEXUF REFLEXDrug Screen,[id number] 18:35:00 Test Item Value Reference Range Interpretation Comments PCP Phencyclidine Screen,Urine (test Negative Negative code = PCPU) Amphetamine Screen,Urine (test code Negative Negative = AMPU) Methadone Screen,Urine (test code = Negative Negative METHU) Opiate Screen,Urine (test code = Negative Negative UOPIS) Barbituates Screen,Urine (test code Negative Negative = BARBU) Benzodiazepines Screen,Urine (test Negative Negative code = UBENZS) Cocaine Screen,Urine (test code = Negative Negative UCOCS) Cannabinoid Screen,Urine (test code Negative Negative = UTHCS) Propoxyphene Screen, Urine (test Negative Negative code = UPROP) Complete Blood Count Auto [id number] 18:24:00 Test Item Value Reference Range Interpretation Comments White Blood Count (test code = 11.1 x10 3/uL 4.4-10.5 H WBCT) Red Blood Count (test code = 3.94 x10 6/uL 4.10-5.70 L RBC) Hemoglobin (test code = HGBT) 11.0 g/dL 13.4-17.4 L Hematocrit (test code = HCTT) 35.1 % 38.7-52.0 L Mean Corpuscular Volume (test 89.10 fL 80.00-100.00 N code = MCV) Mean Corpuscular Hemoglobin 27.9 pg 27.0-32.5 N (test code = MCH) Mean Corpuscular HGB Conc 31.30 g/dL 32.00-37.50 L (test code = MCHC) RDW Coefficient of Variation 16.8 % 11.5-14.5 H (test code = RDWCV) Platelet Count (test code = 263.0 x10 3/uL 140.0-440.0 N PLTT) Mean Platelet Volume (test 12.0 fL code = MPV) Immature Granulocytes % (Auto) 0.4 % 0.0-5.0 N (test code = IMMGRAN%) Neutrophils % (Auto) (test 70.2 % 36.0-70.0 H code = NE%) Lymphocytes % (Auto) (test 13.8 % 12.0-44.0 N code = LY%) Monocytes % (Auto) (test code 10.8 % 0.0-11.0 N = MO%) Eosinophils % (Auto) (test 4.1 % 0.0-7.0 N code = EO%) Basophils % (Auto) (test code 0.7 % 0.0-2.0 N = BA%) Immature Granulocytes # (Auto) 0.04 x10 3/uL (test code = IMMGRAN#) Neutrophils # (Auto) (test 7.8 x10 3/uL 1.6-7.4 H code = NE#) Lymphocytes # (Auto) (test 1.54 x10 3/uL 0.50-4.60 N code = LY#) Monocytes # (Auto) (test code 1.20 x10 3/uL 0.00-1.20 N = MO#) Eosinophils # (Auto) (test 0.46 x10 3/uL 0.00-0.74 N code = EO#) Basophils # (Auto) (test code 0.08 x10 3/uL 0.00-0.21 N = BA#) nRBC Abs (test code = NRBCA) 0 nRBC Pct (test code = NRBCP) 0 % Troponin I High [id number] 18:04:00 Test Item Value Reference Range Interpretation Comments Troponin I High 11.29 pg/mL 0-45 N Interpretive Comments:* Sensitivity (test The 99th p ercentile URL code = TROPHS) for the assay is <45 pg/ml.* A rise and fall in Troponin I w ith at least onevalue above the 99th percen tile with clinical e vidence ofmyocardial is chemia would support a diagnosis of AM I. Adelta of at le ast 20% is recommended to assess acutecha nges in results above t he 99th percentile in serialmeasureme nts.* High concentrat ions of Biotin, a water soluble B-vitamin(B7) u sed in over the counte r supplements and fortherapeutic purposes, has b een tested and show s <10% changeup to 3,5 00 ng/mL Biotin using th is Siemens Atellic a TNIHassay. Resu lts obtained should be evaluated in conjunctionwith clinical findin gs. Blood [id number] 17:05:00 Test Item Value Reference Range Interpretation Comments Blood Culture (test NO GROWTH AFTER 5 DAYS code = BC) Partial Thromboplastin [id number] 17:00:00 Test Item Value Reference Range Interpretation Comments Partial Thromboplastin Time 20.8 Seconds 23.9-32.8 L (test code = PTT) Comprehensive Metabolic [id number] 17:00:00 Test Item Value Reference Range Interpretation Comments SODIUM (test code = NA) 136.0 mmol/L 136.0-145.0 N Potassium,K (test code = K) 4.7 mmol/L 3.0-5.1 N Chloride (test code = CL) 104 mmol/L 98-107 N Carbon Dioxide (test code = CO2) 22 mmol/L 20-31 N Anion Gap (test code = GAP) 10 mmol/L 5-15 N Blood Urea Nitrogen (test code = 28 mg/dL 9-23 H BUN) Creatinine (test code = CREATT) 1.49 mg/dL 0.55-1.02 H Creatinine Clr Calc Pharmacy 54.80 mL/min (test code = CRCLPHA) Estimated GFR ( Marion 59 mL/min/1.73m2 (test code = EGFRAA) Estimated GFR (Non Afr Marion 51 mL/min/1.73m2 (test code = EGFRNAA) BUN/Creatinine Ratio (test code 19 ratio 10-20 N = BCRATIO) Glucose (test code = GLU) 176 mg/dL 74-106 H Osmolality,Calculated (test code 291.0 = OSMOC) Calcium (test code = CA) 9.4 mg/dL 8.3-10.6 N Bilirubin,Total (test code = 0.3 mg/dL 0.2-1.1 N BILIT) Aspartate Amino Transferase 46 U/L 0-34 H (test code = AST) Alanine Aminotransferase (test 26 U/L 10-49 N code = ALT) Total Protein (test code = TP) 6.6 g/dL 5.7-8.2 N Albumin Level (test code = ALB) 4.8 g/dL 3.2-4.8 N Globulin (test code = GLOB) 1.8 mg/dL 2.3-3.5 L Albumin/Globulin Ratio (test 2.7 ratio 0.8-2.0 H code = AGRATIO) Alkaline Phosphatase (test code 105 U/L 46-116 N = ALP) Creatine [id number] 17:00:00 Test Item Value Reference Range Interpretation Comments Creatine Kinase (test code = CK) 81 U/L 46-171 N Ethanol [id number] 17:00:00 Test Item Value Reference Range Interpretation Comments Ethanol (test code < 3 mg/dL The pharm acological = ETOH) response to blo od alcohol levels mayvary from individual to i ndividual. The fatal bo ntrationhas been reported t o be >400mg/dL. Troponin I High [id number] 17:00:00 Test Item Value Reference Range Interpretation Comments Troponin I High 7.88 pg/mL 0-45 N Interpretive Comments:* Sensitivity (test The 99th p ercentile URL code = TROPHS) for the assay is <45 pg/ml.* A rise and fall in Troponin I w ith at least onevalue above the 99th percen tile with clinical e vidence ofmyocardial is chemia would support a diagnosis of AM I. Adelta of at le ast 20% is recommended to assess acutecha nges in results above t he 99th percentile in serialmeasureme nts.* High concentrat ions of Biotin, a water soluble B-vitamin(B7) u sed in over the counte r supplements and fortherapeutic purposes, has b een tested and show s <10% changeup to 3,5 00 ng/mL Biotin using th is Siemens Atellic a TNIHassay. Resu lts obtained should be evaluated in conjunctionwith clinical findin gs. Coronavirus PCR, COVID19 [id number] 17:00:00 Test Item Value Reference Range Interpretation Comments Coronavirus PCR, For use under Emergency COVID19 Rapid (test Use Authorization (EUA) code = SARSCOV2) only. Coronavirus PCR, Reference Range: COVID19 Rapid (test Negative code = WYJBOTM22.1) SARS-CoV-2 PCR Result: Negative by RT-PCR (test code = SARS-CoV-2 PCR Result:) COVID-19 Status: AsymptomaticBlood [id number] 17:00:00 Test Item Value Reference Range Interpretation Comments Blood Culture (test NO GROWTH AFTER 5 DAYS code = BC) Prothrombin Time [id number] 17:00:00 Test Item Value Reference Range Interpretation Comments Prothrombin Time 10.2 Seconds 9.3-12.1 N (test code = PT) INR (test code = 1.0 ratio 0.9-1.2 N Reference I nterval is INR) for non-anticoagula mann patients.Sugges mann INR Therapeutic Range for Vitamin K antogonistthera py:LEV ELS OFTHERAPY INDICATIONS TAR GET INR RANGEStanda rd Dose Venous Thrombosis, 2.0 - 3.0 Atrial Fibrilla tion, Pulmonary Embolism.High D ose Valvular Heart Disease, 2.5 - 3.5 Mechanical Hear t, Intracardiac Thrombosis. Lactic [id number] 16:42:00 Test Item Value Reference Range Interpretation Comments Lactic Acid (test 2.3 mmol/L 0.5-2.0 HH Critical v alue called code = LACTIC) to shannna joiner ck by Viola mendenhall n: 05/20/22 at 175 3by [id number]. Lactic Acid Collected [facility]Prepare Leuko-Red [id number] 23:54:00 Test Item Value Reference Range Interpretation Comments CROSSMATCH (test code = 2264) COMPATIBLE Unit ABO (test code = A Pos [id number]) UNIT NUMBER (test code = [id number] 934-0) Status (test code = 9084125) TX_TIMEINCHART Blood Bank Product (test code RED BLOOD CELLS = 2263) PRODUCT CODE (test code = F8581H98 933-2) [facility] [id number] 05:10:20 Test Item Value Reference Range Interpretation Comments TOTAL PROTEIN (BEAKER) (test code = 5.4 gm/dL 6.0-8.5 L 770) ALBUMIN (BEAKER) (test code = 1145) 3.2 g/dL 3.5-5.0 L BILIRUBIN TOTAL (BEAKER) (test code 0.4 mg/dL 0.1-1.2 = 377) BILIRUBIN DIRECT (BEAKER) (test 0.2 mg/dL 0.0-0.4 code = 706) ALKALINE PHOSPHATASE (BEAKER) (test 52 U/L 30-115 code = 346) AST (SGOT) (BEAKER) (test code = 18 U/L 5-40 353) ALT (SGPT) (BEAKER) (test code = 16 U/L 5-50 347) Addiction Psychiatrist ID - LITOOperator ID - LITOOperator ID - LITOOperator ID - LITOOperator ID - LITOOperator ID - LITOOperator ID - LITOOperator ID - LITOOperator ID - LITOOperator ID - LITOBASIC METABOLIC [id number] 05:08:22 Test Item Value Reference Range Interpretation Comments SODIUM (BEAKER) 142 meq/L 135-148 (test code = 381) POTASSIUM (BEAKER) 3.8 meq/L 3.6-5.5 (test code = 379) CHLORIDE (BEAKER) 113 meq/L 98-106 H (test code = 382) CO2 (BEAKER) (test 22 meq/L 20-29 code = 355) BLOOD UREA NITROGEN 17 mg/dL 10-26 (BEAKER) (test code = 354) CREATININE (BEAKER) 0.85 mg/dL 0.50-1.20 (test code = 358) GLUCOSE RANDOM 95 mg/dL 70-110 (BEAKER) (test code = 652) CALCIUM (BEAKER) 8.3 mg/dL 8.5-10.5 L (test code = 697) EGFR (BEAKER) (test 92 mL/min/1.73 ESTIMA MANN GFR IS code = 1092) sq m NOT ACCURATE CREATININE CLEARANCE IN PREDICTING GLOMERULAR FILTRATION RATE . ESTIMATED GFR I S NOT APPLICABLE FOR DIALYSIS PATIEN TS. Addiction Psychiatrist ID - LITOOperator ID - LITOOperator ID - LITOOperator ID - LITOOperator ID - LITOOperator ID - LITOOperator ID - LITOOperator ID - LITOOperator ID - LITOCBC W/PLT COUNT & AUTO [id number] 04:58:17 Test Item Value Reference Range Interpretation Comments WHITE BLOOD CELL COUNT (BEAKER) 8.1 K/ L 4.0-10.0 (test code = 775) RED BLOOD CELL COUNT (BEAKER) 2.70 M/ L 4.20-5.80 L (test code = 761) HEMOGLOBIN (BEAKER) (test code = 8.3 GM/DL 13.0-16.8 L 410) HEMATOCRIT (BEAKER) (test code = 24.4 % 36.0-50.0 L 411) MEAN CORPUSCULAR VOLUME (BEAKER) 90.4 fL 82.0-99.0 (test code = 753) MEAN CORPUSCULAR HEMOGLOBIN 30.7 pg 27.0-33.0 (BEAKER) (test code = 751) MEAN CORPUSCULAR HEMOGLOBIN CONC 34.0 GM/DL 32.0-36.0 (BEAKER) (test code = 752) RED CELL DISTRIBUTION WIDTH 17.0 % 12.0-15.0 H (BEAKER) (test code = 412) PLATELET COUNT (BEAKER) (test 200 K/CU MM 150-430 code = 756) MEAN PLATELET VOLUME (BEAKER) 11.2 fL 6.0-11.5 (test code = 754) NUCLEATED RED BLOOD CELLS 0 /100 WBC 0-0 (BEAKER) (test code = 413) NEUTROPHILS RELATIVE PERCENT 62 % (BEAKER) (test code = 429) LYMPHOCYTES RELATIVE PERCENT 19 % (BEAKER) (test code = 430) MONOCYTES RELATIVE PERCENT 9 % (BEAKER) (test code = 431) EOSINOPHILS RELATIVE PERCENT 9 % (BEAKER) (test code = 432) BASOPHILS RELATIVE PERCENT 1 % (BEAKER) (test code = 437) NEUTROPHILS ABSOLUTE COUNT 4.98 K/ L 1.80-8.00 (BEAKER) (test code = 670) LYMPHOCYTES ABSOLUTE COUNT 1.53 K/ L 1.48-4.50 (BEAKER) (test code = 414) MONOCYTES ABSOLUTE COUNT (BEAKER) 0.74 K/ L 0.00-1.30 (test code = 415) EOSINOPHILS ABSOLUTE COUNT 0.73 K/ L 0.00-0.50 H (BEAKER) (test code = 416) BASOPHILS ABSOLUTE COUNT (BEAKER) 0.06 K/ L 0.00-0.20 (test code = 417) IMMATURE GRANULOCYTES-RELATIVE 0 % 0-0 PERCENT (BEAKER) (test code = 2801) HEPATIC FUNCTION [id number] 06:24:42 Test Item Value Reference Range Interpretation Comments TOTAL PROTEIN (BEAKER) (test code = 5.3 gm/dL 6.0-8.5 L 770) ALBUMIN (BEAKER) (test code = 1145) 3.3 g/dL 3.5-5.0 L BILIRUBIN TOTAL (BEAKER) (test code 0.3 mg/dL 0.1-1.2 = 377) BILIRUBIN DIRECT (BEAKER) (test 0.2 mg/dL 0.0-0.4 code = 706) ALKALINE PHOSPHATASE (BEAKER) (test 50 U/L 30-115 code = 346) AST (SGOT) (BEAKER) (test code = 17 U/L 5-40 353) ALT (SGPT) (BEAKER) (test code = 15 U/L 5-50 347) Addiction Psychiatrist ID - [id number] ID - [id number] ID - [id number] ID - [id number] ID - [id number] ID - [id number] ID - [id number] ID - [id number] ID - [id number] ID - [id number] METABOLIC [id number] 06:24:00 Test Item Value Reference Range Interpretation Comments SODIUM (BEAKER) (test 143 meq/L 135-148 code = 381) POTASSIUM (BEAKER) 3.9 meq/L 3.6-5.5 (test code = 379) CHLORIDE (BEAKER) 116 meq/L 98-106 H (test code = 382) CO2 (BEAKER) (test 20 meq/L 20-29 code = 355) BLOOD UREA NITROGEN 31 mg/dL 10-26 H (BEAKER) (test code = 354) CREATININE (BEAKER) 0.89 mg/dL 0.50-1.20 (test code = 358) GLUCOSE RANDOM 98 mg/dL 70-110 (BEAKER) (test code = 652) CALCIUM (BEAKER) 8.4 mg/dL 8.5-10.5 L (test code = 697) EGFR (BEAKER) (test INSUFFIC IENT CLINICAL code = 1092) DATA TO CALCULA TE ESTIMATED GFR. Addiction Psychiatrist ID - [id number] ID - [id number] ID - [id number] ID - [id number] ID - [id number] ID - [id number] ID - [id number] ID - [id number] ID - [id number] ID - [id number] W/PLT COUNT & AUTO DIFFERENTIAL 2022-04-10 05:53:05 Test Item Value Reference Range Interpretation Comments WHITE BLOOD CELL COUNT (BEAKER) 9.9 K/ L 4.0-10.0 (test code = 775) RED BLOOD CELL COUNT (BEAKER) 2.19 M/ L 4.20-5.80 L (test code = 761) HEMOGLOBIN (BEAKER) (test code = 6.9 GM/DL 13.0-16.8 L 410) HEMATOCRIT (BEAKER) (test code = 19.9 % 36.0-50.0 LL 411) MEAN CORPUSCULAR VOLUME (BEAKER) 90.9 fL 82.0-99.0 (test code = 753) MEAN CORPUSCULAR HEMOGLOBIN 31.5 pg 27.0-33.0 (BEAKER) (test code = 751) MEAN CORPUSCULAR HEMOGLOBIN CONC 34.7 GM/DL 32.0-36.0 (BEAKER) (test code = 752) RED CELL DISTRIBUTION WIDTH 16.9 % 12.0-15.0 H (BEAKER) (test code = 412) PLATELET COUNT (BEAKER) (test 217 K/CU MM 150-430 code = 756) MEAN PLATELET VOLUME (BEAKER) 11.3 fL 6.0-11.5 (test code = 754) NUCLEATED RED BLOOD CELLS 0 /100 WBC 0-0 (BEAKER) (test code = 413) NEUTROPHILS RELATIVE PERCENT 65 % (BEAKER) (test code = 429) LYMPHOCYTES RELATIVE PERCENT 18 % (BEAKER) (test code = 430) MONOCYTES RELATIVE PERCENT 10 % (BEAKER) (test code = 431) EOSINOPHILS RELATIVE PERCENT 5 % (BEAKER) (test code = 432) BASOPHILS RELATIVE PERCENT 1 % (BEAKER) (test code = 437) NEUTROPHILS ABSOLUTE COUNT 6.48 K/ L 1.80-8.00 (BEAKER) (test code = 670) LYMPHOCYTES ABSOLUTE COUNT 1.79 K/ L 1.48-4.50 (BEAKER) (test code = 414) MONOCYTES ABSOLUTE COUNT (BEAKER) 1.02 K/ L 0.00-1.30 (test code = 415) EOSINOPHILS ABSOLUTE COUNT 0.54 K/ L 0.00-0.50 H (BEAKER) (test code = 416) BASOPHILS ABSOLUTE COUNT (BEAKER) 0.06 K/ L 0.00-0.20 (test code = 417) IMMATURE GRANULOCYTES-RELATIVE 0 % 0-0 PERCENT (BEAKER) (test code = 2801) CT, BRAIN, WITHOUT [id number] 00:03:00Unlisted Reason for Exam - Click Yes and Enter Reason Below->Noaphasia - anemia, bleed? [facility] : 1960 Sex: MFINAL REPORT CT Head without contrast CLINICAL HISTORY: Stroke, follow up TECHNIQUE: Contiguous axial images through the head without contrast. This exam was performed according to the departmental dose optimization program which includes automated exposure control, adjustment ofthe mA and/or kV according to the patient size, and/or use of an iterative reconstruction technique. COMPARISON: None FINDINGS:Remote left MCA territory infarction. Remote small left cerebellar hemisphere infarction. Remote bilateral basal ganglia and left parietal lobe infarction.There is no CT evidence of acute infarct or intracranial hemorrhage. There is periventricular and subcortical white matter hypodensity which is nonspecific but compatible with chronic microvascular ischemic change. There are atherosclerotic calcifications of the intracranial circulation. There is generalized parenchymal volume loss without hydrocephalus, midline shift, or apparent mass effect. Basilar cisterns are patent. There are no extra-axial fluid collections. The skull is intact. The visualized paranasal sinuses are well-aerated. Intraorbital contents are unremarkable. IMPRESSION: Remote ischemic and involutional changes as described above while no definite large territory infarction is identified recommend MRIfor further evaluation if persistent clinical concern. Signed: Michelle Verdugo [facility] Verified Date/Time: 04/10/2022 00:03:56 BASIC METABOLIC [id number] 23:16:13 Test Item Value Reference Range Interpretation Comments SODIUM (BEAKER) (test 144 meq/L 135-148 code = 381) POTASSIUM (BEAKER) 4.0 meq/L 3.6-5.5 (test code = 379) CHLORIDE (BEAKER) 117 meq/L 98-106 H (test code = 382) CO2 (BEAKER) (test 18 meq/L 20-29 L code = 355) BLOOD UREA NITROGEN 40 mg/dL 10-26 H (BEAKER) (test code = 354) CREATININE (BEAKER) 0.98 mg/dL 0.50-1.20 (test code = 358) GLUCOSE RANDOM 107 mg/dL 70-110 (BEAKER) (test code = 652) CALCIUM (BEAKER) 8.6 mg/dL 8.5-10.5 (test code = 697) EGFR (BEAKER) (test INSUFFIC IENT CLINICAL code = 1092) DATA TO CALCULA TE ESTIMATED GFR. Addiction Psychiatrist ID - DSENSONOperator ID - DSENSONOperator ID - DSENSONOperator ID - DSENSONOperator ID - DSENSONOperator ID - DSENSONOperator ID - DSENSONOperator ID - DSENSONOperator ID - DSENSONOperator ID - DSENSONHEPATIC FUNCTION PANEL 2022-04-09 23:06:37 Test Item Value Reference Range Interpretation Comments TOTAL PROTEIN (BEAKER) (test code = 5.9 gm/dL 6.0-8.5 L 770) ALBUMIN (BEAKER) (test code = 1145) 3.8 g/dL 3.5-5.0 BILIRUBIN TOTAL (BEAKER) (test code 0.4 mg/dL 0.1-1.2 = 377) BILIRUBIN DIRECT (BEAKER) (test 0.2 mg/dL 0.0-0.4 code = 706) ALKALINE PHOSPHATASE (BEAKER) (test 64 U/L 30-115 code = 346) AST (SGOT) (BEAKER) (test code = 18 U/L 5-40 353) ALT (SGPT) (BEAKER) (test code = 15 U/L 5-50 347) Addiction Psychiatrist ID - DSENSONOperator ID - DSENSONOperator ID - DSENSONOperator ID - DSENSONOperator ID - DSENSONOperator ID - DSENSONOperator ID - DSENSONMAGNESIUM 2022-04-09 23:06:21 Test Item Value Reference Range Interpretation Comments MAGNESIUM (BEAKER) (test code = 2.1 mg/dL 1.5-3.0 627) Addiction Psychiatrist ID - DSENSONOperator ID - DSENSONOperator ID - DSENSONOperator ID - [id number] 23:03:17 Test Item Value Reference Range Interpretation Comments PHOSPHORUS (BEAKER) (test code = 2.9 mg/dL 2.5-4.5 604) Addiction Psychiatrist ID - DSENSONPROTHROMBIN TIME/[id number] 22:59:19 Test Item Value Reference Range Interpretation Comments PROTIME (BEAKER) 10.9 seconds 9.3-12.0 Final Infor mation (test code = 759) (Auto Outp ut) INR (BEAKER) (test 0.99 See_Comment Final Inf ormation code = 370) (Auto Output) [Automated mess age] The system [employer] generated this result transmitted ref erence range: <=5.90. The reference range was not used to int erpret this result as normal/abnormal . RECOMMENDED COUMADIN/WARFARIN INR THERAPY RANGESSTANDARD DOSE: 2.0 - 3.0 Includes: PROPHYLAXIS for venous thrombosis, systemic embolization; TREATMENT for venous thrombosis and/or pulmonary embolus.HIGH RISK: Target INR is 2.5-3.5 for patients with mechanical heart valves.CBC W/PLT COUNT & AUTO [id number] 22:54:17 Test Item Value Reference Range Interpretation Comments WHITE BLOOD CELL COUNT (BEAKER) 12.1 K/ L 4.0-10.0 H (test code = 775) RED BLOOD CELL COUNT (BEAKER) 2.48 M/ L 4.20-5.80 L (test code = 761) HEMOGLOBIN (BEAKER) (test code = 7.7 GM/DL 13.0-16.8 L 410) HEMATOCRIT (BEAKER) (test code = 23.7 % 36.0-50.0 L 411) MEAN CORPUSCULAR VOLUME (BEAKER) 95.6 fL 82.0-99.0 (test code = 753) MEAN CORPUSCULAR HEMOGLOBIN 31.0 pg 27.0-33.0 (BEAKER) (test code = 751) MEAN CORPUSCULAR HEMOGLOBIN CONC 32.5 GM/DL 32.0-36.0 (BEAKER) (test code = 752) RED CELL DISTRIBUTION WIDTH 16.4 % 12.0-15.0 H (BEAKER) (test code = 412) PLATELET COUNT (BEAKER) (test 213 K/CU MM 150-430 code = 756) MEAN PLATELET VOLUME (BEAKER) 11.2 fL 6.0-11.5 (test code = 754) NUCLEATED RED BLOOD CELLS 0 /100 WBC 0-0 (BEAKER) (test code = 413) NEUTROPHILS RELATIVE PERCENT 73 % (BEAKER) (test code = 429) LYMPHOCYTES RELATIVE PERCENT 15 % (BEAKER) (test code = 430) MONOCYTES RELATIVE PERCENT 10 % (BEAKER) (test code = 431) EOSINOPHILS RELATIVE PERCENT 2 % (BEAKER) (test code = 432) BASOPHILS RELATIVE PERCENT 1 % (BEAKER) (test code = 437) NEUTROPHILS ABSOLUTE COUNT 8.79 K/ L 1.80-8.00 H (BEAKER) (test code = 670) LYMPHOCYTES ABSOLUTE COUNT 1.75 K/ L 1.48-4.50 (BEAKER) (test code = 414) MONOCYTES ABSOLUTE COUNT (BEAKER) 1.18 K/ L 0.00-1.30 (test code = 415) EOSINOPHILS ABSOLUTE COUNT 0.23 K/ L 0.00-0.50 (BEAKER) (test code = 416) BASOPHILS ABSOLUTE COUNT (BEAKER) 0.07 K/ L 0.00-0.20 (test code = 417) IMMATURE GRANULOCYTES-RELATIVE 0 % 0-0 PERCENT (BEAKER) (test code = 2801) HOMOCYSTEINE [id number] 10:10:00 Test Item Value Reference Range Interpretation Comments HOMOCYSTEINE (test code 15.3 umol/L 0.0-14.5 A Perf ormed At: HD = HOMOCY) [facility] [address] [id number] [place] L MD Ph:[phone] RAPID PLASMA [id number] 06:11:00 Test Item Value Reference Range Interpretation Comments RAPID PLASMA REAGIN Non Reactive Non Reactive Performe d At: HD (test code = RPR) [facility] [id number] [place], [place] [id number] jyoti So MD Ph:[phone] - CT HEAD/BRAIN W/O [id number] 14:36:00 [facility] 1960 Sex: M Name: OTONIEL HENDERSON [place] : 1960 Age/S: 60 / M [address] Unit #: [id number] Loc: [place] [address] Phys: Ximena Valdes MD Acct: [id number] Dis Date: Status: ADM IN PHONE #: [phone] Exam Date: 10/31/2020 1420 FAX #: Reason: CVA EXAMS: CPT: [id number] CT HEAD/BRAIN W/O CONT 72462 CLINICAL HISTORY: CVA. CT brain, unenhanced. Reformatted sagittal and coronal images. COMPARISON: October 30, 2020, yesterday. Automated exposure control, iterative reconstruction technique, and/or adjustment of mA and/or kV according to patient's size was utilized for optimum radiation dose reduction. An unenhanced study of the brain was performed. Similar cortical pattern seen with noareas of cortical hemorrhage or new edema changes. Smaller encephalomalacia in the left occipital cortex. Small microinfarct in the medial thalamus on the left, stable. Hypodensities in the white matter may support chronic microvascular ischemia change or other white matter process but appearing to befairly stable. No hemorrhage, mass effect, or findings of CVA can be seen. No evidence of ventricular shift. The posterior fossa structures appear to be intact. Bone window settings do not show any evidence of skull fracture. Visualized sinuses appear to be clear. . IMPRESSION: No acute appearing intra cranial abnormality. No findings of hemorrhage or acute CVA can be documented. Location: U19 at 1436 Reported and signed by: Otoniel Busch M.D CC: Ximena Valdes MD; Karen Shoemaker Technologist:Lela Brunner, RT (R)(CT) CTDI: DLP: Trnscb Date/Time: 10/31/2020 (1436) [email or web address] Orig Print D/T: S: 10/31/2020 (1439) PAGE 1 SignedReportSED [id number] 10:34:00 Test Item Value Reference Range Interpretation Comments SED RATE (test code = SEDW) 7 mm/hr 0-15 SED RATE [id number] 10:33:00 Test Item Value Reference Range Interpretation Comments SED RATE WESTERGREN (test code = 7 mm/hr 0-15 N SEDW) [id number] 07:00:00 Test Item Value Reference Range Interpretation Comments GLYCOSYLATED HEMOGLOBIN (HA1C) 5.5 % A1C 0.0-5.7 N (test code = GLYHGB) ESTIMATED AVERAGE GLUCOSE (test 111 MG/DLest code = EAG) BASIC METABOLIC [id number] 06:55:00 Test Item Value Reference Range Interpretation [...] FASTING OVERNIGHT 10-12 HRS. TAKE BLOOD TO LAB [facility]. MUST SEPAPATE SERUM FROM CELLS WITHIN 1 [...] FASTING OVERNIGHT 10-12 HRS. TAKE BLOOD TO LAB [facility]. MUST SEPAPATE SERUM FROM CELLS WITHIN 1 HR AND FREEZE SERUM PROMPTLY.HOMOCYSTEINE [id number] 06:55:00 Test Item Value Reference Range Interpretation Comments HOMOCYSTEINE (test code = HOMOCY) mcMOL/L <9 Comment: FASTING IN AM PATIENT SHOULD BE FASTING OVERNIGHT 10-12 HRS. TAKE BLOOD TO LAB [facility]. MUST SEPAPATE SERUM FROM CELLS WITHIN 1 HR AND FREEZE SERUM PROMPTLY.CBC W/AUTO [id number] 06:41:00 Test Item Value Reference Range Interpretation [...] NO DIFF/SCN CRITERIA = MDIFF) GLUCOSE BEDSIDE [id number] 23:18:00 Test Item Value Reference Range Interpretation Comments GLUCOSE BEDSIDE TESTING (test code = 94 mg/dL 70-110 N GLUBED) COVID 19 INHOUSE [id number] 15:04:00 Test Item Value Reference Range Interpretation Comments COVID 19 INHOUSE AG NEGATIVE Negative Per manu facturer, (test code = negative result s should [id number]) be treated aspr esumptive and, if inconsi stent with clinical signs andsymptoms or necessary for patient man agement, should betested with an alternative mol ecular assay. Negative resultsdo not preclude SA RS-CoV-2 infection and s hould not be usedas the s ole basis for patient man agement decisions. Nega tive results should be considered in t he context of apatient's r ecent exposures, hist ory, presence of cli nicalsigns and symptoms co nsistent with COVID-19. UA RFLX MICR CULT IF [id number] 14:02:00 Test Item Value Reference Range Interpretation [...] UACULT) Indication for culture: Dysuria/Frequency- CT ANGIO [id number] 13:00:00 [facility] : 1960 Sex: M Name: OTONIEL HENDERSON [facility] : 1960 Age/S: 60 / M [address] #: [id number] Loc: [place] [address] Phys: Anjum Rivera MD Acct: [id number] Dis Date: Status: PRE ER PHONE #: [phone] Exam Date: 10/30/2020 1234 FAX #: Reason: slurred speech EXAMS: CPT: [id number] CT ANGIO NECK [address]108 EXAMINATION: - CT ANGIO HEAD, - CT ANGIO NECK. LOCATION: B2. HISTORY: slurredspeech. COMPARISON: None. TECHNIQUE: Contiguous axial sections were [...] reconstruction technique. FINDINGS: Mixed calcific plaques are seenat the aortic arch. Mixed calcific plaques are seen in bilateral common carotid arteries and carotidbifurcations without significant stenosis. Mixed calcific plaques are seen in bilateral cervical, cavernous, and supraclinoid ICAs without significant stenosis. Intracranially, bilateral ICA bifurcations are normal with patent bilateral anterior and middle cerebral arteries. A 2nd right REECE arises off the left REECE. No stenosis or occlusion is noted on either side. Anterior communicating artery appears unremarkable. The origin of the left vertebral artery is obscured by venous streak artifact. Bilateral vertebral arteries are patent. Vertebrobasilar junction is normal with normal-appearing basilar artery. Superior cerebellar and posterior cerebral arteries are unremarkable. No aneurysms are seen in the anterior or posterior circulations. Orbits and globes are intact. Paranasal sinuses and mastoidair cells are clear. No enhancing neck masses are demonstrated. There is no adenopathy in the neck. The thyroid gland appears normal. Lung apices are clear. Remote-appearing left 2nd rib fracture is pre sent. IMPRESSION: No large vessel occlusion is identified. Bilateral carotid atherosclerotic diseasewithout significant PAGE 1 Signed Report (CONTINUED) Name: OTONIEL HENDERSON [facility] : 1960 Age/S: 60 / M [address] Unit #: [id number] Loc: [place] [address] Phys: Anjum Rivera MD Acct: [id number] Dis Date: Status: PRE ER PHONE #: [phone] Exam Date: 10/30/2020 1235 FAX #: Reason: slurred speech EXAMS: CPT: [id number] CT ANGIO NECK [address] <Continued> stenosis. Findings were personally discussed with Dr. Rivera at 1253 hours on 10/30/2020. All qualitative and quantitative assessments of carotid bifurcation and proximal internal carotid artery stenosis are made referencing the distal internal carotid artery (NASCET criteria). FOR INTERNAL CODING PURPOSES ONLY RESULT CODE: CVR at 1300 Reported and signed by: Katarzyna Lozada M.D. CC: Anjum Rivera MD Rick hnologist:Yohan Love, RT(R)(CT); Kr CTDI: DLP: Trnscb Date/Time: 10/30/2020 (1300) [email or web address] Orig Print D/T: S: 10/30/2020 (1303) PAGE 2 Signed Report- CT ANGIO [id number] 13:00:00 [facility] : 1960 Sex: M Name: OTONIEL HENDERSON : 1960 Age/S: 60 / M [address] #: [id number] Loc: [place] [address] Phys: Anjum Rivera MD Acct: [id number] Dis Date: Status: PRE ER PHONE #: [phone] Exam Date: 10/30/2020 1233 FAX #: Reason: slurred speech EXAMS: CPT: [id number] CT ANGIO HEAD [address]65 EXAMINATION: - CT ANGIO HEAD, - CT ANGIO NECK. LOCATION: B2. HISTORY: slurredspeech. COMPARISON: None. TECHNIQUE: Contiguous axial sections were [...] reconstruction technique. FINDINGS: Mixed calcific plaques are seenat the aortic arch. Mixed calcific plaques are seen in bilateral common carotid arteries and carotidbifurcations without significant stenosis. Mixed calcific plaques are seen in bilateral cervical, cavernous, and supraclinoid ICAs without significant stenosis. Intracranially, bilateral ICA bifurcations are normal with patent bilateral anterior and middle cerebral arteries. A 2nd right REECE arises offthe left REECE. No stenosis or occlusion is noted on either side. Anterior communicating artery appears unremarkable. The origin of the left vertebral artery is obscured by venous streak artifact. Bilateral vertebral arteries are patent. Vertebrobasilar junction is normal with normal-appearing basilar artery. Superior cerebellar and posterior cerebral arteries are unremarkable. No aneurysms are seen in the anterior or posterior circulations. Orbits and globes are intact. Paranasal sinuses and mastoidair cells are clear. No enhancing neck masses are demonstrated. There is no adenopathy in the neck. The thyroid gland appears normal. Lung apices are clear. Remote-appearing left 2nd rib fracture is pre sent. IMPRESSION: No large vessel occlusion is identified. Bilateral carotid atherosclerotic diseasewithout significant PAGE 1 Signed Report (CONTINUED) Name: OTONIEL HENDERSON : 1960 Age/S: 60 / M [address] #: [id number] Loc: [place] [address] Phys: Anjum Meraz MD Acct: [id number] Dis Date: Status: PRE ER PHONE #: [phone] Exam Date: 10/30/2020 1233 FAX #: Reason: slurred speech EXAMS: CPT: [id number] CT ANGIO HEAD [address] <Continued> stenosis. Findings were personally discussed with [...] 10/30/2020 (1303) PAGE 2 Signed ReportBASIC METABOLIC [id number] 12:50:00 Test Item Value Reference Range Interpretation [...] 8.9 MG/DL 8.5-10.1 N Completed by Nursing: [id number] 12:50:00 Test Item Value Reference Range Interpretation [...] suman yby method. Completed by Nursing: NOPROTHROMBIN [id number] 12:47:00 Test Item Value Reference Range Interpretation Comments PT PATIENT (test code = PTP) 10.5 SECONDS 9.3-12.9 N INTERNATIONAL NORMAL RATIO 0.94 INR Unit 0.8-1.2 N (test code = INR) THROMBOPLASTIN TIME [id number] 12:47:00 Test Item Value Reference Range Interpretation Comments THROMBOPLASTIN TIME PARTIAL 27.9 SECONDS 26-35 N (test code = PTT) BASIC METABOLIC [id number] 12:43:00 Test Item Value Reference Range Interpretation [...] 8.9 MG/DL 8.5-10.1 N Completed by Nursing: [id number] 12:43:00 Test Item Value Reference Range Interpretation Comments TROPONIN-I (test code = TROPI) NG/ML 0.000-0.045 Completed by Nursing: NO- CT HEAD/BRAIN W/O [id number] 12:40:00 [facility] : 1960 Sex: M Name: OTONIEL HENDERSON [facility] : 1960 Age/S: 60 / M [address] #: [id number] Loc: [place] [address] Phys: Anjum Rivera MD Acct: [id number] Dis Date: Status: PRE ER PHONE #: [phone] Exam Date: 10/30/2020 1231 FAX #: Reason: Code Stroke EXAMS: CPT: [id number] CT HEAD/BRAIN W/O CONT 45992 EXAMINATION: - CT HEAD/BRAIN W/O CONT. LOCATION: S17. HISTORY: Code Stroke, right-sided weakness, slurred speech, history of stroke. COMPARISON: None. TECHNIQUE: Routine CTof the head was performed without intravenous contrast [...] 1 Signed Report (CONTINUED) Name: OTONIEL HENDERSON [place] : 1960 Age/S: 60 / M [address] Unit #: [id number] Loc: [place] [address] Phys: Anjum Rivera MD Acct: [id number] DisDate: Status: PRE ER PHONE #: [phone] Exam Date: 10/30/2020 1231 FAX #: Reason: Code Stroke EXAMS: CPT: [id number] CT HEAD/BRAIN W/O CONT 19101 <Continued> at 1240 Reported and signed by: Manjinder Antonio M.D. CC: Anjum Rivera MD Technologist:Yohan Love RT(R)(CT); Anderson CTDI: DLP: Trnscb Date/Time: 10/30/2020 (1240) [email or web address] Orig Print D/T: S: 10/30/2020 (8673) PAGE 2 Signed ReportCB W/O [id number] 12:35:00 Test Item Value Reference Range Interpretation [...] 10.70 fL 7.0-9.6 H MPV) GLUCOSE BEDSIDE [id number] 12:29:00 Test Item Value Reference Range Interpretation Comments GLUCOSE BEDSIDE TESTING (test code 140 mg/dL 70-110 H = GLUBED) BASIC METABOLIC [id number] 06:50:00 Test Item Value Reference Range Interpretation [...] mg/dL 8.8-10.2 N = CA) CBC W/AUTO [id number] 06:40:00 Test Item Value Reference Range Interpretation [...] BA#) 0.07 x10 3/uL 0.0-0.20 N VANCOMYCIN [id number] 13:34:00 Test Item Value Reference Range Interpretation Comments VANCOMYCIN TROUGH (test code = 14.4 mcg/ML 10.0-20.0 N VANCT) Spec Comments: RN PLS DRAW VANCO 30MIN [facility] [id number] 04:08:00 Test Item Value Reference Range Interpretation [...] code 8.8 mg/dL 8.8-10.2 N = CA) [id number] 04:08:00 Test Item Value Reference Range Interpretation Comments MAGNESIUM (test code = MAG) 1.7 mg/dL 1.4-2.6 N CBC W/AUTO [id number] 03:56:00 Test Item Value Reference Range Interpretation [...] 0.09 x10 3/uL 0.0-0.20 N BASIC METABOLIC [id number] 21:22:00 Test Item Value Reference Range Interpretation [...] mg/dL 8.8-10.2 N = CA) RENAL FUNCTION [id number] 21:22:00 Test Item Value Reference Range Interpretation Comments ALBUMIN (test code = ALB) 3.4 G/DL 3.5-5.0 L PHOSPHOROUS (test code = PHOS) 2.0 mg/dL 2.7-4.5 L LIVER FUNCTION [id number] 21:22:00 Test Item Value Reference Range Interpretation [...] = 63 U/L 45-120 N ALKP) LACTIC [id number] 21:18:00 Test Item Value Reference Range Interpretation Comments LACTIC ACID (test code = LACT) 9.4 mg/dL 4.5-18.0 N PROTHROMBIN [id number] 21:12:00 Test Item Value Reference Range Interpretation Comments PROTHROMBIN TIME 10.8 SECONDS 10.3-12.9 N PATIENT (test code = PTP) INTERNATIONAL 0.96 INR UNIT 0.9-1.11 N The INR is us eful only NORMAL RATIO (test for monit oring code = INR) anticoagulant therapy.It may be unreliable in t he initial phase o f antigoagulation and in unstable patien ts. Indication for Anticoagulation Recommended INR 1. Prevention of v enous thomboembolism 2.0-3.0in high- risk patients; treat ment of venousthrombosi s and pulmonary embol ism aftera course o f heparin; preven tion of systemicembolis m in a variety of cond itions, including atria l fibrillation an d prothetic tissu e heart valves, 2. Pros thetic mechanical hear t valves; 2.5-3.5recurren t systemic emboli sm. THROMBOPLASTIN TIME [id number] 21:12:00 Test Item Value Reference Range Interpretation Comments THROMBOPLASTIN TIME 28.6 SECONDS 26.0-35.9 N INTERPRE TATIVE PARTIAL (test code = : erapeutic PTT) range: Unfractionated heparin:47 - 71 seconds Argatroban:1.5 to 3 times the basel ine PTT PROTHROMBIN [id number] 21:09:00 Test Item Value Reference Range Interpretation Comments PROTHROMBIN TIME 10.8 SECONDS 10.3-12.9 N PATIENT (test code = PTP) INTERNATIONAL 0.96 INR UNIT 0.9-1.11 N The INR is us eful only NORMAL RATIO (test for monit oring code = INR) anticoagulant therapy.It may be unreliable in t he initial phase o f antigoagulation and in unstable patien ts. Indication for Anticoagulation Recommended INR 1. Prevention of v enous thomboembolism 2.0-3.0in high- risk patients; treat ment of venousthrombosi s and pulmonary embol ism aftera course o f heparin; preven tion of systemicembolis m in a variety of cond itions, including atria l fibrillation an d prothetic tissu e heart valves, 2. Pros thetic mechanical hear t valves; 2.5-3.5recurren t systemic emboli sm. THROMBOPLASTIN TIME [id number] 21:09:00 Test Item Value Reference Range Interpretation Comments THROMBOPLASTIN TIME PARTIAL (test SECONDS 26.0-35.9 code = PTT) CBC W/AUTO [id number] 21:08:00 Test Item Value Reference Range Interpretation [...] 0.05 x10 3/uL 0.0-0.20 N CBC W/MANUAL [id number] 05:21:00 Test Item Value Reference Range Interpretation [...] code NORMAL NORMAL = PLTMORPH) RENAL FUNCTION [id number] 05:20:00 Test Item Value Reference Range Interpretation [...] 2.5 mg/dL 2.7-4.5 L code = PHOS) [id number] 05:20:00 Test Item Value Reference Range Interpretation Comments MAGNESIUM (test code = MAG) 1.8 mg/dL 1.4-2.6 N CBC W/MANUAL [id number] 04:48:00 Test Item Value Reference Range Interpretation [...] code = LYMPH) % 20.5-45.5 CBC W/MANUAL [id number] 04:48:00 Test Item Value Reference Range Interpretation [...] (test code = LYMPH) % 20.5-45.5 SURGICAL [id number] 12:52:00 RUN DATE: 01/29/20 [facility] - LAB PAGE 1 RUN TIME: 1252 Specimen Inquiry RUN USER: INTERFACE ------- -----PATIENT: OTONIEL HENDERSON LOC: PJuliana7S POD C U #: [id number] AGE/SX: 59/M ROOM: [facility] RE01/25/20REG DR: Cristopher Doty MD : [birth year] BED: 1 DIS: STATUS: ADM IN TLOC: SPEC #: [id number] RECD: 01/28/20 STATUS: FAINA REFabiana #: [id number] SIMON: 01/28/201346 [facility] DR: Cristopher Doty MD ENTERED: 01/28/20 SP TYPE: SURG OTHR DR: Roxanna Primary or Family Physician Mio [facility] MD No,DocORDERED: PATHGM3, PATHGM5/2, PATH SPEC, H E STAIN HISTOLOGY: TISSUE ID BLK PCS PARISH LEV / PROCEDURE DISPOSITION ____ ___ ___ ___ ___ COLON SEG NTUMR A 18 1 TISSUES: A.COLON SEGMENTAL [id number] - Sigmoid Colon Proximal Rectum Anastomatic Donuts, [...] length, 2 cm in diameter), and two ring-shaped (donuts) segments of intestine (2 x 1.7 x 1.5 cm, CONTINUED ON NEXT PAGE RUN DATE: 01/29/20 [facility] - LAB PAGE 2 RUN TIME: 1252 Specimen Inquiry RUN USER: INTERFACE SPEC #: [id number] PATIENT: OTONIEL HENDERSON #[id number] (Continued)------- ----- GROSS DESCRIPTION (Continued) 2.4 x 2 x 1.5 cm). The middle portion of the large intestine is rigid and thickened, reducing the luminal circumference from 5.5 cm to 3.5 cm circumference. At this site, there is an irregular area of serosal and soft tissue defects, measuring 4 x 4 cm. A small punctate lesion that communicates to the lumen is present. Sectioning through this region demonstrates increased fibroses in the pericolonic soft tissues associated with possible diverticula. Adjacent to the area of bowel thickening there is an area of mucosal erythema and friability, measuring 1.1 x 0.9 cm. The remainder of the large intestine shows multiple diverticula. The segment of small intestine is looped and joined atboth ends by a line of surgical fabby. There is an area of serosal defect and irregularity measuring 1.5 x 1 cm. A punctate full thickness defect is present within this area that opens into the lumenof the small bowel. The lumen contains green-yellow fecal fluid. No mucosal lesions or masses are seen. The ring-shaped "donuts", one with metal surgical fabby and the other with blue sutures, are grossly unremarkable. SECTION CODE: A1: Large intestine margin, en face A2-A3: Opposite large intestinemargin, en face A4: Section of large intestine through punctate full thickness defect A5-A6: Sectionof large intestine with wall thickening and fibroses A7: Section of large intestine with mucosal erythema A8: Section of large intestine with diverticula A9: Small intestine margin, en face A10: Opposite small intestine margin, en face A11: Section of small intestine through full thickness defect A12:Section of small intestine with serosal defect A13: Section of small intestine adjacent to serosal defect A14-A15: Entire ring-shaped donut #1 (with metal staple) A16-A18: Ring-shaped donut #2 (with blue sutures) DATA ASSISTANT/th MICROSCOPIC DESCRIPTION Microscopic examination performed. Signed SIGNATURE ON FILE Nita Ashford 01/29/20 9222 END OF REPORT BASIC METABOLIC [id number] 08:29:00 Test Item Value Reference Range Interpretation [...] code 9.2 mg/dL 8.8-10.2 N = CA) [id number] 08:29:00 Test Item Value Reference Range Interpretation Comments MAGNESIUM (test code = MAG) 1.3 mg/dL 1.4-2.6 L CBC W/AUTO [id number] 08:04:00 Test Item Value Reference Range Interpretation [...] x10 3/uL 0.0-0.20 N Novel Coronavirus 2018 [id number] 14:20:00 Test Item Value Reference Range Interpretation Comments Novel Coronavirus NEGATIVE Positive r esults are 2019 nCoV (test indicative o f the presence code = COVID19) lgYGOX-PxV-7 RNA, clinical correlation wit h patient historyand [...] storag e conditions, and /or stageof infection. Loren l RNA mutations, vacc inations, antiviraltherap eutics, antibiotics, chemotherapeuti c orimmunosuppres radha drugs have not been e valuated for effectson d etection. Results are for the identification of SARS-CoV-2 RNA usingthe Waddle M2000 Sy stem under the FDA Emergen cy UseAuthorizatio n. The testing is perf ormed by personneltraine d in the procedures for the [place]rbina M2000 molecular diagnostic SARS-CoV-2 assa y in vitro. NEGATIVE Value reported toFirst Name: SAVITA Last Name:[facility] RESULTS READ BACK AND VERIFIEDbyP.LAB.RS, on 01/26/20, @ 1934.- XR ABDOMEN [id number] 14:18:00Patient Name: OTONIEL HENDERSON Unit No: [id number] EXAMS: CPT CODE: [id number] XR ABDOMEN 1V 04731 Abdomen one view supine 01/28/2020 CLINICAL INDICATION: [...] Dt/Tm: 01/28/2020 (1418) by:[email or web address] Printed Date/Time: 01/28/2020 (0751) Name: OTONIEL HENDERSON [facility] Phys: José Antonio Zamora MD [address] : 1960 Age: 59 Sex: [place] [address] Loc: P.0733 1 Exam Date: 01/28/2020 Status: ADM IN PH: FAX: PAGE 1 Signed ReportCOMPREHENSIVE METABOLIC [id number] 07:39:00 Test Item Value Reference Range Interpretation [...] 45-120 N PHOSPHATASE (test code = ALKP) [id number] 07:39:00 Test Item Value Reference Range Interpretation Comments MAGNESIUM (test code = MAG) 1.4 mg/dL 1.4-2.6 N CBC W/AUTO [id number] 07:12:00 Test Item Value Reference Range Interpretation [...] = BA#) 0.10 x10 3/uL 0.0-0.20 N [id number] 15:08:00 Test Item Value Reference Range Interpretation Comments LITHIUM (test 0.5 mmol/L 0.6-1.2 L Detection Breen it = 0.1 code = LITH) <0.1 indicates None DetectedPerform ed At: [facility] [address] [id number] Kyle L MD Ph:[phone] [id number] 15:08:00 Test Item Value Reference Range Interpretation Comments LITHIUM (test 0.5 mmol/L 0.6-1.2 L Detection Breen it = 0.1 code = LITH) <0.1 indicates None DetectedPerform ed At: [facility] [address] [id number] Jacky So MD Ph:[phone] Novel Coronavirus 2018 [id number] 07:11:00 Test Item Value Reference Range Interpretation [...] PHOSPHATASE (test code = ALKP) CBC W/AUTO [id number] 04:21:00 Test Item Value Reference Range Interpretation [...] 3/uL 0.0-0.20 N - CT ABD PELVIS [id number] 09:58:00Patient Name: OTONIEL HENDERSON Unit No: [id number] EXAMS: CPT CODE: [id number] CT ABD PELVIS W/CONT 61437 CT abdomen and pelvis with IV contrast. [...] reconstruction technique. Findings: Lungs bases: There is atelectasis/scarring at the lung bases. There is a left lowerlobe calcified granuloma. Liver: There are 2 calcified granulomas. Gallbladder: There are no radiodense gallstones. There is no significant gallbladder wall thickening or pericholecystic stranding. Pancreas: Unremarkable. Spleen: There are 2 calcified granulomas. Adrenal glands: There is no adrenal mass. Kidneys: There are bilateral renal calculi measuring up to 5 mm on the left. There is no hydrone phrosis or hydroureter. There is a septated 3.2 cm right renal cyst. Bowel: There is no bowel obstruction. There is sigmoid colon wall thickening with mild pericolonic stranding and fluid. There are diffuse colonic diverticula. The appendix is within normal limits. Peritoneum: There is no ascites or pn eumoperitoneum. Pelvis: The urinary bladder appears smooth-walled. The prostate is not enlarged. Vascular: There is no abdominal aortic aneurysm. There are moderate arterial atherosclerotic calcifications. Skeletal: There is no acute fracture. There is mild retrolisthesis of L4 over L5. Multilevel intervertebral cisterns advanced at L5-S1 with endplate sclerosis and vacuum disc phenomenon. Impression: Sigmoid colon wall thickening with pericolonic inflammation, given that there are diffuse, diverticula, this is suggestive of diverticulitis. A sigmoidoscopy is recommended when feasible. No drainablefluid collection or pneumoperitoneum. Bilateral nephrolithiasis without evidence for obstructive uropathy. Evidence of prior granulomatous disease. Bosniak type II septated right renal cyst. Additionalfindings as above. Name: OTONIEL [facility] Phys: VARSHA. - Russ William MD [address] : 1960 Age: 59 Sex: [place] [address] Loc: P.[id number] 1 Exam Date: 01/26/2020 Status: ADM IN PH: FAX: PAGE 1 Signed Report (CONTINUED) Patient Name: OTONIEL HENDERSON Unit No: [id number] EXAMS: CPT CODE: [id number] CT ABD PELVIS W/CONT [id number] (Continued) at 0958 Reported and signed by: OTONIEL GOTTLIEB M.D. CC: Cristopher Doty MD; Russ William MD Technologist: ANTONIO Martin(Jeannine)(CT) CTDI: 11.68 DLP: 602 Trscr Dt/Tm: 01/26/2020 (0958) by:[email or web address] Printed Date/Time: 01/26/2020 (1001) Name: OTONIEL HENDERSON [facility] Phys: VARSHA.Kole - Russ William MD [address] : 1960 Age: 59 Sex: [place] [address] Loc: P.0723 1 Exam Date: 01/26/2020 Status: ADM IN PH: FAX: PAGE 2 Signed ReportCOMPREHENSIVE METABOLIC PANEL 2020-01-26 05:50:00 Test Item Value Reference Range Interpretation [...] PHOSPHATASE (test code = ALKP) CBC W/AUTO [id number] 04:55:00 Test Item Value Reference Range Interpretation [...] 0.15 x10 3/uL 0.0-0.20 N COMPREHENSIVE METABOLIC [id number] 18:44:00 Test Item Value Reference Range Interpretation [...] N PHOSPHATASE (test code = ALKP) PROTHROMBIN [id number] 18:32:00 Test Item Value Reference Range Interpretation Comments PROTHROMBIN TIME 10.4 SECONDS 10.3-12.9 N PATIENT (test code = PTP) INTERNATIONAL 0.92 INR UNIT 0.9-1.11 N The INR is us eful only NORMAL RATIO (test for monit oring code = INR) anticoagulant therapy.It may be unreliable in t he initial phase o f antigoagulation and in unstable patien ts. Indication for Anticoagulation Recommended INR 1. Prevention of v enous thomboembolism 2.0-3.0in high- risk patients; treat ment of venousthrombosi s and pulmonary embol ism aftera course o f heparin; preven tion of systemicembolis m in a variety of cond itions, including atria l fibrillation an d prothetic tissu e heart valves, 2. Pros thetic mechanical hear t valves; 2.5-3.5recurren t systemic emboli sm. CBC W/AUTO [id number] 18:26:00 Test Item Value Reference Range Interpretation [...] = BA#) 0.10 x10 3/uL 0.0-0.[address] head/brain wo contrast [facility] [address] [place] [address] Patient Name: Otoniel Henderson Medical Record#: [id number] Address: [address] [place] [address] Dr City/State/Zip: [place] [address]: Alexis Pettit MD Insurance: Self Pay /Age/Sex: 1960/61/M Admit/Reg Date: 05/20/[address]: Marii Bowers NP Location: [facility]/ PCP: Pcp-Md PAULETTE Buenrostro Date of Service: 05/20/22 Order (s): CT head/brain wo contrast CPT Code: 93818 Report Number: [id number] Reason for Exam: lightheadedness Exam: CT of the brain without contrast. History: Lightheadedness Dictation Location: [facility] Technique: Contiguous axial CT images were obtained from the skull base through the vertex without contrast. One or more of the following dose reduction techniques were used: Automated exposure control, adjustment of the mA and/or kV according to patient size, and/or utilization of iterative reconstruction technique. Comparison: None Findings: There is a large chronic left MCA territory infarct. A small chronic left cerebellar infarct is demonstrated. Subcortical and periventricular white matter hypodensities likely reflect chronic microvascular ischemic changes. The basal cisterns are patent. There is no mass effect or midlineshift. There is no evidence for acute territorial infarction. There are no extra-axial fluid collections. The paranasal sinuses and mastoid air cells are clear. Impression: 1. No CT evidence of an acute intracranial abnormality. 2. Large chronic left MCA territory infarct. Small left cerebellar infarct. Chronic microvascular ischemic changes. Electronically signed by: Otoniel Gottlieb MD 05/20/2022 9:59 PM CDT Dictated By: Otoniel Gottlieb MD 05/20/221919 Signed By: Otoniel Gottlieb MD 05/20/222200 TD/TT: 05/20/221919 Tech: 135 cc: SIRISHA; PCPNO* Marii Bowers NP; Pcp-Md Porter MDXR chest 1V [facility] [address] [place] [id number] Patient Name: Otoniel Henderson Medical Record#: [id number] Address: [address] [place] [address] City/State/Zip: [place] [address]: Alexis Pettit MD Insurance: Self Pay /Age/Sex: 1960/61/M Admit/Reg Date: 05/20/[address]: Marii Bowers NP Location: [facility]/ PCP: Pcp-Md PAULETTE Buenrostro Date of Service: 05/20/22 Order (s): XR chest 1V CPT Code: 49300 Report Number: [id number] Reason for Exam: hypotension CHEST 1 VIEW CLINICAL INFORMATION: hypotension COMPARISON: None FINDINGS: The lungs are underexpanded. No airspace consolidation is seen.No pneumothorax or pleural effusion is present. The heart size is normal. The aorta is calcified andslightly tortuous. Old left posterolateral 3-6 rib fractures are noted. A cardiac loop recorder is noted. IMPRESSION: 1. Shallow inspiration. 2. No acute cardiopulmonary finding is identified. LOCATION: R16 Electronically signed by: Eugenio Elam MD 05/20/2022 5:13 PM CDT Dictate d By: Eugenio Elam MD 05/20/221702 Signed By: Eugenio Elam MD 05/20/221715 TD/TT: 05/20/221702 Tech: [facility] cc: SIRISHA; PCPROXANNA* Marii Bowers NP; Pcp-Md Porter MDEKG ED Electrocardiogram [facility] [address] [place] [address] Patient Name: Otoniel Henderson Medical Record#: [id number] Address: [facility] City/State/Zip: [place] [id number] Attending Dr: Erickson Abraham MD Insurance: [facility] Medicare Advantage /Age/Sex: 1960/61/M Medicaid [place] Admit/Reg Date: 05/20/[address]: Marii Bowers NP Location: [address] PCP: Md PAULETTE Dao Date of Service: 05/20/22 Order(s): EKG ED Electrocardiogram CPT Code: 15074 Report Number: [id number] Reason for Exam: hypotension Sinus or ectopic atrial rhythm Short CT interval Summary: Borderline ECG Dictated By: Luis Jean MD 05/20/221810 Signed By: Luis Jean MD 05/21/221822 TD/TT: 05/20/221810 Tech: SVCCPACS cc: [email or web address]; PCPNO* Marii Bowers NP; Pcp-Md PAULETTE Buenrostro
[2022-06-28] MEDS ORDERED: NA CHLORIDE 0.9% 1,000 ML ONE (17:32)
[2022-06-28] MEDS ORDERED: FOLIC ACID 5 MG/ML VIAL ONE (17:32)
[2022-06-28 18:01] LABS: Absolute Lymphocytes (CBC) 1.5 K/uL (0.7-4.9); Hematocrit 36.2 % (39.6-49.0); Lymphocytes % 16.7 % (15.3-44.8); MCV 78.8 fL (80-100); MPV 8.2 fL (7.6-11.3); RBC Red Blood Cell Count 4.59 M/uL (4.33-5.43)
--- NOTE | 2022-06-28 18:02 | RAD REPORT ---
EXAM DESCRIPTION: Jena Single View06/28/2022 5:57 pm CLINICAL HISTORY: cough COMPARISON: February 2022 FINDINGS: The lungs appear clear of acute infiltrate. The heart is normal size. 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
[2022-06-28 18:17] LABS: SARS-CoV-2 Antigen Rapid Res Negative (Negative)
--- NOTE | 2022-06-28 18:18 | RAD REPORT ---
EXAM DESCRIPTION: CT - Head Brain Wo Cont - 06/28/2022 6:04 pm CLINICAL HISTORY: Headache COMPARISON: January 2022 TECHNIQUE: Computed axial tomography of the head was obtained. IV contrast was not requested. All CT scans are performed using dose optimization technique as appropriate and may include automated exposure control or mA/KV adjustment according to patient size. FINDINGS: An intracranial bleed is not seen . The ventricles are normal in caliber. No extra-axial fluid collection is noted. Moderate to large left cerebral infarction is relatively old. Fluid within the sinuses/ mastoids is not seen. IMPRESSION: No acute intracranial abnormality is seen. If patient's symptoms persist MRI of the bra in would be recommended.
[2022-06-28 18:19] LABS: Protime INR 1.03
[2022-06-28 18:35] LABS: ALT/SGPT 21 U/L (12-78); AST/SGOT 15 U/L (15-37); Albumin 3.6 g/dL (3.4-5.0); Alkaline Phosphatase 107 U/L (45-117); BUN Blood Urea Nitrogen 9 mg/dL (7-18); Bicarbonate 24 mmol/L (21-32); Bilirubin Direct < 0.1 mg/dL (0-0.2); Bilirubin Total 0.3 mg/dL (0.2-1.0); C-Reactive Protein < 2.90 mg/L (<3.00); Glomerular Filtration Rate 75 ml/min (=/>90); Glucose Level 99 mg/dL (74-106); NT PRO-BNP 108 pg/mL (<125); Potassium 4.1 mmol/L (3.5-5.1); Protein, Total 7.1 g/dL (6.4-8.2); Sodium Level 138 mmol/L (136-145); Troponin High Sensitivity 13.5 pg/mL (<58.9)
[2022-06-28] MEDS ORDERED: CLOPIDOGREL 75 MG TABLET ONE (18:53)
[2022-06-28] MEDS ORDERED: NA CHLORIDE 0.9% 250 ML ONE (18:53)
[2022-06-28] MEDS ORDERED: ASPIRIN EC 81 MG TAB PO ONE (18:53)
[2022-06-28] MEDS ORDERED: LEVETIRACETAM 500 MG/5 ML VIAL IV ONE (18:53)
--- NOTE | 2022-06-28 19:16 | EDPHYS ---
Physician Documentation [facility] Name: Gregory Dumont Age: 62 yrs Sex: Male : 1960 Arrival Date: 06/28/2022 Time: 16:34 Bed 14 Private MD: ED Physician Mick Arshad HPI: 06/28 17:54 This 62 yrs old Male presents to ER via EMS with complaints of 911 CALLED BY foster AGUIRRE FOR SLURRED SPEECH. SPEECH SLURRED AT BASELINE. Historical: - Allergies: 16:37 No Known Allergies; bp - PMHx: 16:37 adhd; Anxiety; Bipolar disorder; Hypertensive disorder; strokes x 3; bp 16:38 Alcoholism; bp - PSHx: 16:37 colon resection; knee replacements; bp - Immunization history:: Adult Immunizations up to date. - Social history:: Smoking status: Patient reports the use of cigarette tobacco products, unknown amount. ROS: 17:55 Constitutional: Negative for fever, chills, and weight loss, Eyes: Negative for injury, foster pain, redness, and discharge, ENT: Negative for injury, pain, and discharge, Neck: Negative for injury, pain, and swelling, Cardiovascular: Negative for chest pain, palpitations, and edema, Respiratory: Negative for shortness of breath, cough, wheezing, and pleuritic chest pain, Abdomen/GI: Negative for abdominal pain, nausea, vomiting, diarrhea, and constipation, Back: Negative for injury and pain, : Negative for injury, bleeding, discharge, and swelling, MS/Extremity: Negative for injury and deformity, Skin: Negative for injury, rash, and discoloration, Psych: Negative for depression, anxiety, suicide ideation, homicidal ideation, and hallucinations, Allergy/Immunology: Negative for hives, rash, and allergies, Endocrine: Negative for neck swelling, polydipsia, polyuria, polyphagia, and marked weight changes, Hematologic/Lymphatic: Negative for swollen nodes, abnormal bleeding, and unusual bruising. 17:55 Neuro: Positive for headache, speech changes. Exam: 17:55 Constitutional: This is a well developed, well nourished patient who is awake, alert, foster and in no acute distress. Head/Face: Normocephalic, atraumatic. Eyes: Pupils equal round and reactive to light, extra-ocular motions intact. Lids and lashes normal. Conjunctiva and sclera are non-icteric and not injected. Cornea within normal limits. Periorbital areas with no swelling, redness, or edema. ENT: Nares patent. No nasal discharge, no septal abnormalities noted. Tympanic membranes are normal and external auditory canals are clear. Oropharynx with no redness, swelling, or masses, exudates, or evidence of obstruction, uvula midline. Mucous membranes moist. Neck: Trachea midline, no thyromegaly or masses palpated, and no cervical lymphadenopathy. Supple, full range of motion without nuchal rigidity, or vertebral point tenderness. No Meningismus. Chest/axilla: Normal chest wall appearance and motion. Nontender with no deformity. No lesions are appreciated. Cardiovascular: Regular rate and rhythm with a normal S1 and S2. No gallops, murmurs, or rubs. Normal PMI, no JVD. No pulse deficits. Respiratory: Lungs have equal breath sounds bilaterally, clear to auscultation and percussion. No rales, rhonchi or wheezes noted. No increased work of breathing, no retractions or nasal flaring. Abdomen/GI: Soft, non-tender, with normal bowel sounds. No distension or tympany. No guarding or rebound. No evidence of tenderness throughout. Back: No spinal tenderness. No costovertebral tenderness. Full range of motion. Male : Normal genitalia with no discharge or lesions. Skin: Warm, dry with normal turgor. Normal color with no rashes, no lesions, and no evidence of cellulitis. MS/ Extremity: Pulses equal, no cyanosis. Neurovascular intact. Full, normal range of motion. Psych: Awake, alert, with orientation to person, place and time. Behavior, mood, and affect are within normal limits. 17:55 Neuro: Orientation: is normal, appropriate for stated age, no acute changes, Mentation: is normal, appropriate for stated age, no acute changes, Memory: unable to test, Cranial nerves: grossly normal, is grossly normal based on the patient's age, no acute changes, Cerebellar function: is grossly normal based on the patient's age, no acute changes, Motor: is normal, is grossly normal based on the patient's age, no acute changes, moves all fours, strength is normal, Sensation: is normal, no obvious gross deficits, no acute changes, Gait: not applicable is steady, appropriate for age, Babinski testing is normal, seizure activity, is not displayed by the patient. 18:00 Radiologist reports: NO ACUTE CHANGES foster 18:41 ECG was reviewed by the Attending Physician. foster Vital Signs: 16:35 BP 138 / 91; Pulse 78; Resp 16; Temp 98; Pulse Ox 96% ; bp 18:02 BP 154 / 93; Pulse 57; Resp 16; Pulse Ox 100% ; bp 22:01 BP 134 / 84; Pulse 64; Resp 17; Pulse Ox 98% on R/A; bm7 MDM: 16:57 Patient medically screened. foster 17:57 Differential diagnosis: CVA, TIA, metabolic disorder, drug effects. Differential foster Diagnosis: CVA, electrolyte abnormality, hypoglycemia, intracranial bleed, overdose, seizure, volume depletion. Data reviewed: vital signs, nurses notes, lab test result(s), EKG, radiologic studies. Data interpreted: unit trust manager: rate is 78 beats/min, rhythm is regular, Pulse oximetry: on room air is 96 %. Test interpretation: by ED physician or midlevel provider: ECG, plain radiologic studies. Counseling: I had a detailed discussion with the patient and/or guardian regarding: the historical points, exam findings, and any diagnostic results supporting the discharge/admit diagnosis, lab results, radiology results, the need for outpatient follow up. 23:00 ED course: [facility] denied transfer request due to capacity kdr issues.. ED course: I had extensive discussion and review of presentation and findings with the neurology team at [facility] in the Medical Center. We reviewed the findings from the January visit to [facility]. We reviewed the studies from the visit today. This included the CT angiogram of the neck indicating the severe stenosis at the base of the left vertebral artery. It was the feeling of the neurology team at [facility] that this would not require emergent intervention in fact he may not require any intervention at all but rather just medical management. Given that, the primary immediate evaluation and treatment would center on medical management and further evaluation with MRI. They offered to take the patient if we were unable to provide the services. I reviewed the case with Dr. Romero and he indicated that maintain the patient at the facility for further evaluation would be appropriate and he would see the patient in consult tomorrow. 06/28 16:59 Order name: Basic Metabolic Panel [facility] 06/28 16:59 Order name: CBC with Diff; Complete Time: 22:17 [facility] 06/28 16:59 Order name: LFT's [facility] 06/28 16:59 Order name: Magnesium [facility] 06/28 16:59 Order name: NT PRO-BNP [facility] 06/28 16:59 Order name: PT-INR [facility] 06/28 16:59 Order name: Troponin HS [facility] 06/28 16:59 Order name: Sed Rate; Complete Time: 22:17 [facility] 06/28 16:59 Order name: CRP [facility] 06/28 16:59 Order name: SARS RAPID; Complete Time: 18:35 [facility] 06/28 17:52 Order name: ETOH Level [facility] 06/28 17:52 Order name: Salicylate [facility] 06/28 16:59 Order name: XRAY Chest (1 view); Complete Time: 18:04 [facility] 06/28 16:59 Order name: EKG; Complete Time: 17:00 [facility] 06/28 16:59 Order name: CT Stroke Brain w/o Contrast [facility] 06/28 17:52 Order name: Urine Drug Screen; Complete Time: 22:17 [facility] 06/28 17:57 Order name: CT Head Brain wo Cont; Complete Time: 18:35 bp 06/28 18:44 Order name: CT Head Angio; Complete Time: 20:37 [facility] 06/28 18:44 Order name: CT Neck Angio; Complete Time: 20:30 [facility] 06/28 20:50 Order name: CBC Smear Scan; Complete Time: 22:17 [facility] 06/28 21:19 Order name: Urine Dipstick-Ancillary; Complete Time: 22:17 [facility] 06/28 22:30 Order name: PTT, Activated Partial Thromb [facility] 06/28 22:30 Order name: Acetaminophen Level [facility] 06/28 16:59 Order name: Cardiac monitoring; Complete Time: 17:39 [facility] 06/28 16:59 Order name: EKG - Nurse/Tech; Complete Time: 17:39 [facility] 06/28 16:59 Order name: IV Saline Lock; Complete Time: 17:40 [facility] 06/28 16:59 Order name: Labs collected and sent; Complete Time: 17:40 [facility] 06/28 16:59 Order name: O2 Per Protocol; Complete Time: 17:40 [facility] 06/28 16:59 Order name: O2 Sat Monitoring; Complete Time: 17:40 foster 06/28 17:52 Order name: Suicide Screening ([place]); Complete Time: 17:54 foster EC:41 Rate is 52 beats/min. Rhythm is regular. QRS [place] is Normal. LA interval is normal. QRS foster interval is normal. QT interval is normal. No Q waves. T waves are Normal. No ST changes noted. Clinical impression: Sinus bradycardia and No evidence of ischemia. Interpreted by me. Reviewed by me. Administered Medications: 17:30 Drug: foLIC Acid 1 mg Route: IVPB; Site: left forearm; bp 17:30 Drug: NS 0.9% 1000 ml Route: IV; Rate: 1 bolus; Site: left forearm; bp 18:51 Drug: Aspirin 81 mg Route: PO; bp 18:51 Drug: PlaVIX (clopidogrel) 75 mg Route: PO; bp 18:51 Drug: Keppra (levETIRAcetam) 1000 mg Route: IV; Rate: per protocol; Site: left forearm; bp Disposition Summary: 06/28/22 19:16 Hospitalization Ordered Hospitalization Status: Observation foster Provider: Dionte Prieto cha Location: Telemetry/MedSurg (observation) foster Condition: Stable foster Problem: new foster Symptoms: have improved foster Bed/Room Type: Standard foster Room Assignment: 424(06/28/22 22:51) mw Diagnosis - Weakness foster - Aphasia following cerebral infarction - HISTORY OF foster Forms: - Medication Reconciliation Form foster - SBAR form foster Signatures: Dispatcher [employer] EDBrenda Escobar RN RN mw Anderson, Corey, MD MD cha Rittger, Kevin, MD MD kdr Peltier, Brian, RN RN bp Corrections: (The following items were deleted from the chart) 22:29 17:53 PTT, ACTIVATED+COAG.LAB.BRZ ordered. EDMS EDMS 22:30 17:53 ACETAMINOPHEN+C.LAB.BRZ ordered. EDMS EDMS 22:50 19:16 foster 22:51 22:50 419 mw mw
--- NOTE | 2022-06-28 19:16 | ER ---
Nurse's Notes [facility] Name: Gregory Dumont Age: 62 yrs Sex: Male : 1960 Arrival Date: 06/28/2022 Time: 16:34 Bed 14 Private MD: Diagnosis: Weakness;Aphasia following cerebral infarction-HISTORY OF Presentation: 06/28 16:35 Chief complaint: EMS states: 911 CALLED BY ROLLYAT FOR SLURRED SPEECH, SPEECH bp SLURRED AT BASELINE. Coronavirus screen: At this time, the client does not indicate any symptoms associated with coronavirus-19. Ebola Screen: No symptoms or risks identified at this time. Initial Sepsis Screen: Does the patient meet any 2 criteria? No. Patient's initial sepsis screen is negative. Does the patient have a suspected source of infection? No. Patient's initial sepsis screen is negative. Risk Assessment: Do you want to hurt yourself or someone else? Patient reports no desire to harm self or others. Onset of symptoms is unknown. Care prior to arrival: Glucose check: 142. 16:35 Method Of Arrival: EMS: [facility] bp 16:35 Acuity: MARION 4 bp 17:17 Acuity: MARION 3 iw Triage Assessment: 16:37 General: Appears in no apparent distress. Behavior is calm, cooperative, appropriate bp for age. Pain: Denies pain. EENT: No deficits noted. Neuro: AT BASELINE. Cardiovascular: No deficits noted. Respiratory: No deficits noted. GI: No signs and/or symptoms were reported involving the gastrointestinal system. : No signs and/or symptoms were reported regarding the genitourinary system. Derm: No deficits noted. Musculoskeletal: No deficits noted. Historical: - Allergies: 16:37 No Known Allergies; bp - PMHx: 16:37 adhd; Anxiety; Bipolar disorder; Hypertensive disorder; strokes x 3; bp 16:38 Alcoholism; bp - PSHx: 16:37 colon resection; knee replacements; bp - Immunization history:: Adult Immunizations up to date. - Social history:: Smoking status: Patient reports the use of cigarette tobacco products, unknown amount. Screenin:38 Abuse screen: Denies threats or abuse. Denies injuries from another. Nutritional bp screening: No deficits noted. Tuberculosis screening: No symptoms or risk factors identified. Fall Risk None identified. Assessment: 16:38 General: SEE TRIAGE NOTE. bp 18:00 Reassessment: No changes from previously documented assessment. Patient and/or family bp updated on plan of care and expected duration. Pain level reassessed. Vital Signs: 16:35 BP 138 / 91; Pulse 78; Resp 16; Temp 98; Pulse Ox 96% ; bp 18:02 BP 154 / 93; Pulse 57; Resp 16; Pulse Ox 100% ; bp 22:01 BP 134 / 84; Pulse 64; Resp 17; Pulse Ox 98% on R/A; bm7 ED Course: 16:34 Patient arrived in ED. bp 16:35 Patient has correct armband on for positive identification. Placed in gown. Bed in low mb7 position. Call light in reach. Side rails up X 1. Door closed. Noise minimized. Warm blanket given. Client placed on continuous cardiac and pulse oximetry monitoring. NIBP monitoring applied. business computers teacher on. 16:37 Triage completed. bp 16:37 Arm band placed on. bp 16:57 Bjorn Nuno MD is Attending Physician. foster 17:12 Carlos Eduardo Goddard, RN is Primary Nurse. bp 17:30 Inserted saline lock: 22 gauge in left forearm, using aseptic technique. Blood bp collected. IV discontinued, intact, bleeding controlled. 17:43 CT Stroke Brain w/o Contrast In Process Unspecified. EDMS 17:59 XRAY Chest (1 view) In Process Unspecified. EDMS 18:05 CT Head Brain wo Cont In Process Unspecified. EDMS 18:08 EKG done, by ED staff, reviewed by Bjorn Nuno MD. mb7 19:14 Dionte Prieto is Hospitalizing Provider. foster 19:29 Inserted saline lock: 22 gauge in right wrist, using aseptic technique. bp 19:59 CT Head Angio In Process Unspecified. EDMS 19:59 CT Neck Angio In Process Unspecified. EDMS 20:37 Attending Physician role handed off by Bjorn Nuno MD kdr 20:37 Mick Arshad MD is Attending Physician. kdr 21:06 initiated a transfer with Adali from [facility]. She stated she will mw2 call me back in a moment. 21:33 Adali from [facility] called to get patient information. mw2 22:04 [facility] denied due to capacity. mw2 22:04 initiated a transfer with [facility]. mw2 22:[address] Arshad with the Doctor from [facility]. mw2 23:22 Report given to jase prince. [email or web address] Administered Medications: 17:30 Drug: foLIC Acid 1 mg Route: IVPB; Site: left forearm; bp 17:30 Drug: NS 0.9% 1000 ml Route: IV; Rate: 1 bolus; Site: left forearm; bp 18:51 Drug: Aspirin 81 mg Route: PO; bp 18:51 Drug: PlaVIX (clopidogrel) 75 mg Route: PO; bp 18:51 Drug: Keppra (levETIRAcetam) 1000 mg Route: IV; Rate: per protocol; Site: left forearm; bp Medication: 16:38 VIS not applicable for this client. bp Outcome: 19:16 Decision to Hospitalize by Provider. [facility] 23:53 Patient left the ED. marcelino Signatures: Dispatcher [employer] EDMS Bjorn Nuno MD MD cha Rittger, Kevin, MD MD kdr Williams, Irene, RN RN iw Peltier, Brian, RN RN bp [place], MyKena 2 Daisha Tamayo, NIKI PRINCE 7 Elaine Morgan 7 Eber Bansal, NIKI RN [email or web address] Corrections: (The following items were deleted from the chart) 19:29 17:30 Inserted saline lock: 22 gauge in left forearm, using aseptic technique. Blood bp collected. bp
--- NOTE | 2022-06-28 20:26 | RAD REPORT ---
EXAM DESCRIPTION: Geraldo Angio06/28/2022 7:57 pm CLINICAL HISTORY: Slurred speech COMPARISON: None TECHNIQUE: 50 cc Isovue 370 was administered intravenously. 3D MIP reconstruction performed All CT scans are performed using dose optimization technique as appropriate and may include automated exposure control or mA/KV adjustment according to patient size. FINDINGS: Calcified plaque origin of the left vertebral artery results in severe stenosis. Right vertebral artery unremarkable Mild plaque within the common carotid, internal carotid and external carotid arteries bilaterally. No dissection IMPRESSION: Severe stenosis origin of the left vertebral artery NASCET criteria used. Mild 0-49% stenosis Moderate 50-69% stenosis Severe 70-99% stenosis
--- NOTE | 2022-06-28 20:30 | RAD REPORT ---
EXAM DESCRIPTION: CTHead angio06/28/2022 7:57 pm CLINICAL HISTORY: Slurred speech COMPARISON: None TECHNIQUE: CT angiogram of the head was obtained. 3D MIPS reconstruction performed. All CT scans are performed using dose optimization technique as appropriate and may include automated exposure control or mA/KV adjustment according to patient size. FINDINGS: Mild calcified plaque distal internal carotid arteries bilaterally The basilar, anterior cerebral, middle cerebral and posterior cerebral arteries are normal caliber. An aneurysm is not seen. A significant stenosis is not noted. IMPRESSION: No acute abnormality is displayed
[2022-06-28 20:49] LABS: Anisocytosis 1+; Blood Morphology Comment NOTED (NOT SEEN); Platelet Estimate ADEQ; Poikilocytosis 2+; White Blood Cell Scan OK (OK)
[2022-06-28 21:19] LABS: Urine Blood Trace-intact (Negative); Urine Glucose Negative (Negative); Urine Protein Negative (Negative); Urine Specific Gravity 1.015 (1.005-1.030)
[2022-06-28 21:51] LABS: Barbiturates NEGATIVE (NEGATIVE); Benzodiazepines NEGATIVE (NEGATIVE); Cocaine NEGATIVE (NEGATIVE); METHAMPHETAM NEGATIVE (NEGATIVE); Methadone NEGATIVE (NEGATIVE); Opiates NEGATIVE (NEGATIVE); Phencyclidine NEGATIVE (NEGATIVE); THC Cannibis NEGATIVE (NEGATIVE)
--- NOTE | 2022-06-28 22:59 | P.HP ---
Certification for Inpatient Patient admitted to: Observation With expected LOS: <2 Midnights Patient will require the following post-hospital care: None Practitioner: I am a practitioner with admitting privileges, knowledge of patient current condition, hospital course, and medical plan of care. Services: Services provided to patient in accordance with Admission requirements found in Title 42 Section 412.3 of the Code of Federal Regulations Patient History Date of Service: 06/28/22 Reason for admission: Dysphasia History of Present Illness: 62-year-old male with a history of multiple CVAs resulting in weakness and dysphasia, BPD, ADHD was picked up by EMS from the [facility] for slurred speech. Patient does have a history of slurred speech/dysphasia after his previous CVA and with this he is unable to communicate effectively. It is unknown if patient is at his current baseline or if there is worsening in his symptoms, last known well is unknown as well. NIH score is currently 5. He is evaluated in the emergency department with CT of his head without contrast initially which showed no acute intracranial abnormality seen, moderate to large left cerebral infarction is relatively old. 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 Case was discussed with neurology who recommended consultation with tertiary center to determine if patient would benefit with endovascular intervention. ED provider discussed case with neurology from [facility] who stated risks of intervention outweigh benefits and then again discussed with Dr. Romero who recommended medical management and MRI in the morning. Will admit for further evaluation and management. Allergies No Known Allergies Allergy (Verified 01/03/22 20:03) Home Medications: Cyclobenzaprine [Flexeril*] 1 tab PO DAILY 10/24/19 Castine Carbonate [Castine Carbonate ER] 1 tab PO BID 10/24/19 Memantine HCl 1 tab PO BID 10/24/19 Mirtazapine 30 mg PO BEDTIME 10/24/19 Temazepam [Restoril*] 15 mg PO BEDTIME PRN 10/24/19 Venlafaxine HCl [Effexor Xr] 1 cap PO DAILY 10/24/19 Codeine/APAP [Tylenol #3*] 1 tab PO Q6HP PRN #30 tab 10/30/19 Atorvastatin Calcium [Lipitor] 40 mg PO BEDTIME 30 Days #30 tab 08/12/21 Folic Acid 1 mg PO DAILY 30 Days #30 tablet 08/12/21 Aspirin [Aspirin EC 81 MG] 81 mg PO DAILY #30 tablet. 08/18/21 Clopidogrel Bisulfate [Plavix*] 75 mg PO DAILY #30 tablet 08/18/21 Gabapentin [Neurontin*] 400 mg PO BEDTIME #30 cap 08/18/21 Cefdinir [Omnicef] 300 mg PO BID #14 capsule 01/04/22 - Past Medical/Surgical History Diabetic: No -: Bipolar disorder -: Hypoglycemia -: ADHD -: Osteoarthritis of the knee -: Nephrolithiasis -: Right renal cyst -: CVA 3 times -: Former tobacco use -: Hepatitis-C -: Depression -: Irregular HR -: Rt knee replacement 08/09/16 -: Lt knee replacement Psychosocial/ Personal History: He is , has 2 children, he does not work. - Family History Mother -: Other (see notes) Notes: Hypoglycemia - Social History Alcohol use: No CD- Drugs: No Caffeine use: Yes Place of Residence: Home Review of Systems dysphasia Physical Examination - Physical Exam General: Alert, In no apparent distress, Cooperative HEENT: Atraumatic, PERRLA, Mucous membr. moist/pink, EOMI, Sclerae nonicteric Neck: Supple, 2+ carotid pulse no bruit, No LAD, Without JVD or thyroid abnormality Respiratory: Clear to auscultation bilaterally, Normal air movement Cardiovascular: Regular rate/rhythm, Normal S1 S2 Gastrointestinal: Normal bowel sounds, No tenderness Musculoskeletal: No tenderness Integumentary: No rashes Neurological: Normal gait, Normal strength at 5/5 x4 extr, Normal tone, Normal affect, Abnormal speech - Studies Laboratory Data (last 24 hrs) 06/28/22 17:52: APTT Cancelled 06/28/22 17:40: PT 11.3, INR 1.03 06/28/22 17:40: WBC 9.00, Hgb 12.0 L, Hct 36.2 L, Plt Count 254 06/28/22 17:40: Sodium 138, Potassium 4.1, BUN 9, Creatinine 1.12, Glucose 99, Magnesium 2.0, Total Bilirubin 0.3, AST 15, ALT 21, Alkaline Phosphatase 107 Assessment and Plan - Plan Assessment: Dysphasia-history of multiple CVA with severe stenosis origin of left vertebral artery Hypertension BPD/ADHD Plan: Dysphasia-history of multiple CVA with severe stenosis origin of left vertebral artery: Neurology consulted, ED provider discussed case with neurology at tertiary center who stated patient not currently a candidate for intervention with his severe stenosis risks likely outweigh benefits continue medical management. N.p.o. until can pass swallow screen, speech therapy consult in place. Continue aspirin, statin, Plavix, folic acid. NIH currently 5. It is unknown patient's baseline level of aphasia/dysphasia. Await results from MRI and neurology consultation. Hypertension: Continue home medications once verified. BPD/ADHD:Continue home medications once verified. DVT PPX: Lovenox Code status: Full Discharge Plan: Home Plan to discharge in: 24 Hours - Advance Directives Does patient have a Living Will: No Does patient have a Durable POA for Healthcare: No - Code Status/Comfort Care Code Status Assessed: Yes (Full code) Critical Care: No Time Spent Managing Pts Care (In Minutes): 70
[2022-06-28] MEDS ORDERED: ONDANSETRON 4 MG/2 ML VIAL IV PRN (23:52)
[2022-06-29] MEDS: NA CHLORIDE 0.9% 1,000 ML IV SCH ×2 (00:28→14:55)
[2022-06-29 01:11] VITALS: BMI 24.5
[2022-06-29 04:07] LABS: Absolute Lymphocytes (CBC) 1.6 K/uL (0.7-4.9); Hematocrit 33.9 % (39.6-49.0); Lymphocytes % 17.8 % (15.3-44.8); MCV 78.6 fL (80-100); MPV 8.1 fL (7.6-11.3); RBC Red Blood Cell Count 4.31 M/uL (4.33-5.43)
[2022-06-29 04:24] LABS: Albumin 3.2 g/dL (3.4-5.0); Bilirubin Total 0.3 mg/dL (0.2-1.0); Potassium 3.3 mmol/L (3.5-5.1); Protein, Total 6.3 g/dL (6.4-8.2)
[2022-06-29] MEDS ORDERED: POTASSIUM 25 MEQ EFFERV TAB PO ONE (06:00)
--- NOTE | 2022-06-29 06:29 | RAD REPORT ---
EXAM DESCRIPTION: US - CP - 06/29/2022 6:02 am CLINICAL HISTORY: eval for stenosis, cva COMPARISON: Neck Angio dated 06/28/2022 TECHNIQUE: Real-time sonographic evaluation of bilateral carotid and vertebral systems was performed . Duran scale and Doppler interrogation were performed with waveform tracing bilaterally. FINDINGS: Normal high resistance waveforms are noted in both external carotid arteries. The common c arotid arteries and internal carotid arteries show normal low resistance waveforms. Mild calcified plaquing changes are present in each distal common carotid artery. Calcified plaquing changes are more prominent in each bulb. Visually no significant narrowing of the vessel lumen seen. Peak systolic and end diastolic velocity values and the ICA/CCA ratios are in the non-hemodynamically significant range. Antegrade flow seen in both vertebral arteries. Velocity values and ratios were recorded and are retained in the patient's imaging records. IMPRESSION: Mild to moderate calcified plaquing changes in the bilateral common carotid arteries in each carotid bulb. No visual evidence for significant stenosis. Velocity values and ratios also indicate no hemodynamica lly significant stenosis.
[2022-06-29] MEDS: FOLIC ACID 1 MG TABLET PO SCH (08:04)
[2022-06-29] MEDS: ASPIRIN EC 81 MG TAB PO SCH (08:04)
[2022-06-29] MEDS: CLOPIDOGREL 75 MG TABLET PO SCH (08:04)
[2022-06-29] MEDS: ENOXAPARIN 40 MG/0.4 ML SQ SCH (09:56)
--- NOTE | 2022-06-29 15:39 | EKG ---
Test Date: 2022-06-28 Test Time: 18:01:30 Deputy Fire Marshal: MB MEASUREMENT RESULTS: Intervals: Rate: 52 [place]: 130 QRSD: 96 QT: 456 QTc: 424 [place]: P: 54 [place]: 130 QRS: 84 T: 83 INTERPRETIVE STATEMENTS: Sinus bradycardia Otherwise normal ECG Compared to ECG 03/07/2022 14:43:08 No significant changes Electronically Signed On 06-29-22 15:38:30 CDT by Darek Duckworth
--- NOTE | 2022-06-29 16:52 | P.PN ---
Subjective Date of Service: 06/29/22 Chief Complaint: Dysphasia Subjective: No new changes (Patient has expressive aphasia but can follow commands.) Physical Examination - Vital Signs Temperature: 96.8 F Blood Pressure: 159/83 Pulse: 55 Respirations: 16 Pulse Ox (%): 96 - Physical Exam General: Alert, In no apparent distress, Cooperative HEENT: Atraumatic, Normocephalic Respiratory: Clear to auscultation bilaterally, Normal air movement Cardiovascular: No edema, Normal pulses, Regular rate/rhythm, Normal S1 S2 Gastrointestinal: Soft and benign, Non-distended Musculoskeletal: No clubbing, No swelling, No contractures Neurological: Normal tone, Abnormal speech - Studies Laboratory Data (last 24 hrs) 06/28/22 17:52: APTT Cancelled 06/28/22 17:40: PT 11.3, INR 1.03, APTT 27.8 06/28/22 17:40: WBC 9.00, Hgb 12.0 L, Hct 36.2 L, Plt Count 254 06/28/22 17:40: Sodium 138, Potassium 4.1, BUN 9, Creatinine 1.12, Glucose 99, Magnesium 2.0, Total Bilirubin 0.3, AST 15, ALT 21, Alkaline Phosphatase 107 Assessment And Plan - Current Problems (Diagnosis) (1) Dysphagia Current Visit: Yes Status: Acute (2) Aphasia Current Visit: Yes Status: Acute (3) Bipolar disorder Onset Date: 05/17/17 Current Visit: No Status: Chronic Qualifiers: Active/Remission status: remission status unspecified Qualified Code(s): F31.9 - Bipolar disorder, unspecified (4) CKD (chronic kidney disease) stage 2, GFR 60-89 ml/min Current Visit: No Status: Chronic (5) Hepatitis C Onset Date: 05/17/17 Current Visit: No Status: Chronic Qualifiers: Viral hepatitis chronicity: unspecified Hepatic coma status: without hepatic coma Qualified Code(s): B19.20 - Unspecified viral hepatitis C without hepatic coma (6) Hypertension Current Visit: No Status: Chronic Qualifiers: Hypertension type: primary hypertension Qualified Code(s): I10 - Essential (primary) hypertension - Plan Assessment Patient is a 62 year old male currently admitted after he was brought in by EMS for acute slurred speech and aphasia. NIH score of [address] of his head without contrast showed no acute intracranial abnormality seen, moderate to large left cerebral infarction is relatively old. 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 As per chart review, Neurology was consulted for this case and initially recommended transferred to higher level of care. However, after ER discussed with [facility], patient was deemed a high risk for intervention. Therefore, he stayed here. Suspected CVA L vertebral artery stenosis Aphasia HTN PLAN: Patient needs an MRI Brain. We cannot obtain a next of kin to consent for procedure. Ex- refuses to be involved, children cannot be reached At some point, we'll need a 2-physician consent to proceed with MRI Patient will also need a cognitive evaluation from [employer] while in-house Continue PT/OT while in-house
[2022-06-29] MEDS: HYDROXYZINE HCL 50 MG PO SCH (20:52)
[2022-06-29] MEDS: RISPERIDONE 1 MG TABLET PO SCH (20:52)
[2022-06-29] MEDS: TRAZODONE 50 MG TABLET PO SCH (20:52)
[2022-06-29] MEDS: DULOXETINE 30 MG CAP PO SCH (20:52)
[2022-06-29] MEDS ORDERED: TRAZODONE HCL 100 MG PO SCH (21:00)
[2022-06-29] MEDS ORDERED: ATORVASTATIN 20 MG TAB PO SCH (21:00)
[2022-06-30] MEDS: NA CHLORIDE 0.9% 1,000 ML IV SCH ×3 (02:32→15:09)
--- NOTE | 2022-06-30 02:40 | CON ---
Reason For Consultation: Consultation called because of dysphagia. History Of Present Illness: Mr. White is a 62-year-old patient with a history of a large left c erebral hemispheric stroke and weakness on the right side with recovery and significant dysarthria an d milder dysphagia. He comes to [facility] with reported worsening dysarthria along with th is ongoing dysphagia and unable to get his words out, and the inability to make labial, lingual or gu ttural sound. At [facility] on June 28 his NIH stroke scale was 5. CT scan did not show any ac jane ischemic or hemorrhagic change; however, the large left hemispheric stroke was noted. CT angiogr am of his head showed no significant abnormalities. CT angiogram of his neck; however, showed there was stenosis at the origin of the left vertebral artery, which was not noted previously. The [facility] team was consulted; this was at the [facility], and they did not recommend any intervention, noting that it may potentially worsen the patient and not give any poten tial benefits or gains. It was recommended that he continue with medical management and they evaluat e for swallowing, and potentially if need be have , if he failed the barium swallow with PE G tube. The patient was evaluated by the speech pathologist and was eventually cleared for swallowing and he did have thin liquids as well earlier today. He still has significant dysarthria of all sounds. Past Medical History: Bipolar disorder, attention deficit hyperactivity disorder, multiple strokes, hepatitis C, depression. Past Surgical History: Left and right knee replacement. Allergies: NO KNOWN DRUG ALLERGIES. Medications: At home, Flexeril, lithium, memantine, mirtazapine, Restoril, venlafaxine, Tylenol No. 3, atorvastatin, folic acid, aspirin, Plavix, gabapentin. Family History: Mother with hypoglycemia. Social History: No alcohol, tobacco, or IV drug abuse. Review of Systems: The patient is not able to clearly articulate any review of systems. He does nod appropriately and c ommunicates with very hypophonic sounds and gestures. Physical Examination: Vital Signs: Blood pressure 159/83, pulse 65, respiratory rate 16, temperature 97.8, oxygen saturati on 96%. Weight 176 pounds, height 5 feet 11 inches, BMI 24.5. General Appearance: Mr. White is resting in his bed. He is in no significant distress. He sandy ears normocephalic and atraumatic. His sclerae are clear and anicteric. Oropharynx is moist. Neck: Supple. Chest: Clear. Heart: Regular. Extremities: Show no significant edema or cyanosis. Neurological: He is alert and oriented to person and situation. He has very poor labial, lingual an d guttural sounds. His cranial nerve examination is remarkable for a right facial droop. Decreased excursions and decreased sensation on the right compared to the left face, otherwise intact. Motor e xamination: Upper and lower extremity on the right proximally and distally compared to th e left 5/5. Sensation decreased to light touch temperature in the right upper extremity compared to the left side. Coordination: He had mild difficulty with his finger movements more on the right zeny n the left. Gait: He is able to ambulate over 250 feet with a front wheeled walker and contact guar d assistance. Laboratory Studies: Complete blood count with differential, essentially is unremarkable except for a mildly low hemoglobin and hematocrit. INR 1.03. Chemistries: Unremarkable. Liver function studie s: Unremarkable. . His drug screen is negative. COVID-19 testing is negative. Electroc ardiogram shows sinus bradycardia, otherwise unremarkable. Carotid artery ultrasound showed no evide nce of hemodynamically significant stenosis. Chest x-ray shows no acute cardiopulmonary processes. Assessment: Mr. White is a 62-year-old patient with significant dysarthria and some dysphagia, right-sided weakness from stroke, and no new findings compared to when he was last seen. He was bob red by speech for swallowing. He has the ability to ambulate. Gait is intact, although he does requ nika ongoing physical therapy to help continue improving his balance, coordination and endurance. Plan: He should be discharged back home with combination of aspirin, Plavix, atorvastatin, folic aci d, and may follow up in [facility] in one month after discharge. MARIMAR/JACOB Voice ID: [id number] Report ID: [id number]
[2022-06-30 03:42] LABS: Absolute Lymphocytes (CBC) 1.8 K/uL (0.7-4.9); Hematocrit 33.2 % (39.6-49.0); Lymphocytes % 21.2 % (15.3-44.8); MCV 78.2 fL (80-100); MPV 8.1 fL (7.6-11.3); RBC Red Blood Cell Count 4.24 M/uL (4.33-5.43)
[2022-06-30 03:56] LABS: Albumin 3.2 g/dL (3.4-5.0); Bilirubin Total 0.3 mg/dL (0.2-1.0); Potassium 3.6 mmol/L (3.5-5.1); Protein, Total 6.3 g/dL (6.4-8.2)
--- NOTE | 2022-06-30 07:56 | ECHO ---
HEIGHT: 5 ft 11 in WEIGHT: 176 lb 0 oz DATE OF STUDY: 06/29/[address]: Quincy Lundberg NP 2-DIMENSIONAL: YES M.MODE: YES DOPPLER: YES COLOR FLOW: YES TDS: YES PORTABLE: YES DEFINITY: NO BUBBLE STUDY: NO DIAGNOSIS: STROKE CARDIAC HISTORY: CATHERIZATION: NO SURGERY: NO PROSTHETIC VALVE: NO PACEMAKER: NO MEASUREMENTS (cm) DIASTOLIC (NORMALS) SYSTOLIC (NORMALS) IVSd 1.1 (0.6-1.2) LA Diam 2.2 (1.9-4.0) LVEF 69% LVIDd 4.4 (3.5-5.7) LVIDs 2.7 (2.0-3.5) %FS 39% LVPWd 1.1 (0.6-1.2) Ao Diam 2.4 (2.0-3.7) 2 DIMENSIONAL ASSESSMENT: RIGHT ATRIUM: NORMAL LEFT ATRIUM: NORMAL RIGHT VENTRICLE: NORMAL LEFT VENTRICLE: NORMAL TRICUSPID VALVE: MITRAL VALVE: PULMONIC VALVE: NORMAL AORTIC VALVE: NORMAL PERICARDIAL EFFUSION: NONE AORTIC ROOT: NORMAL LEFT VENTRICULAR WALL MOTION: UNABLE TO EVALUATE. DOPPLER/COLOR FLOW: SEE BELOW. COMMENTS: NORMAL LEFT VENTRICULAR EJECTION FRACTION 60-65%. MILD MITRAL AND TRICUSPID REGURGITATION. LIMITED WINDOWS. TECHNOLOGIST: Ty ARMENDARIZ
[2022-06-30] MEDS: DULOXETINE 30 MG CAP PO SCH ×2 (08:14→20:36)
[2022-06-30] MEDS: FOLIC ACID 1 MG TABLET PO SCH (08:14)
[2022-06-30] MEDS: CLOPIDOGREL 75 MG TABLET PO SCH (08:14)
[2022-06-30] MEDS: ENOXAPARIN 40 MG/0.4 ML SQ SCH (08:14)
[2022-06-30] MEDS: RISPERIDONE 1 MG TABLET PO SCH ×3 (08:14→20:36)
[2022-06-30] MEDS: ASPIRIN EC 81 MG TAB PO SCH (08:15)
[2022-06-30] MEDS ORDERED: POTASSIUM 25 MEQ EFFERV TAB PO ONE (09:00)
--- NOTE | 2022-06-30 14:21 | P.PN ---
Subjective Date of Service: 06/30/22 Chief Complaint: Dysphasia Subjective: No new changes (Did poorly on his cognitive assessment today. Patient is not safe to be discharged to care for himself at home. We are considering guardianship for him.) Physical Examination - Vital Signs Temperature: 98.4 F Blood Pressure: 123/73 Pulse: 68 Respirations: 18 Pulse Ox (%): 98 - Physical Exam General: Alert, In no apparent distress, Cooperative HEENT: Atraumatic, Normocephalic Respiratory: Clear to auscultation bilaterally, Normal air movement Cardiovascular: Regular rate/rhythm, Normal S1 S2 Musculoskeletal: No clubbing, No swelling, No contractures Neurological: Other (Left-sided hemiparesis), Abnormal speech, Abnormal strength Assessment And Plan - Current Problems (Diagnosis) (1) Dysphagia Current Visit: Yes Status: Acute (2) Aphasia Current Visit: Yes Status: Acute (3) Bipolar disorder Onset Date: 05/17/17 Current Visit: No Status: Chronic Qualifiers: Active/Remission status: remission status unspecified Qualified Code(s): F31.9 - Bipolar disorder, unspecified (4) CKD (chronic kidney disease) stage 2, GFR 60-89 ml/min Current Visit: No Status: Chronic (5) Hepatitis C Onset Date: 05/17/17 Current Visit: No Status: Chronic Qualifiers: Viral hepatitis chronicity: unspecified Hepatic coma status: without hepatic coma Qualified Code(s): B19.20 - Unspecified viral hepatitis C without hepatic coma (6) Hypertension Current Visit: No Status: Chronic Qualifiers: Hypertension type: primary hypertension Qualified Code(s): I10 - Essential (primary) hypertension - Plan Assessment Patient is a 62 year old male currently admitted after he was brought in by EMS for acute slurred speech and aphasia. NIH score of [address] of his head without contrast showed no acute intracranial abnormality seen, moderate to large left cerebral infarction is relatively old. 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 As per chart review, Neurology was consulted for this case and initially recommended transferred to higher level of care. However, after ER discussed with [facility], patient was deemed a high risk for intervention. Therefore, he stayed here. Suspected CVA L vertebral artery stenosis Aphasia HTN PLAN: Attempt to obtain consent from family was unsuccessful. Patient was reevaluated by Dr. Romero and was deemed appropriate for discharge from a neuro standpoint He is currently on dual antiplatelet therapy, high intensity statin and folic acid Unfortunately, due to his poor performance during cognitive assessment today, he is not a safe discharge home Patient would benefit from guardianship Case discussed during MDR Of note, we were able to reach the patient's ex- who did not want to be involved in patient care. Therefore, she did not provide any consent. We also tried to see if there could be additional next of kin's but she did not want to give out that information.
[2022-06-30] MEDS: ATORVASTATIN 80 MG TAB PO SCH (20:36)
[2022-06-30] MEDS: TRAZODONE 50 MG TABLET PO SCH (20:36)
[2022-06-30] MEDS: HYDROXYZINE HCL 50 MG PO SCH (21:00)
[2022-07-01 03:42] LABS: Absolute Lymphocytes (CBC) 1.6 K/uL (0.7-4.9); Hematocrit 32.9 % (39.6-49.0); Lymphocytes % 18.1 % (15.3-44.8); MCV 78.4 fL (80-100); MPV 8.1 fL (7.6-11.3)
[2022-07-01 03:55] LABS: Albumin 3.1 g/dL (3.4-5.0); Bilirubin Total 0.3 mg/dL (0.2-1.0); Potassium 3.7 mmol/L (3.5-5.1); Protein, Total 6.2 g/dL (6.4-8.2)
[2022-07-01] MEDS ORDERED: POTASSIUM CL SA 10 MEQ TAB PO ONE (04:59)
[2022-07-01] MEDS: NA CHLORIDE 0.9% 1,000 ML IV SCH ×2 (06:03→16:34)
[2022-07-01] MEDS ORDERED: CLOPIDOGREL 75 MG TABLET PO SCH (09:00)
[2022-07-01] MEDS: FOLIC ACID 1 MG TABLET PO SCH (09:24)
[2022-07-01] MEDS: AMLODIPINE 2.5 MG TAB PO SCH (09:24)
[2022-07-01] MEDS: ASPIRIN EC 81 MG TAB PO SCH (09:25)
[2022-07-01] MEDS: ENOXAPARIN 40 MG/0.4 ML SQ SCH (09:25)
[2022-07-01] MEDS: RISPERIDONE 1 MG TABLET PO SCH ×3 (09:25→21:04)
[2022-07-01] MEDS: CLOPIDOGREL 75 MG TABLET PO SCH (09:25)
[2022-07-01] MEDS: DULOXETINE 30 MG CAP PO SCH ×2 (09:25→21:04)
[2022-07-01 11:14] VITALS: O2SAT 98
--- NOTE | 2022-07-01 15:07 | P.PN ---
Subjective Date of Service: 07/01/22 Chief Complaint: Dysphasia Subjective: No new changes (No acute events overnight.) Physical Examination - Vital Signs Temperature: 97.0 F Blood Pressure: 160/103 Pulse: 84 Respirations: 16 Pulse Ox (%): 99 - Physical Exam General: In no apparent distress, Cooperative HEENT: Atraumatic, Normocephalic Respiratory: Clear to auscultation bilaterally, Normal air movement Cardiovascular: No edema, Normal pulses, Regular rate/rhythm, Normal S1 S2 Gastrointestinal: Soft and benign, Non-distended Neurological: Abnormal speech Assessment And Plan - Current Problems (Diagnosis) (1) Dysphagia Current Visit: Yes Status: Acute (2) Aphasia Current Visit: Yes Status: Acute (3) Bipolar disorder Onset Date: 05/17/17 Current Visit: No Status: Chronic Qualifiers: Active/Remission status: remission status unspecified Qualified Code(s): F31.9 - Bipolar disorder, unspecified (4) CKD (chronic kidney disease) stage 2, GFR 60-89 ml/min Current Visit: No Status: Chronic (5) Hepatitis C Onset Date: 05/17/17 Current Visit: No Status: Chronic Qualifiers: Viral hepatitis chronicity: unspecified Hepatic coma status: without hepatic coma Qualified Code(s): B19.20 - Unspecified viral hepatitis C without hepatic coma (6) Hypertension Current Visit: No Status: Chronic Qualifiers: Hypertension type: primary hypertension Qualified Code(s): I10 - Essential (primary) hypertension - Plan Assessment Patient is a 62 year old male currently admitted after he was brought in by EMS for acute slurred speech and aphasia. NIH score of [address] of his head without contrast showed no acute intracranial abnormality seen, moderate to large left cerebral infarction is relatively old. 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 As per chart review, Neurology was consulted for this case and initially recommended transferred to higher level of care. However, after ER discussed with [facility], patient was deemed a high risk for intervention. Therefore, he stayed here. There has been any changes in mental status for the past 3 days. Suspected CVA L vertebral artery stenosis Aphasia HTN PLAN: Patient has been cleared by Neurology Continue DAPT, high intensity statin and folic acid Unfortunately, due to his poor performance during cognitive assessment today, he is not a safe discharge home He is pending guardianship Of note, we were able to reach the patient's ex- who did not want to be involved in patient care. Therefore, she did not provide any consent. We also tried to see if there could be additional next of kin's but she did not want to give out that information.
[2022-07-01] MEDS: BENZONATATE 100 MG CAP PO PRN (17:11)
[2022-07-01] MEDS: HYDROXYZINE HCL 50 MG PO SCH (21:00)
[2022-07-01] MEDS: TRAZODONE 50 MG TABLET PO SCH (21:04)
[2022-07-01] MEDS: ATORVASTATIN 80 MG TAB PO SCH (21:04)
[2022-07-01] MEDS: ENSURE ENLIVE 237 ML CAN PO SCH (21:06)
[2022-07-02] MEDS: ENSURE ENLIVE 237 ML CAN PO SCH ×2 (09:00→22:32)
--- NOTE | 2022-07-02 09:25 | P.PN ---
Subjective Date of Service: 07/02/22 Chief Complaint: Dysphasia, history of stroke Subjective: Improving (No new complaints awaiting guardianship and discharge and is eating drinking ambulating weakness on the left side) Review of Systems is unable to be obtained Physical Examination - Vital Signs Temperature: 97.4 F Blood Pressure: 124/73 Pulse: 63 Respirations: 16 Pulse Ox (%): 97 - Physical Exam General: Alert, Cooperative Neck: Supple Respiratory: Clear to auscultation bilaterally, Diminished Assessment And Plan - Current Problems (Diagnosis) (1) History of stroke Current Visit: Yes Status: Acute Plan: Patient is 62 years of age admitted with slurred speech aphasia is an old infarction severe stenosis of the left vertebral artery high risk for any intervention also has aphasia hypertension seen by neurology poor performance during cognitive assessment Labs reviewed unremarkable kidney function is now normal vital signs stable labs reviewed mildly anemic DC IV fluids patient has severe stenosis of the left vertebral artery stable for discharge history of bipolar disorders meds reviewed
[2022-07-02] MEDS: RISPERIDONE 1 MG TABLET PO SCH ×3 (10:40→22:32)
[2022-07-02] MEDS: AMLODIPINE 2.5 MG TAB PO SCH (10:40)
[2022-07-02] MEDS: CLOPIDOGREL 75 MG TABLET PO SCH (10:40)
[2022-07-02] MEDS: DULOXETINE 30 MG CAP PO SCH ×2 (10:40→22:32)
[2022-07-02] MEDS: BENZONATATE 100 MG CAP PO PRN ×2 (10:40→22:48)
[2022-07-02] MEDS: ASPIRIN EC 81 MG TAB PO SCH (10:41)
[2022-07-02] MEDS: ENOXAPARIN 40 MG/0.4 ML SQ SCH (10:41)
[2022-07-02] MEDS: FOLIC ACID 1 MG TABLET PO SCH (10:41)
[2022-07-02] MEDS: HYDROXYZINE HCL 50 MG PO SCH (21:00)
[2022-07-02] MEDS: TRAZODONE 50 MG TABLET PO SCH (22:31)
[2022-07-02] MEDS: ATORVASTATIN 80 MG TAB PO SCH (22:32)
--- NOTE | 2022-07-03 08:53 | P.PN ---
Subjective Date of Service: 07/03/22 Chief Complaint: Dysphasia, history of stroke Subjective: Improving (Patient is doing much better he is more alert responsive cooperative answering questions appropriately at times difficult to understand) Review of Systems is unable to be obtained Physical Examination - Vital Signs Temperature: 97.4 F Blood Pressure: 125/75 Pulse: 65 Respirations: 16 Pulse Ox (%): 96 - Physical Exam General: Alert, Cooperative Respiratory: Clear to auscultation bilaterally Cardiovascular: No edema, Regular rate/rhythm, Normal S1 S2 Assessment And Plan - Current Problems (Diagnosis) (1) History of stroke Current Visit: Yes Status: Acute Plan: Patient is doing better today he is more alert responsive cooperative answering questions although his speech is difficult to understand likely informs me that he has had a right knee replacement chemistries and labs reviewed vital signs stable reduce dose of trazodone to 50 mg at night DC hydroxyzine
[2022-07-03] MEDS: FOLIC ACID 1 MG TABLET PO SCH (09:11)
[2022-07-03] MEDS: CLOPIDOGREL 75 MG TABLET PO SCH (09:12)
[2022-07-03] MEDS: ASPIRIN EC 81 MG TAB PO SCH (09:12)
[2022-07-03] MEDS: RISPERIDONE 1 MG TABLET PO SCH ×2 (09:12→14:20)
[2022-07-03] MEDS: ENOXAPARIN 40 MG/0.4 ML SQ SCH (09:13)
[2022-07-03] MEDS: DULOXETINE 30 MG CAP PO SCH (09:13)
[2022-07-03] MEDS: ENSURE ENLIVE 237 ML CAN PO SCH (09:15)
--- NOTE | 2022-07-03 15:46 | P.DS ---
Admission Date: 06/28/22 Discharge Date: 07/03/22 Disposition: ROUTINE DISCHARGE Discharge Condition: FAIR Reason for Admission: Dysphasia, history of stroke - Problems (1) History of stroke Current Visit: Yes Status: Acute Brief History of Present Illness: Patient 62 years of age with a history of bipolar disease and all stroke admitted with altered mental status Hospital Course: He was admitted patient had vertebral arteries process, high-risk for transfer which was denied by the educated facility extensive examination that only showed primary stroke vertebral artery stenosis as mentioned above. time of discharge patient was alert cooperative he does Have expressive dysphasia. At the time of discharge patient was alert and responsive cooperative wasn't Interviewedby a professor of social work who told me he could clearly follow all instructions and commands according to a friend he was at his baseline and he's had this stroke. I Reduced the trazodone 50 mg a day Stopped hydroxyzine. Apart from mild anemia labs and remarkable is to follow up with his primary care physician and Dr. Romero. Vital Signs/Physical Exam: Temp Pulse Resp BP Pulse Ox 97.7 F 60 14 130/66 96 07/03/22 12:00 07/03/22 12:00 07/03/22 12:00 07/03/22 12:00 07/03/22 12:00 Laboratory Data at Discharge: WBC 8.60 K/uL (4.3-10.9) 07/01/22 03:00 Hgb 11.2 g/dL (13.6-17.9) L 07/01/22 03:00 Hct 32.9 % (39.6-49.0) L 07/01/22 03:00 Plt Count 247 K/uL (152-406) 07/01/22 03:00 PT 11.3 SECONDS (9.5-12.5) 06/28/22 17:40 INR 1.03 06/28/22 17:40 APTT Cancelled 06/28/22 17:52 Sodium 142 mmol/L (136-145) 07/01/22 03:00 Potassium 3.9 mmol/L (3.5-5.1) 07/02/22 06:46 BUN 7 mg/dL (7-18) 07/01/22 03:00 Creatinine 0.93 mg/dL (0.55-1.3) 07/01/22 03:00 Glucose 95 mg/dL (74-106) 07/01/22 03:00 Magnesium 2.0 mg/dL (1.8-2.4) 06/28/22 17:40 Total Bilirubin 0.3 mg/dL (0.2-1.0) 07/01/22 03:00 AST 10 U/L (15-37) L 07/01/22 03:00 ALT 16 U/L (12-78) 07/01/22 03:00 Alkaline Phosphatase 99 U/L (45-117) 07/01/22 03:00 Triglycerides 96 mg/dL (<150) 06/29/22 03:38 Cholesterol 99 mg/dL (<200) 06/29/22 03:38 HDL Cholesterol 44 mg/dL (40-60) 06/29/22 03:38 Cholesterol/HDL Ratio 2.25 06/29/22 03:38 Home Medications: Clopidogrel Bisulfate [Plavix*] 75 mg PO DAILY #30 tablet 08/18/21 Amlodipine Besylate [Norvasc] 2.5 mg PO DAILY 06/29/22 Atorvastatin Calcium [Lipitor] 80 mg PO BEDTIME 06/29/22 Duloxetine HCl 30 mg PO BID 06/29/22 Risperidone [Risperdal] 1 mg PO TID 06/29/22 Trazodone HCl [Desyrel] 50 mg PO BEDTIME #30 07/03/22 New Medications: Trazodone HCl [Desyrel] 50 mg PO BEDTIME #30 Physician Discharge Instructions: Stop hydroxyzine, Take Trazadone 50 mg daily Followup: NONE,NONE [Primary Care Provider] -
[2022-07-03 16:18] VITALS: BP 143/87; TEMP 97.5
[2022-07-03] MEDS ORDERED: TRAZODONE 50 MG TABLET PO SCH (21:00)
== END 2022-07-03 17:59 | disposition home or self-care (01) ==
LOC: ER 16:33 → ERHOLD 23:07 → 4TH 23:25
PROVIDERS: ADMIT Internal Medicine; ATTEND Internal Medicine Sleep Medicine
DX: I69.921 Dysphasia following unspecified cerebrovascular disease (principal); R29.705 NIHSS score 5; I65.02 Occlusion and stenosis of left vertebral artery; I69.922 Dysarthria following unspecified cerebrovascular disease; I69.928 Other speech and language deficits following unspecified cerebrovascular disease; I13.10 Hypertensive heart and chronic kidney disease without heart failure, with stage 1 through stage 4 chronic kidney disease, or unspecified chronic kidney disease; I25.2 Old myocardial infarction; R41.82 Altered mental status, unspecified; I10 Essential (primary) hypertension; I11.9 Hypertensive heart disease without heart failure; F90.9 Attention-deficit hyperactivity disorder, unspecified type; R13.0 Aphagia; F31.9 Bipolar disorder, unspecified; N18.2 Chronic kidney disease, stage 2 (mild); D64.9 Anemia, unspecified; B19.20 Unspecified viral hepatitis C without hepatic coma; G81.94 Hemiplegia, unspecified affecting left nondominant side; R00.1 Bradycardia, unspecified; Z20.822 Contact with and (suspected) exposure to COVID-19; F17.210 Nicotine dependence, cigarettes, uncomplicated; F10.20 Alcohol dependence, uncomplicated
CPT/HCPCS: 36415; 70450; 70496; 70498; 71045; 80048; 80053; 80061; 80076; 80307; 80320; 80329; 81003; 83735; 83880; 84132; 84484; 85025; 85610; 85652; 85730; 86140; 87811; 92507; 92523; 92610; 93005; 93306; 93880; 96374; 96375; 97116; 97530; 99284; G0378; J1650; J1953; J7030; J7050; Q9967

== ENCOUNTER 2022-10-16 15:31 | Emergency (ER) | payer OTHER ==
--- OUTSIDE RECORDS SUMMARY | 2022-10-16 15:43 | XMS REPORT | Continuity of Care Document ---
:1960 Author Organization [facility] t Address [address] [place] [address] Support Name Relationship Address Phone DEMETRIUS HENDERSON SP [id number] [place] [address] BEATRIZVALARIEDEMETRIUS SP [address] [phone] [place] [address] ALBERTO HENDERSON Spouse [id number] Unavailable [address] [place] [address] Family, Family Family/Other [address] Unavailable [place] [id number] UN Unavailable Unavailable Unavailable MICHELLE HENDERSON P [address] [facility] [phone] [place] [address] BEATRIZVALARIEALBERTO Spouse [address] [place] [address] ALBERTO HENDERSON Unavailable [address] [place] [address] PHYSICIAN, NO Primary Care Physician Unavailable Unavailab mohamud JAMES MD [facility] Emergency Provider [address] [place] [address] DEMETRIUS HENDERSON Unavailable [address] [place] [address] DEMETRIUS HENDERSON Unavailable [address] [place] [address] MD ROCHELLE CORDOVA JR Admitting Provider [address] [place] [address] NO EMERGENCY, CONTACT Unavailable [address] [address] ALBERTO HENDERSON X [address] [place] [address] MARY Yang Unavailable MARY MONTELONGO Unavailable Care Team Providers Name Role Phone Pcp-None Primary Care Physician Unavailable MARIA VICTORIA FLOYD Attending Clinician Unavailable [id number] Attending Clinician Unavailable Lucy Gomes Attending Clinician Unavailable Mio Gilbert Attending Clinician Unavailable SOLE SANCHEZ Attending Clinician Unavailable Sole Sanchez MD Attending Clinician Hemalatha Murray RN Attending Clinician Unavailable Doctor Unassigned, [place] Attending Clinician Unavailable Kayleen Rodriguez RN Attending Clinician Unavailable JAMES MENDES Attending Clinician Unavailable Kannan [facility], Lupis So Attending Clinician SUMEET CAMARENA Attending Clinician Unavailable ONELIA BERMAN Attending Clinician Unavailable JUAN JOSÉ OROSCO Attending Clinician Unavailable Erickson Abraham Attending Clinician Unavailable RANDEE HARRY Attending Clinician Unavailable ZULMA VAZQUEZ Attending Clinician Unavailable Nurse, [facility] Attending Clinician Unavailable Zulma Landa Attending Clinician Hillary [facility], Ayse Gonzalez Attending Clinician [email or web address] Attending Clinician Unavailable Norbert Rodriguez MD Attending Clinician Otoniel Crain MD Attending Clinician Kira Goodwin MD Attending Clinician KIRA GOODWIN Attending Clinician Unavailable Khoa Castro DO Attending Clinician [phone] Leonardo Abarca MD Attending Clinician Yohan Smith CRNA Attending Clinician [phone] Alfonso Garcia Attending Clinician Lynette Arteaga MD Attending Clinician [phone], [facility] Attending Clinician Unavailable MARCE ARMENDARIZ Attending Clinician Unavailable Marce Armendariz DO Attending Clinician Brianda Chen Attending Clinician [phone] GENNY ZAPATA.H. Attending Clinician Unavailable Latasha Santillan MD Attending Clinician Delores PRINCE, Lucia So Attending Clinician Unavailable Shaun Peraza MD Attending Clinician Gwen Howard MD Attending Clinician LATASHA SANTILLAN Attending Clinician Unavailable TALIA REYNOSO Attending Clinician Unavailable Anealma delia CARD RUNNER, Talia Attending Clinician Rancho Bravo MD Attending Clinician Digna Steen Attending Clinician Rosa, Vincent - John Attending Clinician Unavailable RANCHO BRAVO Attending Clinician Unavailable RANCHO BRAVO Attending Clinician Unavailable DIGNA BLOUNT Attending Clinician Unavailable RAFA FERREIRA Attending Clinician Unavailable Rafa Ferreira DO Attending Clinician Suraj CALDWELL, Vasu Attending Clinician VASU GARCES Attending Clinician Unavailable Zuniga_F Attending Clinician Unavailable A_Byrd Attending Clinician Unavailable Ximena Valdes Attending Clinician Unavailable ALFONSO GABRIEL Attending Clinician Unavailable Joleen PRINCE, Delroy Rubin Attending Clinician Unavailable Melissa BRADLEY, Cristal Yang Attending Clinician Ibikunle CARD RUNNER, Folusho F Attending Clinician Gaurav CALDWELL, Adrian Attending Clinician Sole Sims MD Attending Clinician Abbey Bautista MD Attending Clinician Rich Elias MD Attending Clinician Adrianna Kelley MD Attending Clinician Cristopher Doty Attending Clinician Unavailable [id number] Admitting Clinician Unavailable Mio Gilbert Admitting Clinician Unavailable SOLE SANCHEZ Admitting Clinician Unavailable Alexa Flores Admitting Clinician Unavailable Admitting Clinician Unavailable OTONIEL CRAIN Admitting Clinician Unavailable MARCE ARMENDARIZ Admitting Clinician Unavailable Lee CALDWELL, Gwen Admitting Clinician GWEN HOWARD Admitting Clinician Unavailable RAFA FERREIRA Admitting Clinician Unavailable RANCHO BRAVO Admitting Clinician Unavailable Elba Admitting Clinician Unavailable Sergeimary ann Admitting Clinician Unavailable Gaurav CALDWELL, Adrian Admitting Clinician Physician, No Primary or Family Admitting Clinician Unavaila ble Payers Payer Name Policy Type Policy Number Effective Date Expiration Date S jorge [place] MEDICA[place] [id number] 2022 00:00:00 [facility]LY [facility] [id number] 2018 STARPLUS OON EXCEPT 00:00:00 [facility] MEDIC[facility] PART A \\T\\ [id number] 2009 B 00:00:00 MEDICAID OF [place] [id number] 2020 00:00:00 [facility] HMO [id number] 2020 00:00:00 [facility] PLUS [id number] 2016 00:00:00 [facility] [id number] 2021 COMP HMO D SNP 00:00:00 [employer] - [id number] 2021 [facility] 00:00:00 (MEDICARE REPLACEMENT/ADVANTA GE - HMO) [facility] - [id number] 2021 MEDICARE SOLUTIONS 00:00:00 - MEDICARE COMPLETE (MEDICARE REPLACEMENT HMO) [place] B[place]: [id number] [facility] [id number] 2020 COMMUNITY PLAN - 00:00:00 [place] STAR PLUS (MEDICAID HMO) Problems Condition Condition Condition Status Onset Resolution Last Treating Co mments Source Name Details Category Date Date Treatment Clinician Date Dehydratio Dehydratio Disease Active U nivers n n 8-30 ity of 00:00: [place] 00 Medical Branch Anxiety, Anxiety, Disease Active Unive rs generalize generalize 8-30 it y of d d 00:00: 00 Medical Branch Bipolar Bipolar Disease Active Univers disorder disorder 8-30 ity of without without 00:00: [place] psychotic psychotic 00 Medi diogenes features features Branch HYPOTENSIV HYPOTENSI Diagnosis Active 2022-07-08 Memoria E SHOCK VE SHOCK 06-10 09:41:00 l Active 00:00: Dominic 06/10/2022 [facility] [place] Diagnosis Active 2022-07-09 Memoria BILLING BILLING 06-10 07:55:00 l Active 00:00: Dominic 06/10/2022 [facility] Migraine Migraine Disease Active Unive rs equivalent equivalent 8-12 it y of syndrome syndrome 00:00: [place] [facility] Vision Vision Disease Active Univers changes changes 8-12 ity of 00:00: [place] [facility] Primary Primary Disease Active Univers insomnia insomnia 8-12 ity of 00:00: [place] 00 Medical Branch Duodenal Duodenal Disease Active Unive rs ulcer ulcer 7-07 ity of 00:00: [place] 00 Medical Branch Chronic Chronic Disease Active Univers left left 7-07 ity of shoulder shoulder 00:00: [place] pain pain 00 Medical Branch Chronic Chronic Disease Active Univers pain pain 7-07 ity of syndrome syndrome 00:00: [place] 00 Medical Branch GI bleed GI bleed Disease Active [facility] 00:[facility]: [address] Scabies Scabies Disease Active Univers exposure exposure 6-09 ity of 00:00: [place] 00 Medical Branch Stress Stress Disease Active Univers reaction reaction 5-18 ity of with with 00:00: [place] psychomoto psychomoto 00 Ut dical r r Branch agitation agitation Anger Anger Disease Active Univers reaction reaction 5-18 ity of 00:00: [place] 00 Medical Branch Aphasia as Aphasia as [...] ity of injury) injury) 00:00: [place] 00 [facility] Disease Active Unive rs discharge discharge 3-23 ity of follow-up [place]up [place] Hypotensio Hypotensio Disease Active U nivers n n 3-23 ity of 00:00: [place] 00 [facility] Branch Orthostati Orthostati Disease Active U nivers c syncope c syncope 3-23 ity of 00:00: [place] 00 [facility] Branch Dyslipidem Dyslipidem Disease Active U mindiers ia ia 2-23 ity of 00:00: [place] 00 [facility] Branch Speech and Speech and Disease Active U nivers language language 2-23 ity of deficit as [place] late late [place] Medical effect of effect of Bran ch stroke stroke Medicare Medicare Disease Active Unive rs annual annual 2-08 ity of wellness wellness 00:00: [place] visit, visit, 00 Medical initial initial Branch [...] involving 00:[place] 00 [facility] middle middle Branch cerebral cerebral artery artery Nicotine Nicotine Disease Active Unive rs dependence dependence 2-04 it y of with with 00:00: [place] current current 00 Medical use use Branch Pulmonary Pulmonary Disease Active Uni vers [...] different from the original. 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 - [facility]I involving involving St multiple [facility] joints joints Medical Center Smoker Smoker Problem Active Common [facility] Essential Essential Problem Active Com mon hypertensi hypertensi Sp kyle on on - [facility] Other Other Problem Active Common chronic chronic Spirit pain pain - [facility] Irritabili Irritabili Problem Active C ommon ty and ty and Spirit anger anger - [facility] Elevated Elevated Problem Active Commo n blood blood Spirit pressure pressure - [facility] reading reading St without without [facility] diagnosis diagnosis Medi diogenes of of Center hypertensi hypertensi on on Encounter Encounter Problem Active Com mon for for Spirit tobacco tobacco - [facility]I use use [facility] cessation cessation [facility] counseling counseling [facility] Mild Mild Problem Active Common memory memory Spirit disturbanc disturbanc - CHI e e [facility] Paresthesi Paresthesi Problem Active C ommon a of skin a of skin Spir it - [facility] Otalgia of Otalgia of Problem Active C ommon left ear left ear Spirit - [facility] Dementia Dementia Problem Active Commo n in other in other Spirit diseases diseases - CHI classified classified St elsewhere elsewhere [place] without without Medical behavioral behavioral Ce nter disturbanc disturbanc e e Impacted Impacted Problem Active Commo n cerumen of cerumen of Sp kyle left ear left ear - [facility] Alzheimer' Alzheimer' Problem Active C ommon 's 's Spirit disease, disease, - [facility]I unspecifie unspecifie [facility] 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Commo n dysfunctio dysfunctio Sp kyle n, n, - [facility]I unspecifie unspecifie St erectile d erectile [place] dysfunctio dysfunctio Me dicco n type n type Center Hypoglycem Hypoglycem Problem Active C ommon ia ia Spirit - [facility] Simple Simple Problem Active Common chronic chronic Spirit bronchitis bronchitis - [facility] Nicotine Nicotine Problem Active Commo n dependence dependence Sp kyle , , - CHI cigarettes cigarettes St , , [facility] uncomplica uncomplica Me dical mann [facility] Primary Primary Problem Active 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 [facility] Seasonal Seasonal Diagnosis Active Com mon allergic allergic Spirit rhinitis, rhinitis, - CH I unspecifie unspecifie St d trigger d [facility] Allergies, Adverse Reactions, Alerts Allergy Allergy Status Severity Reaction(s) Onset Inactive Treating Comm ents Source Name Type Date Date Clinician No Known DA Active U [facility] Drug 8-04 Allergie 00:00: s 00 No Known DA Active U [facility] Allergie 1-14 Clear s 00:00: Pat[place] 00 [facility] No Known DA Active U [facility] Allergie 1-14 Clear s 00:00: [place] 00 [facility] No Known DA Active U [facility] Allergie 4-10 [place] 00:00: Health 00 are [facility] No Known DA Active U [facility] Allergie 4-10 [place] 00:00: Health 00 are [facility] NO KNOWN Drug Active Univers ALLERGIE Class ity of S [facility] NO KNOWN Allergy Active [facility] Social History Social Habit Start Date Stop Date Quantity Comments Source History of tobacco Cigar Smoker Univ ersity of use [facility] History SDOH [facility] Alcohol Std Drinks Medica l Center History SDOH [facility] Alcohol Binge Medical Eric ter History SDOH [facility] Alcohol Comment Medical C enter Exposure to 2022-04-19 2022-04-29 Not sure University of SARS-CoV-2 (event) 00:00:00 12:31:00 [facility] Alcohol intake 2022-04-10 2022-04-[address] [facility] 00:[facility] 00:00:00 non-drinker Medical Cente r (finding) History SDOH 2022-04-09 2022-04-[address] [facility] Alcohol Frequency 00:00:00 00:00:00 [facility] Tobacco use and 2022-04-09 2022-04-[address] [place] exposure 00:00:00 00:00:00 [facility] Cigarettes smoked 2021-07-23 2021-07-23 Univers ity of current (pack per 00:00:00 00:00:00 ) - Reported Branch Cigarette 2021-07-23 2021-07-23 University of pack-years 00:00:00 00:00:00 [facility] Education 2021-03-21 2021-03-21 14 University of 00:00:00 00:00:00 [facility] Sex Assigned At [address] [facility] 00:00:00 00:00:00 Medical Center Smoking Status Start Date Stop Date Source Unknown if ever smoked [facility] Never sm[facility] Occasional tobacco smoker 2021-07-23 00:00:00 [facility] Medical Branch Medications Ordered Filled Start Stop Current Ordering Indication Dosage Frequency Signature Comments Components Source Medication Medication Date Date Medication? Clinician (SIG) Name Name GABAPENTIN 2-0 Yes [id number] TAKE 1 Univers 400 mg 9-07 CAPSULE BY ity of capsule 00:00: MOUTH 00 THREE Medical TIMES Branch DAILY GABAPENTIN 2022-0 Yes [id number] TAKE 1 Univers 400 mg 9-07 CAPSULE BY ity of capsule 00:00: MOUTH [place] 00 THREE Medical TIMES Branch DAILY GABAPENTIN 2022-0 Yes [id number] TAKE 1 Univers 400 mg 9-07 CAPSULE BY ity of capsule 00:00: MOUTH [place] THREE Medical TIMES Branch DAILY GABAPENTIN 2022-0 Yes [id number] TAKE 1 Univers 400 mg 9-07 CAPSULE BY ity of capsule 00:00: MOUTH [place] THREE Medical TIMES Branch DAILY GABAPENTIN 2022-0 Yes [id number] TAKE 1 Univers 400 mg 9-07 CAPSULE BY ity of capsule 00:00: MOUTH 00 THREE Medical TIMES Branch DAILY GABAPENTIN 2022-0 Yes [id number] TAKE 1 Univers 400 mg 9-07 CAPSULE BY ity of capsule 00:00: MOUTH [place] 00 THREE Medical TIMES Branch DAILY GABAPENTIN 2022-0 Yes [id number] TAKE 1 Univers 400 mg 9-07 CAPSULE BY ity of capsule 00:00: MOUTH 00 THREE Medical TIMES Branch DAILY GABAPENTIN 2022-0 Yes [id number] TAKE 1 Univers 400 mg 9-07 CAPSULE BY ity of capsule 00:00: MOUTH [place] 00 THREE Medical TIMES Branch DAILY GABAPENTIN 2022-0 Yes [id number] TAKE 1 Univers 400 mg 9-07 CAPSULE BY ity of capsule 00:00: MOUTH THREE Medical TIMES Branch DAILY GABAPENTIN 2022-0 Yes [id number] TAKE 1 Univers 400 mg 9-07 CAPSULE BY ity of capsule 00:00: MOUTH [place] 00 THREE Medical TIMES Branch DAILY GABAPENTIN 2022-0 Yes [id number] TAKE 1 Univers 400 mg 9-07 CAPSULE BY ity of capsule 00:00: MOUTH [place] 00 THREE Medical TIMES Branch DAILY GABAPENTIN 2022-0 Yes [id number] TAKE 1 Univers 400 mg 9-07 CAPSULE BY ity of capsule 00:00: MOUTH [place] THREE Medical TIMES Branch DAILY GABAPENTIN 2022-0 Yes [id number] TAKE 1 Univers 400 mg 9-07 CAPSULE BY ity of capsule 00:00: MOUTH [place] 00 THREE Medical TIMES Branch DAILY GABAPENTIN 2022-0 Yes [id number] TAKE 1 Univers 400 mg 9-07 CAPSULE BY ity of capsule 00:00: MOUTH [place] THREE Medical TIMES Branch DAILY amLODIPine 2022-0 Yes [id number] 2.5mg Take 0.5 Univers 5 mg tablet 8-30 tablets by it y of 00:00: mouth in [place] the Medical morning. Branch amLODIPine 2022-0 Yes [id number] 2.5mg Take 0.5 Univers 5 mg tablet 8-30 tablets by it y of 00:00: mouth in [place] the Medical morning. Branch amLODIPine 2022-0 Yes [id number] 2.5mg Take 0.5 Univers 5 mg tablet 8-30 tablets by it y of 00:00: mouth in [place] the Medical morning. Branch amLODIPine 2022-0 Yes [id number] 2.5mg Take 0.5 Univers 5 mg tablet 8-30 tablets by it y of 00:00: mouth in [place] the Medical morning. Branch amLODIPine 2022-0 Yes [id number] 2.5mg Take 0.5 Univers 5 mg tablet 8-30 tablets by it y of 00:00: mouth in [place] the Medical morning. Branch amLODIPine 2022-0 Yes [id number] 2.5mg Take 0.5 Univers 5 mg tablet 8-30 tablets by it y of 00:00: mouth in [place] the Medical morning. Branch amLODIPine 2022-0 Yes [id number] 2.5mg Take 0.5 Univers 5 mg tablet 8-30 tablets by it y of 00:00: mouth in [place] the Medical morning. Branch amLODIPine 2022-0 Yes [id number] 2.5mg Take 0.5 Univers 5 mg tablet 8-30 tablets by it y of 00:00: mouth in [place] the Medical morning. Branch amLODIPine 2022-0 Yes [id number] 2.5mg Take 0.5 Univers 5 mg tablet 8-30 tablets by it y of 00:00: mouth in [place] the Medical morning. Branch amLODIPine 2022-0 Yes [id number] 2.5mg Take 0.5 Univers 5 mg tablet 8-30 tablets by it y of 00:00: mouth in [place] 00 the Medical morning. Branch amLODIPine 2-0 Yes [id number] 2.5mg Take 0.5 Univers 5 mg tablet 8-30 tablets by it y of 00:00: mouth in [place] the Medical morning. Branch amLODIPine 2022-0 Yes [id number] 2.5mg Take 0.5 Univers 5 mg tablet 8-30 tablets by it y of 00:00: mouth in [place] 00 the Medical morning. Branch amLODIPine 2022-0 Yes [id number] 2.5mg Take 0.5 Univers 5 mg tablet 8-30 tablets by it y of 00:00: mouth in [place] 00 the Medical morning. Branch amLODIPine 2022-0 Yes [id number] 2.5mg Take 0.5 Univers 5 mg tablet 8-30 tablets by it y of 00:00: mouth in [place] the Medical morning. Branch amLODIPine 2022-0 Yes [id number] 2.5mg Take 0.5 Univers 5 mg tablet 8-30 tablets by it y of 00:00: mouth in [place] the Medical morning. Branch amLODIPine 2-0 Yes [id number] 2.5mg Take 0.5 Univers 5 mg tablet 8-30 tablets by it y of 00:00: mouth in [place] the Medical morning. Branch butalbital- 2021-0 Yes [id number] 1{tbl} Take 1 Univers aspirin-caf 8-12 tablet by ity of feine per 00:00: mouth [place] tablet 00 every 6 Medical (six) Branch hours as needed for Pain. butalbital- 2021-0 Yes [id number] 1{tbl} Take 1 Univers aspirin-caf 8-12 tablet by ity of feine per 00:00: mouth [place] tablet 00 every 6 Medical (six) Branch hours as needed for Pain. butalbital- 2021-0 Yes [id number] 1{tbl} Take 1 Univers aspirin-caf 8-12 tablet by ity of feine per 00:00: mouth [place] tablet 00 every 6 Medical (six) Branch hours as needed for Pain. butalbital- 2021-0 Yes [id number] 1{tbl} Take 1 Univers aspirin-caf 8-12 tablet by ity of feine per 00:00: mouth [place] tablet 00 every 6 Medical (six) Branch hours as needed for Pain. butalbital- 2021- Yes [id number] 1{tbl} Take 1 Univers aspirin-caf 8-12 tablet by ity of feine per 00:00: mouth [place] tablet 00 every 6 Medical (six) Branch hours as needed for Pain. butalbital- Yes [id number] 1{tbl} Take 1 Univers aspirin-caf 8-12 tablet by ity of feine per 00:00: mouth [place] tablet 00 every 6 Medical (six) Branch hours as needed for Pain. butalbital- Yes [id number] 1{tbl} Take 1 Univers aspirin-caf 8-12 tablet by ity of feine per 00:00: mouth [place] tablet 00 every 6 Medical (six) Branch hours as needed for Pain. butalbital- Yes [id number] 1{tbl} Take 1 Univers aspirin-caf 8-12 tablet by ity of feine per 00:00: mouth [place] tablet 00 every 6 Medical (six) Branch hours as needed for Pain. butalbital- Yes [id number] 1{tbl} Take 1 Univers aspirin-caf 8-12 tablet by ity of feine per 00:00: mouth [place] tablet 00 every 6 Medical (six) Branch hours as needed for Pain. butalbital- Yes [id number] 1{tbl} Take 1 Univers aspirin-caf 8-12 tablet by ity of feine per 00:00: mouth [place] tablet 00 every 6 Medical (six) Branch hours as needed for Pain. butalbital- Yes [id number] 1{tbl} Take 1 Univers aspirin-caf 8-12 tablet by ity of feine per 00:00: mouth [place] tablet 00 every 6 Medical (six) Branch hours as needed for Pain. butalbital- Yes [id number] 1{tbl} Take 1 Univers aspirin-caf 8-12 tablet by ity of feine per 00:00: mouth [place] tablet 00 every 6 Medical (six) Branch hours as needed for Pain. butalbital- Yes [id number] 1{tbl} Take 1 Univers aspirin-caf 8-12 tablet by ity of feine per 00:00: mouth [place] tablet 00 every 6 Medical (six) Branch hours as needed for Pain. butalbital- 2021-0 Yes [id number] 1{tbl} Take 1 Univers aspirin-caf 8-12 tablet by ity of feine per 00:00: mouth [place] tablet 00 every 6 Medical (six) Branch hours as needed for Pain. butalbital- 2021-0 Yes [id number] 1{tbl} Take 1 Univers aspirin-caf 8-12 tablet by ity of feine per 00:00: mouth [place] tablet 00 every 6 Medical (six) Branch hours as needed for Pain. butalbital- 2021-0 Yes [id number] 1{tbl} Take 1 Univers aspirin-caf 8-12 tablet by ity of feine per 00:00: mouth [place] tablet 00 every 6 Medical (six) Branch hours as needed for Pain. [facility] [id number] GIVE 1 Univers N 80 mg 8-01 TABLET ity of tablet 00:00: THROUGH [place] ENTERAL Medical TUBE AT [facility] Yes [id number] GIVE 1 Univers N 80 mg 8-01 TABLET ity of tablet 00:00: THROUGH [place] ENTERAL Medical TUBE AT [facility] Yes [id number] GIVE 1 Univers N 80 mg 8-01 TABLET ity of tablet 00:00: THROUGH [place] ENTERAL Medical TUBE AT [facility] Yes [id number] GIVE 1 Univers N 80 mg 8-01 TABLET ity of tablet 00:00: THROUGH [place] ENTERAL Medical TUBE AT [facility] Yes [id number] GIVE 1 Univers N 80 mg 8-01 TABLET ity of tablet 00:00: THROUGH [place] ENTERAL Medical TUBE AT [facility] Yes [id number] GIVE 1 Univers N 80 mg 8-01 TABLET ity of tablet 00:00: THROUGH [place] ENTERAL Medical TUBE AT [facility] Yes [id number] GIVE 1 Univers N 80 mg 8-01 TABLET ity of tablet 00:00: THROUGH [place] ENTERAL Medical TUBE AT [facility] Yes [id number] GIVE 1 Univers N 80 mg 8-01 TABLET ity of tablet 00:00: THROUGH [place] ENTERAL Medical TUBE AT [facility] Yes [id number] GIVE 1 Univers N 80 mg 8-01 TABLET ity of tablet 00:00: THROUGH [place] ENTERAL Medical TUBE AT [facility] Yes [id number] GIVE 1 Univers N 80 mg 8-01 TABLET ity of tablet 00:00: THROUGH [place] ENTERAL Medical TUBE AT [facility] Yes [id number] GIVE 1 Univers N 80 mg 8-01 TABLET ity of tablet 00:00: THROUGH [place] ENTERAL Medical TUBE AT [facility] Yes [id number] GIVE 1 Univers N 80 mg 8-01 TABLET ity of tablet 00:00: THROUGH [place] ENTERAL Medical TUBE AT [facility] Yes [id number] GIVE 1 [facility] N 80 mg 8-01 TABLET ity of tablet 00:00: THROUGH [place] ENTERAL Medical TUBE AT [facility] Yes [id number] GIVE 1 [facility] N 80 mg 8-01 TABLET ity of tablet 00:00: THROUGH [place] ENTERAL Medical TUBE AT [facility] ([facility]) Yes [id number] GIVE 1 [facility] N 80 mg 8-01 TABLET ity of tablet 00:00: THROUGH [place] ENTERAL Medical TUBE AT [facility]) Yes [id number] GIVE 1 [facility] N 80 mg 8-01 TABLET ity of tablet 00:00: THROUGH [place] ENTERAL Medical TUBE AT [facility] acetaminoph Yes [id number] 650mg Take 1 [facility] en (TYLENOL 04-22 [id number] tablet by i ty of ARTHRITIS 00:00: mouth [place] PAIN) 650 00 every 8 Medical mg CR (eight) Branch tablet hours as needed for Pain. Diclofenac Yes [id number] Apply to [facility] Sodium 04-22 [id number] area(s) 4 ity of (VOLTAREN) 00:00: (four) [place] 1 % gel 00 times Medical daily. Branch Apply 4 g qid Lidocaine 5 Yes [id number] Apply to [facility] % cream 04-22 [id number] area(s) 2 ity o f 00:00: (two) [place] 00 times Medical daily as Branch needed for Pain (scale 4-6). Apply 5g to affected areas BID PRN acetaminoph 2021-0 Yes [id number] 650mg Take 1 [facility] en (TYLENOL 7-07 [id number] tablet by i ty of ARTHRITIS 00:00: mouth [place] PAIN) 650 00 every 8 Medical mg CR (eight) Branch tablet hours as needed for Pain. Diclofenac 2021-0 Yes [id number] Apply to [facility] Sodium 7-07 [id number] area(s) 4 ity of (VOLTAREN) 00:00: (four) [place] 1 % gel 00 times Medical daily. Branch Apply 4 g qid Lidocaine 5 2021-0 Yes [id number] Apply to [facility] % cream 7-07 [id number] area(s) 2 ity o f 00:00: (two) [place] 00 times Medical daily as Branch needed for Pain (scale 4-6). Apply 5g to affected areas BID PRN acetaminoph 2021-0 Yes [id number] 650mg Take 1 [facility] en (TYLENOL 7-07 [id number] tablet by i ty of ARTHRITIS 00:00: mouth [place] PAIN) 650 00 every 8 Medical mg CR (eight) Branch tablet hours as needed for Pain. Diclofenac 2021-0 Yes [id number] Apply to [facility] Sodium 7-07 [id number] area(s) 4 ity of (VOLTAREN) 00:00: (four) [place] 1 % gel 00 times Medical daily. Branch Apply 4 g qid Lidocaine 5 2021-0 Yes [id number] Apply to [facility] % cream 7-07 [id number] area(s) 2 ity o f 00:00: (two) [place] 00 times Medical daily as Branch needed for Pain (scale 4-6). Apply 5g to affected areas BID PRN acetaminoph 2021-0 Yes [id number] 650mg Take 1 [facility] en (TYLENOL 7-07 [id number] tablet by i ty of ARTHRITIS 00:00: mouth [place] PAIN) 650 00 every 8 Medical mg CR (eight) Branch tablet hours as needed for Pain. Diclofenac 2021-0 Yes [id number] Apply to [facility] Sodium 7-07 [id number] area(s) 4 ity of (VOLTAREN) 00:00: (four) [place] 1 % gel 00 times Medical daily. Branch Apply 4 g qid Lidocaine 5 2021-0 Yes [id number] Apply to [facility] % cream 7-07 [id number] area(s) 2 ity o f 00:00: (two) [place] 00 times Medical daily as Branch needed for Pain (scale 4-6). Apply 5g to affected areas BID PRN acetaminoph 2022-0 Yes [id number] 650mg Take 1 [facility] en (TYLENOL 7-07 [id number] tablet by i ty of ARTHRITIS 00:00: mouth [place] PAIN) 650 00 every 8 Medical mg CR (eight) Branch tablet hours as needed for Pain. Diclofenac 2022-0 Yes [id number] Apply to [facility] Sodium 7-07 [id number] area(s) 4 ity of (VOLTAREN) 00:00: (four) [place] 1 % gel 00 times Medical daily. Branch Apply 4 g qid Lidocaine 5 2021-0 Yes [id number] Apply to [facility] % cream 7-07 [id number] area(s) 2 ity o f 00:00: (two) [place] 00 times Medical daily as Branch needed for Pain (scale 4-6). Apply 5g to affected areas BID PRN acetaminoph 2022-0 Yes [id number] 650mg Take 1 [facility] en (TYLENOL 7-07 [id number] tablet by i ty of ARTHRITIS 00:00: mouth [place] PAIN) 650 00 every 8 Medical mg CR (eight) Branch tablet hours as needed for Pain. Diclofenac 2022-0 Yes [id number] Apply to [facility] Sodium 7-07 [id number] area(s) 4 ity of (VOLTAREN) 00:00: (four) [place] 1 % gel 00 times Medical daily. Branch Apply 4 g qid Lidocaine 5 2-0 Yes [id number] Apply to [facility] % cream 7-07 [id number] area(s) 2 ity o f 00:00: (two) [place] 00 times Medical daily as Branch needed for Pain (scale 4-6). Apply 5g to affected areas BID PRN acetaminoph 2022-0 Yes [id number] 650mg Take 1 [facility] en (TYLENOL 7-07 [id number] tablet by i ty of ARTHRITIS 00:00: mouth [place] PAIN) 650 00 every 8 Medical mg CR (eight) Branch tablet hours as needed for Pain. Diclofenac 2022-0 Yes [id number] Apply to [facility] Sodium 7-07 [id number] area(s) 4 ity of (VOLTAREN) 00:00: (four) [place] 1 % gel 00 times Medical daily. Branch Apply 4 g qid Lidocaine 5 2-0 Yes [id number] Apply to [facility] % cream 7-07 [id number] area(s) 2 ity o f 00:00: (two) [place] 00 times Medical daily as Branch needed for Pain (scale 4-6). Apply 5g to affected areas BID PRN acetaminoph 2-0 Yes [id number] 650mg Take 1 [facility] en (TYLENOL 7-07 [id number] tablet by i ty of ARTHRITIS 00:00: mouth [place] PAIN) 650 00 every 8 Medical mg CR (eight) Branch tablet hours as needed for Pain. Diclofenac 2021-0 Yes [id number] Apply to [facility] Sodium 7-07 [id number] area(s) 4 ity of (VOLTAREN) 00:00: (four) [place] 1 % gel 00 times Medical daily. Branch Apply 4 g qid Lidocaine 5 2021-0 Yes [id number] Apply to [facility] % cream 7-07 [id number] area(s) 2 ity o f 00:00: (two) [place] 00 times Medical daily as Branch needed for Pain (scale 4-6). Apply 5g to affected areas BID PRN acetaminoph 2021-0 Yes [id number] 650mg Take 1 [facility] en (TYLENOL 7-07 [id number] tablet by i ty of ARTHRITIS 00:00: mouth [place] PAIN) 650 00 every 8 Medical mg CR (eight) Branch tablet hours as needed for Pain. Diclofenac 2021-0 Yes [id number] Apply to [facility] Sodium 7-07 [id number] area(s) 4 ity of (VOLTAREN) 00:00: (four) [place] 1 % gel 00 times Medical daily. Branch Apply 4 g qid Lidocaine 5 2021-0 Yes [id number] Apply to [facility] % cream 7-07 [id number] area(s) 2 ity o f 00:00: (two) [place] 00 times Medical daily as Branch needed for Pain (scale 4-6). Apply 5g to affected areas BID PRN acetaminoph 2-0 Yes [id number] 650mg Take 1 [facility] en (TYLENOL 7-07 [id number] tablet by i ty of ARTHRITIS 00:00: mouth [place] PAIN) 650 00 every 8 Medical mg CR (eight) Branch tablet hours as needed for Pain. Diclofenac 2-0 Yes [id number] Apply to [facility] Sodium 7-07 [id number] area(s) 4 ity of (VOLTAREN) 00:00: (four) [place] 1 % gel 00 times Medical daily. Branch Apply 4 g qid Lidocaine 5 2021-0 Yes [id number] Apply to [facility] % cream 7- 424917 area(s) 2 ity o f 00:00: (two) [place] 00 times Medical daily as Branch needed for Pain (scale 4-6). Apply 5g to affected areas BID PRN acetaminoph 2021-0 Yes [id number] 650mg Take 1 [facility] en (TYLENOL 7-07 [id number] tablet by i ty of ARTHRITIS 00:00: mouth [place] PAIN) 650 00 every 8 Medical mg CR (eight) Branch tablet hours as needed for Pain. Diclofenac 2021-0 Yes [id number] Apply to [facility] Sodium 7-07 [id number] area(s) 4 ity of (VOLTAREN) 00:00: (four) [place] 1 % gel 00 times Medical daily. Branch Apply 4 g qid Lidocaine 5 2021-0 Yes [id number] Apply to [facility] % cream 7- [id number] area(s) 2 ity o f 00:00: (two) [place] 00 times Medical daily as Branch needed for Pain (scale 4-6). Apply 5g to affected areas BID PRN acetaminoph 2021-0 Yes [id number] 650mg Take 1 [facility] en (TYLENOL 7-07 [id number] tablet by i ty of ARTHRITIS 00:00: mouth [place] PAIN) 650 00 every 8 Medical mg CR (eight) Branch tablet hours as needed for Pain. Diclofenac 2021-0 Yes [id number] Apply to [facility] Sodium 7-07 [id number] area(s) 4 ity of (VOLTAREN) 00:00: (four) [place] 1 % gel 00 times Medical daily. Branch Apply 4 g qid Lidocaine 5 2021-0 Yes [id number] Apply to [facility] % cream 7-07 [id number] area(s) 2 ity o f 00:00: (two) [place] 00 times Medical daily as Branch needed for Pain (scale 4-6). Apply 5g to affected areas BID PRN acetaminoph 2021-0 Yes [id number] 650mg Take 1 [facility] en (TYLENOL 7-07 [id number] tablet by i ty of ARTHRITIS 00:00: mouth [place] PAIN) 650 00 every 8 Medical mg CR (eight) Branch tablet hours as needed for Pain. Diclofenac 2021-0 Yes [id number] Apply to [facility] Sodium 7-07 [id number] area(s) 4 ity of (VOLTAREN) 00:00: (four) [place] 1 % gel 00 times Medical daily. Branch Apply 4 g qid Lidocaine 5 2021-0 Yes [id number] Apply to [facility] % cream 7-07 [id number] area(s) 2 ity o f 00:00: (two) [place] 00 times Medical daily as Branch needed for Pain (scale 4-6). Apply 5g to affected areas BID PRN acetaminoph 2-0 Yes [id number] 650mg Take 1 [facility] en (TYLENOL 7-07 [id number] tablet by i ty of ARTHRITIS 00:00: mouth [place] PAIN) 650 00 every 8 Medical mg CR (eight) Branch tablet hours as needed for Pain. Diclofenac 2021-0 Yes [id number] Apply to [facility] Sodium 7-07 [id number] area(s) 4 ity of (VOLTAREN) 00:00: (four) [place] 1 % gel 00 times Medical daily. Branch Apply 4 g qid Lidocaine 5 2021-0 Yes [id number] Apply to [facility] % cream 7-07 [id number] area(s) 2 ity o f 00:00: (two) [place] 00 times Medical daily as Branch needed for Pain (scale 4-6). Apply 5g to affected areas BID PRN acetaminoph 2-0 Yes [id number] 650mg Take 1 [facility] en (TYLENOL 7-07 [id number] tablet by i ty of ARTHRITIS 00:00: mouth [place] PAIN) 650 00 every 8 Medical mg CR (eight) Branch tablet hours as needed for Pain. Diclofenac 2-0 Yes [id number] Apply to [facility] Sodium 7-07 [id number] area(s) 4 ity of (VOLTAREN) 00:00: (four) [place] 1 % gel 00 times Medical daily. Branch Apply 4 g qid Lidocaine 5 2-0 Yes [id number] Apply to [facility] % cream 7-07 [id number] area(s) 2 ity o f 00:00: (two) [place] 00 times Medical daily as Branch needed for Pain (scale 4-6). Apply 5g to affected areas BID PRN acetaminoph 2-0 Yes [id number] 650mg Take 1 [facility] en (TYLENOL 7-07 [id number] tablet by i ty of ARTHRITIS 00:00: mouth [place] PAIN) 650 00 every 8 Medical mg CR (eight) Branch tablet hours as needed for Pain. Diclofenac 2022-0 Yes [id number] Apply to [facility] Sodium 7- [id number] area(s) 4 ity of (VOLTAREN) 00:00: (four) [place] 1 % gel 00 times Medical daily. Branch Apply 4 g qid Lidocaine 5 2021-0 Yes [id number] Apply to [facility] % cream 04-22 [id number] area(s) 2 ity o f 00:00: (two) [place] 00 times Medical daily as Branch needed for Pain (scale 4-6). Apply 5g to affected areas BID PRN acetaminoph 2021-0 Yes [id number] 650mg Take 1 [facility] en (TYLENOL 04-22 [id number] tablet by i ty of ARTHRITIS 00:00: mouth [place] PAIN) 650 00 every 8 Medical mg CR (eight) Branch tablet hours as needed for Pain. Diclofenac 0 Yes [id number] Apply to [facility] Sodium - 963100 area(s) 4 ity of (VOLTAREN) 00:00: (four) [place] 1 % gel 00 times Medical daily. Branch Apply 4 g qid Lidocaine 5 0 Yes [id number] Apply to [facility] % cream 04-22 [id number] area(s) 2 ity o f 00:00: (two) [place] 00 times Medical daily as Branch needed for Pain (scale 4-6). Apply 5g to affected areas BID PRN acetaminoph 0 Yes [id number] 650mg Take 1 [facility] en (TYLENOL 04-22 [id number] tablet by i ty of ARTHRITIS 00:00: mouth [place] PAIN) 650 00 every 8 Medical mg CR (eight) Branch tablet hours as needed for Pain. Diclofenac 0 Yes [id number] Apply to [facility] Sodium 7- 109219 area(s) 4 ity of (VOLTAREN) 00:00: (four) [place] 1 % gel 00 times Medical daily. Branch Apply 4 g qid Lidocaine 5 2021-0 Yes [id number] Apply to [facility] % cream 04-22 [id number] area(s) 2 ity o f 00:00: (two) [place] 00 times Medical daily as Branch needed for Pain (scale 4-6). Apply 5g to affected areas BID PRN tiZANidine 2021- No [id number] TAKE 1 Univers 4 mg tablet 04-22 [id number] TABLET BY ity of 00:00: 00:00 MOUTH [place] 00 :00 EVERY 8 Medical HOURS Branch NEEDED FOR MUSCLE SPASMS gabapentin 2021-0 Yes 100mg [id number] Take [address] [facility] (NEURONTIN) 6-26 [id number] mg by L [facility] 100 MG 11:44: 3D mouth 3 Medical capsule 44 (three) Center times daily. atorvastati 0 Yes 40mg QD Take [address] [facility] (LIPITOR) 6-26 by mouth [facility] 40 MG 11:44: daily. Medical tablet 44 Center gabapentin 2021-0 Yes 100mg [id number] Take [address] [facility] (NEURONTIN) 6-26 [id number] mg by [facility] 100 MG 11:44: 3D mouth 3 Medical capsule 44 (three) Center times daily. atorvastati 2021-0 Yes 40mg QD Take [address] [facility] (LIPITOR) 6-26 by mouth [facility] 40 MG 11:44: daily. Medical tablet [address] [place] pantoprazol 0 Yes Univer s e 40 mg EC 6-26 ity of tablet 00:00: [place] [facility] pantoprazol 2021-0 Yes Univer s e 40 mg EC 6-26 ity of tablet 00:00: [place] [address] Medical Branch pantoprazol 2021-0 Yes Univer s e 40 mg EC 6-26 ity of tablet 00:00: [place] [facility] pantoprazol 2021-0 Yes Univer s e 40 mg EC 6-26 ity of tablet 00:00: [place] [facility] pantoprazol 2021-0 Yes Univer s e 40 mg EC 6-26 ity of tablet 00:00: [place] [facility] pantoprazol 2-0 Yes Univer s e 40 mg EC 6-26 ity of tablet 00:00: [place] [address] Medical Branch pantoprazol 2021-0 Yes Univer s e 40 mg EC 6-26 ity of tablet 00:00: [place] [facility] pantoprazol 2021-0 Yes Univer s e 40 mg EC 6-26 ity of tablet 00:00: [place] [facility] pantoprazol 2021-0 Yes Univer s e 40 mg EC 6-26 ity of tablet 00:00: [place] [address] Medical Branch pantoprazol 2021-0 Yes Univer s e 40 mg EC 6-26 ity of tablet 00:00: [place] [facility] pantoprazol 2021-0 Yes Univer s e 40 mg EC 6-26 ity of tablet 00:00: [place] [facility] pantoprazol 2021-0 Yes Univer s e 40 mg EC 6-26 ity of tablet 00:00: [place] [facility] pantoprazol 2021-0 Yes Univer s e 40 mg EC 6-26 ity of tablet 00:00: [place] [facility] pantoprazol 2021-0 Yes Univer s e 40 mg EC 6-26 ity of tablet 00:00: [place] [facility] pantoprazol 2021-0 Yes Univer s e 40 mg EC 6-26 ity of tablet 00:00: [place] [facility] Branch pantoprazol 2021-0 Yes Univer s e 40 mg EC 6-26 ity of tablet 00:00: [place] [facility] Branch pantoprazol 2021-0 Yes Univer s e 40 mg EC 6-26 ity of tablet 00:00: [place] [facility] Branch pantoprazol 2021-0 Yes Univer s e 40 mg EC 6-26 ity of tablet 00:00: [place] [facility] Branch pantoprazol 2021-0 2022- No 40mg Q.5D Take [address] [facility] 6-26 07-26 tablet (40 [facility] (PROTONIX) 00:00: 23:59 mg total) M edical 40 MG 00 :00 by mouth 2 Center tablet (two) times daily for 30 days. pantoprazol 2021-0 2022- No 40mg Q.5D Take [address] [facility] 6-26 07-26 tablet (40 [facility] (PROTONIX) 00:00: 23:59 mg total) M edical 40 MG 00 :00 by mouth 2 Center tablet (two) times daily for 30 days. traMADoL 2021-0 Yes [id number] 1{tbl} Take 1 [facility] 100 mg Tab 6-14 tablet by ity of 00:00: mouth 3 (three) Medical times Branch daily as needed for Pain (scale 7-10). traMADoL 2021-0 Yes [id number] 1{tbl} Take 1 [facility] 100 mg Tab 6-14 tablet by ity of 00:00: mouth 3 (three) Medical times Branch daily as needed for Pain (scale 7-10). traMADoL 2021-0 Yes [id number] 1{tbl} Take 1 [facility] 100 mg Tab 6-14 tablet by ity of 00:00: mouth 3 [place] 00 (three) Medical times Branch daily as needed for Pain (scale 7-10). traMADoL 0 Yes [id number] 1{tbl} Take 1 [facility] 100 mg Tab 6-14 tablet by ity of 00:00: mouth 3 [place] 00 (three) Medical times Branch daily as needed for Pain (scale 7-10). traMADoL Yes [id number] 1{tbl} Take 1 [facility] 100 mg Tab 6-14 tablet by ity of 00:00: mouth 3 [place] 00 (three) Medical times Branch daily as needed for Pain (scale 7-10). traMADoL Yes [id number] 1{tbl} Take 1 [facility] 100 mg Tab 6-14 tablet by ity of 00:00: mouth 3 00 (three) Medical times Branch daily as needed for Pain (scale 7-10). traMADoL Yes [id number] 1{tbl} Take 1 [facility] 100 mg Tab 6-14 tablet by ity of 00:00: mouth 3 00 (three) Medical times Branch daily as needed for Pain (scale 7-10). traMADoL Yes [id number] 1{tbl} Take 1 [facility] 100 mg Tab 6-14 tablet by ity of 00:00: mouth 3 00 (three) Medical times Branch daily as needed for Pain (scale 7-10). traMADoL Yes [id number] 1{tbl} Take 1 [facility] 100 mg Tab 6-14 tablet by ity of 00:00: mouth 3 [place] 00 (three) Medical times Branch daily as needed for Pain (scale 7-10). traMADoL Yes [id number] 1{tbl} Take 1 [facility] 100 mg Tab 6-14 tablet by ity of 00:00: mouth 3 00 (three) Medical times Branch daily as needed for Pain (scale 7-10). traMADoL Yes [id number] 1{tbl} Take 1 [facility] 100 mg Tab 6-14 tablet by ity of 00:00: mouth 3 [place] 00 (three) Medical times Branch daily as needed for Pain (scale 7-10). traMADoL Yes [id number] 1{tbl} Take 1 [facility] 100 mg Tab 6-14 tablet by ity of 00:00: mouth 3 (three) Medical times Branch daily as needed for Pain (scale 7-10). traMADoL 0 Yes [id number] 1{tbl} Take 1 [facility] 100 mg Tab 6-14 tablet by ity of 00:00: mouth 3 (three) Medical times Branch daily as needed for Pain (scale 7-10). traMADoL Yes [id number] 1{tbl} Take 1 [facility] 100 mg Tab 6-14 tablet by ity of 00:00: mouth 3 (three) Medical times Branch daily as needed for Pain (scale 7-10). traMADoL Yes [id number] 1{tbl} Take 1 [facility] 100 mg Tab 6-14 tablet by ity of 00:00: mouth 3 (three) Medical times Branch daily as needed for Pain (scale 7-10). traMADoL Yes [id number] 1{tbl} Take 1 [facility] 100 mg Tab 6-14 tablet by ity of 00:00: mouth 3 (three) Medical times Branch daily as needed for Pain (scale 7-10). traMADoL Yes [id number] 1{tbl} Take 1 [facility] 100 mg Tab 6-14 tablet by ity of 00:00: mouth 3 (three) Medical times Branch daily as needed for Pain (scale 7-10). traMADoL Yes [id number] 1{tbl} Take 1 [facility] 100 mg Tab 6-14 tablet by ity of 00:00: mouth 3 (three) Medical times Branch daily as needed for Pain (scale 7-10). gabapentin 2021- No [id number] 400mg Take 1 [facility] 400 mg 6-14 - capsule by ity of capsule 00:00: 00:00 mouth 3 [place] 00 :00 (three) Medical times Branch daily. ALBUTEROL 0 Yes 8.5g Inhale 8.5 [facility] INHALE 6-09 g every 4 ity of 10:27: (four) [place] 17 hours. Medical Branch atomoxetine Yes 40mg Take 40 mg [facility] 40 mg 6-09 by mouth ity of capsule 10:27: daily. [place] [address] Medical Branch traZODone 2021-0 Yes 150mg Take 150 Uni vers 100 mg 6-09 mg by ity of tablet 10:27: mouth at [place] [address] bedtime. Medical Branch duloxetine 2021-0 Yes 30mg Take 30 mg U nivers HCl 6-09 by mouth ity of (DULOXETINE 10:27: at [place] ORAL) 17 bedtime. Medical Branch ALBUTEROL 2021-0 Yes 8.5g Inhale 8.5 [facility] INHALE 6-09 g every 4 ity of 10:27: (four) [place] 17 hours. Medical Branch atomoxetine 2021-0 Yes 40mg Take 40 mg [facility] 40 mg 6-09 by mouth ity of capsule 10:27: daily. [place] [address] Medical Branch traZODone 2021-0 Yes 150mg Take 150 Uni vers 100 mg 6-09 mg by ity of tablet 10:27: mouth at [place] [address] bedtime. Medical Branch duloxetine 2021-0 Yes 30mg Take 30 mg U nivers HCl 6-09 by mouth ity of (DULOXETINE 10:27: at [facility]) bedtime. Medical Branch ALBUTEROL 2021-0 Yes 8.5g Inhale 8.5 [place] INHALE 6-09 g every 4 ity of 10:27: (four) [place] 17 hours. Medical Branch atomoxetine 2021-0 Yes 40mg Take 40 mg [facility] 40 mg 6-09 by mouth ity of capsule 10:27: daily. [place] [address] Medical Branch traZODone 2021-0 Yes 150mg Take 150 [facility] vers 100 mg 6-09 mg by ity of tablet 10:27: mouth at [place] [address] bedtime. Medical Branch duloxetine 2021-0 Yes 30mg Take 30 mg U nivers HCl 6-09 by mouth ity of (DULOXETINE 10:27: at [facility]) 17 bedtime. Medical Branch ALBUTEROL 2021-0 Yes 8.5g Inhale 8.5 [place] INHALE 6-09 g every 4 ity of 10:27: (four) [place] 17 hours. Medical Branch atomoxetine 2021-0 Yes 40mg Take 40 mg [facility] 40 mg 6-09 by mouth ity of capsule 10:27: daily. [place] [address] Medical Branch traZODone 2022-0 Yes 150mg Take 150 [facility] vers 100 mg 6-09 mg by ity of tablet 10:27: mouth at [place] [address] bedtime. Medical Branch duloxetine 2021-0 Yes 30mg Take 30 mg U nivers HCl 6-09 by mouth ity of (DULOXETINE 10:27: at [place] ORAL) 17 bedtime. Medical Branch ALBUTEROL 2-0 Yes 8.5g Inhale 8.5 [facility] INHALE 6-09 g every 4 ity of 10:27: (four) [place] 17 hours. Medical Branch atomoxetine 2021-0 Yes 40mg Take 40 mg [facility] 40 mg 6-09 by mouth ity of capsule 10:27: daily. [place] [address] Medical Branch traZODone 2021-0 Yes 150mg Take 150 [facility] vers 100 mg 6-09 mg by ity of tablet 10:27: mouth at [place] [address] bedtime. Medical Branch duloxetine 2021-0 Yes 30mg Take 30 mg U nivers HCl 6-09 by mouth ity of (DULOXETINE 10:27: at [place] ORAL) 17 bedtime. Medical Branch ALBUTEROL 2021-0 Yes 8.5g Inhale 8.5 [place] INHALE 6-09 g every 4 ity of 10:27: (four) [place] 17 hours. Medical Branch atomoxetine 2021-0 Yes 40mg Take 40 mg [facility] 40 mg 6-09 by mouth ity of capsule 10:27: daily. [place] [address] Medical Branch traZODone 2021-0 Yes 150mg Take 150 [facility] vers 100 mg 6-09 mg by ity of tablet 10:27: mouth at [place] [address] bedtime. Medical Branch duloxetine 2021-0 Yes 30mg Take 30 mg U nivers HCl 6-09 by mouth ity of (DULOXETINE 10:27: at [place] ORAL) 17 bedtime. Medical Branch ALBUTEROL 2-0 Yes 8.5g Inhale 8.5 [place] INHALE 6-09 g every 4 ity of 10:27: (four) [place] 17 hours. Medical Branch atomoxetine 2-0 Yes 40mg Take 40 mg [facility] 40 mg 6-09 by mouth ity of capsule 10:27: daily. [place] [address] Medical Branch traZODone 2-0 Yes 150mg Take 150 [facility] vers 100 mg 6-09 mg by ity of tablet 10:27: mouth at [place] [address] bedtime. Medical Branch duloxetine 2021-0 Yes 30mg Take 30 mg U nivers HCl 6-09 by mouth ity of (DULOXETINE 10:27: at [place] ORAL) 17 bedtime. Medical Branch ALBUTEROL 2-0 Yes 8.5g Inhale 8.5 [place] INHALE 6-09 g every 4 ity of 10:27: (four) [place] 17 hours. Medical Branch atomoxetine 2021-0 Yes 40mg Take 40 mg [facility] 40 mg 6-09 by mouth ity of capsule 10:27: daily. [place] [address] Medical Branch traZODone 2021-0 Yes 150mg Take 150 [facility] vers 100 mg 6-09 mg by ity of tablet 10:27: mouth at [place] [address] bedtime. Medical Branch duloxetine 2021-0 Yes 30mg Take 30 mg U nivers HCl 6-09 by mouth ity of (DULOXETINE 10:27: at [place] ORAL) 17 bedtime. Medical Branch ALBUTEROL 2-0 Yes 8.5g Inhale 8.5 [facility] INHALE 6-09 g every 4 ity of 10:27: (four) [place] [address] hours. Medical Branch atomoxetine 2021-0 Yes 40mg Take 40 mg [facility] 40 mg 6-09 by mouth ity of capsule 10:27: daily. [place] [address] Medical Branch traZODone 2021-0 Yes 150mg Take 150 [facility] vers 100 mg 6-09 mg by ity of tablet 10:27: mouth at [place] [address] bedtime. Medical Branch duloxetine 2021-0 Yes 30mg Take 30 mg U nivers HCl 6-09 by mouth ity of (DULOXETINE 10:27: at [place] ORAL) 17 bedtime. Medical Branch ALBUTEROL 2-0 Yes 8.5g Inhale 8.5 [facility] [place] INHALE 6-09 g every 4 ity of 10:27: (four) [place] 17 hours. Medical Branch atomoxetine 2-0 Yes 40mg Take 40 mg [facility] 40 mg 6-09 by mouth ity of capsule 10:27: daily. [place] [address] Medical Branch traZODone 2-0 Yes 150mg Take 150 [facility] vers 100 mg 6-09 mg by ity of tablet 10:27: mouth at [place] [address] bedtime. Medical Branch duloxetine 2-0 Yes 30mg Take 30 mg U nivers HCl 6-09 by mouth ity of (DULOXETINE 10:27: at [place] ORAL) 17 bedtime. Medical Branch ALBUTEROL 2021-0 Yes 8.5g Inhale 8.5 [facility] [place] INHALE 6-09 g every 4 ity of 10:27: (four) [place] 17 hours. Medical Branch atomoxetine 2021-0 Yes 40mg Take 40 mg [facility] 40 mg 6-09 by mouth ity of capsule 10:27: daily. [place] [address] Medical Branch traZODone 2021-0 Yes 150mg Take 150 [facility] vers 100 mg 6-09 mg by ity of tablet 10:27: mouth at [place] [address] bedtime. Medical Branch duloxetine 2021-0 Yes 30mg Take 30 mg U nivers HCl 6-09 by mouth ity of (DULOXETINE 10:27: at [place] ORAL) 17 bedtime. Medical Branch ALBUTEROL 2021-0 Yes 8.5g Inhale 8.5 [place] INHALE 6-09 g every 4 ity of 10:27: (four) [place] 17 hours. Medical Branch atomoxetine 2021-0 Yes 40mg Take 40 mg [facility] 40 mg 6-09 by mouth ity of capsule 10:27: daily. [place] [address] Medical Branch traZODone 2021-0 Yes 150mg Take 150 [facility] vers 100 mg 6-09 mg by ity of tablet 10:27: mouth at [place] [address] bedtime. Medical Branch duloxetine 2021-0 Yes 30mg Take 30 mg U nivers HCl 6-09 by mouth ity of (DULOXETINE 10:27: at [place] ORAL) 17 bedtime. Medical Branch ALBUTEROL 2021-0 Yes 8.5g Inhale 8.5 [place] INHALE 6-09 g every 4 ity of 10:27: (four) [place] 17 hours. Medical Branch atomoxetine 2021-0 Yes 40mg Take 40 mg [facility] 40 mg 6-09 by mouth ity of capsule 10:27: daily. [place] [address] Medical Branch traZODone 2021-0 Yes 150mg Take 150 [facility] vers 100 mg 6-09 mg by ity of tablet 10:27: mouth at [place] [address] bedtime. Medical Branch duloxetine 2021-0 Yes 30mg Take 30 mg U nivers HCl 6-09 by mouth ity of (DULOXETINE 10:27: at [place] ORAL) 17 bedtime. Medical Branch ALBUTEROL 2-0 Yes 8.5g Inhale 8.5 [facility] INHALE 6-09 g every 4 ity of 10:27: (four) [place] 17 hours. Medical Branch atomoxetine 2021-0 Yes 40mg Take 40 mg [facility] 40 mg 6-09 by mouth ity of capsule 10:27: daily. [place] [address] Medical Branch traZODone 2021-0 Yes 150mg Take 150 [facility] vers 100 mg 6-09 mg by ity of tablet 10:27: mouth at [place] [address] bedtime. Medical Branch duloxetine 2021-0 Yes 30mg Take 30 mg U nivers HCl 6-09 by mouth ity of (DULOXETINE 10:27: at [place] ORAL) 17 bedtime. Medical Branch ALBUTEROL 2021-0 Yes 8.5g Inhale 8.5 Un [facility] INHALE 6-09 g every 4 ity of 10:27: (four) [place] 17 hours. Medical Branch atomoxetine 2021-0 Yes 40mg Take 40 mg [facility] 40 mg 6-09 by mouth ity of capsule 10:27: daily. [facility] traZODone 2021-0 Yes 150mg Take 150 [facility] vers 100 mg 6-09 mg by ity of tablet 10:27: mouth at [place] [address] bedtime. Medical Branch duloxetine 2021-0 Yes 30mg Take 30 mg U nivers HCl 6-09 by mouth ity of (DULOXETINE 10:27: at [place] ORAL) 17 bedtime. Medical Branch ALBUTEROL 2021-0 Yes 8.5g Inhale 8.5 [facility] [place] INHALE 6-09 g every 4 ity of 10:27: (four) [place] 17 hours. [facility] Branch atomoxetine 2021-0 Yes 40mg Take 40 mg [facility] 40 mg 6-09 by mouth ity of capsule 10:27: daily. [place] [address] [facility] Branch traZODone 2021-0 Yes 150mg Take 150 [facility] vers 100 mg 6-09 mg by ity of tablet 10:27: mouth at [place] [address] bedtime. Medical Branch duloxetine 2021-0 Yes 30mg Take 30 mg U nivers HCl 6-09 by mouth ity of (DULOXETINE 10:27: at [place] ORAL) 17 bedtime. Medical Branch ALBUTEROL 2021-0 Yes 8.5g Inhale 8.5 [facility] [place] INHALE 6-09 g every 4 ity of 10:27: (four) [place] 17 hours. [facility] Branch atomoxetine 2021-0 Yes 40mg Take 40 mg [facility] 40 mg 6-09 by mouth ity of capsule 10:27: daily. [place] [address] [facility] Branch traZODone 2021-0 Yes 150mg Take 150 [facility] vers 100 mg 6-09 mg by ity of tablet 10:27: mouth at [place] [address] bedtime. Medical Branch duloxetine 2021-0 Yes 30mg Take 30 mg U nivers HCl 6-09 by mouth ity of (DULOXETINE 10:27: at [place] ORAL) 17 bedtime. Medical Branch ALBUTEROL 2021-0 Yes 8.5g Inhale 8.5 [facility] [place] INHALE 6-09 g every 4 ity of 10:27: (four) [place] [address] hours. Medical Branch atomoxetine 2021-0 Yes 40mg Take 40 mg [facility] 40 mg 6-09 by mouth ity of capsule 10:27: daily. [place] [address] Medical Branch traZODone 2021-0 Yes 150mg Take 150 [facility] vers 100 mg 6-09 mg by ity of tablet 10:27: mouth at [place] [address] bedtime. Medical Branch duloxetine 2021-0 Yes 30mg Take 30 mg U nivers HCl 6-09 by mouth ity of (DULOXETINE 10:27: at [place] ORAL) bedtime. Medical Branch permethrin 2021-0 Yes [id number] Apply to [facility] 5 % cream - [id number] area(s) ity o f 00:00: daily. [place] 00 Apply to Medical body from Branch neck down x 8 - 14 H, then wash off. permethrin 2022-0 Yes [id number] Apply to [facility] 5 % cream - [id number] area(s) ity o f 00:00: daily. [place] 00 Apply to Medical body from Branch neck down x 8 - 14 H, then wash off. permethrin 2022-0 Yes [id number] Apply to [facility] 5 % cream - [id number] area(s) ity o f 00:00: daily. [place] 00 Apply to Medical body from Branch neck down x 8 - 14 H, then wash off. permethrin 2022-0 Yes [id number] Apply to [facility] 5 % cream 6- 128801 area(s) ity o f 00:00: daily. [place] 00 Apply to Medical body from Branch neck down x 8 - 14 H, then wash off. permethrin 2022-0 Yes [id number] Apply to [facility] 5 % cream 6- 292834 area(s) ity o f 00:00: daily. [place] 00 Apply to Medical body from Branch neck down x 8 - 14 H, then wash off. permethrin 2022-0 Yes [id number] Apply to [facility] 5 % cream 6-09 [id number] area(s) ity o f 00:00: daily. [place] 00 Apply to Medical body from Branch neck down x 8 - 14 H, then wash off. permethrin 2022-0 Yes [id number] Apply to [facility] 5 % cream 6- 926847 area(s) ity o f 00:00: daily. [place] 00 Apply to Medical body from Branch neck down x 8 - 14 H, then wash off. permethrin 2022-0 Yes [id number] Apply to [facility] 5 % cream 6- [id number] area(s) ity o f 00:00: daily. [place] 00 Apply to Medical body from Branch neck down x 8 - 14 H, then wash off. permethrin 2022-0 Yes [id number] Apply to [facility] 5 % cream 6- 995906 area(s) ity o f 00:00: daily. [place] 00 Apply to Medical body from Branch neck down x 8 - 14 H, then wash off. permethrin 2022-0 Yes [id number] Apply to [facility] 5 % cream 6- [id number] area(s) ity o f 00:00: daily. [place] 00 Apply to Medical body from Branch neck down x 8 - 14 H, then wash off. permethrin 2022-0 Yes [id number] Apply to [facility] 5 % cream 6- 105530 area(s) ity o f 00:00: daily. [place] 00 Apply to Medical body from Branch neck down x 8 - 14 H, then wash off. permethrin 2022-0 Yes [id number] Apply to [facility] 5 % cream 6-09 [id number] area(s) ity o f 00:00: daily. [place] 00 Apply to Medical body from Branch neck down x 8 - 14 H, then wash off. permethrin 2022-0 Yes [id number] Apply to [facility] 5 % cream 6-09 100061 area(s) ity o f 00:00: daily. [place] 00 Apply to Medical body from Branch neck down x 8 - 14 H, then wash off. permethrin 2022-0 Yes [id number] Apply to [facility] 5 % cream 6- 776144 area(s) ity o f 00:00: daily. [place] 00 Apply to Medical body from Branch neck down x 8 - 14 H, then wash off. permethrin 2022-0 Yes [id number] Apply to [facility] 5 % cream - [id number] area(s) ity o f 00:00: daily. [place] 00 Apply to Medical body from Branch neck down x 8 - 14 H, then wash off. permethrin 2022-0 Yes [id number] Apply to [facility] 5 % cream 6- 447813 area(s) ity o f 00:00: daily. [place] 00 Apply to Medical body from Branch neck down x 8 - 14 H, then wash off. permethrin 2022-0 Yes [id number] Apply to [facility] 5 % cream 6- 982772 area(s) ity o f 00:00: daily. [place] 00 Apply to Medical body from Branch neck down x 8 - 14 H, then wash off. permethrin 2022-0 Yes [id number] Apply to [facility] 5 % cream - 171863 area(s) ity o f 00:00: daily. [place] 00 Apply to Medical body from Branch neck down x 8 - 14 H, then wash off. sildenafil 2022-0 Yes [id number] 20mg Take 1 [facility] (REVATIO) 4-06 tablet by ity o f 20 mg 00:00: mouth as [place] tablet 00 needed Medical (Take 1 Branch tablet by mouth as needed (Erectile Dsyfynctio n). Take 1 Take 30 mins prior to being intimate. Do not exceed 40mg in 24H. Do not mix with any other medication ). sildenafil 2022-0 Yes [id number] 20mg Take 1 [facility] (REVATIO) 4-06 tablet by ity o f 20 mg 00:00: mouth as [place] tablet 00 needed Medical (Take 1 Branch tablet by mouth as needed (Erectile Dsyfynctio n). Take 1 Take 30 mins prior to being intimate. Do not exceed 40mg in 24H. Do not mix with any other medication ). sildenafil 2022-0 Yes [id number] 20mg Take 1 [facility] (REVATIO) 4-06 tablet by ity o f 20 mg 00:00: mouth as [place] tablet 00 needed Medical (Take 1 Branch tablet by mouth as needed (Erectile Dsyfynctio n). Take 1 Take 30 mins prior to being intimate. Do not exceed 40mg in 24H. Do not mix with any other medication ). sildenafil 2021-0 Yes [id number] 20mg Take 1 [facility] (REVATIO) 4-06 tablet by ity o f 20 mg 00:00: mouth as [place] tablet 00 needed Medical (Take 1 Branch tablet by mouth as needed (Erectile Dsyfynctio n). Take 1 Take 30 mins prior to being intimate. Do not exceed 40mg in 24H. Do not mix with any other medication ). sildenafil 2021-0 Yes [id number] 20mg Take 1 [facility] (REVATIO) 4-06 tablet by ity o f 20 mg 00:00: mouth as [place] tablet 00 needed Medical (Take 1 Branch tablet by mouth as needed (Erectile Dsyfynctio n). Take 1 Take 30 mins prior to being intimate. Do not exceed 40mg in 24H. Do not mix with any other medication ). sildenafil 2021-0 Yes [id number] 20mg Take 1 [facility] (REVATIO) 4-06 tablet by ity o f 20 mg 00:00: mouth as [place] tablet 00 needed Medical (Take 1 Branch tablet by mouth as needed (Erectile Dsyfynctio n). Take 1 Take 30 mins prior to being intimate. Do not exceed 40mg in 24H. Do not mix with any other medication ). sildenafil 2021-0 Yes [id number] 20mg Take 1 [facility] (REVATIO) 4-06 tablet by ity o f 20 mg 00:00: mouth as [place] tablet 00 needed Medical (Take 1 Branch tablet by mouth as needed (Erectile Dsyfynctio n). Take 1 Take 30 mins prior to being intimate. Do not exceed 40mg in 24H. Do not mix with any other medication ). sildenafil 2021-0 Yes [id number] 20mg Take 1 [facility] (REVATIO) 4-06 tablet by ity o f 20 mg 00:00: mouth as [place] tablet 00 needed Medical (Take 1 Branch tablet by mouth as needed (Erectile Dsyfynctio n). Take 1 Take 30 mins prior to being intimate. Do not exceed 40mg in 24H. Do not mix with any other medication ). sildenafil 2021-0 Yes [id number] 20mg Take 1 [facility] (REVATIO) 4-06 tablet by ity o f 20 mg 00:00: mouth as [place] tablet 00 needed Medical (Take 1 Branch tablet by mouth as needed (Erectile Dsyfynctio n). Take 1 Take 30 mins prior to being intimate. Do not exceed 40mg in 24H. Do not mix with any other medication ). sildenafil 2021-0 Yes [id number] 20mg Take 1 [facility] (REVATIO) 4-06 tablet by ity o f 20 mg 00:00: mouth as [place] tablet 00 needed Medical (Take 1 Branch tablet by mouth as needed (Erectile Dsyfynctio n). Take 1 Take 30 mins prior to being intimate. Do not exceed 40mg in 24H. Do not mix with any other medication ). sildenafil 2021-0 Yes [id number] 20mg Take 1 [facility] (REVATIO) 4-06 tablet by ity o f 20 mg 00:00: mouth as [place] tablet 00 needed Medical (Take 1 Branch tablet by mouth as needed (Erectile Dsyfynctio n). Take 1 Take 30 mins prior to being intimate. Do not exceed 40mg in 24H. Do not mix with any other medication ). sildenafil 2021-0 Yes [id number] 20mg Take 1 [facility] (REVATIO) 4-06 tablet by ity o f 20 mg 00:00: mouth as [place] tablet 00 needed Medical (Take 1 Branch tablet by mouth as needed (Erectile Dsyfynctio n). Take 1 Take 30 mins prior to being intimate. Do not exceed 40mg in 24H. Do not mix with any other medication ). sildenafil 2021-0 Yes [id number] 20mg Take 1 [facility] (REVATIO) 4-06 tablet by ity o f 20 mg 00:00: mouth as [place] tablet 00 needed Medical (Take 1 Branch tablet by mouth as needed (Erectile Dsyfynctio n). Take 1 Take 30 mins prior to being intimate. Do not exceed 40mg in 24H. Do not mix with any other medication ). sildenafil 2021-0 Yes [id number] 20mg Take 1 [facility] (REVATIO) 4-06 tablet by ity o f 20 mg 00:00: mouth as [place] tablet 00 needed Medical (Take 1 Branch tablet by mouth as needed (Erectile Dsyfynctio n). Take 1 Take 30 mins prior to being intimate. Do not exceed 40mg in 24H. Do not mix with any other medication ). sildenafil Yes [id number] 20mg Take 1 [facility] (REVATIO) 4-06 tablet by ity o f 20 mg 00:00: mouth as [place] tablet 00 needed Medical (Take 1 Branch tablet by mouth as needed (Erectile Dsyfynctio n). Take 1 Take 30 mins prior to being intimate. Do not exceed 40mg in 24H. Do not mix with any other medication ). sildenafil Yes [id number] 20mg Take 1 [facility] (REVATIO) 4-06 tablet by ity o f 20 mg 00:00: mouth as [place] tablet 00 needed Medical (Take 1 Branch tablet by mouth as needed (Erectile Dsyfynctio n). Take 1 Take 30 mins prior to being intimate. Do not exceed 40mg in 24H. Do not mix with any other medication ). sildenafil Yes [id number] 20mg Take 1 [facility] (REVATIO) 4-06 tablet by ity o f 20 mg 00:00: mouth as [place] tablet 00 needed Medical (Take 1 Branch tablet by mouth as needed (Erectile Dsyfynctio n). Take 1 Take 30 mins prior to being intimate. Do not exceed 40mg in 24H. Do not mix with any other medication ). sildenafil Yes [id number] 20mg Take 1 [facility] (REVATIO) 4-06 tablet by ity o f 20 mg 00:00: mouth as [place] tablet 00 needed Medical (Take 1 Branch tablet by mouth as needed (Erectile Dsyfynctio n). Take 1 Take 30 mins prior to being intimate. Do not exceed 40mg in 24H. Do not mix with any other medication ). nicotine 7 Yes [id number] 1{patch Apply 1 [facility] mg/24 hr 2-23 } Patch to ity of patch 00:00: area(s) [place] 00 every 24 Medical (twenty-fo Branch ur) hours. Apply 21mg patch daily x 6 weeks; then apply 14mf patch daily x 2 weeks; then apply 7mg patch daily x 2 weeks. Stop smoking on initiation of therapy nicotine 21 2021- Yes [id number] 1{patch Apply 1 [facility] mg/24 hr 2-23 } Patch to ity of patch 00:00: area(s) [place] 00 daily. Medical Apply 21mg Branch patch daily x 6 weeks; then apply 14mf patch daily x 2 weeks; then apply 7mg patch daily x 2 weeks. Stop smoking on initiation of therapy nicotine Yes [id number] 1{patch Apply 1 [facility] mg/24 hr 2-23 } Patch to ity of patch 00:00: area(s) [place] 00 every 24 Medical (twenty-fo Branch ur) hours. Apply 21mg patch daily x 6 weeks; then apply 14mf patch daily x 2 weeks; then apply 7mg patch daily x 2 weeks. Stop smoking on initiation of therapy nicotine Yes [id number] 1{patch Apply 1 [facility] mg/24 hr 2-23 } Patch to ity of patch 00:00: area(s) [place] 00 every 24 Medical (twenty-fo Branch ur) hours. Apply 21mg patch daily x 6 weeks; then apply 14mf patch daily x 2 weeks; then apply 7mg patch daily x 2 weeks. Stop smoking on initiation of therapy nicotine Yes [id number] 1{patch Apply 1 [facility] mg/24 hr 2-23 } Patch to ity of patch 00:00: area(s) [place] 00 daily. Medical Apply 21mg Branch patch daily x 6 weeks; then apply 14mf patch daily x 2 weeks; then apply 7mg patch daily x 2 weeks. Stop smoking on initiation of therapy nicotine Yes [id number] 1{patch Apply 1 [facility] mg/24 hr 2-23 } Patch to ity of patch 00:00: area(s) [place] 00 every 24 Medical (twenty-fo Branch ur) hours. Apply 21mg patch daily x 6 weeks; then apply 14mf patch daily x 2 weeks; then apply 7mg patch daily x 2 weeks. Stop smoking on initiation of therapy nicotine Yes [id number] 1{patch Apply 1 [facility] mg/24 hr 2-23 } Patch to ity of patch 00:00: area(s) [place] 00 every 24 Medical (twenty-fo Branch ur) hours. Apply 21mg patch daily x 6 weeks; then apply 14mf patch daily x 2 weeks; then apply 7mg patch daily x 2 weeks. Stop smoking on initiation of therapy nicotine Yes [id number] 1{patch Apply 1 [facility] mg/24 hr 2-23 } Patch to ity of patch 00:00: area(s) [place] 00 daily. Medical Apply 21mg Branch patch daily x 6 weeks; then apply 14mf patch daily x 2 weeks; then apply 7mg patch daily x 2 weeks. Stop smoking on initiation of therapy nicotine Yes [id number] 1{patch Apply 1 [facility] mg/24 hr 2-23 } Patch to ity of patch 00:00: area(s) [place] 00 every 24 Medical (twenty-fo Branch ur) hours. Apply 21mg patch daily x 6 weeks; then apply 14mf patch daily x 2 weeks; then apply 7mg patch daily x 2 weeks. Stop smoking on initiation of therapy nicotine Yes [id number] 1{patch Apply 1 [facility] mg/24 hr 2-23 } Patch to ity of patch 00:00: area(s) [place] 00 every 24 Medical (twenty-fo Branch ur) hours. Apply 21mg patch daily x 6 weeks; then apply 14mf patch daily x 2 weeks; then apply 7mg patch daily x 2 weeks. Stop smoking on initiation of therapy nicotine Yes [id number] 1{patch Apply 1 [facility] mg/24 hr 2-23 } Patch to ity of patch 00:00: area(s) [place] 00 daily. Medical Apply 21mg Branch patch daily x 6 weeks; then apply 14mf patch daily x 2 weeks; then apply 7mg patch daily x 2 weeks. Stop smoking on initiation of therapy nicotine Yes [id number] 1{patch Apply 1 [facility] mg/24 hr 2-23 } Patch to ity of patch 00:00: area(s) [place] 00 every 24 Medical (twenty-fo Branch ur) hours. Apply 21mg patch daily x 6 weeks; then apply 14mf patch daily x 2 weeks; then apply 7mg patch daily x 2 weeks. Stop smoking on initiation of therapy nicotine Yes [id number] 1{patch Apply 1 [facility] mg/24 hr 2-23 } Patch to ity of patch 00:00: area(s) [place] 00 every 24 Medical (twenty-fo Branch ur) hours. Apply 21mg patch daily x 6 weeks; then apply 14mf patch daily x 2 weeks; then apply 7mg patch daily x 2 weeks. Stop smoking on initiation of therapy nicotine Yes [id number] 1{patch Apply 1 [facility] mg/24 hr 2-23 } Patch to ity of patch 00:00: area(s) [place] 00 daily. Medical Apply 21mg Branch patch daily x 6 weeks; then apply 14mf patch daily x 2 weeks; then apply 7mg patch daily x 2 weeks. Stop smoking on initiation of therapy nicotine Yes [id number] 1{patch Apply 1 [facility] mg/24 hr 2-23 } Patch to ity of patch 00:00: area(s) [place] 00 every 24 Medical (twenty-fo Branch ur) hours. Apply 21mg patch daily x 6 weeks; then apply 14mf patch daily x 2 weeks; then apply 7mg patch daily x 2 weeks. Stop smoking on initiation of therapy nicotine Yes [id number] 1{patch Apply 1 [facility] mg/24 hr 2-23 } Patch to ity of patch 00:00: area(s) [place] 00 every 24 Medical (twenty-fo Branch ur) hours. Apply 21mg patch daily x 6 weeks; then apply 14mf patch daily x 2 weeks; then apply 7mg patch daily x 2 weeks. Stop smoking on initiation of therapy nicotine Yes [id number] 1{patch Apply 1 [facility] mg/24 hr 2-23 } Patch to ity of patch 00:00: area(s) [place] 00 daily. Medical Apply 21mg Branch patch daily x 6 weeks; then apply 14mf patch daily x 2 weeks; then apply 7mg patch daily x 2 weeks. Stop smoking on initiation of therapy nicotine Yes [id number] 1{patch Apply 1 [facility] mg/24 hr 2-23 } Patch to ity of patch 00:00: area(s) [place] 00 every 24 Medical (twenty-fo Branch ur) hours. Apply 21mg patch daily x 6 weeks; then apply 14mf patch daily x 2 weeks; then apply 7mg patch daily x 2 weeks. Stop smoking on initiation of therapy nicotine Yes [id number] 1{patch Apply 1 [facility] mg/24 hr 2-23 } Patch to ity of patch 00:00: area(s) [place] 00 every 24 Medical (twenty-fo Branch ur) hours. Apply 21mg patch daily x 6 weeks; then apply 14mf patch daily x 2 weeks; then apply 7mg patch daily x 2 weeks. Stop smoking on initiation of therapy nicotine Yes [id number] 1{patch Apply 1 [facility] mg/24 hr 2-23 } Patch to ity of patch 00:00: area(s) [place] 00 daily. Medical Apply 21mg Branch patch daily x 6 weeks; then apply 14mf patch daily x 2 weeks; then apply 7mg patch daily x 2 weeks. Stop smoking on initiation of therapy nicotine Yes [id number] 1{patch Apply 1 [facility] mg/24 hr 2-23 } Patch to ity of patch 00:00: area(s) [place] 00 every 24 Medical (twenty-fo Branch ur) hours. Apply 21mg patch daily x 6 weeks; then apply 14mf patch daily x 2 weeks; then apply 7mg patch daily x 2 weeks. Stop smoking on initiation of therapy nicotine Yes [id number] 1{patch Apply 1 [facility] mg/24 hr 2-23 } Patch to ity of patch 00:00: area(s) [place] 00 every 24 Medical (twenty-fo Branch ur) hours. Apply 21mg patch daily x 6 weeks; then apply 14mf patch daily x 2 weeks; then apply 7mg patch daily x 2 weeks. Stop smoking on initiation of therapy nicotine Yes [id number] 1{patch Apply 1 [facility] mg/24 hr 2-23 } Patch to ity of patch 00:00: area(s) [place] 00 daily. Medical Apply 21mg Branch patch daily x 6 weeks; then apply 14mf patch daily x 2 weeks; then apply 7mg patch daily x 2 weeks. Stop smoking on initiation of therapy nicotine Yes [id number] 1{patch Apply 1 [facility] mg/24 hr 2-23 } Patch to ity of patch 00:00: area(s) [place] 00 every 24 Medical (twenty-fo Branch ur) hours. Apply 21mg patch daily x 6 weeks; then apply 14mf patch daily x 2 weeks; then apply 7mg patch daily x 2 weeks. Stop smoking on initiation of therapy nicotine Yes [id number] 1{patch Apply 1 [facility] mg/24 hr 2-23 } Patch to ity of patch 00:00: area(s) [place] 00 every 24 Medical (twenty-fo Branch ur) hours. Apply 21mg patch daily x 6 weeks; then apply 14mf patch daily x 2 weeks; then apply 7mg patch daily x 2 weeks. Stop smoking on initiation of therapy nicotine Yes [id number] 1{patch Apply 1 [facility] mg/24 hr 2-23 } Patch to ity of patch 00:00: area(s) [place] 00 daily. Medical Apply 21mg Branch patch daily x 6 weeks; then apply 14mf patch daily x 2 weeks; then apply 7mg patch daily x 2 weeks. Stop smoking on initiation of therapy nicotine Yes [id number] 1{patch Apply 1 [facility] mg/24 hr 2-23 } Patch to ity of patch 00:00: area(s) [place] 00 every 24 Medical (twenty-fo Branch ur) hours. Apply 21mg patch daily x 6 weeks; then apply 14mf patch daily x 2 weeks; then apply 7mg patch daily x 2 weeks. Stop smoking on initiation of therapy nicotine Yes [id number] 1{patch Apply 1 [facility] mg/24 hr 2-23 } Patch to ity of patch 00:00: area(s) [place] 00 every 24 Medical (twenty-fo Branch ur) hours. Apply 21mg patch daily x 6 weeks; then apply 14mf patch daily x 2 weeks; then apply 7mg patch daily x 2 weeks. Stop smoking on initiation of therapy nicotine Yes [id number] 1{patch Apply 1 [facility] mg/24 hr 2-23 } Patch to ity of patch 00:00: area(s) [place] 00 daily. Medical Apply 21mg Branch patch daily x 6 weeks; then apply 14mf patch daily x 2 weeks; then apply 7mg patch daily x 2 weeks. Stop smoking on initiation of therapy nicotine Yes [id number] 1{patch Apply 1 [facility] mg/24 hr 2-23 } Patch to ity of patch 00:00: area(s) [place] 00 every 24 Medical (twenty-fo Branch ur) hours. Apply 21mg patch daily x 6 weeks; then apply 14mf patch daily x 2 weeks; then apply 7mg patch daily x 2 weeks. Stop smoking on initiation of therapy nicotine Yes [id number] 1{patch Apply 1 [facility] mg/24 hr 2-23 } Patch to ity of patch 00:00: area(s) [place] 00 every 24 Medical (twenty-fo Branch ur) hours. Apply 21mg patch daily x 6 weeks; then apply 14mf patch daily x 2 weeks; then apply 7mg patch daily x 2 weeks. Stop smoking on initiation of therapy nicotine 2021- Yes [id number] 1{patch Apply 1 [facility] mg/24 hr 2-23 } Patch to ity of patch 00:00: area(s) [place] 00 daily. Medical Apply 21mg Branch patch daily x 6 weeks; then apply 14mf patch daily x 2 weeks; then apply 7mg patch daily x 2 weeks. Stop smoking on initiation of therapy nicotine Yes [id number] 1{patch Apply 1 [facility] mg/24 hr 2-23 } Patch to ity of patch 00:00: area(s) [place] 00 every 24 Medical (twenty-fo Branch ur) hours. Apply 21mg patch daily x 6 weeks; then apply 14mf patch daily x 2 weeks; then apply 7mg patch daily x 2 weeks. Stop smoking on initiation of therapy nicotine Yes [id number] 1{patch Apply 1 [facility] mg/24 hr 2-23 } Patch to ity of patch 00:00: area(s) [place] 00 every 24 Medical (twenty-fo Branch ur) hours. Apply 21mg patch daily x 6 weeks; then apply 14mf patch daily x 2 weeks; then apply 7mg patch daily x 2 weeks. Stop smoking on initiation of therapy nicotine Yes [id number] 1{patch Apply 1 [facility] mg/24 hr 2-23 } Patch to ity of patch 00:00: area(s) [place] 00 daily. Medical Apply 21mg Branch patch daily x 6 weeks; then apply 14mf patch daily x 2 weeks; then apply 7mg patch daily x 2 weeks. Stop smoking on initiation of therapy nicotine Yes [id number] 1{patch Apply 1 [facility] mg/24 hr 2-23 } Patch to ity of patch 00:00: area(s) [place] 00 every 24 Medical (twenty-fo Branch ur) hours. Apply 21mg patch daily x 6 weeks; then apply 14mf patch daily x 2 weeks; then apply 7mg patch daily x 2 weeks. Stop smoking on initiation of therapy nicotine Yes [id number] 1{patch Apply 1 [facility] mg/24 hr 2-23 } Patch to ity of patch 00:00: area(s) [place] 00 every 24 Medical (twenty-fo Branch ur) hours. Apply 21mg patch daily x 6 weeks; then apply 14mf patch daily x 2 weeks; then apply 7mg patch daily x 2 weeks. Stop smoking on initiation of therapy nicotine Yes [id number] 1{patch Apply 1 [facility] mg/24 hr 2-23 } Patch to ity of patch 00:00: area(s) [place] 00 daily. Medical Apply 21mg Branch patch daily x 6 weeks; then apply 14mf patch daily x 2 weeks; then apply 7mg patch daily x 2 weeks. Stop smoking on initiation of therapy nicotine Yes [id number] 1{patch Apply 1 [facility] mg/24 hr 2-23 } Patch to ity of patch 00:00: area(s) [place] 00 every 24 Medical (twenty-fo Branch ur) hours. Apply 21mg patch daily x 6 weeks; then apply 14mf patch daily x 2 weeks; then apply 7mg patch daily x 2 weeks. Stop smoking on initiation of therapy nicotine Yes [id number] 1{patch Apply 1 [facility] mg/24 hr 2-23 } Patch to ity of patch 00:00: area(s) [place] 00 every 24 Medical (twenty-fo Branch ur) hours. Apply 21mg patch daily x 6 weeks; then apply 14mf patch daily x 2 weeks; then apply 7mg patch daily x 2 weeks. Stop smoking on initiation of therapy nicotine Yes [id number] 1{patch Apply 1 [facility] mg/24 hr 2-23 } Patch to ity of patch 00:00: area(s) [place] 00 daily. Medical Apply 21mg Branch patch daily x 6 weeks; then apply 14mf patch daily x 2 weeks; then apply 7mg patch daily x 2 weeks. Stop smoking on initiation of therapy nicotine Yes [id number] 1{patch Apply 1 [facility] mg/24 hr 2-23 } Patch to ity of patch 00:00: area(s) [place] 00 every 24 Medical (twenty-fo Branch ur) hours. Apply 21mg patch daily x 6 weeks; then apply 14mf patch daily x 2 weeks; then apply 7mg patch daily x 2 weeks. Stop smoking on initiation of therapy nicotine Yes [id number] 1{patch Apply 1 [facility] mg/24 hr 2-23 } Patch to ity of patch 00:00: area(s) [place] 00 every 24 Medical (twenty-fo Branch ur) hours. Apply 21mg patch daily x 6 weeks; then apply 14mf patch daily x 2 weeks; then apply 7mg patch daily x 2 weeks. Stop smoking on initiation of therapy nicotine Yes [id number] 1{patch Apply 1 [facility] mg/24 hr 2-23 } Patch to ity of patch 00:00: area(s) [place] 00 daily. Medical Apply 21mg Branch patch daily x 6 weeks; then apply 14mf patch daily x 2 weeks; then apply 7mg patch daily x 2 weeks. Stop smoking on initiation of therapy nicotine Yes [id number] 1{patch Apply 1 [facility] mg/24 hr 2-23 } Patch to ity of patch 00:00: area(s) [place] 00 every 24 Medical (twenty-fo Branch ur) hours. Apply 21mg patch daily x 6 weeks; then apply 14mf patch daily x 2 weeks; then apply 7mg patch daily x 2 weeks. Stop smoking on initiation of therapy nicotine Yes [id number] 1{patch Apply 1 [facility] mg/24 hr 2-23 } Patch to ity of patch 00:00: area(s) [place] 00 every 24 Medical (twenty- Branch ur) hours. Apply 21mg patch daily x 6 weeks; then apply 14mf patch daily x 2 weeks; then apply 7mg patch daily x 2 weeks. Stop smoking on initiation of therapy nicotine Yes [id number] 1{patch Apply 1 [facility] mg/24 hr 2-23 } Patch to ity of patch 00:00: area(s) [place] 00 daily. Medical Apply 21mg Branch patch daily x 6 weeks; then apply 14mf patch daily x 2 weeks; then apply 7mg patch daily x 2 weeks. Stop smoking on initiation of therapy nicotine Yes [id number] 1{patch Apply 1 [facility] mg/24 hr 2-23 } Patch to ity of patch 00:00: area(s) [place] 00 every 24 Medical (twenty-fo Branch ur) hours. Apply 21mg patch daily x 6 weeks; then apply 14mf patch daily x 2 weeks; then apply 7mg patch daily x 2 weeks. Stop smoking on initiation of therapy nicotine Yes [id number] 1{patch Apply 1 [facility] mg/24 hr 2-23 } Patch to ity of patch 00:00: area(s) [place] 00 every 24 Medical (twenty-fo Branch ur) hours. Apply 21mg patch daily x 6 weeks; then apply 14mf patch daily x 2 weeks; then apply 7mg patch daily x 2 weeks. Stop smoking on initiation of therapy nicotine Yes [id number] 1{patch Apply 1 [facility] mg/24 hr 2-23 } Patch to ity of patch 00:00: area(s) [place] 00 daily. Medical Apply 21mg Branch patch daily x 6 weeks; then apply 14mf patch daily x 2 weeks; then apply 7mg patch daily x 2 weeks. Stop smoking on initiation of therapy nicotine Yes [id number] 1{patch Apply 1 [facility] mg/24 hr 2-23 } Patch to ity of patch 00:00: area(s) [place] 00 every 24 Medical (twenty-fo Branch ur) hours. Apply 21mg patch daily x 6 weeks; then apply 14mf patch daily x 2 weeks; then apply 7mg patch daily x 2 weeks. Stop smoking on initiation of therapy nicotine Yes [id number] 1{patch Apply 1 [facility] mg/24 hr 2-23 } Patch to ity of patch 00:00: area(s) [place] 00 every 24 Medical (twenty-fo Branch ur) hours. Apply 21mg patch daily x 6 weeks; then apply 14mf patch daily x 2 weeks; then apply 7mg patch daily x 2 weeks. Stop smoking on initiation of therapy nicotine Yes [id number] 1{patch Apply 1 [facility] mg/24 hr 2-23 } Patch to ity of patch 00:00: area(s) [place] 00 daily. Medical Apply 21mg Branch patch daily x 6 weeks; then apply 14mf patch daily x 2 weeks; then apply 7mg patch daily x 2 weeks. Stop smoking on initiation of therapy nicotine Yes [id number] 1{patch Apply 1 [facility] mg/24 hr 2-23 } Patch to ity of patch 00:00: area(s) [place] 00 every 24 Medical (twenty-fo Branch ur) hours. Apply 21mg patch daily x 6 weeks; then apply 14mf patch daily x 2 weeks; then apply 7mg patch daily x 2 weeks. Stop smoking on initiation of therapy clopidogreL 2022-0 Yes [id number] 75mg Take 1 Univers 75 mg 2-07 tablet by ity of tablet 00:00: mouth [place] 00 daily. Medical Branch clopidogreL 2022-0 Yes [id number] 75mg Take 1 [facility] 75 mg 2-07 tablet by ity of tablet 00:00: mouth [place] 00 daily. Medical Branch clopidogreL 2022-0 Yes [id number] 75mg Take 1 [facility] 75 mg 2-07 tablet by ity of tablet 00:00: mouth [place] 00 daily. Medical Branch clopidogreL 2022-0 Yes [id number] 75mg Take 1 [facility] 75 mg 2-07 tablet by ity of tablet 00:00: mouth [place] 00 daily. Medical Branch clopidogreL 2022-0 Yes [id number] 75mg Take 1 [facility] 75 mg 2-07 tablet by ity of tablet 00:00: mouth [place] 00 daily. Medical Branch clopidogreL 2022-0 Yes [id number] 75mg Take 1 [facility] 75 mg 2-07 tablet by ity of tablet 00:00: mouth [place] 00 daily. Medical Branch clopidogreL 2022-0 Yes [id number] 75mg Take 1 [facility] 75 mg 2-07 tablet by ity of tablet 00:00: mouth [place] 00 daily. Medical Branch clopidogreL 2022-0 Yes [id number] 75mg Take 1 [facility] 75 mg 2-07 tablet by ity of tablet 00:00: mouth [place] 00 daily. Medical Branch clopidogreL 2022-0 Yes [id number] 75mg Take 1 [facility] 75 mg 2-07 tablet by ity of tablet 00:00: mouth [place] 00 daily. Medical Branch clopidogreL 2022-0 Yes [id number] 75mg Take 1 [facility] 75 mg 2-07 tablet by ity of tablet 00:00: mouth [place] 00 daily. Medical Branch clopidogreL 2022-0 Yes [id number] 75mg Take 1 [facility] 75 mg 2-07 tablet by ity of tablet 00:00: mouth [place] 00 daily. Medical Branch clopidogreL 2022-0 Yes [id number] 75mg Take 1 [facility] 75 mg 2-07 tablet by ity of tablet 00:00: mouth [place] 00 daily. Medical Branch clopidogreL 2022-0 Yes [id number] 75mg Take 1 [facility] 75 mg 2-07 tablet by ity of tablet 00:00: mouth [place] 00 daily. Medical Branch clopidogreL 2022-0 Yes [id number] 75mg Take 1 [facility] 75 mg 2-07 tablet by ity of tablet 00:00: mouth [place] 00 daily. Medical Branch clopidogreL 2022-0 Yes [id number] 75mg Take 1 [facility] 75 mg 2-07 tablet by ity of tablet 00:00: mouth [place] 00 daily. Medical Branch clopidogreL 2022-0 Yes [id number] 75mg Take 1 [facility] 75 mg 2-07 tablet by ity of tablet 00:00: mouth [place] 00 daily. Medical Branch clopidogreL 2022-0 Yes [id number] 75mg Take 1 [facility] 75 mg 2-07 tablet by ity of tablet 00:00: mouth [place] 00 daily. Medical Branch clopidogreL 2022-0 Yes [id number] 75mg Take 1 [facility] 75 mg 2-07 tablet by ity of tablet 00:00: mouth [place] 00 daily. Medical Branch risperiDONE 2021-0 Yes 1mg Take 1 mg U nivers 1 mg tablet 9-15 by mouth 3 it y of 00:00: (three) [place] 00 times Medical daily. Branch risperiDONE 2021-0 Yes 1mg Take 1 mg U nivers 1 mg tablet 9-15 by mouth 3 it y of 00:00: (three) [place] 00 times Medical daily. Branch risperiDONE 2021-0 Yes 1mg Take 1 mg U nivers 1 mg tablet 9-15 by mouth 3 it y of 00:00: (three) [place] 00 times Medical daily. Branch risperiDONE 2021-0 Yes 1mg Take 1 mg U nivers 1 mg tablet 9-15 by mouth 3 it y of 00:00: (three) [place] 00 times Medical daily. Branch risperiDONE 2021-0 Yes 1mg Take 1 mg U nivers 1 mg tablet 9-15 by mouth 3 it y of 00:00: (three) [place] 00 times Medical daily. Branch risperiDONE 2021-0 Yes 1mg Take 1 mg U nivers 1 mg tablet 9-15 by mouth 3 it y of 00:00: (three) [place] 00 times Medical daily. Branch risperiDONE 2021-0 Yes 1mg Take 1 mg U nivers 1 mg tablet 9-15 by mouth 3 it y of 00:00: (three) [place] 00 times Medical daily. Branch risperiDONE 2021-0 Yes 1mg Take 1 mg U nivers [...] 00 times Medical daily. Branch Flonase Flonase 2019-0 Yes Na Gomes 2 spray in Common 8-07 each [facility] 00:00: nostril - [facility] 00 [facility] amlodipine amlodipine No 1 Q1D amlodipine Dispatc 2.5 mg 2.5 mg 2.5 mg h tablet Take tablet Take tablet Health 1 tablet 1 tablet Take 1 every day every day tablet by oral by oral every day route as route as by oral directed directed route as for 30 for 30 directed days. days. for 30 days. atorvastati atorvastati No atorvastat Dispatc n 80 mg n 80 mg in 80 mg h tablet GIVE tablet GIVE tablet Health 1 TABLET 1 TABLET GIVE 1 THROUGH THROUGH TABLET ENTERAL ENTERAL THROUGH TUBE AT TUBE AT ENTERAL BEDTIME BEDTIME TUBE AT BEDTIME carvedilol carvedilol No 1 BID carvedilol Dispatc 3.125 mg 3.125 mg 3.125 mg h tablet Take tablet Take tablet Health 1 tablet 1 tablet Take 1 twice a day twice a day tablet by oral by oral twice a route as route as day by directed directed oral route for 30 for 30 as days. days. directed for 30 days. diclofenac diclofenac No diclofenac Dispatc sodium 75 sodium 75 sodium 75 h mg mg mg Health tablet,ju tablet,ju tablet,del yed release yed release ayed TAKE 1 TAKE 1 release TABLET BY TABLET BY TAKE 1 MOUTH TWICE MOUTH TWICE TABLET BY DAILY WITH DAILY WITH MOUTH MEALS MEALS TWICE DAILY WITH MEALS duloxetine duloxetine No duloxetine Dispatc 20 mg 20 mg 20 mg h capsule,del capsule,del capsule,de Health ayed ayed layed release release release TAKE 1 TAKE 1 TAKE 1 CAPSULE BY CAPSULE BY CAPSULE BY MOUTH EVERY MOUTH EVERY MOUTH NIGHT NIGHT EVERY NIGHT duloxetine duloxetine No duloxetine Dispatc 30 mg 30 mg 30 mg h capsule,del capsule,del capsule,de Health ayed ayed layed release release release TAKE 1 TAKE 1 TAKE 1 CAPSULE BY CAPSULE BY CAPSULE BY MOUTH AT MOUTH AT MOUTH AT BEDTIME BEDTIME BEDTIME gabapentin gabapentin No gabapentin Dispatc 400 mg 400 mg 400 mg h capsule capsule capsule Health TAKE 1 TAKE 1 TAKE 1 CAPSULE BY CAPSULE BY CAPSULE BY MOUTH THREE MOUTH THREE MOUTH TIMES DAILY TIMES DAILY THREE NEEDED NEEDED TIMES DAILY NEEDED mirtazapine mirtazapine No mirtazapin Dispatc 30 mg 30 mg e 30 mg h tablet TAKE tablet TAKE tablet Health 1 TABLET BY 1 TABLET BY TAKE 1 MOUTH EVERY MOUTH EVERY TABLET BY NIGHT NIGHT MOUTH EVERY NIGHT risperidone risperidone No risperidon Dispatc 1 mg tablet 1 mg tablet e 1 mg h TAKE 1 TAKE 1 tablet Health TABLET BY TABLET BY TAKE 1 MOUTH THREE MOUTH THREE TABLET BY TIMES DAILY TIMES DAILY MOUTH THREE TIMES DAILY tizanidine tizanidine No tizanidine Dispatc 2 mg tablet 2 mg tablet 2 mg h TAKE 1 TAKE 1 tablet Health TABLET BY TABLET BY TAKE 1 MOUTH EVERY MOUTH EVERY TABLET BY 8 HOURS 8 HOURS MOUTH NEEDED FOR NEEDED FOR EVERY 8 MUSCLE MUSCLE HOURS SPASMS SPASMS NEEDED FOR MUSCLE SPASMS tramadol tramadol No tramadol Dis patc 100 mg 100 mg 100 mg h tablet TAKE tablet TAKE tablet Health 1 TABLET BY 1 TABLET BY TAKE 1 MOUTH THREE MOUTH THREE TABLET BY TIMES DAILY TIMES DAILY MOUTH NEEDED NEEDED THREE FOR SEVERE FOR SEVERE TIMES PAIN PAIN DAILY NEEDED FOR SEVERE PAIN trazodone trazodone No trazodone Dispatc 100 mg 100 mg 100 mg h tablet TAKE tablet TAKE tablet Health 1 AND 1/2 1 AND 1/2 TAKE 1 AND TABLETS BY TABLETS BY 1/2 MOUTH EVERY MOUTH EVERY TABLETS BY NIGHT NIGHT MOUTH EVERY NIGHT Immunizations Ordered Filled Immunization Date Status Comments [facility] e Immunization Name Name SARS-COV-2 COVID-19 2021-05-30 Completed Unive rsity of MODERNA 12+ YRS 00:00:00 [place] Med ical VACCINE Branch SARS-COV-2 COVID-19 2021-05-30 Completed Unive rsity of MODERNA 12+ YRS 00:00:00 [place] Med ical VACCINE Branch SARS-COV-2 COVID-19 2021-05-30 Completed Unive rsity of MODERNA 12+ YRS 00:00:00 [place] Med ical VACCINE Branch SARS-COV-2 COVID-19 2021-05-30 Completed Unive rsity of MODERNA 12+ YRS 00:00:00 [place] Med ical VACCINE Branch SARS-COV-2 COVID-19 2021-05-30 Completed Unive rsity of MODERNA 12+ YRS 00:00:00 [place] Med ical VACCINE Branch SARS-COV-2 COVID-19 2021-05-30 Completed Unive rsity of MODERNA 12+ YRS 00:00:00 [place] Med ical VACCINE Branch SARS-COV-2 COVID-19 2021-05-30 Completed Unive rsity of MODERNA 12+ YRS 00:00:00 [place] Med ical VACCINE Branch SARS-COV-2 COVID-19 2021-05-30 Completed Unive rsity of MODERNA 12+ YRS 00:00:00 [place] Med ical VACCINE Branch SARS-COV-2 COVID-19 2021-05-30 Completed Unive rsity of MODERNA 12+ YRS 00:00:00 [place] Med ical VACCINE Branch SARS-COV-2 COVID-19 2021-05-30 Completed Unive rsity of MODERNA 12+ YRS 00:00:00 [place] Med ical VACCINE Branch SARS-COV-2 COVID-19 2021-05-30 Completed Unive rsity of MODERNA 12+ YRS 00:00:00 [place] Med ical VACCINE Branch SARS-COV-2 COVID-19 2021-05-30 Completed Unive rsity of MODERNA 12+ YRS 00:00:00 [place] Med ical VACCINE Branch SARS-COV-2 COVID-19 2021-05-30 Completed Unive rsity of MODERNA 12+ YRS 00:00:00 [place] Med ical VACCINE Branch SARS-COV-2 COVID-19 2021-05-30 Completed Unive rsity of MODERNA 12+ YRS 00:00:00 [place] Med ical VACCINE Branch SARS-COV-2 COVID-19 2021-05-30 Completed Unive rsity of MODERNA 12+ YRS 00:00:00 [place] Med ical VACCINE Branch SARS-COV-2 COVID-19 2021-05-30 Completed Unive rsity of MODERNA 12+ YRS 00:00:00 [place] Med ical VACCINE Branch SARS-COV-2 COVID-19 2021-05-30 Completed Unive rsity of MODERNA 12+ YRS 00:00:00 [place] Med ical VACCINE Branch SARS-COV-2 COVID-19 2021-05-30 [...] Unive rsity of MODERNA 12+ YRS 00:00:00 [facility] ical VACCINE Branch Vital Signs Vital Name Observation Time Observation Value Comments Source Systolic blood 2022-06-15 20:18:00 137 mm[Hg] Univer sity of pressure [facility] Diastolic blood 2022-06-15 20:18:00 86 mm[Hg] Unive rsity of pressure [facility] Heart rate 2022-06-15 20:18:00 88 /min [facility] Respiratory rate 2022-06-15 20:18:00 18 /[facility] 2022-06-15 20:18:00 77.111 kg [facility] BMI 2022-06-15 20:18:00 23.71 kg/m2 [facility] Oxygen saturation in 2022-06-15 20:18:00 96 /min [facility] Arterial blood by [facility] Pulse oximetry Branch Systolic blood 2022-06-15 20:18:00 137 mm[Hg] Univer sity of pressure [facility] Diastolic blood 2022-06-15 20:18:00 86 mm[Hg] Unive rsity of pressure [facility] Heart rate 2022-06-15 20:18:00 88 /min [facility] Respiratory rate 2022-06-15 20:18:00 18 /min [facility] Body weight 2022-06-15 20:18:00 77.111 kg [facility] BMI 2022-06-15 20:18:00 23.71 kg/m2 [facility] Oxygen saturation in 2022-06-15 20:18:00 96 /min University Arterial blood by [facility] Pulse oximetry Branch HEIGHT 2022-04-09 20:00:00 180.3 cm WEIGHT 2022-04-09 20:00:00 80.65 kg HEIGHT 2022-04-09 20:00:00 180.3 cm WEIGHT 2022-04-09 20:00:00 80.65 kg HEIGHT 2022-04-09 20:00:00 180.3 cm WEIGHT 2022-04-09 20:00:00 80.65 kg BP Diastolic 2022-02-09 00:00:00 86 mm[Hg] [facility] BP Systolic 2022-02-09 00:00:00 132 mm[Hg] [facility] Systolic blood 2022-04-11 07:17:00 138 mm[Hg] [facility] Diastolic blood 2022-04-11 07:17:00 69 mm[Hg] [facility] Heart rate 2022-04-11 07:17:00 81 /min [facility] Body temperature 2022-04-11 07:17:00 36.28 Terri [facility] Heart Respiratory rate 2022-04-11 07:17:00 18 /min [facility] Heart Oxygen saturation in 2022-04-11 07:17:00 95 /min [facility] Arterial blood by Medical nter Pulse oximetry Body height 2022-04-09 20:00:00 180.3 cm [facility] Body weight 2022-04-09 20:00:00 80.65 kg [facility] BMI 2022-04-09 20:00:00 24.80 kg/m2 [facility] Procedures Procedure Date / Time Performing Source Performed Clinician HOME HEALTH - OTHER 2022-08-03 [facility] o f 05:01:00 Unassigned, No [facility] HEALTH - OTHER 2022-07-22 [facility] o f 05:01:00 Unassigned, No [facility] - OTHER 2022-06-28 [facility] o f 05:01:00 Unassigned, No [facility] HOME HEALTH - OTHER 2022-06-22 [facility] o f 05:01:00 Unassigned, No [facility] HOME HEALTH - OTHER 2022-05-03 [facility] o f 05:01:00 Unassigned, No [facility] HOME HEALTH - OTHER 2022-04-23 [facility] o f 05:01:00 Unassigned, No [facility] PREPARE LEUKO-REDUCED RBC 2022-04-[address] [facility] 23:54:00 [facility] BASIC METABOLIC PANEL (7) 2022-04-11 Breann, Otoniel [facility] 03:48:00 [facility] HEPATIC FUNCTION PANEL 2022-04-11 Breann Otoniel [facility] 03:48:00 [facility] CBC W/PLT COUNT & AUTO 2022-04-11 Breann, Otoniel [facility] DIFFERENTIAL 03:48:00 [facility] CBC W/PLT COUNT & AUTO 2022-04-11 BreannOtoniel diaz [facility] DIFFERENTIAL 03:48:00 [facility] REPORT OF PROCEDURE - ENDOSCOPY 2022-04-[address] [facility] URL 12:42:42 [facility] ESOPHAGOGASTRODUODENOSCOPY 2022-04-10 [facility] 12:33:00 [facility] TRANSFUSE LEUKO-REDUCED RED BLOOD 2022-04-[address] [facility] CELLS 07:00:00 [facility] BASIC METABOLIC PANEL (7) 2022-04-10 Breann, Otoniel [facility] 04:54:00 [facility] HEPATIC FUNCTION PANEL 2022-04-10 Breann, Otoniel [facility] 04:54:00 [facility] CBC W/PLT COUNT & AUTO 2022-04-10 Breann, Otoniel [facility] DIFFERENTIAL 04:54:00 [facility] CBC W/PLT COUNT & AUTO 2022-04-10 Breann, Otoniel [facility] DIFFERENTIAL 04:54:00 [facility] ABORH, MANUAL 2022-04-10 Helekar, Gia [facility] 01:23:[address] [facility] [address] BRAIN WITHOUT IV CONTRAST 2022-04-09 Breann, Otoniel [facility] 23:05:00 [facility] BASIC METABOLIC PANEL (7) 2022-04-09 Breann, Otoniel [facility] 22:27:00 [facility] HEPATIC FUNCTION PANEL 2022-04-09 Breann, Otoniel [facility] 22:27:00 [facility] MAGNESIUM 2022-04-09 Breann, Otoniel [facility] 22:27:00 [facility] PHOSPHORUS 2022-04-09 Breann, Otoniel [facility] 22:27:00 [facility] PROTHROMBIN TIME/INR 2022-04-09 Breann, Otoniel [facility] 22:27:00 [facility] CBC W/PLT COUNT & AUTO 2022-04-09 Breann, [facility] DIFFERENTIAL 22:27:00 [facility] TYPE AND SCREEN, AUTOMATED 2022-04-09 Breann, Otoniel [facility] 22:27:00 [facility] CBC W/PLT COUNT & AUTO 2022-04-09 Breann, Otoniel [facility] DIFFERENTIAL 22:27:00 [facility] [id number] 2020-10-30 SPANI [facility] 00:00:00 Medical Center [id number] 2020-01-28 WEAMA.02 [facility] 00:00:00 [facility] Medical Center [id number] 2020-01-28 WEAMA.02 [facility] 00:00:00 [facility] Medical Center [id number] 2020-01-28 WEAMA.02 [facility] 00:00:00 [facility] Medical Center [id number] 2020-01-28 WEAMA.02 [facility] 00:00:00 [facility] Medical Center [id number] 2020-01-28 WEAMA.02 [facility] 00:00:00 [facility] Knee Arthroscopy/surgery Dispatc h Health Plan of Care Planned Activity Planned Date Details Comments Source Future Scheduled Test 2022-06-17 INFLUENZA VACCINE (#1) [facility] 00:00:00 [code = INFLUENZA Medical Ce nter VACCINE (#1)] Future Scheduled Test 2022-06-17 INFLUENZA VACCINE (#1) [facility] 00:00:00 [code = INFLUENZA Medical Ce nter VACCINE (#1)] Future Scheduled Test 2021-10-[address] [facility] 00:00:00 (12+) [code = Medical Center DEPRESSION SCREENING (12+)] Future Scheduled Test 2021-10-17 Medicare IPPE (WELCOME [facility] 00:00:00 TO MEDICARE) [code = Medical Center Medicare IPPE (WELCOME TO MEDICARE)] Future Scheduled Test 2021-10-[address] [facility] 00:00:00 (12+) [code = Medical Center DEPRESSION SCREENING (12+)] Future Scheduled Test 2021-10-17 Medicare IPPE (WELCOME [facility] 00:00:00 TO MEDICARE) [code = Medical Center Medicare IPPE (WELCOME TO MEDICARE)] Future Scheduled Test 2012 SHINGLES VACCINES ([address] [facility] 00:00:00 of 2) [code = SHINGLES Medic al Center VACCINES (1 of 2)] Future Scheduled Test 2012 SHINGLES VACCINES ([address] [facility] 00:00:00 of 2) [code = SHINGLES Medic al Center VACCINES (1 of 2)] Future Scheduled Test [address] [facility] 00:00:00 (procedure) [code = Medical Center [id number]] Future Scheduled Test [address] [facility] 00:00:00 (procedure) [code = [facility] [id number]] Future Scheduled Test 1981 DTAP/TDAP/TD VACCINES [facility] 00:00:00 (1 - Tdap) [code = Medical C enter DTAP/TDAP/TD VACCINES (1 - Tdap)] Future Scheduled Test 1981 DTAP/TDAP/TD VACCINES [facility] 00:00:00 (1 - Tdap) [code = Medical C enter DTAP/TDAP/TD VACCINES (1 - Tdap)] Future Scheduled Test 1980 HEPATITIS C SCREENING [facility] 00:00:00 [code = HEPATITIS C Medical Center SCREENING] Future Scheduled Test 1980 HEPATITIS C SCREENING [facility] 00:00:00 [code = HEPATITIS C Medical Center SCREENING] Future Scheduled Test [address] [facility] 00:00:00 Counseling and Medical Cente r Screening (12+) [code = Tobacco Cessation Counseling and Screening (12+)] Future Scheduled Test 1962 COVID-19 VACCINE (#1) [facility] 00:00:00 [code = COVID-[address] VACCINE (#1)] Future Scheduled Test 1962 COVID-19 VACCINE (#1) [facility] 00:00:00 [code = COVID-[address] VACCINE (#1)] Future Scheduled Test [address] [facility] 00:00:00 (combo) [code = CT Medical C enter Colonography (combo)] Future Scheduled Test 1962 [facility] malignant neoplasm of Medica l Center colon (procedure) [code = 696820394] Future Scheduled Test [facility] malignant neoplasm of Medica l Center colon (procedure) [code = 068531823] Future Scheduled Test [facility] malignant neoplasm of Medica l Center colon (procedure) [code = [id number]] Future Scheduled Test [facility] malignant neoplasm of Medica l Center colon (procedure) [code = 425080866] Future Scheduled Test 1962 Sigmoidoscopy [code = [facility] 00:00:00 Sigmoidoscopy] Medical Cente r Future Scheduled Test [address] [facility] 00:00:00 (combo) [code = CT Medical C enter Colonography (combo)] Future Scheduled Test 1962 [facility]:00 malignant neoplasm of Medica l Center colon (procedure) [code = 971684601] Future Scheduled Test [facility]:00 malignant neoplasm of Medica l Center colon (procedure) [code = 873382141] Future Scheduled Test [facility]:00 malignant neoplasm of Medica l Center colon (procedure) [code = 906817877] Future Scheduled Test 1962 Screening for HERIBERTO Servin 00:00:00 malignant neoplasm of [facility] colon (procedure) [code = 666171644] Future Scheduled Test 1962 Sigmoidoscopy [code = [facility] 00:00:00 Sigmoidoscopy] Medical Nicolette garcia Future Scheduled Test COLON CANCER [facility] SCREENING: COLONOSCOPY Medic ine [code = COLON CANCER SCREENING: COLONOSCOPY] Future Scheduled Test MEDICARE AWV [code = [employer] MEDICARE AWV] Medicine Future Scheduled Test TETANUS SHOT (ADULT) [facility] [code = TETANUS SHOT Medicin e (ADULT)] Future Scheduled Test HEPATITIS C SCREENING [facility] [code = HEPATITIS C Medicine SCREENING] Future Scheduled Test HIV SCREENING [code = [facility] HIV SCREENING] Medicine Future Scheduled Test FLU VACCINE > 6 MONTHS [facility] [code = FLU VACCINE > Medici ne 6 MONTHS] Instructions [facility] Encounters Start End Encounter Admission Attending Care Care Encounter Source Date/Time Date/Time Type Type Clinicians Facility Department ID 2022-10-16 Outpatient [id number] [facility] 15:33:54 [id number] [place] [id number] 2022-10-07 Outpatient [facility] [id number] [place] 13:56:04 [id number] [facility] 2022-06-29 Outpatient [facility] [id number] [place] 06:43:25 [id number] [facility] 2022-06-28 [facility] [id number] [facility] 00:00:00 Encounter [facility] 2022-06-23 Outpatient [facility] [id number] [place] 06:55:39 [id number] [facility] 2022-06-17 Outpatient [facility] [id number] [place] 15:06:08 [id number] [facility] 2022-06-15 Outpatient [facility] [id number] [place] 03:04:43 [id number] [facility] 2022-06-14 Outpatient [facility] [id number] [place] 12:31:39 [id number] [facility] 2022-04-23 Outpatient [place], [facility] [id number] [place] 02:50:32 MARIA VICTORIA [id number] [facility] 2022-04-22 Outpatient [facility] [id number] [place] 10:56:19 [id number] [facility] 2022-04-20 Outpatient [place], [facility] [id number] [place] 02:10:13 MARIA VICTORIA [id number] [facility] 2022-01-25 Outpatient [facility] [id number] [place] 11:56:[id number] [place] [address] 2022-01-19 Outpatient [place], [facility] [id number] [place] 03:16:47 MARIA VICTORIA [id number] [facility] 2022-01-18 Outpatient [facility] [id number] [place] 12:57:31 [id number] [facility] 2022-01-01 Outpatient [place], [facility] [id number] [place] 15:24:56 [facility] 2021-11-13 Outpatient [facility] [id number] [place] 15:22:56 [facility] 2021-11-12 Outpatient 3 [id number] ENC[facility] CVA [facility] 10:42:58 [facility] [facility] 2021-11-12 Outpatient 3 [id number] ENCPL REF [facility] 10:40:46 0927 [facility] [place] 2021-11-11 Outpatient Gomes, Na STLMLC STLMLC [id number] 2 Common 11:17:41 [id number] [facility] 2021-11-11 Outpatient Gomes, Na STLMLC STLMLC [id number] Common 11:00:18 [id number] [facility] 2021-11-11 Outpatient Gomes, Na STLMLC STLMLC [id number] 2 Common 11:00:09 33137 [facility] 2021-08-16 Emergency [facility] [id number] Univers 23:22:07 ity [facility] 2021-08-16 Emergency [facility] [id number] [facility] Emergency [facility] [id number] Univers 23:38:22 ity [facility] 2021-08-15 Emergency [facility] [id number] Univers 15:04:08 ity of [facility] 2021-08-15 Emergency [facility] [id number] Univers 04:16:09 ity of [facility] 2021-08-14 Emergency [facility] [id number] Univers 18:54:20 ity of [facility] 2021-08-14 Emergency [facility] [id number] Univers 13:29:29 ity of [facility] 2021-08-14 Emergency [facility] [id number] Univers 10:34:33 ity of [facility] 2021-08-14 Emergency [facility] [id number] Univers 08:51:36 ity of [facility] 2021-08-14 Emergency [facility] [id number] Univers [facility]30 [facility] [id number] [facility] 12:19:00 69 [facility] 2020-01-25 Inpatient Mio Frances [facility] MEDI.[id number] [facility] 16:41:00 41 [facility] 2022-10-29 2022-10-29 [facility] [id number] Univers 00:00:00 00:00:00 SOLE carmen [facility] 2022-09-23 2022-09-23 [facility] [id number] Univers 14:40:00 14:40:00 SOLE carmen [facility] 2022-09-23 2022-09-23 [facility] [id number] Univers 14:40:00 14:40:00 SOLE carmen [facility] 2022-09-23 2022-09-23 [facility] [id number] Univers 14:40:00 14:40:00 SOLE abby [facility] 2022-09-16 2022-09-16 Telephone [facility] 1.2.840.114 [id number] Univers 00:00:00 00:00:00 Sole HANSEN 350.1.13.10 i [place] [id number] Ut dic[address] 2022-09-15 2022-09-15 Case ALIYA Murray 1.2.840.114 [id number] Univers 00:00:00 00:00:00 Management Hemalatha GUSTAFSON 350.1.13.10 [place] [id number] [address] 2022-08-27 2022-08-27 Outpatient [facility] [id number] Univers 08:00:00 08:00:00 SOLE abby [facility] 2022-08-27 2022-08-27 Outpatient R [facility] [id number] Univers 08:00:00 08:00:00 SOLE abby [facility] 2022-08-03 2022-08-03 Orders Doctor GINA 1.2.840.114 [id number] Univers 00:00:00 00:00:00 Only Unassigned, FERN 350.1.13.10 ity of [place] [facility] 4.2.7.2.686 Joseph as [id number] [facility] [address] 2022-07-26 2022-07-26 Telephone [facility] 1.2.840.114 9 [id number] Univers 00:00:00 00:00:00 Sole HANSEN 350.1.13.10 i ty of [place] [id number] Ut dic[address] 2022-07-23 2022-07-23 Telephone GINA Rodriguez 1.2.003.909 [id number] Univers 00:00:00 00:00:00 Kayleen SHIRLEY 350.1.13.10 ity of HOSPITAL 4.2.7.2.686 Joseph as [id number] [facility] [address] 2022-07-22 2022-07-22 Orders Doctor GINA 1.2.840.114 [id number] Univers 00:00:00 00:00:00 Only Unassigned, FERN 350.1.13.10 ity of [place] [facility] 4.2.7.2.686 Joseph as [id number] [address] 2022-07-20 2022-07-20 Telephone [facility] 1.2.840.114 [id number] Univers 00:00:00 00:00:00 Sole HANSEN 350.1.13.10 i ty of [place] [id number] [address] 2022-07-13 2022-07-13 Outpatient Jeannine MENDES [facility] [id number] Univers 10:00:00 10:00:00 JAMES ity [facility] 2022-07-06 2022-07-06 Patient [facility] 1.2.840.114 [id number] Univers 00:00:00 00:00:00 Outreach Lupis HANSEN 350.1.13.10 it[place] of [place] [id number] [address] 2022-06-29 2022-06-29 Orders Doctor GINA 1.2.840.114 [id number] Univers 00:00:00 00:00:00 Only Unassigned, FERN 350.1.13.10 ity of [place] [facility] 4.2.7.2.686 Joseph as [id number] [address] 2022-06-28 2022-06-28 Telephone [facility] 1.2.840.114 9 [id number] Univers 00:00:00 00:00:00 Sole HANSEN 350.1.13.10 i ty [place] [id number] [address] 2022-06-28 2022-06-28 Orders Doctor GINA 1.2.840.114 [id number] Univers 00:00:00 00:00:00 Only Unassigned, FERN 350.1.13.10 ity of [place] [facility] 4.2.7.2.686 Joseph as [id number] [address] 2022-06-23 2022-06-23 Refill [facility] 1.2.840.114 [id number] Univers 00:00:00 00:00:00 Sole HANSEN 350.1.13.10 i ty [place] [id number] [address] 2022-06-22 2022-06-22 Outpatient R [facility] [id number] [id number] Univers 09:00:00 09:00:00 SOLE itabby [facility] 2022-06-22 2022-06-22 Telephone [facility] 1.2.840.114 9 [id number] Univers 00:00:00 00:00:00 Sole HANSEN 350.1.13.10 i ty [place] [id number] [address] 2022-06-22 2022-06-22 Orders Doctor GINA 1.2.840.114 [id number] Univers 00:00:00 00:00:00 Only Unassigned, FERN 350.1.13.10 ity of [place] [facility] 4.2.7.2.686 Joseph as [id number] [address] 2022-06-16 2022-06-16 Patient [facility] 1.2.840.114 [id number] Univers 00:00:00 00:00:00 Outreach Lupis HANSEN 350.1.13.10 it[place] of [place] [id number] [address] 2022-06-15 2022-06-15 Office [facility] 1.2.840.114 [id number] Univers 15:20:00 16:09:48 Visit Sole HANSEN 350.1.13.10 i ty [place] [id number] [address] 2022-06-15 2022-06-15 Outpatient R [facility] [id number] Univers 15:20:00 16:09:48 SOLE morales [facility] 2022-06-15 2022-06-15 Office [facility] 1.2.840.114 [id number] Univers 15:20:00 16:09:48 Visit Sole JULIFRANKIE 350.1.13.10 i ty [facility] 4.2.7.2.[place] [id number] Ut dical NAL 044 [facility] 2022-06-15 2022-06-15 Out[facility] 104 [id number] Univers 15:20:00 16:09:48 SOLE [facility] 2022-06-15 2022-06-15 Outpatient R [facility]ANIAGEOFFREYARCENI[facility] 104 [id number] Univers 15:20:00 15:20:00 SOLE [facility] 2022-06-15 2022-06-15 Outpatient R [facility] 104 [id number] Univers 15:20:00 15:20:00 SOLE [facility] 2022-06-15 2022-06-15 [facility] 1040 [id number] Univers 15:20:00 15:20:00 SOLE [facility] 2022-06-10 2022-06-12 Outpatient Elayne CAMARENA [facility] [id number] [facility] 14:17:00 17:41:00 SUMEET 2022-06-10 2022-06-10 Outpatient ANTONELLA [facility] [id number] [facility] 11:09:00 23:59:00 ONELIA 2022-06-10 2022-06-10 Outpatient R SUHA-SANTOS [facility] [id number] Univers 10:40:00 10:40:00 carmen COSBY [facility] 2022-06-09 2022-06-09 Orders Doctor GINA 1.2.840.114 [id number] Univers 00:00:00 00:00:00 Only Unassigned, FERN 350.1.13.10 ity of [place] [facility] 4.2.7.2.686 Joseph as [id number] [address] 2022-06-08 2022-06-08 [facility] [id number] [id number] Univers 11:02:05 23:59:00 SOLE morales of [facility] 2022-06-08 2022-06-08 Hospital [facility] 1.2.840.114 [id number] Univers 11:02:05 23:59:00 Encounter Sole JULIFRANKIE 350.1.13.10 it[place] [id number] [facility] [address] 2022-06-08 2022-06-08 Outpatient R [facility] 1041 [id number] Univers 11:02:05 23:59:00 SOLE morales [facility] 2022-06-08 2022-06-08 Telephone [facility] 1.2.840.114 9 [id number] Univers 00:00:00 00:00:00 Sole HANSEN 350.1.13.10 i ty of [place] [id number] [address] 2022-06-03 2022-06-03 Orders Doctor GINA 1.2.840.114 [id number] Univers 00:00:00 00:00:00 Only Unassigned, FERN 350.1.13.10 ity of [place] [facility] 4.2.7.2.686 Joseph as [id number] [facility] [address] 2022-05-28 2022-05-28 Outpatient R [facility] 1041 [id number] Univers 14:20:00 14:57:59 SOLE morales [facility] 2022-05-28 2022-05-28 Office [facility] 1.2.840.114 [id number] Univers 14:20:00 14:57:59 Visit Sole HANSEN 350.1.13.10 i ty [place].2.[place] [id number] Ut dic[address] 2022-05-25 2022-05-25 Telephone [facility] 1.2.840.114 9 [id number] Univers 00:00:00 00:00:00 Sole ROBERTO 350.1.13.10 it y of [place] 4.2.7.2.686 Joseph as RAJ?BLEA [id number] Ut dical KNEY [address] MEDICAL OFFICE BUILDING 2022-05-20 2022-05-22 Inpatient Emergency Jarad [facility] [id number] [facility] 23:02:00 16:15:00 [facility] 49 2022-05-21 2022-05-21 Orders Doctor GINA 1.2.840.114 [id number] Univers 00:00:00 00:00:00 Only Unassigned, FERN 350.1.13.10 ity of [facility] 4.2.7.2.686 Joseph as [id number] [address] 2022-05-20 2022-05-20 Inpatient Emergency Jarad [facility] [id number] [facility] 23:02:00 16:26:00 [facility] Service 49 2022-05-19 2022-05-19 Outpatient R [facility] 1041 [id number] Univers 11:00:00 11:00:00 SOLE morales [facility] 2022-05-15 2022-05-15 Refill [facility] 1.2.840.114 [id number] Univers 00:00:00 00:00:00 Sole HANSEN 350.1.13.10 i ty [place] [id number] Ut dical NAL [facility] 2022-05-11 2022-05-11 Orders Doctor GINA 1.2.840.114 [id number] Univers 00:00:00 00:00:00 Only Unassigned, FERN 350.1.13.10 ity of [facility] 4.2.7.2.686 Joseph as [id number] [facility] [address] 2022-05-11 2022-05-11 Telephone [facility] 1.2.840.114 9 [id number] Univers 00:00:00 00:00:00 Sole HANSEN 350.1.13.10 i ty [facility] 4.2.7.2.686 [place] [id number] Ut dical NAL [address] [facility] 2022-05-032022-05-03 Outpatient R PIERO, [facility] [id number] Univers 10:30:00 10:30:00 RANDEE morales [facility] 2022-05-03 2022-05-03 Telephone Laura [facility] 1.2.840.114 9 [id number] Univers 00:00:00 00:00:00 Sole HANSEN 350.1.13.10 i ty of [facility] 4.2.7.2.686 [place] [id number] Ut dical RUEL [address] BUILDING 2022-05-03 2022-05-03 Orders Doctor GINA 1.2.840.114 [id number] Univers 00:00:00 00:00:00 Only Unassigned, FERN 350.1.13.10 ity of [place] [facility] 4.2.7.2.686 Joseph as [id number] [address] 2022-04-29 2022-04-29 Outpatient R EVERTONSteffi, [facility] [id number] Univers 12:30:00 13:00:19 [facility] 2022-04-29 2022-04-29 Outpatient R JEOVANNYAKSteffi, [facility] [id number] Univers 12:30:00 13:00:19 [facility] 2022-04-29 2022-04-29 Outpatient R SNEHAL, [facility] [id number] Univers 12:30:00 13:00:19 [facility] 2022-04-29 2022-04-29 Nurse Nurse, [facility] 1.2.840.114 [id number] Univers 12:30:00 12:50:00 Visit Zulma Vazquez [facility] 350.1.13.10 ity of [place] 4.2.7.2.686 Joseph as RAJ?BLEA [id number] Ut dical KNEY [address] MEDICAL OFFICE BUILDING 2022-04-23 2022-04-23 Orders Doctor GINA 1.2.840.114 [id number] Univers 00:00:00 00:00:00 Only Unassigned, FERN 350.1.13.10 ity of [place] [facility] 4.2.7.2.686 Joseph as [id number] [address] 2022-04-22 2022-04-22 Outpatient R [facility] [id number] Univers 13:20:00 14:02:05 SOLE morales [facility] 2022-04-22 2022-04-22 Office [facility] 1.2.840.114 [id number] Univers 13:20:00 14:02:05 Visit Sole HANSEN 350.1.13.10 i ty of [place].2.[place] [id number] [address] 2022-04-22 2022-04-22 Outpatient R [facility] 104 [id number] Univers 13:20:00 14:02:05 SOLE morales [facility] 2022-04-22 2022-04-22 Outpatient R [facility] [id number] Univers 13:20:00 13:20:00 SOLE abby [facility] 2022-04-22 2022-04-22 Telephone [facility] 1.2.840.114 9 [id number] Univers 00:00:00 00:00:00 Sole HANSEN 350.1.13.10 i ty [place].2.[place] [id number] [address] 2022-04-22 2022-04-22 Patient [facility] 1.2.840.114 [id number] Univers 00:00:00 00:00:[address] [facility] 350.1.13.10 ity of [place] 4.2.7.2.686 Joseph as RAJ?BLEA [id number] [address] MEDICAL OFFICE BUILDING 2022-04-22 2022-04-22 Orders Doctor GINA 1.2.840.114 [id number] Univers 00:00:00 00:00:00 Only Unassigned, FERN 350.1.13.10 ity of [place] [facility] 4.2.7.2.686 Joseph as 811.7834348 [address] 2022-04-21 2022-04-21 Outpatient [email or web address] DISP DISP 618 [id number]- Dispatc 05:02:00 05:02:00 3 12369 [facility] 2022-04-21 2022-04-21 Orders Doctor GINA 1.2.840.114 [id number] Univers 00:00:00 00:00:00 Only Unassigned, FERN 350.1.13.10 ity of [place] [facility] 4.2.7.2.686 Joseph as [id number] [address] 2022-04-19 2022-04-19 Orders Doctor GINA 1.2.840.114 [id number] Univers 00:00:00 00:00:00 Only Unassigned, FERN 350.1.13.10 ity of [place] [facility] 4.2.7.2.686 Joseph as 692.2086568 [address] 2022-04-15 2022-04-15 Outpatient R [facility] 1040 [id number] Univers 08:21:09 23:59:00 SOLE ity [facility] 2022-04-15 2022-04-15 [facility] 1.2.840.114 [id number] Univers 08:21:09 23:59:00 Encounter Sole HANSEN 350.1.13.10 ity [facility] 4.2.7.2.686 [facility] [id number] [address] 2022-04-15 2022-04-15 Outpatient R [facility] 1040 [id number] Univers 08:21:09 23:59:00 PETER ity [facility] 2022-04-15 2022-04-15 Outpatient R [facility] 1040 [id number] Univers 08:21:09 23:59:00 SOLE ity [facility] 2022-04-15 2022-04-15 [facility] 1.2.840.114 [id number] Univers 08:16:19 08:20:00 Encounter Sole HANSEN 350.1.13.10 ity of [place] 4.2.7.2.686 [facility] [id number] [place] [address] [address] 2022-04-15 2022-04-15 [facility] 1040 [id number] Univers 08:15:08 08:15:08 SOLE mccrackenabby [facility] 2022-04-15 2022-04-15 [facility] 1.2.840.114 94 [id number] Univers 08:15:08 08:15:08 Encounter Sole HANSEN 350.1.13.10 ity of [place].7.2.[place] [id number] [facility] [address] 2022-04-12 2022-04-12 Telephone [facility] 1.2.840.114 9 [id number] Univers 00:00:00 00:00:00 Sole HANSEN 350.1.13.10 i ty of [facility] 4.2.7.2.686 [place] [id number] [address] 2022-04-12 2022-04-12 [facility] 1.2.840.114 [id number] Univers 00:00:00 00:00:00 Sole HANSEN 350.1.13.10 i ty of [place].2.[place] [id number] [address] 2022-04-09 2022-04-11 Hospital Norbert Rodriguez [facility] [id number] 19:43:00 11:44:00 Encounter [facility]iel Crain [facility] 2022-[facility]-09 2022-04-11 [facility] Center[facility] mendieta [facility] [id number] 19:43:00 11:44:00 Encounter Otoniel Crain Sophia [facility] 2022-04-09 2022-04-11 Inpatient ER [facility] [id number] SLSSaray 19:43:00 11:44:00 KIRA 2022-04-11 2022-04-11 Telephone [facility] 1.2.840.114 9 [id number] [facility] 00:00:00 00:00:00 Sole HANSEN 350.1.13.10 i ty of [place] 4.2.7.2.686 Josephjoo norman EL 850.1985649 [address] 2022-04-10 2022-04-10 Surgery [facility] [id number] 12:40:00 13:10:00 [facility] 2022-04-10 2022-04-10 Surgery [facility] [id number] 12:40:00 13:10:00 [facility] 2022-04-10 2022-04-10 Anesthesia Rima Leonardo Waldron [facility] [id number] 12:33:00 12:43:[address] [facility] 2022-04-10 2022-04-10 Anesthesia Leonardo Abarca [facility] [id number] 12:33:00 12:43:[address] [facility] 2022-04-10 2022-04-10 Travel [facility] [id number] [facility] 00:[facility] 00:00:00 [facility] 2022-04-10 2022-04-10 Travel [facility] [id number] [facility] 00:[facility]:00 00:00:00 [facility] 2022-04-09 2022-04-09 Telephone [facility] 1.2.840.114 [id number] [facility] 00:00:00 00:00:00 Sole HANSEN 350.1.13.10 i ty of [place] 4.2.7.2.686 Josephjoo norman EL [id number] [address] 2022-04-06 2022-04-06 [facility] [id number] UT 11:00:00 11:00:00 [facility] 2022-04-06 2022-04-06 Telephone [facility] 1.2.840.114 9 [id number] Univers 00:00:00 00:00:00 Sole HANSEN 350.1.13.10 i ty of [place].2.[place] [id number] Ut dical NAL 044 [facility] 2022-04-06 2022-04-06 Refill [facility] 1.2.840.114 [id number] Univers 00:00:00 00:00:00 [facility] 350.1.13.10 it y of [place] 4.2.7.2.686 Joseph as RAJ?BLEA [id number] Ut dicjuarez CARBONE 198 [facility] OFFICE [facility] 2022-04-06 2022-04-06 Telephone [facility] 1.2.840.114 9 [id number] Univers 00:00:00 00:00:00 Lynette HANSEN 350.1.13.10 ity of [place].2.[place] [id number] Ut dical NAL 231 [facility] 2022-04-05 2022-04-05 Telephone [facility] 1.2.840.114 9 [id number] Univers 00:00:00 00:00:00 Sole HANSEN 350.1.13.10 i ty of [place] 4.[place].2.[place] [id number] Ut dical NAL 044 [facility] 2022-04-01 2022-04-01 Telephone [facility] 1.2.840.114 [id number] Univers 00:00:00 00:00:00 Sole HANSEN 350.1.13.10 i ty [place] [phone] Ut dical NAL 044 [facility] 2022-04-01 2022-04-01 Orders Doctor FUENTES 1.2.840.114 [id number] Univers 00:00:00 00:00:00 Only Unassigned, FERN 350.1.13.10 ity of [place] [facility] 4.2.7.2.686 Joseph as [phone] [address] 2022-03-29 2022-03-29 Refill Laura [facility] 1.2.840.114 [id number] Univers 00:00:00 00:00:00 Sole HANSEN 350.1.13.10 i ty [facility] 4[place]2.[place].2.[place] [id number] Ut dical NAL 231 [facility] 2022-03-25 2022-03-25 Switch Adjuster 2, [facility] 1.2.840.114 [id number] Univers 13:00:00 13:15:00 Visit Laura Sole HANSEN 350.1.13.10 ity [facility] 4[place]2.[place].2.[place] [phone] Ut dical RUEL 353 [facility] 2022-03-25 2022-03-25 [facility] [id number] Univers 10:40:00 11:50:35 SOLE [facility] 2022-03-25 2022-03-25 Office [facility] 1.2.840.114 [id number] Univers 10:40:00 11:50:35 Visit Sole HANSEN 350.1.13.10 i ty [place] [phone] Ut dicjuarez [facility] 044 [facility] 2022-03-25 2022-03-25 [id number] Univers 10:40:00 10:40:00 SOLE [facility] 2022-03-25 2022-03-25 [facility] [id number] Univers 10:40:00 10:40:00 SOLE [facility] 2022-03-25 2022-03-25 [facility] [id number] Univers 10:40:00 10:40:00 SOLE [facility] 2022-03-25 2022-03-25 [facility] [id number] Univers 10:40:00 10:40:00 SOLE [facility] 2022-03-18 2022-03-18 [facility] [place] 1.2.840.114 [id number] Univers 00:00:00 00:00:00 Sole HANSEN 350.1.13.10 i ty of [place] [id number] [address] 2022-03-08 2022-03-08 Telephone [facility] 1.2.840.114 9 [id number] Univers 00:00:00 00:00:00 Sole HANSEN 350.1.13.10 i ty of [place] [phone] [address] 2022-03-08 2022-03-08 Telephone [facility] 1.2.840.114 [id number] [facility] [place] 00:00:00 00:00:00 Sole HANSEN 350.1.13.10 i ty of [place] [phone] [address] 2022-03-05 2022-03-05 Outpatient [id number] DISP DISP [id number] Dispatc 03:55:00 03:55:00 3 [id number] h Health 2022-03-04 2022-03-04 [facility] 1.2.840.114 [id number] [facility] 00:00:00 00:00:00 Sole HANSEN 350.1.13.10 i ty [place] [id number] [address] 2022-03-04 2022-03-04 Orders Doctor FUENTES 1.2.840.114 [id number] Univers 00:00:00 00:00:00 Only Unassigned, FERN 350.1.13.10 ity of [place] [facility] 4.2.7.2.686 Joseph as [phone] [address] 2022-03-03 2022-03-03 Outpatient [facility] 1039 [id number] Univers 16:00:00 17:08:40 SOLE morales of [facility] 2022-03-03 2022-03-03 Office [facility] [place] 1.2.840.114 [id number] Univers 16:00:00 17:08:40 Visit Sole HANSEN 350.1.13.10 i ty of [place] [phone] Ut dical NAL [address] [place] [address] 2022-02-19 2022-02-19 Emergency X [facility] ERT [id number] Univers 11:05:00 12:06:00 MARCE ity of [facility] 2022-02-19 2022-02-19 Emergency [facility] 1.2.840.114 [id number] Univers 11:05:00 12:06:00 Marce HANS[place] 350.1.13.10 it[place] [phone] [facility] [address] 2022-02-19 2022-02-19 Orders Doctor FUENTES 1.2.840.114 [id number] Univers 00:00:00 00:00:00 Only Unassigned, FERN 350.1.13.10 ity of [place] [facility] 4.2.7.2.686 Joseph as [id number] [facility] [address] 2022-02-18 2022-02-18 Orders Doctor GINA 1.2.840.114 [id number] Univers 00:00:00 00:00:00 Only Unassigned, FERN 350.1.13.10 ity of [place] [facility] 4.2.7.2.686 Joseph as [id number] [address] 2022-02-15 2022-02-15 Outpatient [id number] DISP DISP [id number] Dispatc 09:30:00 09:30:00 3 [id number] h Health 2022-02-11 2022-02-11 [facility] 1.2.840.114 [id number] Univers 00:00:00 00:00:00 Sole HANSEN 350.1.13.10 i ty [place] [id number] Ut dicco NAL [address] [place] [address] 2022-02-09 2022-02-09 Outpatient [id number] DISP DISP [id number] Dispatc 04:40:00 04:40:00 3 [id number] h Health 2022-02-09 2022-02-09 Jubril DISP CO - [id number] D ispatc 00:00:00 00:00:00 Zackjosueelayne DispatchHea h , CUSTOMS CONSULTANT: [address] [facility] , [address], [place] [address] , Ph. 2022-02-09 2022-02-09 Outpatient Aderiprashant, DISP DISP [id number] 00:00:00 00:00:00 Brianda [id number] 2022-02-08 2022-02-08 Outpatient R BENNY [facility] [id number] Univers 14:00:00 14:00:00 SENDIL ity of [facility] 2022-02-08 2022-02-08 Cecy [facility]ADV[facility] [place] 1.2.636.339 [id number] Univers 00:00:00 00:00:00 Latasha [facility] 350.1.13.10 it y of [place] 4.2.7.2.686 Joseph as RAJ?BLEA [id number] Ut dical KNEY [address] MEDICAL OFFICE BUILDING 2022-02-04 2022-02-04 Telephone [facility] 1.2.iCents.net0.114 [id number] Univers 00:00:00 00:00:00 Sole HANSEN 350.1.13.10 i ty of [facility] 4.2.7.2.686 [place] [phone] Me wander LIPSCOMB [address] BUILDING 2022-02-04 2022-02-04 Orders Doctor GINA 1.2.840.114 [id number] Univers 00:00:00 00:00:00 Only Unassigned, FERN 350.1.13.10 ity of [place] [facility] 4.2.7.2.686 Joseph as [id number] [address] 2022-01-25 2022-01-25 Telephone [facility] 1.2.840.114 9 [id number] Univers 00:00:00 00:00:00 Sole HANSEN 350.1.13.10 i ty of [place] [id number] Ut dical [address] 2022-01-24 2022-01-24 Refill [facility] 1.2.840.114 [id number] Univers 00:00:00 00:00:00 Sole HANSEN 350.1.13.10 i ty of [place] 4[place]2.7.2.[place] 997.7094386 Ut dic[address] 2022-01-21 2022-01-21 Telephone [facility] 1.2.840.114 9 [id number] Univers 00:00:00 00:00:00 Sole HANSEN 350.1.13.10 i ty of [place] 4[place]2.7.2.[place] [id number] Ut dic[address] 2022-01-21 2022-01-21 Orders Doctor GINA 1.2.840.114 [id number] Univers 00:00:00 00:00:00 Only Unassigned, FERN 350.1.13.10 ity of [place] [facility] 4.2.7.2.686 Joseph as [phone] [address] 2022-01-20 2022-01-20 Office [facility] 1.2.840.114 [id number] [id number] Univers 09:40:00 10:07:08 Visit Sole HANSEN 350.1.13.10 i ty of [place] [id number] Ut dic[address] 2022-01-20 2022-01-20 Out[facility] [id number] [id number] Univers 09:40:00 10:07:08 SOLE morales [facility] 2022-01-20 2022-01-20 Outpatient R LAURA [facility] 1038 [id number] Univers 09:40:00 10:07:08 SOLE morales [facility] 2022-01-20 2022-01-20 Outpatient R LAURA [facility] 1038 [id number] Univers 09:40:00 09:40:00 SOLE nawafabby [facility] 2022-01-20 2022-01-20 Outpatient R LAURA [facility] 1038 [id number] Univers 09:40:00 09:40:00 SOLE morales [facility] 2022-01-20 2022-01-20 Telephone [facility] 1.2.840.114 [id number] Univers 00:00:00 00:00:00 Sole HANSEN 350.1.13.10 i ty of [place].7.2.[place] [id number] Ut dicco NAL 044 [facility] 2022-01-08 2022-01-08 Transition ALIYA Estrella 1.2.840.114 [id number] Univers 00:00:00 00:00:00 of Care Lucia GUSTAFSON 350.1.13.10 i ty of [place]2.7.2.686 [place] [phone] [facility] [address] 2022-01-08 2022-01-08 Telephone [facility] 1.2.840.114 9 [id number] Univers 00:00:00 00:00:00 Sole HANSEN 350.1.13.10 i ty of [facility] 4.2.7.2.686 [place] [id number] Ut dicco NAL 044 [facility] 2022-01-06 2022-01-07 Emergency Shaun Peraza [facility] 1.2.840. 114 [id number] Univers 14:42:00 14:30:00 Gwen Howard 350.1.13.10 ity of [facility] 4.2.7.2.686 [place] [id number] [facility] [address] 2022-01-06 2022-01-06 Outpatient R LAURA [facility] [id number] [id number] Univers 14:00:00 14:18:27 SOLE morales [facility] 2022-01-06 2022-01-06 Outpatient [facility] 1038 [id number] Univers 14:00:00 14:18:27 SOLE morales [facility] 2022-01-06 2022-01-06 Office [facility] [place] 1.2.840.114 [id number] Univers 14:00:00 14:18:27 Visit Sole HANSEN 350.1.13.10 i ty of [place]7.2.[place] [id number] Ut dical NAL [address] [place] [address] 2022-01-06 2022-01-06 Outpatient R LAURA [facility] 1038 [id number] Univers 14:00:00 14:18:27 SOLE abby [facility] 2021-12-23 2021-12-23 Outpatient R [facility] [id number] [id number] Univers 10:40:00 11:29:29 SOLE abby [facility] 2021-12-23 2021-12-23 Office [facility] [place] 1.2.840.114 [id number] Univers 10:40:00 11:29:29 Visit Sole [place] 350.1.13.10 i ty of [place] 4.2.7.2.[place] [phone] Ut dical NAL [address] [place] [address] 2021-12-23 2021-12-23 Outpatient R [facility] [id number] [id number] Univers 10:40:00 11:29:29 SOLE abby [facility] 2021-12-23 2021-12-23 Office [facility]AD[facility] [place] 1.2.840.114 [id number] Univers 10:40:00 11:29:29 Visit Sole BUSTOSFRANKIE 350.1.13.10 i ty of [place] 4.2.7.2.[place] [id number] Ut dical NAL [address] [place] [address] 2021-12-23 2021-12-23 Outpatient R LAURA [facility] 1038 [id number] Univers 10:40:00 11:29:29 SOLE abby [facility] 2021-12-23 2021-12-23 Outpatient R [facility] [id number] [id number] Univers 10:40:00 11:29:29 SOLE [facility] 2021-12-23 2021-12-23 Outpatient R LAURA [facility] 1038 [id number] Univers 10:40:00 10:40:00 SOLE morales [facility] 2021-12-23 2021-12-23 Outpatient R LA[facility] 1038 [id number] Univers 10:40:00 10:40:00 SOLE morales [facility] 2021-12-17 2021-12-17 [place] [facility] [place] 1.2.840.114 [id number] Univers 00:00:00 00:00:00 Sole HANSEN 350.1.13.10 i ty of [facility] 4.2.7.2.686 [place] ESCALANTEESSTAMMI [phone] Ut dical RUEL [facility] 2021-12-11 2021-12-11 Outpatient R [facility] [id number] Univers 08:35:00 23:59:00 LATASHA abby [facility] 2021-12-11 2021-12-11 Outpatient [facility] [id number] Univers 08:35:00 23:59:00 LATASHA abby [facility] 2021-12-11 2021-12-11 Out[facility] [id number] Univers 08:35:00 23:59:00 LATASHA abby [facility] 2021-12-11 2021-12-11 Outpatient R [facility] [id number] Univers 08:35:00 23:59:00 LATASHA abby [facility] 2021-12-11 2021-12-11 Outpatient [facility] [id number] Univers 08:45:00 09:04:18 [facility] 2021-12-11 2021-12-11 Office [facility] 1.2.540.976 [id number] Univers 08:45:00 09:04:18 Visit [facility] 350.1.13.10 it y of [place] 4.2.7.2.686 Joseph as RAJ?BLEA [id number] Ut dical KAJALEY [address] [place] [address] MEDICAL OFFICE BUILDING 2021-12-09 2021-12-09 Outpatient R LAUR[facility] [id number] [id number] Univers 11:00:00 12:00:53 SOLE abby [facility] 2021-12-09 2021-12-09 Office [facility] [place] 1.2.840.114 [id number] Univers 11:00:00 12:00:53 Visit Sole HANSEN 350.1.13.10 i ty of [place].2.7.2.[place] [id number] Ut dical NAL 044 [facility] 2021-12-09 2021-12-09 Switch Adjuster 2, Adc Lab [facility] 1..840.114 [id number] Univers 09:45:00 09:45:00 Visit Laura Sole HANSEN 350.1.13.10 ity of [facility] 4.2.7.2.686 [place] [id number] Ut dical [facility] 353 [facility] 2021-12-08 2021-12-08 Outpatient R LAURA [facility] [id number] Univers 10:45:00 10:45:00 SOLE abby [facility] 2021-12-08 2021-12-08 Outpatient [facility] [id number] [id number] Univers 10:45:00 10:45:00 SOLE abby [facility] 2021-12-04 2021-12-04 Outpatient R [facility] [id number] Univers 08:40:00 08:40:00 SOLE [facility] 2021-12-04 2021-12-04 Outpatient R LA[facility] 1037 [id number] Univers 08:40:00 08:40:00 SOLE [facility] 2021-12-03 2021-12-03 Telephone [facility] [place] 1.2.840.114 [id number] Univers 00:00:00 00:00:00 Sole HANSEN 350.1.13.10 i ty of [facility] 4.2.7.2.686 [place] [id number] Ut dical NAL 044 [facility] 2021-11-24 2021-11-24 Patient Kannan [facility] 1.2.840.114 [id number] Univers 00:00:00 00:00:00 Outreach Lupis L [place] 350.1.13.10 ity of [place] 4.2.7.2.686 [place] [id number] Ut dical NAL [address] [place] [address] 2021-11-24 2021-11-24 Patient Kannan, [facility] 1.2.840.114 [id number] Univers 00:00:00 00:00:00 Outreach Lupis L [place] 350.1.13.10 ity of [place] 4.2.7.2.686 [place] [id number] Ut dical NAL [address] [place] [address] 2021-11-24 2021-11-24 Patient Kannan, [facility] 1.2.840.114 [id number] Univers 00:00:00 00:00:00 Outreach Lupis L [place] 350.1.13.10 ity of [place] 4.2.7.2.686 [place] [id number] Ut dical NAL [address] [place] [address] 2021-11-24 2021-11-24 Patient Kannan, [facility] 1.2.840.114 [id number] Univers 00:00:00 00:00:00 Outreach Lupis L [place] 350.1.13.10 ity of [place] 4.2.7.2.686 [place] [phone] Ut dical NAL [address] [place] [address] 2021-11-24 2021-11-24 Patient Kannan, [facility] 1.2.840.114 [id number] Univers 00:00:00 00:00:00 Outreach Lupis L [place] 350.1.13.10 ity of [place] 4.2.7.2.686 [place] [phone] Ut dical NAL 044 [facility] 2021-11-24 2021-11-24 Patient Kannan, [facility] 1.2.840.114 [id number] Univers 00:00:00 00:00:00 Outreach Lupis L [place] 350.1.13.10 ity of [place] 4.2.7.2.686 [place] [phone] Ut dical NAL [address] [place] [address] 2021-11-232021-11-23 Patient [facility] 1.2.840.114 [id number] Univers 00:00:00 00:00:00 Outreach Lupis So [place] 350.1.13.10 ity of [facility] 4.2.7.2.686 [place] [phone] [address] 2021-11-23 2021-11-23 Refill [facility] 1.2.840.114 [id number] Univers 00:00:00 00:00:00 Sole HANSEN 350.1.13.10 i ty of [facility] 4.2.7.2.686 [place] [phone] Ut dical NAL [address] [place] [address] 2021-11-20 2021-11-20 Outpatient R [facility] [id number] Univers 16:00:00 17:07:33 SOLE morales [facility] 2021-11-20 2021-11-20 Office [facility] 1..840.114 904 [id number] Univers 16:00:00 17:07:33 Visit Sole HANSEN 350.1.13.10 i ty of [place] 4.2.7.2.686 [place] [id number] [address] 2021-11-20 2021-11-20 Outpatient R [facility] 1037 [id number] Univers 16:00:00 17:07:33 SOLE morales [facility] 2021-11-20 2021-11-20 Office [facility] 1.2.840.114 [id number] Univers 16:00:00 17:07:33 Visit Sole HANSEN 350.1.13.10 i ty of [place] 4.2.7.2.686 [place] [phone] Ut dic[address] 2021-11-20 2021-11-20 Outpatient R [facility] 1037 [id number] Univers 16:00:00 17:07:33 SOLE morales [facility] 2021-11-20 2021-11-20 Office [facility] 1.2.840.114 [id number] [id number] Univers 16:00:00 17:07:33 Visit Sole [place] 350.1.13.10 i ty of [facility] 4.2.7.2.686 [place] [phone] Ut dical NAL [address] [place] [address] 2021-11-20 2021-11-20 Office [facility] 1.2.840.114 [id number] Univers 16:00:00 17:07:33 Visit Sole HANSEN 350.1.13.10 i ty of [place] 4.2.7.2.686 [place] [phone] Ut dical NAL [address] [place] [address] 2021-11-20 2021-11-20 Office [facility] 1.2.840.114 [id number] [facility] [place] 16:00:00 17:07:33 Visit Sole HANSEN 350.1.13.10 i ty of [facility] 4.2.7.2.686 [place] [phone] Ut dical NAL [address] [place] [address] 2021-11-20 2021-11-20 Office [facility] 1.2.840.114 [id number] [facility] 16:00:00 17:07:33 Visit Sole HANSEN 350.1.13.10 i ty of [facility] 4.2.7.2.686 [place] [id number] Ut dical NAL [address] [place] [address] 2021-11-20 2021-11-20 Office [facility] 1.2.840.114 [id number] Univers 15:40:00 17:06:34 Visit Sole HANSEN 350.1.13.10 i ty of [facility] 4.2.7.2.686 [place] [phone] Ut dicco NAL [address] [place] [address] 2021-11-20 2021-11-20 Outpatient R [facility] [id number] Univers 16:00:00 16:00:00 SOLE morales [facility] 2021-11-20 2021-11-20 Orders Doctor FUENTES 1.2.840.114 [id number] Univers 00:00:00 00:00:00 Only Unassigned, FERN 350.1.13.10 ity of [place] [facility] 4.2.7.2.686 Joseph as [phone] [address] 2021-11-12 2021-11-12 Outpatient R CELI [facility] [id number] Univers 16:00:00 16:30:13 TALIA ity of [facility] 2021-11-12 2021-11-12 Office Celi [facility] 1.2.840.114 [id number] Univers 16:00:00 16:30:13 Visit [facility] 350.1.13.10 it y of [place] 4.2.7.2.686 Joseph as RAJ?BLEA [id number] [address] OFFICE [facility] 2021-11-11 2021-11-11 Telephone [facility] [place] 1.2.143.916 [id number] Univers 00:00:00 00:00:00 [facility] 350.1.13.10 it y of [place] 4.2.7.2.686 Joseph as RAJ?BLEA [phone] [address] OFFICE [facility] 2021-11-06 2021-11-06 Telephone [facility] 1.2.840.114 [id number] Univers 00:00:00 00:00:00 Sole HANS[place] 350.1.13.10 i ty of [place] 4.2.7.2.[place] [id number] [address] 2021-11-03 2021-11-03 Telephone [facility] 1.2.840.114 9 [id number] Univers 00:00:00 00:00:00 Sole HANSEN 350.1.13.10 i ty of [facility] 4.2.7.2.686 [place] [id number] [address] 2021-10-30 2021-10-30 Telephone [facility] 1.2.840.114 9 [id number] Univers 00:00:00 00:00:00 Sole HANSEN 350.1.13.10 i ty of [place] 4.2.7.2.686 [place] [phone] Ut dicjuarez LIPSCOMB [address] [facility] 2021-10-29 2021-10-29 Orders Doctor GINA 1.2.840.114 [id number] Univers 00:00:00 00:00:00 Only Unassigned, FERN 350.1.13.10 ity of [place] [facility] 4.2.7.2.686 Joseph as [phone] [address] 2021-10-02 2021-10-02 Outpatient [facility] [id number] [id number] Univers 09:00:00 09:00:00 SOLE abby [facility] 2021-10-02 2021-10-02 [facility] 1036 [id number] Univers 09:00:00 09:00:00 SOLE abby [facility] 2021-09-17 2021-09-17 Telephone [facility] 1.2.840.114 [id number] Univers 00:00:00 00:00:00 [facility] 350.1.13.10 ity of [place] 4.2.7.2.686 Joseph as RAJ?BLEA [phone] Ut mary annco [address] [place] [address] MEDICAL OFFICE BUILDING 2021-09-17 2021-09-17 Telephone [facility] 1.2.840.114 [id number] Univers 00:00:00 00:00:00 Sole HANSEN 350.1.13.10 i ty of [place] 4.2.7.2.[place] [phone] Ut dicjuarez LIPSCOMB [facility] 2021-09-17 2021-09-17 Telephone [facility] 1.2.840.114 [id number] Univers 00:00:00 00:00:00 Sole HANSEN 350.1.13.10 i ty of [place] 4.2.7.2.686 [place] [phone] Ut dicjuarez NAL [address] [facility] 2021-09-15 2021-09-15 Telephone [facility] 1.2.568.608 [id number] Univers 00:00:00 00:00:00 Digna Rubin [facility] 350.1.13.10 i ty [facility] 4.2.7.2.686 Joseph as RAJ?BLEA [phone] [facility] 044 [facility] OFFICE [facility] 2021-09-08 2021-09-08 Telephone Greg [facility] 1.2.840.114 [id number] Univers 00:00:00 00:00:00 [facility] 350.1.13.10 ity of [place] 4.2.7.2.686 Joseph as RAJ?BLEA [phone] [facility] RDZ 092 [facility] OFFICE [facility] 2021-09-04 2021-09-04 Switch Adjuster Lab, Ang - Db [facility] 1.2.840.1 14 [id number] Univers 11:19:40 11:34:40 Visit [place] [facility] 350.1.13. 10 [facility] 4.2.7.2.686 Joseph as RAJ?BLEA [phone] [facility] 353 [facility] OFFICE [facility] 2021-09-04 2021-09-04 Outpatient Jeannine RANCHO BRAVO [facility] [id number] Univers 11:30:00 11:30:00 RANCHO BRAVO abby [facility] 2021-09-04 2021-09-04 Outpatient Jeannine RANCHO BRAVO [facility] [id number] Univers 11:00:00 11:17:32 RANCHO BRAVO abby [facility] 2021-09-04 2021-09-04 Office Greg [facility] [id number] [id number] Univers 09:43:53 11:17:32 Visit [place] Gr[place]on [facility] 350.1.13.10 [facility] 4.2.7.2.686 Joseph as RAJ?BLEA [phone] [facility] [address] [place] [address] OFFICE [facility] 2021-09-02 2021-09-02 Telephone Celi [facility] [id number] Univers 00:00:00 00:00:00 Talia [facility] [id number] it y of [place] 4.2.7.2.686 Joseph as RAJ?BLEA [phone] [facility] RDZEY 044 [facility] OFFICE [facility] 2021-09-02 2021-09-02 Telephone [facility] [id number] [id number] Univers 00:00:00 00:00:00 [facility] [id number] ity rober [place] 4.2.7.2.686 Joseph as RAJ?BLEA [phone] Ut wander [facility] 092 [facility] 2021-08-27 2021-08-27 [facility] [id number] Univers 14:30:00 15:34:39 TALIA abby [facility] 2021-08-27 2021-08-27 Office [facility] 1.2.840.114 [id number] Univers 14:13:41 15:34:39 Visit [facility] 350.1.13.10 it y of [place] 4.2.7.2.686 Joseph as RAJ?BLEA [phone] [address] 2021-08-27 2021-08-27 Outpatient R CELI [facility] [id number] Univers 14:30:00 14:30:00 TALIA [facility] 2021-08-27 2021-08-27 Outpatient Jeannine [facility] [id number] Univers 14:00:00 14:00:00 DIGNA ity [facility] 2021-08-26 2021-08-26 Emergency X [facility] ERT [id number] Univers 13:16:00 15:35:00 RAFA morales [facility] 2021-08-26 2021-08-26 Emergency [facility] [id number] [id number] Univers 13:16:00 15:35:00 Rafa HANSEN 350.1.13.10 i ty of [place] 4[place]2.7.2.[place] [phone] [address] 2021-08-26 2021-08-26 Emergency X [facility] ERT [id number] Univers 13:16:00 15:35:00 RAFA morales [facility] 2021-08-25 2021-08-25 Outpatient RANCHO GANDHI [facility] [id number] Univers 15:00:00 15:00:00 RANCHO BRAVO [facility] 2021-08-25 2021-08-25 Outpatient RANCHO GANDHI [facility] [id number] Univers 15:00:00 10:41:13 RANCHO BRAVO [facility] 2021-08-25 2021-08-25 Office Greg [facility] 1.2.840.114 [id number] Univers 09:34:17 10:41:13 Visit Rancho Grullon [facility] [id number] ity of [place] 4.2.7.2.686 Joseph as RAJ?BLEA [phone] [address] OFFICE [facility] 2021-08-21 2021-08-21 Telephone Greg [facility] 1.2.840.114 [id number] Univers 00:00:00 00:00:00 [facility] 350.1.13.10 ity of [place] 4.2.7.2.686 Joseph as RAJ?BLEA [phone] [address] OFFICE [facility] 2021-08-19 2021-08-19 Outpatient RANCHO GANDHI [facility] [id number] Univers 08:03:23 23:59:00 RANCHO BRAVO [facility] 2021-08-19 2021-08-19 [facility] 1.2.308.531 [id number] Univers 08:03:23 23:59:00 [facility]counter [facility] [id number] it[place] of [place].2.7.2.686 [place] [phone] [facility] [address] 2021-08-19 2021-08-19 Orders Doctor GINA 1.2.840.114 [id number] Univers 00:00:00 00:00:00 Only Unassigned, FERN 350.1.13.10 ity of [place] [facility] 4.2.7.2.686 Joseph as [phone] [facility] [address] 2021-08-17 2021-08-17 Outpatient RANCHO GANDHI [facility] [id number] Univers 14:40:00 14:40:00 RANCHO BRAVO ity of [facility] 2021-08-06 2021-08-06 [facility] 1.2.840.114 [id number] Univers 07:41:44 23:59:00 Encounter Vasu Hansen 350.1.13.10 ity of [place] 4.2.7.2.686 [facility] [phone] [facility] [address] 2021-08-06 2021-08-06 [facility] 1.2.840.114 [id number] Univers 07:41:30 23:59:00 Encounter Vasu Brewster 350.1.13.10 ity of [place] 4.2.7.2.686 [facility] [phone] [facility] [address] 2021-08-06 2021-08-06 [facility] 1.2.840.114 [id number] Univers 07:41:13 23:59:00 Encounter Vasu Bustoston 350.1.13.10 ity of [place] 4.2.7.2.686 [facility] [phone] [place] [address] [place] 2021-08-06 2021-08-06 Outpatient [facility] [id number] Univers 08:00:00 08:00:00 VASU mccrackeny o f [facility] 2021-08-06 2021-08-06 [facility] 1.2.840.114 [id number] Univers 07:40:58 07:40:58 Encounter Vasu Bustoston 350.1.13.10 ity of [place] 4.2.7.2.686 [facility] [phone] [place] [address] [place] 2021-08-03 2021-08-03 Outpatient R [facility] [id number] Univers 10:15:00 10:15:00 ity of [facility] 2021-08-03 2021-08-03 Switch Adjust[facility] Lab, Vincent - John [facility] 1.2.840.1 [id number] Univers 08:33:11 08:48:11 Visit Annetta, [facility] 350.1.13.10 ity of [place] 4.2.7.2.686 Joseph as Raj?Blea [phone] Ut wander carbone 353 [facility] Office [facility] 2021-07-31 2021-07-31 Outpatient RANCHO GANDHI [facility] [id number] Univers 10:00:00 10:27:40 RANCHO BRAVO abby [facility] 2021-07-31 2021-07-31 Outpatient R RANCHO BRAVO [facility] [id number] Univers 10:00:00 10:27:40 RANCHO BRAVO abby [facility] 2021-07-31 2021-07-31 Outpatient R RANCHO BRAVO [facility] [id number] Univers 10:00:00 10:27:40 RANCHO BRAVO [facility] 2021-07-31 2021-07-31 Outpatient Jeannine RANCHO BRAVO [facility] [id number] Univers 10:00:00 10:27:40 RANCHO BRAVO [facility] 2021-07-31 2021-07-31 Office [facility] 1.2.840.114 [id number] Univers 08:48:12 10:27:40 Visit Rancho Roberto 350.1.13.10 ity of [place] 4.2.7.2.686 Joseph as Raj?Blea [phone] Ut wander [place] 092 [facility] Office [facility] 2021-07-31 2021-07-31 Outpatient R RANCHO BRAVO [facility] [id number] Univers 10:00:00 10:00:00 RANCHO BRAVO [facility] 2021-07-23 2021-07-23 Office [facility] 1.2.840.114 [id number] Univers 12:57:43 14:24:23 Visit Digna [facility] 350.1.13.10 i ty of [place] 4.2.7.2.686 Joseph as Raj?Blea [phone] Ut wander carbone 044 [facility] Office [facility] 2021-07-23 2021-07-23 [facility] [id number] Univers 13:30:00 13:30:00 DIGNA nawafabby [facility] 2021-07-16 2021-07-16 Outpatient R SURAJ, [facility] [id number] Univers 08:30:00 08:30:00 VASU mendenhall [facility] 2021-07-03 2021-07-03 Office Suraj, [facility] 1.2.840.114 [id number] Univers 12:26:20 14:30:32 Visit Vasu [place] [facility].1.13.10 [facility] [place].2.[place].2.[place] [phone] Ut dical nal 9 [facility] 2021-07-03 2021-07-03 Outpatient R SURAJ, [facility] [id number] Univers 13:00:00 13:00:00 VASU mendenhall [facility] 2021-07-03 2021-07-03 Office Suraj, [facility] 1.2.840.114 [id number] Univers 12:26:20 12:46:20 Visit Vasu Bustoston 350.1.13.10 ity [facility] 4.2.7.2.686 [place] [phone] Ut dical nal 9 [facility] 2021-06-10 2021-06-10 Outpatient Zuniga_F [facility] [id number] [place] 09:20:00 09:20:00 0825 [facility] 2021-06-03 2021-06-03 Outpatient A_Byrd [facility] [id number] [place] 10:29:00 10:29:00 0818 [facility] 2021-06-02 2021-06-02 Outpatient R SURAJ, [facility] [id number] Univers 13:00:00 13:00:00 VASU harper [facility] 2021-05-25 2021-05-25 Outpatient R SURAJ, [facility] [id number] Univers 11:00:00 11:00:00 VASU harper [facility] 2020-10-31 2020-10-31 Outpatient Lucio, DORIAN LABO [id number] [facility] 00:22:00 00:22:00 Oladipo 41 [facility] 2020-10-24 2020-10-24 Outpatient [facility] [id number] Univers 10:00:00 10:00:00 SOLE abby [facility] 2020-10-15 2020-10-15 Outpatient [facility] [id number] Univers 13:20:00 13:20:00 VASU ity o f [facility] 2020-10-06 2020-10-06 Outpatient [facility] [id number] Univers 16:15:00 16:15:00 ALFONSO [facility] 2020-10-06 2020-10-06 Office [facility] 1.2.840.114 [id number] Univers 13:54:04 14:09:04 Visit Alfonso [facility] 350.1.13.10 it y of Surgical 4.2.7.2.686 Joseph as Special [phone] Ut dical es 198 [facility] 2020-10-02 2020-10-02 Outpatient R [facility] [id number] Univers 10:45:00 10:45:00 LATASHA [facility] 2020-10-02 2020-10-02 Transition Aliya Goodrich 1.2.840.114 [id number] Univers 00:00:00 00:00:00 of Care Delroy Gustafson 350.1.13.10 ity of [place] 4[place]2.7.2.686 [place] [id number] [facility] [address] 2020-09-15 2020-09-15 Outpatient [facility] [id number] Univers 11:30:00 11:30:00 SENDIL ity [facility] 2020-08-25 2020-08-26 Emergency [facility] 1.2.761.834 [id number] Univers 20:18:00 01:58:00 Cristal Hansen 350.1.13.10 ity of [place] 4.2.7.2.686 [place] [phone] [facility] [address] 2020-08-19 2020-08-19 Orders Doctor FUENTES 1.2.840.114 [id number] Univers 00:00:00 00:00:00 Only Unassigned, FERN 350.1.13.10 ity of [place] [facility] 4.2.7.2.686 Joseph as [phone] [address] 2020-08-15 2020-08-15 Hospital [facility] 1.2.840.114 [id number] Univers 11:15:05 23:59:00 Encounter Latasha Roberto 350.1.13.10 ity of Surgical 4.2.7.2.686 Joseph as Specialti [phone] Ut dical es 809 [facility] 2020-08-15 2020-08-15 Office [facility]AD[facility] 1.2.620.375 [id number] Univers 10:43:13 11:31:24 Visit Latasha Roberto 350.1.13.10 it y of Surgical 4.2.7.2.686 Joseph as Specialti [phone] Ut dical es 198 [facility] 2020-08-15 2020-08-15 Outpatient [facility] [id number] Univers 11:15:00 11:15:00 LATASHA ity of [facility] 2020-08-15 2020-08-15 Orders Doctor GINA 1.2.840.114 [id number] Univers 00:00:00 00:00:00 Only Unassigned, FERN 350.1.13.10 ity of [place] [facility] 4.2.7.2.686 Joseph as [phone] [address] 2020-08-03 2020-08-03 Orders Doctor FUENTES 1.2.840.114 [id number] Univers 00:00:00 00:00:00 Only Unassigned, FERN 350.1.13.10 ity of [place] [facility] 4.2.7.2.686 Joseph as [phone] [address] 2020-08-01 2020-08-01 [facility] 1.2.840.114 [id number] Univers 00:00:00 00:00:00 Lynette Hansen 350.1.13.10 ity of [place].7.2.686 [place] [phone] Ut dical nal 231 [facility] 2020-07-15 2020-07-15 Transition Aliya Goodrich 1.2.840.114 [id number] Univers 00:00:00 00:00:00 of Care Delroy Gustafson 350.1.13.10 ity of [place] 4.2.7.2.686 [place] [phone] [facility] [address] 2020-07-08 2020-07-14 Hospital Matias Carrillo [facility] 1.2.8 40.114 [id number] Univers 17:59:00 15:35:[address] [facility] 350.1.13.10 ity of [place] 4.2.7.2.686 [facility] [place] [phone] [facility] [address] ([facility]) 2020-07-05 2020-07-05 Telephone [facility] 1.2.840.114 [id number] Univers 00:00:00 00:00:00 Latasha Hansen 350.1.13.10 i ty of [place] 4.2.7.2.686 [place] [facility] [phone] Ut dical critical [facility] hospital [address] [facility] 2020-06-20 2020-06-20 Outpatient [facility] [id number] Common 10:36:00 10:36:[address] [facility] 2020-06-04 2020-06-05 Emergency [facility] 1.2.752.805 [id number] Univers 22:27:00 00:20:00 Adrianna Hansen 350.1.13.10 ity of [place] 4.2.7.2.686 [place] [facility] [phone] [facility] [address] 2020-05-23 2020-05-23 Outpatient [facility] [id number] Common 16:20:00 16:20:[address] [facility] 2020-05-23 2020-05-23 Outpatient [facility] [id number] Common 15:25:00 15:25:[address] [facility] 2020-05-20 2020-05-20 Emergency Rafa Ferreira [facility] 1.2.840. 114 [id number] Univers 18:40:00 23:30:00 Adrianna Kelley 350.1.13.10 ity of [place] 4.2.7.2.686 [facility] [phone] [place] [address] [address] 2020-05-11 2020-05-11 Emergency Warren [facility] 1.2.783.147 [id number] Univers 18:55:50 21:49:00 Adrianna Hansen 350.1.13.10 ity of [place] 4.2.7.2.686 [facility] [phone] [place] [address] [address] 2020-05-07 2020-05-07 Emergency Singer [facility] 1.2.906.248 [id number] Univers 13:59:37 14:43:00 Rafa Hansen 350.1.13.10 i ty of [place] 4.2.7.2.686 [facility] [id number] [place] [address] [address] 2020-05-07 2020-05-07 Orders Doctor GINA 1.2.840.114 [id number] [facility] [place] 00:00:00 00:00:00 Only Unassigned, FERN 350.1.13.10 ity of [place] [facility] 4.2.7.2.686 [facility] [phone] [place] [address] [address] 2020-01-28 2020-01-28 Outpatient JAYNA Doty REF [id number] [facility] 14:20:00 14:20:00 Cristopher Ritter [facility] 2020-01-01 2020-01-01 Outpatient [facility] [id number] Common 16:10:00 16:10:[address] [facility] 2019-12-26 2019-12-26 Outpatient [facility] [id number] Common 08:44:00 08:44:[address] [facility] 2019-12-05 2019-12-05 Outpatient [facility] [id number] Common 15:07:00 15:07:[address] [facility] 2019-09-24 2019-09-24 Outpatient [facility] [id number] Common 09:27:00 09:27:[address] [facility] 2019-09-06 2019-09-06 Outpatient [facility] [id number] Common 12:00:00 12:00:[address] [facility] 2019-08-18 2019-08-18 Outpatient [facility] [id number] Common 17:55:00 17:55:[address] [facility] 2019-08-01 2019-08-01 Outpatient [facility] [id number] Common 09:00:00 09:00:[address] [facility] 2019-06-07 2019-06-07 Outpatient [facility] [id number] Common 11:20:00 11:20:[address] [facility] 2019-01-04 2019-01-04 Outpatient [facility] [id number] Common 14:04:00 14:04:[address] [facility] 2018-11-23 2018-11-23 Outpatient [facility] [id number] Common 09:15:00 09:15:00 [facility] 2018-11-20 2018-11-20 Outpatient [facility] [id number] Common 10:13:00 10:13:[address] [facility] 2018-11-15 2018-11-15 Outpatient [facility] [id number] Common 15:15:00 15:15:[address] [facility] 2018-10-09 2018-10-09 Outpatient [facility] [id number] Common 10:19:00 10:19:[address] [facility] 2018-06-02 2018-06-02 Outpatient [facility] [id number] Common 16:46:00 16:46:[address] [facility] 2018-05-11 2018-05-11 Outpatient Shannan Campbellt [id number] Common 09:45:00 09:45:[address] [facility] 2016-08-02 2016-08-02 Outpatient Jeannine SANTILLAN [facility] [id number] [facility] [place] 16:15:00 16:15:00 LATASHA morales [facility] Results Test Description Test Time Test Comments Results Result Comments Source Lactic Acid 2022-05-22 08:30:00 Test Item Value Reference Range Interpretation Comme nts Lactic Acid (test code = LACTIC) 1.6 mmol/L 0.5-2.0 N Complete Blood Count Auto [id number] 08:20:00 Test Item Value Reference Range Interpretation [...] code = NRBCP) 0 % Basic Metabolic [id number] 08:20:00 Test Item Value Reference Range Interpretation [...] = CA) 8.5 mg/dL 8.3-10.6 N Lactic [id number] 21:10:00 Test Item Value Reference Range Interpretation Comments Lactic Acid (test 2.3 mmol/L 0.5-2.0 HH Critical v alue called code = LACTIC) to shannan jioner ck by jaime yang rn on: 05/20/22 at 222 0by OJO01. Troponin I High [id number] 20:20:00 Test Item Value Reference Range Interpretation [...] conjunctionwith clinical findin gs. UA, Urinalysis Rflx Cult/[id number] 18:35:00 Test Item Value Reference Range Interpretation Comments Color,Urine (test code = UCOL) Yellow Yellow Clarity,Urine (test code = Clear Clear UCLAR) Ph, Urine (test code = UPH) 7.5 5.0-9.0 N Specific [place],Urine (test 1.010 1.005-1.030 N code = USG) [...] Negative code = ULEU) UF REFLEXUF REFLEXUrine [id number] 18:35:00 Test Item Value Reference Range Interpretation Comments RBC,Urine (test code = URBCUF) None Seen /HPF 0-2 WBC,Urine (test code = UWBCUF) 0-5 /HPF 0-5 Epithelial Cell,Urine (test 0-5 /HPF 0-5 code = UECUF) Casts,Urine (test code = 0-5 /LPF None Seen UCASTUF) Bacteria,Urine (test code = None Seen /hpf None Seen UBACTUF) UF REFLEXUF REFLEXDrug Screen,[id number] 18:35:00 Test Item Value Reference Range Interpretation [...] code = UPROP) Complete Blood Count Auto [id number] 18:24:00 Test Item Value Reference Range Interpretation [...] = NRBCP) 0 % Troponin I High [id number] 18:04:00 Test Item Value Reference Range Interpretation [...] evaluated in conjunctionwith clinical findin gs. Blood [id number] 17:05:00 Test Item Value Reference Range Interpretation Comments Blood Culture (test NO GROWTH AFTER 5 DAYS code = BC) Troponin I High [id number] 17:00:00 Test Item Value Reference Range Interpretation [...] conjunctionwith clinical findin gs. Coronavirus PCR, COVID19 [id number] 17:00:00 Test Item Value Reference Range Interpretation Comments Coronavirus PCR, For use under Emergency COVID19 Rapid (test Use Authorization (EUA) code = SARSCOV2) only. Coronavirus PCR, Reference Range: COVID19 Rapid (test Negative code = OSYGFWE31.1) SARS-CoV-2 PCR Result: Negative by RT-PCR (test code = SARS-CoV-2 PCR Result:) COVID-19 Status: AsymptomaticBlood [id number] 17:00:00 Test Item Value Reference Range Interpretation Comments Blood Culture (test NO GROWTH AFTER 5 DAYS code = BC) Prothrombin Time [id number] 17:00:00 Test Item Value Reference Range Interpretation [...] - 3.5 Mechanical Hear t, Intracardiac Thrombosis. Partial Thromboplastin [id number] 17:00:00 Test Item Value Reference Range Interpretation Comments Partial Thromboplastin Time 20.8 Seconds 23.9-32.8 L (test code = PTT) Comprehensive Metabolic [id number] 17:00:00 Test Item Value Reference Range Interpretation [...] 105 U/L 46-116 N = ALP) Creatine [id number] 17:00:00 Test Item Value Reference Range Interpretation Comments Creatine Kinase (test code = CK) 81 U/L 46-171 N Ethanol [id number] 17:00:00 Test Item Value Reference Range Interpretation Comments Ethanol (test code < 3 mg/dL The pharm acological = ETOH) response to blo od alcohol levels mayvary from individual to i ndividual. The fatal bo ntrationhas been reported t o be >400mg/dL. Lactic [id number] 16:42:00 Test Item Value Reference Range Interpretation Comments Lactic Acid (test 2.3 mmol/L 0.5-2.0 HH Critical v alue called code = LACTIC) to shannan joiner ck by Viola mendenhall n: 05/20/22 at 175 3by RAS08. Lactic Acid Collected YPrepare Leuko-Red [id number] 23:54:00 Test Item Value Reference Range Interpretation Comments CROSSMATCH (test code = 2264) COMPATIBLE Unit ABO (test code = A Pos [id number]) UNIT NUMBER (test code = [id number] 934-0) Status (test code = 8425608) TX_TIMEINCHART Blood Bank Product (test code RED BLOOD CELLS = 2263) PRODUCT CODE (test code = W2344T53 933-2) [facility] HeartPrepare Leuko-Red [id number] 23:54:00 Test Item Value Reference Range Interpretation Comments CROSSMATCH (test code = 2264) COMPATIBLE Unit ABO (test code = A Pos 1889502) UNIT NUMBER (test code = [id number] 934-0) Status (test code = 1705382) TX_TIMEINCHART Blood Bank Product (test code RED BLOOD CELLS = 2263) PRODUCT CODE (test code = X4919Z63 933-2) [facility] HeartHEPATIC FUNCTION [id number] 05:10:20 Test Item Value Reference Range Interpretation [...] (test code = 16 U/L 5-50 347) Auditor In Charge ID - LITOOperator ID - LITOOperator ID - LITOOperator ID - LITOOperator ID - LITOOperator ID - LITOOperator ID - LITOOperator ID - LITOOperator ID - LITOOperator ID - LITOBASIC METABOLIC [id number] 05:08:22 Test Item Value Reference Range Interpretation [...] S NOT APPLICABLE FOR DIALYSIS PATIEN TS. Auditor In Charge ID - LITOOperator ID - LITOOperator ID - LITOOperator ID - LITOOperator ID - LITOOperator ID - LITOOperator ID - LITOOperator ID - LITOOperator ID - LITOCBC W/PLT COUNT & AUTO [id number] 04:58:17 Test Item Value Reference Range Interpretation [...] (BEAKER) (test code = 2801) HEPATIC FUNCTION [id number] 06:24:42 Test Item Value Reference Range Interpretation [...] (test code = 15 U/L 5-50 347) Auditor In Charge ID - [id number] ID - [id number] ID - VMOYTFFIB128Ynrpixux ID - KMFUJRPRM662Vbtkqeux ID - GAIHCOEOG301Lgxljlcu ID - VNURKDLMY221Ldqozlle ID - NFWOWLKXO463Mppehlyg ID - GBQNVFYIA019Ebwberru ID - LDLBFZDHN010Hudlupzv ID - AWZNXKBPP161MUVWQ METABOLIC [id number] 06:24:00 Test Item Value Reference Range Interpretation [...] 1092) DATA TO CALCULA TE ESTIMATED GFR. Auditor In Charge ID - [id number] ID - FXZYDOEYH716Whfdmnul ID - MGHVUCGRY642Fawvbsbh ID - KKUDVSOCH935Vxwqsxzk ID - RNDOSZRMN674Tpzqiajh ID - JTVPVWXTI214Zxzbuuus ID - ZBORJQXOE315Acjtjpqj ID - YGDSZMNMY096Zykcapuh ID - HNAOOJRGQ967Txgxccbv ID - QACPLUROE808GVM W/PLT COUNT & AUTO DIFFERENTIAL 2022-04-10 05:53:05 [...] (test code = 2801) CT, BRAIN, WITHOUT [id number] 00:03:00Unlisted Reason for Exam - Click Yes and Enter Reason Below->Noaphasia - anemia, bleed? [facility] 1960 Sex: MFINAL [...] contents are unremarkable. IMPRESSION: Remote ischemic and involutionalchanges as described above while no definite large territory infarction is identified recommend MRI for further evaluation if persistent clinical concern. Signed: Michelle Verdugoeport Verified D ate/Time: 04/10/2022 00:03:56 BASIC METABOLIC [id number] 23:16:13 Test Item Value Reference Range Interpretation [...] 1092) DATA TO CALCULA TE ESTIMATED GFR. Auditor In Charge ID - DSENSONOperator ID - DSENSONOperator ID [...] (test code = 15 U/L 5-50 347) Auditor In Charge ID - DSENSONOperator ID - DSENSONOperator ID - DSENSONOperator ID - DSENSONOperator ID - DSENSONOperator ID - DSENSONOperator ID - DSENSONMAGNESIUM 2022-04-09 23:06:21 Test Item Value Reference Range Interpretation Comments MAGNESIUM (BEAKER) (test code = 2.1 mg/dL 1.5-3.0 627) Auditor In Charge ID - DSENSONOperator ID - DSENSONOperator ID - DSENSONOperator ID - [id number] 23:03:17 Test Item Value Reference Range Interpretation Comments PHOSPHORUS (BEAKER) (test code = 2.9 mg/dL 2.5-4.5 604) Auditor In Charge ID - DSENSONPROTHROMBIN TIME/[id number] 22:59:19 Test Item Value Reference Range Interpretation Comments PROTIME (BEAKER) 10.9 seconds 9.3-12.0 Final Infor mation (test code = 759) (Auto Outp ut) INR (BEAKER) (test 0.99 See_Comment Final Inf ormation code = 370) (Auto Output) [Automated mess age] The system [employer] generated this result transmitted ref erence range: <=5.90. The reference range was not used to int erpret this result as normal/abnormal . RECOMMENDED COUMADIN/WARFARIN INR THERAPY RANGESSTANDARD DOSE: 2.0 - 3.0 Includes: PROPHYLAXIS for venous thrombosis, systemic embolization; TREATMENT for venous thrombosis and/or pulmonary embolus.HIGH RISK: Target INR is 2.5-3.5 for patients with mechanical heart valves.CBC W/PLT COUNT & AUTO [id number] 22:54:17 Test Item Value Reference Range Interpretation [...] PERCENT (BEAKER) (test code = 2801) HOMOCYSTEINE [id number] 10:10:00 Test Item Value Reference Range Interpretation Comments HOMOCYSTEINE (test code 15.3 umol/L 0.0-14.5 A Perf ormed At: HD = HOMOCY) [facility] [address] [id number] Kyle L MD Ph:[phone] RAPID PLASMA [id number] 06:11:00 Test Item Value Reference Range Interpretation Comments RAPID PLASMA REAGIN Non Reactive Non Reactive Performe d At: HD (test code = RPR) [facility] [address] [place], [place] [id number] So MD Ph:[phone] CT HEAD/BRAIN W/O [id number] 14:36:00 [facility] : 1960 Sex: M Name: OTONIEL HENDERSON [facility]ly [facility] : 1960 Age/S: 60 / M [address] Unit #: [id number] Loc: [place] [address] Phys: Ximena Valdes MD Acct: [id number] Dis Date: Status: ADM IN PHONE #: [phone] Exam Date: 10/31/2020 1420 FAX #: Reason: CVA EXAMS: CPT: [id number] CT HEAD/BRAIN W/O CONT 73587 CLINICAL HISTORY: CVA. CT brain, unenhanced. Reformatted [...] or other white matter process but appearing roxana fairly stable. No hemorrhage, mass effect, or findings of CVA can be seen. No evidence of ventricular shift. The posterior fossa structures appear to be intact. Bone window settings do not show any evidence of skull fracture. Visualized sinuses appear to be clear. . IMPRESSION: No acute appearing in tracranial abnormality. No findings of hemorrhage or acute CVA can be documented. Location: U19 at 1436 Reported and signed by: Otoniel Busch M.D CC: Ximena Valdes MD; Karen PHAM Mcroberts Technologist:RT Ratna (R)(CT) CTDI: DLP: Trnscb Date/Time: 10/31/2020 (1436) t.[email or web address] Orig Print D/T: S: 10/31/2020 (1439) PAGE 1 Signed ReportSED [id number] 10:34:00 Test Item Value Reference Range Interpretation Comments SED RATE (test code = SEDW) 7 mm/hr 0-15 SED RATE [id number] 10:33:00 Test Item Value Reference Range Interpretation Comments SED RATE WESTERGREN (test code = 7 mm/hr 0-15 N SEDW) [id number] 07:00:00 Test Item Value Reference Range Interpretation Comments GLYCOSYLATED HEMOGLOBIN (HA1C) 5.5 % A1C 0.0-5.7 N (test code = GLYHGB) ESTIMATED AVERAGE GLUCOSE (test 111 MG/DLest code = EAG) BASIC METABOLIC [id number] 06:55:00 Test Item Value Reference Range Interpretation [...] WITHIN 1 HR AND FREEZE SERUM PROMPTLY.HOMOCYSTEINE [id number] 06:55:00 Test Item Value Reference Range Interpretation Comments HOMOCYSTEINE (test code = HOMOCY) mcMOL/L <9 Comment: FASTING IN AM PATIENT SHOULD BE FASTING OVERNIGHT 10-12 HRS. TAKE BLOOD TO LAB [facility]. MUST SEPAPATE SERUM FROM CELLS WITHIN 1 HR AND FREEZE SERUM PROMPTLY.CBC W/AUTO [id number] 06:41:00 Test Item Value Reference Range Interpretation [...] NO DIFF/SCN CRITERIA = MDIFF) GLUCOSE BEDSIDE [id number] 23:18:00 Test Item Value Reference Range Interpretation Comments GLUCOSE BEDSIDE TESTING (test code = 94 mg/dL 70-110 N GLUBED) COVID 19 INHOUSE [id number] 15:04:00 Test Item Value Reference Range Interpretation Comments COVID 19 INHOUSE AG NEGATIVE Negative Per manu facturer, (test code = negative result s should [id number]) be treated aspr esumptive and, if inconsi [...] with COVID-19. UA RFLX MICR CULT IF [id number] 14:02:00 Test Item Value Reference Range Interpretation [...] UACULT) Indication for culture: Dysuria/Frequency- CT ANGIO [id number] 13:00:00 [facility] : 1960 Sex: M Name: OTONIEL HENDERSON : 1960 Age/S: 60 / M [address] Unit #: [id number] Loc: [place] [address] Phys: Anjum Rivera MD Acct: [id number] Dis Date: Status: PRE ER PHONE #: [phone] Exam Date: 10/30/2020 1239 FAX #: Reason: slurred speech EXAMS: CPT: [id number] CT ANGIO NECK [address]447 EXAMINATION: - CT ANGIO HEAD, - CT [...] arteries are unremarkable. No aneurysms are seen inthe anterior or posterior circulations. Orbits and globes [...] Signed Report (CONTINUED) Name: OTONIEL HENDERSON [facility]ly [facility] : 1960 Age/S: 60 / M [address] Unit #: [id number] Loc: [place] [address] Phys: Anjum Rivera MD Acct: [id number] Dis Date: Status: PRE ER PHONE #: [phone] Exam Date: FAX #: Reason: slurred speech EXAMS: CPT: [id number] CT ANGIO NECK 01609 <Continued> stenosis. Findings were personally discussed with [...] Kr CTDI: DLP: Trnscb Date/Time: 10/30/2020 (1300) [email or web address] Print D/T: S: 10/30/2020 (1303) PAGE 2 Signed Report- CT ANGIO [id number] 13:00:00 [facility] : 1960 Sex: M Name: OTONIEL HENDERSON [place] : 1960 Age/S: 60 / M [address] Unit #: [id number] Loc: [place] [address] Phys: Anjum Rivera MD Acct: [id number] Dis Date: Status: PRE ER PHONE #: [phone] Exam Date: 10/30/2020 1233 FAX #: Reason: slurred speech EXAMS: CPT: [id number] CT ANGIO HEAD [address]997 EXAMINATION: - CT ANGIO HEAD, - CT [...] Signed Report (CONTINUED) Name: OTONIEL HENDERSON [facility] : 1960 Age/S: 60 / M [address] Unit #: [id number] Loc: [place] [address] Phys: Anjum Rivera MD Acct: [id number] Dis Date: Status: PRE ER PHONE #: [phone] Exam Date: 10/30/2020 1233 FAX #: Reason: slurred speech EXAMS: CPT: [id number] CT ANGIO HEAD [address]08 <Continued> stenosis. Findings were personally discussed with [...] 10/30/2020 (1303) PAGE 2 Signed ReportBASIC METABOLIC [id number] 12:50:00 Test Item Value Reference Range Interpretation [...] 8.9 MG/DL 8.5-10.1 N Completed by Nursing: [id number] 12:50:00 Test Item Value Reference Range Interpretation [...] suman yby method. Completed by Nursing: NOPROTHROMBIN [id number] 12:47:00 Test Item Value Reference Range Interpretation Comments PT PATIENT (test code = PTP) 10.5 SECONDS 9.3-12.9 N INTERNATIONAL NORMAL RATIO 0.94 INR Unit 0.8-1.2 N (test code = INR) THROMBOPLASTIN TIME [id number] 12:47:00 Test Item Value Reference Range Interpretation Comments THROMBOPLASTIN TIME PARTIAL 27.9 SECONDS 26-35 N (test code = PTT) BASIC METABOLIC [id number] 12:43:00 Test Item Value Reference Range Interpretation [...] 8.9 MG/DL 8.5-10.1 N Completed by Nursing: [id number] 12:43:00 Test Item Value Reference Range Interpretation Comments TROPONIN-I (test code = TROPI) NG/ML 0.000-0.045 Completed by Nursing: NO- CT HEAD/BRAIN W/O [id number] 12:40:00 [facility] : 1960 Sex: M Name: OTONIEL HENDERSON [facility] : 1960 Age/S: 60 / M [address] #: [id number] Loc: [place] [address] Phys: Anjum Rivera MD Acct: [id number] Dis Date: Status: PRE ER PHONE #: [phone] Exam Date: 10/30/2020 1231 FAX #: Reason: Code Stroke EXAMS: CPT: [id number] HEAD/BRAIN W/O CONT 09757 EXAMINATION: - CT HEAD/BRAIN W/O CONT. LOCATION: S17. HISTORY: Code Stroke, right-sided weakness, slurred speech, history of stroke. COMPARISON: None. TECHNIQUE: Routine CT of the head was performed without intravenous contrast as per protocol. One or more the following dose reduction techniques were used: Automated exposure control, adjustment of mA and/or kV accordingto patient size, and use of iterative reconstruction technique. FINDINGS: Brain Parenchyma: No hemorrhage or infarction. No mass effect or midline shift. There are low attenuation regions within the periventricular white matter, this is nonspecific, most commonly associated with microvascular ischemicchanges. Atherosclerotic vascular calcifications. Small region of encephalomalacia involving left thalamus and left occipital lobe. Extra Axial Spaces: Unremarkable. Ventricular System: Unremarkable. Osseous Structures: Unremarkable. Visualized Paranasal Sinuses: Unremarkable. IMPRESSION: No acute intracranial abnormality nor hemorrhage. Findings discussed with MD Miguel at 10/30/2020 12:35 PM. FOR INTERNAL CODING PURPOSES ONLY RESULT CODE: CVRMD PAGE 1 SignedReport (CONTINUED) Name: OTONIEL HENDERSON : 1960 Age/S: 60 / M [address] Unit #: [id number] Loc: [place] [address] Phys: Anjum Rivera MD Acct: [id number] Dis Date: Status: PRE ER PHONE #: [phone] Exam Date: 10/30/2020 1231 FAX #: Reason: Code Stroke EXAMS: CPT: [id number] CT HEAD/BRAIN W/O CONT 64202 <Continued> at 1240 Reported and signed by: Manjinder Antonio M.D. CC: Anjum Rivera MD Technologist:Yohan Love, RT(R)(CT); Kr CTDI: DLP: Trnscb Date/Time:10/30/2020 (1240) [email or web address] Orig Print D/T: S: 10/30/2020 (0263) PAGE 2 Signed ReportCBC W/O [id number] 12:35:00 Test Item Value Reference Range Interpretation [...] 10.70 fL 7.0-9.6 H MPV) GLUCOSE BEDSIDE [id number] 12:29:00 Test Item Value Reference Range Interpretation Comments GLUCOSE BEDSIDE TESTING (test code 140 mg/dL 70-110 H = GLUBED) BASIC METABOLIC [id number] 06:50:00 Test Item Value Reference Range Interpretation [...] mg/dL 8.8-10.2 N = CA) CBC W/AUTO [id number] 06:40:00 Test Item Value Reference Range Interpretation [...] BA#) 0.07 x10 3/uL 0.0-0.20 N VANCOMYCIN [id number] 13:34:00 Test Item Value Reference Range Interpretation Comments VANCOMYCIN TROUGH (test code = 14.4 mcg/ML 10.0-20.0 N VANCT) Spec Comments: RN PLS DRAW VANCO 30MIN BEFORE DOSE DUE ON 01/30BASI METABOLIC [id number] 04:08:00 Test Item Value Reference Range Interpretation [...] code 8.8 mg/dL 8.8-10.2 N = CA) [id number] 04:08:00 Test Item Value Reference Range Interpretation Comments MAGNESIUM (test code = MAG) 1.7 mg/dL 1.4-2.6 N CBC W/AUTO [id number] 03:56:00 Test Item Value Reference Range Interpretation [...] 0.09 x10 3/uL 0.0-0.20 N BASIC METABOLIC [id number] 21:22:00 Test Item Value Reference Range Interpretation [...] mg/dL 8.8-10.2 N = CA) RENAL FUNCTION [id number] 21:22:00 Test Item Value Reference Range Interpretation Comments ALBUMIN (test code = ALB) 3.4 G/DL 3.5-5.0 L PHOSPHOROUS (test code = PHOS) 2.0 mg/dL 2.7-4.5 L LIVER FUNCTION [id number] 21:22:00 Test Item Value Reference Range Interpretation [...] = 63 U/L 45-120 N ALKP) LACTIC [id number] 21:18:00 Test Item Value Reference Range Interpretation Comments LACTIC ACID (test code = LACT) 9.4 mg/dL 4.5-18.0 N PROTHROMBIN [id number] 21:12:00 Test Item Value Reference Range Interpretation [...] 2.5-3.5recurren t systemic emboli sm. THROMBOPLASTIN TIME [id number] 21:12:00 Test Item Value Reference Range Interpretation Comments THROMBOPLASTIN TIME 28.6 SECONDS 26.0-35.9 N INTERPRE TATIVE PARTIAL (test code = : erapeutic PTT) range: Unfractionated heparin:47 - 71 seconds Argatroban:1.5 to 3 times the basel ine PTT PROTHROMBIN [id number] 21:09:00 Test Item Value Reference Range Interpretation [...] 2.5-3.5recurren t systemic emboli sm. THROMBOPLASTIN TIME [id number] 21:09:00 Test Item Value Reference Range Interpretation Comments THROMBOPLASTIN TIME PARTIAL (test SECONDS 26.0-35.9 code = PTT) CBC W/AUTO [id number] 21:08:00 Test Item Value Reference Range Interpretation [...] 0.05 x10 3/uL 0.0-0.20 N CBC W/MANUAL [id number] 05:21:00 Test Item Value Reference Range Interpretation [...] code NORMAL NORMAL = PLTMORPH) RENAL FUNCTION [id number] 05:20:00 Test Item Value Reference Range Interpretation [...] 2.5 mg/dL 2.7-4.5 L code = PHOS) [id number] 05:20:00 Test Item Value Reference Range Interpretation Comments MAGNESIUM (test code = MAG) 1.8 mg/dL 1.4-2.6 N CBC W/MANUAL [id number] 04:48:00 Test Item Value Reference Range Interpretation [...] code = LYMPH) % 20.5-45.5 CBC W/MANUAL [id number] 04:48:00 Test Item Value Reference Range Interpretation [...] (test code = LYMPH) % 20.5-45.5 SURGICAL [id number] 12:52:00 RUN DATE: 01/29/20 [facility] - LAB PAGE 1 RUN TIME: 1252 Specimen Inquiry RUN USER: INTERFACE ------ ------PATIENT: OTONIEL HENDERSON LOC: P.7S POD C U #: [id number] AGE/SX: 59/M ROOM: [facility] RE01/25/20[facility] DR: Cristopher Doty MD : [birth year] BED: 1 DIS: STATUS: ADM IN TLOC: SPEC #: [id number] RECD: 01/28/20 STATUS: FAINA REFabiana #: [id number] SIMON: 01/28/201346 SUBM DR: Cristopher Doty MD ENTERED: 01/28/20 SP TYPE: SURG OTHR DR: Roxanna Primary or Family Physician Mio Gilbert MD No,DocORDERED: PATHGM3, PATHGM5/2, PATH SPEC, H E STAIN HISTOLOGY: TISSUE ID BLK PCS PARISH LEV / PROCEDURE DISPOSITION ____ ___ ___ ___ ___ COLON SEG NTUMR A 18 1 TISSUES: A. COLON SEGMENTAL EIPRJXZDH-XIC-UDUFA - Sigmoid Colon Proximal Rectum Anastomatic Donuts, Small Bowel witCLINICAL HISTORY Diverticulitis FINAL DIAGNOSIS SIGMOID COLON, PROXIMAL [...] cm in diameter), a segment of small intestine(19 cm in length, 2 cm in diameter), and two ring-shaped (donuts) segments of intestine (2 x 1.7 x 1.5 cm, CONTINUED ON NEXT PAGE RUN DATE: 01/29/20 [facility] - LAB PAGE 2 RUN TIME: 1252 SpecimenInquiry RUN USER: INTERFACE SPEC #: [id number] PATIENT: OTONIEL HENDERSON #[id number] (Continued)--------- --- GROSS DESCRIPTION (Continued) 2.4 x 2 x [...] through this region demonstrates increased fibroses in thepericolonic soft tissues associated with possible diverticula. Adjacent to the area of bowel thickening there is an area of mucosal erythema and friability, measuring 1.1 x 0.9 cm. The remainder of the large intestine shows multiple diverticula. The segment of small intestine is looped and joined at both ends by a line of surgical fabby. [...] A9: Small intestine margin, en face A10: Oppositesmall intestine margin, en face A11: Section of small intestine through full thickness defect A12: Section of small intestine with serosal defect A13: Section of small intestine adjacent to serosal defect A14-A15: Entire ring-shaped donut #1 (with metal staple) A16-A18: Ring-shaped donut #2 (with bluesutures) GOLD AND SILVER ASSAYER/th MICROSCOPIC DESCRIPTION Microscopic examination performed. Signed SIGNATURE ON FILE Nita Ashford 01/29/20 1252 END OF REPORT BASIC METABOLIC [id number] 08:29:00 Test Item Value Reference Range Interpretation [...] code 9.2 mg/dL 8.8-10.2 N = CA) [id number] 08:29:00 Test Item Value Reference Range Interpretation Comments MAGNESIUM (test code = MAG) 1.3 mg/dL 1.4-2.6 L CBC W/AUTO [id number] 08:04:00 Test Item Value Reference Range Interpretation [...] x10 3/uL 0.0-0.20 N Novel Coronavirus 2018 [id number] 14:20:00 Test Item Value Reference Range Interpretation Comments Novel Coronavirus NEGATIVE Positive r esults are 2019 nCoV (test indicative o f the presence code = COVID19) vkYCQT-NfW-5 RNA, clinical correlation wit h patient historyand [...] for the identification of SARS-CoV-2 RNA usingthe WakingApp M2000 Sy stem under the FDA Emergen cy UseAuthorizatio n. The testing is perf ormed by personneltraine d in the procedures for the Urb[employer] M2000 molecular diagnostic SARS-CoV-2 assa y in vitro. NEGATIVE Value reported toFirst Name: SAVITA Last Name:[facility] RESULTS READ BACK AND VERIFIEDbyP.LAB.RS, on 01/26/20, @ 1934.- XR ABDOMEN [id number] 14:18:00Patient Name: OTONIEL HENDERSON Unit No: [id number] EXAMS: CPT CODE: [id number] XR ABDOMEN 1V 77740 Abdomen one view supine 01/28/2020 CLINICAL INDICATION: Follow up NGT placement COMPARISON: CT abdomenand pelvis 01/26/2020 LOCATION: W1 IMPRESSION: The side port of an enteric tube projects over the dist al esophagus and should be advanced. There is [...] (mGy): Trscr Dt/Tm: 01/28/2020 (1418) by:[email or web address] Printed Date/Time:01/28/2020 (1421) Name: OTONIEL HENDERSON [facility] Phys: José Antonio Zamora MD [address] : 1960 Age: 59 Sex: [place] [address] Loc: P.0733 1 Exam Date: 01/28/2020 Status: ADM IN PH: FAX: PAGE 1 Signed ReportCOMPREHENSIVE METABOLIC [id number] 07:39:00 Test Item Value Reference Range Interpretation [...] 45-120 N PHOSPHATASE (test code = ALKP) [id number] 07:39:00 Test Item Value Reference Range Interpretation Comments MAGNESIUM (test code = MAG) 1.4 mg/dL 1.4-2.6 N CBC W/AUTO [id number] 07:12:00 Test Item Value Reference Range Interpretation [...] = BA#) 0.10 x10 3/uL 0.0-0.20 N [id number] 15:08:00 Test Item Value Reference Range Interpretation Comments LITHIUM (test 0.5 mmol/L 0.6-1.2 L Detection Breen it = 0.1 code = LITH) <0.1 indicates None DetectedPerform ed At: [facility] [address] [id number] Kyle L MD Ph:[phone] [id number] 15:08:00 Test Item Value Reference Range Interpretation Comments LITHIUM (test 0.5 mmol/L 0.6-1.2 L Detection Breen it = 0.1 code = LITH) <0.1 indicates None DetectedPerform ed At: HD [facility] [address] [id number] Jacky So MD Ph:[phone] Novel Coronavirus 2018 [id number] 07:11:00 Test Item Value Reference Range Interpretation [...] PHOSPHATASE (test code = ALKP) CBC W/AUTO [id number] 04:21:00 Test Item Value Reference Range Interpretation [...] 3/uL 0.0-0.20 N - CT ABD PELVIS [id number] 09:58:00Patient Name: OTONIEL HENDERSON Unit No: [id number] EXAMS: CPT CODE: [id number] CT ABD PELVIS W/CONT 81465 CT abdomen and pelvis with IV contrast. [...] mm on the left. There is no hydronephr osis or hydroureter. There is a septated 3.2 cm right renal cyst. Bowel: There is no bowel obstruction. There is sigmoid colon wall thickening with mild pericolonic stranding and fluid. There are diffuse colonic diverticula. The appendix is within normal limits. Peritoneum: There is no ascites or pneum operitoneum. Pelvis: The urinary bladder appears smooth-walled. The [...] HENDERSON [facility] Phys: [email or web address].02 - Norbert William MD [address] : 1960 Age: 59 Sex: [place] [address] Loc: P.0723 1 ExamDate: 01/26/2020 Status: ADM IN PH: FAX: PAGE 1 Signed Report (CONTINUED) Patient Name: OTONIEL HENDERSON Unit No: [id number] EXAMS: CPT CODE: [id number] CT ABD PELVIS W/CONT 63497 (Continued) at 0958 Reported and signed by: OTONIEL GOTTLIEB M.D. CC: Cristopher Doty MD; Norbert William MD Technologist: ANTONIO Martin(Jeannine)(CT) CTDI: 11.68 DLP: 602 Trscr Dt/Tm: 01/26/2020 (0958) by:[email or web address] Printed Date/Time: 01/26/2020 (1001) Name: OTONIEL HENDERSON [facility] Phys: Norbert Wells MD [address] : 1960 Age: 59 Sex: [place] [address] Loc: P.0723 1 Exam Date: 01/26/2020 Status: ADM INPH: FAX: PAGE 2 Signed ReportCOMPREHENSIVE METABOLIC PANEL [...] PHOSPHATASE (test code = ALKP) CBC W/AUTO [id number] 04:55:00 Test Item Value Reference Range Interpretation [...] 0.15 x10 3/uL 0.0-0.20 N COMPREHENSIVE METABOLIC [id number] 18:44:00 Test Item Value Reference Range Interpretation [...] N PHOSPHATASE (test code = ALKP) PROTHROMBIN [id number] 18:32:00 Test Item Value Reference Range Interpretation [...] 2.5-3.5recurren t systemic emboli sm. CBC W/AUTO [id number] 18:26:00 Test Item Value Reference Range Interpretation [...] 3/uL 0.0-0.[address] head/brain wo contrast [facility] [address] [place] [address] Patient Name: Otoniel Henderson Medical Record#: [id number] Address: [address] [place] [address] City/State/Zip: [place] [address]: Alexis Pettit MD Insurance: Self Pay /Age/Sex: 1960/61/M Admit/Reg Date: 05/20/[address]: Marii Bowers NP Location: [facility]/ PCP: Pcp- Md PAULETTE Buenrostro Date of Service: 05/20/22 Order (s): CT head/brain wo contrast CPT Code: 14732 Report Number: [id number] Reason for Exam: lightheadedness Exam: CT of the brain without contrast. History: Lightheadedness Dictation Location: [facility] Technique: Contiguous axial CTimages were obtained from the skull base through [...] and periventricular white matter hypodensities likely reflect chroni c microvascular ischemic changes. The basal cisterns are patent. There is no mass effect or midline shift. There is no evidence for acute territorial [...] Gottlieb MD 05/20/221919 Signed By: Otoniel Gottlieb MD05/20/222200 TD/TT: 05/20/221919 Tech: ES135 cc: [email or web address]; PCPNO* Marii Bowers NP; Pcp- Md Porter MDXR chest 1V [facility] [address] [place] [address] Patient Name: Otoniel Henderson Medical Record#: [id number] Address: [address] [place] [address] Dr City/State/Zip: [place] [address]: Alexis Pettit MD Insurance: Self Pay /Age/Sex: 1960/61/M Admit/Reg Date: 05/20/[address]: Marii Bowers NP Location: [facility]/ PCP: Pcp-Md PAULETTE Buenrostro Date of Service: 05/20/22 Order (s): XR chest 1V CPT Code: 40920 Report Number: [id number] Reason for Exam: hypotension CHEST 1 VIEW CLINICAL INFORMATION: hypotension COMPARISON: None FINDINGS: The lungs are underexpanded. No airspace consolidation is seen. No pneumothorax or pleural effusion is present. The heart size is normal. The aorta is calcified and slightly tortuous. Old left posterolateral 3-6 rib fractures are noted. A cardiac loop recorder isnoted. IMPRESSION: 1. Shallow inspiration. 2. No acute cardiopulmonary finding is identified. LOCATION: R16 Electronically signed by: Eugenio Elam MD 05/20/2022 5:13 PM CDT Dictated By: Eugenio Elam MD 05/20/221702 Signed By: Eugenio Elam MD 05/20/221715 TD/TT: 703 Tech: SVCRPACS cc: [email or web address]; PCPNO* Marii Bowers NP; Pcp-Md Porter MDEKG ED Electrocardiogram [facility] [address] [place] [address] Patient Name: Otoniel Henderson Medical Record#: [id number] Address: [address] [place] [address] City/State/Zip: [place] [address]: Erickson Abraham MD Phone: Insurance: [facility] Medicare Advantage /Age/Sex: 1960/61/M Medicaid [place] Admit/Reg Date: 05/20/[address]: Marii Bowers NP Location: [address] PCP: Md PAULETTE Dao Date of Service: 05/20/22 Order (s): EKG ED Electrocardiogram CPT Code: 98166 Report Number: [id number] Reason for Exam: hypotension Sinus or ectopic atrial rhythm Short NC interval Summary: Borderline ECG Dictated By: Luis Jean MD 05/20/221810 Signed By: Luis Jean MD 05/21/221822 TD/TT: 05/20/221810 Tech: SVCCPACScc: [email or web address]; PCPNO* Marii Bowers NP; Pcp-Md PAULETTE Buenrostro
--- NOTE | 2022-10-16 17:16 | RAD REPORT ---
EXAM DESCRIPTION: RAD - Knee Right 2 View - 10/16/2022 5:10 pm CLINICAL HISTORY: PAIN COMPARISON: Knee Right 3 View dated 04/22/2018 FINDINGS/IMPRESSION: Right total knee arthroplasty. No hardware complication or fracture. Small knee effusion.
--- NOTE | 2022-10-16 17:17 | RAD REPORT ---
EXAM DESCRIPTION: RAD - Knee Left 2 View - 10/16/2022 5:10 pm CLINICAL HISTORY: PAIN COMPARISON: No comparisons FINDINGS/IMPRESSION: Intact left knee arthroplasty. No hardware complication. No fracture.
--- NOTE | 2022-10-16 17:17 | RAD REPORT ---
EXAM DESCRIPTION: RAD - Shoulder Left 2 View - 10/16/2022 5:10 pm CLINICAL HISTORY: PAIN COMPARISON: No comparisons FINDINGS/IMPRESSION: No acute fracture. No malalignment. No significant focal degenerative changes.
--- NOTE | 2022-10-16 17:48 | EDPHYS ---
Physician Documentation [facility] Name: Gregory Dumont Age: 62 yrs Sex: Male : 1960 Arrival Date: 10/16/2022 Time: 15:33 Bed 20 Private MD: ED Physician Cameron Avery HPI: 10/16 16:31 This 62 yrs old Male presents to ER via Unassigned with complaints of Shoulder Pain. kb 16:31 The patient or guardian complains of decreased range of motion, pain. left shoulder. kb Context: The problem was sustained at home, resulted from from a chronic condition, The patient experiences decreased range of motion, The patient reports no obvious deformity. Onset: The symptoms/episode began/occurred and became worse today. Modifying factors: the symptoms are alleviated by nothing. The symptoms are aggravated by movement. Associated signs and symptoms: The patient has no apparent associated signs or symptoms. Severity of symptoms: At their worst the symptoms were moderate, in the emergency department the symptoms are unchanged. Treatment prior to arrival includes: no previous treatment. The patient has not experienced similar symptoms in the past. The patient has not recently seen a physician. Pt c/o left shoulder and bilateral knee pain that is chronic. Denies injury or fall. Pt normally takes tramadol for this pain. Did not take his tramadol today, wanted to come to the ER instead. Historical: - Allergies: 17:00 No Known Allergies; eh3 - Home Meds: 17:00 acetaminophen 325 mg Oral tab 2 tabs every 4 hours for pain [Active]; amlodipine 2.5 mg eh3 tab 1 tab once daily [Active]; aspirin 81 mg Oral cap 1 cap once daily [Active]; atorvastatin 80 mg oral tab 1 tab once daily [Active]; benzonatate 100 mg oral cap 1 cap 3 times per day [Active]; clopidogrel 75 mg oral tab 1 tab once daily [Active]; duloxetine 30 mg oral CDRS 2 caps once daily [Active]; folic acid 1 mg Oral tab 1 tab once daily [Active]; gabapentin 600 mg oral tab 1 tab 3 times per day for neuropathic pain [Active]; ibuprofen 100 mg Oral tab [Active]; Potassium Chloride 50 mEq Oral 1 cap once daily [Active]; Risperdal 3 mg Oral tab 1 tab once daily [Active]; Risperdal 0.5 mg Oral tab 1 tabs once daily [Active]; tramadol 50 mg Oral tab 1 tab every 8 hours [Active]; trazodone 50 mg Oral tab 1 tab once daily [Active]; - PMHx: 17:00 adhd; Alcoholism; Anxiety; Bipolar disorder; Hypertensive disorder; strokes x 3; eh3 - PSHx: 17:00 colon resection; knee replacements; eh3 - Immunization history:: Adult Immunizations up to date. - Social history:: Smoking status: unknown. ROS: 16:30 Constitutional: Negative for fever, chills, and weight loss. kb 16:30 MS/extremity: Positive for pain, of the anterior aspect of left shoulder, right knee and left knee. 16:30 All other systems are negative. Exam: 16:30 Constitutional: This is a well developed, well nourished patient who is awake, alert, kb and in no acute distress. Head/Face: Normocephalic, atraumatic. ENT: Moist Mucous membranes Cardiovascular: Regular rate and rhythm with a normal S1 and S2. No gallops, murmurs, or rubs. No pulse deficits. Respiratory: Respirations even and unlabored. No increased work of breathing. Talking in full sentences Abdomen/GI: Soft, non-tender. No distention Skin: Warm, dry with normal turgor. Normal color. Neuro: Awake and alert, GCS 15, oriented to person, place, time, and situation. Moves all extremities. Normal gait. Psych: Awake, alert, with orientation to person, place and time. Behavior, mood, and affect are within normal limits. 16:30 Musculoskeletal/extremity: Extremities: grossly normal except: noted in the anterior aspect of left shoulder: pain, tenderness, ROM: intact in all extremities, Circulation is intact in all extremities. Sensation intact. Weight bearing: able to fully bear weight. Vital Signs: 15:45 BP 147 / 81; Pulse 61; Resp 16; Temp 97.9(O); Pulse Ox 97% ; Weight 77.56 kg; Height 6 eh3 ft. 2 in. (187.96 cm); 16:45 BP 145 / 94; Pulse 61; Resp 20; Pulse Ox 95% on R/A; eh3 18:52 BP 153 / 88; Pulse 62; Resp 15 S; Temp 97.9(TE); Pulse Ox 95% on R/A; jl7 15:45 Body Mass Index 21.95 (77.56 kg, 187.96 cm) eh3 MDM: 15:41 Patient medically screened. kb 16:30 Data reviewed: vital signs, nurses notes. Data interpreted: Pulse oximetry: on room air kb is 100 %. Interpretation: normal. 17:47 Counseling: I had a detailed discussion with the patient and/or guardian regarding: the kb historical points, exam findings, and any diagnostic results supporting the discharge/admit diagnosis, radiology results, the need for outpatient follow up, a family practitioner, to return to the emergency department if symptoms worsen or persist or if there are any questions or concerns that arise at home. 10/16 15:48 Order name: Shoulder Left (2 View) XRAY; Complete Time: 17:34 kb 10/16 15:48 Order name: Knee Left 2 View XRAY; Complete Time: 17:34 kb 10/16 15:48 Order name: Knee Right 2 View XRAY; Complete Time: 17:34 kb Administered Medications: 18:52 Drug: Ketorolac 30 mg Route: IM; Site: left deltoid; 7 19:09 Follow up: Response: Pain is decreased 3 Disposition: 10/17 07:02 Co-signature as Attending Physician, Cameron Avery MD. rn Disposition Summary: 10/16/22 17:47 Discharge Ordered Location: Home kb Condition: Stable kb Diagnosis - Pain in left shoulder kb - Pain in left knee kb - Pain in right knee kb Followup: kb - With: Emergency Department - When: As needed - Reason: Worsening of condition Followup: kb - With: Private Physician - When: 2 - 3 days - Reason: Recheck today's complaints, Continuance of care, Re-evaluation by your physician Discharge Instructions: - Discharge Summary Sheet kb - Musculoskeletal Pain kb - Shoulder Pain, [id number] kb Forms: - Medication Reconciliation Form kb - Thank You Letter kb - Antibiotic Education kb - Prescription Opioid Use kb - SBAR form vc1 Signatures: Dispatcher [employer] Lily Colin, FENCE MANUFACTURE SUPERVISOR-C FENCE MANUFACTURE SUPERVISOR-Cameron Winston MD MD rn Leal, Jahala, RN RN jl7 Delma Stratton RN RN 3
--- NOTE | 2022-10-16 17:48 | ER ---
Nurse's Notes [facility] Name: Gregory Dumont Age: 62 yrs Sex: Male : 1960 Arrival Date: 10/16/2022 Time: 15:33 Bed 20 Private MD: Diagnosis: Pain in left shoulder;Pain in left knee;Pain in right knee Presentation: 10/16 15:45 Chief complaint: EMS states: left shoulder, left elbow, and bilateral knee pain. Lives eh3 at [facility] and pt refused all meds today including Tramadol, wanted to come to ED. Coronavirus screen: Vaccine status: Patient reports receiving the 2nd dose of the covid vaccine. Ebola Screen: No symptoms or risks identified at this time. Initial Sepsis Screen: Does the patient meet any 2 criteria? No. Patient's initial sepsis screen is negative. Does the patient have a suspected source of infection? No. Patient's initial sepsis screen is negative. Risk Assessment: Do you want to hurt yourself or someone else? Patient reports no desire to harm self or others. Onset of symptoms was October 16, 2022. 15:45 Method Of Arrival: EMS: [facility] 15:45 Acuity: MARION 3 eh3 Triage Assessment: 15:45 General: Appears in no apparent distress. uncomfortable, Behavior is calm, cooperative, eh3 appropriate for age. Pain: Complains of pain in left shoulder, left elbow, bilateral knees. EENT: No signs and/or symptoms were reported regarding the EENT system. Neuro: Level of Consciousness is awake, alert, obeys commands, Oriented to person, place, time, situation, Speech with expressive aphasia noted. Cardiovascular: Capillary refill < 3 seconds Patient's skin is warm and dry. Respiratory: Airway is patent Respiratory effort is even, unlabored, Respiratory pattern is regular, symmetrical. GI: No signs and/or symptoms were reported involving the gastrointestinal system. Abdomen is round non-distended. : No signs and/or symptoms were reported regarding the genitourinary system. Derm: No signs and/or symptoms reported regarding the dermatologic system. Musculoskeletal: Circulation, motion, and sensation intact. Range of motion: intact in all extremities. Historical: - Allergies: 17:00 No Known Allergies; eh3 - Home Meds: 17:00 acetaminophen 325 mg Oral tab 2 tabs every 4 hours for pain [Active]; amlodipine 2.5 mg eh3 tab 1 tab once daily [Active]; aspirin 81 mg Oral cap 1 cap once daily [Active]; atorvastatin 80 mg oral tab 1 tab once daily [Active]; benzonatate 100 mg oral cap 1 cap 3 times per day [Active]; clopidogrel 75 mg oral tab 1 tab once daily [Active]; duloxetine 30 mg oral CDRS 2 caps once daily [Active]; folic acid 1 mg Oral tab 1 tab once daily [Active]; gabapentin 600 mg oral tab 1 tab 3 times per day for neuropathic pain [Active]; ibuprofen 100 mg Oral tab [Active]; Potassium Chloride 50 mEq Oral 1 cap once daily [Active]; Risperdal 3 mg Oral tab 1 tab once daily [Active]; Risperdal 0.5 mg Oral tab 1 tabs once daily [Active]; tramadol 50 mg Oral tab 1 tab every 8 hours [Active]; trazodone 50 mg Oral tab 1 tab once daily [Active]; - PMHx: 17:00 adhd; Alcoholism; Anxiety; Bipolar disorder; Hypertensive disorder; strokes x 3; eh3 - PSHx: 17:00 colon resection; knee replacements; eh3 - Immunization history:: Adult Immunizations up to date. - Social history:: Smoking status: unknown. Screenin:45 [facility] ED Fall Risk Assessment (Adult) History of falling in the last 3 months, [facility] including since admission No falls in past 3 months (0 pts) Confusion or Disorientation No (0 pts) Intoxicated or Sedated No (0 pts) Impaired Gait Yes (1 pt) Mobility Assist Device Used No (0 pt) Altered Elimination No (0 pt) Score/Fall Risk Level 0 - 2 = Low Risk. Abuse screen: Denies threats or abuse. Denies injuries from another. Nutritional screening: No deficits noted. Tuberculosis screening: No symptoms or risk factors identified. Assessment: 15:45 Reassessment: No changes from previously documented assessment. See triage assessment. [facility] 16:45 Reassessment: Patient appears in no apparent distress at this time. Patient and/or 3 family updated on plan of care and expected duration. Pain level reassessed. Patient is alert, oriented x 3, equal unlabored respirations, skin warm/dry/pink. 17:45 Reassessment: Patient appears in no apparent distress at this time. Patient and/or [facility] family updated on plan of care and expected duration. Pain level reassessed. Patient is alert, oriented x 3, equal unlabored respirations, skin warm/dry/pink. 18:58 Reassessment: Called to give report to [place], nurse could not hear me and hung up. 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 20:21 Reassessment: EMS to provide transportation back to [place]. vc1 Vital Signs: 15:45 BP 147 / 81; Pulse 61; Resp 16; Temp 97.9(O); Pulse Ox 97% ; Weight 77.56 kg; Height 6 3 ft. 2 in. (187.96 cm); 16:45 BP 145 / 94; Pulse 61; Resp 20; Pulse Ox 95% on R/A; eh3 18:52 BP 153 / 88; Pulse 62; Resp 15 S; Temp 97.9(TE); Pulse Ox 95% on R/A; jl7 15:45 Body Mass Index 21.95 (77.56 kg, 187.96 cm) 3 ED Course: 15:33 Patient arrived in ED. rg4 15:41 [facility]C [facility] kb 15:41 Cameron Avery MD is Attending Physician. kb 15:45 Arm band placed on. eh3 15:45 Patient has correct armband on for positive identification. Bed in low position. Call [facility] light in reach. Side rails up X2. Pulse ox on. NIBP on. Door closed. Noise minimized. Warm blanket given. 16:57 Delma Stratton, RN is Primary Nurse. 3 17:00 Triage completed. eh3 17:11 Shoulder Left (2 View) XRAY In Process Unspecified. EDMS 17:11 Knee Left 2 View XRAY In Process Unspecified. EDMS 17:11 Knee Right 2 View XRAY In Process Unspecified. EDMS 18:54 No provider procedures requiring assistance completed. Patient did not have IV access jl7 during this emergency room visit. Administered Medications: 18:52 Drug: Ketorolac 30 mg Route: IM; Site: left deltoid; jl7 19:09 Follow up: Response: Pain is decreased 3 Medication: 18:52 VIS not applicable for this client. jl7 Outcome: 17:47 Discharge ordered by MD. daigle 20:20 Discharged to [facility]. EMS to arrive at 11pm vc1 20:20 Condition: good 20:20 Discharge instructions given to [facility], Instructed on discharge instructions, follow up and referral plans. Demonstrated understanding of instructions, follow-up care. 20:21 Patient left the ED. vc1 Signatures: Dispatcher [employer] EDLily Chavez, FIELD MAP EDITOR-C VERO-Lora Hernandez rg4 Sherman Brown, RN RN jl7 Prachi Phelps RN RN vc1 Delma Stratton RN RN eh3
[2022-10-16 20:26] VITALS: TEMP 97.9
[2022-10-16 20:27] VITALS: O2SAT 95
[2022-10-16 20:29] VITALS: BP 153/88
== END 2022-10-16 20:21 | disposition home or self-care (01) ==
LOC: ER 15:31
DX: M25.512 Pain in left shoulder (principal); M25.562 Pain in left knee; M25.561 Pain in right knee; I10 Essential (primary) hypertension; F10.20 Alcohol dependence, uncomplicated; Z96.653 Presence of artificial knee joint, bilateral
CPT/HCPCS: 96372; 99284

== ENCOUNTER 2024-11-01 10:22 | Emergency (ER) | payer OTHER ==
--- OUTSIDE RECORDS SUMMARY | 2024-11-01 10:33 | XMS REPORT | Continuity of Care Document ---
Author Name Unknown Address [address] [facility] [address] [place] [address] [facility] thconnect Address [address] [facility] [address] [place] [address] Support Name Relationship Address Phone BEATRIZVALARIEANY SP [id number] [place] [address] NAY HENDERSON SP Unknown Family, Family Family/Other [address] [place] [address] Unavailable UN Personal Relationship Unknown Ayala Any Hdez Spouse [address] [place] [address] Unavailable SAROJ DODSON OtherRelationship Unknown UnaLAKSHMI Head OtherRelationship Unknown Unavailab mohamud HENDERSONVERONICAALBERTO Spouse [id number] [place] [address] Unavailable EderkermitMichelle Spouse [address] [facility] [address] [place] [address] ALBERTO HENDERSON Personal Relationship [address] [place], [place] [address] PHYSICIAN, NO Primary Care Physician Unknown Unav ailable MD JACOB TOKOsito Emergency Provider [address] [place] [address] ANY HENDERSON Emergency Contact [address] [place] [address] Unavailable ANY HENDERSON Emergency Contact [address] [address] Unavailable MD ROCHELLE CORDOVA JR Admitting Provider [address] [place] [address] ALBERTO HENDERSON Spouse [address] [place] [address] Unavailable NO EMERGENCY, CONTACT Personal Relationship [address] [facility] [place] [address] ALBERTO HENDERSON X [address] [place] [address] MARY Yang Unknown MARY MONTELONGO Unknown [phone] 2 Care Team Providers Care Spanish Tutor Name Role Phone Laura CALDWELL, Sole Primary Care Physician + [phone] MARIA VICTORIA FLOYD Attending Clinician Unavailable [id number] Attending Clinician Unavailable Lucy Gomes Attending Clinician Unavailable Mio Gilbert Attending Clinician Unavailable DR RUSS RICE Attending Clinician UnavailSOLE Palmer Attending Clinician Unavailable Wanda King MA Attending Clinician Unava Hemalatha Amaya RN Attending Clinician UnavailSole Palmer MD Attending Clinician [phone] Doctor Unassigned, [place] Attending Clinician U Kayleen Shah RN Attending Clinician Unava JAMES Ellis Attending Clinician Unavailcaryn Brunner [facility], Lupis So Attending Clinician [phone] SUMEET CAMARENA Attending Clinician Unavail able ONELIA BERMAN Attending Clinician UnavailJUAN JOSÉ Hunt Attending Clinician Soumya Erickson Mclain Attending Clinician Unavailable RANDEE HARRY Attending Clinician UnaZULMA Lester Attending Clinician Unavailable Nurse, [facility] Attending Clinician Un available EbZulma Espinoza Attending Clinician [phone] Hillary [facility], Ayse Gonzalez Attending Clinician + [phone] Attending Clinician Unavailable Russ Rodriguez MD Attending Clinician [phone] Otoniel Crain MD Attending Clinician + [phone] Kira Goodwin MD Attending Clinician [phone] KIRA GOODWIN Attending Clinician Unavailable Khoa Castro DO Attending Clinician [phone] Rima CALDWELL, Leonardo Waldron Attending Clinician [phone] Yohan Smith CRNA Attending Clinician [phone] Alfonso Garcia Attending Clinician [phone] Jenni CALDWELL, Lynette Rubin Attending Clinician [phone] 2, [facility] Attending Clinician Unavailable MARCE ARMENDARIZ Attending Clinician Unavailab Marce Arauz DO Attending Clinician [phone] Brianda Chen Attending Clinician [phone] GENNY ZAPATA.HJuliana Attending Clinician Unavaila pino Santillan MD, Latasha So Attending Clinician [phone] Delores PIRNCE, Lucia So Attending Clinician Unavail able Shaun Peraza MD Attending Clinician [phone] Gwen Howard MD Attending Clinician [phone] LATASHA SANTILLAN Attending Clinician Unavailabl e TALIA ALATORRE Attending Clinician Unavailable Celi COTTON BREEDER, Talia Attending Clinician [phone] Rancho Bravo MD Attending Clinician [phone] Digna Steen Attending Clinician [phone] Lab, Ang - Db Attending Clinician Unavailable RANCHO BRAVO Attending Clinician Unavail able RANCHO BRAVO Attending Clinician Unavail able DIGNA LITTLEJOHN Attending Clinician Unavailable RAFA FERREIRA Attending Clinician Unavailable Rafa Ferreira DO Attending Clinician [phone] Suraj CALDWELL, Vasu Attending Clinician [phone] VASU RUELAS Attending Clinician Unavailable Zunsrinivasaa_Iza Attending Clinician Unavailable A_Byrd Attending Clinician Unavailable Ximena Valdes Attending Clinician Unavailable ALFONSO GABRIEL Attending Clinician Unavailable Delroy Goodrich RN Attending Clinician Unavail able Melissa BRADLEY, Cristal Yang Attending Clinician [phone] Ibcynthiaunle COTTON BREEDER, Vidausho F Attending Clinician [phone] Gaurav CALDWELL, Adrian Attending Clinician [phone] Sole Sims MD Attending Clinician [phone] Michele CALDWELL, Abbey Attending Clinician [phone] Jada CALDWELL, Rich Attending Clinician [phone] Warren CALDWELL, Adrianna Mcneill Attending Clinician +[phone] Cristopher Doty Attending Clinician Unavailable [id number] Admitting Clinician Unavailable Mio Gilbert Admitting Clinician Unavailable DR RUSS RICE Admitting Clinician UnavailSOLE Palmer Admitting Clinician Unavailable Alexa Flores Admitting Clinician Unavailable [id number] Admitting Clinician Unavailable OTONIEL CRAIN Admitting Clinician MARCE Venegas Admitting Clinician Unavailab mohamud Howard MD, Gwen Admitting Clinician [phone] GWEN HOWARD Admitting Clinician Unavailable RAFA FERREIRA Admitting Clinician Unavailable RANCHO BRAVO Admitting Clinician Unavail able Elba Admitting Clinician Unavailable Caryn_Gustabo Admitting Clinician Unavailable Gaurav CALDWELL, Adrian Admitting Clinician [phone] Physician, No Primary or Family Admitting Clinic beatriz Unavailable Payers Payer Name Policy Type Policy Number Effective Date Expirati on Date Source [place] [id number] 2022 00:00:00 [facility] [id number] 2018 00:00:00 MEDICARE PART A \\T\\ B [id number] 2009 00:00:00 MEDICAID [facility] [id number] 2020 00:00:00 [employer] [facility] HMO [id number] 00:00:00 [facility] STAR PLUS [id number] 00:00:00 0500 [id number] 2023 00:00:00 0700 [id number] 1959 00:00:00 [facility] DUAL COMP HMO D SNP [id number] 2021 00:00:00 [facility] (MEDICARE REPLACEMENT/ADVANTA GE - HMO) [id number] 2021 00:00:00 [facility] MEDICARE SOLUTIONS - MEDICARE COMPLETE (MEDICARE REPLACEMENT HMO) [id number] 2021 00:00:00 [place] B[place]: [place]ANNES[place] [id number] [facility] PLUS (MEDICAID HMO) [id number] 2020 00:00:00 Problems Condition Name Condition Details Condition Category Status Onset Date Resolution Date Last Treatment Date Treating Clinician Comments Source Dehydratio n Dehydratio n Disease Active 06-15 00:00: 00 [facility] Anxiety, generalize d Anxiety, generalize d Disease Active 06-15 00:00: 00 [facility] Bipolar disorder without psychotic features Bipolar disorder without psychotic features Disease Active 06-15 00:00: 00 [facility] HYPOTENSIV E SHOCK HYPOTENSIV E SHOCK Active 06/10/2022 [facility] Diagnosis Active 06-10 00:00: 00 2022-07-08 09:41:00 Jyoti [place] [facility] GIN BILLING Active 06/10/2022 [facility] Diagnosis Active 06-10 00:00: 00 2022-07-09 07:55:00 Jyoti Alfaro Migraine equivalent syndrome Migraine equivalent syndrome Disease Active 05-28 00:00: 00 [facility] Vision changes Vision changes Disease Active 8 00:00: 00 [facility] Primary insomnia Primary insomnia Disease Active 8 00:00: 00 [facility] Duodenal ulcer Duodenal ulcer Disease Active 04-22 00:00: 00 [facility] Chronic left shoulder pain Chronic left shoulder pain Disease Active 04-22 00:00: 00 [facility] Chronic pain syndrome Chronic pain syndrome Disease Active 04-22 00:00: 00 [facility] GI bleed GI bleed Disease Active 24 00:00: 00 [facility] Scabies exposure Scabies exposure Disease Active 6- 00:00: 00 [facility] Stress reaction with psychomoto r agitation Stress reaction with psychomoto r agitation Disease Active 5-18 00:00: 00 [facility] Anger reaction Anger reaction Disease Active 5-18 00:00: 00 [facility] Aphasia as late effect of stroke Aphasia as late effect of stroke Disease Active 5-18 00:00: 00 [facility] Cellulitis , abdominal wall Cellulitis , abdominal wall Disease Active 18 00:00: 00 [facility] ADHD (attention deficit hyperactiv ity disorder), combined type ADHD (attention deficit hyperactiv ity disorder), combined type Disease Active 01-20 00:00: 00 [facility] Bipolar 1 disorder, mixed, mild Bipolar 1 disorder, mixed, mild Disease Active 4-06 00:00: 00 [facility] Lumbar paraspinal muscle spasm Lumbar paraspinal muscle spasm Disease Active 4 00:00: 00 [facility] ROSALEE (acute kidney injury) ROSALEE (acute kidney injury) Disease Active 3-24 00:00: 00 [facility] Hospital discharge follow-up Hospital discharge follow-up Disease Active 3-23 00:00: 00 [facility] Hypotensio n Hypotensio n Disease Active 3-23 00:00: 00 [facility] Orthostati c syncope Orthostati c syncope Disease Active 3-23 00:00: 00 [facility] Dyslipidem ia Dyslipidem ia Disease Active 2-23 00:00: 00 [facility] 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 Disease Active 2-23 00:00: 00 [facility] Medicare annual wellness visit, initial Medicare annual wellness visit, initial Disease Active 2-08 00:00: 00 [facility] Essential hypertensi on Essential hypertensi on Disease Active 2-04 00:00: 00 [facility] Nicotine dependence with current use Nicotine dependence with current use Disease Active 2-04 00:00: 00 [facility] Chronic bilateral low back pain with bilateral sciatica Chronic bilateral low back pain with bilateral sciatica Disease Active 2-04 00:00: 00 [facility] Prediabete s Prediabete s Disease Active 2-04 00:00: 00 [facility] 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 Disease Active 2-04 00:00: 00 [facility] Nicotine dependence with current use Nicotine dependence with current use Disease Active 2-04 00:00: 00 [facility] Pulmonary embolism, bilateral Pulmonary embolism, bilateral Disease Active 6-05 00:00: 00 [facility] Ischemic cerebrovas cular accident (CVA) of frontal lobe Ischemic cerebrovas cular accident (CVA) of frontal lobe Disease Active 0 9-24 00:00: 00 [facility] Chest pain Chest pain Disease Active 9-23 00:00: 00 [facility] Acute right arterial ischemic stroke, middle cerebral artery (MCA) Acute right arterial ischemic stroke, middle cerebral artery (MCA) Disease Active 0 9-23 00:00: 00 [facility] Vapes nicotine containing substance Vapes nicotine containing substance Disease Active 0 4-16 00:00: 00 [facility] Status post bilateral knee replacemen ts Status post bilateral knee replacemen ts Disease Active 2015-10 0-24 00:00: 00 [facility] Bilateral chronic knee pain Bilateral chronic knee pain Disease Active 9-20 00:00: 00 [facility] Cerebral thrombosis Cerebral thrombosis Disease Active 0 3-17 00:00: 00 Overview: Formattin g of this note might be different from the original. 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 [facility] Folliculit is Folliculit is Problem Active [facility] Arthritis Arthritis Problem Active [facility] Bipolar 1 disorder Bipolar 1 disorder Problem Active [facility] Mixed hyperlipid emia Mixed hyperlipid emia Problem Active [facility] Pure hyperchole sterolemia Pure hyperchole sterolemia Problem Active [facility] Primary osteoarthr itis involving multiple joints Primary osteoarthr itis involving multiple joints Problem Active [facility] Smoker Smoker Problem Active [facility] Essential hypertensi on Essential hypertensi on Problem Active [facility] Other chronic pain Other chronic pain Problem Active [facility] Irritabili ty and anger Irritabili ty and anger Problem Active [facility] Elevated blood pressure reading without diagnosis of hypertensi on Elevated blood pressure reading without diagnosis of hypertensi on Problem Active [facility] Encounter for tobacco use cessation counseling Encounter for tobacco use cessation counseling Problem Active [facility] Mild memory disturbanc e Mild memory disturbanc e Problem Active [facility] Paresthesi a of skin Paresthesi a of skin Problem Active [facility] Otalgia of left ear Otalgia of left ear Problem Active [facility] Dementia in other diseases classified elsewhere without behavioral disturbanc e Dementia in other diseases classified elsewhere without behavioral disturbanc e Problem Active [facility] Impacted cerumen of left ear Impacted cerumen of left ear Problem Active [facility] Alzheimer' 's disease, unspecifie d Alzheimer' 's disease, unspecifie d Problem Active [facility] Erectile dysfunctio n, unspecifie d erectile dysfunctio n type Erectile dysfunctio n, unspecifie d erectile dysfunctio n type Problem Active [facility] Hypoglycem ia Hypoglycem ia Problem Active [facility] Simple chronic bronchitis Simple chronic bronchitis Problem Active [facility] Nicotine dependence , cigarettes , uncomplica mann Nicotine dependence , cigarettes , uncomplica mann Problem Active [facility] Primary osteoarthr itis of both knees Primary osteoarthr itis of both knees Problem Active [facility] Seasonal allergic rhinitis, unspecifie d trigger Seasonal allergic rhinitis, unspecifie d trigger Diagnosis Active [facility] Allergies, Adverse Reactions, Alerts Allergy Name Allergy Type Status Severity Reaction(s) Onset Date Inactive Date Treating Clinician Comments Source No Known Drug Allergie s DA Active U 8-04 00:00: 00 [facility] No Known Allergie s DA Active U 1- 00:00: 00 [facility] No Known Allergie s DA Active U 10-30 00:00: 00 [facility] No Known Allergie s DA Active U 4- 00:00: 00 [facility] No Known Allergie s DA Active U 4 00:00: 00 [facility] NO KNOWN ALLERGIE S Drug Class Active [facility] NO KNOWN ALLERGIE S Allergy Active [facility] No Known Allergie s DA Active Unknown [facility] [place] Social History Social Habit Start Date Stop Date Quantity Comments Source History of tobacco use Cigar Smoker [facility] History SDOH Alcohol Std Drinks [facility] History SDOH Alcohol Binge [facility] History SDOH Alcohol Comment [facility] Exposure to SARS-CoV-2 (event) 2022-04-19 00:00:00 2022-04-29 12:31:00 Not sure [facility] Alcohol intake 2022-04-10 00:00:00 2022-04-10 00:00:00 Lifetime non-drinker (finding) [facility] Tobacco use and exposure 2022-04-09 00:00:00 2022-04-09 00:00:00 Never used [facility] History SDOH Alcohol Frequency 2022-04-09 00:00:00 2022-04-09 00:00:00 1 [facility] Cigarettes smoked current (pack per day) - Reported 2021-07-23 00:00:00 2021-07-23 00:00:00 [facility] Cigarette pack-years 2021-07-23 00:00:00 2021-07-23 00:00:00 [facility] Education 2021-03-21 00:00:00 2021-03-21 00:00:00 14 [facility] Sex Assigned At 1960 00:00:00 1960 00:00:00 [facility] Smoking Status Start Date Stop Date Source Former Smoker [facility] Never smoker [facility] Occasional tobacco smoker 2021-07-23 00:00:00 [facility] Medications Ordered Medication Name Filled Medication Name Start Date Stop Date Current Medication? Ordering Clinician Indication Dosage Frequency Signature (SIG) Comments Components Source amLODIPine 5 mg tablet 06-15 00:00: 00 Yes [id number] 2.5mg Take 0.5 tablets by mouth in the morning. [facility] butalbital- aspirin-caf feine per tablet 05-28 00:00: 00 Yes [id number] 1{tbl} Take 1 tablet by mouth every 6 (six) hours as needed for Pain. [facility] acetaminoph en (TYLENOL ARTHRITIS PAIN) 650 mg CR tablet 04-22 00:00: 00 Yes [id number] 650mg Take 1 tablet by mouth every 8 (eight) hours as needed for Pain. [facility] Diclofenac Sodium (VOLTAREN) 1 % gel 04-22 00:00: 00 Yes [id number] Apply to area(s) 4 (four) times daily. Apply 4 g qid [facility] Lidocaine 5 % cream 04-22 00:00: 00 Yes [id number] Apply to area(s) 2 (two) times daily as needed for Pain (scale 4-6). Apply 5g to affected areas BID PRN [facility] tiZANidine 4 mg tablet 04-22 00:00: 00 06-15 00:00 :00 No [id number] TAKE 1 TABLET BY MOUTH EVERY 8 HOURS NEEDED FOR MUSCLE SPASMS [facility] gabapentin (NEURONTIN) 100 MG capsule 04-11 11:44: 44 Yes 100mg [id number] 3D Take 100 mg by mouth 3 (three) times daily. [facility] atorvastati n (LIPITOR) 40 MG tablet 04-11 11:44: 44 Yes 40mg QD Take 40 mg by mouth daily. [facility] pantoprazol e 40 mg EC tablet 04-11 00:00: 00 Yes [facility] ALBUTEROL INHALE 03-25 10:27: 17 Yes 8.5g Inhale 8.5 g every 4 (four) hours. [facility] atomoxetine 40 mg capsule 03-25 10:27: 17 Yes 40mg Take 40 mg by mouth daily. [facility] duloxetine HCl (DULOXETINE ORAL) 03-25 10:27: 17 Yes 30mg Take 30 mg by mouth at bedtime. [facility] permethrin 5 % cream 03-25 00:00: 00 Yes [id number] Apply to area(s) daily. Apply to body from neck down x 8 - 14 H, then wash off. [facility] sildenafil (REVATIO) 20 mg tablet 01-20 00:00: 00 Yes [id number] 20mg Take 1 tablet by mouth as needed (Take 1 tablet by mouth as needed (Erectile Dsyfynctio n). Take 1 Take 30 mins prior to being intimate. Do not exceed 40mg in 24H. Do not mix with any other medication ). [facility] nicotine 7 mg/24 hr patch 12-09 00:00: 00 Yes [id number] 1{patch } Apply 1 Patch to area(s) every 24 (twenty-fo ur) hours. Apply 21mg patch daily x 6 weeks; then apply 14mf patch daily x 2 weeks; then apply 7mg patch daily x 2 weeks. Stop smoking on initiation of therapy [facility] nicotine 21 mg/24 hr patch 12-09 00:00: 00 Yes [id number] 1{patch } Apply 1 Patch to area(s) daily. Apply 21mg patch daily x 6 weeks; then apply 14mf patch daily x 2 weeks; then apply 7mg patch daily x 2 weeks. Stop smoking on initiation of therapy [facility] nicotine 14 mg/24 hr patch 2-23 00:00: 00 Yes [id number] 1{patch } Apply 1 Patch to area(s) every 24 (twenty-fo ur) hours. Apply 21mg patch daily x 6 weeks; then apply 14mf patch daily x 2 weeks; then apply 7mg patch daily x 2 weeks. Stop smoking on initiation of therapy [facility] clopidogreL 75 mg tablet 2 00:00: 00 Yes [id number] 75mg Take 1 tablet by mouth daily. [facility] Flonase Flonase 05-23 00:00: 00 Yes Na Gomes 2 spray in each nostril [facility] amlodipine 2.5 mg tablet Take 1 tablet every day by oral route as directed for 30 days. amlodipine 2.5 mg tablet Take 1 tablet every day by oral route as directed for 30 days. No 1 Q1D amlodipine 2.5 mg tablet Take 1 tablet every day by oral route as directed for 30 days. [facility] atorvastati n 80 mg tablet GIVE 1 TABLET THROUGH ENTERAL TUBE AT BEDTIME atorvastati n 80 mg tablet GIVE 1 TABLET THROUGH ENTERAL TUBE AT BEDTIME No atorvastat in 80 mg tablet GIVE 1 TABLET THROUGH ENTERAL TUBE AT BEDTIME [facility] carvedilol 3.125 mg tablet Take 1 tablet twice a day by oral route as directed for 30 days. carvedilol 3.125 mg tablet Take 1 tablet twice a day by oral route as directed for 30 days. No 1 BID carvedilol 3.125 mg tablet Take 1 tablet twice a day by oral route as directed for 30 days. [facility] diclofenac sodium 75 mg tablet,ju yed release TAKE 1 TABLET BY MOUTH TWICE DAILY WITH MEALS diclofenac sodium 75 mg tablet,ju yed release TAKE 1 TABLET BY MOUTH TWICE DAILY WITH MEALS No diclofenac sodium 75 mg tablet,del ayed release TAKE 1 TABLET BY MOUTH TWICE DAILY WITH MEALS [facility] duloxetine 20 mg capsule,del ayed release TAKE 1 CAPSULE BY MOUTH EVERY NIGHT duloxetine 20 mg capsule,del ayed release TAKE 1 CAPSULE BY MOUTH EVERY NIGHT No duloxetine 20 mg capsule,de layed release TAKE 1 CAPSULE BY MOUTH EVERY NIGHT [facility] duloxetine 30 mg capsule,del ayed release TAKE 1 CAPSULE BY MOUTH AT BEDTIME duloxetine 30 mg capsule,del ayed release TAKE 1 CAPSULE BY MOUTH AT BEDTIME No duloxetine 30 mg capsule,de layed release TAKE 1 CAPSULE BY MOUTH AT BEDTIME [facility] gabapentin 400 mg capsule TAKE 1 CAPSULE BY MOUTH THREE TIMES DAILY NEEDED gabapentin 400 mg capsule TAKE 1 CAPSULE BY MOUTH THREE TIMES DAILY NEEDED No gabapentin 400 mg capsule TAKE 1 CAPSULE BY MOUTH THREE TIMES DAILY NEEDED [facility] mirtazapine 30 mg tablet TAKE 1 TABLET BY MOUTH EVERY NIGHT mirtazapine 30 mg tablet TAKE 1 TABLET BY MOUTH EVERY NIGHT No mirtazapin e 30 mg tablet TAKE 1 TABLET BY MOUTH EVERY NIGHT [facility] risperidone 1 mg tablet TAKE 1 TABLET BY MOUTH THREE TIMES DAILY risperidone 1 mg tablet TAKE 1 TABLET BY MOUTH THREE TIMES DAILY No risperidon e 1 mg tablet TAKE 1 TABLET BY MOUTH THREE TIMES DAILY [facility] tizanidine 2 mg tablet TAKE 1 TABLET BY MOUTH EVERY 8 HOURS NEEDED FOR MUSCLE SPASMS tizanidine 2 mg tablet TAKE 1 TABLET BY MOUTH EVERY 8 HOURS NEEDED FOR MUSCLE SPASMS No tizanidine 2 mg tablet TAKE 1 TABLET BY MOUTH EVERY 8 HOURS NEEDED FOR MUSCLE SPASMS [facility] tramadol 100 mg tablet TAKE 1 TABLET BY MOUTH THREE TIMES DAILY NEEDED FOR SEVERE PAIN tramadol 100 mg tablet TAKE 1 TABLET BY MOUTH THREE TIMES DAILY NEEDED FOR SEVERE PAIN No tramadol 100 mg tablet TAKE 1 TABLET BY MOUTH THREE TIMES DAILY NEEDED FOR SEVERE PAIN [facility] trazodone 100 mg tablet TAKE 1 AND 1/2 TABLETS BY MOUTH EVERY NIGHT trazodone 100 mg tablet TAKE 1 AND 1/2 TABLETS BY MOUTH EVERY NIGHT No trazodone 100 mg tablet TAKE 1 AND 1/2 TABLETS BY MOUTH EVERY NIGHT [facility] Vital Signs Vital Name Observation Time Observation Value Comments Osito patel Weight 2023-05-09 07:00:00 73.57 KG Height 2023-05-03 22:45:00 172.72 CM Weight 2023-05-03 20:41:00 80 KG Systolic blood pressure 2022-06-15 20:18:00 137 mm[Hg] [facility] Diastolic blood pressure 2022-06-15 20:18:00 86 mm[Hg] [facility] Heart rate 2022-06-15 20:18:00 88 /min [facility] Respiratory rate 2022-06-15 20:18:00 18 /min [facility] Body weight 2022-06-15 20:18:00 77.111 kg [facility] BMI 2022-06-15 20:18:00 23.71 kg/m2 [facility] Oxygen saturation in Arterial blood by Pulse oximetry 2022-06-15 20:18:00 96 /min [facility] Systolic blood pressure 2022-06-15 20:18:00 137 mm[Hg] [facility] Diastolic blood pressure 2022-06-15 20:18:00 86 mm[Hg] [facility] Heart rate 2022-06-15 20:18:00 88 /min [facility] Respiratory rate 2022-06-15 20:18:00 18 /min [facility] Body weight 2022-06-15 20:18:00 77.111 kg [facility] BMI 2022-06-15 20:18:00 23.71 kg/m2 [facility] Oxygen saturation in Arterial blood by Pulse oximetry 2022-06-15 20:18:00 96 /min [facility] HEIGHT 2022-04-09 20:00:00 180.3 cm WEIGHT 2022-04-09 20:00:00 80.65 kg HEIGHT 2022-04-09 20:00:00 180.3 cm WEIGHT 2022-04-09 20:00:00 80.65 kg BP Diastolic 2022-02-09 00:00:00 86 mm[Hg] Dis [facility] BP Systolic 2022-02-09 00:00:00 132 mm[Hg] Disp [facility] Systolic blood pressure 2022-04-11 07:17:00 138 mm[Hg] [facility] Diastolic blood pressure 2022-04-11 07:17:00 69 mm[Hg] [facility] Heart rate 2022-04-11 07:17:00 81 /min [facility] Body temperature 2022-04-11 07:17:00 36.28 Terri [facility] Respiratory rate 2022-04-11 07:17:00 18 /min [facility] Oxygen saturation in Arterial blood by Pulse oximetry 2022-04-11 07:17:00 95 /min [facility] Body height 2022-04-09 20:00:00 180.3 cm [facility] Body weight 2022-04-09 20:00:00 80.65 kg [facility] BMI 2022-04-09 20:00:00 24.80 kg/m2 [facility] Procedures Procedure Date / Time Performed Performing Clinician Source [facility] 2022-08-03 05:01:00 Doctor Valery seaysitonged, [place] [facility] 2022-07-22 05:01:00 Doctor Valery seaysitonged, [place] [facility] 2022-06-28 05:01:00 Doctor Valery seaysigned, [place] [facility] 2022-06-22 05:01:00 Doctor Valery seaysitonged, [place] [facility] 2022-05-03 05:01:00 Doctor Valery seaysitonged, [place] [facility] 2022-04-23 05:01:00 Doctor Valery moreno, [place] [facility] PREPARE LEUKO-REDUCED RBC 2022-04-11 23:54:00 Otoniel Crain [facility] BASIC METABOLIC PANEL 2022-04-11 03:48:00 Yusuf Crain [facility] HEPATIC FUNCTION PANEL 2022-04-11 03:48:00 [facility] W[facility] & AUTO DIFFERENTIAL 2022-04-11 03:48:00 Otoniel Crain [facility] CBC W/PLT COUNT & AUTO DIFFERENTIAL 2022-04-11 03:48:00 [facility] - ENDOSCOPY URL 2022-04-10 12:42:42 Khoa Castro [facility] EGD (ESOPHAGOGASTRODUODENOS COPY) 2022-04-10 12:33:00 Khoa Castro [facility] TRANSFUSE LEUKO-REDUCED RED BLOOD CELLS 2022-04-10 07:00:00 [facility]OL[facility] 2022-04-10 04:54:00 Yusuf Crain [facility] HEPATIC FUNCTION PANEL 2022-04-10 04:54:00 Darío Crain [facility] CBC W/PLT COUNT & AUTO DIFFERENTIAL 2022-04-10 04:54:00 Breann [facility] CBC W/PLT COUNT & AUTO DIFFERENTIAL 2022-04-10 04:54:00 Breann [place] [facility]H, MANUAL 2022-04-10 01:23:00 Shagufta Driscoll [facility] CT BRAIN WITHOUT IV CONTRAST 2022-04-09 23:05:00 [facility] BASIC METABOLIC PANEL 2022-04-09 22:27:00 Yusuf Crain [facility] HEPATIC FUNCTION PANEL 2022-04-09 22:27:00 Darío Crain [facility] MAGNESIUM 2022-04-09 22:27:00 [facility]iel [facility] PHOSPHORUS 2022-04-09 22:27:00 Breann [facility] PROTHROMBIN TIME/INR 2022-04-09 22:27:00 Breann [facility] CBC W/PLT COUNT & AUTO DIFFERENTIAL 2022-04-09 22:27:00 Breann [facility] TYPE AND SCREEN, AUTOMATED 2022-04-09 22:27:00 Breann [facility] CBC W/PLT COUNT & AUTO DIFFERENTIAL 2022-04-09 22:27:00 Breann [facility] [id number] 2020-10-30 00:00:00 SPANI [facility] [id number] 2020-01-28 00:00:00 WEAMA.02 [facility] [id number] 2020-01-28 00:00:00 WEAMA.02 [facility] [id number] 2020-01-28 00:00:00 WEAMA.02 [facility] [id number] 2020-01-28 00:00:00 WEAMA.02 [facility] [id number] 2020-01-28 00:00:00 WEAMA.02 [facility] Knee Arthroscopy/surgery [facility] Plan of Care Planned Activity Planned Date Details Comments Source Future Scheduled Test 2022-06-17 00:00:00 INFLUENZA VACCINE (#1) [code = INFLUENZA VACCINE (#1)] [facility] Future Scheduled Test 2022-06-17 00:00:00 INFLUENZA VACCINE (#1) [code = INFLUENZA VACCINE (#1)] [facility] Future Scheduled Test 2021-10-17 00:00:00 DEPRESSION SCREENING (12+) [code = DEPRESSION SCREENING (12+)] [facility] Future Scheduled Test 2021-10-17 00:00:00 Medicare IPPE (WELCOME TO MEDICARE) [code = Medicare IPPE (WELCOME TO MEDICARE)] [facility] Future Scheduled Test 2021-10-17 00:00:00 DEPRESSION SCREENING (12+) [code = DEPRESSION SCREENING (12+)] [facility] Future Scheduled Test 2021-10-17 00:00:00 Medicare IPPE (WELCOME TO MEDICARE) [code = Medicare IPPE (WELCOME TO MEDICARE)] [facility] Future Scheduled Test 2012 00:00:00 SHINGLES VACCINES (1 of 2) [code = SHINGLES VACCINES (1 of 2)] [facility] Future Scheduled Test 2012 00:00:00 SHINGLES VACCINES (1 of 2) [code = SHINGLES VACCINES (1 of 2)] [facility] Future Scheduled Test 1997 00:00:00 Lipid panel (procedure) [code = 65575038] [facility] Future Scheduled Test 1997 00:00:00 Lipid panel (procedure) [code = 63920126] [facility] Future Scheduled Test 1981 00:00:00 DTAP/TDAP/TD VACCINES (1 - Tdap) [code = DTAP/TDAP/TD VACCINES (1 - Tdap)] [facility] Future Scheduled Test 1981 00:00:00 DTAP/TDAP/TD VACCINES (1 - Tdap) [code = DTAP/TDAP/TD VACCINES (1 - Tdap)] [facility] Future Scheduled Test 1980 00:00:00 HEPATITIS C SCREENING [code = HEPATITIS C SCREENING] [facility] Future Scheduled Test 1980 00:00:00 HEPATITIS C SCREENING [code = HEPATITIS C SCREENING] [facility] Future Scheduled Test 1974 00:00:00 Tobacco Cessation Counseling and Screening (12+) [code = Tobacco Cessation Counseling and Screening (12+)] [facility] Future Scheduled Test 1962 00:00:00 COVID-19 VACCINE (#1) [code = COVID-19 VACCINE (#1)] [facility] Future Scheduled Test 1962 00:00:00 COVID-19 VACCINE (#1) [code = COVID-19 VACCINE (#1)] [facility] Future Scheduled Test 1962 00:00:00 CT Colonography (combo) [code = CT Colonography (combo)] [facility] Future Scheduled Test 1962 00:00:00 Screening for malignant neoplasm of colon (procedure) [code = 083686087] [facility] Future Scheduled Test 1962 00:00:00 Screening for malignant neoplasm of colon (procedure) [code = 403050926] [facility] Future Scheduled Test 1962 00:00:00 Screening for malignant neoplasm of colon (procedure) [code = 849577558] [facility] Future Scheduled Test 1962 00:00:00 Screening for malignant neoplasm of colon (procedure) [code = 912826192] [facility] Future Scheduled Test 1962 00:00:00 Sigmoidoscopy [code = Sigmoidoscopy] [facility] Future Scheduled Test 1962 00:00:00 CT Colonography (combo) [code = CT Colonography (combo)] [facility] Future Scheduled Test 1962 00:00:00 Screening for malignant neoplasm of colon (procedure) [code = 851791135] [facility] Future Scheduled Test 1962 00:00:00 Screening for malignant neoplasm of colon (procedure) [code = 265642880] [facility] Future Scheduled Test 1962 00:00:00 Screening for malignant neoplasm of colon (procedure) [code = 532155560] [facility] Future Scheduled Test 1962 00:00:00 Screening for malignant neoplasm of colon (procedure) [code = 271974736] [facility] Future Scheduled Test 1962 00:00:00 Sigmoidoscopy [code = Sigmoidoscopy] [facility] Instructions Dispatch [facility] Encounters Start Date/Time End Date/Time Encounter Type Admission Type Attending [facility] Care Department Encounter ID Source 2023-06-06 11:51:08 Inpatient TEXANA TEXANA [id number] [facility] 2023-05-24 08:59:48 Inpatient TEXANA TEXANA [id number] [facility] 2023-05-23 12:41:34 Inpatient TEXANA TEXANA [id number] [facility] 2023-05-03 17:20:36 Outpatient [facility] [id number] [facility] 2022-10-07 13:56:04 Outpatient [facility] [id number] [facility] 2022-06-29 06:43:25 Outpatient [facility] [id number] [facility] 2022-06-28 00:00:00 Hospital Encounter [facility] [id number] [facility] 2022-06-23 06:55:39 Outpatient [facility] [id number] [facility] 2022-06-17 15:06:08 Outpatient [facility] [id number] [facility] 2022-06-15 03:04:43 Outpatient [facility] [id number] [facility] 2022-06-14 12:31:39 Outpatient [facility] [id number] [facility] 2022-04-23 02:50:32 Outpatient MARIA VICTORIA FLOYD [facility] [id number] [facility] 2022-04-22 10:56:19 Outpatient [facility] [id number] [facility] 2022-04-20 02:10:13 Outpatient MARIA VICTORIA FLOYD [facility] [id number] [facility] 2022-01-25 11:56:41 Outpatient [facility] [id number] [facility] 2022-01-19 03:16:47 Outpatient MARIA VICTORIA FLOYD [facility] [id number] [facility] 2022-01-18 12:57:31 Outpatient [facility] [id number] [facility] 2022-01-01 15:24:56 Outpatient MARIA VICTORIA FLOYD [facility] [id number] [facility] 2021-11-13 15:22:56 Outpatient [facility] [id number] [facility] 2021-11-12 10:42:58 Outpatient [id number] [facility] CVA [id number] [facility] 2021-11-12 10:40:46 Outpatient 3 [id number] [facility] REF [id number] [facility] 2021-11-11 11:17:41 Outpatient Gomes, Na STLMLC STLMLC [id number] [facility] 2021-11-11 11:00:18 Outpatient Gomse, Lucy STLMLC STLMLC [id number] [facility] 2021-11-11 11:00:09 Outpatient Mireya Na STLMLC STLMLC [id number] [facility] 2021-08-16 23:22:07 Emergency [facility] [id number] [facility] 2021-08-16 15:06:52 Emergency [facility] [id number] [facility] 2021-08-15 23:38:22 Emergency [facility] [id number] [facility] 2021-08-15 15:04:08 Emergency [facility] [id number] [facility] 2021-08-15 04:16:09 Emergency [facility] [id number] [facility] 2021-08-14 18:54:20 Emergency [facility] [id number] [facility] ity [facility] 2021-08-14 13:29:29 Emergency [facility] [id number] [facility] 2021-08-14 10:34:33 Emergency [facility] [id number] [facility] 2021-08-14 08:51:36 Emergency [facility] [id number] [facility] 2021-08-14 08:12:26 Emergency [facility] [id number] [facility] 2020-10-30 12:19:00 Inpatient HCAPM REGINALDO [id number] [facility] 2020-01-25 16:41:00 Inpatient Mio Frances [facility]01 [id number] [facility] 2023-05-03 22:04:00 2023-05-13 16:42:00 Inpatient RUSS YIN [facility] [id number] [facility] 2022-12-14 09:40:00 2022-12-14 09:40:00 Outpatient SOLE HINTON [facility] [id number] [facility] 2022-11-09 00:00:00 2022-11-09 00:00:00 Case Management Wanda King 1.2.840.114 350.1.13.10 4.2.7.2.[id number] [facility] 2022-10-29 00:00:00 2022-10-29 00:00:00 Outpatient R LAURA SOLE [facility] [id number] [facility] 2022-10-25 00:00:00 2022-10-25 00:00:00 Case Management Hemalatha Murray GUSTAFSON STANISLAVEMA 1.2.840.114 350.1.13.10 4.2.7.2.686 [id number] [facility] 2022-09-23 14:40:00 2022-09-23 14:40:00 Outpatient R TANIAGEOFFREYSOLE BREWER [facility] [id number] [facility] 2022-09-23 14:40:00 2022-09-23 14:40:00 Outpatient R TANIAANGELI SOLE [facility] [id number] [facility] 2022-09-23 14:40:00 2022-09-23 14:40:00 Outpatient R TANIAGEOFFREYSOLE BREWER [facility] [id number] [facility] 2022-09-16 00:00:00 2022-09-16 00:00:00 Telephone Sole Sanchez [facility] 1.2.840.114 350.1.13.10 4.2.7.2.686 [id number] [facility] 2022-09-15 00:00:00 2022-09-15 00:00:00 Case Management Hemalatha Murray ROMÁN GUSTA[facility]ON PLA[facility] 1.2.840.114 350.1.13.10 4.2.7.2.686 [id number] [facility] 2022-08-27 08:00:00 2022-08-27 08:00:00 Outpatient R TANIAGEOFFREYSOLE BREWER [facility] [id number] [facility] 2022-08-27 08:00:00 2022-08-27 08:00:00 Outpatient R LAURA [facility] [id number] [facility] 2022-08-03 00:00:00 2022-08-03 00:00:00 Orders Only Doctor Unassigned, [place] [facility] 1.2.840.114 350.1.13.10 4.2.7.2.686 [id number] [facility] 2022-07-26 00:00:00 2022-07-26 00:00:00 Telephone Sole Sanchez [facility] 1.2840.114 350.1.13.10 4.2.7.2.686 [id number] [facility] 2022-07-23 00:00:00 2022-07-23 00:00:00 Telephone Kayleen Rodriguez [facility] 1.2840.114 350.1.13.10 4.2.7.2.686 [id number] [facility] 2022-07-22 00:00:00 2022-07-22 00:00:00 Orders Only Doctor Unassigned, [place] [facility] 1.2840.114 350.1.13.10 4.2.7.2.686 [id number] [facility] 2022-07-20 00:00:00 2022-07-20 00:00:00 Telephone Sole Sanchez [facility] 1.2840.114 350.1.13.10 4.2.7.2.686 [id number] [facility] 2022-07-13 10:00:00 2022-07-13 10:00:00 Outpatient JAMES HARMON [facility] [id number] [facility] 2022-07-06 00:00:00 2022-07-06 00:00:00 Patient Outreach Lupis Brunner [facility] 1.2840.114 350.1.13.10 4.2.7.2.686 [id number] [facility] 2022-06-29 00:00:00 2022-06-29 00:00:00 Orders Only Doctor Unassigned, [place] [facility] 1.2.840.114 350.1.13.10 4.2.7.2.686 [id number] [facility] 2022-06-28 00:00:00 2022-06-28 00:00:00 Telephone Sole Sanchez [facility] 1.2.840.114 350.1.13.10 4.2.7.2.686 [id number] [facility] 2022-06-28 00:00:00 2022-06-28 00:00:00 Orders Only Doctor Unassigned, [place] [facility] 1.2840.114 350.1.13.10 4.2.7.2.686 [id number] [facility] 2022-06-23 00:00:00 2022-06-23 00:00:00 Refill Sole Sanchez [facility] 1.2.840.114 350.1.13.10 4.2.7.2.686 [id number] [facility] 2022-06-22 09:00:00 2022-06-22 09:00:00 Outpatient R SOLE SANCHEZ [facility] [id number] [facility] 2022-06-22 00:00:00 2022-06-22 00:00:00 Telephone Sole Sanchez [facility] 1.2.840.114 350.1.13.10 4.2.7.2.686 [id number] [facility] 2022-06-22 00:00:00 2022-06-22 00:00:00 Orders Only Doctor Unassigned, [place] [facility] 1.2.840.114 350.1.13.10 4.2.7.2.686 [id number] [facility] 2022-06-16 00:00:00 2022-06-16 00:00:00 Patient Outreach Lupis Brunner [facility] 1.2.840.114 350.1.13.10 4.2.7.2.686 [id number] [facility] 2022-06-15 15:20:00 2022-06-15 16:09:48 Outpatient R OSLE SANCHEZ [facility] [id number] [facility] 2022-06-15 15:20:00 2022-06-15 16:09:48 Office Visit Sole Sanchez [facility] 1.2.840.114 350.1.13.10 4.2.7.2.686 [id number] [facility] 2022-06-15 15:20:00 2022-06-15 16:09:48 Outpatient R SOLE SANCHEZ [facility] [id number] [facility] 2022-06-15 15:20:00 2022-06-15 16:09:48 Office Visit Sole Sanchez [facility] 1.2.840.114 350.1.13.10 4.2.7.2.686 [id number] [facility] 2022-06-15 15:20:00 2022-06-15 15:20:00 Outpatient R SOLE SANCHEZ [facility] [id number] [facility] 2022-06-15 15:20:00 2022-06-15 15:20:00 Outpatient R SOLE SANCHEZ [facility] [id number] [facility] 2022-06-15 15:20:00 2022-06-15 15:20:00 Outpatient R SOLE SANCHEZ [facility] [id number] [facility] 2022-06-10 14:17:00 2022-06-12 17:41:00 Outpatient E SUMEET CAMARENA [facility] [id number] [facility] 2022-06-10 11:09:00 2022-06-10 23:59:00 Outpatient ONELIA BERMAN [facility] HARDY [id number] [facility] 2022-06-10 10:40:00 2022-06-10 10:40:00 Outpatient R JUAN JOSÉ GARCIA [facility] [id number] [facility] 2022-06-09 00:00:00 2022-06-09 00:00:00 Orders Only Doctor Unassigned, [place] [facility] 1..840.114 350.1.13.10 4.2.7.2.686 [id number] [facility] 2022-06-08 11:02:05 2022-06-08 23:59:00 Outpatient R SOLE SANCHEZ [facility] [id number] [facility] 2022-06-08 11:02:05 2022-06-08 23:59:00 Hospital Encounter TanialexusSole guerra [facility] 1..840.114 350.1.13.10 4.2.7.2.686 [id number] [facility] 2022-06-08 11:02:05 2022-06-08 23:59:00 Outpatient R SOLE SANCHEZ [facility] [id number] [facility] 2022-06-08 00:00:00 2022-06-08 00:00:00 Telephone [facility]ole Sanchez [facility] 1..840.114 350.1.13.10 4.2.7.2.686 [id number] [facility] 2022-06-03 00:00:00 2022-06-03 00:00:00 Orders Only Doctor Unassigned, [place] [facility] 1.2.840.114 350.1.13.10 4.2.7.2.686 [id number] [facility] 2022-05-28 14:20:00 2022-05-28 14:57:59 Outpatient R SOLE SANCHEZ [facility] [id number] [facility] 2022-05-28 14:20:00 2022-05-28 14:57:59 Office Visit Sole Sanchez [facility] 1..840.114 350.1.13.10 4.2.7.2.686 [id number] [facility] 2022-05-25 00:00:00 2022-05-25 00:00:00 Telephone Sole Sanchez [facility] 1..840.114 350.1.13.10 4.2.7.2.686 [id number] [facility] 2022-05-20 23:02:00 2022-05-22 16:15:00 Inpatient Emergency Erickson Abraham [facility] Medical Service [id number] [facility] 2022-05-21 00:00:00 2022-05-21 00:00:00 Orders Only Doctor Unassigned, [place] [facility] 1..840.114 350.1.13.10 4.2.7.2.686 [id number] [facility] 2022-05-20 23:02:00 2022-05-20 16:26:00 Inpatient Emergency Erickson Abraham [facility] Medical Service [id number] [facility] 2022-05-19 11:00:00 2022-05-19 11:00:00 Outpatient R SOLE SANCHEZ [facility] [id number] [facility] 2022-05-15 00:00:00 2022-05-15 00:00:00 Refill Laura Peter [facility] 1.2.840.114 350.1.13.10 4.2.7.2.686 [id number] [facility] 2022-05-11 00:00:00 2022-05-11 00:00:00 Orders Only Doctor Unassigned, [place] [facility] 1.2.840.114 350.1.13.10 4.2.7.2.686 [id number] [facility] 2022-05-11 00:00:00 2022-05-11 00:00:00 Telephone Sole Sanchez [facility] 1.2.840.114 350.1.13.10 4.2.7.2.686 [id number] [facility] 2022-05-03 10:30:00 2022-05-03 10:30:00 Outpatient RANDEE HINDS [facility] [id number] [facility] 2022-05-03 00:00:00 2022-05-03 00:00:00 Telephone Sole Sanchez [facility] 1.2.840.114 350.1.13.10 4.2.7.2.686 [id number] [facility] 2022-05-03 00:00:00 2022-05-03 00:00:00 Orders Only Doctor Unassigned, [place] [facility] 1.2.840.114 350.1.13.10 4.2.7.2.686 [id number] [facility] 2022-04-29 12:30:00 2022-04-29 13:00:19 Outpatient ZULMA WANG [facility] [id number] [facility] 2022-04-29 12:30:00 2022-04-29 13:00:19 Outpatient ZULMA WANG [facility] [id number] [facility] 2022-04-29 12:30:00 2022-04-29 13:00:19 Outpatient R ZULMA BRIAN [facility] [id number] [facility] 2022-04-29 12:30:00 2022-04-29 12:50:00 Nurse Visit Nurse, [facility] [place] [facility] 1..840.114 [id number] [place] [facility] [facility] 2022-04-23 00:00:00 2022-04-23 00:00:00 Orders Only Doctor Unassigned, [facility] 1..840.114 350.1.13.10 4.2.7.2.686 [id number] [facility] 2022-04-22 13:20:00 2022-04-22 14:02:05 Outpatient R SOLE SANCHEZ [facility] [id number] [facility] 2022-04-22 13:20:00 2022-04-22 14:02:05 Office Visit Sloe Sanchez [facility] 1..840.114 350.1.13.10 4.2.7.2.686 [id number] [facility] 2022-04-22 13:20:00 2022-04-22 14:02:05 Outpatient R SOLE SANCHEZ [facility] [id number] [facility] 2022-04-22 13:20:00 2022-04-22 13:20:00 Outpatient R SOLE SANCHEZ [facility] [id number] [facility] 2022-04-22 00:00:00 2022-04-22 00:00:00 Telephone Sole Sanchez [facility] 1..840.114 350.1.13.10 4.2.7.2.686 [id number] [facility] 2022-04-22 00:00:00 2022-04-22 00:00:00 Patient Outreach Ayse Thornton [facility] 1.2.114 350.1.13.10 4.2.7.2.686 [id number] [facility] 2022-04-22 00:00:00 2022-04-22 00:00:00 Orders Only Doctor Unassigned, [facility] 1.0.114 350.1.13.10 4.2.7.2.686 [id number] [facility] 2022-04-21 05:02:00 2022-04-21 05:02:00 Outpatient [id number] 3 DISP DISP [id number] [facility] 2022-04-21 00:00:00 2022-04-21 00:00:00 Orders Only Doctor Unassigned, [facility] 1.0.114 350.1.13.10 4.2.7.2.686 [id number] [facility] 2022-04-19 00:00:00 2022-04-19 00:00:00 Orders Only Doctor Unassigned, [facility] 1.20.114 350.1.13.10 4.2.7.2.686 [id number] [facility] 2022-04-15 08:21:09 2022-04-15 23:59:00 Outpatient R SOLE SANCHEZ [facility] [id number] [facility] 2022-04-15 08:21:09 2022-04-15 23:59:00 Hospital Encounter Sole Sanchez [facility] 1.20.114 350.1.13.10 4.2.7.2.686 [id number] [facility] 2022-04-15 08:21:09 2022-04-15 23:59:00 Outpatient R SOLE SANCHEZ [facility] [id number] [facility] 2022-04-15 08:21:09 2022-04-15 23:59:00 Outpatient R SOLE SANCHEZ [facility] [id number] [facility] 2022-04-15 08:16:19 2022-04-15 08:20:00 Hospital Encounter Laura [facility] 1.2.840.114 350.1.13.10 4.2.7.2.686 [id number] [facility] 2022-04-15 08:15:08 2022-04-15 08:15:08 Outpatient R LAURA [facility] [id number] [facility] 2022-04-15 08:15:08 2022-04-15 08:15:08 Hospital Encounter Laura [facility] 1.2.840.114 350.1.13.10 4.2.7.2.686 [id number] [facility] 2022-04-12 00:00:00 2022-04-12 00:00:00 Telephone [facility] 1.2.840.114 350.1.13.10 4.2.7.2.686 [id number] 044 [id number] [facility] 2022-04-12 00:00:00 2022-04-12 00:00:00 Telephone Laura [facility] 1.2.840.114 350.1.13.10 4.2.7.2.686 [id number] [id number] [facility] 2022-04-09 19:43:00 2022-04-11 11:44:00 Hospital Encounter Russ Cannon, Otoniel Goodwin, Kira [facility] [id number] [facility] 2022-04-09 19:43:00 2022-04-11 11:44:00 Inpatient ER KIRA GOODWIN [facility] [id number] [facility] 2022-04-11 00:00:00 2022-04-11 00:00:00 Telephone Sole Sanchez [facility] 1.2.840.114 350.1.13.10 4.2.7.2.686 [id number] [facility] 2022-04-10 12:40:00 2022-04-10 13:10:00 Surgery Khoa Castro [facility] [id number] [facility] 2022-04-10 12:33:00 2022-04-10 12:43:00 Anesthesia Event Leonardo Abarca Jose Luis [facility] [id number] [facility] 2022-04-10 00:00:00 2022-04-10 00:00:00 Travel [facility] [id number] [facility] 2022-04-09 00:00:00 2022-04-09 00:00:00 Telephone Sole Sanchez [facility] 1.2.840.114 350.1.13.10 4.2.7.2.686 [id number] [facility] 2022-04-06 11:00:00 2022-04-06 11:00:00 Outpatient MARIA VICTORIA FLOYD [facility] [id number] [facility] 2022-04-06 00:00:00 2022-04-06 00:00:00 Telephone TaniageoffreySole brewer [facility] 1.2.840.114 350.1.13.10 4.2.7.2.686 [id number] [facility] 2022-04-06 00:00:00 2022-04-06 00:00:00 Refill Alfonso Gabriel [facility] 1.2.840.114 350.1.13.10 4.2.7.2.686 [id number] [facility] 2022-04-06 00:00:00 2022-04-06 00:00:00 Telephone Lynette Arteaga [facility] 1.2.840.114 350.1.13.10 4.2.7.2.686 [id number] [facility] 2022-04-05 00:00:00 2022-04-05 00:00:00 Telephone Sole Sanchez [facility] 1.2.840.114 350.1.13.10 4.2.7.2.686 [id number] [id number] [facility] 2022-04-01 00:00:00 2022-04-01 00:00:00 Telephone Sole Sanchez [facility] 1.2.840.114 350.1.13.10 4.2.7.2.686 [id number] [id number] [facility] 2022-04-01 00:00:00 2022-04-01 00:00:00 Orders Only Doctor Unassigned, [facility] 1.2.840.114 350.1.13.10 4.2.7.2.686 [id number] [facility] 2022-03-29 00:00:00 2022-03-29 00:00:00 Refill Sole Sanchez [facility] 1.2.840.114 350.1.13.10 4.2.7.2.686 [id number] [facility] 2022-03-25 13:00:00 2022-03-25 13:15:00 Field Service Consultant Visit 2, Adc Lab TiburcioSole brewer [facility] 1.2.840.114 350.1.13.10 4.2.7.2.686 [id number] [facility] 2022-03-25 10:40:00 2022-03-25 11:50:35 Outpatient R SOLE SANCHEZ [facility] [id number] [facility] 2022-03-25 10:40:00 2022-03-25 11:50:35 Office Visit Sole Sanchez [facility] 1.2.840.114 350.1.13.10 4.2.7.2.686 [id number] [facility] 2022-03-25 10:40:00 2022-03-25 10:40:00 Outpatient R SOLE SANCHEZ [facility] [id number] [facility] 2022-03-25 10:40:00 2022-03-25 10:40:00 Outpatient R SOLE SANCHEZ [facility] [id number] [facility] 2022-03-25 10:40:00 2022-03-25 10:40:00 Outpatient R SOLE SANCHEZ [facility] [id number] [facility] 2022-03-25 10:40:00 2022-03-25 10:40:00 Outpatient R SOLE SANCHEZ [facility] [id number] [facility] 2022-03-18 00:00:00 2022-03-18 00:00:00 Refill Sole Sanchez [facility] 1.2.840.114 350.1.13.10 4.2.7.2.686 [id number] [facility] 2022-03-08 00:00:00 2022-03-08 00:00:00 Telephone Sole Sanchez [facility] 1.2.840.114 350.1.13.10 4.2.7.2.686 [id number] [facility] 2022-03-08 00:00:00 2022-03-08 00:00:00 Telephone Sole Sanchez [facility] 1.2.840.114 350.1.13.10 4.2.7.2.686 [id number] [id number] [facility] 2022-03-05 03:55:00 2022-03-05 03:55:00 Outpatient [id number] 3 DISP DISP [id number] [facility] 2022-03-04 00:00:00 2022-03-04 00:00:00 Telephone Sole Sanchez [facility] 1.2.840.114 350.1.13.10 4.2.7.2.686 [id number] [facility] 2022-03-04 00:00:00 2022-03-04 00:00:00 Orders Only Doctor Unassigned, [facility] 1.2.840.114 350.1.13.10 4.2.7.2.686 [id number] [facility] 2022-03-03 16:00:00 2022-03-03 17:08:40 Outpatient R SOLE SANCHEZ [facility] [id number] [facility] 2022-03-03 16:00:00 2022-03-03 17:08:40 Office Visit Laura Sole [facility] 1.2.840.114 350.1.13.10 4.2.7.2.686 [id number] [facility] 2022-02-19 11:05:00 2022-02-19 12:06:00 Emergency X MARCE ARMENDARIZ [facility] [id number] [facility] 2022-02-19 11:05:00 2022-02-19 12:06:00 Emergency Marce Armendariz [facility] 1.2840.114 350.1.13.10 4.2.7.2.686 [id number] [facility] 2022-02-19 00:00:00 2022-02-19 00:00:00 Orders Only Doctor Unassigned, [facility] 1.2840.114 350.1.13.10 4.2.7.2.686 [id number] [facility] 2022-02-18 00:00:00 2022-02-18 00:00:00 Orders Only Doctor Unassigned, [facility] 1.2.840.114 350.1.13.10 4.2.7.2.686 [id number] [id number] [facility] 2022-02-15 09:30:00 2022-02-15 09:30:00 Outpatient [id number] 3 DISP DISP [id number] [facility] 2022-02-11 00:00:00 2022-02-11 00:00:00 Telephone [facility]ole Sanchez [facility] 1.2.840.114 350.1.13.10 4.2.7.2.686 [id number] [facility] 2022-02-09 04:40:00 2022-02-09 04:40:00 Outpatient [id number] 3 DISP DISP [id number] [facility] 2022-02-09 00:00:00 2022-02-09 00:00:00 Brianda Chen , DRAW IN HAND: [address], [address], [place] [address] , Ph. [id number] 2022-02-09 00:00:2022-02-09 00:00:00 Outpatient Brianda Chen DISP DISP [id number] 2022-02-08 14:00:00 2022-02-08 14:00:00 Outpatient GENNY METZGER [facility] [id number] [facility] 2022-02-08 00:00:00 2022-02-08 00:00:00 Refill Latasha Santillan [facility] 1.2840.114 350.1.13.10 4.2.7.2.686 [id number] [facility] 2022-02-04 00:00:00 2022-02-04 00:00:00 Telephone Sole Sanchez [facility] 1.2840.114 350.1.13.10 4.2.7.2.686 [id number] [facility] 2022-02-04 00:00:00 2022-02-04 00:00:00 Orders Only Doctor Unassigned, [facility] 1.2.840.114 350.1.13.10 4.2.7.2.686 [id number] [facility] 2022-01-25 00:00:00 2022-01-25 00:00:00 Telephone Sole Sanchez [facility] 1.2840.114 350.1.13.10 4.2.7.2.686 [id number] [id number] [facility] 2022-01-24 00:00:00 2022-01-24 00:00:00 Refill Sole Sanchez [facility] 1.2840.114 350.1.13.10 4.2.7.2.686 [id number] [facility] 2022-01-21 00:00:00 2022-01-21 00:00:00 Telephone Sole Sanchez [facility] 1.2.840.114 350.1.13.10 4.2.7.2.686 [id number] [facility] 2022-01-21 00:00:00 2022-01-21 00:00:00 Orders Only Doctor Unassigned, [facility] 1.2.840.114 350.1.13.10 4.2.7.2.686 [id number] [facility] 2022-01-20 09:40:00 2022-01-20 10:07:08 Office Visit Sole Sanchez [facility] 1.2.840.114 350.1.13.10 4.2.7.2.686 [id number] [facility] 2022-01-20 09:40:00 2022-01-20 10:07:08 Outpatient R SOLE SANCHEZ [facility] [id number] [facility] 2022-01-20 09:40:00 2022-01-20 10:07:08 Outpatient R SOLE SANCHEZ [facility] [id number] [facility] 2022-01-20 09:40:00 2022-01-20 09:40:00 Outpatient R SOLE SANCHEZ [facility] [id number] [facility] 2022-01-20 09:40:00 2022-01-20 09:40:00 Outpatient R SOLE SANCHEZ [facility] [id number] [facility] 2022-01-20 00:00:00 2022-01-20 00:00:00 Telephone Sole Sanchez [facility] 1.2.840.114 350.1.13.10 4.2.7.2.686 [id number] [id number] [facility] 2022-01-08 00:00:00 2022-01-08 00:00:00 Transition of Care uLcia Estrella 1.2.840.114 350.1.13.10 4.2.7.2.686 [id number] [facility] 2022-01-08 00:00:00 2022-01-08 00:00:00 Telephone Sole Sanchez [facility] 1.2.840.114 350.1.13.10 4.2.7.2.686 [id number] [facility] 2022-01-06 14:42:00 2022-01-07 14:30:00 Emergency Shaun Peraza Jelani [facility] 1..840.114 350.1.13.10 4.2.7.2.686 [id number] [facility] 2022-01-06 14:00:00 2022-01-06 14:18:27 Outpatient R SOLE SANCHEZ [facility] [id number] [facility] 2022-01-06 14:00:00 2022-01-06 14:18:27 Outpatient R SOLE SANCHEZ [facility] [id number] [facility] 2022-01-06 14:00:00 2022-01-06 14:18:27 Office Visit Sole Sanchez [facility] 1.2.840.114 350.1.13.10 4.2.7.2.686 [id number] [facility] 2022-01-06 14:00:00 2022-01-06 14:18:27 Outpatient R SOLE SANCHEZ [facility] [id number] [facility] 2021-12-23 10:40:00 2021-12-23 11:29:29 Outpatient R SOLE SANCHEZ [facility] [id number] [facility] 2021-12-23 10:40:00 2021-12-23 11:29:29 Office Visit TaniageoffreytetoSole guerra [facility] 1.2.840.114 350.1.13.10 4.2.7.2.686 [id number] [facility] 2021-12-23 10:40:00 2021-12-23 11:29:29 Outpatient R TANIAGEOFFREYTETONERYSOLE [facility] [id number] [facility] 2021-12-23 10:40:00 2021-12-23 11:29:29 Office Visit TaniageoffreydaniellaSole [facility] 1.2.840.114 350.1.13.10 4.2.7.2.686 [id number] [facility] 2021-12-23 10:40:00 2021-12-23 11:29:29 Outpatient R TANIAANGELISOLE [facility] [id number] [facility] 2021-12-23 10:40:00 2021-12-23 11:29:29 Outpatient R TANIAGEOFFREYSOLE BREWER [facility] [id number] [facility] 2021-12-23 10:40:00 2021-12-23 10:40:00 Outpatient R SOLE SANCHEZ [facility] [id number] [facility] 2021-12-23 10:40:00 2021-12-23 10:40:00 Outpatient R TANIAGEOFFREYSOLE BREWER [facility] [id number] [facility] 2021-12-17 00:00:00 2021-12-17 00:00:00 Telephone TaniageoffreySole brewer [facility] 1.2.840.114 350.1.13.10 4.2.7.2.686 [id number] [facility] 2021-12-11 08:35:00 2021-12-11 23:59:00 Outpatient R LATASHA SANTILLAN [facility] [id number] [facility] 2021-12-11 08:35:00 2021-12-11 23:59:00 Outpatient R LATASHA SANTILLAN [facility] [id number] [facility] 2021-12-11 08:35:00 2021-12-11 23:59:00 Outpatient R LATASHA SANTILLAN [facility] [id number] [facility] 2021-12-11 08:35:00 2021-12-11 23:59:00 Outpatient R LATASHA SANTILLAN [facility] [id number] [facility] 2021-12-11 08:45:00 2021-12-11 09:04:18 Outpatient R LATASHA SANTILLAN [facility] [id number] [facility] 2021-12-11 08:45:00 2021-12-11 09:04:18 Office Visit Latasha Santillan [facility] 1.2.840.114 350.1.13.10 4.2.7.2.686 [id number] [facility] 2021-12-09 11:00:00 2021-12-09 12:00:53 Outpatient SOLE HINTON [facility] [id number] [facility] 2021-12-09 11:00:00 2021-12-09 12:00:53 Office Visit Sole Sanchez [facility] 1.2.840.114 350.1.13.10 4.2.7.2.686 [id number] [facility] 2021-12-09 09:45:00 2021-12-09 09:45:00 Field Service Consultant Visit 2, Adc Lab Sole Sanchez [facility] 1.2.840.114 350.1.13.10 4.2.7.2.686 [id number] [facility] 2021-12-08 10:45:00 2021-12-08 10:45:00 Outpatient R SOLE SANCHEZ [facility] [id number] [facility] 2021-12-08 10:45:00 2021-12-08 10:45:00 Outpatient R SOLE SANCHEZ [facility] [id number] [facility] 2021-12-04 08:40:00 2021-12-04 08:40:00 Outpatient R SOLE SANCHEZ [facility] [id number] [facility] 2021-12-04 08:40:00 2021-12-04 08:40:00 Outpatient R SOLE SANCHEZ [facility] [id number] [facility] 2021-12-03 00:00:00 2021-12-03 00:00:00 Sole Ramos [facility] 1.2.840.114 350.1.13.10 4.2.7.2.686 [id number] [facility] 2021-11-24 00:00:00 2021-11-24 00:00:00 Patient Outreach Lupis Brunner [facility] 1.2.840.114 350.1.13.10 4.2.7.2.686 [id number] [facility] 2021-11-24 00:00:00 2021-11-24 00:00:00 Patient Outreach Lupis Brunner [facility] 1.2.840.114 350.1.13.10 4.2.7.2.686 [id number] [facility] 2021-11-24 00:00:00 2021-11-24 00:00:00 Patient Outreach Lupis Brunner [facility] 1.2.840.114 350.1.13.10 4.2.7.2.686 [id number] [facility] 2021-11-24 00:00:00 2021-11-24 00:00:00 Patient Out[facility] 1.2.840.114 350.1.13.10 4.2.7.2.686 [id number] [facility] 2021-11-24 00:00:00 2021-11-24 00:00:00 Patient Outreach Lupis Brunner [facility] 1.2.840.114 350.1.13.10 4.2.7.2.686 [id number] [facility] 2021-11-24 00:00:00 2021-11-24 00:00:00 Patient Outreach Lupis Brunner [facility] 1.2.840.114 350.1.13.10 4.2.7.2.686 [id number] [facility] 2021-11-23 00:00:00 2021-11-23 00:00:00 Patient Outreach Lupis Brunner [facility] 1.2.840.114 350.1.13.10 4.2.7.2.686 [id number] [facility] 2021-11-23 00:00:00 2021-11-23 00:00:00 Refill Sole Sanchez [facility] 1.2.840.114 350.1.13.10 4.2.7.2.686 [id number] [facility] 2021-11-20 16:00:00 2021-11-20 17:07:33 Outpatient R SOLE SANCHEZ [facility] [id number] [facility] 2021-11-20 16:00:00 2021-11-20 17:07:33 Office Visit Sole Sanchez [facility] 1.2.840.114 350.1.13.10 4.2.7.2.686 [id number] [facility] 2021-11-20 16:00:00 2021-11-20 17:07:33 Outpatient R SOLE SANCHEZ [facility] [id number] [facility] 2021-11-20 16:00:00 2021-11-20 17:07:33 Office Visit Sole Sanchez [facility] 1.2.840.114 350.1.13.10 4.2.7.2.686 [id number] [facility] 2021-11-20 16:00:00 2021-11-20 17:07:33 Outpatient R SOLE SANCHEZ [facility] [id number] [facility] 2021-11-20 16:00:00 2021-11-20 17:07:33 Office Visit [facility] 1.2.840.114 350.1.13.10 4.2.7.2.686 [id number] [facility] 2021-11-20 16:00:00 2021-11-20 17:07:33 Office Visit Sole Sanchez [facility] 1.2.840.114 350.1.13.10 4.2.7.2.686 [id number] [facility] 2021-11-20 16:00:00 2021-11-20 17:07:33 Office Visit Sole Sanchez [facility] 1.2.840.114 350.1.13.10 4.2.7.2.686 [id number] [id number] [facility] 2021-11-20 16:00:00 2021-11-20 17:07:33 Office Visit Sole Sanchez [facility] 1..840.114 350.1.13.10 4.2.7.2.686 [id number] [facility] 2021-11-20 15:40:00 2021-11-20 17:06:34 Office Visit Sole Sanchez [facility] 1.840.114 350.1.13.10 4.2.7.2.686 [id number] [facility] 2021-11-20 16:00:00 2021-11-20 16:00:00 Outpatient R TANIASOLE SUH [facility] [id number] [facility] 2021-11-20 00:00:00 2021-11-20 00:00:00 Orders Only Doctor Unassigned, [place] [facility] 1.84.114 350.1.13.10 4.2.7.2.686 [id number] [facility] 2021-11-12 16:00:00 2021-11-12 16:30:13 Outpatient R TALIA ALATORRE [facility] [id number] [facility] 2021-11-12 16:00:00 2021-11-12 16:30:13 [facility] 1..840.114 350.1.13.10 4.2.7.2.686 [id number] [id number] [facility] 2021-11-11 00:00:00 2021-11-11 00:00:00 [facility] 1.2840.114 350.1.13.10 4.2.7.2.686 [id number] 044 [id number] [facility] 2021-11-06 00:00:00 2021-11-06 00:00:00 Telephone [facility] 1.2.840.114 350.1.13.10 4.2.7.2.686 [id number] 044 [id number] [facility] 2021-11-03 00:00:00 2021-11-03 00:00:00 Telephone TaniageoffreySole brewer [facility] NAL BUILD[facility] 1.2.840.114 350.1.13.10 4.2.7.2.686 [id number] 044 [id number] [facility] 2021-10-30 00:00:00 2021-10-30 00:00:00 Telephone Sole Sanchez [facility] 1.2.840.114 350.1.13.10 4.2.7.2.686 [id number] [id number] [facility] 2021-10-29 00:00:00 2021-10-29 00:00:00 Orders Only Doctor Unassigned, [place] [facility] 1.2.840.114 350.1.13.10 4.2.7.2.686 [id number] [facility] 2021-10-02 09:00:00 2021-10-02 09:00:00 Outpatient R SOLE SANCHEZ [facility] [id number] [facility] 2021-10-02 09:00:00 2021-10-02 09:00:00 Outpatient R SOLE SANCHEZ [facility] [id number] [facility] 2021-09-17 00:00:00 2021-09-17 00:00:00 [facility] 1.2.840.114 350.1.13.10 4.2.7.2.686 [id number] [facility] 2021-09-17 00:00:00 2021-09-17 00:00:00 Telephone Sole Sanchez [facility] 1.2.840.114 350.1.13.10 4.2.7.2.686 [id number] [facility] 2021-09-17 00:00:00 2021-09-17 00:00:00 Telephone Sole Sanchez [facility] 1.2.840.114 350.1.13.10 4.2.7.2.686 [id number] [id number] [facility] 2021-09-15 00:00:00 2021-09-15 00:00:00 Telephone Digna Littlejohn [facility] 1.2.840.114 350.1.13.10 4.2.7.2.686 [id number] [facility] 2021-09-08 00:00:00 2021-09-08 00:00:00 Telephone Rancho Bravo [facility] 1.2.840.114 350.1.13.10 4.2.7.2.686 [id number] [facility] 2021-09-04 11:19:40 2021-09-04 11:34:40 Field Service Consultant Visit Lab, [facility] 1.2.840.114 350.1.13.10 4.2.7.2.686 [id number] [facility] 2021-09-04 11:30:00 2021-09-04 11:30:00 Outpatient RANCHO GANDHI HOWARD [facility] [id number] [facility] 2021-09-04 11:00:00 2021-09-04 11:17:32 Outpatient RANCHO GANDHI HOWARD [facility] [id number] [facility] 2021-09-04 09:43:53 2021-09-04 11:17:32 Office [facility] 1.2.840.114 350.1.13.10 4.2.7.2.686 [id number] [facility] 2021-09-02 00:00:00 2021-09-02 00:00:00 Telephone [facility]ia [facility] 1.2.840.114 350.1.13.10 4.2.7.2.686 [id number] [facility] 2021-09-02 00:00:00 2021-09-02 00:00:00 Telephone [place]ravo [facility] 1.2.840.114 350.1.13.10 4.2.7.2.686 [id number] [facility] 2021-08-27 14:30:00 2021-08-27 15:34:39 Outpatient R TALIA ALATORRE [facility] [id number] [facility] 2021-08-27 14:13:41 2021-08-27 15:34:39 [facility] 1.2.840.114 350.1.13.10 4.2.7.2.686 [id number] [facility] 2021-08-27 14:30:00 2021-08-27 14:30:00 Outpatient R ROSANNETALIA FLANNERY [facility] [id number] [facility] 2021-08-27 14:00:00 2021-08-27 14:00:00 Outpatient R ROMAN LITTLEJOHNE [facility] [id number] [facility] 2021-08-26 13:16:00 2021-08-26 15:35:00 Emergency X RAFA FERREIRA [facility] E[facility] [id number] [facility] 2021-08-26 13:16:00 2021-08-26 15:35:00 Emergency Rafa Ferreira [facility] 1.2.840.114 350.1.13.10 4.2.7.2.686 [id number] [facility] 2021-08-26 13:16:00 2021-08-26 15:35:00 Emergency X RAFA FERREIRA [facility] ERT [id number] [facility] 2021-08-25 15:00:00 2021-08-25 15:00:00 Outpatient RANCHO GANDHI HOWARD [facility] [id number] [facility] 2021-08-25 15:00:00 2021-08-25 10:41:13 Outpatient RANCHO GANDHI HOWARD [facility] [id number] [facility] 2021-08-25 09:34:17 2021-08-25 10:41:13 Office Visit Rancho Bravo [facility] 1.2.840.114 350.1.13.10 4.2.7.2.686 [id number] [facility] 2021-08-21 00:00:00 2021-08-21 00:00:00 Telephone [place]o Bravo [facility] 1.2.840.114 350.1.13.10 4.2.7.2.686 [id number] [facility] 2021-08-19 08:03:23 2021-08-19 23:59:00 Outpatient RANCHO GANDHI HOWARD [facility] [id number] [facility] 2021-08-19 08:03:23 2021-08-19 23:59:00 Hospital Encounter Rancho Bravo [facility] 1.2.840.114 350.1.13.10 4.2.7.2.686 [id number] [facility] 2021-08-19 00:00:00 2021-08-19 00:00:00 Orders Only Doctor Unassigned, [place] [facility] 1.2.840.114 350.1.13.10 4.2.7.2.686 [id number] [facility] 2021-08-17 14:40:00 2021-08-17 14:40:00 Outpatient RANCHO GANDHI HOWARD [facility] [id number] [facility] 2021-08-06 07:41:44 2021-08-06 23:59:00 Hospital Encounter Suraj [facility] 1.2.840.114 350.1.13.10 4.2.7.2.686 [id number] [facility] 2021-08-06 07:41:30 2021-08-06 23:59:00 Hospital Encounter Suraj [facility] 1.2.840.114 350.1.13.10 4.2.7.2.686 [id number] [facility] 2021-08-06 07:41:13 2021-08-06 23:59:00 [facility] 1.2.840.114 350.1.13.10 4.2.7.2.686 [id number] [facility] 2021-08-06 08:00:00 2021-08-06 08:00:00 [facility]patient [facility] [id number] [facility] 2021-08-06 07:40:58 2021-08-06 07:40:58 Hospital Encounter Suraj [facility] 1.2.840.114 350.1.13.10 4.2.7.2.686 [id number] [facility] 2021-08-03 10:15:00 2021-08-03 10:15:00 Outpatient R [facility] [id number] [facility] 2021-08-03 08:33:11 2021-08-03 08:48:11 Field Service Consultant Visit Lab, Digna [facility] Medical Office Building 1.2.840.114 350.1.13.10 4.2.7.2.686 [id number] [facility] 2021-07-31 10:00:00 2021-07-31 10:27:40 Outpatient RANCHO GANDHI HOWARD [facility] [id number] [facility] 2021-07-31 10:00:00 2021-07-31 10:27:40 Outpatient R RANCHO BRAVO HOWARD [facility] [id number] [facility] 2021-07-31 10:00:00 2021-07-31 10:27:40 Outpatient RANCHO GANDHI HOWARD [facility] [id number] [facility] 2021-07-31 10:00:00 2021-07-31 10:27:40 Outpatient R RANCHO BRAVO HOWARD [facility] [id number] [facility] 2021-07-31 08:48:12 2021-07-31 10:27:40 Office Visit [facility]ravo [facility] Medical Office Building 1.2.840.114 350.1.13.10 4.2.7.2.686 [id number] [facility] 2021-07-31 10:00:00 2021-07-31 10:00:00 Outpatient R RANCHO BRAVO HOWARD [facility] [id number] [facility] 2021-07-23 12:57:43 2021-07-23 14:24:23 Office Visit Digna Littlejohn [facility] Office Building 1.2.840.114 350.1.13.10 4.2.7.2.686 [id number] [facility] 2021-07-23 13:30:00 2021-07-23 13:30:00 Outpatient R COOPER LITTLEJOHNLIE [facility] [id number] [facility] 2021-07-16 08:30:00 2021-07-16 08:30:00 Outpatient [facility] [id number] [facility] 2021-07-03 12:26:20 2021-07-03 14:30:32 Office Visit Suraj [facility] 1.2.840.114 350.1.13.10 4.2.7.2.686 [id number] [facility] 2021-07-03 13:00:00 2021-07-03 13:00:00 Outpatient R [facility] [id number] [facility] 2021-07-03 12:26:20 2021-07-03 12:46:20 [facility] 1.2.840.114 350.1.13.10 4.2.7.2.686 [id number] [facility] 2021-06-10 09:20:00 2021-06-10 09:20:00 Outpatient Zuniga_F [facility] [id number] [facility] 2021-06-03 10:29:00 2021-06-03 10:29:00 Outpatient A_Byrd [facility] [id number] [facility] 2021-06-02 13:00:00 2021-06-02 13:00:00 [facility] [id number] [facility] 2021-05-25 11:00:00 2021-05-25 11:00:00 Outpatient [facility] [id number] [facility] 2020-10-31 00:22:00 2020-10-31 00:22:00 Outpatient Ximena Valdes [facility] [id number] [facility] 2020-10-24 10:00:00 2020-10-24 10:00:00 Outpatient R SOLE SANCHEZ [facility] [id number] [facility] 2020-10-15 13:20:00 2020-10-15 13:20:00 Outpatient R [facility] [id number] [facility] 2020-10-06 16:15:00 2020-10-06 16:15:00 Outpatient ALFONSO GONGORA [facility] [id number] [facility] 2020-10-06 13:54:04 2020-10-06 14:09:04 Office Visit Alfonso Gabriel [facility] 1.2.840.114 350.1.13.10 4.2.7.2.686 [id number] [facility] 2020-10-02 10:45:00 2020-10-02 10:45:00 Outpatient R LATASHA SANTILLAN [facility] [id number] [facility] 2020-10-02 00:00:00 2020-10-02 00:00:00 Transition of Care Delroy Goodrich .2.840.114 350.1.13.10 4.2.7.2.686 [id number] [facility] 2020-09-15 11:30:00 2020-09-15 11:30:00 Outpatient R GENNY ZAPATA [facility] [id number] [facility] 2020-08-25 20:18:00 2020-08-26 01:58:00 Emergency Cristal Torres [facility] 1.2.840.114 350.1.13.10 4.2.7.2.686 [id number] [facility] 2020-08-19 00:00:00 2020-08-19 00:00:00 Orders Only Doctor Unassigned, [place] [facility] 1.2.840.114 350.1.13.10 4.2.7.2.686 [id number] [facility] 2020-08-15 11:15:05 2020-08-15 23:59:00 Hospital Encounter Latasha Santillan [facility] Surgical [facility] 1.2.840.114 350.1.13.10 4.2.7.2.686 [id number] [facility] 2020-08-15 10:43:13 2020-08-15 11:31:24 Office Visit Latasha Santillan [place] 1.2.840.114 350.1.13.10 4.2.7.2.686 [id number] [facility] 2020-08-15 11:15:00 2020-08-15 11:15:00 Outpatient R LATASHA SANTILLAN [facility] [id number] [facility] 2020-08-15 00:00:00 2020-08-15 00:00:00 Orders Only Doctor Unassigned, [place] [facility] 1.2.840.114 350.1.13.10 4.2.7.2.686 [id number] [facility] 2020-08-03 00:00:00 2020-08-03 00:00:00 Orders Only Doctor Unassigned, [place] [facility] 1.2.840.114 350.1.13.10 4.2.7.2.686 [id number] [facility] 2020-08-01 00:00:00 2020-08-01 00:00:00 Telephone Lynette rAteaga [facility] 1.2.840.114 350.1.13.10 4.2.7.2.686 [id number] [facility] 2020-07-15 00:00:00 2020-07-15 00:00:00 Transition of Care Delroy Goodrich 1.2840.114 350.1.13.10 4.2.7.2.686 [id number] [facility] 2020-07-08 17:59:00 2020-07-14 15:35:00 Hospital Encounter Matias Carrillo, Sole Victor, Abbey Elias, Rich [facility] 1.2840.114 350.1.13.10 4.2.7.2.686 [id number] [facility] 2020-07-05 00:00:00 2020-07-05 00:00:00 Telephone [facility] 1.2840.114 350.1.13.10 4.2.7.2.686 [id number] [facility] 2020-06-20 10:36:00 2020-06-20 10:36:00 [facility] [id number] [facility] 2020-06-04 22:27:00 2020-06-05 00:20:00 Emergency Adrianna Kelley [facility] 1.2840.114 350.1.13.10 4.2.7.2.686 [id number] [facility] 2020-05-23 16:20:00 2020-05-23 16:20:00 [facility] [id number] [facility] 2020-05-23 15:25:00 2020-05-23 15:25:00 Outpatient [place] [facility] Family [facility] [id number] [facility] 2020-05-20 18:40:00 2020-05-20 23:30:00 Emergency Rafa Ferreira [place] [facility] 1.2.840.114 350.1.13.10 4.2.7.2.686 [id number] [facility] 2020-05-11 18:55:50 2020-05-11 21:49:00 Emergency Adrianna Kelley [facility] 1.2.840.114 350.1.13.10 4.2.7.2.686 [id number] [facility] 2020-05-07 13:59:37 2020-05-07 14:43:00 Emergency Rafa Ferreira [facility] 1.2.840.114 350.1.13.10 4.2.7.2.686 [id number] [facility] 2020-05-07 00:00:00 2020-05-07 00:00:00 Orders Only Doctor Unassigned, [place] [facility] 1.2.840.114 350.1.13.10 4.2.7.2.686 [id number] [facility] 2020-01-28 14:20:00 2020-01-28 14:20:00 Outpatient Cristopher Doty [facility] RE[facility] [id number] [facility] 2020-01-01 16:10:00 2020-01-01 16:10:00 Outpatient [place] [facility] Family Medicine [facility] Medicine [id number] [facility] 2019-12-26 08:44:00 2019-12-26 08:44:00 Outpatient [place] [facility] Family [facility] Medicine [id number] [facility] 2019-12-05 15:07:00 2019-12-05 15:07:00 [place] [facility] [address] [facility] [place] [address] [facility] [id number] [facility] 2019-09-24 09:27:00 2019-09-24 09:27:00 [place] [address] [facility] [place] [address] [facility] [id number] [facility] 2019-09-06 12:00:00 2019-09-06 12:00:00 Out[place] [facility] [address] [facility] [place] [address] [facility] [id number] [facility] 2019-08-18 17:55:00 2019-08-18 17:55:00 Out[place] [address] [facility] [place] [address] [facility] [id number] [facility] 2019-08-01 09:00:00 2019-08-01 09:00:00 [place] [address] [facility] [place] [address] [facility] [id number] [facility] 2019-06-07 11:20:00 2019-06-07 11:20:00 Outpatient [place] [address] [facility] [place] [address] [facility] [id number] [facility] 2019-01-04 14:04:00 2019-01-04 14:04:00 Out[place] [facility] [address] [facility] [place] [address] [facility] [id number] [facility] 2018-11-23 09:15:00 2018-11-23 09:15:00 [facility] [id number] [facility] 2018-11-20 10:13:00 2018-11-20 10:13:00 Out[place] [facility] [address] [facility] [place] [address] [facility] [id number] [facility] 2018-11-15 15:15:00 2018-11-15 15:15:00 Out[place] [address] [facility] [place] [address] [facility] [id number] [facility] 2018-10-09 10:19:00 2018-10-09 10:19:00 Outpatient [place] [address] [facility] [place] [address] [facility] [id number] [facility] 2018-06-02 16:46:00 2018-06-02 16:46:00 Outpatient [facility] [id number] [facility] 2018-05-11 09:45:00 2018-05-11 09:45:00 Outpatient [facility] [id number] [facility] 2016-08-02 16:15:00 2016-08-02 16:15:00 Outpatient Jeannine TYRELL LATASHA [facility] [id number] [facility] Results Test Description Test Time Test Comments Results Result Co mments Source VALPROIC ACID (DEPAKENE)2023-05-11 07:50:00* Test Item Value Reference Range Interpretation Comme nts VALP ACID (test code = 95A) 38.4 ug/mL 50.0-100.0 LL VALPROIC ACID (DEPAKENE)2023-05-07 07:12:00* Test Item Value Reference Range Interpretation Comme nts VALP ACID (test code = 95A) 42.8 ug/mL 50.0-100.0 LL THYROID PANEL/SCREEN (TSH)2023-05-03 23:20:00* Test Item Value Reference Range Interpretation Comme nts TSH (test code = A57) 1.467 uIU/mL 0.550-4.780 [id number] 23:20:00* Test Item Value Reference Range Interpretation Comme nts FOLATE (test code = A75) >24.0 ng/mL See_Comment [Automated [employer] ge] The system which generated this result transmitted reference range: >=5.5. The reference range was not used to interpret this result as normal/abnormal. LIPID [id number] 23:16:00* Test Item Value Reference Range Interpretation Comme nts CHOLESTROL (test code = 44A) 88 mg/dL 140-200 L TRIGLYCERI (test code = 42B) 121 mg/dL See_Comment [Automated messa ge] The system which generated this result transmitted reference range: <=149. The reference range was not used to interpret this result as normal/abnormal. HDL (test code = 83D) 37.9 mg/dL 40.0-60.0 L LDL (test code = 34B) 34 mg/dL See_Comment [A utomated message] The system which generated this result transmitted reference range: <=99. The reference range was not used to interpret this result as normal/abnormal. CHL/HDL (test code = CHR) 2.3 0.0-3.4 B12 [id number] 23:09:00* Test Item Value Reference Range Interpretation Comme nts VIT B12 (test code = A60) 391.0 pg/mL 211.0-911.0 [id number] 23:05:00* Test Item Value Reference Range Interpretation Comme nts PREALBUMIN (test code = 08E) 21 mg/dL 10-40 [id number] 23:04:00* Test Item Value Reference Range Interpretation Comme nts MAGNESIUM (test code = 48A) 1.8 mg/dL 1.6-2.6 [id number] 23:04:00* Test Item Value Reference Range Interpretation Comme nts Hb A1C % (test code = HBA) 5.5 % 3.8-6.4 A1C % (test code = A1C) HbA1c (% ) Reference Range Normal <5.7 Prediabetes 5.7-6.4 Diabetic >=6.5 AMMONIA [id number] 21:57:00* Test Item Value Reference Range Interpretation Comme nts AMMONIA (test code = 54A) 28 umol/L 11-32 SARS-CoV (RAPID ANTIGEN)2023-05-03 21:55:00* Test Item Value Reference Range Interpretation Comme nts SARS-CoV (ANTIGEN) (test code = COVAG) NEGATIVE NEGATIVE COVID AG (test code = COVAGC) This test has been marketed under the FDA Emergency Use Authorization (EUA) to meet challenges of the COVID-19 pandemic. The validation standards normally enforced by the FDA and the [employer] (CAP) are more stringent than those required for this test. Therefore, the result should be interpreted with caution and close attention to other clinical and epidemiological data CARDIAC [id number] 21:46:00* Test Item Value Reference Range Interpretation Comme nts TROPONIN I (test code = A84) 8.79 pg/mL 0.00-45.20 [id number] 21:46:00* Test Item Value Reference Range Interpretation Comme nts SALICYLATE (test code = 94B) <3.0 mg/dL 15.0-30.0 L COMPREHENSIVE METABOLIC [id number] 21:46:00* Test Item Value Reference Range Interpretation Comme nts GLUCOSE (test code = 06D) 102 mg/dL 75-100 H SODIUM (test code = 01A) 143 mmol/L 136-145 POTASSIUM (test code = 01B) 4.0 mmol/L 3.6-5.1 CHLORIDE (test code = 04A) 110 mmol/L 98-107 H CO2 (test code = 02A) 25 mmol/L 20-31 ANION GAP (test code = ANG) 12.0 mmol/L BUN (test code = 05D) 10 mg/dL 9-23 CREATININE (test code = 03E) 0.9 mg/dL 0.7-1.3 GFR (test code = GFR) 92 mL/min/1.73m\\S\\2 See_Comment [Automated message] The system which generated this result transmitted reference range: >=90. The reference range was not used to interpret this result as normal/abnormal. GFR (test code = GFRAA) 107 mL/min/1.73m\\S\\2 See_Comment [Automated message] The system which generated this result transmitted reference range: >=90. The reference range was not used to interpret this result as normal/abnormal. EGFR (test code = EGFR) eGFR BY CKD-EPI CALCULATION IS NOT RECOMMENDED FOR PATIENTS UNDER 18 YEARS OF AGE. BUN/CREA (test code = BCR) 11 12-20 L CALCIUM (test code = 09D) 9.3 mg/dL 8.3-10.6 BILI TOTAL (test code = 11A) 0.3 mg/dL 0.2-1.0 PROTEIN (test code = 07D) 6.7 g/dL 5.7-8.2 ALBUMIN (test code = 08D) 4.6 g/dL 3.2-4.8 GLOBULIN (test code = GLB) 2.1 g/dL 1.5-3.8 ALB/GLOB (test code = AGRR) 2.2 1.0-2.6 ALK PHOS (test code = 35A) 86 IU/L 46-116 AST (test code = 30A) 11 IU/L See_Comment [Automated message] The system which generated this result transmitted reference range: <=33. The reference range was not used to interpret this result as normal/abnormal. ALT (test code = 31A) 7 IU/L 10-49 L [id number] 21:46:00* Test Item Value Reference Range Interpretation Comme nts ACETAMINPH (test code = 94M) <0.2 mg/dL 1.2-2.5 L ALCOHOL BLOOD (ETOH)2023-05-03 21:46:00* Test Item Value Reference Range Interpretation Comme nts ETOH (test code = HALC) ETHANOL The result is to be used only for medical purposes ALCOHOL (test code = 56A) <10 mg/dL See_Comment [Automated messa ge] The system which generated this result transmitted reference range: <=10. The reference range was not used to interpret this result as normal/abnormal. DRUGS OF [id number] 21:40:00* Test Item Value Reference Range Interpretation Comme nts DRUG SCRN (test code = HDOA) URINE DRUG SCREEN This is an unconfirmed screening result and should not be used for non-medical purposes CANNABINOD (test code = 88C) NEGATIVE NEGATIVE AMPHETAMINE (test code = 84A) NEGATIVE NEGATIVE BENZODIAZP (test code = 86A) NEGATIVE NEGATIVE BARBITURAT (test code = 85A) NEGATIVE NEGATIVE OPIATES (test code = 92B) NEGATIVE NEGATIVE COCAINE (test code = 87A) NEGATIVE NEGATIVE PHENCYCLID (test code = 66A) NEGATIVE NEGATIVE METHADONE (test code = 64A) NEGATIVE NEGATIVE DOAH (test code = DOAH.) URINE DRUGSCREEN Cut-off values are as follows: Cannabinoids 50 ng/mL Cocaine 300 ng/mL Amphetamines 1000 ng/mL Phencyclidine 25 ng/mL Benzodiazepines 200 ng.mL Methadone 300 ng/mL Barbiturates 200 ng/mL Opiates 300 ng/mL XR CHEST 1 VIEW [id number] 21:39:53 [facility] : 1960 Sex: MEXAMINATION:XR CHEST 1 VIEW PORTABLECLINICAL INDICATION:Male, 62 years year old with Psychotic disorder;Bizarre/paranoid behaviorCOMPARISON: None.FINDINGS:Single view(s) of the chest submitted.Support Devices: Loop recorder noted.Heart: Cardiac silhouette is normal in size.Mediastinum: Mediastinal contours are normal.Lungs: Pulmonary vessels are normal in size. Lungs are well aerated and clear.Pleura: No pleural effusion is identified. No pneumothorax is present.Bones: Multiple old left healed rib fractures.IMPRESSION:No acute cardiopulmonary disease.Electronically signed by: Randee Ray MD 05/03/2023 9:39 PM CDT [id number] 21:37:00* Test Item Value Reference Range Interpretation Comme nts COLOR (test code = COLU) YELLOW YELLOW CLARITY (test code = CLA) CLEAR CLEAR GLUCOSE UR (test code = UA GLUCOSE) NEGATIVE NEGATIVE BILI UR (test code = BILE) NEGATIVE NEGATIVE KETONES UR (test code = KYM) NEGATIVE NEGATIVE SP GRAVITY (test code = SPGR) 1.014 1.005-1.030 PH UR (test code = PH) 7.0 4.5-8.0 PROTEIN UR (test code = PU) NEGATIVE NEGATIVE UROBIL UR (test code = UROQ) 1.0 EU/dL 0.2-1.0 NITRITE UR (test code = NITRITE) NEGATIVE NEGATIVE BLOOD UR (test code = UA BLOOD) NEGATIVE NEGATIVE LEUK ES UR (test code = LEUK) NEGATIVE NEGATIVE CBC (INCLUDES AUTOMATED DIFFERENTIAL)2023-05-03 21:33:00* Test Item Value Reference Range Interpretation Comme nts WBC (test code = WBC) 8.2 10\\S\\3/uL 4.5-11.0 RBC (test code = RBC) 4.09 10\\S\\6/uL 4.20-5.60 L HGB (test code = HBG) 12.2 g/dL 14.0-18.0 L HCT (test code = HCT) 36.8 % 35.0-46.0 MCV (test code = MCV) 90.0 fL 80.0-94.0 MCH (test code = MCH) 29.8 pg 27.0-31.0 MCHC (test code = MCHC) 33.2 g/dL 32.0-36.0 RDW (test code = RDW) 14.4 % 11.5-14.5 PLT (test code = PLT) 209 10\\S\\3/uL 130-400 MPV (test code = MPV) 11.0 fL 9.4-12.4 NEUTROP # (test code = NE#) 4.5 10\\S\\3/uL 2.0-8.0 LYMPH # (test code = LY#) 1.9 10\\S\\3/uL 1.2-4.0 MONOCYTE # (test code = MO#) 1.2 10\\S\\3/uL 0.0-1.1 H EOSINOPH # (test code = EO#) 0.5 10\\S\\3/uL 0.0-0.7 BASOPHIL # (test code = BA#) 0.1 10\\S\\3/uL 0.0-0.3 IG # (test code = IG#) 0.03 10\\S\\3/uL 0.00-0.06 NRBC # (test code = NRBC#) 0.00 10\\S\\3/uL 0.00-0.01 NEUTROPH % (test code = NE%) 54.4 % 35.0-73.0 LYMPH % (test code = LY%) 23.6 % 20.0-55.0 MONO % (test code = MO%) 14.4 % 2.5-10.0 H EOSINOPH % (test code = EO%) 6.2 % 0.0-5.0 H BASOPHIL % (test code = BA%) 1.0 % 0.0-2.0 IG % (test code = IG%) 0.4 % 0.0-0.8 NRBC% (test code = NRBC%) 0.0 % 0.0-0.2 MANDIFF (test code = MDIFF) NO NO RBC MORPH (test code = RBCMOR) NORMAL CT HEAD W/O [id number] 21:19:50 [facility] : 1960 Sex: MREASON FOREXAM: Psychotic disorder, paranoid behaviorCT brain, unenhanced with reformatted sagittal and coronal images.COMPARISON: NoneAll studies use automated exposure control, iterative reconstruction technique, and/or adjustment of mA and/or kV according to patient size for optimum radiation dose reductionThe cortical pattern shows a large area of encephalomalacia in the left posterior parietal and temporal lobe. Hypodensity in the white matter suggests chronic microvascular ischemia changes. Minimalcortical atrophy.No areas of hemorrhage. The ventricular system is midline.Posterior fossa structures intact. Fourth ventricle normally distended.Visualized sinuses appear to be clear. No skull fracture evident. 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.Senescent changes.Location:[id number] signed by: Otoniel Busch MD 05/03/2023 9:19 PM CDT [id number] Acid 2022-05-22 08:30:00* Test Item Value Reference Range Interpretation Comme nts Lactic Acid (test code = LACTIC) 1.6 mmol/L 0.5-2.0 N Complete Blood Count Auto [id number] 08:20:00* Test Item Value Reference Range Interpretation Comme nts White Blood Count (test code = WBCT) 7.6 x10 3/uL 4.4-10.5 N Red Blood Count (test code = RBC) 3.64 x10 6/uL 4.10-5.70 L Hemoglobin (test code = HGBT) 10.1 g/dL 13.4-17.4 L Hematocrit (test code = HCTT) 30.9 % 38.7-52.0 L Mean Corpuscular Volume (trung t code = MCV) 84.90 fL 80.00-100.00 N Mean Corpuscular Hemoglobin (test code = MCH) 27.7 pg 27.0-32.5 N Mean Corpuscular HGB Conc (test code = MCHC) 32.70 g/dL 32.00-37.50 N RDW Coefficient of Variation (test code = RDWCV) 16.7 % 11.5-14.5 H Platelet Count (test code = PLTT) 219.0 x10 3/uL 140.0-440.0 N Mean Platelet Volume (test code = MPV) 11.6 fL Immature Granulocytes % (Aut o) (test code = IMMGRAN%) 0.3 % 0.0-5.0 N Neutrophils % (Auto) (test code = NE%) 67.7 % 36.0-70.0 N Lymphocytes % (Auto) (test code = LY%) 14.4 % 12.0-44.0 N Monocytes % (Auto) (test cod e = MO%) 9.7 % 0.0-11.0 N Eosinophils % (Auto) (test code = EO%) 7.2 % 0.0-7.0 H Basophils % (Auto) (test cod e = BA%) 0.7 % 0.0-2.0 N Immature Granulocytes # (Aut o) (test code = IMMGRAN#) 0.02 x10 3/uL Neutrophils # (Auto) (test code = NE#) 5.2 x10 3/uL 1.6-7.4 N Lymphocytes # (Auto) (test code = LY#) 1.10 x10 3/uL 0.50-4.60 N Monocytes # (Auto) (test cod e = MO#) 0.74 x10 3/uL 0.00-1.20 N Eosinophils # (Auto) (test code = EO#) 0.55 x10 3/uL 0.00-0.74 N Basophils # (Auto) (test cod e = BA#) 0.05 x10 3/uL 0.00-0.21 N nRBC Abs (test code = NRBCA) 0 nRBC Pct (test code = NRBCP) 0 % Basic Metabolic [id number] 08:20:00* Test Item Value Reference Range Interpretation Comme nts SODIUM (test code = NA) 140.0 mmol/L 136.0-145.0 N Potassium,K (test code = K) 3.9 mmol/L 3.0-5.1 N Chloride (test code = CL) 114 mmol/L 98-107 H Carbon Dioxide (test code = CO2) 23 mmol/L 20-31 N Anion Gap (test code = GAP) 3 mmol/L 5-15 L Blood Urea Nitrogen (test co de = BUN) 15 mg/dL 9-23 N Creatinine (test code = CREATT) 1.14 mg/dL 0.55-1.02 H Creatinine Clr Calc Pharmacy (test code = CRCLPHA) 71.62 mL/min Estimated GFR ( Ameri ca (test code = EGFRAA) > 60 mL/min/1.73m2 Estimated GFR (Non Afr Ameri ca (test code = EGFRNAA) > 60 mL/min/1.73m2 BUN/Creatinine Ratio (test c ode = BCRATIO) 13 ratio 10-20 N Glucose (test code = GLU) 119 mg/dL 74-106 H Osmolality,Calculated (test code = OSMOC) 291.3 Calcium (test code = CA) 8.5 mg/dL 8.3-10.6 N Lactic [id number] 21:10:00* Test Item Value Reference Range Interpretation Comme nts Lactic Acid (test code = LACTIC) 2.3 mmol/L 0.5-2.0 HH Critical value c alled to shannan back by jaime yang rn on: 05/20/22 at 2220by OJO01. Troponin I High [id number] 20:20:00* Test Item Value Reference Range Interpretation Comme nts Troponin I High Sensitivity (test code = TROPHS) 13.04 pg/mL 0-45 N Interpretive Com ments:* The 99th percentile URL for the assay is <45 pg/ml.* A rise and fall in Troponin I with at least onevalue above the 99th percentile with clinical evidence ofmyocardial ischemia would support a diagnosis of AMI. Adelta of at least 20% is recommended to assess acutechanges in results above the 99th percentile in serialmeasurements.* High concentrations of Biotin, a water soluble B-vitamin(B7) used in over the counter supplements and fortherapeutic purposes, has been tested and shows <10% changeup to 3,500 ng/mL Biotin using this Siemens [employer] TNIHassay. Results obtained should be evaluated in conjunctionwith clinical findings. UA, Urinalysis Rflx Cult/[id number] 18:35:00* Test Item Value Reference Range Interpretation Comme nts Color,Urine (test code = UCOL) Yellow Yellow Clarity,Urine (test code = UCLAR) Clear Clear Ph, Urine (test code = UPH) 7.5 5.0-9.0 N Specific [place],Urine (test code = USG) 1.010 1.005-1.030 N Blood,Urine (test code = UBLD) Negative mg/dL Negative Protein,Urine (test code = UPRO) 30 mg/dL Negative A Glucose,Urine (UA) (test cod e = UGLU) Negative mg/dL Negative Ketones,Urine (test code = UKET) Negative mg/dL Negative Nitrate,Urine (test code = UNIT) Negative Negative Bilirubin,Urine (test code = UBIL) Negative mg/dL Negative Urobilinogen,Urine (test cod e = UURO) 0.2 E.U./dL Normal Leukocyte Esterase,Urine (te st code = ULEU) Negative mg/dL Negative UF REFLEXUF REFLEXUrine [id number] 18:35:00* Test Item Value Reference Range Interpretation Comme nts RBC,Urine (test code = URBCUF) None Seen /HPF 0-2 WBC,Urine (test code = UWBCUF) 0-5 /HPF 0-5 Epithelial Cell,Urine (test code = UECUF) 0-5 /HPF 0-5 Casts,Urine (test code = UCASTUF) 0-5 /LPF None Seen Bacteria,Urine (test code = UBACTUF) None Seen /hpf None Seen UF REFLEXUF REFLEXDrug Screen,[id number] 18:35:00* Test Item Value Reference Range Interpretation Comme nts PCP Phencyclidine Screen,Uri ne (test code = PCPU) Negative Negative Amphetamine Screen,Urine (te st code = AMPU) Negative Negative Methadone Screen,Urine (test code = METHU) Negative Negative Opiate Screen,Urine (test co de = UOPIS) Negative Negative Barbituates Screen,Urine (te st code = BARBU) Negative Negative Benzodiazepines Screen,Urine (test code = UBENZS) Negative Negative Cocaine Screen,Urine (test c ode = UCOCS) Negative Negative Cannabinoid Screen,Urine (te st code = UTHCS) Negative Negative Propoxyphene Screen, Urine ( test code = UPROP) Negative Negative Complete Blood Count Auto [id number] 18:24:00* Test Item Value Reference Range Interpretation Comme nts White Blood Count (test code = WBCT) 11.1 x10 3/uL 4.4-10.5 H Red Blood Count (test code = RBC) 3.94 x10 6/uL 4.10-5.70 L Hemoglobin (test code = HGBT) 11.0 g/dL 13.4-17.4 L Hematocrit (test code = HCTT) 35.1 % 38.7-52.0 L Mean Corpuscular Volume (trung t code = MCV) 89.10 fL 80.00-100.00 N Mean Corpuscular Hemoglobin (test code = MCH) 27.9 pg 27.0-32.5 N Mean Corpuscular HGB Conc (test code = MCHC) 31.30 g/dL 32.00-37.50 L RDW Coefficient of Variation (test code = RDWCV) 16.8 % 11.5-14.5 H Platelet Count (test code = PLTT) 263.0 x10 3/uL 140.0-440.0 N Mean Platelet Volume (test code = MPV) 12.0 fL Immature Granulocytes % (Aut o) (test code = IMMGRAN%) 0.4 % 0.0-5.0 N Neutrophils % (Auto) (test code = NE%) 70.2 % 36.0-70.0 H Lymphocytes % (Auto) (test code = LY%) 13.8 % 12.0-44.0 N Monocytes % (Auto) (test cod e = MO%) 10.8 % 0.0-11.0 N Eosinophils % (Auto) (test code = EO%) 4.1 % 0.0-7.0 N Basophils % (Auto) (test cod e = BA%) 0.7 % 0.0-2.0 N Immature Granulocytes # (Aut o) (test code = IMMGRAN#) 0.04 x10 3/uL Neutrophils # (Auto) (test code = NE#) 7.8 x10 3/uL 1.6-7.4 H Lymphocytes # (Auto) (test code = LY#) 1.54 x10 3/uL 0.50-4.60 N Monocytes # (Auto) (test cod e = MO#) 1.20 x10 3/uL 0.00-1.20 N Eosinophils # (Auto) (test code = EO#) 0.46 x10 3/uL 0.00-0.74 N Basophils # (Auto) (test cod e = BA#) 0.08 x10 3/uL 0.00-0.21 N nRBC Abs (test code = NRBCA) 0 nRBC Pct (test code = NRBCP) 0 % Troponin I High [id number] 18:04:00* Test Item Value Reference Range Interpretation Comme nts Troponin I High Sensitivity (test code = TROPHS) 11.29 pg/mL 0-45 N Interpretive Com ments:* The 99th percentile URL for the assay is <45 pg/ml.* A rise and fall in Troponin I with at least onevalue above the 99th percentile with clinical evidence ofmyocardial ischemia would support a diagnosis of AMI. Adelta of at least 20% is recommended to assess acutechanges in results above the 99th percentile in serialmeasurements.* High concentrations of Biotin, a water soluble B-vitamin(B7) used in over the counter supplements and fortherapeutic purposes, has been tested and shows <10% changeup to 3,500 ng/mL Biotin using this Siem[employer] TNIHassay. Results obtained should be evaluated in conjunctionwith clinical findings. Blood [id number] 17:05:00* Test Item Value Reference Range Interpretation Comme [facility] Blood Culture (test code = BC) NO GROWTH AFTER 5 DAYS Creatine [id number] 17:00:00* Test Item Value Reference Range Interpretation Comme [facility] Creatine Kinase (test code = CK) 81 U/L 46-171 N Ethanol [id number] 17:00:00* Test Item Value Reference Range Interpretation Comme nts Ethanol (test code = ETOH) < 3 mg/dL The pharmacologi diogenes response to blood alcohol levels mayvary from individual to individual. The fatal concentrationhas been reported to be >400mg/dL. Troponin I High [id number] 17:00:00* Test Item Value Reference Range Interpretation Comme [facility] Troponin I High Sensitivity (test code = TROPHS) 7.88 pg/mL 0-45 N Interpretive Com ments:* The 99th percentile URL for the assay is <45 pg/ml.* A rise and fall in Troponin I with at least onevalue above the 99th percentile with clinical evidence ofmyocardial ischemia would support a diagnosis of AMI. Adelta of at least 20% is recommended to assess acutechanges in results above the 99th percentile in serialmeasurements.* High concentrations of Biotin, a water soluble B-vitamin(B7) used in over the counter supplements and fortherapeutic purposes, has been tested and shows <10% changeup to 3,500 ng/mL Biotin using this [employer] TNIHassay. Results obtained should be evaluated in conjunctionwith clinical findings. Coronavirus PCR, COVID19 [id number] 17:00:00* Test Item Value Reference Range Interpretation Comme [facility] Coronavirus PCR, COVID19 Rapid (test code = SARSCOV2) For use under Emergency Use Authorization (EUA) only. Coronavirus PCR, COVID19 Rapid (test code = NBZMJUV60.1) Reference Range: Negative SARS-CoV-2 PCR Result: (test code = SARS-CoV-2 PCR Result:) Negative by RT-PCR COVID-19 Status: AsymptomaticBlood [id number] 17:00:00* Test Item Value Reference Range Interpretation Comme nts Blood Culture (test code = BC) NO GROWTH AFTER 5 DAYS Prothrombin Time [id number] 17:00:00* Test Item Value Reference Range Interpretation Comme nts Prothrombin Time (test code = PT) 10.2 Seconds 9.3-12.1 N INR (test code = INR) 1.0 ratio 0.9-1.2 N Reference Interv al is for non-anticoagulated patients.Suggested INR Therapeutic Range for Vitamin K antogonisttherapy:LEV ELS OFTHERAPY INDICATIONS TARGET INR RANGEStandard Dose Venous Thrombosis, 2.0 - 3.0 Atrial Fibrillation, Pulmonary Embolism.High Dose Valvular Heart Disease, 2.5 - 3.5 Mechanical Heart, Intracardiac Thrombosis. Partial Thromboplastin [id number] 17:00:00* Test Item Value Reference Range Interpretation Comme nts Partial Thromboplastin Time (test code = PTT) 20.8 Seconds 23.9-32.8 L Comprehensive Metabolic [id number] 17:00:00* Test Item Value Reference Range Interpretation Comme nts SODIUM (test code = NA) 136.0 mmol/L 136.0-145.0 N Potassium,K (test code = K) 4.7 mmol/L 3.0-5.1 N Chloride (test code = CL) 104 mmol/L 98-107 N Carbon Dioxide (test code = CO2) 22 mmol/L 20-31 N Anion Gap (test code = GAP) 10 mmol/L 5-15 N Blood Urea Nitrogen (test co de = BUN) 28 mg/dL 9-23 H Creatinine (test code = CREATT) 1.49 mg/dL 0.55-1.02 H Creatinine Clr Calc Pharmacy (test code = CRCLPHA) 54.80 mL/min Estimated GFR ( Ameri ca (test code = EGFRAA) 59 mL/min/1.73m2 Estimated GFR (Non Afr Ameri ca (test code = EGFRNAA) 51 mL/min/1.73m2 BUN/Creatinine Ratio (test c ode = BCRATIO) 19 ratio 10-20 N Glucose (test code = GLU) 176 mg/dL 74-106 H Osmolality,Calculated (test code = OSMOC) 291.0 Calcium (test code = CA) 9.4 mg/dL 8.3-10.6 N Bilirubin,Total (test code = BILIT) 0.3 mg/dL 0.2-1.1 N Aspartate Amino Transferase (test code = AST) 46 U/L 0-34 H Alanine Aminotransferase (te st code = ALT) 26 U/L 10-49 N Total Protein (test code = TP) 6.6 g/dL 5.7-8.2 N Albumin Level (test code = ALB) 4.8 g/dL 3.2-4.8 N Globulin (test code = GLOB) 1.8 mg/dL 2.3-3.5 L Albumin/Globulin Ratio (test code = AGRATIO) 2.7 ratio 0.8-2.0 H Alkaline Phosphatase (test c ode = ALP) 105 U/L 46-116 N Lactic [id number] 16:42:00* Test Item Value Reference Range Interpretation Comme nts Lactic Acid (test code = LACTIC) 2.3 mmol/L 0.5-2.0 HH Critical value c alled to shannan back by Viola Alcazar on: 05/20/22 at 1753by RAS08. Lactic Acid Collected [facility] Leuko-Red [id number] 23:54:00* Test Item Value Reference Range Interpretation Comme nts CROSSMATCH (test code = 2264) COMPATIBLE Unit ABO (test code = 3808586) A Pos UNIT NUMBER (test code = 934-0) [id number] Status (test code = 8188810) TX_TIMEINCHART Blood Bank Product (test cod e = 2263) RED BLOOD CELLS PRODUCT CODE (test code = 933-2) [id number] [facility] FarmHEPATIC FUNCTION [id number] 05:10:20* Test Item Value Reference Range Interpretation Comme nts TOTAL PROTEIN (BEAKER) (test code = 770) 5.4 gm/dL 6.0-8.5 L ALBUMIN (BEAKER) (test code = 1145) 3.2 g/dL 3.5-5.0 L BILIRUBIN TOTAL (BEAKER) (te st code = 377) 0.4 mg/dL 0.1-1.2 BILIRUBIN DIRECT (BEAKER) (t est code = 706) 0.2 mg/dL 0.0-0.4 ALKALINE PHOSPHATASE (BEAKER ) (test code = 346) 52 U/L 30-115 AST (SGOT) (BEAKER) (test co de = 353) 18 U/L 5-40 ALT (SGPT) (BEAKER) (test co de = 347) 16 U/L 5-50 It Architecture Analyst ID - LITOOperator ID - LITOOperator ID - LITOOperator ID - LITOOperator ID - LITOOperator ID - LITOOperator ID - LITOOperator ID - LITOOperator ID - LITOOperator ID - LITOBASIC METABOLIC [id number] 05:08:22* Test Item Value Reference Range Interpretation Comme nts SODIUM (BEAKER) (test code = 381) 142 meq/L 135-148 POTASSIUM (BEAKER) (test code = 379) 3.8 meq/L 3.6-5.5 CHLORIDE (BEAKER) (test code = 382) 113 meq/L 98-106 H CO2 (BEAKER) (test code = 355) 22 meq/L 20-29 BLOOD UREA NITROGEN (BEAKER) (test code = 354) 17 mg/dL 10-26 CREATININE (BEAKER) (test code = 358) 0.85 mg/dL 0.50-1.20 GLUCOSE RANDOM (BEAKER) (test code = 652) 95 mg/dL 70-110 CALCIUM (BEAKER) (test code = 697) 8.3 mg/dL 8.5-10.5 L EGFR (BEAKER) (test code = 1092) 92 mL/min/1.73 sq m ESTIMATED GFR IS NOT ACCURATE CREATININE CLEARANCE IN PREDICTING GLOMERULAR FILTRATION RATE. ESTIMATED GFR IS NOT APPLICABLE FOR DIALYSIS PATIENTS. It Architecture Analyst ID - LITOOperator ID - LITOOperator ID - LITOOperator ID - LITOOperator ID - LITOOperator ID - LITOOperator ID - LITOOperator ID - LITOOperator ID - LITOCBC W/PLT COUNT & AUTO [id number] 04:58:17* Test Item Value Reference Range Interpretation Comme nts WHITE BLOOD CELL COUNT (BEAK ER) (test code = 775) 8.1 K/ L 4.0-10.0 RED BLOOD CELL COUNT (BEAKER ) (test code = 761) 2.70 M/ L 4.20-5.80 L HEMOGLOBIN (BEAKER) (test co de = 410) 8.3 GM/DL 13.0-16.8 L HEMATOCRIT (BEAKER) (test co de = 411) 24.4 % 36.0-50.0 L MEAN CORPUSCULAR VOLUME (SUNNY KER) (test code = 753) 90.4 fL 82.0-99.0 MEAN CORPUSCULAR HEMOGLOBIN (BEAKER) (test code = 751) 30.7 pg 27.0-33.0 MEAN CORPUSCULAR HEMOGLOBIN CONC (BEAKER) (test code = 752) 34.0 GM/DL 32.0-36.0 RED CELL DISTRIBUTION WIDTH (BEAKER) (test code = 412) 17.0 % 12.0-15.0 H PLATELET COUNT (BEAKER) (trung t code = 756) 200 K/CU MM 150-430 MEAN PLATELET VOLUME (BEAKER ) (test code = 754) 11.2 fL 6.0-11.5 NUCLEATED RED BLOOD CELLS (BEAKER) (test code = 413) 0 /100 WBC 0-0 NEUTROPHILS RELATIVE PERCENT (BEAKER) (test code = 429) 62 % LYMPHOCYTES RELATIVE PERCENT (BEAKER) (test code = 430) 19 % MONOCYTES RELATIVE PERCENT (BEAKER) (test code = 431) 9 % EOSINOPHILS RELATIVE PERCENT (BEAKER) (test code = 432) 9 % BASOPHILS RELATIVE PERCENT (BEAKER) (test code = 437) 1 % NEUTROPHILS ABSOLUTE COUNT (BEAKER) (test code = 670) 4.98 K/ L 1.80-8.00 LYMPHOCYTES ABSOLUTE COUNT (BEAKER) (test code = 414) 1.53 K/ L 1.48-4.50 MONOCYTES ABSOLUTE COUNT (BE TANVIR) (test code = 415) 0.74 K/ L 0.00-1.30 EOSINOPHILS ABSOLUTE COUNT (BEAKER) (test code = 416) 0.73 K/ L 0.00-0.50 H BASOPHILS ABSOLUTE COUNT (BE TANVIR) (test code = 417) 0.06 K/ L 0.00-0.20 IMMATURE GRANULOCYTES-RELATI VE PERCENT (BEAKER) (test code = 2801) 0 % 0-0 HEPATIC FUNCTION [id number] 06:24:42* Test Item Value Reference Range Interpretation Comme nts TOTAL PROTEIN (BEAKER) (test code = 770) 5.3 gm/dL 6.0-8.5 L ALBUMIN (BEAKER) (test code = 1145) 3.3 g/dL 3.5-5.0 L BILIRUBIN TOTAL (BEAKER) (te st code = 377) 0.3 mg/dL 0.1-1.2 BILIRUBIN DIRECT (BEAKER) (t est code = 706) 0.2 mg/dL 0.0-0.4 ALKALINE PHOSPHATASE (BEAKER ) (test code = 346) 50 U/L 30-115 AST (SGOT) (BEAKER) (test co de = 353) 17 U/L 5-40 ALT (SGPT) (BEAKER) (test co de = 347) 15 U/L 5-50 It Architecture Analyst ID - [id number] ID - [id number] ID - [id number] ID - [id number] ID - [id number] ID - ZDSPNUEHA502Nwsrlqgs ID - QUSMPOYXJ930Jqhbetto ID - XZBSPRXNK832Kikedhkv ID - [id number] ID - [id number] METABOLIC [id number] 06:24:00* Test Item Value Reference Range Interpretation Comme nts SODIUM (BEAKER) (test code = 381) 143 meq/L 135-148 POTASSIUM (BEAKER) (test code = 379) 3.9 meq/L 3.6-5.5 CHLORIDE (BEAKER) (test code = 382) 116 meq/L 98-106 H CO2 (BEAKER) (test code = 355) 20 meq/L 20-29 BLOOD UREA NITROGEN (BEAKER) (test code = 354) 31 mg/dL 10-26 H CREATININE (BEAKER) (test code = 358) 0.89 mg/dL 0.50-1.20 GLUCOSE RANDOM (BEAKER) (test code = 652) 98 mg/dL 70-110 CALCIUM (BEAKER) (test code = 697) 8.4 mg/dL 8.5-10.5 L EGFR (BEAKER) (test code = 1092) INSUFFICIENT CLI NICAL DATA TO CALCULATE ESTIMATED GFR. It Architecture Analyst ID - [id number] ID - [id number] ID - [id number] ID - [id number] ID - [id number] ID - [id number] ID - [id number] ID - [id number] ID - [id number] ID - [id number] W/PLT COUNT & AUTO DIFFERENTIAL 2022-04-10 05:53:05* Test Item Value Reference Range Interpretation Comme nts WHITE BLOOD CELL COUNT (BEAK ER) (test code = 775) 9.9 K/ L 4.0-10.0 RED BLOOD CELL COUNT (BEAKER ) (test code = 761) 2.19 M/ L 4.20-5.80 L HEMOGLOBIN (BEAKER) (test co de = 410) 6.9 GM/DL 13.0-16.8 L HEMATOCRIT (BEAKER) (test co de = 411) 19.9 % 36.0-50.0 LL MEAN CORPUSCULAR VOLUME (SUNNY KER) (test code = 753) 90.9 fL 82.0-99.0 MEAN CORPUSCULAR HEMOGLOBIN (BEAKER) (test code = 751) 31.5 pg 27.0-33.0 MEAN CORPUSCULAR HEMOGLOBIN CONC (BEAKER) (test code = 752) 34.7 GM/DL 32.0-36.0 RED CELL DISTRIBUTION WIDTH (BEAKER) (test code = 412) 16.9 % 12.0-15.0 H PLATELET COUNT (BEAKER) (trung t code = 756) 217 K/CU MM 150-430 MEAN PLATELET VOLUME (BEAKER ) (test code = 754) 11.3 fL 6.0-11.5 NUCLEATED RED BLOOD CELLS (BEAKER) (test code = 413) 0 /100 WBC 0-0 NEUTROPHILS RELATIVE PERCENT (BEAKER) (test code = 429) 65 % LYMPHOCYTES RELATIVE PERCENT (BEAKER) (test code = 430) 18 % MONOCYTES RELATIVE PERCENT (BEAKER) (test code = 431) 10 % EOSINOPHILS RELATIVE PERCENT (BEAKER) (test code = 432) 5 % BASOPHILS RELATIVE PERCENT (BEAKER) (test code = 437) 1 % NEUTROPHILS ABSOLUTE COUNT (BEAKER) (test code = 670) 6.48 K/ L 1.80-8.00 LYMPHOCYTES ABSOLUTE COUNT (BEAKER) (test code = 414) 1.79 K/ L 1.48-4.50 MONOCYTES ABSOLUTE COUNT (BE TANVIR) (test code = 415) 1.02 K/ L 0.00-1.30 EOSINOPHILS ABSOLUTE COUNT (BEAKER) (test code = 416) 0.54 K/ L 0.00-0.50 H BASOPHILS ABSOLUTE COUNT (BE TANVIR) (test code = 417) 0.06 K/ L 0.00-0.20 IMMATURE GRANULOCYTES-RELATI VE PERCENT (BEAKER) (test code = 2801) 0 % 0-0 CT, BRAIN, WITHOUT [id number] 00:03:00Unlisted Reason for Exam - Click Yes and Enter Reason Below->Noaphasia - anemia, bleed? [facility] CENTERName: OTONIEL HENDERSON : 1960 Sex: MFINAL REPORT CT Head without contrast CLINICAL HISTORY: Stroke, follow up TECHNIQUE: Contiguous axial images through the head without contrast. This exam was performed according to the departmental dose optimization program which includes automated exposure control, adjustment of the mA and/or kV according to the patient [...] while no definite large territory infarction is identifiedrecommend MRI for further evaluation if persistent clinical concern. Signed: Michelle Almazan Verified Date/Time: 04/10/2022 00:03:56 Electronically signed by: Curt CLARK 04/10/2022 12:03 AMBASIC METABOLIC [id number] 23:16:13* Test Item Value Reference Range Interpretation Comme nts SODIUM (BEAKER) (test code = 381) 144 meq/L 135-148 POTASSIUM (BEAKER) (test code = 379) 4.0 meq/L 3.6-5.5 CHLORIDE (BEAKER) (test code = 382) 117 meq/L 98-106 H CO2 (BEAKER) (test code = 355) 18 meq/L 20-29 L BLOOD UREA NITROGEN (BEAKER) (test code = 354) 40 mg/dL 10-26 H CREATININE (BEAKER) (test code = 358) 0.98 mg/dL 0.50-1.20 GLUCOSE RANDOM (BEAKER) (test code = 652) 107 mg/dL 70-110 CALCIUM (BEAKER) (test code = 697) 8.6 mg/dL 8.5-10.5 EGFR (BEAKER) (test code = 1092) INSUFFICIENT CLI NICAL DATA TO CALCULATE ESTIMATED GFR. It Architecture Analyst ID - DSENSONOperator ID - DSENSONOperator ID - DSENSONOperator ID - DSENSONOperator ID - DSENSONOperator ID - DSENSONOperator ID - DSENSONOperator ID - DSENSONOperator ID - DSENSONOperator ID - DSENSONHEPATIC FUNCTION PANEL 2022-04-09 23:06:37* Test Item Value Reference Range Interpretation Comme nts TOTAL PROTEIN (BEAKER) (test code = 770) 5.9 gm/dL 6.0-8.5 L ALBUMIN (BEAKER) (test code = 1145) 3.8 g/dL 3.5-5.0 BILIRUBIN TOTAL (BEAKER) (te st code = 377) 0.4 mg/dL 0.1-1.2 BILIRUBIN DIRECT (BEAKER) (t est code = 706) 0.2 mg/dL 0.0-0.4 ALKALINE PHOSPHATASE (BEAKER ) (test code = 346) 64 U/L 30-115 AST (SGOT) (BEAKER) (test co de = 353) 18 U/L 5-40 ALT (SGPT) (BEAKER) (test co de = 347) 15 U/L 5-50 It Architecture Analyst ID - DSENSONOperator ID - DSENSONOperator ID - DSENSONOperator ID - DSENSONOperator ID - DSENSONOperator ID - DSENSONOperator ID - DSENSONMAGNESIUM 2022-04-09 23:06:21* Test Item Value Reference Range Interpretation Comme nts MAGNESIUM (BEAKER) (test cod e = 627) 2.1 mg/dL 1.5-3.0 It Architecture Analyst ID - DSENSONOperator ID - DSENSONOperator ID - DSENSONOperator ID - [id number] 23:03:17* Test Item Value Reference Range Interpretation Comme nts PHOSPHORUS (BEAKER) (test co de = 604) 2.9 mg/dL 2.5-4.5 It Architecture Analyst ID - DSENSONPROTHROMBIN TIME/[id number] 22:59:19* Test Item Value Reference Range Interpretation Comme nts PROTIME (BEAKER) (test code = 759) 10.9 seconds 9.3-12.0 Final Informat ion (Auto Output) INR (BEAKER) (test code = 370) 0.99 See_Comment Final Informatio n (Auto Output) [Automated message] The system which generated this result transmitted reference range: <=5.90. The reference range was not used to interpret this result as normal/abnormal. RECOMMENDED COUMADIN/WARFARIN INR THERAPY RANGESSTANDARD DOSE: 2.0 - 3.0 Includes: PROPHYLAXIS for venous thrombosis, systemic embolization; TREATMENT for venous thrombosis and/or pulmonary embolus.HIGH RISK: Target INR is 2.5-3.5 for patients with mechanical heart valves.CBC W/PLT COUNT & AUTO DIFFERENTIAL 2022-04-09 22:54:17* Test Item Value Reference Range Interpretation Comme nts WHITE BLOOD CELL COUNT (BEAK ER) (test code = 775) 12.1 K/ L 4.0-10.0 H RED BLOOD CELL COUNT (BEAKER ) (test code = 761) 2.48 M/ L 4.20-5.80 L HEMOGLOBIN (BEAKER) (test co de = 410) 7.7 GM/DL 13.0-16.8 L HEMATOCRIT (BEAKER) (test co de = 411) 23.7 % 36.0-50.0 L MEAN CORPUSCULAR VOLUME (SUNNY KER) (test code = 753) 95.6 fL 82.0-99.0 MEAN CORPUSCULAR HEMOGLOBIN (BEAKER) (test code = 751) 31.0 pg 27.0-33.0 MEAN CORPUSCULAR HEMOGLOBIN CONC (BEAKER) (test code = 752) 32.5 GM/DL 32.0-36.0 RED CELL DISTRIBUTION WIDTH (BEAKER) (test code = 412) 16.4 % 12.0-15.0 H PLATELET COUNT (BEAKER) (trung t code = 756) 213 K/CU MM 150-430 MEAN PLATELET VOLUME (BEAKER ) (test code = 754) 11.2 fL 6.0-11.5 NUCLEATED RED BLOOD CELLS (BEAKER) (test code = 413) 0 /100 WBC 0-0 NEUTROPHILS RELATIVE PERCENT (BEAKER) (test code = 429) 73 % LYMPHOCYTES RELATIVE PERCENT (BEAKER) (test code = 430) 15 % MONOCYTES RELATIVE PERCENT (BEAKER) (test code = 431) 10 % EOSINOPHILS RELATIVE PERCENT (BEAKER) (test code = 432) 2 % BASOPHILS RELATIVE PERCENT (BEAKER) (test code = 437) 1 % NEUTROPHILS ABSOLUTE COUNT (BEAKER) (test code = 670) 8.79 K/ L 1.80-8.00 H LYMPHOCYTES ABSOLUTE COUNT (BEAKER) (test code = 414) 1.75 K/ L 1.48-4.50 MONOCYTES ABSOLUTE COUNT (BE TANVIR) (test code = 415) 1.18 K/ L 0.00-1.30 EOSINOPHILS ABSOLUTE COUNT (BEAKER) (test code = 416) 0.23 K/ L 0.00-0.50 BASOPHILS ABSOLUTE COUNT (BE TANVIR) (test code = 417) 0.07 K/ L 0.00-0.20 IMMATURE GRANULOCYTES-RELATI VE PERCENT (BEAKER) (test code = 2801) 0 % 0-0 HOMOCYSTEINE [id number] 10:10:00* Test Item Value Reference Range Interpretation Comme nts HOMOCYSTEINE (test code = HOMOCY) 15.3 umol/L 0.0-14.5 A Performed At: [address] [id number] So MD Ph:[phone] RAPID PLASMA [id number] 06:11:00* Test Item Value Reference Range Interpretation Comme nts RAPID PLASMA REAGIN (test code = RPR) Non Reactive Non Reactive Performed At: [address] [id number] So MD Ph:[phone] - CT HEAD/BRAIN W/O [id number] 14:36:00 [facility] 1960 Sex: M Name: OTONIEL HENDERSON [facility] : 1960 Age/S: 60 / M [address] [facility] Unit #: [id number] Loc: [place] [address] Phys: Ximena Valdes MD Acct: [id number] Dis Date: Status: ADM INPHONE #: [phone] Exam Date: 10/31/2020 1420 FAX #: Reason: CVA EXAMS: CPT: [id number] CT HEAD/BRAIN W/O CONT 48858 CLINICAL HISTORY: CVA. CT brain, unenhanced. Reformatted sagittal and coronal im ages. COMPARISON: October 30, 2020, yesterday. Automated exposure [...] can be documented. Location: U19 at 1436 Reportedand signed by: Otoniel Busch M.D CC: Ximena Valdes MD; Karen Shoemaker Technologist:RT Ratna (R)(CT) CTDI: DLP: Trnscb Date/Time: 10/31/2020 (1436) [email or web address] Orig Print D/T: S: 10/31/2020 (1439) PAGE 1 Signed ReportSED [id number] 10:34:00* Test Item Value Reference Range Interpretation Comme nts SED RATE (test code = SEDW) 7 mm/hr 0-15 SED RATE [id number] 10:33:00* Test Item Value Reference Range Interpretation Comme nts SED RATE WESTERGREN (test co de = SEDW) 7 mm/hr 0-15 N [id number] 07:00:00* Test Item Value Reference Range Interpretation Comme nts GLYCOSYLATED HEMOGLOBIN (HA1 C) (test code = GLYHGB) 5.5 % A1C 0.0-5.7 N ESTIMATED AVERAGE GLUCOSE (t est code = EAG) 111 MG/DLest BASIC METABOLIC [id number] 06:55:00* Test Item Value Reference Range Interpretation Comme nts SODIUM (test code = NA) 142 mmol/L 134-147 N POTASSIUM (test code = K) 4.1 mmol/L 3.4-5.0 N CHLORIDE (test code = CL) 113 mmol/L 100-108 H CARBON DIOXIDE (test code = CO2) 22 mmol/L 21-32 N ANION GAP (test code = GAP) 7.0 GAP calc 4.0-15.0 N GLUCOSE (test code = GLU) 94 MG/DL 70-110 N BLOOD UREA NITROGEN (test code = BUN) 10 MG/DL 7-18 N GLOMERULAR FILTRATION RATE (test code = GFR) >=60 max estimate estGFR >60 CREATININE (test code = CREAT) 1.0 MG/DL 0.8-1.3 N CALCIUM (test code = CA) 9.0 MG/DL 8.5-10.1 N Comment: FASTING IN AM PATIENT SHOULD BE FASTING OVERNIGHT 10-12 HRS. TAKE BLOOD TO [facility]. MUST SEPAPATE SERUM FROM CELLS WITHIN 1 HR AND FREEZE SERUM PROMPTLY.LIPID PROFILE (CORONARY RISK)2020-10-31 06:55:00* Test Item Value Reference Range Interpretation Comme nts TRIGLYCERIDES (test code = TRIG) 293 MG/DL 0-150 H CHOLESTEROL (test code = CHOL) 211 MG/DL 133-200 H CHOLESTEROL/HDL RATIO (test code = CHOLHDL) 6.39 RATIO >0 HDL CHOLESTEROL (test code = HDL) 33 MG/DL 40-59 L NON-HDL CHOLESTEROL (test co de = NHDL) 178 mg/dL <130 H LIPOPROTEIN LDL (test code = LDL) 132 MG/DL 0-129 H LDL/HDL (test code = LDL/HDL) 4.00 Ratio 1.48-3.22 Avg H Comment: FASTING IN AM PATIENT SHOULD BE FASTING OVERNIGHT 10-12 HRS. TAKE BLOOD TO [facility]. MUST SEPAPATE SERUM FROM CELLS WITHIN 1 HR AND FREEZE SERUM PROMPTLY.HOMOCYSTEINE [id number] 06:55:00* Test Item Value Reference Range Interpretation Comme nts HOMOCYSTEINE (test code = HOMOCY) mcMOL/L <9 Comment: FASTING IN AM PATIENT SHOULD BE FASTING OVERNIGHT 10-12 HRS. TAKE BLOOD TO [facility]. MUST SEPAPATE SERUM FROM CELLS WITHIN 1 HR AND FREEZE SERUM PROMPTLY.CBC W/AUTO [id number] 06:41:00* Test Item Value Reference Range Interpretation Comme nts WHITE BLOOD CELL (test code = WBC) 9.5 K/mm3 3.5-11.0 N RED BLOOD CELL (test code = RBC) 4.46 M/mm3 4.70-6.10 L HEMOGLOBIN (test code = HGB) 13.5 G/DL 12.3-15.9 N HEMATOCRIT (test code = HCT) 41.0 % 35.8-46.7 N MEAN CELL VOLUME (test code = MCV) 91.9 Fl 86.3-98.9 N MEAN CELL HGB (test code = MCH) 30.3 pg 28.9-34.4 N MEAN CELL HGB CONCETRATION (test code = MCHC) 32.9 G/DL 32.1-34.5 N RED CELL DISTRIBUTION WIDTH (test code = RDW) 14.4 SD 11.5-14.5 N PLATELET COUNT (test code = PLT) 212 K/mm3 150-450 N MEAN PLATELET VOLUME (test c ode = MPV) 11.10 fL 7.0-9.6 H NEUTROPHIL % (test code = NT%) 66.2 % 40-76 N IMMATURE GRANULOCYTE % (test code = IG%) 0.2 % 0.0-5.0 N LYMPHOCYTE % (test code = LY%) 13.5 % 20.5-51.1 L MONOCYTE % (test code = MO%) 10.8 % 1.7-9.3 H EOSINOPHIL % (test code = EO%) 8.6 % 0.0-6.0 H BASOPHIL % (test code = BA%) 0.7 % 0.0-2.0 N NUCLEATED RBC % (test code = NRBC%) 0.0 /100WBC% 0.0-1.0 N NEUTROPHIL # (test code = NT#) 6.3 K/mm3 1.8-7.6 N IMMATURE GRANULOCYTE # (test code = IG#) 0.02 x10 3/uL 0.00-0.03 N LYMPHOCYTE # (test code = LY#) 1.3 K/mm3 0.6-3.0 N MONOCYTE # (test code = MO#) 1.0 K/mm3 0.2-1.5 N EOSINOPHIL # (test code = EO#) 0.8 K/mm3 0.0-0.4 H BASOPHIL # (test code = BA#) 0.1 K/mm3 0.0-0.2 N NUCLEATED RBC # (test code = NRBC#) 0.0 K/mm3 0.00-0.01 N MANUAL DIFF REQUIRED (test c ode = MDIFF) NO DIFF/SCN CRITERIA GLUCOSE BEDSIDE [id number] 23:18:00* Test Item Value Reference Range Interpretation Comme nts GLUCOSE BEDSIDE TESTING (trung t code = GLUBED) 94 mg/dL 70-110 N COVID 19 INHOUSE [id number] 15:04:00* Test Item Value Reference Range Interpretation Comme nts COVID 19 INHOUSE AG (test code = [id number]) NEGATIVE Negative Per billboard poster , negative results should be treated aspresumptive and, if inconsistent with clinical signs andsymptoms or necessary for patient management, should betested with an alternative molecular assay. Negative resultsdo not preclude SARS-CoV-2 infection and should not be usedas the sole basis for patient management decisions. Negative results should be considered in the context of apatient's recent exposures, history, presence of clinicalsigns and symptoms consistent with COVID-19. UA RFLX MICR CULT IF [id number] 14:02:00* Test Item Value Reference Range Interpretation Comme nts UA COLOR (test code = COLU) YELLOW discript YEL/STRAW UA APPEARANCE (test code = APPU) CLEAR discript CLEAR UA GLUCOSE DIPSTICK (test code = DGLUU) NEGATIVE mg/dL NEG UA BILIRUBIN DIPSTICK (test code = BILU) NEGATIVE mg/dL NEG UA KETONE DIPSTICK (test code = KETU) NEGATIVE mg/dL NEG UA SPECIFIC GRAVITY (test code = SGU) <=1.005 SG 1.005-1.030 UA BLOOD DIPSTICK (test code = TOVA) NEGATIVE mg/DL NEG UA PH DIPSTICK (test code = YOSEF) 6.5 pH UNITS 5.0-7.0 UA PROTEIN DIPSTICK (test code = PROU) NEGATIVE mg/dL NEG UA UROBILINIOGEN DIPSTICK (test code = URO) 0.2 mg/dL <2.0 UA NITRITE DIPSTICK (test code = RIRI) NEGATIVE SCREEN NEG UA LEUKOCYTE ESTERASE DIPSTICK (test code = LEUU) NEGATIVE Leuk/mcL NEGATIVE UA CULTURE NEEDED? (test code = UACULT) Criteria Culture CHK Indication for culture: Dysuria/FrequencyUA RFLX MICR CULT IF INDICATED 2020-10-30 14:02:00* Test Item Value Reference Range Interpretation Comme nts UA COLOR (test code = COLU) YELLOW discript YEL/STRAW UA APPEARANCE (test code = APPU) CLEAR discript CLEAR UA GLUCOSE DIPSTICK (test code = DGLUU) NEGATIVE mg/dL NEG UA BILIRUBIN DIPSTICK (test code = BILU) NEGATIVE mg/dL NEG UA KETONE DIPSTICK (test code = KETU) NEGATIVE mg/dL NEG UA SPECIFIC GRAVITY (test code = SGU) <=1.005 SG 1.005-1.030 UA BLOOD DIPSTICK (test code = TOVA) NEGATIVE mg/DL NEG UA PH DIPSTICK (test code = YOSEF) 6.5 pH UNITS 5.0-7.0 UA PROTEIN DIPSTICK (test code = PROU) NEGATIVE mg/dL NEG UA UROBILINIOGEN DIPSTICK (test code = URO) 0.2 mg/dL <2.0 UA NITRITE DIPSTICK (test code = RIRI) NEGATIVE SCREEN NEG UA LEUKOCYTE ESTERASE DIPSTICK (test code = LEUU) NEGATIVE Leuk/mcL NEGATIVE UA CULTURE NEEDED? (test code = UACULT) NO, WBC<10 Criteria Culture CHK Indication for culture: Dysuria/Frequency- CT ANGIO [id number] 13:00:00 [facility] 1960 Sex: M Name: OTONIEL HENDERSON [facility] : 1960 Age/S: 60 / M [address] [address] [place] Unit #: [id number] Loc: [place] [address] Phys: Anjum Rivera MD Acct: [id number] Dis Date: Status:PRE ER PHONE #: [phone] Exam Date: 10/30/2020 1234 FAX #: Reason: slurred speech EXAMS: CPT: [id number] CT ANGIO NECK [address] EXAMINATION: - CT ANGIO HEAD, - CT ANGIO NECK. LOCATION: B2. HISTORY:slurred speech. COMPARISON: None. TECHNIQUE: Contiguous axial sections [...] plaques are seen in bilateral common carotid arterie s and carotid bifurcations without significant stenosis. Mixed [...] rib fracture is present. IMPRESSION: No large vessel occlusion is identified. Bilateral carotid atherosclerotic disease without significant PAGE 1 Signed Report (CONTINUED) Name: [facility]EL [facility]ENDERSON [facility] : 1960 Age/S: 60 / M [address] [address] Unit #: [id number] Loc: [place] [address] Phys: Anjum Rivera MD Acct: [id number] Dis Date: Status: PRE ER PHONE #: [phone] Exam Date: 10/30/2020 6930 FAX #: Reason: slurred speech EXAMS: CPT: [id number] CT ANGIO NECK [address] <Continued> stenosis. Findings were personally discussed with [...] (1300) [email or web address] Orig Print D/T: S: 10/30/2020 (2633) PAGE 2 Signed Report- CT ANGIO [id number] 13:00:00 [facility] : 1960 Sex: M Name: OTONIEL HENDERSON [facility] : 1960 Age/S: 60 / M [address] [address] [place] Unit #: [id number] Loc: [place] [address] Phys: Anjum Rivera MD Acct: [id number] Dis Date: Status: PRE ER PHONE #: [phone] Exam Date: 10/30/2020 1233 FAX #: Reason: slurred speech EXAMS: CPT: [id number] CT ANGIO HEAD [address] EXAMINATION: - CT ANGIO HEAD, - CT [...] plaques are seen in bilateral common carotid arteriesand carotid bifurcations without significant stenosis. Mixed calcific plaques are seen in bilateralcervical, cavernous, and supraclinoid ICAs without significant stenosis. Intracranially, bilateral ICA bifurcations are normal with patent bilateral anterior and middle cerebral arteries. A 2nd rightACA arises off the left REECE. No stenosis or occlusion is noted on either side. Anterior communicating artery appears unremarkable. The origin of the left vertebral artery is obscured by venous streakartifact. Bilateral vertebral arteries are patent. Vertebrobasilar junction is normal with normal-appearing basilar artery. Superior cerebellar and posterior cerebral arteries are unremarkable. No ane urysms are seen in the anterior or posterior circulations. Orbits and globes are intact. Paranasal sinuses and mastoid air cells are clear. No enhancing neck masses are demonstrated. There is no adenopathy in the neck. The thyroid gland appears normal. Lung apices are clear. Remote-appearing left 2nd rib fracture is present. IMPRESSION: No large vessel occlusion is identified. Bilateral carotid atherosclerotic disease without significant PAGE 1 Signed Report (CONTINUED) Name: LIANA HENDERSON [facility] : 1960 Age/S: 60 / M [address] [facility] [place] Unit #: [id number] Loc: [place] [address] Phys: Anjum Rivera MD Acct: [id number] Dis Date: Status: PRE ER PHONE #: [phone] Exam Date: 10/30/2020 1233 FAX #: Reason: slurred speech EXAMS: CPT: [id number] CT ANGIO HEAD [address] <Continued> stenosis. Findings were personally discussed with Dr. Rivera at 1253 hourson 10/30/2020. All qualitative and quantitative assessments of carotid bifurcation and proximal internal carotid artery stenosis are made referencing the distal internal carotid artery (NASCET criteria). FOR INTERNAL CODING PURPOSES ONLY RESULT CODE: CVR at 1300 Reported and signed by: Katarzyna Lozada M.D. CC: Anjum Rivera MD Technologist:Yohan Love, RT(R)(CT); Kr CTDI: DLP: Trnscb Date/Time: 10/30/2020 (1300) [email or web address] Orig Print D/T: S: 10/30/2020 (9588) PAGE 2 Signed ReportBASIC METABOLIC [id number] 12:50:00* Test Item Value Reference Range Interpretation Comme nts SODIUM (test code = NA) 140 mmol/L 134-147 N POTASSIUM (test code = K) 3.6 mmol/L 3.4-5.0 N CHLORIDE (test code = CL) 109 mmol/L 100-108 H CARBON DIOXIDE (test code = CO2) 24 mmol/L 21-32 N ANION GAP (test code = GAP) 7.0 GAP calc 4.0-15.0 N GLUCOSE (test code = GLU) 134 MG/DL 70-110 H BLOOD UREA NITROGEN (test code = BUN) 14 MG/DL 7-18 N GLOMERULAR FILTRATION RATE (test code = GFR) >=60 max estimate estGFR >60 CREATININE (test code = CREAT) 1.0 MG/DL 0.8-1.3 N CALCIUM (test code = CA) 8.9 MG/DL 8.5-10.1 N Completed by Nursing: [id number] 12:50:00* Test Item Value Reference Range Interpretation Comme nts TROPONIN-I (test code = TROPI) < 0.015 NG/ML 0.000-0.045 N Negative: </= 0. 045 Positive: >/= 0.046 Correlation with serial results, other cardiac markers, and clinical findings is necessary to determine the clinical significance of this result. Quantitative results using different methodologies should not be compared to one another as numerical results may varyby method. Completed by Nursing: NOPROTHROMBIN [id number] 12:47:00* Test Item Value Reference Range Interpretation Comme nts PT PATIENT (test code = PTP) 10.5 SECONDS 9.3-12.9 N INTERNATIONAL NORMAL RATIO (test code = INR) 0.94 INR Unit 0.8-1.2 N THROMBOPLASTIN TIME [id number] 12:47:00* Test Item Value Reference Range Interpretation Comme nts THROMBOPLASTIN TIME PARTIAL (test code = PTT) 27.9 SECONDS 26-35 N BASIC METABOLIC [id number] 12:43:00* Test Item Value Reference Range Interpretation Comme nts SODIUM (test code = NA) 140 mmol/L 134-147 N POTASSIUM (test code = K) 3.6 mmol/L 3.4-5.0 N CHLORIDE (test code = CL) 109 mmol/L 100-108 H CARBON DIOXIDE (test code = CO2) 24 mmol/L 21-32 N ANION GAP (test code = GAP) 7.0 GAP calc 4.0-15.0 N GLUCOSE (test code = GLU) 134 MG/DL 70-110 H BLOOD UREA NITROGEN (test co de = BUN) 14 MG/DL 7-18 N GLOMERULAR FILTRATION RATE ( test code = GFR) estGFR >60 CREATININE (test code = CREAT) MG/DL 0.8-1.3 CALCIUM (test code = CA) 8.9 MG/DL 8.5-10.1 N Completed by Nursing: [id number] 12:43:00* Test Item Value Reference Range Interpretation Comme nts TROPONIN-I (test code = TROPI) NG/ML 0.000-0.045 Completed by Nursing: NO- CT HEAD/BRAIN W/O [id number] 12:40:[address] [facility] : 1960 Sex: M Name: OTONIEL HENDERSON : 1960 Age/S: 60 / M [address] [address] [place] Unit #: [id number] Loc: [place] [address] Phys: Anjum Rivera MD Acct: [id number] Dis Date: Status: PRE ER PHONE #: [phone] Exam Date: 10/30/2020 1231 FAX #: Reason: Code Stroke EXAMS: CPT: [id number] CT HEAD/BRAIN W/O CONT 38813 EXAMINATION: - CT HEAD/BRAIN W/O CONT. LOCATION: S17. HISTORY: Code Stroke, right-sided weakness, slurred speech, history of stroke. COMPARISON: None. TECHNIQUE: Routine CT of the head was performed without intravenous contrast as per protocol. One or more the following dose reduction techniques were used: Automated exposure control, adjustment of mA and/or kV acc ording to patient size, and use of iterative [...] HENDERSON : 1960 Age/S: 60 / M [address] [address] [place] Unit #: [id number] Loc: [place] [address] Phys: Anjum Rivera MD Acct: [id number] Dis Date: Status: PRE ER PHONE #: [phone] Exam Date: 10/30/2020 1231 FAX #: Reason: Code Stroke EXAMS: CPT: [id number] CT HEAD/BRAIN W/O CONT 15627 <Continued> at 1240 Reported and signed by: Manjinder Antonio M.D. CC: Anjum Rivera MD Technologist:Yohan Love, RT(R)(CT); Kr CTDI: DLP:Trnscb Date/Time: 10/30/2020 (1240) t.[email or web address].ANS4 Orig Print D/T: S: 10/30/2020 (7890) PAGE 2 Signed ReportCBC W/O [id number] 12:35:00* Test Item Value Reference Range Interpretation Comme nts WHITE BLOOD CELL (test code = WBC) [...] pg 28.9-34.4 N MEAN CELL HGB CONCETRATION ( test code = MCHC) 34.1 G/DL 32.1-34.5 N RED CELL DISTRIBUTION WIDTH (test code = RDW) 14.0 SD 11.5-14.5 N PLATELET COUNT (test code = PLT) 205 K/mm3 150-450 N MEAN PLATELET VOLUME (test c ode = MPV) 10.70 fL 7.0-9.6 H GLUCOSE BEDSIDE [id number] 12:29:00* Test Item Value Reference Range Interpretation Comme nts GLUCOSE BEDSIDE TESTING (trung t code = GLUBED) 140 mg/dL 70-110 H BASIC METABOLIC [id number] 06:50:00* Test Item Value Reference Range Interpretation Comme nts SODIUM (test code = NA) 140 MMOL/L 136-143 N POTASSIUM (test code = K) 3.7 MMOL/L 3.5-5.1 N CHLORIDE (test code = CL) 109 MMOL/L 98-107 H CARBON DIOXIDE (test code = CO2) 20 mmol/L 24-31 L GLUCOSE (test code = GLU) 82 mg/dL 70-104 N BLOOD UREA NITROGEN (test code = BUN) 12.3 MG/DL 7.0-21.0 N GLOMERULAR FILTRATION RATE (test code = GFR) >=60 max estimate >60 The estimated glomerular filtration rate is computed usingpatient race, age (>18), sex, and serum creatinine. If anyof the needed data elements are missing the Laboratory cannot compute an estimation of the glomerular filtration rate. CREATININE (test code = CREAT) 0.6 mg/dL 0.8-1.5 L CALCIUM (test code = CA) 8.8 mg/dL 8.8-10.2 N CBC W/AUTO [id number] 06:40:00* Test Item Value Reference Range Interpretation Comme nts WHITE BLOOD CELL (test code = WBC) 10.3 x10 3/uL 4.8-10.8 N RED BLOOD CELL (test code = RBC) 2.84 x10 6/uL 4.70-6.10 L HEMOGLOBIN (test code = HGB) 8.4 g/dL 14.5-20 L HEMATOCRIT (test code = HCT) 26.1 % 42.0-52.0 L MEAN CELL VOLUME (test code = MCV) 91.9 fL 80.0-94.0 N MEAN CELL HGB (test code = MCH) 29.6 pg 27-31 N MEAN CELL HGB CONCENTRATION (test code = MCHC) 32.2 G/DL 33-36.5 L RED CELL DISTRIBUTION WIDTH (test code = RDW) 15.1 % 12.9-16.9 N PLATELET COUNT (test code = PLT) 182 150-440 N MEAN PLATELET VOLUME (test c ode = MPV) 11.1 fL 8.9-12.4 N NEUTROPHIL % (test code = NT%) 64.2 [...] BA#) 0.07 x10 3/uL 0.0-0.20 N VANCOMYCIN [id number] 13:34:00* Test Item Value Reference Range Interpretation Comme nts VANCOMYCIN TROUGH (test code = VANCT) 14.4 mcg/ML 10.0-20.0 N Spec Comments: RN PLS DRAW VANCO 30MIN BEFORE DOSE DUE ON 01/30BASIC METABOLIC [id number] 04:08:00* Test Item Value Reference Range Interpretation Comme nts SODIUM (test code = NA) 138 MMOL/L 136-143 N POTASSIUM (test code = K) 3.7 MMOL/L 3.5-5.1 N CHLORIDE (test code = CL) 103 MMOL/L 98-107 N CARBON DIOXIDE (test code = CO2) 24 mmol/L 24-31 N GLUCOSE (test code = GLU) 90 mg/dL 70-104 N BLOOD UREA NITROGEN (test code = BUN) 14.5 MG/DL 7.0-21.0 N GLOMERULAR FILTRATION RATE (test code = GFR) >=60 max estimate >60 The estimated glomerular filtration rate is computed usingpatient race, age (>18), sex, and serum creatinine. If anyof the needed data elements are missing the Laboratory cannot compute an estimation of the glomerular filtration rate. CREATININE (test code = CREAT) 0.7 mg/dL 0.8-1.5 L CALCIUM (test code = CA) 8.8 mg/dL 8.8-10.2 N [id number] 04:08:00* Test Item Value Reference Range Interpretation Comme nts MAGNESIUM (test code = MAG) 1.7 mg/dL 1.4-2.6 N CBC W/AUTO [id number] 03:56:00* Test Item Value Reference Range Interpretation Comme nts WHITE BLOOD CELL (test code = WBC) 14.8 x10 3/uL 4.8-10.8 H RED BLOOD CELL (test code = RBC) 3.26 x10 6/uL 4.70-6.10 L HEMOGLOBIN (test code = HGB) 9.6 g/dL 14.5-20 L HEMATOCRIT (test code = HCT) 30.2 % 42.0-52.0 L MEAN CELL VOLUME (test code = MCV) 92.6 fL 80.0-94.0 N MEAN CELL HGB (test code = MCH) 29.4 pg 27-31 N MEAN CELL HGB CONCENTRATION (test code = MCHC) 31.8 G/DL 33-36.5 L RED CELL DISTRIBUTION WIDTH (test code = RDW) 15.8 % 12.9-16.9 N PLATELET COUNT (test code = PLT) 203 150-440 N MEAN PLATELET VOLUME (test code = MPV) 11.0 fL 8.9-12.4 N NEUTROPHIL % (test code = NT%) 76.3 [...] 0.09 x10 3/uL 0.0-0.20 N BASIC METABOLIC [id number] 21:22:00* Test Item Value Reference Range Interpretation Comme nts SODIUM (test code = NA) 135 MMOL/L 136-143 L POTASSIUM (test code = K) 3.8 MMOL/L 3.5-5.1 N CHLORIDE (test code = CL) 99 MMOL/L 98-107 N CARBON DIOXIDE (test code = CO2) 23 mmol/L 24-31 L GLUCOSE (test code = GLU) 103 mg/dL 70-104 N BLOOD UREA NITROGEN (test code = BUN) 14.3 MG/DL 7.0-21.0 N GLOMERULAR FILTRATION RATE (test code = GFR) >=60 max estimate >60 The estimated glomerular filtration rate is computed usingpatient race, age (>18), sex, and serum creatinine. If anyof the needed data elements are missing the Laboratory cannot compute an estimation of the glomerular filtration rate. CREATININE (test code = CREAT) 0.7 mg/dL 0.8-1.5 L CALCIUM (test code = CA) 9.1 mg/dL 8.8-10.2 N RENAL FUNCTION [id number] 21:22:00* Test Item Value Reference Range Interpretation Comme nts ALBUMIN (test code = ALB) 3.4 G/DL 3.5-5.0 L PHOSPHOROUS (test code = PHOS) 2.0 mg/dL 2.7-4.5 L LIVER FUNCTION [id number] 21:22:00* Test Item Value Reference Range Interpretation Comme nts TOTAL PROTEIN (test code = PROT) 5.6 g/dL 6.3-8.3 L BILIRUBIN TOTAL (test code = BILT) 0.5 mg/dL 0.2-1.0 N BILIRUBIN DIRECT (test code = BILD) <0.2 mg/dL 0.0-0.2 N SGOT/AST (test code = AST) 9 IU/L 10-34 L SGPT/ALT (test code = ALT) 7 U/L 10-44 L ALKALINE PHOSPHATASE (test c ode = ALKP) 63 U/L 45-120 N LACTIC [id number] 21:18:00* Test Item Value Reference Range Interpretation Comme nts LACTIC ACID (test code = LACT) 9.4 mg/dL 4.5-18.0 N PROTHROMBIN [id number] 21:12:00* Test Item Value Reference Range Interpretation Comme nts PROTHROMBIN TIME PATIENT (test code = PTP) 10.8 SECONDS 10.3-12.9 N INTERNATIONAL NORMAL RATIO (test code = INR) 0.96 INR UNIT 0.9-1.11 N The INR is usefu l only for monitoring anticoagulant therapy.It may be unreliable in the initial phase of antigoagulationand in unstable patients. Indication for Anticoagulation Recommended INR 1. Prevention of venous thomboembolism 2.0-3.0in high-risk patients; treatment of venousthrombosis and pulmonary embolism aftera course of heparin; prevention of systemicembolism in a variety of conditions, including atrial fibrillation and prothetic tissue heart valves, 2. Prosthetic mechanical heart valves; 2.5-3.5recurrent systemic embolism. THROMBOPLASTIN TIME [id number] 21:12:00* Test Item Value Reference Range [facility]ation [facility] PARTIAL (test code = PTT) 28.6 SECONDS 26.0-35.9 N INTERPRETATIVE DATA:Therapeutic range: Unfractionated heparin:47 - 71 seconds Argatroban:1.5 to 3 times the baseline PTT PROTHROMBIN [id number] 21:09:00* Test Item Value Reference Range Interpretation [facility] PROTHROMBIN TIME PATIENT (test code = PTP) 10.8 SECONDS 10.3-12.9 N INTERNATIONAL NORMAL RATIO (test code = INR) 0.96 INR UNIT 0.9-1.11 N The INR is usefu l only for monitoring anticoagulant therapy.It may be unreliable in the initial phase of antigoagulationand in unstable patients. Indication for Anticoagulation Recommended INR 1. Prevention of venous thomboembolism 2.0-3.0in high-risk patients; treatment of venousthrombosis and pulmonary embolism aftera course of heparin; prevention of systemicembolism in a variety of conditions, including atrial fibrillation and prothetic tissue heart valves, 2. Prosthetic mechanical heart valves; 2.5-3.5recurrent systemic embolism. THROMBOPLASTIN TIME [id number] 21:09:00* Test Item Value Reference Range Interpretation Comme [facility] THROMBOPLASTIN TIME PARTIAL (test code = PTT) SECONDS 26.0-35.9 CBC W/AUTO [id number] 21:08:00* Test Item Value Reference Range Interpretation Comme nts WHITE BLOOD CELL (test code = WBC) 16.4 x10 3/uL 4.8-10.8 H RED BLOOD CELL (test code = RBC) 3.41 x10 6/uL 4.70-6.10 L HEMOGLOBIN (test code = HGB) 10.1 g/dL 14.5-20 L HEMATOCRIT (test code = HCT) 31.2 % 42.0-52.0 L MEAN CELL VOLUME (test code = MCV) 91.5 fL 80.0-94.0 N MEAN CELL HGB (test code = MCH) 29.6 pg 27-31 N MEAN CELL HGB CONCENTRATION (test code = MCHC) 32.4 G/DL 33-36.5 L RED CELL DISTRIBUTION WIDTH (test code = RDW) 15.8 % 12.9-16.9 N PLATELET COUNT (test code = PLT) 217 150-440 N MEAN PLATELET VOLUME (test code = MPV) 11.5 fL 8.9-12.4 N NEUTROPHIL % (test code = NT%) 80.5 [...] 0.05 x10 3/uL 0.0-0.20 N CBC W/MANUAL [id number] 05:21:00* Test Item Value Reference Range Interpretation Comme nts WHITE BLOOD CELL (test code = WBC) 18.9 x10 3/uL 4.8-10.8 H RED BLOOD CELL (test code = RBC) 4.07 x10 6/uL 4.70-6.10 L HEMOGLOBIN (test code = HGB) 12.1 g/dL 14.5-20 L HEMATOCRIT (test code = HCT) 36.8 % 42.0-52.0 L MEAN CELL VOLUME (test code = MCV) 90.4 fL 80.0-94.0 N MEAN CELL HGB (test code = MCH) 29.7 pg 27-31 N MEAN CELL HGB CONCENTRATION (test code = MCHC) 32.9 G/DL 33-36.5 L RED CELL DISTRIBUTION WIDTH (test code = RDW) 15.8 % 12.9-16.9 N PLATELET COUNT (test code = PLT) 228 150-440 N MEAN PLATELET VOLUME (test c ode = MPV) 10.9 fL 8.9-12.4 N TOTAL CELLS COUNTED (test co de = TCC) 100 #CELLS SEGMENTED NEUTROPHILS (test code = SEG) 87 % 43-65 H LYMPHOCYTE (test code = LYMPH) 5 % 20.5-45.5 L MONOCYTE (test code = MON) 8 % 5.5-11.7 N PLATELET ESTIMATE (test code = PLTEST) ADEQUATE ADEQUATE PLATELET MORPHOLOGY (test co de = PLTMORPH) NORMAL NORMAL [id number] 05:20:00* Test Item Value Reference Range Interpretation Comme nts MAGNESIUM (test code = MAG) 1.8 mg/dL 1.4-2.6 N RENAL FUNCTION [id number] 05:20:00* Test Item Value Reference Range Interpretation Comme nts SODIUM (test code = NA) 138 MMOL/L 136-143 N POTASSIUM (test code = K) 4.5 MMOL/L 3.5-5.1 N CHLORIDE (test code = CL) 99 MMOL/L 98-107 N CARBON DIOXIDE (test code = CO2) 25 mmol/L 24-31 N GLUCOSE (test code = GLU) 129 mg/dL 70-104 H BLOOD UREA NITROGEN (test code = BUN) 12.7 MG/DL 7.0-21.0 N GLOMERULAR FILTRATION RATE (test code = GFR) >=60 max estimate >60 The estimated glomerular filtration rate is computed usingpatient race, age (>18), sex, and serum creatinine. If anyof the needed data elements are missing the Laboratory cannot compute an estimation of the glomerular filtration rate. CREATININE (test code = CREAT) 0.8 mg/dL 0.8-1.5 N ALBUMIN (test code = ALB) 3.6 G/DL 3.5-5.0 N CALCIUM (test code = CA) 9.4 mg/dL 8.8-10.2 N PHOSPHOROUS (test code = PHOS) 2.5 mg/dL 2.7-4.5 L CBC W/MANUAL [id number] 04:48:00* Test Item Value Reference Range Interpretation Comme nts WHITE BLOOD CELL (test code = WBC) 18.9 x10 3/uL 4.8-10.8 H RED BLOOD CELL (test code = RBC) 4.07 x10 6/uL 4.70-6.10 L HEMOGLOBIN (test code = HGB) 12.1 g/dL 14.5-20 L HEMATOCRIT (test code = HCT) 36.8 % 42.0-52.0 L MEAN CELL VOLUME (test code = MCV) 90.4 fL 80.0-94.0 N MEAN CELL HGB (test code = MCH) 29.7 pg 27-31 N MEAN CELL HGB CONCENTRATION (test code = MCHC) 32.9 G/DL 33-36.5 L RED CELL DISTRIBUTION WIDTH (test code = RDW) 15.8 % 12.9-16.9 N PLATELET COUNT (test code = PLT) 228 150-440 N MEAN PLATELET VOLUME (test c ode = MPV) 10.9 fL 8.9-12.4 N TOTAL CELLS COUNTED (test co de = TCC) #CELLS SEGMENTED NEUTROPHILS (test code = SEG) % 43-65 LYMPHOCYTE (test code = LYMPH) % 20.5-45.5 CBC W/MANUAL [id number] 04:48:00* Test Item Value Reference Range Interpretation Comme nts WHITE BLOOD CELL (test code = WBC) 18.9 x10 3/uL 4.8-10.8 H RED BLOOD CELL (test code = RBC) 4.07 x10 6/uL 4.70-6.10 L HEMOGLOBIN (test code = HGB) 12.1 g/dL 14.5-20 L HEMATOCRIT (test code = HCT) 36.8 % 42.0-52.0 L MEAN CELL VOLUME (test code = MCV) 90.4 fL 80.0-94.0 N MEAN CELL HGB (test code = MCH) 29.7 pg 27-31 N MEAN CELL HGB CONCENTRATION (test code = MCHC) 32.9 G/DL 33-36.5 L RED CELL DISTRIBUTION WIDTH (test code = RDW) 15.8 % 12.9-16.9 N PLATELET COUNT (test code = PLT) 228 150-440 N MEAN PLATELET VOLUME (test c ode = MPV) 10.9 fL 8.9-12.4 N TOTAL CELLS COUNTED (test co de = TCC) #CELLS SEGMENTED NEUTROPHILS (test code = SEG) % 43-65 LYMPHOCYTE (test code = LYMPH) % 20.5-45.5 SURGICAL [id number] 12:52:00 RUN DATE: 01/29/20 [facility] - LAB PAGE 1 RUN TIME: 1252 Specimen Inquiry RUN USER: INTERFACE ---- --------PATIENT: OTONIEL HENDERSON LOC: [id number] POD C U #: [id number] AGE/SX: 59/M ROOM: [facility] RE01/25/20[facility] DR: Cristopher Doty MD : 64 BED: 1 DIS: STATUS: ADM IN TLOC: SPEC #: [id number] RECD: 01/28/20-0355 STATUS: FAINA CASTANON #: [id number] SIMON: 01/28/20- [address] [facility] [address]: Cristopher Doty MD ENTERED:01/28/20-140 SP TYPE: SURG OTHR DR: Roxanna Primary or Family Physician Mio Gilbert MD No,DocORDERED: PATHGM3, PATHGM5/2, PATH SPEC, H E STAIN HISTOLOGY: TISSUE ID BLK PCS PARISH LEV / PROCEDURE DISPOSITION ____ ___ ___ ___ ___ COLON SEG NTUMR A 18 1 TISSUES: A. COLON SEGMENTAL [id number] - Sigmoid Colon Proximal Rectum Anastomatic Donuts, [...] fistula tract formation. - Acute serositis with microabscesses.- Resection margins, viable with acute inflammation and focal mucosal ulcer. Anastomotic "donuts": - Viable colonic mucosa with mild acute inflammation. - Acute serositis. - One benign lymph node. GROSS DESCRIPTION The specimen is received in a formalin-filled container labeled with at least two patient identifiers and "sigmoid colon, proximal rectum anastomotic donuts, small bowel with fistula".The specimen consists of a segment of large intestine (17 cm in length, 3.5-4 cm in diameter), a segment of small intestine (19 cm in length, 2 cm in diameter), and two ring-shaped (donuts) segments of intestine (2 x 1.7 x 1.5 cm, CONTINUED ON NEXT PAGE RUN DATE: 01/29/20 [facility] - LAB PAGE2 RUN TIME: 1252 Specimen Inquiry RUN USER: INTERFACE SPEC #: [id number] PATIENT: OTONIEL HENDERSON #[id number] (Continued) GROSS DESCRIPTION (Continued) 2.4 x 2 x 1.5 cm). The middle portion of the large intestine is rigid and thickened, reducing the luminal circumference from 5.5 cm to 3.5 cm circumference.At this site, there is an irregular area of serosal and soft tissue defects, measuring 4 x 4 cm. A s mall punctate lesion that communicates to the lumen [...] The ring-shaped "donuts", one with metal surgical staplesand the other with blue sutures, are grossly [...] intestine adjacent to serosal defect A14-A15: Entire ring- shaped donut #1 (with metal staple) A16-A18: Ring-shaped donut #2 (with blue sutures) FRAME TENDER/th MICROSCOPIC DESCRIPTION Microscopic examination performed. Signed SIGNATURE ON FILE Nita Ashford 01/29/20 1252 END OF REPORT BASIC METABOLIC [id number] 08:29:00* Test Item Value Reference Range Interpretation Comme nts SODIUM (test code = NA) 139 MMOL/L 136-143 N POTASSIUM (test code = K) 4.0 MMOL/L 3.5-5.1 N CHLORIDE (test code = CL) 100 MMOL/L 98-107 N CARBON DIOXIDE (test code = CO2) 23 mmol/L 24-31 L GLUCOSE (test code = GLU) 138 mg/dL 70-104 H BLOOD UREA NITROGEN (test code = BUN) 7.5 MG/DL 7.0-21.0 N GLOMERULAR FILTRATION RATE (test code = GFR) >=60 max estimate >60 The estimated glomerular filtration rate is computed usingpatient race, age (>18), sex, and serum creatinine. If anyof the needed data elements are missing the Laboratory cannot compute an estimation of the glomerular filtration rate. CREATININE (test code = CREAT) 0.8 mg/dL 0.8-1.5 N CALCIUM (test code = CA) 9.2 mg/dL 8.8-10.2 N [id number] 08:29:00* Test Item Value Reference Range Interpretation Comme nts MAGNESIUM (test code = MAG) 1.3 mg/dL 1.4-2.6 L CBC W/AUTO [id number] 08:04:00* Test Item Value Reference Range Interpretation Comme nts WHITE BLOOD CELL (test code = WBC) 20.3 x10 3/uL 4.8-10.8 H RED BLOOD CELL (test code = RBC) 4.65 x10 6/uL 4.70-6.10 L HEMOGLOBIN (test code = HGB) 13.6 g/dL 14.5-20 L HEMATOCRIT (test code = HCT) 42.3 % 42.0-52.0 N MEAN CELL VOLUME (test code = MCV) 91.0 fL 80.0-94.0 N MEAN CELL HGB (test code = MCH) 29.2 pg 27-31 N MEAN CELL HGB CONCENTRATION (test code = MCHC) 32.2 G/DL 33-36.5 L RED CELL DISTRIBUTION WIDTH (test code = RDW) 15.6 % 12.9-16.9 N PLATELET COUNT (test code = PLT) 248 150-440 N MEAN PLATELET VOLUME (test code = MPV) 10.6 fL 8.9-12.4 N NEUTROPHIL % (test code = NT%) 88.7 [...] 0.04 x10 3/uL 0.0-0.20 N Novel Coronavirus 2019 [id number] 14:20:00* Test Item Value Reference Range Interpretation Comme nts Novel Coronavirus 2019 nCoV (test code = COVID19) NEGATIVE Positive results are indicative of the presence ntKLBB-AxF-0 RNA, clinical correlation with patient historyand other diagnostic information is necessary to determinepatient infection status. Positive results do not rule outbacterial infection or co-infection with other viruses. Negative results do not preclude SARS-CoV-2 infection andshould not be used as the sole basis for patient managementdecisions. Negative results must be combined with otherclinical observations, patient history, and epidemiologicalinformation . Detection of SARS-CoV-2 RNA may be affected bysample collection methods, storage conditions, and/or stageof infection. Viral RNA mutations, vaccinations, antiviraltherapeutics, antibiotics, chemotherapeutic orimmunosuppressant drugs have not been evaluated for effectson detection. Results are for the identification of SARS-CoV-2 RNA usingthe [employer] M2000 System under the FDA Emergency UseAuthorization. The testing is performed by personneltrained in the procedures for the Sn[employer]li M2000 moleculardiagnostic SARS-CoV-2 assay in vitro. NEGATIVE Value reported toFirst Name: SAVITA Last Name:[facility] RESULTS READ BACK AND VERIFIEDby PJulianaLABJulianaRS, on 01/26/20, @ 1934.- XR ABDOMEN [id number] 14:18:00Patient Name: OTNOIEL HENDERSON Unit No: [id number] EXAMS: CPT CODE: [id number] XR ABDOMEN 1V [id number] one view supine 01/28/2020 CLINICAL INDICATION: Follow up NGT placement COMPARISON: CT abdomen and pelvis 01/26/2020 LOCATION: W1 IMPRESSION: The side port of an enteric tube projects over the d istal esophagus and should be advanced. There is no radiographic evidence for bowel obstruction. There are postsurgical changes in the right lower quadrant. A drainage catheter projects over the lefthemiabdomen and pelvis. The lung bases are well aerated. There are no acute-appearing skeletal abnormalities. at 1418 Reported and signed by: BESSIE HERRERA M.D. CC: José Antonio Velez MD; Cristopher Doty MD Technologist: Jordan Dudley Fluoro Time: DAP (Gy m2): Air Kerma (mGy): Trscr Dt/Tm: 01/28/2020 (1411) by:[email or web address] Printed Date/Time: 01/28/2020 (3838) [facility]: José Antonio Zamora MD [address] : 1960 Age: 59 Sex: [place] [address] Loc: P.0733 1 Exam Date: 01/28/2020 Status: ADM IN PH: FAX: PAGE 1 Signed ReportCOMPREHENSIVE METABOLIC [id number] 07:39:00* Test Item Value Reference Range Interpretation Comme nts SODIUM (test code = NA) 136 MMOL/L 136-143 N POTASSIUM (test code = K) 4.4 MMOL/L 3.5-5.1 N CHLORIDE (test code = CL) 102 MMOL/L 98-107 N CARBON DIOXIDE (test code = CO2) 23 mmol/L 24-31 L GLUCOSE (test code = GLU) 94 mg/dL 70-104 N BLOOD UREA NITROGEN (test code = BUN) 6.5 MG/DL 7.0-21.0 L GLOMERULAR FILTRATION RATE (test code = GFR) >=60 max estimate >60 The estimated glomerular filtration rate is computed usingpatient race, age (>18), sex, and serum creatinine. If anyof the needed data elements are missing the Laboratory cannot compute an estimation of the glomerular filtration rate. CREATININE (test code = CREAT) 0.7 mg/dL 0.8-1.5 L TOTAL PROTEIN (test code = PROT) 5.8 g/dL 6.3-8.3 L ALBUMIN (test code = ALB) 3.7 G/DL 3.5-5.0 N CALCIUM (test code = CA) 9.7 mg/dL 8.8-10.2 N BILIRUBIN TOTAL (test code = BILT) 0.4 mg/dL 0.2-1.0 N SGOT/AST (test code = AST) 14 IU/L 10-34 N SGPT/ALT (test code = ALT) 10 U/L 10-44 N ALKALINE PHOSPHATASE (test code = ALKP) 77 U/L 45-120 N [id number] 07:39:00* Test Item Value Reference Range Interpretation Comme nts MAGNESIUM (test code = MAG) 1.4 mg/dL 1.4-2.6 N CBC W/AUTO [id number] 07:12:00* Test Item Value Reference Range Interpretation Comme nts WHITE BLOOD CELL (test code = WBC) 12.7 x10 3/uL 4.8-10.8 H RED BLOOD CELL (test code = RBC) 4.52 x10 6/uL 4.70-6.10 L HEMOGLOBIN (test code = HGB) 13.3 g/dL 14.5-20 L HEMATOCRIT (test code = HCT) 40.4 % 42.0-52.0 L MEAN CELL VOLUME (test code = MCV) 89.4 fL 80.0-94.0 N MEAN CELL HGB (test code = MCH) 29.4 pg 27-31 N MEAN CELL HGB CONCENTRATION (test code = MCHC) 32.9 G/DL 33-36.5 L RED CELL DISTRIBUTION WIDTH (test code = RDW) 15.9 % 12.9-16.9 N PLATELET COUNT (test code = PLT) 249 150-440 N MEAN PLATELET VOLUME (test c ode = MPV) 10.8 fL 8.9-12.4 N NEUTROPHIL % (test code = NT%) 78.0 [...] = BA#) 0.10 x10 3/uL 0.0-0.20 N [id number] 15:08:00* Test Item Value Reference Range Interpretation Comme nts LITHIUM (test code = LITH) 0.5 mmol/L 0.6-1.2 L Detection Limit = 0.1 <0.1 indicates None DetectedPerformed At: [facility] [address] [id number] So MD Ph:[phone] [id number] 15:08:00* Test Item Value Reference Range Interpretation Comme nts LITHIUM (test code = LITH) 0.5 mmol/L 0.6-1.2 L Detection Limit = 0.1 <0.1 indicates None DetectedPerformed At: [facility] [address] [id number] So MD Ph:[phone] Novel Coronavirus 2019 [id number] 07:11:00* Test Item Value Reference Range Interpretation Comme nts Novel Coronavirus 2019 nCoV (test code = COVID19) NEGATIVE NEGATIVE Value reported toFirst Name: SAVITA Last Name:[facility] RESULTS READ BACK AND VERIFIEDby P.LAB.RS, on 01/26/20, @ 1934.COMPREHENSIVE METABOLIC PANEL 2020-01-27 04:39:00* Test Item Value Reference Range Interpretation Comme nts SODIUM (test code = NA) 137 MMOL/L 136-143 N POTASSIUM (test code = K) 4.2 MMOL/L 3.5-5.1 N CHLORIDE (test code = CL) 103 MMOL/L 98-107 N CARBON DIOXIDE (test code = CO2) 25 mmol/L 24-31 N GLUCOSE (test code = GLU) 87 mg/dL 70-104 N BLOOD UREA NITROGEN (test code = BUN) 5.5 MG/DL 7.0-21.0 L GLOMERULAR FILTRATION RATE (test code = GFR) >=60 max estimate >60 The estimated glomerular filtration rate is computed usingpatient race, age (>18), sex, and serum creatinine. If anyof the needed data elements are missing the Laboratory cannot compute an estimation of the glomerular filtration rate. CREATININE (test code = CREAT) 0.7 mg/dL 0.8-1.5 L TOTAL PROTEIN (test code = PROT) 6.4 g/dL 6.3-8.3 N ALBUMIN (test code = ALB) 3.7 G/DL 3.5-5.0 N CALCIUM (test code = CA) 9.4 mg/dL 8.8-10.2 N BILIRUBIN TOTAL (test code = BILT) 0.3 mg/dL 0.2-1.0 N SGOT/AST (test code = AST) 12 IU/L 10-34 N SGPT/ALT (test code = ALT) 9 U/L 10-44 L ALKALINE PHOSPHATASE (test code = ALKP) 76 U/L 45-120 N CBC W/AUTO [id number] 04:21:00* Test Item Value Reference Range Interpretation Comme nts WHITE BLOOD CELL (test code = WBC) 9.1 x10 3/uL 4.8-10.8 N RED BLOOD CELL (test code = RBC) 4.40 x10 6/uL 4.70-6.10 L HEMOGLOBIN (test code = HGB) 13.0 g/dL 14.5-20 L HEMATOCRIT (test code = HCT) 40.0 % 42.0-52.0 L MEAN CELL VOLUME (test code = MCV) 90.9 fL 80.0-94.0 N MEAN CELL HGB (test code = MCH) 29.5 pg 27-31 N MEAN CELL HGB CONCENTRATION (test code = MCHC) 32.5 G/DL 33-36.5 L RED CELL DISTRIBUTION WIDTH (test code = RDW) 16.5 % 12.9-16.9 N PLATELET COUNT (test code = PLT) 240 150-440 N MEAN PLATELET VOLUME (test c ode = MPV) 10.7 fL 8.9-12.4 N NEUTROPHIL % (test code = NT%) 63.9 [...] 3/uL 0.0-0.20 N - CT ABD PELVIS [id number] 09:58:00Patient Name: OTONIEL HENDERSON Unit No: [id number] EXAMS: CPT CODE: [id number] CT ABD PELVIS [id number] CT abdomen and pelvis with IV contrast. Indication: Abdominal pain Location: A1 Comparison: None Technique: CT images of the abdomen and pelvis were obtained from the diaphragm to the pubic symphysis after the administration of intravenous contrast. Coronal and sagittal reformats are provided. One or more of the following dose reduction techniques were used: Automated exposure control, adju stment of the mA and/or kV according to patient size, and/or utilization of iterative reconstruction technique. Findings: Lungs bases: There is atelectasis/scarring at the lung bases. There is a leftlower lobe calcified granuloma. Liver: There are 2 calcified granulomas. Gallbladder: There are no r adiodense gallstones. There is no significant gallbladder wall [...] within normal limits. Peritoneum: There is no a scites or pneumoperitoneum. Pelvis: The urinary bladder appears smooth-walled. The prostate is not enlarged. Vascular: There is no abdominal aortic aneurysm. There are moderate arterial atherosclerotic calcifications. Skeletal: There is no acute fracture. There is mild retrolisthesis of L4 over L5.Multilevel intervertebral cisterns advanced at L5-S1 with endplate [...] renal cyst. Additional findings as above. [facility]: Russ William MD [address] DOB: 1960 Age: 59 Sex: M [place] [address] Loc: P.0723 1 Exam Date: 01/26/2020 Status: ADM IN PH: FAX: PAGE 1 Signed Report (CONTINUED) P atient Name: OTONIEL HENDERSON Unit No: [id number] EXAMS: CPT CODE: [id number] CT ABD PELVIS [id number] (Continued) at 0958 Reported and signed by: OTONIEL GOTTLIEB M.D. CC: Cristopher Doty MD; Russ William MD Technologist: ANTONIO Martin(R)(CT) CTDI: 11.68 DLP: 602 Trscr Dt/Tm: 01/26/2020 (0958) by:[email or web address] Printed Date/Time: 01/26/2020 (1001) [facility] Phys: - Russ William MD [address] DOB: 1960 Age: 59 Sex: M [place] [address] Loc: P.0723 1 Exam Date: 01/26/2020 Status: ADM IN PH: FAX: PAGE 2 Signed ReportCOMPREHENSIVE METABOLIC [id number] 05:50:00* Test Item Value Reference Range Interpretation Comme nts SODIUM (test code = NA) 137 MMOL/L 136-143 N POTASSIUM (test code = K) 4.8 MMOL/L 3.5-5.1 N CHLORIDE (test code = CL) 103 MMOL/L 98-107 N CARBON DIOXIDE (test code = CO2) 23 mmol/L 24-31 L GLUCOSE (test code = GLU) 92 mg/dL 70-104 N BLOOD UREA NITROGEN (test code = BUN) 8.6 MG/DL 7.0-21.0 N GLOMERULAR FILTRATION RATE (test code = GFR) >=60 max estimate >60 The estimated glomerular filtration rate is computed usingpatient race, age (>18), sex, and serum creatinine. If anyof the needed data elements are missing the Laboratory cannot compute an estimation of the glomerular filtration rate. CREATININE (test code = CREAT) 0.8 mg/dL 0.8-1.5 N TOTAL PROTEIN (test code = PROT) 5.5 g/dL 6.3-8.3 L ALBUMIN (test code = ALB) 3.3 G/DL 3.5-5.0 L CALCIUM (test code = CA) 8.8 mg/dL 8.8-10.2 N BILIRUBIN TOTAL (test code = BILT) 0.2 mg/dL 0.2-1.0 N SGOT/AST (test code = AST) 12 IU/L 10-34 N SGPT/ALT (test code = ALT) 7 U/L 10-44 L ALKALINE PHOSPHATASE (test code = ALKP) 74 U/L 45-120 N CBC W/AUTO [id number] 04:55:00* Test Item Value Reference Range Interpretation Comme nts WHITE BLOOD CELL (test code = WBC) 8.1 x10 3/uL 4.8-10.8 N RED BLOOD CELL (test code = RBC) 4.26 x10 6/uL 4.70-6.10 L HEMOGLOBIN (test code = HGB) 12.7 g/dL 14.5-20 L HEMATOCRIT (test code = HCT) 39.3 % 42.0-52.0 L MEAN CELL VOLUME (test code = MCV) 92.3 fL 80.0-94.0 N MEAN CELL HGB (test code = MCH) 29.8 pg 27-31 N MEAN CELL HGB CONCENTRATION (test code = MCHC) 32.3 G/DL 33-36.5 L RED CELL DISTRIBUTION WIDTH (test code = RDW) 16.7 % 12.9-16.9 N PLATELET COUNT (test code = PLT) 236 150-440 N MEAN PLATELET VOLUME (test c ode = MPV) 10.6 fL 8.9-12.4 N NEUTROPHIL % (test code = NT%) 47.4 [...] 0.15 x10 3/uL 0.0-0.20 N COMPREHENSIVE METABOLIC [id number] 18:44:00* Test Item Value Reference Range Interpretation Comme nts SODIUM (test code = NA) 137 MMOL/L 136-143 N POTASSIUM (test code = K) 4.2 MMOL/L 3.5-5.1 N CHLORIDE (test code = CL) 100 MMOL/L 98-107 N CARBON DIOXIDE (test code = CO2) 24 mmol/L 24-31 N GLUCOSE (test code = GLU) 116 mg/dL 70-104 H BLOOD UREA NITROGEN (test code = BUN) 9.0 MG/DL 7.0-21.0 N GLOMERULAR FILTRATION RATE (test code = GFR) >=60 max estimate >60 The estimated glomerular filtration rate is computed usingpatient race, age (>18), sex, and serum creatinine. If anyof the needed data elements are missing the Laboratory cannot compute an estimation of the glomerular filtration rate. CREATININE (test code = CREAT) 0.9 mg/dL 0.8-1.5 N TOTAL PROTEIN (test code = PROT) 6.6 g/dL 6.3-8.3 N ALBUMIN (test code = ALB) 3.8 G/DL 3.5-5.0 N CALCIUM (test code = CA) 9.3 mg/dL 8.8-10.2 N BILIRUBIN TOTAL (test code = BILT) 0.2 mg/dL 0.2-1.0 N SGOT/AST (test code = AST) 13 IU/L 10-34 N SGPT/ALT (test code = ALT) 10 U/L 10-44 N ALKALINE PHOSPHATASE (test code = ALKP) 77 U/L 45-120 N PROTHROMBIN [id number] 18:32:00* Test Item Value Reference Range Interpretation Comme nts PROTHROMBIN TIME PATIENT (test code = PTP) 10.4 SECONDS 10.3-12.9 N INTERNATIONAL NORMAL RATIO (test code = INR) 0.92 INR UNIT 0.9-1.11 N The INR is usefu l only for monitoring anticoagulant therapy.It may be unreliable in the initial phase of antigoagulationand in unstable patients. Indication for Anticoagulation Recommended INR 1. Prevention of venous thomboembolism 2.0-3.0in high-risk patients; treatment of venousthrombosis and pulmonary embolism aftera course of heparin; prevention of systemicembolism in a variety of conditions, including atrial fibrillation and prothetic tissue heart valves, 2. Prosthetic mechanical heart valves; 2.5-3.5recurrent systemic embolism. CBC W/AUTO [id number] 18:26:00* Test Item Value Reference Range Interpretation Comme nts WHITE BLOOD CELL (test code = WBC) 8.5 x10 3/uL 4.8-10.8 N RED BLOOD CELL (test code = RBC) 4.23 x10 6/uL 4.70-6.10 L HEMOGLOBIN (test code = HGB) 12.6 g/dL 14.5-20 L HEMATOCRIT (test code = HCT) 39.0 % 42.0-52.0 L MEAN CELL VOLUME (test code = MCV) 92.2 fL 80.0-94.0 N MEAN CELL HGB (test code = MCH) 29.8 pg 27-31 N MEAN CELL HGB CONCENTRATION (test code = MCHC) 32.3 G/DL 33-36.5 L RED CELL DISTRIBUTION WIDTH (test code = RDW) 16.7 % 12.9-16.9 N PLATELET COUNT (test code = PLT) 259 150-440 N MEAN PLATELET VOLUME (test c ode = MPV) 10.5 fL 8.9-12.4 N NEUTROPHIL % (test code = NT%) 51.7 [...] 0.10 x10 3/uL 0.0-0.[address] head/brain [facility] [address] [place] [address] Patient Name: Otoniel Henderson Medical Record#: [id number] Address: [address] [place] [address] City/State/Zip: [place] [address]: Alexis Pettit MD Insurance: Self Pay /Age/Sex: 1960/61/M Admit/Reg Date: 05/20/[address]: Marii Bowers NP Location: MED/ PCP: Pcp-Md PAULETTE Buenrostro Date of Service: 05/20/22 Order (s): CT head/brain wo contrast CPT Code: 51664 Report Number: [id number] Reason for Exam: lightheadedness Exam: CT of the brain without contrast. History: Lightheadedness Dictation Location: [facility] Technique: Contiguous axial CT images were obtained [...] cisterns are patent. There is no mass effector midline shift. There is no evidence for [...] Dictated By: Otoniel Gottlieb MD 05/20/221919 Signed By:Otoniel Gottlieb MD 05/20/222200 TD/TT: 05/20/221919 Tech: [id number] cc: [id number]; PCPNO* Marii Bowers NP; Pcp- Md Porter [facility] [address] [place] [address] Patient Name: Otoniel Henderson Medical Record#: [id number] Address: [address] [facility] City/State/Zip: [place] [address]: Alexis Pettit MD Insurance: Self Pay /Age/Sex: 1960/61/M Admit/Reg Date: 05/20/[address]: Marii Bowers NP Location: [facility]/ PCP: Pcp-Md PAULETTE Buenrostro Date of Service: 05/20/22 Order (s): XR chest 1V CPT Code: 70922 Report Number: [id number] Reason for Exam: hypotension CHEST 1 VIEW [...] No acute cardiopulmonary finding is identified. LOCATION: 6 Electronically signed by: Eugenio Elam MD 05/20/2022 5:13 PM CDT Dictated By: Eugenio Elam MD 05/20/221702 Signed By: Eugenio Elam MD 05/20/221715 TD/TT: 05/20/221702 Tech: [facility] cc: [id number]; PCPNO* Marii Bowers NP; [facility] ED ElectrocardiogramSt. [address] [address] Patient Name: Otoniel Henderson Medical Record#: [id number] Address: [address] [place] [address] City/State/Zip: [place] [address]: Erickson Abraham MD Phone: Insurance: [facility] Medicare Advantage /Age/Sex: 1960/61/M Medicaid [place] Admit/Reg Date: 05/20/[address]: Marii Bowers NP Location: [address] PCP: Md PAULETTE Dao Date of Service: 05/20/22 Order (s): EKG ED Electrocardiogram CPT Code: 95691 Report Number: [id number] Reason for Exam: hypotension Sinus or ectopic atrial rhythm Short AK interval Summary: Borderline ECG Dictated By: Luis Jean MD 05/20/221810 Signed By: Luis Jean MD 05/21/221822 TD/TT: 05/20/221810 Tech: [facility] cc: SIRISHA; PCPROXANNA* Marii Bowers NP; Pcp-Md PAULETTE Buenrostro
--- NOTE | 2024-11-01 11:05 | RAD REPORT ---
EXAMINATION: XR RIGHT FOOT CLINICAL INDICATION: Male, 64 years old. PAIN TECHNIQUE: Multiple views of the right foot were obtained. COMPARISON: No prior exam. FINDINGS: Heterotopic bone formation is seen distal shaft of the second metatarsal compatible with st ress fracture. Tiny plantar calcaneal spur.
--- NOTE | 2024-11-01 11:12 | EDPHYS ---
Physician Documentation [facility] Name: Gregory Dumont Age: 64 yrs Sex: Male : 1960 Arrival Date: 11/01/2024 Time: 10:22 Bed 19 Private MD: ED Physician Marsha Serrano HPI: 11/01 10:29 This 64 yrs old Male presents to ER via EMS with complaints of Foot Pain. sp3 10:29 64-year-old male with history of alcoholism, bipolar disease, hypertension, chronic sp3 foot pain and plantar fasciitis presents by EMS for right heel and plantar pain. Patient called EMS from the senior care. There was a physician there who stated that they would order an outpatient x-ray and administer anti-inflammatory pain medication however patient still elected to come to the ED. He denies any other symptoms other than right medial heel pain extending into the plantar fascia. No trauma or fall reported. ROS otherwise negative.. Historical: - Allergies: 10:26 No Known Allergies; kc6 - PMHx: 10:24 adhd; Alcoholism; Anxiety; Bipolar disorder; Hypertensive disorder; strokes x 3; kc6 10:26 hepatitis; hyperlipidemia; Kidney disease; kc6 - PSHx: 10:24 colon resection; knee replacements; kc6 - Immunization history:: Adult Immunizations unknown. - Infectious Disease History:: Denies. - Social history:: Smoking status: unknown. ROS: 10:30 Constitutional: Negative for fever, chills, and weight loss, Eyes: Negative for injury, sp3 pain, redness, and discharge, Cardiovascular: Negative for chest pain, palpitations, and edema, Respiratory: Negative for shortness of breath, cough, wheezing, and pleuritic chest pain, Abdomen/GI: Negative for abdominal pain, nausea, vomiting, diarrhea, and constipation, Back: Negative for injury and pain, Neuro: Negative for headache, weakness, numbness, tingling, and seizure, Psych: Negative for depression, anxiety, suicide ideation, homicidal ideation, and hallucinations, Allergy/Immunology: Negative for hives, rash, and allergies, Endocrine: Negative for neck swelling, polydipsia, polyuria, polyphagia, and marked weight changes, 10:30 All other systems are negative, Exam: 10:30 Constitutional: This is a well developed, well nourished patient who is awake, alert, sp3 and in no acute distress. Neck: Trachea midline, no thyromegaly or masses palpated, and no cervical lymphadenopathy. Supple, full range of motion without nuchal rigidity, or vertebral point tenderness. No Meningismus. Chest/axilla: Normal chest wall appearance and motion. Nontender with no deformity. No lesions are appreciated. Cardiovascular: Regular rate and rhythm with a normal S1 and S2. No gallops, murmurs, or rubs. Normal PMI, no JVD. No pulse deficits. Respiratory: Lungs have equal breath sounds bilaterally, clear to auscultation and percussion. No rales, rhonchi or wheezes noted. No increased work of breathing, no retractions or nasal flaring. Abdomen/GI: Soft, non-tender, with normal bowel sounds. No distension or tympany. No guarding or rebound. No evidence of tenderness throughout. Back: No spinal tenderness. No costovertebral tenderness. Full range of motion. Skin: Warm, dry with normal turgor. Normal color with no rashes, no lesions, and no evidence of cellulitis. Psych: Awake, alert, with orientation to person, place and time. Behavior, mood, and affect are within normal limits. 10:30 Musculoskeletal/extremity: . 10:36 Musculoskeletal/extremity: Mild pain to palpation on the medial right side of the heel. sp3 No erythema or signs of cellulitis or swelling. Pain extends on palpation to the plantar fascia. Distal neurovascular exam is normal. Poor nail condition consistent with probable chronic fungal infection. DP pulses present.. Vital Signs: 10:23 BP 137 / 87; Pulse 70; Resp 16 S; Temp 97.7(O); Pulse Ox 94% on R/A; Pain 10/10; kc6 12:34 BP 134 / 80; Pulse 75; Resp 15 S; Pulse Ox 99% on R/A; kc6 10:23 Pain Scale: Adult kc6 MDM: 10:24 Medical Screening Exam initiated sp3 10:36 Data reviewed: vital signs, nurses notes, EMS record. ED course: 64-year-old male with sp3 right foot tendinitis versus plantar fasciitis. Clinically I am not highly suspicious of gout, vascular pathology, infection, or any other critical process. Will obtain foot x-ray and if negative treat with NSAID and discharge patient home.. 11:08 ED course: Stress fracture of the second metatarsal noted as per x-ray. We will sp3 discharge on tramadol and put patient in a postop shoe. Patient not appropriate for crutches. Will communicate this with senior care to minimize weightbearing.. 11/01 10:23 Order name: Foot Right 2 View XRAY; Complete Time: 11:06 sp3 11/01 11:13 Order name: Ortho shoe; Complete Time: 11:14 sp3 Administered Medications: No medications were administered Disposition Summary: 11/01/24 11:12 Discharge Ordered Notes: Location: Home sp3 Condition: Stable sp3 Diagnosis - Left foot stress fracture second metatarsal sp3 Followup: sp3 - With: Panfilo Ruiz MD - When: Upon discharge from the Emergency Department - Reason: Recheck today's complaints Discharge Instructions: - Discharge Summary Sheet sp3 - Stress Fracture sp3 Forms: - Medication Reconciliation Form sp3 - Antibiotic Education sp3 - Prescription Opioid Use sp3 - Patient Portal Instructions sp3 - Leadership Thank You Letter sp3 Prescriptions: - Tramadol 50 mg Oral Tablet - take 1 tablet ORAL route every 8 hours as needed; 12 tablet; Refills: 0, sp3 Product Selection Permitted Signatures: Dispatcher [employer] EDMS Marsha Serrano MD MD sp3 Kimberly Aquino RN RN kc6
--- NOTE | 2024-11-01 11:12 | ER ---
Nurse's Notes [facility] Name: Gregory Dumont Age: 64 yrs Sex: Male : 1960 Arrival Date: 11/01/2024 Time: 10:22 Bed 19 Private MD: Diagnosis: Left foot stress fracture second metatarsal Presentation: 11/01 10:23 Chief complaint: EMS states: they were toned out to [facility] for right foot pain kc6 07/26. denies injury. reports hx of plantar fasc. Coronavirus screen: At this time, the client does not indicate any symptoms associated with coronavirus-19. Ebola Screen: No symptoms or risks identified at this time. Initial Sepsis Screen: Does the patient meet any 2 criteria? No. Patient's initial sepsis screen is negative. Does the patient have a suspected source of infection? No. Patient's initial sepsis screen is negative. Risk Assessment: Do you want to hurt yourself or someone else? Patient reports no desire to harm self or others. Onset of symptoms was November 01, 2024. 10:23 Method Of Arrival: EMS: [facility] kc6 10:23 Acuity: MARION 4 kc6 Historical: - Allergies: 10:26 No Known Allergies; kc6 - PMHx: 10:24 adhd; Alcoholism; Anxiety; Bipolar disorder; Hypertensive disorder; strokes x 3; kc6 10:26 hepatitis; hyperlipidemia; Kidney disease; kc6 - PSHx: 10:24 colon resection; knee replacements; kc6 - Immunization history:: Adult Immunizations unknown. - Infectious Disease History:: Denies. - Social history:: Smoking status: unknown. Screenin:25 [facility] ED Fall Risk Assessment (Adult) History of falling in the last 3 months, kc6 including since admission No falls in past 3 months (0 pts) Confusion or Disorientation No (0 pts) Intoxicated or Sedated No (0 pts) Impaired Gait No (0 pts) Mobility Assist Device Used No (0 pt) Altered Elimination No (0 pt) Score/Fall Risk Level 0 - 2 = Low Risk Oriented to surroundings, Maintained a safe environment, Educated pt \T\ family on fall prevention, incl call for assistance when getting out of bed. Abuse screen: Denies threats or abuse. Denies injuries from another. Nutritional screening: No deficits noted. Tuberculosis screening: No symptoms or risk factors identified. Assessment: 11:27 Reassessment: nurse to nurse report given to NIKI Toure at [facility]. she reports pt kc6 fell, couldn't get to his call light, and called the disaster recovery consultant. informed her that I will make the ED MD aware. she is arranging transport. 12:04 Reassessment: ETA for [facility] is 30min. kc6 12:34 Reassessment: Patient appears in no apparent distress at this time. No changes from kc6 previously documented assessment. Patient and/or family updated on plan of care and expected duration. Pain level reassessed. Vital Signs: 10:23 BP 137 / 87; Pulse 70; Resp 16 S; Temp 97.7(O); Pulse Ox 94% on R/A; Pain 10/10; kc6 12:34 BP 134 / 80; Pulse 75; Resp 15 S; Pulse Ox 99% on R/A; kc6 10:23 Pain Scale: Adult kc6 ED Course: 10:23 Patient arrived in ED. kc6 10:23 Marsha Serrano MD is Attending Physician. sp3 10:24 Triage completed. kc6 10:24 Arm band placed on. kc6 10:25 Patient has correct armband on for positive identification. Bed in low position. Call kc6 light in reach. Side rails up X2. Pulse ox on. NIBP on. Door closed. Noise minimized. Lights dimmed. Pillow given. 10:25 Patient maintains SpO2 saturation greater than 95% on room air. kc6 10:26 Kimberly Aquino RN is Primary Nurse. kc6 10:51 Foot Right 2 View XRAY In Process Unspecified. EDMS 11:11 Panfilo Ruiz MD is Referral Physician. sp3 11:18 Ortho shoe applied to right foot. kc6 12:22 Assisted with urinal. kc6 12:35 No provider procedures requiring assistance completed. Patient did not have IV access kc6 during this emergency room visit. Administered Medications: No medications were administered Medication: 12:35 VIS not applicable for this client. kc6 Outcome: 11:12 Discharge ordered by . sp3 12:35 Discharged to [facility]. Report called to NIKI Toure kc6 12:35 Condition: good 12:35 Discharge instructions given to patient, [facility], EMS, Instructed on discharge instructions, follow up and referral plans. medication usage, Demonstrated understanding of instructions, follow-up care, medications, Prescriptions given X 1, 12:35 Patient left the ED. kc6 Signatures: Dispatcher [employer] EDMS Marsha Serrano MD MD sp3 Kimberly Aquino RN RN kc6
[2024-11-02 02:56] VITALS: BP 134/80; TEMP 97.7; O2SAT 99
== END 2024-11-01 12:35 | disposition home or self-care (01) ==
LOC: ER 10:22
DX: M84.377A Stress fracture, right toe(s), initial encounter for fracture (principal)
CPT/HCPCS: 99284

== ENCOUNTER 2024-11-06 17:36 | Emergency (ER) | payer OTHER ==
--- NOTE | 2024-11-06 18:28 | RAD REPORT ---
EXAM: Foot Right 3 View HISTORY: PAIN COMPARISON: 11/01/2024 FINDINGS: Bones: No acute fracture identified. Healing second metatarsal fracture with exuberant periosteal robson ction. Alignment:No significant malalignment. Degenerative changes:Plantar aspect calcaneal spurs. Other: n/a IMPRESSION: No evidence of acute osseous abnormality involving the imaged foot. Healing nondisplaced second metat arsal fracture which may be a stress fracture.
--- NOTE | 2024-11-06 18:47 | ER ---
Nurse's Notes [facility] Name: Gregory Dumont Age: 64 yrs Sex: Male : 1960 Arrival Date: 11/06/2024 Time: 17:36 Bed 15 Private MD: Diagnosis: Stress fracture, left foot, subsequent encounter for fracture with routine healing Presentation: 11/06 17:42 Chief complaint: EMS states: toned out to [facility] for pain to right foot. Nurse said me1 he fractured his right foot 5days ago. Coronavirus screen: Vaccine status:. 17:42 Method Of Arrival: EMS: [facility] me1 17:45 Coronavirus screen: Vaccine status: Patient reports receiving the 2nd dose of the covid me1 vaccine. Ebola Screen: No symptoms or risks identified at this time. Initial Sepsis Screen: Does the patient meet any 2 criteria? No. Patient's initial sepsis screen is negative. Does the patient have a suspected source of infection? No. Patient's initial sepsis screen is negative. Risk Assessment: Do you want to hurt yourself or someone else? Patient reports no desire to harm self or others. Onset of symptoms is unknown. 17:45 Acuity: MARION 4 me1 Triage Assessment: 17:46 Musculoskeletal: No signs and/or symptoms reported regarding the musculoskeletal system.ss 17:46 General: Appears uncomfortable, well developed, well nourished, Behavior is calm, me1 cooperative, appropriate for age. Pain: Complains of pain in right foot Pain does not radiate. Pain currently is 8 out of 10 on a pain scale. Quality of pain is described as sharp, Pain began suddenly, Is continuous. EENT: No signs and/or symptoms were reported regarding the EENT system. Neuro: Level of Consciousness is awake, alert, obeys commands, Oriented to person, situation, Speech is slurred, at baseline from previous CVA. Cardiovascular: Patient's skin is warm and dry. Respiratory: Airway is patent Respiratory effort is even, unlabored, Respiratory pattern is regular, symmetrical. GI: No signs and/or symptoms were reported involving the gastrointestinal system. : No signs and/or symptoms were reported regarding the genitourinary system. Derm: Skin is intact, is healthy with good turgor, Skin is pink, warm \T\ dry. Historical: - Allergies: 17:46 No Known Allergies; ss - PMHx: 17:46 adhd; Alcoholism; Anxiety; Bipolar disorder; Hepatitis; Hyperlipidemia; Hypertensive ss disorder; kidney disease; strokes x 3; - PSHx: 17:46 colon resection; knee replacements; ss - Immunization history:: Adult Immunizations up to date. - Infectious Disease History:: Denies. - Social history:: Smoking status: Patient reports the use of cigarette tobacco products, smokes one-half pack cigarettes per day. Screenin:48 [facility] ED Fall Risk Assessment (Adult) History of falling in the last 3 months, me1 including since admission No falls in past 3 months (0 pts) Confusion or Disorientation No (0 pts) Intoxicated or Sedated No (0 pts) Impaired Gait No (0 pts) Mobility Assist Device Used No (0 pt) Altered Elimination No (0 pt) Score/Fall Risk Level 0 - 2 = Low Risk Maintained a safe environment, Provided non-skid footwear, Hourly rounding (assess needs \T\ fall precautionary measures) done. Abuse screen: Denies threats or abuse. Nutritional screening: No deficits noted. Tuberculosis screening: No symptoms or risk factors identified. Assessment: 17:48 General: See triage assessment.. me1 19:13 Reassessment: Called report to CONNIE Lindo at [facility] who is setting up [facility] transportation for patient to go back. Vital Signs: 17:45 BP 136 / 84; Pulse 71; Resp 16; Temp 97.9; Pulse Ox 97% ; Weight 83.46 kg; Height 5 ft. me1 11 in. ; Pain 8/10; 18:00 BP 125 / 78; Pulse 75; Resp 16; Pulse Ox 94% ; me1 19:00 BP 146 / 81; Pulse 69; Resp 15; Pulse Ox 97% ; me1 20:00 BP 118 / 81; Pulse 71; Resp 16; Pulse Ox 96% ; me1 21:00 BP 136 / 84; Pulse 76; Resp 16; Pulse Ox 96% ; me1 22:00 BP 132 / 72; Pulse 57; Resp 16; Temp 98.4; Pulse Ox 94% ; me1 17:45 Body Mass Index 25.66 (83.46 kg, 180.34 cm) ut1 17:45 Pain Scale: Adult [facility] ED Course: 17:41 Velasquez Peguero FNP-C [facility]5 17:41 [facility] MD is Attending Physician. dr5 17:41 Aura Wang, RN is Primary Nurse. ss 17:41 Patient arrived in ED. me1 17:46 Triage completed. ss 17:46 Arm band placed on Patient placed in an exam room. me1 17:48 Patient has correct armband on for positive identification. Bed in low position. Call me1 light in reach. Side rails up X2. Provided Education on: POC. Verbalized understanding.. Client placed on continuous cardiac and pulse oximetry monitoring. NIBP monitoring applied. Pulse ox on. NIBP on. 17:48 No provider procedures requiring assistance completed. me1 18:11 Primary Nurse role handed off by Aura Wang, NIKI me1 18:11 Shama Gibson, NIKI is Primary Nurse. me1 18:21 Foot Right 3 View XRAY In Process Unspecified. EDMS 19:34 [place] from [facility] ETA is 1 hour and [address] rv1 conditions. 22:11 Patient did not have IV access during this emergency room visit. me1 Administered Medications: 18:51 Drug: Ketorolac IM 30 mg IM once Route: IM; Site: right deltoid; me1 18:51 Follow up: Response: No adverse reaction; Pain is decreased me1 19:58 Follow up: Response: No adverse reaction; Pain is decreased me1 Medication: 17:48 VIS not applicable for this client. me1 Outcome: 18:46 Discharge ordered by MD. dr5 22:11 Discharged to care home. Report called to CONNIE Lindo me1 22:11 Condition: stable 22:11 Discharge instructions given to patient, care home, Instructed on discharge instructions, follow up and referral plans. medication usage, Demonstrated understanding of instructions, follow-up care, medications, Prescriptions given X 1, 22:12 Patient left the ED. me1 Signatures: Dispatcher [employer] EDMS Aura Wang, NIKI RN Traa Humphrey rv1 Shama Gibson RN RN me1 Velasquez Peguero FNP-C MAINTENANCE PAINTER-Cdr5 Corrections: (The following items were deleted from the chart) 18:07 17:42 Chief complaint: EMS states: toned out to [facility] for pain to right foot. Nurse ut1 said he fractured his right foot 5days ago. 18: 17:42 Coronavirus screen: Vaccine status: [facility] 18: 17:42 Method Of Arrival: EMS: [facility] 18: 17:45 Coronavirus screen: Vaccine status: Patient reports receiving the 2nd dose of the me1 covid vaccine. 18: 17:45 Ebola Screen: No symptoms or risks identified at this time. [facility] 18: 17:45 Initial Sepsis Screen: Does the patient meet any 2 criteria? No. Patient's ut1 initial sepsis screen is negative. Does the patient have a suspected source of infection? No. Patient's initial sepsis screen is negative. 18: 17:45 Risk Assessment: Do you want to hurt yourself or someone else? Patient reports no [facility] desire to harm self or others. 18: 17:45 Onset of symptoms is unknown. [facility] 18:07 17:45 BP 136 / 84; Pulse 71bpm; Resp 16bpm; Pulse Ox 97%; Temp 97.9F; 83.46 kg; Height me1 5 ft. 11 in.; BMI: 25.6; Pain 8/10, Adult; 18: 17:45 Acuity: MARION 4 [facility] 18:08 17:46 General: Appears uncomfortable, well developed, well nourished, Behavior is calm, me1 cooperative, appropriate for age, 18:08 17:46 Pain: Complains of pain in right foot Pain does not radiate. Pain currently is 8 me1 out of 10 on a pain scale. Quality of pain is described as sharp, Pain began suddenly, Is continuous, 18:08 17:46 EENT: No signs and/or symptoms were reported regarding the EENT system. [facility] 18:08 17:46 Neuro: Level of Consciousness is awake, alert, obeys commands, Oriented to [facility] person, situation, Speech is slurred, at baseline from previous CVA. 18:08 17:46 Cardiovascular: Patient's skin is warm and dry. [facility] 18:08 17:46 Respiratory: Airway is patent Respiratory effort is even, unlabored, Respiratory [facility] pattern is regular, symmetrical, 18: 17:46 GI: No signs and/or symptoms were reported involving the gastrointestinal system. [facility] 18: 17:46 : No signs and/or symptoms were reported regarding the genitourinary system. [facility] 18: 17:46 Derm: Skin is intact, is healthy with good turgor, Skin is pink, warm \T\ dry. [facility] 18: 17:46 Arm band placed on Patient placed in an exam room, [facility] 18: 17:48 Patient has correct armband on for positive identification. Bed in low position. ut1 Call light in reach. Side rails up X2. 18: 17:48 Provided Education on: POC. Verbalized understanding.. [facility] 18: 17:48 Client placed on continuous cardiac and pulse oximetry monitoring. NIBP [facility] monitoring applied. Pulse ox on. NIBP on. : 17:48 General: See triage assessment.. [facility] 18: 17:48 VIS not applicable for this client. [facility] 18:10 17:41 Patient arrived in ED. [facility] 18: 17:48 [facility] ED Fall Risk Assessment (Adult) History of falling in the last 3 months, ut1 including since admission No falls in past 3 months (0 pts) Confusion or Disorientation No (0 pts) Intoxicated or Sedated No (0 pts) Impaired Gait No (0 pts) Mobility Assist Device Used No (0 pt) Altered Elimination No (0 pt) Score/Fall Risk Level 0 - 2 = Low Risk Maintained a safe environment, Provided non-skid footwear, Hourly rounding (assess needs \T\ fall precautionary measures) done, 18: 17:48 Abuse screen: Denies threats or abuse. [facility] 18: 17:48 Nutritional screening: No deficits noted. [facility] 18: 17:48 Tuberculosis screening: No symptoms or risk factors identified. [facility] 18:10 17:48 No provider procedures requiring assistance completed. [facility]
--- NOTE | 2024-11-06 18:47 | EDPHYS ---
Physician Documentation [facility] Name: Gregory Dumont Age: 64 yrs Sex: Male : 1960 Arrival Date: 11/06/2024 Time: 17:36 Bed 15 Private MD: ED Physician Steven Thomas HPI: 11/06 18:17 This 64 yrs old Male presents to ER via EMS with complaints of Right Foot dr5 Pain. 18:17 The patient presents with pain, that is chronic. The complaints affect the lateral dr5 aspect of right foot, right heel, medial aspect of right foot and dorsum of right foot. Onset: The symptoms/episode began/occurred 5 day(s) ago. Patient is a 64-year-old male with history of alcoholism, bipolar disorder, hypertension, hyperlipidemia, hepatitis coming in with continued right foot pain after he was seen 5 days ago. Patient reports pain is to his right heel. Patient came in by EMS wearing postop shoe.. Historical: - Allergies: 17:46 No Known Allergies; ss - PMHx: 17:46 adhd; Alcoholism; Anxiety; Bipolar disorder; Hepatitis; Hyperlipidemia; Hypertensive ss disorder; kidney disease; strokes x 3; - PSHx: 17:46 colon resection; knee replacements; ss - Immunization history:: Adult Immunizations up to date. - Infectious Disease History:: Denies. - Social history:: Smoking status: Patient reports the use of cigarette tobacco products, smokes one-half pack cigarettes per day. ROS: 18:17 Constitutional: as per hpi dr5 Exam: 18:17 Constitutional: This is a well developed, well nourished patient who is awake, alert, dr5 and in no acute distress. Head/Face: Normocephalic, atraumatic. Eyes: Pupils equal round and reactive to light, extra-ocular motions intact. Lids and lashes normal. Conjunctiva and sclera are non-icteric and not injected. Cornea within normal limits. Periorbital areas with no swelling, redness, or edema. Neck: Trachea midline, no thyromegaly or masses palpated, and no cervical lymphadenopathy. Supple, full range of motion without nuchal rigidity, or vertebral point tenderness. No Meningismus. Chest/axilla: Normal chest wall appearance and motion. Nontender with no deformity. No lesions are appreciated. Cardiovascular: Regular rate and rhythm with a normal S1 and S2. Normal PMI, no JVD. No pulse deficits. Respiratory: Lungs have equal breath sounds bilaterally, clear to auscultation. No rales, rhonchi or wheezes noted. No increased work of breathing, no retractions or nasal flaring. Back: No spinal tenderness. No costovertebral tenderness. Full range of motion. Skin: Warm, dry with normal turgor. Normal color with no rashes, no lesions, and no evidence of cellulitis. Neuro: Awake and alert, GCS 15, oriented to person, place, time, and situation. Cranial nerves II-XII grossly intact. Motor strength 5/5 in all extremities. Sensory grossly intact. Cerebellar exam normal. Normal gait. 18:17 Musculoskeletal/extremity: Extremities: noted in the right heel: pain, ROM: full active range of motion, Circulation is intact in all extremities. Sensation intact. Vital Signs: 17:45 BP 136 / 84; Pulse 71; Resp 16; Temp 97.9; Pulse Ox 97% ; Weight 83.46 kg; Height 5 ft. me1 11 in. ; Pain 8/10; 18:00 BP 125 / 78; Pulse 75; Resp 16; Pulse Ox 94% ; me1 19:00 BP 146 / 81; Pulse 69; Resp 15; Pulse Ox 97% ; me1 20:00 BP 118 / 81; Pulse 71; Resp 16; Pulse Ox 96% ; me1 21:00 BP 136 / 84; Pulse 76; Resp 16; Pulse Ox 96% ; me1 22:00 BP 132 / 72; Pulse 57; Resp 16; Temp 98.4; Pulse Ox 94% ; me1 17:45 Body Mass Index 25.66 (83.46 kg, 180.34 cm) me1 17:45 Pain Scale: Adult me1 MDM: 17:42 Medical Screening Exam initiated dr5 18:41 ED course: Patient found to have healing nondisplaced toe fracture. Patient reports dr5 that the snf is not giving him his medication for pain. Recommended patient continued wearing postop shoe. Will write patient for anti-inflammatories to take to help with pain. 30 mg of Toradol IM were given in ER. X-ray report was printed and put with packet.. 18:50 Differential diagnosis: dislocation, open fracture, closed fracture, contusion, dr5 abrasion. Data reviewed: vital signs, nurses notes, radiologic studies, plain films. I considered the following discharge prescriptions or medication management in the emergency department Medications were administered in the Emergency Department. See MAR. Care significantly affected by the following chronic conditions: Hypertension. Care significantly affected by the following Social Determinants of Health: Poor access to healthcare and/or lack of insurance, Poor access to transportation, Problems related to employment. Counseling: I had a detailed discussion with the patient and/or guardian regarding the historical points, exam findings, and any diagnostic results supporting the discharge/admit diagnosis, the presence of at least one elevated blood pressure reading (>120/80) during this emergency department visit, radiology results, the need for outpatient follow up, for definitive care, a family practitioner, a orthopedic surgeon, to return to the emergency department if symptoms worsen or persist or if there are any questions or concerns that arise at home. Medication response: Toradol markedly relieved the patient's pain. 11/06 18:08 Order name: Foot Right 3 View XRAY; Complete Time: 18:37 dr5 Administered Medications: 18:51 Drug: Ketorolac IM 30 mg IM once Route: IM; Site: right deltoid; me1 18:51 Follow up: Response: No adverse reaction; Pain is decreased me1 19:58 Follow up: Response: No adverse reaction; Pain is decreased me1 Disposition Summary: 11/06/24 18:46 Discharge Ordered Notes: Location: Home dr5 Condition: Stable dr5 Diagnosis - Stress fracture, left foot, subsequent encounter for fracture with routine healing dr5 Followup: dr5 - With: Emergency Department - When: As needed - Reason: Worsening of condition Followup: dr5 - With: Private Physician - When: 1 - 2 days - Reason: Wound Recheck, If symptoms return, Continuance of care Discharge Instructions: - Discharge Summary Sheet dr5 - Stress Fracture dr5 Forms: - Medication Reconciliation Form dr5 - Patient Portal Instructions dr5 - Leadership Thank You Letter dr5 Prescriptions: - Ibuprofen 800 mg Oral Tablet - take 1 tablet ORAL route every 8 hours As needed take with food; 30 tablet; dr5 Refills: 0, Product Selection Permitted Signatures: Dispatcher [employer] Aura Ramires RN RN Shama Gibson RN RN me1 Velasquez Peguero, PRINT COLOR MATCHER-C PRINT COLOR MATCHER-Cdr5 Corrections: (The following items were deleted from the chart) 18:09 18:08 Foot Right 3 View+RAD.RAD.BRZ ordered. EDMS EDMS
[2024-11-06] MEDS ORDERED: KETOROLAC 30 MG/ML INJ ONE (18:48)
[2024-11-06 22:28] VITALS: BP 132/72; TEMP 98.4; O2SAT 94
== END 2024-11-06 22:12 | disposition home or self-care (01) ==
LOC: ER 17:36
DX: M84.375D Stress fracture, left foot, subsequent encounter for fracture with routine healing (principal); F31.9 Bipolar disorder, unspecified; I10 Essential (primary) hypertension; E78.5 Hyperlipidemia, unspecified; K75.9 Inflammatory liver disease, unspecified; F10.20 Alcohol dependence, uncomplicated; F17.210 Nicotine dependence, cigarettes, uncomplicated; X58.XXXA Exposure to other specified factors, initial encounter
CPT/HCPCS: 96372; 99284

== ENCOUNTER 2024-11-15 17:41 | Emergency (ER) | payer OTHER ==
[2024-11-15] MEDS ORDERED: KETOROLAC 30 MG/ML INJ ONE (19:09)
[2024-11-15] MEDS ORDERED: LIDOCAINE 4% PATCH ONE (19:10)
--- NOTE | 2024-11-15 19:44 | RAD REPORT ---
Exam:Foot Right 3 View CLINICAL HISTORY: Right foot pain FINDINGS: Marked periosteal deposition is present about a subacute fracture second metatarsal shaft. No dislocation
--- NOTE | 2024-11-15 19:54 | ER ---
Nurse's Notes [facility] Name: Gregory Dumont Age: 64 yrs Sex: Male : 1960 Arrival Date: 11/15/2024 Time: 17:41 Bed 20 Private MD: Diagnosis: Pain in right foot Presentation: 11/15 17:56 Chief complaint: EMS states: Toned out to [place] for right foot pain, recent visit [facility] to ED for same thing with dx of stress fracture. Coronavirus screen: At this time, the client does not indicate any symptoms associated with coronavirus-19. Ebola Screen: No symptoms or risks identified at this time. Initial Sepsis Screen: Does the patient meet any 2 criteria? No. Patient's initial sepsis screen is negative. Does the patient have a suspected source of infection? No. Patient's initial sepsis screen is negative. Risk Assessment: Do you want to hurt yourself or someone else? Patient reports no desire to harm self or others. Onset of symptoms is unknown. 17:56 Method Of Arrival: Ambulatory [facility] 17:56 Acuity: MARION 4 [facility] 17:58 Transition of care: patient was received from another setting of care (long-term care [facility] facility), [place]. Triage Assessment: 17:57 General: Appears in no apparent distress. uncomfortable, unkempt, Behavior is calm, jl7 cooperative. Pain: Complains of pain in right foot. Historical: - Allergies: 17:57 No Known Allergies; jl7 - PMHx: 17:57 adhd; Alcoholism; Anxiety; Bipolar disorder; Hepatitis; Hyperlipidemia; Hypertensive jl7 disorder; kidney disease; strokes x 3; - PSHx: 17:57 colon resection; knee replacements; jl7 - Immunization history:: Adult Immunizations unknown. - Social history:: Smoking status: unknown. Screenin:00 Abuse screen: Denies threats or abuse. Denies injuries from another. ha1 19:00 [facility] ED Fall Risk Assessment (Adult) History of falling in the last 3 months, ha1 including since admission No falls in past 3 months (0 pts) Confusion or Disorientation No (0 pts) Intoxicated or Sedated No (0 pts) Impaired Gait Yes (1 pt) Mobility Assist Device Used Yes (1 pt) Altered Elimination No (0 pt) Score/Fall Risk Level 3 or more points = High Risk Oriented to surroundings, Maintained a safe environment, Educated pt \T\ family on fall prevention, incl call for assistance when getting out of bed, Hourly rounding (assess needs \T\ fall precautionary measures) done. Nutritional screening: No deficits noted. Tuberculosis screening: No symptoms or risk factors identified. Assessment: 19:17 General: Appears uncomfortable, Behavior is calm, cooperative. Pain: Complains of pain ha1 in right foot Pain does not radiate. Pain currently is 8 out of 10 on a pain scale. Quality of pain is described as throbbing. Neuro: Level of Consciousness is awake, alert, obeys commands, Oriented to person, place, time, situation. Cardiovascular: Capillary refill < 3 seconds Patient's skin is warm and dry. Respiratory: Airway is patent Respiratory effort is even, unlabored, Respiratory pattern is regular, symmetrical. 20:00 Reassessment: Patient and/or family updated on plan of care and expected duration. Pain ha1 level reassessed. Patient is alert, oriented x 3, equal unlabored respirations, skin warm/dry/pink. 20:32 Reassessment: Transportation arrangement will be made by [facility], spoke to [facility] nurse DIANA Alvarez. Vital Signs: 17:56 BP 154 / 100; Pulse 74; Resp 17; Temp 97.1; Pulse Ox 97% ; jl7 19:00 BP 163 / 93; Pulse 77; Resp 18 S; Pulse Ox 97% on R/A; ha1 20:00 BP 137 / 76; Pulse 64; Resp 17 S; Pulse Ox 96% on R/A; ha1 ED Course: 17:44 Patient arrived in ED. em1 17:52 Fabiola Hurley PA-C is PHCP. sb4 17:52 Aleks Stanley MD is Attending Physician. sb4 17:57 Triage completed. jl7 17:57 Arm band placed on right wrist. jl7 19:00 Patient has correct armband on for positive identification. Bed in low position. Call ha1 light in reach. Side rails up X 1. 19:00 Provided Education on: plan of care . ha1 19:07 Cinthia Lovelace, RN is Primary Nurse. db 19:40 Foot Right 3 View XRAY In Process Unspecified. EDMS 19:53 Juan Hyde DPM is Referral Physician. sb4 20:22 Mery Rader, RN is Primary Nurse. ha1 20:25 No provider procedures requiring assistance completed. Patient did not have IV access ha1 during this emergency room visit. Administered Medications: 19:15 Drug: Lidoderm Topical Patch 5 % (700 mg/patch) 1 patches Topical once; leave on for 12 ha1 hours; cover most painful area; may cut into smaller pieces Route: Topical; Site: affected area; 19:50 Follow up: Response: No adverse reaction; Marked relief of symptoms ha1 19:16 Drug: Ketorolac IM 30 mg IM once Route: IM; Site: right deltoid; ha1 19:50 Follow up: Response: No adverse reaction; Marked relief of symptoms; Pain is decreased ha1 Medication: 20:26 VIS not applicable for this client. ha1 Outcome: 19:53 Discharge ordered by . sb4 20:50 Patient left the ED. ha1 20:50 Condition: stable 20:50 Discharged to shelter. Report called to CONNIE ALVAREZ ha1 20:50 Discharge instructions given to shelter, EMS, PATIENT WAS TRANSFERRED BY [facility] Instructed on discharge instructions, follow up and referral plans. Demonstrated understanding of instructions, follow-up care, Signatures: Dispatcher [employer] EDMS Mio Donovan em1 Sherman Brown RN RN jl7 Mery Rader RN RN 1 Cinthia Lovelace RN RN db Brown, Sophia, PA-C PAScotty sb4 Corrections: (The following items were deleted from the chart) 22:32 20:25 Discharged to home ambulatory, ha1 ha1 22:32 20:25 Condition: stable ha1 ha1 22:32 20:25 Discharge instructions given to patient, Instructed on discharge instructions, ha1 follow up and referral plans. Demonstrated understanding of instructions, follow-up care, ha1 22:32 20:27 Patient left the ED. ha1 ha1
--- NOTE | 2024-11-15 19:54 | EDPHYS ---
Physician Documentation [facility] Name: Gregory Dumont Age: 64 yrs Sex: Male : 1960 Arrival Date: 11/15/2024 Time: 17:41 Bed 20 Private MD: ED Physician Aleks Stanley HPI: 11/15 19:07 This 64 yrs old Male presents to ER via Ambulatory with complaints of Foot Pain. sb4 19:07 patient reports right heel pain. has been having pain in the right foot for a few weeks sb4 now, has been seen for this 2 times within the past 10 days. was initially diagnosed with a stress fracture of his second metatarsal and placed in an ortho shoe. [facility] states that they have been giving him his scheduled tylenol #3, regular tylenol, ibuprofen, and biofreeze topical. EMS was called because he has continued to complain of pain. Historical: - Allergies: 17:57 No Known Allergies; jl7 - PMHx: 17:57 adhd; Alcoholism; Anxiety; Bipolar disorder; Hepatitis; Hyperlipidemia; Hypertensive jl7 disorder; kidney disease; strokes x 3; - PSHx: 17:57 colon resection; knee replacements; jl7 - Immunization history:: Adult Immunizations unknown. - Social history:: Smoking status: unknown. ROS: 19:07 Constitutional: Negative for fever, chills, and weight loss, sb4 19:07 MS/extremity: Positive for pain, of the medial aspect of right heel, 19:07 All other systems are negative, Exam: 19:07 Head/Face: Normocephalic, atraumatic. Eyes: Extra-ocular motions intact. Periorbital sb4 areas with no swelling, redness, or edema. ENT: Mucous membranes moist. Skin: Warm, dry with normal turgor. Normal color with no rashes, no lesions, and no evidence of cellulitis. 19:07 Constitutional: The patient appears in no acute distress, alert, awake, Vital Signs: 17:56 BP 154 / 100; Pulse 74; Resp 17; Temp 97.1; Pulse Ox 97% ; jl7 19:00 BP 163 / 93; Pulse 77; Resp 18 S; Pulse Ox 97% on R/A; ha1 20:00 BP 137 / 76; Pulse 64; Resp 17 S; Pulse Ox 96% on R/A; ha1 MDM: 17:54 Medical Screening Exam initiated sb4 19:52 Data reviewed: vital signs, nurses notes, radiologic studies, and as a result, I will sb4 discharge patient. Counseling: I had a detailed discussion with the patient and/or guardian regarding the historical points, exam findings, and any diagnostic results supporting the discharge/admit diagnosis, radiology results, the need for outpatient follow up, for definitive care, to return to the emergency department if symptoms worsen or persist or if there are any questions or concerns that arise at home. 11/15 18:40 Order name: Foot Right 3 View XRAY; Complete Time: 19:52 sb4 Administered Medications: 19:15 Drug: Lidoderm Topical Patch 5 % (700 mg/patch) 1 patches Topical once; leave on for 12 ha1 hours; cover most painful area; may cut into smaller pieces Route: Topical; Site: affected area; 19:50 Follow up: Response: No adverse reaction; Marked relief of symptoms ha1 19:16 Drug: Ketorolac IM 30 mg IM once Route: IM; Site: right deltoid; ha1 19:50 Follow up: Response: No adverse reaction; Marked relief of symptoms; Pain is decreased ha1 Disposition: 20:29 Co-signature as Attending Physician, Aleks Stanley MD I reviewed the patient's care rt provided by the Advanced Practice Provider and agree with the diagnosis and treatment plan. Disposition Summary: 11/15/24 19:53 Discharge Ordered Notes: Location: Home sb4 Problem: an ongoing problem sb4 Symptoms: have improved sb4 Condition: Stable sb4 Diagnosis - Pain in right foot sb4 Followup: sb4 - With: Juan Hyde DPM - When: As needed - Reason: Recheck today's complaints, Re-evaluation by your physician Discharge Instructions: - Discharge Summary Sheet sb4 - Foot Pain sb4 Forms: - Patient Portal Instructions sb4 - Leadership Thank You Letter sb4 Signatures: Dispatcher [employer] Sherman Haji RN RN jl7 Mery Rader RN RN ha1 Fabiola Hurley, PAWingC PAScotty sb4 Aleks Stanley MD MD rt
[2024-11-16 03:53] VITALS: TEMP 97.1
[2024-11-16 03:57] VITALS: BP 137/76; O2SAT 96
== END 2024-11-15 20:27 | disposition home or self-care (01) ==
LOC: ER 17:41
DX: M79.671 Pain in right foot (principal)
CPT/HCPCS: 73630; 96372; 99284; J2003